=== PATIENT | male | born 1970 | race Caucasian/White ===

== ENCOUNTER → 2016-05-28 | Outpatient (CLI) | payer MEDICARE, OTHER | END | disposition home or self-care (01) | LOC: LABPRL 10:00 | PROVIDERS: ATTEND Nurse Practitioner Family | DX: R19.7 Diarrhea, unspecified (principal) | CPT/HCPCS: 80299; 87324; 87328; 87329 ==

== ENCOUNTER 2016-12-18 13:32 | Inpatient (IN) | payer MEDICARE, OTHER ==
[2016-12-18] MEDS ORDERED: MORPHINE SULFATE 4 MG/ML SYRINGE IVP STA (14:18)
[2016-12-18] MEDS ORDERED: ASPIRIN 325 MG TAB PO STA (14:18)
[2016-12-18] MEDS ORDERED: ONDANSETRON 4 MG/2 ML VIAL IVP STA (14:19)
--- NOTE | 2016-12-18 15:08 | XR ---
EXAMINATION TYPE: XR chest 2V DATE OF EXAM: 12/18/2016 COMPARISON: Prior chest x-ray 09/27/2015 HISTORY: Epigastric abdominal pain TECHNIQUE: Frontal and lateral views of the chest are obtained. FINDINGS: There is no focal air space opacity, pleural effusion, or pneumothorax seen. The cardiac silhouette size is within normal limits. There is is thoracic cord stimulator in place. The osseous structures are intact. IMPRESSION: No acute cardiopulmonary process.
--- NOTE | 2016-12-18 15:10 | ED ---
Abdominal Pain HPI - General Chief Complaint: Abdominal Pain Stated Complaint: Weakness Source: EMS Mode of arrival: EMS Limitations: no limitations - History of Present Illness Initial Comments: 46-year-old male with past medical history of alcohol abuse and alcohol-induced pancreatitis presenting for evaluation of epigastric abdominal pain present over the last 2 days. He denies any radiation describes it as sharp and states his pain is 8 out of 10 he states he takes multiple medications for his baseline pain control however they have not been helpful. He states his last drink was 2 days ago and he usually has about 18 beers a day. When asked about why he stopped drinking he stated he just didn't feel like it. His withdrawal symptoms are usually just nausea, vomiting, and fatigue and denies any withdrawal induced seizures. - Related Data Home Medications Medication Instructions Recorded Confirmed Omeprazole [PriLOSEC] 20 mg PO DAILY 07/12/15 12/18/16 Aspirin EC [Ecotrin] 325 mg PO DAILY 09/27/15 12/18/16 Atorvastatin [Lipitor] 10 mg PO HS 09/27/15 12/18/16 Gabapentin [Neurontin] 300 mg PO TID 12/18/16 12/18/16 HYDROcodone/APAP 5-325MG [Flint 1 tab PO BID PRN 12/18/16 12/18/16 5-325] Tamsulosin HCl [Flomax] 0.4 mg PO DAILY 12/18/16 12/18/16 Previous Rx's Medication Instructions Recorded Folic Acid 1 mg PO DAILY #30 tablet 07/15/15 LORazepam [Ativan] 0.5 mg PO TID PRN #20 tab 07/15/15 Multivitamins, Thera [Multivitamin 1 tab PO DAILY #30 tablet 07/15/15 (formulary)] Allergies Allergy/AdvReac Type Severity Reaction Status Date / Time No Known Allergies Allergy Verified 12/18/16 13:39 Review of Systems ROS Statement: Those systems with pertinent positive or pertinent negative responses have been documented in the HPI. ROS Other: All systems not noted in ROS Statement are negative. Constitutional: Denies: fever, chills Eyes: Denies: eye pain, eye discharge ENT: Denies: ear pain, throat pain Respiratory: Denies: cough, dyspnea Cardiovascular: Denies: chest pain, palpitations Endocrine: Reports: fatigue. Denies: polydipsia, polyuria Gastrointestinal: Reports: abdominal pain, nausea. Denies: vomiting, diarrhea, constipation, hematemesis, melena, hematochezia Genitourinary: Denies: urgency, dysuria, frequency Musculoskeletal: Denies: back pain, arthralgia, myalgia Skin: Denies: rash, lesions Neurological: Denies: headache, weakness Psychiatric: Denies: anxiety, depression Hematological/Lymphatic: Denies: easy bleeding, easy bruising Past Medical History Past Medical History: GERD/Reflux, Pneumonia Additional Past Medical History / Comment(s): 07/12/15 PT presented to [facility] ER with past 3-4 days very lethargic and slow to speak and occasional slurred speech. Pt has also been confused. Family states he is an alcoholic and drinks daily. Pt states he is also having chest pain once in awhile but none on presentation. He also had N/V/D 2 weeks ago that lasted 5 days. He is admitted with clinical impression of AMS, hx ETOH abuse, hyponatremia. Other HX: KIDNEY STONES, back pain History of Any Multi-Drug Resistant Organisms: None Reported Past Surgical History: Back Surgery Additional Past Surgical History / Comment(s): bronchoscopy, BACK surgery with TITANIUM PLATES MILTON and CAGES, KIDNEY STONES removed per pt, SPINAL CORD STIMULATOR, ISMAEL KNEE ARTHROSCOPIES, PINKY FINGER RT HAND REATTATCHED Past Anesthesia/Blood Transfusion Reactions: No Reported Reaction Past Psychological History: Anxiety, Depression Smoking Status: Current every day smoker Past Alcohol Use History: Daily, Heavy Past Drug Use History: None Reported - Past Family History Father Family Medical History: Diabetes Mellitus Additional Family Medical History / Comment(s): Father is alive and in custodial. Mother Family Medical History: Dementia, Hyperlipidemia, Hypertension Additional Family Medical History / Comment(s): Mother is living. General Exam Limitations: no limitations General appearance: alert, in no apparent distress Head exam: Present: atraumatic, normocephalic, normal inspection Eye exam: Present: normal appearance, PERRL, EOMI. Absent: scleral icterus, conjunctival injection, periorbital swelling ENT exam: Present: normal exam, mucous membranes moist Neck exam: Present: normal inspection. Absent: tenderness, meningismus, lymphadenopathy Respiratory exam: Present: normal lung sounds bilaterally. Absent: respiratory distress, wheezes, rales, rhonchi, stridor Cardiovascular Exam: Present: regular rate, normal rhythm, normal heart sounds. Absent: systolic murmur, diastolic murmur, rubs, gallop, clicks GI/Abdominal exam: Present: soft, tenderness, normal bowel sounds. Absent: distended, guarding, rebound, rigid Rectal exam: Present: deferred Extremities exam: Present: normal inspection, full ROM, normal capillary refill. Absent: tenderness, pedal edema, joint swelling, calf tenderness Back exam: Present: normal inspection Neurological exam: Present: alert, oriented X3, CN II-XII intact Psychiatric exam: Present: normal affect, normal mood Skin exam: Present: warm, dry, intact, normal color. Absent: rash Course Vital Signs 12/18/16 12/18/16 12/18/16 13:34 16:36 17:30 Temperature 98.0 F 97.9 F 98.0 F Pulse Rate 71 72 75 Respiratory 16 18 16 Rate Blood Pressure 144/95 149/88 147/99 O2 Sat by Pulse 100 100 100 Oximetry Medical Decision Making - Medical Decision Making 46 yo male with pmh of alcohol abuse (18 beers/day) and alcohol induced pancreatitis presenting for evaluation of epigastric abdominal pain for the last two days that is consistent with previous pancreatitis. Last EtOH drink was 2 days ago and he believes he is going into withdrawals. Abdomen is soft and non-peritoneal without guarding, rebound, or rigidity. Tenderness to epigastric area. Remained of exam benign. Will obtain labs, ekg, cxr, and provide IVF, ASA, and pain control. Labs significant for chronic pancreatitis exacerbation, UTI, and transaminitis. Pt was reevaluated and continued to feel the same. He was informed of results and agreed with plan to admit. Discussed pt with Dr. Barragan who accepted the admission and agreed with plan of care. Admission order placed and bed request submitted. - Lab Data Result diagrams: 12/18/16 15:11 12/18/16 15:11 Lab Results 12/18/16 12/18/16 12/18/16 Range/Units 15:11 15:11 15:11 WBC 7.0 (3.8-10.6) k/uL RBC 4.27 L (4.30-5.90) m/uL Hgb 14.4 (13.0-17.5) gm/dL Hct 43.9 (39.0-53.0) % MCV 102.8 H (80.0-100.0) fL MCH 33.8 (25.0-35.0) pg MCHC 32.9 (31.0-37.0) g/dL RDW 14.1 (11.5-15.5) % Plt Count 312 (150-450) k/uL Neutrophils % 82 % Lymphocytes % 11 % Monocytes % 5 % Eosinophils % 1 % Basophils % 1 % Neutrophils # 5.7 (1.3-7.7) k/uL Lymphocytes # 0.8 L (1.0-4.8) k/uL Monocytes # 0.3 (0-1.0) k/uL Eosinophils # 0.1 (0-0.7) k/uL Basophils # 0.1 (0-0.2) k/uL Macrocytosis Slight Sodium 135 L (137-145) mmol/L Potassium 3.9 (3.5-5.1) mmol/L Chloride 102 (98-107) mmol/L Carbon Dioxide 26 (22-30) mmol/L Anion Gap 7 mmol/L BUN 5 L (9-20) mg/dL Creatinine 0.77 (0.66-1.25) mg/dL Est GFR (MDRD) Af Amer >60 (>60 ml/min/1.73 sqM) Est GFR (MDRD) Non-Af >60 (>60 ml/min/1.73 sqM) Glucose 83 (74-99) mg/dL Plasma Lactic Acid Bandar 1.2 (0.7-2.0) mmol/L Calcium 9.0 (8.4-10.2) mg/dL Total Bilirubin 1.1 (0.2-1.3) mg/dL AST 174 H (17-59) U/L ALT 108 H (21-72) U/L Alkaline Phosphatase 139 H (38-126) U/L Troponin I (0.000-0.034) ng/mL NT-Pro-B Natriuret Pep pg/mL Total Protein 6.3 (6.3-8.2) g/dL Albumin 3.1 L (3.5-5.0) g/dL Lipase 662 H (23-300) U/L Urine Color Urine Appearance (Clear) Urine pH (5.0-8.0) Ur Specific [place] (1.001-1.035) Urine Protein (Negative) Urine Glucose (UA) (Negative) Urine Ketones (Negative) Urine Blood (Negative) Urine Nitrite (Negative) Urine Bilirubin (Negative) Urine Urobilinogen (<2.0) mg/dL Ur Leukocyte Esterase (Negative) Urine RBC (0-5) /hpf Urine WBC (0-5) /hpf Urine Yeast (Budding) (None) /hpf 12/18/16 12/18/16 12/18/16 Range/Units 15:11 15:11 15:17 WBC (3.8-10.6) k/uL RBC (4.30-5.90) m/uL Hgb (13.0-17.5) gm/dL Hct (39.0-53.0) % MCV (80.0-100.0) fL MCH (25.0-35.0) pg MCHC (31.0-37.0) g/dL RDW (11.5-15.5) % Plt Count (150-450) k/uL Neutrophils % % Lymphocytes % % Monocytes % % Eosinophils % % Basophils % % Neutrophils # (1.3-7.7) k/uL Lymphocytes # (1.0-4.8) k/uL Monocytes # (0-1.0) k/uL Eosinophils # (0-0.7) k/uL Basophils # (0-0.2) k/uL Macrocytosis Sodium (137-145) mmol/L Potassium (3.5-5.1) mmol/L Chloride (98-107) mmol/L Carbon Dioxide (22-30) mmol/L Anion Gap mmol/L BUN (9-20) mg/dL Creatinine (0.66-1.25) mg/dL Est GFR (MDRD) Af Amer (>60 ml/min/1.73 sqM) Est GFR (MDRD) Non-Af (>60 ml/min/1.73 sqM) Glucose (74-99) mg/dL Plasma Lactic Acid Bandar (0.7-2.0) mmol/L Calcium (8.4-10.2) mg/dL Total Bilirubin (0.2-1.3) mg/dL AST (17-59) U/L ALT (21-72) U/L Alkaline Phosphatase (38-126) U/L Troponin I <0.012 (0.000-0.034) ng/mL NT-Pro-B Natriuret Pep 205 pg/mL Total Protein (6.3-8.2) g/dL Albumin (3.5-5.0) g/dL Lipase (23-300) U/L Urine Color Yellow Urine Appearance Cloudy (Clear) Urine pH 6.5 (5.0-8.0) Ur Specific [place] 1.007 (1.001-1.035) Urine Protein Trace H (Negative) Urine Glucose (UA) Negative (Negative) Urine Ketones Negative (Negative) Urine Blood Trace H (Negative) Urine Nitrite Negative (Negative) Urine Bilirubin Negative (Negative) Urine Urobilinogen 2.0 (<2.0) mg/dL Ur Leukocyte Esterase Large H (Negative) Urine RBC 8 H (0-5) /hpf Urine WBC 21 H (0-5) /hpf Urine Yeast (Budding) Many H (None) /hpf 12/18/16 15:08 EKG shows normal sinus rhythm with a ventricular rate of 79, JAC 148, QRS 76, QT /QTC 418/479. Disposition Clinical Impression: Chronic pancreatitis, Abdominal pain, UTI (urinary tract infection), Transaminitis Disposition: ADMITTED IP TO THIS [facility] Decision to Admit Reason: Admit from EC Decision Date: 12/18/16 Decision Time: 16:06
[2016-12-18 15:26] LABS: Basophils # (A) 0.1 k/uL (0-0.2); Basophils % (A) 1 %; CH 33.7; CHCM 32.9; Eosinophils # (A) 0.1 k/uL (0-0.7); Eosinophils % (A) 1 %; HCT 43.9 % (39.0-53.0); HDW 1.98; HGB 14.4 gm/dL (13.0-17.5); Luc # (Auto) 0.08; Luc % (Auto) 1; Lymphocytes # (A) 0.8 k/uL (1.0-4.8); Lymphocytes % (A) 11 %; MCH 33.8 pg (25.0-35.0); MCHC 32.9 g/dL (31.0-37.0); MCV 102.8 fL (80.0-100.0); Macrocytosis Slight; Mean Platelet Volume 7.4; Monocytes # (A) 0.3 k/uL (0-1.0); Monocytes % (A) 5 %; Neutrophils # (A) 5.7 k/uL (1.3-7.7); Neutrophils % (A) 82 %; RBC 4.27 m/uL (4.30-5.90); RDW 14.1 % (11.5-15.5); WBC (Perox) 7.35
[2016-12-18 15:33] LABS: ALT 108 U/L (21-72); AST 174 U/L (17-59); Alkaline Phosphatase 139 U/L (38-126); Anion Gap 7 mmol/L; Blood Urea Nitrogen 5 mg/dL (9-20); Carbon Dioxide 26 mmol/L (22-30); Chloride 102 mmol/L (98-107); Glucose 83 mg/dL (74-99); Non-African American GFR(MDRD) >60 (>60 ml/min/1.73 sqM); Potassium 3.9 mmol/L (3.5-5.1); Sodium 135 mmol/L (137-145); Total Bilirubin 1.1 mg/dL (0.2-1.3); Total Protein 6.3 g/dL (6.3-8.2)
[2016-12-18 15:40] LABS: Appearance,Urine Cloudy (Clear); Bilirubin,Urine Negative (Negative); Glucose,Urine (UA) Negative (Negative); Ketones,Urine Negative (Negative); Leukocyte Esterase,Urine Large (Negative); Nitrite,Urine Negative (Negative); PH, Urine 6.5 (5.0-8.0); Particle Count 4901; Protein,Urine Trace (Negative); RBC,Urine 8 /hpf (0-5); Specific Gravity,Urine 1.007 (1.001-1.035); UA Billing (MACRO vs. MICRO) MICRO; WBC,Urine 21 /hpf (0-5)
[2016-12-18] MEDS ORDERED: NALOXONE 0.4 MG/ML 1 ML VIAL IV PRN (16:01)
[2016-12-18] MEDS ORDERED: MORPHINE SULFATE 4 MG/ML SYRINGE IV PRN (16:01)
--- NOTE | 2016-12-18 16:55 | US ---
EXAMINATION TYPE: US gallbladder DATE OF EXAM: 12/18/2016 COMPARISON: NONE CLINICAL HISTORY: Pain. Nausea and vomitting EXAM MEASUREMENTS: Liver Length: 16.1 cm Gallbladder Wall: 0.28 cm CBD: 0.60 cm Right Kidney: 10.6 x 5.6 x 4.2 cm Exam limitations due to patient barrel chested IMPRESSION: No sonographic evidence of acute cholecystitis.
[2016-12-18] MEDS: SODIUM CHLORIDE 0.9% 1,000 ML IV SCH ×2 (17:26→23:15)
[2016-12-18] MEDS ORDERED: ALPRAZolam 0.25 MG TAB PO PRN (18:23)
[2016-12-18] MEDS ORDERED: PNEUMONIA PROTOCOL UTILIZED 1 EACH MISC PO ONE (18:23)
[2016-12-18] MEDS ORDERED: LORazepam 2 MG/ML SYRINGE IV PRN ×2 (18:37)
[2016-12-18] MEDS: THIAMINE 100 MG TAB PO SCH (18:58)
[2016-12-18] MEDS: traZODone HCL 50 MG TAB PO SCH (19:58)
[2016-12-18] MEDS: HYDROmorphone 1 MG/ML 1 ML SYRINGE IVP PRN (19:58)
[2016-12-18] MEDS: HEPARIN SODIUM,PORCINE 5,000 UNIT/ML 1 ML VIAL SQ SCH (19:58)
[2016-12-18] MEDS: GABAPENTIN 300 MG CAP PO SCH (20:45)
[2016-12-18] MEDS: ATORVASTATIN 10 MG TAB PO SCH (20:45)
[2016-12-18] MEDS ORDERED: TEMAZEPAM 15 MG CAP PO PRN (21:00)
[2016-12-18 21:23] LABS: Amylase 45 U/L (30-110)
[2016-12-19] MEDS: HYDROmorphone 1 MG/ML 1 ML SYRINGE IVP PRN ×4 (03:09→21:52)
[2016-12-19 03:22] LABS: ALT 117 U/L (21-72); AST 156 U/L (17-59); Alkaline Phosphatase 114 U/L (38-126); Anion Gap 6 mmol/L; Blood Urea Nitrogen 5 mg/dL (9-20); Calcium 8.5 mg/dL (8.4-10.2); Carbon Dioxide 23 mmol/L (22-30); Chloride 107 mmol/L (98-107); Glucose 76 mg/dL (74-99); Magnesium 1.6 mg/dL (1.6-2.3); Non-African American GFR(MDRD) >60 (>60 ml/min/1.73 sqM); Potassium 3.7 mmol/L (3.5-5.1); Sodium 136 mmol/L (137-145); Total Protein 5.4 g/dL (6.3-8.2)
[2016-12-19 03:29] LABS: Basophils # (A) 0.1 k/uL (0-0.2); Basophils % (A) 1 %; CH 33.7; CHCM 33.2; Eosinophils # (A) 0.2 k/uL (0-0.7); Eosinophils % (A) 2 %; HCT 41.3 % (39.0-53.0); HDW 2.03; HGB 13.5 gm/dL (13.0-17.5); Luc # (Auto) 0.06; Luc % (Auto) 1; Lymphocytes # (A) 1.2 k/uL (1.0-4.8); Lymphocytes % (A) 18 %; MCH 33.3 pg (25.0-35.0); MCHC 32.7 g/dL (31.0-37.0); MCV 101.7 fL (80.0-100.0); Macrocytosis Slight; Mean Platelet Volume 6.7; Monocytes # (A) 0.4 k/uL (0-1.0); Monocytes % (A) 6 %; Neutrophils # (A) 4.7 k/uL (1.3-7.7); Neutrophils % (A) 73 %; RBC 4.06 m/uL (4.30-5.90); RDW 13.3 % (11.5-15.5); WBC 6.5 k/uL (3.8-10.6); WBC (Perox) 6.45
[2016-12-19] MEDS: HEPARIN SODIUM,PORCINE 5,000 UNIT/ML 1 ML VIAL SQ SCH ×2 (08:14→21:57)
[2016-12-19] MEDS: TAMSULOSIN 0.4 MG CAP.ER.24H PO SCH (08:14)
[2016-12-19] MEDS: NICOTINE 14MG/24HR PATCH TRANSDERM SCH (08:14)
[2016-12-19] MEDS: GABAPENTIN 300 MG CAP PO SCH ×3 (08:14→21:52)
[2016-12-19] MEDS: PANTOPRAZOLE 40 MG TABLET PO SCH (08:14)
[2016-12-19] MEDS: HYDROcodone/APAP 5-325MG 1 EACH TAB PO PRN ×2 (08:19→22:42)
[2016-12-19] MEDS: LORazepam 2 MG/ML SYRINGE IV PRN ×3 (10:53→23:28)
--- NOTE | 2016-12-19 10:56 | HP ---
DATE OF ADMISSION: 12/18/16 CHIEF COMPLAINT: Abdominal pain and weakness. HISTORY OF PRESENT ILLNESS: This 46-year-old gentleman with past medical history of multiple medical problems including GERD, history of pneumonia, history of anxiety, depression, being followed by Dr. Jones in the outpatient setting also had significant history of ETOH also. The patient apparently taking two drinks according to him and less than a pack of cigarettes per day. The patient is under [facility]. The patient is complaining of epigastric abdominal pain for the last two days. The pain is sharp and lasts about 8 to 10 and increasing respiration. The patient came to [facility] ER and admitted to the hospital for further evaluation and treatment. The patient had features of acute pancreatitis. There is no history of fever, rigors or chills. No history of headache, loss of consciousness or seizure. Gallbladder ultrasound was done which showed no sonographic evidence of acute cholecystitis. Past medical history of ETOH, GERD, pneumonia, history of pancreatitis. History DJD, history of anxiety, depression. Medications prior to admission are: Home medications are: 1. [place] 5 mg b.i.d. prn 2. Lipitor 10 mg q.h.s. 3. Flomax 0.4 mg daily. 4. Prilosec 20 mg daily. 5. Multivitamins one po daily. 6. Ativan 0.5 mg t.i.d. 7. Neurontin 300 mg t.i.d. 8. Folic acid 1 mg daily. 9. Ecotrin 320 mg po daily. ALLERGIES: None. FAMILY HISTORY: History of diabetes mellitus in the family. SOCIAL HISTORY: History of alcohol. History of smoking. REVIEW OF SYSTEMS: HEENT: No diminished vision. No diminished hearing. Cardiovascular system: No angina or palpitations. Respiratory: No cough, hemoptysis. GI: As mentioned earlier. : No dysuria. Nervous system: No numbness or weakness. Allergy/Immunology: No asthma or hayfever. Musculoskeletal: As mentioned earlier. Hematology/oncology: No history of anemia. Endocrine: No history of diabetes or hypothyroidism. Constitutional: As mentioned earlier. Dermatology: Negative. Rheumatology: Negative. Psychiatry: As mentioned earlier. PHYSICAL EXAMINATION: Alert and oriented times three. Pulse 72. Blood pressure 130/80. Respiratory rate 16, temperature 97.4 degrees. Pulse ox 100 % on room air. HEENT: Conjunctivae normal. NECK: No JVD. Cardiovascular: S1 , S2 muffled. Respiratory: Breath sounds diminished at the bases. No rhonchi and no crackles. Abdomen is soft. Mild diffuse tenderness. No mass. Legs: No edema. No swelling. Nervous system: Higher functions as mentioned earlier. Moves all four limbs. No focal deficits. Lymphatics: No lymph nodes palpable in the neck, axillae and groin. Skin: No ulcer, rash or bleeding. LABS: At this time shows WBC 7, hemoglobin 14.4, sodium 135. AST 175, ALT 108. Lipase 662. UA noted. ASSESSMENT: 1. Acute abdominal pain with acute pancreatitis. 2. History of ETOH. 3. Urinary tract infection. 4. Increased AST/ALT, alcohol hepatitis. 5. History of nicotine dependence. 6. History of gastroesophageal reflux disease. 7. History of pneumonia. 8. Back pain. 9. History of anxiety/depression. 10. 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 11. History of degenerative joint disease. RECOMMENDATIONS AND DISCUSSION: Continue the current medications. Continue symptomatic treatment. Otherwise, continue with pain medications. Repeat labs. I would also recommend empiric antibiotics. Prognosis guarded because of multiple complex medical issues. Discussed at length with the patient. I would also recommend social work consultation and porter sample case team also to continue to monitor as well. I would also recommend symptomatic treatment. ETOH and smoking cessation also has been recommended. Prognosis guarded. See orders for further details. MTDD
[2016-12-19] MEDS: SODIUM CHLORIDE 0.9% 1,000 ML IV SCH ×2 (11:30→17:30)
[2016-12-19] MEDS: MULTIVITAMINS, THERA 1 EACH TAB PO SCH (12:55)
[2016-12-19] MEDS: FOLIC ACID 1 MG TAB PO SCH (12:55)
[2016-12-19] MEDS: THIAMINE 100 MG TAB PO SCH ×2 (12:55→17:30)
[2016-12-19 13:29] VITALS: BMI 24.1
--- NOTE | 2016-12-19 16:59 | P.PN ---
Subjective Date of service 12/19/2016. Personal being dictated for Dr. Barragan. Interval history: This is a 46-year-old gentleman recently released from [facility], admitted with acute pancreatitis, and multiple other medical issues. Maintained on gentle IV fluid hydration,CIWA protocol. Pancreatic enzymes improving. LFTs slowly improving. Feels better today with no nausea, vomiting or diarrhea. Asking for diet advancement. Denies chest pain, palpitations or increasing shortness of breath. Objective - Vital Signs Vital signs: Vital Signs Temp 98.9 F 12/19/16 14:41 Pulse 101 H 12/19/16 14:41 Resp 16 12/19/16 14:41 BP 99/69 12/19/16 14:41 Pulse Ox 97 12/19/16 14:41 Intake & Output 12/18/16 12/19/16 12/19/16 18:59 06:59 18:59 Intake Total 0 598 Output Total 200 1400 300 Balance -200 -1400 298 Weight 65.771 kg 65.771 kg Intake: Oral 0 598 Output: Urine 200 1400 300 Straight 200 900 Other: Voiding Method Self-Catheterization Self-Catheterization Self-Catheterization # Voids 0 # Bowel Movements 0 - Exam PHYSICAL EXAM: VITAL SIGNS: As above GENERAL: [Sitting up in bed, no acute distress] HEENT: [Pupils equal conjunctiva normal.] NECK: [Supple, no JVD] RESPIRATORY EFFORT:[ Normal] LUNGS: [Bilateral bases diminished, no wheezes rhonchi or crackles] CARDIOVASCULAR[ regular S1 and S2, no murmurs rubs or gallops, no edema] GI: [Abdomen soft, nontender, positive bowel sounds.] PSYCH: [Alert and oriented -3, mood and affect normal.] NEURO: No focal deficits - Labs CBC & Chem 7: 12/19/16 02:54 12/19/16 02:54 Labs: Abnormal Lab Results - Last 24 Hours (Table) 12/18/16 12/19/16 12/19/16 Range/Units 21:01 02:54 02:54 RBC 4.06 L (4.30-5.90) m/uL MCV 101.7 H (80.0-100.0) fL Sodium 136 L (137-145) mmol/L BUN 5 L (9-20) mg/dL AST 156 H (17-59) U/L ALT 117 H (21-72) U/L Total Protein 5.4 L (6.3-8.2) g/dL Albumin 2.6 L (3.5-5.0) g/dL Lipase 439 H 458 H (23-300) U/L Assessment and Plan Plan: 1. Acute abdominal pain with acute pancreatitis. 2. [ History of EtOH abuse]. 3. [ UTI]. 4. [ Alcoholic hepatitis]. 5. [ Gastroesophageal reflux disease]. 6. [ Ongoing nicotine dependence]. Plan: Continue on current medication regime ,monitoring and symptomatic treatment. Maintain gentle IV fluid hydration, PPI. Diet advancement as ordered. Close monitoring of LFTs, lipase with repeat labs ordered for tomorrow. Family at bedside and discussed patient's need to return to [facility] once medically cleared for discharge. Smoking and alcohol cessation readdressed. Discharge planning in progress for the next 24-48 hrs. Further recommendations to follow. The impression and plan of care has been dictated as directed. : I performed a H&P examination of this patient and discussed the same with the dictator. I agree with the dictator's note. Any additional findings/opinions/ etc. will be noted.
[2016-12-19] MEDS: ATORVASTATIN 10 MG TAB PO SCH (21:52)
[2016-12-19] MEDS: traZODone HCL 50 MG TAB PO SCH (21:52)
[2016-12-20] MEDS: LORazepam 2 MG/ML SYRINGE IV PRN (01:41)
[2016-12-20] MEDS: HYDROmorphone 1 MG/ML 1 ML SYRINGE IVP PRN ×3 (05:58→19:44)
[2016-12-20] MEDS: SODIUM CHLORIDE 0.9% 1,000 ML IV SCH ×3 (06:07→16:33)
[2016-12-20 06:29] LABS: Glucose,Whole Blood 98 mg/dL (75-99)
[2016-12-20] MEDS: HYDROcodone/APAP 5-325MG 1 EACH TAB PO PRN ×2 (08:58→21:23)
[2016-12-20] MEDS: TAMSULOSIN 0.4 MG CAP.ER.24H PO SCH (08:59)
[2016-12-20] MEDS: PANTOPRAZOLE 40 MG TABLET PO SCH (08:59)
[2016-12-20] MEDS: NICOTINE 14MG/24HR PATCH TRANSDERM SCH (08:59)
[2016-12-20] MEDS: GABAPENTIN 300 MG CAP PO SCH ×3 (08:59→21:24)
[2016-12-20] MEDS: HEPARIN SODIUM,PORCINE 5,000 UNIT/ML 1 ML VIAL SQ SCH ×2 (09:00→21:24)
[2016-12-20 10:28] LABS: ALT 96 U/L (21-72); AST 72 U/L (17-59); Alkaline Phosphatase 96 U/L (38-126); Anion Gap 7 mmol/L; Blood Urea Nitrogen <2 mg/dL (9-20); Calcium 8.2 mg/dL (8.4-10.2); Carbon Dioxide 21 mmol/L (22-30); Chloride 108 mmol/L (98-107); Glucose 106 mg/dL (74-99); Potassium 3.7 mmol/L (3.5-5.1); Sodium 136 mmol/L (137-145); Total Bilirubin 0.6 mg/dL (0.2-1.3); Total Protein 5.5 g/dL (6.3-8.2)
[2016-12-20 10:29] LABS: Non-African American GFR(MDRD) >60 (>60 ml/min/1.73 sqM)
[2016-12-20 10:43] LABS: Basophils # (A) 0.1 k/uL (0-0.2); Basophils % (A) 1 %; CH 33.1; CHCM 32.5; Eosinophils # (A) 0.2 k/uL (0-0.7); Eosinophils % (A) 3 %; HCT 41.3 % (39.0-53.0); HDW 2.06; HGB 13.7 gm/dL (13.0-17.5); Luc # (Auto) 0.08; Luc % (Auto) 1; Lymphocytes % (A) 13 %; MCH 33.8 pg (25.0-35.0); MCHC 33.1 g/dL (31.0-37.0); MCV 102.3 fL (80.0-100.0); Macrocytosis Slight; Mean Platelet Volume 6.7; Monocytes # (A) 0.4 k/uL (0-1.0); Monocytes % (A) 5 %; Neutrophils # (A) 5.8 k/uL (1.3-7.7); Neutrophils % (A) 78 %; RBC 4.04 m/uL (4.30-5.90); RDW 13.3 % (11.5-15.5); WBC 7.5 k/uL (3.8-10.6); WBC (Perox) 7.36
[2016-12-20] MEDS: FOLIC ACID 1 MG TAB PO SCH (12:10)
[2016-12-20] MEDS: MULTIVITAMINS, THERA 1 EACH TAB PO SCH (12:10)
[2016-12-20] MEDS: THIAMINE 100 MG TAB PO SCH ×2 (12:10→16:33)
[2016-12-20] MEDS: ONDANSETRON 4 MG/2 ML VIAL IVP PRN (13:11)
[2016-12-20] MEDS: traZODone HCL 50 MG TAB PO SCH (21:24)
[2016-12-20] MEDS: ATORVASTATIN 10 MG TAB PO SCH (21:24)
[2016-12-21] MEDS: HYDROmorphone 1 MG/ML 1 ML SYRINGE IVP PRN ×2 (01:38→07:55)
[2016-12-21] MEDS: HYDROcodone/APAP 5-325MG 1 EACH TAB PO PRN ×4 (03:29→21:12)
[2016-12-21] MEDS: SODIUM CHLORIDE 0.9% 1,000 ML IV SCH ×3 (06:09→18:12)
--- NOTE | 2016-12-21 07:42 | PN ---
DATE OF SERVICE: 12/20/2016 This is a 46-year-old gentleman who was admitted with acute abdominal pain, acute pancreatitis, is being closely monitored. No chest pain, no palpitation, no fever. On exam, alert and oriented x3. Pulse 89, blood pressure 130/91, respirations 20, temperature is 97.2, pulse ox 100% on room air. HEENT: Conjunctivae normal. NECK: No jugular venous distension. CARDIOVASCULAR: S1, S2, muffled. RESPIRATORY: Breath sounds diminished at the bases, no rhonchi, no crackles. ABDOMEN: Soft, mild diffuse tenderness. LEGS: No swelling, no edema. NERVOUS SYSTEM: No focal deficits. LABS: AST is 72, ALT is 96. ASSESSMENT: 1. Acute abdominal pain with acute pancreatitis. 2. History of Ethyl alcohol abuse. 3. Urinary tract infection. 4. Alcoholic hepatitis. 5. Gastroesophageal reflux disease. 6. Ongoing nicotine dependence. RECOMMENDATION: Recommend to continue with the current medication, continue with the symptomatic treatment. Otherwise, closely monitor. Guarded prognosis. Further recommendations to follow. Eventually will advance the diet and return to rehab. TITID
[2016-12-21] MEDS: TAMSULOSIN 0.4 MG CAP.ER.24H PO SCH (07:52)
[2016-12-21] MEDS: PANTOPRAZOLE 40 MG TABLET PO SCH (07:52)
[2016-12-21] MEDS: NICOTINE 14MG/24HR PATCH TRANSDERM SCH (07:53)
[2016-12-21] MEDS: GABAPENTIN 300 MG CAP PO SCH ×3 (07:53→21:12)
[2016-12-21] MEDS: HEPARIN SODIUM,PORCINE 5,000 UNIT/ML 1 ML VIAL SQ SCH ×2 (07:55→20:10)
[2016-12-21] MEDS: ONDANSETRON 4 MG/2 ML VIAL IVP PRN ×2 (08:06→18:08)
[2016-12-21 09:07] LABS: Basophils # (A) 0.1 k/uL (0-0.2); Basophils % (A) 1 %; CH 33.2; CHCM 32.8; Eosinophils # (A) 0.2 k/uL (0-0.7); Eosinophils % (A) 3 %; HCT 40.9 % (39.0-53.0); HDW 2.07; HGB 13.9 gm/dL (13.0-17.5); Luc # (Auto) 0.07; Luc % (Auto) 1; Lymphocytes # (A) 1.2 k/uL (1.0-4.8); Lymphocytes % (A) 20 %; MCH 34.5 pg (25.0-35.0); MCHC 33.9 g/dL (31.0-37.0); MCV 101.5 fL (80.0-100.0); Macrocytosis Slight; Mean Platelet Volume 7.8; Monocytes # (A) 0.5 k/uL (0-1.0); Monocytes % (A) 7 %; Neutrophils # (A) 4.2 k/uL (1.3-7.7); Neutrophils % (A) 68 %; RBC 4.03 m/uL (4.30-5.90); RDW 13.4 % (11.5-15.5); WBC 6.3 k/uL (3.8-10.6); WBC (Perox) 6.35
[2016-12-21 09:23] LABS: ALT 84 U/L (21-72); AST 48 U/L (17-59); Alkaline Phosphatase 112 U/L (38-126); Anion Gap 7 mmol/L; Blood Urea Nitrogen <2 mg/dL (9-20); Calcium 8.7 mg/dL (8.4-10.2); Carbon Dioxide 21 mmol/L (22-30); Chloride 109 mmol/L (98-107); Glucose 83 mg/dL (74-99); Non-African American GFR(MDRD) >60 (>60 ml/min/1.73 sqM); Potassium 4.1 mmol/L (3.5-5.1); Sodium 137 mmol/L (137-145); Total Bilirubin 0.6 mg/dL (0.2-1.3); Total Protein 5.6 g/dL (6.3-8.2)
[2016-12-21 10:12] LABS: Amylase 39 U/L (30-110)
[2016-12-21] MEDS ORDERED: MAGNESIUM CITRATE 296 ML BOTTLE PO PRN (10:37)
[2016-12-21] MEDS ORDERED: POLYETHYLENE GLYCOL 3350 17 GM POWD.PACK PO PRN (10:38)
[2016-12-21] MEDS: DOCUSATE 100 MG CAP PO SCH ×2 (11:44→20:11)
[2016-12-21] MEDS: THIAMINE 100 MG TAB PO SCH ×2 (12:25→18:12)
[2016-12-21] MEDS: MULTIVITAMINS, THERA 1 EACH TAB PO SCH (12:25)
[2016-12-21] MEDS: FOLIC ACID 1 MG TAB PO SCH (12:25)
[2016-12-21 16:30] VITALS: RESP 16
[2016-12-21] MEDS: traZODone HCL 50 MG TAB PO SCH (20:11)
[2016-12-21] MEDS: ATORVASTATIN 10 MG TAB PO SCH (20:11)
[2016-12-22] MEDS: HYDROcodone/APAP 5-325MG 1 EACH TAB PO PRN ×2 (02:51→09:14)
[2016-12-22] MEDS: SODIUM CHLORIDE 0.9% 1,000 ML IV SCH ×2 (05:23→07:56)
[2016-12-22] MEDS: GABAPENTIN 300 MG CAP PO SCH (07:54)
[2016-12-22] MEDS: DOCUSATE 100 MG CAP PO SCH (07:55)
[2016-12-22] MEDS: TAMSULOSIN 0.4 MG CAP.ER.24H PO SCH (07:55)
[2016-12-22] MEDS: PANTOPRAZOLE 40 MG TABLET PO SCH (07:55)
[2016-12-22] MEDS: ONDANSETRON 4 MG/2 ML VIAL IVP PRN (07:56)
[2016-12-22] MEDS: HEPARIN SODIUM,PORCINE 5,000 UNIT/ML 1 ML VIAL SQ SCH (07:56)
[2016-12-22] MEDS: NICOTINE 14MG/24HR PATCH TRANSDERM SCH (07:56)
--- NOTE | 2016-12-22 09:17 | PN ---
DATE OF SERVICE: 12/21/2016 This 46-year-old gentleman was admitted with acute abdominal pain, acute pancreatitis, is being closely monitored. Patient unable to keep anything down. The patient also necessitates pain medications as well. PAST MEDICAL HISTORY: Reviewed. PHYSICAL EXAM: Alert and oriented x3. Pulse 77, blood pressure 125/89, respirations 12, temperature 98.2, pulse ox 90% on room air. HEENT: Conjunctivae normal. NECK: No jugular venous distention. No carotid bruits. No lymph node enlargement. CARDIOVASCULAR: S1, S2. RESPIRATORY: Breath sounds diminished at the bases. No rhonchi, no crackles. ABDOMEN: Soft, nontender. LEGS: No edema, no swelling. NERVOUS SYSTEM: No focal deficits. LABS: WBC 6.3, hemoglobin 13.9. Amylase and lipase noticed. ASSESSMENT: 1. Acute abdominal pain, acute pancreatitis. 2. History of ETOH abuse. 3. Urinary tract infection. 4. Alcoholic hepatitis. 5. History of gastroesophageal reflux disease. 6. History of ongoing nicotine dependence. RECOMMENDATIONS AND DISCUSSION: I recommend to continue the current medications, continue symptomatic treatment. Will try to advance diet slowly and if the patient is able to tolerate the diet the patient could be discharged back to the rehab. Prognosis guarded. There could be chronic component of the pancreatitis also. Further recommendations to follow. MTDD
[2016-12-22 10:08] LABS: Basophils % (A) 1 %; CH 33.8; CHCM 32.8; Eosinophils # (A) 0.1 k/uL (0-0.7); Eosinophils % (A) 2 %; HCT 40.1 % (39.0-53.0); HDW 1.99; HGB 13.3 gm/dL (13.0-17.5); Luc # (Auto) 0.05; Luc % (Auto) 1; Lymphocytes # (A) 0.7 k/uL (1.0-4.8); Lymphocytes % (A) 14 %; MCH 34.3 pg (25.0-35.0); MCHC 33.1 g/dL (31.0-37.0); MCV 103.6 fL (80.0-100.0); Macrocytosis Slight; Mean Platelet Volume 8.5; Monocytes # (A) 0.3 k/uL (0-1.0); Monocytes % (A) 6 %; Neutrophils # (A) 3.8 k/uL (1.3-7.7); Neutrophils % (A) 78 %; RBC 3.87 m/uL (4.30-5.90); WBC 4.9 k/uL (3.8-10.6); WBC (Perox) 5.15
[2016-12-22 10:26] LABS: ALT 59 U/L (21-72); AST 31 U/L (17-59); Alkaline Phosphatase 89 U/L (38-126); Anion Gap 7 mmol/L; Blood Urea Nitrogen <2 mg/dL (9-20); Calcium 8.7 mg/dL (8.4-10.2); Carbon Dioxide 21 mmol/L (22-30); Chloride 106 mmol/L (98-107); Glucose 113 mg/dL (74-99); Non-African American GFR(MDRD) >60 (>60 ml/min/1.73 sqM); Potassium 4.5 mmol/L (3.5-5.1); Sodium 134 mmol/L (137-145); Total Bilirubin 0.6 mg/dL (0.2-1.3); Total Protein 5.6 g/dL (6.3-8.2)
[2016-12-22] MEDS: MULTIVITAMINS, THERA 1 EACH TAB PO SCH (12:36)
[2016-12-22] MEDS: THIAMINE 100 MG TAB PO SCH (12:36)
[2016-12-22] MEDS: FOLIC ACID 1 MG TAB PO SCH (12:37)
--- NOTE | 2016-12-22 14:23 | CDI ---
In responding to this query, please exercise your independent professional judgment. The [facility] Coding Staff and Clinical Documentation Specialists appreciate your assistance in clarifying documentation, maintaining compliance with coding guidelines, accurately documenting patients condition and capturing severity of illness. The fact that a question is asked does not imply that any particular answer is desired or expected. Communication forms are a method of clarifying documentation and are not made part of the Legal Health Record. Thank you in advance for your clarification. Last Revision, March 2015 Ulises Burns [address] [facility] [facility] [place] [address] Documentation Clarification Form Date: 12/22/2016 1:40:00 PM From: Margoth Martinez Admit Date: 12/18/2016 4:01:00 PM Patient Name: Nestor Pro Visit Number: [id number] Discharge Date: Dr. Socorro Barragan Acute pancreatitis Is in your H&P and progress notes Patient history/risk factors: Alcohol abused and alcohol-induced pancreatitis, GERD, Pancreatitis, Depression, Current every day smoker Clinical Indicators: Complains of epigastric abdominal pain for 2 days. He states his last drink was 2 days ago. He was also having chest pain. Lab findings: Amylase 45, Lipase 662, AST Radiology findings: Vital Signs: 144/95 71 16 98.0 Treatment: IV Fluids Zofran IV PRN Ativan IV PRN Monitor Labs In your professional opinion, can you please clarify Acute Pancreatitis due to? Alcohol induced Chronic (infectious) Drug induced (with or without necrosis) Recurrent (chronic) Other Unable to determine Please document in your progress notes and discharge summary in order to capture severity of illness and risk of mortality. Include clinical findings that support your diagnosis. FYI: Press F11 to launch patient chart. SAMARA
[2016-12-22 15:53] VITALS: BP 124/87; PULSE 98; TEMP 98.4
--- NOTE | 2016-12-23 12:50 | PN ---
ADDENDUM: Please add: Acute pancreatitis, possible alcohol induced. MTDD
--- NOTE | 2017-01-02 13:02 | DS ---
FINAL DIAGNOSES: 1. Acute abdominal pain. 2. Acute pancreatitis secondary to EtOH. 3. History of EtOH abuse. 4. Urinary tract infection. HISTORY OF PRESENT ILLNESS: This 46-year-old gentleman admitted with EtOH and multiple medical problems. The patient treated symptomatically and improved significantly. On exam, vitals are stable. CARDIOVASCULAR: S1 and S2 muffled. ABDOMEN: Soft. NERVOUS SYSTEM: No focal deficits. DISCHARGE ADVICE: 1. Diet is cardiac. 2. Activity limited until followup. 3. No EtOH. Medications will be: 1. Lipitor 10 mg q.h.s. 2. Ceftin 500 mg p.o. b.i.d. for 5 days. 3. Colace 100 b.i.d. 4. Folic acid 1 mg daily. 5. Neurontin 300 mg p.o. 6. [place] 5 mg b.i.d. p.r.n. 7. Ativan 0.5 mg t.i.d. 8. Multivitamin 1 p.o. daily. 9. Habitrol 14 daily. 10. Prilosec 20 mg daily. 11. Flomax 0.4 daily. 12. Thiamine 100 mg daily. 13. Desyrel 50 mg q.h.s. MTDD
== END 2016-12-22 16:13 | disposition home or self-care (01) | DRG 439 ==
LOC: EC 13:32 → INTOOBSV 16:01 → 4MS4W 16:01 → OBSVTOIN 16:01 → 4MS4W 17:22
PROVIDERS: ADMIT Hospitalist; ATTEND Hospitalist
DX: K85.20 Alcohol induced acute pancreatitis without necrosis or infection (principal); N39.0 Urinary tract infection, site not specified; G62.1 Alcoholic polyneuropathy; K70.10 Alcoholic hepatitis without ascites; F17.200 Nicotine dependence, unspecified, uncomplicated; K21.9 Gastro-esophageal reflux disease without esophagitis; K86.1 Other chronic pancreatitis; Z79.899 Other long term (current) drug therapy; Z87.01 Personal history of pneumonia (recurrent); Z87.442 Personal history of urinary calculi; Z82.49 Family history of ischemic heart disease and other diseases of the circulatory system; Z83.3 Family history of diabetes mellitus; M54.9 Dorsalgia, unspecified; Z71.41 Alcohol abuse counseling and surveillance of alcoholic; Z71.6 Tobacco abuse counseling; M19.90 Unspecified osteoarthritis, unspecified site
CPT/HCPCS: 36415; 71020; 76705; 80053; 81001; 82150; 83605; 83690; 83735; 83880; 84100; 84484; 85025; 93005; 96365; 96375; 99285

== ENCOUNTER 2017-01-19 14:04 | Emergency (ER) | payer MEDICARE, OTHER ==
[2017-01-19 14:23] VITALS: RESP 18
[2017-01-19] MEDS ORDERED: MORPHINE SULFATE 4 MG/ML SYRINGE IV STA (15:14)
[2017-01-19] MEDS ORDERED: ONDANSETRON 4 MG/2 ML VIAL IVP STA (15:14)
[2017-01-19] MEDS ORDERED: SODIUM CHLORIDE 0.9% 1,000 ML IV STA ×2 (15:14)
[2017-01-19] MEDS ORDERED: RX INFO: IV CONTRAST WAS GIVEN 1 EACH MISC MISCELLANE PRN (15:14)
--- NOTE | 2017-01-19 15:30 | ED ---
General Adult HPI - General Chief complaint: Abdominal Pain Stated complaint: ABDOMINAL PAIN Time Seen by Provider: 01/19/17 14:39 Source: patient, EMS, RN notes reviewed, old records reviewed Mode of arrival: EMS Limitations: no limitations - History of Present Illness Initial comments: This is a 38-year-old male out of the ER as appendicitis definitely has history of pancreatitis history of drug and alcohol abuse. Her yesterday progressively worse no medication for pain denies fever mild nausea no vomiting or diarrhea. No blood in his vomit, no blood in his stool. He states he has multiple hospital admissions before no prior surgery - Related Data Home Medications Medication Instructions Recorded Confirmed Omeprazole [PriLOSEC] 40 mg PO DAILY 07/12/15 01/19/17 Atorvastatin [Lipitor] 10 mg PO HS 09/27/15 01/19/17 Gabapentin [Neurontin] 300 mg PO TID 12/18/16 01/19/17 HYDROcodone/APAP 5-325MG [[place] 1 tab PO BID PRN 12/18/16 01/19/17 5-325] Tamsulosin HCl [Flomax] 0.4 mg PO DAILY 12/18/16 01/19/17 Previous Rx's Medication Instructions Recorded Folic Acid 1 mg PO DAILY #30 tablet 07/15/15 Multivitamins, Thera [Multivitamin 1 tab PO DAILY #30 tablet 07/15/15 (formulary)] Nicotine 14Mg/24Hr Patch [Habitrol] 1 patch TRANSDERM DAILY #30 patch 12/19/16 Thiamine [Vitamin B-1] 100 mg PO DAILY@1200 #30 tab 12/19/16 Docusate [Colace] 100 mg PO BID PRN #30 cap 12/22/16 LORazepam [Ativan] 0.5 mg PO TID PRN #30 tab 12/22/16 traZODone HCL [Desyrel] 50 mg PO HS #30 tab 12/22/16 Allergies Allergy/AdvReac Type Severity Reaction Status Date / Time No Known Allergies Allergy Verified 01/19/17 15:01 Review of Systems ROS Statement: Those systems with pertinent positive or pertinent negative responses have been documented in the HPI. ROS Other: All systems not noted in ROS Statement are negative. Past Medical History Past Medical History: GERD/Reflux, Pneumonia Additional Past Medical History / Comment(s): 07/12/15 PT presented to [facility] ER with past 3-4 days very lethargic and slow to speak and occasional slurred speech. Pt has also been confused. Family states he is an alcoholic and drinks daily. Pt states he is also having chest pain once in awhile but none on presentation. He also had N/V/D 2 weeks ago that lasted 5 days. He is admitted with clinical impression of AMS, hx ETOH abuse, hyponatremia. Other HX: KIDNEY STONES, back pain History of Any Multi-Drug Resistant Organisms: None Reported Past Surgical History: Back Surgery Additional Past Surgical History / Comment(s): bronchoscopy, BACK surgery with TITANIUM PLATES MILTON and CAGES, KIDNEY STONES removed per pt, SPINAL CORD STIMULATOR, ISMAEL KNEE ARTHROSCOPIES, PINKY FINGER RT HAND REATTATCHED Past Anesthesia/Blood Transfusion Reactions: No Reported Reaction Past Psychological History: Anxiety, Depression Smoking Status: Current every day smoker Past Alcohol Use History: Daily, Heavy Past Drug Use History: None Reported - Past Family History Father Family Medical History: Diabetes Mellitus Additional Family Medical History / Comment(s): Father is alive and in snf. Mother Family Medical History: Dementia, Hyperlipidemia, Hypertension Additional Family Medical History / Comment(s): Mother is living. General Exam Limitations: no limitations General appearance: alert, in no apparent distress Head exam: Present: atraumatic, normocephalic, normal inspection Eye exam: Present: normal appearance, PERRL, EOMI. Absent: scleral icterus, conjunctival injection, periorbital swelling ENT exam: Present: normal exam, mucous membranes moist Neck exam: Present: normal inspection. Absent: tenderness, meningismus, lymphadenopathy Respiratory exam: Present: normal lung sounds bilaterally. Absent: respiratory distress, wheezes, rales, rhonchi, stridor Cardiovascular Exam: Present: regular rate, normal rhythm, normal heart sounds. Absent: systolic murmur, diastolic murmur, rubs, gallop, clicks GI/Abdominal exam: Present: soft, normal bowel sounds. Absent: distended, tenderness, guarding, rebound, rigid Extremities exam: Present: normal inspection, full ROM, normal capillary refill. Absent: tenderness, pedal edema, joint swelling, calf tenderness Back exam: Present: normal inspection Neurological exam: Present: alert, oriented X3, CN II-XII intact Psychiatric exam: Present: normal affect, normal mood Skin exam: Present: warm, dry, intact, normal color. Absent: rash Course Vital Signs 01/19/17 01/19/17 14:15 17:14 Temperature 97.7 F Pulse Rate 114 H 116 H Respiratory 18 18 Rate Blood Pressure 142/80 97/54 O2 Sat by Pulse 100 100 Oximetry - Reevaluation(s) Reevaluation #1: 01/19/17 17:31 Patient's continued asked for pain medication, showing drug-seeking behavior Medical Decision Making - Medical Decision Making 46 male TFA pain which he states is related to appendicitis that has history appendicitis, patient does have history of pancreatitis but lipase is normal, CT pelvis is negative for acute disease and patient will be discharged home - Lab Data Result diagrams: 01/19/17 15:35 01/19/17 15:35 Lab Results 01/19/17 01/19/17 01/19/17 Range/Units 15:35 15:35 15:35 WBC 9.1 (3.8-10.6) k/uL RBC 3.81 L (4.30-5.90) m/uL Hgb 13.0 (13.0-17.5) gm/dL Hct 37.8 L (39.0-53.0) % MCV 99.2 (80.0-100.0) fL MCH 34.1 (25.0-35.0) pg MCHC 34.4 (31.0-37.0) g/dL RDW 14.2 (11.5-15.5) % Plt Count 292 (150-450) k/uL Neutrophils % 72 % Lymphocytes % 16 % Monocytes % 8 % Eosinophils % 1 % Basophils % 1 % Neutrophils # 6.6 (1.3-7.7) k/uL Lymphocytes # 1.5 (1.0-4.8) k/uL Monocytes # 0.8 (0-1.0) k/uL Eosinophils # 0.1 (0-0.7) k/uL Basophils # 0.1 (0-0.2) k/uL Sodium 136 L (137-145) mmol/L Potassium 3.9 (3.5-5.1) mmol/L Chloride 105 (98-107) mmol/L Carbon Dioxide 23 (22-30) mmol/L Anion Gap 8 mmol/L BUN <2 L (9-20) mg/dL Creatinine 0.62 L (0.66-1.25) mg/dL Est GFR (MDRD) Af Amer >60 (>60 ml/min/1.73 sqM) Est GFR (MDRD) Non-Af >60 (>60 ml/min/1.73 sqM) Glucose 90 (74-99) mg/dL Plasma Lactic Acid Bandar (0.7-2.0) mmol/L Calcium 8.7 (8.4-10.2) mg/dL Total Bilirubin 0.7 (0.2-1.3) mg/dL AST 32 (17-59) U/L ALT 29 (21-72) U/L Alkaline Phosphatase 100 (38-126) U/L Total Creatine Kinase 65 (55-170) U/L CK-MB (CK-2) 0.5 (0.0-2.4) ng/mL CK-MB (CK-2) Rel Index 0.8 Troponin I <0.012 (0.000-0.034) ng/mL Total Protein 6.3 (6.3-8.2) g/dL Albumin 3.1 L (3.5-5.0) g/dL Amylase 35 (30-110) U/L Lipase 88 (23-300) U/L 01/19/17 Range/Units 15:35 WBC (3.8-10.6) k/uL RBC (4.30-5.90) m/uL Hgb (13.0-17.5) gm/dL Hct (39.0-53.0) % MCV (80.0-100.0) fL MCH (25.0-35.0) pg MCHC (31.0-37.0) g/dL RDW (11.5-15.5) % Plt Count (150-450) k/uL Neutrophils % % Lymphocytes % % Monocytes % % Eosinophils % % Basophils % % Neutrophils # (1.3-7.7) k/uL Lymphocytes # (1.0-4.8) k/uL Monocytes # (0-1.0) k/uL Eosinophils # (0-0.7) k/uL Basophils # (0-0.2) k/uL Sodium (137-145) mmol/L Potassium (3.5-5.1) mmol/L Chloride (98-107) mmol/L Carbon Dioxide (22-30) mmol/L Anion Gap mmol/L BUN (9-20) mg/dL Creatinine (0.66-1.25) mg/dL Est GFR (MDRD) Af Amer (>60 ml/min/1.73 sqM) Est GFR (MDRD) Non-Af (>60 ml/min/1.73 sqM) Glucose (74-99) mg/dL Plasma Lactic Acid Bandar 1.5 (0.7-2.0) mmol/L Calcium (8.4-10.2) mg/dL Total Bilirubin (0.2-1.3) mg/dL AST (17-59) U/L ALT (21-72) U/L Alkaline Phosphatase (38-126) U/L Total Creatine Kinase (55-170) U/L CK-MB (CK-2) (0.0-2.4) ng/mL CK-MB (CK-2) Rel Index Troponin I (0.000-0.034) ng/mL Total Protein (6.3-8.2) g/dL Albumin (3.5-5.0) g/dL Amylase (30-110) U/L Lipase (23-300) U/L - Radiology Data Radiology results: report reviewed (CT head and pelvis is negative for acute disease), image reviewed Disposition Clinical Impression: Abdominal pain Disposition: HOME SELF-CARE Condition: Good Instructions: Abdominal Pain (ED) Referrals: Jessa Jones III, MD [Primary Care Provider] - 1-2 days
[2017-01-19 15:53] LABS: Basophils # (A) 0.1 k/uL (0-0.2); Basophils % (A) 1 %; CH 34.2; CHCM 34.7; Eosinophils # (A) 0.1 k/uL (0-0.7); Eosinophils % (A) 1 %; HCT 37.8 % (39.0-53.0); HDW 1.96; Luc # (Auto) 0.16; Luc % (Auto) 2; Lymphocytes # (A) 1.5 k/uL (1.0-4.8); Lymphocytes % (A) 16 %; MCH 34.1 pg (25.0-35.0); MCHC 34.4 g/dL (31.0-37.0); MCV 99.2 fL (80.0-100.0); Mean Platelet Volume 7.9; Monocytes # (A) 0.8 k/uL (0-1.0); Monocytes % (A) 8 %; Neutrophils # (A) 6.6 k/uL (1.3-7.7); Neutrophils % (A) 72 %; RBC 3.81 m/uL (4.30-5.90); RDW 14.2 % (11.5-15.5); WBC 9.1 k/uL (3.8-10.6); WBC (Perox) 9.22
[2017-01-19 16:00] LABS: ALT 29 U/L (21-72); AST 32 U/L (17-59); Alkaline Phosphatase 100 U/L (38-126); Amylase 35 U/L (30-110); Anion Gap 8 mmol/L; Blood Urea Nitrogen <2 mg/dL (9-20); Calcium 8.7 mg/dL (8.4-10.2); Carbon Dioxide 23 mmol/L (22-30); Chloride 105 mmol/L (98-107); Glucose 90 mg/dL (74-99); Non-African American GFR(MDRD) >60 (>60 ml/min/1.73 sqM); Potassium 3.9 mmol/L (3.5-5.1); Sodium 136 mmol/L (137-145); Total Bilirubin 0.7 mg/dL (0.2-1.3); Total Protein 6.3 g/dL (6.3-8.2)
[2017-01-19 16:21] LABS: Creatine Kinase 65 U/L (55-170)
[2017-01-19 16:34] LABS: Creatine Kinase MB 0.5 ng/mL (0.0-2.4); Troponin I <0.012 ng/mL (0.000-0.034)
--- NOTE | 2017-01-19 17:05 | CT ---
EXAMINATION TYPE: CT abdomen pelvis w con DATE OF EXAM: 01/19/2017 COMPARISON: NONE HISTORY: Generalized abdominal pain with nausea, vomiting and diarrhea. CT DLP: 471.00 mGycm Automated exposure control for dose reduction was used. TECHNIQUE: Helical acquisition of images was performed from the lung bases through the pelvis. CONTRAST: Performed without Oral Contrast and with IV Contrast, patient injected with 100 mL of Omnipaque 300. FINDINGS: Lung bases are clear of consolidation. There is no pleural effusion. Liver spleen pancreas appear normal. Bile ducts are not dilated. Gallbladder has normal size. There is small area of increased density in the dependent gallbladder that could be small calcified gallsto inga. There is no adrenal mass. The left kidney shows cortical thinning. There are some calcifications in t he lower pole left kidney. There is mild left-sided hydronephrosis. There is left-sided hydroureter. I see no definite ureteral calculus. The right kidney shows normal size and contour with no hydroneph rosis. There is no retroperitoneal adenopathy. There is no ascites. Bladder distends smoothly. There is no s ign of a pelvic mass. There is some atherosclerotic vascular calcification. There is multilevel poste rior lower lumbar spine surgery. There is metal artifact. There is no ascites. There is no evidence of a bowel obstruction. I see no bony destructive process. There is a few millimeter anterior subluxation of L5 in relation S1. IMPRESSION: MULTILEVEL POSTERIOR LUMBAR SPINE FUSION SURGERY AT L4 L5 S1. FIRST-DEGREE L5-S1 SPONDYLOLISTHESIS. ATHEROSCLEROTIC VASCULAR DISEASE. LEFT HYDRONEPHROSIS AND HYDROURETER WITH LEFT RENAL CORTICAL THINNING THAT COULD RELATE TO REFLUX DIS EASE OR CHRONIC OBSTRUCTION. SMALL LEFT RENAL CALCULI. POSSIBLE SMALL GALLSTONES. NORMAL APPENDIX.
[2017-01-19 17:59] VITALS: BP 110/67; PULSE 106; TEMP 98.6
== END 2017-01-19 18:00 | disposition home or self-care (01) ==
LOC: EC 14:04
DX: R10.9 Unspecified abdominal pain (principal); R11.0 Nausea; K21.9 Gastro-esophageal reflux disease without esophagitis; F17.200 Nicotine dependence, unspecified, uncomplicated; Z86.19 Personal history of other infectious and parasitic diseases; Z79.899 Other long term (current) drug therapy
CPT/HCPCS: 96361 ×3; 96374 ×2; 96375 ×2; 99285 ×2; 36415; 80053; 82150; 82550; 82553; 83605; 83690; 84484; 85025; 74177; J2270; J2405; Q9967

== ENCOUNTER 2017-01-25 07:00 | Emergency (ER) | payer MEDICARE, OTHER ==
[2017-01-25 07:13] VITALS: RESP 18
[2017-01-25] MEDS ORDERED: SODIUM CHLORIDE 0.9% 1,000 ML IV STA ×2 (07:19)
[2017-01-25] MEDS ORDERED: ONDANSETRON 4 MG/2 ML VIAL IVP STA (07:19)
[2017-01-25] MEDS ORDERED: MORPHINE SULFATE 4 MG/ML SYRINGE IV STA (07:19)
--- NOTE | 2017-01-25 07:53 | ED ---
General Adult HPI - General Chief complaint: Chest Pain Stated complaint: CHEST PAIN Time Seen by Provider: 01/25/17 07:17 Source: patient, family, RN notes reviewed, old records reviewed Mode of arrival: wheelchair Limitations: no limitations - History of Present Illness Initial comments: This is a 38-year-old male to the ER for evaluation. Patient isn't today for evaluation of chest pain, abdominal pain. History of chronic pancreatitis. No history of heart disease. Patient does smoke but has no history of high blood pressure 9 cholesterol no diabetes. Patient coming in via chest and abdominal pain. Similar ER visit earlier last week. No fevers. No travel history no sick contacts. No significant shortness of breath - Related Data Home Medications Medication Instructions Recorded Confirmed Omeprazole [PriLOSEC] 40 mg PO DAILY 07/12/15 01/25/17 Atorvastatin [Lipitor] 10 mg PO HS 09/27/15 01/25/17 Gabapentin [Neurontin] 300 mg PO TID 12/18/16 01/25/17 HYDROcodone/APAP 5-325MG [[place] 1 tab PO BID PRN 12/18/16 01/25/17 5-325] Tamsulosin HCl [Flomax] 0.4 mg PO DAILY 12/18/16 01/25/17 Previous Rx's Medication Instructions Recorded Folic Acid 1 mg PO DAILY #30 tablet 07/15/15 Nicotine 14Mg/24Hr Patch [Habitrol] 1 patch TRANSDERM DAILY #30 patch 12/19/16 Thiamine [Vitamin B-1] 100 mg PO DAILY@1200 #30 tab 12/19/16 Docusate [Colace] 100 mg PO BID PRN #30 cap 12/22/16 LORazepam [Ativan] 0.5 mg PO TID PRN #30 tab 12/22/16 traZODone HCL [Desyrel] 50 mg PO HS #30 tab 12/22/16 Allergies Allergy/AdvReac Type Severity Reaction Status Date / Time No Known Allergies Allergy Verified 01/25/17 07:51 Review of Systems ROS Statement: Those systems with pertinent positive or pertinent negative responses have been documented in the HPI. ROS Other: All systems not noted in ROS Statement are negative. Past Medical History Past Medical History: GERD/Reflux, Pneumonia Additional Past Medical History / Comment(s): 07/12/15 PT presented to [facility] ER with past 3-4 days very lethargic and slow to speak and occasional slurred speech. Pt has also been confused. Family states he is an alcoholic and drinks daily. Pt states he is also having chest pain once in awhile but none on presentation. He also had N/V/D 2 weeks ago that lasted 5 days. He is admitted with clinical impression of AMS, hx ETOH abuse, hyponatremia. Other HX: KIDNEY STONES, back pain History of Any Multi-Drug Resistant Organisms: None Reported Past Surgical History: Back Surgery Additional Past Surgical History / Comment(s): bronchoscopy, BACK surgery with TITANIUM PLATES MILTON and CAGES, KIDNEY STONES removed per pt, SPINAL CORD STIMULATOR, ISMAEL KNEE ARTHROSCOPIES, PINKY FINGER RT HAND REATTATCHED Past Anesthesia/Blood Transfusion Reactions: No Reported Reaction Past Psychological History: Anxiety, Depression Smoking Status: Current every day smoker Past Alcohol Use History: Daily, Heavy Past Drug Use History: Marijuana - Past Family History Father Family Medical History: Diabetes Mellitus Additional Family Medical History / Comment(s): Father is alive and in [facility]. Mother Family Medical History: Dementia, Hyperlipidemia, Hypertension Additional Family Medical History / Comment(s): Mother is living. General Exam Limitations: no limitations General appearance: alert, in no apparent distress Head exam: Present: atraumatic, normocephalic, normal inspection Eye exam: Present: normal appearance, PERRL, EOMI. Absent: scleral icterus, conjunctival injection, periorbital swelling ENT exam: Present: normal exam, mucous membranes moist Neck exam: Present: normal inspection. Absent: tenderness, meningismus, lymphadenopathy Respiratory exam: Present: normal lung sounds bilaterally. Absent: respiratory distress, wheezes, rales, rhonchi, stridor Cardiovascular Exam: Present: regular rate, normal rhythm, normal heart sounds. Absent: systolic murmur, diastolic murmur, rubs, gallop, clicks GI/Abdominal exam: Present: soft, normal bowel sounds. Absent: distended, tenderness, guarding, rebound, rigid Extremities exam: Present: normal inspection, full ROM, normal capillary refill. Absent: tenderness, pedal edema, joint swelling, calf tenderness Back exam: Present: normal inspection Neurological exam: Present: alert, oriented X3, CN II-XII intact Psychiatric exam: Present: normal affect, normal mood Skin exam: Present: warm, dry, intact, normal color. Absent: rash Course Vital Signs 01/25/17 01/25/17 01/25/17 07:10 07:48 08:23 Temperature 98.1 F Pulse Rate 84 75 92 Respiratory 18 18 18 Rate Blood Pressure 163/97 163/93 155/91 O2 Sat by Pulse 100 100 100 Oximetry - Reevaluation(s) Reevaluation #1: 01/25/17 08:38 Medical records thoroughly reviewed including prior ER visit, recent hospital admissions which included cardiac evaluation EKG Findings - EKG Comments: EKG Findings:: EKG shows NSR rate of 75 WA 134 QRS 74 QTc 453 Medical Decision Making - Medical Decision Making 46 male to the ER for evaluation of chest pain pancreatitis. Patient's EKG hardens and a normal lipase is normal. Patient has had prior hospital admissions for chest pain or is achieved CTA which was negative, stress test negative, patient does have history of recent ER visit for similar symptoms, no change in testing since. Patient will be discharged home to follow-up with cardiology - Lab Data Result diagrams: 01/25/17 07:40 01/25/17 07:40 Lab Results 01/25/17 01/25/17 01/25/17 Range/Units 07:40 07:40 07:40 WBC 8.6 (3.8-10.6) k/uL RBC 4.08 L (4.30-5.90) m/uL Hgb 13.7 (13.0-17.5) gm/dL Hct 40.6 (39.0-53.0) % MCV 99.5 (80.0-100.0) fL MCH 33.7 (25.0-35.0) pg MCHC 33.8 (31.0-37.0) g/dL RDW 14.4 (11.5-15.5) % Plt Count 411 (150-450) k/uL Neutrophils % 79 % Lymphocytes % 14 % Monocytes % 4 % Eosinophils % 1 % Basophils % 0 % Neutrophils # 6.8 (1.3-7.7) k/uL Lymphocytes # 1.2 (1.0-4.8) k/uL Monocytes # 0.4 (0-1.0) k/uL Eosinophils # 0.1 (0-0.7) k/uL Basophils # 0.0 (0-0.2) k/uL Macrocytosis Slight PT 10.2 (9.0-12.0) sec INR 1.0 (<1.2) APTT 23.7 (22.0-30.0) sec Sodium 132 L (137-145) mmol/L Potassium 4.6 (3.5-5.1) mmol/L Chloride 102 (98-107) mmol/L Carbon Dioxide 21 L (22-30) mmol/L Anion Gap 9 mmol/L BUN <2 L (9-20) mg/dL Creatinine 0.58 L (0.66-1.25) mg/dL Est GFR (MDRD) Af Amer >60 (>60 ml/min/1.73 sqM) Est GFR (MDRD) Non-Af >60 (>60 ml/min/1.73 sqM) Glucose 95 (74-99) mg/dL Calcium 9.2 (8.4-10.2) mg/dL Total Bilirubin 0.7 (0.2-1.3) mg/dL AST 27 (17-59) U/L ALT 27 (21-72) U/L Alkaline Phosphatase 113 (38-126) U/L Total Protein 6.8 (6.3-8.2) g/dL Albumin 3.5 (3.5-5.0) g/dL Amylase 40 (30-110) U/L Lipase 131 (23-300) U/L Disposition Clinical Impression: Chronic pancreatitis, History of alcohol use, Atypical chest pain Disposition: HOME SELF-CARE Condition: Good Instructions: Chest Pain (ED) Referrals: Jessa Jones III, MD [Primary Care Provider] - 1-2 days
[2017-01-25 08:00] LABS: Basophils % (A) 0 %; CH 35.1; CHCM 35.4; Eosinophils # (A) 0.1 k/uL (0-0.7); Eosinophils % (A) 1 %; HCT 40.6 % (39.0-53.0); HDW 2.02; HGB 13.7 gm/dL (13.0-17.5); Luc # (Auto) 0.09; Luc % (Auto) 1; Lymphocytes # (A) 1.2 k/uL (1.0-4.8); Lymphocytes % (A) 14 %; MCH 33.7 pg (25.0-35.0); MCHC 33.8 g/dL (31.0-37.0); MCV 99.5 fL (80.0-100.0); Macrocytosis Slight; Mean Platelet Volume 7.9; Monocytes # (A) 0.4 k/uL (0-1.0); Monocytes % (A) 4 %; Neutrophils # (A) 6.8 k/uL (1.3-7.7); Neutrophils % (A) 79 %; RBC 4.08 m/uL (4.30-5.90); RDW 14.4 % (11.5-15.5); WBC 8.6 k/uL (3.8-10.6); WBC (Perox) 8.73
[2017-01-25 08:15] LABS: Partial Thromboplastin Time 23.7 sec (22.0-30.0); Prothrombin Time 10.2 sec (9.0-12.0)
[2017-01-25 08:17] LABS: ALT 27 U/L (21-72); AST 27 U/L (17-59); Alkaline Phosphatase 113 U/L (38-126); Amylase 40 U/L (30-110); Anion Gap 9 mmol/L; Blood Urea Nitrogen <2 mg/dL (9-20); Calcium 9.2 mg/dL (8.4-10.2); Carbon Dioxide 21 mmol/L (22-30); Chloride 102 mmol/L (98-107); Glucose 95 mg/dL (74-99); Non-African American GFR(MDRD) >60 (>60 ml/min/1.73 sqM); Potassium 4.6 mmol/L (3.5-5.1); Sodium 132 mmol/L (137-145); Total Bilirubin 0.7 mg/dL (0.2-1.3); Total Protein 6.8 g/dL (6.3-8.2)
[2017-01-25 08:23] LABS: Creatine Kinase 51 U/L (55-170)
[2017-01-25 08:36] LABS: Creatine Kinase MB 0.9 ng/mL (0.0-2.4); Troponin I <0.012 ng/mL (0.000-0.034)
[2017-01-25 08:38] VITALS: BP 150/90; PULSE 95; TEMP 98.7
== END 2017-01-25 08:50 | disposition home or self-care (01) ==
LOC: EC 07:00
DX: K86.1 Other chronic pancreatitis (principal); R07.89 Other chest pain; F10.21 Alcohol dependence, in remission; K21.9 Gastro-esophageal reflux disease without esophagitis; F17.200 Nicotine dependence, unspecified, uncomplicated; Z79.899 Other long term (current) drug therapy
CPT/HCPCS: 36415; 93005; 80053; 82150; 82550; 82553; 83690; 84484; 85025; 85610; 85730; 99285; 96374; 96375; 96361; J2270; J2405

== ENCOUNTER → 2017-03-28 | Outpatient (CLI) | payer MEDICARE, OTHER ==
--- NOTE | 2017-03-28 18:00 | CT ---
EXAMINATION TYPE: CT angio chest DATE OF EXAM: 03/28/2017 5:40 PM COMPARISON: 09/07/2014 HISTORY: Chest pain and difficulty breathing. CT DLP: 501.00 mGycm Automated exposure control for dose reduction was used. CONTRAST: CTA scan of the thorax is performed with IV Contrast, patient injected with 85 mL of Omnipaque 350, p ulmonary embolism protocol. There are 3-D post processed images.. FINDINGS: Mediastinum is normal. Heart size is normal. There is no pericardial effusion. There are no hilar mas ses. I see no filling defects in the pulmonary arteries. There is no sign of aortic aneurysm or dissection . There is no pleural effusion. There is neurostimulator metal artifact in the thoracic spine. There is cortical thinning in the left kidney compared to the right. There is partial visualization of the left kidney with left-sided hydronephrosis. IMPRESSION: NO EVIDENCE OF PULMONARY EMBOLISM. THERE IS CHRONIC LEFT-SIDED HYDRONEPHROSIS AND LEFT RENAL CORTICAL ATROPHY THAT IS UNCHANGED COMPARED TO 01/19/2017 CT SCAN.
== END | disposition home or self-care (01) ==
LOC: RADCTMAIN 16:36
PROVIDERS: ATTEND Family Medicine
DX: R07.1 Chest pain on breathing (principal); R06.02 Shortness of breath; R06.2 Wheezing
CPT/HCPCS: 71275; Q9967

== ENCOUNTER 2017-04-04 05:23 | Emergency (ER) | payer MEDICARE, OTHER ==
[2017-04-04] MEDS ORDERED: SODIUM CHLORIDE 0.9% 1,000 ML IV STA ×3 (05:29→06:31)
[2017-04-04] MEDS ORDERED: ONDANSETRON 4 MG/2 ML VIAL IVP STA (05:29)
[2017-04-04] MEDS ORDERED: MORPHINE SULFATE 10 MG/ML SYRINGE IV STA (05:29)
--- NOTE | 2017-04-04 05:59 | XR ---
EXAM: XR Chest, 2 Views CLINICAL HISTORY: Reason: Chest Pain TECHNIQUE: Frontal and lateral views of the chest. COMPARISON: 02/22/17 FINDINGS: Lungs: Unremarkable. No consolidation. Pleural space: Unremarkable. No pneumothorax. Heart: Unremarkable. No cardiomegaly. Mediastinum: Unremarkable. Bones/joints: Intraspinal stimulator is again noted. IMPRESSION: No acute findings or change
[2017-04-04 06:00] LABS: ALT 89 U/L (21-72); AST 116 U/L (17-59); Alkaline Phosphatase 220 U/L (38-126); Anion Gap 7 mmol/L; Blood Urea Nitrogen 3 mg/dL (9-20); Calcium 9.2 mg/dL (8.4-10.2); Carbon Dioxide 24 mmol/L (22-30); Chloride 106 mmol/L (98-107); Glucose 89 mg/dL (74-99); Magnesium 1.7 mg/dL (1.6-2.3); Non-African American GFR(MDRD) >60 (>60 ml/min/1.73 sqM); Potassium 4.3 mmol/L (3.5-5.1); Sodium 137 mmol/L (137-145); Total Bilirubin 0.5 mg/dL (0.2-1.3); Total Protein 6.4 g/dL (6.3-8.2)
[2017-04-04 06:02] LABS: Basophils % (A) 0 %; CH 33.5; CHCM 32.8; Eosinophils # (A) 0.1 k/uL (0-0.7); Eosinophils % (A) 1 %; HCT 44.2 % (39.0-53.0); HGB 14.2 gm/dL (13.0-17.5); Luc # (Auto) 0.12; Luc % (Auto) 1; Lymphocytes # (A) 1.6 k/uL (1.0-4.8); Lymphocytes % (A) 18 %; MCH 32.9 pg (25.0-35.0); MCHC 32.1 g/dL (31.0-37.0); MCV 102.4 fL (80.0-100.0); Macrocytosis Slight; Mean Platelet Volume 6.6; Monocytes # (A) 0.6 k/uL (0-1.0); Monocytes % (A) 6 %; Neutrophils # (A) 6.7 k/uL (1.3-7.7); Neutrophils % (A) 74 %; RBC 4.32 m/uL (4.30-5.90); RDW 13.3 % (11.5-15.5)
[2017-04-04 06:09] LABS: Creatine Kinase 92 U/L (55-170)
[2017-04-04 06:22] LABS: Creatine Kinase MB 1.4 ng/mL (0.0-2.4); Troponin I <0.012 ng/mL (0.000-0.034)
[2017-04-04] MEDS ORDERED: RX INFO: IV CONTRAST WAS GIVEN 1 EACH MISC MISCELLANE PRN (06:29)
[2017-04-04] MEDS ORDERED: MORPHINE SULFATE 10 MG/ML SYRINGE IVP STA (06:31)
[2017-04-04] MEDS ORDERED: MORPHINE SULFATE 10 MG/ML SYRINGE IVP PRN (06:31)
[2017-04-04] MEDS ORDERED: HYDROmorphone 2 MG/ML 1 ML SYRINGE IVP STA (06:36)
--- NOTE | 2017-04-04 06:37 | ED ---
General Adult HPI <Wisam Zarate - Last Filed: 04/04/17 08:42> - General Source: patient, family, RN notes reviewed, old records reviewed Mode of arrival: wheelchair Limitations: no limitations <Grayson Cervantes - Last Filed: 04/04/17 23:44> - General Chief complaint: Chest Pain Stated complaint: Chest Pain Time Seen by Provider: 04/04/17 05:28 - History of Present Illness Initial comments: This is a 38-year-old male to the ER for evaluation. This patient was a further regarding chest pain, chest. Abdominal pain. Patient has history of panotitis severe, history of alcoholism. Patient does have a history of chronic pain. Patient states this is different than his normal chronic pain normal is pancreatitis pain is severe in his chest. Patient also complains of shortness of breath. Denies fever. Recently patient has gallbladder removed about 2 weeks ago. No recent travel history or sick contacts otherwise. ( Grayson Cervantes) - Related Data Home Medications Medication Instructions Recorded Confirmed Atorvastatin [Lipitor] 10 mg PO HS 09/27/15 04/04/17 Gabapentin [Neurontin] 300 mg PO TID 12/18/16 04/04/17 Tamsulosin HCl [Flomax] 0.4 mg PO DAILY 12/18/16 04/04/17 traMADol HCL [Ultram] 50 mg PO Q6H PRN 02/22/17 04/04/17 Albuterol Inhaler [Ventolin Hfa 2 puff INHALATION RT-Q4H PRN 03/01/17 04/04/17 Inhaler] Multivitamins, Thera [Multivitamin 1 tab PO DAILY 03/01/17 04/04/17 (formulary)] Budesonide/Formoterol Fumarate 1 puff INHALATION RT-BID 04/04/17 04/04/17 [Symbicort 80-4.5 Mcg Inhaler] Cholecalciferol (Vitamin D3) 2,000 unit PO DAILY 04/04/17 04/04/17 [Vitamin D3] Omeprazole [PriLOSEC] 20 mg PO AC-BID PRN 04/04/17 04/04/17 Ondansetron Odt [Zofran Odt] 4 mg PO Q8HR PRN 04/04/17 04/04/17 traZODone HCL 50 mg PO HS 04/04/17 04/04/17 Previous Rx's Medication Instructions Recorded Folic Acid 1 mg PO DAILY #30 tablet 07/15/15 LORazepam [Ativan] 0.5 mg PO TID PRN #30 tab 12/22/16 Allergies Allergy/AdvReac Type Severity Reaction Status Date / Time No Known Allergies Allergy Verified 04/04/17 16:32 Review of Systems ROS Other: All systems not noted in ROS Statement are negative. <Wisam Zarate - Last Filed: 04/04/17 08:42> ROS Other: All systems not noted in ROS Statement are negative. <Grayson Cervantes - Last Filed: 04/04/17 23:44> ROS Statement: Those systems with pertinent positive or pertinent negative responses have been documented in the HPI. Past Medical History Past Medical History: GERD/Reflux, Pneumonia Additional Past Medical History / Comment(s): KIDNEY STONES, back pain, gallstones History of Any Multi-Drug Resistant Organisms: None Reported Past Surgical History: Back Surgery, Cholecystectomy Additional Past Surgical History / Comment(s): Bronchoscopy, BACK surgery with TITANIUM PLATES MILTON and CAGES, KIDNEY STONES removed per pt, SPINAL CORD STIMULATOR, ISMAEL KNEE ARTHROSCOPIES, PINKY FINGER RT HAND REATTATCHED Past Anesthesia/Blood Transfusion Reactions: No Reported Reaction Past Psychological History: Anxiety, Depression Smoking Status: Current every day smoker Past Alcohol Use History: Daily Past Drug Use History: Marijuana - Past Family History Father Family Medical History: Diabetes Mellitus Additional Family Medical History / Comment(s): Mother Family Medical History: Dementia, Hyperlipidemia, Hypertension Additional Family Medical History / Comment(s): Mother is living. <Grayson Cervantes - Last Filed: 04/04/17 23:44> General Exam Limitations: no limitations General appearance: alert, in no apparent distress, anxious Head exam: Present: atraumatic, normocephalic, normal inspection Eye exam: Present: normal appearance, PERRL, EOMI. Absent: scleral icterus, conjunctival injection, periorbital swelling ENT exam: Present: normal exam, mucous membranes moist Neck exam: Present: normal inspection. Absent: tenderness, meningismus, lymphadenopathy Respiratory exam: Present: normal lung sounds bilaterally. Absent: respiratory distress, wheezes, rales, rhonchi, stridor Cardiovascular Exam: Present: regular rate, normal rhythm, normal heart sounds. Absent: systolic murmur, diastolic murmur, rubs, gallop, clicks GI/Abdominal exam: Present: distended, tenderness, normal bowel sounds. Absent : guarding, rebound, rigid Extremities exam: Present: normal inspection, full ROM, normal capillary refill. Absent: tenderness, pedal edema, joint swelling, calf tenderness Back exam: Present: normal inspection Neurological exam: Present: alert, oriented X3, CN II-XII intact Psychiatric exam: Present: normal affect, normal mood Skin exam: Present: warm, dry, intact, normal color. Absent: rash <Grayson Cervantes - Last Filed: 04/04/17 23:44> Course <Wisam Zarate - Last Filed: 04/04/17 08:42> <Grayson Cervantes - Last Filed: 04/04/17 23:44> Vital Signs 04/04/17 04/04/17 04/04/17 05:27 06:37 07:20 Temperature 98 F Pulse Rate 71 98 109 H Respiratory 18 18 20 Rate Blood Pressure 161/91 168/97 126/84 O2 Sat by Pulse 97 97 98 Oximetry 04/04/17 09:20 Temperature 98.1 F Pulse Rate 102 H Respiratory 18 Rate Blood Pressure 143/89 O2 Sat by Pulse 98 Oximetry - Reevaluation(s) Reevaluation #1: 04/04/17 06:37 medical records reviewed including prior surgical history Patient is requesting more pain medication after 2 doses of pain medication patient does feel improved (Grayson Cervantes) EKG Findings - EKG Comments: EKG Findings:: EKG shows normal sinus rhythm rate 95, WA 140, QRS 76, QTc 477 <Grayson Cervantes - Last Filed: 04/04/17 23:44> Medical Decision Making - Lab Data Result diagrams: 04/04/17 05:37 04/04/17 05:37 <Wisam Zarate - Last Filed: 04/04/17 08:42> - Lab Data Result diagrams: 04/04/17 05:37 04/04/17 05:37 - Radiology Data Radiology results: report reviewed (CT aNGO chest, CT abdomen and pelvis is negative for postop complication, negative for PE), image reviewed <Grayson Cervantes - Last Filed: 04/04/17 23:44> - Medical Decision Making 46 male the ER for evaluation of chest pain abdominal pain. Significant for significant for chest pain any. Patient's lab work and CT scans are normal. Patient's pain is wanted and for this point. Patient can be discharged home ( Grayson Cervantes) - Lab Data Lab Results 04/04/17 04/04/17 04/04/17 Range/Units 05:37 05:37 05:37 WBC 9.0 (3.8-10.6) k/uL RBC 4.32 (4.30-5.90) m/uL Hgb 14.2 (13.0-17.5) gm/dL Hct 44.2 (39.0-53.0) % MCV 102.4 H (80.0-100.0) fL MCH 32.9 (25.0-35.0) pg MCHC 32.1 (31.0-37.0) g/dL RDW 13.3 (11.5-15.5) % Plt Count 470 H (150-450) k/uL Neutrophils % 74 % Lymphocytes % 18 % Monocytes % 6 % Eosinophils % 1 % Basophils % 0 % Neutrophils # 6.7 (1.3-7.7) k/uL Lymphocytes # 1.6 (1.0-4.8) k/uL Monocytes # 0.6 (0-1.0) k/uL Eosinophils # 0.1 (0-0.7) k/uL Basophils # 0.0 (0-0.2) k/uL Macrocytosis Slight PT (9.0-12.0) sec INR (<1.2) APTT (22.0-30.0) sec Sodium 137 (137-145) mmol/L Potassium 4.3 (3.5-5.1) mmol/L Chloride 106 (98-107) mmol/L Carbon Dioxide 24 (22-30) mmol/L Anion Gap 7 mmol/L BUN 3 L (9-20) mg/dL Creatinine 0.58 L (0.66-1.25) mg/dL Est GFR (MDRD) Af Amer >60 (>60 ml/min/1.73 sqM) Est GFR (MDRD) Non-Af >60 (>60 ml/min/1.73 sqM) Glucose 89 (74-99) mg/dL Calcium 9.2 (8.4-10.2) mg/dL Magnesium 1.7 (1.6-2.3) mg/dL Total Bilirubin 0.5 (0.2-1.3) mg/dL AST 116 H (17-59) U/L ALT 89 H (21-72) U/L Alkaline Phosphatase 220 H (38-126) U/L Total Creatine Kinase 92 (55-170) U/L CK-MB (CK-2) 1.4 (0.0-2.4) ng/mL CK-MB (CK-2) Rel Index 1.5 Troponin I <0.012 (0.000-0.034) ng/mL Total Protein 6.4 (6.3-8.2) g/dL Albumin 3.1 L (3.5-5.0) g/dL Lipase 96 (23-300) U/L 04/04/17 Range/Units 05:37 WBC (3.8-10.6) k/uL RBC (4.30-5.90) m/uL Hgb (13.0-17.5) gm/dL Hct (39.0-53.0) % MCV (80.0-100.0) fL MCH (25.0-35.0) pg MCHC (31.0-37.0) g/dL RDW (11.5-15.5) % Plt Count (150-450) k/uL Neutrophils % % Lymphocytes % % Monocytes % % Eosinophils % % Basophils % % Neutrophils # (1.3-7.7) k/uL Lymphocytes # (1.0-4.8) k/uL Monocytes # (0-1.0) k/uL Eosinophils # (0-0.7) k/uL Basophils # (0-0.2) k/uL Macrocytosis PT 10.4 (9.0-12.0) sec INR 1.0 (<1.2) APTT 23.4 (22.0-30.0) sec Sodium (137-145) mmol/L Potassium (3.5-5.1) mmol/L Chloride (98-107) mmol/L Carbon Dioxide (22-30) mmol/L Anion Gap mmol/L BUN (9-20) mg/dL Creatinine (0.66-1.25) mg/dL Est GFR (MDRD) Af Amer (>60 ml/min/1.73 sqM) Est GFR (MDRD) Non-Af (>60 ml/min/1.73 sqM) Glucose (74-99) mg/dL Calcium (8.4-10.2) mg/dL Magnesium (1.6-2.3) mg/dL Total Bilirubin (0.2-1.3) mg/dL AST (17-59) U/L ALT (21-72) U/L Alkaline Phosphatase (38-126) U/L Total Creatine Kinase (55-170) U/L CK-MB (CK-2) (0.0-2.4) ng/mL CK-MB (CK-2) Rel Index Troponin I (0.000-0.034) ng/mL Total Protein (6.3-8.2) g/dL Albumin (3.5-5.0) g/dL Lipase (23-300) U/L Disposition <Wisam Zarate - Last Filed: 04/04/17 08:42> <Grayson Cervantes - Last Filed: 04/04/17 23:44> Clinical Impression: Atypical chest pain Disposition: HOME SELF-CARE Condition: Good Instructions: Chest Pain (ED) Referrals: Jessa Jones III, MD [Primary Care Provider] - 1-2 days
[2017-04-04 06:47] LABS: Partial Thromboplastin Time 23.4 sec (22.0-30.0); Prothrombin Time 10.4 sec (9.0-12.0)
--- NOTE | 2017-04-04 07:53 | CT ---
EXAM: CT Angiography Chest With Intravenous Contrast CLINICAL HISTORY: Reason: Pain TECHNIQUE: Axial computed tomographic angiography images of the chest with intravenous contrast using pulmonary embolism protocol. CTDI is 37 mGy and DLP is 1485.6 mGy-cm. This CT exam was performed using one or more of the following dose reduction techniques: automated exposure control, adjustment of the mA and/or kV according to patient size, and/or use of iterative reconstruction technique. MIP reconstructed images were created and reviewed. COMPARISON: 03/28/17 FINDINGS: Pulmonary arteries: No filling defect in the pulmonary arteries to suggest thrombus. Aorta: Mildly tortuous calcified thoracic aorta. No thoracic aortic aneurysm. Lungs: Faint nodular opacity in the posterior medial right lower lobe (image 82 series 3), likely inflammatory/infectious process. Mild dependent atelectasis. Pleural space: No pleural effusion. Small hiatal hernia. No pneumothorax. Heart: No pericardial effusion. No evidence of RV dysfunction. Bones/joints: No acute fracture. No dislocation. Soft tissues: Unremarkable. Lymph nodes: Unremarkable. No enlarged lymph nodes. IMPRESSION: Negative for pulmonary embolism. Faint nodular opacity in the right lower lobe, probable focal inflammatory/infectious process. Follow-up as indicated.
--- NOTE | 2017-04-04 08:04 | CT ---
EXAM: CT Abdomen and Pelvis With Intravenous Contrast CLINICAL HISTORY: Reason: Pain TECHNIQUE: Axial computed tomography images of the abdomen and pelvis with intravenous contrast. CTDI is 23.4 mGy and DLP is 1485.6 mGy-cm. This CT exam was performed using one or more of the following dose reduction techniques: automated exposure control, adjustment of the mA and/or kV according to patient size, and/or use of iterative reconstruction technique. COMPARISON: 01/19/17 FINDINGS: Lower thorax: Small hiatal hernia. ABDOMEN: Liver: Unremarkable. No mass. Gallbladder and bile ducts: Mild intrahepatic ductal dilatation which may reflect prior cholecystectomy. Status post cholecystectomy. Pancreas: Well-circumscribed low density lesion in the head/body of the pancreas measuring 1.7 x 1.5 cm. This appear increased in size. Previous measurement was 1.0 x 0.9 cm. Spleen: Unremarkable. No splenomegaly. Adrenals: Unremarkable. No mass. Kidneys and ureters: Redemonstration of thinning of the renal cortex over the upper to mid left kidney. Severe hydronephrosis. This appears worse compared to the prior study. There is ureteral dilatation with thickening of the urothelium which is seen to the UVJ. Recommend clinical correlation for underlying structure or mass/abnormality. Stomach and bowel: Redundant sigmoid colon. Thickening of the transverse colon and hepatic flexure which may reflect developing inflammatory/infectious colitis. No obstruction. Appendix: No findings to suggest acute appendicitis. PELVIS: Bladder: Moderately distended bladder. Reproductive: Unremarkable as visualized. ABDOMEN and PELVIS: Intraperitoneal space: Unremarkable. No free air. No significant fluid collection. Bones/joints: Postsurgical changes status post fusion from L4-S1. Again noted is spondylolisthesis at L5-S1, unchanged. No acute fracture. No dislocation. Soft tissues: Unremarkable. Vasculature: Unremarkable. No abdominal aortic aneurysm. Lymph nodes: Small retroperitoneal lymph nodes, nonspecific and likely reactive. IMPRESSION: Nonspecific bowel gas pattern with findings as described which may represent focal inflammatory/infectious colitis. Recommend clinical correlation and follow-up as indicated No free fluid or free air. Severe hydronephrosis and ureteral dilatation with thickening of the urothelium. Recommend follow-up to exclude underlying mass/abnormality versus stricture. Interval increase in cystic lesion in the head/body of the pancreas. Additional findings as noted above.
[2017-04-04 09:29] VITALS: BP 143/89; PULSE 102; RESP 18; TEMP 98.1
== END 2017-04-04 09:29 | disposition home or self-care (01) ==
LOC: EC 05:23
DX: R07.89 Other chest pain (principal); R06.02 Shortness of breath; R10.9 Unspecified abdominal pain; K21.9 Gastro-esophageal reflux disease without esophagitis; F41.9 Anxiety disorder, unspecified; F32.9 Major depressive disorder, single episode, unspecified; F17.200 Nicotine dependence, unspecified, uncomplicated; Z87.442 Personal history of urinary calculi; Z90.49 Acquired absence of other specified parts of digestive tract; Z79.51 Long term (current) use of inhaled steroids; Z79.899 Other long term (current) drug therapy
CPT/HCPCS: 99285; 96374; 96375 ×2; 96361 ×2; 36415; 93005; 80053; 82550; 82553; 83690; 83735; 84484; 85025; 85610; 85730; 71020; 71275; 74177; J1170; Q9967; J2270; J2405

== ENCOUNTER 2017-04-04 16:09 | Inpatient (IN) | payer MEDICARE, OTHER ==
--- NOTE | 2017-04-04 17:18 | ED ---
General Adult HPI - General Chief complaint: Chest Pain Stated complaint: Chest Pain, Vomiting, Dizzy Time Seen by Provider: 04/04/17 16:29 Source: patient, RN notes reviewed, old records reviewed (Including computed tomography scan done earlier today.) Mode of arrival: wheelchair Limitations: no limitations - History of Present Illness Initial comments: Patient is a pleasant 46-year-old male presenting to the emergency department complaining of chest discomfort. Patient states onset of symptoms was a day or so ago. Patient was in the hospital earlier and returned because symptoms continue. Patient states discomfort is more in his chest. Patient does have a history of pancreatitis and does have a history of alcohol intake. Patient states discomfort feels somewhat similar to pancreatitis however is more in his chest. Discomfort feels like an ache. Patient states discomfort does radiate towards the back. - Related Data Home Medications Medication Instructions Recorded Confirmed Atorvastatin [Lipitor] 10 mg PO HS 09/27/15 04/04/17 Gabapentin [Neurontin] 300 mg PO TID 12/18/16 04/04/17 Tamsulosin HCl [Flomax] 0.4 mg PO DAILY 12/18/16 04/04/17 traMADol HCL [Ultram] 50 mg PO Q6H PRN 02/22/17 04/04/17 Albuterol Inhaler [Ventolin Hfa 2 puff INHALATION RT-Q4H PRN 03/01/17 04/04/17 Inhaler] Multivitamins, Thera [Multivitamin 1 tab PO DAILY 03/01/17 04/04/17 (formulary)] Budesonide/Formoterol Fumarate 1 puff INHALATION RT-BID 04/04/17 04/04/17 [Symbicort 80-4.5 Mcg Inhaler] Cholecalciferol (Vitamin D3) 2,000 unit PO DAILY 04/04/17 04/04/17 [Vitamin D3] Omeprazole [PriLOSEC] 20 mg PO AC-BID PRN 04/04/17 04/04/17 Ondansetron Odt [Zofran Odt] 4 mg PO Q8HR PRN 04/04/17 04/04/17 traZODone HCL 50 mg PO HS 04/04/17 04/04/17 Previous Rx's Medication Instructions Recorded Folic Acid 1 mg PO DAILY #30 tablet 07/15/15 LORazepam [Ativan] 0.5 mg PO TID PRN #30 tab 12/22/16 Allergies Allergy/AdvReac Type Severity Reaction Status Date / Time No Known Allergies Allergy Verified 04/04/17 16:32 Review of Systems ROS Statement: Those systems with pertinent positive or pertinent negative responses have been documented in the HPI. ROS Other: All systems not noted in ROS Statement are negative. Constitutional: Denies: fever Eyes: Denies: eye pain ENT: Denies: ear pain Respiratory: Denies: cough Cardiovascular: Reports: chest pain Endocrine: Denies: fatigue Gastrointestinal: Denies: abdominal pain Genitourinary: Denies: dysuria Musculoskeletal: Denies: arthralgia Skin: Denies: rash Neurological: Denies: weakness Past Medical History Past Medical History: GERD/Reflux, Pneumonia Additional Past Medical History / Comment(s): KIDNEY STONES, back pain, gallstones History of Any Multi-Drug Resistant Organisms: None Reported Past Surgical History: Back Surgery, Cholecystectomy Additional Past Surgical History / Comment(s): Bronchoscopy, BACK surgery with TITANIUM PLATES MILTON and CAGES, KIDNEY STONES removed per pt, SPINAL CORD STIMULATOR, ISMAEL KNEE ARTHROSCOPIES, PINKY FINGER RT HAND REATTATCHED Past Anesthesia/Blood Transfusion Reactions: No Reported Reaction Past Psychological History: Anxiety, Depression Smoking Status: Current every day smoker Past Alcohol Use History: Occasional Past Drug Use History: Marijuana - Past Family History Father Family Medical History: Diabetes Mellitus Additional Family Medical History / Comment(s): Mother Family Medical History: Dementia, Hyperlipidemia, Hypertension Additional Family Medical History / Comment(s): Mother is living. General Exam Limitations: no limitations General appearance: alert, in no apparent distress Head exam: Present: atraumatic Eye exam: Present: normal appearance, PERRL ENT exam: Present: normal oropharynx Neck exam: Present: normal inspection Respiratory exam: Present: normal lung sounds bilaterally, chest wall tenderness (Mild) Cardiovascular Exam: Present: regular rate, normal rhythm Expanded Peripheral pulses: 2+: Radial (R), Radial (L), Dorsalis Pedis (R), Dorsalis Pedis (L) GI/Abdominal exam: Present: soft. Absent: tenderness Extremities exam: Present: normal inspection. Absent: pedal edema, calf tenderness Back exam: Present: normal inspection Neurological exam: Present: alert Psychiatric exam: Present: normal affect, normal mood Skin exam: Present: normal color Course Vital Signs 11/15/17 11/15/17 11/15/17 16:16 18:09 18:14 Temperature 98.5 F Pulse Rate 100 108 H 112 H Respiratory 20 20 20 Rate Blood Pressure 181/98 158/91 135/91 O2 Sat by Pulse 97 99 99 Oximetry 04/04/17 04/04/17 18:19 18:48 Temperature Pulse Rate 113 H 110 H Respiratory 20 19 Rate Blood Pressure 123/80 144/87 O2 Sat by Pulse 97 99 Oximetry EKG Findings - EKG Comments: EKG Findings:: Sinus rhythm at 80. NV 134. QRS 80. QT 406. QTc 460. Normal axis. Normal QRS. No acute ST change. Medical Decision Making - Medical Decision Making Patient reexamined. No improvement with nitroglycerin. Patient does feel somewhat better following Dilaudid. Patient and family were updated on results and plan. Case was discussed with practitioner Jethro, who will admit for Dr. Barragan, covering for Dr. Jones. - Lab Data Result diagrams: 04/04/17 17:24 04/04/17 17:24 Lab Results 04/04/17 04/04/17 04/04/17 Range/Units 17:24 17:24 17:24 WBC 8.8 (3.8-10.6) k/uL RBC 4.14 L (4.30-5.90) m/uL Hgb 13.9 (13.0-17.5) gm/dL Hct 42.6 (39.0-53.0) % MCV 103.0 H (80.0-100.0) fL MCH 33.6 (25.0-35.0) pg MCHC 32.6 (31.0-37.0) g/dL RDW 14.2 (11.5-15.5) % Plt Count 425 (150-450) k/uL Neutrophils % 88 % Lymphocytes % 5 % Monocytes % 5 % Eosinophils % 1 % Basophils % 0 % Neutrophils # 7.8 H (1.3-7.7) k/uL Lymphocytes # 0.5 L (1.0-4.8) k/uL Monocytes # 0.5 (0-1.0) k/uL Eosinophils # 0.1 (0-0.7) k/uL Basophils # 0.0 (0-0.2) k/uL Macrocytosis Slight PT (9.0-12.0) sec INR (<1.2) APTT (22.0-30.0) sec Sodium 136 L (137-145) mmol/L Potassium 5.3 H (3.5-5.1) mmol/L Chloride 106 (98-107) mmol/L Carbon Dioxide 25 (22-30) mmol/L Anion Gap 5 mmol/L BUN 6 L (9-20) mg/dL Creatinine 0.55 L (0.66-1.25) mg/dL Est GFR (MDRD) Af Amer >60 (>60 ml/min/1.73 sqM) Est GFR (MDRD) Non-Af >60 (>60 ml/min/1.73 sqM) Glucose 111 H (74-99) mg/dL Calcium 9.3 (8.4-10.2) mg/dL Magnesium 1.8 (1.6-2.3) mg/dL Total Bilirubin 1.0 (0.2-1.3) mg/dL AST 199 H (17-59) U/L ALT 119 H (21-72) U/L Alkaline Phosphatase 266 H (38-126) U/L Total Creatine Kinase 127 (55-170) U/L CK-MB (CK-2) 2.1 (0.0-2.4) ng/mL CK-MB (CK-2) Rel Index 1.7 Troponin I <0.012 (0.000-0.034) ng/mL Total Protein 6.7 (6.3-8.2) g/dL Albumin 3.3 L (3.5-5.0) g/dL Amylase 52 (30-110) U/L Lipase 690 H (23-300) U/L Urine Color Urine Appearance (Clear) Urine pH (5.0-8.0) Ur Specific [place] (1.001-1.035) Urine Protein (Negative) Urine Glucose (UA) (Negative) Urine Ketones (Negative) Urine Blood (Negative) Urine Nitrite (Negative) Urine Bilirubin (Negative) Urine Urobilinogen (<2.0) mg/dL Ur Leukocyte Esterase (Negative) Urine RBC (0-5) /hpf Urine WBC (0-5) /hpf Urine Bacteria (None) /hpf Urine Yeast (Budding) (None) /hpf 04/04/17 04/04/17 Range/Units 17:24 18:40 WBC (3.8-10.6) k/uL RBC (4.30-5.90) m/uL Hgb (13.0-17.5) gm/dL Hct (39.0-53.0) % MCV (80.0-100.0) fL MCH (25.0-35.0) pg MCHC (31.0-37.0) g/dL RDW (11.5-15.5) % Plt Count (150-450) k/uL Neutrophils % % Lymphocytes % % Monocytes % % Eosinophils % % Basophils % % Neutrophils # (1.3-7.7) k/uL Lymphocytes # (1.0-4.8) k/uL Monocytes # (0-1.0) k/uL Eosinophils # (0-0.7) k/uL Basophils # (0-0.2) k/uL Macrocytosis PT 10.3 (9.0-12.0) sec INR 1.0 (<1.2) APTT 22.9 (22.0-30.0) sec Sodium (137-145) mmol/L Potassium (3.5-5.1) mmol/L Chloride (98-107) mmol/L Carbon Dioxide (22-30) mmol/L Anion Gap mmol/L BUN (9-20) mg/dL Creatinine (0.66-1.25) mg/dL Est GFR (MDRD) Af Amer (>60 ml/min/1.73 sqM) Est GFR (MDRD) Non-Af (>60 ml/min/1.73 sqM) Glucose (74-99) mg/dL Calcium (8.4-10.2) mg/dL Magnesium (1.6-2.3) mg/dL Total Bilirubin (0.2-1.3) mg/dL AST (17-59) U/L ALT (21-72) U/L Alkaline Phosphatase (38-126) U/L Total Creatine Kinase (55-170) U/L CK-MB (CK-2) (0.0-2.4) ng/mL CK-MB (CK-2) Rel Index Troponin I (0.000-0.034) ng/mL Total Protein (6.3-8.2) g/dL Albumin (3.5-5.0) g/dL Amylase (30-110) U/L Lipase (23-300) U/L Urine Color Yellow Urine Appearance Clear (Clear) Urine pH 7.0 (5.0-8.0) Ur Specific [place] 1.027 (1.001-1.035) Urine Protein Negative (Negative) Urine Glucose (UA) Negative (Negative) Urine Ketones Trace H (Negative) Urine Blood Negative (Negative) Urine Nitrite Negative (Negative) Urine Bilirubin Negative (Negative) Urine Urobilinogen 3.0 (<2.0) mg/dL Ur Leukocyte Esterase Large H (Negative) Urine RBC 5 (0-5) /hpf Urine WBC 13 H (0-5) /hpf Urine Bacteria Many H (None) /hpf Urine Yeast (Budding) Many H (None) /hpf - Radiology Data Radiology results: image reviewed (Chest x-ray shows no suspicious acute pulmonary process.) Disposition Clinical Impression: Chest pain, Pancreatitis Disposition: ADMITTED IP TO THIS [facility] Referrals: Jessa Jones III, MD [Primary Care Provider] - 1-2 days
[2017-04-04 17:35] LABS: Basophils % (A) 0 %; CH 32.7; CHCM 31.9; Eosinophils # (A) 0.1 k/uL (0-0.7); Eosinophils % (A) 1 %; HCT 42.6 % (39.0-53.0); HDW 1.79; HGB 13.9 gm/dL (13.0-17.5); Luc # (Auto) 0.03; Luc % (Auto) 0; Lymphocytes # (A) 0.5 k/uL (1.0-4.8); Lymphocytes % (A) 5 %; MCH 33.6 pg (25.0-35.0); MCHC 32.6 g/dL (31.0-37.0); Macrocytosis Slight; Mean Platelet Volume 7.5; Monocytes # (A) 0.5 k/uL (0-1.0); Monocytes % (A) 5 %; Neutrophils # (A) 7.8 k/uL (1.3-7.7); Neutrophils % (A) 88 %; RBC 4.14 m/uL (4.30-5.90); RDW 14.2 % (11.5-15.5); WBC 8.8 k/uL (3.8-10.6); WBC (Perox) 9.24
[2017-04-04 17:46] LABS: Amylase 52 U/L (30-110); Anion Gap 5 mmol/L; Blood Urea Nitrogen 6 mg/dL (9-20); Calcium 9.3 mg/dL (8.4-10.2); Carbon Dioxide 25 mmol/L (22-30); Chloride 106 mmol/L (98-107); Glucose 111 mg/dL (74-99); Magnesium 1.8 mg/dL (1.6-2.3); Non-African American GFR(MDRD) >60 (>60 ml/min/1.73 sqM); Sodium 136 mmol/L (137-145); Total Protein 6.7 g/dL (6.3-8.2)
[2017-04-04 17:48] LABS: ALT 119 U/L (21-72); AST 199 U/L (17-59); Alkaline Phosphatase 266 U/L (38-126); Potassium 5.3 mmol/L (3.5-5.1)
[2017-04-04] MEDS ORDERED: ASPIRIN 81 MG PO STA (17:49)
[2017-04-04 17:53] LABS: Partial Thromboplastin Time 22.9 sec (22.0-30.0); Prothrombin Time 10.3 sec (9.0-12.0)
[2017-04-04 17:59] LABS: Creatine Kinase 127 U/L (55-170)
[2017-04-04] MEDS: NITROGLYCERIN SL TABS 0.4 MG TAB SUBLINGUAL STA ×3 (18:10→18:20)
[2017-04-04 18:12] LABS: Creatine Kinase MB 2.1 ng/mL (0.0-2.4); Troponin I <0.012 ng/mL (0.000-0.034)
[2017-04-04 19:01] LABS: Appearance,Urine Clear (Clear); Bacteria,Urine Many /hpf; Bilirubin,Urine Negative (Negative); Glucose,Urine (UA) Negative (Negative); Ketones,Urine Trace (Negative); Leukocyte Esterase,Urine Large (Negative); Nitrite,Urine Negative (Negative); Particle Count 878; Protein,Urine Negative (Negative); RBC,Urine 5 /hpf (0-5); Specific Gravity,Urine 1.027 (1.001-1.035); UA Billing (MACRO vs. MICRO) MICRO; WBC,Urine 13 /hpf (0-5)
--- NOTE | 2017-04-04 19:04 | XR ---
EXAMINATION TYPE: XR chest 2V DATE OF EXAM: 04/04/2017 COMPARISON: Chest x-ray and CTA chest from earlier today. HISTORY: Chest pain TECHNIQUE: Frontal and lateral views of the chest are obtained. FINDINGS: There is no focal air space opacity, pleural effusion, or pneumothorax seen. Mild underly ing emphysematous change is present. The cardiac silhouette size is within normal limits. Spinal stim ulator device lower thoracic spine is redemonstrated.. IMPRESSION: Mild underlying emphysematous change without suspicious acute pulmonary process.
[2017-04-04] MEDS ORDERED: HYDROmorphone 1 MG/ML 1 ML SYRINGE IVP STA (20:19)
[2017-04-04] MEDS: HYDROmorphone 1 MG/ML 1 ML SYRINGE IVP PRN (23:05)
[2017-04-04] MEDS: ONDANSETRON 4 MG/2 ML VIAL IVP PRN (23:36)
[2017-04-04] MEDS: LORazepam 1 MG TAB PO PRN (23:50)
[2017-04-04] MEDS: NICOTINE 21MG/24HR PATCH TRANSDERM SCH (23:50)
[2017-04-04] MEDS: MELATONIN 3 MG TABLET PO PRN (23:53)
[2017-04-05 00:27] LABS: Creatine Kinase 102 U/L (55-170)
[2017-04-05 00:40] LABS: Creatine Kinase MB 1.6 ng/mL (0.0-2.4); Troponin I <0.012 ng/mL (0.000-0.034)
[2017-04-05] MEDS: HYDROmorphone 1 MG/ML 1 ML SYRINGE IVP PRN ×3 (03:35→13:11)
[2017-04-05 05:55] LABS: Creatine Kinase 84 U/L (55-170)
[2017-04-05 06:09] LABS: Creatine Kinase MB 1.2 ng/mL (0.0-2.4); Troponin I <0.012 ng/mL (0.000-0.034)
[2017-04-05 06:10] LABS: Cholesterol 148 mg/dL (<200); HDL Cholesterol 109 mg/dL (40-60)
[2017-04-05] MEDS: LORazepam 1 MG TAB PO PRN ×2 (09:14→21:25)
[2017-04-05] MEDS: ONDANSETRON 4 MG/2 ML VIAL IVP PRN (09:15)
[2017-04-05] MEDS: PANTOPRAZOLE 40 MG/10 ML VIAL IVP SCH ×2 (09:17→21:25)
[2017-04-05] MEDS: NICOTINE 21MG/24HR PATCH TRANSDERM SCH (09:17)
--- NOTE | 2017-04-05 10:27 | P.GSCN ---
History of Present Illness Consult date: 04/05/17 Reason for Consult: abdominal pain History of present illness: the patient is a 46-year-old man known to me. He had a laparoscopic cholecystectomy on March 21 for gallstones. He's had continued generalized complaints of pain, shortness of breath. he has a history of several admissions to both hospitals with pancreatitis felt to be due to alcohol. He does admit to drinking recently but doesn't think it was that much. Denies jaundice or brown urine.I had seen him for a postop visit on March 27. He was complaining of cough and some right-sided abdominal pain at that time. He was sent for lab which showed a normal white count, hemoglobin. At that time his alkaline phosphatase was modestly elevated. Review of Systems All systems: negative Past Medical History Past Medical History: GERD/Reflux, Pneumonia Additional Past Medical History / Comment(s): KIDNEY STONES, back pain, gallstones, alcoholic pancreatitis History of Any Multi-Drug Resistant Organisms: None Reported Past Surgical History: Back Surgery, Cholecystectomy (03/21/2017) Additional Past Surgical History / Comment(s): Bronchoscopy, BACK surgery with TITANIUM PLATES MILTON and CAGES, KIDNEY STONES removed per pt, SPINAL CORD STIMULATOR, ISMAEL KNEE ARTHROSCOPIES, PINKY FINGER RT HAND REATTATCHED Past Anesthesia/Blood Transfusion Reactions: No Reported Reaction Past Psychological History: Anxiety, Depression Additional Psychological History / Comment(s): PT LIVES AT HOME WITH in a 2 story home that has 3 porch steps/7 steps to 2nd floor.. 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 NO SERVICE.. uses either walker or w/c also has shower chair and raised toilet seat. He does not drive, his can drive. Smoking Status: Current every day smoker Past Alcohol Use History: Occasional Additional Past Alcohol Use History / Comment(s): Smokes 2 packs per day; Patient reports drinking 2 or more beers daily Past Drug Use History: Marijuana Additional Drug Use History / Comment(s): Patient reports that he has not used Marijuana in 12 months - Past Family History Father Family Medical History: Diabetes Mellitus Additional Family Medical History / Comment(s): Mother Family Medical History: Dementia, Hyperlipidemia, Hypertension Additional Family Medical History / Comment(s): Mother is living. Medications and Allergies Home Medications Medication Instructions Recorded Confirmed Type Folic Acid 1 mg PO DAILY #30 tablet 07/15/15 04/04/17 Rx Atorvastatin [Lipitor] 10 mg PO HS 09/27/15 04/04/17 History Gabapentin [Neurontin] 300 mg PO TID 12/18/16 04/04/17 History Tamsulosin HCl [Flomax] 0.4 mg PO DAILY 12/18/16 04/04/17 History LORazepam [Ativan] 0.5 mg PO TID PRN #30 tab 12/22/16 04/04/17 Rx traMADol HCL [Ultram] 50 mg PO Q6H PRN 02/22/17 04/04/17 History Albuterol Inhaler [Ventolin Hfa 2 puff INHALATION RT-Q4H PRN 03/01/17 04/04/17 History Inhaler] Multivitamins, Thera [Multivitamin 1 tab PO DAILY 03/01/17 04/04/17 History (formulary)] Budesonide/Formoterol Fumarate 1 puff INHALATION RT-BID 04/04/17 04/04/17 History [Symbicort 80-4.5 Mcg Inhaler] Cholecalciferol (Vitamin D3) 2,000 unit PO DAILY 04/04/17 04/04/17 History [Vitamin D3] Omeprazole [PriLOSEC] 20 mg PO AC-BID PRN 04/04/17 04/04/17 History Ondansetron Odt [Zofran Odt] 4 mg PO Q8HR PRN 04/04/17 04/04/17 History traZODone HCL 50 mg PO HS 04/04/17 04/04/17 History Allergies Allergy/AdvReac Type Severity Reaction Status Date / Time No Known Allergies Allergy Verified 04/04/17 16:32 Surgical - Exam Osteopathic Statement: *. No significant issues noted on an osteopathic structural exam other than those noted in the History and Physical/Consult. Vital Signs Temp Pulse Resp BP Pulse Ox 98.5 F 100 20 181/98 97 04/04/17 16:16 04/04/17 16:16 04/04/17 16:16 04/04/17 16:16 04/04/17 16:16 - General well developed, no distress, chronically ill (appears older than stated age) - Eyes normal ocular movement, no icteric - ENT normal mucosa - Neck trachea midline - Respiratory normal expansion, normal respiratory effort, clear to auscultation absent: wheezing - Cardiovascular Rhythm: regular - Abdomen Abdomen: soft, tender (mild nonspecific tenderness), surgical scars (incisions are healed without cellulitis or seroma) Results - Labs 04/04/17 17:24 04/04/17 17:24 Abnormal Lab Results - Last 24 Hours (Table) 04/04/17 04/04/17 04/04/17 Range/Units 17:24 17:24 18:40 RBC 4.14 L (4.30-5.90) m/uL MCV 103.0 H (80.0-100.0) fL Neutrophils # 7.8 H (1.3-7.7) k/uL Lymphocytes # 0.5 L (1.0-4.8) k/uL Sodium 136 L (137-145) mmol/L Potassium 5.3 H (3.5-5.1) mmol/L BUN 6 L (9-20) mg/dL Creatinine 0.55 L (0.66-1.25) mg/dL Glucose 111 H (74-99) mg/dL AST 199 H (17-59) U/L ALT 119 H (21-72) U/L Alkaline Phosphatase 266 H (38-126) U/L Albumin 3.3 L (3.5-5.0) g/dL HDL Cholesterol (40-60) mg/dL Lipase 690 H (23-300) U/L Urine Ketones Trace H (Negative) Ur Leukocyte Esterase Large H (Negative) Urine WBC 13 H (0-5) /hpf Urine Bacteria Many H (None) /hpf Urine Yeast (Budding) Many H (None) /hpf 04/05/17 04/05/17 Range/Units 05:17 05:17 RBC (4.30-5.90) m/uL MCV (80.0-100.0) fL Neutrophils # (1.3-7.7) k/uL Lymphocytes # (1.0-4.8) k/uL Sodium (137-145) mmol/L Potassium (3.5-5.1) mmol/L BUN (9-20) mg/dL Creatinine (0.66-1.25) mg/dL Glucose (74-99) mg/dL AST (17-59) U/L ALT (21-72) U/L Alkaline Phosphatase (38-126) U/L Albumin (3.5-5.0) g/dL HDL Cholesterol 109 H (40-60) mg/dL Lipase 1029 H (23-300) U/L Urine Ketones (Negative) Ur Leukocyte Esterase (Negative) Urine WBC (0-5) /hpf Urine Bacteria (None) /hpf Urine Yeast (Budding) (None) /hpf Microbiology - Last 24 Hours (Table) 04/04/17 18:40 Urine Culture - Preliminary Urine,Catheterized Diabetes panel 04/04/17 04/05/17 Range/Units 17:24 05:17 Sodium 136 L (137-145) mmol/L Potassium 5.3 H (3.5-5.1) mmol/L Chloride 106 (98-107) mmol/L Carbon Dioxide 25 (22-30) mmol/L BUN 6 L (9-20) mg/dL Creatinine 0.55 L (0.66-1.25) mg/dL Glucose 111 H (74-99) mg/dL Calcium 9.3 (8.4-10.2) mg/dL AST 199 H (17-59) U/L ALT 119 H (21-72) U/L Alkaline Phosphatase 266 H (38-126) U/L Total Protein 6.7 (6.3-8.2) g/dL Albumin 3.3 L (3.5-5.0) g/dL Triglycerides 57 (<150) mg/dL HDL Cholesterol 109 H (40-60) mg/dL Calcium panel 04/04/17 Range/Units 17:24 Calcium 9.3 (8.4-10.2) mg/dL Albumin 3.3 L (3.5-5.0) g/dL Pituitary panel 04/04/17 Range/Units 17:24 Sodium 136 L (137-145) mmol/L Potassium 5.3 H (3.5-5.1) mmol/L Chloride 106 (98-107) mmol/L Carbon Dioxide 25 (22-30) mmol/L BUN 6 L (9-20) mg/dL Creatinine 0.55 L (0.66-1.25) mg/dL Glucose 111 H (74-99) mg/dL Calcium 9.3 (8.4-10.2) mg/dL Adrenal panel 04/04/17 Range/Units 17:24 Sodium 136 L (137-145) mmol/L Potassium 5.3 H (3.5-5.1) mmol/L Chloride 106 (98-107) mmol/L Carbon Dioxide 25 (22-30) mmol/L BUN 6 L (9-20) mg/dL Creatinine 0.55 L (0.66-1.25) mg/dL Glucose 111 H (74-99) mg/dL Calcium 9.3 (8.4-10.2) mg/dL Total Bilirubin 1.0 (0.2-1.3) mg/dL AST 199 H (17-59) U/L ALT 119 H (21-72) U/L Alkaline Phosphatase 266 H (38-126) U/L Total Protein 6.7 (6.3-8.2) g/dL Albumin 3.3 L (3.5-5.0) g/dL Assessment and Plan (1) Elevated liver function tests Current Visit: Yes Status: Acute Code(s): R79.89 - OTHER SPECIFIED ABNORMAL FINDINGS OF BLOOD CHEMISTRY SNOMED Code(s): 856171549 (2) History of laparoscopic cholecystectomy Current Visit: Yes Status: Acute Code(s): Z90.49 - ACQUIRED ABSENCE OF OTHER SPECIFIED PARTS OF DIGESTIVE TRACT SNOMED Code(s): 562721016 (3) Pancreatitis Current Visit: Yes Status: Acute Code(s): K85.90 - ACUTE PANCREATITIS WITHOUT NECROSIS OR INFECTION, UNSP SNOMED Code(s): 74299186 (4) Abdominal pain Current Visit: No Status: Acute Code(s): R10.9 - UNSPECIFIED ABDOMINAL PAIN SNOMED Code(s): 12000081 (5) History of alcohol use Current Visit: No Status: Acute Code(s): Z87.898 - PERSONAL HISTORY OF OTHER SPECIFIED CONDITIONS SNOMED Code(s): 824313701 (6) Possible urinary tract infection Current Visit: Yes Status: Acute Code(s): N39.0 - URINARY TRACT INFECTION, SITE NOT SPECIFIED SNOMED Code(s): 342354341 Plan: My suspicion for retained common bile duct stone is fairly low. Recommend GI evaluation.Urine culture and appropriate treatment.medical therapy. He nonsurgical.
[2017-04-05 11:41] VITALS: BMI 23.3
[2017-04-05] MEDS ORDERED: IPRATROPIUM-ALBUTEROL 3 ML NEB INHALATION PRN (12:11)
--- NOTE | 2017-04-05 12:58 | CONS ---
CONSULTATION DATE OF SERVICE: 04/05/2017 REASON FOR CONSULTATION: Acute pancreatitis. HISTORY OF PRESENT ILLNESS: The patient is a 46-year-old white male with history of alcoholism and prior history of pancreatitis for which he was hospitalized about 6 months ago. Admits to the hospital with acute onset of severe epigastric pain associated with nausea, vomiting, and some shortness of breath. He has been drinking heavily lately and the last alcohol use was about 3 days ago. The pain is mostly in the epigastric area which has been progressively getting worse. He underwent gallbladder surgery for asymptomatic gallstones by Dr. Genao about 3 weeks ago. This morning he is feeling a little bit better. He denies any fever, chills, night sweats. PAST MEDICAL HISTORY: Significant for GERD, heavy alcohol abuse, history of chronic relapsing pancreatitis, history of kidney stones. PAST SURGICAL HISTORY: Bronchoscopy, back surgery, kidney stones removal, spinal cord stimulator, arthroscopy of the knee. SOCIAL HISTORY: Chronic smoker and heavy alcohol use for 30 years as mentioned above. FAMILY HISTORY: Father had diabetes mellitus. Mother has hypertension and hyperlipidemia. MEDICATIONS: At home include Lipitor, Neurontin, Flomax, Ativan, Ultram, multivitamin, Symbicort, Prilosec, Zofran, vitamin D3. ALLERGIES: None. REVIEW OF SYSTEMS: CARDIOPULMONARY: No chest pain, shortness of breath. GENITOURINARY: No hematuria or dysuria. MUSCULOSKELETAL: Unremarkable. SKIN: Unremarkable. ENDOCRINE: Unremarkable. PSYCHIATRY: Unremarkable. NEUROLOGY: Unremarkable. ENT: Vision unremarkable. CONSTITUTIONAL: No recent weight loss. No fever, chills, night sweats. PHYSICAL EXAMINATION: Appears comfortable, in no apparent distress. Vital signs are stable. Blood pressure is 132/86, pulse 84 per minute and afebrile. HEENT examination unremarkable. Conjunctivae are pink, sclerae nonicteric. Oral cavity no lesions. NECK: No JVD or lymph node enlargement. Chest was clear to auscultation. HEART: S1, S2. ABDOMEN: Soft. Bowel sounds are positive. No organomegaly. EXTREMITIES: No pedal edema. SKIN: No rashes. NEURO: Alert and oriented x3. No focal deficits. LABS: At the time of admission to hospital WBC 8.8, hemoglobin 13.9, platelets are normal. Basic metabolic panel showed an AST of 199, ALT of 119, alk phos of 266, T bili is normal. Amylase 52, lipase 690. This morning lipase went up to 1029. IMPRESSION: This is a patient with chronic relapsing pancreatitis related to alcohol use with previous hospitalizations, now presents with abdominal pain, nausea, vomiting. He is status post laparoscopic cholecystectomy for gallstones about 3 weeks ago. During this hospitalization, he was noted to have elevated serum transaminases with ALT and AST in the range of 200s. Amylase and lipase are elevated consistent with acute pancreatitis. At this time, most likely we are dealing with alcohol-related chronic relapsing pancreatitis but possibly of CBD stone causing pancreatitis cannot be entirely excluded at this time. RECOMMENDATIONS: 1. Continue with a clear liquid diet. 2. Supportive and symptomatic care. 3. Will repeat labs in the morning and if he continues to have a pattern with the LFTs that are gradually increasing, then I will consider proceeding with an MRCP to see for any CBD stone and based on the results, will consider further endoscopic intervention. At this time, I will order for labs tomorrow and will follow him closely during his hospital stay. Thank you for this consultation. MMMOL / JALENN: [id number] /
--- NOTE | 2017-04-05 14:14 | P.HPIM ---
History of Present Illness 78-year-old male came in with complains of abdominal pain found to have elevated lipase patient has severe 10 x 10 epigastric abdominal pain patient had a history of gallstones in the past which was removed and patient does have alcohol abuse history can use to drink alcohol 4-5 drinks patient last drink was about 3 days ago because of which my suspicion is low that patient will have all call withdraws patient will be nothing by mouth and will be on IV fluids patient does have elevated liver enzymes secondary to acute alcoholic hepatitis. Patient's abdominal pain sharp in nature and associated with nausea patient on clear liquid diet which will risk and urine patient will be nothing by mouth for today Review of Systems REVIEW OF SYSTEMS: CONSTITUTIONAL: No fever, no malaise, no fatigue. HEENT: No recent visual problems or hearing problems. Denied any sore throat. CARDIOVASCULAR: No chest pain, orthopnea, PND, no palpitations, no syncope. PULMONARY: No shortness of breath, no cough, no hemoptysis. GASTROINTESTINAL: As mentioned in HPI NEUROLOGICAL: No headaches, no weakness, no numbness. HEMATOLOGICAL: Denies any bleeding or petechiae. GENITOURINARY: Denies any burning micturition, frequency, or urgency. MUSCULOSKELETAL/RHEUMATOLOGICAL: Denies any joint pain, swelling, or any muscle pain. ENDOCRINE: Denies any polyuria or polydipsia. The rest of the 14-point review of systems is negative. Past Medical History Past Medical History: GERD/Reflux, Pneumonia Additional Past Medical History / Comment(s): KIDNEY STONES, back pain, gallstones, alcoholic pancreatitis History of Any Multi-Drug Resistant Organisms: None Reported Past Surgical History: Back Surgery, Cholecystectomy (03/21/2017) Additional Past Surgical History / Comment(s): Bronchoscopy, BACK surgery with TITANIUM PLATES MILTON and CAGES, KIDNEY STONES removed per pt, SPINAL CORD STIMULATOR, ISMAEL KNEE ARTHROSCOPIES, PINKY FINGER RT HAND REATTATCHED Past Anesthesia/Blood Transfusion Reactions: No Reported Reaction Past Psychological History: Anxiety, Depression Additional Psychological History / Comment(s): PT LIVES AT HOME WITH in a 2 story home that has 3 porch steps/7 steps to 2nd floor.. 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 uses either walker or w/c also has shower chair and raised toilet seat. He does not drive, his can drive. Smoking Status: Current every day smoker Past Alcohol Use History: Occasional Additional Past Alcohol Use History / Comment(s): Smokes 2 packs per day; Patient reports drinking 2 or more beers daily Past Drug Use History: Marijuana Additional Drug Use History / Comment(s): Patient reports that he has not used Marijuana in 12 months - Past Family History Father Family Medical History: Diabetes Mellitus Additional Family Medical History / Comment(s): Mother Family Medical History: Dementia, Hyperlipidemia, Hypertension Additional Family Medical History / Comment(s): Mother is living. Medications and Allergies Home Medications Medication Instructions Recorded Confirmed Type Folic Acid 1 mg PO DAILY #30 tablet 07/15/15 04/04/17 Rx Atorvastatin [Lipitor] 10 mg PO HS 09/27/15 04/04/17 History Gabapentin [Neurontin] 300 mg PO TID 12/18/16 04/04/17 History Tamsulosin HCl [Flomax] 0.4 mg PO DAILY 12/18/16 04/04/17 History LORazepam [Ativan] 0.5 mg PO TID PRN #30 tab 12/22/16 04/04/17 Rx traMADol HCL [Ultram] 50 mg PO Q6H PRN 02/22/17 04/04/17 History Albuterol Inhaler [Ventolin Hfa 2 puff INHALATION RT-Q4H PRN 03/01/17 04/04/17 History Inhaler] Multivitamins, Thera [Multivitamin 1 tab PO DAILY 03/01/17 04/04/17 History (formulary)] Budesonide/Formoterol Fumarate 1 puff INHALATION RT-BID 04/04/17 04/04/17 History [Symbicort 80-4.5 Mcg Inhaler] Cholecalciferol (Vitamin D3) 2,000 unit PO DAILY 04/04/17 04/04/17 History [Vitamin D3] Omeprazole [PriLOSEC] 20 mg PO AC-BID PRN 04/04/17 04/04/17 History Ondansetron Odt [Zofran Odt] 4 mg PO Q8HR PRN 04/04/17 04/04/17 History traZODone HCL 50 mg PO HS 04/04/17 04/04/17 History Allergies Allergy/AdvReac Type Severity Reaction Status Date / Time No Known Allergies Allergy Verified 04/04/17 16:32 Physical Exam Vitals: Vital Signs Temp Pulse Pulse Resp BP BP Pulse Ox 04/05/17 07:00 98.3 F 89 16 144/91 99 04/04/17 23:00 96.7 F L 115 H 16 144/91 98 04/04/17 20:57 99 04/04/17 18:48 110 H 19 144/87 99 04/04/17 18:19 113 H 20 123/80 97 04/04/17 18:14 112 H 20 135/91 99 04/04/17 18:09 108 H 20 158/91 99 04/04/17 16:16 98.5 F 100 20 181/98 97 Intake and Output 04/04/17 04/05/17 04/05/17 22:59 06:59 14:59 Intake Total 350 960 Balance 350 960 Intake: Amount of Fluid Infused ( 30 ml) Oral 320 960 Other: Voiding Method Toilet Urinal # Emeses 2 Weight 65.771 kg 65.771 kg Patient Weight 04/06/17 06:59 Weight 65.771 kg PHYSICAL EXAMINATION: GENERAL: The patient is alert and oriented x3, not in any acute distress. Well developed, well nourished. HEENT: Pupils are round and equally reacting to light. EOMI. No scleral icterus. No conjunctival pallor. Normocephalic, atraumatic. No pharyngeal erythema. No thyromegaly. CARDIOVASCULAR: S1 and S2 present. No murmurs, rubs, or gallops. PULMONARY: Chest is clear to auscultation, no wheezing or crackles. ABDOMEN: Soft, minimal epigastric abdominal tenderness, nondistended, normoactive bowel sounds. No palpable organomegaly. MUSCULOSKELETAL: No joint swelling or deformity. EXTREMITIES: No cyanosis, clubbing, or pedal edema. NEUROLOGICAL: Gross neurological examination did not reveal any focal deficits. SKIN: No rashes. Results CBC & Chem 7: 04/04/17 17:24 04/04/17 17:24 Labs: Abnormal Lab Results - Last 24 Hours (Table) 04/04/17 04/04/17 04/04/17 Range/Units 17:24 17:24 18:40 RBC 4.14 L (4.30-5.90) m/uL MCV 103.0 H (80.0-100.0) fL Neutrophils # 7.8 H (1.3-7.7) k/uL Lymphocytes # 0.5 L (1.0-4.8) k/uL Sodium 136 L (137-145) mmol/L Potassium 5.3 H (3.5-5.1) mmol/L BUN 6 L (9-20) mg/dL Creatinine 0.55 L (0.66-1.25) mg/dL Glucose 111 H (74-99) mg/dL AST 199 H (17-59) U/L ALT 119 H (21-72) U/L Alkaline Phosphatase 266 H (38-126) U/L Albumin 3.3 L (3.5-5.0) g/dL HDL Cholesterol (40-60) mg/dL Lipase 690 H (23-300) U/L Urine Ketones Trace H (Negative) Ur Leukocyte Esterase Large H (Negative) Urine WBC 13 H (0-5) /hpf Urine Bacteria Many H (None) /hpf Urine Yeast (Budding) Many H (None) /hpf 04/05/17 04/05/17 Range/Units 05:17 05:17 RBC (4.30-5.90) m/uL MCV (80.0-100.0) fL Neutrophils # (1.3-7.7) k/uL Lymphocytes # (1.0-4.8) k/uL Sodium (137-145) mmol/L Potassium (3.5-5.1) mmol/L BUN (9-20) mg/dL Creatinine (0.66-1.25) mg/dL Glucose (74-99) mg/dL AST (17-59) U/L ALT (21-72) U/L Alkaline Phosphatase (38-126) U/L Albumin (3.5-5.0) g/dL HDL Cholesterol 109 H (40-60) mg/dL Lipase 1029 H (23-300) U/L Urine Ketones (Negative) Ur Leukocyte Esterase (Negative) Urine WBC (0-5) /hpf Urine Bacteria (None) /hpf Urine Yeast (Budding) (None) /hpf Microbiology - Last 24 Hours (Table) 04/04/17 18:40 Urine Culture - Preliminary Urine,Catheterized Assessment and Plan Plan: #1 abdominal pain: Seconded to either gastritis or pancreatitis both of which are alcohol-related patient will remain nothing by mouth IV fluids at 1 25 mL/h #2 acute alcoholic hepatitis: Counseling was provided #3 monitored for alcohol withdrawal may concern for alcohol withdrawal is low as patient last drink was more than 3 days ago 4 hyperkalemia: Secondary to hemolysis #5 history of back surgeries in the past patient does straight catheterizations at home
--- NOTE | 2017-04-05 16:47 | P.GSCN ---
History of Present Illness Consult date: 04/05/17 Reason for Consult: Ureteral stricture History of present illness: The patient is a 46-year-old male with a history of alcoholism who was admitted through the emergency room due to acute pancreatitis. He is had previous admissions due to pancreatitis related to alcohol abuse. 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 He has a history of left hydronephrosis secondary to vesicoureteral reflux and was last seen by me in November when he was at [facility]. He says he usually catheterizes himself 3 times daily and has had no difficulty passing the catheter. I have previously instructed him that due to his large volume of urine produced that he should be catheterizing at least 4 times a day , and ideally often enough that he does not have more than 500 mL in his bladder. His renal function has been preserved with a BUN/creatinine of 6/0.55. Review of Systems - Constitutional Denies chills, Denies fever - Cardiovascular Denies leg edema - Respiratory Denies wheezing - Gastrointestinal Reports abdominal pain - Genitourinary Reports as per HPI Past Medical History Past Medical History: GERD/Reflux, Pneumonia Additional Past Medical History / Comment(s): KIDNEY STONES, back pain, gallstones, alcoholic pancreatitis History of Any Multi-Drug Resistant Organisms: None Reported Past Surgical History: Back Surgery, Cholecystectomy (03/21/2017) Additional Past Surgical History / Comment(s): Bronchoscopy, BACK surgery with TITANIUM PLATES MILTON and CAGES, KIDNEY STONES removed per pt, SPINAL CORD STIMULATOR, ISMAEL KNEE ARTHROSCOPIES, PINKY FINGER RT HAND REATTATCHED Past Anesthesia/Blood Transfusion Reactions: No Reported Reaction Past Psychological History: Anxiety, Depression Additional Psychological History / Comment(s): PT LIVES AT HOME WITH in a 2 story home that has 3 porch steps/7 steps to 2nd floor.. 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 NO SERVICE.. uses either walker or w/c also has shower chair and raised toilet seat. He does not drive, his can drive. Smoking Status: Current every day smoker Past Alcohol Use History: Occasional Additional Past Alcohol Use History / Comment(s): Smokes 2 packs per day; Patient reports drinking 2 or more beers daily Past Drug Use History: Marijuana Additional Drug Use History / Comment(s): Patient reports that he has not used Marijuana in 12 months - Past Family History Father Family Medical History: Diabetes Mellitus Additional Family Medical History / Comment(s): Mother Family Medical History: Dementia, Hyperlipidemia, Hypertension Additional Family Medical History / Comment(s): Mother is living. Medications and Allergies Home Medications Medication Instructions Recorded Confirmed Type Folic Acid 1 mg PO DAILY #30 tablet 07/15/15 04/04/17 Rx Atorvastatin [Lipitor] 10 mg PO HS 09/27/15 04/04/17 History Gabapentin [Neurontin] 300 mg PO TID 12/18/16 04/04/17 History Tamsulosin HCl [Flomax] 0.4 mg PO DAILY 12/18/16 04/04/17 History LORazepam [Ativan] 0.5 mg PO TID PRN #30 tab 12/22/16 04/04/17 Rx traMADol HCL [Ultram] 50 mg PO Q6H PRN 02/22/17 04/04/17 History Albuterol Inhaler [Ventolin Hfa 2 puff INHALATION RT-Q4H PRN 03/01/17 04/04/17 History Inhaler] Multivitamins, Thera [Multivitamin 1 tab PO DAILY 03/01/17 04/04/17 History (formulary)] Budesonide/Formoterol Fumarate 1 puff INHALATION RT-BID 04/04/17 04/04/17 History [Symbicort 80-4.5 Mcg Inhaler] Cholecalciferol (Vitamin D3) 2,000 unit PO DAILY 04/04/17 04/04/17 History [Vitamin D3] Omeprazole [PriLOSEC] 20 mg PO AC-BID PRN 04/04/17 04/04/17 History Ondansetron Odt [Zofran Odt] 4 mg PO Q8HR PRN 04/04/17 04/04/17 History traZODone HCL 50 mg PO HS 04/04/17 04/04/17 History Allergies Allergy/AdvReac Type Severity Reaction Status Date / Time No Known Allergies Allergy Verified 04/04/17 16:32 Surgical - Exam Vital Signs Temp Pulse Resp BP Pulse Ox 98.5 F 100 20 181/98 97 04/04/17 16:16 04/04/17 16:16 04/04/17 16:16 04/04/17 16:16 04/04/17 16:16 - General well developed, no distress - Respiratory normal respiratory effort - Abdomen Abdomen: soft, tender, no guarding - Genitourinary normal penis with no external lesions Results - Labs 04/04/17 17:24 04/04/17 17:24 Abnormal Lab Results - Last 24 Hours (Table) 04/04/17 04/04/17 04/04/17 Range/Units 17:24 17:24 18:40 RBC 4.14 L (4.30-5.90) m/uL MCV 103.0 H (80.0-100.0) fL Neutrophils # 7.8 H (1.3-7.7) k/uL Lymphocytes # 0.5 L (1.0-4.8) k/uL Sodium 136 L (137-145) mmol/L Potassium 5.3 H (3.5-5.1) mmol/L BUN 6 L (9-20) mg/dL Creatinine 0.55 L (0.66-1.25) mg/dL Glucose 111 H (74-99) mg/dL AST 199 H (17-59) U/L ALT 119 H (21-72) U/L Alkaline Phosphatase 266 H (38-126) U/L Albumin 3.3 L (3.5-5.0) g/dL HDL Cholesterol (40-60) mg/dL Lipase 690 H (23-300) U/L Urine Ketones Trace H (Negative) Ur Leukocyte Esterase Large H (Negative) Urine WBC 13 H (0-5) /hpf Urine Bacteria Many H (None) /hpf Urine Yeast (Budding) Many H (None) /hpf 04/05/17 04/05/17 Range/Units 05:17 05:17 RBC (4.30-5.90) m/uL MCV (80.0-100.0) fL Neutrophils # (1.3-7.7) k/uL Lymphocytes # (1.0-4.8) k/uL Sodium (137-145) mmol/L Potassium (3.5-5.1) mmol/L BUN (9-20) mg/dL Creatinine (0.66-1.25) mg/dL Glucose (74-99) mg/dL AST (17-59) U/L ALT (21-72) U/L Alkaline Phosphatase (38-126) U/L Albumin (3.5-5.0) g/dL HDL Cholesterol 109 H (40-60) mg/dL Lipase 1029 H (23-300) U/L Urine Ketones (Negative) Ur Leukocyte Esterase (Negative) Urine WBC (0-5) /hpf Urine Bacteria (None) /hpf Urine Yeast (Budding) (None) /hpf Microbiology - Last 24 Hours (Table) 04/05/17 09:47 Urine Culture - Preliminary Urine,Catheterized 04/04/17 18:40 Urine Culture - Preliminary Urine,Catheterized Diabetes panel 04/04/17 04/05/17 Range/Units 17:24 05:17 Sodium 136 L (137-145) mmol/L Potassium 5.3 H (3.5-5.1) mmol/L Chloride 106 (98-107) mmol/L Carbon Dioxide 25 (22-30) mmol/L BUN 6 L (9-20) mg/dL Creatinine 0.55 L (0.66-1.25) mg/dL Glucose 111 H (74-99) mg/dL Calcium 9.3 (8.4-10.2) mg/dL AST 199 H (17-59) U/L ALT 119 H (21-72) U/L Alkaline Phosphatase 266 H (38-126) U/L Total Protein 6.7 (6.3-8.2) g/dL Albumin 3.3 L (3.5-5.0) g/dL Triglycerides 57 (<150) mg/dL HDL Cholesterol 109 H (40-60) mg/dL Calcium panel 04/04/17 Range/Units 17:24 Calcium 9.3 (8.4-10.2) mg/dL Albumin 3.3 L (3.5-5.0) g/dL Pituitary panel 04/04/17 Range/Units 17:24 Sodium 136 L (137-145) mmol/L Potassium 5.3 H (3.5-5.1) mmol/L Chloride 106 (98-107) mmol/L Carbon Dioxide 25 (22-30) mmol/L BUN 6 L (9-20) mg/dL Creatinine 0.55 L (0.66-1.25) mg/dL Glucose 111 H (74-99) mg/dL Calcium 9.3 (8.4-10.2) mg/dL Adrenal panel 11/15/17 Range/Units 17:24 Sodium 136 L (137-145) mmol/L Potassium 5.3 H (3.5-5.1) mmol/L Chloride 106 (98-107) mmol/L Carbon Dioxide 25 (22-30) mmol/L BUN 6 L (9-20) mg/dL Creatinine 0.55 L (0.66-1.25) mg/dL Glucose 111 H (74-99) mg/dL Calcium 9.3 (8.4-10.2) mg/dL Total Bilirubin 1.0 (0.2-1.3) mg/dL AST 199 H (17-59) U/L ALT 119 H (21-72) U/L Alkaline Phosphatase 266 H (38-126) U/L Total Protein 6.7 (6.3-8.2) g/dL Albumin 3.3 L (3.5-5.0) g/dL Assessment and Plan Assessment: The patient has 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 He has left vesicoureteral reflux which may have been related to this as well. He should continue intermittent catheterization frequently enough that he does not have more than 500 mL in his bladder at a time. He should not be treated for urinary tract infections unless he is symptomatic as bacteriuria and pyuria is common with self-catheterization. I plan no further evaluation. (1) History of urinary retention Current Visit: Yes Status: Acute Code(s): Z87.898 - PERSONAL HISTORY OF OTHER SPECIFIED CONDITIONS SNOMED Code(s): 572734927
[2017-04-05] MEDS: GABAPENTIN 300 MG CAP PO SCH ×2 (17:15→21:25)
[2017-04-05] MEDS: HYDROmorphone 2 MG/ML 1 ML SYRINGE IVP PRN ×2 (18:42→23:07)
[2017-04-05] MEDS: SYMBICORT 160-4.5 MCG INHALER INHALATION SCH (19:09)
[2017-04-05] MEDS: ATORVASTATIN 10 MG TAB PO SCH (21:25)
[2017-04-06] MEDS: MELATONIN 3 MG TABLET PO PRN (00:23)
[2017-04-06] MEDS: HYDROmorphone 2 MG/ML 1 ML SYRINGE IVP PRN ×5 (03:09→21:59)
[2017-04-06] MEDS: PANTOPRAZOLE 40 MG/10 ML VIAL IVP SCH (07:36)
[2017-04-06] MEDS: GABAPENTIN 300 MG CAP PO SCH ×3 (07:36→20:48)
[2017-04-06] MEDS: TAMSULOSIN 0.4 MG CAP.ER.24H PO SCH (07:36)
[2017-04-06] MEDS: FOLIC ACID 1 MG TAB PO SCH (07:36)
[2017-04-06] MEDS: NICOTINE 21MG/24HR PATCH TRANSDERM SCH (07:37)
[2017-04-06] MEDS: SYMBICORT 160-4.5 MCG INHALER INHALATION SCH ×2 (07:55→20:17)
[2017-04-06 08:38] LABS: Basophils % (A) 0 %; CHCM 31.2; Eosinophils # (A) 0.1 k/uL (0-0.7); Eosinophils % (A) 1 %; HCT 38.8 % (39.0-53.0); HDW 1.75; HGB 12.3 gm/dL (13.0-17.5); Luc # (Auto) 0.08; Luc % (Auto) 1; Lymphocytes % (A) 10 %; MCH 32.9 pg (25.0-35.0); MCHC 31.9 g/dL (31.0-37.0); MCV 103.2 fL (80.0-100.0); Macrocytosis Slight; Mean Platelet Volume 7.9; Monocytes # (A) 0.4 k/uL (0-1.0); Monocytes % (A) 4 %; Neutrophils # (A) 8.2 k/uL (1.3-7.7); Neutrophils % (A) 85 %; RBC 3.76 m/uL (4.30-5.90); RDW 13.8 % (11.5-15.5); WBC 9.6 k/uL (3.8-10.6); WBC (Perox) 9.64
[2017-04-06 08:48] LABS: ALT 73 U/L (21-72); AST 62 U/L (17-59); Alkaline Phosphatase 206 U/L (38-126); Anion Gap 9 mmol/L; Blood Urea Nitrogen 7 mg/dL (9-20); Calcium 8.3 mg/dL (8.4-10.2); Carbon Dioxide 20 mmol/L (22-30); Chloride 102 mmol/L (98-107); Glucose 61 mg/dL (74-99); Non-African American GFR(MDRD) >60 (>60 ml/min/1.73 sqM); Potassium 3.7 mmol/L (3.5-5.1); Sodium 131 mmol/L (137-145); Total Bilirubin 0.8 mg/dL (0.2-1.3); Total Protein 5.3 g/dL (6.3-8.2)
--- NOTE | 2017-04-06 09:50 | P.PN ---
Subjective Progress Note Date: 04/06/17 Principal diagnosis: Pancreatitis 46-year-old gentleman admitted with acute pancreatitis with history of alcohol abuse. Cholecystectomy March 21 for gallstones. Transaminases improving. Lipase pending. Requesting diet. Feels better. Objective - Vital Signs Vital signs: Vital Signs Temp 97.8 F 04/06/17 07:00 Pulse 70 04/06/17 07:00 Resp 16 04/06/17 07:00 BP 146/87 04/06/17 07:00 Pulse Ox 97 04/06/17 07:00 Intake & Output 04/05/17 04/06/17 04/06/17 18:59 06:59 18:59 Output Total 500 Balance -500 Weight 65.771 kg Output: Urine 500 Straight 500 Other: Voiding Method Indwelling Catheter Indwelling Catheter # Bowel Movements 0 - Exam General appearance: The patient is alert, oriented, in no acute distress. HET: Head is normocephalic and atraumatic. Pupils are equal and reactive. Oropharynx is clear without lesions. Neck: Supple without lymphadenopathy. Trachea midline. Heart: S1 S2. Regular rate and rhythm. Lungs: No crackles or wheezes are heard. Abdomen: Soft, mild tenderness to the mid abdomen, nondistended with bowel sounds. No peritoneal signs. No palpable organomegaly or masses. Extremities: Normal skin color and turgor. No cyanosis, rash, ulceration, clubbing, or edema. Radial and pedal pulses are 2/4 bilaterally. Neurological: No focal deficits. Strength and sensation are grossly intact. - Labs CBC & Chem 7: 04/06/17 07:48 04/06/17 07:48 Labs: Abnormal Lab Results - Last 24 Hours (Table) 04/05/17 Range/Units 05:17 Lipase 1029 H (23-300) U/L Microbiology - Last 24 Hours (Table) 04/04/17 18:40 Urine Culture - Final Urine,Catheterized Jolie glabrata 04/05/17 09:47 Urine Culture - Preliminary Urine,Catheterized Assessment and Plan (1) Acute on chronic pancreatitis Current Visit: No Status: Acute Code(s): K85.90 - ACUTE PANCREATITIS WITHOUT NECROSIS OR INFECTION, UNSP; K86.1 - OTHER CHRONIC PANCREATITIS SNOMED Code(s): 846882836 (2) History of cholelithiasis Current Visit: Yes Status: Acute Code(s): Z87.19 - PERSONAL HISTORY OF OTHER DISEASES OF THE DIGESTIVE SYSTEM SNOMED Code(s): 805543433 (3) History of laparoscopic cholecystectomy Current Visit: Yes Status: Acute Code(s): Z90.49 - ACQUIRED ABSENCE OF OTHER SPECIFIED PARTS OF DIGESTIVE TRACT SNOMED Code(s): 932251113 (4) History of alcohol abuse Current Visit: No Status: Acute Code(s): Z87.898 - PERSONAL HISTORY OF OTHER SPECIFIED CONDITIONS SNOMED Code(s): 137220312 Plan: 1. Clear liquids patient's abdominal pain is minimal. Not candidate for MRI secondary to recent lap sanford 2 weeks ago. 2. Supportive measures. Assessment and plan a care discussed with Dr. Martinez
[2017-04-06] MEDS: LORazepam 1 MG TAB PO PRN ×2 (10:48→17:45)
--- NOTE | 2017-04-06 16:42 | P.PN ---
Subjective Progress Note Date: 04/06/17 progress note being dictated for Dr. Pizano interval history:this is a 78-year-old male came in with complains of abdominal pain found to have elevated lipase patient has severe 10 x 10 epigastric abdominal pain patient had a history of gallstones in the past which was removed and patient does have alcohol abuse history can use to drink alcohol 4- 5 drinks patient last drink was about 3 days ago because of which my suspicion is low that patient will have all call withdraws patient will be nothing by mouth and will be on IV fluids patient does have elevated liver enzymes secondary to acute alcoholic hepatitis. Patient's abdominal pain sharp in nature and associated with nausea patient on clear liquid diet which will risk and urine patient will be nothing by mouth for today Review of Systems REVIEW OF SYSTEMS: CONSTITUTIONAL: No fever, no malaise, no fatigue. HEENT: No recent visual problems or hearing problems. Denied any sore throat. CARDIOVASCULAR: No chest pain, orthopnea, PND, no palpitations, no syncope. PULMONARY: No shortness of breath, no cough, no hemoptysis. GASTROINTESTINAL: As mentioned in HPI NEUROLOGICAL: No headaches, no weakness, no numbness. HEMATOLOGICAL: Denies any bleeding or petechiae. GENITOURINARY: Denies any burning micturition, frequency, or urgency. MUSCULOSKELETAL/RHEUMATOLOGICAL: Denies any joint pain, swelling, or any muscle pain. ENDOCRINE: Denies any polyuria or polydipsia. The rest of the 14-point review of systems is negative. 04/06/2017 Transaminases improving.Lipase doubled, up to 2200.Diet backed down to NPO status. states abdomen tender. denies chest pain, palpitations or increased shortness of breath. Objective - Vital Signs Vital signs: Vital Signs Temp 99.5 F 04/06/17 15:00 Pulse 88 04/06/17 15:00 Resp 16 04/06/17 15:00 BP 162/94 04/06/17 15:00 Pulse Ox 97 04/06/17 15:00 Intake & Output 04/05/17 04/06/17 04/06/17 18:59 06:59 18:59 Intake Total 250 Output Total 500 Balance -500 250 Weight 65.771 kg Intake: Oral 250 Output: Urine 500 Straight 500 Other: Voiding Method Indwelling Catheter Indwelling Catheter Indwelling Catheter # Bowel Movements 0 - Exam GENERAL: The patient is alert and oriented x3, not in any acute distress. Well developed, well nourished. HEENT: Pupils are round and equally reacting to light. EOMI. No scleral icterus. No conjunctival pallor. Normocephalic, atraumatic. No pharyngeal erythema. No thyromegaly. CARDIOVASCULAR: S1 and S2 present. No murmurs, rubs, or gallops. PULMONARY: Chest is clear to auscultation, no wheezing or crackles. ABDOMEN: Soft, mild epigastric abdominal tenderness, nondistended, normoactive bowel sounds. No palpable organomegaly. MUSCULOSKELETAL: No joint swelling or deformity. EXTREMITIES: No cyanosis, clubbing, or pedal edema. NEUROLOGICAL: Gross neurological examination did not reveal any focal deficits. SKIN: No rashes. - Labs CBC & Chem 7: 04/06/17 07:48 04/06/17 07:48 Labs: Abnormal Lab Results - Last 24 Hours (Table) 04/06/17 04/06/17 04/06/17 Range/Units 07:48 07:48 07:48 RBC 3.76 L (4.30-5.90) m/uL Hgb 12.3 L (13.0-17.5) gm/dL Hct 38.8 L (39.0-53.0) % MCV 103.2 H (80.0-100.0) fL Neutrophils # 8.2 H (1.3-7.7) k/uL Sodium 131 L (137-145) mmol/L Carbon Dioxide 20 L (22-30) mmol/L BUN 7 L (9-20) mg/dL Creatinine 0.50 L (0.66-1.25) mg/dL Glucose 61 L (74-99) mg/dL Calcium 8.3 L (8.4-10.2) mg/dL AST 62 H (17-59) U/L ALT 73 H (21-72) U/L Alkaline Phosphatase 206 H (38-126) U/L Total Protein 5.3 L (6.3-8.2) g/dL Albumin 2.6 L (3.5-5.0) g/dL Lipase 2208 H (23-300) U/L Microbiology - Last 24 Hours (Table) 04/05/17 09:47 Urine Culture - Preliminary Urine,Catheterized Coagulase Negative Staph 04/04/17 18:40 Urine Culture - Final Urine,Catheterized Jolie glabrata Assessment and Plan Assessment: #1 abdominal pain: Seconded to either gastritis or pancreatitis, both alcohol based #2 acute alcoholic hepatitis: Counseling was provided #3 monitored for alcohol withdrawal may concern for alcohol withdrawal is low as patient last drink was more than 3 days ago 4 hyperkalemia: Secondary to hemolysis #5 history of back surgeries in the past patient does straight catheterizations at home plan: Continue on current medication regime ,monitoring. Lipase doubled. Diet backed down to NPO. IV fluids initiated. Follow closely with GI. Close monitoring of lipase. The impression and plan of care has been dictated as directed. : I performed a history and examination of this patient, discussed the same with the dictator. I agree with the dictator's note ,documented as a scribe. Any additional findings or plans will be noted.
[2017-04-06] MEDS: PANTOPRAZOLE 40 MG TABLET PO SCH (17:46)
[2017-04-06] MEDS: SODIUM CHLORIDE 0.9% 1,000 ML IV SCH (18:21)
[2017-04-06] MEDS: ATORVASTATIN 10 MG TAB PO SCH (20:48)
[2017-04-06] MEDS: ONDANSETRON 4 MG/2 ML VIAL IVP PRN (21:06)
[2017-04-07] MEDS: SODIUM CHLORIDE 0.9% 1,000 ML IV SCH ×5 (00:37→20:12)
[2017-04-07] MEDS: HYDROmorphone 2 MG/ML 1 ML SYRINGE IVP PRN ×5 (02:52→22:26)
[2017-04-07] MEDS: MELATONIN 3 MG TABLET PO PRN (03:16)
[2017-04-07] MEDS: LORazepam 1 MG TAB PO PRN ×3 (03:24→22:59)
[2017-04-07] MEDS: ONDANSETRON 4 MG/2 ML VIAL IVP PRN ×3 (08:40→20:13)
[2017-04-07] MEDS: PANTOPRAZOLE 40 MG TABLET PO SCH ×2 (08:41→17:02)
[2017-04-07] MEDS: GABAPENTIN 300 MG CAP PO SCH ×3 (08:41→20:12)
[2017-04-07] MEDS: NICOTINE 21MG/24HR PATCH TRANSDERM SCH (08:41)
[2017-04-07] MEDS: SYMBICORT 160-4.5 MCG INHALER INHALATION SCH ×2 (08:43→19:58)
[2017-04-07] MEDS: TAMSULOSIN 0.4 MG CAP.ER.24H PO SCH (11:20)
[2017-04-07] MEDS: FOLIC ACID 1 MG TAB PO SCH (11:20)
--- NOTE | 2017-04-07 12:20 | P.PN ---
Subjective Patient was admitted for pancreatitis patient has significant improvement in his symptoms today patient's will be started back on diet and advance her diet repeat lipase tomorrow again. Constitutional: Denied any fatigue denied any fever. Cardio vascular: denied any chest pain, palpitations Gastrointestinal denied any nausea vomiting Pulmonary: Denied any shortness of breath cough Neurologic denied any new focal deficits Objective - Vital Signs Vital signs: Vital Signs Temp 98.1 F 04/07/17 07:00 Pulse 80 04/07/17 07:00 Resp 16 04/07/17 07:00 BP 148/87 04/07/17 07:00 Pulse Ox 93 L 04/07/17 07:00 Intake & Output 04/06/17 04/07/17 04/07/17 18:59 06:59 18:59 Intake Total 250 0 Output Total 425 700 Balance -175 -700 Intake: Oral 250 0 Output: Urine 425 700 Straight 425 700 Other: Voiding Method Indwelling Catheter Toilet Urinal Self-Catheterization # Voids 1 # Bowel Movements 0 - Exam GENERAL: The patient is alert and oriented x3, not in any acute distress. Well developed, well nourished. HEENT: Pupils are round and equally reacting to light. EOMI. No scleral icterus. No conjunctival pallor. Normocephalic, atraumatic. No pharyngeal erythema. No thyromegaly. CARDIOVASCULAR: S1 and S2 present. No murmurs, rubs, or gallops. PULMONARY: Chest is clear to auscultation, no wheezing or crackles. ABDOMEN: Soft, mild epigastric abdominal tenderness, nondistended, normoactive bowel sounds. No palpable organomegaly. MUSCULOSKELETAL: No joint swelling or deformity. EXTREMITIES: No cyanosis, clubbing, or pedal edema. NEUROLOGICAL: Gross neurological examination did not reveal any focal deficits. SKIN: No rashes. - Labs CBC & Chem 7: 04/06/17 07:48 04/06/17 07:48 Labs: Abnormal Lab Results - Last 24 Hours (Table) 04/07/17 Range/Units 10:29 Lipase 803 H (23-300) U/L Microbiology - Last 24 Hours (Table) 04/05/17 09:47 Urine Culture - Preliminary Urine,Catheterized Coagulase Negative Staph Assessment and Plan Plan: #1 abdominal pain: Possibly a fever alcohol he gastritis or pancreatitis advance her diet as tolerated continue IV fluids will cut down the IV fluids to 75 mL per hour #2 acute alcoholic hepatitis: Counseling was provided #3 monitored for alcohol withdrawal may concern for alcohol withdrawal is low as patient last drink was more than 3 days ago #5 history of back surgeries in the past patient does straight catheterizations at home
[2017-04-07] MEDS: ATORVASTATIN 10 MG TAB PO SCH (20:12)
[2017-04-08 00:32] VITALS: RESP 20
[2017-04-08] MEDS: HYDROmorphone 2 MG/ML 1 ML SYRINGE IVP PRN ×2 (03:39→09:15)
[2017-04-08] MEDS: LORazepam 1 MG TAB PO PRN (04:23)
[2017-04-08] MEDS: GABAPENTIN 300 MG CAP PO SCH (05:01)
[2017-04-08 08:00] LABS: ALT 51 U/L (21-72); AST 20 U/L (17-59); Alkaline Phosphatase 158 U/L (38-126); Anion Gap 7 mmol/L; Blood Urea Nitrogen <2 mg/dL (9-20); Calcium 8.7 mg/dL (8.4-10.2); Carbon Dioxide 22 mmol/L (22-30); Chloride 107 mmol/L (98-107); Glucose 131 mg/dL (74-99); Non-African American GFR(MDRD) >60 (>60 ml/min/1.73 sqM); Potassium 3.6 mmol/L (3.5-5.1); Sodium 136 mmol/L (137-145); Total Bilirubin 0.4 mg/dL (0.2-1.3); Total Protein 5.5 g/dL (6.3-8.2)
[2017-04-08 08:05] VITALS: BP 143/85; PULSE 89; TEMP 98.7
[2017-04-08] MEDS: SYMBICORT 160-4.5 MCG INHALER INHALATION SCH (08:08)
[2017-04-08] MEDS: ONDANSETRON 4 MG/2 ML VIAL IVP PRN (08:50)
[2017-04-08] MEDS: NICOTINE 21MG/24HR PATCH TRANSDERM SCH (09:07)
[2017-04-08] MEDS: PANTOPRAZOLE 40 MG TABLET PO SCH (09:07)
--- NOTE | 2017-04-08 14:46 | P.DS ---
Providers Date of admission: 04/04/17 20:57 Attending physician: Socorro Barragan Consults: 04/04/17 20:57 Consult Physician Routine Consulting Provider: Cory Montalvo Consult Reason/Comments: ureter stricture Do you want consulting provider notified?: Yes Consult Physician Routine Consulting Provider: Aileen Genao Consult Reason/Comments: Pancreatitis, postoperative care Do you want consulting provider notified?: Yes Consult Physician Urgent Consulting Provider: Consuelo Kellogg Consult Reason/Comments: Pancreatitis Do you want consulting provider notified?: Yes [facility]: Patient was admitted for pancreatitis patient has significant improvement in his symptoms today , able to tolerate diet very well patient wanted to be discharged patient was discharged today in stable medical condition to home PHYSICAL EXAMINATION: GENERAL: The patient is alert and oriented x3, not in any acute distress. Well developed, well nourished. HEENT: Pupils are round and equally reacting to light. EOMI. No scleral icterus. No conjunctival pallor. Normocephalic, atraumatic. No pharyngeal erythema. No thyromegaly. CARDIOVASCULAR: S1 and S2 present. No murmurs, rubs, or gallops. PULMONARY: Chest is clear to auscultation, no wheezing or crackles. ABDOMEN: Soft, nontender, nondistended, normoactive bowel sounds. No palpable organomegaly. MUSCULOSKELETAL: No joint swelling or deformity. EXTREMITIES: No cyanosis, clubbing, or pedal edema. NEUROLOGICAL: Gross neurological examination did not reveal any focal deficits. SKIN: No rashes. #1 abdominal pain: Possibly a fever alcohol he gastritis or pancreatitis #2 acute alcoholic hepatitis: Counseling was provided #3 monitored for alcohol withdrawal may concern for alcohol withdrawal is low as patient last drink was more than 3 days ago #5 history of back surgeries in the past patient does straight catheterizations at home for chronic urinary retention Plan - Discharge Summary New Discharge Prescriptions: No Action Folic Acid 1 mg PO DAILY #30 tablet Atorvastatin [Lipitor] 10 mg PO HS Tamsulosin HCl [Flomax] 0.4 mg PO DAILY Gabapentin [Neurontin] 300 mg PO TID LORazepam [Ativan] 0.5 mg PO TID PRN #30 tab PRN Reason: Anxiety traMADol HCL [Ultram] 50 mg PO Q6H PRN PRN Reason: Pain Multivitamins, Thera [Multivitamin (formulary)] 1 tab PO DAILY Albuterol Inhaler [Ventolin Hfa Inhaler] 2 puff INHALATION RT-Q4H PRN PRN Reason: Shortness Of Breath Ondansetron Odt [Zofran Odt] 4 mg PO Q8HR PRN PRN Reason: Nausea traZODone HCL 50 mg PO HS Omeprazole [PriLOSEC] 20 mg PO AC-BID PRN PRN Reason: Acid Reflux/Heartburn Budesonide/Formoterol Fumarate [Symbicort 80-4.5 Mcg Inhaler] 1 puff INHALATION RT-BID Cholecalciferol (Vitamin D3) [Vitamin D3] 2,000 unit PO DAILY Discharge Medication List Folic Acid 1 mg PO DAILY #30 tablet 07/15/15 [Rx] Atorvastatin [Lipitor] 10 mg PO HS 09/27/15 [History] Gabapentin [Neurontin] 300 mg PO TID 12/18/16 [History] Tamsulosin HCl [Flomax] 0.4 mg PO DAILY 12/18/16 [History] LORazepam [Ativan] 0.5 mg PO TID PRN #30 tab 12/22/16 [Rx] traMADol HCL [Ultram] 50 mg PO Q6H PRN 02/22/17 [History] Albuterol Inhaler [Ventolin Hfa Inhaler] 2 puff INHALATION RT-Q4H PRN 03/01/17 [ History] Multivitamins, Thera [Multivitamin (formulary)] 1 tab PO DAILY 03/01/17 [History ] Budesonide/Formoterol Fumarate [Symbicort 80-4.5 Mcg Inhaler] 1 puff INHALATION RT-BID 04/04/17 [History] Cholecalciferol (Vitamin D3) [Vitamin D3] 2,000 unit PO DAILY 04/04/17 [History] Omeprazole [PriLOSEC] 20 mg PO AC-BID PRN 04/04/17 [History] Ondansetron Odt [Zofran Odt] 4 mg PO Q8HR PRN 04/04/17 [History] traZODone HCL 50 mg PO HS 04/04/17 [History] Follow up Appointment(s)/Referral(s): Jessa Jones III, MD [Primary Care Provider] - 3 Days Patient Instructions/Handouts: How to Stop Smoking (GEN), Pancreatitis (GEN) Activity/Diet/Wound Care/Special Instructions: Regular diet as tolerated. Activity as tolerated. Refrain from alcohol use. Discharge Disposition: HOME SELF-CARE
== END 2017-04-08 12:27 | disposition home or self-care (01) | DRG 439 ==
LOC: EC 16:09 → 4MS4W 20:57
PROVIDERS: ADMIT Hospitalist; ATTEND Hospitalist
DX: K85.20 Alcohol induced acute pancreatitis without necrosis or infection (principal); N39.0 Urinary tract infection, site not specified; E87.5 Hyperkalemia; K70.10 Alcoholic hepatitis without ascites; K86.0 Alcohol-induced chronic pancreatitis; N31.2 Flaccid neuropathic bladder, not elsewhere classified; N13.70 Vesicoureteral-reflux, unspecified; N13.5 Crossing vessel and stricture of ureter without hydronephrosis; K29.20 Alcoholic gastritis without bleeding; F32.9 Major depressive disorder, single episode, unspecified; F17.200 Nicotine dependence, unspecified, uncomplicated; F41.9 Anxiety disorder, unspecified; K21.9 Gastro-esophageal reflux disease without esophagitis; F10.10 Alcohol abuse, uncomplicated; R33.9 Retention of urine, unspecified; Z79.899 Other long term (current) drug therapy; Z87.442 Personal history of urinary calculi; Z90.49 Acquired absence of other specified parts of digestive tract; Z82.49 Family history of ischemic heart disease and other diseases of the circulatory system
CPT/HCPCS: 36415; 71020; 80053; 80061; 81001; 82150; 82550; 82553; 83690; 83735; 84484; 85025; 85610; 85730; 87086; 93005; 94640; 96374; 99285

== ENCOUNTER 2017-05-22 12:37 | Inpatient (IN) | payer MEDICARE, OTHER ==
[2017-05-22] MEDS ORDERED: ASPIRIN 81 MG PO STA (13:11)
[2017-05-22] MEDS ORDERED: NITROGLYCERIN OINT 1 INCH/GM PACKET TOPICAL STA (13:11)
--- NOTE | 2017-05-22 13:17 | ED ---
General Adult HPI - General Chief complaint: Chest Pain Stated complaint: Chest Pain Time Seen by Provider: 05/22/17 13:15 Source: patient, RN notes reviewed Mode of arrival: wheelchair Limitations: no limitations - History of Present Illness Initial comments: This is a 46-year-old male who presents to the emergency department stating that he has had a history of pancreatitis comes in today because he got epigastric abdominal pain. Patient states since 4:30 this morning his been vomiting and he continues to have epigastric abdominal pain. Patient states occasionally has some chest pain as well. Patient denies any diarrhea. Patient denies any fever chills per patient denies any shortness of breath. Patient denies any palpitations. Patient denies any patient denies numbness or weakness patient denies any headache patient denies any lightheadedness dizziness or near syncopal episode - Related Data Home Medications Medication Instructions Recorded Confirmed Atorvastatin [Lipitor] 10 mg PO HS 09/27/15 05/22/17 Gabapentin [Neurontin] 300 mg PO TID 12/18/16 05/22/17 Tamsulosin HCl [Flomax] 0.4 mg PO DAILY 12/18/16 05/22/17 traMADol HCL [Ultram] 50 mg PO Q6H PRN 02/22/17 05/22/17 Albuterol Inhaler [Ventolin Hfa 2 puff INHALATION RT-Q4H PRN 03/01/17 05/22/17 Inhaler] Multivitamins, Thera [Multivitamin 1 tab PO DAILY 03/01/17 05/22/17 (formulary)] Budesonide/Formoterol Fumarate 1 puff INHALATION RT-BID 04/04/17 05/22/17 [Symbicort 80-4.5 Mcg Inhaler] Cholecalciferol (Vitamin D3) 2,000 unit PO DAILY 04/04/17 05/22/17 [Vitamin D3] Ondansetron Odt [Zofran Odt] 4 mg PO Q8HR PRN 04/04/17 05/22/17 traZODone HCL 50 mg PO HS 04/04/17 05/22/17 Previous Rx's Medication Instructions Recorded Folic Acid 1 mg PO DAILY #30 tablet 07/15/15 LORazepam [Ativan] 0.5 mg PO TID PRN #30 tab 08/04/17 Omeprazole [PriLOSEC] 40 mg PO BID #60 capsule. 05/16/17 Thiamine [Vitamin B-1] 100 mg PO DAILY #30 tablet 05/16/17 Allergies Allergy/AdvReac Type Severity Reaction Status Date / Time No Known Allergies Allergy Verified 05/22/17 12:50 Review of Systems ROS Statement: Those systems with pertinent positive or pertinent negative responses have been documented in the HPI. ROS Other: All systems not noted in ROS Statement are negative. Past Medical History Past Medical History: GERD/Reflux, Pneumonia Additional Past Medical History / Comment(s): ETOH ABUSE, CHRONIC PANCREATITIS, ALCOHOLIC HEPATITIS, NEPHROLITHIASIS, CHRONIC URINARY RETENTION DUE TO BACK PROBLEMS-SELF CATHS, LUNG ISSUES-TO BE WORKDED UP BY DR. PARMINDER CONNER. History of Any Multi-Drug Resistant Organisms: None Reported Past Surgical History: Back Surgery, Cholecystectomy, Orthopedic Surgery Additional Past Surgical History / Comment(s): Bronchoscopy, BACK surgery with TITANIUM PLATES MILTON and CAGES, KIDNEY STONES removed per pt, SPINAL CORD STIMULATOR, ISMAEL KNEE ARTHROSCOPIES, PINKY FINGER RT HAND REATTATCHED Past Anesthesia/Blood Transfusion Reactions: No Reported Reaction Past Psychological History: Anxiety, Depression Smoking Status: Current every day smoker Past Alcohol Use History: Abuse, Daily Past Drug Use History: None Reported - Past Family History Father Family Medical History: Diabetes Mellitus Additional Family Medical History / Comment(s): Mother Family Medical History: Dementia, Hyperlipidemia, Hypertension Additional Family Medical History / Comment(s): Mother is living. General Exam - General Exam Comments Initial Comments: GENERAL: Patient is well-developed and well-nourished. Patient is nontoxic and well- hydrated and is in mild distress. ENT: Neck is soft and supple. No significant lymphadenopathy is noted. Oropharynx is clear. Moist mucous membranes. Neck has full range of motion without eliciting any pain. EYES: The sclera were anicteric and conjunctiva were pink and moist. Extraocular movements were intact and pupils were equal round and reactive to light. Eyelids were unremarkable. PULMONARY: Unlabored respirations. Good breath sounds bilaterally. No audible rales rhonchi or wheezing was noted. CARDIOVASCULAR: There is a regular rate and rhythm without any murmurs gallops or rubs. ABDOMEN: Epigastric abdominal pain. No palpable organomegaly was noted. There is no palpable pulsatile mass. SKIN: Skin is clear with no lesions or rashes and otherwise unremarkable. NEUROLOGIC: Patient is alert and oriented x3. Cranial nerves II through XII are grossly intact. Motor and sensory are also intact. Normal speech, volume and content. Symmetrical smile. MUSCULOSKELETAL: Normal extremities with adequate strength and full range of motion. LYMPHATICS: No significant lymphadenopathy is noted PSYCHIATRIC: Normal psychiatric evaluation. Limitations: no limitations Course Vital Signs 05/22/17 05/22/17 05/22/17 12:44 13:26 13:55 Temperature 98.3 F Pulse Rate 114 H 112 H 110 H Respiratory 18 18 18 Rate Blood Pressure 136/80 124/96 136/89 O2 Sat by Pulse 100 100 100 Oximetry 05/22/17 15:11 Temperature 98.0 F Pulse Rate 111 H Respiratory 18 Rate Blood Pressure 126/90 O2 Sat by Pulse 98 Oximetry Medical Decision Making - Medical Decision Making EKG shows sinus tachycardia at 70 bpm NM interval is 154 QRS is 78 QT interval 3 :30 QTC is 460. Patient's EKG shows no ST segment elevation or depression or T wave abnormalities are noted. I spoke with Dr. Diallo he agreed to admit the patient I admitted the patient I wrote admitting orders - Lab Data Result diagrams: 05/22/17 13:15 05/22/17 13:46 Lab Results 05/22/17 05/22/17 05/22/17 Range/Units 13:15 13:15 13:46 WBC 14.4 H (3.8-10.6) k/uL RBC 3.98 L (4.30-5.90) m/uL Hgb 12.8 L (13.0-17.5) gm/dL Hct 39.5 (39.0-53.0) % MCV 99.1 (80.0-100.0) fL MCH 32.3 (25.0-35.0) pg MCHC 32.5 (31.0-37.0) g/dL RDW 14.4 (11.5-15.5) % Plt Count 585 H (150-450) k/uL Neutrophils % 91 % Lymphocytes % 4 % Monocytes % 3 % Eosinophils % 1 % Basophils % 0 % Neutrophils # 13.1 H (1.3-7.7) k/uL Lymphocytes # 0.6 L (1.0-4.8) k/uL Monocytes # 0.5 (0-1.0) k/uL Eosinophils # 0.1 (0-0.7) k/uL Basophils # 0.0 (0-0.2) k/uL PT 9.5 (9.0-12.0) sec INR 1.0 (<1.2) APTT 22.4 (22.0-30.0) sec Sodium 137 (137-145) mmol/L Potassium 4.4 (3.5-5.1) mmol/L Chloride 100 (98-107) mmol/L Carbon Dioxide 28 (22-30) mmol/L Anion Gap 9 mmol/L BUN 3 L (9-20) mg/dL Creatinine 0.56 L (0.66-1.25) mg/dL Est GFR (MDRD) Af Amer >60 (>60 ml/min/1.73 sqM) Est GFR (MDRD) Non-Af >60 (>60 ml/min/1.73 sqM) Glucose 137 H (74-99) mg/dL Calcium 9.5 (8.4-10.2) mg/dL Magnesium 1.8 (1.6-2.3) mg/dL Total Bilirubin 0.4 (0.2-1.3) mg/dL AST 15 L (17-59) U/L ALT 30 (21-72) U/L Alkaline Phosphatase 198 H (38-126) U/L Total Creatine Kinase (55-170) U/L CK-MB (CK-2) (0.0-2.4) ng/mL CK-MB (CK-2) Rel Index Troponin I (0.000-0.034) ng/mL Total Protein 6.3 (6.3-8.2) g/dL Albumin 3.2 L (3.5-5.0) g/dL Amylase (30-110) U/L Lipase (23-300) U/L 05/22/17 05/22/17 Range/Units 13:46 13:46 WBC (3.8-10.6) k/uL RBC (4.30-5.90) m/uL Hgb (13.0-17.5) gm/dL Hct (39.0-53.0) % MCV (80.0-100.0) fL MCH (25.0-35.0) pg MCHC (31.0-37.0) g/dL RDW (11.5-15.5) % Plt Count (150-450) k/uL Neutrophils % % Lymphocytes % % Monocytes % % Eosinophils % % Basophils % % Neutrophils # (1.3-7.7) k/uL Lymphocytes # (1.0-4.8) k/uL Monocytes # (0-1.0) k/uL Eosinophils # (0-0.7) k/uL Basophils # (0-0.2) k/uL PT (9.0-12.0) sec INR (<1.2) APTT (22.0-30.0) sec Sodium (137-145) mmol/L Potassium (3.5-5.1) mmol/L Chloride (98-107) mmol/L Carbon Dioxide (22-30) mmol/L Anion Gap mmol/L BUN (9-20) mg/dL Creatinine (0.66-1.25) mg/dL Est GFR (MDRD) Af Amer (>60 ml/min/1.73 sqM) Est GFR (MDRD) Non-Af (>60 ml/min/1.73 sqM) Glucose (74-99) mg/dL Calcium (8.4-10.2) mg/dL Magnesium (1.6-2.3) mg/dL Total Bilirubin (0.2-1.3) mg/dL AST (17-59) U/L ALT (21-72) U/L Alkaline Phosphatase (38-126) U/L Total Creatine Kinase 29 L (55-170) U/L CK-MB (CK-2) 0.3 (0.0-2.4) ng/mL CK-MB (CK-2) Rel Index 1.0 Troponin I <0.012 (0.000-0.034) ng/mL Total Protein (6.3-8.2) g/dL Albumin (3.5-5.0) g/dL Amylase 173 H (30-110) U/L Lipase 2072 H (23-300) U/L Disposition Clinical Impression: Acute pancreatitis Disposition: ADMITTED IP TO THIS HOSP Referrals: Jessa Jones III, MD [Primary Care Provider] - 1-2 days Time of Disposition: 15:20
[2017-05-22 13:29] LABS: Basophils % (A) 0 %; Eosinophils # (A) 0.1 k/uL (0-0.7); Eosinophils % (A) 1 %; HCT 39.5 % (39.0-53.0); HGB 12.8 gm/dL (13.0-17.5); Lymphocytes # (A) 0.6 k/uL (1.0-4.8); Lymphocytes % (A) 4 %; MCH 32.3 pg (25.0-35.0); MCHC 32.5 g/dL (31.0-37.0); MCV 99.1 fL (80.0-100.0); Mean Platelet Volume 7.4; Monocytes # (A) 0.5 k/uL (0-1.0); Monocytes % (A) 3 %; Neutrophils # (A) 13.1 k/uL (1.3-7.7); Neutrophils % (A) 91 %; Platelet Count 585 k/uL (150-450); RBC 3.98 m/uL (4.30-5.90); RDW 14.4 % (11.5-15.5); WBC 14.4 k/uL (3.8-10.6)
--- NOTE | 2017-05-22 13:38 | XR ---
EXAMINATION TYPE: XR chest 2V DATE OF EXAM: 05/22/2017 COMPARISON: 05/14/2017 TECHNIQUE: PA and lateral views submitted. HISTORY: Chest pain FINDINGS: The lungs are clear and there is no pneumothorax, pleural effusion, or focal pneumonia. Stimulator device overlying the spinal canal. Degenerative change of the spine noted. Heart size stable. Atheros clerotic change aorta. No overt failure. Arthropathy of the shoulders and diffuse osteopenia. IMPRESSION: 1. No acute process.
[2017-05-22 13:39] LABS: Partial Thromboplastin Time 22.4 sec (22.0-30.0)
[2017-05-22 13:41] LABS: Prothrombin Time 9.5 sec (9.0-12.0)
[2017-05-22] MEDS ORDERED: KETOROLAC 30 MG/ML 1 ML VIAL IVP STA (13:52)
[2017-05-22 14:01] LABS: ALT 30 U/L (21-72); AST 15 U/L (17-59); Albumin 3.2 g/dL (3.5-5.0); Alkaline Phosphatase 198 U/L (38-126); Anion Gap 9 mmol/L; Blood Urea Nitrogen 3 mg/dL (9-20); Calcium 9.5 mg/dL (8.4-10.2); Carbon Dioxide 28 mmol/L (22-30); Chloride 100 mmol/L (98-107); Glucose 137 mg/dL (74-99); Magnesium 1.8 mg/dL (1.6-2.3); Potassium 4.4 mmol/L (3.5-5.1); Sodium 137 mmol/L (137-145); Total Bilirubin 0.4 mg/dL (0.2-1.3); Total Protein 6.3 g/dL (6.3-8.2)
[2017-05-22] MEDS ORDERED: ONDANSETRON 4 MG/2 ML VIAL IVP STA ×2 (14:12→15:37)
[2017-05-22 14:14] LABS: Creatine Kinase 29 U/L (55-170)
[2017-05-22 14:25] LABS: Creatine Kinase MB 0.3 ng/mL (0.0-2.4); Troponin I <0.012 ng/mL (0.000-0.034)
[2017-05-22 14:54] LABS: Amylase 173 U/L (30-110)
[2017-05-22 15:01] LABS: Lipase 2072 U/L (23-300)
[2017-05-22] MEDS ORDERED: HYDROmorphone 1 MG/ML 1 ML SYRINGE IVP STA (15:11)
[2017-05-22] MEDS: SODIUM CHLORIDE 0.9% 1,000 ML IV SCH (15:42)
[2017-05-22] MEDS ORDERED: LORazepam 2 MG/ML INJ IV PRN ×3 (16:18)
[2017-05-22] MEDS ORDERED: traMADol 50 MG TAB PO PRN (16:19)
[2017-05-22] MEDS ORDERED: LORazepam 0.5 MG TAB PO PRN (16:19)
[2017-05-22] MEDS ORDERED: THIAMINE 100 MG/ML 2 ML VIAL IM STA (16:20)
[2017-05-22] MEDS ORDERED: IPRATROPIUM-ALBUTEROL 3 ML NEB INHALATION PRN (16:20)
[2017-05-22] MEDS: PANTOPRAZOLE 40 MG TABLET PO SCH (17:17)
[2017-05-22] MEDS ORDERED: ONDANSETRON ODT 4 MG TAB PO PRN (18:14)
[2017-05-22] MEDS ORDERED: ALBUTEROL NEBULIZED 2.5 MG/3 ML INHALATION PRN (18:14)
[2017-05-22] MEDS ORDERED: TEMAZEPAM 15 MG CAP PO PRN (18:15)
[2017-05-22] MEDS: SYMBICORT 80-4.5 MCG INHALER INHALATION SCH (19:11)
[2017-05-22] MEDS: IPRATROPIUM-ALBUTEROL 3 ML NEB INHALATION SCH (19:11)
[2017-05-22 20:39] LABS: Appearance,Urine Cloudy (Clear); Bilirubin,Urine Negative (Negative); Blood,Urine Trace (Negative); Budding Yeast,Urine Rare /hpf; Color,Urine Yellow; Glucose,Urine (UA) Negative (Negative); Hyaline Casts,Urine 14 /lpf (0-2); Ketones,Urine Negative (Negative); Leukocyte Esterase,Urine Large (Negative); Mucus,Urine Moderate /hpf; Nitrite,Urine Negative (Negative); PH, Urine 6.5 (5.0-8.0); Protein,Urine Trace (Negative); RBC,Urine 12 /hpf (0-5); Specific Gravity,Urine 1.009 (1.001-1.035); Urobilinogen,Urine <2.0 mg/dL (<2.0); WBC,Urine 119 /hpf (0-5)
[2017-05-22 20:44] LABS: Cocaine Screen,Urine Not Detected (NotDetected); Opiate Screen,Urine Detected (NotDetected); Phencyclidine Screen,Urine Not Detected (NotDetected); Urn Cannabinoid Scrn Not Detected (NotDetected)
[2017-05-22 20:45] LABS: Amphetamine Screen,Urine Not Detected (NotDetected); Barbiturate Screen,Urine Not Detected (NotDetected); Benzodiazepines Screen,Urine Detected (NotDetected); Methadone Screen, Urine Not Detected (NotDetected); Oxycodone Screen, Urine Not Detected (NotDetected); Tricyclic Antidepressant,Urine Not Detected (NotDetected)
[2017-05-22] MEDS: HYDROmorphone 1 MG/ML 1 ML SYRINGE IVP PRN (20:53)
[2017-05-22] MEDS: ONDANSETRON 4 MG/2 ML VIAL IVP PRN (20:54)
[2017-05-22] MEDS: traZODone HCL 50 MG TAB PO SCH (20:56)
[2017-05-22] MEDS: GABAPENTIN 300 MG CAP PO SCH (20:56)
[2017-05-22] MEDS: ATORVASTATIN 10 MG TAB PO SCH (20:56)
[2017-05-22] MEDS: HEPARIN SODIUM,PORCINE 5,000 UNIT/ML 1 ML VIAL SQ SCH (20:57)
--- NOTE | 2017-05-22 23:01 | HP ---
HISTORY AND PHYSICAL DATE OF ADMISSION: 05/22/2017 CHIEF COMPLAINT: Chest pain. HISTORY OF PRESENT ILLNESS: This 40-year-old gentleman with a past medical history of multiple medical illnesses and GERD, hyperlipidemia, history of pneumonia, history of history EtOH use, chronic pancreatitis being followed by Dr. Jones in the outpatient setting with multiple admissions for abdominal pain with pancreatitis. Currently the patient is complaining of epigastric discomfort and pain since 4:30 in the morning, presented with vomiting and because of continuous symptomatology, patient came to [facility] and admitted for further evaluation and treatment. There is no history of any fever, rigors, chills. The patient has seen Gastroenterology previously. The amylase is 2173 and lipase is 2072. The patient drank alcohol a few days according to him. The patient drinking up to 6 alcohols per week according to him. PAST MEDICAL HISTORY: History of GERD, hypertension, hyperlipidemia, history of prostate disorder, chronic congestive heart failure with chronic lapses in pancreatitis secondary to alcohol. HOME MEDICATIONS ARE: 1. Trazodone 50 mg at bedtime. 2. Ultram 50 mg q.6h p.r.n. 3. Vitamin B1 100 mg p.o. daily. 4. Flomax 0.4 daily. 5. Zofran 4 mg q.8h p.r.n. 6. Prilosec 40 mg p.o. b.i.d. 7. Multivitamins 1 p.o. daily. 8. Ativan 0.5 t.i.d. 9. Neurontin 300 mg t.i.d. 10.Folic acid 1 mg p.o. daily. 11.Vitamin D3 2000 daily. 12.Symbicort 80/4.5 1 puff b.i.d. 13.Lipitor 10 mg. 14.Ventolin 2 puffs q.4h p.r.n. ALLERGIES: None. FAMILY HISTORY: History of diabetes mellitus in the family. SOCIAL HISTORY: History of alcohol and history of smoking. REVIEW OF SYSTEMS: ENT: No diminished hearing or vision. CARDIOVASCULAR: No angina or palpitations. RESPIRATORY: As mentioned earlier. GI: As mentioned earlier. : No dysuria. Nervous System: No numbness or weakness. ALLERGY/IMMUNOLOGY: No asthma or hayfever. ENDOCRINE: As mentioned earlier. HEMATOLOGY/ONCOLOGY: No history of anemia. CONSTITUTIONAL: As mentioned earlier. DERMATOLOGY: Negative. RHEUMATOLOGY: Negative. PSYCHIATRIC: As mentioned earlier. PHYSICAL EXAMINATION: Alert oriented x3. Pulse 102, blood pressure 119/81, respiration 18, temperature 98.7, pulse ox 98% on room air. HEENT is conjunctivae normal. Neck is no jugular venous distention. Cardiovascular systems: S1, S2 muffled. Respirations: Breath sounds diminished in the bases. No rhonchi and no crackles. ABDOMEN: Soft. Mild diffuse tenderness in the epigastrium. No guarding. No rigidity. No mass palpable. Legs no edema. No swelling. Nervous system: Higher functions as mentioned earlier. Moves all four extremities. No focal motor or sensory deficits. Lymphatics: No lymph nodes palpable in the neck, axillae or groin. Skin: No ulcer, rashes or bleeding. LABS: WBC 14.4, hemoglobin 12.8. Amylase and lipase noted. ASSESSMENT: 1. Acute abdominal epigastric pain, possible acute pancreatitis. 2. History of recurrent relapsing chronic pancreatitis secondary to alcohol. 3. Increased WBC. 4. Anemia. 5. Gastroesophageal reflux disease. 6. Hyperlipidemia. 7. History of pneumonia. 8. History of ETOH abuse. 9. Alcoholic hepatitis. 10.History of back pain/degenerative joint disease. 11.Anxiety, depression. RECOMMENDATIONS AND DISCUSSION: In this 46-year-old gentleman who presented with multiple complex medical issues , we will monitor the patient closely. Continue the current medications, management and symptomatic treatment. Repeat labs. Gastroenterology evaluation. N.p.o. diet for now. We will follow. DVT prophylaxis. Resume the home medications. Follow the patient closely and alcohol cessation has been recommended and smoke cessation also been recommended. The patient understands and agrees. Copy of dictation being forwarded to Dr. Jones who is the primary physician. MMODL / IJN: [id number] / SAMARA
[2017-05-23] MEDS: HYDROcodone/APAP 5-325MG 1 EACH TAB PO PRN ×4 (00:08→17:42)
[2017-05-23] MEDS: SODIUM CHLORIDE 0.9% 1,000 ML IV SCH ×3 (02:16→21:58)
[2017-05-23] MEDS: HYDROmorphone 1 MG/ML 1 ML SYRINGE IVP PRN ×4 (03:44→21:58)
[2017-05-23] MEDS: ONDANSETRON 4 MG/2 ML VIAL IVP PRN ×4 (03:45→21:58)
[2017-05-23] MEDS: NICOTINE 21MG/24HR PATCH TRANSDERM SCH (08:01)
[2017-05-23] MEDS: PANTOPRAZOLE 40 MG TABLET PO SCH ×2 (08:02→16:11)
[2017-05-23] MEDS: CHOLECALCIFEROL 1,000 UNIT TAB PO SCH (08:02)
[2017-05-23] MEDS: THIAMINE 100 MG TAB PO SCH ×2 (08:02→16:11)
[2017-05-23] MEDS: MULTIVITAMINS, THERA 1 EACH TAB PO SCH (08:02)
[2017-05-23] MEDS: HEPARIN SODIUM,PORCINE 5,000 UNIT/ML 1 ML VIAL SQ SCH ×2 (08:02→21:57)
[2017-05-23] MEDS: GABAPENTIN 300 MG CAP PO SCH ×3 (08:02→21:58)
[2017-05-23] MEDS: TAMSULOSIN 0.4 MG CAP.ER.24H PO SCH (08:02)
[2017-05-23] MEDS: FOLIC ACID 1 MG TAB PO SCH (08:02)
[2017-05-23 08:06] LABS: Basophils % (A) 0 %; Eosinophils # (A) 0.1 k/uL (0-0.7); Eosinophils % (A) 1 %; HCT 33.9 % (39.0-53.0); HGB 10.7 gm/dL (13.0-17.5); Lymphocytes # (A) 0.8 k/uL (1.0-4.8); Lymphocytes % (A) 8 %; MCH 32.1 pg (25.0-35.0); MCHC 31.5 g/dL (31.0-37.0); MCV 101.8 fL (80.0-100.0); Macrocytosis Slight; Mean Platelet Volume 6.8; Monocytes # (A) 0.5 k/uL (0-1.0); Monocytes % (A) 6 %; Neutrophils # (A) 7.9 k/uL (1.3-7.7); Neutrophils % (A) 85 %; Platelet Count 472 k/uL (150-450); RBC 3.33 m/uL (4.30-5.90); RDW 13.3 % (11.5-15.5); WBC 9.4 k/uL (3.8-10.6)
[2017-05-23] MEDS: IPRATROPIUM-ALBUTEROL 3 ML NEB INHALATION SCH ×4 (08:17→19:43)
[2017-05-23] MEDS: SYMBICORT 80-4.5 MCG INHALER INHALATION SCH ×2 (08:17→19:43)
[2017-05-23 08:24] LABS: ALT 31 U/L (21-72); AST 38 U/L (17-59); Albumin 2.6 g/dL (3.5-5.0); Alkaline Phosphatase 175 U/L (38-126); Amylase 131 U/L (30-110); Anion Gap 5 mmol/L; Blood Urea Nitrogen 8 mg/dL (9-20); Calcium 8.7 mg/dL (8.4-10.2); Carbon Dioxide 24 mmol/L (22-30); Chloride 105 mmol/L (98-107); Cholesterol 103 mg/dL (<200); Glucose 99 mg/dL (74-99); HDL Cholesterol 69 mg/dL (40-60); LDL Cholesterol,Calculated 23 mg/dL (0-99); Lipase 1220 U/L (23-300); Potassium 4.1 mmol/L (3.5-5.1); Sodium 134 mmol/L (137-145); Total Bilirubin 0.6 mg/dL (0.2-1.3); Total Protein 5.4 g/dL (6.3-8.2); Triglycerides 57 mg/dL (<150)
[2017-05-23] MEDS ORDERED: THIAMINE 100 MG TAB PO SCH (09:00)
[2017-05-23] MEDS: MEROPENEM 1 GM in SODIUM CHLORIDE 0.9% 100 ML IVPB SCH ×2 (12:40→20:36)
[2017-05-23] MEDS: traZODone HCL 50 MG TAB PO SCH (21:58)
[2017-05-23] MEDS: ATORVASTATIN 10 MG TAB PO SCH (21:58)
[2017-05-23] MEDS ORDERED: ACETAMINOPHEN TAB 325 MG TAB PO PRN (22:06)
[2017-05-24] MEDS: MEROPENEM 1 GM in SODIUM CHLORIDE 0.9% 100 ML IVPB SCH ×3 (03:27→20:10)
[2017-05-24] MEDS: HYDROmorphone 1 MG/ML 1 ML SYRINGE IVP PRN ×4 (03:33→20:59)
[2017-05-24] MEDS: ONDANSETRON 4 MG/2 ML VIAL IVP PRN ×4 (03:33→20:59)
[2017-05-24] MEDS: HYDROcodone/APAP 5-325MG 1 EACH TAB PO PRN ×4 (05:55→22:56)
[2017-05-24] MEDS: IPRATROPIUM-ALBUTEROL 3 ML NEB INHALATION SCH ×4 (08:21→20:09)
[2017-05-24] MEDS: SYMBICORT 80-4.5 MCG INHALER INHALATION SCH ×2 (08:21→20:09)
[2017-05-24 09:02] LABS: Basophils % (A) 0 %; Eosinophils # (A) 0.1 k/uL (0-0.7); Eosinophils % (A) 0 %; HCT 35.4 % (39.0-53.0); HGB 11.3 gm/dL (13.0-17.5); Lymphocytes # (A) 0.6 k/uL (1.0-4.8); Lymphocytes % (A) 5 %; MCH 32.1 pg (25.0-35.0); MCHC 31.9 g/dL (31.0-37.0); MCV 100.6 fL (80.0-100.0); Mean Platelet Volume 6.9; Monocytes # (A) 0.6 k/uL (0-1.0); Monocytes % (A) 5 %; Neutrophils % (A) 89 %; Platelet Count 442 k/uL (150-450); RBC 3.52 m/uL (4.30-5.90); RDW 13.3 % (11.5-15.5); WBC 12.3 k/uL (3.8-10.6)
[2017-05-24] MEDS: SODIUM CHLORIDE 0.9% 1,000 ML IV SCH ×2 (09:15→17:07)
[2017-05-24] MEDS: NICOTINE 21MG/24HR PATCH TRANSDERM SCH (09:15)
[2017-05-24] MEDS: PANTOPRAZOLE 40 MG TABLET PO SCH ×2 (09:15→17:07)
[2017-05-24] MEDS: HEPARIN SODIUM,PORCINE 5,000 UNIT/ML 1 ML VIAL SQ SCH ×2 (09:15→21:06)
[2017-05-24] MEDS: GABAPENTIN 300 MG CAP PO SCH ×3 (09:15→21:07)
[2017-05-24] MEDS: TAMSULOSIN 0.4 MG CAP.ER.24H PO SCH (09:16)
[2017-05-24 09:30] LABS: ALT 29 U/L (21-72); AST 15 U/L (17-59); Albumin 2.7 g/dL (3.5-5.0); Alkaline Phosphatase 171 U/L (38-126); Amylase 115 U/L (30-110); Anion Gap 5 mmol/L; Blood Urea Nitrogen 5 mg/dL (9-20); Carbon Dioxide 27 mmol/L (22-30); Chloride 101 mmol/L (98-107); Glucose 119 mg/dL (74-99); Lipase 1092 U/L (23-300); Potassium 4.7 mmol/L (3.5-5.1); Sodium 133 mmol/L (137-145); Total Bilirubin 0.4 mg/dL (0.2-1.3); Total Protein 5.5 g/dL (6.3-8.2)
--- NOTE | 2017-05-24 10:50 | P.PN ---
Subjective Progress Note Date: 05/23/17 Progress note being dictated for Dr. Barragan. Interval history: This a 40-year-old gentleman admitted with acute pancreatitis , history of EtOH abuse, and multiple other medical issues. GI consulted with recommendations pending. Maintained on IV fluid hydration, lipase, alk phos improving. Declined lunch and dinner tray. Receiving Dilaudid and [place] for pain. Abdominal pain improving. T-max 101.3. Denies chest pain, palpitations or increasing shortness of breath. Objective - Vital Signs Vital signs: Vital Signs Temp 99.3 F 05/24/17 07:00 Pulse 85 05/24/17 07:00 Resp 18 05/24/17 07:00 BP 134/89 05/24/17 07:00 Pulse Ox 99 05/24/17 07:00 Intake & Output 05/23/17 05/24/17 05/24/17 18:59 06:59 18:59 Intake Total 300 Balance 300 Intake: Oral 300 Other: Voiding Method Toilet # Voids 1 1 - Exam PHYSICAL EXAM: VITAL SIGNS: [Temperature 11.3 oral, pulse 96,, blood pressure 135/89, O2 sat 100% on room air] GENERAL: Sitting up in bed, no acute distress HEENT: Conjunctivae normal. eyes normal. Oral mucosa moist NECK: No JVD. No thyroid enlargement. No LNs CARDIOVASCULAR: S1, S2 muffled. No murmur RESPIRATION: Breath sounds diminished in the bases. No rhonchi or crackles. No bronchial breathing. ABDOMEN: Soft, mild diffuse tenderness . No guarding. no masses palpable.Bowel sounds heard. LEGS: No edema. no swelling PSYCHIATRY: Alert and oriented -3, mood and affect normal. NERVOUS SYSTEM: Cranial N 2-12 grossly normal. Moves all 4 limbs. Diffuse weakness No focal deficits. No sensory deficit. Skin: no ulcer no rash Joints: No active swelling. No inflammation. Lymphatic system. No LN neck axilla or groin. - Labs CBC & Chem 7: 05/24/17 08:39 05/24/17 08:39 Labs: Abnormal Lab Results - Last 24 Hours (Table) 05/24/17 05/24/17 Range/Units 08:39 08:39 WBC 12.3 H (3.8-10.6) k/uL RBC 3.52 L (4.30-5.90) m/uL Hgb 11.3 L (13.0-17.5) gm/dL Hct 35.4 L (39.0-53.0) % MCV 100.6 H (80.0-100.0) fL Neutrophils # 11.0 H (1.3-7.7) k/uL Lymphocytes # 0.6 L (1.0-4.8) k/uL Sodium 133 L (137-145) mmol/L BUN 5 L (9-20) mg/dL Creatinine 0.62 L (0.66-1.25) mg/dL Glucose 119 H (74-99) mg/dL AST 15 L (17-59) U/L Alkaline Phosphatase 171 H (38-126) U/L Total Protein 5.5 L (6.3-8.2) g/dL Albumin 2.7 L (3.5-5.0) g/dL Amylase 115 H (30-110) U/L Lipase 1092 H (23-300) U/L Microbiology - Last 24 Hours (Table) 05/22/17 20:20 Urine Culture - Preliminary Urine,Voided Group D Enterococcus 05/22/17 19:28 Blood Culture - Preliminary Blood No Growth after 24 hours Assessment and Plan Assessment: 1. Acute abdominal epigastric pain, possible acute Pancreatitis, improving 2. Recurrent relapsing chronic pancreatitis secondary to alcohol abuse 3. Leukocytosis 4. Anemia 5. Gastroesophageal reflux disease 6. Alcoholic hepatitis Plan: Continue on current medication regime ,monitoring and symptomatic treatment. Increase ambulation as tolerated. GI consult in place with recommendations pending. Maintained CIWA protocol, IV fluid hydration. Close monitoring of lipase and LFTs with repeat labs ordered for a.m. Further recommendations to follow. The impression and plan of care has been dictated as directed. : I performed a history and examination of this patient, discussed the same with the dictator. I agree with the dictator's note ,documented as a scribe. Any additional findings or plans will be noted.
[2017-05-24] MEDS: CHOLECALCIFEROL 1,000 UNIT TAB PO SCH (11:19)
[2017-05-24] MEDS: FOLIC ACID 1 MG TAB PO SCH (11:19)
[2017-05-24] MEDS: THIAMINE 100 MG TAB PO SCH ×2 (11:19→17:07)
[2017-05-24] MEDS: MULTIVITAMINS, THERA 1 EACH TAB PO SCH (11:19)
--- NOTE | 2017-05-24 11:39 | P.CONS ---
History of Present Illness - Reason for Consult Consult date: 05/24/17 Pancreatitis Requesting physician: Jamel Diallo - History of Present Illness 46-year-old male patient of Dr. Jones with a history of alcoholism and prior alcohol related pancreatitis episodes (April 2017 ) admitted with acute pancreatitis upper abdominal pain 3 days. Patient denies recent alcohol consumption. White count 14.4 presently 12.3. Hemoglobin 11.3. MCV 100.6 platelet 442. Lipase 2072 presently 1092. Amylase 173 presently 115. LFTs unremarkable. T-max 101.3. Urine culture group D enterococcus. Preliminary blood cultures no growth. Review of Systems Constitutional: Denies fever, chills, sweats, weight gain, or loss. HEENT: Negative for migraines, blurred vision or loss, earaches, drainage, tinnitus, oral mucosal lesions, dysphagia, or odynophagia. Cardiac: Hypertension. Hyperlipidemia. CHF. Negative for chest pain, arrhythmias, or palpitation. Respiratory: Negative for shortness of breath, hemoptysis, cough, or sputum production. Gastrointestinal: See HPI for pertinent findings. Genitourinary: Negative for hematuria, urgency, frequency, polyuria, dysuria, or penile discharge. Musculoskeletal: Negative for muscle aches, swelling, arthritis, and arthralgias. Neurologic: Negative for stroke or TIA. Endocrine: Negative for thyroid problems. Skin: Negative for rash or itching. Psychiatric: Negative history for depression and anxiety Past Medical History Past Medical History: GERD/Reflux, Hyperlipidemia, Pneumonia, Prostate Disorder Additional Past Medical History / Comment(s): ETOH ABUSE, CHRONIC PANCREATITIS, ALCOHOLIC HEPATITIS, NEPHROLITHIASIS, hx ofCHRONIC URINARY RETENTION DUE TO BACK PROBLEMS-SELF CATHS, LUNG ISSUES-TO BE WORKDED UP BY DR. PARMINDER CONNER. History of Any Multi-Drug Resistant Organisms: None Reported Past Surgical History: Back Surgery, Cholecystectomy, Orthopedic Surgery Additional Past Surgical History / Comment(s): Bronchoscopy, BACK surgery with TITANIUM PLATES MILTON and CAGES, KIDNEY STONES removed per pt, SPINAL CORD STIMULATOR, ISMAEL KNEE ARTHROSCOPIES, PINKY FINGER RT HAND REATTATCHED Past Anesthesia/Blood Transfusion Reactions: No Reported Reaction Smoking Status: Current every day smoker - Past Family History Father Family Medical History: Diabetes Mellitus Additional Family Medical History / Comment(s): Mother Family Medical History: Dementia, Hyperlipidemia, Hypertension Additional Family Medical History / Comment(s): Mother is living. Medications and Allergies Home Medications Medication Instructions Recorded Confirmed Type Folic Acid 1 mg PO DAILY #30 tablet 07/15/15 05/22/17 Rx Atorvastatin [Lipitor] 10 mg PO HS 09/27/15 05/22/17 History Gabapentin [Neurontin] 300 mg PO TID 12/18/16 05/22/17 History Tamsulosin HCl [Flomax] 0.4 mg PO DAILY 12/18/16 05/22/17 History LORazepam [Ativan] 0.5 mg PO TID PRN #30 tab 12/22/16 05/22/17 Rx traMADol HCL [Ultram] 50 mg PO Q6H PRN 02/22/17 05/22/17 History Albuterol Inhaler [Ventolin Hfa 2 puff INHALATION RT-Q4H PRN 03/01/17 05/22/17 History Inhaler] Multivitamins, Thera [Multivitamin 1 tab PO DAILY 03/01/17 05/22/17 History (formulary)] Budesonide/Formoterol Fumarate 1 puff INHALATION RT-BID 04/04/17 05/22/17 History [Symbicort 80-4.5 Mcg Inhaler] Cholecalciferol (Vitamin D3) 2,000 unit PO DAILY 04/04/17 05/22/17 History [Vitamin D3] Ondansetron Odt [Zofran Odt] 4 mg PO Q8HR PRN 04/04/17 05/22/17 History traZODone HCL 50 mg PO HS 04/04/17 05/22/17 History Omeprazole [PriLOSEC] 40 mg PO BID #60 capsule. 05/16/17 05/22/17 Rx Thiamine [Vitamin B-1] 100 mg PO DAILY #30 tablet 05/16/17 05/22/17 Rx Allergies Allergy/AdvReac Type Severity Reaction Status Date / Time No Known Allergies Allergy Verified 05/22/17 12:50 Physical Exam Vitals: Vital Signs Temp Pulse Pulse Resp BP Pulse Ox 05/24/17 07:00 99.3 F 85 18 134/89 99 05/23/17 23:00 100.8 F H 102 H 20 122/80 98 05/23/17 17:45 101.0 F H 05/23/17 16:18 101.3 F H 05/23/17 15:57 100 05/23/17 15:48 104 H 05/23/17 15:00 100.2 F H 103 H 18 135/89 100 05/23/17 12:23 96 05/23/17 12:14 92 Intake and Output 05/23/17 05/24/17 05/24/17 22:59 06:59 14:59 Intake Total 200 100 Balance 200 100 Intake: Oral 200 100 Other: Voiding Method Toilet # Voids 1 1 General appearance: The patient is alert, oriented, in no acute distress. Multiple tattoos on all extremities HET: Head is normocephalic and atraumatic. Pupils are equal and reactive. Oropharynx is clear without lesions. Neck: Supple without lymphadenopathy. Trachea midline. Heart: S1 S2. Regular rate and rhythm. Lungs: No crackles or wheezes are heard. Abdomen: Soft, tenderness midepigastrium left upper quadrant, nondistended with bowel sounds. No peritoneal signs. No palpable organomegaly or masses. Extremities: Normal skin color and turgor. No cyanosis, rash, ulceration, clubbing, or edema. Radial and pedal pulses are 2/4 bilaterally. Neurological: No focal deficits. Strength and sensation are grossly intact. Results CBC & Chem 7: 05/24/17 08:39 05/24/17 08:39 Labs: Abnormal Lab Results - Last 24 Hours (Table) 05/24/17 05/24/17 Range/Units 08:39 08:39 WBC 12.3 H (3.8-10.6) k/uL RBC 3.52 L (4.30-5.90) m/uL Hgb 11.3 L (13.0-17.5) gm/dL Hct 35.4 L (39.0-53.0) % MCV 100.6 H (80.0-100.0) fL Neutrophils # 11.0 H (1.3-7.7) k/uL Lymphocytes # 0.6 L (1.0-4.8) k/uL Sodium 133 L (137-145) mmol/L BUN 5 L (9-20) mg/dL Creatinine 0.62 L (0.66-1.25) mg/dL Glucose 119 H (74-99) mg/dL AST 15 L (17-59) U/L Alkaline Phosphatase 171 H (38-126) U/L Total Protein 5.5 L (6.3-8.2) g/dL Albumin 2.7 L (3.5-5.0) g/dL Amylase 115 H (30-110) U/L Lipase 1092 H (23-300) U/L Microbiology - Last 24 Hours (Table) 05/22/17 20:20 Urine Culture - Preliminary Urine,Voided Group D Enterococcus 05/22/17 19:28 Blood Culture - Preliminary Blood No Growth after 24 hours Assessment and Plan (1) Acute pancreatitis Narrative/Plan: Chronic relapsing alcohol pancreatitis with fever Current Visit: Yes Status: Acute Code(s): K85.90 - ACUTE PANCREATITIS WITHOUT NECROSIS OR INFECTION, UNSP SNOMED Code(s): 403506691 (2) UTI (urinary tract infection) due to Enterococcus Current Visit: Yes Status: Acute Code(s): N39.0 - URINARY TRACT INFECTION, SITE NOT SPECIFIED; B95.2 - ENTEROCOCCUS THE CAUSE OF DISEASES CLASSIFIED ELSEWHERE SNOMED Code(s): 953033042582604 Plan: 1. Liquid diet. IV hydration. Daily monitoring of pancreatic enzymes. GI prophylaxis Protonix 40 mg twice daily. Continue with IV Merrem. If patient's fevers do not subside or clinical condition worsens recommend CT of the abdomen and pelvis with IV contrast. 2. Alcohol abstinence advised. Thank you for this kind referral and the opportunity to participate in the care of your patient. This consultation was discussed with Dr. Martinez. The impression and plan of care have been directed as dictated.
--- NOTE | 2017-05-24 15:57 | XR ---
EXAMINATION TYPE: XR chest 2V DATE OF EXAM: 05/24/2017 COMPARISON: 06-07 TECHNIQUE: PA and lateral views submitted. HISTORY: Chest pain FINDINGS: The lungs are clear and there is no pneumothorax, pleural effusion, or focal pneumonia. Stimulator device overlying the spinal canal. Degenerative change of the spine. No overt failure. Atheroscleroti c change of the aorta. There is slight interstitial perihilar changes. IMPRESSION: 1. Relative to the previous exam there is slight perihilar interstitial prominence which may be relat ed to reduced inspiration although bronchitis or early interstitial pneumonitis in the differential d iagnosis. Correlate clinically. No pleural effusion or focal pneumonia..
[2017-05-24] MEDS: ATORVASTATIN 10 MG TAB PO SCH (21:06)
[2017-05-24] MEDS: traZODone HCL 50 MG TAB PO SCH (21:06)
[2017-05-25] MEDS: HYDROmorphone 1 MG/ML 1 ML SYRINGE IVP PRN (04:16)
[2017-05-25] MEDS: MEROPENEM 1 GM in SODIUM CHLORIDE 0.9% 100 ML IVPB SCH ×2 (04:16→11:14)
[2017-05-25] MEDS: ONDANSETRON 4 MG/2 ML VIAL IVP PRN (04:16)
[2017-05-25] MEDS: SODIUM CHLORIDE 0.9% 1,000 ML IV SCH ×2 (04:17→11:12)
[2017-05-25] MEDS: HYDROcodone/APAP 5-325MG 1 EACH TAB PO PRN ×2 (06:06→11:54)
[2017-05-25] MEDS: IPRATROPIUM-ALBUTEROL 3 ML NEB INHALATION SCH ×2 (07:04→11:10)
[2017-05-25] MEDS: SYMBICORT 80-4.5 MCG INHALER INHALATION SCH (07:04)
[2017-05-25 08:16] LABS: ALT 29 U/L (21-72); AST 11 U/L (17-59); Albumin 2.4 g/dL (3.5-5.0); Alkaline Phosphatase 145 U/L (38-126); Amylase 35 U/L (30-110); Anion Gap 5 mmol/L; Basophils % (A) 0 %; Blood Urea Nitrogen 3 mg/dL (9-20); Calcium 8.8 mg/dL (8.4-10.2); Carbon Dioxide 26 mmol/L (22-30); Chloride 103 mmol/L (98-107); Eosinophils % (A) 1 %; Glucose 98 mg/dL (74-99); HCT 33.3 % (39.0-53.0); HGB 10.5 gm/dL (13.0-17.5); Lipase 135 U/L (23-300); Lymphocytes # (A) 1.4 k/uL (1.0-4.8); Lymphocytes % (A) 17 %; MCH 32.3 pg (25.0-35.0); MCHC 31.5 g/dL (31.0-37.0); MCV 102.7 fL (80.0-100.0); Macrocytosis Slight; Mean Platelet Volume 7.9; Monocytes # (A) 0.4 k/uL (0-1.0); Monocytes % (A) 6 %; Neutrophils # (A) 5.9 k/uL (1.3-7.7); Neutrophils % (A) 75 %; Platelet Count 393 k/uL (150-450); Potassium 3.7 mmol/L (3.5-5.1); RBC 3.24 m/uL (4.30-5.90); RDW 14.3 % (11.5-15.5); Sodium 134 mmol/L (137-145); Total Bilirubin 0.3 mg/dL (0.2-1.3); Total Protein 5.1 g/dL (6.3-8.2); WBC 7.8 k/uL (3.8-10.6)
[2017-05-25] MEDS: PANTOPRAZOLE 40 MG TABLET PO SCH (08:22)
[2017-05-25] MEDS: GABAPENTIN 300 MG CAP PO SCH (08:22)
[2017-05-25] MEDS: NICOTINE 21MG/24HR PATCH TRANSDERM SCH (08:22)
[2017-05-25] MEDS: HEPARIN SODIUM,PORCINE 5,000 UNIT/ML 1 ML VIAL SQ SCH (08:22)
[2017-05-25] MEDS: TAMSULOSIN 0.4 MG CAP.ER.24H PO SCH (08:23)
[2017-05-25] MEDS ORDERED: HYDROmorphone 2 MG/ML 1 ML SYRINGE IVP PRN (08:50)
[2017-05-25 09:31] VITALS: BP 107/67; RESP 16; TEMP 98.1
[2017-05-25 11:13] VITALS: PULSE 90
[2017-05-25] MEDS: CHOLECALCIFEROL 1,000 UNIT TAB PO SCH (11:14)
[2017-05-25] MEDS: THIAMINE 100 MG TAB PO SCH (11:14)
[2017-05-25] MEDS: FOLIC ACID 1 MG TAB PO SCH (11:14)
[2017-05-25] MEDS: MULTIVITAMINS, THERA 1 EACH TAB PO SCH (11:14)
--- NOTE | 2017-05-25 19:38 | P.PN ---
Subjective Progress Note Date: 05/24/17 Progress note being dictated for Dr. Barragan. Interval history: This a 40-year-old gentleman admitted with acute pancreatitis , history of EtOH abuse, and multiple other medical issues. GI consulted with recommendations pending. Maintained on IV fluid hydration, lipase, alk phos improving. Declined lunch and dinner tray. Receiving Dilaudid and [place] for pain. Abdominal pain improving. T-max 101.3. Denies chest pain, palpitations or increasing shortness of breath. 05/24/17 no overnight events. Maintained on IV fluid hydration, PPI LFT's and lipase continue to improve. Currently afebrile, T-max 101.3, urine culture reporting group D enterococcus, preliminary bloodcultures pending. Tolerating liquid diet with no nausea or vomiting. Objective - Vital Signs Vital signs: Vital Signs Temp 98.9 F 05/24/17 15:00 Pulse 100 05/24/17 16:07 Resp 16 05/24/17 15:00 BP 142/85 05/24/17 15:00 Pulse Ox 99 05/24/17 15:00 Intake & Output 05/23/17 05/24/17 05/24/17 18:59 06:59 18:59 Intake Total 300 120 Balance 300 120 Intake: Oral 300 120 Other: Voiding Method Toilet # Voids 1 1 1 # Emeses 3 - Exam PHYSICAL EXAM: VITAL SIGNS: as above GENERAL: Sitting up in bed, no acute distress HEENT: Conjunctivae normal. eyes normal. Oral mucosa moist NECK: No JVD. No thyroid enlargement. No LNs CARDIOVASCULAR: S1, S2 muffled. No murmur RESPIRATION: Breath sounds diminished in the bases. No rhonchi or crackles. No bronchial breathing. ABDOMEN: Soft, mild diffuse tenderness . No guarding. no masses palpable.Bowel sounds heard. LEGS: No edema. no swelling PSYCHIATRY: Alert and oriented -3, mood and affect normal. NERVOUS SYSTEM: Cranial N 2-12 grossly normal. Moves all 4 limbs. Diffuse weakness No focal deficits. No sensory deficit. Skin: no ulcer no rash Joints: No active swelling. No inflammation. Lymphatic system. No LN neck axilla or groin. - Labs CBC & Chem 7: 05/25/17 07:36 05/25/17 07:36 Labs: Abnormal Lab Results - Last 24 Hours (Table) 05/24/17 05/24/17 Range/Units 08:39 08:39 WBC 12.3 H (3.8-10.6) k/uL RBC 3.52 L (4.30-5.90) m/uL Hgb 11.3 L (13.0-17.5) gm/dL Hct 35.4 L (39.0-53.0) % MCV 100.6 H (80.0-100.0) fL Neutrophils # 11.0 H (1.3-7.7) k/uL Lymphocytes # 0.6 L (1.0-4.8) k/uL Sodium 133 L (137-145) mmol/L BUN 5 L (9-20) mg/dL Creatinine 0.62 L (0.66-1.25) mg/dL Glucose 119 H (74-99) mg/dL AST 15 L (17-59) U/L Alkaline Phosphatase 171 H (38-126) U/L Total Protein 5.5 L (6.3-8.2) g/dL Albumin 2.7 L (3.5-5.0) g/dL Amylase 115 H (30-110) U/L Lipase 1092 H (23-300) U/L Microbiology - Last 24 Hours (Table) 05/22/17 20:20 Urine Culture - Preliminary Urine,Voided Group D Enterococcus 05/22/17 19:28 Blood Culture - Preliminary Blood No Growth after 24 hours Assessment and Plan Assessment: 1. Acute abdominal epigastric pain, possible acute Pancreatitis, improving 2. Recurrent relapsing chronic pancreatitis secondary to alcohol abuse 3. Leukocytosis 4. Anemia 5. Gastroesophageal reflux disease 6. Alcoholic hepatitis 7.Acute UTI with Enteroccus Plan: Continue on current medication regime ,monitoring and symptomatic treatment. Maintain IV fluid hydration, antibiotics,CIWA protocol. Increase ambulation as tolerated. Close monitoring of cultures. Close monitoring of lipase and LFTs with repeat labs ordered for a.m. discharge planning in progress for tomorrow. The impression and plan of care has been dictated as directed. : I performed a history and examination of this patient, discussed the same with the dictator. I agree with the dictator's note ,documented as a scribe. Any additional findings or plans will be noted.
--- NOTE | 2017-05-28 09:04 | DS ---
DISCHARGE SUMMARY DATE OF SERVICE: 05/25/2017 FINAL DIAGNOSES: 1. Acute abdominal and epigastric pain possible acute pancreatitis, improved. 2. History of recurrent pancreatitis secondary to alcohol abuse. 4. Anemia. 5. Gastroesophageal reflux disease. 6. Alcoholic hepatitis. 7. Acute urinary tract infection with Enterococcus. DISCHARGE DISPOSITION: The patient is being discharged in stable condition with guarded prognosis. HISTORY OF PRESENT ILLNESS: This 46-year-old gentleman with a past medical history of multiple medical problems admitted with features of pancreatitis as well as UTI. Patient treated with antibiotics and symptomatic treatment and alcohol cessation advised. Patient improved significantly. On exam, vitals are stable. Cardiovascular systems: S1, S2 muffled. No S3, no S4. Respiratory: Breath sounds diminished in the bases. Abdomen soft and nontender. Central nervous system: No focal deficits. DISCHARGE ADVICE AND MEDICATIONS: 1. Diet is cardiac. 2. Activity limited until followup. 3. No alcohol. 4. Follow up with Dr. Jones in 2-3 days. MEDICATIONS ARE: 1. Ventolin HFA p.r.n. 2. Augmentin 875 mg 1 p.o. b.i.d. for 5 days. 3. Lipitor 10 mg q.h.s. 4. Symbicort 1 puff b.i.d. 5. Vitamin D3 2000 daily. 6. Folic acid 1 mg daily. 7. Neurontin 300 mg t.i.d. 8. Ativan 0.5 mg t.i.d. p.r.n. 9. Multivitamins one p.o. daily. 10.Habitrol 21 daily. 11.Prilosec 40 mg p.o. b.i.d. 12.Zofran 4 mg p.o. q8h p.r.n. 13.Flomax 0.4 daily. 14.Thiamine 100 mg p.o. daily. 15.Ultram 50 mg q.6h p.r.n. 16.Trazodone 50 mg q.h.s. Once again, the patient is being discharged in stable condition with guarded prognosis. I would also recommend the patient attend AA meetings also. MMODL / IJN: [id number] / MTDD
== END 2017-05-25 14:00 | disposition home or self-care (01) | DRG 439 ==
LOC: EC 12:37 → 4MS4W 15:21
PROVIDERS: ADMIT Internal Medicine; ATTEND Internal Medicine
DX: K85.90 Acute pancreatitis without necrosis or infection, unspecified (principal); N39.0 Urinary tract infection, site not specified; I11.0 Hypertensive heart disease with heart failure; K70.10 Alcoholic hepatitis without ascites; I50.9 Heart failure, unspecified; D64.9 Anemia, unspecified; K86.0 Alcohol-induced chronic pancreatitis; K21.9 Gastro-esophageal reflux disease without esophagitis; K42.9 Umbilical hernia without obstruction or gangrene; F10.10 Alcohol abuse, uncomplicated; E78.5 Hyperlipidemia, unspecified; F32.9 Major depressive disorder, single episode, unspecified; B95.2 Enterococcus as the cause of diseases classified elsewhere; F17.200 Nicotine dependence, unspecified, uncomplicated; R00.0 Tachycardia, unspecified; F41.9 Anxiety disorder, unspecified; Z71.6 Tobacco abuse counseling; Z71.41 Alcohol abuse counseling and surveillance of alcoholic; Z83.3 Family history of diabetes mellitus; Z87.01 Personal history of pneumonia (recurrent); Z79.899 Other long term (current) drug therapy; Z79.51 Long term (current) use of inhaled steroids; Z90.49 Acquired absence of other specified parts of digestive tract; Z82.49 Family history of ischemic heart disease and other diseases of the circulatory system; Z81.8 Family history of other mental and behavioral disorders
CPT/HCPCS: 36415; 71046; 80053; 80061; 80306; 81001; 82150; 82550; 82553; 83690; 83735; 84484; 85025; 85610; 85730; 87040; 87077; 87086; 87186; 93005; 94640; 96374; 96375; 96376; 99285

== ENCOUNTER 2017-05-28 16:40 | Inpatient (IN) | payer MEDICARE, OTHER ==
[2017-05-28] MEDS ORDERED: SODIUM CHLORIDE 0.9% 500 ML IV STA (17:59)
[2017-05-28] MEDS ORDERED: ONDANSETRON 4 MG/2 ML VIAL IVP STA (17:59)
[2017-05-28] MEDS ORDERED: HYDROmorphone 1 MG/ML 1 ML SYRINGE IVP STA ×2 (17:59→19:50)
[2017-05-28] MEDS ORDERED: SODIUM CHLORIDE 0.9% 1,000 ML IV STA (17:59)
[2017-05-28 18:09] LABS: Basophils # (A) 0.1 k/uL (0-0.2); Basophils % (A) 0 %; Eosinophils # (A) 0.1 k/uL (0-0.7); Eosinophils % (A) 0 %; HCT 40.9 % (39.0-53.0); Lymphocytes # (A) 1.4 k/uL (1.0-4.8); Lymphocytes % (A) 9 %; MCH 32.5 pg (25.0-35.0); MCHC 33.1 g/dL (31.0-37.0); Mean Platelet Volume 6.5; Monocytes # (A) 0.7 k/uL (0-1.0); Monocytes % (A) 4 %; Neutrophils # (A) 14.5 k/uL (1.3-7.7); Neutrophils % (A) 86 %; Platelet Count 661 k/uL (150-450); RBC 4.18 m/uL (4.30-5.90); RDW 13.2 % (11.5-15.5); WBC 16.9 k/uL (3.8-10.6)
[2017-05-28 18:11] LABS: HGB 13.6 gm/dL (13.0-17.5)
[2017-05-28 18:18] LABS: ALT 27 U/L (21-72); AST 15 U/L (17-59); Albumin 3.6 g/dL (3.5-5.0); Alkaline Phosphatase 172 U/L (38-126); Amylase 195 U/L (30-110); Anion Gap 10 mmol/L; Blood Urea Nitrogen 3 mg/dL (9-20); Carbon Dioxide 28 mmol/L (22-30); Chloride 101 mmol/L (98-107); Glucose 120 mg/dL (74-99); Potassium 4.1 mmol/L (3.5-5.1); Sodium 139 mmol/L (137-145); Total Bilirubin 0.4 mg/dL (0.2-1.3); Total Protein 6.9 g/dL (6.3-8.2)
[2017-05-28 18:28] LABS: Lipase 2050 U/L (23-300)
--- NOTE | 2017-05-28 18:33 | ED ---
Abdominal Pain HPI - General Chief Complaint: Abdominal Pain Stated Complaint: Abd Pain/Vomiting Time Seen by Provider: 05/28/17 17:48 Source: patient Mode of arrival: ambulatory Limitations: no limitations - History of Present Illness Initial Comments: 46-year-old male patient with a past medical history significant for alcoholic pancreatitis presents to the emergency department today for complaints of upper abdominal pain and vomiting. Patient states that he has been admitted several times over the past month and a half for pancreatitis. States his last discharge was 05/25/2017. States that his pain has never resolved since his discharge. He states that the pain in his abdomen is severe and radiates into his back. States that he started vomiting around 0400 this morning. He states he has been unable to keep anything down including his medications. He denies any hematemesis. Denies any diarrhea. States his bowel movements have been normal. Patient denies any recent rash, fever, chills, shortness breath, chest pain, back pain, numbness, tingling, dizziness, weakness, hematuria, dysuria, urinary urgency, urinary frequency, headache, visual changes, or any other complaints. - Related Data Home Medications Medication Instructions Recorded Confirmed Atorvastatin [Lipitor] 10 mg PO HS 09/27/15 05/28/17 Gabapentin [Neurontin] 300 mg PO TID 12/18/16 05/28/17 Tamsulosin HCl [Flomax] 0.4 mg PO DAILY 12/18/16 05/28/17 traMADol HCL [Ultram] 50 mg PO Q6H PRN 02/22/17 05/28/17 Albuterol Inhaler [Ventolin Hfa 2 puff INHALATION RT-Q4H PRN 03/01/17 05/28/17 Inhaler] Multivitamins, Thera [Multivitamin 1 tab PO DAILY 03/01/17 05/28/17 (formulary)] Budesonide/Formoterol Fumarate 1 puff INHALATION RT-BID 04/04/17 05/28/17 [Symbicort 80-4.5 Mcg Inhaler] Cholecalciferol (Vitamin D3) 2,000 unit PO DAILY 04/04/17 05/28/17 [Vitamin D3] Ondansetron Odt [Zofran ODT] 4 mg PO Q8HR PRN 04/04/17 05/28/17 traZODone HCL 50 mg PO HS 04/04/17 05/28/17 Previous Rx's Medication Instructions Recorded Folic Acid 1 mg PO DAILY #30 tablet 07/15/15 LORazepam [Ativan] 0.5 mg PO TID PRN #30 tab 12/22/16 Omeprazole [PriLOSEC] 40 mg PO BID #60 capsule. 05/16/17 Thiamine [Vitamin B-1] 100 mg PO DAILY #30 tablet 05/16/17 Amoxic-Pot Clav 875-125Mg 1 tab PO Q12HR #10 tablet 05/25/17 [Augmentin 875-125] Nicotine 21Mg/24Hr Patch [Habitrol] 1 patch TRANSDERM DAILY #30 patch 05/25/17 Allergies Allergy/AdvReac Type Severity Reaction Status Date / Time No Known Allergies Allergy Verified 05/28/17 18:49 Review of Systems ROS Statement: Those systems with pertinent positive or pertinent negative responses have been documented in the HPI. ROS Other: All systems not noted in ROS Statement are negative. Past Medical History Past Medical History: GERD/Reflux, Hyperlipidemia, Pneumonia, Prostate Disorder Additional Past Medical History / Comment(s): ETOH ABUSE, CHRONIC PANCREATITIS, ALCOHOLIC HEPATITIS, NEPHROLITHIASIS, hx ofCHRONIC URINARY RETENTION DUE TO BACK PROBLEMS-SELF CATHS, LUNG ISSUES-TO BE WORKDED UP BY DR. PARMINDER CONNER. History of Any Multi-Drug Resistant Organisms: None Reported Past Surgical History: Back Surgery, Cholecystectomy, Orthopedic Surgery Additional Past Surgical History / Comment(s): Bronchoscopy, BACK surgery with TITANIUM PLATES MILTON and CAGES, KIDNEY STONES removed per pt, SPINAL CORD STIMULATOR, ISMAEL KNEE ARTHROSCOPIES, PINKY FINGER RT HAND REATTATCHED Past Anesthesia/Blood Transfusion Reactions: No Reported Reaction Past Psychological History: Anxiety, Depression Smoking Status: Current every day smoker Past Alcohol Use History: None Reported Past Drug Use History: None Reported - Past Family History Father Family Medical History: Diabetes Mellitus Additional Family Medical History / Comment(s): Mother Family Medical History: Dementia, Hyperlipidemia, Hypertension Additional Family Medical History / Comment(s): Mother is living. General Exam Limitations: no limitations General appearance: alert, in no apparent distress, other (Social well-developed , well-nourished adult male patient in no acute distress. Vital signs upon presentation are temperature 98.7F, pulse 102, respirations 20, blood pressure 133/82, pulse ox 100% on room air.) Eye exam: Present: normal appearance, PERRL, EOMI. Absent: scleral icterus, conjunctival injection, periorbital swelling ENT exam: Present: normal exam, normal oropharynx, mucous membranes moist Neck exam: Present: normal inspection. Absent: tenderness, meningismus, lymphadenopathy Respiratory exam: Present: normal lung sounds bilaterally. Absent: respiratory distress, wheezes, rales, rhonchi, stridor Cardiovascular Exam: Present: regular rate, normal rhythm, normal heart sounds. Absent: systolic murmur, diastolic murmur, rubs, gallop, clicks GI/Abdominal exam: Present: soft, tenderness (Midepigastric tenderness), normal bowel sounds. Absent: distended, guarding, rebound, rigid Neurological exam: Present: alert, oriented X3, CN II-XII intact Psychiatric exam: Present: normal affect, normal mood Skin exam: Present: warm, dry, intact, normal color. Absent: rash Course Vital Signs 05/28/17 05/28/17 05/28/17 16:58 18:01 19:19 Temperature 98.7 F 99.5 F Pulse Rate 102 H 104 H 97 Respiratory 20 18 18 Rate Blood Pressure 133/82 136/86 140/86 O2 Sat by Pulse 100 98 100 Oximetry Medical Decision Making - Medical Decision Making 46-year-old male patient presented to the emergency department today with complaints of upper abdominal pain and vomiting since 0. Physical examination did reveal some midepigastric tenderness. Labs reviewed and did reveal an elevated white blood cell count at 16.9, platelet count of 661, BUN of 3, creatinine of 0.59. Alk phos of 172, amylase 195, lipase 2050. Patient will be admitted to Dr. Diallo for acute pancreatitis. Pain management and IV rehydration have been provided. - Lab Data Result diagrams: 05/28/17 17:55 05/28/17 17:55 Lab Results 05/28/17 05/28/17 Range/Units 17:55 17:55 WBC 16.9 H (3.8-10.6) k/uL RBC 4.18 L (4.30-5.90) m/uL Hgb 13.6 D (13.0-17.5) gm/dL Hct 40.9 (39.0-53.0) % MCV 98.0 (80.0-100.0) fL MCH 32.5 (25.0-35.0) pg MCHC 33.1 (31.0-37.0) g/dL RDW 13.2 (11.5-15.5) % Plt Count 661 H (150-450) k/uL Neutrophils % 86 % Lymphocytes % 9 % Monocytes % 4 % Eosinophils % 0 % Basophils % 0 % Neutrophils # 14.5 H (1.3-7.7) k/uL Lymphocytes # 1.4 (1.0-4.8) k/uL Monocytes # 0.7 (0-1.0) k/uL Eosinophils # 0.1 (0-0.7) k/uL Basophils # 0.1 (0-0.2) k/uL Sodium 139 (137-145) mmol/L Potassium 4.1 (3.5-5.1) mmol/L Chloride 101 (98-107) mmol/L Carbon Dioxide 28 (22-30) mmol/L Anion Gap 10 mmol/L BUN 3 L (9-20) mg/dL Creatinine 0.59 L (0.66-1.25) mg/dL Est GFR (MDRD) Af Amer >60 (>60 ml/min/1.73 sqM) Est GFR (MDRD) Non-Af >60 (>60 ml/min/1.73 sqM) Glucose 120 H (74-99) mg/dL Calcium 10.0 (8.4-10.2) mg/dL Total Bilirubin 0.4 (0.2-1.3) mg/dL AST 15 L (17-59) U/L ALT 27 (21-72) U/L Alkaline Phosphatase 172 H (38-126) U/L Total Protein 6.9 (6.3-8.2) g/dL Albumin 3.6 (3.5-5.0) g/dL Amylase 195 H (30-110) U/L Lipase 2050 H (23-300) U/L - Radiology Data Radiology results: report reviewed, image reviewed KUB x-ray of the abdomen shows scattered gas in nondistended small bowel loops. Gas and fecal material seen in nondistended colon. There is no visceromegaly or abnormal calcification appreciated. Lung bases are clear. Osseous structures are intact. Postsurgical changes of the lumbar spine and Ostermann later as well as cholecystectomy clips are noted. Impression by Dr. Lewis shows nonobstructive bowel gas pattern. Disposition Clinical Impression: Acute pancreatitis Disposition: ADMITTED IP TO THIS [facility] Condition: Serious Decision to Admit Reason: Admit from EC Decision Date: 05/28/17 Decision Time: 19:49
--- NOTE | 2017-05-28 18:46 | XR ---
EXAMINATION TYPE: XR KUB DATE OF EXAM: 05/28/2017 6:37 PM CLINICAL HISTORY: Pancreatitis TECHNIQUE: Single supine KUB image of the abdomen is obtained. COMPARISON: 02/22/2017. FINDINGS: Scattered gas is seen in non-distended small bowel loops. Gas and fecal material is seen in non-distended colon. There is no visceromegaly or abnormal calcification appreciated. The lung bases are clear and the osseous structures are intact. Postsurgical changes of the lumbar spine and nerve stimulator as well as cholecystectomy clips are noted. IMPRESSION: Nonobstructive bowel gas pattern.
[2017-05-28] MEDS ORDERED: NALOXONE 0.4 MG/ML 1 ML VIAL IV PRN (19:46)
[2017-05-28] MEDS ORDERED: diphenhydrAMINE 50 MG/ML 1 ML VIAL IVP STA (19:51)
[2017-05-28] MEDS ORDERED: METOCLOPRAMIDE 5 MG/ML 2 ML VIAL IVP STA (19:51)
[2017-05-28] MEDS: SODIUM CHLORIDE 0.9% 1,000 ML IV SCH (20:43)
[2017-05-29] MEDS: HYDROmorphone 2 MG/ML 1 ML SYRINGE IVP PRN ×7 (00:07→20:54)
[2017-05-29] MEDS: ONDANSETRON 4 MG/2 ML VIAL IVP PRN ×4 (00:40→20:54)
[2017-05-29] MEDS ORDERED: LORazepam 0.5 MG TAB PO PRN (00:52)
[2017-05-29] MEDS: SODIUM CHLORIDE 0.9% 1,000 ML IV SCH ×4 (06:14→20:58)
[2017-05-29 07:08] LABS: Appearance,Urine Clear (Clear); Bilirubin,Urine Negative (Negative); Blood,Urine Negative (Negative); Budding Yeast,Urine Few /hpf; Color,Urine Yellow; Glucose,Urine (UA) Negative (Negative); Hyphae Yeast, Urine Rare /hpf; Ketones,Urine Negative (Negative); Leukocyte Esterase,Urine Small (Negative); Mucus,Urine Few /hpf; Nitrite,Urine Negative (Negative); PH, Urine 6.5 (5.0-8.0); Protein,Urine Trace (Negative); RBC,Urine 9 /hpf (0-5); Urobilinogen,Urine <2.0 mg/dL (<2.0); WBC,Urine 31 /hpf (0-5)
[2017-05-29 07:14] LABS: Amphetamine Screen,Urine Not Detected (NotDetected); Barbiturate Screen,Urine Not Detected (NotDetected); Benzodiazepines Screen,Urine Detected (NotDetected); Cocaine Screen,Urine Not Detected (NotDetected); Methadone Screen, Urine Not Detected (NotDetected); Opiate Screen,Urine Detected (NotDetected); Oxycodone Screen, Urine Not Detected (NotDetected); Phencyclidine Screen,Urine Not Detected (NotDetected); Tricyclic Antidepressant,Urine Not Detected (NotDetected); Urn Cannabinoid Scrn Not Detected (NotDetected)
[2017-05-29] MEDS: ALBUTEROL NEBULIZED 2.5 MG/3 ML INHALATION SCH ×4 (07:43→18:56)
[2017-05-29] MEDS: SYMBICORT 80-4.5 MCG INHALER INHALATION SCH ×2 (07:43→18:56)
[2017-05-29] MEDS: GABAPENTIN 300 MG CAP PO SCH ×3 (08:18→20:55)
[2017-05-29] MEDS: AMOXIC-POT CLAV 875-125MG 1 EACH TAB PO SCH ×2 (08:18→20:54)
[2017-05-29] MEDS: MULTIVITAMINS, THERA 1 EACH TAB PO SCH (08:19)
[2017-05-29] MEDS: TAMSULOSIN 0.4 MG CAP.ER.24H PO SCH (08:19)
[2017-05-29] MEDS: CHOLECALCIFEROL 1,000 UNIT TAB PO SCH (08:19)
[2017-05-29] MEDS: NICOTINE 21MG/24HR PATCH TRANSDERM SCH (08:19)
[2017-05-29] MEDS: THIAMINE 100 MG TAB PO SCH (08:19)
[2017-05-29] MEDS: FOLIC ACID 1 MG TAB PO SCH (08:19)
[2017-05-29] MEDS: PANTOPRAZOLE 40 MG/10 ML VIAL IVP SCH ×2 (08:19→20:55)
[2017-05-29 08:48] LABS: Basophils % (A) 1 %; Eosinophils # (A) 0.1 k/uL (0-0.7); Eosinophils % (A) 1 %; HCT 36.4 % (39.0-53.0); HGB 11.3 gm/dL (13.0-17.5); Lymphocytes # (A) 1.6 k/uL (1.0-4.8); Lymphocytes % (A) 16 %; MCH 31.3 pg (25.0-35.0); MCV 100.9 fL (80.0-100.0); Macrocytosis Slight; Mean Platelet Volume 7.5; Monocytes # (A) 0.5 k/uL (0-1.0); Monocytes % (A) 5 %; Neutrophils # (A) 7.6 k/uL (1.3-7.7); Neutrophils % (A) 77 %; Platelet Count 519 k/uL (150-450); RBC 3.61 m/uL (4.30-5.90); RDW 14.3 % (11.5-15.5); WBC 9.8 k/uL (3.8-10.6)
[2017-05-29 09:09] LABS: ALT 40 U/L (21-72); AST 42 U/L (17-59); Albumin 2.7 g/dL (3.5-5.0); Alkaline Phosphatase 192 U/L (38-126); Amylase 123 U/L (30-110); Anion Gap 8 mmol/L; Blood Urea Nitrogen 4 mg/dL (9-20); Calcium 8.8 mg/dL (8.4-10.2); Carbon Dioxide 27 mmol/L (22-30); Chloride 107 mmol/L (98-107); Glucose 101 mg/dL (74-99); Lipase 918 U/L (23-300); Potassium 3.9 mmol/L (3.5-5.1); Sodium 142 mmol/L (137-145); Total Bilirubin 0.4 mg/dL (0.2-1.3); Total Protein 5.5 g/dL (6.3-8.2)
--- NOTE | 2017-05-29 09:29 | HP ---
HISTORY AND PHYSICAL DATE OF SERVICE: 05/28/2017 CHIEF COMPLAINT: Abdominal pain. HISTORY OF PRESENT ILLNESS: This 46-year-old gentleman with a past medical history of multiple medical problems including recurrent pancreatitis, history alcohol intake abuse, history of alcoholic hepatitis, GERD and anxiety depression being by Dr. Jones in the outpatient setting was recently admitted to [facility] with complaints of abdominal pain and with possible acute pancreatitis. The patient improved and patient went home. Patient was feeling okay according to him, but apparently patient ate some greasy chicken according to him and the patient complaining of exacerbation of the pain and the patient admitted for further evaluation and treatment. Amylase was found to be 195, which was fluctuating previously and lipase is 2050, which was also 135 at the time of discharge. There is no history of fever, rigors. No history of headache, loss of consciousness, seizures. PAST MEDICAL HISTORY: History of recurrent chronic pancreatitis, hyperlipidemia, history prostate disorder, history of GERD, history EtOH. MEDICATIONS: Medications prior to admission include: 1. Ultram 50 mg q.6 p.r.n. 2. Augmentin 875 mg p.o. b.i.d. 3. Trazodone 50 mg q.h.s. 4. Vitamin B1, 100 mg p.o. daily. 5. Flomax 0.4. 6. Zofran 4 mg q.8 p.r.n. 7. Prilosec 40 mg p.o. b.i.d. 8. Habitrol daily. 9. Multivitamins 1 p.o. daily. 10.Ativan 0.5 mg t.i.d. p.r.n. 11.Neurontin 300 mg p.o. t.i.d. 12.Folic acid 1 mg daily. 13.Vitamin D3, 2000 daily. 14.Symbicort 80/4.5 one puff b.i.d. 15.Lipitor 10 mg q.h.s. 16.Ventolin HFA 2 puffs q.4 p.r.n. ALLERGIES: None. FAMILY HISTORY: History of diabetes mellitus. SOCIAL HISTORY: History of smoking. No history alcohol intake. REVIEW OF SYSTEMS: ENT: No diminished hearing or diminished vision. CARDIOVASCULAR SYSTEM: No angina or palpitation. RESPIRATORY SYSTEM: No cough or hemoptysis. GI: As mentioned earlier. : No dysuria. NERVOUS SYSTEM: No numbness or weakness. ALLERGY/IMMUNOLOGY: No asthma or hayfever. MUSCULOSKELETAL: As mentioned earlier. HEMATOLOGY/ONCOLOGY: No history of anemia. ENDOCRINE: No history of diabetes or hypothyroidism. CONSTITUTIONAL: As mentioned earlier. DERMATOLOGY: Negative. RHEUMATOLOGY: Negative. PSYCHIATRY; As mentioned earlier. PHYSICAL EXAMINATION: The patient is alert and oriented x3. Pulse 83, blood pressure 145/90, respiration 18, temperature 98.4, pulse ox 100% on room air. HEENT: Conjunctivae normal. Oral mucosa moist. Neck is no jugular venous distention, no carotid bruit. No lymph node enlargement. CARDIOVASCULAR: S1 and S2 muffled. No S3, no S4. RESPIRATORY: Breath sounds diminished at the bases. A few rhonchi, no crackles. ABDOMEN: Soft. Mild diffuse tenderness. Minimal distention present. No guarding. No mass palpable. LEGS: No edema, no swelling. NERVOUS SYSTEM: Higher functions as mentioned earlier. Moves all 4 limbs. No focal deficits. LYMPHATICS: No lymphadenopathy of the neck, axillae or groin. SKIN: No ulcer, rash or bleeding. LABS STUDIES: WBC 16.9, hemoglobin 13.6, platelets 661. Amylase 195, lipase 2050. ASSESSMENT: 1. Acute abdominal pain with severe acute pancreatitis, recurrent pancreatitis. 2. History of relapsing recurrent pancreatitis secondary to alcohol. 3. Increased WBC. 4. Gastroesophageal reflux disease. 5. Hyperlipidemia. 6. History of pneumonia. 7. History of EtOH abuse. 8. History of anxiety, depression. 9. History nicotine dependence. RECOMMENDATIONS AND DISCUSSION: This 46-year-old gentleman who presented with multiple complex medical issues, will monitor the patient closely. Continue the current medications, continue symptomatic treatment. Patient has recurrence of pancreatitis, which could be related to either noncompliance or food. We will continue to monitor. Recommend resume the home medications. Prognosis guarded because of multiple complex medical issues. Further recommendations to follow. Continue the rest of the medications. Discussed with the patient, understands and agrees. A copy of the dictation forwarded to Dr. Jones who is the primary physician. MMODL / IJN: [id number] / MTDD
[2017-05-29 11:36] VITALS: BMI 24.2
--- NOTE | 2017-05-29 15:56 | PN ---
PROGRESS NOTE DATE OF SERVICE: 05/29/2017 This 46-year-old gentleman who was admitted with acute abdominal pain with acute severe pancreatitis, also had a Enterococcus faecalis and Jolie grown from the cultures recently. No chest pain. No palpitations. No fever. Abdominal pain is slightly better. EXAM: Alert and oriented times three. Pulse 81, blood pressure 143/80, respiration 18, temperature 97.8, pulse ox 97% on room air. HEENT: Conjunctivae normal. Neck: No jugular venous distention. Cardiovascular: S1, S2 muffled. Respiratory: Breath sounds diminished in the bases. A few scattered rhonchi and crackles. Abdomen is soft. Mild diffuse discomfort in the epigastrium. No mass palpable. Legs: No edema. No swelling. Central nervous system: No focal deficits. LABS: WBC 9.8, hemoglobin 11.3, albumin is 2.7. Amylase is 123 and lipase is 918. ASSESSMENT: 1. Acute abdominal pain with severe acute pancreatitis with history of recurrent pancreatitis. 2. History of relapse in recurrent pancreatitis secondary to alcohol. 3. History of increased WBC. 4. History of recent Enterococcus in the urine. 5. History of Jolie from the urine multiple times. 6. Gastroesophageal reflux disease. 7. Hyperlipidemia. 8. History of pneumonia. 9. History EtOH abuse. 10.Anxiety, depression. 11.History of nicotine dependence. DISCUSSION AND RECOMMENDATIONS: I recommend to continue current medications, management and symptomatic treatment. Otherwise, at this time, I would monitor the patient closely. Broad-spectrum IV antibiotics. Infectious disease evaluation. Guarded prognosis. Further recommendations to follow. Otherwise advanced diet if the patient is able to tolerate. MMODL / IJN: [id number] /
[2017-05-29] MEDS ORDERED: traZODone HCL 50 MG TAB PO SCH (21:00)
[2017-05-29] MEDS ORDERED: ATORVASTATIN 10 MG TAB PO SCH (21:00)
[2017-05-30] MEDS: HYDROmorphone 2 MG/ML 1 ML SYRINGE IVP PRN ×4 (00:17→09:54)
[2017-05-30 00:33] VITALS: RESP 18
[2017-05-30] MEDS: SODIUM CHLORIDE 0.9% 1,000 ML IV SCH ×3 (05:11→15:39)
[2017-05-30] MEDS: FOLIC ACID 1 MG TAB PO SCH (07:59)
[2017-05-30] MEDS: MULTIVITAMINS, THERA 1 EACH TAB PO SCH (07:59)
[2017-05-30] MEDS: THIAMINE 100 MG TAB PO SCH (07:59)
[2017-05-30] MEDS: TAMSULOSIN 0.4 MG CAP.ER.24H PO SCH (07:59)
[2017-05-30] MEDS: GABAPENTIN 300 MG CAP PO SCH ×2 (08:00→15:40)
[2017-05-30] MEDS: CHOLECALCIFEROL 1,000 UNIT TAB PO SCH (08:00)
[2017-05-30] MEDS: PANTOPRAZOLE 40 MG/10 ML VIAL IVP SCH (08:00)
[2017-05-30] MEDS: NICOTINE 21MG/24HR PATCH TRANSDERM SCH (08:00)
[2017-05-30] MEDS: AMOXIC-POT CLAV 875-125MG 1 EACH TAB PO SCH (08:00)
[2017-05-30] MEDS: ALBUTEROL NEBULIZED 2.5 MG/3 ML INHALATION SCH ×3 (08:21→15:33)
[2017-05-30] MEDS: SYMBICORT 80-4.5 MCG INHALER INHALATION SCH (08:22)
[2017-05-30 08:27] LABS: Basophils % (A) 0 %; Eosinophils # (A) 0.1 k/uL (0-0.7); Eosinophils % (A) 2 %; HCT 34.8 % (39.0-53.0); Lymphocytes # (A) 1.3 k/uL (1.0-4.8); Lymphocytes % (A) 15 %; MCHC 31.6 g/dL (31.0-37.0); MCV 101.4 fL (80.0-100.0); Macrocytosis Slight; Mean Platelet Volume 7.2; Monocytes # (A) 0.4 k/uL (0-1.0); Monocytes % (A) 5 %; Neutrophils % (A) 78 %; Platelet Count 533 k/uL (150-450); RBC 3.43 m/uL (4.30-5.90); RDW 13.3 % (11.5-15.5)
[2017-05-30] MEDS: ONDANSETRON 4 MG/2 ML VIAL IVP PRN (10:00)
--- NOTE | 2017-05-30 10:21 | CONS ---
CONSULTATION DATE OF SERVICE: 05/29/2017 REASON FOR CONSULTATION: Leukocytosis, recent Enterococcus and Jolie in his urine. HISTORY OF PRESENT ILLNESS: The patient is a 46-year-old male with a past medical history significant for recurrent alcohol-related pancreatitis. Patient was recently at this facility and was treated for underlying pancreatitis and subsequent discharged home after overall improvement in his abdominal pain. Patient now coming back to the [facility] ER on the 05/28 with the chief complaints of abdominal pain 2 days. The pain has been in the epigastric area with some radiation down to the lower part, more of a dull aching pain, 6 to 7/10, and no radiation. He did have some nausea but no vomiting and denies having any diarrhea. Denies having any chest pain or shortness of breath or cough. No high- grade fever. Patient has been evaluated by the ER physician on arrival to the ER. The patient remains to be afebrile: Highest temperature has been 99.5; however, the patient did have elevated white count of 16.9. UA did show small leukocyte esterases with 31 WBC. He did have a recent urine culture that was positive for the Enterococcus faecalis that was ampicillin sensitive. The patient was started on Augmentin. ID was consulted for further recommendation of antibiotic therapy. Patient also noticed to have an elevated lipase of 2050, which is down to 918. Patient did mention that abdominal pain has slightly improved. The patient denies having any chest pain or shortness of breath or cough. REVIEW OF SYMPTOMS: CONSTITUTIONAL: Positive for weakness but no fever has been recorded. EYES: No complaint. ENT: No complaint. RESPIRATORY: No complaint. CARDIOVASCULAR: No complaint. GENITOURINARY: As per HPI. GASTROINTESTINAL: As per HPI. MUSCULOSKELETAL: No complaint. INTEGUMENTARY: No complaint. PSYCHOLOGICAL: No complaint. ENDOCRINE: No complaint. NEUROLOGICAL: No complaint. PAST MEDICAL HISTORY: Significant for gastroesophageal reflux disease, hyperlipidemia, pneumonia. Patient did have a urinary retention and self-catheterized himself, history of nephrolithiasis, alcohol hepatitis. PAST SURGICAL HISTORY: Back surgery, cholecystectomy, bronchoscopy. SOCIAL HISTORY: Current everyday smoker. Denies any drinking or drug use. FAMILY HISTORY: Father history of diabetes. Mother history of dementia, hypertension, hyperlipidemia. ALLERGIES: No known drug allergies. MEDICATIONS: The patient is on albuterol sulfate, Augmentin. He is on Lipitor, Symbicort, vitamin D3, folic acid, Neurontin, Dilaudid, Ativan, Theragran, Narcan, nicotine patch, Zofran, Protonix, Flomax, vitamin B1, and Desyrel. PHYSICAL EXAMINATION: Blood pressure is 130/75 with a pulse of 80, temperature of 98.3, T-max 99.5. General description is a middle-aged male lying in bed in no distress. No tachypnea or accessory muscle for respiration use. HEENT examination is slight pallor. No scleral icterus. Oral mucosa is dry. No pharyngeal erythema or thrush NECK: Trachea central. No thyromegaly. LUNGS: Unlabored breathing, clear to auscultation anteriorly. HEART: S1, S2. Regular rate and rhythm. No murmur ABDOMEN: Soft, minimally tender epigastric area with no guarding or rigidity. No organomegaly EXTREMITIES: No edema of the feet. SKIN EXAMINATION: No rash or mass palpable. NEUROLOGICAL: Awake, alert, oriented x3. Mood and affect normal. LABS: Hemoglobin 11.3, white count 9.8, admission white count was 16.9 with a BUN of 4 , creatinine 0.63. Amylase and lipase are elevated, it is down to 123 and 918. Urine has been positive. Last urine culture with Enterococcus faecalis that was sensitive to ampicillin. DIAGNOSTIC IMPRESSION AND PLAN: 1. Patient with mild leukocytosis with a white count of 16,000. Patient has a mildly positive UA in a patient who did have a urinary retention requiring self catheterization, could be likely a component for urinary tract infection and could be the same Enterococcus faecalis that was found on May 22 and was ampicillin sensitive as the patient's white count responded to the same. With risk factor for complicated urinary tract infection including underlying urinary obstruction and need for self-catheterization 2. Patient admitted to the hospital with abdominal pain and acute on chronic pancreatitis being managed by the admitting team. Currently not running any fever, does not look toxic. No significant redness noticed on abdominal examination with concern for underlying complication secondary to acute pancreatitis, being responsible for elevated white count. PLAN: 1. Will keep the patient on Augmentin 875 b.i.d. 2. We will follow up on his repeat urine culture as well as his clinical condition and further adjust the medication if needed. Thank you for this consultation. Will follow this patient along with you. MMODL / IJN: [id number] / MTDD
[2017-05-30] MEDS ORDERED: HYDROcodone/APAP 5-325MG 1 EACH TAB PO PRN (13:32)
--- NOTE | 2017-05-30 16:33 | PN ---
PROGRESS NOTE DATE OF SERVICE: 05/30/2017. REASON FOR FOLLOWUP: Enterococcus urinary tract infection. INTERVAL HISTORY: The patient is afebrile. He has been feeling better. Breathing comfortably. His abdominal pain has improved. He has still self-catheterize himself but denies significant burning of urine or hematuria. EXAMINATION: Blood pressure 137/82 with a pulse of 83, temperature of 97.6. He is 97% on room air. General description is a middle-aged male lying in bed in no distress. RESPIRATORY SYSTEM: Unlabored breathing. Clear to auscultation anteriorly. HEART: S1, S2. Regular rate and rhythm. ABDOMEN: Soft, no tenderness. LABS: White count normal at 9.0, BUN of 4, creatinine 0.63. DIAGNOSTIC IMPRESSION AND PLAN: Patient with mild urinary tract infection. Last culture has been Enterococcus faecalis. The patient risk factor is doing self catheterizations. The patient has been instructed on using a clean antiseptic technique to self-catheterize himself. As well as the Enterococcus urinary tract infection, I will give him a 10 day course of oral Augmentin 875 b.i.d. Continue supportive care. MMODL / IJN: [id number] /
[2017-05-30 16:50] VITALS: BP 127/79; PULSE 100; TEMP 98.2
--- NOTE | 2017-05-30 18:56 | P.DS ---
Providers Date of admission: 05/28/17 19:49 Expected date of discharge: 05/30/17 Attending physician: Jamel Pizano Final diagnoses: !.Acute abdominal pain with acute pancreatitis, history of recurrent pancreatitis 2. Acute UTI withenterococcus faecalis, repeat urine culture in progress. 3. Alcohol abuse, counseled on alcohol cessation. Hospital course: This a 46-year-old gentleman admitted with acute abdominal pain , recurrent pancreatitis, mild urinary tract infection, last culture enterococcus faecalis, in a patient who does self catheterizations. Retained on IV antibiotics as per infectious disease. Significant clinical improvement. Patient has been cleared by ID for discharge. Patient is being discharged home in a stable condition with guarded prognosis. Physical exam: Cardiovascular S1 and S2, muffled, no edema. Respiratory; breath sounds diminished bilateral bases with occasional scattered rhonchi and crackles. Abdomen: Soft, nontender, positive bowel sounds. Psychiatry: Alert and oriented 3 mood and affect normal, no focal deficits. The impression and plan of care has been dictated as directed. Dr.: I performed a history and examination of this patient, discussed the same with the dictator. I agree with the dictator's note ,documented as a scribe. Any additional findings or plans will be noted. Time taken: 35 minutes Consults: 05/29/17 14:33 Consult Physician Routine Consulting Provider: Prabhakar Larios Consult Reason/Comments: recent enterococcus and murray Do you want consulting provider notified?: Yes Primary care physician: Jessa Jones Patient Condition at Discharge: Serious Plan - Discharge Summary Discharge Rx Participant: Yes New Discharge Prescriptions: Continue Folic Acid 1 mg PO DAILY #30 tablet Atorvastatin [Lipitor] 10 mg PO HS Tamsulosin HCl [Flomax] 0.4 mg PO DAILY Gabapentin [Neurontin] 300 mg PO TID LORazepam [Ativan] 0.5 mg PO TID PRN #30 tab PRN Reason: Anxiety traMADol HCL [Ultram] 50 mg PO Q6H PRN PRN Reason: Pain Multivitamins, Thera [Multivitamin (formulary)] 1 tab PO DAILY Albuterol Inhaler [Ventolin Hfa Inhaler] 2 puff INHALATION RT-Q4H PRN PRN Reason: Shortness Of Breath Ondansetron Odt [Zofran ODT] 4 mg PO Q8HR PRN PRN Reason: Nausea traZODone HCL 50 mg PO HS Budesonide/Formoterol Fumarate [Symbicort 80-4.5 Mcg Inhaler] 1 puff INHALATION RT-BID Cholecalciferol (Vitamin D3) [Vitamin D3] 2,000 unit PO DAILY Omeprazole [PriLOSEC] 40 mg PO BID #60 capsule. Thiamine [Vitamin B-1] 100 mg PO DAILY #30 tablet Nicotine 21Mg/24Hr Patch [Habitrol] 1 patch TRANSDERM DAILY #30 patch Amoxic-Pot Clav 875-125Mg [Augmentin 875-125] 1 tab PO Q12HR #20 tablet Discharge Medication List Folic Acid 1 mg PO DAILY #30 tablet 07/15/15 [Rx] Atorvastatin [Lipitor] 10 mg PO HS 09/27/15 [History] Gabapentin [Neurontin] 300 mg PO TID 12/18/16 [History] Tamsulosin HCl [Flomax] 0.4 mg PO DAILY 12/18/16 [History] LORazepam [Ativan] 0.5 mg PO TID PRN #30 tab 12/22/16 [Rx] traMADol HCL [Ultram] 50 mg PO Q6H PRN 02/22/17 [History] Albuterol Inhaler [Ventolin Hfa Inhaler] 2 puff INHALATION RT-Q4H PRN 03/01/17 [ History] Multivitamins, Thera [Multivitamin (formulary)] 1 tab PO DAILY 03/01/17 [History ] Budesonide/Formoterol Fumarate [Symbicort 80-4.5 Mcg Inhaler] 1 puff INHALATION RT-BID 04/04/17 [History] Cholecalciferol (Vitamin D3) [Vitamin D3] 2,000 unit PO DAILY 04/04/17 [History] Ondansetron Odt [Zofran ODT] 4 mg PO Q8HR PRN 04/04/17 [History] traZODone HCL 50 mg PO HS 04/04/17 [History] Omeprazole [PriLOSEC] 40 mg PO BID #60 capsule. 05/16/17 [Rx] Thiamine [Vitamin B-1] 100 mg PO DAILY #30 tablet 05/16/17 [Rx] Nicotine 21Mg/24Hr Patch [Habitrol] 1 patch TRANSDERM DAILY #30 patch 05/25/17 [ Rx] Amoxic-Pot Clav 875-125Mg [Augmentin 875-125] 1 tab PO Q12HR #20 tablet [Rx] Follow up Appointment(s)/Referral(s): Jessa Jones III, MD [Primary Care Provider] - 3 Days (pt will make own appointments ) Prabhakar Larios MD [STAFF PHYSICIAN] - 10 Days (Pt will make own appointments. ) Ambulatory/Diagnostic Orders: Complete Blood Count w/diff [LAB.AMB] Time Frame: 3 Days, Location: Determined By Patient Patient Instructions/Handouts: Pancreatitis (DC) Activity/Diet/Wound Care/Special Instructions: Urinalysis results to PCP & Dr. Larios NO alcohol. Low fiber diet. Activity as tolerated. Discharge Disposition: HOME SELF-CARE
== END 2017-05-30 17:07 | disposition home or self-care (01) | DRG 439 ==
LOC: EC 16:40 → 4MS4W 19:49
PROVIDERS: ADMIT Internal Medicine; ATTEND Internal Medicine
DX: K86.0 Alcohol-induced chronic pancreatitis (principal); N39.0 Urinary tract infection, site not specified; B95.2 Enterococcus as the cause of diseases classified elsewhere; E78.5 Hyperlipidemia, unspecified; F10.10 Alcohol abuse, uncomplicated; K21.9 Gastro-esophageal reflux disease without esophagitis; N42.9 Disorder of prostate, unspecified; F17.200 Nicotine dependence, unspecified, uncomplicated; Z87.01 Personal history of pneumonia (recurrent); Z83.3 Family history of diabetes mellitus; Z79.899 Other long term (current) drug therapy; Z86.59 Personal history of other mental and behavioral disorders; Z71.41 Alcohol abuse counseling and surveillance of alcoholic; Z90.49 Acquired absence of other specified parts of digestive tract; Z82.49 Family history of ischemic heart disease and other diseases of the circulatory system; Z81.8 Family history of other mental and behavioral disorders; Z87.442 Personal history of urinary calculi
CPT/HCPCS: 36415; 74018; 80053; 80306; 80320; 81001; 82150; 83690; 85025; 87086; 94640; 96361; 96374; 96375; 96376; 99285

== ENCOUNTER 2017-06-22 14:53 | Inpatient (IN) | payer MEDICARE, OTHER ==
[2017-06-22] MEDS ORDERED: MORPHINE SULFATE 2 MG/ML SYRINGE IV STA (15:09)
[2017-06-22] MEDS ORDERED: SODIUM CHLORIDE 0.9% 1,000 ML IV STA ×2 (15:09)
[2017-06-22] MEDS ORDERED: PANTOPRAZOLE 40 MG/10 ML VIAL IVP STA (15:09)
[2017-06-22] MEDS ORDERED: SODIUM CHLORIDE 0.9% 500 ML IV STA (15:09)
[2017-06-22] MEDS ORDERED: ONDANSETRON 4 MG/2 ML VIAL IVP STA (15:09)
--- NOTE | 2017-06-22 15:38 | ED ---
General Adult HPI - General Chief complaint: Chest Pain Stated complaint: Chest pain Time Seen by Provider: 06/22/17 15:01 Source: patient, RN notes reviewed, old records reviewed Mode of arrival: ambulatory Limitations: no limitations - History of Present Illness Initial comments: This is a 38-year-old male to the ER for evasive chest pain. Patient states he has chest pain but is more abdominal pain and epigastric abdominal pain. Patient has history of alcohol disease, history of pancreatitis. Positive nausea no vomiting no fevers. No diarrhea. Patient stated when he was discharged in the hospital for pancreatitis he was feeling better, denies recurrent drinking. Patient states his gallbladder and evaluated with no disease. Patient is severe dehydration and pain - Related Data Home Medications Medication Instructions Recorded Confirmed Atorvastatin [Lipitor] 10 mg PO HS 09/27/15 06/22/17 Gabapentin [Neurontin] 300 mg PO TID 12/18/16 06/22/17 Tamsulosin HCl [Flomax] 0.4 mg PO DAILY 12/18/16 06/22/17 traMADol HCL [Ultram] 50 mg PO Q6H PRN 02/22/17 06/22/17 Albuterol Inhaler [Ventolin Hfa 2 puff INHALATION RT-Q4H PRN 03/01/17 06/22/17 Inhaler] Multivitamins, Thera [Multivitamin 1 tab PO DAILY 03/01/17 06/22/17 (formulary)] Budesonide/Formoterol Fumarate 1 puff INHALATION RT-BID 04/04/17 06/22/17 [Symbicort 80-4.5 Mcg Inhaler] Cholecalciferol (Vitamin D3) 2,000 unit PO DAILY 04/04/17 06/22/17 [Vitamin D3] Ondansetron Odt [Zofran ODT] 4 mg PO Q8HR PRN 04/04/17 06/22/17 traZODone HCL 50 mg PO HS 04/04/17 06/22/17 Previous Rx's Medication Instructions Recorded Folic Acid 1 mg PO DAILY #30 tablet 07/15/15 LORazepam [Ativan] 0.5 mg PO TID PRN #30 tab 12/22/16 Omeprazole [PriLOSEC] 40 mg PO BID #60 capsule. 05/16/17 Thiamine [Vitamin B-1] 100 mg PO DAILY #30 tablet 05/16/17 Nicotine 21Mg/24Hr Patch [Habitrol] 1 patch TRANSDERM DAILY #30 patch 05/25/17 Allergies Allergy/AdvReac Type Severity Reaction Status Date / Time No Known Allergies Allergy Verified 06/22/17 16:00 Review of Systems ROS Statement: Those systems with pertinent positive or pertinent negative responses have been documented in the HPI. ROS Other: All systems not noted in ROS Statement are negative. Past Medical History Past Medical History: GERD/Reflux, Hyperlipidemia, Pneumonia, Prostate Disorder Additional Past Medical History / Comment(s): ETOH ABUSE, CHRONIC PANCREATITIS, ALCOHOLIC HEPATITIS, NEPHROLITHIASIS, hx ofCHRONIC URINARY RETENTION DUE TO BACK PROBLEMS-SELF CATHS, LUNG ISSUES-TO BE WORKDED UP BY DR. PARMINDER CONNER. History of Any Multi-Drug Resistant Organisms: None Reported Past Surgical History: Back Surgery, Cholecystectomy, Orthopedic Surgery Additional Past Surgical History / Comment(s): Bronchoscopy, BACK surgery with TITANIUM PLATES MILTON and CAGES, KIDNEY STONES removed per pt, SPINAL CORD STIMULATOR, ISMAEL KNEE ARTHROSCOPIES, PINKY FINGER RT HAND REATTATCHED Past Anesthesia/Blood Transfusion Reactions: No Reported Reaction Past Psychological History: Anxiety, Depression Smoking Status: Current every day smoker Past Alcohol Use History: Daily Past Drug Use History: None Reported - Past Family History Father Family Medical History: Diabetes Mellitus Additional Family Medical History / Comment(s): Mother Family Medical History: Dementia, Hyperlipidemia, Hypertension Additional Family Medical History / Comment(s): Mother is living. General Exam Limitations: no limitations General appearance: alert, in no apparent distress, anxious Head exam: Present: atraumatic, normocephalic, normal inspection Eye exam: Present: normal appearance, PERRL, EOMI. Absent: scleral icterus, conjunctival injection, periorbital swelling ENT exam: Present: normal exam, mucous membranes moist Neck exam: Present: normal inspection. Absent: tenderness, meningismus, lymphadenopathy Respiratory exam: Present: normal lung sounds bilaterally. Absent: respiratory distress, wheezes, rales, rhonchi, stridor Cardiovascular Exam: Present: regular rate, normal rhythm, normal heart sounds. Absent: systolic murmur, diastolic murmur, rubs, gallop, clicks GI/Abdominal exam: Present: soft, distended, tenderness, normal bowel sounds. Absent: guarding, rebound, rigid Extremities exam: Present: normal inspection, full ROM, normal capillary refill. Absent: tenderness, pedal edema, joint swelling, calf tenderness Back exam: Present: normal inspection Neurological exam: Present: alert, oriented X3, CN II-XII intact Psychiatric exam: Present: normal affect, normal mood Skin exam: Present: warm, dry, intact, normal color. Absent: rash Course Vital Signs 06/22/17 14:57 Temperature 97.8 F Pulse Rate 87 Respiratory 20 Rate Blood Pressure 133/87 O2 Sat by Pulse 98 Oximetry - Reevaluation(s) Reevaluation #1: 06/22/17 16:16 Medical records reviewed including prior lipase levels Reevaluation #2: 06/22/17 16:16 Patient does have improvement in pain at this time EKG Findings - EKG Comments: EKG Findings:: EKG shows normal sinus rhythm rate of 80, UT 148, QRS 76, QTc 465 Medical Decision Making - Medical Decision Making 46 male the ER for evaluation. Patient with acute on chronic pancreatitis. Alcohol related pancreatitis. Patient be admitted for IV hydration and by mouth and symptomatically therapy - Lab Data Result diagrams: 06/22/17 15:32 06/22/17 15:32 Lab Results 06/22/17 06/22/17 06/22/17 Range/Units 15:32 15:32 15:32 WBC 11.8 H (3.8-10.6) k/uL RBC 4.24 L (4.30-5.90) m/uL Hgb 13.7 (13.0-17.5) gm/dL Hct 41.9 (39.0-53.0) % MCV 98.7 (80.0-100.0) fL MCH 32.2 (25.0-35.0) pg MCHC 32.6 (31.0-37.0) g/dL RDW 15.0 (11.5-15.5) % Plt Count 305 (150-450) k/uL Neutrophils % 81 % Lymphocytes % 11 % Monocytes % 5 % Eosinophils % 1 % Basophils % 0 % Neutrophils # 9.6 H (1.3-7.7) k/uL Lymphocytes # 1.3 (1.0-4.8) k/uL Monocytes # 0.6 (0-1.0) k/uL Eosinophils # 0.2 (0-0.7) k/uL Basophils # 0.0 (0-0.2) k/uL Sodium 140 (137-145) mmol/L Potassium 4.1 (3.5-5.1) mmol/L Chloride 107 (98-107) mmol/L Carbon Dioxide 24 (22-30) mmol/L Anion Gap 9 mmol/L BUN 3 L (9-20) mg/dL Creatinine 0.60 L (0.66-1.25) mg/dL Est GFR (MDRD) Af Amer >60 (>60 ml/min/1.73 sqM) Est GFR (MDRD) Non-Af >60 (>60 ml/min/1.73 sqM) Glucose 97 (74-99) mg/dL Plasma Lactic Acid Bandar 1.5 (0.7-2.0) mmol/L Calcium 9.0 (8.4-10.2) mg/dL Total Bilirubin 0.3 (0.2-1.3) mg/dL AST 59 (17-59) U/L ALT 39 (21-72) U/L Alkaline Phosphatase 185 H (38-126) U/L Total Protein 7.2 (6.3-8.2) g/dL Albumin 3.7 (3.5-5.0) g/dL Amylase 113 H (30-110) U/L Lipase 1191 H (23-300) U/L Disposition Clinical Impression: Chronic pancreatitis, Acute pancreatitis Disposition: ADMITTED IP TO THIS HOSP Condition: Fair Referrals: Jessa Jones III, MD [Primary Care Provider] - 1-2 days
[2017-06-22] MEDS ORDERED: MORPHINE SULFATE 2 MG/ML SYRINGE IVP ONE (15:45)
[2017-06-22 15:50] LABS: Basophils % (A) 0 %; Eosinophils # (A) 0.2 k/uL (0-0.7); Eosinophils % (A) 1 %; HCT 41.9 % (39.0-53.0); HGB 13.7 gm/dL (13.0-17.5); Lymphocytes # (A) 1.3 k/uL (1.0-4.8); Lymphocytes % (A) 11 %; MCH 32.2 pg (25.0-35.0); MCHC 32.6 g/dL (31.0-37.0); MCV 98.7 fL (80.0-100.0); Mean Platelet Volume 7.8; Monocytes # (A) 0.6 k/uL (0-1.0); Monocytes % (A) 5 %; Neutrophils # (A) 9.6 k/uL (1.3-7.7); Neutrophils % (A) 81 %; Platelet Count 305 k/uL (150-450); RBC 4.24 m/uL (4.30-5.90); WBC 11.8 k/uL (3.8-10.6)
[2017-06-22 15:57] LABS: ALT 39 U/L (21-72); AST 59 U/L (17-59); Albumin 3.7 g/dL (3.5-5.0); Alkaline Phosphatase 185 U/L (38-126); Amylase 113 U/L (30-110); Anion Gap 9 mmol/L; Blood Urea Nitrogen 3 mg/dL (9-20); Carbon Dioxide 24 mmol/L (22-30); Chloride 107 mmol/L (98-107); Glucose 97 mg/dL (74-99); Lipase 1191 U/L (23-300); Sodium 140 mmol/L (137-145); Total Bilirubin 0.3 mg/dL (0.2-1.3); Total Protein 7.2 g/dL (6.3-8.2)
[2017-06-22 15:59] LABS: Potassium 4.1 mmol/L (3.5-5.1)
[2017-06-22] MEDS ORDERED: SODIUM CHLORIDE 0.9% 1,000 ML IV ONE (16:03)
[2017-06-22] MEDS ORDERED: ONDANSETRON 4 MG/2 ML VIAL IVP PRN (16:03)
[2017-06-22] MEDS ORDERED: HYDROmorphone 2 MG/ML 1 ML SYRINGE IVP STA (18:52)
[2017-06-22 21:03] LABS: Appearance,Urine Clear (Clear); Bilirubin,Urine Negative (Negative); Blood,Urine Negative (Negative); Budding Yeast,Urine Many /hpf; Color,Urine Yellow; Glucose,Urine (UA) Negative (Negative); Ketones,Urine Negative (Negative); Leukocyte Esterase,Urine Moderate (Negative); Mucus,Urine Rare /hpf; Nitrite,Urine Negative (Negative); Protein,Urine Negative (Negative); RBC,Urine 3 /hpf (0-5); Specific Gravity,Urine 1.005 (1.001-1.035); Urobilinogen,Urine <2.0 mg/dL (<2.0); WBC,Urine 6 /hpf (0-5)
[2017-06-22] MEDS: MORPHINE SULFATE 2 MG/ML SYRINGE IVP PRN (21:29)
[2017-06-22] MEDS: GABAPENTIN 300 MG CAP PO SCH (21:32)
[2017-06-22] MEDS: NICOTINE 21MG/24HR PATCH TRANSDERM SCH (21:32)
[2017-06-22] MEDS: traZODone HCL 50 MG TAB PO SCH (21:32)
[2017-06-22] MEDS: ATORVASTATIN 10 MG TAB PO SCH (21:32)
[2017-06-22] MEDS: ALBUTEROL NEBULIZED 2.5 MG/3 ML INHALATION PRN (21:40)
[2017-06-22] MEDS: ONDANSETRON 4 MG/2 ML VIAL IVP PRN (23:53)
[2017-06-22] MEDS: LORazepam 0.5 MG TAB PO PRN (23:57)
[2017-06-23] MEDS: MORPHINE SULFATE 2 MG/ML SYRINGE IVP PRN ×6 (01:32→21:55)
[2017-06-23] MEDS: SODIUM CHLORIDE 0.9% 1,000 ML IV SCH ×3 (04:32→21:57)
[2017-06-23] MEDS: SYMBICORT 80-4.5 MCG INHALER INHALATION SCH ×2 (07:46→20:06)
[2017-06-23] MEDS: ALBUTEROL NEBULIZED 2.5 MG/3 ML INHALATION PRN ×4 (07:46→20:06)
[2017-06-23] MEDS: PANTOPRAZOLE 40 MG TABLET PO SCH (08:09)
[2017-06-23] MEDS: TAMSULOSIN 0.4 MG CAP.ER.24H PO SCH (08:09)
[2017-06-23] MEDS: NICOTINE 21MG/24HR PATCH TRANSDERM SCH (08:09)
[2017-06-23] MEDS: GABAPENTIN 300 MG CAP PO SCH ×3 (08:09→21:03)
[2017-06-23] MEDS ORDERED: PANTOPRAZOLE 40 MG/10 ML VIAL IVP SCH (09:00)
[2017-06-23] MEDS: ONDANSETRON 4 MG/2 ML VIAL IVP PRN ×2 (09:55→21:03)
[2017-06-23] MEDS: LORazepam 0.5 MG TAB PO PRN ×2 (11:05→19:17)
[2017-06-23] MEDS: CHOLECALCIFEROL 1,000 UNIT TAB PO SCH (11:19)
[2017-06-23] MEDS: MULTIVITAMINS, THERA 1 EACH TAB PO SCH (11:19)
[2017-06-23] MEDS: THIAMINE 100 MG TAB PO SCH (11:19)
--- NOTE | 2017-06-23 12:07 | P.HPIM ---
History of Present Illness 46-year-old known patient to me history of alcoholism and pancreatitis multiple times in the past came in with epigastric abdominal pain found to have elevated lipase patient has 9 x 10 sharp pain patient was nothing by mouth patient pain significant improved he says because of which patient the will be started on diet repeat lipase and, as of metabolic profile will be obtained patient says he is alert and he did drink beer about couple days ago he says half a beer but I believe his been drinking more than what he is informing is. Patient denied any fever chills, patient did have nausea and vomiting yesterday. Patient is feeling much better than yesterday. Review of Systems REVIEW OF SYSTEMS: CONSTITUTIONAL: No fever, no malaise, no fatigue. HEENT: No recent visual problems or hearing problems. Denied any sore throat. CARDIOVASCULAR: No chest pain, orthopnea, PND, no palpitations, no syncope. PULMONARY: No shortness of breath, no cough, no hemoptysis. GASTROINTESTINAL: As mentioned above NEUROLOGICAL: No headaches, no weakness, no numbness. HEMATOLOGICAL: Denies any bleeding or petechiae. GENITOURINARY: Denies any burning micturition, frequency, or urgency. MUSCULOSKELETAL/RHEUMATOLOGICAL: Denies any joint pain, swelling, or any muscle pain. ENDOCRINE: Denies any polyuria or polydipsia. The rest of the 14-point review of systems is negative. Past Medical History Past Medical History: GERD/Reflux, Hyperlipidemia, Pneumonia, Prostate Disorder Additional Past Medical History / Comment(s): ETOH ABUSE, RECURRANT PANCREATITIS , ALCOHOLIC HEPATITIS, NEPHROLITHIASIS, hx of CHRONIC URINARY RETENTION DUE TO BACK PROBLEMS-SELF CATHS.UTI. History of Any Multi-Drug Resistant Organisms: None Reported Past Surgical History: Back Surgery, Cholecystectomy, Orthopedic Surgery Additional Past Surgical History / Comment(s): Bronchoscopy, BACK surgery with TITANIUM PLATES MILTON and CAGES, KIDNEY STONES removed per pt, SPINAL CORD STIMULATOR, ISMAEL KNEE ARTHROSCOPIES, PINKY FINGER RT HAND REATTATCHED Past Anesthesia/Blood Transfusion Reactions: No Reported Reaction Smoking Status: Current every day smoker - Past Family History Father Family Medical History: Diabetes Mellitus Additional Family Medical History / Comment(s): Mother Family Medical History: Dementia, Hyperlipidemia, Hypertension Additional Family Medical History / Comment(s): Mother is living. Medications and Allergies Home Medications Medication Instructions Recorded Confirmed Type Folic Acid 1 mg PO DAILY #30 tablet 07/15/15 06/22/17 Rx Atorvastatin [Lipitor] 10 mg PO HS 09/27/15 06/22/17 History Gabapentin [Neurontin] 300 mg PO TID 12/18/16 06/22/17 History Tamsulosin HCl [Flomax] 0.4 mg PO DAILY 12/18/16 06/22/17 History LORazepam [Ativan] 0.5 mg PO TID PRN #30 tab 12/22/16 06/22/17 Rx traMADol HCL [Ultram] 50 mg PO Q6H PRN 02/22/17 06/22/17 History Albuterol Inhaler [Ventolin Hfa 2 puff INHALATION RT-Q4H PRN 03/01/17 06/22/17 History Inhaler] Multivitamins, Thera [Multivitamin 1 tab PO DAILY 03/01/17 06/22/17 History (formulary)] Budesonide/Formoterol Fumarate 1 puff INHALATION RT-BID 04/04/17 06/22/17 History [Symbicort 80-4.5 Mcg Inhaler] Cholecalciferol (Vitamin D3) 2,000 unit PO DAILY 04/04/17 06/22/17 History [Vitamin D3] Ondansetron Odt [Zofran ODT] 4 mg PO Q8HR PRN 04/04/17 06/22/17 History traZODone HCL 50 mg PO HS 04/04/17 06/22/17 History Omeprazole [PriLOSEC] 40 mg PO BID #60 capsule. 05/16/17 06/22/17 Rx Thiamine [Vitamin B-1] 100 mg PO DAILY #30 tablet 05/16/17 06/22/17 Rx Nicotine 21Mg/24Hr Patch [Habitrol] 1 patch TRANSDERM DAILY #30 patch 05/25/17 06/22/17 Rx Allergies Allergy/AdvReac Type Severity Reaction Status Date / Time No Known Allergies Allergy Verified 06/22/17 16:00 Physical Exam Vitals: Vital Signs Temp Pulse Pulse Resp BP BP Pulse Ox 06/23/17 11:17 96 06/23/17 11:06 92 06/23/17 08:04 100 06/23/17 07:49 100 98 06/23/17 07:00 99.9 F H 104 H 16 116/72 99 02/02/18 22:10 98.0 F 103 H 16 128/85 95 06/22/17 21:48 84 06/22/17 21:40 84 06/22/17 18:52 97.5 F L 93 18 130/92 98 06/22/17 17:30 97.6 F 88 22 131/56 99 06/22/17 14:57 97.8 F 87 20 133/87 98 Intake and Output 06/22/17 06/23/17 06/23/17 22:59 06:59 14:59 Output Total 250 Balance -250 Output: Urine 250 Other: Voiding Method Toilet Toilet Urinal Urinal # Voids 0 0 PHYSICAL EXAMINATION: GENERAL: The patient is alert and oriented x3, not in any acute distress. Well developed, well nourished. HEENT: Pupils are round and equally reacting to light. EOMI. No scleral icterus. No conjunctival pallor. Normocephalic, atraumatic. No pharyngeal erythema. No thyromegaly. CARDIOVASCULAR: S1 and S2 present. No murmurs, rubs, or gallops. PULMONARY: Chest is clear to auscultation, no wheezing or crackles. ABDOMEN: Soft, nontender, nondistended, normoactive bowel sounds. No palpable organomegaly. MUSCULOSKELETAL: No joint swelling or deformity. EXTREMITIES: No cyanosis, clubbing, or pedal edema. NEUROLOGICAL: Gross neurological examination did not reveal any focal deficits. SKIN: No rashes. Results CBC & Chem 7: 06/22/17 15:32 06/22/17 15:32 Labs: Abnormal Lab Results - Last 24 Hours (Table) 06/22/17 06/22/17 06/22/17 Range/Units 15:32 15:32 20:39 WBC 11.8 H (3.8-10.6) k/uL RBC 4.24 L (4.30-5.90) m/uL Neutrophils # 9.6 H (1.3-7.7) k/uL BUN 3 L (9-20) mg/dL Creatinine 0.60 L (0.66-1.25) mg/dL Alkaline Phosphatase 185 H (38-126) U/L Amylase 113 H (30-110) U/L Lipase 1191 H (23-300) U/L Ur Leukocyte Esterase Moderate H (Negative) Urine WBC 6 H (0-5) /hpf Urine Mucus Rare H (None) /hpf Urine Yeast (Budding) Many H (None) /hpf Microbiology - Last 24 Hours (Table) 06/22/17 20:39 Urine Culture - Preliminary Urine,Voided Assessment and Plan Plan: -Acute alcohol he Nura: Improved symptoms patient will be resumed on clear liquid diet if he is doing okay will be discharged later today or tomorrow -Continued alcoholism extensive counseling was provided -Alcohol he gastritis -COPD without any acute exacerbation continue with IV fluids can you with Protonix
[2017-06-23] MEDS: FOLIC ACID 1 MG TAB PO SCH (12:14)
[2017-06-23 12:57] LABS: ALT 114 U/L (21-72); AST 210 U/L (17-59); Albumin 2.7 g/dL (3.5-5.0); Alkaline Phosphatase 321 U/L (38-126); Anion Gap 8 mmol/L; Blood Urea Nitrogen 5 mg/dL (9-20); Calcium 8.5 mg/dL (8.4-10.2); Carbon Dioxide 24 mmol/L (22-30); Chloride 106 mmol/L (98-107); Glucose 116 mg/dL (74-99); Lipase 770 U/L (23-300); Potassium 4.7 mmol/L (3.5-5.1); Sodium 138 mmol/L (137-145); Total Bilirubin 1.2 mg/dL (0.2-1.3); Total Protein 5.5 g/dL (6.3-8.2)
[2017-06-23] MEDS ORDERED: DOCUSATE 100 MG CAP PO PRN (13:01)
[2017-06-23] MEDS: ATORVASTATIN 10 MG TAB PO SCH (19:17)
[2017-06-23] MEDS: traZODone HCL 50 MG TAB PO SCH (19:17)
[2017-06-24] MEDS: LORazepam 0.5 MG TAB PO PRN ×2 (01:20→09:33)
[2017-06-24] MEDS: MORPHINE SULFATE 2 MG/ML SYRINGE IVP PRN ×3 (02:14→10:57)
[2017-06-24 06:15] VITALS: BP 113/63; RESP 20; TEMP 98.8
[2017-06-24 06:56] LABS: HCT 35.5 % (39.0-53.0); HGB 11.7 gm/dL (13.0-17.5); MCH 33.5 pg (25.0-35.0); MCHC 32.8 g/dL (31.0-37.0); MCV 102.2 fL (80.0-100.0); Macrocytosis Slight; Mean Platelet Volume 7.9; Platelet Count 203 k/uL (150-450); RBC 3.48 m/uL (4.30-5.90); RDW 14.7 % (11.5-15.5); WBC 7.8 k/uL (3.8-10.6)
[2017-06-24 07:02] LABS: ALT 85 U/L (21-72); AST 63 U/L (17-59); Albumin 2.5 g/dL (3.5-5.0); Alkaline Phosphatase 262 U/L (38-126); Anion Gap 5 mmol/L; Blood Urea Nitrogen 4 mg/dL (9-20); Calcium 8.5 mg/dL (8.4-10.2); Carbon Dioxide 25 mmol/L (22-30); Chloride 109 mmol/L (98-107); Glucose 107 mg/dL (74-99); Lipase 248 U/L (23-300); Potassium 4.4 mmol/L (3.5-5.1); Sodium 139 mmol/L (137-145); Total Protein 5.2 g/dL (6.3-8.2)
[2017-06-24] MEDS: ALBUTEROL NEBULIZED 2.5 MG/3 ML INHALATION PRN ×2 (07:17→11:11)
[2017-06-24] MEDS: SYMBICORT 80-4.5 MCG INHALER INHALATION SCH (07:18)
[2017-06-24] MEDS: PANTOPRAZOLE 40 MG TABLET PO SCH (07:24)
[2017-06-24] MEDS: GABAPENTIN 300 MG CAP PO SCH (07:24)
[2017-06-24] MEDS: NICOTINE 21MG/24HR PATCH TRANSDERM SCH (07:24)
[2017-06-24] MEDS: TAMSULOSIN 0.4 MG CAP.ER.24H PO SCH (07:24)
[2017-06-24] MEDS: SODIUM CHLORIDE 0.9% 1,000 ML IV SCH (07:24)
[2017-06-24] MEDS: CHOLECALCIFEROL 1,000 UNIT TAB PO SCH (10:58)
[2017-06-24] MEDS: FOLIC ACID 1 MG TAB PO SCH (10:58)
[2017-06-24] MEDS: THIAMINE 100 MG TAB PO SCH (10:58)
[2017-06-24] MEDS: MULTIVITAMINS, THERA 1 EACH TAB PO SCH (10:58)
[2017-06-24 11:23] VITALS: PULSE 92
--- NOTE | 2017-06-24 12:52 | P.DS ---
Providers Date of admission: 06/22/17 16:03 Attending physician: Socorro Barragan Primary care physician: Jessa Delaney [facility] Course: Patient was admitted for alcoholic pancreatitis improved symptoms and patient is being discharged today patient is able to tolerate soft diet very well and the lipase have has come down. PHYSICAL EXAMINATION: GENERAL: The patient is alert and oriented x3, not in any acute distress. Well developed, well nourished. HEENT: Pupils are round and equally reacting to light. EOMI. No scleral icterus. No conjunctival pallor. Normocephalic, atraumatic. No pharyngeal erythema. No thyromegaly. CARDIOVASCULAR: S1 and S2 present. No murmurs, rubs, or gallops. PULMONARY: Chest is clear to auscultation, no wheezing or crackles. ABDOMEN: Soft, nontender, nondistended, normoactive bowel sounds. No palpable organomegaly. MUSCULOSKELETAL: No joint swelling or deformity. EXTREMITIES: No cyanosis, clubbing, or pedal edema. NEUROLOGICAL: Gross neurological examination did not reveal any focal deficits. SKIN: No rashes. For rest of the other chronic medical problems and hospital course please refer to my dictation of H&P from yesterday Patient Condition at Discharge: Fair Plan - Discharge Summary Discharge Rx Participant: No New Discharge Prescriptions: No Action Folic Acid 1 mg PO DAILY #30 tablet Atorvastatin [Lipitor] 10 mg PO HS Tamsulosin HCl [Flomax] 0.4 mg PO DAILY Gabapentin [Neurontin] 300 mg PO TID LORazepam [Ativan] 0.5 mg PO TID PRN #30 tab PRN Reason: Anxiety traMADol HCL [Ultram] 50 mg PO Q6H PRN PRN Reason: Pain Multivitamins, Thera [Multivitamin (formulary)] 1 tab PO DAILY Albuterol Inhaler [Ventolin Hfa Inhaler] 2 puff INHALATION RT-Q4H PRN PRN Reason: Shortness Of Breath Ondansetron Odt [Zofran ODT] 4 mg PO Q8HR PRN PRN Reason: Nausea traZODone HCL 50 mg PO HS Budesonide/Formoterol Fumarate [Symbicort 80-4.5 Mcg Inhaler] 1 puff INHALATION RT-BID Cholecalciferol (Vitamin D3) [Vitamin D3] 2,000 unit PO DAILY Omeprazole [PriLOSEC] 40 mg PO BID #60 capsule. Thiamine [Vitamin B-1] 100 mg PO DAILY #30 tablet Nicotine 21Mg/24Hr Patch [Habitrol] 1 patch TRANSDERM DAILY #30 patch Discharge Medication List Folic Acid 1 mg PO DAILY #30 tablet 07/15/15 [Rx] Atorvastatin [Lipitor] 10 mg PO HS 09/27/15 [History] Gabapentin [Neurontin] 300 mg PO TID 12/18/16 [History] Tamsulosin HCl [Flomax] 0.4 mg PO DAILY 12/18/16 [History] LORazepam [Ativan] 0.5 mg PO TID PRN #30 tab 12/22/16 [Rx] traMADol HCL [Ultram] 50 mg PO Q6H PRN 02/22/17 [History] Albuterol Inhaler [Ventolin Hfa Inhaler] 2 puff INHALATION RT-Q4H PRN 03/01/17 [ History] Multivitamins, Thera [Multivitamin (formulary)] 1 tab PO DAILY 03/01/17 [History ] Budesonide/Formoterol Fumarate [Symbicort 80-4.5 Mcg Inhaler] 1 puff INHALATION RT-BID 04/04/17 [History] Cholecalciferol (Vitamin D3) [Vitamin D3] 2,000 unit PO DAILY 04/04/17 [History] Ondansetron Odt [Zofran ODT] 4 mg PO Q8HR PRN 04/04/17 [History] traZODone HCL 50 mg PO HS 04/04/17 [History] Omeprazole [PriLOSEC] 40 mg PO BID #60 capsule. 05/16/17 [Rx] Thiamine [Vitamin B-1] 100 mg PO DAILY #30 tablet 05/16/17 [Rx] Nicotine 21Mg/24Hr Patch [Habitrol] 1 patch TRANSDERM DAILY #30 patch 05/25/17 [ Rx] Follow up Appointment(s)/Referral(s): Jessa Jones III, MD [Primary Care Provider] - 3 Days Discharge Disposition: HOME SELF-CARE
== END 2017-06-24 14:20 | disposition home or self-care (01) | DRG 440 ==
LOC: EC 14:53 → 5MS5E 16:03
PROVIDERS: ADMIT Hospitalist; ATTEND Hospitalist
DX: K85.20 Alcohol induced acute pancreatitis without necrosis or infection (principal); E78.5 Hyperlipidemia, unspecified; K86.0 Alcohol-induced chronic pancreatitis; E86.0 Dehydration; F10.20 Alcohol dependence, uncomplicated; F17.200 Nicotine dependence, unspecified, uncomplicated; J44.9 Chronic obstructive pulmonary disease, unspecified; K21.9 Gastro-esophageal reflux disease without esophagitis; F32.9 Major depressive disorder, single episode, unspecified; F41.9 Anxiety disorder, unspecified; N42.9 Disorder of prostate, unspecified; K29.20 Alcoholic gastritis without bleeding; R33.9 Retention of urine, unspecified; Z79.899 Other long term (current) drug therapy; Z87.442 Personal history of urinary calculi; Z71.41 Alcohol abuse counseling and surveillance of alcoholic; Z82.49 Family history of ischemic heart disease and other diseases of the circulatory system
CPT/HCPCS: 36415; 80053; 81001; 82150; 83605; 83690; 85025; 85027; 87086; 93005; 94640; 94760; 96361; 96374; 96375; 99285

== ENCOUNTER 2017-07-06 03:36 | Observation (INO) | payer MEDICARE, OTHER ==
[2017-07-06] MEDS ORDERED: MORPHINE SULFATE 4 MG/ML SYRINGE IV STA (04:22)
[2017-07-06] MEDS ORDERED: SODIUM CHLORIDE 0.9% 500 ML IV STA (04:22)
[2017-07-06] MEDS ORDERED: PANTOPRAZOLE 40 MG/10 ML VIAL IVP STA (04:22)
[2017-07-06] MEDS ORDERED: METOCLOPRAMIDE 5 MG/ML 2 ML VIAL IVP STA (04:22)
--- NOTE | 2017-07-06 04:25 | ED ---
General Adult HPI - General Chief complaint: Abdominal Pain Stated complaint: Abdominal pain Time Seen by Provider: 07/06/17 04:18 Source: patient, RN notes reviewed Mode of arrival: ambulatory Limitations: no limitations - History of Present Illness Initial comments: Patient is a pleasant 46-year-old male presenting to the emergency Department with abdominal discomfort. Onset of symptoms was a couple hours ago. Patient has had similar symptoms approximately 6 or 7 times previously associated with pancreatitis. Patient does have a history of alcohol use and did drink some yesterday. Patient states discomfort does travel towards the back and chest which is normal with his pancreatitis. Patient does have some nausea. No fevers. Discomfort is mostly in the epigastric region. - Related Data Home Medications Medication Instructions Recorded Confirmed Atorvastatin [Lipitor] 10 mg PO HS 09/27/15 06/22/17 Gabapentin [Neurontin] 300 mg PO TID 12/18/16 06/22/17 Tamsulosin HCl [Flomax] 0.4 mg PO DAILY 12/18/16 06/22/17 traMADol HCL [Ultram] 50 mg PO Q6H PRN 02/22/17 06/22/17 Albuterol Inhaler [Ventolin Hfa 2 puff INHALATION RT-Q4H PRN 03/01/17 06/22/17 Inhaler] Multivitamins, Thera [Multivitamin 1 tab PO DAILY 03/01/17 06/22/17 (formulary)] Budesonide/Formoterol Fumarate 1 puff INHALATION RT-BID 04/04/17 06/22/17 [Symbicort 80-4.5 Mcg Inhaler] Cholecalciferol (Vitamin D3) 2,000 unit PO DAILY 04/04/17 06/22/17 [Vitamin D3] Ondansetron Odt [Zofran ODT] 4 mg PO Q8HR PRN 04/04/17 06/22/17 traZODone HCL 50 mg PO HS 04/04/17 06/22/17 Previous Rx's Medication Instructions Recorded Folic Acid 1 mg PO DAILY #30 tablet 07/15/15 LORazepam [Ativan] 0.5 mg PO TID PRN #30 tab 12/22/16 Omeprazole [PriLOSEC] 40 mg PO BID #60 capsule. 05/16/17 Thiamine [Vitamin B-1] 100 mg PO DAILY #30 tablet 05/16/17 Nicotine 21Mg/24Hr Patch [Habitrol] 1 patch TRANSDERM DAILY #30 patch 05/25/17 Allergies Allergy/AdvReac Type Severity Reaction Status Date / Time No Known Allergies Allergy Verified 06/22/17 16:00 Review of Systems ROS Statement: Those systems with pertinent positive or pertinent negative responses have been documented in the HPI. ROS Other: All systems not noted in ROS Statement are negative. Constitutional: Denies: fever Eyes: Denies: eye pain ENT: Denies: ear pain Respiratory: Denies: cough Cardiovascular: Reports: chest pain Endocrine: Denies: fatigue Gastrointestinal: Reports: abdominal pain Genitourinary: Denies: dysuria Musculoskeletal: Denies: back pain Skin: Denies: rash Neurological: Denies: weakness Past Medical History Past Medical History: GERD/Reflux, Hyperlipidemia, Pneumonia, Prostate Disorder Additional Past Medical History / Comment(s): ETOH ABUSE, RECURRANT PANCREATITIS , ALCOHOLIC HEPATITIS, NEPHROLITHIASIS, hx of CHRONIC URINARY RETENTION DUE TO BACK PROBLEMS-SELF CATHS.UTI. History of Any Multi-Drug Resistant Organisms: None Reported Past Surgical History: Back Surgery, Cholecystectomy, Orthopedic Surgery Additional Past Surgical History / Comment(s): Bronchoscopy, BACK surgery with TITANIUM PLATES MILTON and CAGES, KIDNEY STONES removed per pt, SPINAL CORD STIMULATOR, ISMAEL KNEE ARTHROSCOPIES, PINKY FINGER RT HAND REATTATCHED Past Anesthesia/Blood Transfusion Reactions: No Reported Reaction Past Psychological History: Anxiety, Depression Smoking Status: Current every day smoker Past Alcohol Use History: Daily Past Drug Use History: None Reported - Past Family History Father Family Medical History: Diabetes Mellitus Additional Family Medical History / Comment(s): Mother Family Medical History: Dementia, Hyperlipidemia, Hypertension Additional Family Medical History / Comment(s): Mother is living. General Exam Limitations: no limitations General appearance: alert, in no apparent distress Head exam: Present: atraumatic Eye exam: Present: normal appearance, PERRL ENT exam: Present: normal oropharynx Neck exam: Present: normal inspection Respiratory exam: Present: normal lung sounds bilaterally. Absent: chest wall tenderness Cardiovascular Exam: Present: regular rate, normal rhythm Expanded Peripheral pulses: 2+: Radial (R), Radial (L), Posterior Tibialis (R), Posterior Tibialis (L) GI/Abdominal exam: Present: soft. Absent: distended, tenderness Extremities exam: Present: normal inspection Neurological exam: Present: alert Psychiatric exam: Present: normal affect, normal mood Skin exam: Present: normal color Course Vital Signs 07/06/17 07/06/17 03:37 06:00 Temperature 97.5 F L Pulse Rate 91 77 Respiratory 16 18 Rate Blood Pressure 115/75 121/75 O2 Sat by Pulse 100 97 Oximetry EKG Findings - EKG Comments: EKG Findings:: Normal sinus rhythm 88. DE 150. QRS 80. QT 394. QTC 476. Normal axis. Normal QRS. No acute ST change. Medical Decision Making - Medical Decision Making Patient has requested pain medication multiple times. Patient reevaluated and resting comfortably in bed. Patient is updated on results. Patient states discomfort still is mostly in the epigastric region. Patient is not comfortable with discharge at this time and is agreeable to stay for observation for repeat testing. Case was discussed with practitioner Concepcion mcmahan, who will admit for Dr. Diallo, covering for Dr. Jones. - Lab Data Result diagrams: 07/06/17 04:00 07/06/17 04:00 Lab Results 07/06/17 07/06/17 07/06/17 Range/Units 04:00 04:00 04:00 WBC 10.2 (3.8-10.6) k/uL RBC 4.35 (4.30-5.90) m/uL Hgb 14.0 (13.0-17.5) gm/dL Hct 43.4 (39.0-53.0) % MCV 99.7 (80.0-100.0) fL MCH 32.3 (25.0-35.0) pg MCHC 32.4 (31.0-37.0) g/dL RDW 13.6 (11.5-15.5) % Plt Count 524 H D (150-450) k/uL Neutrophils % 73 % Lymphocytes % 20 % Monocytes % 5 % Eosinophils % 1 % Basophils % 0 % Neutrophils # 7.5 (1.3-7.7) k/uL Lymphocytes # 2.0 (1.0-4.8) k/uL Monocytes # 0.5 (0-1.0) k/uL Eosinophils # 0.1 (0-0.7) k/uL Basophils # 0.0 (0-0.2) k/uL PT (9.0-12.0) sec INR (<1.2) APTT (22.0-30.0) sec Sodium 138 (137-145) mmol/L Potassium 4.1 (3.5-5.1) mmol/L Chloride 102 (98-107) mmol/L Carbon Dioxide 25 (22-30) mmol/L Anion Gap 11 mmol/L BUN 3 L (9-20) mg/dL Creatinine 0.60 L (0.66-1.25) mg/dL Est GFR (MDRD) Af Amer >60 (>60 ml/min/1.73 sqM) Est GFR (MDRD) Non-Af >60 (>60 ml/min/1.73 sqM) Glucose 89 (74-99) mg/dL Calcium 9.3 (8.4-10.2) mg/dL Total Bilirubin 0.2 (0.2-1.3) mg/dL AST 16 L (17-59) U/L ALT 18 L (21-72) U/L Alkaline Phosphatase 145 H (38-126) U/L Total Creatine Kinase 46 L (55-170) U/L CK-MB (CK-2) 0.5 (0.0-2.4) ng/mL CK-MB (CK-2) Rel Index 1.1 Troponin I <0.012 (0.000-0.034) ng/mL Total Protein 6.6 (6.3-8.2) g/dL Albumin 3.4 L (3.5-5.0) g/dL Amylase 54 (30-110) U/L Lipase 203 (23-300) U/L Urine Color Urine Appearance (Clear) Urine pH (5.0-8.0) Ur Specific Amorita (1.001-1.035) Urine Protein (Negative) Urine Glucose (UA) (Negative) Urine Ketones (Negative) Urine Blood (Negative) Urine Nitrite (Negative) Urine Bilirubin (Negative) Urine Urobilinogen (<2.0) mg/dL Ur Leukocyte Esterase (Negative) 07/06/17 07/06/17 Range/Units 04:00 06:08 WBC (3.8-10.6) k/uL RBC (4.30-5.90) m/uL Hgb (13.0-17.5) gm/dL Hct (39.0-53.0) % MCV (80.0-100.0) fL MCH (25.0-35.0) pg MCHC (31.0-37.0) g/dL RDW (11.5-15.5) % Plt Count (150-450) k/uL Neutrophils % % Lymphocytes % % Monocytes % % Eosinophils % % Basophils % % Neutrophils # (1.3-7.7) k/uL Lymphocytes # (1.0-4.8) k/uL Monocytes # (0-1.0) k/uL Eosinophils # (0-0.7) k/uL Basophils # (0-0.2) k/uL PT 9.8 (9.0-12.0) sec INR 1.0 (<1.2) APTT 23.6 (22.0-30.0) sec Sodium (137-145) mmol/L Potassium (3.5-5.1) mmol/L Chloride (98-107) mmol/L Carbon Dioxide (22-30) mmol/L Anion Gap mmol/L BUN (9-20) mg/dL Creatinine (0.66-1.25) mg/dL Est GFR (MDRD) Af Amer (>60 ml/min/1.73 sqM) Est GFR (MDRD) Non-Af (>60 ml/min/1.73 sqM) Glucose (74-99) mg/dL Calcium (8.4-10.2) mg/dL Total Bilirubin (0.2-1.3) mg/dL AST (17-59) U/L ALT (21-72) U/L Alkaline Phosphatase (38-126) U/L Total Creatine Kinase (55-170) U/L CK-MB (CK-2) (0.0-2.4) ng/mL CK-MB (CK-2) Rel Index Troponin I (0.000-0.034) ng/mL Total Protein (6.3-8.2) g/dL Albumin (3.5-5.0) g/dL Amylase (30-110) U/L Lipase (23-300) U/L Urine Color Light Yellow Urine Appearance Clear (Clear) Urine pH 6.0 (5.0-8.0) Ur Specific Amorita 1.001 (1.001-1.035) Urine Protein Negative (Negative) Urine Glucose (UA) Negative (Negative) Urine Ketones Negative (Negative) Urine Blood Negative (Negative) Urine Nitrite Negative (Negative) Urine Bilirubin Negative (Negative) Urine Urobilinogen <2.0 (<2.0) mg/dL Ur Leukocyte Esterase Negative (Negative) - Radiology Data Radiology results: image reviewed (Chest x-ray shows no acute abnormality. KUB shows no acute abnormality.) Disposition Clinical Impression: Abdominal pain, Chest pain Disposition: ADMITTED IP TO THIS [facility] Referrals: Jessa Jones III, MD [Primary Care Provider] - 1-2 days Decision Time: 06:18
[2017-07-06 04:35] LABS: Basophils % (A) 0 %; Eosinophils # (A) 0.1 k/uL (0-0.7); Eosinophils % (A) 1 %; HCT 43.4 % (39.0-53.0); Lymphocytes % (A) 20 %; MCH 32.3 pg (25.0-35.0); MCHC 32.4 g/dL (31.0-37.0); MCV 99.7 fL (80.0-100.0); Mean Platelet Volume 7.3; Monocytes # (A) 0.5 k/uL (0-1.0); Monocytes % (A) 5 %; Neutrophils # (A) 7.5 k/uL (1.3-7.7); Neutrophils % (A) 73 %; RBC 4.35 m/uL (4.30-5.90); RDW 13.6 % (11.5-15.5); WBC 10.2 k/uL (3.8-10.6)
[2017-07-06 04:39] LABS: Platelet Count 524 k/uL (150-450)
[2017-07-06 04:42] LABS: Partial Thromboplastin Time 23.6 sec (22.0-30.0); Prothrombin Time 9.8 sec (9.0-12.0)
[2017-07-06 04:49] LABS: ALT 18 U/L (21-72); AST 16 U/L (17-59); Albumin 3.4 g/dL (3.5-5.0); Alkaline Phosphatase 145 U/L (38-126); Amylase 54 U/L (30-110); Anion Gap 11 mmol/L; Blood Urea Nitrogen 3 mg/dL (9-20); Calcium 9.3 mg/dL (8.4-10.2); Carbon Dioxide 25 mmol/L (22-30); Chloride 102 mmol/L (98-107); Glucose 89 mg/dL (74-99); Lipase 203 U/L (23-300); Potassium 4.1 mmol/L (3.5-5.1); Sodium 138 mmol/L (137-145); Total Bilirubin 0.2 mg/dL (0.2-1.3); Total Protein 6.6 g/dL (6.3-8.2)
[2017-07-06 04:54] LABS: Creatine Kinase 46 U/L (55-170)
[2017-07-06 05:07] LABS: Creatine Kinase MB 0.5 ng/mL (0.0-2.4); Troponin I <0.012 ng/mL (0.000-0.034)
--- NOTE | 2017-07-06 05:22 | XR ---
EXAM: XR Abdomen, 2 Views CLINICAL HISTORY: ITS.REASON XR Reason: abdominal pain TECHNIQUE: Frontal view of the abdomen/pelvis with upright view of the abdomen. COMPARISON: 05/28/2017 FINDINGS: Intraperitoneal space: No definitive free air. Gastrointestinal tract: Nonspecific, non-occlusive bowel gas pattern. No dilation. Organs: Cholecystectomy clips. Bones/joints: Stable post fusion changes to the lumbar spine. Stable degenerative changes along the spine. Tubes, lines and devices: Nerve stimulator again noted. IMPRESSION: No acute radiographic findings.
--- NOTE | 2017-07-06 05:24 | XR ---
EXAM: XR Chest, 1 View CLINICAL HISTORY: ITS.REASON XR Reason: abdominal pain TECHNIQUE: Frontal view of the chest. COMPARISON: No relevant prior studies available. FINDINGS: Lungs: Unremarkable. No consolidation. Pleural space: Unremarkable. No pneumothorax. Heart: Unremarkable. No cardiomegaly. Mediastinum: Unremarkable. Bones/joints: Unremarkable. Tubes, lines and devices: Neurostimulator leads again noted. IMPRESSION: No acute radiographic findings.
[2017-07-06 06:15] LABS: Appearance,Urine Clear (Clear); Bilirubin,Urine Negative (Negative); Blood,Urine Negative (Negative); Color,Urine Light Yellow; Glucose,Urine (UA) Negative (Negative); Ketones,Urine Negative (Negative); Leukocyte Esterase,Urine Negative (Negative); Protein,Urine Negative (Negative); Specific Gravity,Urine 1.001 (1.001-1.035); Urobilinogen,Urine <2.0 mg/dL (<2.0)
[2017-07-06] MEDS ORDERED: NITROGLYCERIN SL TABS 0.4 MG TAB SUBLINGUAL PRN (06:19)
[2017-07-06] MEDS ORDERED: ASPIRIN 81 MG PO STA (06:19)
[2017-07-06] MEDS ORDERED: DICYCLOMINE 10 MG/ML 2 ML AMP IM STA (06:19)
--- NOTE | 2017-07-06 09:10 | US ---
EXAMINATION TYPE: US abdomen limited DATE OF EXAM: 07/06/2017 COMPARISON: CT abdomen pelvis 04/24/2017 CLINICAL HISTORY: Pain. known pancreatic cysts, cholecystectomy EXAM MEASUREMENTS: Liver Length: 14.3 cm Gallbladder Wall: Surgically absent CBD: 0.5 cm Right Kidney: 10.5 x 5.3 x 5.8 cm Pancreas: limited views due to bowel gas, but 3.6cm portion of pancreatic head/neck appears bulky an d hypoechoic, low-level internal echoes are noted Liver: Shows a somewhat coarse echotexture, there is no definite dilation of the biliary system Gallbladder: Surgically absent Evidence for sonographic Deluca's sign: no CBD: wnl Right Kidney: No hydronephrosis, cortical medullary differentiation is maintained There is no ascites. IMPRESSION: Abnormality in the pancreatic head could be related to pancreatic pseudocyst possibly cameron nopathy, malignancy felt to be less likely, consider CT scan or MRI of the pancreas with dedicated pr otocol for better evaluation.
[2017-07-06] MEDS: MORPHINE SULFATE 4 MG/ML SYRINGE IVP PRN ×4 (09:27→22:17)
[2017-07-06] MEDS: NITROGLYCERIN OINT 1 INCH/GM PACKET TOPICAL SCH ×3 (09:34→19:01)
[2017-07-06] MEDS: SODIUM CHLORIDE 0.9% 1,000 ML IV SCH ×2 (09:34→22:05)
[2017-07-06 11:34] LABS: Creatine Kinase 194 U/L (55-170)
[2017-07-06 11:46] LABS: Troponin I <0.012 ng/mL (0.000-0.034)
[2017-07-06] MEDS: MULTIVITAMINS, THERA 1 EACH TAB PO SCH (13:33)
[2017-07-06] MEDS: THIAMINE 100 MG TAB PO SCH (13:33)
--- NOTE | 2017-07-06 14:03 | P.HPIM ---
History of Present Illness H&P Date: 07/06/17 Chief Complaint: Abdominal pain Patient is a 46-year-old male with a known history of GERD, EtOH abuse and recent pancreatitis came to ER with complaints of abdominal discomfort. Onset of symptoms was a couple hours ago. Patient has had similar symptoms approximately 6 or 7 times previously associated with pancreatitis. Patient does have a history of alcohol use and did drink 1 glass of wine yesterday. Patient states discomfort does travel towards the back and chest which is normal with his pancreatitis. Patient does have some nausea. No fevers. Discomfort is mostly in the epigastric region. No fever no chills. Ultrasound of the abdomen showed possible pancreatic head pseudocyst. Unlikely emergency. Lipase 203 Review of Systems Constitutional: Patient denies any fever or chills . No generalized weakness or weight loss. Abdomen: Patient does have epigastric abdominal pain and nausea. No vomiting. No diarrhea. Cardiovascular: Patient denies any chest pain or short of breath no palpitations. Respiratory: patient denied any cough is from production. No shortness of breath Neurologic: Patient denied any numbness or tingling headache. Musculoskeletal: Patient denies any complaints of joint swelling or deformity. Skin: Negative Psychiatric: Negative Endocrine: No heat or cold intolerance. No recent weight gain. Genitourinary: No dysuria or hematuria. All other 14 point ROS negative except the above Past Medical History Past Medical History: GERD/Reflux, Hyperlipidemia, Pneumonia, Prostate Disorder Additional Past Medical History / Comment(s): ETOH ABUSE, RECURRANT PANCREATITIS , ALCOHOLIC HEPATITIS, NEPHROLITHIASIS, hx of CHRONIC URINARY RETENTION DUE TO BACK PROBLEMS-SELF CATHS.UTI. CHRONIC LOW BACK PAIN. History of Any Multi-Drug Resistant Organisms: None Reported Past Surgical History: Back Surgery, Cholecystectomy, Orthopedic Surgery Additional Past Surgical History / Comment(s): Bronchoscopy, BACK surgeries with TITANIUM PLATES MILTON and CAGES, KIDNEY STONES removed per pt, SPINAL CORD STIMULATOR, ISMAEL KNEE ARTHROSCOPIES, PINKY FINGER RT HAND REATTATCHED Past Anesthesia/Blood Transfusion Reactions: No Reported Reaction Smoking Status: Current every day smoker - Past Family History Father Family Medical History: Diabetes Mellitus Additional Family Medical History / Comment(s): Mother Family Medical History: Dementia, Hyperlipidemia, Hypertension Additional Family Medical History / Comment(s): Mother is living. Medications and Allergies Home Medications Medication Instructions Recorded Confirmed Type Folic Acid 1 mg PO DAILY #30 tablet 07/15/15 07/06/17 Rx Atorvastatin [Lipitor] 10 mg PO HS 09/27/15 07/06/17 History Gabapentin [Neurontin] 300 mg PO TID 12/18/16 07/06/17 History Tamsulosin HCl [Flomax] 0.4 mg PO DAILY 12/18/16 07/06/17 History LORazepam [Ativan] 0.5 mg PO TID PRN #30 tab 12/22/16 07/06/17 Rx traMADol HCL [Ultram] 50 mg PO Q6H PRN 02/22/17 07/06/17 History Albuterol Inhaler [Ventolin Hfa 2 puff INHALATION RT-Q4H PRN 03/01/17 07/06/17 History Inhaler] Multivitamins, Thera [Multivitamin 1 tab PO DAILY 03/01/17 07/06/17 History (formulary)] Budesonide/Formoterol Fumarate 1 puff INHALATION RT-BID 04/04/17 07/06/17 History [Symbicort 80-4.5 Mcg Inhaler] Cholecalciferol (Vitamin D3) 2,000 unit PO DAILY 04/04/17 07/06/17 History [Vitamin D3] Ondansetron Odt [Zofran ODT] 4 mg PO Q8HR PRN 04/04/17 07/06/17 History traZODone HCL 50 mg PO HS 04/04/17 07/06/17 History Omeprazole [PriLOSEC] 40 mg PO BID #60 capsule. 05/16/17 07/06/17 Rx Thiamine [Vitamin B-1] 100 mg PO DAILY #30 tablet 05/16/17 07/06/17 Rx Nicotine 21Mg/24Hr Patch [Habitrol] 1 patch TRANSDERM DAILY #30 patch 05/25/17 07/06/17 Rx Allergies Allergy/AdvReac Type Severity Reaction Status Date / Time No Known Allergies Allergy Verified 07/06/17 06:44 Physical Exam Vitals: Vital Signs Temp Pulse Pulse Resp BP BP Pulse Ox 07/06/17 12:00 98.5 F 85 16 124/81 98 07/06/17 08:00 92 18 07/06/17 07:11 98.3 F 92 18 125/78 98 07/06/17 06:00 77 18 121/75 97 07/06/17 03:37 97.5 F L 91 16 115/75 100 Intake and Output 07/05/17 07/06/17 07/06/17 22:59 06:59 14:59 Other: Voiding Method Toilet # Voids 2 Weight 71.668 kg 66.5 kg Patient Weight 07/07/17 06:59 Weight 66.5 kg PHYSICAL EXAMINATION: Patient is lying in the bed comfortably, no acute distress, awake alert and oriented.. HEENT: Normocephalic. Neck is supple. Pupils reactive. Nostrils clear. Oral cavity is moist. Ears reveal no drainage. Neck reveals no JVD, carotid bruits, or thyromegaly. CHEST EXAMINATION: Trachea is central. Symmetrical expansion. Lung cowan clear to auscultation and percussion. CARDIAC: Normal S1, S2 with no gallops. No murmurs ABDOMEN: Soft. Mild epigastric tenderness. Bowel sounds normal. No organomegaly. No abdominal bruits. Extremities: reveal no edema. No clubbing or cyanosis Neurologically awake, alert, oriented x3 with well-coordinated movements. No focal deficits noted Skin: No rash or skin lesions. Psychiatric: Coperative. Nonsuicidal Musculoskeletal: No joint swelling or deformity. Normal range of motion. Results CBC & Chem 7: 07/06/17 04:00 07/06/17 04:00 Labs: Abnormal Lab Results - Last 24 Hours (Table) 07/06/17 07/06/17 07/06/17 Range/Units 04:00 04:00 04:00 Plt Count 524 H D (150-450) k/uL BUN 3 L (9-20) mg/dL Creatinine 0.60 L (0.66-1.25) mg/dL AST 16 L (17-59) U/L ALT 18 L (21-72) U/L Alkaline Phosphatase 145 H (38-126) U/L Total Creatine Kinase 46 L (55-170) U/L Albumin 3.4 L (3.5-5.0) g/dL 07/06/17 Range/Units 10:24 Plt Count (150-450) k/uL BUN (9-20) mg/dL Creatinine (0.66-1.25) mg/dL AST (17-59) U/L ALT (21-72) U/L Alkaline Phosphatase (38-126) U/L Total Creatine Kinase 194 H (55-170) U/L Albumin (3.5-5.0) g/dL Thrombosis Risk Factor Assmnt - DVT/VTE Prophylaxis DVT/VTE Prophylaxis: Pharmacologic Prophylaxis ordered - Choose All That Apply Any of the Below Risk Factors Present?: Yes Each Factor Represents 1 point: Age 41-60 years Other Risk Factors: No Other congenital or acquired thrombophilia - If yes, enter type in comment: No Thrombosis Risk Factor Assessment Total Risk Factor Score: 1 Thrombosis Risk Factor Assessment Level: Low Risk Assessment and Plan Assessment: Epigastric abdominal pain likely due to mild pancreatitis with pseudocyst in the pancreatic head. Lipase 203 Recent history of peritonitis Alcohol ABUSE. Last drink aday before admission GERD History of alcoholic HEPATITIS DVT prophylaxis Plan: Patient be continued on IV hydration and pain management with morphine. Patient be started on clear liquid diet and advance as tolerated. 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 No fever no chills. No elevated WBC. Liver enzymes are not elevated. We'll continue to monitor closely. Further recommendations based on the clinical course. Symptomatic management. Monitor for alcohol withdrawal symptoms Time with Patient: Greater than 30
[2017-07-06] MEDS ORDERED: LORazepam 0.5 MG TAB PO PRN (14:09)
[2017-07-06] MEDS: ACETAMINOPHEN TAB 325 MG TAB PO PRN (16:00)
[2017-07-06] MEDS: NICOTINE 21MG/24HR PATCH TRANSDERM SCH (16:09)
[2017-07-06 16:35] LABS: Creatine Kinase 214 U/L (55-170)
[2017-07-06 16:44] LABS: Troponin I <0.012 ng/mL (0.000-0.034)
[2017-07-06 19:39] VITALS: RESP 16
[2017-07-06] MEDS: SYMBICORT 80-4.5 MCG INHALER INHALATION SCH (20:16)
[2017-07-06] MEDS: ALBUTEROL NEBULIZED 2.5 MG/3 ML INHALATION PRN (20:16)
[2017-07-06] MEDS ORDERED: traZODone HCL 50 MG TAB PO SCH (21:00)
[2017-07-06] MEDS ORDERED: ATORVASTATIN 10 MG TAB PO SCH (21:00)
[2017-07-06] MEDS: METOCLOPRAMIDE 5 MG/ML 2 ML VIAL IVP PRN (22:42)
[2017-07-07] MEDS ORDERED: METOCLOPRAMIDE 5 MG/ML 2 ML VIAL IVP SCH
[2017-07-07 00:25] LABS: Cholesterol 123 mg/dL (<200); HDL Cholesterol 75 mg/dL (40-60); LDL Cholesterol,Calculated 32 mg/dL (0-99); Triglycerides 82 mg/dL (<150)
[2017-07-07] MEDS: MORPHINE SULFATE 4 MG/ML SYRINGE IVP PRN ×3 (02:00→10:14)
[2017-07-07] MEDS: NITROGLYCERIN OINT 1 INCH/GM PACKET TOPICAL SCH ×3 (03:04→14:08)
[2017-07-07] MEDS: SODIUM CHLORIDE 0.9% 1,000 ML IV SCH ×2 (06:36→14:05)
[2017-07-07] MEDS: SYMBICORT 80-4.5 MCG INHALER INHALATION SCH (07:16)
[2017-07-07] MEDS: ALBUTEROL NEBULIZED 2.5 MG/3 ML INHALATION PRN ×2 (07:16→11:05)
[2017-07-07 08:56] VITALS: TEMP 98.5
[2017-07-07] MEDS ORDERED: ASPIRIN 325 MG TAB PO SCH (09:00)
[2017-07-07] MEDS ORDERED: PANTOPRAZOLE 40 MG/10 ML VIAL IVP SCH (09:00)
[2017-07-07] MEDS ORDERED: TAMSULOSIN 0.4 MG CAP.ER.24H PO SCH (09:00)
[2017-07-07] MEDS: NICOTINE 21MG/24HR PATCH TRANSDERM SCH (09:14)
[2017-07-07] MEDS: ACETAMINOPHEN TAB 325 MG TAB PO PRN (09:14)
--- NOTE | 2017-07-07 09:59 | CONS ---
CONSULTATION REASON FOR CONSULTATION: Chest pain. Mr. Nestor Pro is a 46-year-old gentleman, a patient of Dr. Jones, who came into the hospital with complaints of abdominal discomfort. He had no chest discomfort when he arrived at the hospital. He has no chest discomfort at this time. He has had diagnosis of pancreatitis in the past. His pain is mostly in the epigastric area radiating to the back, and the pain has resolved. He wants to go home. He is asymptomatic. He does drink alcohol on a generous basis but has cut down. He smokes 1- 1/2 to 2 packs a day. He has no symptoms at the time of my evaluation. This patient had in 2015 a dobutamine echo and an echocardiogram, both of which were normal. PAST MEDICAL HISTORY: 1. Alcoholism. 2. Smoking and COPD. 3. Gastroesophageal reflux disease. 4. History of recurrent pancreatitis and alcoholic hepatitis. 5. Status post cholecystectomy, back surgery and orthopedic surgery. HOME MEDICATIONS: 1. Lipitor 10 mg daily. 2. Neurontin. 3. Flomax. 4. Some inhalers. 5. He takes multivitamins, including thiamine and folic acid. ALLERGIES: NONE. REVIEW OF SYSTEMS: Remarkable for exertional shortness of breath, wheezing. He has no hematemesis, melena, genitourinary symptoms, fever with chills or cough with expectoration. PHYSICAL EXAMINATION: Blood pressure is 128/70, pulse rate 70 per minute, regular. HEENT: Unremarkable. Fundus was not examined by me. NECK: Supple. There is no JVD. I do not hear a carotid bruit. Heart exam reveals S1, S2 heard normally. No significant murmur, rub or gallop is detected. Lungs reveal bilateral diminished air entry. ABDOMEN: Soft. There is mild epigastric tenderness. Bowel sounds are normal. Lower extremities reveal palpable pulses. No edema. Central nervous system is normal. EKG revealed a sinus mechanism within normal limits. Ultrasound of the abdomen raises the possibility of a pancreatic pseudocyst. LABORATORY DATA: Laboratory data suggest that the troponins are normal. IMPRESSION: 1. Abdominal discomfort, probably related to gastritis and/or underlying pancreatic cyst. 2. Patient does not have chest pain. His troponins and EKG are unremarkable. 3. Smoking and chronic obstructive pulmonary disease. 4. History of recurrent pancreatitis and alcoholic hepatitis in the past. RECOMMENDATIONS: Cardiac-don I am not recommending any intervention at this time. I will see the patient as needed. I advised the patient to see me after he is discharged from the hospital when he is more stable. He has been counseled regarding the need to quit smoking and alcohol. A repeat stress test can be performed as an outpatient, but at this time no intervention is necessary, and I will see the patient as needed. Thank you very much for the consult. PENNY / DIO: [id number] /
[2017-07-07] MEDS ORDERED: RX INFO: IV CONTRAST WAS GIVEN 1 EACH MISC MISCELLANE PRN (11:18)
[2017-07-07] MEDS ORDERED: FOLIC ACID 1 MG TAB PO SCH (12:00)
[2017-07-07] MEDS: METOCLOPRAMIDE 5 MG/ML 2 ML VIAL IVP PRN (12:01)
[2017-07-07 12:31] VITALS: BP 133/78; PULSE 94
--- NOTE | 2017-07-07 12:58 | CT ---
EXAMINATION TYPE: CT pancreas biphase DATE OF EXAM: 07/07/2017 REFERENCE: Previous CT scan of the abdomen dated 04/24/2017. HISTORY: eval for pseudocyst HISTORY: Upper Abdominal pain. Abnormal US per patient REFERENCE: NONE CT DLP: 413.2 mGy Automated exposure control for dose reduction was used. TECHNIQUE: Helical acquisition through the abdomen and pelvis was obtained following the oral ingesti on of and following intravenous administration of 100 mL of Omnipaque 300. The data was reformatted i n axial, coronal and sagittal projections. FINDINGS: There is a small amount of atelectasis at the right lung base with some associated pleural thickening or fluid. There is no pericardial fluid. The heart is not enlarged. There is a very small hiatal hernia. Within the abdomen, the gallbladder is been removed. Liver and spleen appear normal. Both adrenal glands appear normal. There is chronic left-sided hydronephrosis and hydroureter, unchanged from previous. The right kidney appears normal. Cystic changes in the head of the pancreas seen previously is not identified on today's examination. The pancreatic duct is mildly prominent measuring 5 mm. No pancreatic pseudocysts is identified. There is atheromatous calcification of the aorta. Large and small bowel loops appear normal. There has been a previous interpedicular fusion at L4, L5 and S1. No bony destructive lesion is seen. IMPRESSION: 1. NO PANCREATIC PSEUDOCYST IS SEEN AT THIS TIME. THE PANCREATIC DUCT IS MILDLY PROMINENT. 2. SMALL HIATAL HERNIA. 3. CHRONIC LEFT-SIDED HYDRONEPHROSIS AND HYDROURETER. 4. POSTSURGICAL CHANGE.
--- NOTE | 2017-07-07 13:33 | P.GSCN ---
History of Present Illness Consult date: 07/07/17 History of present illness: 46-year-old male presented to the emergency department complaining of epigastric pain. He is known to have a history of alcohol pancreatitis and has had this approximately 6 or 7 times in the past. He states that currently he feels discomfort in his epigastrium and no discomfort in his back. He complains of some nausea and no episodes of emesis. He denies any change in his bowel function. The patient was evaluated with a ultrasound of his abdomen with a suspected pseudocyst formation in the head of the pancreas. Secondary to this, surgical consult was placed. The patient does state that he has a history of a cholecystectomy. The patient has no additional complaints at this time. Review of Systems All systems: negative Past Medical History Past Medical History: GERD/Reflux, Hyperlipidemia, Pneumonia, Prostate Disorder Additional Past Medical History / Comment(s): ETOH ABUSE, RECURRANT PANCREATITIS , ALCOHOLIC HEPATITIS, NEPHROLITHIASIS, hx of CHRONIC URINARY RETENTION DUE TO BACK PROBLEMS-SELF CATHS.UTI. CHRONIC LOW BACK PAIN. History of Any Multi-Drug Resistant Organisms: None Reported Past Surgical History: Back Surgery, Cholecystectomy, Orthopedic Surgery Additional Past Surgical History / Comment(s): Bronchoscopy, BACK surgeries with TITANIUM PLATES MILTON and CAGES, KIDNEY STONES removed per pt, SPINAL CORD STIMULATOR, ISMAEL KNEE ARTHROSCOPIES, PINKY FINGER RT HAND REATTATCHED Past Anesthesia/Blood Transfusion Reactions: No Reported Reaction Smoking Status: Current every day smoker - Past Family History Father Family Medical History: Diabetes Mellitus Additional Family Medical History / Comment(s): Mother Family Medical History: Dementia, Hyperlipidemia, Hypertension Additional Family Medical History / Comment(s): Mother is living. Medications and Allergies Home Medications Medication Instructions Recorded Confirmed Type Folic Acid 1 mg PO DAILY #30 tablet 07/15/15 07/06/17 Rx Atorvastatin [Lipitor] 10 mg PO HS 09/27/15 07/06/17 History Gabapentin [Neurontin] 300 mg PO TID 12/18/16 07/06/17 History Tamsulosin HCl [Flomax] 0.4 mg PO DAILY 12/18/16 07/06/17 History LORazepam [Ativan] 0.5 mg PO TID PRN #30 tab 12/22/16 07/06/17 Rx traMADol HCL [Ultram] 50 mg PO Q6H PRN 02/22/17 07/06/17 History Albuterol Inhaler [Ventolin Hfa 2 puff INHALATION RT-Q4H PRN 03/01/17 07/06/17 History Inhaler] Multivitamins, Thera [Multivitamin 1 tab PO DAILY 03/01/17 07/06/17 History (formulary)] Budesonide/Formoterol Fumarate 1 puff INHALATION RT-BID 04/04/17 07/06/17 History [Symbicort 80-4.5 Mcg Inhaler] Cholecalciferol (Vitamin D3) 2,000 unit PO DAILY 04/04/17 07/06/17 History [Vitamin D3] Ondansetron Odt [Zofran ODT] 4 mg PO Q8HR PRN 04/04/17 07/06/17 History traZODone HCL 50 mg PO HS 04/04/17 07/06/17 History Omeprazole [PriLOSEC] 40 mg PO BID #60 capsule. 05/16/17 07/06/17 Rx Thiamine [Vitamin B-1] 100 mg PO DAILY #30 tablet 05/16/17 07/06/17 Rx Nicotine 21Mg/24Hr Patch [Habitrol] 1 patch TRANSDERM DAILY #30 patch 05/25/17 07/06/17 Rx Allergies Allergy/AdvReac Type Severity Reaction Status Date / Time No Known Allergies Allergy Verified 07/06/17 06:44 Surgical - Exam Osteopathic Statement: *. No significant issues noted on an osteopathic structural exam other than those noted in the History and Physical/Consult. Vital Signs Temp Pulse Resp BP Pulse Ox 97.5 F L 91 16 115/75 100 07/06/17 03:37 07/06/17 03:37 07/06/17 03:37 07/06/17 03:37 07/06/17 03:37 - General well nourished, no distress - Eyes PERRL, normal ocular movement - ENT normal mucosa, no hearing loss - Neck no masses, no bruits, trachea midline - Respiratory No difficulty with respiration - Abdomen Soft, mild tenderness in the epigastrium, nondistended, no rebound, no guarding - Neurologic normal sensation - Psychiatric oriented to time, oriented to person, oriented to place, speech is normal, memory intact Results - Labs 07/06/17 04:00 07/06/17 04:00 Abnormal Lab Results - Last 24 Hours (Table) 07/06/17 07/06/17 Range/Units 06:33 15:50 Total Creatine Kinase 214 H (55-170) U/L HDL Cholesterol 75 H (40-60) mg/dL Diabetes panel 07/06/17 Range/Units 06:33 Triglycerides 82 (<150) mg/dL HDL Cholesterol 75 H (40-60) mg/dL - Imaging US - abdomen: report reviewed, image reviewed Assessment and Plan (1) Acute on chronic pancreatitis Current Visit: No Status: Acute Code(s): K85.90 - ACUTE PANCREATITIS WITHOUT NECROSIS OR INFECTION, UNSP; K86.1 - OTHER CHRONIC PANCREATITIS SNOMED Code(s): 552740845 Plan: 46-year-old male with history of alcoholic pancreatitis, possible pseudocyst #1 we'll plan for further evaluation of pseudocyst by obtaining a pancreatic protocol CT #2 okay to begin a diet #3 I did discuss alcohol cessation with the patient #[address] is obtained
[2017-07-07] MEDS: MULTIVITAMINS, THERA 1 EACH TAB PO SCH (14:00)
[2017-07-07] MEDS: THIAMINE 100 MG TAB PO SCH (14:00)
--- NOTE | 2017-07-20 22:56 | P.DS ---
Providers Date of admission: 07/06/17 06:18 Expected date of discharge: 07/07/17 Attending physician: Jamel Diallo Consults: 07/07/17 06:20 Consult Physician Routine Consulting Provider: [facility] Consult Reason/Comments: chest pain Do you want consulting provider notified?: Yes, Notify in am 07/07/17 09:25 Consult Physician Routine Consulting Provider: Sophy Hendricks Consult Reason/Comments: abdominal pain Do you want consulting provider notified?: Already Contacted Primary care physician: Jessa Delaney [facility] Hospital Course: Discharge diagnosis Epigastric abdominal pain likely due to mild pancreatitis with pseudocyst in the pancreatic head. But CT abdomen showed no pseudocyst. Lipase was 203 Recent history of pancreatitis Alcohol ABUSE. Last drink aday before admission GERD History of alcoholic HEPATITIS DVT prophylaxis Hospital course Patient is a 46-year-old male with a known history of GERD, EtOH abuse and recent pancreatitis came to ER with complaints of abdominal discomfort. Onset of symptoms was a couple hours ago. Patient has had similar symptoms approximately 6 or 7 times previously associated with pancreatitis. Patient does have a history of alcohol use and did drink 1 glass of wine yesterday. Patient states discomfort does travel towards the back and chest which is normal with his pancreatitis. Patient does have some nausea. No fevers. Discomfort is mostly in the epigastric region. No fever no chills. Ultrasound of the abdomen showed possible pancreatic head pseudocyst. Unlikely emergency. Lipase 203 CT of the abdomen showed no evidence of pseudocyst appreciated general surgery recommendations. Patient was continued on IV hydration and pain management with morphine. Patient be started on clear liquid diet and advance as tolerated. No fever no chills. No elevated WBC. Liver enzymes are not elevated. Symptomatic management. Monitored for alcohol withdrawal symptoms. Currently patient is tolerating oral diet and abdominal pain resolved. Patient was counseled extensively for alcohol abuse. Otherwise patient is stable to be discharged home. Discharge physical examination PHYSICAL EXAMINATION: Patient is lying in the bed comfortably, no acute distress, awake alert and oriented.. HEENT: Normocephalic. Neck is supple. Pupils reactive. Nostrils clear. Oral cavity is moist. Ears reveal no drainage. Neck reveals no JVD, carotid bruits, or thyromegaly. CHEST EXAMINATION: Trachea is central. Symmetrical expansion. Lung cowan clear to auscultation and percussion. CARDIAC: Normal S1, S2 with no gallops. No murmurs ABDOMEN: Soft. Bowel sounds normal. No organomegaly. No abdominal bruits. Extremities: reveal no edema. No clubbing or cyanosis Neurologically awake, alert, oriented x3 with well-coordinated movements. No focal deficits noted Skin: No rash or skin lesions. Psychiatric: Coperative. Nonsuicidal Musculoskeletal: No joint swelling or deformity. Normal range of motion. Patient Condition at Discharge: Fair Plan - Discharge Summary Discharge Rx Participant: No New Discharge Prescriptions: Continue Folic Acid 1 mg PO DAILY #30 tablet Atorvastatin [Lipitor] 10 mg PO HS Tamsulosin HCl [Flomax] 0.4 mg PO DAILY LORazepam [Ativan] 0.5 mg PO TID PRN #30 tab PRN Reason: Anxiety traMADol HCL [Ultram] 50 mg PO Q6H PRN PRN Reason: Pain Multivitamins, Thera [Multivitamin (formulary)] 1 tab PO DAILY Albuterol Inhaler [Ventolin Hfa Inhaler] 2 puff INHALATION RT-Q4H PRN PRN Reason: Shortness Of Breath traZODone HCL 50 mg PO HS Budesonide/Formoterol Fumarate [Symbicort 80-4.5 Mcg Inhaler] 1 puff INHALATION RT-BID Cholecalciferol (Vitamin D3) [Vitamin D3] 2,000 unit PO DAILY Omeprazole [PriLOSEC] 40 mg PO BID #60 capsule. Thiamine [Vitamin B-1] 100 mg PO DAILY #30 tablet No Action Gabapentin [Neurontin] 400 mg PO TID chlordiazePOXIDE HCl [Librium] 25 - 50 mg PO DIRECTED DULoxetine HCL [Cymbalta] 60 mg PO DAILY Acetaminophen-Codeine 300-30mg [Tylenol #3] 1 tab PO Q4H PRN #14 tablet PRN Reason: pain Ondansetron Odt [Zofran Odt] 4 mg PO Q8HR PRN #10 tab PRN Reason: Nausea Ondansetron Odt [Zofran ODT] 4 mg PO Q8HR PRN #20 tab PRN Reason: Nausea Discharge Medication List Folic Acid 1 mg PO DAILY #30 tablet 07/15/15 [Rx] Atorvastatin [Lipitor] 10 mg PO HS 09/27/15 [History] Tamsulosin HCl [Flomax] 0.4 mg PO DAILY 07/31/17 [History] LORazepam [Ativan] 0.5 mg PO TID PRN #30 tab 12/22/16 [Rx] traMADol HCL [Ultram] 50 mg PO Q6H PRN 02/22/17 [History] Albuterol Inhaler [Ventolin Hfa Inhaler] 2 puff INHALATION RT-Q4H PRN 03/01/17 [ History] Multivitamins, Thera [Multivitamin (formulary)] 1 tab PO DAILY 03/01/17 [History ] Budesonide/Formoterol Fumarate [Symbicort 80-4.5 Mcg Inhaler] 1 puff INHALATION RT-BID 04/04/17 [History] Cholecalciferol (Vitamin D3) [Vitamin D3] 2,000 unit PO DAILY 04/04/17 [History] traZODone HCL 50 mg PO HS 04/04/17 [History] Omeprazole [PriLOSEC] 40 mg PO BID #60 capsule.dr 05/16/17 [Rx] Thiamine [Vitamin B-1] 100 mg PO DAILY #30 tablet 05/16/17 [Rx] Acetaminophen-Codeine 300-30mg [Tylenol #3] 1 tab PO Q4H PRN #14 tablet [Rx] DULoxetine HCL [Cymbalta] 60 mg PO DAILY 07/18/17 [History] Gabapentin [Neurontin] 400 mg PO TID 07/18/17 [History] Ondansetron Odt [Zofran Odt] 4 mg PO Q8HR PRN #10 tab 07/18/17 [Rx] chlordiazePOXIDE HCl [Librium] 25 - 50 mg PO DIRECTED 07/18/17 [History] Ondansetron Odt [Zofran ODT] 4 mg PO Q8HR PRN #20 tab 07/20/17 [Rx] Follow up Appointment(s)/Referral(s): Little Almodovar MD [STAFF PHYSICIAN] - 2 Weeks Jessa Jones III, MD [Primary Care Provider] - 1-2 days Patient Instructions/Handouts: Chest Pain (DC) Discharge Disposition: HOME SELF-CARE
== END 2017-07-07 15:51 | disposition home or self-care (01) ==
LOC: EC 03:36 → 3OBS 06:18
PROVIDERS: ADMIT Internal Medicine; ATTEND Internal Medicine
DX: R10.13 Epigastric pain (principal); K70.10 Alcoholic hepatitis without ascites; K21.9 Gastro-esophageal reflux disease without esophagitis; F10.20 Alcohol dependence, uncomplicated; R07.9 Chest pain, unspecified; J44.9 Chronic obstructive pulmonary disease, unspecified; F17.210 Nicotine dependence, cigarettes, uncomplicated; E78.5 Hyperlipidemia, unspecified; N42.9 Disorder of prostate, unspecified; M54.5 Low back pain; F41.9 Anxiety disorder, unspecified; F32.9 Major depressive disorder, single episode, unspecified; G89.29 Other chronic pain; Z79.51 Long term (current) use of inhaled steroids; Z79.899 Other long term (current) drug therapy; Z87.442 Personal history of urinary calculi; Z96.9 Presence of functional implant, unspecified; Z90.49 Acquired absence of other specified parts of digestive tract; Z87.440 Personal history of urinary (tract) infections; Z83.3 Family history of diabetes mellitus; Z82.49 Family history of ischemic heart disease and other diseases of the circulatory system; Z81.8 Family history of other mental and behavioral disorders
CPT/HCPCS: 99285 ×2; 96374 ×2; 96375 ×3; 96372 ×2; 96361 ×4; 96376 ×2; 36415; 94640 ×4; 93005; 80061; 80053; 82150; 82550; 82553; 83690; 84484; 85025; 85610; 85730; 81003; 80320; 71045; 74018; 76705; 74160; G0378 ×2; S4990 ×2; J2270 ×2; J0500; J2765 ×2; Q9967; C9113 ×2

== ENCOUNTER 2017-07-09 12:14 | Emergency (ER) | payer MEDICARE, OTHER ==
[2017-07-09 12:32] VITALS: TEMP 99.1
[2017-07-09 12:55] LABS: Basophils % (A) 0 %; Eosinophils # (A) 0.1 k/uL (0-0.7); Eosinophils % (A) 1 %; HCT 45.7 % (39.0-53.0); HGB 14.6 gm/dL (13.0-17.5); Lymphocytes # (A) 1.4 k/uL (1.0-4.8); Lymphocytes % (A) 10 %; MCH 32.2 pg (25.0-35.0); MCV 100.6 fL (80.0-100.0); Mean Platelet Volume 6.9; Monocytes # (A) 0.8 k/uL (0-1.0); Monocytes % (A) 6 %; Neutrophils # (A) 12.6 k/uL (1.3-7.7); Neutrophils % (A) 83 %; Platelet Count 529 k/uL (150-450); RBC 4.54 m/uL (4.30-5.90); RDW 13.6 % (11.5-15.5); WBC 15.1 k/uL (3.8-10.6)
[2017-07-09 13:05] LABS: ALT 29 U/L (21-72); AST 29 U/L (17-59); Albumin 3.6 g/dL (3.5-5.0); Alkaline Phosphatase 237 U/L (38-126); Amylase 40 U/L (30-110); Anion Gap 8 mmol/L; Blood Urea Nitrogen 5 mg/dL (9-20); Calcium 9.2 mg/dL (8.4-10.2); Carbon Dioxide 26 mmol/L (22-30); Chloride 100 mmol/L (98-107); Glucose 103 mg/dL (74-99); Lipase 77 U/L (23-300); Potassium 4.3 mmol/L (3.5-5.1); Sodium 134 mmol/L (137-145); Total Bilirubin 0.4 mg/dL (0.2-1.3); Total Protein 6.9 g/dL (6.3-8.2)
[2017-07-09] MEDS ORDERED: ONDANSETRON 4 MG/2 ML VIAL IVP STA ×2 (13:20→14:23)
[2017-07-09] MEDS ORDERED: HYDROmorphone 0.5 MG/0.5 ML SYRINGE IVP STA (13:20)
[2017-07-09] MEDS ORDERED: SODIUM CHLORIDE 0.9% 1,000 ML IV STA ×2 (13:20)
--- NOTE | 2017-07-09 13:45 | ED ---
General Adult HPI - General Chief complaint: Abdominal Pain Stated complaint: Abd Pain, Chest Pain Time Seen by Provider: 07/09/17 13:11 Source: patient, RN notes reviewed Mode of arrival: ambulatory Limitations: no limitations - History of Present Illness Initial comments: Patient is a 46-year-old male with a significant past medical history for pancreatitis, who presents emergency room today with a chief complaint of increased pain in the left upper quadrant. He admits that he did have a drink last night it was his daughter's 21[age] first birthday. He knowns that he should not have done this. He does admit that he had some increased nausea vomiting that started at 2 AM. He states he did some blood at the time and the emesis. He does admit that he feels some pain radiate up into the chest area which again he states that he has had in the past with pancreatitis. He denies any other points associated symptoms. Patient denies any recent fever, chills, shortness of breath, numbness or tingling, dysuria or hematuria, constipation or diarrhea, headaches or visual changes, or any other complaints. - Related Data Home Medications Medication Instructions Recorded Confirmed Atorvastatin [Lipitor] 10 mg PO HS 09/27/15 07/09/17 Gabapentin [Neurontin] 300 mg PO TID 12/18/16 07/09/17 Tamsulosin HCl [Flomax] 0.4 mg PO DAILY 12/18/16 07/09/17 traMADol HCL [Ultram] 50 mg PO Q6H PRN 02/22/17 07/09/17 Albuterol Inhaler [Ventolin Hfa 2 puff INHALATION RT-Q4H PRN 03/01/17 07/09/17 Inhaler] Multivitamins, Thera [Multivitamin 1 tab PO DAILY 03/01/17 07/09/17 (formulary)] Budesonide/Formoterol Fumarate 1 puff INHALATION RT-BID 04/04/17 07/09/17 [Symbicort 80-4.5 Mcg Inhaler] Cholecalciferol (Vitamin D3) 2,000 unit PO DAILY 04/04/17 07/09/17 [Vitamin D3] Ondansetron Odt [Zofran ODT] 4 mg PO Q8HR PRN 04/04/17 07/09/17 traZODone HCL 50 mg PO HS 04/04/17 07/09/17 Previous Rx's Medication Instructions Recorded Folic Acid 1 mg PO DAILY #30 tablet 07/15/15 LORazepam [Ativan] 0.5 mg PO TID PRN #30 tab 12/22/16 Omeprazole [PriLOSEC] 40 mg PO BID #60 capsule. 05/16/17 Thiamine [Vitamin B-1] 100 mg PO DAILY #30 tablet 05/16/17 Nicotine 21Mg/24Hr Patch [Habitrol] 1 patch TRANSDERM DAILY #30 patch 05/25/17 chlordiazePOXIDE HCl [Librium] 25 mg PO DIRECTED #22 capsule 07/09/17 traMADol HCl [Ultram] 50 mg PO Q6H PRN #15 tab 07/09/17 Allergies Allergy/AdvReac Type Severity Reaction Status Date / Time No Known Allergies Allergy Verified 07/09/17 13:30 Review of Systems ROS Statement: Those systems with pertinent positive or pertinent negative responses have been documented in the HPI. ROS Other: All systems not noted in ROS Statement are negative. Past Medical History Past Medical History: GERD/Reflux, Hyperlipidemia, Pneumonia, Prostate Disorder Additional Past Medical History / Comment(s): ETOH ABUSE, RECURRANT PANCREATITIS , ALCOHOLIC HEPATITIS, NEPHROLITHIASIS, hx of CHRONIC URINARY RETENTION DUE TO BACK PROBLEMS-SELF CATHS.UTI. CHRONIC LOW BACK PAIN. History of Any Multi-Drug Resistant Organisms: None Reported Past Surgical History: Back Surgery, Cholecystectomy, Orthopedic Surgery Additional Past Surgical History / Comment(s): Bronchoscopy, BACK surgeries with TITANIUM PLATES MILTON and CAGES, KIDNEY STONES removed per pt, SPINAL CORD STIMULATOR, ISMAEL KNEE ARTHROSCOPIES, PINKY FINGER RT HAND REATTATCHED Past Anesthesia/Blood Transfusion Reactions: No Reported Reaction Past Psychological History: Anxiety, Depression Smoking Status: Current every day smoker Past Alcohol Use History: Occasional Past Drug Use History: None Reported - Past Family History Father Family Medical History: Diabetes Mellitus Additional Family Medical History / Comment(s): Mother Family Medical History: Dementia, Hyperlipidemia, Hypertension Additional Family Medical History / Comment(s): Mother is living. General Exam - General Exam Comments Initial Comments: General: The patient is awake and alert, in no distress, and does not appear acutely ill. Eye: Pupils are equal, round and reactive to light, extra-ocular movements are intact. No nystagmus. There is normal conjunctiva bilaterally. No signs of icterus. Ears, nose, mouth and throat: There are moist mucous membranes and no oral lesions. Neck: The neck is supple, there is no tenderness or JVD. Cardiovascular: There is a regular rate and rhythm. No murmur, rub or gallop is appreciated. Respiratory: Lungs are clear to auscultation, respirations are non-labored, breath sounds are equal. No wheezes, stridor, rales, or rhonchi. Musculoskeletal: Normal ROM, no tenderness. Strength 5/5. Sensation intact. Pulses equal bilaterally 2+. Neurological: A&O x 3. CN II-XII intact, There are no obvious motor or sensory deficits. Coordination appears grossly intact. Speech is normal. Skin: Skin is warm and dry and no rashes or lesions are noted. Psychiatric: Cooperative, appropriate mood & affect, normal judgment. Limitations: no limitations Course Vital Signs 07/09/17 07/09/17 12:29 14:32 Temperature 99.1 F Pulse Rate 110 H 97 Respiratory 18 18 Rate Blood Pressure 107/72 125/78 O2 Sat by Pulse 99 98 Oximetry Medical Decision Making - Medical Decision Making Patient's labs been reviewed. Patient was recently discharged from the hospital had a recent CT of the abdomen showing a pseudocyst in the pancreas. No other abnormality. Results were discussed with the patient. Patient doing well at this time. He is worried about withdrawal type symptoms from alcohol. Given Ativan here the emergency room. Feeling better will be discharged home with tramadol for pain as he states he is running out along with Librium for any withdrawals. - Lab Data Result diagrams: 07/09/17 12:39 07/09/17 12:39 Lab Results 07/09/17 07/09/17 07/09/17 Range/Units 12:39 12:39 12:39 WBC 15.1 H (3.8-10.6) k/uL RBC 4.54 (4.30-5.90) m/uL Hgb 14.6 (13.0-17.5) gm/dL Hct 45.7 (39.0-53.0) % MCV 100.6 H (80.0-100.0) fL MCH 32.2 (25.0-35.0) pg MCHC 32.0 (31.0-37.0) g/dL RDW 13.6 (11.5-15.5) % Plt Count 529 H (150-450) k/uL Neutrophils % 83 % Lymphocytes % 10 % Monocytes % 6 % Eosinophils % 1 % Basophils % 0 % Neutrophils # 12.6 H (1.3-7.7) k/uL Lymphocytes # 1.4 (1.0-4.8) k/uL Monocytes # 0.8 (0-1.0) k/uL Eosinophils # 0.1 (0-0.7) k/uL Basophils # 0.0 (0-0.2) k/uL PT (9.0-12.0) sec INR (<1.2) APTT (22.0-30.0) sec Sodium 134 L (137-145) mmol/L Potassium 4.3 (3.5-5.1) mmol/L Chloride 100 (98-107) mmol/L Carbon Dioxide 26 (22-30) mmol/L Anion Gap 8 mmol/L BUN 5 L (9-20) mg/dL Creatinine 0.80 (0.66-1.25) mg/dL Est GFR (MDRD) Af Amer >60 (>60 ml/min/1.73 sqM) Est GFR (MDRD) Non-Af >60 (>60 ml/min/1.73 sqM) Glucose 103 H (74-99) mg/dL Calcium 9.2 (8.4-10.2) mg/dL Total Bilirubin 0.4 (0.2-1.3) mg/dL AST 29 (17-59) U/L ALT 29 (21-72) U/L Alkaline Phosphatase 237 H (38-126) U/L Total Creatine Kinase 189 H (55-170) U/L CK-MB (CK-2) 0.7 (0.0-2.4) ng/mL CK-MB (CK-2) Rel Index 0.4 Troponin I <0.012 (0.000-0.034) ng/mL Total Protein 6.9 (6.3-8.2) g/dL Albumin 3.6 (3.5-5.0) g/dL Amylase 40 (30-110) U/L Lipase 77 (23-300) U/L 07/09/17 Range/Units 12:39 WBC (3.8-10.6) k/uL RBC (4.30-5.90) m/uL Hgb (13.0-17.5) gm/dL Hct (39.0-53.0) % MCV (80.0-100.0) fL MCH (25.0-35.0) pg MCHC (31.0-37.0) g/dL RDW (11.5-15.5) % Plt Count (150-450) k/uL Neutrophils % % Lymphocytes % % Monocytes % % Eosinophils % % Basophils % % Neutrophils # (1.3-7.7) k/uL Lymphocytes # (1.0-4.8) k/uL Monocytes # (0-1.0) k/uL Eosinophils # (0-0.7) k/uL Basophils # (0-0.2) k/uL PT 9.8 (9.0-12.0) sec INR 1.0 (<1.2) APTT 25.3 (22.0-30.0) sec Sodium (137-145) mmol/L Potassium (3.5-5.1) mmol/L Chloride (98-107) mmol/L Carbon Dioxide (22-30) mmol/L Anion Gap mmol/L BUN (9-20) mg/dL Creatinine (0.66-1.25) mg/dL Est GFR (MDRD) Af Amer (>60 ml/min/1.73 sqM) Est GFR (MDRD) Non-Af (>60 ml/min/1.73 sqM) Glucose (74-99) mg/dL Calcium (8.4-10.2) mg/dL Total Bilirubin (0.2-1.3) mg/dL AST (17-59) U/L ALT (21-72) U/L Alkaline Phosphatase (38-126) U/L Total Creatine Kinase (55-170) U/L CK-MB (CK-2) (0.0-2.4) ng/mL CK-MB (CK-2) Rel Index Troponin I (0.000-0.034) ng/mL Total Protein (6.3-8.2) g/dL Albumin (3.5-5.0) g/dL Amylase (30-110) U/L Lipase (23-300) U/L Disposition Clinical Impression: Alcohol abuse, History of pancreatitis Disposition: HOME SELF-CARE Condition: Stable Instructions: Abuse of Alcohol (ED) Additional Instructions: Please use medication as discussed. Please follow-up with family doctor in the next 2 days of symptoms have not improved. Please return to emergency room if the symptoms increase or worsen or for any other concerns. Prescriptions: chlordiazePOXIDE HCl [Librium] 25 mg PO DIRECTED #22 capsule traMADol HCl [Ultram] 50 mg PO Q6H PRN #15 tab PRN Reason: Pain Referrals: Jessa Jones III, MD [Primary Care Provider] - 1-2 days Time of Disposition: 15:12
[2017-07-09 13:47] LABS: Partial Thromboplastin Time 25.3 sec (22.0-30.0); Prothrombin Time 9.8 sec (9.0-12.0)
[2017-07-09 13:48] LABS: Creatine Kinase 189 U/L (55-170)
[2017-07-09 14:01] LABS: Creatine Kinase MB 0.7 ng/mL (0.0-2.4); Troponin I <0.012 ng/mL (0.000-0.034)
--- NOTE | 2017-07-09 14:02 | XR ---
EXAMINATION TYPE: XR chest 2V DATE OF EXAM: 07/09/2017 COMPARISON: 07/06/2017 TECHNIQUE: PA and lateral views submitted. HISTORY: Pain FINDINGS: The lungs are clear and there is no pneumothorax, pleural effusion, or focal pneumonia. Stimulator device overlying breast. IMPRESSION: 1. No acute process.
--- NOTE | 2017-07-09 14:04 | XR ---
EXAMINATION TYPE: XR KUB DATE OF EXAM: 07/09/2017 COMPARISON: NONE HISTORY: Dilip TECHNIQUE: One view abdominal series FINDINGS: The osseous structures are intact. The bowel gas pattern is nonspecific. Postsurgical changes are no tulio. Stimulator device overlying the vertebral column. Scattered air-fluid levels are seen. Diffuse o steopenia noted. Arthropathy of the hips.. IMPRESSION: 1. Nonspecific abdomen. Scattered air-fluid levels and prominent small bowel loops are seen with ent eritis or ileus. Partial obstruction not excluded.
[2017-07-09] MEDS ORDERED: MORPHINE SULFATE 4 MG/ML SYRINGE IV STA (14:23)
[2017-07-09] MEDS ORDERED: LORazepam 2 MG/ML INJ IV STA (15:06)
[2017-07-09 15:46] VITALS: BP 128/85; PULSE 92; RESP 16
== END 2017-07-09 15:46 | disposition home or self-care (01) ==
LOC: EC 12:14
DX: F10.10 Alcohol abuse, uncomplicated (principal); E78.5 Hyperlipidemia, unspecified; F32.9 Major depressive disorder, single episode, unspecified; F41.9 Anxiety disorder, unspecified; F17.200 Nicotine dependence, unspecified, uncomplicated; Z90.49 Acquired absence of other specified parts of digestive tract; Z87.19 Personal history of other diseases of the digestive system; Z79.51 Long term (current) use of inhaled steroids; Z79.899 Other long term (current) drug therapy
CPT/HCPCS: 36415; 93005; 80053; 82150; 82550; 82553; 83690; 84484; 85025; 85610; 85730; 71046; 74018; 99284; 96374; 96375 ×3; 96376; 96361 ×2; J2060; J2270; J2405; J1170

== ENCOUNTER 2017-07-18 12:20 | Emergency (ER) | payer MEDICARE, OTHER ==
[2017-07-18 12:25] VITALS: TEMP 97.9
[2017-07-18] MEDS ORDERED: SODIUM CHLORIDE 0.9% 1,000 ML IV STA (12:26)
[2017-07-18] MEDS ORDERED: KETOROLAC 30 MG/ML 1 ML VIAL IVP STA (12:58)
[2017-07-18] MEDS ORDERED: SODIUM CHLORIDE 0.9% 1,000 ML IV ONE (12:58)
[2017-07-18] MEDS ORDERED: ONDANSETRON 4 MG/2 ML VIAL IVP STA ×2 (12:58→15:00)
[2017-07-18 13:02] LABS: Basophils % (A) 0 %; Eosinophils % (A) 0 %; HCT 42.2 % (39.0-53.0); HGB 13.8 gm/dL (13.0-17.5); Lymphocytes % (A) 7 %; MCH 32.2 pg (25.0-35.0); MCHC 32.7 g/dL (31.0-37.0); MCV 98.3 fL (80.0-100.0); Mean Platelet Volume 7.7; Monocytes # (A) 0.7 k/uL (0-1.0); Monocytes % (A) 4 %; Neutrophils % (A) 88 %; Platelet Count 373 k/uL (150-450); RDW 13.5 % (11.5-15.5); WBC 15.8 k/uL (3.8-10.6)
[2017-07-18 13:10] LABS: ALT 18 U/L (21-72); AST 16 U/L (17-59); Albumin 3.1 g/dL (3.5-5.0); Alkaline Phosphatase 177 U/L (38-126); Amylase 50 U/L (30-110); Anion Gap 8 mmol/L; Blood Urea Nitrogen 9 mg/dL (9-20); Calcium 9.4 mg/dL (8.4-10.2); Carbon Dioxide 27 mmol/L (22-30); Chloride 106 mmol/L (98-107); Glucose 111 mg/dL (74-99); Lipase 505 U/L (23-300); Potassium 4.5 mmol/L (3.5-5.1); Sodium 141 mmol/L (137-145); Total Bilirubin 0.3 mg/dL (0.2-1.3); Total Protein 6.3 g/dL (6.3-8.2)
[2017-07-18 13:22] VITALS: PULSE 78
[2017-07-18] MEDS ORDERED: MORPHINE SULFATE 4 MG/ML SYRINGE IVP STA (14:14)
--- NOTE | 2017-07-18 14:17 | ED ---
Abdominal Pain HPI - General Chief Complaint: Abdominal Pain Stated Complaint: Abd Pain Time Seen by Provider: 07/18/17 12:26 Source: patient, RN notes reviewed Mode of arrival: wheelchair Limitations: no limitations - History of Present Illness Initial Comments: 46-year-old male presents emergency Department chief complaint of midabdominal discomfort. Patient has a history of pancreatitis and pain seems very similar nature. Patient does admit to drinking a glass of wine last night. Patient states that he is not drinking as much as he used to. Denies any vomiting states that he nauseated. Denies any diarrhea, Nona patient, dysuria, hematuria. He has no current chest pain or shortness of breath. Patient had multiple recent visits for similar complaints. Patient states he did have a recent admission. Patient states that he not take anything for the pain prior arrival. He has normal drug ALLERGIES. - Related Data Home Medications Medication Instructions Recorded Confirmed Atorvastatin [Lipitor] 10 mg PO HS 09/27/15 07/18/17 Tamsulosin HCl [Flomax] 0.4 mg PO DAILY 12/18/16 07/18/17 traMADol HCL [Ultram] 50 mg PO Q6H PRN 02/22/17 07/18/17 Albuterol Inhaler [Ventolin Hfa 2 puff INHALATION RT-Q4H PRN 03/01/17 07/18/17 Inhaler] Multivitamins, Thera [Multivitamin 1 tab PO DAILY 03/01/17 07/18/17 (formulary)] Budesonide/Formoterol Fumarate 1 puff INHALATION RT-BID 04/04/17 07/18/17 [Symbicort 80-4.5 Mcg Inhaler] Cholecalciferol (Vitamin D3) 2,000 unit PO DAILY 04/04/17 07/18/17 [Vitamin D3] Ondansetron Odt [Zofran ODT] 4 mg PO Q8HR PRN 04/04/17 07/18/17 traZODone HCL 50 mg PO HS 04/04/17 07/18/17 DULoxetine HCL [Cymbalta] 60 mg PO DAILY 07/18/17 07/18/17 Gabapentin [Neurontin] 400 mg PO TID 07/18/17 07/18/17 chlordiazePOXIDE HCl [Librium] 25 - 50 mg PO DIRECTED 07/18/17 07/18/17 Previous Rx's Medication Instructions Recorded Folic Acid 1 mg PO DAILY #30 tablet 07/15/15 LORazepam [Ativan] 0.5 mg PO TID PRN #30 tab 12/22/16 Omeprazole [PriLOSEC] 40 mg PO BID #60 capsule. 05/16/17 Thiamine [Vitamin B-1] 100 mg PO DAILY #30 tablet 05/16/17 Nicotine 21Mg/24Hr Patch [Habitrol] 1 patch TRANSDERM DAILY #30 patch 05/25/17 Acetaminophen-Codeine 300-30mg 1 tab PO Q4H PRN #14 tablet 07/18/17 [Tylenol #3] Ondansetron Odt [Zofran Odt] 4 mg PO Q8HR PRN #10 tab 07/18/17 Allergies Allergy/AdvReac Type Severity Reaction Status Date / Time No Known Allergies Allergy Verified 07/18/17 12:49 Review of Systems ROS Statement: Those systems with pertinent positive or pertinent negative responses have been documented in the HPI. ROS Other: All systems not noted in ROS Statement are negative. Past Medical History Past Medical History: GERD/Reflux, Hyperlipidemia, Pneumonia, Prostate Disorder Additional Past Medical History / Comment(s): ETOH ABUSE, RECURRANT PANCREATITIS , ALCOHOLIC HEPATITIS, NEPHROLITHIASIS, hx of CHRONIC URINARY RETENTION DUE TO BACK PROBLEMS-SELF CATHS.UTI. CHRONIC LOW BACK PAIN. History of Any Multi-Drug Resistant Organisms: None Reported Past Surgical History: Back Surgery, Cholecystectomy, Orthopedic Surgery Additional Past Surgical History / Comment(s): Bronchoscopy, BACK surgeries with TITANIUM PLATES MILTON and CAGES, KIDNEY STONES removed per pt, SPINAL CORD STIMULATOR, ISMAEL KNEE ARTHROSCOPIES, PINKY FINGER RT HAND REATTATCHED Past Anesthesia/Blood Transfusion Reactions: No Reported Reaction Past Psychological History: Anxiety, Depression Smoking Status: Current every day smoker Past Alcohol Use History: Occasional Past Drug Use History: None Reported - Past Family History Father Family Medical History: Diabetes Mellitus Additional Family Medical History / Comment(s): Mother Family Medical History: Dementia, Hyperlipidemia, Hypertension Additional Family Medical History / Comment(s): Mother is living. General Exam Limitations: no limitations General appearance: alert, in no apparent distress Head exam: Present: atraumatic, normocephalic, normal inspection Respiratory exam: Present: normal lung sounds bilaterally. Absent: respiratory distress, wheezes, rales, rhonchi, stridor Cardiovascular Exam: Present: regular rate, normal rhythm, normal heart sounds. Absent: systolic murmur, diastolic murmur, rubs, gallop, clicks GI/Abdominal exam: Present: soft, tenderness (Tenderness in mid abdomen), normal bowel sounds. Absent: distended, guarding, rebound, rigid Back exam: Absent: CVA tenderness (R), CVA tenderness (L) Course Vital Signs 07/18/17 07/18/17 12:22 13:21 Temperature 97.9 F Pulse Rate 106 H 78 Respiratory 18 19 Rate Blood Pressure 121/85 165/99 O2 Sat by Pulse 100 96 Oximetry Medical Decision Making - Medical Decision Making 46-year-old male presented for abdominal discomfort. Patient lab work reviewed does have mild leukocytosis of this is evident on prior. The patient's vitals are stable. Patient's lipase is 5-5 which is not significantly elevated for the patient. Patient will be discharged at this time with follow-up with PCP who be discharged with Suhaan. Patient also advised to start clear liquid diet and progress as tolerated. - Lab Data Result diagrams: 07/18/17 12:50 07/18/17 12:50 Lab Results 07/18/17 07/18/17 07/18/17 Range/Units 12:50 12:50 12:50 WBC 15.8 H (3.8-10.6) k/uL RBC 4.30 (4.30-5.90) m/uL Hgb 13.8 (13.0-17.5) gm/dL Hct 42.2 (39.0-53.0) % MCV 98.3 (80.0-100.0) fL MCH 32.2 (25.0-35.0) pg MCHC 32.7 (31.0-37.0) g/dL RDW 13.5 (11.5-15.5) % Plt Count 373 (150-450) k/uL Neutrophils % 88 % Lymphocytes % 7 % Monocytes % 4 % Eosinophils % 0 % Basophils % 0 % Neutrophils # 14.0 H (1.3-7.7) k/uL Lymphocytes # 1.0 (1.0-4.8) k/uL Monocytes # 0.7 (0-1.0) k/uL Eosinophils # 0.0 (0-0.7) k/uL Basophils # 0.0 (0-0.2) k/uL Sodium 141 (137-145) mmol/L Potassium 4.5 (3.5-5.1) mmol/L Chloride 106 (98-107) mmol/L Carbon Dioxide 27 (22-30) mmol/L Anion Gap 8 mmol/L BUN 9 (9-20) mg/dL Creatinine 0.58 L (0.66-1.25) mg/dL Est GFR (MDRD) Af Amer >60 (>60 ml/min/1.73 sqM) Est GFR (MDRD) Non-Af >60 (>60 ml/min/1.73 sqM) Glucose 111 H (74-99) mg/dL Calcium 9.4 (8.4-10.2) mg/dL Total Bilirubin 0.3 (0.2-1.3) mg/dL AST 16 L (17-59) U/L ALT 18 L (21-72) U/L Alkaline Phosphatase 177 H (38-126) U/L Total Protein 6.3 (6.3-8.2) g/dL Albumin 3.1 L (3.5-5.0) g/dL Amylase 50 (30-110) U/L Lipase 505 H (23-300) U/L Serum Alcohol <10 mg/dL Disposition Clinical Impression: Chronic pancreatitis Disposition: HOME SELF-CARE Condition: Stable Instructions: Pancreatitis (ED) Additional Instructions: Please return to the Emergency Department if symptoms worsen or any other concerns. Prescriptions: Acetaminophen-Codeine 300-30mg [Tylenol #3] 1 tab PO Q4H PRN #14 tablet PRN Reason: pain Ondansetron Odt [Zofran Odt] 4 mg PO Q8HR PRN #10 tab PRN Reason: Nausea Referrals: Jessa Jones III, MD [Primary Care Provider] - 1-2 days Time of Disposition: 14:17
[2017-07-18 14:45] VITALS: BP 163/92; RESP 99
== END 2017-07-18 15:42 | disposition home or self-care (01) ==
LOC: EC 12:20
DX: K86.1 Other chronic pancreatitis (principal); D72.829 Elevated white blood cell count, unspecified; E78.5 Hyperlipidemia, unspecified; N42.9 Disorder of prostate, unspecified; F41.9 Anxiety disorder, unspecified; F32.9 Major depressive disorder, single episode, unspecified; F17.200 Nicotine dependence, unspecified, uncomplicated; Z79.51 Long term (current) use of inhaled steroids; Z79.899 Other long term (current) drug therapy; Z90.49 Acquired absence of other specified parts of digestive tract
CPT/HCPCS: 36415; 80053; 82150; 83690; 85025; 80320; 99284; 96374; 96375 ×2; 96376; J2270; J2405; J1885

== ENCOUNTER 2017-07-20 11:59 | Emergency (ER) | payer MEDICARE, OTHER ==
[2017-07-20] MEDS ORDERED: SODIUM CHLORIDE 0.9% 1,000 ML IV STA (12:42)
[2017-07-20] MEDS ORDERED: KETOROLAC 30 MG/ML 1 ML VIAL IVP STA (12:42)
[2017-07-20] MEDS ORDERED: PANTOPRAZOLE 40 MG/10 ML VIAL IVP STA (12:43)
[2017-07-20] MEDS ORDERED: ONDANSETRON 4 MG/2 ML VIAL IVP STA ×2 (12:43→15:07)
--- NOTE | 2017-07-20 12:49 | ED ---
General Adult HPI - General Chief complaint: Abdominal Pain Stated complaint: Abd Pain Time Seen by Provider: 07/20/17 12:37 Source: patient, RN notes reviewed Mode of arrival: wheelchair Limitations: no limitations - History of Present Illness Initial comments: Patient 46-year-old male significant past medical history pericarditis, presented today with a chief complaint of left upper quadrant pain that radiates into his chest. He admits to feeling nauseated. States symptoms increase last night. He states his symptoms are consistent with pancreatitis that is had in the past. He states this feels worse that it's been. He does not that he was drinking yesterday. He states he had a glass at 5 PM. Patient denies any other complaints or symptoms. Patient denies any recent fever, chills , shortness of breath, chest pain, numbness or tingling, dysuria or hematuria, constipation or diarrhea, headaches or visual changes, or any other complaints. - Related Data Home Medications Medication Instructions Recorded Confirmed Atorvastatin [Lipitor] 10 mg PO HS 09/27/15 07/20/17 Tamsulosin HCl [Flomax] 0.4 mg PO DAILY 12/18/16 07/20/17 traMADol HCL [Ultram] 50 mg PO Q6H PRN 02/22/17 07/20/17 Albuterol Inhaler [Ventolin Hfa 2 puff INHALATION RT-Q4H PRN 03/01/17 07/20/17 Inhaler] Multivitamins, Thera [Multivitamin 1 tab PO DAILY 03/01/17 07/20/17 (formulary)] Budesonide/Formoterol Fumarate 1 puff INHALATION RT-BID 04/04/17 07/20/17 [Symbicort 80-4.5 Mcg Inhaler] Cholecalciferol (Vitamin D3) 2,000 unit PO DAILY 04/04/17 07/20/17 [Vitamin D3] traZODone HCL 50 mg PO HS 04/04/17 07/20/17 DULoxetine HCL [Cymbalta] 60 mg PO DAILY 07/18/17 07/20/17 Gabapentin [Neurontin] 400 mg PO TID 07/18/17 07/20/17 chlordiazePOXIDE HCl [Librium] 25 - 50 mg PO DIRECTED 07/18/17 07/20/17 Previous Rx's Medication Instructions Recorded Folic Acid 1 mg PO DAILY #30 tablet 07/15/15 LORazepam [Ativan] 0.5 mg PO TID PRN #30 tab 12/22/16 Omeprazole [PriLOSEC] 40 mg PO BID #60 capsule. 05/16/17 Thiamine [Vitamin B-1] 100 mg PO DAILY #30 tablet 05/16/17 Acetaminophen-Codeine 300-30mg 1 tab PO Q4H PRN #14 tablet 07/18/17 [Tylenol #3] Ondansetron Odt [Zofran Odt] 4 mg PO Q8HR PRN #10 tab 07/18/17 Ondansetron Odt [Zofran ODT] 4 mg PO Q8HR PRN #20 tab 07/20/17 Allergies Allergy/AdvReac Type Severity Reaction Status Date / Time No Known Allergies Allergy Verified 07/20/17 12:47 Review of Systems ROS Statement: Those systems with pertinent positive or pertinent negative responses have been documented in the HPI. ROS Other: All systems not noted in ROS Statement are negative. Past Medical History Past Medical History: GERD/Reflux, Hyperlipidemia, Pneumonia, Prostate Disorder Additional Past Medical History / Comment(s): ETOH ABUSE, RECURRANT PANCREATITIS , ALCOHOLIC HEPATITIS, NEPHROLITHIASIS, hx of CHRONIC URINARY RETENTION DUE TO BACK PROBLEMS-SELF CATHS.UTI. CHRONIC LOW BACK PAIN. History of Any Multi-Drug Resistant Organisms: None Reported Past Surgical History: Back Surgery, Cholecystectomy, Orthopedic Surgery Additional Past Surgical History / Comment(s): Bronchoscopy, BACK surgeries with TITANIUM PLATES MILTON and CAGES, KIDNEY STONES removed per pt, SPINAL CORD STIMULATOR, ISMAEL KNEE ARTHROSCOPIES, PINKY FINGER RT HAND REATTATCHED Past Anesthesia/Blood Transfusion Reactions: No Reported Reaction Past Psychological History: Anxiety, Depression Smoking Status: Current every day smoker Past Alcohol Use History: Occasional Past Drug Use History: None Reported - Past Family History Father Family Medical History: Diabetes Mellitus Additional Family Medical History / Comment(s): Mother Family Medical History: Dementia, Hyperlipidemia, Hypertension Additional Family Medical History / Comment(s): Mother is living. General Exam - General Exam Comments Initial Comments: General: The patient is awake and alert, in no distress, and does not appear acutely ill. Eye: Pupils are equal, round and reactive to light, extra-ocular movements are intact. No nystagmus. There is normal conjunctiva bilaterally. No signs of icterus. Ears, nose, mouth and throat: There are moist mucous membranes and no oral lesions. Neck: The neck is supple. Cardiovascular: There is a regular rate and rhythm. No murmur, rub or gallop is appreciated. Respiratory: Lungs are clear to auscultation, respirations are non-labored, breath sounds are equal. No wheezes, stridor, rales, or rhonchi. Gastrointestinal: Normal appearance of the abdomen. Abdomen soft on palpation. Increased tenderness to both epigastric and left upper quadrant. No rebound tenderness, guarding, CVA tenderness. Musculoskeletal: Normal ROM, no tenderness. Strength 5/5. Sensation intact. Pulses equal bilaterally 2+. Neurological: A&O x 3. CN II-XII intact, There are no obvious motor or sensory deficits. Coordination appears grossly intact. Speech is normal. Skin: Skin is warm and dry and no rashes or lesions are noted. Psychiatric: Cooperative, appropriate mood & affect, normal judgment. Limitations: no limitations Course Vital Signs 07/20/17 07/20/17 07/20/17 12:00 13:43 14:27 Temperature 98.3 F Pulse Rate 76 69 68 Respiratory 16 18 18 Rate Blood Pressure 137/82 171/94 158/95 O2 Sat by Pulse 99 98 98 Oximetry EKG Findings - EKG Comments: EKG Findings:: EKG performed at 1209: Shows normal sinus rhythm at 69 bpm. FL interval 140. QRS 78. QT/QTc 408/437. No acute ST changes. Medical Decision Making - Medical Decision Making Case discussed in detail with attending physician Dr. Quispe. Patient reexamined at this time shows no signs of distress. Resting comfortably. His labs been reviewed does show mildly elevated lipase. Patient may labs been reviewed and shows similar findings on previous labs and visits. On conversation and with patient about drinking. Advised patient to look into programs to help with his addiction. At this time patient is feeling better after medications given here in the ER and is advised to follow-up the family doctor return if any symptoms increase or worsen. - Lab Data Result diagrams: 07/20/17 13:30 07/20/17 13:30 Lab Results 07/20/17 07/20/17 07/20/17 Range/Units 13:30 13:30 13:30 WBC 11.7 H (3.8-10.6) k/uL RBC 4.17 L (4.30-5.90) m/uL Hgb 13.2 (13.0-17.5) gm/dL Hct 40.9 (39.0-53.0) % MCV 98.0 (80.0-100.0) fL MCH 31.6 (25.0-35.0) pg MCHC 32.3 (31.0-37.0) g/dL RDW 13.6 (11.5-15.5) % Plt Count 284 (150-450) k/uL Neutrophils % 79 % Lymphocytes % 12 % Monocytes % 8 % Eosinophils % 1 % Basophils % 0 % Neutrophils # 9.2 H (1.3-7.7) k/uL Lymphocytes # 1.4 (1.0-4.8) k/uL Monocytes # 0.9 (0-1.0) k/uL Eosinophils # 0.1 (0-0.7) k/uL Basophils # 0.0 (0-0.2) k/uL PT 9.9 (9.0-12.0) sec INR 1.0 (<1.2) APTT 23.7 (22.0-30.0) sec Sodium 141 (137-145) mmol/L Potassium 3.5 (3.5-5.1) mmol/L Chloride 108 H (98-107) mmol/L Carbon Dioxide 26 (22-30) mmol/L Anion Gap 7 mmol/L BUN 6 L (9-20) mg/dL Creatinine 0.56 L (0.66-1.25) mg/dL Est GFR (MDRD) Af Amer >60 (>60 ml/min/1.73 sqM) Est GFR (MDRD) Non-Af >60 (>60 ml/min/1.73 sqM) Glucose 82 (74-99) mg/dL Calcium 9.0 (8.4-10.2) mg/dL Total Bilirubin 0.3 (0.2-1.3) mg/dL AST 15 L (17-59) U/L ALT 24 (21-72) U/L Alkaline Phosphatase 173 H (38-126) U/L Troponin I (0.000-0.034) ng/mL Total Protein 5.8 L (6.3-8.2) g/dL Albumin 2.9 L (3.5-5.0) g/dL Amylase 75 (30-110) U/L Lipase 815 H (23-300) U/L 07/20/17 Range/Units 13:30 WBC (3.8-10.6) k/uL RBC (4.30-5.90) m/uL Hgb (13.0-17.5) gm/dL Hct (39.0-53.0) % MCV (80.0-100.0) fL MCH (25.0-35.0) pg MCHC (31.0-37.0) g/dL RDW (11.5-15.5) % Plt Count (150-450) k/uL Neutrophils % % Lymphocytes % % Monocytes % % Eosinophils % % Basophils % % Neutrophils # (1.3-7.7) k/uL Lymphocytes # (1.0-4.8) k/uL Monocytes # (0-1.0) k/uL Eosinophils # (0-0.7) k/uL Basophils # (0-0.2) k/uL PT (9.0-12.0) sec INR (<1.2) APTT (22.0-30.0) sec Sodium (137-145) mmol/L Potassium (3.5-5.1) mmol/L Chloride (98-107) mmol/L Carbon Dioxide (22-30) mmol/L Anion Gap mmol/L BUN (9-20) mg/dL Creatinine (0.66-1.25) mg/dL Est GFR (MDRD) Af Amer (>60 ml/min/1.73 sqM) Est GFR (MDRD) Non-Af (>60 ml/min/1.73 sqM) Glucose (74-99) mg/dL Calcium (8.4-10.2) mg/dL Total Bilirubin (0.2-1.3) mg/dL AST (17-59) U/L ALT (21-72) U/L Alkaline Phosphatase (38-126) U/L Troponin I <0.012 (0.000-0.034) ng/mL Total Protein (6.3-8.2) g/dL Albumin (3.5-5.0) g/dL Amylase (30-110) U/L Lipase (23-300) U/L Disposition Clinical Impression: Chronic pancreatitis, History of alcohol abuse Disposition: HOME SELF-CARE Condition: Stable Instructions: Pancreatitis (ED) Additional Instructions: Please use medication as discussed. Please follow-up with family doctor in the next 2 days of symptoms have not improved. Please return to emergency room if the symptoms increase or worsen or for any other concerns. Prescriptions: Ondansetron Odt [Zofran ODT] 4 mg PO Q8HR PRN #20 tab PRN Reason: Nausea Referrals: Carrillo Leo Jr, DO [Primary Care Provider] - 1-2 days Time of Disposition: 15:10
[2017-07-20 13:46] LABS: Basophils % (A) 0 %; Eosinophils # (A) 0.1 k/uL (0-0.7); Eosinophils % (A) 1 %; HCT 40.9 % (39.0-53.0); HGB 13.2 gm/dL (13.0-17.5); Lymphocytes # (A) 1.4 k/uL (1.0-4.8); Lymphocytes % (A) 12 %; MCH 31.6 pg (25.0-35.0); MCHC 32.3 g/dL (31.0-37.0); Mean Platelet Volume 7.9; Monocytes # (A) 0.9 k/uL (0-1.0); Monocytes % (A) 8 %; Neutrophils # (A) 9.2 k/uL (1.3-7.7); Neutrophils % (A) 79 %; Platelet Count 284 k/uL (150-450); RBC 4.17 m/uL (4.30-5.90); RDW 13.6 % (11.5-15.5); WBC 11.7 k/uL (3.8-10.6)
[2017-07-20 13:53] LABS: Partial Thromboplastin Time 23.7 sec (22.0-30.0); Prothrombin Time 9.9 sec (9.0-12.0)
[2017-07-20 14:02] LABS: ALT 24 U/L (21-72); AST 15 U/L (17-59); Albumin 2.9 g/dL (3.5-5.0); Alkaline Phosphatase 173 U/L (38-126); Amylase 75 U/L (30-110); Anion Gap 7 mmol/L; Blood Urea Nitrogen 6 mg/dL (9-20); Carbon Dioxide 26 mmol/L (22-30); Chloride 108 mmol/L (98-107); Glucose 82 mg/dL (74-99); Lipase 815 U/L (23-300); Potassium 3.5 mmol/L (3.5-5.1); Sodium 141 mmol/L (137-145); Total Bilirubin 0.3 mg/dL (0.2-1.3); Total Protein 5.8 g/dL (6.3-8.2)
[2017-07-20] MEDS ORDERED: MORPHINE SULFATE 4 MG/ML SYRINGE IV STA (15:07)
[2017-07-20] MEDS ORDERED: SODIUM CHLORIDE 0.9% 500 ML IV STA (15:07)
[2017-07-20 15:31] VITALS: BP 154/92; PULSE 75; RESP 17; TEMP 97.8
== END 2017-07-20 15:45 | disposition home or self-care (01) ==
LOC: EC 11:59
DX: K86.1 Other chronic pancreatitis (principal); F10.11 Alcohol abuse, in remission; R74.8 Abnormal levels of other serum enzymes; E78.5 Hyperlipidemia, unspecified; N42.9 Disorder of prostate, unspecified; F32.9 Major depressive disorder, single episode, unspecified; F41.9 Anxiety disorder, unspecified; F17.200 Nicotine dependence, unspecified, uncomplicated; Z79.51 Long term (current) use of inhaled steroids; Z79.899 Other long term (current) drug therapy; Z90.49 Acquired absence of other specified parts of digestive tract
CPT/HCPCS: 36415; 93005; 80053; 82150; 83690; 84484; 85025; 85610; 85730; 99284; 96374; 96375 ×3; 96376; 96361 ×2; J2270; J2405; J1885; C9113

== ENCOUNTER 2017-08-11 21:16 | Emergency (ER) | payer MEDICARE, OTHER ==
[2017-08-11 21:23] VITALS: BP 157/93; PULSE 102; RESP 20; TEMP 98
[2017-08-11] MEDS ORDERED: SODIUM CHLORIDE 0.9% 500 ML IV STA (21:25)
--- NOTE | 2017-08-11 21:39 | ED ---
General Adult HPI - General Chief complaint: Nausea/Vomiting/Diarrhea Stated complaint: Possible Drug Overdose Time Seen by Provider: 08/11/17 21:18 Source: patient Mode of arrival: EMS Limitations: no limitations - History of Present Illness Initial comments: This patient is a 46-year-old man who presents to be evaluated for concerns about Tylenol overdose. He states that he was having some upper abdominal pain so he took a number of Tylenol No. 3 tablets. He states that from the time about 11:30 until proximally 4:30 in the afternoon, he took a total of 4 tablets. The patient then had told a friend and they were concerned that he had possibly overdosed on Tylenol he states that the Tylenol did help with his abdominal pain and a bit. He is not currently having nausea or vomiting. No other or new symptoms. In addition, patient is a daily drinker and did have a couple drinks earlier today. -: hour(s) Location: abdomen Radiation: non-radiation Quality: aching Consistency: constant Improves with: none Worsens with: none Treatments Prior to Arrival: none - Related Data Home Medications Medication Instructions Recorded Confirmed Atorvastatin [Lipitor] 10 mg PO HS 09/27/15 08/11/17 Tamsulosin HCl [Flomax] 0.4 mg PO DAILY 12/18/16 08/11/17 traMADol HCL [Ultram] 50 mg PO Q6H PRN 02/22/17 08/11/17 Albuterol Inhaler [Ventolin Hfa 2 puff INHALATION RT-Q4H PRN 03/01/17 08/11/17 Inhaler] Multivitamins, Thera [Multivitamin 1 tab PO DAILY 03/01/17 08/11/17 (formulary)] Budesonide/Formoterol Fumarate 1 puff INHALATION RT-BID 04/04/17 08/11/17 [Symbicort 80-4.5 Mcg Inhaler] Cholecalciferol (Vitamin D3) 2,000 unit PO DAILY 04/04/17 08/11/17 [Vitamin D3] traZODone HCL 50 mg PO HS 04/04/17 08/11/17 DULoxetine HCL [Cymbalta] 60 mg PO DAILY 07/18/17 08/11/17 Gabapentin [Neurontin] 400 mg PO TID 07/18/17 08/11/17 chlordiazePOXIDE HCl [Librium] 25 - 50 mg PO DIRECTED 07/18/17 08/11/17 Previous Rx's Medication Instructions Recorded Folic Acid 1 mg PO DAILY #30 tablet 07/15/15 LORazepam [Ativan] 0.5 mg PO TID PRN #30 tab 12/22/16 Omeprazole [PriLOSEC] 40 mg PO BID #60 capsule. 05/16/17 Thiamine [Vitamin B-1] 100 mg PO DAILY #30 tablet 05/16/17 Acetaminophen-Codeine 300-30mg 1 tab PO Q4H PRN #14 tablet 07/18/17 [Tylenol #3] Ondansetron Odt [Zofran Odt] 4 mg PO Q8HR PRN #10 tab 07/18/17 Ondansetron Odt [Zofran ODT] 4 mg PO Q8HR PRN #20 tab 07/20/17 Allergies Allergy/AdvReac Type Severity Reaction Status Date / Time No Known Allergies Allergy Verified 07/20/17 12:47 Review of Systems ROS Statement: Those systems with pertinent positive or pertinent negative responses have been documented in the HPI. ROS Other: All systems not noted in ROS Statement are negative. Constitutional: Denies: fever, chills Respiratory: Denies: cough, dyspnea Cardiovascular: Denies: chest pain, palpitations, edema, syncope Gastrointestinal: Reports: as per HPI, abdominal pain. Denies: nausea, vomiting , diarrhea, constipation Genitourinary: Denies: dysuria, hematuria Musculoskeletal: Denies: back pain Skin: Denies: rash Neurological: Denies: headache, weakness, numbness Past Medical History Past Medical History: GERD/Reflux, Hyperlipidemia, Pneumonia, Prostate Disorder Additional Past Medical History / Comment(s): ETOH ABUSE, RECURRANT PANCREATITIS , ALCOHOLIC HEPATITIS, NEPHROLITHIASIS, hx of CHRONIC URINARY RETENTION DUE TO BACK PROBLEMS-SELF CATHS.UTI. CHRONIC LOW BACK PAIN. History of Any Multi-Drug Resistant Organisms: None Reported Past Surgical History: Back Surgery, Cholecystectomy, Orthopedic Surgery Additional Past Surgical History / Comment(s): Bronchoscopy, BACK surgeries with TITANIUM PLATES MILTON and CAGES, KIDNEY STONES removed per pt, SPINAL CORD STIMULATOR, ISMAEL KNEE ARTHROSCOPIES, PINKY FINGER RT HAND REATTATCHED Past Anesthesia/Blood Transfusion Reactions: No Reported Reaction Past Psychological History: Anxiety, Depression Smoking Status: Current every day smoker Past Alcohol Use History: Occasional Past Drug Use History: None Reported - Past Family History Father Family Medical History: Diabetes Mellitus Additional Family Medical History / Comment(s): Mother Family Medical History: Dementia, Hyperlipidemia, Hypertension Additional Family Medical History / Comment(s): Mother is living. General Exam Limitations: no limitations General appearance: alert, in no apparent distress Head exam: Present: atraumatic, normocephalic Eye exam: Present: normal appearance. Absent: scleral icterus, conjunctival injection Respiratory exam: Present: normal lung sounds bilaterally. Absent: respiratory distress, wheezes, rales, rhonchi, stridor Cardiovascular Exam: Present: regular rate, normal rhythm, normal heart sounds. Absent: systolic murmur, diastolic murmur, rubs, gallop GI/Abdominal exam: Present: soft. Absent: distended, tenderness, guarding, rebound, rigid, mass, pulsatile mass, hernia Extremities exam: Present: normal inspection, normal capillary refill. Absent: pedal edema, calf tenderness Neurological exam: Present: alert Skin exam: Present: warm, dry, intact, normal color. Absent: rash Course Vital Signs 08/11/17 21:19 Temperature 98.0 F Pulse Rate 102 H Respiratory 20 Rate Blood Pressure 157/93 O2 Sat by Pulse 100 Oximetry Medical Decision Making - Lab Data Result diagrams: 08/11/17 21:47 08/11/17 21:47 Lab Results 08/11/17 08/11/17 Range/Units 21:47 21:47 WBC 10.4 (3.8-10.6) k/uL RBC 4.28 L (4.30-5.90) m/uL Hgb 13.1 (13.0-17.5) gm/dL Hct 40.5 (39.0-53.0) % MCV 94.7 (80.0-100.0) fL MCH 30.5 (25.0-35.0) pg MCHC 32.2 (31.0-37.0) g/dL RDW 13.6 (11.5-15.5) % Plt Count 295 (150-450) k/uL Neutrophils % 89 % Lymphocytes % 6 % Monocytes % 5 % Eosinophils % 0 % Basophils % 0 % Neutrophils # 9.2 H (1.3-7.7) k/uL Lymphocytes # 0.6 L (1.0-4.8) k/uL Monocytes # 0.5 (0-1.0) k/uL Eosinophils # 0.0 (0-0.7) k/uL Basophils # 0.0 (0-0.2) k/uL Sodium 133 L (137-145) mmol/L Potassium 4.1 (3.5-5.1) mmol/L Chloride 99 (98-107) mmol/L Carbon Dioxide 25 (22-30) mmol/L Anion Gap 9 mmol/L BUN 7 L (9-20) mg/dL Creatinine 0.60 L (0.66-1.25) mg/dL Est GFR (CKD-EPI)AfAm >90 (>60 ml/min/1.73 sqM) Est GFR (CKD-EPI)NonAf >90 (>60 ml/min/1.73 sqM) Glucose 113 H (74-99) mg/dL Calcium 8.8 (8.4-10.2) mg/dL Total Bilirubin 0.6 (0.2-1.3) mg/dL AST 20 (17-59) U/L ALT 36 (21-72) U/L Alkaline Phosphatase 215 H (38-126) U/L Total Protein 6.4 (6.3-8.2) g/dL Albumin 3.2 L (3.5-5.0) g/dL Amylase 76 (30-110) U/L Lipase 809 H (23-300) U/L Acetaminophen <10.0 ug/mL Serum Alcohol <10 mg/dL Disposition Clinical Impression: Pancreatitis Disposition: HOME SELF-CARE Condition: Good Instructions: Pancreatitis (ED) Referrals: Carrillo Leo Jr, DO [Primary Care Provider] - 1-2 days
[2017-08-11] MEDS ORDERED: ONDANSETRON 4 MG/2 ML VIAL IVP STA (21:42)
[2017-08-11 21:58] LABS: Basophils % (A) 0 %; Eosinophils % (A) 0 %; HCT 40.5 % (39.0-53.0); HGB 13.1 gm/dL (13.0-17.5); Lymphocytes # (A) 0.6 k/uL (1.0-4.8); Lymphocytes % (A) 6 %; MCH 30.5 pg (25.0-35.0); MCHC 32.2 g/dL (31.0-37.0); MCV 94.7 fL (80.0-100.0); Mean Platelet Volume 7.9; Monocytes # (A) 0.5 k/uL (0-1.0); Monocytes % (A) 5 %; Neutrophils # (A) 9.2 k/uL (1.3-7.7); Neutrophils % (A) 89 %; Platelet Count 295 k/uL (150-450); RBC 4.28 m/uL (4.30-5.90); RDW 13.6 % (11.5-15.5); WBC 10.4 k/uL (3.8-10.6)
[2017-08-11 22:08] LABS: ALT 36 U/L (21-72); AST 20 U/L (17-59); Acetaminophen <10.0 ug/mL; Albumin 3.2 g/dL (3.5-5.0); Alcohol <10 mg/dL; Alkaline Phosphatase 215 U/L (38-126); Amylase 76 U/L (30-110); Anion Gap 9 mmol/L; Blood Urea Nitrogen 7 mg/dL (9-20); Calcium 8.8 mg/dL (8.4-10.2); Carbon Dioxide 25 mmol/L (22-30); Chloride 99 mmol/L (98-107); Glucose 113 mg/dL (74-99); Lipase 809 U/L (23-300); Potassium 4.1 mmol/L (3.5-5.1); Sodium 133 mmol/L (137-145); Total Bilirubin 0.6 mg/dL (0.2-1.3); Total Protein 6.4 g/dL (6.3-8.2)
[2017-08-11] MEDS ORDERED: METOCLOPRAMIDE 5 MG/ML 2 ML VIAL IVP STA (22:44)
== END 2017-08-11 23:12 | disposition home or self-care (01) ==
LOC: EC 21:16
DX: K85.90 Acute pancreatitis without necrosis or infection, unspecified (principal); K21.9 Gastro-esophageal reflux disease without esophagitis; E78.5 Hyperlipidemia, unspecified; F32.9 Major depressive disorder, single episode, unspecified; F41.9 Anxiety disorder, unspecified; F17.200 Nicotine dependence, unspecified, uncomplicated; Z79.51 Long term (current) use of inhaled steroids; Z79.899 Other long term (current) drug therapy
CPT/HCPCS: 36415; 80053; 82150; 83690; 85025; 83520; 80320; 99284; 96374; 96375; 96361; J2765; J2405

== ENCOUNTER 2017-08-12 11:44 | Inpatient (IN) | payer MEDICARE, OTHER ==
[2017-08-12] MEDS ORDERED: SODIUM CHLORIDE 0.9% 1,000 ML IV STA ×2 (12:15)
[2017-08-12] MEDS ORDERED: KETOROLAC 30 MG/ML 1 ML VIAL IVP STA (12:16)
[2017-08-12] MEDS ORDERED: PANTOPRAZOLE 40 MG/10 ML VIAL IVP STA (12:16)
--- NOTE | 2017-08-12 12:20 | ED ---
Chest Pain HPI - General Chief Complaint: Chest Pain Stated Complaint: Chest pain Time Seen by Provider: 08/12/17 11:59 Source: patient, RN notes reviewed Mode of arrival: ambulatory Limitations: no limitations - History of Present Illness Initial Comments: This a 46-year-old male with history of alcoholism and pancreatitis who states she's been vomiting all night long multiple episodes and has now developed sharp midsternal chest pain gets worse with certain movements and deep breathing and radiates to his back is 10/10. He feels dehydrated he thinks his pancreatitis is back again. He does admit to drinking some beer yesterday he states only 1-1/2 beers. He denies any diarrhea. MD Complaint: chest pain, other - Related Data Home Medications Medication Instructions Recorded Confirmed Atorvastatin [Lipitor] 10 mg PO HS 09/27/15 08/12/17 Tamsulosin HCl [Flomax] 0.4 mg PO DAILY 12/18/16 08/12/17 traMADol HCL [Ultram] 50 mg PO Q6H PRN 02/22/17 08/12/17 Albuterol Inhaler [Ventolin Hfa 2 puff INHALATION RT-Q4H PRN 03/01/17 08/12/17 Inhaler] Multivitamins, Thera [Multivitamin 1 tab PO DAILY 03/01/17 08/12/17 (formulary)] Budesonide/Formoterol Fumarate 1 puff INHALATION RT-BID 04/04/17 08/12/17 [Symbicort 80-4.5 Mcg Inhaler] Cholecalciferol (Vitamin D3) 2,000 unit PO DAILY 04/04/17 08/12/17 [Vitamin D3] traZODone HCL 50 mg PO HS 04/04/17 08/12/17 DULoxetine HCL [Cymbalta] 60 mg PO DAILY 07/18/17 08/12/17 Gabapentin [Neurontin] 400 mg PO TID 07/18/17 08/12/17 chlordiazePOXIDE HCl [Librium] See Taper PO DIRECTED 07/18/17 08/12/17 Previous Rx's Medication Instructions Recorded Folic Acid 1 mg PO DAILY #30 tablet 07/15/15 LORazepam [Ativan] 0.5 mg PO TID PRN #30 tab 12/22/16 Omeprazole [PriLOSEC] 40 mg PO BID #60 capsule. 05/16/17 Thiamine [Vitamin B-1] 100 mg PO DAILY #30 tablet 05/16/17 Acetaminophen-Codeine 300-30mg 1 tab PO Q4H PRN #14 tablet 07/18/17 [Tylenol #3] Ondansetron Odt [Zofran ODT] 4 mg PO Q8HR PRN #20 tab 07/20/17 Allergies Allergy/AdvReac Type Severity Reaction Status Date / Time No Known Allergies Allergy Verified 08/12/17 12:33 Review of Systems ROS Statement: Those systems with pertinent positive or pertinent negative responses have been documented in the HPI. ROS Other: All systems not noted in ROS Statement are negative. EKG Findings - EKG Results: EKG: interpreted by PAULO, sinus rhythm (Sinus rhythm with sinus arrhythmia the rate was 90. Interval 154 QRS duration 80 QT since QTC of 420/523 prolonged QT and no acute ST-T wave changes.) Past Medical History Past Medical History: GERD/Reflux, Hyperlipidemia, Pneumonia, Prostate Disorder Additional Past Medical History / Comment(s): ETOH ABUSE, RECURRANT PANCREATITIS , ALCOHOLIC HEPATITIS, NEPHROLITHIASIS, hx of CHRONIC URINARY RETENTION DUE TO BACK PROBLEMS-SELF CATHS.UTI. CHRONIC LOW BACK PAIN. History of Any Multi-Drug Resistant Organisms: None Reported Past Surgical History: Back Surgery, Cholecystectomy, Orthopedic Surgery Additional Past Surgical History / Comment(s): Bronchoscopy, BACK surgeries with TITANIUM PLATES MILTON and CAGES, KIDNEY STONES removed per pt, SPINAL CORD STIMULATOR, ISMAEL KNEE ARTHROSCOPIES, PINKY FINGER RT HAND REATTATCHED Past Anesthesia/Blood Transfusion Reactions: No Reported Reaction Past Psychological History: Anxiety, Depression Smoking Status: Current every day smoker Past Alcohol Use History: Occasional Past Drug Use History: None Reported - Past Family History Father Family Medical History: Diabetes Mellitus Additional Family Medical History / Comment(s): Mother Family Medical History: Dementia, Hyperlipidemia, Hypertension Additional Family Medical History / Comment(s): Mother is living. General Exam - General Exam Comments Initial Comments: This is a well-developed well-nourished awake alert oriented 3 male Limitations: no limitations General appearance: alert, in no apparent distress Head exam: Present: atraumatic, normocephalic, normal inspection Eye exam: Present: normal appearance, PERRL, EOMI. Absent: scleral icterus, conjunctival injection, periorbital swelling ENT exam: Present: mucous membranes dry Neck exam: Present: normal inspection. Absent: tenderness, meningismus, lymphadenopathy Respiratory exam: Present: normal lung sounds bilaterally, chest wall tenderness (Reproducible tenderness palpation of the anterior chest wall at the costal sternal margins bilaterally). Absent: respiratory distress, wheezes, rales, rhonchi, stridor Cardiovascular Exam: Present: normal rhythm, tachycardia, normal heart sounds. Absent: systolic murmur, diastolic murmur, rubs, gallop, clicks GI/Abdominal exam: Present: soft, normal bowel sounds. Absent: distended, tenderness, guarding, rebound, rigid Rectal exam: Present: deferred Extremities exam: Present: normal inspection, full ROM, normal capillary refill. Absent: tenderness, pedal edema, joint swelling, calf tenderness Back exam: Present: normal inspection, tenderness, paraspinal tenderness. Absent: CVA tenderness (R), CVA tenderness (L), vertebral tenderness, rash noted Neurological exam: Present: alert, oriented X3, CN II-XII intact Psychiatric exam: Present: normal affect, normal mood Skin exam: Present: warm, dry, intact, normal color. Absent: rash Course Vital Signs 08/12/17 08/12/17 11:48 13:21 Temperature 97.6 F 99.5 F Pulse Rate 116 H 80 Respiratory 20 16 Rate Blood Pressure 117/69 144/75 O2 Sat by Pulse 100 100 Oximetry - Reevaluation(s) Reevaluation #1: 08/12/17 14:43 The patient was noted have an episode of emesis black colored with a hint of burgundy color noted. It was heme positive Chest Pain MDM - MDM The presentation is consistent with acute pancreatitis upper GI bleed. Chest pain was reproducible and not consistent with heart disease. Patient be admitted I did discuss the case with Dr. Trejo before the emesis started. Patient will be admitted nothing by mouth nasogastric tube GI consultation serial H&H is. Disposition Clinical Impression: Acute pancreatitis, Upper GI bleed, Alcohol abuse, Dehydration, Chest wall syndrome, Costalchondritis, Intractable vomiting with nausea, Tobacco abuse, Abdominal pain Disposition: ADMITTED IP TO THIS [facility] Condition: Stable Referrals: Carrillo Leo Jr, [Primary Care Provider] - 1-2 days
[2017-08-12 13:36] LABS: Basophils % (A) 0 %; Eosinophils # (A) 0.1 k/uL (0-0.7); Eosinophils % (A) 0 %; HCT 41.8 % (39.0-53.0); HGB 13.6 gm/dL (13.0-17.5); Lymphocytes # (A) 0.5 k/uL (1.0-4.8); Lymphocytes % (A) 4 %; MCH 30.9 pg (25.0-35.0); MCHC 32.6 g/dL (31.0-37.0); MCV 94.6 fL (80.0-100.0); Mean Platelet Volume 8.2; Monocytes # (A) 1.1 k/uL (0-1.0); Monocytes % (A) 7 %; Neutrophils # (A) 13.1 k/uL (1.3-7.7); Neutrophils % (A) 88 %; Platelet Count 339 k/uL (150-450); RBC 4.42 m/uL (4.30-5.90); RDW 13.7 % (11.5-15.5); WBC 14.8 k/uL (3.8-10.6)
[2017-08-12 13:44] LABS: Creatine Kinase 51 U/L (55-170); Partial Thromboplastin Time 22.1 sec (22.0-30.0); Prothrombin Time 9.8 sec (9.0-12.0)
[2017-08-12 13:45] LABS: ALT 26 U/L (21-72); AST 32 U/L (17-59); Albumin 3.5 g/dL (3.5-5.0); Alkaline Phosphatase 202 U/L (38-126); Amylase 145 U/L (30-110); Anion Gap 14 mmol/L; Blood Urea Nitrogen 9 mg/dL (9-20); Calcium 9.2 mg/dL (8.4-10.2); Carbon Dioxide 21 mmol/L (22-30); Chloride 100 mmol/L (98-107); Glucose 143 mg/dL (74-99); Magnesium 1.9 mg/dL (1.6-2.3); Potassium 4.9 mmol/L (3.5-5.1); Sodium 135 mmol/L (137-145); Total Bilirubin 0.9 mg/dL (0.2-1.3); Total Protein 6.9 g/dL (6.3-8.2)
[2017-08-12] MEDS ORDERED: ONDANSETRON 4 MG/2 ML VIAL IVP STA (13:49)
[2017-08-12 13:57] LABS: Creatine Kinase MB 0.3 ng/mL (0.0-2.4); Troponin I <0.012 ng/mL (0.000-0.034)
[2017-08-12 13:59] LABS: Lipase 2108 U/L (23-300)
[2017-08-12] MEDS ORDERED: NALOXONE 0.4 MG/ML 1 ML VIAL IV PRN (14:33)
[2017-08-12] MEDS ORDERED: THIAMINE 100 MG/ML 2 ML VIAL IM STA (14:38)
[2017-08-12] MEDS ORDERED: LORazepam 2 MG/ML INJ IV PRN ×2 (14:38)
[2017-08-12] MEDS ORDERED: NICOTINE 21MG/24HR PATCH TRANSDERM STA (14:41)
[2017-08-12] MEDS: MORPHINE SULFATE/PF 10MG/10ML VL IVP PRN ×3 (15:17→23:24)
--- NOTE | 2017-08-12 15:52 | XR ---
EXAMINATION TYPE: XR abdomen 1V , 2 VIEWS DATE OF EXAM ORDERED: 08/12/2017 HISTORY: Chest and abdominal pain. COMPARISON: Previous study dated 07/09/2017. FINDINGS: There is a pain stimulator projecting over the lower dorsal spine. There has been an inter pedicular fusion with spacer placement at L4, L5 and S1. There has been a cholecystectomy. The lung bases are clear. Within the abdomen the abdominal gas pattern is normal. There is no evidence of obstruction or free a ir. No unusual calcifications are seen. IMPRESSION: 1. NO ACUTE ABNORMALITY. 2. POSTSURGICAL CHANGE.
--- NOTE | 2017-08-12 15:53 | XR ---
EXAMINATION TYPE: XR chest 2V DATE OF EXAM: 08/12/2017 HISTORY: Chest Pain. REFERENCE: Previous study dated 07/09/2017. FINDINGS: Lung volumes are mildly prominent. The lungs are clear. Pleural space are clear. The heart is not enlarged. Note is made of a pain stimulator projecting over the lower dorsal spine. IMPRESSION: NO ACUTE INTRATHORACIC ABNORMALITY.
--- NOTE | 2017-08-12 16:55 | P.HPIM ---
History of Present Illness H&P Date: 08/12/17 Chief Complaint: Abdominal pain This is a 46-year-old white male new to our practice. He see my partner, Dr. Leo, one time. He was a previous patient Dr. Jones for this. These usually with Dr Pizano for previous hospital stays. He reports increased mid epigastric abdominal pain. He reports having a couple of beers the other day, that might have contributed to this.. He has a history of recurrent pancreatitis. Review of Systems All systems: negative Past Medical History Past Medical History: GERD/Reflux, Hyperlipidemia, Pneumonia, Prostate Disorder Additional Past Medical History / Comment(s): ETOH ABUSE, RECURRANT PANCREATITIS , ALCOHOLIC HEPATITIS, NEPHROLITHIASIS, hx of CHRONIC URINARY RETENTION DUE TO BACK PROBLEMS-SELF CATHS.UTI. CHRONIC LOW BACK PAIN. History of Any Multi-Drug Resistant Organisms: None Reported Past Surgical History: Back Surgery, Cholecystectomy, Orthopedic Surgery Additional Past Surgical History / Comment(s): Bronchoscopy, BACK surgeries with TITANIUM PLATES MILTON and CAGES, KIDNEY STONES removed per pt, SPINAL CORD STIMULATOR, ISMAEL KNEE ARTHROSCOPIES, PINKY FINGER RT HAND REATTATCHED Past Anesthesia/Blood Transfusion Reactions: No Reported Reaction Past Psychological History: Anxiety, Depression Smoking Status: Current every day smoker Past Alcohol Use History: Occasional Past Drug Use History: None Reported - Past Family History Father Family Medical History: Diabetes Mellitus Additional Family Medical History / Comment(s): Mother Family Medical History: Dementia, Hyperlipidemia, Hypertension Additional Family Medical History / Comment(s): Mother is living. Medications and Allergies Home Medications Medication Instructions Recorded Confirmed Type Folic Acid 1 mg PO DAILY #30 tablet 07/15/15 08/12/17 Rx Atorvastatin [Lipitor] 10 mg PO HS 09/27/15 08/12/17 History Tamsulosin HCl [Flomax] 0.4 mg PO DAILY 12/18/16 08/12/17 History LORazepam [Ativan] 0.5 mg PO TID PRN #30 tab 12/22/16 08/12/17 Rx traMADol HCL [Ultram] 50 mg PO Q6H PRN 02/22/17 08/12/17 History Albuterol Inhaler [Ventolin Hfa 2 puff INHALATION RT-Q4H PRN 03/01/17 08/12/17 History Inhaler] Multivitamins, Thera [Multivitamin 1 tab PO DAILY 03/01/17 08/12/17 History (formulary)] Budesonide/Formoterol Fumarate 1 puff INHALATION RT-BID 04/04/17 08/12/17 History [Symbicort 80-4.5 Mcg Inhaler] Cholecalciferol (Vitamin D3) 2,000 unit PO DAILY 04/04/17 08/12/17 History [Vitamin D3] traZODone HCL 50 mg PO HS 04/04/17 08/12/17 History Omeprazole [PriLOSEC] 40 mg PO BID #60 capsule. 05/16/17 08/12/17 Rx Thiamine [Vitamin B-1] 100 mg PO DAILY #30 tablet 05/16/17 08/12/17 Rx Acetaminophen-Codeine 300-30mg 1 tab PO Q4H PRN #14 tablet 07/18/17 08/12/17 Rx [Tylenol #3] DULoxetine HCL [Cymbalta] 60 mg PO DAILY 07/18/17 08/12/17 History Gabapentin [Neurontin] 400 mg PO TID 07/18/17 08/12/17 History chlordiazePOXIDE HCl [Librium] See Taper PO DIRECTED 07/18/17 08/12/17 History Ondansetron Odt [Zofran ODT] 4 mg PO Q8HR PRN #20 tab 07/20/17 08/12/17 Rx Allergies Allergy/AdvReac Type Severity Reaction Status Date / Time No Known Allergies Allergy Verified 08/12/17 12:33 Physical Exam Vitals: Vital Signs Temp Pulse Resp BP Pulse Ox 08/12/17 16:10 98.5 F 16 119/70 08/12/17 15:20 98.5 F 110 H 20 154/87 100 08/12/17 13:21 99.5 F 80 16 144/75 100 08/12/17 11:48 97.6 F 116 H 20 117/69 100 Intake and Output 08/12/17 08/12/17 08/12/17 06:59 14:59 22:59 Output Total 750 Balance -750 Output: Gastric Drainage 750 Other: Weight 67.132 kg GENERAL: Fatigue and uncomfortable patient. HEAD: Atraumatic, normocephalic. EYES: Pupils equal round and reactive to light, extraocular movements intact, sclera anicteric, conjunctiva are normal. ENT:nares patent, oropharynx clear without exudates. Moist mucous membranes. NECK: Normal range of motion, supple without lymphadenopathy or JVD, no thyromegaly LUNGS: Breath sounds clear to auscultation bilaterally and equal. No wheezes rales or rhonchi. HEART: Regular rate and rhythm without murmurs, rubs or gallops.S1S2 Normal ABDOMEN: Slightly decreased bowel sounds in all quadrants. There is significant midepigastric abdominal pain to palpation. There is less pain in the other quadrants of the abdomen. There is no rebound or guarding at this time. EXTREMITIES: Normal range of motion, no pitting or edema. No clubbing or cyanosis. NEUROLOGICAL: Cranial nerves II through XII grossly intact. Normal speech, normal gait. PSYCH: Normal mood, normal affect. SKIN: Warm, Dry, normal turgor, no rashes or lesions noted. Results CBC & Chem 7: 08/12/17 13:13 08/12/17 13:13 Labs: Abnormal Lab Results - Last 24 Hours (Table) 08/12/17 08/12/17 08/12/17 Range/Units 13:13 13:13 13:13 WBC 14.8 H (3.8-10.6) k/uL Neutrophils # 13.1 H (1.3-7.7) k/uL Lymphocytes # 0.5 L (1.0-4.8) k/uL Monocytes # 1.1 H (0-1.0) k/uL Sodium 135 L (137-145) mmol/L Carbon Dioxide 21 L (22-30) mmol/L Creatinine 0.50 L (0.66-1.25) mg/dL Glucose 143 H (74-99) mg/dL Alkaline Phosphatase 202 H (38-126) U/L Total Creatine Kinase 51 L (55-170) U/L Amylase 145 H (30-110) U/L Lipase 2108 H (23-300) U/L Chest x-ray: report reviewed Abdominal x-ray: report reviewed Thrombosis Risk Factor Assmnt - DVT/VTE Prophylaxis DVT/VTE Prophylaxis: Mechanical Prophylaxis ordered Assessment and Plan Plan: Acute on chronic recurrent pancreatitis: He frequently sees Dr. Love, we will put in a consult for him. He should to be nothing by mouth. ER is ordered morphine in Ativan for him. He remains on pantoprazole. He is on IV fluids for hydration. Chronic low back pain and a history of multiple repairs and significant gait dysfunction. Alcoholism GERD Hyperlipidemia Chronic urinary retention Plan Friedman catheter if needed, he'll continue his pain medications, remain nothing by mouth, continue IV fluids, with a GI consult, he may need an NG tube. Be reevaluated in the next 24 hours.
[2017-08-12] MEDS: SODIUM CHLORIDE 0.9% 1,000 ML IV SCH (17:02)
[2017-08-12 17:42] LABS: Appearance,Urine Cloudy (Clear); Bacteria,Urine Occasional /hpf; Bilirubin,Urine Negative (Negative); Blood,Urine Small (Negative); Budding Yeast,Urine Many /hpf; Color,Urine Yellow; Glucose,Urine (UA) Negative (Negative); Ketones,Urine 1+ (Negative); Leukocyte Esterase,Urine Large (Negative); Mucus,Urine Occasional /hpf; Nitrite,Urine Positive (Negative); PH, Urine 6.5 (5.0-8.0); Protein,Urine Trace (Negative); RBC,Urine 32 /hpf (0-5); Specific Gravity,Urine 1.015 (1.001-1.035); Squamous Epithelial Cell,Urine <1 /hpf (0-4); Urobilinogen,Urine <2.0 mg/dL (<2.0); WBC,Urine 21 /hpf (0-5)
[2017-08-12] MEDS: LORazepam 2 MG/ML INJ IV PRN (17:53)
[2017-08-12] MEDS ORDERED: IPRATROPIUM-ALBUTEROL 3 ML NEB INHALATION PRN (19:21)
[2017-08-12 19:49] LABS: HCT 37.3 % (39.0-53.0); HGB 12.2 gm/dL (13.0-17.5); MCH 30.8 pg (25.0-35.0); MCHC 32.6 g/dL (31.0-37.0); MCV 94.3 fL (80.0-100.0); Mean Platelet Volume 7.8; Platelet Count 280 k/uL (150-450); RBC 3.96 m/uL (4.30-5.90); RDW 13.8 % (11.5-15.5); WBC 13.5 k/uL (3.8-10.6)
[2017-08-12] MEDS ORDERED: IPRATROPIUM-ALBUTEROL 3 ML NEB INHALATION SCH (20:00)
[2017-08-12] MEDS: PANTOPRAZOLE 40 MG/10 ML VIAL IV SCH (20:06)
[2017-08-12] MEDS: IPRATROPIUM-ALBUTEROL 3 ML NEB INHALATION SCH (20:56)
[2017-08-12] MEDS: ONDANSETRON 4 MG/2 ML VIAL IVP PRN (23:32)
[2017-08-13] MEDS: LORazepam 2 MG/ML INJ IV PRN (01:19)
[2017-08-13] MEDS: MORPHINE SULFATE/PF 10MG/10ML VL IVP PRN ×7 (02:45→23:32)
[2017-08-13] MEDS: SODIUM CHLORIDE 0.9% 1,000 ML IV SCH ×2 (05:31→08:03)
[2017-08-13 06:27] VITALS: RESP 16
[2017-08-13] MEDS: IPRATROPIUM-ALBUTEROL 3 ML NEB INHALATION SCH ×3 (07:15→19:15)
[2017-08-13] MEDS: NICOTINE 21MG/24HR PATCH TRANSDERM SCH (08:39)
[2017-08-13 08:40] LABS: Basophils % (A) 0 %; Eosinophils % (A) 0 %; HCT 38.1 % (39.0-53.0); HGB 12.1 gm/dL (13.0-17.5); Lymphocytes # (A) 1.2 k/uL (1.0-4.8); Lymphocytes % (A) 14 %; MCH 30.8 pg (25.0-35.0); MCHC 31.9 g/dL (31.0-37.0); MCV 96.3 fL (80.0-100.0); Mean Platelet Volume 7.6; Monocytes # (A) 0.9 k/uL (0-1.0); Monocytes % (A) 11 %; Neutrophils # (A) 6.5 k/uL (1.3-7.7); Neutrophils % (A) 74 %; Platelet Count 256 k/uL (150-450); RBC 3.95 m/uL (4.30-5.90); RDW 13.6 % (11.5-15.5); WBC 8.7 k/uL (3.8-10.6)
[2017-08-13] MEDS: PANTOPRAZOLE 40 MG/10 ML VIAL IV SCH ×3 (08:40→21:14)
[2017-08-13] MEDS: BENZOCAINE SPRAY 1 CAN MUCOUS MEM PRN ×2 (08:40→16:43)
[2017-08-13 08:57] LABS: Amylase 51 U/L (30-110); Anion Gap 10 mmol/L; Blood Urea Nitrogen 10 mg/dL (9-20); Calcium 8.3 mg/dL (8.4-10.2); Carbon Dioxide 26 mmol/L (22-30); Chloride 106 mmol/L (98-107); Glucose 97 mg/dL (74-99); Lipase 424 U/L (23-300); Magnesium 1.7 mg/dL (1.6-2.3); Potassium 3.1 mmol/L (3.5-5.1); Sodium 142 mmol/L (137-145)
[2017-08-13] MEDS: ONDANSETRON 4 MG/2 ML VIAL IVP PRN (09:04)
--- NOTE | 2017-08-13 10:13 | P.PN ---
Subjective Progress Note Date: 08/13/17 46-year-old male who presented to the emergency room on 08/12/2017 with a chief complaint of abdominal pain and vomiting. The patient has a history of alcoholism and reports drinking beer the previous day. Reports drinking 2 beers. The patient was also complaining of midsternal chest pain that intensifies with certain movements and deep breaths. The patient had an episode of black colored emesis in the emergency room with a tentative burgundy color. Emesis was positive for occult blood. Serum alcohol less than 10. 08/13/2017 The patient was seen and evaluated at the bedside. NG tube remains intact with bilious output. No further bleeding episodes per patient. Patient continues to complain of generalized abdominal pain. Denies nausea. Amylase 51. Lipase 424. Denies shortness of breath or coughing. Denies chest pain. Patient reports the NG tube is irritating his throat. WBC this morning is 8.7, down from 13.5. Hemoglobin is 12.1. Urinalysis is positive for trace proteinuria, small blood, and large leukocyte esterase. Patient denies any urinary symptoms. Objective - Vital Signs Vital signs: Vital Signs Temp 98.3 F 08/13/17 06:26 Pulse 93 08/13/17 07:25 Resp 16 08/13/17 06:26 BP 153/95 08/13/17 06:26 Pulse Ox 97 08/13/17 06:26 Intake & Output 08/12/17 08/13/17 08/13/17 18:59 06:59 18:59 Output Total 1350 Balance -1350 Weight 67.132 kg Output: Gastric Drainage 750 Urine 600 Straight 600 Other: Voiding Method Self-Catheterization Self-Catheterization # Voids 0 - Exam GENERAL: This is a -year-old in no apparent distress at the time of examination. HEENT: Head is atraumatic, normocephalic. Pupils are equal, round, and reactive to light. Sclerae anicteric. Conjunctivae are clear. Mucus membranes of the mouth are moist. Neck is supple. RESPIRATORY: Clear to ausculation. No wheezes, rales, or rhonchi. No use of accessory muscles. Patient maintaining oxygen saturation greater than 92%. No chest wall tenderness is noted on palpation or with deep breathing. CARDIOVASCULAR: Regular rate and rhythm. S1 and S2 noted. No systolic or diastolic murmur auscultated. No JVD noted. No S3 or S4 noted. GASTROINTESTINAL: NG tube present to LIS with bilious drainage noted. No distention noted. Abdomen soft and round. Bowel sounds auscultated x 4 quadrants. Pain and tenderness noted upon palpation. INTEGUMENTARY: No cyanosis. No jaundice. No rashes noted. No cellulitis noted. EXTREMITIES: 2+ peripheral pulses. No evidence of peripheral edema. No calf tenderness noted. NEUROLOGIC: Cranial nerves II-XII intact. PSYCHIATRIC: Awake, alert, and oriented X 3. Appropriate affect. Intact judgement and insight. - Labs CBC & Chem 7: 08/13/17 08:01 08/13/17 08:01 Labs: Abnormal Lab Results - Last 24 Hours (Table) 08/12/17 08/12/17 08/12/17 Range/Units 13:13 13:13 13:13 WBC 14.8 H (3.8-10.6) k/uL RBC (4.30-5.90) m/uL Hgb (13.0-17.5) gm/dL Hct (39.0-53.0) % Neutrophils # 13.1 H (1.3-7.7) k/uL Lymphocytes # 0.5 L (1.0-4.8) k/uL Monocytes # 1.1 H (0-1.0) k/uL Sodium 135 L (137-145) mmol/L Potassium (3.5-5.1) mmol/L Carbon Dioxide 21 L (22-30) mmol/L Creatinine 0.50 L (0.66-1.25) mg/dL Glucose 143 H (74-99) mg/dL Calcium (8.4-10.2) mg/dL Alkaline Phosphatase 202 H (38-126) U/L Total Creatine Kinase 51 L (55-170) U/L Amylase 145 H (30-110) U/L Lipase 2108 H (23-300) U/L Urine Protein (Negative) Urine Ketones (Negative) Urine Blood (Negative) Ur Leukocyte Esterase (Negative) Urine RBC (0-5) /hpf Urine WBC (0-5) /hpf Urine Bacteria (None) /hpf Urine Mucus (None) /hpf Urine Yeast (Budding) (None) /hpf 08/12/17 08/12/17 08/13/17 Range/Units 17:20 19:35 08:01 WBC 13.5 H (3.8-10.6) k/uL RBC 3.96 L 3.95 L (4.30-5.90) m/uL Hgb 12.2 L 12.1 L (13.0-17.5) gm/dL Hct 37.3 L 38.1 L (39.0-53.0) % Neutrophils # (1.3-7.7) k/uL Lymphocytes # (1.0-4.8) k/uL Monocytes # (0-1.0) k/uL Sodium (137-145) mmol/L Potassium (3.5-5.1) mmol/L Carbon Dioxide (22-30) mmol/L Creatinine (0.66-1.25) mg/dL Glucose (74-99) mg/dL Calcium (8.4-10.2) mg/dL Alkaline Phosphatase (38-126) U/L Total Creatine Kinase (55-170) U/L Amylase (30-110) U/L Lipase (23-300) U/L Urine Protein Trace H (Negative) Urine Ketones 1+ H (Negative) Urine Blood Small H (Negative) Ur Leukocyte Esterase Large H (Negative) Urine RBC 32 H (0-5) /hpf Urine WBC 21 H (0-5) /hpf Urine Bacteria Occasional H (None) /hpf Urine Mucus Occasional H (None) /hpf Urine Yeast (Budding) Many H (None) /hpf 08/13/17 Range/Units 08:01 WBC (3.8-10.6) k/uL RBC (4.30-5.90) m/uL Hgb (13.0-17.5) gm/dL Hct (39.0-53.0) % Neutrophils # (1.3-7.7) k/uL Lymphocytes # (1.0-4.8) k/uL Monocytes # (0-1.0) k/uL Sodium (137-145) mmol/L Potassium 3.1 L (3.5-5.1) mmol/L Carbon Dioxide (22-30) mmol/L Creatinine (0.66-1.25) mg/dL Glucose (74-99) mg/dL Calcium 8.3 L (8.4-10.2) mg/dL Alkaline Phosphatase (38-126) U/L Total Creatine Kinase (55-170) U/L Amylase (30-110) U/L Lipase 424 H (23-300) U/L Urine Protein (Negative) Urine Ketones (Negative) Urine Blood (Negative) Ur Leukocyte Esterase (Negative) Urine RBC (0-5) /hpf Urine WBC (0-5) /hpf Urine Bacteria (None) /hpf Urine Mucus (None) /hpf Urine Yeast (Budding) (None) /hpf Microbiology - Last 24 Hours (Table) 08/12/17 17:20 Urine Culture - Preliminary Urine,Catheterized Assessment and Plan Plan: ASSESSMENT: Acute on chronic pancreatitis secondary to ETOH History of alcohol abuse Hematemesis, gastric fluid positive for occult blood, r/o upper GI bleed Chest pain, present on admission, acute coronary syndrome ruled out, likely costochondritis Chronic urinary retention requiring self cath Asymptomatic bacteriuria, await urine culture results Gastroesophageal reflux disease Chronic low back pain Anxiety, unspecified Depression, unspecified Nicotine dependence, patient is a current cigarette smoker Hypokalemia PLAN: GI on consult. Appreciate recommendations and input IV fluids at 125 mL an hour NPO. Continue to hold home medications CIWA protocol Replace potassium per protocol Give potassium via NG. Clamp for 1 hour after administration Add 20 mEq potassium to IV fluids 2 g magnesium IV 1 Await results of urine culture Monitor labs GI prophylaxis: Protonix 40 mg IVP BID DVT prophylaxis: Venodyne's to bilateral lower extremities Monitor vital signs and address as appropriate Discharge planning: Patient to return home when stable Further recommendations pending patient's course Nurse practitioner note has been reviewed by physician. Signing provider agrees with the documented findings, assessment, and plan of care.
[2017-08-13] MEDS ORDERED: Potassium Replacement Protocol 1 EACH MISC MISCELLANE PRN (10:23)
[2017-08-13] MEDS: MAGNESIUM SULFATE-D5W PMX 1 GM in DEXTROSE/WATER 1 100ML.BAG IVPB SCH ×2 (11:07→12:57)
[2017-08-13] MEDS: POTASSIUM BICARBONATE/CIT AC 20 MEQ TABLET.EFF NG-TUBE SCH ×2 (11:08→11:49)
[2017-08-13] MEDS: 0.9% NACL WITH KCL 20 MEQ/L 1,000 ML IV SCH ×2 (11:10→18:39)
[2017-08-13] MEDS: THIAMINE 100 MG TAB PO SCH ×2 (11:20→16:38)
--- NOTE | 2017-08-13 18:20 | CONS ---
CONSULTATION DATE OF SERVICE: August 13, 2017. REASON FOR CONSULTATION: Acute pancreatitis. HISTORY OF PRESENT ILLNESS: The patient is a 46-year-old white male who was admitted to the hospital with abdominal pain, nausea, vomiting, and was subsequently noted to have elevated LFTs, amylase and lipase consistent with acute pancreatitis. He has history of heavy alcohol abuse in the past and had 2 episodes of acute pancreatitis, this being his 3rd episode. The patient used to drink at least a case of beer a day for almost 20 years. He quit drinking about 2 years ago. Lately he has been drinking on and off, but not as intense. This morning he is feeling much better. Epigastric pain is improving. He is on a clear liquid diet, tolerating well. He had an NG tube that was removed this afternoon. PAST MEDICAL HISTORY: Significant for GERD, hyperlipidemia, heavy alcohol abuse with chronic relapsing pancreatitis. PAST SURGICAL HISTORY: Cholecystectomy, back surgery, kidney stones, spinal cord stimulator, bilateral knee arthroscopy. MEDICATIONS: At home, Lipitor, Flomax, Ativan, Ultram, Theragran, Symbicort, vitamin D3, Prilosec, vitamin B1, Cymbalta, Librium, Neurontin, Zofran, Prilosec, folic acid. ALLERGIES: None. SOCIAL HISTORY: History of smoking, heavy alcohol abuse in the past, which he quit drinking about 2 years ago. REVIEW OF SYSTEMS: Cardiopulmonary: No chest pain or shortness of breath. Genitourinary: No dysuria hematuria. Musculoskeletal unremarkable. Skin unremarkable. Endocrine unremarkable. EXAMINATION: HEENT: Unremarkable. Conjunctivae pink. Sclerae anicteric. Oral cavity no lesions. Neck: No jugular venous distention or lymph node enlargement. Chest was clear to auscultation. HEART: Regular rate and rhythm. ABDOMEN: Soft. There was mild tenderness in the epigastric area. Bowel sounds are positive. No organomegaly. Extremities: No pedal edema. Skin no rashes. NEUROLOGIC: Alert and oriented x3. No focal deficits. Her vital signs are temperature was 99, pulse rate 115, blood pressure 127/77. LAB: Done at the time of admission to the hospital, WBC 14.8, hemoglobin 13.6, platelets are normal. PT/INR normal. ALT, AST, T-bilirubin and alkaline phosphatase are normal. Amylase was 145, lipase is 2108. Today, WBC 8.7, hemoglobin 12.1, platelets are normal. Amylase 51, lipase is 424. IMPRESSION: 1. This is a patient with history of heavy alcohol abuse in the past with acute recurrent pancreatitis (chronic relapsing pancreatitis) admitted to the hospital with abdominal pain, nausea, vomiting of 2 days duration noted to have elevated amylase and lipase, which have significantly improved on a clear liquid diet, tolerating well. 2. History of alcohol abuse in the past. RECOMMENDATIONS: 1. Advance to low-fat diet. 2. Pain medications as needed. 3. The patient can be discharged home tomorrow with outpatient follow up in 2-3 weeks. Thank you for this consultation. MMODL / IJN: [id number] /
[2017-08-14] MEDS: MORPHINE SULFATE/PF 10MG/10ML VL IVP PRN ×3 (03:08→11:19)
[2017-08-14] MEDS: 0.9% NACL WITH KCL 20 MEQ/L 1,000 ML IV SCH (05:55)
[2017-08-14 07:02] VITALS: BP 140/86; TEMP 98.8
[2017-08-14] MEDS: IPRATROPIUM-ALBUTEROL 3 ML NEB INHALATION SCH (07:15)
[2017-08-14 07:26] VITALS: PULSE 80
[2017-08-14] MEDS: NICOTINE 21MG/24HR PATCH TRANSDERM SCH (07:48)
[2017-08-14] MEDS: PANTOPRAZOLE 40 MG/10 ML VIAL IV SCH (07:48)
[2017-08-14 09:17] LABS: Basophils % (A) 0 %; Eosinophils # (A) 0.1 k/uL (0-0.7); Eosinophils % (A) 1 %; HCT 37.5 % (39.0-53.0); HGB 12.7 gm/dL (13.0-17.5); Lymphocytes % (A) 11 %; MCH 32.4 pg (25.0-35.0); MCHC 33.8 g/dL (31.0-37.0); MCV 95.8 fL (80.0-100.0); Mean Platelet Volume 7.2; Monocytes # (A) 0.6 k/uL (0-1.0); Monocytes % (A) 7 %; Neutrophils % (A) 79 %; Platelet Count 314 k/uL (150-450); RBC 3.92 m/uL (4.30-5.90); RDW 13.5 % (11.5-15.5); WBC 8.9 k/uL (3.8-10.6)
[2017-08-14 09:37] LABS: ALT 20 U/L (21-72); AST 17 U/L (17-59); Albumin 2.9 g/dL (3.5-5.0); Alkaline Phosphatase 159 U/L (38-126); Amylase 43 U/L (30-110); Anion Gap 14 mmol/L; Blood Urea Nitrogen 5 mg/dL (9-20); Calcium 8.6 mg/dL (8.4-10.2); Carbon Dioxide 22 mmol/L (22-30); Chloride 101 mmol/L (98-107); Glucose 83 mg/dL (74-99); Lipase 193 U/L (23-300); Potassium 3.4 mmol/L (3.5-5.1); Sodium 137 mmol/L (137-145); Total Bilirubin 0.6 mg/dL (0.2-1.3); Total Protein 5.8 g/dL (6.3-8.2)
[2017-08-14] MEDS ORDERED: POTASSIUM CHLORIDE ER 20 MEQ TAB.ER PO STA (09:45)
[2017-08-14] MEDS: THIAMINE 100 MG TAB PO SCH (11:19)
--- NOTE | 2017-08-14 11:34 | P.DS ---
Providers Date of admission: 08/12/17 14:40 Expected date of discharge: 08/14/17 Attending physician: Carrillo Leo Consults: 08/12/17 14:35 Consult Physician Urgent Consulting Provider: Phillip Martinez Consult Reason/Comments: Pancreatitis and upper GI bleed Do you want consulting provider notified?: Yes Primary care physician: [facility] Course: 46-year-old male who presented to the emergency room on 08/12/2017 with a chief complaint of abdominal pain and vomiting. The patient has a history of alcoholism and reports drinking beer the previous day. Reports drinking 2 beers. The patient was also complaining of midsternal chest pain that intensifies with certain movements and deep breaths. The patient had an episode of black colored emesis in the emergency room with a tentative burgundy color. Emesis was positive for occult blood. Serum alcohol less than 10. The patient was admitted to the hospital under the care of Dr. Trejo/Felipa. Consultations were placed to GI. The patient has a history of chronic urinary retention and self caths. The patient denied any urinary symptoms or complaints. The patient's urinalysis was positive for leukocyte esterase. Urine culture was ordered and was positive for coagulase-negative staph, likely colonization per Dr. Leo. No antibiotic treatment necessary per Dr. Leo. The patient received IV hydration during hospitalization. His abdominal pain has resolved. His amylase and lipase are within normal limits. The patient was started on a clear liquid diet and advanced as tolerated. He is currently tolerating a low-fat diet. Patient has had no episodes of nausea or vomiting. No further episodes of hematemesis. The patient had an NG tube to low intermittent suction which was placed in the emergency room. This has since been discontinued. The patient was evaluated by Dr. Kellogg who has cleared the patient for discharge and has not recommended any further interventions during hospitalization. The patient is to follow up with GI in 2 weeks. The patient was deemed stable for discharge per Dr. Leo. He is to follow up on an outpatient basis. The patient was encouraged to abstain from alcohol. DISCHARGE DIAGNOSIS: Acute on chronic pancreatitis secondary to ETOH, improved at time of discharge History of alcohol abuse Hematemesis, gastric fluid positive for occult blood, suspect esophageal varices secondary to history of alcohol abuse, GI recommends follow-up on an outpatient basis Chest pain, present on admission, acute coronary syndrome ruled out, likely costochondritis Chronic urinary retention requiring self cath Asymptomatic bacteriuria, urine culture positive for coagulase-negative staph, likely colonization Gastroesophageal reflux disease Chronic low back pain Anxiety, unspecified Depression, unspecified Nicotine dependence, patient is a current cigarette smoker Hypokalemia, improved with supplementation Nurse practitioner note has been reviewed by physician. Signing provider agrees with the documented findings, assessment, and plan of care. Patient Condition at Discharge: Stable Plan - Discharge Summary Discharge Rx Participant: No New Discharge Prescriptions: Continue RX: Folic Acid 1 mg PO DAILY #30 tablet RX: Atorvastatin [Lipitor] 10 mg PO HS RX: Tamsulosin HCl [Flomax] 0.4 mg PO DAILY RX: LORazepam [Ativan] 0.5 mg PO TID PRN #30 tab PRN Reason: Anxiety RX: traMADol HCL [Ultram] 50 mg PO Q6H PRN PRN Reason: Pain RX: Multivitamins, Thera [Multivitamin (formulary)] 1 tab PO DAILY RX: Albuterol Inhaler [Ventolin Hfa Inhaler] 2 puff INHALATION RT-Q4H PRN PRN Reason: Shortness Of Breath RX: traZODone HCL 50 mg PO HS RX: Budesonide/Formoterol Fumarate [Symbicort 80-4.5 Mcg Inhaler] 1 puff INHALATION RT-BID RX: Cholecalciferol (Vitamin D3) [Vitamin D3] 2,000 unit PO DAILY RX: Omeprazole [PriLOSEC] 40 mg PO BID #60 capsule.dr RX: Thiamine [Vitamin B-1] 100 mg PO DAILY #30 tablet RX: Gabapentin [Neurontin] 400 mg PO TID RX: chlordiazePOXIDE HCl [Librium] See Taper PO DIRECTED RX: DULoxetine HCL [Cymbalta] 60 mg PO DAILY RX: Acetaminophen-Codeine 300-30mg [Tylenol w/codeine #3] 1 tab PO Q4H PRN # 14 tablet PRN Reason: pain RX: Ondansetron Odt [Zofran ODT] 4 mg PO Q8HR PRN #20 tab PRN Reason: Nausea Discharge Medication List RX: Folic Acid 1 mg PO DAILY #30 tablet 07/15/15 [Rx] RX: Atorvastatin [Lipitor] 10 mg PO HS 09/27/15 [History] RX: Tamsulosin HCl [Flomax] 0.4 mg PO DAILY 12/18/16 [History] RX: LORazepam [Ativan] 0.5 mg PO TID PRN #30 tab 12/22/16 [Rx] RX: traMADol HCL [Ultram] 50 mg PO Q6H PRN 02/22/17 [History] RX: Albuterol Inhaler [Ventolin Hfa Inhaler] 2 puff INHALATION RT-Q4H PRN [History] RX: Multivitamins, Thera [Multivitamin (formulary)] 1 tab PO DAILY 03/01/17 [ History] RX: Budesonide/Formoterol Fumarate [Symbicort 80-4.5 Mcg Inhaler] 1 puff INHALATION RT-BID 04/04/17 [History] RX: Cholecalciferol (Vitamin D3) [Vitamin D3] 2,000 unit PO DAILY 04/04/17 [ History] RX: traZODone HCL 50 mg PO HS 04/04/17 [History] RX: Omeprazole [PriLOSEC] 40 mg PO BID #60 capsule.dr 05/16/17 [Rx] RX: Thiamine [Vitamin B-1] 100 mg PO DAILY #30 tablet 05/16/17 [Rx] RX: Acetaminophen-Codeine 300-30mg [Tylenol w/codeine #3] 1 tab PO Q4H PRN #14 tablet 07/18/17 [Rx] RX: DULoxetine HCL [Cymbalta] 60 mg PO DAILY 07/18/17 [History] RX: Gabapentin [Neurontin] 400 mg PO TID 07/18/17 [History] RX: chlordiazePOXIDE HCl [Librium] See Taper PO DIRECTED 07/18/17 [History] RX: Ondansetron Odt [Zofran ODT] 4 mg PO Q8HR PRN #20 tab 07/20/17 [Rx] Follow up Appointment(s)/Referral(s): Carrillo Leo Jr, DO [Primary Care Provider] - 1 Week Consuelo Kellogg MD [STAFF PHYSICIAN] - 2 Weeks Patient Instructions/Handouts: How to Stop Smoking (DC), Pancreatitis (DC) Discharge Disposition: HOME SELF-CARE
== END 2017-08-14 12:19 | disposition home or self-care (01) | DRG 438 ==
LOC: EC 11:44 → 4MS4W 14:40
PROVIDERS: ADMIT Family Medicine; ATTEND Family Medicine
DX: K85.20 Alcohol induced acute pancreatitis without necrosis or infection (principal); I85.11 Secondary esophageal varices with bleeding; E78.5 Hyperlipidemia, unspecified; K86.0 Alcohol-induced chronic pancreatitis; E86.0 Dehydration; E87.6 Hypokalemia; F10.20 Alcohol dependence, uncomplicated; F17.210 Nicotine dependence, cigarettes, uncomplicated; F32.9 Major depressive disorder, single episode, unspecified; F41.9 Anxiety disorder, unspecified; G89.29 Other chronic pain; K21.9 Gastro-esophageal reflux disease without esophagitis; M94.0 Chondrocostal junction syndrome [Tietze]; Z79.899 Other long term (current) drug therapy; Z82.49 Family history of ischemic heart disease and other diseases of the circulatory system; Z83.3 Family history of diabetes mellitus; Z87.442 Personal history of urinary calculi; N42.9 Disorder of prostate, unspecified; Z79.891 Long term (current) use of opiate analgesic; R33.9 Retention of urine, unspecified
CPT/HCPCS: 36415; 43753; 71046; 74018; 80048; 80053; 80320; 81001; 82150; 82271; 82550; 82553; 83690; 83735; 84484; 85025; 85027; 85610; 85730; 86850; 86900; 86901; 87077; 87086; 87186; 93005; 94640; 94760; 96361; 96374; 96375; 99285

== ENCOUNTER 2017-08-19 06:35 | Inpatient (IN) | payer MEDICARE, OTHER ==
[2017-08-19] MEDS ORDERED: ONDANSETRON 4 MG/2 ML VIAL IVP STA (07:18)
[2017-08-19] MEDS ORDERED: SODIUM CHLORIDE 0.9% 1,000 ML IV STA (07:18)
[2017-08-19] MEDS ORDERED: MORPHINE SULF 5MG/10ML VL IV STA (07:18)
[2017-08-19] MEDS ORDERED: PANTOPRAZOLE 40 MG/10 ML VIAL IVP STA (07:21)
--- NOTE | 2017-08-19 07:24 | ED ---
Chest Pain HPI - General Chief Complaint: Chest Pain Stated Complaint: Chest Pain/Abdominal Pain Time Seen by Provider: 08/19/17 07:07 Source: patient Mode of arrival: wheelchair Limitations: no limitations - History of Present Illness Initial Comments: 47 years old male planing about chest pain, chest pain started at 4:30 AM today he has no history of heart disease he said he does have a history of pancreatitis and he was admitted in the hospital when he was thrown up blood he said he has a history of liver disease, has a history of for a GI bleed Mr. hawkins pancreatitis. Also complaining about epigastric pain today been nauseous throughout twice cold sweats. No headaches no neck stiffness no fever no chills no cough no sputum no diarrhea no constipation no frequency urgency dysuria, no symptoms of TIA or CVA - Related Data Home Medications Medication Instructions Recorded Confirmed Atorvastatin [Lipitor] 10 mg PO HS 09/27/15 08/19/17 Tamsulosin HCl [Flomax] 0.4 mg PO DAILY 12/18/16 08/19/17 traMADol HCL [Ultram] 50 mg PO Q6H PRN 02/22/17 08/19/17 Albuterol Inhaler [Ventolin Hfa 2 puff INHALATION RT-Q4H PRN 03/01/17 08/19/17 Inhaler] Multivitamins, Thera [Multivitamin 1 tab PO DAILY 03/01/17 08/19/17 (formulary)] Budesonide/Formoterol Fumarate 1 puff INHALATION RT-BID 04/04/17 08/19/17 [Symbicort 80-4.5 Mcg Inhaler] Cholecalciferol (Vitamin D3) 2,000 unit PO DAILY 04/04/17 08/19/17 [Vitamin D3] traZODone HCL 50 mg PO HS 04/04/17 08/19/17 DULoxetine HCL [Cymbalta] 60 mg PO DAILY 07/18/17 08/19/17 Gabapentin [Neurontin] 400 mg PO TID 07/18/17 08/19/17 chlordiazePOXIDE HCl [Librium] 25 mg PO BID PRN 07/18/17 08/19/17 Previous Rx's Medication Instructions Recorded Folic Acid 1 mg PO DAILY #30 tablet 07/15/15 LORazepam [Ativan] 0.5 mg PO TID PRN #30 tab 12/22/16 Omeprazole [PriLOSEC] 40 mg PO BID #60 capsule. 05/16/17 Thiamine [Vitamin B-1] 100 mg PO DAILY #30 tablet 05/16/17 Acetaminophen-Codeine 300-30mg 1 tab PO Q4H PRN #14 tablet 07/18/17 [Tylenol w/codeine #3] Ondansetron Odt [Zofran ODT] 4 mg PO Q8HR PRN #20 tab 07/20/17 Allergies Allergy/AdvReac Type Severity Reaction Status Date / Time No Known Allergies Allergy Verified 08/19/17 07:36 Review of Systems ROS Statement: Those systems with pertinent positive or pertinent negative responses have been documented in the HPI. ROS Other: All systems not noted in ROS Statement are negative. Past Medical History Past Medical History: GERD/Reflux, Hyperlipidemia, Pneumonia, Prostate Disorder Additional Past Medical History / Comment(s): ETOH ABUSE, RECURRANT PANCREATITIS , ALCOHOLIC HEPATITIS, NEPHROLITHIASIS, hx of CHRONIC URINARY RETENTION DUE TO BACK PROBLEMS-SELF CATHS.UTI. CHRONIC LOW BACK PAIN. History of Any Multi-Drug Resistant Organisms: None Reported Past Surgical History: Back Surgery, Cholecystectomy, Orthopedic Surgery Additional Past Surgical History / Comment(s): Bronchoscopy, BACK surgeries with TITANIUM PLATES MILTON and CAGES, KIDNEY STONES removed per pt, SPINAL CORD STIMULATOR, ISMAEL KNEE ARTHROSCOPIES, PINKY FINGER RT HAND REATTATCHED Past Anesthesia/Blood Transfusion Reactions: No Reported Reaction Past Psychological History: Anxiety, Depression Smoking Status: Current every day smoker Past Alcohol Use History: Occasional Past Drug Use History: None Reported - Past Family History Father Family Medical History: Diabetes Mellitus Additional Family Medical History / Comment(s): Mother Family Medical History: Dementia, Hyperlipidemia, Hypertension Additional Family Medical History / Comment(s): Mother is living. General Exam - General Exam Comments Initial Comments: General: The patient is awake and alert, in no distress, and does not appear acutely ill. Skin: Skin is warm and dry and no rashes or lesions are noted. Eye: Pupils are equal, round and reactive to light, extra-ocular movements are intact; there is normal conjunctiva bilaterally. Ears, nose, mouth and throat: There are moist mucous membranes and no oral lesions. Neck: The neck is supple, there is no tenderness Cardiovascular: There is a regular rate and rhythm. No murmur, rub or gallop is appreciated. Respiratory: To auscultation bilateral, no wheezing no rhonchi no distress respiratory don noticed Gastrointestinal: Tender in epigastric area positive bowel sounds no guarding no rebounds Back: There is no tenderness to palpation in the midline. There is no obvious deformity. Musculoskeletal: Normal ROM, no tenderness, There is no pedal edema. There is no calf tenderness or swelling. No cords were appreciated. Neurological: CN II-XII intact, Cranial nerves III through XII are intact. There are no obvious motor or sensory deficits. Coordination appears grossly intact. Speech is normal. Psychiatric: Cooperative, appropriate mood & affect, normal judgment. Limitations: no limitations Course Vital Signs 08/19/17 08/19/17 08/19/17 06:36 07:40 08:36 Temperature 97.5 F L Pulse Rate 94 94 96 Respiratory 16 18 18 Rate Blood Pressure 133/80 131/85 134/86 O2 Sat by Pulse 100 100 100 Oximetry 08/19/17 08/19/17 09:10 10:29 Temperature 98.4 F 98.0 F Pulse Rate 104 H 95 Respiratory 18 18 Rate Blood Pressure 148/80 126/86 O2 Sat by Pulse 100 98 Oximetry Him EKG is normal sinus rhythm ventricular rate is 92 AK interval is 154 QRS duration is 82 QT/QTc is 370/457 review of this EKG does not reveal any ST elevation or ST depression , CT abdomen and pelvis report was reviewed, noticed the findings consistent with acute pancreatitis and chronic findings on the kidney as well as Disposition Clinical Impression: Pancreatitis Disposition: ADMITTED IP TO THIS HOSP
[2017-08-19] MEDS ORDERED: METOCLOPRAMIDE 5 MG/ML 2 ML VIAL IVP STA (08:01)
[2017-08-19 08:24] LABS: Basophils % (A) 0 %; Eosinophils # (A) 0.1 k/uL (0-0.7); Eosinophils % (A) 1 %; HCT 44.4 % (39.0-53.0); Lymphocytes # (A) 1.4 k/uL (1.0-4.8); Lymphocytes % (A) 10 %; MCH 31.7 pg (25.0-35.0); MCHC 33.8 g/dL (31.0-37.0); MCV 93.8 fL (80.0-100.0); Mean Platelet Volume 6.5; Monocytes # (A) 0.5 k/uL (0-1.0); Monocytes % (A) 4 %; Neutrophils # (A) 12.4 k/uL (1.3-7.7); Neutrophils % (A) 85 %; Platelet Count 502 k/uL (150-450); RBC 4.73 m/uL (4.30-5.90); RDW 13.4 % (11.5-15.5); WBC 14.7 k/uL (3.8-10.6)
[2017-08-19 08:34] LABS: ALT 44 U/L (21-72); AST 37 U/L (17-59); Albumin 3.4 g/dL (3.5-5.0); Alkaline Phosphatase 164 U/L (38-126); Amylase 97 U/L (30-110); Anion Gap 14 mmol/L; Blood Urea Nitrogen 3 mg/dL (9-20); Calcium 9.2 mg/dL (8.4-10.2); Carbon Dioxide 21 mmol/L (22-30); Chloride 99 mmol/L (98-107); Glucose 105 mg/dL (74-99); Lipase 812 U/L (23-300); Magnesium 1.6 mg/dL (1.6-2.3); Potassium 4.4 mmol/L (3.5-5.1); Sodium 134 mmol/L (137-145); Total Bilirubin 0.3 mg/dL (0.2-1.3); Total Protein 6.6 g/dL (6.3-8.2)
[2017-08-19 08:36] LABS: Alcohol 114 mg/dL
[2017-08-19 08:44] LABS: Creatine Kinase 72 U/L (55-170)
[2017-08-19 08:57] LABS: Creatine Kinase MB 0.8 ng/mL (0.0-2.4); Troponin I <0.012 ng/mL (0.000-0.034)
[2017-08-19] MEDS ORDERED: NALOXONE 0.4 MG/ML 1 ML VIAL IV PRN (09:00)
[2017-08-19] MEDS ORDERED: chlordiazePOXIDE 25 MG CAP PO PRN (09:08)
[2017-08-19] MEDS ORDERED: LORazepam 2 MG/ML INJ IV PRN (09:10)
[2017-08-19] MEDS ORDERED: THIAMINE 100 MG/ML 2 ML VIAL IM STA (09:10)
[2017-08-19] MEDS ORDERED: RX INFO: IV CONTRAST WAS GIVEN 1 EACH MISC MISCELLANE PRN (09:17)
--- NOTE | 2017-08-19 09:17 | XR ---
EXAMINATION TYPE: XR chest 2V DATE OF EXAM: 08/19/2017 HISTORY: Chest Pain. REFERENCE: Previous study dated 08/12/2017. FINDINGS: The lungs remain clear. Pleural space are clear. The heart is not enlarged. IMPRESSION: NO ACUTE INTRATHORACIC ABNORMALITY.
[2017-08-19 09:37] LABS: Partial Thromboplastin Time 23.4 sec (22.0-30.0)
[2017-08-19] MEDS ORDERED: ONDANSETRON ODT 4 MG TAB PO PRN (10:37)
--- NOTE | 2017-08-19 10:37 | CT ---
EXAMINATION TYPE: CT abdomen pelvis w con DATE OF EXAM: 08/19/2017 REFERENCE: Previous study dated 07/07/2017. HISTORY: Pain HISTORY: Abdominal pain CT DLP: 507.5 mGy Automated exposure control for dose reduction was used. TECHNIQUE: Helical acquisition through the abdomen and pelvis was obtained following the oral ingesti on of without Oral Contrast and following intravenous administration of 100 mL of Isovue 300. The xiao a was reformatted in axial, coronal and sagittal projections. FINDINGS: Visualized portions of the lungs are clear. There is no pleural or pericardial fluid. The heart is not enlarged. There is a small hiatal hernia. Within the abdomen, the gallbladder is been removed. Liver is normal in size. The spleen is normal. Both adrenal glands are normal. There is chronic hydronephrosis and hydroureter on the left to the level of the bladder. There is del ay in excretion of contrast on the left. The right kidney appears normal. There is phlegmon surrounding the pancreas. The pancreatic duct measures approximately 4 mm. There is no drainable pseudocyst at this time. There is no significant retroperitoneal, iliac or inguinal adenopathy. The bladder is distended. There is no significant diverticular change and there is no radiographic evidence of diverticulitis. The appendix is normal. Small bowel loops are unremarkable No free fluid and no free air is seen. There is been an interpedicular fusion at L4-5 and L5-S1. No bony destructive lesion is seen. IMPRESSION: 1. FINDINGS MOST CONSISTENT WITH ACUTE PANCREATITIS. 2. SMALL HIATAL HERNIA. 3. CHRONIC LEFT-SIDED HYDRONEPHROSIS AND HYDROURETER. 4. POSTSURGICAL CHANGE.
[2017-08-19] MEDS ORDERED: SODIUM CHLORIDE 0.9% 500 ML IV ONE (10:46)
[2017-08-19] MEDS: MORPHINE SULF 5MG/10ML VL IV PRN ×3 (11:50→20:36)
[2017-08-19] MEDS: ONDANSETRON 4 MG/2 ML VIAL IVP PRN ×2 (12:21→22:40)
[2017-08-19 13:03] VITALS: BMI 23.8
[2017-08-19] MEDS: LORazepam 0.5 MG TAB PO PRN (13:07)
[2017-08-19] MEDS: SODIUM CHLORIDE 0.9% 1,000 ML IV SCH ×2 (14:14→20:30)
[2017-08-19] MEDS: Acetaminophen-Codeine 300-30mg TAB PO PRN ×2 (14:22→19:40)
[2017-08-19] MEDS: GABAPENTIN 400 MG CAP PO SCH ×2 (18:04→20:29)
[2017-08-19] MEDS: traMADol 50 MG TAB PO PRN (18:04)
[2017-08-19] MEDS: THIAMINE 100 MG TAB PO SCH (18:04)
[2017-08-19] MEDS: ATORVASTATIN 10 MG TAB PO SCH (20:29)
[2017-08-19] MEDS: traZODone HCL 50 MG TAB PO SCH (20:29)
[2017-08-19] MEDS: ALBUTEROL NEBULIZED 2.5 MG/3 ML INHALATION PRN (20:30)
[2017-08-19] MEDS: SYMBICORT 80-4.5 MCG INHALER INHALATION SCH (20:30)
[2017-08-19] MEDS ORDERED: NON-FORMULARY DRUG (Omeprazole 40 MG) PO SCH (21:00)
[2017-08-20] MEDS: MORPHINE SULF 5MG/10ML VL IV PRN ×3 (00:36→08:46)
[2017-08-20] MEDS: traMADol 50 MG TAB PO PRN ×3 (02:01→16:44)
[2017-08-20] MEDS: Acetaminophen-Codeine 300-30mg TAB PO PRN ×5 (07:32→23:33)
[2017-08-20] MEDS: TAMSULOSIN 0.4 MG CAP.ER.24H PO SCH (07:33)
[2017-08-20] MEDS: GABAPENTIN 400 MG CAP PO SCH ×3 (07:33→21:03)
[2017-08-20] MEDS: SODIUM CHLORIDE 0.9% 1,000 ML IV SCH ×2 (07:34→15:31)
[2017-08-20] MEDS: DULoxetine HCL 60 MG CAPSULE.DR PO SCH (07:34)
[2017-08-20] MEDS: SYMBICORT 80-4.5 MCG INHALER INHALATION SCH ×2 (08:48→21:27)
[2017-08-20] MEDS ORDERED: PANTOPRAZOLE 40 MG/10 ML VIAL IV SCH (09:00)
[2017-08-20] MEDS ORDERED: THIAMINE 100 MG TAB PO SCH (09:00)
--- NOTE | 2017-08-20 09:58 | P.HPIM ---
History of Present Illness H&P Date: 08/20/17 Chief Complaint: Chest pain and ongoing pancreatitis This is a 47-year-old white male who I met once previously. He is a new patient to our practice. Seen Dr. Leo twice. He is a history of acute on chronic pancreatitis. He is an alcoholic and continues to drink. His last visit he had GI bleeding with hematemesis. He denies any hematemesis at this visit, just ongoing abdominal pain. Patient states is drinking all started after his lower back surgery. He has not been in rehabilitation for the past year and a half. He was last at [facility]. Review of Systems All systems: negative Past Medical History Past Medical History: GERD/Reflux, Hyperlipidemia, Pneumonia, Prostate Disorder Additional Past Medical History / Comment(s): ETOH ABUSE, RECURRANT PANCREATITIS , ALCOHOLIC HEPATITIS, NEPHROLITHIASIS, hx of CHRONIC URINARY RETENTION DUE TO BACK PROBLEMS-SELF CATHS.UTI. CHRONIC LOW BACK PAIN. History of Any Multi-Drug Resistant Organisms: None Reported Past Surgical History: Back Surgery, Cholecystectomy, Orthopedic Surgery Additional Past Surgical History / Comment(s): Bronchoscopy, BACK surgeries with TITANIUM PLATES MILTON and CAGES, KIDNEY STONES removed per pt, SPINAL CORD STIMULATOR, ISMAEL KNEE ARTHROSCOPIES, PINKY FINGER RT HAND REATTATCHED Past Anesthesia/Blood Transfusion Reactions: No Reported Reaction Past Psychological History: Anxiety, Depression Additional Psychological History / Comment(s): PT LIVES AT HOME WITH in a 2 story home that has 3 porch steps/7 steps to 2nd floor.. 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 NO SERVICE.. uses either walker or w/c also has shower chair and raised toilet seat. He does not drive, his can drive. Smoking Status: Heavy tobacco smoker Past Alcohol Use History: Occasional Additional Past Alcohol Use History / Comment(s): Smokes 1-2 packs per day; Patient reports drinking 1-2 beers daily in the evening. Past Drug Use History: None Reported Additional Drug Use History / Comment(s): Patient reports that he has not used Marijuana in 12 months - Past Family History Father Family Medical History: Diabetes Mellitus Additional Family Medical History / Comment(s): Mother Family Medical History: Dementia, Hyperlipidemia, Hypertension Additional Family Medical History / Comment(s): Mother is living. Medications and Allergies Home Medications Medication Instructions Recorded Confirmed Type Folic Acid 1 mg PO DAILY #30 tablet 02/25/16 04/01/18 Rx Atorvastatin [Lipitor] 10 mg PO HS 09/27/15 08/19/17 History Tamsulosin HCl [Flomax] 0.4 mg PO DAILY 12/18/16 08/19/17 History LORazepam [Ativan] 0.5 mg PO TID PRN #30 tab 12/22/16 08/19/17 Rx traMADol HCL [Ultram] 50 mg PO Q6H PRN 02/22/17 08/19/17 History Albuterol Inhaler [Ventolin Hfa 2 puff INHALATION RT-Q4H PRN 03/01/17 08/19/17 History Inhaler] Multivitamins, Thera [Multivitamin 1 tab PO DAILY 03/01/17 08/19/17 History (formulary)] Budesonide/Formoterol Fumarate 1 puff INHALATION RT-BID 04/04/17 08/19/17 History [Symbicort 80-4.5 Mcg Inhaler] Cholecalciferol (Vitamin D3) 2,000 unit PO DAILY 04/04/17 08/19/17 History [Vitamin D3] traZODone HCL 50 mg PO HS 04/04/17 08/19/17 History Omeprazole [PriLOSEC] 40 mg PO BID #60 capsule. 05/16/17 08/19/17 Rx Thiamine [Vitamin B-1] 100 mg PO DAILY #30 tablet 05/16/17 08/19/17 Rx Acetaminophen-Codeine 300-30mg 1 tab PO Q4H PRN #14 tablet 07/18/17 08/19/17 Rx [Tylenol w/codeine #3] DULoxetine HCL [Cymbalta] 60 mg PO DAILY 07/18/17 08/19/17 History Gabapentin [Neurontin] 400 mg PO TID 07/18/17 08/19/17 History chlordiazePOXIDE HCl [Librium] 25 mg PO BID PRN 07/18/17 08/19/17 History Ondansetron Odt [Zofran ODT] 4 mg PO Q8HR PRN #20 tab 07/20/17 08/19/17 Rx Allergies Allergy/AdvReac Type Severity Reaction Status Date / Time No Known Allergies Allergy Verified 08/19/17 07:36 Physical Exam Vitals: Vital Signs Temp Pulse Pulse Resp BP BP Pulse Ox 08/20/17 07:00 98.3 F 89 18 151/90 98 08/19/17 22:48 97.9 F 106 H 20 131/79 96 08/19/17 20:41 78 08/19/17 20:30 84 08/19/17 14:31 98.6 F 92 16 161/82 97 08/19/17 11:10 98.1 F 102 H 18 152/93 100 08/19/17 10:29 98.0 F 95 18 126/86 98 Intake and Output 08/19/17 08/20/17 08/20/17 22:59 06:59 14:59 Intake Total 325 800 240 Balance 325 800 240 Intake: Oral 325 800 240 Other: # Voids 1 0 Weight 67.132 kg GENERAL: Fatigued, thin and in minimal distress. HEAD: Atraumatic, normocephalic. EYES: Pupils equal round and reactive to light, extraocular movements intact, sclera anicteric, conjunctiva are normal. ENT:nares patent, oropharynx clear without exudates. Moist mucous membranes. NECK: Normal range of motion, supple without lymphadenopathy or JVD, no thyromegaly LUNGS: Breath sounds clear to auscultation bilaterally and equal. No wheezes rales or rhonchi. HEART: Regular rate and rhythm without murmurs, rubs or gallops.S1S2 Normal ABDOMEN: Soft, midepigastric pain to palpation normoactive bowel sounds. No guarding, no rebound. No masses appreciated. EXTREMITIES: Normal range of motion, no pitting or edema. No clubbing or cyanosis. NEUROLOGICAL: Cranial nerves II through XII grossly intact. Normal speech, normal gait. PSYCH: Suspected depressed mood, normal affect. SKIN: Warm, Dry, normal turgor, no rashes or lesions noted. Results CBC & Chem 7: 08/19/17 08:06 08/19/17 08:06 CT scan - abdomen: report reviewed Thrombosis Risk Factor Assmnt - DVT/VTE Prophylaxis DVT/VTE Prophylaxis: Mechanical Prophylaxis ordered - Choose All That Apply Any of the Below Risk Factors Present?: Yes Each Factor Represents 1 point: Age 41-60 years Other Risk Factors: No Other congenital or acquired thrombophilia - If yes, enter type in comment: No Thrombosis Risk Factor Assessment Total Risk Factor Score: 1 Thrombosis Risk Factor Assessment Level: Low Risk Assessment and Plan Plan: Acute on chronic pancreatitis secondary to ETOH,: We will plan I discharged patient for rehabilitation once he is stable. We'll consult GI., Lipase 812, amylase 97 alcohol abuse: As above Recent Hematemesis: consult GI Chronic urinary retention requiring self cath Chronic low back pain is for surgical repair: We'll monitor Anxiety/ Depression : Consult psych for evaluation recommendations to help break the chain. Recurrent hospital admissions Nicotine dependence, patient is a current cigarette smoker: Offered nicotine patches GI prophylaxis/GERD: Continue pantoprazole DVT prophylaxis: SCDs We'll plan on him going to some, rehabilitation facility for his alcoholism. I will wait on consult recommendations. He will be reevaluated in the next 24 hours.
[2017-08-20] MEDS: NICOTINE 14MG/24HR PATCH TRANSDERM SCH (10:07)
[2017-08-20] MEDS: MULTIVITAMINS, THERA 1 EACH TAB PO SCH (11:38)
[2017-08-20] MEDS: FOLIC ACID 1 MG TAB PO SCH (11:38)
[2017-08-20] MEDS: CHOLECALCIFEROL 1,000 UNIT TAB PO SCH (11:38)
[2017-08-20] MEDS: THIAMINE 100 MG TAB PO SCH ×2 (13:31→15:31)
--- NOTE | 2017-08-20 16:25 | P.CN ---
Psychiatric Consult - . Consult date: 08/20/17 Consult:: 08/20/17 16:11 Identification: Patient is a 47-year-old male presented to the hospital complaining of abdominal pain. Reason for Consult: Consult was requested for alcoholism History of Present Illness: Patient's chart was reviewed, the patient was seen and interviewed in his room no family members were present. Patient states he presented to the emergency room with abdominal pain. Patient states he's been drinking 2 cans of beer a day for some time. Patient states that year ago he was drinking 18 cans of beer a day and a half of the fifth of liquor. Patient states that he was at [facility] about a year ago and was sober for 2 months after he was discharged. Patient is unable to tell me why he restarted using alcohol and states that he had no outpatient follow-up after discharge and did not attend AA meetings after discharge from [facility]. Patient is also taking Cymbalta 60 mg he states for both depression and pain as well as trazodone 50 mg at bedtime for sleep. Patient also has Ativan 0.5 mg to use as needed at home patient states he uses this daily at night for sleep. Patient reports to me that he has never had any suicidal thoughts and has no history of suicide attempts. He also reports that his sleep has been problematic secondary to his back pain. Patient states that he drank heavily after his back surgery in 2010 as he also lost his job at that time. Patient reports no seizures when he is been withdrawing from alcohol, he does not endorse any auditory or visual hallucinations and states that he is not feeling paranoid nor has he been in the past. Patient states that he is never had suicidal thoughts and has no history of suicide attempts. Patient is unable to tell me why he has started drinking again after his discharge from [facility]. Patient reports that he has been hospitalized for pancreatitis on at least 3 occasions and recently had an upper GI bleed where he was also hospitalized. Patient states that he was started on the Cymbalta and trazodone by his primary care physician for depression as he wasn't happy as wasn't sleeping, but this was all in conjunction with his use of alcohol. Past Psychiatric History: Patient denies any prior psychiatric inpatient treatment and states he is been at [facility] once in the past about a year ago and was sober for 2 months afterwards. Patient is currently taking trazodone 50 mg at bedtime, Cymbalta 60 mg in the day and was using Ativan 0.5 mg on a nightly basis. 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 Patient also has a history of renal calculi and a recent upper GI bleed. Family History: patient denies any history of psychiatric or alcohol and drug use in the family. He states a maternal cousin did complete suicide Social History: patient was born and raised in [place]. He states that his parents were never and he was raised by his stepfather and his mother when he was quite young. He states that his father is . He states that he has not had any contact with his stepfather since his release from shelter. Patient has 3 brothers and 1 sister all of whom are older. Patient has no contact with them. Patient quit high school after the 11th grade and began working. 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 Patient has been twice. He and his first had 2 children, is been to his second for 21 years and they've a 21-year-old daughter. Currently he is living with his . He denies any abuse history. 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 Substance Use History: patient states he began using alcohol the age of 19 and began drinking on a regular basis at that time. He states he began using alcohol more heavily after his back surgery which she described as at least 18 cans of beer a day and a fifth of liquor. Patient denies any IV drug use and any other drug use history. Legal History: patient denies any legal history Mental status: Appearance/Attitude: Patient is lying in a hospital bed in no acute distress, he makes good eye contact and is cooperative. Behavior: Patient does not display any psychomotor agitation or retardation. Speech/Language: Patient's speech is spontaneous and of normal volume and rhythm and he is coherent. Thought Process: Patient is goal-directed there is no evidence of loose association or flight of ideas Thought Content: Patient denies auditory or visual hallucinations and no delusions or paranoid ideation were elicited. Patient states that he hasn't been sleeping well at night using both trazodone and Ativan, states that he has a lot of pain and is not driving due to loss of sensation in his legs and so has limited way to get around and this is the reason he gave me for not attending AA meetings. Suicidal/Homicidal Ideation: Patient denies any current suicidal or homicidal ideation Sensorium/Cognition: Patient is alert and oriented to person, place, and time and his recent and remote memory are grossly intact. Mood/Affect: Patient's mood is pleasant and his affect is appropriate. Insight/Judgment: Patient's insight and judgment are fair Assessment: consultation was requested secondary to the patient's continued use of alcohol, complications of pancreatitis and an upper GI bleed. Patient was recently at [facility] a year ago and was sober for 2 months after discharge and has been drinking since that time. Patient presents this time with abdominal pain and states he's been using 2 cans of beer a day with no liquor. Patient is also been treated with Cymbalta for depression and trazodone for difficulty sleeping. Patient states that his sleep is not good and he also uses Ativan 0.5 mg to assist with his sleep. Patient did not attend AA meetings after his discharge from [facility]. 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 I had a long discussion with the patient regarding the fact that his Cymbalta and trazodone will be ineffective as long as he continues to use alcohol with them. I also reviewed with the patient the long-term complications from continued alcohol use. I would recommend that the patient not be given any Ativan on discharge secondary to his taking opiate pain medication as well as having an alcohol use disorder. I encouraged the patient to consider outpatient or inpatient rehab programs as well as encourage the patient to attend AA meetings. Patient does not meet criteria for an inpatient psychiatric hospitalization at this time. Patient can continue on cymbalta 60mg qam and trazodone 50mg qhs, and i reviewed with the patient that his sleep will be disrupted as long as he continues to use alcohol. I will sign off the case
[2017-08-20] MEDS: traZODone HCL 50 MG TAB PO SCH (20:04)
[2017-08-20] MEDS: ATORVASTATIN 10 MG TAB PO SCH (20:04)
[2017-08-20] MEDS: ONDANSETRON 4 MG/2 ML VIAL IVP PRN (20:06)
[2017-08-20] MEDS: LORazepam 0.5 MG TAB PO PRN (21:07)
[2017-08-21] MEDS: SODIUM CHLORIDE 0.9% 1,000 ML IV SCH ×2 (02:47→11:55)
[2017-08-21] MEDS: traMADol 50 MG TAB PO PRN (02:47)
[2017-08-21] MEDS: ONDANSETRON 4 MG/2 ML VIAL IVP PRN ×3 (04:42→21:07)
[2017-08-21] MEDS: Acetaminophen-Codeine 300-30mg TAB PO PRN ×2 (04:42→09:22)
[2017-08-21 08:03] LABS: Basophils % (A) 0 %; Eosinophils # (A) 0.1 k/uL (0-0.7); Eosinophils % (A) 1 %; HCT 36.8 % (39.0-53.0); HGB 12.1 gm/dL (13.0-17.5); Lymphocytes # (A) 1.2 k/uL (1.0-4.8); Lymphocytes % (A) 12 %; MCH 31.3 pg (25.0-35.0); MCHC 32.8 g/dL (31.0-37.0); MCV 95.4 fL (80.0-100.0); Monocytes # (A) 0.5 k/uL (0-1.0); Monocytes % (A) 5 %; Neutrophils # (A) 8.6 k/uL (1.3-7.7); Neutrophils % (A) 82 %; Platelet Count 371 k/uL (150-450); RBC 3.86 m/uL (4.30-5.90); RDW 13.6 % (11.5-15.5); WBC 10.5 k/uL (3.8-10.6)
[2017-08-21 08:16] LABS: Amylase 52 U/L (30-110); Anion Gap 5 mmol/L; Blood Urea Nitrogen 3 mg/dL (9-20); Calcium 8.5 mg/dL (8.4-10.2); Carbon Dioxide 25 mmol/L (22-30); Chloride 106 mmol/L (98-107); Glucose 93 mg/dL (74-99); Lipase 227 U/L (23-300); Magnesium 1.4 mg/dL (1.6-2.3); Sodium 136 mmol/L (137-145)
[2017-08-21] MEDS: NICOTINE 14MG/24HR PATCH TRANSDERM SCH (08:16)
[2017-08-21] MEDS: GABAPENTIN 400 MG CAP PO SCH ×3 (08:17→21:07)
[2017-08-21] MEDS: PANTOPRAZOLE 40 MG TABLET PO SCH (08:17)
[2017-08-21] MEDS: TAMSULOSIN 0.4 MG CAP.ER.24H PO SCH (08:17)
[2017-08-21] MEDS: DULoxetine HCL 60 MG CAPSULE.DR PO SCH (08:17)
[2017-08-21] MEDS ORDERED: Magnesium Replacement Protocol 1 EACH MISC MISCELLANE PRN (09:34)
--- NOTE | 2017-08-21 09:41 | P.PN ---
Subjective Progress Note Date: 08/21/17 08/20/2017-Note per Dr. Trejo This is a 47-year-old white male who I met once previously. He is a new patient to our practice. Seen Dr. Leo twice. He is a history of acute on chronic pancreatitis. He is an alcoholic and continues to drink. His last visit he had GI bleeding with hematemesis. He denies any hematemesis at this visit, just ongoing abdominal pain. Patient states is drinking all started after his lower back surgery. He has not been in rehabilitation for the past year and a half. He was last at [facility]. 08/21/2017 Patient seen and evaluated on rounds with Dr. Trejo. Patient states he does have some abdominal pain this morning but it has improved since admission. Tolerating PO intake without nausea or vomiting. Amylase 52. Lipase 227. Magnesium 1.4. Vital signs remain stable. Dr. Trejo discussed possibility of beginning ReVia with patient and patient agreeable. However, patient currently takes Tylenol #3 and Tramadol for chronic back pain. Patient informed he must be off opioids for 7 days before he can begin ReVia. Objective - Vital Signs Vital signs: Vital Signs Temp 98.9 F 08/21/17 06:35 Pulse 84 08/21/17 06:35 Resp 18 08/21/17 06:35 BP 153/95 08/21/17 06:35 Pulse Ox 96 08/21/17 06:35 Intake & Output 08/20/17 08/21/17 08/21/17 18:59 06:59 18:59 Intake Total 720 1200 Balance 720 1200 Intake: Oral 720 1200 Other: Voiding Method Toilet # Voids 2 2 # Bowel Movements 0 - Exam GENERAL: This is a 47-year-old male in no apparent distress at the time of examination. Pleasant and cooperative. HEENT: Head is atraumatic, normocephalic. Pupils are equal, round, and reactive to light. Sclerae anicteric. Conjunctivae are clear. Mucus membranes of the mouth are moist. Neck is supple. RESPIRATORY: Clear to ausculation. No wheezes, rales, or rhonchi. No use of accessory muscles. Patient maintaining oxygen saturation greater than 92%. No chest wall tenderness is noted on palpation or with deep breathing. CARDIOVASCULAR: Regular rate and rhythm. S1 and S2 noted. No systolic or diastolic murmur auscultated. No JVD noted. No S3 or S4 noted. GASTROINTESTINAL: No distention noted. Abdomen soft and round. Normal active bowel sounds auscultated x 4 quadrants. Mild pain and tenderness noted upon palpation. INTEGUMENTARY: No cyanosis. No jaundice. No rashes noted. No cellulitis noted. EXTREMITIES: 2+ peripheral pulses. No evidence of peripheral edema. No calf tenderness noted. NEUROLOGIC: Cranial nerves II-XII intact. PSYCHIATRIC: Awake, alert, and oriented X 3. Appropriate affect. Intact judgement and insight. - Labs CBC & Chem 7: 08/21/17 07:30 08/21/17 07:30 Labs: Abnormal Lab Results - Last 24 Hours (Table) 08/21/17 Range/Units 07:30 RBC 3.86 L (4.30-5.90) m/uL Hgb 12.1 L (13.0-17.5) gm/dL Hct 36.8 L (39.0-53.0) % Neutrophils # 8.6 H (1.3-7.7) k/uL Assessment and Plan Plan: ASSESSMENT: Acute on chronic pancreatitis secondary to ETOH abuse Alcohol abuse Recent hospitalization for pancreatitis and hematemesis Chronic urinary retention requiring self cath Chronic low back back Anxiety, unspecified Depression, unspecified Nicotine dependence, patient is a current cigarette smoker Hypomagnesemia, secondary to ETOH abuse PLAN: Psychiatry on consult. Appreciate recommendations and input Patient does not meet inpatient psych criteria and patient refusing outpatient treatment at this time GI on consult. Await recommendations and input Monitor amylase and lipase Continue CIWA protocol Nicotine patch daily Replace magnesium per protocol Home meds as appropriate Monitor labs GI prophylaxis: Protonix 40 mg PO Daily DVT prophylaxis: SCDs to bilateral lower extremities Monitor vital signs and address as appropriate Further recommendations pending patient's course Dr. Trejo discussed possibility of beginning ReVia with patient and patient agreeable. However, patient currently takes Tylenol #3 and Tramadol for chronic back pain. Patient informed he must be off opioids for 7 days before he can begin ReVia. Tylenol #3 and Tramadol discontinued per Dr. Trejo. Patient to begin on Tylenol PRN for back pain per Dr. Trejo Possible discharge home tomorrow Nurse practitioner note has been reviewed by physician. Signing provider agrees with the documented findings, assessment, and plan of care.
[2017-08-21] MEDS: SYMBICORT 80-4.5 MCG INHALER INHALATION SCH ×2 (10:00→21:13)
[2017-08-21] MEDS: MAGNESIUM SULFATE-D5W PMX 1 GM in DEXTROSE/WATER 1 100ML.BAG IVPB SCH ×3 (11:05→13:00)
[2017-08-21] MEDS: ACETAMINOPHEN TAB 325 MG TAB PO PRN ×3 (11:05→20:03)
[2017-08-21] MEDS: THIAMINE 100 MG TAB PO SCH ×2 (11:54→15:52)
[2017-08-21] MEDS: CHOLECALCIFEROL 1,000 UNIT TAB PO SCH (11:55)
[2017-08-21] MEDS: FOLIC ACID 1 MG TAB PO SCH (11:55)
[2017-08-21] MEDS: MULTIVITAMINS, THERA 1 EACH TAB PO SCH (11:55)
[2017-08-21] MEDS: ALBUTEROL NEBULIZED 2.5 MG/3 ML INHALATION PRN (12:08)
[2017-08-21] MEDS: LORazepam 0.5 MG TAB PO PRN ×2 (12:41→21:06)
[2017-08-21] MEDS: traZODone HCL 50 MG TAB PO SCH (20:02)
[2017-08-21] MEDS: ATORVASTATIN 10 MG TAB PO SCH (20:02)
[2017-08-22] MEDS: SODIUM CHLORIDE 0.9% 1,000 ML IV SCH ×3 (00:34→19:28)
[2017-08-22] MEDS: ACETAMINOPHEN TAB 325 MG TAB PO PRN ×6 (01:23→21:37)
[2017-08-22] MEDS: LORazepam 0.5 MG TAB PO PRN ×3 (05:08→20:01)
[2017-08-22] MEDS: ALBUTEROL NEBULIZED 2.5 MG/3 ML INHALATION PRN (07:51)
[2017-08-22] MEDS: SYMBICORT 80-4.5 MCG INHALER INHALATION SCH ×2 (07:52→19:48)
[2017-08-22] MEDS: DULoxetine HCL 60 MG CAPSULE.DR PO SCH (08:15)
[2017-08-22] MEDS: GABAPENTIN 400 MG CAP PO SCH ×3 (08:15→21:35)
[2017-08-22] MEDS: NICOTINE 14MG/24HR PATCH TRANSDERM SCH (08:16)
[2017-08-22] MEDS: ONDANSETRON 4 MG/2 ML VIAL IVP PRN ×2 (08:16→17:20)
[2017-08-22] MEDS: TAMSULOSIN 0.4 MG CAP.ER.24H PO SCH (08:16)
[2017-08-22] MEDS: PANTOPRAZOLE 40 MG TABLET PO SCH (08:16)
[2017-08-22 08:33] LABS: ALT 28 U/L (21-72); AST 13 U/L (17-59); Albumin 2.4 g/dL (3.5-5.0); Alkaline Phosphatase 117 U/L (38-126); Amylase 35 U/L (30-110); Anion Gap 7 mmol/L; Blood Urea Nitrogen 4 mg/dL (9-20); Calcium 8.5 mg/dL (8.4-10.2); Carbon Dioxide 23 mmol/L (22-30); Chloride 107 mmol/L (98-107); Glucose 102 mg/dL (74-99); Lipase 162 U/L (23-300); Magnesium 1.7 mg/dL (1.6-2.3); Potassium 4.2 mmol/L (3.5-5.1); Sodium 137 mmol/L (137-145); Total Bilirubin 0.2 mg/dL (0.2-1.3)
[2017-08-22] MEDS: CHOLECALCIFEROL 1,000 UNIT TAB PO SCH (11:56)
[2017-08-22] MEDS: FOLIC ACID 1 MG TAB PO SCH (11:56)
[2017-08-22] MEDS: MULTIVITAMINS, THERA 1 EACH TAB PO SCH (11:56)
[2017-08-22] MEDS: THIAMINE 100 MG TAB PO SCH ×2 (11:56→16:32)
--- NOTE | 2017-08-22 14:12 | P.PN ---
Subjective Progress Note Date: 08/22/17 08/20/2017-Note per Dr. Trejo This is a 47-year-old white male who I met once previously. He is a new patient to our practice. Seen Dr. Leo twice. He is a history of acute on chronic pancreatitis. He is an alcoholic and continues to drink. His last visit he had GI bleeding with hematemesis. He denies any hematemesis at this visit, just ongoing abdominal pain. Patient states is drinking all started after his lower back surgery. He has not been in rehabilitation for the past year and a half. He was last at [facility]. 08/21/2017 Patient seen and evaluated on rounds with Dr. Trejo. Patient states he does have some abdominal pain this morning but it has improved since admission. Tolerating PO intake without nausea or vomiting. Amylase 52. Lipase 227. Magnesium 1.4. Vital signs remain stable. Dr. Trejo discussed possibility of beginning ReVia with patient and patient agreeable. However, patient currently takes Tylenol #3 and Tramadol for chronic back pain. Patient informed he must be off opioids for 7 days before he can begin ReVia. 08/22/2017 Patient seen and evaluated on rounds with Dr. Trejo. Patient does continue to complain of mild abdominal pain. Denies nausea or vomiting. Tolerating PO intake without difficulty. Patients narcotics were discontinued yesterday with the plan to start ReVia in the near future. Patient was placed on Tylenol for pain. Patient reports pain of 8/10 but states it is tolerable at this time. Patient reports tremors, restlessness, and shivering today. Denies shortness of breath or coughing. Denies chest pain or pressure. Blood pressure slightly elevated this morning at 159/95. Previous BP was 136/85. Amylase 35. Lipase 162. Objective - Vital Signs Vital signs: Vital Signs Temp 98.2 F 08/22/17 06:03 Pulse 84 08/22/17 08:03 Resp 18 08/22/17 06:03 BP 159/95 08/22/17 06:03 Pulse Ox 97 08/22/17 07:54 Intake & Output 08/21/17 08/22/17 08/22/17 18:59 06:59 18:59 Intake Total 600 Balance 600 Intake: Oral 600 Other: # Voids 2 1 - Exam GENERAL: This is a 47-year-old male in no apparent distress at the time of examination. Patient reports tremors, although no tremors visible during examination. Patient is under multiple blankets and complains of being "cold". HEENT: Head is atraumatic, normocephalic. Pupils are equal, round, and reactive to light. Sclerae anicteric. Conjunctivae are clear. Mucus membranes of the mouth are moist. Neck is supple. RESPIRATORY: Clear to ausculation. No wheezes, rales, or rhonchi. No use of accessory muscles. Patient maintaining oxygen saturation greater than 92%. No chest wall tenderness is noted on palpation or with deep breathing. CARDIOVASCULAR: Regular rate and rhythm. S1 and S2 noted. No systolic or diastolic murmur auscultated. No JVD noted. No S3 or S4 noted. GASTROINTESTINAL: No distention noted. Abdomen soft and round. Normal active bowel sounds auscultated x 4 quadrants. Mild pain and tenderness noted upon palpation. INTEGUMENTARY: No cyanosis. No jaundice. No rashes noted. No cellulitis noted. EXTREMITIES: 2+ peripheral pulses. No evidence of peripheral edema. No calf tenderness noted. NEUROLOGIC: Cranial nerves II-XII intact. PSYCHIATRIC: Awake, alert, and oriented X 3. Appropriate affect. Slightly anxious. - Labs CBC & Chem 7: 08/21/17 07:30 08/22/17 07:35 Labs: Abnormal Lab Results - Last 24 Hours (Table) 08/22/17 Range/Units 07:35 BUN 4 L (9-20) mg/dL Creatinine 0.52 L (0.66-1.25) mg/dL Glucose 102 H (74-99) mg/dL AST 13 L (17-59) U/L Total Protein 5.0 L (6.3-8.2) g/dL Albumin 2.4 L (3.5-5.0) g/dL Assessment and Plan Plan: ASSESSMENT: Acute on chronic pancreatitis secondary to ETOH abuse Alcohol abuse Recent hospitalization for pancreatitis and hematemesis Chronic urinary retention requiring self cath Chronic low back back Anxiety, unspecified Depression, unspecified Nicotine dependence, patient is a current cigarette smoker Hypomagnesemia, secondary to ETOH abuse PLAN: Psychiatry on consult. Appreciate recommendations and input Patient does not meet inpatient psych criteria and patient refusing outpatient treatment at this time GI on consult. Await recommendations and input Continue [facility] protocol Begin clonidine 0.1mg TID for withdrawal symptoms Nicotine patch daily Home meds as appropriate Monitor labs GI prophylaxis: Protonix 40 mg PO Daily DVT prophylaxis: SCDs to bilateral lower extremities Monitor vital signs and address as appropriate Further recommendations pending patient's course Dr. Trejo discussed possibility of beginning ReVia with patient and patient agreeable. Patient was taking Tylenol #3 and Tramadol for chronic back pain. Patient informed he must be off opioids for 7 days before he can begin ReVia. Tylenol #3 and Tramadol discontinued per Dr. Trejo yesterday. Continue Tylenol PRN for back pain per Dr. Trejo Possible discharge home this afternoon or tomorrow pending GI consult Nurse practitioner note has been reviewed by physician. Signing provider agrees with the documented findings, assessment, and plan of care.
[2017-08-22] MEDS: LORazepam 2 MG/ML INJ IV PRN ×3 (14:59→22:24)
[2017-08-22] MEDS: cloNIDine HCL 0.1 MG TAB PO SCH ×2 (16:32→21:35)
[2017-08-22] MEDS: traZODone HCL 50 MG TAB PO SCH (21:35)
[2017-08-22] MEDS: ATORVASTATIN 10 MG TAB PO SCH (21:35)
[2017-08-22 22:35] VITALS: RESP 18
[2017-08-23] MEDS: LORazepam 2 MG/ML INJ IV PRN ×3 (01:53→10:17)
[2017-08-23] MEDS: ACETAMINOPHEN TAB 325 MG TAB PO PRN ×2 (01:56→07:44)
[2017-08-23] MEDS: SODIUM CHLORIDE 0.9% 1,000 ML IV SCH (05:18)
[2017-08-23 06:05] VITALS: BP 165/91; PULSE 75; TEMP 97.5
[2017-08-23] MEDS: NICOTINE 14MG/24HR PATCH TRANSDERM SCH (08:23)
[2017-08-23] MEDS: THIAMINE 100 MG TAB PO SCH (08:24)
[2017-08-23] MEDS: FOLIC ACID 1 MG TAB PO SCH (08:24)
[2017-08-23] MEDS: CHOLECALCIFEROL 1,000 UNIT TAB PO SCH (08:24)
[2017-08-23] MEDS: TAMSULOSIN 0.4 MG CAP.ER.24H PO SCH (08:24)
[2017-08-23] MEDS: DULoxetine HCL 60 MG CAPSULE.DR PO SCH (08:24)
[2017-08-23] MEDS: cloNIDine HCL 0.1 MG TAB PO SCH (08:24)
[2017-08-23] MEDS: MULTIVITAMINS, THERA 1 EACH TAB PO SCH (08:24)
[2017-08-23] MEDS: GABAPENTIN 400 MG CAP PO SCH (08:24)
[2017-08-23] MEDS: PANTOPRAZOLE 40 MG TABLET PO SCH (08:24)
[2017-08-23] MEDS: LORazepam 0.5 MG TAB PO PRN (08:28)
[2017-08-23] MEDS: SYMBICORT 80-4.5 MCG INHALER INHALATION SCH (08:33)
--- NOTE | 2017-08-23 12:10 | P.DS ---
Providers Date of admission: 08/20/17 20:17 Expected date of discharge: 08/23/17 Attending physician: Carrillo Leo Consults: 08/20/17 09:59 Consult Physician Routine Consulting Provider: Consuelo Kellogg Consult Reason/Comments: Pancreatitis Do you want consulting provider notified?: Yes 08/20/17 10:00 Consult Physician Routine Consulting Provider: Caty Castaneda Consult Reason/Comments: alcholissm Do you want consulting provider notified?: Yes Primary care physician: [facility] Course: 47-year-old male who presented to emergency room with a chief complaint of abdominal pain. Patient was recently hospitalized for acute pancreatitis and hematemesis. Patient continues to drink alcohol. amylase 97 and lipase 812 on admission. Serum alcohol 114. GI was consulted during hospitalization. Patient received IV hydration during hospitalization. Amylase and lipase have returned to within normal limits. Amylase 35. Lipase 162. The patient was placed on CIWA protocol during hospitalization for alcohol withdrawal. The patient was started on Clonidine 0.1mg PO TID per Dr. Trejo with withdrawal symptoms. Psychiatry was consulted to evaluate the patient. The patient is refusing treatment at a facility such as [facility]. Dr. Trejo discussed options for abstinence from alcohol with patient. Patient agreeable to begin ReVia. Patient takes Tylenol #3 and tramadol for chronic back pain, which were discontinued on 08/21/2017. The patient was started on Tylenol for pain. The patient states his back pain has increased but has been tolerable. Patient continued to complain of epigastic pain on 2017. Case was discussed with Dr. Kellogg who states that an EGD would not be very beneficial to the patient at this time. She states the patient may be discharged home from her standpoint and can follow up in 2-3 weeks in the office. The patient was deemed stable for discharge per Dr. Trejo. The patient was educated on the importance of abstaining from alcohol use. Patient verbalized understanding. The patient was also educated on the importance of not taking Tylenol #3 and tramadol while taking ReVia. Patient verbalized understanding. A prescription for ReVia was sent to the patients preferred pharmacy. Per Dr. Trejo, the patient may begin taking ReVia tomorrow 2017. Rx for nicotine patch and Clonidine were also sent to the patients preferred pharmacy. DISCHARGE DIAGNOSIS: Acute on chronic pancreatitis secondary to ETOH abuse Alcohol abuse Recent hospitalization for pancreatitis and hematemesis Chronic urinary retention requiring self cath Chronic low back back Anxiety, unspecified Depression, unspecified Nicotine dependence, patient is a current cigarette smoker Hypomagnesemia, secondary to ETOH abuse, improved with supplementation Nurse practitioner note has been reviewed by physician. Signing provider agrees with the documented findings, assessment, and plan of care. Plan - Discharge Summary Discharge Rx Participant: No New Discharge Prescriptions: New Acetaminophen Tab [Tylenol] 650 mg PO Q4HR PRN tab PRN Reason: Fever And/ Or Pain cloNIDine HCL [Catapres] 0.1 mg PO TID #30 tab Nicotine 14Mg/24Hr Patch [Habitrol] 1 patch TRANSDERM DAILY #10 patch Naltrexone HCl [Revia] 50 mg PO DAILY #30 tablet Continue Folic Acid 1 mg PO DAILY #30 tablet Atorvastatin [Lipitor] 10 mg PO HS Tamsulosin HCl [Flomax] 0.4 mg PO DAILY LORazepam [Ativan] 0.5 mg PO TID PRN #30 tab PRN Reason: Anxiety Multivitamins, Thera [Multivitamin (formulary)] 1 tab PO DAILY Albuterol Inhaler [Ventolin Hfa Inhaler] 2 puff INHALATION RT-Q4H PRN PRN Reason: Shortness Of Breath traZODone HCL 50 mg PO HS Budesonide/Formoterol Fumarate [Symbicort 80-4.5 Mcg Inhaler] 1 puff INHALATION RT-BID Cholecalciferol (Vitamin D3) [Vitamin D3] 2,000 unit PO DAILY Omeprazole [PriLOSEC] 40 mg PO BID #60 capsule. Thiamine [Vitamin B-1] 100 mg PO DAILY #30 tablet Gabapentin [Neurontin] 400 mg PO TID DULoxetine HCL [Cymbalta] 60 mg PO DAILY Ondansetron Odt [Zofran ODT] 4 mg PO Q8HR PRN #20 tab PRN Reason: Nausea Discontinued traMADol HCL [Ultram] 50 mg PO Q6H PRN PRN Reason: Pain chlordiazePOXIDE HCl [Librium] 25 mg PO BID PRN PRN Reason: Anxiety Acetaminophen-Codeine 300-30mg [Tylenol w/codeine #3] 1 tab PO Q4H PRN #14 tablet PRN Reason: pain Discharge Medication List Folic Acid 1 mg PO DAILY #30 tablet 07/15/15 [Rx] Atorvastatin [Lipitor] 10 mg PO HS 09/27/15 [History] Tamsulosin HCl [Flomax] 0.4 mg PO DAILY 12/18/16 [History] LORazepam [Ativan] 0.5 mg PO TID PRN #30 tab 12/22/16 [Rx] Albuterol Inhaler [Ventolin Hfa Inhaler] 2 puff INHALATION RT-Q4H PRN 03/01/17 [ History] Multivitamins, Thera [Multivitamin (formulary)] 1 tab PO DAILY 03/01/17 [History ] Budesonide/Formoterol Fumarate [Symbicort 80-4.5 Mcg Inhaler] 1 puff INHALATION RT-BID 04/04/17 [History] Cholecalciferol (Vitamin D3) [Vitamin D3] 2,000 unit PO DAILY 04/04/17 [History] traZODone HCL 50 mg PO HS 04/04/17 [History] Omeprazole [PriLOSEC] 40 mg PO BID #60 capsule. 05/16/17 [Rx] Thiamine [Vitamin B-1] 100 mg PO DAILY #30 tablet 05/16/17 [Rx] DULoxetine HCL [Cymbalta] 60 mg PO DAILY 07/18/17 [History] Gabapentin [Neurontin] 400 mg PO TID 07/18/17 [History] Ondansetron Odt [Zofran ODT] 4 mg PO Q8HR PRN #20 tab 07/20/17 [Rx] Acetaminophen Tab [Tylenol] 650 mg PO Q4HR PRN tab 08/23/17 [Rx] Naltrexone HCl [Revia] 50 mg PO DAILY #30 tablet 08/23/17 [Rx] Nicotine 14Mg/24Hr Patch [Habitrol] 1 patch TRANSDERM DAILY #10 patch 08/23/17 [ Rx] cloNIDine HCL [Catapres] 0.1 mg PO TID #30 tab 08/23/17 [Rx] Follow up Appointment(s)/Referral(s): Carrillo Leo Jr, DO [Primary Care Provider] - 08/27/17 1:15 pm Consuelo Kellogg MD [STAFF PHYSICIAN] - 08/29/17 4:15 pm Patient Instructions/Handouts: Pancreatitis (GEN) Activity/Diet/Wound Care/Special Instructions: Do NOT take your percocet or tramadol for pain. You may use Tylenol for pain as needed You may begin ReVia tomorrow 08/24/[address] Trejo. Do not drink alcohol or take percocet or tramadol while taking this medication. Low fat, bland diet, advance as tolerated. Activity as tolerated. Discharge Disposition: HOME SELF-CARE
--- NOTE | 2017-08-23 14:01 | CONS ---
CONSULTATION DATE OF DICTATION: 08/23/2017 REASON FOR CONSULTATION: Acute pancreatitis. HISTORY OF PRESENT ILLNESS: The patient is a 47-year-old white male with history of alcohol abuse and chronic relapsing pancreatitis with multiple hospitalizations in the last 2 years. He was admitted to the hospital with ongoing epigastric discomfort associated with nausea, vomiting, and was noted to have mild elevation of amylase and lipase consistent with pancreatitis. This morning he has epigastric discomfort. No nausea, vomiting. On a clear liquid diet, tolerating well. He is requesting for pain medications. Patient has history of heavy alcohol abuse and was in rehab for alcohol rehabilitation but was not successful. PAST MEDICAL HISTORY: Significant for GERD, hypertension, hyperlipidemia, alcohol abuse, chronic back pain. PAST SURGICAL HISTORY: Cholecystectomy, back surgery, spinal cord stimulator, bilateral knee arthroscopies, finger surgery. SOCIAL HISTORY: Heavy alcohol abuse as mentioned above. Chronic smoker. FAMILY HISTORY: Father has diabetes mellitus. Mother has hypertension, dementia, and hyperlipidemia. MEDICATIONS: At home include Lipitor, Flomax, Ativan, Ultram, Ventolin, multivitamin, Symbicort, Prilosec, trazodone, thiamine, Cymbalta, Neurontin, Zofran, Librium. No known drug allergies. REVIEW OF SYSTEMS: CARDIOPULMONARY: No chest pain, shortness of breath. GENITOURINARY: No dysuria or hematuria. MUSCULOSKELETAL: Unremarkable. SKIN: Unremarkable. ENDOCRINE: Unremarkable. PSYCHIATRIC: Unremarkable. NEUROLOGY: Unremarkable. ENT: Vision unremarkable. CONSTITUTIONAL: No recent weight loss. No fever, chills, night sweats. PHYSICAL EXAMINATION: Patient appears comfortable, in no apparent distress. Vital signs are stable. Blood pressure 112/86, pulse rate 82 per minute and afebrile. HEENT EXAMINATION: Unremarkable, conjunctivae are pink, sclerae nonicteric, oral cavity no lesions. NECK: No JVD or lymph node enlargement. Chest was clear to auscultation. HEART: Regular rate and rhythm. ABDOMEN: Soft. Mild tenderness in the epigastric area. Bowel sounds are positive. No organomegaly. EXTREMITIES: No pedal edema. SKIN: No rashes. NEURO: Alert and oriented x3. No focal deficits. LABS: Serum alcohol was 114. Amylase was 97, lipase is 812. Today, amylase and lipase are 35 and 162 respectively. Serum ALT, AST, T-bili, alk phos are normal. WBC 10.5, hemoglobin 12.1, platelets are normal. IMPRESSION: Chronic relapsing pancreatitis secondary to heavy alcohol abuse of several years duration. Abdominal pain is gradually improving. On a clear liquid diet, tolerating well. RECOMMENDATIONS: 1. Continue with symptomatic and supportive care. 2. He can be discharged home today. 3. No indication for an upper endoscopy at the present time. 4. Had a lengthy discussion with the patient regarding abstinence from alcohol and the patient was advised to follow up in the office in a week following discharge. Thank you for this consultation. MMODL / IJN: [id number] /
== END 2017-08-23 12:50 | disposition home or self-care (01) | DRG 439 ==
LOC: EC 06:35 → 4MS4W 09:00 → OBSVTOIN 08-20 20:17
PROVIDERS: ADMIT Family Medicine; ATTEND Family Medicine
DX: K85.20 Alcohol induced acute pancreatitis without necrosis or infection (principal); F10.239 Alcohol dependence with withdrawal, unspecified; E83.42 Hypomagnesemia; K70.10 Alcoholic hepatitis without ascites; F10.24 Alcohol dependence with alcohol-induced mood disorder; K86.0 Alcohol-induced chronic pancreatitis; F41.9 Anxiety disorder, unspecified; K21.9 Gastro-esophageal reflux disease without esophagitis; E78.5 Hyperlipidemia, unspecified; I10 Essential (primary) hypertension; R33.9 Retention of urine, unspecified; G89.29 Other chronic pain; M54.5 Low back pain; N42.9 Disorder of prostate, unspecified; F17.210 Nicotine dependence, cigarettes, uncomplicated; Z79.891 Long term (current) use of opiate analgesic; Z79.51 Long term (current) use of inhaled steroids; Z79.899 Other long term (current) drug therapy; Z90.49 Acquired absence of other specified parts of digestive tract; Z87.442 Personal history of urinary calculi; Z83.3 Family history of diabetes mellitus; Z82.49 Family history of ischemic heart disease and other diseases of the circulatory system; Z81.8 Family history of other mental and behavioral disorders; Z98.1 Arthrodesis status; Z87.01 Personal history of pneumonia (recurrent); Y90.5 Blood alcohol level of 100-119 mg/100 ml
CPT/HCPCS: 36415; 71046; 74177; 80048; 80053; 80320; 82150; 82550; 82553; 83690; 83735; 84484; 85025; 85610; 85730; 93005; 94640; 94760; 96361; 96372; 96374; 96375; 99285

== ENCOUNTER 2017-08-24 16:37 | Emergency (ER) | payer MEDICARE, OTHER ==
[2017-08-24 16:42] VITALS: TEMP 98.7
[2017-08-24] MEDS ORDERED: SODIUM CHLORIDE 0.9% 1,000 ML IV STA (16:51)
[2017-08-24] MEDS ORDERED: KETOROLAC 30 MG/ML 1 ML VIAL IVP STA (16:51)
--- NOTE | 2017-08-24 16:54 | ED ---
Chest Pain HPI - General Chief Complaint: Chest Pain Stated Complaint: Chest Pain/Poss Allergic Reaction Time Seen by Provider: 08/24/17 16:43 Source: patient, RN notes reviewed Mode of arrival: ambulatory Limitations: no limitations - History of Present Illness Initial Comments: This is a 47-year-old male with a history of alcoholic pancreatitis cholecystectomy who presents with complaints of the onset of chest pain about an hour after taking new medications he was prescribed clonidine and naltrexone. He states the pain was sharp in some dizziness associated with it. No nausea vomiting he described the pain as tightness. He points to his mid chest was nonradiating. No cough or phlegm production. Patient was just discharged from the hospital within the last several days. MD Complaint: chest pain - Related Data Home Medications Medication Instructions Recorded Confirmed Atorvastatin [Lipitor] 10 mg PO HS 09/27/15 08/24/17 Albuterol Inhaler [Ventolin Hfa 2 puff INHALATION RT-Q4H PRN 03/01/17 08/24/17 Inhaler] Budesonide/Formoterol Fumarate 1 puff INHALATION RT-BID 04/04/17 08/24/17 [Symbicort 80-4.5 Mcg Inhaler] traZODone HCL 50 mg PO HS 04/04/17 08/24/17 DULoxetine HCL [Cymbalta] 60 mg PO DAILY 07/18/17 08/24/17 Gabapentin [Neurontin] 400 mg PO TID 07/18/17 08/24/17 Previous Rx's Medication Instructions Recorded Folic Acid 1 mg PO DAILY #30 tablet 07/15/15 LORazepam [Ativan] 0.5 mg PO TID PRN #30 tab 12/22/16 Omeprazole [PriLOSEC] 40 mg PO BID #60 capsule. 05/16/17 Ondansetron Odt [Zofran ODT] 4 mg PO Q8HR PRN #20 tab 07/20/17 Acetaminophen Tab [Tylenol] 650 mg PO Q4HR PRN tab 08/23/17 Naltrexone HCl [Revia] 50 mg PO DAILY #30 tablet 08/23/17 Nicotine 14Mg/24Hr Patch [Habitrol] 1 patch TRANSDERM DAILY #10 patch 08/23/17 cloNIDine HCL [Catapres] 0.1 mg PO TID #30 tab 08/23/17 Hydrocodone/Acetaminophen [[place] 1 each PO Q6HR PRN #12 tab 08/24/17 5-325] Ibuprofen 800 mg PO Q6HR PRN #20 tablet 08/24/17 Magnesium 200 mg PO DAILY #14 tablet 08/24/17 Allergies Allergy/AdvReac Type Severity Reaction Status Date / Time No Known Allergies Allergy Verified 08/24/17 17:26 Review of Systems ROS Statement: Those systems with pertinent positive or pertinent negative responses have been documented in the HPI. ROS Other: All systems not noted in ROS Statement are negative. EKG Findings - EKG Results: EKG: interpreted by RUTHANN BATES, sinus rhythm, normal axis, normal QRS, normal ST/ T, no acute changes (EKG shows normal sinus rhythm with 95 appear interval 150 to QRS duration 76 daily since QTC of 376/472 this is compared with EKG dated 08/19/17 and showing no changes.) Past Medical History Past Medical History: GERD/Reflux, Hyperlipidemia, Pneumonia, Prostate Disorder Additional Past Medical History / Comment(s): ETOH ABUSE, RECURRANT PANCREATITIS , ALCOHOLIC HEPATITIS, NEPHROLITHIASIS, hx of CHRONIC URINARY RETENTION DUE TO BACK PROBLEMS-SELF CATHS.UTI. CHRONIC LOW BACK PAIN. History of Any Multi-Drug Resistant Organisms: None Reported Past Surgical History: Back Surgery, Cholecystectomy, Orthopedic Surgery Additional Past Surgical History / Comment(s): Bronchoscopy, BACK surgeries with TITANIUM PLATES MILTON and CAGES, KIDNEY STONES removed per pt, SPINAL CORD STIMULATOR, ISMAEL KNEE ARTHROSCOPIES, PINKY FINGER RT HAND REATTATCHED Past Anesthesia/Blood Transfusion Reactions: No Reported Reaction Past Psychological History: Anxiety, Depression Smoking Status: Heavy tobacco smoker Past Alcohol Use History: Occasional Past Drug Use History: None Reported - Past Family History Father Family Medical History: Diabetes Mellitus Additional Family Medical History / Comment(s): Mother Family Medical History: Dementia, Hyperlipidemia, Hypertension Additional Family Medical History / Comment(s): Mother is living. General Exam - General Exam Comments Initial Comments: This is a well-developed well-nourished awake alert oriented 3 male Limitations: no limitations General appearance: alert, anxious Head exam: Present: atraumatic, normocephalic, normal inspection Eye exam: Present: normal appearance, PERRL, EOMI. Absent: scleral icterus, conjunctival injection, periorbital swelling ENT exam: Present: normal exam, mucous membranes moist Neck exam: Present: normal inspection. Absent: tenderness, meningismus, lymphadenopathy Respiratory exam: Present: normal lung sounds bilaterally, chest wall tenderness (Reproducible tenderness palpation over the costal sternal margins bilaterally.). Absent: respiratory distress, wheezes, rales, rhonchi, stridor Cardiovascular Exam: Present: regular rate, normal rhythm, normal heart sounds. Absent: systolic murmur, diastolic murmur, rubs, gallop, clicks GI/Abdominal exam: Present: soft, normal bowel sounds. Absent: distended, tenderness, guarding, rebound, rigid Extremities exam: Present: normal inspection, full ROM, normal capillary refill. Absent: tenderness, pedal edema, joint swelling, calf tenderness Back exam: Present: normal inspection Neurological exam: Present: alert, oriented X3, CN II-XII intact Psychiatric exam: Present: normal affect, normal mood Skin exam: Present: warm, dry, intact, normal color. Absent: rash Course Vital Signs 08/24/17 08/24/17 08/24/17 16:41 17:49 18:56 Temperature 98.7 F Pulse Rate 109 H 92 83 Respiratory 20 16 16 Rate Blood Pressure 119/71 132/86 139/91 O2 Sat by Pulse 99 100 100 Oximetry 08/24/17 19:34 Temperature Pulse Rate 82 Respiratory 18 Rate Blood Pressure 140/83 O2 Sat by Pulse 98 Oximetry Chest Pain MDM - MDM Imaging shows no acute findings I did review the imaging and reports the presentation is consistent with chest wall pain patient will be discharged is follow-up with his doctor return when necessary this time I do not believe the new medication had anything to do with this presentation. He also has hypomagnesemia he'll be placed on supplements. Disposition Clinical Impression: Chest wall pain, Costochondritis, Hypomagnesemia Disposition: HOME SELF-CARE Condition: Good Instructions: Costochondritis (ED), Chest Pain (ED), Hypomagnesemia (ED) Prescriptions: Hydrocodone/Acetaminophen [Sterling 5-325] 1 each PO Q6HR PRN #12 tab PRN Reason: Pain Ibuprofen 800 mg PO Q6HR PRN #20 tablet PRN Reason: Pain Magnesium 200 mg PO DAILY #14 tablet Referrals: Carrillo Leo Jr, [Primary Care Provider] - 1-2 days
[2017-08-24 17:25] LABS: Basophils % (A) 0 %; Eosinophils # (A) 0.1 k/uL (0-0.7); Eosinophils % (A) 1 %; HCT 40.9 % (39.0-53.0); HGB 13.5 gm/dL (13.0-17.5); Lymphocytes # (A) 1.5 k/uL (1.0-4.8); Lymphocytes % (A) 15 %; MCH 30.8 pg (25.0-35.0); MCV 93.4 fL (80.0-100.0); Mean Platelet Volume 7.1; Monocytes # (A) 0.5 k/uL (0-1.0); Monocytes % (A) 5 %; Neutrophils # (A) 8.3 k/uL (1.3-7.7); Neutrophils % (A) 79 %; Platelet Count 438 k/uL (150-450); RBC 4.38 m/uL (4.30-5.90); RDW 13.5 % (11.5-15.5); WBC 10.4 k/uL (3.8-10.6)
[2017-08-24 17:34] LABS: ALT 24 U/L (21-72); AST 13 U/L (17-59); Albumin 3.3 g/dL (3.5-5.0); Alkaline Phosphatase 128 U/L (38-126); Amylase 53 U/L (30-110); Anion Gap 12 mmol/L; Blood Urea Nitrogen 9 mg/dL (9-20); Calcium 9.4 mg/dL (8.4-10.2); Carbon Dioxide 20 mmol/L (22-30); Chloride 101 mmol/L (98-107); Glucose 97 mg/dL (74-99); Lipase 146 U/L (23-300); Magnesium 1.4 mg/dL (1.6-2.3); Potassium 4.4 mmol/L (3.5-5.1); Sodium 133 mmol/L (137-145); Total Bilirubin 0.3 mg/dL (0.2-1.3); Total Protein 6.4 g/dL (6.3-8.2)
--- NOTE | 2017-08-24 17:38 | XR ---
EXAMINATION: XR chest 2V DATE AND TIME: 08/24/2017 5:30 PM ORDERING PROVIDER: Herman Neal MD CLINICAL INDICATION: Chest Pain TECHNIQUE: PA and lateral COMPARISON: 08/19/2017 DESCRIPTION: The lungs are clear. The pleural spaces are negative. The cardiac silhouette is not enlarged. The mediastinal and pleural silhouettes are unremarkable. The skeletal structures are intact without focal findings. The soft tissues are unremarkable. IMPRESSION: NO ACUTE PROCESS.
[2017-08-24 17:43] LABS: Creatine Kinase 39 U/L (55-170)
[2017-08-24] MEDS ORDERED: ONDANSETRON 4 MG/2 ML VIAL IVP STA (17:44)
[2017-08-24 17:47] LABS: D-Dimer 1.77 mg/L FEU (<0.60); Partial Thromboplastin Time 24.2 sec (22.0-30.0)
[2017-08-24 17:56] LABS: Creatine Kinase MB 0.5 ng/mL (0.0-2.4); Troponin I <0.012 ng/mL (0.000-0.034)
[2017-08-24] MEDS ORDERED: MAGNESIUM SULFATE-D5W PMX 1 GM in DEXTROSE/WATER 1 100ML.BAG IVPB ONE (18:01)
[2017-08-24] MEDS ORDERED: RX INFO: IV CONTRAST WAS GIVEN 1 EACH MISC MISCELLANE PRN (18:01)
--- NOTE | 2017-08-24 19:16 | CT ---
EXAMINATION TYPE: CT angio chest with contrast and 3-D Reconstruction rendering DATE OF EXAM: 08/24/2017 6:50 PM COMPARISON: NONE HISTORY: Chest pains CT DLP: 240.2 mGycm. Automated exposure control for dose reduction was used. CONTRAST: CTA scan of the thorax is performed with IV Contrast, patient injected with 100 mL of Isovu e 370, pulmonary embolism protocol. 3-D reconstructions.. FINDINGS: LUNGS: The lungs are grossly clear, there is no concerning parenchymal mass or nodule identified. Th ere is no pleural effusion or pneumothorax seen. The tracheobronchial tree is patent. MEDIASTINUM: There is satisfactory enhancement of the pulmonary artery and its branches, there is no CT evidence for pulmonary embolism. There are no greater than 1 cm hilar or mediastinal lymph nodes. No cardiomegaly, but LAD coronary calcification noted. No pericardial effusion is seen. SKELETAL STRUCTURES: Unremarkable. OTHER: No additional significant abnormality is seen. IMPRESSION: 1. NO ACUTE PROCESS. 2. LEFT ANTERIOR DESCENDING CORONARY ARTERY CALCIFICATION .NOTED.
[2017-08-24] MEDS ORDERED: MORPHINE SULFATE 4MG/4ML SYRG IVP STA (19:24)
[2017-08-24 19:35] VITALS: BP 140/83; PULSE 82; RESP 18
== END 2017-08-24 20:21 | disposition home or self-care (01) ==
LOC: EC 16:37
DX: M94.0 Chondrocostal junction syndrome [Tietze] (principal); E83.42 Hypomagnesemia; E78.5 Hyperlipidemia, unspecified; F41.9 Anxiety disorder, unspecified; F32.9 Major depressive disorder, single episode, unspecified; F17.200 Nicotine dependence, unspecified, uncomplicated; Z79.51 Long term (current) use of inhaled steroids; Z79.899 Other long term (current) drug therapy
CPT/HCPCS: 36415; 93005; 85379; 80053; 82150; 82550; 82553; 83690; 83735; 84484; 85025; 85610; 85730; 71046; 71275; 99285; 96365; 96375 ×3; 96361; J2405; J1885; J3475; Q9967; J2270

== ENCOUNTER 2017-08-25 03:25 | Emergency (ER) | payer MEDICARE, OTHER ==
[2017-08-25 03:35] VITALS: TEMP 98
--- NOTE | 2017-08-25 03:42 | ED ---
Chest Pain HPI - General Chief Complaint: Chest Pain Stated Complaint: Chest Pain Time Seen by Provider: 08/25/17 03:39 Source: patient Mode of arrival: wheelchair Limitations: no limitations - History of Present Illness MD Complaint: chest pain -: days(s) Onset: during rest Pain Location: epigastric Pain Radiation: none Severity: moderate Quality: aching Consistency: constant Improves With: nothing Worsens With: nothing Anginal Symptoms: nausea Treatments Prior to Arrival: none - Related Data Home Medications Medication Instructions Recorded Confirmed Atorvastatin [Lipitor] 10 mg PO HS 09/27/15 08/24/17 Albuterol Inhaler [Ventolin Hfa 2 puff INHALATION RT-Q4H PRN 03/01/17 08/24/17 Inhaler] Budesonide/Formoterol Fumarate 1 puff INHALATION RT-BID 04/04/17 08/24/17 [Symbicort 80-4.5 Mcg Inhaler] traZODone HCL 50 mg PO HS 04/04/17 08/24/17 DULoxetine HCL [Cymbalta] 60 mg PO DAILY 07/18/17 08/24/17 Gabapentin [Neurontin] 400 mg PO TID 07/18/17 08/24/17 Previous Rx's Medication Instructions Recorded Folic Acid 1 mg PO DAILY #30 tablet 07/15/15 LORazepam [Ativan] 0.5 mg PO TID PRN #30 tab 12/22/16 Omeprazole [PriLOSEC] 40 mg PO BID #60 capsule. 05/16/17 Ondansetron Odt [Zofran ODT] 4 mg PO Q8HR PRN #20 tab 07/20/17 Acetaminophen Tab [Tylenol] 650 mg PO Q4HR PRN tab 08/23/17 Naltrexone HCl [Revia] 50 mg PO DAILY #30 tablet 08/23/17 Nicotine 14Mg/24Hr Patch [Habitrol] 1 patch TRANSDERM DAILY #10 patch 08/23/17 cloNIDine HCL [Catapres] 0.1 mg PO TID #30 tab 08/23/17 Hydrocodone/Acetaminophen [[place] 1 each PO Q6HR PRN #12 tab 08/24/17 5-325] Ibuprofen 800 mg PO Q6HR PRN #20 tablet 08/24/17 Magnesium 200 mg PO DAILY #14 tablet 08/24/17 chlordiazePOXIDE HCl [Librium] 25 mg PO TID #12 capsule 08/25/17 Allergies Allergy/AdvReac Type Severity Reaction Status Date / Time No Known Allergies Allergy Verified 08/25/17 03:35 Review of Systems ROS Statement: Those systems with pertinent positive or pertinent negative responses have been documented in the HPI. ROS Other: All systems not noted in ROS Statement are negative. Constitutional: Denies: fever, chills Respiratory: Denies: cough, dyspnea Cardiovascular: Reports: chest pain. Denies: palpitations, edema, syncope Gastrointestinal: Reports: as per HPI, abdominal pain. Denies: vomiting, diarrhea Genitourinary: Denies: dysuria, hematuria Musculoskeletal: Denies: back pain Skin: Denies: rash Neurological: Denies: headache, weakness, numbness Psychiatric: Reports: anxiety EKG Findings - EKG Results: EKG: interpreted by PAULO, sinus rhythm, normal axis, normal QRS, normal ST/T Past Medical History Past Medical History: GERD/Reflux, Hyperlipidemia, Pneumonia, Prostate Disorder Additional Past Medical History / Comment(s): ETOH ABUSE, RECURRANT PANCREATITIS , ALCOHOLIC HEPATITIS, NEPHROLITHIASIS, hx of CHRONIC URINARY RETENTION DUE TO BACK PROBLEMS-SELF CATHS.UTI. CHRONIC LOW BACK PAIN. History of Any Multi-Drug Resistant Organisms: None Reported Past Surgical History: Back Surgery, Cholecystectomy, Orthopedic Surgery Additional Past Surgical History / Comment(s): Bronchoscopy, BACK surgeries with TITANIUM PLATES MILTON and CAGES, KIDNEY STONES removed per pt, SPINAL CORD STIMULATOR, ISMAEL KNEE ARTHROSCOPIES, PINKY FINGER RT HAND REATTATCHED Past Anesthesia/Blood Transfusion Reactions: No Reported Reaction Past Psychological History: Anxiety, Depression Smoking Status: Heavy tobacco smoker Past Alcohol Use History: Occasional Past Drug Use History: None Reported - Past Family History Father Family Medical History: Diabetes Mellitus Additional Family Medical History / Comment(s): Mother Family Medical History: Dementia, Hyperlipidemia, Hypertension Additional Family Medical History / Comment(s): Mother is living. General Exam Limitations: no limitations General appearance: alert, in no apparent distress Head exam: Present: atraumatic, normocephalic Eye exam: Present: normal appearance. Absent: scleral icterus, conjunctival injection ENT exam: Present: mucous membranes dry Neck exam: Present: normal inspection Respiratory exam: Present: normal lung sounds bilaterally. Absent: respiratory distress, wheezes, rales, rhonchi, stridor Cardiovascular Exam: Present: regular rate, normal rhythm, normal heart sounds. Absent: systolic murmur, diastolic murmur, rubs, gallop GI/Abdominal exam: Present: soft, tenderness (Mild epigastric tenderness without rebound or guarding), normal bowel sounds. Absent: distended, guarding , rebound, rigid, pulsatile mass, hernia Extremities exam: Present: normal inspection, normal capillary refill. Absent: pedal edema, calf tenderness Back exam: Present: normal inspection. Absent: CVA tenderness (R), CVA tenderness (L) Neurological exam: Present: alert Skin exam: Present: warm, dry, intact, normal color. Absent: rash Course Vital Signs 08/25/17 08/25/17 08/25/17 03:33 03:52 05:13 Temperature 98.0 F Pulse Rate 88 83 83 Respiratory 18 18 16 Rate Blood Pressure 171/96 169/82 144/94 O2 Sat by Pulse 100 100 99 Oximetry 08/25/17 06:31 Temperature Pulse Rate 74 Respiratory 18 Rate Blood Pressure 149/98 O2 Sat by Pulse 99 Oximetry Disposition Clinical Impression: Gastritis Disposition: HOME SELF-CARE Condition: Fair Instructions: Gastritis (ED) Prescriptions: chlordiazePOXIDE HCl [Librium] 25 mg PO TID #12 capsule Referrals: Carrillo Leo Jr, DO [Primary Care Provider] - 1-2 days
[2017-08-25] MEDS ORDERED: ONDANSETRON 4 MG/2 ML VIAL IVP STA (03:46)
[2017-08-25] MEDS ORDERED: LORazepam 2 MG/ML INJ IV STA (03:46)
[2017-08-25] MEDS ORDERED: SODIUM CHLORIDE 0.9% 500 ML IV STA (03:46)
[2017-08-25 03:50] LABS: Basophils % (A) 0 %; Eosinophils # (A) 0.3 k/uL (0-0.7); Eosinophils % (A) 2 %; HCT 42.6 % (39.0-53.0); HGB 14.1 gm/dL (13.0-17.5); Lymphocytes # (A) 1.6 k/uL (1.0-4.8); Lymphocytes % (A) 13 %; MCH 30.8 pg (25.0-35.0); MCV 93.2 fL (80.0-100.0); Mean Platelet Volume 7.7; Monocytes # (A) 0.6 k/uL (0-1.0); Monocytes % (A) 5 %; Neutrophils # (A) 10.1 k/uL (1.3-7.7); Neutrophils % (A) 80 %; Platelet Count 501 k/uL (150-450); RBC 4.57 m/uL (4.30-5.90); RDW 13.4 % (11.5-15.5); WBC 12.7 k/uL (3.8-10.6)
[2017-08-25 03:56] LABS: Albumin 3.4 g/dL (3.5-5.0); Anion Gap 11 mmol/L; Calcium 9.2 mg/dL (8.4-10.2); Carbon Dioxide 21 mmol/L (22-30); Chloride 100 mmol/L (98-107); Glucose 99 mg/dL (74-99); Sodium 132 mmol/L (137-145); Total Bilirubin 0.5 mg/dL (0.2-1.3); Total Protein 6.7 g/dL (6.3-8.2)
[2017-08-25 03:58] LABS: ALT 22 U/L (21-72); AST 18 U/L (17-59); Alkaline Phosphatase 127 U/L (38-126); Blood Urea Nitrogen 9 mg/dL (9-20); Magnesium 1.8 mg/dL (1.6-2.3); Potassium 4.5 mmol/L (3.5-5.1)
[2017-08-25 04:04] LABS: Creatine Kinase 48 U/L (55-170)
[2017-08-25 04:05] LABS: Amylase 63 U/L (30-110); Lipase 143 U/L (23-300)
[2017-08-25 04:06] LABS: D-Dimer 2.02 mg/L FEU (<0.60); Prothrombin Time 9.7 sec (9.0-12.0)
[2017-08-25 04:10] LABS: Partial Thromboplastin Time 20.4 sec (22.0-30.0)
[2017-08-25 04:17] LABS: Creatine Kinase MB 0.6 ng/mL (0.0-2.4); Troponin I <0.012 ng/mL (0.000-0.034)
[2017-08-25] MEDS ORDERED: RX INFO: IV CONTRAST WAS GIVEN 1 EACH MISC MISCELLANE PRN (04:54)
[2017-08-25] MEDS ORDERED: chlordiazePOXIDE 25 MG CAP PO STA (05:16)
[2017-08-25] MEDS ORDERED: MAG HYDROX/AL HYDROX/SIMETH 30 ML, HYOSCYAMINE ELIXIR 10 ML, CIMETIDINE HCL 300 MG, LID... PO STA ×4 (05:29)
[2017-08-25 06:33] VITALS: BP 149/98; PULSE 74; RESP 18
== END 2017-08-25 07:03 | disposition home or self-care (01) ==
LOC: EC 03:25
DX: K29.70 Gastritis, unspecified, without bleeding (principal); K21.9 Gastro-esophageal reflux disease without esophagitis; E78.5 Hyperlipidemia, unspecified; F41.9 Anxiety disorder, unspecified; F32.9 Major depressive disorder, single episode, unspecified; F17.200 Nicotine dependence, unspecified, uncomplicated; Z90.49 Acquired absence of other specified parts of digestive tract; Z79.51 Long term (current) use of inhaled steroids; Z79.899 Other long term (current) drug therapy
CPT/HCPCS: 36415; 93005; 85379; 80053; 82150; 82550; 82553; 83690; 83735; 84484; 85025; 85610; 85730; 99285; 96374; 96375; J2060; J2405; 99284

== ENCOUNTER 2017-08-27 23:26 | Inpatient (IN) | payer MEDICARE, OTHER ==
[2017-08-27] MEDS ORDERED: SODIUM CHLORIDE 0.9% 2,000 ML IV STA (23:56)
[2017-08-28 00:12] LABS: Basophils % (A) 0 %; Eosinophils # (A) 0.1 k/uL (0-0.7); Eosinophils % (A) 1 %; HCT 39.7 % (39.0-53.0); Lymphocytes # (A) 1.3 k/uL (1.0-4.8); Lymphocytes % (A) 8 %; MCH 31.1 pg (25.0-35.0); MCHC 32.8 g/dL (31.0-37.0); MCV 94.7 fL (80.0-100.0); Mean Platelet Volume 7.4; Monocytes # (A) 0.9 k/uL (0-1.0); Monocytes % (A) 6 %; Neutrophils # (A) 13.4 k/uL (1.3-7.7); Neutrophils % (A) 85 %; Platelet Count 486 k/uL (150-450); RBC 4.19 m/uL (4.30-5.90); RDW 13.6 % (11.5-15.5); WBC 15.7 k/uL (3.8-10.6)
[2017-08-28 00:23] LABS: Albumin 3.2 g/dL (3.5-5.0); Calcium 9.6 mg/dL (8.4-10.2); Potassium 4.2 mmol/L (3.5-5.1); Total Bilirubin 0.3 mg/dL (0.2-1.3); Total Protein 6.2 g/dL (6.3-8.2)
--- NOTE | 2017-08-28 00:32 | XR ---
EXAMINATION TYPE: XR chest 2V DATE OF EXAM: 08/28/2017 COMPARISON: 08/24/2017 HISTORY: Fever TECHNIQUE: Frontal and lateral views of the chest are obtained. FINDINGS: Heart and mediastinum are normal. Lungs are clear. Diaphragm is normal. There is neurostim ulator in the thoracic spine. Bony thorax is intact. IMPRESSION: Normal chest. No change.
[2017-08-28] MEDS ORDERED: KETOROLAC 30 MG/ML 1 ML VIAL IVP STA (00:40)
[2017-08-28] MEDS ORDERED: NALOXONE 0.4 MG/ML 1 ML VIAL IV PRN (00:43)
--- NOTE | 2017-08-28 00:43 | ED ---
Abdominal Pain HPI - General Source: patient, RN notes reviewed Mode of arrival: wheelchair Limitations: no limitations <Ten Quigley - Last Filed: 08/28/17 00:43> <Booker Quispe - Last Filed: 08/28/17 01:16> - General Chief Complaint: Abdominal Pain Stated Complaint: Chest Pain, Abdominal Pain Time Seen by Provider: 08/27/17 23:56 - History of Present Illness Initial Comments: 47-year-old male presents emergency Department chief complaint abdominal discomfort. Patient states been present for last few days. Patient did see primary care physician today who felt that was not much at the time. Patient states that he was discontinued off of his and abuse. Patient does have a history of alcohol drinking states his been sober. Patient had several ER visits for similar complaints. Patient denies any fevers chills. He states pain is rated to stress denies any shortness of breath, headache or dizziness. He doesn't to some nausea vomiting no diarrhea no constipation (Ten Quigley) - Related Data Home Medications Medication Instructions Recorded Confirmed Atorvastatin [Lipitor] 10 mg PO HS 09/27/15 08/24/17 Albuterol Inhaler [Ventolin Hfa 2 puff INHALATION RT-Q4H PRN 03/01/17 08/24/17 Inhaler] Budesonide/Formoterol Fumarate 1 puff INHALATION RT-BID 04/04/17 08/24/17 [Symbicort 80-4.5 Mcg Inhaler] traZODone HCL 50 mg PO HS 04/04/17 08/24/17 DULoxetine HCL [Cymbalta] 60 mg PO DAILY 07/18/17 08/24/17 Gabapentin [Neurontin] 400 mg PO TID 07/18/17 08/24/17 Previous Rx's Medication Instructions Recorded Folic Acid 1 mg PO DAILY #30 tablet 07/15/15 LORazepam [Ativan] 0.5 mg PO TID PRN #30 tab 12/22/16 Omeprazole [PriLOSEC] 40 mg PO BID #60 capsule. 05/16/17 Ondansetron Odt [Zofran ODT] 4 mg PO Q8HR PRN #20 tab 07/20/17 Acetaminophen Tab [Tylenol] 650 mg PO Q4HR PRN tab 08/23/17 Naltrexone HCl [Revia] 50 mg PO DAILY #30 tablet 08/23/17 Nicotine 14Mg/24Hr Patch [Habitrol] 1 patch TRANSDERM DAILY #10 patch 08/23/17 cloNIDine HCL [Catapres] 0.1 mg PO TID #30 tab 08/23/17 Hydrocodone/Acetaminophen [[place] 1 each PO Q6HR PRN #12 tab 08/24/17 5-325] Ibuprofen 800 mg PO Q6HR PRN #20 tablet 08/24/17 Magnesium 200 mg PO DAILY #14 tablet 08/24/17 chlordiazePOXIDE HCl [Librium] 25 mg PO TID #12 capsule 08/25/17 Allergies Allergy/AdvReac Type Severity Reaction Status Date / Time No Known Allergies Allergy Verified 08/27/17 23:32 Review of Systems ROS Other: All systems not noted in ROS Statement are negative. <Ten Quigley - Last Filed: 08/28/17 00:43> ROS Other: All systems not noted in ROS Statement are negative. <Booker Quispe - Last Filed: 08/28/17 01:16> ROS Statement: Those systems with pertinent positive or pertinent negative responses have been documented in the HPI. Past Medical History Past Medical History: GERD/Reflux, Hyperlipidemia, Pneumonia, Prostate Disorder Additional Past Medical History / Comment(s): ETOH ABUSE, RECURRANT PANCREATITIS , ALCOHOLIC HEPATITIS, NEPHROLITHIASIS, hx of CHRONIC URINARY RETENTION DUE TO BACK PROBLEMS-SELF CATHS.UTI. CHRONIC LOW BACK PAIN. History of Any Multi-Drug Resistant Organisms: None Reported Past Surgical History: Back Surgery, Cholecystectomy, Orthopedic Surgery Additional Past Surgical History / Comment(s): Bronchoscopy, BACK surgeries with TITANIUM PLATES MILTON and CAGES, KIDNEY STONES removed per pt, SPINAL CORD STIMULATOR, ISMAEL KNEE ARTHROSCOPIES, PINKY FINGER RT HAND REATTATCHED Past Anesthesia/Blood Transfusion Reactions: No Reported Reaction Past Psychological History: Anxiety, Depression Smoking Status: Heavy tobacco smoker Past Alcohol Use History: Occasional Past Drug Use History: None Reported - Past Family History Father Family Medical History: Diabetes Mellitus Additional Family Medical History / Comment(s): Mother Family Medical History: Dementia, Hyperlipidemia, Hypertension Additional Family Medical History / Comment(s): Mother is living. <Ten Quigley - Last Filed: 08/28/17 00:43> General Exam Limitations: no limitations General appearance: alert, in no apparent distress Head exam: Present: atraumatic, normocephalic, normal inspection Respiratory exam: Present: normal lung sounds bilaterally. Absent: respiratory distress, wheezes, rales, rhonchi, stridor Cardiovascular Exam: Present: normal rhythm, tachycardia, normal heart sounds. Absent: systolic murmur, diastolic murmur, rubs, gallop, clicks GI/Abdominal exam: Present: soft, tenderness (Moderate midabdominal tenderness) , normal bowel sounds. Absent: distended, guarding, rebound, rigid Back exam: Absent: CVA tenderness (R), CVA tenderness (L) Skin exam: Present: warm, dry, intact, normal color. Absent: rash <Ten Quigley - Last Filed: 08/28/17 00:43> Vital Signs 08/27/17 23:27 Temperature 100.2 F H Pulse Rate 114 H Respiratory 16 Rate Blood Pressure 128/71 O2 Sat by Pulse 100 Oximetry Medical Decision Making - Lab Data Result diagrams: 08/27/17 23:57 08/27/17 23:57 <Ten Quigley - Last Filed: 08/28/17 00:43> - Lab Data Result diagrams: 08/27/17 23:57 08/27/17 23:57 <Booker Quispe - Last Filed: 08/28/17 01:16> - Medical Decision Making Patient reevaluated by myself, Dr. Quispe. Patient resting comfortably in bed. Abdomen soft with mild to moderate epigastric tenderness to palpation. Case discussed in detail with Dr. Woodson who is familiar with this patient and did see him earlier yesterday. No computed tomography scan at this time however he will admit. No consults at this time. Patient has had multiple previous CTs, last the beginning of this month. Patient states his symptoms are similar to his chronic pancreatitis. (Booker Quispe) - Lab Data Lab Results 08/27/17 08/27/17 08/27/17 Range/Units 23:57 23:57 23:57 WBC 15.7 H (3.8-10.6) k/uL RBC 4.19 L (4.30-5.90) m/uL Hgb 13.0 (13.0-17.5) gm/dL Hct 39.7 (39.0-53.0) % MCV 94.7 (80.0-100.0) fL MCH 31.1 (25.0-35.0) pg MCHC 32.8 (31.0-37.0) g/dL RDW 13.6 (11.5-15.5) % Plt Count 486 H (150-450) k/uL Neutrophils % 85 % Lymphocytes % 8 % Monocytes % 6 % Eosinophils % 1 % Basophils % 0 % Neutrophils # 13.4 H (1.3-7.7) k/uL Lymphocytes # 1.3 (1.0-4.8) k/uL Monocytes # 0.9 (0-1.0) k/uL Eosinophils # 0.1 (0-0.7) k/uL Basophils # 0.0 (0-0.2) k/uL Sodium 140 (137-145) mmol/L Potassium 4.2 (3.5-5.1) mmol/L Chloride 106 (98-107) mmol/L Carbon Dioxide 23 (22-30) mmol/L Anion Gap 11 mmol/L BUN 12 (9-20) mg/dL Creatinine 1.20 (0.66-1.25) mg/dL Est GFR (CKD-EPI)AfAm 82 (>60 ml/min/1.73 sqM) Est GFR (CKD-EPI)NonAf 71 (>60 ml/min/1.73 sqM) Glucose 127 H (74-99) mg/dL Plasma Lactic Acid Bandar 0.9 (0.7-2.0) mmol/L Calcium 9.6 (8.4-10.2) mg/dL Total Bilirubin 0.3 (0.2-1.3) mg/dL AST 12 L (17-59) U/L ALT 20 L (21-72) U/L Alkaline Phosphatase 108 (38-126) U/L Troponin I (0.000-0.034) ng/mL Total Protein 6.2 L (6.3-8.2) g/dL Albumin 3.2 L (3.5-5.0) g/dL Amylase 245 H (30-110) U/L Lipase 2979 H (23-300) U/L 08/27/17 Range/Units 23:57 WBC (3.8-10.6) k/uL RBC (4.30-5.90) m/uL Hgb (13.0-17.5) gm/dL Hct (39.0-53.0) % MCV (80.0-100.0) fL MCH (25.0-35.0) pg MCHC (31.0-37.0) g/dL RDW (11.5-15.5) % Plt Count (150-450) k/uL Neutrophils % % Lymphocytes % % Monocytes % % Eosinophils % % Basophils % % Neutrophils # (1.3-7.7) k/uL Lymphocytes # (1.0-4.8) k/uL Monocytes # (0-1.0) k/uL Eosinophils # (0-0.7) k/uL Basophils # (0-0.2) k/uL Sodium (137-145) mmol/L Potassium (3.5-5.1) mmol/L Chloride (98-107) mmol/L Carbon Dioxide (22-30) mmol/L Anion Gap mmol/L BUN (9-20) mg/dL Creatinine (0.66-1.25) mg/dL Est GFR (CKD-EPI)AfAm (>60 ml/min/1.73 sqM) Est GFR (CKD-EPI)NonAf (>60 ml/min/1.73 sqM) Glucose (74-99) mg/dL Plasma Lactic Acid Bandar (0.7-2.0) mmol/L Calcium (8.4-10.2) mg/dL Total Bilirubin (0.2-1.3) mg/dL AST (17-59) U/L ALT (21-72) U/L Alkaline Phosphatase (38-126) U/L Troponin I <0.012 (0.000-0.034) ng/mL Total Protein (6.3-8.2) g/dL Albumin (3.5-5.0) g/dL Amylase (30-110) U/L Lipase (23-300) U/L Disposition <Ten Quigley - Last Filed: 08/28/17 00:43> <Booker Quispe - Last Filed: 08/28/17 01:16> Clinical Impression: Acute on chronic pancreatitis, Nausea & vomiting Disposition: ADMITTED IP TO THIS [facility] Condition: Stable Referrals: Carrillo Leo Jr, [Primary Care Provider] - 1-2 days
[2017-08-28] MEDS: ONDANSETRON 4 MG/2 ML VIAL IVP PRN ×4 (01:14→19:51)
[2017-08-28 03:01] VITALS: BMI 24.0
[2017-08-28] MEDS: SODIUM CHLORIDE 0.9% 1,000 ML IV SCH ×3 (03:21→18:31)
[2017-08-28] MEDS: HYDROmorphone 2 MG TAB PO PRN ×3 (03:37→10:52)
[2017-08-28] MEDS: HYDROcodone/APAP 5-325MG 1 EACH TAB PO PRN ×2 (05:43→09:34)
[2017-08-28] MEDS ORDERED: ONDANSETRON 4 MG/2 ML VIAL IVP PRN (06:46)
[2017-08-28] MEDS: KETOROLAC 30 MG/ML 1 ML VIAL IVP PRN ×3 (08:10→19:55)
[2017-08-28] MEDS: NICOTINE 14MG/24HR PATCH TRANSDERM SCH (08:10)
[2017-08-28 09:27] LABS: Appearance,Urine Cloudy (Clear); Bacteria,Urine Occasional /hpf; Bilirubin,Urine Negative (Negative); Blood,Urine Negative (Negative); Budding Yeast,Urine Many /hpf; Color,Urine Yellow; Glucose,Urine (UA) Negative (Negative); Ketones,Urine Negative (Negative); Leukocyte Esterase,Urine Moderate (Negative); Mucus,Urine Rare /hpf; Nitrite,Urine Negative (Negative); PH, Urine 5.5 (5.0-8.0); Protein,Urine Negative (Negative); RBC,Urine 15 /hpf (0-5); Specific Gravity,Urine 1.011 (1.001-1.035); Urobilinogen,Urine <2.0 mg/dL (<2.0); WBC,Urine 31 /hpf (0-5)
[2017-08-28] MEDS ORDERED: IBUPROFEN 800 MG TAB PO PRN (11:31)
--- NOTE | 2017-08-28 11:41 | P.HPIM ---
History of Present Illness H&P Date: 08/28/17 Chief Complaint: Abdominal pain 47-year-old male who presented to the emergency room with a chief complaint of abdominal pain. The patient states he was having severe abdominal pain and epigastic pain. He states the pain goes through his whole abdomen into his back. Reports nausea and vomiting. Denies shortness of breath or chest pain. Patient denies any alcohol use since his last hospital admission. His case was discussed with Dr. Kellogg during his previous admission who stated that an EGD would not be beneficial and the patient was to follow up with Dr. Kellogg in 2-3 weeks. The patient was prescribed Clonidine 0.1mg TID and ReVia at the time of discharge of his last admission. Apparently, the patient could not afford ReVia and he was switched to Antabuse. The patient states he took 1 dose of antabuse and became very nauseous and was vomiting. He denies alcohol use. The patient was recently admitted from 08/12/2017 until 08/14/2017 and also 2017 until 08/24/2017 for pancreatitis. The patient also presented to the ER on 08/24/2017 and 08/25/2017 but was not admitted. This is the patients 13th time to [facility] in 2018 (ER visits and inpatient admissions). The patient has a history of chronic pancreatitis, alcohol abuse, chronic back pain, urinary retention, anxiety, and depression. Chest x-ray: unremarkable Laboratory data: WBC 15.7. Hemoglobin 13.0. Platelet count 286. Sodium 140. Potassium 4.2. BUN 12. Creatinine 1.20. Glucose 127. AST 12. ALT 20. Amylase 245. Lipase 2979. Urinalysis reveals: Moderate leukocyte esterase, RBC 15, WBC 31, occasional bacteria The patient was admitted to the hospital under the care of Dr. Leo. Review of Systems Those systems with pertinent positive or pertinent negative responses have been documented in the HPI Past Medical History Past Medical History: GERD/Reflux, Hyperlipidemia, Pneumonia, Prostate Disorder Additional Past Medical History / Comment(s): ETOH ABUSE, RECURRANT PANCREATITIS , ALCOHOLIC HEPATITIS, NEPHROLITHIASIS, hx of CHRONIC URINARY RETENTION DUE TO BACK PROBLEMS-SELF CATHS.UTI. CHRONIC LOW BACK PAIN. History of Any Multi-Drug Resistant Organisms: None Reported Past Surgical History: Back Surgery, Cholecystectomy, Orthopedic Surgery Additional Past Surgical History / Comment(s): Bronchoscopy, BACK surgeries with TITANIUM PLATES MILTON and CAGES, KIDNEY STONES removed per pt, SPINAL CORD STIMULATOR, ISMAEL KNEE ARTHROSCOPIES, PINKY FINGER RT HAND REATTATCHED Past Anesthesia/Blood Transfusion Reactions: No Reported Reaction Past Psychological History: Anxiety, Depression Additional Psychological History / Comment(s): PT LIVES AT HOME WITH in a 2 story home that has 3 porch steps/7 steps to 2nd floor.. IS DISABLED WORKED [employer] IN PAST. NO SERVICE.. uses either walker or w/c also has shower chair and raised toilet seat. He does not drive, his can drive. Smoking Status: Heavy tobacco smoker Past Alcohol Use History: Occasional Additional Past Alcohol Use History / Comment(s): Smokes 1-2 packs per day; Patient reports drinking 1-2 beers daily in the evening. Past Drug Use History: None Reported Additional Drug Use History / Comment(s): Patient reports that he has not used Marijuana in 12 months. Pt. states he has not had any alcohol in 9 days. - Past Family History Father Family Medical History: Diabetes Mellitus Additional Family Medical History / Comment(s): Mother Family Medical History: Dementia, Hyperlipidemia, Hypertension Additional Family Medical History / Comment(s): Mother is living. Medications and Allergies Home Medications Medication Instructions Recorded Confirmed Type Folic Acid 1 mg PO DAILY #30 tablet 07/15/15 08/28/17 Rx Atorvastatin [Lipitor] 10 mg PO HS 09/27/15 08/28/17 History LORazepam [Ativan] 0.5 mg PO TID PRN #30 tab 12/22/16 08/28/17 Rx Albuterol Inhaler [Ventolin Hfa 2 puff INHALATION RT-Q4H PRN 03/01/17 08/28/17 History Inhaler] Budesonide/Formoterol Fumarate 1 puff INHALATION RT-BID 04/04/17 08/28/17 History [Symbicort 80-4.5 Mcg Inhaler] traZODone HCL 50 mg PO HS 04/04/17 08/28/17 History Omeprazole [PriLOSEC] 40 mg PO BID #60 capsule. 05/16/17 08/28/17 Rx DULoxetine HCL [Cymbalta] 60 mg PO DAILY 07/18/17 08/28/17 History Gabapentin [Neurontin] 400 mg PO TID 07/18/17 08/28/17 History Ondansetron Odt [Zofran ODT] 4 mg PO Q8HR PRN #20 tab 07/20/17 08/28/17 Rx Acetaminophen Tab [Tylenol] 650 mg PO Q4HR PRN tab 08/23/17 08/28/17 Rx Naltrexone HCl [Revia] 50 mg PO DAILY #30 tablet 08/23/17 08/28/17 Rx cloNIDine HCL [Catapres] 0.1 mg PO TID #30 tab 08/23/17 08/28/17 Rx Ibuprofen 800 mg PO Q6HR PRN #20 tablet 08/24/17 08/28/17 Rx Magnesium 200 mg PO DAILY #14 tablet 08/24/17 08/28/17 Rx chlordiazePOXIDE HCl [Librium] 25 mg PO TID #12 capsule 08/25/17 08/28/17 Rx Hydrocodone/Acetaminophen [[place] 1 tab PO Q6HR PRN 08/28/17 08/28/17 History 5-325] Allergies Allergy/AdvReac Type Severity Reaction Status Date / Time No Known Allergies Allergy Verified 08/28/17 07:34 Physical Exam Vitals: Vital Signs Temp Pulse Pulse Resp BP BP Pulse Ox 08/28/17 07:00 97.5 F L 100 16 146/98 100 08/28/17 03:07 99 F 93 133/77 100 08/28/17 02:03 99 F 93 134/77 100 08/27/17 23:27 100.2 F H 114 H 16 128/71 100 Intake and Output 08/27/17 08/28/17 08/28/17 22:59 06:59 14:59 Other: Voiding Method Toilet # Voids 0 0 Weight 67.5 kg 67.5 kg GENERAL: This is a 47-year-old male in no apparent distress at the time of examination. Pleasant and cooperative. HEENT: Head is atraumatic, normocephalic. Pupils are equal, round, and reactive to light. Sclerae anicteric. Conjunctivae are clear. Mucus membranes of the mouth are moist. Neck is supple. RESPIRATORY: Clear to ausculation. No wheezes, rales, or rhonchi. No use of accessory muscles. Patient maintaining oxygen saturation greater than 92%. No chest wall tenderness is noted on palpation or with deep breathing. CARDIOVASCULAR: Regular rate and rhythm. S1 and S2 noted. No systolic or diastolic murmur auscultated. No JVD noted. No S3 or S4 noted. GASTROINTESTINAL: Abdomen soft and round. Bowel sounds auscultated x 4 quadrants. Pain and tenderness noted upon palpation of all 4 quadrants. INTEGUMENTARY: No cyanosis. No jaundice. No rashes noted. No cellulitis noted. EXTREMITIES: 2+ peripheral pulses. No evidence of peripheral edema. No calf tenderness noted. NEUROLOGIC: Cranial nerves II-XII intact. PSYCHIATRIC: Awake, alert, and oriented X 3. Appropriate affect. Intact judgement and insight. Results CBC & Chem 7: 08/27/17 23:57 08/27/17 23:57 Labs: Abnormal Lab Results - Last 24 Hours (Table) 08/27/17 08/27/17 08/28/17 Range/Units 23:57 23:57 08:30 WBC 15.7 H (3.8-10.6) k/uL RBC 4.19 L (4.30-5.90) m/uL Plt Count 486 H (150-450) k/uL Neutrophils # 13.4 H (1.3-7.7) k/uL Glucose 127 H (74-99) mg/dL AST 12 L (17-59) U/L ALT 20 L (21-72) U/L Total Protein 6.2 L (6.3-8.2) g/dL Albumin 3.2 L (3.5-5.0) g/dL Amylase 245 H (30-110) U/L Lipase 2979 H (23-300) U/L Ur Leukocyte Esterase Moderate H (Negative) Urine RBC 15 H (0-5) /hpf Urine WBC 31 H (0-5) /hpf Urine Bacteria Occasional H (None) /hpf Urine Mucus Rare H (None) /hpf Urine Yeast (Budding) Many H (None) /hpf Thrombosis Risk Factor Assmnt - Choose All That Apply Any of the Below Risk Factors Present?: Yes Each Factor Represents 1 point: Age 41-60 years Other Risk Factors: No Thrombosis Risk Factor Assessment Total Risk Factor Score: 1 Thrombosis Risk Factor Assessment Level: Low Risk Assessment and Plan Plan: ASSESSMENT: Acute on chronic pancreatitis, secondary to ETOH abuse, patient denies current alcohol use History of alcohol abuse Recent hospitalization for pancreatitis, August 2017 Recent hospitalization for pancreatitis and hematemesis, July 2017 Bacteriuria, likely colonization secondary to chronic urinary retention, patient asymptomatic Chronic urinary retention requiring self cath Chronic low back back Anxiety, unspecified Depression, unspecified Nicotine dependence, patient is a current cigarette smoker PLAN: Continue IV fluids Continue clear liquid diet Obtain urine alcohol level Discontinue [place] and dilaudid. Continue Toradol PRN Resume Tylenol #3 (Patient was taking for chronic back pain during last admission) Continue Zofran Home meds as appropriate Monitor labs GI prophylaxis: Protonix 40 mg IV Daily DVT prophylaxis: MARGA hose to bilateral lower extremities Monitor vital signs and address as appropriate Further recommendations pending patient's course Nurse practitioner note has been reviewed by physician. Signing provider agrees with the documented findings, assessment, and plan of care.
[2017-08-28] MEDS: ACETAMINOPHEN TAB 325 MG TAB PO PRN (13:02)
[2017-08-28] MEDS: GABAPENTIN 400 MG CAP PO SCH ×2 (16:17→21:31)
[2017-08-28] MEDS: DIAZEPAM 5 MG TAB PO SCH ×2 (16:17→21:31)
[2017-08-28] MEDS: cloNIDine HCL 0.1 MG TAB PO SCH ×3 (16:17→22:29)
[2017-08-28 16:25] LABS: Urine Alcohol Negative (Negative); Urine Barbiturate Negative (Negative); Urine Cocaine Negative (Negative); Urine Methadone Negative (Negative); Urine Opiates Negative (Negative); Urine Phencyclidine Negative (Negative)
[2017-08-28] MEDS: ALBUTEROL NEBULIZED 2.5 MG/3 ML INHALATION PRN (16:34)
[2017-08-28] MEDS: Acetaminophen-Codeine 300-30mg TAB PO PRN (17:49)
[2017-08-28] MEDS: traZODone HCL 50 MG TAB PO SCH (21:04)
[2017-08-28] MEDS: ATORVASTATIN 10 MG TAB PO SCH (21:04)
[2017-08-28] MEDS: SYMBICORT 80-4.5 MCG INHALER INHALATION SCH (21:29)
[2017-08-29] MEDS: Acetaminophen-Codeine 300-30mg TAB PO PRN ×4 (00:52→19:40)
[2017-08-29] MEDS: SODIUM CHLORIDE 0.9% 1,000 ML IV SCH ×3 (02:21→17:23)
[2017-08-29] MEDS: ONDANSETRON 4 MG/2 ML VIAL IVP PRN ×3 (03:19→17:40)
[2017-08-29] MEDS: KETOROLAC 30 MG/ML 1 ML VIAL IVP PRN ×3 (03:19→17:40)
[2017-08-29] MEDS: SYMBICORT 80-4.5 MCG INHALER INHALATION SCH ×2 (08:21→20:30)
[2017-08-29] MEDS: GABAPENTIN 400 MG CAP PO SCH ×3 (08:31→21:09)
[2017-08-29] MEDS: cloNIDine HCL 0.1 MG TAB PO SCH ×3 (08:31→21:09)
[2017-08-29] MEDS: DIAZEPAM 5 MG TAB PO SCH ×3 (08:31→21:09)
[2017-08-29] MEDS: NICOTINE 14MG/24HR PATCH TRANSDERM SCH (08:31)
[2017-08-29] MEDS: DULoxetine HCL 60 MG CAPSULE.DR PO SCH (08:32)
[2017-08-29] MEDS: MAGNESIUM OXIDE 400 MG TAB PO SCH (08:32)
[2017-08-29] MEDS: PANTOPRAZOLE 40 MG/10 ML VIAL IVP SCH (08:33)
[2017-08-29 09:07] LABS: Basophils % (A) 0 %; Eosinophils # (A) 0.1 k/uL (0-0.7); Eosinophils % (A) 1 %; HGB 11.7 gm/dL (13.0-17.5); Lymphocytes # (A) 0.9 k/uL (1.0-4.8); Lymphocytes % (A) 8 %; MCH 30.9 pg (25.0-35.0); MCHC 32.5 g/dL (31.0-37.0); MCV 95.2 fL (80.0-100.0); Mean Platelet Volume 7.2; Monocytes # (A) 0.6 k/uL (0-1.0); Monocytes % (A) 6 %; Neutrophils # (A) 9.8 k/uL (1.3-7.7); Neutrophils % (A) 86 %; Platelet Count 348 k/uL (150-450); RBC 3.79 m/uL (4.30-5.90); RDW 13.1 % (11.5-15.5); WBC 11.4 k/uL (3.8-10.6)
[2017-08-29 09:30] LABS: ALT 17 U/L (21-72); AST 11 U/L (17-59); Albumin 2.4 g/dL (3.5-5.0); Alkaline Phosphatase 86 U/L (38-126); Amylase 127 U/L (30-110); Anion Gap 8 mmol/L; Blood Urea Nitrogen 6 mg/dL (9-20); Calcium 8.2 mg/dL (8.4-10.2); Carbon Dioxide 23 mmol/L (22-30); Chloride 108 mmol/L (98-107); Glucose 84 mg/dL (74-99); Lipase 708 U/L (23-300); Potassium 3.9 mmol/L (3.5-5.1); Sodium 139 mmol/L (137-145); Total Bilirubin 0.5 mg/dL (0.2-1.3); Total Protein 5.1 g/dL (6.3-8.2)
--- NOTE | 2017-08-29 12:36 | P.PN ---
Subjective Progress Note Date: 08/29/17 47-year-old male who presented to the emergency room with a chief complaint of abdominal pain. The patient states he was having severe abdominal pain and epigastic pain. He states the pain goes through his whole abdomen into his back. Reports nausea and vomiting. Denies shortness of breath or chest pain. Patient denies any alcohol use since his last hospital admission. His case was discussed with Dr. Kellogg during his previous admission who stated that an EGD would not be beneficial and the patient was to follow up with Dr. Kellogg in 2-3 weeks. The patient was prescribed Clonidine 0.1mg TID and ReVia at the time of discharge of his last admission. Apparently, the patient could not afford ReVia and he was switched to Antabuse. The patient states he took 1 dose of antabuse and became very nauseous and was vomiting. He denies alcohol use. The patient was recently admitted from 08/12/2017 until 08/14/2017 and also 2017 until 08/24/2017 for pancreatitis. The patient also presented to the ER on 08/24/2017 and 08/25/2017 but was not admitted. This is the patients 13th time to [facility] in 2018 (ER visits and inpatient admissions). The patient has a history of chronic pancreatitis, alcohol abuse, chronic back pain, urinary retention, anxiety, and depression. Chest x-ray: unremarkable Laboratory data: WBC 15.7. Hemoglobin 13.0. Platelet count 286. Sodium 140. Potassium 4.2. BUN 12. Creatinine 1.20. Glucose 127. AST 12. ALT 20. Amylase 245. Lipase 2979. Urinalysis reveals: Moderate leukocyte esterase, RBC 15, WBC 31, occasional bacteria The patient was admitted to the hospital under the care of Dr. Leo. 08/29/2017 Patient seen and examined at the bedside. Amylase today is 127, down from 245. Lipase is 708, down from 2979. Patient was lethargic upon examination and took provider multiple attempts to wake patient up. Patient states he is having a lot of pain and is having a hard time getting comfortable. Patient states he did not consume his clear liquid breakfast due to nausea. Denies vomiting. Objective - Vital Signs Vital signs: Vital Signs Temp 99.1 F 08/29/17 06:38 Pulse 97 08/29/17 06:38 Resp 16 08/29/17 06:38 BP 153/98 08/29/17 06:38 Pulse Ox 98 08/29/17 06:38 Intake & Output 08/28/17 08/29/17 08/29/17 18:59 06:59 18:59 Weight 67.5 kg Other: Voiding Method Toilet # Voids 3 2 - Exam GENERAL: This is a 47-year-old male in no apparent distress at the time of examination. Pleasant and cooperative. HEENT: Head is atraumatic, normocephalic. Pupils are equal, round, and reactive to light. Sclerae anicteric. Conjunctivae are clear. Mucus membranes of the mouth are moist. Neck is supple. RESPIRATORY: Clear to ausculation. No wheezes, rales, or rhonchi. No use of accessory muscles. Patient maintaining oxygen saturation greater than 92%. No chest wall tenderness is noted on palpation or with deep breathing. CARDIOVASCULAR: Regular rate and rhythm. S1 and S2 noted. No systolic or diastolic murmur auscultated. No JVD noted. No S3 or S4 noted. GASTROINTESTINAL: Abdomen soft and round. Bowel sounds auscultated x 4 quadrants. Pain and tenderness noted upon palpation of all 4 quadrants. INTEGUMENTARY: No cyanosis. No jaundice. No rashes noted. No cellulitis noted. EXTREMITIES: 2+ peripheral pulses. No evidence of peripheral edema. No calf tenderness noted. NEUROLOGIC: Cranial nerves II-XII intact. PSYCHIATRIC: Awake, alert, and oriented X 3. Appropriate affect. Intact judgement and insight. - Labs CBC & Chem 7: 08/29/17 08:44 08/29/17 08:44 Labs: Abnormal Lab Results - Last 24 Hours (Table) 08/28/17 08/29/17 08/29/17 Range/Units 08:30 08:44 08:44 WBC 11.4 H (3.8-10.6) k/uL RBC 3.79 L (4.30-5.90) m/uL Hgb 11.7 L (13.0-17.5) gm/dL Hct 36.0 L (39.0-53.0) % Neutrophils # 9.8 H (1.3-7.7) k/uL Lymphocytes # 0.9 L (1.0-4.8) k/uL Chloride 108 H (98-107) mmol/L BUN 6 L (9-20) mg/dL Creatinine 0.56 L (0.66-1.25) mg/dL Calcium 8.2 L (8.4-10.2) mg/dL AST 11 L (17-59) U/L ALT 17 L (21-72) U/L Total Protein 5.1 L (6.3-8.2) g/dL Albumin 2.4 L (3.5-5.0) g/dL Amylase 127 H (30-110) U/L Lipase 708 H (23-300) U/L U Benzodiazepines Scrn Positive H (Negative) ng/mL Microbiology - Last 24 Hours (Table) 08/27/17 23:57 Blood Culture - Preliminary Blood No Growth after 24 hours Assessment and Plan Plan: ASSESSMENT: Acute on chronic pancreatitis, secondary to ETOH abuse, patient denies current alcohol use History of alcohol abuse Recent hospitalization for pancreatitis, August 2017 Recent hospitalization for pancreatitis and hematemesis, July 2017 Bacteriuria, likely colonization secondary to chronic urinary retention, patient asymptomatic Chronic urinary retention requiring self cath Chronic low back back Anxiety, unspecified Depression, unspecified Nicotine dependence, patient is a current cigarette smoker PLAN: Continue IV fluids Continue clear liquid diet. If patients nausea improves, may advance to full liquid Resume Tylenol #3 (Patient was taking for chronic back pain during last admission) Continue Toradol PRN Continue Zofran Repeat labs in the AM Home meds as appropriate GI prophylaxis: Protonix 40 mg IV Daily DVT prophylaxis: MARGA hose to bilateral lower extremities Monitor vital signs and address as appropriate Further recommendations pending patient's course Nurse practitioner note has been reviewed by physician. Signing provider agrees with the documented findings, assessment, and plan of care.
[2017-08-29] MEDS: FOLIC ACID 1 MG TAB PO SCH (13:06)
[2017-08-29] MEDS: ACETAMINOPHEN TAB 325 MG TAB PO PRN ×2 (16:10→20:12)
[2017-08-29] MEDS: traZODone HCL 50 MG TAB PO SCH (20:12)
[2017-08-29] MEDS: ATORVASTATIN 10 MG TAB PO SCH (20:47)
[2017-08-30] MEDS: KETOROLAC 30 MG/ML 1 ML VIAL IVP PRN ×4 (00:01→17:48)
[2017-08-30] MEDS: ONDANSETRON 4 MG/2 ML VIAL IVP PRN ×2 (00:02→05:45)
[2017-08-30] MEDS: SODIUM CHLORIDE 0.9% 1,000 ML IV SCH ×6 (00:27→22:09)
[2017-08-30] MEDS: Acetaminophen-Codeine 300-30mg TAB PO PRN ×3 (03:54→19:06)
[2017-08-30 08:08] LABS: Basophils % (A) 0 %; Eosinophils # (A) 0.1 k/uL (0-0.7); Eosinophils % (A) 1 %; HCT 34.6 % (39.0-53.0); HGB 11.1 gm/dL (13.0-17.5); Lymphocytes # (A) 0.8 k/uL (1.0-4.8); Lymphocytes % (A) 10 %; MCH 30.9 pg (25.0-35.0); MCV 96.4 fL (80.0-100.0); Mean Platelet Volume 7.6; Monocytes # (A) 0.5 k/uL (0-1.0); Monocytes % (A) 6 %; Neutrophils # (A) 6.9 k/uL (1.3-7.7); Neutrophils % (A) 82 %; Platelet Count 301 k/uL (150-450); RBC 3.59 m/uL (4.30-5.90); RDW 13.1 % (11.5-15.5); WBC 8.4 k/uL (3.8-10.6)
[2017-08-30] MEDS: GABAPENTIN 400 MG CAP PO SCH ×3 (08:13→22:08)
[2017-08-30] MEDS: DULoxetine HCL 60 MG CAPSULE.DR PO SCH (08:13)
[2017-08-30] MEDS: NICOTINE 14MG/24HR PATCH TRANSDERM SCH (08:13)
[2017-08-30] MEDS: PANTOPRAZOLE 40 MG/10 ML VIAL IVP SCH (08:13)
[2017-08-30] MEDS: cloNIDine HCL 0.1 MG TAB PO SCH ×3 (08:13→22:04)
[2017-08-30] MEDS: MAGNESIUM OXIDE 400 MG TAB PO SCH (08:13)
[2017-08-30] MEDS: DIAZEPAM 5 MG TAB PO SCH ×3 (08:13→22:03)
[2017-08-30] MEDS: FOLIC ACID 1 MG TAB PO SCH (08:13)
[2017-08-30] MEDS: ACETAMINOPHEN TAB 325 MG TAB PO PRN (08:13)
[2017-08-30 08:20] LABS: ALT 17 U/L (21-72); AST 13 U/L (17-59); Albumin 2.1 g/dL (3.5-5.0); Alkaline Phosphatase 90 U/L (38-126); Amylase 49 U/L (30-110); Anion Gap 7 mmol/L; Blood Urea Nitrogen 5 mg/dL (9-20); Calcium 7.7 mg/dL (8.4-10.2); Carbon Dioxide 20 mmol/L (22-30); Chloride 110 mmol/L (98-107); Glucose 80 mg/dL (74-99); Lipase 206 U/L (23-300); Potassium 3.7 mmol/L (3.5-5.1); Sodium 137 mmol/L (137-145); Total Bilirubin 0.5 mg/dL (0.2-1.3); Total Protein 4.5 g/dL (6.3-8.2)
[2017-08-30] MEDS: SYMBICORT 80-4.5 MCG INHALER INHALATION SCH ×2 (08:37→20:08)
[2017-08-30] MEDS: ALBUTEROL NEBULIZED 2.5 MG/3 ML INHALATION PRN ×2 (08:37→20:08)
--- NOTE | 2017-08-30 10:47 | P.PN ---
Subjective Progress Note Date: 08/30/17 47-year-old male who presented to the emergency room with a chief complaint of abdominal pain. The patient states he was having severe abdominal pain and epigastic pain. He states the pain goes through his whole abdomen into his back. Reports nausea and vomiting. Denies shortness of breath or chest pain. Patient denies any alcohol use since his last hospital admission. His case was discussed with Dr. Kellogg during his previous admission who stated that an EGD would not be beneficial and the patient was to follow up with Dr. Kellogg in 2-3 weeks. The patient was prescribed Clonidine 0.1mg TID and ReVia at the time of discharge of his last admission. Apparently, the patient could not afford ReVia and he was switched to Antabuse. The patient states he took 1 dose of antabuse and became very nauseous and was vomiting. He denies alcohol use. The patient was recently admitted from 08/12/2017 until 08/14/2017 and also 2017 until 08/24/2017 for pancreatitis. The patient also presented to the ER on 08/24/2017 and 08/25/2017 but was not admitted. This is the patients 13th time to [facility] in 2018 (ER visits and inpatient admissions). The patient has a history of chronic pancreatitis, alcohol abuse, chronic back pain, urinary retention, anxiety, and depression. Chest x-ray: unremarkable Laboratory data: WBC 15.7. Hemoglobin 13.0. Platelet count 286. Sodium 140. Potassium 4.2. BUN 12. Creatinine 1.20. Glucose 127. AST 12. ALT 20. Amylase 245. Lipase 2979. Urinalysis reveals: Moderate leukocyte esterase, RBC 15, WBC 31, occasional bacteria The patient was admitted to the hospital under the care of Dr. Leo. 08/29/2017 Patient seen and examined at the bedside. Amylase today is 127, down from 245. Lipase is 708, down from 2979. Patient was lethargic upon examination and took provider multiple attempts to wake patient up. Patient states he is having a lot of pain and is having a hard time getting comfortable. Patient states he did not consume his clear liquid breakfast due to nausea. Denies vomiting. 08/30/2017 Patient seen and examined at the bedside. Patient states he continues to have generalized abdominal pain. Amylase 49. Lipase 206. IV fluids are infusing at 125cc/hr. Patient states he ate a popsicle and some chicken broth this morning. Patient states he is having intermittent nausea but it is improving. Denies vomiting. Vital signs remain stable. Patient is afebrile. Patient states he had a bowel movement today that was black in color. Hemoglobin is 11.1. Objective - Vital Signs Vital signs: Vital Signs Temp 98.5 F 08/30/17 06:22 Pulse 80 08/30/17 08:49 Resp 20 08/30/17 06:22 BP 124/78 08/30/17 06:22 Pulse Ox 95 08/30/17 06:22 Intake & Output 08/29/17 08/30/17 08/30/17 18:59 06:59 18:59 Intake Total 1064 300 Balance 1064 300 Weight 70 kg Intake: Oral 1064 300 Other: Voiding Method Toilet # Voids 1 1 - Exam GENERAL: This is a 47-year-old male in no apparent distress at the time of examination. Pleasant and cooperative. HEENT: Head is atraumatic, normocephalic. Pupils are equal, round, and reactive to light. Sclerae anicteric. Conjunctivae are clear. Mucus membranes of the mouth are moist. Neck is supple. RESPIRATORY: Clear to ausculation. No wheezes, rales, or rhonchi. No use of accessory muscles. Patient maintaining oxygen saturation greater than 92%. No chest wall tenderness is noted on palpation or with deep breathing. CARDIOVASCULAR: Regular rate and rhythm. S1 and S2 noted. No systolic or diastolic murmur auscultated. No JVD noted. No S3 or S4 noted. GASTROINTESTINAL: Abdomen soft and round. Bowel sounds auscultated x 4 quadrants. Mild pain and tenderness noted upon palpation of all 4 quadrants. INTEGUMENTARY: No cyanosis. No jaundice. No rashes noted. No cellulitis noted. EXTREMITIES: 2+ peripheral pulses. No evidence of peripheral edema. No calf tenderness noted. NEUROLOGIC: Cranial nerves II-XII intact. PSYCHIATRIC: Awake, alert, and oriented X 3. Appropriate affect. Intact judgement and insight. - Labs CBC & Chem 7: 08/30/17 07:28 08/30/17 07:28 Labs: Abnormal Lab Results - Last 24 Hours (Table) 08/30/17 08/30/17 Range/Units 07:28 07:28 RBC 3.59 L (4.30-5.90) m/uL Hgb 11.1 L (13.0-17.5) gm/dL Hct 34.6 L (39.0-53.0) % Lymphocytes # 0.8 L (1.0-4.8) k/uL Chloride 110 H (98-107) mmol/L Carbon Dioxide 20 L (22-30) mmol/L BUN 5 L (9-20) mg/dL Creatinine 0.51 L (0.66-1.25) mg/dL Calcium 7.7 L (8.4-10.2) mg/dL AST 13 L (17-59) U/L ALT 17 L (21-72) U/L Total Protein 4.5 L (6.3-8.2) g/dL Albumin 2.1 L (3.5-5.0) g/dL Microbiology - Last 24 Hours (Table) 08/27/17 23:57 Blood Culture - Preliminary Blood No Growth after 48 hours Assessment and Plan Plan: ASSESSMENT: Acute on chronic pancreatitis, secondary to ETOH abuse, patient denies current alcohol use History of alcohol abuse Recent hospitalization for pancreatitis, August 2017 Recent hospitalization for pancreatitis and hematemesis, July 2017 Bacteriuria, likely colonization secondary to chronic urinary retention, patient asymptomatic Chronic urinary retention requiring self cath Chronic low back back Anxiety, unspecified Depression, unspecified Nicotine dependence, patient is a current cigarette smoker PLAN: Continue IV fluids. Decrease to 75cc/hr Advance diet to full liquid for lunch Continue Tylenol #3 and Toradol Continue Zofran Obtain stool for occult blood Home meds as appropriate GI prophylaxis: Protonix 40 mg IV Daily DVT prophylaxis: MARGA hose to bilateral lower extremities Monitor vital signs and address as appropriate Further recommendations pending patient's course Nurse practitioner note has been reviewed by physician. Signing provider agrees with the documented findings, assessment, and plan of care.
[2017-08-30] MEDS: ONDANSETRON ODT 8 MG TAB.RAPDIS PO PRN (11:10)
[2017-08-30] MEDS: traZODone HCL 50 MG TAB PO SCH (20:57)
[2017-08-30] MEDS: ATORVASTATIN 10 MG TAB PO SCH (20:57)
[2017-08-31] MEDS: ONDANSETRON ODT 8 MG TAB.RAPDIS PO PRN ×2 (00:53→07:44)
[2017-08-31] MEDS: Acetaminophen-Codeine 300-30mg TAB PO PRN ×3 (02:36→14:41)
[2017-08-31] MEDS: KETOROLAC 30 MG/ML 1 ML VIAL IVP PRN ×2 (06:09→11:53)
[2017-08-31] MEDS: DIAZEPAM 5 MG TAB PO SCH ×2 (07:44→15:02)
[2017-08-31] MEDS: PANTOPRAZOLE 40 MG/10 ML VIAL IVP SCH (07:46)
[2017-08-31] MEDS: FOLIC ACID 1 MG TAB PO SCH (07:46)
[2017-08-31] MEDS: cloNIDine HCL 0.1 MG TAB PO SCH (07:46)
[2017-08-31] MEDS: MAGNESIUM OXIDE 400 MG TAB PO SCH (07:46)
[2017-08-31] MEDS: NICOTINE 14MG/24HR PATCH TRANSDERM SCH (07:46)
[2017-08-31] MEDS: GABAPENTIN 400 MG CAP PO SCH (07:46)
[2017-08-31] MEDS: DULoxetine HCL 60 MG CAPSULE.DR PO SCH (07:47)
[2017-08-31] MEDS: SODIUM CHLORIDE 0.9% 1,000 ML IV SCH (07:55)
[2017-08-31] MEDS: SYMBICORT 80-4.5 MCG INHALER INHALATION SCH (08:06)
[2017-08-31] MEDS: ALBUTEROL NEBULIZED 2.5 MG/3 ML INHALATION PRN ×2 (08:06→11:33)
[2017-08-31 08:38] LABS: Basophils % (A) 0 %; Eosinophils # (A) 0.1 k/uL (0-0.7); Eosinophils % (A) 1 %; HCT 34.6 % (39.0-53.0); HGB 11.2 gm/dL (13.0-17.5); Lymphocytes # (A) 0.9 k/uL (1.0-4.8); Lymphocytes % (A) 11 %; MCH 30.8 pg (25.0-35.0); MCHC 32.3 g/dL (31.0-37.0); MCV 95.4 fL (80.0-100.0); Mean Platelet Volume 7.6; Monocytes # (A) 0.3 k/uL (0-1.0); Monocytes % (A) 4 %; Neutrophils # (A) 6.5 k/uL (1.3-7.7); Neutrophils % (A) 83 %; Platelet Count 292 k/uL (150-450); RBC 3.63 m/uL (4.30-5.90); RDW 13.2 % (11.5-15.5); WBC 7.8 k/uL (3.8-10.6)
[2017-08-31 10:24] LABS: ALT 16 U/L (21-72); AST 11 U/L (17-59); Albumin 2.2 g/dL (3.5-5.0); Alkaline Phosphatase 90 U/L (38-126); Amylase 34 U/L (30-110); Anion Gap 10 mmol/L; Blood Urea Nitrogen 3 mg/dL (9-20); Calcium 8.2 mg/dL (8.4-10.2); Carbon Dioxide 20 mmol/L (22-30); Chloride 108 mmol/L (98-107); Glucose 111 mg/dL (74-99); Lipase 152 U/L (23-300); Sodium 138 mmol/L (137-145); Total Bilirubin 0.3 mg/dL (0.2-1.3); Total Protein 4.8 g/dL (6.3-8.2)
--- NOTE | 2017-08-31 11:15 | P.PN ---
Subjective Progress Note Date: 08/31/17 47-year-old male who presented to the emergency room with a chief complaint of abdominal pain. The patient states he was having severe abdominal pain and epigastic pain. He states the pain goes through his whole abdomen into his back. Reports nausea and vomiting. Denies shortness of breath or chest pain. Patient denies any alcohol use since his last hospital admission. His case was discussed with Dr. Kellogg during his previous admission who stated that an EGD would not be beneficial and the patient was to follow up with Dr. Kellogg in 2-3 weeks. The patient was prescribed Clonidine 0.1mg TID and ReVia at the time of discharge of his last admission. Apparently, the patient could not afford ReVia and he was switched to Antabuse. The patient states he took 1 dose of antabuse and became very nauseous and was vomiting. He denies alcohol use. The patient was recently admitted from 08/12/2017 until 08/14/2017 and also 2017 until 08/24/2017 for pancreatitis. The patient also presented to the ER on 08/24/2017 and 08/25/2017 but was not admitted. This is the patients 13th time to [facility] in 2018 (ER visits and inpatient admissions). The patient has a history of chronic pancreatitis, alcohol abuse, chronic back pain, urinary retention, anxiety, and depression. Chest x-ray: unremarkable Laboratory data: WBC 15.7. Hemoglobin 13.0. Platelet count 286. Sodium 140. Potassium 4.2. BUN 12. Creatinine 1.20. Glucose 127. AST 12. ALT 20. Amylase 245. Lipase 2979. Urinalysis reveals: Moderate leukocyte esterase, RBC 15, WBC 31, occasional bacteria The patient was admitted to the hospital under the care of Dr. Leo. 08/29/2017 Patient seen and examined at the bedside. Amylase today is 127, down from 245. Lipase is 708, down from 2979. Patient was lethargic upon examination and took provider multiple attempts to wake patient up. Patient states he is having a lot of pain and is having a hard time getting comfortable. Patient states he did not consume his clear liquid breakfast due to nausea. Denies vomiting. 08/30/2017 Patient seen and examined at the bedside. Patient states he continues to have generalized abdominal pain. Amylase 49. Lipase 206. IV fluids are infusing at 125cc/hr. Patient states he ate a popsicle and some chicken broth this morning. Patient states he is having intermittent nausea but it is improving. Denies vomiting. Vital signs remain stable. Patient is afebrile. Patient states he had a bowel movement today that was black in color. Hemoglobin is 11.1. 08/31/2017 Patient seen and examined at the bedside. Patient continues to complain of abdominal pain but states the pain is severe in the bilateral flank region. Patient states he had two episodes of urinary incontinence this morning. He states he has never experienced urinary incontinence before. He states his urine is malodorous. Patient does have a history of urinary retention and occasionally requires straight cath. Patient states he has not had to perform straight cath yet while in the hospital. Spoke with nursing who states she was told patient had incontinence of stool, not urine. Interviewed the patient again , who states he did have incontinence of stool x 2 that was very watery, but he states he also had to change his underwent twice due to urinary incontinence. Urinalysis on admission did show positive leukocyte esterase, however patient was asymptomatic and thought to be secondary to colonization from chronic urinary retention. Patient states he had a full liquid breakfast and tolerated it well. No nausea or vomiting. Objective - Vital Signs Vital signs: Vital Signs Temp 97.9 F 08/31/17 06:05 Pulse 88 08/31/17 08:18 Resp 20 08/31/17 08:41 BP 150/93 08/31/17 06:05 Pulse Ox 98 08/31/17 06:05 Intake & Output 08/30/17 08/31/17 08/31/17 18:59 06:59 18:59 Intake Total 890 300 Balance 890 300 Weight 70 kg Intake: Intake, IV Titration 600 Amount Sodium Chloride 0.9% 1, 600 000 ml @ 75 mls/hr IV . [id number] [facility] Rx#:[id number] Oral 290 300 Other: Voiding Method Toilet # Voids 2 3 # Bowel Movements 0 0 - Exam GENERAL: This is a 47-year-old male in no apparent distress at the time of examination. Pleasant and cooperative. HEENT: Head is atraumatic, normocephalic. Pupils are equal, round, and reactive to light. Sclerae anicteric. Conjunctivae are clear. Mucus membranes of the mouth are moist. Neck is supple. RESPIRATORY: Clear to ausculation. No wheezes, rales, or rhonchi. No use of accessory muscles. Patient maintaining oxygen saturation greater than 92%. No chest wall tenderness is noted on palpation or with deep breathing. CARDIOVASCULAR: Regular rate and rhythm. S1 and S2 noted. No systolic or diastolic murmur auscultated. No JVD noted. No S3 or S4 noted. GASTROINTESTINAL: Abdomen soft and round. Bowel sounds auscultated x 4 quadrants. Mild pain and tenderness noted upon palpation of all 4 quadrants. Positive CVA tenderness bilaterally. INTEGUMENTARY: No cyanosis. No jaundice. No rashes noted. No cellulitis noted. EXTREMITIES: 2+ peripheral pulses. No evidence of peripheral edema. No calf tenderness noted. NEUROLOGIC: Cranial nerves II-XII intact. PSYCHIATRIC: Awake, alert, and oriented X 3. Appropriate affect. Intact judgement and insight. - Labs CBC & Chem 7: 08/31/17 08:18 08/31/17 08:18 Labs: Abnormal Lab Results - Last 24 Hours (Table) 08/31/17 08/31/17 Range/Units 08:18 08:18 RBC 3.63 L (4.30-5.90) m/uL Hgb 11.2 L (13.0-17.5) gm/dL Hct 34.6 L (39.0-53.0) % Lymphocytes # 0.9 L (1.0-4.8) k/uL Chloride 108 H (98-107) mmol/L Carbon Dioxide 20 L (22-30) mmol/L BUN 3 L (9-20) mg/dL Creatinine 0.50 L (0.66-1.25) mg/dL Glucose 111 H (74-99) mg/dL Calcium 8.2 L (8.4-10.2) mg/dL AST 11 L (17-59) U/L ALT 16 L (21-72) U/L Total Protein 4.8 L (6.3-8.2) g/dL Albumin 2.2 L (3.5-5.0) g/dL Microbiology - Last 24 Hours (Table) 08/27/17 23:57 Blood Culture - Preliminary Blood No Growth after 72 hours Assessment and Plan Plan: ASSESSMENT: Acute on chronic pancreatitis, secondary to ETOH abuse, patient denies current alcohol use History of alcohol abuse Recent hospitalization for pancreatitis, August 2017 Recent hospitalization for pancreatitis and hematemesis, July 2017 Bacteriuria, likely colonization secondary to chronic urinary retention, patient asymptomatic upon admission, patient now complains of urinary incontinence, frequency, and malodorous urine Chronic urinary retention requiring occasional self cath, patient has not had to self cath thus far Complaints of black stool, stool for occult blood ordered and currently pending Chronic low back back Anxiety, unspecified Depression, unspecified Nicotine dependence, patient is a current cigarette smoker PLAN: Advance diet Continue Tylenol #3 and Toradol Continue Zofran Obtain stool for occult blood UA and culture US of kidneys and bladder Home meds as appropriate GI prophylaxis: Protonix 40 mg IV Daily DVT prophylaxis: MARGA hose to bilateral lower extremities Monitor vital signs and address as appropriate Further recommendations pending patient's course Nurse practitioner note has been reviewed by physician. Signing provider agrees with the documented findings, assessment, and plan of care.
--- NOTE | 2017-08-31 13:30 | US ---
EXAMINATION TYPE: US kidneys/renal and bladder DATE OF EXAM: 08/31/2017 COMPARISON: CT 08/19/2017, 04/24/2017 CLINICAL HISTORY: flank pain, CVA tenderness, urinary incontinence. EXAM MEASUREMENTS: Right Kidney: 12.0 x 5.3 x 5.6 cm Left Kidney: 10.5 x 4.5 x 4.9 cm Spleen: 13.4cm Small amount of ff noted on right in Morrisons pouch, small amount of ff adjacent to spleen. Right Kidney: No hydronephrosis or masses seen Left Kidney: Moderate left-sided hydronephrosis Spleen: Splenomegaly Bladder: wnl, prominent vein inferior There is no evidence for hydronephrosis on the right. No nephrolithiasis is seen. No masses are papo ntified. Cortical medullary differentiation maintained bilaterally. The urinary bladder is anechoic. Bilateral ureteral jets are seen. Minimal ascites present adjacent to the liver IMPRESSION: Moderate left-sided hydronephrosis is chronic. Mild splenomegaly. Minimal ascites
[2017-08-31 14:28] LABS: Appearance,Urine Clear (Clear); Bacteria,Urine Occasional /hpf; Bilirubin,Urine Negative (Negative); Blood,Urine Negative (Negative); Budding Yeast,Urine Many /hpf; Color,Urine Light Yellow; Glucose,Urine (UA) Negative (Negative); Ketones,Urine Negative (Negative); Leukocyte Esterase,Urine Large (Negative); Mucus,Urine Rare /hpf; Nitrite,Urine Negative (Negative); PH, Urine 6.5 (5.0-8.0); Protein,Urine Negative (Negative); RBC,Urine 4 /hpf (0-5); Specific Gravity,Urine 1.006 (1.001-1.035); Urobilinogen,Urine <2.0 mg/dL (<2.0); WBC,Urine 7 /hpf (0-5)
--- NOTE | 2017-08-31 14:48 | P.DS ---
Providers Date of admission: 08/28/17 01:16 Expected date of discharge: 08/31/17 Attending physician: Carrillo Leo Primary care physician: [facility] Course: 47-year-old male who presented to the emergency room with a chief complaint of abdominal pain. The patient states he was having severe abdominal pain and epigastic pain. He states the pain goes through his whole abdomen into his back. Reports nausea and vomiting. Denies shortness of breath or chest pain. Patient denies any alcohol use since his last hospital admission. His case was discussed with Dr. Kellogg during his previous admission who stated that an EGD would not be beneficial and the patient was to follow up with Dr. Kellogg in 2-3 weeks. The patient was prescribed Clonidine 0.1mg TID and ReVia at the time of discharge of his last admission. Apparently, the patient could not afford ReVia and he was switched to Antabuse. The patient states he took 1 dose of antabuse and became very nauseous and was vomiting. He denies alcohol use. The patient was recently admitted from 08/12/2017 until 08/14/2017 and also 2017 until 08/24/2017 for pancreatitis. The patient also presented to the ER on 08/24/2017 and 08/25/2017 but was not admitted. This is the patients 13th time to [facility] in 2018 (ER visits and inpatient admissions). The patient has a history of chronic pancreatitis, alcohol abuse, chronic back pain, urinary retention, anxiety, and depression. Chest x-ray: unremarkable Laboratory data: WBC 15.7. Hemoglobin 13.0. Platelet count 286. Sodium 140. Potassium 4.2. BUN 12. Creatinine 1.20. Glucose 127. AST 12. ALT 20. Amylase 245. Lipase 2979. Urinalysis reveals: Moderate leukocyte esterase, RBC 15, WBC 31, occasional bacteria. Negative for alcohol. The patient was initially placed on dilaudid, norco, and toradol. The patient was extremely drowsy and his pain was under control. His dilaudid and norco were discontinued. He was placed on Tylenol #3 which the patient was taking at home for chronic back pain. He was also given Toradol PRN. The patient was placed on IV fluids during hospitalization. He was started on a clear liquid diet, then advanced to full liquid, and then advanced to regular as the patient tolerated. His amylase and lipase normalized after a few days. The patient complained of a dark stool during hospitalization but flushed it before provider could see it. Stool for occult blood was obtained and was negative. His hemoglobin remained stable during hospitalization. No obvious signs of bleeding were noted. Patient also complained of bilateral flank pain. Patient states he had two episodes of urinary incontinence. He states he has never experienced urinary incontinence before. He states his urine is malodorous. Patient does have a history of urinary retention and occasionally requires straight cath. Patient states he has not had to perform straight cath yet while in the hospital. Spoke with nursing who states she was told patient had incontinence of stool, not urine. Interviewed the patient again, who states he did have incontinence of stool x 2 that was very watery. Explained to the patient that if he had diarrhea , that is not urinary incontinence. Patient then stated he was non incontinent of urine. The patient was asked again to clarify the events, "So you only had an accident of stool, not urine". Initially the patient answered that it was just stool. Then he changed his answer and said it was urine too and he had to change his underwear this morning. Urinalysis on admission did show positive leukocyte esterase, however patient was asymptomatic and thought to be secondary to colonization from chronic urinary retention. He has no white count and has been afebrile. US of the kidneys and bladder was completed that revealed chronic left sided hydronephrosis, mild splenomegaly, and minimal ascites. Repeat urinalysis is positive for large leukocyte esterase. Patient states he has not had any further episodes of urinary incontinence. He does continue to report frequency and malodorous urine. He denies dysuria or painful urination. He was deemed stable for discharge per Dr. Leo. He is to follow up on an outpatient basis with Dr. Leo. Prescriptions were sent to the patients preferred pharmacy for Levaquin 500mg PO daily x 7 days. His Ativan, Revia, and Librium were discontinued. The patient can resume his Tylenol #3 at home. No prescription was given to the patient for this medication as he was previously prescribed it by his PCP. Additionally, no prescription for valium was given at the time of discharge as the patient was given a presciption for Valium at his last appointment with Dr. Leo DISCHARGE DIAGNOSIS: Acute on chronic pancreatitis, secondary to ETOH abuse, patient denies current alcohol use History of alcohol abuse Recent hospitalization for pancreatitis, August 2017 Recent hospitalization for pancreatitis and hematemesis, July 2017 Bacteriuria, likely colonization secondary to chronic urinary retention, patient asymptomatic upon admission, patient now complains of urinary incontinence, frequency, and malodorous urine, repeat urine positive for large leukocyte esterase, urine culture pending, possible urinary tract infection Chronic urinary retention requiring occasional self cath, patient has not had to self cath thus far Complaints of black stool per patient, hemoglobin remained stable, stool for occult blood negative Chronic low back back Anxiety, unspecified Depression, unspecified Nicotine dependence, patient is a current cigarette smoker Nurse practitioner note has been reviewed by physician. Signing provider agrees with the documented findings, assessment, and plan of care. Patient Condition at Discharge: Stable Plan - Discharge Summary New Discharge Prescriptions: New Acetaminophen-Codeine 300-30mg [Tylenol w/codeine #3] 1 each PO Q6HR PRN tab PRN Reason: Pain Diazepam [Valium] 10 mg PO TID tab Nicotine 14Mg/24Hr Patch [Habitrol] 1 patch TRANSDERM DAILY #7 patch Levofloxacin [Levaquin] 500 mg PO DAILY #7 tab Discontinued LORazepam [Ativan] 0.5 mg PO TID PRN #30 tab PRN Reason: Anxiety Naltrexone HCl [Revia] 50 mg PO DAILY #30 tablet Ibuprofen 800 mg PO Q6HR PRN #20 tablet PRN Reason: Pain chlordiazePOXIDE HCl [Librium] 25 mg PO TID #12 capsule Hydrocodone/Acetaminophen [[place] 5-325] 1 tab PO Q6HR PRN PRN Reason: Pain No Action Folic Acid 1 mg PO DAILY #30 tablet Atorvastatin [Lipitor] 10 mg PO HS Albuterol Inhaler [Ventolin Hfa Inhaler] 2 puff INHALATION RT-Q4H PRN PRN Reason: Shortness Of Breath traZODone HCL 50 mg PO HS Budesonide/Formoterol Fumarate [Symbicort 80-4.5 Mcg Inhaler] 1 puff INHALATION RT-BID Omeprazole [PriLOSEC] 40 mg PO BID #60 capsule. Gabapentin [Neurontin] 400 mg PO TID DULoxetine HCL [Cymbalta] 60 mg PO DAILY Ondansetron Odt [Zofran ODT] 4 mg PO Q8HR PRN #20 tab PRN Reason: Nausea Acetaminophen Tab [Tylenol] 650 mg PO Q4HR PRN tab PRN Reason: Fever And/ Or Pain cloNIDine HCL [Catapres] 0.1 mg PO TID #30 tab Magnesium 200 mg PO DAILY #14 tablet Discharge Medication List Folic Acid 1 mg PO DAILY #30 tablet 07/15/15 [Rx] Atorvastatin [Lipitor] 10 mg PO HS 09/27/15 [History] Albuterol Inhaler [Ventolin Hfa Inhaler] 2 puff INHALATION RT-Q4H PRN 03/01/17 [ History] Budesonide/Formoterol Fumarate [Symbicort 80-4.5 Mcg Inhaler] 1 puff INHALATION RT-BID 04/04/17 [History] traZODone HCL 50 mg PO HS 04/04/17 [History] Omeprazole [PriLOSEC] 40 mg PO BID #60 capsule. 05/16/17 [Rx] DULoxetine HCL [Cymbalta] 60 mg PO DAILY 07/18/17 [History] Gabapentin [Neurontin] 400 mg PO TID 07/18/17 [History] Ondansetron Odt [Zofran ODT] 4 mg PO Q8HR PRN #20 tab 07/20/17 [Rx] Acetaminophen Tab [Tylenol] 650 mg PO Q4HR PRN tab 08/23/17 [Rx] cloNIDine HCL [Catapres] 0.1 mg PO TID #30 tab 08/23/17 [Rx] Magnesium 200 mg PO DAILY #14 tablet 08/24/17 [Rx] Acetaminophen-Codeine 300-30mg [Tylenol w/codeine #3] 1 each PO Q6HR PRN tab [Rx] Diazepam [Valium] 10 mg PO TID tab 08/31/17 [Rx] Levofloxacin [Levaquin] 500 mg PO DAILY #7 tab 08/31/17 [Rx] Nicotine 14Mg/24Hr Patch [Habitrol] 1 patch TRANSDERM DAILY #7 patch 08/31/17 [ Rx] Follow up Appointment(s)/Referral(s): Carrillo Leo Jr, [Primary Care Provider] - 1 Week Patient Instructions/Handouts: Pancreatitis (DC)
[2017-08-31 15:17] VITALS: BP 121/74; PULSE 94; RESP 16; TEMP 98.9
[2017-09-01] MEDS ORDERED: PANTOPRAZOLE 40 MG TABLET PO SCH (07:30)
== END 2017-08-31 15:28 | disposition home or self-care (01) | DRG 440 ==
LOC: EC 23:26 → 4MS4W 08-28 01:16
PROVIDERS: ADMIT Family Medicine; ATTEND Family Medicine
DX: K85.20 Alcohol induced acute pancreatitis without necrosis or infection (principal); R15.9 Full incontinence of feces; E78.5 Hyperlipidemia, unspecified; K86.0 Alcohol-induced chronic pancreatitis; F17.210 Nicotine dependence, cigarettes, uncomplicated; F32.9 Major depressive disorder, single episode, unspecified; F41.9 Anxiety disorder, unspecified; G89.29 Other chronic pain; K21.9 Gastro-esophageal reflux disease without esophagitis; R32 Unspecified urinary incontinence; N42.9 Disorder of prostate, unspecified; M54.5 Low back pain; R33.9 Retention of urine, unspecified; R82.99 Other abnormal findings in urine; Z79.899 Other long term (current) drug therapy; Z87.442 Personal history of urinary calculi; Z87.01 Personal history of pneumonia (recurrent); Z87.440 Personal history of urinary (tract) infections; Z90.49 Acquired absence of other specified parts of digestive tract; Z83.3 Family history of diabetes mellitus; Z82.49 Family history of ischemic heart disease and other diseases of the circulatory system; Z82.0 Family history of epilepsy and other diseases of the nervous system; Z84.89 Family history of other specified conditions
CPT/HCPCS: 36415; 71046; 76770; 80053; 80306; 81001; 82075; 82150; 82272; 82550; 82553; 83605; 83690; 83735; 84484; 85025; 85379; 85610; 85730; 87040; 87086; 93005; 94640; 96361; 96374; 96375; 99284; 99285

== ENCOUNTER 2017-09-01 13:11 | Emergency (ER) | payer MEDICARE, OTHER ==
[2017-09-01 13:27] VITALS: RESP 16
[2017-09-01] MEDS ORDERED: MORPHINE SULFATE 4MG/4ML SYRG IVP STA (13:43)
[2017-09-01] MEDS ORDERED: ONDANSETRON 4 MG/2 ML VIAL IVP STA (13:43)
[2017-09-01] MEDS ORDERED: SODIUM CHLORIDE 0.9% 1,000 ML IV STA ×2 (13:43)
[2017-09-01] MEDS ORDERED: PANTOPRAZOLE 40 MG/10 ML VIAL IVP STA (13:43)
[2017-09-01 14:49] LABS: Basophils % (A) 0 %; Eosinophils # (A) 0.1 k/uL (0-0.7); Eosinophils % (A) 1 %; HCT 38.7 % (39.0-53.0); HGB 13.1 gm/dL (13.0-17.5); Lymphocytes # (A) 0.9 k/uL (1.0-4.8); Lymphocytes % (A) 7 %; MCH 31.5 pg (25.0-35.0); MCHC 33.8 g/dL (31.0-37.0); MCV 93.3 fL (80.0-100.0); Mean Platelet Volume 8.5; Monocytes # (A) 0.6 k/uL (0-1.0); Monocytes % (A) 4 %; Neutrophils # (A) 11.1 k/uL (1.3-7.7); Neutrophils % (A) 87 %; Platelet Count 443 k/uL (150-450); RBC 4.15 m/uL (4.30-5.90); WBC 12.7 k/uL (3.8-10.6)
[2017-09-01 14:55] LABS: ALT 18 U/L (21-72); AST 14 U/L (17-59); Alkaline Phosphatase 136 U/L (38-126); Anion Gap 10 mmol/L; Blood Urea Nitrogen 4 mg/dL (9-20); Calcium 9.2 mg/dL (8.4-10.2); Carbon Dioxide 26 mmol/L (22-30); Chloride 102 mmol/L (98-107); Glucose 86 mg/dL (74-99); Lipase 355 U/L (23-300); Magnesium 1.6 mg/dL (1.6-2.3); Potassium 4.1 mmol/L (3.5-5.1); Sodium 138 mmol/L (137-145); Total Bilirubin 0.4 mg/dL (0.2-1.3)
[2017-09-01 15:03] LABS: Creatine Kinase 34 U/L (55-170)
[2017-09-01 15:16] LABS: Creatine Kinase MB 0.4 ng/mL (0.0-2.4); Troponin I <0.012 ng/mL (0.000-0.034)
--- NOTE | 2017-09-01 15:16 | XR ---
EXAMINATION TYPE: XR chest 2V DATE OF EXAM: 09/01/2017 COMPARISON: Prior chest x-ray 08/28/2017 HISTORY: Chest pain, abdominal pain and dizziness TECHNIQUE: Frontal and lateral views of the chest are obtained. FINDINGS: There is some blunting of the posterior costophrenic angle not seen on previous exam. Ther e are overlying cardiac leads. Thoracic cord stimulator is again seen. No evident pneumothorax. Cardi ac mediastinal silhouette, pulmonary vascularity and graham are stable. IMPRESSION: Interval small left pleural effusion and associated atelectasis, correlate to exclude pn eumonia, follow-up is recommended.
[2017-09-01 15:18] LABS: Partial Thromboplastin Time 26.1 sec (22.0-30.0)
--- NOTE | 2017-09-01 15:21 | ED ---
General Adult HPI - General Chief complaint: Chest Pain Stated complaint: Chest pain Time Seen by Provider: 09/01/17 13:43 Source: patient, RN notes reviewed, old records reviewed Mode of arrival: wheelchair Limitations: no limitations - History of Present Illness Initial comments: This is a 47-year-old male well-known to this facility for evaluation of bowel pain. History of pancreatitis. Patient states his pain feels similar, just discharged from hospital yesterday or this morning. Patient denies a significant current nausea vomiting. States he does not feel well prior to discharge. No fevers no shortness of breath no other complaints - Related Data Home Medications Medication Instructions Recorded Confirmed Atorvastatin [Lipitor] 10 mg PO HS 09/27/15 09/10/17 Albuterol Inhaler [Ventolin Hfa 2 puff INHALATION RT-Q4H PRN 03/01/17 09/10/17 Inhaler] Budesonide/Formoterol Fumarate 1 puff INHALATION RT-BID 04/04/17 09/10/17 [Symbicort 80-4.5 Mcg Inhaler] traZODone HCL 50 mg PO HS 04/04/17 09/10/17 DULoxetine HCL [Cymbalta] 60 mg PO DAILY 07/18/17 09/10/17 Gabapentin [Neurontin] 400 mg PO TID 07/18/17 09/10/17 Acetaminophen-Codeine 300-30mg 1 tab PO Q6HR PRN 09/10/17 09/10/17 [Tylenol w/codeine #3] Previous Rx's Medication Instructions Recorded Folic Acid 1 mg PO DAILY #30 tablet 07/15/15 Omeprazole [PriLOSEC] 40 mg PO BID #60 capsule. 05/16/17 Ondansetron Odt [Zofran ODT] 4 mg PO Q8HR PRN #20 tab 07/20/17 Acetaminophen Tab [Tylenol] 650 mg PO Q4HR PRN tab 08/23/17 cloNIDine HCL [Catapres] 0.1 mg PO TID #30 tab 08/23/17 Magnesium 200 mg PO DAILY #14 tablet 08/24/17 Diazepam [Valium] 10 mg PO TID tab 08/31/17 Nicotine 14Mg/24Hr Patch [Habitrol] 1 patch TRANSDERM DAILY #7 patch 08/31/17 Levofloxacin [Levaquin] 500 mg PO DAILY #7 tab 09/08/17 Allergies Allergy/AdvReac Type Severity Reaction Status Date / Time No Known Allergies Allergy Verified 09/10/17 17:56 Review of Systems ROS Statement: Those systems with pertinent positive or pertinent negative responses have been documented in the HPI. ROS Other: All systems not noted in ROS Statement are negative. Past Medical History Past Medical History: GERD/Reflux, Hyperlipidemia, Pneumonia, Prostate Disorder Additional Past Medical History / Comment(s): ETOH ABUSE, RECURRANT PANCREATITIS , ALCOHOLIC HEPATITIS, NEPHROLITHIASIS, hx of CHRONIC URINARY RETENTION DUE TO BACK PROBLEMS-SELF CATHS.UTI. CHRONIC LOW BACK PAIN. History of Any Multi-Drug Resistant Organisms: None Reported Past Surgical History: Back Surgery, Cholecystectomy, Orthopedic Surgery Additional Past Surgical History / Comment(s): Bronchoscopy, BACK surgeries with TITANIUM PLATES MILTON and CAGES, KIDNEY STONES removed per pt, SPINAL CORD STIMULATOR, ISMAEL KNEE ARTHROSCOPIES, PINKY FINGER RT HAND REATTATCHED Past Anesthesia/Blood Transfusion Reactions: No Reported Reaction Past Psychological History: Anxiety, Depression Smoking Status: Heavy tobacco smoker Past Alcohol Use History: Occasional Past Drug Use History: None Reported - Past Family History Father Family Medical History: Diabetes Mellitus Additional Family Medical History / Comment(s): Mother Family Medical History: Dementia, Hyperlipidemia, Hypertension Additional Family Medical History / Comment(s): Mother is living. General Exam Limitations: no limitations General appearance: alert, in no apparent distress, anxious Head exam: Present: atraumatic, normocephalic, normal inspection Eye exam: Present: normal appearance, PERRL, EOMI. Absent: scleral icterus, conjunctival injection, periorbital swelling ENT exam: Present: normal exam, mucous membranes moist Neck exam: Present: normal inspection. Absent: tenderness, meningismus, lymphadenopathy Respiratory exam: Present: normal lung sounds bilaterally. Absent: respiratory distress, wheezes, rales, rhonchi, stridor Cardiovascular Exam: Present: regular rate, normal rhythm, normal heart sounds. Absent: systolic murmur, diastolic murmur, rubs, gallop, clicks GI/Abdominal exam: Present: soft, normal bowel sounds. Absent: distended, tenderness, guarding, rebound, rigid Extremities exam: Present: normal inspection, full ROM, normal capillary refill. Absent: tenderness, pedal edema, joint swelling, calf tenderness Back exam: Present: normal inspection Neurological exam: Present: alert, oriented X3, CN II-XII intact Psychiatric exam: Present: normal affect, normal mood Skin exam: Present: warm, dry, intact, normal color. Absent: rash Course Vital Signs 09/01/17 09/01/17 09/01/17 13:23 15:06 16:45 Temperature 99.4 F 98 F Pulse Rate 96 83 86 Respiratory 16 16 16 Rate Blood Pressure 111/61 134/90 126/82 O2 Sat by Pulse 99 98 97 Oximetry EKG Findings - EKG Comments: EKG Findings:: EKG shows normal sinus rhythm rate of 88, ND 154, QRS 78, QTc 467 Medical Decision Making - Medical Decision Making 47 male the ER for evaluation of bowel pain, history of pancreatitis, acute on chronic pancreatitis. Patient is tolerating oral at this time. Patient will be discharged home - Lab Data Result diagrams: 09/01/17 13:50 09/01/17 13:50 Lab Results 09/01/17 09/01/17 09/01/17 Range/Units 13:50 13:50 13:50 WBC 12.7 H (3.8-10.6) k/uL RBC 4.15 L (4.30-5.90) m/uL Hgb 13.1 (13.0-17.5) gm/dL Hct 38.7 L (39.0-53.0) % MCV 93.3 (80.0-100.0) fL MCH 31.5 (25.0-35.0) pg MCHC 33.8 (31.0-37.0) g/dL RDW 13.0 (11.5-15.5) % Plt Count 443 (150-450) k/uL Neutrophils % 87 % Lymphocytes % 7 % Monocytes % 4 % Eosinophils % 1 % Basophils % 0 % Neutrophils # 11.1 H (1.3-7.7) k/uL Lymphocytes # 0.9 L (1.0-4.8) k/uL Monocytes # 0.6 (0-1.0) k/uL Eosinophils # 0.1 (0-0.7) k/uL Basophils # 0.0 (0-0.2) k/uL PT (9.0-12.0) sec INR (<1.2) APTT (22.0-30.0) sec Sodium 138 (137-145) mmol/L Potassium 4.1 (3.5-5.1) mmol/L Chloride 102 (98-107) mmol/L Carbon Dioxide 26 (22-30) mmol/L Anion Gap 10 mmol/L BUN 4 L (9-20) mg/dL Creatinine 0.55 L (0.66-1.25) mg/dL Est GFR (CKD-EPI)AfAm >90 (>60 ml/min/1.73 sqM) Est GFR (CKD-EPI)NonAf >90 (>60 ml/min/1.73 sqM) Glucose 86 (74-99) mg/dL Calcium 9.2 (8.4-10.2) mg/dL Magnesium 1.6 (1.6-2.3) mg/dL Total Bilirubin 0.4 (0.2-1.3) mg/dL AST 14 L (17-59) U/L ALT 18 L (21-72) U/L Alkaline Phosphatase 136 H (38-126) U/L Total Creatine Kinase 34 L (55-170) U/L CK-MB (CK-2) 0.4 (0.0-2.4) ng/mL CK-MB (CK-2) Rel Index 1.2 Troponin I <0.012 (0.000-0.034) ng/mL Total Protein 6.0 L (6.3-8.2) g/dL Albumin 3.0 L (3.5-5.0) g/dL Lipase 355 H (23-300) U/L 09/01/17 Range/Units 13:50 WBC (3.8-10.6) k/uL RBC (4.30-5.90) m/uL Hgb (13.0-17.5) gm/dL Hct (39.0-53.0) % MCV (80.0-100.0) fL MCH (25.0-35.0) pg MCHC (31.0-37.0) g/dL RDW (11.5-15.5) % Plt Count (150-450) k/uL Neutrophils % % Lymphocytes % % Monocytes % % Eosinophils % % Basophils % % Neutrophils # (1.3-7.7) k/uL Lymphocytes # (1.0-4.8) k/uL Monocytes # (0-1.0) k/uL Eosinophils # (0-0.7) k/uL Basophils # (0-0.2) k/uL PT 10.0 (9.0-12.0) sec INR 1.0 (<1.2) APTT 26.1 (22.0-30.0) sec Sodium (137-145) mmol/L Potassium (3.5-5.1) mmol/L Chloride (98-107) mmol/L Carbon Dioxide (22-30) mmol/L Anion Gap mmol/L BUN (9-20) mg/dL Creatinine (0.66-1.25) mg/dL Est GFR (CKD-EPI)AfAm (>60 ml/min/1.73 sqM) Est GFR (CKD-EPI)NonAf (>60 ml/min/1.73 sqM) Glucose (74-99) mg/dL Calcium (8.4-10.2) mg/dL Magnesium (1.6-2.3) mg/dL Total Bilirubin (0.2-1.3) mg/dL AST (17-59) U/L ALT (21-72) U/L Alkaline Phosphatase (38-126) U/L Total Creatine Kinase (55-170) U/L CK-MB (CK-2) (0.0-2.4) ng/mL CK-MB (CK-2) Rel Index Troponin I (0.000-0.034) ng/mL Total Protein (6.3-8.2) g/dL Albumin (3.5-5.0) g/dL Lipase (23-300) U/L - Radiology Data Radiology results: report reviewed (Chest x-rays negative for acute disease), image reviewed Disposition Clinical Impression: Acute on chronic pancreatitis Disposition: HOME SELF-CARE Condition: Good Instructions: Pancreatitis (ED) Is patient prescribed a controlled substance at d/c from ED?: No Referrals: Carrillo Leo Jr, DO [Primary Care Provider] - 1-2 days
[2017-09-01 16:46] VITALS: BP 126/82; PULSE 86; TEMP 98
--- NOTE | 2017-09-04 05:58 | CDI ---
Documentation Clarification OP Dear Grayson EASTON, DO Please do addendum to ED report for HPI , Physical exam and MDM. Thank you, Spring Prado [employer]il Repair Technician If you have any question, Please contact labor training manager at [phone] [facility]
== END 2017-09-01 16:45 | disposition home or self-care (01) ==
LOC: EC 13:11
DX: K85.90 Acute pancreatitis without necrosis or infection, unspecified (principal); K86.1 Other chronic pancreatitis; E78.5 Hyperlipidemia, unspecified; K21.9 Gastro-esophageal reflux disease without esophagitis; F32.9 Major depressive disorder, single episode, unspecified; F41.9 Anxiety disorder, unspecified; F17.200 Nicotine dependence, unspecified, uncomplicated; Z79.899 Other long term (current) drug therapy; Z79.51 Long term (current) use of inhaled steroids; Z90.49 Acquired absence of other specified parts of digestive tract
CPT/HCPCS: 99285; 96374; 96375 ×2; 96361; 36415; 93005; 80053; 82550; 82553; 83690; 83735; 84484; 85025; 85610; 85730; 71046; J2405; C9113; J2270

== ENCOUNTER 2017-09-10 16:57 | Emergency (ER) | payer MEDICARE, OTHER ==
[2017-09-10 17:04] VITALS: RESP 18
[2017-09-10] MEDS ORDERED: SODIUM CHLORIDE 0.9% 1,000 ML IV STA (17:16)
--- NOTE | 2017-09-10 17:21 | ED ---
General Adult HPI - General Chief complaint: Chest Pain Stated complaint: Chest Pains Time Seen by Provider: 09/10/17 17:09 Source: patient, RN notes reviewed Mode of arrival: ambulatory Limitations: no limitations - History of Present Illness Initial comments: Patient 47-year-old male significant past medical history for pancreatitis, presenting to the emergency room today with a chief complaint of upper abdominal pain that radiates up into the chest. States feels similar pancreatitis that is had in the past. He admits that this started 3 days ago has been seen here in the emergency room was discharged home. States he saw his family doctor today. States that he did not say much to him. Patient states he did have an episode of nausea vomiting prior to coming in the emergency room still experiencing pain in the upper abdomen. Patient denies any other complaints or associated symptoms. Patient denies any recent fever, chills, shortness of breath, chest pain, back pain, abdominal pain, nausea or vomiting, numbness or tingling, dysuria or hematuria, constipation or diarrhea, headaches or visual changes, or any other complaints. Patient denies any recent fever, chills, shortness of breath, numbness or tingling, dysuria or hematuria, constipation or diarrhea, headaches or visual changes, or any other complaints. - Related Data Home Medications Medication Instructions Recorded Confirmed Atorvastatin [Lipitor] 10 mg PO HS 09/27/15 09/10/17 Albuterol Inhaler [Ventolin Hfa 2 puff INHALATION RT-Q4H PRN 03/01/17 09/10/17 Inhaler] Budesonide/Formoterol Fumarate 1 puff INHALATION RT-BID 04/04/17 09/10/17 [Symbicort 80-4.5 Mcg Inhaler] traZODone HCL 50 mg PO HS 04/04/17 09/10/17 DULoxetine HCL [Cymbalta] 60 mg PO DAILY 07/18/17 09/10/17 Gabapentin [Neurontin] 400 mg PO TID 07/18/17 09/10/17 Acetaminophen-Codeine 300-30mg 1 tab PO Q6HR PRN 09/10/17 09/10/17 [Tylenol w/codeine #3] Previous Rx's Medication Instructions Recorded Folic Acid 1 mg PO DAILY #30 tablet 07/15/15 Omeprazole [PriLOSEC] 40 mg PO BID #60 capsule. 05/16/17 Ondansetron Odt [Zofran ODT] 4 mg PO Q8HR PRN #20 tab 07/20/17 Acetaminophen Tab [Tylenol] 650 mg PO Q4HR PRN tab 08/23/17 cloNIDine HCL [Catapres] 0.1 mg PO TID #30 tab 08/23/17 Magnesium 200 mg PO DAILY #14 tablet 08/24/17 Diazepam [Valium] 10 mg PO TID tab 08/31/17 Nicotine 14Mg/24Hr Patch [Habitrol] 1 patch TRANSDERM DAILY #7 patch 08/31/17 Levofloxacin [Levaquin] 500 mg PO DAILY #7 tab 09/08/17 Allergies Allergy/AdvReac Type Severity Reaction Status Date / Time No Known Allergies Allergy Verified 09/10/17 17:56 Review of Systems ROS Statement: Those systems with pertinent positive or pertinent negative responses have been documented in the HPI. ROS Other: All systems not noted in ROS Statement are negative. Past Medical History Past Medical History: GERD/Reflux, Hyperlipidemia, Pneumonia, Prostate Disorder Additional Past Medical History / Comment(s): ETOH ABUSE, RECURRANT PANCREATITIS , ALCOHOLIC HEPATITIS, NEPHROLITHIASIS, hx of CHRONIC URINARY RETENTION DUE TO BACK PROBLEMS-SELF CATHS.UTI. CHRONIC LOW BACK PAIN. History of Any Multi-Drug Resistant Organisms: None Reported Past Surgical History: Back Surgery, Cholecystectomy, Orthopedic Surgery Additional Past Surgical History / Comment(s): Bronchoscopy, BACK surgeries with TITANIUM PLATES MILTON and CAGES, KIDNEY STONES removed per pt, SPINAL CORD STIMULATOR, ISMAEL KNEE ARTHROSCOPIES, PINKY FINGER RT HAND REATTATCHED Past Anesthesia/Blood Transfusion Reactions: No Reported Reaction Past Psychological History: Anxiety, Depression Smoking Status: Heavy tobacco smoker Past Alcohol Use History: Occasional Past Drug Use History: None Reported - Past Family History Father Family Medical History: Diabetes Mellitus Additional Family Medical History / Comment(s): Mother Family Medical History: Dementia, Hyperlipidemia, Hypertension Additional Family Medical History / Comment(s): Mother is living. General Exam - General Exam Comments Initial Comments: General: The patient is awake and alert, in no distress, and does not appear acutely ill. Eye: Pupils are equal, round and reactive to light, extra-ocular movements are intact. No nystagmus. There is normal conjunctiva bilaterally. Ears, nose, mouth and throat: There are moist mucous membranes and no oral lesions. Neck: The neck is supple, there is no tenderness or JVD. Cardiovascular: There is a regular rate and rhythm. No murmur, rub or gallop is appreciated. Chest pain is reproducible on exam. Respiratory: Lungs are clear to auscultation, respirations are non-labored, breath sounds are equal. No wheezes, stridor, rales, or rhonchi. Gastrointestinal: Patient has diffuse tenderness throughout the abdomen greater than upper quadrants. Patient's has no rebound tenderness, guarding or CVA tenderness. Musculoskeletal: Normal ROM, no tenderness. Strength 5/5. Sensation intact. Pulses equal bilaterally 2+. Neurological: A&O x 3. CN II-XII intact, There are no obvious motor or sensory deficits. Coordination appears grossly intact. Speech is normal. Skin: Skin is warm and dry and no rashes or lesions are noted. Psychiatric: Cooperative, appropriate mood & affect, normal judgment. Limitations: no limitations Course Vital Signs 09/10/17 17:03 Temperature 99.0 F Pulse Rate 97 Respiratory 18 Rate Blood Pressure 95/54 O2 Sat by Pulse 99 Oximetry EKG Findings - EKG Comments: EKG Findings:: EKG performed at 1710: Shows normal sinus rhythm at 92 bpm NV interval 142. QRS 78. QT/QTC 376/464. No acute ST changes. Medical Decision Making - Medical Decision Making Patient reexamined at this time. Patient is resting: The stretcher. Patient's blood pressure and vitals are stable. Patient labs been reviewed to show an 18, 000 white count. He does have a urinary tract infection. Initial improvement from 2 days ago. Was given Rocephin here in the emergency room again today. Patient lipase mildly elevated at 500. Has a history of chronic pancreatitis. Patient denies any new symptoms today since is the same symptoms of expressive for the past 3 days. EKG showed no changes. Case was discussed with attending physician Dr. Cervantes who did discuss the case with Dr. Woodson who states that patient may be discharged to follow-up in the office tomorrow. Urine culture is pending. - Lab Data Result diagrams: 09/10/17 17:37 09/10/17 17:37 Lab Results 09/10/17 09/10/17 09/10/17 Range/Units 17:37 17:37 17:37 WBC 18.4 H (3.8-10.6) k/uL RBC 4.25 L (4.30-5.90) m/uL Hgb 12.9 L (13.0-17.5) gm/dL Hct 39.6 (39.0-53.0) % MCV 93.3 (80.0-100.0) fL MCH 30.4 (25.0-35.0) pg MCHC 32.6 (31.0-37.0) g/dL RDW 13.3 (11.5-15.5) % Plt Count 485 H (150-450) k/uL Neutrophils % 91 % Lymphocytes % 6 % Monocytes % 3 % Eosinophils % 1 % Basophils % 0 % Neutrophils # 16.7 H (1.3-7.7) k/uL Lymphocytes # 1.0 (1.0-4.8) k/uL Monocytes # 0.5 (0-1.0) k/uL Eosinophils # 0.1 (0-0.7) k/uL Basophils # 0.0 (0-0.2) k/uL PT (9.0-12.0) sec INR (<1.2) APTT (22.0-30.0) sec Sodium 139 (137-145) mmol/L Potassium 5.1 (3.5-5.1) mmol/L Chloride 101 (98-107) mmol/L Carbon Dioxide 27 (22-30) mmol/L Anion Gap 11 mmol/L BUN 16 (9-20) mg/dL Creatinine 0.77 (0.66-1.25) mg/dL Est GFR (CKD-EPI)AfAm >90 (>60 ml/min/1.73 sqM) Est GFR (CKD-EPI)NonAf >90 (>60 ml/min/1.73 sqM) Glucose 120 H (74-99) mg/dL Calcium 9.3 (8.4-10.2) mg/dL Magnesium 2.0 (1.6-2.3) mg/dL Total Bilirubin 0.2 (0.2-1.3) mg/dL AST 16 L (17-59) U/L ALT 28 (21-72) U/L Alkaline Phosphatase 196 H (38-126) U/L Total Creatine Kinase 30 L (55-170) U/L CK-MB (CK-2) 0.3 (0.0-2.4) ng/mL CK-MB (CK-2) Rel Index 1.0 Troponin I <0.012 (0.000-0.034) ng/mL Total Protein 6.3 (6.3-8.2) g/dL Albumin 3.3 L (3.5-5.0) g/dL Amylase 63 (30-110) U/L Lipase 584 H (23-300) U/L Urine Color Urine Appearance (Clear) Urine pH (5.0-8.0) Ur Specific [place] [address] (1.001-1.035) Urine Protein (Negative) Urine Glucose (UA) (Negative) Urine Ketones (Negative) Urine Blood (Negative) Urine Nitrite (Negative) Urine Bilirubin (Negative) Urine Urobilinogen (<2.0) mg/dL Ur Leukocyte Esterase (Negative) Urine RBC (0-5) /hpf Urine WBC (0-5) /hpf Hyaline Casts (0-2) /lpf 09/10/17 09/10/17 Range/Units 17:37 18:40 WBC (3.8-10.6) k/uL RBC (4.30-5.90) m/uL Hgb (13.0-17.5) gm/dL Hct (39.0-53.0) % MCV (80.0-100.0) fL MCH (25.0-35.0) pg MCHC (31.0-37.0) g/dL RDW (11.5-15.5) % Plt Count (150-450) k/uL Neutrophils % % Lymphocytes % % Monocytes % % Eosinophils % % Basophils % % Neutrophils # (1.3-7.7) k/uL Lymphocytes # (1.0-4.8) k/uL Monocytes # (0-1.0) k/uL Eosinophils # (0-0.7) k/uL Basophils # (0-0.2) k/uL PT 10.1 (9.0-12.0) sec INR 1.0 (<1.2) APTT 25.1 (22.0-30.0) sec Sodium (137-145) mmol/L Potassium (3.5-5.1) mmol/L Chloride (98-107) mmol/L Carbon Dioxide (22-30) mmol/L Anion Gap mmol/L BUN (9-20) mg/dL Creatinine (0.66-1.25) mg/dL Est GFR (CKD-EPI)AfAm (>60 ml/min/1.73 sqM) Est GFR (CKD-EPI)NonAf (>60 ml/min/1.73 sqM) Glucose (74-99) mg/dL Calcium (8.4-10.2) mg/dL Magnesium (1.6-2.3) mg/dL Total Bilirubin (0.2-1.3) mg/dL AST (17-59) U/L ALT (21-72) U/L Alkaline Phosphatase (38-126) U/L Total Creatine Kinase (55-170) U/L CK-MB (CK-2) (0.0-2.4) ng/mL CK-MB (CK-2) Rel Index Troponin I (0.000-0.034) ng/mL Total Protein (6.3-8.2) g/dL Albumin (3.5-5.0) g/dL Amylase (30-110) U/L Lipase (23-300) U/L Urine Color Yellow Urine Appearance Clear (Clear) Urine pH 8.0 (5.0-8.0) Ur Specific [address] 1.010 (1.001-1.035) Urine Protein Negative (Negative) Urine Glucose (UA) Negative (Negative) Urine Ketones Negative (Negative) Urine Blood Negative (Negative) Urine Nitrite Negative (Negative) Urine Bilirubin Negative (Negative) Urine Urobilinogen <2.0 (<2.0) mg/dL Ur Leukocyte Esterase Large H (Negative) Urine RBC 3 (0-5) /hpf Urine WBC 39 H (0-5) /hpf Hyaline Casts 1 (0-2) /lpf Disposition Clinical Impression: UTI (urinary tract infection), Chronic pancreatitis, Abdominal pain Disposition: HOME SELF-CARE Condition: Stable Instructions: Abdominal Pain (ED) Additional Instructions: Please follow-up the family doctor tomorrow as discussed. Please continue previous to prescribe antibiotics. Please return to emergency room for new concerns. Is patient prescribed a controlled substance at d/c from ED?: No Referrals: Carrillo Leo Jr, [Primary Care Provider] - 1-2 days Time of Disposition: 19:16
[2017-09-10 17:51] LABS: Basophils % (A) 0 %; Eosinophils # (A) 0.1 k/uL (0-0.7); Eosinophils % (A) 1 %; HCT 39.6 % (39.0-53.0); HGB 12.9 gm/dL (13.0-17.5); Lymphocytes % (A) 6 %; MCH 30.4 pg (25.0-35.0); MCHC 32.6 g/dL (31.0-37.0); MCV 93.3 fL (80.0-100.0); Mean Platelet Volume 7.5; Monocytes # (A) 0.5 k/uL (0-1.0); Monocytes % (A) 3 %; Neutrophils # (A) 16.7 k/uL (1.3-7.7); Neutrophils % (A) 91 %; Platelet Count 485 k/uL (150-450); RBC 4.25 m/uL (4.30-5.90); RDW 13.3 % (11.5-15.5); WBC 18.4 k/uL (3.8-10.6)
[2017-09-10 18:02] LABS: ALT 28 U/L (21-72); AST 16 U/L (17-59); Albumin 3.3 g/dL (3.5-5.0); Alkaline Phosphatase 196 U/L (38-126); Amylase 63 U/L (30-110); Anion Gap 11 mmol/L; Blood Urea Nitrogen 16 mg/dL (9-20); Calcium 9.3 mg/dL (8.4-10.2); Carbon Dioxide 27 mmol/L (22-30); Chloride 101 mmol/L (98-107); Glucose 120 mg/dL (74-99); Lipase 584 U/L (23-300); Partial Thromboplastin Time 25.1 sec (22.0-30.0); Potassium 5.1 mmol/L (3.5-5.1); Prothrombin Time 10.1 sec (9.0-12.0); Sodium 139 mmol/L (137-145); Total Bilirubin 0.2 mg/dL (0.2-1.3); Total Protein 6.3 g/dL (6.3-8.2)
[2017-09-10 18:13] LABS: Creatine Kinase 30 U/L (55-170)
[2017-09-10 18:26] LABS: Creatine Kinase MB 0.3 ng/mL (0.0-2.4); Troponin I <0.012 ng/mL (0.000-0.034)
--- NOTE | 2017-09-10 18:29 | XR ---
EXAMINATION TYPE: XR chest 2V DATE OF EXAM: 09/10/2017 COMPARISON: 09/08/2017 HISTORY: Chest pain TECHNIQUE: Frontal and lateral views of the chest are obtained. FINDINGS: Heart and mediastinum are normal. Lungs are clear. Diaphragm is normal. There is neurostim ulator in the lower thoracic spine. There are chest leads. IMPRESSION: No active cardiopulmonary disease. Normal heart. No change.
[2017-09-10 18:52] LABS: Appearance,Urine Clear (Clear); Bilirubin,Urine Negative (Negative); Blood,Urine Negative (Negative); Color,Urine Yellow; Glucose,Urine (UA) Negative (Negative); Hyaline Casts,Urine 1 /lpf (0-2); Ketones,Urine Negative (Negative); Leukocyte Esterase,Urine Large (Negative); Nitrite,Urine Negative (Negative); Protein,Urine Negative (Negative); RBC,Urine 3 /hpf (0-5); Urobilinogen,Urine <2.0 mg/dL (<2.0); WBC,Urine 39 /hpf (0-5)
[2017-09-10] MEDS ORDERED: cefTRIAXone 2,000 MG in SODIUM CHLORIDE 0.9% 100 ML IVPB STA (19:04)
[2017-09-10] MEDS ORDERED: cefTRIAXone IN SWFI 2,000 MG/20 ML SYRINGE IVP ONE (19:15)
[2017-09-10] MEDS ORDERED: MORPHINE SULFATE 4 MG/0.8 ML SYRINGE (INJ) IVP STA (19:16)
[2017-09-10] MEDS ORDERED: ONDANSETRON 4 MG/2 ML VIAL IVP STA (19:16)
[2017-09-10 19:54] VITALS: BP 135/81; PULSE 89; TEMP 98.1
== END 2017-09-10 20:18 | disposition home or self-care (01) ==
LOC: EC 16:57
DX: K86.1 Other chronic pancreatitis (principal); N39.0 Urinary tract infection, site not specified; R74.8 Abnormal levels of other serum enzymes; R07.9 Chest pain, unspecified; E78.5 Hyperlipidemia, unspecified; F32.9 Major depressive disorder, single episode, unspecified; F41.9 Anxiety disorder, unspecified; F17.200 Nicotine dependence, unspecified, uncomplicated; Z79.51 Long term (current) use of inhaled steroids; Z79.899 Other long term (current) drug therapy; Z90.49 Acquired absence of other specified parts of digestive tract; Z53.8 Procedure and treatment not carried out for other reasons
CPT/HCPCS: 36415; 93005; 80053; 82150; 82550; 82553; 83690; 83735; 84484; 85025; 85610; 85730; 81001; 87086; 71046; 99285; 96374; 96375 ×2; 96361; J2405; J0696; J2270

== ENCOUNTER 2017-09-13 14:40 | Emergency (ER) | payer MEDICARE, OTHER ==
[2017-09-13 14:44] VITALS: TEMP 98.1
[2017-09-13] MEDS ORDERED: ONDANSETRON 4 MG/2 ML VIAL IVP STA (15:11)
[2017-09-13] MEDS ORDERED: MORPHINE SULFATE 4 MG/0.8 ML SYRINGE (INJ) IVP STA ×2 (15:11→17:36)
[2017-09-13] MEDS ORDERED: SODIUM CHLORIDE 0.9% 500 ML IV STA (15:11)
[2017-09-13] MEDS ORDERED: PANTOPRAZOLE 40 MG/10 ML VIAL IVP STA (15:11)
[2017-09-13] MEDS ORDERED: SODIUM CHLORIDE 0.9% 1,000 ML IV STA ×2 (15:11)
[2017-09-13 15:54] LABS: Basophils % (A) 0 %; Eosinophils # (A) 0.2 k/uL (0-0.7); Eosinophils % (A) 2 %; HCT 36.9 % (39.0-53.0); Lymphocytes # (A) 1.2 k/uL (1.0-4.8); Lymphocytes % (A) 10 %; MCH 30.3 pg (25.0-35.0); MCHC 32.6 g/dL (31.0-37.0); MCV 92.9 fL (80.0-100.0); Monocytes # (A) 0.7 k/uL (0-1.0); Monocytes % (A) 6 %; Neutrophils % (A) 81 %; Platelet Count 382 k/uL (150-450); RBC 3.97 m/uL (4.30-5.90); RDW 13.1 % (11.5-15.5); WBC 11.2 k/uL (3.8-10.6)
[2017-09-13 16:07] LABS: ALT 22 U/L (21-72); AST 15 U/L (17-59); Alcohol <10 mg/dL; Alkaline Phosphatase 171 U/L (38-126); Amylase 53 U/L (30-110); Anion Gap 10 mmol/L; Blood Urea Nitrogen 11 mg/dL (9-20); Calcium 8.8 mg/dL (8.4-10.2); Carbon Dioxide 26 mmol/L (22-30); Chloride 101 mmol/L (98-107); Glucose 127 mg/dL (74-99); Lipase 850 U/L (23-300); Sodium 137 mmol/L (137-145); Total Bilirubin 0.2 mg/dL (0.2-1.3); Total Protein 5.9 g/dL (6.3-8.2)
[2017-09-13 16:15] LABS: Creatine Kinase 27 U/L (55-170)
[2017-09-13 16:28] VITALS: RESP 18
[2017-09-13 16:28] LABS: Creatine Kinase MB <0.2 ng/mL (0.0-2.4); Troponin I <0.012 ng/mL (0.000-0.034)
--- NOTE | 2017-09-13 17:36 | ED ---
General Adult HPI - General Chief complaint: Abdominal Pain Stated complaint: abd pain Time Seen by Provider: 09/13/17 14:45 Source: patient, RN notes reviewed, old records reviewed Mode of arrival: wheelchair Limitations: no limitations - History of Present Illness Initial comments: This is a 47-year-old male to the ER for evaluation. Patient resents reversible abdominal pain, severe epigastric abdominal pain radiating to his back with nausea vomiting. Patient has history of pancreatitis, multiple recent ER visits and hospitalizations. Patient states he has not eaten in the last 4 days. Patient is taking Tylenol threes at home states is not working for his pain. Has Zofran was also no help. No fevers no shortness of breath no chest pain. - Related Data Home Medications Medication Instructions Recorded Confirmed Atorvastatin [Lipitor] 10 mg PO HS 09/27/15 09/13/17 Albuterol Inhaler [Ventolin Hfa 2 puff INHALATION RT-Q4H PRN 03/01/17 09/13/17 Inhaler] Budesonide/Formoterol Fumarate 1 puff INHALATION RT-BID 04/04/17 09/13/17 [Symbicort 80-4.5 Mcg Inhaler] traZODone HCL 50 mg PO HS 04/04/17 09/13/17 DULoxetine HCL [Cymbalta] 60 mg PO DAILY 07/18/17 09/13/17 Gabapentin [Neurontin] 400 mg PO TID 07/18/17 09/13/17 Acetaminophen-Codeine 300-30mg 1 tab PO Q6HR PRN 09/10/17 09/13/17 [Tylenol w/codeine #3] Previous Rx's Medication Instructions Recorded Folic Acid 1 mg PO DAILY #30 tablet 07/15/15 Omeprazole [PriLOSEC] 40 mg PO BID #60 capsule. 05/16/17 Ondansetron Odt [Zofran ODT] 4 mg PO Q8HR PRN #20 tab 07/20/17 Acetaminophen Tab [Tylenol] 650 mg PO Q4HR PRN tab 08/23/17 cloNIDine HCL [Catapres] 0.1 mg PO TID #30 tab 08/23/17 Magnesium 200 mg PO DAILY #14 tablet 08/24/17 Diazepam [Valium] 10 mg PO TID tab 08/31/17 Nicotine 14Mg/24Hr Patch [Habitrol] 1 patch TRANSDERM DAILY #7 patch 08/31/17 Levofloxacin [Levaquin] 500 mg PO DAILY #7 tab 09/08/17 Allergies Allergy/AdvReac Type Severity Reaction Status Date / Time No Known Allergies Allergy Verified 09/13/17 15:10 Review of Systems ROS Statement: Those systems with pertinent positive or pertinent negative responses have been documented in the HPI. ROS Other: All systems not noted in ROS Statement are negative. Past Medical History Past Medical History: GERD/Reflux, Hyperlipidemia, Pneumonia, Prostate Disorder Additional Past Medical History / Comment(s): ETOH ABUSE, RECURRANT PANCREATITIS , ALCOHOLIC HEPATITIS, NEPHROLITHIASIS, hx of CHRONIC URINARY RETENTION DUE TO BACK PROBLEMS-SELF CATHS.UTI. CHRONIC LOW BACK PAIN. History of Any Multi-Drug Resistant Organisms: None Reported Past Surgical History: Back Surgery, Cholecystectomy, Orthopedic Surgery Additional Past Surgical History / Comment(s): Bronchoscopy, BACK surgeries with TITANIUM PLATES MILTON and CAGES, KIDNEY STONES removed per pt, SPINAL CORD STIMULATOR, ISMAEL KNEE ARTHROSCOPIES, PINKY FINGER RT HAND REATTATCHED Past Anesthesia/Blood Transfusion Reactions: No Reported Reaction Past Psychological History: Anxiety, Depression Smoking Status: Heavy tobacco smoker Past Alcohol Use History: Occasional Past Drug Use History: None Reported - Past Family History Father Family Medical History: Diabetes Mellitus Additional Family Medical History / Comment(s): Mother Family Medical History: Dementia, Hyperlipidemia, Hypertension Additional Family Medical History / Comment(s): Mother is living. General Exam Limitations: no limitations General appearance: alert, in no apparent distress Head exam: Present: atraumatic, normocephalic, normal inspection Eye exam: Present: normal appearance, PERRL, EOMI. Absent: scleral icterus, conjunctival injection, periorbital swelling ENT exam: Present: normal exam, mucous membranes moist Neck exam: Present: normal inspection. Absent: tenderness, meningismus, lymphadenopathy Respiratory exam: Present: normal lung sounds bilaterally. Absent: respiratory distress, wheezes, rales, rhonchi, stridor Cardiovascular Exam: Present: regular rate, normal rhythm, normal heart sounds. Absent: systolic murmur, diastolic murmur, rubs, gallop, clicks GI/Abdominal exam: Present: soft, tenderness (Epigastric), normal bowel sounds. Absent: distended, guarding, rebound, rigid Extremities exam: Present: normal inspection, full ROM, normal capillary refill. Absent: tenderness, pedal edema, joint swelling, calf tenderness Back exam: Present: normal inspection Neurological exam: Present: alert, oriented X3, CN II-XII intact Psychiatric exam: Present: normal affect, normal mood Skin exam: Present: warm, dry, intact, normal color. Absent: rash Course Vital Signs 09/13/17 09/13/17 09/13/17 14:43 16:27 17:56 Temperature 98.1 F Pulse Rate 98 91 89 Respiratory 20 18 18 Rate Blood Pressure 104/63 107/62 120/82 O2 Sat by Pulse 98 100 100 Oximetry - Reevaluation(s) Reevaluation #1: Pain is improved with pain control 2, patient informed me cannot prescribe him pain medication for home. Medical Decision Making - Medical Decision Making 47 male the ER for evaluation of bowel pain acute on chronic pancreatitis. Lipase 800, patient given successive fluid boluses here in the ER and he achieved adequate pain control at this time, encouraged follow-up with primary care - Lab Data Result diagrams: 09/13/17 15:40 09/13/17 15:40 Lab Results 09/13/17 09/13/17 09/13/17 Range/Units 15:40 15:40 15:40 WBC 11.2 H (3.8-10.6) k/uL RBC 3.97 L (4.30-5.90) m/uL Hgb 12.0 L (13.0-17.5) gm/dL Hct 36.9 L (39.0-53.0) % MCV 92.9 (80.0-100.0) fL MCH 30.3 (25.0-35.0) pg MCHC 32.6 (31.0-37.0) g/dL RDW 13.1 (11.5-15.5) % Plt Count 382 (150-450) k/uL Neutrophils % 81 % Lymphocytes % 10 % Monocytes % 6 % Eosinophils % 2 % Basophils % 0 % Neutrophils # 9.0 H (1.3-7.7) k/uL Lymphocytes # 1.2 (1.0-4.8) k/uL Monocytes # 0.7 (0-1.0) k/uL Eosinophils # 0.2 (0-0.7) k/uL Basophils # 0.0 (0-0.2) k/uL Sodium 137 (137-145) mmol/L Potassium 4.0 (3.5-5.1) mmol/L Chloride 101 (98-107) mmol/L Carbon Dioxide 26 (22-30) mmol/L Anion Gap 10 mmol/L BUN 11 (9-20) mg/dL Creatinine 0.62 L (0.66-1.25) mg/dL Est GFR (CKD-EPI)AfAm >90 (>60 ml/min/1.73 sqM) Est GFR (CKD-EPI)NonAf >90 (>60 ml/min/1.73 sqM) Glucose 127 H (74-99) mg/dL Calcium 8.8 (8.4-10.2) mg/dL Total Bilirubin 0.2 (0.2-1.3) mg/dL AST 15 L (17-59) U/L ALT 22 (21-72) U/L Alkaline Phosphatase 171 H (38-126) U/L Total Creatine Kinase 27 L (55-170) U/L CK-MB (CK-2) <0.2 (0.0-2.4) ng/mL CK-MB (CK-2) Rel Index Troponin I <0.012 (0.000-0.034) ng/mL Total Protein 5.9 L (6.3-8.2) g/dL Albumin 3.0 L (3.5-5.0) g/dL Amylase 53 (30-110) U/L Lipase 850 H (23-300) U/L Serum Alcohol <10 mg/dL Disposition Clinical Impression: Acute pancreatitis, Acute on chronic pancreatitis Disposition: HOME SELF-CARE Condition: Good Instructions: Abdominal Pain (ED) Is patient prescribed a controlled substance at d/c from ED?: No Referrals: Carrillo Leo Jr, DO [Primary Care Provider] - 1-2 days
[2017-09-13 17:56] VITALS: BP 120/82; PULSE 89
== END 2017-09-13 18:08 | disposition home or self-care (01) ==
LOC: EC 14:40
DX: K85.90 Acute pancreatitis without necrosis or infection, unspecified (principal); K86.1 Other chronic pancreatitis; F17.200 Nicotine dependence, unspecified, uncomplicated; Z90.49 Acquired absence of other specified parts of digestive tract; E78.5 Hyperlipidemia, unspecified; F32.9 Major depressive disorder, single episode, unspecified; F41.9 Anxiety disorder, unspecified; Z79.51 Long term (current) use of inhaled steroids; Z79.899 Other long term (current) drug therapy; Z98.890 Other specified postprocedural states
CPT/HCPCS: 99284; 96374; 96375 ×2; 96376; 96361 ×2; 36415; 80053; 82150; 82550; 82553; 83690; 84484; 85025; 80320; J2405; C9113; J2270

== ENCOUNTER 2017-09-16 10:39 | Emergency (ER) | payer MEDICARE, OTHER ==
[2017-09-16] MEDS ORDERED: SODIUM CHLORIDE 0.9% 500 ML IV STA (11:02)
[2017-09-16] MEDS ORDERED: SODIUM CHLORIDE 0.9% 1,000 ML IV STA (11:02)
[2017-09-16 11:31] LABS: Basophils % (A) 0 %; Eosinophils # (A) 0.1 k/uL (0-0.7); Eosinophils % (A) 1 %; HCT 40.8 % (39.0-53.0); HGB 13.3 gm/dL (13.0-17.5); Lymphocytes # (A) 1.2 k/uL (1.0-4.8); Lymphocytes % (A) 11 %; MCH 30.1 pg (25.0-35.0); MCHC 32.7 g/dL (31.0-37.0); MCV 92.1 fL (80.0-100.0); Mean Platelet Volume 7.7; Monocytes # (A) 0.5 k/uL (0-1.0); Monocytes % (A) 4 %; Neutrophils % (A) 83 %; Platelet Count 436 k/uL (150-450); RBC 4.43 m/uL (4.30-5.90); RDW 13.3 % (11.5-15.5); WBC 10.9 k/uL (3.8-10.6)
[2017-09-16 11:37] LABS: Albumin 3.2 g/dL (3.5-5.0); Amylase 48 U/L (30-110); Anion Gap 8 mmol/L; Carbon Dioxide 27 mmol/L (22-30); Chloride 104 mmol/L (98-107); Glucose 105 mg/dL (74-99); Lipase 229 U/L (23-300); Sodium 139 mmol/L (137-145); Total Bilirubin 0.5 mg/dL (0.2-1.3); Total Protein 6.3 g/dL (6.3-8.2)
[2017-09-16 11:41] LABS: ALT 27 U/L (21-72); AST 27 U/L (17-59); Alkaline Phosphatase 175 U/L (38-126); Blood Urea Nitrogen 9 mg/dL (9-20); Potassium 5.3 mmol/L (3.5-5.1)
--- NOTE | 2017-09-16 11:57 | XR ---
EXAMINATION TYPE: XR KUB , 2 VIEWS DATE OF EXAM ORDERED: 09/16/2017 HISTORY: abdominal pain. COMPARISON: Previous study dated 09/08/2017. FINDINGS: There is a pain stimulator projecting over the lower dorsal spine. There has been a previo us interpedicular fusion with spacing placement at L4, L5 and S1. The gallbladder is been removed. The lung bases are clear. Within the abdomen, the abdominal gas pattern is normal. There is no evidence of obstruction or free air. No unusual calcifications are seen. IMPRESSION: 1. NO ACUTE INTRA-ABDOMINAL ABNORMALITY. 2. POSTSURGICAL CHANGE.
[2017-09-16 11:58] VITALS: RESP 20
[2017-09-16 12:09] LABS: Appearance,Urine Clear (Clear); Bilirubin,Urine Negative (Negative); Blood,Urine Negative (Negative); Budding Yeast,Urine Many /hpf; Color,Urine Yellow; Glucose,Urine (UA) Negative (Negative); Ketones,Urine Negative (Negative); Leukocyte Esterase,Urine Moderate (Negative); Nitrite,Urine Negative (Negative); Protein,Urine Negative (Negative); RBC,Urine 3 /hpf (0-5); Specific Gravity,Urine 1.009 (1.001-1.035); Urobilinogen,Urine <2.0 mg/dL (<2.0); WBC,Urine 12 /hpf (0-5)
[2017-09-16] MEDS ORDERED: KETOROLAC 30 MG/ML 1 ML VIAL IVP STA (12:41)
[2017-09-16] MEDS ORDERED: ONDANSETRON 4 MG/2 ML VIAL IVP STA (12:42)
--- NOTE | 2017-09-16 12:43 | ED ---
Abdominal Pain HPI - General Chief Complaint: Abdominal Pain Stated Complaint: chest pain Time Seen by Provider: 09/16/17 10:49 Source: patient Mode of arrival: ambulatory Limitations: no limitations - History of Present Illness Initial Comments: 47-year-old male patient with a past medical history significant for chronic abdominal pain and pancreatitis presents to the emergency department today for evaluation of upper abdominal pain that radiates into his back. Patient states that he has been having issues with this all week however the pain worsens today. He states he has been very nauseated but has not vomited. States he has no appetite. He denies any fevers or chills with this. Denies any constipation or diarrhea. Patient states that his pain feels similar to his previous pancreatitis episodes. Patient states his last alcoholic beverage was one month ago. He denies any illicit drug use. Patient denies any recent rash, shortness breath, chest pain, numbness, tingling, dizziness, weakness, hematuria , dysuria, urinary urgency, urinary frequency, headache, visual changes, or any other complaints. - Related Data Home Medications Medication Instructions Recorded Confirmed Atorvastatin [Lipitor] 10 mg PO HS 09/27/15 09/16/17 Albuterol Inhaler [Ventolin Hfa 2 puff INHALATION RT-Q4H PRN 03/01/17 09/16/17 Inhaler] Budesonide/Formoterol Fumarate 1 puff INHALATION RT-BID 04/04/17 09/16/17 [Symbicort 80-4.5 Mcg Inhaler] traZODone HCL 50 mg PO HS 04/04/17 09/16/17 DULoxetine HCL [Cymbalta] 60 mg PO DAILY 07/18/17 09/16/17 Gabapentin [Neurontin] 400 mg PO TID 07/18/17 09/16/17 Acetaminophen-Codeine 300-30mg 1 tab PO Q6HR PRN 09/10/17 09/16/17 [Tylenol w/codeine #3] Previous Rx's Medication Instructions Recorded Folic Acid 1 mg PO DAILY #30 tablet 07/15/15 Omeprazole [PriLOSEC] 40 mg PO BID #60 capsule. 05/16/17 Ondansetron Odt [Zofran ODT] 4 mg PO Q8HR PRN #20 tab 07/20/17 Acetaminophen Tab [Tylenol] 650 mg PO Q4HR PRN tab 08/23/17 cloNIDine HCL [Catapres] 0.1 mg PO TID #30 tab 08/23/17 Magnesium 200 mg PO DAILY #14 tablet 08/24/17 Diazepam [Valium] 10 mg PO TID tab 08/31/17 Nicotine 14Mg/24Hr Patch [Habitrol] 1 patch TRANSDERM DAILY #7 patch 08/31/17 Levofloxacin [Levaquin] 500 mg PO DAILY #7 tab 09/08/17 Ondansetron [Zofran ODT] 4 mg PO Q8HR PRN #10 tab 09/16/17 Allergies Allergy/AdvReac Type Severity Reaction Status Date / Time No Known Allergies Allergy Verified 09/13/17 15:10 Review of Systems ROS Statement: Those systems with pertinent positive or pertinent negative responses have been documented in the HPI. ROS Other: All systems not noted in ROS Statement are negative. Past Medical History Past Medical History: GERD/Reflux, Hyperlipidemia, Pneumonia, Prostate Disorder Additional Past Medical History / Comment(s): ETOH ABUSE, RECURRANT PANCREATITIS , ALCOHOLIC HEPATITIS, NEPHROLITHIASIS, hx of CHRONIC URINARY RETENTION DUE TO BACK PROBLEMS-SELF CATHS.UTI. CHRONIC LOW BACK PAIN. History of Any Multi-Drug Resistant Organisms: None Reported Past Surgical History: Back Surgery, Cholecystectomy, Orthopedic Surgery Additional Past Surgical History / Comment(s): Bronchoscopy, BACK surgeries with TITANIUM PLATES MILTON and CAGES, KIDNEY STONES removed per pt, SPINAL CORD STIMULATOR, ISMAEL KNEE ARTHROSCOPIES, PINKY FINGER RT HAND REATTATCHED Past Anesthesia/Blood Transfusion Reactions: No Reported Reaction Past Psychological History: Anxiety, Depression Smoking Status: Heavy tobacco smoker Past Alcohol Use History: Occasional Past Drug Use History: None Reported - Past Family History Father Family Medical History: Diabetes Mellitus Additional Family Medical History / Comment(s): Mother Family Medical History: Dementia, Hyperlipidemia, Hypertension Additional Family Medical History / Comment(s): Mother is living. General Exam Limitations: no limitations General appearance: alert, in no apparent distress, other (This is a well- developed, well-nourished adult male patient in no acute distress. Vital signs upon presentation are temperature 97.6F, pulse 61, respirations 17, blood pressure 100/66, pulse ox 99% on room air.) Eye exam: Present: normal appearance, PERRL, EOMI. Absent: scleral icterus, conjunctival injection, periorbital swelling ENT exam: Present: normal exam, normal oropharynx, mucous membranes moist Neck exam: Present: normal inspection. Absent: tenderness, meningismus, lymphadenopathy Respiratory exam: Present: normal lung sounds bilaterally. Absent: respiratory distress, wheezes, rales, rhonchi, stridor Cardiovascular Exam: Present: regular rate, normal rhythm, normal heart sounds. Absent: systolic murmur, diastolic murmur, rubs, gallop, clicks GI/Abdominal exam: Present: soft, tenderness (Midepigastric tenderness), normal bowel sounds. Absent: distended, guarding, rebound, rigid Back exam: Present: normal inspection Neurological exam: Present: alert, oriented X3, CN II-XII intact Psychiatric exam: Present: normal affect, normal mood Skin exam: Present: warm, dry, intact, normal color. Absent: rash Course Vital Signs 09/16/17 09/16/17 09/16/17 10:42 11:57 13:03 Temperature 97.6 F 99 F Pulse Rate 61 91 88 Respiratory 17 20 20 Rate Blood Pressure 100/66 131/89 133/85 O2 Sat by Pulse 99 99 99 Oximetry Medical Decision Making - Medical Decision Making 47-year-old male patient percents to the emergency department today for evaluation of upper abdominal pain with radiation to his back. Physical examination did reveal some upper abdominal tenderness. Labs reviewed and showed a white blood cell count of 10.9, potassium 5.3, glucose 105, and an alk phos of 175. Amylase and lipase were normal. X-ray of the abdomen showed no acute abnormalities. Patient was given IV fluids and Toradol here in the department. States he is feeling mildly improved. He requests more pain medication. I informed him any further pain medications at the come from his primary care physician. He'll be discharged at this time to follow-up with his doctor as well as GI specialist. He is instructed to return here immediately for any new, worsening, or concerning symptoms. He verbalizes understanding and agrees with this plan. - Lab Data Result diagrams: 09/16/17 11:15 09/16/17 11:15 Lab Results 09/16/17 09/16/17 09/16/17 Range/Units 11:15 11:15 11:50 WBC 10.9 H (3.8-10.6) k/uL RBC 4.43 (4.30-5.90) m/uL Hgb 13.3 (13.0-17.5) gm/dL Hct 40.8 (39.0-53.0) % MCV 92.1 (80.0-100.0) fL MCH 30.1 (25.0-35.0) pg MCHC 32.7 (31.0-37.0) g/dL RDW 13.3 (11.5-15.5) % Plt Count 436 (150-450) k/uL Neutrophils % 83 % Lymphocytes % 11 % Monocytes % 4 % Eosinophils % 1 % Basophils % 0 % Neutrophils # 9.0 H (1.3-7.7) k/uL Lymphocytes # 1.2 (1.0-4.8) k/uL Monocytes # 0.5 (0-1.0) k/uL Eosinophils # 0.1 (0-0.7) k/uL Basophils # 0.0 (0-0.2) k/uL Sodium 139 (137-145) mmol/L Potassium 5.3 H (3.5-5.1) mmol/L Chloride 104 (98-107) mmol/L Carbon Dioxide 27 (22-30) mmol/L Anion Gap 8 mmol/L BUN 9 (9-20) mg/dL Creatinine 0.58 L (0.66-1.25) mg/dL Est GFR (CKD-EPI)AfAm >90 (>60 ml/min/1.73 sqM) Est GFR (CKD-EPI)NonAf >90 (>60 ml/min/1.73 sqM) Glucose 105 H (74-99) mg/dL Calcium 9.0 (8.4-10.2) mg/dL Total Bilirubin 0.5 (0.2-1.3) mg/dL AST 27 (17-59) U/L ALT 27 (21-72) U/L Alkaline Phosphatase 175 H (38-126) U/L Total Protein 6.3 (6.3-8.2) g/dL Albumin 3.2 L (3.5-5.0) g/dL Amylase 48 (30-110) U/L Lipase 229 (23-300) U/L Urine Color Yellow Urine Appearance Clear (Clear) Urine pH 7.0 (5.0-8.0) Ur Specific [place] 1.009 (1.001-1.035) Urine Protein Negative (Negative) Urine Glucose (UA) Negative (Negative) Urine Ketones Negative (Negative) Urine Blood Negative (Negative) Urine Nitrite Negative (Negative) Urine Bilirubin Negative (Negative) Urine Urobilinogen <2.0 (<2.0) mg/dL Ur Leukocyte Esterase Moderate H (Negative) Urine RBC 3 (0-5) /hpf Urine WBC 12 H (0-5) /hpf Urine Yeast (Budding) Many H (None) /hpf - Radiology Data Radiology results: report reviewed, image reviewed Two-view x-ray of the abdomen shows the pain stimuli to projecting over the lower dorsal spine. There has been a previous interpedicular fusion was spacing placement L4, L5, and S1. The gallbladder has been removed. Lung bases are clear. Within the abdomen, the abdominal gas pattern is normal. There is no evidence of obstruction or free air. No unusual calcifications. Impression by Dr. Hunter shows no acute intra-abdominal abnormality. Post surgical change. Disposition Clinical Impression: Abdominal pain Disposition: ADMITTED IP TO THIS HOSP Condition: Good Instructions: Abdominal Pain (ED) Additional Instructions: Start with clear liquid diet and advance as tolerated. Follow-up through primary care physician for recheck in 1-2 days. Return here immediately for any new, worsening, or concerning symptoms. Prescriptions: Ondansetron [Zofran ODT] 4 mg PO Q8HR PRN #10 tab PRN Reason: Nausea Is patient prescribed a controlled substance at d/c from ED?: No Referrals: Carrillo Leo Jr, DO [Primary Care Provider] - 1-2 days Time of Disposition: 12:42
[2017-09-16 13:04] VITALS: BP 133/85; PULSE 88; TEMP 99
== END 2017-09-16 13:15 | disposition other institution (70) ==
LOC: EC 10:39
DX: R10.11 Right upper quadrant pain (principal); R11.0 Nausea; R07.9 Chest pain, unspecified; E78.5 Hyperlipidemia, unspecified; F41.9 Anxiety disorder, unspecified; F32.9 Major depressive disorder, single episode, unspecified; F17.200 Nicotine dependence, unspecified, uncomplicated; Z87.19 Personal history of other diseases of the digestive system; Z82.49 Family history of ischemic heart disease and other diseases of the circulatory system; Z90.49 Acquired absence of other specified parts of digestive tract; Z79.899 Other long term (current) drug therapy; Z79.51 Long term (current) use of inhaled steroids
CPT/HCPCS: 36415; 93005; 80053; 82150; 83690; 85025; 81001; 87086; 74018; 99285; 96374; 96375; 96361 ×2; J2405; J1885

== ENCOUNTER 2017-09-18 16:29 | Emergency (ER) | payer MEDICARE, OTHER ==
[2017-09-18] MEDS ORDERED: KETOROLAC 30 MG/ML 1 ML VIAL IVP STA (17:06)
[2017-09-18] MEDS ORDERED: ONDANSETRON 4 MG/2 ML VIAL IVP STA (17:06)
[2017-09-18] MEDS ORDERED: SODIUM CHLORIDE 0.9% 1,000 ML IV ONE (17:07)
--- NOTE | 2017-09-18 17:08 | ED ---
General Adult HPI - General Chief complaint: Chest Pain Stated complaint: Chest pain Time Seen by Provider: 09/18/17 16:38 Source: patient, family, EMS, RN notes reviewed, old records reviewed Mode of arrival: EMS Limitations: no limitations - History of Present Illness Initial comments: 47-year-old male presents for evaluation of epigastric pain and chest pain. Patient has history of chronic pancreatitis. States his last drink was approximately one month ago. He has had nausea and epigastric abdominal pain as well as chest pain. No lower abdominal pain. No fever or chills. No significant vomiting. No diarrhea. Pain is constant in nature. Patient states he has not had much to eat or drink secondary to the pain. - Related Data Home Medications Medication Instructions Recorded Confirmed Atorvastatin [Lipitor] 10 mg PO HS 09/27/15 09/18/17 Albuterol Inhaler [Ventolin Hfa 2 puff INHALATION RT-Q4H PRN 03/01/17 09/18/17 Inhaler] Budesonide/Formoterol Fumarate 1 puff INHALATION RT-BID 04/04/17 09/18/17 [Symbicort 80-4.5 Mcg Inhaler] traZODone HCL 50 mg PO HS 04/04/17 09/18/17 Gabapentin [Neurontin] 400 mg PO TID 07/18/17 09/18/17 Acetaminophen-Codeine 300-30mg 1 tab PO Q6HR PRN 09/10/17 09/18/17 [Tylenol w/codeine #3] DULoxetine HCL [Cymbalta] 30 mg PO DAILY 09/18/17 09/18/17 Magnesium Oxide [Mag-Ox] 200 mg PO DAILY 09/18/17 09/18/17 Tamsulosin HCl [Flomax] 0.4 mg PO DAILY 09/18/17 09/18/17 Previous Rx's Medication Instructions Recorded Folic Acid 1 mg PO DAILY #30 tablet 07/15/15 Omeprazole [PriLOSEC] 40 mg PO BID #60 capsule. 05/16/17 cloNIDine HCL [Catapres] 0.1 mg PO TID #30 tab 08/23/17 Diazepam [Valium] 10 mg PO TID tab 08/31/17 Nicotine 14Mg/24Hr Patch [Habitrol] 1 patch TRANSDERM DAILY #7 patch 08/31/17 Levofloxacin [Levaquin] 500 mg PO DAILY #7 tab 09/08/17 Ondansetron [Zofran ODT] 4 mg PO Q8HR PRN #10 tab 09/16/17 Allergies Allergy/AdvReac Type Severity Reaction Status Date / Time No Known Allergies Allergy Verified 09/18/17 16:47 Review of Systems ROS Statement: Those systems with pertinent positive or pertinent negative responses have been documented in the HPI. ROS Other: All systems not noted in ROS Statement are negative. Past Medical History Past Medical History: GERD/Reflux, Hyperlipidemia, Pneumonia, Prostate Disorder Additional Past Medical History / Comment(s): ETOH ABUSE, RECURRANT PANCREATITIS , ALCOHOLIC HEPATITIS, NEPHROLITHIASIS, hx of CHRONIC URINARY RETENTION DUE TO BACK PROBLEMS-SELF CATHS.UTI. CHRONIC LOW BACK PAIN. History of Any Multi-Drug Resistant Organisms: None Reported Past Surgical History: Back Surgery, Cholecystectomy, Orthopedic Surgery Additional Past Surgical History / Comment(s): Bronchoscopy, BACK surgeries with TITANIUM PLATES MILTON and CAGES, KIDNEY STONES removed per pt, SPINAL CORD STIMULATOR, ISMAEL KNEE ARTHROSCOPIES, PINKY FINGER RT HAND REATTATCHED Past Anesthesia/Blood Transfusion Reactions: No Reported Reaction Past Psychological History: Anxiety, Depression Smoking Status: Heavy tobacco smoker Past Alcohol Use History: Occasional Past Drug Use History: None Reported - Past Family History Father Family Medical History: Diabetes Mellitus Additional Family Medical History / Comment(s): Mother Family Medical History: Dementia, Hyperlipidemia, Hypertension Additional Family Medical History / Comment(s): Mother is living. General Exam Limitations: no limitations General appearance: alert, in no apparent distress Head exam: Present: atraumatic, normocephalic Eye exam: Present: normal appearance, PERRL, EOMI ENT exam: Present: mucous membranes dry Neck exam: Present: normal inspection Respiratory exam: Present: normal lung sounds bilaterally. Absent: respiratory distress, wheezes Cardiovascular Exam: Present: regular rate, normal rhythm GI/Abdominal exam: Present: soft, tenderness (Epigastric tenderness to palpation ). Absent: distended Extremities exam: Present: normal inspection, normal capillary refill. Absent: pedal edema Neurological exam: Present: alert, oriented X3, CN II-XII intact. Absent: motor sensory deficit Psychiatric exam: Present: normal affect, normal mood Skin exam: Present: warm, dry, intact, normal color. Absent: cyanosis, diaphoretic Course Vital Signs 09/18/17 09/18/17 16:35 18:39 Temperature 98.5 F Pulse Rate 88 82 Respiratory 18 20 Rate Blood Pressure 128/75 133/86 O2 Sat by Pulse 97 98 Oximetry - Reevaluation(s) Reevaluation #1: 09/18/17 17:09 Patient received an outpatient computed tomography scan today. These records will be reviewed. EKG Findings - EKG Comments: EKG Findings:: EKG: Normal sinus rhythm, ventricular rate 84, IA interval 150, QRS duration 80, QTC 453, no ST segment elevation, no T-wave abnormality Medical Decision Making - Medical Decision Making 47-year-old male presenting with epigastric and chest pain. Patient does have history of chronic pancreatitis. He had an outpatient CT earlier today ordered by his primary care physician. This showed residual inflammation which was significantly improved compared to August 19. There was some fat stranding and a 9 mm cyst. This imaging is improved. Patient has not had a drink and 33 days. Alcohol negative. Lipase is normal at 65. Troponin negative. Electrolytes within normal limits, there is some mild hyponatremia 133. Hemoglobin stable blood cell count. EKG is nonischemic. On reevaluation, patient is feeling somewhat better. He still has some pain however he is tolerating liquids. He will continue symptomatic treatment at home. He will follow-up with his primary care physician and return with worsening or changing symptoms. - Lab Data Result diagrams: 09/18/17 17:07 09/18/17 17:07 Lab Results 09/18/17 09/18/17 09/18/17 Range/Units 17:07 17:07 17:07 WBC 10.0 (3.8-10.6) k/uL RBC 3.82 L (4.30-5.90) m/uL Hgb 11.5 L (13.0-17.5) gm/dL Hct 34.4 L (39.0-53.0) % MCV 90.1 (80.0-100.0) fL MCH 30.2 (25.0-35.0) pg MCHC 33.5 (31.0-37.0) g/dL RDW 13.4 (11.5-15.5) % Plt Count 416 (150-450) k/uL Neutrophils % 73 % Lymphocytes % 19 % Monocytes % 6 % Eosinophils % 2 % Basophils % 0 % Neutrophils # 7.3 (1.3-7.7) k/uL Lymphocytes # 1.9 (1.0-4.8) k/uL Monocytes # 0.6 (0-1.0) k/uL Eosinophils # 0.2 (0-0.7) k/uL Basophils # 0.0 (0-0.2) k/uL PT (9.0-12.0) sec INR (<1.2) APTT (22.0-30.0) sec Sodium 133 L (137-145) mmol/L Potassium 4.2 (3.5-5.1) mmol/L Chloride 100 (98-107) mmol/L Carbon Dioxide 25 (22-30) mmol/L Anion Gap 8 mmol/L BUN 11 (9-20) mg/dL Creatinine 0.50 L (0.66-1.25) mg/dL Est GFR (CKD-EPI)AfAm >90 (>60 ml/min/1.73 sqM) Est GFR (CKD-EPI)NonAf >90 (>60 ml/min/1.73 sqM) Glucose 87 (74-99) mg/dL Calcium 8.7 (8.4-10.2) mg/dL Magnesium 1.8 (1.6-2.3) mg/dL Total Bilirubin 0.3 (0.2-1.3) mg/dL AST 32 (17-59) U/L ALT 26 (21-72) U/L Alkaline Phosphatase 132 H (38-126) U/L Total Creatine Kinase 41 L (55-170) U/L CK-MB (CK-2) 0.5 (0.0-2.4) ng/mL CK-MB (CK-2) Rel Index 1.2 Troponin I <0.012 (0.000-0.034) ng/mL NT-Pro-B Natriuret Pep pg/mL Total Protein 5.5 L (6.3-8.2) g/dL Albumin 2.8 L (3.5-5.0) g/dL Amylase 36 (30-110) U/L Lipase 65 (23-300) U/L Serum Alcohol <10 mg/dL 09/18/17 09/18/17 Range/Units 17:07 17:07 WBC (3.8-10.6) k/uL RBC (4.30-5.90) m/uL Hgb (13.0-17.5) gm/dL Hct (39.0-53.0) % MCV (80.0-100.0) fL MCH (25.0-35.0) pg MCHC (31.0-37.0) g/dL RDW (11.5-15.5) % Plt Count (150-450) k/uL Neutrophils % % Lymphocytes % % Monocytes % % Eosinophils % % Basophils % % Neutrophils # (1.3-7.7) k/uL Lymphocytes # (1.0-4.8) k/uL Monocytes # (0-1.0) k/uL Eosinophils # (0-0.7) k/uL Basophils # (0-0.2) k/uL PT 10.2 (9.0-12.0) sec INR 1.0 (<1.2) APTT 25.3 (22.0-30.0) sec Sodium (137-145) mmol/L Potassium (3.5-5.1) mmol/L Chloride (98-107) mmol/L Carbon Dioxide (22-30) mmol/L Anion Gap mmol/L BUN (9-20) mg/dL Creatinine (0.66-1.25) mg/dL Est GFR (CKD-EPI)AfAm (>60 ml/min/1.73 sqM) Est GFR (CKD-EPI)NonAf (>60 ml/min/1.73 sqM) Glucose (74-99) mg/dL Calcium (8.4-10.2) mg/dL Magnesium (1.6-2.3) mg/dL Total Bilirubin (0.2-1.3) mg/dL AST (17-59) U/L ALT (21-72) U/L Alkaline Phosphatase (38-126) U/L Total Creatine Kinase (55-170) U/L CK-MB (CK-2) (0.0-2.4) ng/mL CK-MB (CK-2) Rel Index Troponin I (0.000-0.034) ng/mL NT-Pro-B Natriuret Pep 198 pg/mL Total Protein (6.3-8.2) g/dL Albumin (3.5-5.0) g/dL Amylase (30-110) U/L Lipase (23-300) U/L Serum Alcohol mg/dL Disposition Clinical Impression: Chronic pancreatitis Disposition: HOME SELF-CARE Condition: Fair Instructions: Pancreatitis (ED) Is patient prescribed a controlled substance at d/c from ED?: No Referrals: Carrillo Leo Jr, DO [Primary Care Provider] - 1-2 days Time of Disposition: 20:29
[2017-09-18 17:16] LABS: Basophils % (A) 0 %; Eosinophils # (A) 0.2 k/uL (0-0.7); Eosinophils % (A) 2 %; HCT 34.4 % (39.0-53.0); HGB 11.5 gm/dL (13.0-17.5); Lymphocytes # (A) 1.9 k/uL (1.0-4.8); Lymphocytes % (A) 19 %; MCH 30.2 pg (25.0-35.0); MCHC 33.5 g/dL (31.0-37.0); MCV 90.1 fL (80.0-100.0); Mean Platelet Volume 7.9; Monocytes # (A) 0.6 k/uL (0-1.0); Monocytes % (A) 6 %; Neutrophils # (A) 7.3 k/uL (1.3-7.7); Neutrophils % (A) 73 %; Platelet Count 416 k/uL (150-450); RBC 3.82 m/uL (4.30-5.90); RDW 13.4 % (11.5-15.5)
[2017-09-18 17:25] LABS: ALT 26 U/L (21-72); AST 32 U/L (17-59); Albumin 2.8 g/dL (3.5-5.0); Alcohol <10 mg/dL; Alkaline Phosphatase 132 U/L (38-126); Amylase 36 U/L (30-110); Anion Gap 8 mmol/L; Blood Urea Nitrogen 11 mg/dL (9-20); Calcium 8.7 mg/dL (8.4-10.2); Carbon Dioxide 25 mmol/L (22-30); Chloride 100 mmol/L (98-107); Glucose 87 mg/dL (74-99); Lipase 65 U/L (23-300); Magnesium 1.8 mg/dL (1.6-2.3); Partial Thromboplastin Time 25.3 sec (22.0-30.0); Potassium 4.2 mmol/L (3.5-5.1); Prothrombin Time 10.2 sec (9.0-12.0); Sodium 133 mmol/L (137-145); Total Bilirubin 0.3 mg/dL (0.2-1.3); Total Protein 5.5 g/dL (6.3-8.2)
[2017-09-18 17:27] LABS: Creatine Kinase 41 U/L (55-170)
[2017-09-18 17:40] LABS: Creatine Kinase MB 0.5 ng/mL (0.0-2.4); Troponin I <0.012 ng/mL (0.000-0.034)
--- NOTE | 2017-09-18 17:50 | XR ---
EXAMINATION TYPE: XR chest 2V DATE OF EXAM: 09/18/2017 COMPARISON: 09/10/2017 HISTORY: Pain TECHNIQUE: Frontal and lateral views of the chest are obtained. FINDINGS: There is no focal air space opacity, pleural effusion, or pneumothorax seen. The cardiac silhouette size is within normal limits. The osseous structures are intact. IMPRESSION: No acute cardiopulmonary process.
[2017-09-18] MEDS ORDERED: HYDROcodone/APAP 5-325MG 1 EACH TAB PO STA (19:05)
[2017-09-18 21:06] VITALS: BP 135/80; PULSE 80; RESP 18; TEMP 98.4
== END 2017-09-18 20:50 | disposition home or self-care (01) ==
LOC: EC 16:29
DX: K86.1 Other chronic pancreatitis (principal); E87.1 Hypo-osmolality and hyponatremia; E78.5 Hyperlipidemia, unspecified; N42.9 Disorder of prostate, unspecified; F32.9 Major depressive disorder, single episode, unspecified; F41.9 Anxiety disorder, unspecified; F17.200 Nicotine dependence, unspecified, uncomplicated; Z79.51 Long term (current) use of inhaled steroids; Z79.899 Other long term (current) drug therapy; Z90.49 Acquired absence of other specified parts of digestive tract
CPT/HCPCS: 99285 ×2; 96374 ×2; 96375 ×2; 96361 ×2; 36415; 93005; 83880; 80053; 82150; 82550; 82553; 83690; 83735; 84484; 85025; 85610; 85730; 80320; 71046; 74177; J2405; J1885; Q9967

== ENCOUNTER → 2017-09-18 | Outpatient (CLI) | payer MEDICARE, OTHER ==
--- NOTE | 2017-09-18 12:29 | CT ---
EXAMINATION TYPE: CT abdomen pelvis w con DATE OF EXAM: 09/18/2017 COMPARISON: 08/19/2017 HISTORY: 47-year-old male RLQ abdominal pain TECHNIQUE: Contiguous axial scanning of the abdomen and pelvis following administration of 100 ml Omn ipaque 300 IV contrast. Delayed images through the kidneys and coronal/sagittal reconstructions perf ormed. CT DLP: 554.10 mGycm Automated exposure control for dose reduction was used. FINDINGS: Heart normal size without pericardial effusion. Some minimal strandy atelectasis inferior lingula. No pleural effusion. Small amount of hypodensity along the anterior falciform ligament probably representing focal fat. There is some caliber narrowing of the distal splenic vein though improved from 08/19/2017 and addition al mild narrowing at the portal vein confluence also showing interval improvement. Cholecystectomy clips. Adrenal glands, right kidney, and spleen appear within normal limits. Slightly atrophic left kidney with continued mild to moderate left-sided hydronephrosis. Heterogeneity of the distal pancreatic body, neck, and head are present but with improved swelling an d decreasing surrounding inflammation. Some residual surrounding inflammation is present including so ft tissue infiltration extending toward the sharon hepatis region. No definite focal mass is identified in the pancreas. Small 9 mm cyst in the pancreatic body is redem onstrated but noted to be new from 01/19/2017. Prominent 8 mm sharon hepatic lymph node. Left periaortic lymph nodes in the retroperitoneum are bord arabella enlarged measuring 1 cm. Findings are likely reactive and were present back on 01/19/2017. No intrahepatic biliary ductal dilatation. No dilated small bowel, free fluid, or free air. Normal appendix. No significant stool burden. Circumferential bladder wall thickening. Prostate gland mildly enlarged at 4.9 cm wide with pelvic ph leboliths. No abnormal fluid collection in the pelvis or pelvic lymphadenopathy seen. Bones: L4-S1 posterior spinal fusion. Generator device is present posteriorly on the left. Spinal sti mulator array extends up into the thoracic spinal canal beyond the [id number]. IMPRESSION: 1. Residual inflammatory changes of the pancreatic body, neck, and head though significantly improved from 08/19/2017. There is less mass effect on to the splenic vein and portal venous confluence. Residu al peripancreatic inflammatory fat stranding and some inflammatory infiltrative soft tissue in the po rta hepatis remain. 2. Residual small 9 mm pseudocyst in the pancreatic body. 3. Recommend follow-up to ensure resolution of all of the inflammatory changes. No discrete underlyin g pancreatic mass is seen. Correlation can be made with CA-19-9 levels in the meantime. 4. Some borderline-sized left paraaortic and portahepatis lymph nodes are likely reactive. The retrop eritoneal nodes were present back on 01/19/2017.
== END ==
LOC: RADCTMAIN 09:50
PROVIDERS: ATTEND Family Medicine
DX: K86.3 Pseudocyst of pancreas (principal); K85.90 Acute pancreatitis without necrosis or infection, unspecified; R10.31 Right lower quadrant pain
CPT/HCPCS: 74177; Q9967

== ENCOUNTER 2017-10-02 19:53 | Emergency (ER) | payer MEDICARE, OTHER ==
[2017-10-02] MEDS ORDERED: MORPHINE SULFATE 4 MG/ML SYRINGE IV STA (20:43)
[2017-10-02] MEDS ORDERED: PANTOPRAZOLE 40 MG/10 ML VIAL IVP STA (20:43)
[2017-10-02] MEDS ORDERED: ONDANSETRON 4 MG/2 ML VIAL IVP STA (20:44)
--- NOTE | 2017-10-02 20:47 | ED ---
General Adult HPI - General Chief complaint: Abdominal Pain Stated complaint: Abdominal pain Time Seen by Provider: 10/02/17 20:35 Source: patient, RN notes reviewed Mode of arrival: wheelchair Limitations: no limitations - History of Present Illness Initial comments: Patient is a pleasant 47-year-old male presenting to the emergency Department with abdominal discomfort. Onset of symptoms was several hours ago. Discomfort has been persistent. Discomfort is in the epigastric region. Patient states there is also some mild discomfort near the left nipple. Patient states abdominal discomfort is chronic for him. Patient has known pancreatitis secondary to history of alcohol use. Last alcohol was 2 months ago. Patient states he has had similar symptoms at least dozens of times including the chest discomfort. - Related Data Home Medications Medication Instructions Recorded Confirmed Atorvastatin [Lipitor] 10 mg PO HS 09/27/15 10/02/17 Albuterol Inhaler [Ventolin Hfa 2 puff INHALATION RT-Q4H PRN 03/01/17 10/02/17 Inhaler] Budesonide/Formoterol Fumarate 1 puff INHALATION RT-BID 04/04/17 10/02/17 [Symbicort 80-4.5 Mcg Inhaler] traZODone HCL 50 mg PO HS 04/04/17 10/02/17 Gabapentin [Neurontin] 400 mg PO TID 07/18/17 10/02/17 Acetaminophen-Codeine 300-30mg 1 tab PO Q6HR PRN 09/10/17 10/02/17 [Tylenol w/codeine #3] DULoxetine HCL [Cymbalta] 30 mg PO DAILY 09/18/17 10/02/17 Magnesium Oxide [Mag-Ox] 200 mg PO DAILY 09/18/17 10/02/17 Tamsulosin HCl [Flomax] 0.4 mg PO DAILY 09/18/17 10/02/17 Previous Rx's Medication Instructions Recorded Folic Acid 1 mg PO DAILY #30 tablet 07/15/15 Omeprazole [PriLOSEC] 40 mg PO BID #60 capsule. 05/16/17 cloNIDine HCL [Catapres] 0.1 mg PO TID #30 tab 08/23/17 Diazepam [Valium] 10 mg PO TID tab 08/31/17 Nicotine 14Mg/24Hr Patch [Habitrol] 1 patch TRANSDERM DAILY #7 patch 08/31/17 Levofloxacin [Levaquin] 500 mg PO DAILY #7 tab 09/08/17 Ondansetron [Zofran ODT] 4 mg PO Q8HR PRN #10 tab 09/16/17 Allergies Allergy/AdvReac Type Severity Reaction Status Date / Time No Known Allergies Allergy Verified 10/02/17 20:56 Review of Systems ROS Statement: Those systems with pertinent positive or pertinent negative responses have been documented in the HPI. ROS Other: All systems not noted in ROS Statement are negative. Constitutional: Denies: fever Eyes: Denies: eye pain ENT: Denies: ear pain Respiratory: Denies: cough Cardiovascular: Reports: chest pain Endocrine: Denies: fatigue Gastrointestinal: Reports: abdominal pain, nausea. Denies: vomiting Genitourinary: Denies: dysuria Musculoskeletal: Denies: back pain Skin: Denies: rash Neurological: Denies: weakness Past Medical History Past Medical History: GERD/Reflux, Hyperlipidemia, Pneumonia, Prostate Disorder Additional Past Medical History / Comment(s): ETOH ABUSE, RECURRANT PANCREATITIS , ALCOHOLIC HEPATITIS, NEPHROLITHIASIS, hx of CHRONIC URINARY RETENTION DUE TO BACK PROBLEMS-SELF CATHS.UTI. CHRONIC LOW BACK PAIN. History of Any Multi-Drug Resistant Organisms: None Reported Past Surgical History: Back Surgery, Cholecystectomy, Orthopedic Surgery Additional Past Surgical History / Comment(s): Bronchoscopy, BACK surgeries with TITANIUM PLATES MILTON and CAGES, KIDNEY STONES removed per pt, SPINAL CORD STIMULATOR, ISMAEL KNEE ARTHROSCOPIES, PINKY FINGER RT HAND REATTATCHED Past Anesthesia/Blood Transfusion Reactions: No Reported Reaction Past Psychological History: Anxiety, Depression Smoking Status: Heavy tobacco smoker Past Alcohol Use History: None Reported Past Drug Use History: None Reported - Past Family History Father Family Medical History: Diabetes Mellitus Additional Family Medical History / Comment(s): Mother Family Medical History: Dementia, Hyperlipidemia, Hypertension Additional Family Medical History / Comment(s): Mother is living. General Exam Limitations: no limitations General appearance: alert, in no apparent distress Head exam: Present: atraumatic Eye exam: Present: normal appearance, PERRL ENT exam: Present: normal oropharynx Neck exam: Present: normal inspection Respiratory exam: Present: normal lung sounds bilaterally. Absent: chest wall tenderness Cardiovascular Exam: Present: regular rate, normal rhythm Expanded Peripheral pulses: 2+: Radial (R), Radial (L), Posterior Tibialis (R), Posterior Tibialis (L) GI/Abdominal exam: Present: soft, tenderness (Mild to moderate tenderness in the epigastric region), normal bowel sounds. Absent: distended, guarding, rebound, rigid, pulsatile mass Extremities exam: Present: normal inspection. Absent: pedal edema, calf tenderness Neurological exam: Present: alert Psychiatric exam: Present: normal affect, normal mood Skin exam: Present: normal color Course Vital Signs 10/02/17 10/02/17 10/02/17 20:05 22:14 23:28 Temperature 98 F Pulse Rate 90 87 88 Respiratory 15 16 20 Rate Blood Pressure 106/69 117/74 100/65 O2 Sat by Pulse 100 98 98 Oximetry EKG Findings - EKG Comments: EKG Findings:: Normal sinus rhythm 92. [place] 150. QRS 80. QT 370. QTc 457. Normal axis. Normal QRS. No acute ST change. Medical Decision Making - Medical Decision Making Patient reevaluated and feels unchanged. Case was discussed with Dr. Trejo who is familiar with this patient and is comfortable with discharge. He states patient could receive 1 additional dose of pain medication prior to discharge and they will follow up with patient tomorrow. Patient is updated. - Lab Data Result diagrams: 10/02/17 21:07 10/02/17 21:07 Lab Results 10/02/17 10/02/17 10/02/17 Range/Units 21:07 21:07 21:07 WBC 12.5 H (3.8-10.6) k/uL RBC 4.20 L (4.30-5.90) m/uL Hgb 12.5 L (13.0-17.5) gm/dL Hct 38.5 L (39.0-53.0) % MCV 91.6 (80.0-100.0) fL MCH 29.8 (25.0-35.0) pg MCHC 32.6 (31.0-37.0) g/dL RDW 13.9 (11.5-15.5) % Plt Count 321 (150-450) k/uL Neutrophils % 80 % Lymphocytes % 11 % Monocytes % 6 % Eosinophils % 2 % Basophils % 0 % Neutrophils # 10.0 H (1.3-7.7) k/uL Lymphocytes # 1.4 (1.0-4.8) k/uL Monocytes # 0.8 (0-1.0) k/uL Eosinophils # 0.3 (0-0.7) k/uL Basophils # 0.0 (0-0.2) k/uL PT (9.0-12.0) sec INR (<1.2) APTT (22.0-30.0) sec Sodium 139 (137-145) mmol/L Potassium 4.4 (3.5-5.1) mmol/L Chloride 103 (98-107) mmol/L Carbon Dioxide 24 (22-30) mmol/L Anion Gap 12 mmol/L BUN 12 (9-20) mg/dL Creatinine 0.60 L (0.66-1.25) mg/dL Est GFR (CKD-EPI)AfAm >90 (>60 ml/min/1.73 sqM) Est GFR (CKD-EPI)NonAf >90 (>60 ml/min/1.73 sqM) Glucose 102 H (74-99) mg/dL Calcium 9.1 (8.4-10.2) mg/dL Total Bilirubin 0.6 (0.2-1.3) mg/dL AST 23 (17-59) U/L ALT 25 (21-72) U/L Alkaline Phosphatase 133 H (38-126) U/L Total Creatine Kinase 50 L (55-170) U/L CK-MB (CK-2) 0.6 (0.0-2.4) ng/mL CK-MB (CK-2) Rel Index 1.2 Troponin I <0.012 (0.000-0.034) ng/mL Total Protein 6.5 (6.3-8.2) g/dL Albumin 3.4 L (3.5-5.0) g/dL Amylase 94 (30-110) U/L Lipase 852 H (23-300) U/L Serum Alcohol <10 mg/dL 10/02/17 Range/Units 21:07 WBC (3.8-10.6) k/uL RBC (4.30-5.90) m/uL Hgb (13.0-17.5) gm/dL Hct (39.0-53.0) % MCV (80.0-100.0) fL MCH (25.0-35.0) pg MCHC (31.0-37.0) g/dL RDW (11.5-15.5) % Plt Count (150-450) k/uL Neutrophils % % Lymphocytes % % Monocytes % % Eosinophils % % Basophils % % Neutrophils # (1.3-7.7) k/uL Lymphocytes # (1.0-4.8) k/uL Monocytes # (0-1.0) k/uL Eosinophils # (0-0.7) k/uL Basophils # (0-0.2) k/uL PT 10.3 (9.0-12.0) sec INR 1.1 (<1.2) APTT 25.9 (22.0-30.0) sec Sodium (137-145) mmol/L Potassium (3.5-5.1) mmol/L Chloride (98-107) mmol/L Carbon Dioxide (22-30) mmol/L Anion Gap mmol/L BUN (9-20) mg/dL Creatinine (0.66-1.25) mg/dL Est GFR (CKD-EPI)AfAm (>60 ml/min/1.73 sqM) Est GFR (CKD-EPI)NonAf (>60 ml/min/1.73 sqM) Glucose (74-99) mg/dL Calcium (8.4-10.2) mg/dL Total Bilirubin (0.2-1.3) mg/dL AST (17-59) U/L ALT (21-72) U/L Alkaline Phosphatase (38-126) U/L Total Creatine Kinase (55-170) U/L CK-MB (CK-2) (0.0-2.4) ng/mL CK-MB (CK-2) Rel Index Troponin I (0.000-0.034) ng/mL Total Protein (6.3-8.2) g/dL Albumin (3.5-5.0) g/dL Amylase (30-110) U/L Lipase (23-300) U/L Serum Alcohol mg/dL - Radiology Data Radiology results: image reviewed (Chest and abdominal x-ray shows no acute process) Disposition Clinical Impression: Abdominal pain, Chronic pancreatitis Disposition: HOME SELF-CARE Condition: Stable Instructions: Abdominal Pain (ED), Pancreatitis (ED) Additional Instructions: Please follow-up tomorrow with Dr. Trejo or Dr. Woodson. Return for increased pain, fever, worsening or change in symptoms or other concerns. Is patient prescribed a controlled substance at d/c from ED?: No Referrals: Carrillo Leo Jr, [Primary Care Provider] - 1-2 days Time of Disposition: 00:37
[2017-10-02 21:23] LABS: Basophils % (A) 0 %; Eosinophils # (A) 0.3 k/uL (0-0.7); Eosinophils % (A) 2 %; HCT 38.5 % (39.0-53.0); HGB 12.5 gm/dL (13.0-17.5); Lymphocytes # (A) 1.4 k/uL (1.0-4.8); Lymphocytes % (A) 11 %; MCH 29.8 pg (25.0-35.0); MCHC 32.6 g/dL (31.0-37.0); MCV 91.6 fL (80.0-100.0); Mean Platelet Volume 8.4; Monocytes # (A) 0.8 k/uL (0-1.0); Monocytes % (A) 6 %; Neutrophils % (A) 80 %; Platelet Count 321 k/uL (150-450); RDW 13.9 % (11.5-15.5); WBC 12.5 k/uL (3.8-10.6)
[2017-10-02 21:31] LABS: INR 1.1 (<1.2); Partial Thromboplastin Time 25.9 sec (22.0-30.0); Prothrombin Time 10.3 sec (9.0-12.0)
--- NOTE | 2017-10-02 21:32 | XR ---
EXAMINATION TYPE: XR chest 2V DATE OF EXAM: 10/02/2017 COMPARISON: Chest x-ray from 2 weeks ago. HISTORY: Substernal chest and epigastric pain TECHNIQUE: Frontal and lateral views of the chest are obtained. FINDINGS: There is no focal air space opacity, pleural effusion, or pneumothorax seen. The cardiac silhouette size is within normal limits. Spinal stimulator is redemonstrated. IMPRESSION: No acute cardiopulmonary process. No significant change from prior.
--- NOTE | 2017-10-02 21:33 | XR ---
EXAMINATION TYPE: XR KUB DATE OF EXAM: 10/02/2017 9:23 PM CLINICAL HISTORY: Epigastric pain with nausea. TECHNIQUE: Two Upright KUB images of the abdomen are obtained. COMPARISON: CT abdomen and pelvis from 2 weeks ago. FINDINGS: Scattered gas is seen in non-distended stomach and small bowel loops. Gas is seen in non-di stended colon. Postsurgical change lower lumbar spine is redemonstrated. Cholecystectomy clips are re demonstrated. Spinal stimulator is redemonstrated. Lung bases are clear. No pneumoperitoneum is prese nt. IMPRESSION: Overall nonobstructive bowel gas pattern. No significant change from prior CT.
[2017-10-02 21:41] LABS: ALT 25 U/L (21-72); AST 23 U/L (17-59); Albumin 3.4 g/dL (3.5-5.0); Alcohol <10 mg/dL; Alkaline Phosphatase 133 U/L (38-126); Amylase 94 U/L (30-110); Anion Gap 12 mmol/L; Blood Urea Nitrogen 12 mg/dL (9-20); Calcium 9.1 mg/dL (8.4-10.2); Carbon Dioxide 24 mmol/L (22-30); Chloride 103 mmol/L (98-107); Glucose 102 mg/dL (74-99); Lipase 852 U/L (23-300); Potassium 4.4 mmol/L (3.5-5.1); Sodium 139 mmol/L (137-145); Total Bilirubin 0.6 mg/dL (0.2-1.3); Total Protein 6.5 g/dL (6.3-8.2)
[2017-10-02 21:55] LABS: Creatine Kinase 50 U/L (55-170)
[2017-10-02 22:08] LABS: Creatine Kinase MB 0.6 ng/mL (0.0-2.4); Troponin I <0.012 ng/mL (0.000-0.034)
[2017-10-03] MEDS ORDERED: MORPHINE SULFATE 4 MG/ML SYRINGE IVP STA (00:36)
[2017-10-03 00:58] VITALS: BP 111/74; PULSE 86; RESP 15; TEMP 97.2
== END 2017-10-03 01:35 | disposition home or self-care (01) ==
LOC: EC 19:53
DX: K86.1 Other chronic pancreatitis (principal); E78.5 Hyperlipidemia, unspecified; N42.9 Disorder of prostate, unspecified; F32.9 Major depressive disorder, single episode, unspecified; F41.9 Anxiety disorder, unspecified; F17.200 Nicotine dependence, unspecified, uncomplicated; Z79.51 Long term (current) use of inhaled steroids; Z79.899 Other long term (current) drug therapy; Z90.49 Acquired absence of other specified parts of digestive tract
CPT/HCPCS: 36415; 93005; 80053; 82150; 82550; 82553; 83690; 84484; 85025; 85610; 85730; 80320; 71046; 74018; 99284; 96374; 96375 ×2; 96376; J2270 ×2; J2405; C9113

== ENCOUNTER 2017-10-03 10:05 | Inpatient (IN) | payer MEDICARE, OTHER ==
[2017-10-03] MEDS ORDERED: PANTOPRAZOLE 40 MG/10 ML VIAL IVP STA (10:23)
[2017-10-03] MEDS ORDERED: KETOROLAC 30 MG/ML 1 ML VIAL IVP STA (10:23)
[2017-10-03] MEDS ORDERED: ONDANSETRON 4 MG/2 ML VIAL IVP STA (10:23)
[2017-10-03] MEDS ORDERED: SODIUM CHLORIDE 0.9% 1,000 ML IV STA (10:23)
[2017-10-03] MEDS ORDERED: ACETAMINOPHEN IV (For NPO) 1,000 MG in EMPTY BAG 1 BAG IVPB STA (10:24)
--- NOTE | 2017-10-03 10:25 | ED ---
General Adult HPI - General Chief complaint: Abdominal Pain Stated complaint: Chest pain Time Seen by Provider: 10/03/17 10:13 Source: patient, RN notes reviewed, old records reviewed Mode of arrival: ambulatory Limitations: no limitations - History of Present Illness Initial comments: This is a 47-year-old male to the ER for evaluation today. Significant presenting for evaluation regarding epigastric abdominal pain severe abdominal pain. Chest pain. Patient has history of back otitis we'll this facility for similar. Patient does admit to being here last night for similar paindischarged home. States his penis and back is been worse. Denies drinking in the meantime - Related Data Home Medications Medication Instructions Recorded Confirmed Atorvastatin [Lipitor] 10 mg PO HS 09/27/15 10/03/17 Albuterol Inhaler [Ventolin Hfa 2 puff INHALATION RT-Q4H PRN 03/01/17 10/03/17 Inhaler] Budesonide/Formoterol Fumarate 1 puff INHALATION RT-BID 04/04/17 10/03/17 [Symbicort 80-4.5 Mcg Inhaler] traZODone HCL 50 mg PO HS 04/04/17 10/03/17 Gabapentin [Neurontin] 400 mg PO TID 07/18/17 10/03/17 Acetaminophen-Codeine 300-30mg 1 tab PO Q6HR PRN 09/10/17 10/03/17 [Tylenol w/codeine #3] DULoxetine HCL [Cymbalta] 30 mg PO DAILY 09/18/17 10/03/17 Magnesium Oxide [Mag-Ox] 200 mg PO DAILY 09/18/17 10/03/17 Tamsulosin HCl [Flomax] 0.4 mg PO DAILY 09/18/17 10/03/17 Previous Rx's Medication Instructions Recorded Folic Acid 1 mg PO DAILY #30 tablet 07/15/15 Omeprazole [PriLOSEC] 40 mg PO BID #60 capsule. 05/16/17 cloNIDine HCL [Catapres] 0.1 mg PO TID #30 tab 08/23/17 Diazepam [Valium] 10 mg PO TID tab 08/31/17 Nicotine 14Mg/24Hr Patch [Habitrol] 1 patch TRANSDERM DAILY #7 patch 08/31/17 Levofloxacin [Levaquin] 500 mg PO DAILY #7 tab 09/08/17 Ondansetron [Zofran ODT] 4 mg PO Q8HR PRN #10 tab 09/16/17 Allergies Allergy/AdvReac Type Severity Reaction Status Date / Time No Known Allergies Allergy Verified 10/03/17 10:18 Review of Systems ROS Statement: Those systems with pertinent positive or pertinent negative responses have been documented in the HPI. ROS Other: All systems not noted in ROS Statement are negative. Past Medical History Past Medical History: GERD/Reflux, Hyperlipidemia, Pneumonia, Prostate Disorder Additional Past Medical History / Comment(s): ETOH ABUSE, RECURRANT PANCREATITIS , ALCOHOLIC HEPATITIS, NEPHROLITHIASIS, hx of CHRONIC URINARY RETENTION DUE TO BACK PROBLEMS-SELF CATHS.UTI. CHRONIC LOW BACK PAIN. History of Any Multi-Drug Resistant Organisms: None Reported Past Surgical History: Back Surgery, Cholecystectomy, Orthopedic Surgery Additional Past Surgical History / Comment(s): Bronchoscopy, BACK surgeries with TITANIUM PLATES MILTON and CAGES, KIDNEY STONES removed per pt, SPINAL CORD STIMULATOR, ISMAEL KNEE ARTHROSCOPIES, PINKY FINGER RT HAND REATTATCHED Past Anesthesia/Blood Transfusion Reactions: No Reported Reaction Past Psychological History: Anxiety, Depression Smoking Status: Heavy tobacco smoker Past Alcohol Use History: None Reported Past Drug Use History: None Reported - Past Family History Father Family Medical History: Diabetes Mellitus Additional Family Medical History / Comment(s): Mother Family Medical History: Dementia, Hyperlipidemia, Hypertension Additional Family Medical History / Comment(s): Mother is living. General Exam Limitations: no limitations General appearance: alert, in no apparent distress Head exam: Present: atraumatic, normocephalic, normal inspection Eye exam: Present: normal appearance, PERRL, EOMI. Absent: scleral icterus, conjunctival injection, periorbital swelling ENT exam: Present: normal exam, mucous membranes moist Neck exam: Present: normal inspection. Absent: tenderness, meningismus, lymphadenopathy Respiratory exam: Present: normal lung sounds bilaterally. Absent: respiratory distress, wheezes, rales, rhonchi, stridor Cardiovascular Exam: Present: regular rate, normal rhythm, normal heart sounds. Absent: systolic murmur, diastolic murmur, rubs, gallop, clicks GI/Abdominal exam: Present: soft, tenderness (epigastric), normal bowel sounds. Absent: distended, guarding, rebound, rigid Extremities exam: Present: normal inspection, full ROM, normal capillary refill. Absent: tenderness, pedal edema, joint swelling, calf tenderness Back exam: Present: normal inspection Neurological exam: Present: alert, oriented X3, CN II-XII intact Psychiatric exam: Present: normal affect, normal mood Skin exam: Present: warm, dry, intact, normal color. Absent: rash Course Vital Signs 10/03/17 10/03/17 10:12 10:58 Temperature 97.9 F Pulse Rate 98 92 Respiratory 18 18 Rate Blood Pressure 108/69 113/73 O2 Sat by Pulse 98 96 Oximetry - Reevaluation(s) Reevaluation #1: 10/03/17 11:39 Medical records from ER visit last night and earlier discharged today is reviewed Reevaluation #2: 10/03/17 11:39 Patient has improvement in symptoms, change EKG Findings - EKG Comments: EKG Findings:: EKG shows normal sinus rhythm rate of 95, NE 152, QRS 82, QTc 457 Medical Decision Making - Medical Decision Making 43 male the ER today with intractable nausea vomiting positive pancreatitis, patient has up trending lipase, patient will be admitted for IV hydration and symptom control - Lab Data Result diagrams: 10/03/17 10:46 10/03/17 10:46 Lab Results 10/03/17 10/03/17 Range/Units 10:46 10:46 WBC 10.8 H (3.8-10.6) k/uL RBC 4.37 (4.30-5.90) m/uL Hgb 13.4 (13.0-17.5) gm/dL Hct 40.1 (39.0-53.0) % MCV 91.9 (80.0-100.0) fL MCH 30.6 (25.0-35.0) pg MCHC 33.3 (31.0-37.0) g/dL RDW 14.1 (11.5-15.5) % Plt Count 308 (150-450) k/uL Neutrophils % 86 % Lymphocytes % 7 % Monocytes % 5 % Eosinophils % 1 % Basophils % 0 % Neutrophils # 9.3 H (1.3-7.7) k/uL Lymphocytes # 0.8 L (1.0-4.8) k/uL Monocytes # 0.6 (0-1.0) k/uL Eosinophils # 0.1 (0-0.7) k/uL Basophils # 0.0 (0-0.2) k/uL Sodium 140 (137-145) mmol/L Potassium 4.3 (3.5-5.1) mmol/L Chloride 102 (98-107) mmol/L Carbon Dioxide 27 (22-30) mmol/L Anion Gap 11 mmol/L BUN 13 (9-20) mg/dL Creatinine 0.64 L (0.66-1.25) mg/dL Est GFR (CKD-EPI)AfAm >90 (>60 ml/min/1.73 sqM) Est GFR (CKD-EPI)NonAf >90 (>60 ml/min/1.73 sqM) Glucose 116 H (74-99) mg/dL Calcium 9.1 (8.4-10.2) mg/dL Total Bilirubin 0.6 (0.2-1.3) mg/dL AST 129 H (17-59) U/L ALT 77 H (21-72) U/L Alkaline Phosphatase 269 H (38-126) U/L Total Protein 6.2 L (6.3-8.2) g/dL Albumin 3.3 L (3.5-5.0) g/dL Amylase 126 H (30-110) U/L Lipase 1467 H (23-300) U/L Disposition Clinical Impression: Pancreatitis, Acute on chronic pancreatitis, Acute pancreatitis Disposition: ADMITTED IP TO THIS [facility] Condition: Good Referrals: Carrillo Leo Jr, DO [Primary Care Provider] - 1-2 days
[2017-10-03 11:10] LABS: Basophils % (A) 0 %; Eosinophils # (A) 0.1 k/uL (0-0.7); Eosinophils % (A) 1 %; HCT 40.1 % (39.0-53.0); HGB 13.4 gm/dL (13.0-17.5); Lymphocytes # (A) 0.8 k/uL (1.0-4.8); Lymphocytes % (A) 7 %; MCH 30.6 pg (25.0-35.0); MCHC 33.3 g/dL (31.0-37.0); MCV 91.9 fL (80.0-100.0); Mean Platelet Volume 7.8; Monocytes # (A) 0.6 k/uL (0-1.0); Monocytes % (A) 5 %; Neutrophils # (A) 9.3 k/uL (1.3-7.7); Neutrophils % (A) 86 %; Platelet Count 308 k/uL (150-450); RBC 4.37 m/uL (4.30-5.90); RDW 14.1 % (11.5-15.5); WBC 10.8 k/uL (3.8-10.6)
[2017-10-03 11:17] LABS: ALT 77 U/L (21-72); AST 129 U/L (17-59); Albumin 3.3 g/dL (3.5-5.0); Alkaline Phosphatase 269 U/L (38-126); Amylase 126 U/L (30-110); Anion Gap 11 mmol/L; Blood Urea Nitrogen 13 mg/dL (9-20); Calcium 9.1 mg/dL (8.4-10.2); Carbon Dioxide 27 mmol/L (22-30); Chloride 102 mmol/L (98-107); Glucose 116 mg/dL (74-99); Lipase 1467 U/L (23-300); Potassium 4.3 mmol/L (3.5-5.1); Sodium 140 mmol/L (137-145); Total Bilirubin 0.6 mg/dL (0.2-1.3); Total Protein 6.2 g/dL (6.3-8.2)
[2017-10-03] MEDS ORDERED: SODIUM CHLORIDE 0.9% 1,000 ML IV ONE (11:37)
[2017-10-03] MEDS ORDERED: MORPHINE SULFATE 4 MG/ML SYRINGE IVP STA (11:37)
[2017-10-03 11:53] VITALS: RESP 16
[2017-10-03 14:35] VITALS: BMI 23.8
[2017-10-03] MEDS: MORPHINE SULFATE 4 MG/ML SYRINGE IVP PRN ×2 (17:41→23:38)
[2017-10-03] MEDS: PANTOPRAZOLE 40 MG/10 ML VIAL IVP SCH (20:48)
[2017-10-04] MEDS: ONDANSETRON 4 MG/2 ML VIAL IVP PRN (00:34)
[2017-10-04] MEDS: MORPHINE SULFATE 4 MG/ML SYRINGE IVP PRN ×3 (05:58→17:54)
[2017-10-04] MEDS: PANTOPRAZOLE 40 MG/10 ML VIAL IVP SCH ×2 (07:39→20:16)
--- NOTE | 2017-10-04 10:36 | P.HPIM ---
History of Present Illness H&P Date: 10/04/17 Chief Complaint: Pancreatitis This is another readmission for Nestor for acute on chronic pancreatitis. He reports 2 day history of increasing midepigastric abdominal pain and nausea. While he denies drinking in the past 2 months, this is doubtful, based on my last conversation with him and significant urging for rehabilitation on multiple days during his last admission. He ultimately refused. Currently today is complaining of ongoing pain. Some nausea, but no vomiting. He informs me he was supposed to undergo a procedure with gastroenterology in the next 1-2 days. Also, they were unable to do an MRI, due to the hardware in his back. Review of Systems All systems: negative Past Medical History Past Medical History: GERD/Reflux, GI Bleed, Hyperlipidemia, Liver Disease, Pneumonia, Prostate Disorder Additional Past Medical History / Comment(s): ETOH ABUSE-PT STATES HE HAS HAD NO ALCOHOL PAST 2 MONTHS, RECURRANT PANCREATITIS, ALCOHOLIC HEPATITIS, NEUROPATHY BILATERAL FEET SINCE BACK SURGERY, NEPHROLITHIASIS, hx of CHRONIC URINARY RETENTION DUE TO BACK PROBLEMS-SELF CATHS.UTI. CHRONIC LOW BACK PAIN ( HAS STIMULATOR THAT PT STATES DOES NOT WORK. HEMATEMESIS, CHRONIC LOOSE STOOLS. History of Any Multi-Drug Resistant Organisms: None Reported Past Surgical History: Back Surgery, Cholecystectomy, Orthopedic Surgery Additional Past Surgical History / Comment(s): Bronchoscopy, BACK surgeries with TITANIUM PLATES MILTON and CAGES, KIDNEY STONES removed per pt, SPINAL CORD STIMULATOR, ISMAEL KNEE ARTHROSCOPIES, PINKY FINGER RT HAND REATTATCHED Past Anesthesia/Blood Transfusion Reactions: No Reported Reaction Smoking Status: Current every day smoker - Past Family History Father Family Medical History: Diabetes Mellitus Additional Family Medical History / Comment(s): Mother Family Medical History: Dementia, Hyperlipidemia, Hypertension Additional Family Medical History / Comment(s): Mother is living. Medications and Allergies Home Medications Medication Instructions Recorded Confirmed Type Folic Acid 1 mg PO DAILY #30 tablet 07/15/15 10/03/17 Rx Atorvastatin [Lipitor] 10 mg PO HS 09/27/15 10/03/17 History Albuterol Inhaler [Ventolin Hfa 2 puff INHALATION RT-Q4H PRN 03/01/17 10/03/17 History Inhaler] Budesonide/Formoterol Fumarate 1 puff INHALATION RT-BID 04/04/17 10/03/17 History [Symbicort 80-4.5 Mcg Inhaler] traZODone HCL 50 mg PO HS 04/04/17 10/03/17 History Omeprazole [PriLOSEC] 40 mg PO BID #60 capsule. 05/16/17 10/03/17 Rx Gabapentin [Neurontin] 400 mg PO TID 07/18/17 10/03/17 History cloNIDine HCL [Catapres] 0.1 mg PO TID #30 tab 08/23/17 10/03/17 Rx Diazepam [Valium] 10 mg PO TID tab 08/31/17 10/03/17 Rx Nicotine 14Mg/24Hr Patch [Habitrol] 1 patch TRANSDERM DAILY #7 patch 08/31/17 Rx Levofloxacin [Levaquin] 500 mg PO DAILY #7 tab 09/08/17 10/03/17 Rx Acetaminophen-Codeine 300-30mg 1 tab PO Q6HR PRN 09/10/17 10/03/17 History [Tylenol w/codeine #3] Ondansetron [Zofran ODT] 4 mg PO Q8HR PRN #10 tab 09/16/17 10/03/17 Rx DULoxetine HCL [Cymbalta] 30 mg PO DAILY 09/18/17 10/03/17 History Magnesium Oxide [Mag-Ox] 200 mg PO DAILY 09/18/17 10/03/17 History Tamsulosin HCl [Flomax] 0.4 mg PO DAILY 09/18/17 10/03/17 History Allergies Allergy/AdvReac Type Severity Reaction Status Date / Time No Known Allergies Allergy Verified 10/03/17 10:18 Physical Exam Vitals: Vital Signs Temp Pulse Pulse Resp BP BP Pulse Ox 10/04/17 08:00 89 16 10/04/17 07:42 98.2 F 89 16 109/65 96 10/03/17 21:32 97.6 F 94 16 133/80 97 10/03/17 12:38 97.9 F 83 16 101/64 98 10/03/17 11:53 97.6 F 85 16 105/74 97 10/03/17 10:58 92 18 113/73 96 Intake and Output 10/03/17 10/04/17 10/04/17 22:59 06:59 14:59 Other: Voiding Method Toilet Toilet # Voids 2 1 GENERAL: Fatigued and in minimal if any acute distress. HEAD: Atraumatic, normocephalic. EYES: Pupils equal round and reactive to light, extraocular movements intact, sclera anicteric, conjunctiva are normal. ENT:nares patent, oropharynx clear without exudates. Moist mucous membranes. NECK: Normal range of motion, supple without lymphadenopathy or JVD, no thyromegaly LUNGS: Breath sounds clear to auscultation bilaterally and equal. No wheezes rales or rhonchi. HEART: Regular rate and rhythm without murmurs, rubs or gallops.S1S2 Normal ABDOMEN: Soft, normoactive bowel sounds. No guarding, no rebound. No masses appreciated. Midepigastric pain to palpation. EXTREMITIES: Normal range of motion, no pitting or edema. No clubbing or cyanosis. NEUROLOGICAL: Cranial nerves II through XII grossly intact. Normal speech, normal gait. PSYCH: Normal mood, normal affect. SKIN: Warm, Dry, normal turgor, no rashes or lesions noted. Her multiple tattoos noted throughout his body. Results CBC & Chem 7: 10/03/17 10:46 10/03/17 10:46 Labs: Abnormal Lab Results - Last 24 Hours (Table) 10/03/17 10/03/17 Range/Units 10:46 10:46 WBC 10.8 H (3.8-10.6) k/uL Neutrophils # 9.3 H (1.3-7.7) k/uL Lymphocytes # 0.8 L (1.0-4.8) k/uL Creatinine 0.64 L (0.66-1.25) mg/dL Glucose 116 H (74-99) mg/dL AST 129 H (17-59) U/L ALT 77 H (21-72) U/L Alkaline Phosphatase 269 H (38-126) U/L Total Protein 6.2 L (6.3-8.2) g/dL Albumin 3.3 L (3.5-5.0) g/dL Amylase 126 H (30-110) U/L Lipase 1467 H (23-300) U/L Thrombosis Risk Factor Assmnt - DVT/VTE Prophylaxis DVT/VTE Prophylaxis: Mechanical Prophylaxis ordered - Choose All That Apply Any of the Below Risk Factors Present?: Yes Each Factor Represents 1 point: Age 41-60 years Other Risk Factors: No Other congenital or acquired thrombophilia - If yes, enter type in comment: No Thrombosis Risk Factor Assessment Total Risk Factor Score: 1 Thrombosis Risk Factor Assessment Level: Low Risk Assessment and Plan (1) Acute on chronic pancreatitis Current Visit: Yes Status: Acute Code(s): K85.90 - ACUTE PANCREATITIS WITHOUT NECROSIS OR INFECTION, UNSP; K86.1 - OTHER CHRONIC PANCREATITIS SNOMED Code(s): 298815714 (2) Abdominal pain Current Visit: No Status: Acute Code(s): R10.9 - UNSPECIFIED ABDOMINAL PAIN SNOMED Code(s): 58757981 (3) Alcohol abuse Current Visit: No Status: Acute Code(s): F10.10 - ALCOHOL ABUSE, UNCOMPLICATED SNOMED Code(s): 41553068 (4) At risk for readmission to hospital Current Visit: No Status: Acute Code(s): Z91.89 - OTH PERSONAL RISK FACTORS , NOT ELSEWHERE CLASSIFIED SNOMED Code(s): 8037957684980 Plan: I will keep him nothing by mouth. Continue the morphine pain medications. CEWA protocol for him. UDS for evaluation. Consult GI. Repeat labs in a.m. Reevaluate him in the next 24 hours.
[2017-10-04 10:52] LABS: Amylase 111 U/L (30-110); Anion Gap 8 mmol/L; Blood Urea Nitrogen 10 mg/dL (9-20); Calcium 7.8 mg/dL (8.4-10.2); Carbon Dioxide 23 mmol/L (22-30); Chloride 106 mmol/L (98-107); Glucose 100 mg/dL (74-99); Lipase 822 U/L (23-300); Potassium 4.1 mmol/L (3.5-5.1); Sodium 137 mmol/L (137-145)
[2017-10-05] MEDS: MORPHINE SULFATE 4 MG/ML SYRINGE IVP PRN ×2 (01:11→07:39)
[2017-10-05 01:20] LABS: Urine Alcohol Negative (Negative); Urine Barbiturate Negative (Negative); Urine Cocaine Negative (Negative); Urine Methadone Negative (Negative); Urine Opiates Positive (Negative); Urine Phencyclidine Negative (Negative)
[2017-10-05] MEDS: ONDANSETRON 4 MG/2 ML VIAL IVP PRN (08:17)
[2017-10-05] MEDS: PANTOPRAZOLE 40 MG/10 ML VIAL IVP SCH (08:18)
[2017-10-05 08:28] VITALS: BP 140/85; PULSE 80; TEMP 98.1
--- NOTE | 2017-10-05 08:30 | US ---
EXAMINATION TYPE: US abdomen limited DATE OF EXAM: 10/05/2017 COMPARISON: NONE CLINICAL HISTORY: Pancreatitis, r/o pseudocysts. Epigastric pain, nausea and vomiting for 2 days. Cho lecystectomy. History of pancreatitis and pancreatic cyst EXAM MEASUREMENTS: Liver Length: 14.4 cm Gallbladder Wall: Surgically absent CBD: 0.5 cm Right Kidney: 11.4 x 5.4 x 5.1 cm Technical limitations due to overlying bowel content Pancreas: Obscured by bowel gas Liver: only visualized intercostally Gallbladder: Surgically absent Evidence for sonographic Deluca's sign: no CBD: appears wnl as visualized Right Kidney: visualized portions show no evidence of hydronephrosis Small amount of free fluid adjacent to liver IMPRESSION: 1. There is a tiny amount of free fluid adjacent to the liver. 2. Postcholecystectomy changes.
[2017-10-05 08:50] LABS: ALT 44 U/L (21-72); AST 23 U/L (17-59); Albumin 2.3 g/dL (3.5-5.0); Alkaline Phosphatase 166 U/L (38-126); Amylase 51 U/L (30-110); Anion Gap 9 mmol/L; Blood Urea Nitrogen 7 mg/dL (9-20); Calcium 8.1 mg/dL (8.4-10.2); Carbon Dioxide 20 mmol/L (22-30); Chloride 107 mmol/L (98-107); Glucose 81 mg/dL (74-99); Lipase 409 U/L (23-300); Sodium 136 mmol/L (137-145); Total Bilirubin 0.5 mg/dL (0.2-1.3); Total Protein 4.7 g/dL (6.3-8.2)
--- NOTE | 2017-10-05 09:06 | P.CONS ---
History of Present Illness - Reason for Consult Consult date: 10/05/17 Pancreatitis Requesting physician: Kelvin Trejo - History of Present Illness 47-year-old male with a history of alcohol abuse chronic relapsing alcohol pancreatitis admitted with abdominal pain pancreatitis. Last alcoholic drink 2 months ago. Total bilirubin 0.5-0.6. AST 129 improved to 23. ALT 77 improved 44. Alk phos is 269 improved 166. Lipase 1467 presently 409. Amylase 126 presently 51. Urine alcohol negative. Ultrasound abdomen tiny amount of free fluid adjacent to the liver with post cholecystectomy changes. Pancreas obscured by bowel gas. Review of Systems Constitutional: Denies fever, chills, sweats, weight gain, or loss. HEENT: Negative for migraines, blurred vision or loss, earaches, drainage, tinnitus, oral mucosal lesions, dysphagia, or odynophagia. Cardiac: Admitted with chest pain, denies arrhythmias, or palpitation. Respiratory: Negative for shortness of breath, hemoptysis, cough, or sputum production. Gastrointestinal: See HPI for pertinent findings. Genitourinary: Negative for hematuria, urgency, frequency, polyuria, dysuria, or penile discharge. Musculoskeletal: Negative for muscle aches, swelling, arthritis, and arthralgias. Neurologic: Negative for stroke or TIA. Endocrine: Negative for thyroid problems. Skin: Negative for rash or itching. Psychiatric: Negative history for depression and anxietyale Past Medical History Past Medical History: GERD/Reflux, GI Bleed, Hyperlipidemia, Liver Disease, Pneumonia, Prostate Disorder Additional Past Medical History / Comment(s): ETOH ABUSE-PT STATES HE HAS HAD NO ALCOHOL PAST 2 MONTHS, RECURRANT PANCREATITIS, ALCOHOLIC HEPATITIS, NEUROPATHY BILATERAL FEET SINCE BACK SURGERY, NEPHROLITHIASIS, hx of CHRONIC URINARY RETENTION DUE TO BACK PROBLEMS-SELF CATHS.UTI. CHRONIC LOW BACK PAIN ( HAS STIMULATOR THAT PT STATES DOES NOT WORK. HEMATEMESIS, CHRONIC LOOSE STOOLS. History of Any Multi-Drug Resistant Organisms: None Reported Past Surgical History: Back Surgery, Cholecystectomy, Orthopedic Surgery Additional Past Surgical History / Comment(s): Bronchoscopy, BACK surgeries with TITANIUM PLATES MILTON and CAGES, KIDNEY STONES removed per pt, SPINAL CORD STIMULATOR, ISMAEL KNEE ARTHROSCOPIES, PINKY FINGER RT HAND REATTATCHED Past Anesthesia/Blood Transfusion Reactions: No Reported Reaction Smoking Status: Current every day smoker - Past Family History Father Family Medical History: Diabetes Mellitus Additional Family Medical History / Comment(s): Mother Family Medical History: Dementia, Hyperlipidemia, Hypertension Additional Family Medical History / Comment(s): Mother is living. Medications and Allergies Home Medications Medication Instructions Recorded Confirmed Type Folic Acid 1 mg PO DAILY #30 tablet 07/15/15 10/03/17 Rx Atorvastatin [Lipitor] 10 mg PO HS 09/27/15 10/03/17 History Albuterol Inhaler [Ventolin Hfa 2 puff INHALATION RT-Q4H PRN 03/01/17 10/03/17 History Inhaler] Budesonide/Formoterol Fumarate 1 puff INHALATION RT-BID 04/04/17 10/03/17 History [Symbicort 80-4.5 Mcg Inhaler] traZODone HCL 50 mg PO HS 04/04/17 10/03/17 History Omeprazole [PriLOSEC] 40 mg PO BID #60 capsule. 05/16/17 10/03/17 Rx Gabapentin [Neurontin] 400 mg PO TID 07/18/17 10/03/17 History cloNIDine HCL [Catapres] 0.1 mg PO TID #30 tab 08/23/17 10/03/17 Rx Diazepam [Valium] 10 mg PO TID tab 08/31/17 10/03/17 Rx Nicotine 14Mg/24Hr Patch [Habitrol] 1 patch TRANSDERM DAILY #7 patch 08/31/17 Rx Levofloxacin [Levaquin] 500 mg PO DAILY #7 tab 09/08/17 10/03/17 Rx Acetaminophen-Codeine 300-30mg 1 tab PO Q6HR PRN 09/10/17 10/03/17 History [Tylenol w/codeine #3] Ondansetron [Zofran ODT] 4 mg PO Q8HR PRN #10 tab 09/16/17 10/03/17 Rx DULoxetine HCL [Cymbalta] 30 mg PO DAILY 09/18/17 10/03/17 History Magnesium Oxide [Mag-Ox] 200 mg PO DAILY 09/18/17 10/03/17 History Tamsulosin HCl [Flomax] 0.4 mg PO DAILY 09/18/17 10/03/17 History Allergies Allergy/AdvReac Type Severity Reaction Status Date / Time No Known Allergies Allergy Verified 10/03/17 10:18 Physical Exam Vitals: Vital Signs Temp Pulse Resp BP Pulse Ox 10/04/17 21:27 97.6 F 82 16 108/66 97 10/04/17 16:00 83 16 10/04/17 14:51 98.0 F 83 16 104/63 98 10/04/17 08:00 89 16 10/04/17 07:42 98.2 F 89 16 109/65 96 Intake and Output 10/04/17 10/05/17 10/05/17 22:59 06:59 14:59 Other: Voiding Method Toilet Toilet # Voids 1 1 Weight 67.132 kg General appearance: The patient is alert, oriented, in no acute distress. HET: Head is normocephalic and atraumatic. Pupils are equal and reactive. Oropharynx is clear without lesions. Neck: Supple without lymphadenopathy. Trachea midline. Heart: S1 S2. Regular rate and rhythm. Lungs: No crackles or wheezes are heard. Abdomen: Soft, some mild midepigastric upper abdominal tenderness, nondistended with bowel sounds. No peritoneal signs. No palpable organomegaly or masses. Extremities: Normal skin color and turgor. No cyanosis, rash, ulceration, clubbing, or edema. Radial and pedal pulses are 2/4 bilaterally. Neurological: No focal deficits. Strength and sensation are grossly intact. Results CBC & Chem 7: 10/03/17 10:46 10/04/17 10:21 Labs: Abnormal Lab Results - Last 24 Hours (Table) 10/04/17 Range/Units 10:21 Creatinine 0.57 L (0.66-1.25) mg/dL Glucose 100 H (74-99) mg/dL Calcium 7.8 L (8.4-10.2) mg/dL Amylase 111 H (30-110) U/L Lipase 822 H (23-300) U/L US - abdomen: report reviewed (Dr. Martinez) Assessment and Plan (1) Pancreatitis Narrative/Plan: Acute on chronic relapsing pancreatitis Current Visit: Yes Status: Acute Code(s): K85.90 - ACUTE PANCREATITIS WITHOUT NECROSIS OR INFECTION, UNSP SNOMED Code(s): 09967062 (2) Alcohol abuse Current Visit: No Status: Acute Code(s): F10.10 - ALCOHOL ABUSE, UNCOMPLICATED SNOMED Code(s): 10778713 Plan: 1. Pancreatic enzymes are improving. Will check CA-19-9. Continue supportive measures. CIWA protocol. Will advance to full liquid diet. Discharge per medicine. Return to office after discharge for reevaluation. Thank you for this kind referral and the opportunity to participate in the care of your patient. This consultation was discussed with Dr. Martinez. The impression and plan of care have been directed as dictated.
--- NOTE | 2017-10-05 12:10 | P.DS ---
Providers Date of admission: 10/03/17 11:38 Expected date of discharge: 10/05/17 Attending physician: Carrillo Leo Consults: 10/04/17 10:37 Consult Physician Routine Consulting Provider: Consuelo Kellogg Consult Reason/Comments: pain Do you want consulting provider notified?: Yes Primary care physician: Carrillo Leo - Discharge Diagnosis(es) (1) Acute on chronic pancreatitis Current Visit: Yes Status: Acute (2) Abdominal pain Current Visit: No Status: Acute (3) Alcohol abuse Current Visit: No Status: Acute (4) At risk for readmission to hospital Current Visit: No Status: Acute Hospital Course: This is another readmission for Nestor for acute on chronic pancreatitis. He reports 2 day history of increasing midepigastric abdominal pain and nausea. While he denies drinking in the past 2 months, this is doubtful, based on my last conversation with him and significant urging for rehabilitation on multiple days during his last admission. He ultimately refused. Currently today is complaining of ongoing pain. Some nausea, but no vomiting. He informs me he was supposed to undergo a procedure with gastroenterology in the next 1-2 days. Also, they were unable to do an MRI, due to the hardware in his back. He was seen by GI. They had no significant recommendations. He was nothing by mouth, then advance to clear liquids, then finally tolerating regular diet. His pain was controlled by the last day. He was requesting discharge. He is a great risk for increased admission in the hospital in less than 30 days. He is been counseled length regarding pancreatitis and alcoholism. His last admission, he refused any assistance or help. Discharge diagnosis Acute on chronic pancreatitis, present on admission, improved Uncontrolled abdominal pain, generalized, present on admission. Alcohol abuse, questionable recent sobriety? Noncompliance Patient Condition at Discharge: Good Plan - Discharge Summary Discharge Rx Participant: No New Discharge Prescriptions: Continue Folic Acid 1 mg PO DAILY #30 tablet Atorvastatin [Lipitor] 10 mg PO HS Albuterol Inhaler [Ventolin Hfa Inhaler] 2 puff INHALATION RT-Q4H PRN PRN Reason: Shortness Of Breath traZODone HCL 50 mg PO HS Budesonide/Formoterol Fumarate [Symbicort 80-4.5 Mcg Inhaler] 1 puff INHALATION RT-BID Omeprazole [PriLOSEC] 40 mg PO BID #60 capsule. Gabapentin [Neurontin] 400 mg PO TID cloNIDine HCL [Catapres] 0.1 mg PO TID #30 tab Diazepam [Valium] 10 mg PO TID tab Nicotine 14Mg/24Hr Patch [Habitrol] 1 patch TRANSDERM DAILY #7 patch Levofloxacin [Levaquin] 500 mg PO DAILY #7 tab Acetaminophen-Codeine 300-30mg [Tylenol w/codeine #3] 1 tab PO Q6HR PRN PRN Reason: Pain Ondansetron [Zofran ODT] 4 mg PO Q8HR PRN #10 tab PRN Reason: Nausea DULoxetine HCL [Cymbalta] 30 mg PO DAILY Magnesium Oxide [Mag-Ox] 200 mg PO DAILY Tamsulosin HCl [Flomax] 0.4 mg PO DAILY Discharge Medication List Folic Acid 1 mg PO DAILY #30 tablet 07/15/15 [Rx] Atorvastatin [Lipitor] 10 mg PO HS 09/27/15 [History] Albuterol Inhaler [Ventolin Hfa Inhaler] 2 puff INHALATION RT-Q4H PRN 03/01/17 [ History] Budesonide/Formoterol Fumarate [Symbicort 80-4.5 Mcg Inhaler] 1 puff INHALATION RT-BID 04/04/17 [History] traZODone HCL 50 mg PO HS 04/04/17 [History] Omeprazole [PriLOSEC] 40 mg PO BID #60 capsule. 05/16/17 [Rx] Gabapentin [Neurontin] 400 mg PO TID 07/18/17 [History] cloNIDine HCL [Catapres] 0.1 mg PO TID #30 tab 08/23/17 [Rx] Diazepam [Valium] 10 mg PO TID tab 08/31/17 [Rx] Nicotine 14Mg/24Hr Patch [Habitrol] 1 patch TRANSDERM DAILY #7 patch 08/31/17 [ Rx] Levofloxacin [Levaquin] 500 mg PO DAILY #7 tab 09/08/17 [Rx] Acetaminophen-Codeine 300-30mg [Tylenol w/codeine #3] 1 tab PO Q6HR PRN [History] Ondansetron [Zofran ODT] 4 mg PO Q8HR PRN #10 tab 09/16/17 [Rx] DULoxetine HCL [Cymbalta] 30 mg PO DAILY 05/01/18 [History] Magnesium Oxide [Mag-Ox] 200 mg PO DAILY 09/18/17 [History] Tamsulosin HCl [Flomax] 0.4 mg PO DAILY 09/18/17 [History] Follow up Appointment(s)/Referral(s): Phillip Martinez MD [STAFF PHYSICIAN] - 11/05/17 2:15 pm Carrillo Leo Jr, DO [Primary Care Provider] - 1-2 days Patient Instructions/Handouts: Pancreatitis (DC) Discharge Disposition: HOME SELF-CARE
== END 2017-10-05 13:10 | disposition home or self-care (01) | DRG 440 ==
LOC: EC 10:05 → 5MS5E 11:38
PROVIDERS: ADMIT Family Medicine; ATTEND Family Medicine
DX: K85.90 Acute pancreatitis without necrosis or infection, unspecified (principal); E78.5 Hyperlipidemia, unspecified; F10.20 Alcohol dependence, uncomplicated; Z71.41 Alcohol abuse counseling and surveillance of alcoholic; F17.200 Nicotine dependence, unspecified, uncomplicated; K21.9 Gastro-esophageal reflux disease without esophagitis; K86.1 Other chronic pancreatitis; Z79.899 Other long term (current) drug therapy; Z82.49 Family history of ischemic heart disease and other diseases of the circulatory system; Z83.3 Family history of diabetes mellitus; Z87.442 Personal history of urinary calculi; Z91.19 Patient's noncompliance with other medical treatment and regimen; Z79.52 Long term (current) use of systemic steroids; Z79.891 Long term (current) use of opiate analgesic; R33.9 Retention of urine, unspecified; M54.5 Low back pain; G89.29 Other chronic pain; Z90.49 Acquired absence of other specified parts of digestive tract; Z98.1 Arthrodesis status; G62.9 Polyneuropathy, unspecified
CPT/HCPCS: 36415; 71046; 74018; 76705; 80048; 80053; 80306; 80320; 82150; 82550; 82553; 83690; 84484; 85025; 85610; 85730; 86301; 93005; 96361; 96374; 96375; 96376; 99284; 99285

== ENCOUNTER 2017-10-05 21:19 | Emergency (ER) | payer MEDICARE, OTHER ==
[2017-10-05 21:33] VITALS: RESP 18; TEMP 97.7
[2017-10-05] MEDS ORDERED: SODIUM CHLORIDE 0.9% 1,000 ML IV STA (21:58)
[2017-10-05] MEDS ORDERED: ONDANSETRON 4 MG/2 ML VIAL IVP STA (21:58)
--- NOTE | 2017-10-05 22:00 | ED ---
General Adult HPI - General Chief complaint: Abdominal Pain Stated complaint: Abd pain Time Seen by Provider: 10/05/17 21:30 Source: patient, RN notes reviewed Mode of arrival: ambulatory Limitations: no limitations - History of Present Illness Initial comments: This is a 47-year-old male who presents emergency Department with a past medical history for drinking and pancreatitis. Patient was admitted 2 days ago for pancreatitis and he was discharged today at 1:00. Patient states when he got home the pain was coming back and he was nauseated and vomited so decided come back to the emergency department. Patient denies any fever chills. Patient denies chest pain difficult breathing shortness of breath. Patient denies any diarrhea. Patient denies headache patient denies numbness weakness. Patient is asking for pain medications multiple times throughout the interview. - Related Data Home Medications Medication Instructions Recorded Confirmed Atorvastatin [Lipitor] 10 mg PO HS 09/27/15 10/05/17 Albuterol Inhaler [Ventolin Hfa 2 puff INHALATION RT-Q4H PRN 03/01/17 10/05/17 Inhaler] Budesonide/Formoterol Fumarate 1 puff INHALATION RT-BID 04/04/17 10/05/17 [Symbicort 80-4.5 Mcg Inhaler] traZODone HCL 50 mg PO HS 04/04/17 10/05/17 Gabapentin [Neurontin] 400 mg PO TID 07/18/17 10/05/17 Acetaminophen-Codeine 300-30mg 1 tab PO Q6HR PRN 09/10/17 10/05/17 [Tylenol w/codeine #3] DULoxetine HCL [Cymbalta] 30 mg PO DAILY 09/18/17 10/05/17 Magnesium Oxide [Mag-Ox] 200 mg PO DAILY 09/18/17 10/05/17 Tamsulosin HCl [Flomax] 0.4 mg PO DAILY 09/18/17 10/05/17 Previous Rx's Medication Instructions Recorded Folic Acid 1 mg PO DAILY #30 tablet 07/15/15 Omeprazole [PriLOSEC] 40 mg PO BID #60 capsule. 05/16/17 cloNIDine HCL [Catapres] 0.1 mg PO TID #30 tab 08/23/17 Diazepam [Valium] 10 mg PO TID tab 08/31/17 Nicotine 14Mg/24Hr Patch [Habitrol] 1 patch TRANSDERM DAILY #7 patch 08/31/17 Ondansetron [Zofran ODT] 4 mg PO Q8HR PRN #10 tab 09/16/17 Allergies Allergy/AdvReac Type Severity Reaction Status Date / Time No Known Allergies Allergy Verified 10/05/17 21:42 Review of Systems ROS Statement: Those systems with pertinent positive or pertinent negative responses have been documented in the HPI. ROS Other: All systems not noted in ROS Statement are negative. Past Medical History Past Medical History: GERD/Reflux, GI Bleed, Hyperlipidemia, Liver Disease, Pneumonia, Prostate Disorder Additional Past Medical History / Comment(s): ETOH ABUSE-PT STATES HE HAS HAD NO ALCOHOL PAST 2 MONTHS, RECURRANT PANCREATITIS, ALCOHOLIC HEPATITIS, NEUROPATHY BILATERAL FEET SINCE BACK SURGERY, NEPHROLITHIASIS, hx of CHRONIC URINARY RETENTION DUE TO BACK PROBLEMS-SELF CATHS.UTI. CHRONIC LOW BACK PAIN ( HAS STIMULATOR THAT PT STATES DOES NOT WORK. HEMATEMESIS, CHRONIC LOOSE STOOLS. History of Any Multi-Drug Resistant Organisms: None Reported Past Surgical History: Back Surgery, Cholecystectomy, Orthopedic Surgery Additional Past Surgical History / Comment(s): Bronchoscopy, BACK surgeries with TITANIUM PLATES MILTON and CAGES, KIDNEY STONES removed per pt, SPINAL CORD STIMULATOR, ISMAEL KNEE ARTHROSCOPIES, PINKY FINGER RT HAND REATTATCHED Past Anesthesia/Blood Transfusion Reactions: No Reported Reaction Past Psychological History: Anxiety, Depression Smoking Status: Current every day smoker - Past Family History Father Family Medical History: Diabetes Mellitus Additional Family Medical History / Comment(s): Mother Family Medical History: Dementia, Hyperlipidemia, Hypertension Additional Family Medical History / Comment(s): Mother is living. General Exam - General Exam Comments Initial Comments: GENERAL: Patient is well-developed and well-nourished. Patient is nontoxic and well- hydrated and is in no acute distress. ENT: Neck is soft and supple. No significant lymphadenopathy is noted. Oropharynx is clear. Moist mucous membranes. Neck has full range of motion without eliciting any pain. EYES: The sclera were anicteric and conjunctiva were pink and moist. Extraocular movements were intact and pupils were equal round and reactive to light. Eyelids were unremarkable. PULMONARY: Unlabored respirations. Good breath sounds bilaterally. No audible rales rhonchi or wheezing was noted. CARDIOVASCULAR: There is a regular rate and rhythm without any murmurs gallops or rubs. ABDOMEN: Mild epigastric pain No palpable organomegaly was noted. There is no palpable pulsatile mass. SKIN: Skin is clear with no lesions or rashes and otherwise unremarkable. NEUROLOGIC: Patient is alert and oriented x3. Cranial nerves II through XII are grossly intact. Motor and sensory are also intact. Normal speech, volume and content. Symmetrical smile. MUSCULOSKELETAL: Normal extremities with adequate strength and full range of motion. No lower extremity swelling or edema. No calf tenderness. LYMPHATICS: No significant lymphadenopathy is noted PSYCHIATRIC: Normal psychiatric evaluation. Normal interpersonal interactions appears functionally intact in deals appropriately with others. No signs of depression. No signs of anxiety. Limitations: no limitations Course Vital Signs 10/05/17 10/05/17 21:30 22:19 Temperature 97.7 F Pulse Rate 84 75 Respiratory 18 18 Rate Blood Pressure 122/69 134/80 O2 Sat by Pulse 99 99 Oximetry Medical Decision Making - Medical Decision Making Patient was resting comfortably until I walked into the room and then he started asking for pain medication. Patient's amylase and lipase equal considerably improved since he was admitted 2 days ago. Patient has had no vomiting the emergency department. - Lab Data Result diagrams: 10/05/17 21:54 10/05/17 21:54 Lab Results 10/05/17 10/05/17 10/05/17 Range/Units 21:54 21:54 21:54 WBC 13.1 H (3.8-10.6) k/uL RBC 3.61 L (4.30-5.90) m/uL Hgb 11.0 L (13.0-17.5) gm/dL Hct 33.2 L (39.0-53.0) % MCV 92.2 (80.0-100.0) fL MCH 30.5 (25.0-35.0) pg MCHC 33.1 (31.0-37.0) g/dL RDW 14.2 (11.5-15.5) % Plt Count 246 (150-450) k/uL Neutrophils % 86 % Lymphocytes % 8 % Monocytes % 5 % Eosinophils % 1 % Basophils % 0 % Neutrophils # 11.2 H (1.3-7.7) k/uL Lymphocytes # 1.0 (1.0-4.8) k/uL Monocytes # 0.7 (0-1.0) k/uL Eosinophils # 0.1 (0-0.7) k/uL Basophils # 0.0 (0-0.2) k/uL Sodium 136 L (137-145) mmol/L Potassium 3.7 (3.5-5.1) mmol/L Chloride 104 (98-107) mmol/L Carbon Dioxide 21 L (22-30) mmol/L Anion Gap 11 mmol/L BUN 8 L (9-20) mg/dL Creatinine 0.50 L (0.66-1.25) mg/dL Est GFR (CKD-EPI)AfAm >90 (>60 ml/min/1.73 sqM) Est GFR (CKD-EPI)NonAf >90 (>60 ml/min/1.73 sqM) Glucose 111 H (74-99) mg/dL Plasma Lactic Acid Bnadar 1.0 (0.7-2.0) mmol/L Calcium 8.7 (8.4-10.2) mg/dL Total Bilirubin 0.4 (0.2-1.3) mg/dL AST 24 (17-59) U/L ALT 43 (21-72) U/L Alkaline Phosphatase 183 H (38-126) U/L Total Protein 5.6 L (6.3-8.2) g/dL Albumin 2.8 L (3.5-5.0) g/dL Amylase 200 H (30-110) U/L Lipase 162 (23-300) U/L Serum Alcohol <10 mg/dL Disposition Clinical Impression: Abdominal pain Disposition: HOME SELF-CARE Instructions: Abdominal Pain (ED) Is patient prescribed a controlled substance at d/c from ED?: No Referrals: Carrillo Leo Jr, [Primary Care Provider] - 1-2 days Time of Disposition: 22:39
[2017-10-05 22:09] LABS: Basophils % (A) 0 %; Eosinophils # (A) 0.1 k/uL (0-0.7); Eosinophils % (A) 1 %; HCT 33.2 % (39.0-53.0); Lymphocytes % (A) 8 %; MCH 30.5 pg (25.0-35.0); MCHC 33.1 g/dL (31.0-37.0); MCV 92.2 fL (80.0-100.0); Mean Platelet Volume 8.5; Monocytes # (A) 0.7 k/uL (0-1.0); Monocytes % (A) 5 %; Neutrophils # (A) 11.2 k/uL (1.3-7.7); Neutrophils % (A) 86 %; Platelet Count 246 k/uL (150-450); RBC 3.61 m/uL (4.30-5.90); RDW 14.2 % (11.5-15.5); WBC 13.1 k/uL (3.8-10.6)
[2017-10-05 22:19] VITALS: BP 134/80; PULSE 75
[2017-10-05 22:21] LABS: ALT 43 U/L (21-72); AST 24 U/L (17-59); Albumin 2.8 g/dL (3.5-5.0); Alcohol <10 mg/dL; Alkaline Phosphatase 183 U/L (38-126); Amylase 200 U/L (30-110); Blood Urea Nitrogen 8 mg/dL (9-20); Calcium 8.7 mg/dL (8.4-10.2); Carbon Dioxide 21 mmol/L (22-30); Glucose 111 mg/dL (74-99); Lipase 162 U/L (23-300); Potassium 3.7 mmol/L (3.5-5.1); Sodium 136 mmol/L (137-145); Total Bilirubin 0.4 mg/dL (0.2-1.3); Total Protein 5.6 g/dL (6.3-8.2)
--- NOTE | 2017-10-05 22:33 | XR ---
EXAMINATION TYPE: XR KUB DATE OF EXAM: 10/05/2017 COMPARISON: 10/02/2017 HISTORY: Abdominal pain TECHNIQUE: 2 views FINDINGS: There is no sign of intestinal obstruction or pneumoperitoneum. Fecal pattern is normal. Jo ng bases are clear. There are clips from cholecystectomy. There is lumbar spine posterior fusion surg hermila. There is a neurostimulator over the abdomen. There are no pathologic calcifications over the kid neys. IMPRESSION: Nonacute abdomen. No change compared to old exam.
[2017-10-05 22:34] LABS: Anion Gap 11 mmol/L; Chloride 104 mmol/L (98-107)
[2017-10-05] MEDS ORDERED: ONDANSETRON 4 MG ODT STARTER PACK 2 TAB BTL PO STA (22:40)
== END 2017-10-05 22:56 | disposition home or self-care (01) ==
LOC: EC 21:19
DX: R10.13 Epigastric pain (principal); R11.2 Nausea with vomiting, unspecified; K21.9 Gastro-esophageal reflux disease without esophagitis; E78.5 Hyperlipidemia, unspecified; N42.9 Disorder of prostate, unspecified; F32.9 Major depressive disorder, single episode, unspecified; F41.9 Anxiety disorder, unspecified; F17.200 Nicotine dependence, unspecified, uncomplicated; Z79.51 Long term (current) use of inhaled steroids; Z79.899 Other long term (current) drug therapy; Z90.49 Acquired absence of other specified parts of digestive tract
CPT/HCPCS: 36415; 80053; 82150; 83605; 83690; 85025; 80320; 74018; 99284; 96374; J2405; S0119

== ENCOUNTER 2017-10-10 01:40 | Emergency (ER) | payer MEDICARE, OTHER ==
[2017-10-10 01:46] VITALS: RESP 16; TEMP 98.2
[2017-10-10] MEDS ORDERED: ACETAMINOPHEN IV (For NPO) 1,000 MG in EMPTY BAG 1 BAG IVPB STA (01:51)
[2017-10-10] MEDS ORDERED: SODIUM CHLORIDE 0.9% 1,000 ML IV STA (01:51)
[2017-10-10] MEDS ORDERED: PANTOPRAZOLE 40 MG/10 ML VIAL IVP STA (01:51)
[2017-10-10] MEDS ORDERED: SODIUM CHLORIDE 0.9% 500 ML IV STA (01:51)
[2017-10-10] MEDS ORDERED: ONDANSETRON 4 MG/2 ML VIAL IVP STA (01:51)
[2017-10-10] MEDS ORDERED: KETOROLAC 30 MG/ML 1 ML VIAL IVP STA (01:52)
[2017-10-10 02:23] LABS: Basophils % (A) 0 %; Eosinophils # (A) 0.2 k/uL (0-0.7); Eosinophils % (A) 2 %; HCT 34.5 % (39.0-53.0); HGB 11.3 gm/dL (13.0-17.5); Lymphocytes % (A) 19 %; MCH 30.3 pg (25.0-35.0); MCHC 32.8 g/dL (31.0-37.0); MCV 92.5 fL (80.0-100.0); Mean Platelet Volume 7.5; Monocytes # (A) 0.6 k/uL (0-1.0); Monocytes % (A) 5 %; Neutrophils # (A) 7.9 k/uL (1.3-7.7); Neutrophils % (A) 73 %; Platelet Count 394 k/uL (150-450); RBC 3.73 m/uL (4.30-5.90); RDW 14.5 % (11.5-15.5); WBC 10.8 k/uL (3.8-10.6)
[2017-10-10 02:33] LABS: ALT 45 U/L (21-72); AST 110 U/L (17-59); Alkaline Phosphatase 192 U/L (38-126); Amylase 55 U/L (30-110); Anion Gap 10 mmol/L; Blood Urea Nitrogen 8 mg/dL (9-20); Calcium 8.9 mg/dL (8.4-10.2); Carbon Dioxide 25 mmol/L (22-30); Chloride 105 mmol/L (98-107); Glucose 101 mg/dL (74-99); Lipase 198 U/L (23-300); Potassium 4.3 mmol/L (3.5-5.1); Sodium 140 mmol/L (137-145); Total Bilirubin 0.2 mg/dL (0.2-1.3); Total Protein 5.8 g/dL (6.3-8.2)
--- NOTE | 2017-10-10 03:02 | ED ---
General Adult HPI - General Chief complaint: Abdominal Pain Stated complaint: abd and chest pain Time Seen by Provider: 10/10/17 02:02 Source: patient, RN notes reviewed, old records reviewed Mode of arrival: wheelchair Limitations: no limitations - History of Present Illness Initial comments: This is a 47-year-old male the ER for evaluation acute on chronic abdominal pain. History of panic otitis chronic pancreatitis multiple ER visits both normal last week and the last month in the last year. Patient states and denies any drinking. But states that he has severe bowel pain feels like his pinky terraces back no fevers no cough or congestion or shortness of breath - Related Data Home Medications Medication Instructions Recorded Confirmed Atorvastatin [Lipitor] 10 mg PO HS 09/27/15 10/05/17 Albuterol Inhaler [Ventolin Hfa 2 puff INHALATION RT-Q4H PRN 03/01/17 10/05/17 Inhaler] Budesonide/Formoterol Fumarate 1 puff INHALATION RT-BID 04/04/17 10/05/17 [Symbicort 80-4.5 Mcg Inhaler] traZODone HCL 50 mg PO HS 04/04/17 10/05/17 Gabapentin [Neurontin] 400 mg PO TID 07/18/17 10/05/17 Acetaminophen-Codeine 300-30mg 1 tab PO Q6HR PRN 09/10/17 10/05/17 [Tylenol w/codeine #3] DULoxetine HCL [Cymbalta] 30 mg PO DAILY 09/18/17 10/05/17 Magnesium Oxide [Mag-Ox] 200 mg PO DAILY 09/18/17 10/05/17 Tamsulosin HCl [Flomax] 0.4 mg PO DAILY 09/18/17 10/05/17 Previous Rx's Medication Instructions Recorded Folic Acid 1 mg PO DAILY #30 tablet 07/15/15 Omeprazole [PriLOSEC] 40 mg PO BID #60 capsule. 05/16/17 cloNIDine HCL [Catapres] 0.1 mg PO TID #30 tab 08/23/17 Diazepam [Valium] 10 mg PO TID tab 08/31/17 Nicotine 14Mg/24Hr Patch [Habitrol] 1 patch TRANSDERM DAILY #7 patch 08/31/17 Ondansetron [Zofran ODT] 4 mg PO Q8HR PRN #10 tab 09/16/17 Allergies Allergy/AdvReac Type Severity Reaction Status Date / Time No Known Allergies Allergy Verified 10/10/17 01:46 Review of Systems ROS Statement: Those systems with pertinent positive or pertinent negative responses have been documented in the HPI. ROS Other: All systems not noted in ROS Statement are negative. Past Medical History Past Medical History: GERD/Reflux, GI Bleed, Hyperlipidemia, Liver Disease, Pneumonia, Prostate Disorder Additional Past Medical History / Comment(s): ETOH ABUSE-PT STATES HE HAS HAD NO ALCOHOL PAST 2 MONTHS, RECURRANT PANCREATITIS, ALCOHOLIC HEPATITIS, NEUROPATHY BILATERAL FEET SINCE BACK SURGERY, NEPHROLITHIASIS, hx of CHRONIC URINARY RETENTION DUE TO BACK PROBLEMS-SELF CATHS.UTI. CHRONIC LOW BACK PAIN ( HAS STIMULATOR THAT PT STATES DOES NOT WORK. HEMATEMESIS, CHRONIC LOOSE STOOLS. History of Any Multi-Drug Resistant Organisms: None Reported Past Surgical History: Back Surgery, Cholecystectomy, Orthopedic Surgery Additional Past Surgical History / Comment(s): Bronchoscopy, BACK surgeries with TITANIUM PLATES MILTON and CAGES, KIDNEY STONES removed per pt, SPINAL CORD STIMULATOR, ISMAEL KNEE ARTHROSCOPIES, PINKY FINGER RT HAND REATTATCHED Past Anesthesia/Blood Transfusion Reactions: No Reported Reaction Past Psychological History: Anxiety, Depression Smoking Status: Current every day smoker Past Alcohol Use History: Abuse Past Drug Use History: None Reported - Past Family History Father Family Medical History: Diabetes Mellitus Additional Family Medical History / Comment(s): Mother Family Medical History: Dementia, Hyperlipidemia, Hypertension Additional Family Medical History / Comment(s): Mother is living. General Exam Limitations: no limitations General appearance: alert, in no apparent distress Head exam: Present: atraumatic, normocephalic, normal inspection Eye exam: Present: normal appearance, PERRL, EOMI. Absent: scleral icterus, conjunctival injection, periorbital swelling ENT exam: Present: normal exam, mucous membranes moist Neck exam: Present: normal inspection. Absent: tenderness, meningismus, lymphadenopathy Respiratory exam: Present: normal lung sounds bilaterally. Absent: respiratory distress, wheezes, rales, rhonchi, stridor Cardiovascular Exam: Present: regular rate, normal rhythm, normal heart sounds. Absent: systolic murmur, diastolic murmur, rubs, gallop, clicks GI/Abdominal exam: Present: soft, normal bowel sounds. Absent: distended, tenderness, guarding, rebound, rigid Extremities exam: Present: normal inspection, full ROM, normal capillary refill. Absent: tenderness, pedal edema, joint swelling, calf tenderness Back exam: Present: normal inspection Neurological exam: Present: alert, oriented X3, CN II-XII intact Psychiatric exam: Present: normal affect, normal mood Skin exam: Present: warm, dry, intact, normal color. Absent: rash Course Vital Signs 10/10/17 01:43 Temperature 98.2 F Pulse Rate 101 H Respiratory 16 Rate Blood Pressure 132/71 O2 Sat by Pulse 100 Oximetry - Reevaluation(s) Reevaluation #1: Medical record is reviewed Medical Decision Making - Medical Decision Making 27 male the ER for evaluation of abdominal pain concern for pancreatitis. Labwork is normal patient's pain is controlled and can be discharged home - Lab Data Result diagrams: 10/10/17 02:13 10/10/17 02:13 Lab Results 10/10/17 10/10/17 10/10/17 Range/Units 02:13 02:13 02:13 WBC 10.8 H (3.8-10.6) k/uL RBC 3.73 L (4.30-5.90) m/uL Hgb 11.3 L (13.0-17.5) gm/dL Hct 34.5 L (39.0-53.0) % MCV 92.5 (80.0-100.0) fL MCH 30.3 (25.0-35.0) pg MCHC 32.8 (31.0-37.0) g/dL RDW 14.5 (11.5-15.5) % Plt Count 394 (150-450) k/uL Neutrophils % 73 % Lymphocytes % 19 % Monocytes % 5 % Eosinophils % 2 % Basophils % 0 % Neutrophils # 7.9 H (1.3-7.7) k/uL Lymphocytes # 2.0 (1.0-4.8) k/uL Monocytes # 0.6 (0-1.0) k/uL Eosinophils # 0.2 (0-0.7) k/uL Basophils # 0.0 (0-0.2) k/uL Sodium 140 (137-145) mmol/L Potassium 4.3 (3.5-5.1) mmol/L Chloride 105 (98-107) mmol/L Carbon Dioxide 25 (22-30) mmol/L Anion Gap 10 mmol/L BUN 8 L (9-20) mg/dL Creatinine 0.60 L (0.66-1.25) mg/dL Est GFR (CKD-EPI)AfAm >90 (>60 ml/min/1.73 sqM) Est GFR (CKD-EPI)NonAf >90 (>60 ml/min/1.73 sqM) Glucose 101 H (74-99) mg/dL Calcium 8.9 (8.4-10.2) mg/dL Total Bilirubin 0.2 (0.2-1.3) mg/dL AST 110 H (17-59) U/L ALT 45 (21-72) U/L Alkaline Phosphatase 192 H (38-126) U/L Troponin I <0.012 (0.000-0.034) ng/mL Total Protein 5.8 L (6.3-8.2) g/dL Albumin 3.0 L (3.5-5.0) g/dL Amylase 55 (30-110) U/L Lipase 198 (23-300) U/L Disposition Clinical Impression: Abdominal pain Disposition: HOME SELF-CARE Condition: Good Instructions: Abdominal Pain (ED) Is patient prescribed a controlled substance at d/c from ED?: No Referrals: Carrillo Leo Jr, [Primary Care Provider] - 1-2 days
[2017-10-10 04:15] VITALS: BP 123/78; PULSE 82
== END 2017-10-10 04:05 | disposition home or self-care (01) ==
LOC: EC 01:40
DX: R10.9 Unspecified abdominal pain (principal); R07.9 Chest pain, unspecified; G89.29 Other chronic pain; E78.5 Hyperlipidemia, unspecified; G62.9 Polyneuropathy, unspecified; F41.9 Anxiety disorder, unspecified; F32.9 Major depressive disorder, single episode, unspecified; F17.200 Nicotine dependence, unspecified, uncomplicated; Z90.49 Acquired absence of other specified parts of digestive tract; Z87.19 Personal history of other diseases of the digestive system; Z79.51 Long term (current) use of inhaled steroids; Z79.899 Other long term (current) drug therapy
CPT/HCPCS: 99284; 96374; 96375 ×2; 36415; 80053; 82150; 83690; 84484; 85025; J2405; J1885; J0131; C9113

== ENCOUNTER 2017-10-10 23:14 | Emergency (ER) | payer MEDICARE, OTHER ==
[2017-10-10 23:20] VITALS: TEMP 97.6
[2017-10-10] MEDS ORDERED: PANTOPRAZOLE 40 MG/10 ML VIAL IVP STA (23:42)
[2017-10-10] MEDS ORDERED: SODIUM CHLORIDE 0.9% 1,000 ML IV STA ×2 (23:42)
[2017-10-10] MEDS ORDERED: ONDANSETRON 4 MG/2 ML VIAL IVP STA (23:42)
--- NOTE | 2017-10-10 23:57 | ED ---
General Adult HPI - General Chief complaint: Abdominal Pain Stated complaint: chest and abd pain Time Seen by Provider: 10/10/17 23:19 Source: patient, RN notes reviewed, old records reviewed Mode of arrival: ambulatory Limitations: no limitations - History of Present Illness Initial comments: This is a 47-year-old male the ER for evaluation. Again patient well-known to our ER for evaluation of chronic pancreatitis. Patient denies drinking over the last 24 hours. Patient was here last night for similar complaint. Patient states the pain is increased when he awoke from sleep today. Again denies any alcohol, no modifying factors for symptoms at home - Related Data Home Medications Medication Instructions Recorded Confirmed Atorvastatin [Lipitor] 10 mg PO HS 09/27/15 10/10/17 Albuterol Inhaler [Ventolin Hfa 2 puff INHALATION RT-Q4H PRN 03/01/17 10/10/17 Inhaler] Budesonide/Formoterol Fumarate 1 puff INHALATION RT-BID 04/04/17 10/10/17 [Symbicort 80-4.5 Mcg Inhaler] traZODone HCL 50 mg PO HS 04/04/17 10/10/17 Gabapentin [Neurontin] 400 mg PO TID 07/18/17 10/10/17 Acetaminophen-Codeine 300-30mg 1 tab PO Q6HR PRN 09/10/17 10/10/17 [Tylenol w/codeine #3] DULoxetine HCL [Cymbalta] 30 mg PO DAILY 09/18/17 10/10/17 Magnesium Oxide [Mag-Ox] 200 mg PO DAILY 09/18/17 10/10/17 Tamsulosin HCl [Flomax] 0.4 mg PO DAILY 09/18/17 10/10/17 Previous Rx's Medication Instructions Recorded Folic Acid 1 mg PO DAILY #30 tablet 07/15/15 Omeprazole [PriLOSEC] 40 mg PO BID #60 capsule. 05/16/17 cloNIDine HCL [Catapres] 0.1 mg PO TID #30 tab 08/23/17 Diazepam [Valium] 10 mg PO TID tab 08/31/17 Nicotine 14Mg/24Hr Patch [Habitrol] 1 patch TRANSDERM DAILY #7 patch 08/31/17 Ondansetron [Zofran ODT] 4 mg PO Q8HR PRN #10 tab 09/16/17 Allergies Allergy/AdvReac Type Severity Reaction Status Date / Time No Known Allergies Allergy Verified 10/10/17 23:32 Review of Systems ROS Statement: Those systems with pertinent positive or pertinent negative responses have been documented in the HPI. ROS Other: All systems not noted in ROS Statement are negative. Past Medical History Past Medical History: GERD/Reflux, GI Bleed, Hyperlipidemia, Liver Disease, Pneumonia, Prostate Disorder Additional Past Medical History / Comment(s): ETOH ABUSE-PT STATES HE HAS HAD NO ALCOHOL PAST 2 MONTHS, RECURRANT PANCREATITIS, ALCOHOLIC HEPATITIS, NEUROPATHY BILATERAL FEET SINCE BACK SURGERY, NEPHROLITHIASIS, hx of CHRONIC URINARY RETENTION DUE TO BACK PROBLEMS-SELF CATHS.UTI. CHRONIC LOW BACK PAIN ( HAS STIMULATOR THAT PT STATES DOES NOT WORK. HEMATEMESIS, CHRONIC LOOSE STOOLS. History of Any Multi-Drug Resistant Organisms: None Reported Past Surgical History: Back Surgery, Cholecystectomy, Orthopedic Surgery Additional Past Surgical History / Comment(s): Bronchoscopy, BACK surgeries with TITANIUM PLATES MILTON and CAGES, KIDNEY STONES removed per pt, SPINAL CORD STIMULATOR, ISMAEL KNEE ARTHROSCOPIES, PINKY FINGER RT HAND REATTATCHED Past Anesthesia/Blood Transfusion Reactions: No Reported Reaction Past Psychological History: Anxiety, Depression Smoking Status: Current every day smoker Past Alcohol Use History: Abuse Past Drug Use History: None Reported - Past Family History Father Family Medical History: Diabetes Mellitus Additional Family Medical History / Comment(s): Mother Family Medical History: Dementia, Hyperlipidemia, Hypertension Additional Family Medical History / Comment(s): Mother is living. General Exam Limitations: no limitations General appearance: alert, in no apparent distress Head exam: Present: atraumatic, normocephalic, normal inspection Eye exam: Present: normal appearance, PERRL, EOMI. Absent: scleral icterus, conjunctival injection, periorbital swelling ENT exam: Present: normal exam, mucous membranes moist Neck exam: Present: normal inspection. Absent: tenderness, meningismus, lymphadenopathy Respiratory exam: Present: normal lung sounds bilaterally. Absent: respiratory distress, wheezes, rales, rhonchi, stridor Cardiovascular Exam: Present: regular rate, normal rhythm, normal heart sounds. Absent: systolic murmur, diastolic murmur, rubs, gallop, clicks GI/Abdominal exam: Present: soft, normal bowel sounds. Absent: distended, tenderness, guarding, rebound, rigid Extremities exam: Present: normal inspection, full ROM, normal capillary refill. Absent: tenderness, pedal edema, joint swelling, calf tenderness Back exam: Present: normal inspection Neurological exam: Present: alert, oriented X3, CN II-XII intact Psychiatric exam: Present: normal affect, normal mood Skin exam: Present: warm, dry, intact, normal color. Absent: rash Course Vital Signs 10/10/17 23:17 Temperature 97.6 F Pulse Rate 74 Respiratory 20 Rate Blood Pressure 132/74 O2 Sat by Pulse 100 Oximetry - Reevaluation(s) Reevaluation #1: 10/10/17 23:56 Prior ER visit is reviewed, I also saw patient last night Reevaluation #2: 10/10/17 23:56 Patient informed to not receiving narcotic medication here in the ER Medical Decision Making - Medical Decision Making Plan I male the ER with acute on chronic pancreatitis, no elevation of lipase, no significant medical finding here today. Patient can be discharged home Disposition Clinical Impression: Chronic pancreatitis Disposition: HOME SELF-CARE Condition: Good Instructions: Pancreatitis (ED) Is patient prescribed a controlled substance at d/c from ED?: No Referrals: Carrillo Leo Jr, [Primary Care Provider] - 1-2 days
[2017-10-11 00:25] LABS: Basophils % (A) 0 %; Eosinophils # (A) 0.3 k/uL (0-0.7); Eosinophils % (A) 3 %; HCT 37.4 % (39.0-53.0); HGB 12.2 gm/dL (13.0-17.5); Lymphocytes # (A) 2.1 k/uL (1.0-4.8); Lymphocytes % (A) 23 %; MCHC 32.7 g/dL (31.0-37.0); MCV 91.8 fL (80.0-100.0); Mean Platelet Volume 7.8; Monocytes # (A) 0.5 k/uL (0-1.0); Monocytes % (A) 5 %; Neutrophils # (A) 6.3 k/uL (1.3-7.7); Neutrophils % (A) 68 %; Platelet Count 411 k/uL (150-450); RBC 4.07 m/uL (4.30-5.90); RDW 14.4 % (11.5-15.5); WBC 9.3 k/uL (3.8-10.6)
[2017-10-11 00:33] LABS: ALT 41 U/L (21-72); AST 46 U/L (17-59); Albumin 3.4 g/dL (3.5-5.0); Alkaline Phosphatase 220 U/L (38-126); Amylase 62 U/L (30-110); Anion Gap 10 mmol/L; Blood Urea Nitrogen 8 mg/dL (9-20); Calcium 9.2 mg/dL (8.4-10.2); Carbon Dioxide 25 mmol/L (22-30); Chloride 103 mmol/L (98-107); Glucose 93 mg/dL (74-99); Lipase 490 U/L (23-300); Sodium 138 mmol/L (137-145); Total Bilirubin 0.4 mg/dL (0.2-1.3); Total Protein 6.4 g/dL (6.3-8.2)
[2017-10-11 01:33] VITALS: BP 147/87; PULSE 80; RESP 16
== END 2017-10-11 01:34 | disposition home or self-care (01) ==
LOC: EC 23:14
DX: K86.1 Other chronic pancreatitis (principal); R07.9 Chest pain, unspecified; E78.5 Hyperlipidemia, unspecified; N42.9 Disorder of prostate, unspecified; F32.9 Major depressive disorder, single episode, unspecified; F41.9 Anxiety disorder, unspecified; F17.200 Nicotine dependence, unspecified, uncomplicated; Z79.51 Long term (current) use of inhaled steroids; Z79.899 Other long term (current) drug therapy; Z90.49 Acquired absence of other specified parts of digestive tract
CPT/HCPCS: 99284 ×2; 96374 ×2; 96375 ×2; 96361 ×2; 36415 ×2; 93005; 80053 ×2; 82150 ×2; 83690 ×2; 84484; 85025 ×2; J2405 ×2; J1885; J0131; C9113 ×2

== ENCOUNTER 2017-10-14 04:06 | Emergency (ER) | payer MEDICARE, OTHER ==
[2017-10-14 05:26] LABS: Basophils % (A) 0 %; Eosinophils # (A) 0.1 k/uL (0-0.7); Eosinophils % (A) 1 %; HCT 35.9 % (39.0-53.0); HGB 11.8 gm/dL (13.0-17.5); Lymphocytes # (A) 0.8 k/uL (1.0-4.8); Lymphocytes % (A) 7 %; MCH 30.5 pg (25.0-35.0); MCHC 32.8 g/dL (31.0-37.0); Mean Platelet Volume 6.9; Monocytes # (A) 0.4 k/uL (0-1.0); Monocytes % (A) 3 %; Neutrophils # (A) 11.4 k/uL (1.3-7.7); Neutrophils % (A) 90 %; Platelet Count 382 k/uL (150-450); RBC 3.86 m/uL (4.30-5.90); RDW 15.1 % (11.5-15.5); WBC 12.8 k/uL (3.8-10.6)
[2017-10-14 05:34] LABS: ALT 47 U/L (21-72); AST 21 U/L (17-59); Albumin 3.2 g/dL (3.5-5.0); Alcohol <10 mg/dL; Alkaline Phosphatase 250 U/L (38-126); Amylase 111 U/L (30-110); Anion Gap 13 mmol/L; Blood Urea Nitrogen 8 mg/dL (9-20); Calcium 8.9 mg/dL (8.4-10.2); Carbon Dioxide 24 mmol/L (22-30); Chloride 100 mmol/L (98-107); Glucose 98 mg/dL (74-99); Lipase 1328 U/L (23-300); Potassium 3.9 mmol/L (3.5-5.1); Sodium 137 mmol/L (137-145); Total Bilirubin 0.4 mg/dL (0.2-1.3); Total Protein 5.9 g/dL (6.3-8.2)
[2017-10-14 05:43] LABS: Appearance,Urine Cloudy (Clear); Bacteria,Urine Rare /hpf; Bilirubin,Urine Negative (Negative); Blood,Urine Negative (Negative); Budding Yeast,Urine Many /hpf; Color,Urine Yellow; Glucose,Urine (UA) Negative (Negative); Ketones,Urine 4+ (Negative); Leukocyte Esterase,Urine Large (Negative); Mucus,Urine Few /hpf; Nitrite,Urine Positive (Negative); PH, Urine 5.5 (5.0-8.0); Protein,Urine Trace (Negative); RBC,Urine 4 /hpf (0-5); Specific Gravity,Urine 1.018 (1.001-1.035); Squamous Epithelial Cell,Urine <1 /hpf (0-4); WBC,Urine 51 /hpf (0-5)
[2017-10-14] MEDS ORDERED: ONDANSETRON 4 MG/2 ML VIAL IVP STA (05:47)
[2017-10-14] MEDS ORDERED: LEVOFLOXACIN 750 MG TAB PO STA (05:49)
[2017-10-14] MEDS ORDERED: MORPHINE SULFATE 4 MG/ML SYRINGE IV STA (05:49)
--- NOTE | 2017-10-14 06:40 | ED ---
Abdominal Pain HPI - General Chief Complaint: Abdominal Pain Stated Complaint: chest pain Time Seen by Provider: 10/14/17 04:52 Source: patient, family Mode of arrival: ambulatory Limitations: no limitations - History of Present Illness MD Complaint: abdominal pain -: hour(s) Location: epigastric Radiation: back Migration to: no migration Severity: moderate Quality: aching Consistency: constant Improves With: nothing Worsens With: nothing Associated Symptoms: nausea - Related Data Home Medications Medication Instructions Recorded Confirmed Atorvastatin [Lipitor] 10 mg PO HS 09/27/15 10/14/17 Albuterol Inhaler [Ventolin Hfa 2 puff INHALATION RT-Q4H PRN 03/01/17 10/14/17 Inhaler] Budesonide/Formoterol Fumarate 1 puff INHALATION RT-BID 04/04/17 10/14/17 [Symbicort 80-4.5 Mcg Inhaler] traZODone HCL 50 mg PO HS 04/04/17 10/14/17 Gabapentin [Neurontin] 400 mg PO TID 07/18/17 10/14/17 Acetaminophen-Codeine 300-30mg 1 tab PO Q6HR PRN 09/10/17 10/14/17 [Tylenol w/codeine #3] DULoxetine HCL [Cymbalta] 30 mg PO DAILY 09/18/17 10/14/17 Magnesium Oxide [Mag-Ox] 200 mg PO DAILY 09/18/17 10/14/17 Tamsulosin HCl [Flomax] 0.4 mg PO DAILY 09/18/17 10/14/17 Previous Rx's Medication Instructions Recorded Folic Acid 1 mg PO DAILY #30 tablet 07/15/15 Omeprazole [PriLOSEC] 40 mg PO BID #60 capsule. 05/16/17 cloNIDine HCL [Catapres] 0.1 mg PO TID #30 tab 08/23/17 Diazepam [Valium] 10 mg PO TID tab 08/31/17 Nicotine 14Mg/24Hr Patch [Habitrol] 1 patch TRANSDERM DAILY #7 patch 08/31/17 Ondansetron [Zofran ODT] 4 mg PO Q8HR PRN #10 tab 09/16/17 Ciprofloxacin HCl [Cipro] 500 mg PO Q12HR #14 tablet 10/14/17 Allergies Allergy/AdvReac Type Severity Reaction Status Date / Time No Known Allergies Allergy Verified 10/14/17 04:13 Review of Systems ROS Statement: Those systems with pertinent positive or pertinent negative responses have been documented in the HPI. ROS Other: All systems not noted in ROS Statement are negative. Constitutional: Denies: fever, chills Respiratory: Denies: cough, dyspnea Cardiovascular: Denies: chest pain, edema Gastrointestinal: Reports: abdominal pain, nausea. Denies: vomiting, diarrhea, constipation Genitourinary: Denies: dysuria, hematuria Musculoskeletal: Denies: back pain Skin: Denies: rash Neurological: Denies: headache, weakness, numbness Past Medical History Past Medical History: GERD/Reflux, GI Bleed, Hyperlipidemia, Liver Disease, Pneumonia, Prostate Disorder Additional Past Medical History / Comment(s): ETOH ABUSE-PT STATES HE HAS HAD NO ALCOHOL PAST 2 MONTHS, RECURRANT PANCREATITIS, ALCOHOLIC HEPATITIS, NEUROPATHY BILATERAL FEET SINCE BACK SURGERY, NEPHROLITHIASIS, hx of CHRONIC URINARY RETENTION DUE TO BACK PROBLEMS-SELF CATHS.UTI. CHRONIC LOW BACK PAIN ( HAS STIMULATOR THAT PT STATES DOES NOT WORK. HEMATEMESIS, CHRONIC LOOSE STOOLS. History of Any Multi-Drug Resistant Organisms: None Reported Past Surgical History: Back Surgery, Cholecystectomy, Orthopedic Surgery Additional Past Surgical History / Comment(s): Bronchoscopy, BACK surgeries with TITANIUM PLATES MILTON and CAGES, KIDNEY STONES removed per pt, SPINAL CORD STIMULATOR, ISMAEL KNEE ARTHROSCOPIES, PINKY FINGER RT HAND REATTATCHED Past Anesthesia/Blood Transfusion Reactions: No Reported Reaction Past Psychological History: Anxiety, Depression Smoking Status: Current every day smoker Past Alcohol Use History: Abuse Past Drug Use History: None Reported - Past Family History Father Family Medical History: Diabetes Mellitus Additional Family Medical History / Comment(s): Mother Family Medical History: Dementia, Hyperlipidemia, Hypertension Additional Family Medical History / Comment(s): Mother is living. General Exam Limitations: no limitations General appearance: alert, in no apparent distress Head exam: Present: atraumatic, normocephalic Eye exam: Present: normal appearance. Absent: scleral icterus, conjunctival injection ENT exam: Present: normal oropharynx Neck exam: Present: normal inspection Respiratory exam: Present: normal lung sounds bilaterally. Absent: respiratory distress, wheezes, rales, rhonchi, stridor Cardiovascular Exam: Present: regular rate, normal rhythm, normal heart sounds. Absent: systolic murmur, diastolic murmur, rubs, gallop GI/Abdominal exam: Present: soft, normal bowel sounds. Absent: distended, tenderness, guarding, rebound, mass Extremities exam: Present: normal inspection, normal capillary refill. Absent: pedal edema, calf tenderness Back exam: Present: normal inspection. Absent: CVA tenderness (R), CVA tenderness (L) Neurological exam: Present: alert Skin exam: Present: warm, dry, intact, normal color. Absent: rash Course Vital Signs 10/14/17 10/14/17 10/14/17 04:10 05:07 06:02 Temperature 98 F 98.4 F Pulse Rate 100 92 93 Respiratory 18 18 18 Rate Blood Pressure 121/68 144/81 144/88 O2 Sat by Pulse 100 99 100 Oximetry 10/14/17 10/14/17 07:12 07:13 Temperature 98.1 F Pulse Rate 87 Respiratory 16 Rate Blood Pressure 126/85 O2 Sat by Pulse 99 Oximetry Medical Decision Making - Lab Data Result diagrams: 10/14/17 05:16 10/14/17 05:16 Lab Results 10/14/17 10/14/17 10/14/17 Range/Units 05:16 05:16 05:29 WBC 12.8 H (3.8-10.6) k/uL RBC 3.86 L (4.30-5.90) m/uL Hgb 11.8 L (13.0-17.5) gm/dL Hct 35.9 L (39.0-53.0) % MCV 93.0 (80.0-100.0) fL MCH 30.5 (25.0-35.0) pg MCHC 32.8 (31.0-37.0) g/dL RDW 15.1 (11.5-15.5) % Plt Count 382 (150-450) k/uL Neutrophils % 90 % Lymphocytes % 7 % Monocytes % 3 % Eosinophils % 1 % Basophils % 0 % Neutrophils # 11.4 H (1.3-7.7) k/uL Lymphocytes # 0.8 L (1.0-4.8) k/uL Monocytes # 0.4 (0-1.0) k/uL Eosinophils # 0.1 (0-0.7) k/uL Basophils # 0.0 (0-0.2) k/uL Sodium 137 (137-145) mmol/L Potassium 3.9 (3.5-5.1) mmol/L Chloride 100 (98-107) mmol/L Carbon Dioxide 24 (22-30) mmol/L Anion Gap 13 mmol/L BUN 8 L (9-20) mg/dL Creatinine 0.52 L (0.66-1.25) mg/dL Est GFR (CKD-EPI)AfAm >90 (>60 ml/min/1.73 sqM) Est GFR (CKD-EPI)NonAf >90 (>60 ml/min/1.73 sqM) Glucose 98 (74-99) mg/dL Calcium 8.9 (8.4-10.2) mg/dL Total Bilirubin 0.4 (0.2-1.3) mg/dL AST 21 (17-59) U/L ALT 47 (21-72) U/L Alkaline Phosphatase 250 H (38-126) U/L Total Protein 5.9 L (6.3-8.2) g/dL Albumin 3.2 L (3.5-5.0) g/dL Amylase 111 H (30-110) U/L Lipase 1328 H (23-300) U/L Urine Color Yellow Urine Appearance Cloudy (Clear) Urine pH 5.5 (5.0-8.0) Ur Specific Herreid 1.018 (1.001-1.035) Urine Protein Trace H (Negative) Urine Glucose (UA) Negative (Negative) Urine Ketones 4+ H (Negative) Urine Blood Negative (Negative) Urine Nitrite Positive (Negative) Urine Bilirubin Negative (Negative) Urine Urobilinogen 2.0 (<2.0) mg/dL Ur Leukocyte Esterase Large H (Negative) Urine RBC 4 (0-5) /hpf Urine WBC 51 H (0-5) /hpf Ur Squamous Epith Cells <1 (0-4) /hpf Urine Bacteria Rare H (None) /hpf Urine Mucus Few H (None) /hpf Urine Yeast (Budding) Many H (None) /hpf Serum Alcohol <10 mg/dL - EKG Data -: EKG Interpreted by [facility] EKG shows normal: sinus rhythm (Rate 97 bpm), axis (Normal), intervals (QT interval is prolonged at 505 ms. Other intervals normal), QRS complexes (Normal ), ST-T waves (Normal) Rate: normal Disposition Clinical Impression: Acute on chronic pancreatitis, UTI (urinary tract infection) Disposition: HOME SELF-CARE Condition: Fair Instructions: Pancreatitis (ED), Urinary Tract Infection in Men (ED) Prescriptions: Ciprofloxacin HCl [Cipro] 500 mg PO Q12HR #14 tablet Is patient prescribed a controlled substance at d/c from ED?: No Referrals: Carrillo Leo Jr, DO [Primary Care Provider] - 1-2 days
[2017-10-14 07:13] VITALS: BP 126/85; PULSE 87; RESP 16
[2017-10-14 07:14] VITALS: TEMP 98.1
== END 2017-10-14 07:28 | disposition home or self-care (01) ==
LOC: EC 04:06
DX: K86.1 Other chronic pancreatitis (principal); K85.90 Acute pancreatitis without necrosis or infection, unspecified; N39.0 Urinary tract infection, site not specified; E78.5 Hyperlipidemia, unspecified; K21.9 Gastro-esophageal reflux disease without esophagitis; N42.9 Disorder of prostate, unspecified; F32.9 Major depressive disorder, single episode, unspecified; F41.9 Anxiety disorder, unspecified; F17.200 Nicotine dependence, unspecified, uncomplicated; Z79.51 Long term (current) use of inhaled steroids; Z79.899 Other long term (current) drug therapy; Z90.49 Acquired absence of other specified parts of digestive tract
CPT/HCPCS: 36415; 93005; 80053; 82150; 83690; 85025; 81001; 80320; 99284; 96374; 96375; J2270; J2405

== ENCOUNTER 2017-10-17 14:03 | Emergency (ER) | payer MEDICARE, OTHER ==
[2017-10-17] MEDS ORDERED: ONDANSETRON 4 MG/2 ML VIAL IVP STA (15:29)
[2017-10-17] MEDS ORDERED: SODIUM CHLORIDE 0.9% 1,000 ML IV STA (15:29)
--- NOTE | 2017-10-17 15:33 | ED ---
General Adult HPI - General Chief complaint: Abdominal Pain Stated complaint: chest & abdominal pain Time Seen by Provider: 10/17/17 14:25 Source: patient, RN notes reviewed Mode of arrival: wheelchair Limitations: no limitations - History of Present Illness Initial comments: This a 47-year-old male with a past medical history significant for alcoholism and pancreatitis. Patient comes in today stating he continues to drink. Patient states she's had epigastric abdominal pain and is very nauseated. Patient states he did vomit this morning. Patient denies any chest pain palpitations difficulty breathing or shortness of breath. Patient denies any recent fever chills or cough. Patient denies any diarrhea. Patient denies any radiation of the abdominal pain. Patient mentioned to nursing that he has chest pain however he denied that to me. - Related Data Home Medications Medication Instructions Recorded Confirmed Atorvastatin [Lipitor] 10 mg PO HS 09/27/15 10/14/17 Albuterol Inhaler [Ventolin Hfa 2 puff INHALATION RT-Q4H PRN 03/01/17 10/14/17 Inhaler] Budesonide/Formoterol Fumarate 1 puff INHALATION RT-BID 04/04/17 10/14/17 [Symbicort 80-4.5 Mcg Inhaler] traZODone HCL 50 mg PO HS 04/04/17 10/14/17 Gabapentin [Neurontin] 400 mg PO TID 07/18/17 10/14/17 Acetaminophen-Codeine 300-30mg 1 tab PO Q6HR PRN 09/10/17 10/14/17 [Tylenol w/codeine #3] DULoxetine HCL [Cymbalta] 30 mg PO DAILY 09/18/17 10/14/17 Magnesium Oxide [Mag-Ox] 200 mg PO DAILY 09/18/17 10/14/17 Tamsulosin HCl [Flomax] 0.4 mg PO DAILY 09/18/17 10/14/17 Previous Rx's Medication Instructions Recorded Folic Acid 1 mg PO DAILY #30 tablet 07/15/15 Omeprazole [PriLOSEC] 40 mg PO BID #60 capsule. 05/16/17 cloNIDine HCL [Catapres] 0.1 mg PO TID #30 tab 08/23/17 Diazepam [Valium] 10 mg PO TID tab 08/31/17 Nicotine 14Mg/24Hr Patch [Habitrol] 1 patch TRANSDERM DAILY #7 patch 08/31/17 Ondansetron [Zofran ODT] 4 mg PO Q8HR PRN #10 tab 09/16/17 Ciprofloxacin HCl [Cipro] 500 mg PO Q12HR #14 tablet 10/14/17 Allergies Allergy/AdvReac Type Severity Reaction Status Date / Time No Known Allergies Allergy Verified 10/17/17 15:39 Review of Systems ROS Statement: Those systems with pertinent positive or pertinent negative responses have been documented in the HPI. ROS Other: All systems not noted in ROS Statement are negative. Past Medical History Past Medical History: GERD/Reflux, GI Bleed, Hyperlipidemia, Liver Disease, Pneumonia, Prostate Disorder Additional Past Medical History / Comment(s): ETOH ABUSE-PT STATES HE HAS HAD NO ALCOHOL PAST 2 MONTHS, RECURRANT PANCREATITIS, ALCOHOLIC HEPATITIS, NEUROPATHY BILATERAL FEET SINCE BACK SURGERY, NEPHROLITHIASIS, hx of CHRONIC URINARY RETENTION DUE TO BACK PROBLEMS-SELF CATHS.UTI. CHRONIC LOW BACK PAIN ( HAS STIMULATOR THAT PT STATES DOES NOT WORK. HEMATEMESIS, CHRONIC LOOSE STOOLS. History of Any Multi-Drug Resistant Organisms: None Reported Past Surgical History: Back Surgery, Cholecystectomy, Orthopedic Surgery Additional Past Surgical History / Comment(s): Bronchoscopy, BACK surgeries with TITANIUM PLATES MILTON and CAGES, KIDNEY STONES removed per pt, SPINAL CORD STIMULATOR, ISMAEL KNEE ARTHROSCOPIES, PINKY FINGER RT HAND REATTATCHED Past Anesthesia/Blood Transfusion Reactions: No Reported Reaction Past Psychological History: Anxiety, Depression Smoking Status: Current every day smoker Past Alcohol Use History: Abuse Past Drug Use History: None Reported - Past Family History Father Family Medical History: Diabetes Mellitus Additional Family Medical History / Comment(s): Mother Family Medical History: Dementia, Hyperlipidemia, Hypertension Additional Family Medical History / Comment(s): Mother is living. General Exam - General Exam Comments Initial Comments: GENERAL: Patient is well-developed and well-nourished. Patient is nontoxic and well- hydrated and is in mild distress. ENT: Neck is soft and supple. No significant lymphadenopathy is noted. Oropharynx is clear. Moist mucous membranes. Neck has full range of motion without eliciting any pain. EYES: The sclera were anicteric and conjunctiva were pink and moist. Extraocular movements were intact and pupils were equal round and reactive to light. Eyelids were unremarkable. PULMONARY: Unlabored respirations. Good breath sounds bilaterally. No audible rales rhonchi or wheezing was noted. CARDIOVASCULAR: There is a regular rate and rhythm without any murmurs gallops or rubs. ABDOMEN: Epigastric is mildly tender SKIN: Skin is clear with no lesions or rashes and otherwise unremarkable. NEUROLOGIC: Patient is alert and oriented x3. Cranial nerves II through XII are grossly intact. Motor and sensory are also intact. Normal speech, volume and content. Symmetrical smile. MUSCULOSKELETAL: Normal extremities with adequate strength and full range of motion. No lower extremity swelling or edema. No calf tenderness. LYMPHATICS: No significant lymphadenopathy is noted PSYCHIATRIC: Normal psychiatric evaluation. Limitations: no limitations Course Vital Signs 10/17/17 10/17/17 10/17/17 14:23 16:19 16:22 Temperature 98.3 F 98.8 F Pulse Rate 101 H 86 Respiratory 18 16 Rate Blood Pressure 102/67 122/79 O2 Sat by Pulse 100 100 Oximetry Medical Decision Making - Medical Decision Making EKG shows normal sinus rhythm at 80 bpm CA interval is 146 dresses 78 QT interval 384 QTC is 464. Patient's EKG shows no ST segment elevation or depression or T wave abnormalities are noted. I will back into reevaluate the patient and with distraction the patient had no abdominal pain whatsoever. - Lab Data Result diagrams: 10/17/17 16:08 10/17/17 16:08 Lab Results 10/17/17 10/17/17 10/17/17 Range/Units 16:08 16:08 16:08 WBC 7.8 (3.8-10.6) k/uL RBC 3.85 L (4.30-5.90) m/uL Hgb 11.9 L (13.0-17.5) gm/dL Hct 35.6 L (39.0-53.0) % MCV 92.3 (80.0-100.0) fL MCH 30.8 (25.0-35.0) pg MCHC 33.3 (31.0-37.0) g/dL RDW 15.2 (11.5-15.5) % Plt Count 304 (150-450) k/uL Neutrophils % 79 % Lymphocytes % 14 % Monocytes % 5 % Eosinophils % 1 % Basophils % 0 % Neutrophils # 6.1 (1.3-7.7) k/uL Lymphocytes # 1.1 (1.0-4.8) k/uL Monocytes # 0.4 (0-1.0) k/uL Eosinophils # 0.1 (0-0.7) k/uL Basophils # 0.0 (0-0.2) k/uL Sodium 135 L (137-145) mmol/L Potassium 4.2 (3.5-5.1) mmol/L Chloride 101 (98-107) mmol/L Carbon Dioxide 20 L (22-30) mmol/L Anion Gap 14 mmol/L BUN 9 (9-20) mg/dL Creatinine 0.50 L (0.66-1.25) mg/dL Est GFR (CKD-EPI)AfAm >90 (>60 ml/min/1.73 sqM) Est GFR (CKD-EPI)NonAf >90 (>60 ml/min/1.73 sqM) Glucose 74 (74-99) mg/dL Calcium 8.7 (8.4-10.2) mg/dL Total Bilirubin 0.6 (0.2-1.3) mg/dL AST 28 (17-59) U/L ALT 34 (21-72) U/L Alkaline Phosphatase 209 H (38-126) U/L Troponin I <0.012 (0.000-0.034) ng/mL Total Protein 5.9 L (6.3-8.2) g/dL Albumin 3.1 L (3.5-5.0) g/dL Amylase 59 (30-110) U/L Lipase 402 H (23-300) U/L Disposition Clinical Impression: Alcohol abuse, Gastritis Disposition: HOME SELF-CARE Instructions: Abuse of Alcohol (ED), Gastritis (ED) Additional Instructions: Patient is to stop drinking alcohol go to a rehabilitation center. Is patient prescribed a controlled substance at d/c from ED?: No Referrals: Carrillo Leo Jr, [Primary Care Provider] - 1-2 days Time of Disposition: 17:14
[2017-10-17 16:22] VITALS: BP 122/79; PULSE 86; RESP 16
[2017-10-17 16:23] VITALS: TEMP 98.8
[2017-10-17 16:36] LABS: Basophils % (A) 0 %; Eosinophils # (A) 0.1 k/uL (0-0.7); Eosinophils % (A) 1 %; HCT 35.6 % (39.0-53.0); HGB 11.9 gm/dL (13.0-17.5); Lymphocytes # (A) 1.1 k/uL (1.0-4.8); Lymphocytes % (A) 14 %; MCH 30.8 pg (25.0-35.0); MCHC 33.3 g/dL (31.0-37.0); MCV 92.3 fL (80.0-100.0); Mean Platelet Volume 7.5; Monocytes # (A) 0.4 k/uL (0-1.0); Monocytes % (A) 5 %; Neutrophils # (A) 6.1 k/uL (1.3-7.7); Neutrophils % (A) 79 %; Platelet Count 304 k/uL (150-450); RBC 3.85 m/uL (4.30-5.90); RDW 15.2 % (11.5-15.5); WBC 7.8 k/uL (3.8-10.6)
[2017-10-17 16:43] LABS: ALT 34 U/L (21-72); AST 28 U/L (17-59); Albumin 3.1 g/dL (3.5-5.0); Alkaline Phosphatase 209 U/L (38-126); Amylase 59 U/L (30-110); Anion Gap 14 mmol/L; Blood Urea Nitrogen 9 mg/dL (9-20); Calcium 8.7 mg/dL (8.4-10.2); Carbon Dioxide 20 mmol/L (22-30); Chloride 101 mmol/L (98-107); Glucose 74 mg/dL (74-99); Lipase 402 U/L (23-300); Potassium 4.2 mmol/L (3.5-5.1); Sodium 135 mmol/L (137-145); Total Bilirubin 0.6 mg/dL (0.2-1.3); Total Protein 5.9 g/dL (6.3-8.2)
== END 2017-10-17 17:33 | disposition home or self-care (01) ==
LOC: EC 14:03
DX: K29.70 Gastritis, unspecified, without bleeding (principal); F10.10 Alcohol abuse, uncomplicated; E78.5 Hyperlipidemia, unspecified; K21.9 Gastro-esophageal reflux disease without esophagitis; F41.9 Anxiety disorder, unspecified; N42.9 Disorder of prostate, unspecified; F32.9 Major depressive disorder, single episode, unspecified; F17.200 Nicotine dependence, unspecified, uncomplicated; Z87.442 Personal history of urinary calculi; Z90.49 Acquired absence of other specified parts of digestive tract; Z98.890 Other specified postprocedural states; Z87.19 Personal history of other diseases of the digestive system; Z79.51 Long term (current) use of inhaled steroids; Z79.899 Other long term (current) drug therapy
CPT/HCPCS: 99284; 96374; 96361; 36415; 93005; 80053; 82150; 83690; 84484; 85025; J2405

== ENCOUNTER 2017-10-20 07:45 | Inpatient (IN) | payer MEDICARE, OTHER ==
[2017-10-20] MEDS ORDERED: SODIUM CHLORIDE 0.9% 1,000 ML IV STA (08:08)
[2017-10-20 08:31] LABS: Basophils % (A) 0 %; Eosinophils # (A) 0.2 k/uL (0-0.7); Eosinophils % (A) 2 %; HCT 38.3 % (39.0-53.0); HGB 12.5 gm/dL (13.0-17.5); Lymphocytes # (A) 1.3 k/uL (1.0-4.8); Lymphocytes % (A) 13 %; MCH 30.1 pg (25.0-35.0); MCHC 32.7 g/dL (31.0-37.0); MCV 92.1 fL (80.0-100.0); Mean Platelet Volume 7.3; Monocytes # (A) 0.5 k/uL (0-1.0); Monocytes % (A) 4 %; Neutrophils # (A) 8.5 k/uL (1.3-7.7); Neutrophils % (A) 80 %; Platelet Count 452 k/uL (150-450); RBC 4.16 m/uL (4.30-5.90); RDW 15.4 % (11.5-15.5); WBC 10.7 k/uL (3.8-10.6)
[2017-10-20 08:48] LABS: ALT 28 U/L (21-72); AST 16 U/L (17-59); Albumin 3.5 g/dL (3.5-5.0); Alcohol 32 mg/dL; Alkaline Phosphatase 201 U/L (38-126); Amylase 112 U/L (30-110); Anion Gap 12 mmol/L; Blood Urea Nitrogen 4 mg/dL (9-20); Calcium 9.2 mg/dL (8.4-10.2); Carbon Dioxide 25 mmol/L (22-30); Chloride 97 mmol/L (98-107); Glucose 92 mg/dL (74-99); Lipase 1671 U/L (23-300); Potassium 3.2 mmol/L (3.5-5.1); Sodium 134 mmol/L (137-145); Total Bilirubin 0.4 mg/dL (0.2-1.3); Total Protein 6.5 g/dL (6.3-8.2)
[2017-10-20] MEDS ORDERED: KETOROLAC 30 MG/ML 1 ML VIAL IVP STA (08:51)
--- NOTE | 2017-10-20 08:54 | ED ---
Abdominal Pain HPI - General Chief Complaint: Abdominal Pain Stated Complaint: Chest/abd.pain Time Seen by Provider: 10/20/17 08:08 Source: patient, RN notes reviewed Mode of arrival: wheelchair Limitations: no limitations - History of Present Illness Initial Comments: Is a 47-year-old male presents emergency Department chief complaint abdominal pain. Patient is chronic pancreatitis. Patient states he drank alcohol last night. Patient went to pain this morning and 2 episodes of vomiting. Patient denies any hematemesis or coffee-ground emesis. Patient denies any fever, chills, chest pain, shortness breath, headache or dizziness. Patient has no dysuria no hematuria. - Related Data Home Medications Medication Instructions Recorded Confirmed Atorvastatin [Lipitor] 10 mg PO HS 09/27/15 10/14/17 Albuterol Inhaler [Ventolin Hfa 2 puff INHALATION RT-Q4H PRN 03/01/17 10/14/17 Inhaler] Budesonide/Formoterol Fumarate 1 puff INHALATION RT-BID 04/04/17 10/14/17 [Symbicort 80-4.5 Mcg Inhaler] traZODone HCL 50 mg PO HS 04/04/17 10/14/17 Gabapentin [Neurontin] 400 mg PO TID 07/18/17 10/14/17 Acetaminophen-Codeine 300-30mg 1 tab PO Q6HR PRN 09/10/17 10/14/17 [Tylenol w/codeine #3] DULoxetine HCL [Cymbalta] 30 mg PO DAILY 09/18/17 10/14/17 Magnesium Oxide [Mag-Ox] 200 mg PO DAILY 09/18/17 10/14/17 Tamsulosin HCl [Flomax] 0.4 mg PO DAILY 09/18/17 10/14/17 Previous Rx's Medication Instructions Recorded Folic Acid 1 mg PO DAILY #30 tablet 07/15/15 Omeprazole [PriLOSEC] 40 mg PO BID #60 capsule. 05/16/17 cloNIDine HCL [Catapres] 0.1 mg PO TID #30 tab 08/23/17 Diazepam [Valium] 10 mg PO TID tab 08/31/17 Nicotine 14Mg/24Hr Patch [Habitrol] 1 patch TRANSDERM DAILY #7 patch 08/31/17 Ondansetron [Zofran ODT] 4 mg PO Q8HR PRN #10 tab 09/16/17 Ciprofloxacin HCl [Cipro] 500 mg PO Q12HR #14 tablet 10/14/17 Allergies Allergy/AdvReac Type Severity Reaction Status Date / Time No Known Allergies Allergy Verified 10/20/17 07:50 Review of Systems ROS Statement: Those systems with pertinent positive or pertinent negative responses have been documented in the HPI. ROS Other: All systems not noted in ROS Statement are negative. Past Medical History Past Medical History: GERD/Reflux, GI Bleed, Hyperlipidemia, Liver Disease, Pneumonia, Prostate Disorder Additional Past Medical History / Comment(s): ETOH ABUSE-PT STATES HE HAS HAD NO ALCOHOL PAST 2 MONTHS, RECURRANT PANCREATITIS, ALCOHOLIC HEPATITIS, NEUROPATHY BILATERAL FEET SINCE BACK SURGERY, NEPHROLITHIASIS, hx of CHRONIC URINARY RETENTION DUE TO BACK PROBLEMS-SELF CATHS.UTI. CHRONIC LOW BACK PAIN ( HAS STIMULATOR THAT PT STATES DOES NOT WORK. HEMATEMESIS, CHRONIC LOOSE STOOLS. History of Any Multi-Drug Resistant Organisms: None Reported Past Surgical History: Back Surgery, Cholecystectomy, Orthopedic Surgery Additional Past Surgical History / Comment(s): Bronchoscopy, BACK surgeries with TITANIUM PLATES MILTON and CAGES, KIDNEY STONES removed per pt, SPINAL CORD STIMULATOR, ISMAEL KNEE ARTHROSCOPIES, PINKY FINGER RT HAND REATTATCHED Past Anesthesia/Blood Transfusion Reactions: No Reported Reaction Past Psychological History: Anxiety, Depression Smoking Status: Current every day smoker Past Alcohol Use History: Abuse Past Drug Use History: None Reported - Past Family History Father Family Medical History: Diabetes Mellitus Additional Family Medical History / Comment(s): Mother Family Medical History: Dementia, Hyperlipidemia, Hypertension Additional Family Medical History / Comment(s): Mother is living. General Exam Limitations: no limitations General appearance: alert, in no apparent distress Head exam: Present: atraumatic, normocephalic, normal inspection Respiratory exam: Present: normal lung sounds bilaterally. Absent: respiratory distress, wheezes, rales, rhonchi, stridor Cardiovascular Exam: Present: regular rate, normal rhythm, normal heart sounds. Absent: systolic murmur, diastolic murmur, rubs, gallop, clicks GI/Abdominal exam: Present: soft, tenderness (Moderate epigastric and midabdominal tenderness), normal bowel sounds. Absent: distended, guarding, rebound, rigid Back exam: Absent: CVA tenderness (R), CVA tenderness (L) Psychiatric exam: Present: normal affect, normal mood Skin exam: Present: warm, dry, intact, normal color. Absent: rash Course Vital Signs 10/20/17 10/20/17 07:49 09:15 Temperature 98.0 F 97.8 F Pulse Rate 82 87 Respiratory 16 16 Rate Blood Pressure 122/75 148/93 O2 Sat by Pulse 98 100 Oximetry Medical Decision Making - Medical Decision Making 47-year-old male presented for abdominal pain. Patient has acute on chronic pancreatitis. Patient be admitted for IV hydration pain control. - Lab Data Result diagrams: 10/20/17 08:17 10/20/17 08:17 Lab Results 10/20/17 10/20/17 Range/Units 08:17 08:17 WBC 10.7 H (3.8-10.6) k/uL RBC 4.16 L (4.30-5.90) m/uL Hgb 12.5 L (13.0-17.5) gm/dL Hct 38.3 L (39.0-53.0) % MCV 92.1 (80.0-100.0) fL MCH 30.1 (25.0-35.0) pg MCHC 32.7 (31.0-37.0) g/dL RDW 15.4 (11.5-15.5) % Plt Count 452 H (150-450) k/uL Neutrophils % 80 % Lymphocytes % 13 % Monocytes % 4 % Eosinophils % 2 % Basophils % 0 % Neutrophils # 8.5 H (1.3-7.7) k/uL Lymphocytes # 1.3 (1.0-4.8) k/uL Monocytes # 0.5 (0-1.0) k/uL Eosinophils # 0.2 (0-0.7) k/uL Basophils # 0.0 (0-0.2) k/uL Sodium 134 L (137-145) mmol/L Potassium 3.2 L (3.5-5.1) mmol/L Chloride 97 L (98-107) mmol/L Carbon Dioxide 25 (22-30) mmol/L Anion Gap 12 mmol/L BUN 4 L (9-20) mg/dL Creatinine 0.52 L (0.66-1.25) mg/dL Est GFR (CKD-EPI)AfAm >90 (>60 ml/min/1.73 sqM) Est GFR (CKD-EPI)NonAf >90 (>60 ml/min/1.73 sqM) Glucose 92 (74-99) mg/dL Calcium 9.2 (8.4-10.2) mg/dL Total Bilirubin 0.4 (0.2-1.3) mg/dL AST 16 L (17-59) U/L ALT 28 (21-72) U/L Alkaline Phosphatase 201 H (38-126) U/L Total Protein 6.5 (6.3-8.2) g/dL Albumin 3.5 (3.5-5.0) g/dL Amylase 112 H (30-110) U/L Lipase 1671 H (23-300) U/L Serum Alcohol 32 mg/dL Disposition Clinical Impression: Acute on chronic pancreatitis, Nausea & vomiting Disposition: ADMITTED IP TO THIS [facility] Condition: Stable Referrals: Carrillo Leo Jr, [Primary Care Provider] - 1-2 days
[2017-10-20] MEDS ORDERED: ONDANSETRON 4 MG/2 ML VIAL IVP STA (09:20)
[2017-10-20] MEDS ORDERED: NALOXONE 0.4 MG/ML 1 ML VIAL IV PRN (09:21)
[2017-10-20] MEDS ORDERED: LORazepam 2 MG/ML INJ IV PRN ×3 (09:22)
[2017-10-20] MEDS: SODIUM CHLORIDE 0.9% 1,000 ML IV SCH ×2 (13:09→17:52)
[2017-10-20 13:24] LABS: Appearance,Urine Clear (Clear); Bilirubin,Urine Negative (Negative); Blood,Urine Negative (Negative); Budding Yeast,Urine Occasional /hpf; Color,Urine Yellow; Glucose,Urine (UA) Negative (Negative); Ketones,Urine Negative (Negative); Leukocyte Esterase,Urine Moderate (Negative); Mucus,Urine Rare /hpf; Nitrite,Urine Positive (Negative); Protein,Urine Negative (Negative); RBC,Urine 3 /hpf (0-5); Specific Gravity,Urine 1.005 (1.001-1.035); Urobilinogen,Urine <2.0 mg/dL (<2.0); WBC,Urine 6 /hpf (0-5)
[2017-10-20] MEDS ORDERED: Potassium Replacement Protocol 1 EACH MISC MISCELLANE PRN (13:27)
[2017-10-20] MEDS ORDERED: ALBUTEROL NEBULIZED 2.5 MG/3 ML INHALATION PRN (13:50)
[2017-10-20] MEDS: NICOTINE 14MG/24HR PATCH TRANSDERM SCH (14:13)
[2017-10-20] MEDS: buPROPion XL 150 MG TAB.ER.24H PO SCH (14:13)
[2017-10-20] MEDS: DULoxetine HCL 60 MG CAPSULE.DR PO SCH (14:13)
[2017-10-20] MEDS: POTASSIUM CHLORIDE ER 20 MEQ TAB.ER PO SCH ×2 (14:14→16:06)
[2017-10-20] MEDS: TAMSULOSIN 0.4 MG CAP.ER.24H PO SCH (14:14)
[2017-10-20] MEDS: MAGNESIUM OXIDE 400 MG TAB PO SCH (14:14)
[2017-10-20] MEDS: ONDANSETRON 4 MG/2 ML VIAL IVP PRN ×2 (14:34→21:34)
[2017-10-20] MEDS: DIAZEPAM 5 MG TAB PO SCH ×2 (15:00→22:03)
[2017-10-20] MEDS: KETOROLAC 30 MG/ML 1 ML VIAL IVP PRN ×2 (15:01→20:10)
[2017-10-20] MEDS ORDERED: DIAZEPAM 5 MG TAB PO SCH (16:00)
[2017-10-20] MEDS: GABAPENTIN 400 MG CAP PO SCH ×2 (16:06→22:03)
[2017-10-20] MEDS: cloNIDine HCL 0.1 MG TAB PO SCH ×2 (16:06→22:03)
[2017-10-20] MEDS: LIPASE 5,000/PROTEASE 17,000/AMYLASE 27,0000 PO SCH (17:50)
[2017-10-20] MEDS: THIAMINE 100 MG TAB PO SCH (17:50)
[2017-10-20] MEDS: PANTOPRAZOLE 40 MG TABLET PO SCH (17:50)
[2017-10-20] MEDS: ATORVASTATIN 10 MG TAB PO SCH (22:03)
[2017-10-20] MEDS: traZODone HCL 50 MG TAB PO SCH (22:03)
[2017-10-21] MEDS: SODIUM CHLORIDE 0.9% 1,000 ML IV SCH ×2 (04:48→16:56)
[2017-10-21] MEDS: KETOROLAC 30 MG/ML 1 ML VIAL IVP PRN (05:42)
[2017-10-21] MEDS: ONDANSETRON 4 MG/2 ML VIAL IVP PRN ×3 (05:43→21:18)
[2017-10-21 06:11] LABS: Amylase 134 U/L (30-110); Anion Gap 8 mmol/L; Blood Urea Nitrogen 9 mg/dL (9-20); Calcium 8.6 mg/dL (8.4-10.2); Carbon Dioxide 22 mmol/L (22-30); Chloride 107 mmol/L (98-107); Glucose 87 mg/dL (74-99); Lipase 1990 U/L (23-300); Sodium 137 mmol/L (137-145)
[2017-10-21 06:15] LABS: Potassium 5.4 mmol/L (3.5-5.1)
[2017-10-21] MEDS: DIAZEPAM 5 MG TAB PO SCH ×3 (06:15→21:17)
[2017-10-21] MEDS: TAMSULOSIN 0.4 MG CAP.ER.24H PO SCH (08:18)
[2017-10-21] MEDS: PANTOPRAZOLE 40 MG TABLET PO SCH ×2 (08:18→16:58)
[2017-10-21] MEDS: buPROPion XL 150 MG TAB.ER.24H PO SCH (08:18)
[2017-10-21] MEDS: cloNIDine HCL 0.1 MG TAB PO SCH ×3 (08:18→21:16)
[2017-10-21] MEDS: LIPASE 5,000/PROTEASE 17,000/AMYLASE 27,0000 PO SCH ×3 (08:18→16:56)
[2017-10-21] MEDS: NICOTINE 14MG/24HR PATCH TRANSDERM SCH (08:18)
[2017-10-21] MEDS: GABAPENTIN 400 MG CAP PO SCH ×3 (08:19→21:17)
[2017-10-21] MEDS: DULoxetine HCL 60 MG CAPSULE.DR PO SCH (08:19)
[2017-10-21] MEDS: MAGNESIUM OXIDE 400 MG TAB PO SCH (08:23)
[2017-10-21] MEDS ORDERED: PANTOPRAZOLE 40 MG/10 ML VIAL IV SCH (09:00)
[2017-10-21] MEDS: LEVOFLOXACIN 500MG-D5W PMX 500 MG in DEXTROSE/WATER 1 100ML.BAG IVPB SCH (11:25)
[2017-10-21] MEDS: ACETAMINOPHEN IV (For NPO) 1,000 MG in EMPTY BAG 1 BAG IVPB PRN ×2 (12:47→18:05)
[2017-10-21] MEDS: FOLIC ACID 1 MG TAB PO SCH (12:48)
[2017-10-21] MEDS: THIAMINE 100 MG TAB PO SCH ×2 (12:48→16:56)
[2017-10-21] MEDS ORDERED: FAMOTIDINE 20 MG/2 ML VIAL IV SCH (15:00)
[2017-10-21] MEDS: traZODone HCL 50 MG TAB PO SCH (21:17)
[2017-10-21] MEDS: SULFAMETHOX-TMP 800-160MG 1 EACH TAB PO SCH (21:17)
[2017-10-21] MEDS: ATORVASTATIN 10 MG TAB PO SCH (21:23)
[2017-10-22] MEDS: ACETAMINOPHEN IV (For NPO) 1,000 MG in EMPTY BAG 1 BAG IVPB PRN ×2 (00:09→05:59)
[2017-10-22] MEDS: SODIUM CHLORIDE 0.9% 1,000 ML IV SCH ×3 (03:12→21:52)
[2017-10-22] MEDS: ONDANSETRON 4 MG/2 ML VIAL IVP PRN ×3 (05:35→21:54)
[2017-10-22] MEDS: DIAZEPAM 5 MG TAB PO SCH ×3 (05:35→21:50)
[2017-10-22] MEDS: LIPASE 5,000/PROTEASE 17,000/AMYLASE 27,0000 PO SCH ×3 (08:12→16:18)
[2017-10-22] MEDS: PANTOPRAZOLE 40 MG TABLET PO SCH ×2 (08:13→16:19)
[2017-10-22] MEDS: buPROPion XL 150 MG TAB.ER.24H PO SCH (08:13)
[2017-10-22] MEDS: GABAPENTIN 400 MG CAP PO SCH ×3 (08:14→21:50)
[2017-10-22] MEDS: DULoxetine HCL 60 MG CAPSULE.DR PO SCH (08:14)
[2017-10-22] MEDS: cloNIDine HCL 0.1 MG TAB PO SCH ×3 (08:14→21:50)
[2017-10-22] MEDS: SULFAMETHOX-TMP 800-160MG 1 EACH TAB PO SCH ×2 (08:15→21:50)
[2017-10-22] MEDS: TAMSULOSIN 0.4 MG CAP.ER.24H PO SCH (08:15)
[2017-10-22] MEDS: NICOTINE 14MG/24HR PATCH TRANSDERM SCH (08:15)
[2017-10-22] MEDS: MAGNESIUM OXIDE 400 MG TAB PO SCH (08:15)
[2017-10-22 11:35] LABS: Basophils % (A) 0 %; Eosinophils # (A) 0.1 k/uL (0-0.7); Eosinophils % (A) 1 %; Lymphocytes % (A) 11 %; MCH 30.5 pg (25.0-35.0); MCHC 32.4 g/dL (31.0-37.0); MCV 94.1 fL (80.0-100.0); Mean Platelet Volume 7.5; Monocytes # (A) 0.4 k/uL (0-1.0); Monocytes % (A) 5 %; Neutrophils # (A) 7.6 k/uL (1.3-7.7); Neutrophils % (A) 83 %; Platelet Count 279 k/uL (150-450); RBC 3.62 m/uL (4.30-5.90); RDW 15.6 % (11.5-15.5); WBC 9.2 k/uL (3.8-10.6)
[2017-10-22 11:47] LABS: ALT 25 U/L (21-72); AST 13 U/L (17-59); Albumin 2.4 g/dL (3.5-5.0); Alkaline Phosphatase 134 U/L (38-126); Amylase 167 U/L (30-110); Anion Gap 11 mmol/L; Blood Urea Nitrogen 6 mg/dL (9-20); Calcium 8.2 mg/dL (8.4-10.2); Carbon Dioxide 21 mmol/L (22-30); Chloride 104 mmol/L (98-107); Glucose 92 mg/dL (74-99); Lipase 1923 U/L (23-300); Potassium 3.9 mmol/L (3.5-5.1); Sodium 136 mmol/L (137-145); Total Bilirubin 0.5 mg/dL (0.2-1.3); Total Protein 4.9 g/dL (6.3-8.2)
[2017-10-22] MEDS: FOLIC ACID 1 MG TAB PO SCH (12:00)
[2017-10-22] MEDS: THIAMINE 100 MG TAB PO SCH ×2 (12:00→16:18)
[2017-10-22] MEDS: LEVOFLOXACIN 500MG-D5W PMX 500 MG in DEXTROSE/WATER 1 100ML.BAG IVPB SCH (12:00)
[2017-10-22] MEDS: Acetaminophen-Codeine 300-30mg TAB PO SCH ×3 (12:02→21:51)
[2017-10-22] MEDS: KETOROLAC 30 MG/ML 1 ML VIAL IVP SCH ×2 (12:04→18:36)
--- NOTE | 2017-10-22 13:15 | P.PN ---
Subjective Progress Note Date: 10/22/17 47-year-old male who presented to the emergency room on 10/20/2017 with a chief complaint of abdominal pain. The patient has a history of chronic pancreatitis. The patient does report drinking alcohol prior to admission. Serum alcohol was 32. Patient remains nothing by mouth. He continues to complain of significant abdominal pain that is generalized in all 4 quadrants. He complains of nausea, but denies episodes of emesis. Lab work from this morning is currently pending. Vital signs remain stable. Objective - Vital Signs Vital signs: Vital Signs Temp 97.8 F 10/22/17 05:34 Pulse 71 10/22/17 05:34 Resp 18 10/22/17 05:34 BP 155/95 10/22/17 05:34 Pulse Ox 98 10/22/17 05:34 Intake & Output 10/21/17 10/22/17 10/22/17 18:59 06:59 18:59 Intake Total 900 1700 Output Total 675 3800 Balance 225 -2100 Intake: Intake, IV Titration 900 1700 Amount ACETAMINOPHEN IV (For NPO 100 100 ) 1,000 mg In Empty Bag 1 bag @ 400 mls/hr IVPB Q6HR PRN Rx#:[id number] Levofloxacin 500Mg-D5w 100 Pmx 500 mg In Dextrose/ Water 1 100ml.bag @ 100 mls/hr IVPB Q24H JANE Rx#: [id number] Sodium Chloride 0.9% 1, 700 1600 000 ml @ 100 mls/hr IV . Q10H JANE Rx#:[id number] Output: Urine 675 3800 Straight 675 1900 Other: Voiding Method Urinal Urinal Urinal Self-Catheterization Self-Catheterization Self-Catheterization - Constitutional Constitutional Comment(s): 47-year-old male General appearance: Present: average body habitus - EENT Eyes: Present: EOMI, PERRLA ENT: Present: hearing grossly normal - Neck Neck: Present: normal ROM - Respiratory Respiratory: bilateral: CTA - Cardiovascular Rhythm: regular Heart sounds: normal: S1, S2 - Gastrointestinal Gastrointestinal Comment(s): Generalized pain and tenderness of all 4 quadrants upon palpation General gastrointestinal: Present: normal bowel sounds, soft, tenderness. Absent: distended - Integumentary Integumentary: Present: normal. Absent: cellulitis, cyanotic, jaundiced, rash - Neurologic Neurologic: Present: CNII-XII intact - Musculoskeletal Musculoskeletal: Present: strength equal bilaterally - Psychiatric Psychiatric: Present: A&O x's 3 - Labs CBC & Chem 7: 10/22/17 11:07 10/21/17 05:46 Labs: Abnormal Lab Results - Last 24 Hours (Table) 10/22/17 Range/Units 11:07 RBC 3.62 L (4.30-5.90) m/uL Hgb 11.0 L (13.0-17.5) gm/dL Hct 34.0 L (39.0-53.0) % RDW 15.6 H (11.5-15.5) % Assessment and Plan Plan: ASSESSMENT: Acute on chronic alcoholic pancreatitis Abdominal pain and nausea, secondary to above History of alcohol abuse Multiple recent hospitalization secondary to pancreatitis Chronic low back pain Anxiety, unspecified Depression, unspecified Nicotine dependence PLAN: Continue IV fluids Monitor pancreatic enzymes. Repeat daily Pain control. Will resume home medication of Tylenol with codeine. Toradol when necessary for breakthrough pain Continue NPO. When abdominal pain improves, will begin clear liquid diet Home meds as appropriate GI prophylaxis: Protonix 40 mg PO BID DVT prophylaxis: SCDs to bilateral lower extremities Monitor vital signs and address as appropriate Discharge planning: Patient to return home when stable Further recommendations pending patient's course Nurse practitioner note has been reviewed by physician. Signing provider agrees with the documented findings, assessment, and plan of care.
[2017-10-22] MEDS: FAMOTIDINE 20 MG/2 ML VIAL IV PRN (15:38)
[2017-10-22] MEDS: ATORVASTATIN 10 MG TAB PO SCH (21:50)
[2017-10-22] MEDS: traZODone HCL 50 MG TAB PO SCH (21:50)
[2017-10-23] MEDS: KETOROLAC 30 MG/ML 1 ML VIAL IVP SCH ×4 (00:32→18:38)
[2017-10-23] MEDS: DIAZEPAM 5 MG TAB PO SCH ×3 (06:09→21:45)
[2017-10-23] MEDS: ONDANSETRON 4 MG/2 ML VIAL IVP PRN ×2 (06:15→15:26)
[2017-10-23] MEDS: LIPASE 5,000/PROTEASE 17,000/AMYLASE 27,0000 PO SCH ×3 (09:28→18:37)
[2017-10-23] MEDS: SODIUM CHLORIDE 0.9% 1,000 ML IV SCH ×2 (09:29→11:26)
[2017-10-23] MEDS: PANTOPRAZOLE 40 MG TABLET PO SCH ×2 (09:29→18:38)
[2017-10-23] MEDS: Acetaminophen-Codeine 300-30mg TAB PO SCH ×3 (09:31→21:44)
[2017-10-23] MEDS: buPROPion XL 150 MG TAB.ER.24H PO SCH (09:31)
[2017-10-23] MEDS: cloNIDine HCL 0.1 MG TAB PO SCH ×3 (09:32→21:45)
[2017-10-23] MEDS: DULoxetine HCL 60 MG CAPSULE.DR PO SCH (09:32)
[2017-10-23] MEDS: GABAPENTIN 400 MG CAP PO SCH ×3 (09:32→21:45)
[2017-10-23] MEDS: NICOTINE 14MG/24HR PATCH TRANSDERM SCH (09:33)
[2017-10-23] MEDS: MAGNESIUM OXIDE 400 MG TAB PO SCH (09:33)
[2017-10-23] MEDS: SULFAMETHOX-TMP 800-160MG 1 EACH TAB PO SCH ×2 (09:33→21:45)
[2017-10-23] MEDS: TAMSULOSIN 0.4 MG CAP.ER.24H PO SCH (09:33)
[2017-10-23 10:06] LABS: Basophils % (A) 0 %; Eosinophils # (A) 0.1 k/uL (0-0.7); Eosinophils % (A) 1 %; HCT 33.4 % (39.0-53.0); HGB 10.8 gm/dL (13.0-17.5); Lymphocytes # (A) 0.6 k/uL (1.0-4.8); Lymphocytes % (A) 7 %; MCH 30.3 pg (25.0-35.0); MCHC 32.3 g/dL (31.0-37.0); MCV 93.8 fL (80.0-100.0); Mean Platelet Volume 7.4; Monocytes # (A) 0.4 k/uL (0-1.0); Monocytes % (A) 5 %; Neutrophils # (A) 7.7 k/uL (1.3-7.7); Neutrophils % (A) 87 %; Platelet Count 250 k/uL (150-450); RBC 3.55 m/uL (4.30-5.90); RDW 15.4 % (11.5-15.5); WBC 8.9 k/uL (3.8-10.6)
[2017-10-23 10:12] LABS: ALT 59 U/L (21-72); AST 109 U/L (17-59); Albumin 2.6 g/dL (3.5-5.0); Alkaline Phosphatase 278 U/L (38-126); Amylase 83 U/L (30-110); Anion Gap 10 mmol/L; Blood Urea Nitrogen 4 mg/dL (9-20); Calcium 8.4 mg/dL (8.4-10.2); Carbon Dioxide 22 mmol/L (22-30); Chloride 106 mmol/L (98-107); Glucose 94 mg/dL (74-99); Lipase 463 U/L (23-300); Potassium 3.8 mmol/L (3.5-5.1); Sodium 138 mmol/L (137-145); Total Bilirubin 0.5 mg/dL (0.2-1.3); Total Protein 5.1 g/dL (6.3-8.2)
--- NOTE | 2017-10-23 10:30 | P.PN ---
Subjective Progress Note Date: 10/23/17 10/22/2017 47-year-old male who presented to the emergency room on 10/20/2017 with a chief complaint of abdominal pain. The patient has a history of chronic pancreatitis. The patient does report drinking alcohol prior to admission. Serum alcohol was 32. Patient remains nothing by mouth. He continues to complain of significant abdominal pain that is generalized in all 4 quadrants. He complains of nausea, but denies episodes of emesis. Lab work from this morning is currently pending. Vital signs remain stable. 10/23/2017 Patient seen and examined at the bedside on rounds with Dr. Trejo. Patient continues to complain of significant abdominal pain. He is currently rating it a 9 out of 10, which he states has improved since yesterday. He currently denies nausea or vomiting. He states he is hungry and requesting to be started on a diet. IV fluids continue to infuse at 100 mL an hour. Repeat lab work from this morning is currently pending. Objective - Vital Signs Vital signs: Vital Signs Temp 97.0 F L 10/23/17 06:13 Pulse 78 10/23/17 06:13 Resp 18 10/23/17 06:13 BP 100/69 10/23/17 06:13 Pulse Ox 94 L 10/23/17 06:13 Intake & Output 10/22/17 10/23/17 10/23/17 18:59 06:59 18:59 Other: Voiding Method Urinal Urinal Self-Catheterization Self-Catheterization # Voids 1 1 - Constitutional Constitutional Comment(s): 47 year old male General appearance: Present: average body habitus, cooperative. Absent: no acute distress - EENT Eyes: Present: EOMI, PERRLA ENT: Present: hearing grossly normal - Neck Neck: Present: normal ROM. Absent: rigidity, stridor - Respiratory Respiratory: bilateral: CTA - Cardiovascular Rhythm: regular Heart sounds: normal: S1, S2 - Gastrointestinal General gastrointestinal: Present: normal bowel sounds, soft. Absent: distended - Integumentary Integumentary: Present: normal. Absent: cellulitis, cyanotic, jaundiced - Neurologic Neurologic: Present: CNII-XII intact - Musculoskeletal Musculoskeletal: Present: strength equal bilaterally - Psychiatric Psychiatric: Present: A&O x's 3 - Labs CBC & Chem 7: 10/23/17 09:32 10/23/17 09:32 Labs: Abnormal Lab Results - Last 24 Hours (Table) 10/22/17 10/22/17 10/23/17 Range/Units 11:07 11:07 09:32 RBC 3.62 L 3.55 L (4.30-5.90) m/uL Hgb 11.0 L 10.8 L (13.0-17.5) gm/dL Hct 34.0 L 33.4 L (39.0-53.0) % RDW 15.6 H (11.5-15.5) % Lymphocytes # 0.6 L (1.0-4.8) k/uL Sodium 136 L (137-145) mmol/L Carbon Dioxide 21 L (22-30) mmol/L BUN 6 L (9-20) mg/dL Creatinine 0.60 L (0.66-1.25) mg/dL Calcium 8.2 L (8.4-10.2) mg/dL AST 13 L (17-59) U/L Alkaline Phosphatase 134 H (38-126) U/L Total Protein 4.9 L (6.3-8.2) g/dL Albumin 2.4 L (3.5-5.0) g/dL Amylase 167 H (30-110) U/L Lipase 1923 H (23-300) U/L 10/23/17 Range/Units 09:32 RBC (4.30-5.90) m/uL Hgb (13.0-17.5) gm/dL Hct (39.0-53.0) % RDW (11.5-15.5) % Lymphocytes # (1.0-4.8) k/uL Sodium (137-145) mmol/L Carbon Dioxide (22-30) mmol/L BUN 4 L (9-20) mg/dL Creatinine 0.61 L (0.66-1.25) mg/dL Calcium (8.4-10.2) mg/dL AST 109 H (17-59) U/L Alkaline Phosphatase 278 H (38-126) U/L Total Protein 5.1 L (6.3-8.2) g/dL Albumin 2.6 L (3.5-5.0) g/dL Amylase (30-110) U/L Lipase 463 H (23-300) U/L Assessment and Plan Plan: ASSESSMENT: Acute on chronic alcoholic pancreatitis Abdominal pain and nausea, secondary to above History of alcohol abuse Multiple recent hospitalization secondary to pancreatitis Chronic low back pain Anxiety, unspecified Depression, unspecified Nicotine dependence PLAN: Continue IV fluids Monitor pancreatic enzymes. Repeat daily Pain control. Will resume home medication of Tylenol with codeine. Toradol when necessary for breakthrough pain Will begin clear liquid. Advance as tolerated Consult GI for evaluation Patient encouraged to abstain from alcohol Home meds as appropriate GI prophylaxis: Protonix 40 mg PO BID DVT prophylaxis: SCDs to bilateral lower extremities Monitor vital signs and address as appropriate Discharge planning: Patient to return home when stable Further recommendations pending patient's course Nurse practitioner note has been reviewed by physician. Signing provider agrees with the documented findings, assessment, and plan of care.
[2017-10-23] MEDS: FOLIC ACID 1 MG TAB PO SCH (11:31)
[2017-10-23] MEDS: THIAMINE 100 MG TAB PO SCH ×2 (11:38→18:37)
[2017-10-23] MEDS: FAMOTIDINE 20 MG/2 ML VIAL IV PRN (11:41)
[2017-10-23] MEDS: LEVOFLOXACIN 500MG-D5W PMX 500 MG in DEXTROSE/WATER 1 100ML.BAG IVPB SCH (12:52)
--- NOTE | 2017-10-23 14:12 | P.CONS ---
History of Present Illness - Reason for Consult Consult date: 10/23/17 Pancreatitis Requesting physician: Kelvin Trejo - History of Present Illness 47-year-old male with a history chronic relapsing alcohol pancreatitis admitted with acute upper midepigastric abdominal pain elevated pancreatic enzymes actively drinking alcohol consistent with acute on chronic relapsing alcohol pancreatitis. Serum alcohol level 32. Denies fever chills hematemesis hematochezia melena. Hemoglobin 10.8. White count 8.9. Platelet 250. Admission lipase 1671 presently 463. Amylase 112 presently 83. Total bilirubin 0.4-0.5. AST 16- 109. ALT 25-59. AP 134-278. BUN 4. Creatinine 0.6. Review of Systems RConstitutional: Denies fever, chills, sweats, weight gain, or loss. HEENT: Negative for migraines, blurred vision or loss, earaches, drainage, tinnitus, oral mucosal lesions, dysphagia, or odynophagia. Cardiac: Negative for chest pain, arrhythmias, or palpitation. Respiratory: Negative for shortness of breath, hemoptysis, cough, or sputum production. Gastrointestinal: See HPI for pertinent findings. Genitourinary: Negative for hematuria, urgency, frequency, polyuria, dysuria, or penile discharge. Musculoskeletal: Negative for muscle aches, swelling, arthritis, and arthralgias. Neurologic: Negative for stroke or TIA. Endocrine: Negative for thyroid problems. Skin: Negative for rash or itching. Psychiatric: Negative history for depression and anxietyale Past Medical History Past Medical History: GERD/Reflux, GI Bleed, Hyperlipidemia, Liver Disease, Pneumonia, Prostate Disorder Additional Past Medical History / Comment(s): ETOH ABUSE-PT STATES HE HAS HAD NO ALCOHOL PAST 2 MONTHS, RECURRANT PANCREATITIS, ALCOHOLIC HEPATITIS, NEUROPATHY BILATERAL FEET SINCE BACK SURGERY, NEPHROLITHIASIS, hx of CHRONIC URINARY RETENTION DUE TO BACK PROBLEMS-SELF CATHS.UTI. CHRONIC LOW BACK PAIN ( HAS STIMULATOR THAT PT STATES DOES NOT WORK. HEMATEMESIS, CHRONIC LOOSE STOOLS. History of Any Multi-Drug Resistant Organisms: None Reported Past Surgical History: Back Surgery, Cholecystectomy, Orthopedic Surgery Additional Past Surgical History / Comment(s): Bronchoscopy, BACK surgeries with TITANIUM PLATES MILTON and CAGES, KIDNEY STONES removed per pt, SPINAL CORD STIMULATOR, ISMAEL KNEE ARTHROSCOPIES, PINKY FINGER RT HAND REATTATCHED Past Anesthesia/Blood Transfusion Reactions: No Reported Reaction Past Psychological History: Anxiety, Depression Additional Psychological History / Comment(s): PT LIVES AT HOME WITH in a 2 story home that has 3 porch steps/7 steps to 2nd floor.. 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 NO SERVICE.. uses either walker or w/c also has shower chair and raised toilet seat. He does not drive, his can drive. Smoking Status: Current every day smoker Past Alcohol Use History: Abuse Additional Past Alcohol Use History / Comment(s): Smokes 1-2 packs per day; Patient reports hx of alcoholism and quit drinking 2 months ago. Past Drug Use History: None Reported Additional Drug Use History / Comment(s): Patient reports that he has not used Marijuana in over 12 months. - Past Family History Father Family Medical History: Diabetes Mellitus Additional Family Medical History / Comment(s): Mother Family Medical History: Dementia, Hyperlipidemia, Hypertension Additional Family Medical History / Comment(s): Mother is living. Medications and Allergies Home Medications Medication Instructions Recorded Confirmed Type Folic Acid 1 mg PO DAILY #30 tablet 07/15/15 10/20/17 Rx Atorvastatin [Lipitor] 10 mg PO HS 09/27/15 10/20/17 History Albuterol Inhaler [Ventolin Hfa 2 puff INHALATION RT-Q4H PRN 03/01/17 10/20/17 History Inhaler] traZODone HCL 50 mg PO HS 04/04/17 10/20/17 History Omeprazole [PriLOSEC] 40 mg PO BID #60 capsule. 05/16/17 10/20/17 Rx Gabapentin [Neurontin] 400 mg PO TID 07/18/17 10/20/17 History cloNIDine HCL [Catapres] 0.1 mg PO TID #30 tab 08/23/17 10/20/17 Rx Acetaminophen-Codeine 300-30mg 1 tab PO TID 09/10/17 10/20/17 History [Tylenol w/codeine #3] DULoxetine HCL [Cymbalta] 60 mg PO DAILY 09/18/17 10/20/17 History Magnesium Oxide [Mag-Ox] 200 mg PO DAILY 09/18/17 10/20/17 History Tamsulosin HCl [Flomax] 0.4 mg PO DAILY 09/18/17 10/20/17 History Diazepam [Valium] 5 mg PO TID 10/20/17 10/20/17 History Lipase/Protease/Amylase [Creon Dr 2 cap PO TID-W/MEALS 10/20/17 10/20/17 History 24,000 Units Capsule] Nicotine 21Mg/24Hr Patch [Habitrol 1 patch TRANSDERM DAILY 10/20/17 10/20/17 History 21Mg/24Hr Patch] buPROPion XL [Wellbutrin Xl] 150 mg PO DAILY 10/20/17 10/20/17 History Allergies Allergy/AdvReac Type Severity Reaction Status Date / Time No Known Allergies Allergy Verified 10/20/17 11:59 Physical Exam Vitals: Vital Signs Temp Pulse Resp BP Pulse Ox 10/23/17 06:13 97.0 F L 78 18 100/69 94 L 10/22/17 23:00 98.3 F 74 16 151/86 96 10/22/17 14:22 98.5 F 63 20 145/89 99 Intake and Output 10/22/17 10/23/17 10/23/17 22:59 06:59 14:59 Other: Voiding Method Urinal Toilet Self-Catheterization Incontinent # Voids 1 1 General appearance: The patient is alert, oriented, in no acute distress. HET: Head is normocephalic and atraumatic. Pupils are equal and reactive. Oropharynx is clear without lesions. Neck: Supple without lymphadenopathy. Trachea midline. Heart: S1 S2. Regular rate and rhythm. Lungs: No crackles or wheezes are heard. Abdomen: Soft, mild midepigastric tenderness, nondistended with bowel sounds. No peritoneal signs. No palpable organomegaly or masses. Extremities: Normal skin color and turgor. No cyanosis, rash, ulceration, clubbing, or edema. Radial and pedal pulses are 2/4 bilaterally. Neurological: No focal deficits. Strength and sensation are grossly intact. Results CBC & Chem 7: 10/23/17 09:32 10/23/17 09:32 Labs: Abnormal Lab Results - Last 24 Hours (Table) 10/23/17 10/23/17 Range/Units 09:32 09:32 RBC 3.55 L (4.30-5.90) m/uL Hgb 10.8 L (13.0-17.5) gm/dL Hct 33.4 L (39.0-53.0) % Lymphocytes # 0.6 L (1.0-4.8) k/uL BUN 4 L (9-20) mg/dL Creatinine 0.61 L (0.66-1.25) mg/dL AST 109 H (17-59) U/L Alkaline Phosphatase 278 H (38-126) U/L Total Protein 5.1 L (6.3-8.2) g/dL Albumin 2.6 L (3.5-5.0) g/dL Lipase 463 H (23-300) U/L Assessment and Plan (1) Acute on chronic pancreatitis Narrative/Plan: Secondary to alcohol abuse Current Visit: Yes Status: Acute Code(s): K85.90 - ACUTE PANCREATITIS WITHOUT NECROSIS OR INFECTION, UNSP; K86.1 - OTHER CHRONIC PANCREATITIS SNOMED Code(s): 306889703 (2) ETOH abuse Current Visit: Yes Status: Acute Code(s): F10.10 - ALCOHOL ABUSE, UNCOMPLICATED SNOMED Code(s): 13339527 Plan: 1. Pancreatic enzymes are improving abdominal pain as well patient is requesting diet advanced therefore will allow low-fat diet for dinner. Alcohol abstinence was strongly advised. Tertiary center evaluation not recommended at this time patient needs to focus on alcohol abstinence. 2. Continue supportive measures. Discharge per medicine. Follow up in GI office in 3-4 weeks for reevaluation. Thank you for this kind referral and the opportunity to participate in the care of your patient. This consultation was discussed with Dr. Kellogg. The impression and plan of care have been directed as dictated.
[2017-10-23] MEDS: traZODone HCL 50 MG TAB PO SCH (21:44)
[2017-10-23] MEDS: ATORVASTATIN 10 MG TAB PO SCH (21:45)
[2017-10-23 23:29] VITALS: RESP 18
[2017-10-24] MEDS: KETOROLAC 30 MG/ML 1 ML VIAL IVP SCH ×3 (00:12→12:27)
[2017-10-24] MEDS: ONDANSETRON 4 MG/2 ML VIAL IVP PRN (00:12)
[2017-10-24] MEDS: DIAZEPAM 5 MG TAB PO SCH ×2 (06:12→13:29)
[2017-10-24] MEDS: SODIUM CHLORIDE 0.9% 1,000 ML IV SCH ×2 (06:14→10:29)
[2017-10-24 07:00] VITALS: BP 154/97; PULSE 76; TEMP 98.3
[2017-10-24] MEDS: LIPASE 5,000/PROTEASE 17,000/AMYLASE 27,0000 PO SCH ×2 (07:52→12:26)
[2017-10-24] MEDS: SULFAMETHOX-TMP 800-160MG 1 EACH TAB PO SCH (07:52)
[2017-10-24] MEDS: TAMSULOSIN 0.4 MG CAP.ER.24H PO SCH (07:53)
[2017-10-24] MEDS: GABAPENTIN 400 MG CAP PO SCH (07:53)
[2017-10-24] MEDS: MAGNESIUM OXIDE 400 MG TAB PO SCH (07:53)
[2017-10-24] MEDS: DULoxetine HCL 60 MG CAPSULE.DR PO SCH (07:53)
[2017-10-24] MEDS: Acetaminophen-Codeine 300-30mg TAB PO SCH (07:54)
[2017-10-24] MEDS: cloNIDine HCL 0.1 MG TAB PO SCH (07:55)
[2017-10-24] MEDS: PANTOPRAZOLE 40 MG TABLET PO SCH (07:55)
[2017-10-24 10:06] LABS: Basophils % (A) 0 %; Eosinophils # (A) 0.1 k/uL (0-0.7); Eosinophils % (A) 2 %; HCT 32.4 % (39.0-53.0); HGB 10.2 gm/dL (13.0-17.5); Lymphocytes # (A) 0.7 k/uL (1.0-4.8); Lymphocytes % (A) 10 %; MCH 29.9 pg (25.0-35.0); MCHC 31.5 g/dL (31.0-37.0); MCV 94.8 fL (80.0-100.0); Mean Platelet Volume 7.8; Monocytes # (A) 0.3 k/uL (0-1.0); Monocytes % (A) 5 %; Neutrophils # (A) 5.5 k/uL (1.3-7.7); Neutrophils % (A) 82 %; Platelet Count 217 k/uL (150-450); RBC 3.42 m/uL (4.30-5.90); RDW 15.4 % (11.5-15.5); WBC 6.7 k/uL (3.8-10.6)
[2017-10-24] MEDS: NICOTINE 14MG/24HR PATCH TRANSDERM SCH (10:31)
[2017-10-24 10:32] LABS: ALT 47 U/L (21-72); AST 42 U/L (17-59); Albumin 2.5 g/dL (3.5-5.0); Alkaline Phosphatase 258 U/L (38-126); Amylase 45 U/L (30-110); Anion Gap 10 mmol/L; Blood Urea Nitrogen 4 mg/dL (9-20); Calcium 8.3 mg/dL (8.4-10.2); Carbon Dioxide 20 mmol/L (22-30); Chloride 106 mmol/L (98-107); Glucose 127 mg/dL (74-99); Lipase 272 U/L (23-300); Potassium 3.9 mmol/L (3.5-5.1); Sodium 136 mmol/L (137-145); Total Bilirubin 0.3 mg/dL (0.2-1.3); Total Protein 5.1 g/dL (6.3-8.2)
[2017-10-24] MEDS: buPROPion XL 150 MG TAB.ER.24H PO SCH (10:32)
--- NOTE | 2017-10-24 10:52 | P.PN ---
Subjective Progress Note Date: 10/24/17 10/22/2017 47-year-old male who presented to the emergency room on 10/20/2017 with a chief complaint of abdominal pain. The patient has a history of chronic pancreatitis. The patient does report drinking alcohol prior to admission. Serum alcohol was 32. Patient remains nothing by mouth. He continues to complain of significant abdominal pain that is generalized in all 4 quadrants. He complains of nausea, but denies episodes of emesis. Lab work from this morning is currently pending. Vital signs remain stable. 10/23/2017 Patient seen and examined at the bedside on rounds with Dr. Trejo. Patient continues to complain of significant abdominal pain. He is currently rating it a 9 out of 10, which he states has improved since yesterday. He currently denies nausea or vomiting. He states he is hungry and requesting to be started on a diet. IV fluids continue to infuse at 100 mL an hour. Repeat lab work from this morning is currently pending. 10/24/2017 Patient seen and examined at the bedside. Patient states his abdominal pain has improved. He states he is tolerating PO intake. He reports eating ice cream yesterday that made him nauseous and he states he required Zofran. Amylase 45. Lipase 272. Denies chest pain or pressure. Denies shortness of breath. IV infusing at 100cc/hr. Vital signs remain stable. Objective - Vital Signs Vital signs: Vital Signs Temp 98.3 F 10/24/17 06:30 Pulse 76 10/24/17 06:30 Resp 18 10/24/17 06:30 BP 154/97 10/24/17 06:30 Pulse Ox 96 10/24/17 06:30 Intake & Output 10/23/17 10/24/17 10/24/17 18:59 06:59 18:59 Intake Total 900 1300 Output Total 178 Balance 900 1300 -178 Intake: Intake, IV Titration 900 Amount Sodium Chloride 0.9% 1, 900 000 ml @ 100 mls/hr IV . Q10H JANE Rx#:[id number] Oral 1300 Output: Post Void Residual 178 Other: Voiding Method Toilet Toilet Incontinent Urinal # Voids 2 4 1 - Constitutional Constitutional Comment(s): 47-year-old male General appearance: Present: cooperative, no acute distress - EENT Eyes: Present: EOMI, PERRLA ENT: Present: hearing grossly normal - Neck Neck: Present: normal ROM - Respiratory Respiratory: bilateral: CTA, negative: rales, rhonchi, wheezing - Cardiovascular Rhythm: regular Heart sounds: normal: S1, S2 - Gastrointestinal General gastrointestinal: Present: normal bowel sounds, soft - Integumentary Integumentary: Present: normal. Absent: cellulitis, cyanotic, jaundiced - Neurologic Neurologic: Present: CNII-XII intact - Musculoskeletal Musculoskeletal: Present: generalized weakness, strength equal bilaterally - Psychiatric Psychiatric: Present: A&O x's 3, appropriate affect - Labs CBC & Chem 7: 10/24/17 09:08 10/24/17 09:08 Labs: Abnormal Lab Results - Last 24 Hours (Table) 10/24/17 10/24/17 Range/Units 09:08 09:08 RBC 3.42 L (4.30-5.90) m/uL Hgb 10.2 L (13.0-17.5) gm/dL Hct 32.4 L (39.0-53.0) % Lymphocytes # 0.7 L (1.0-4.8) k/uL Sodium 136 L (137-145) mmol/L Carbon Dioxide 20 L (22-30) mmol/L BUN 4 L (9-20) mg/dL Creatinine 0.58 L (0.66-1.25) mg/dL Glucose 127 H (74-99) mg/dL Calcium 8.3 L (8.4-10.2) mg/dL Alkaline Phosphatase 258 H (38-126) U/L Total Protein 5.1 L (6.3-8.2) g/dL Albumin 2.5 L (3.5-5.0) g/dL Assessment and Plan Plan: ASSESSMENT: Acute on chronic alcoholic pancreatitis Abdominal pain and nausea, secondary to above Urinary tract infection, present on admission History of alcohol abuse Multiple recent hospitalization secondary to pancreatitis Chronic low back pain Anxiety, unspecified Depression, unspecified Nicotine dependence PLAN: GI on consult. Appreciate recommendations and input Continue IV fluids Pain control. Will resume home medication of Tylenol with codeine. Toradol when necessary for breakthrough pain Will begin clear liquid. Advance as tolerated Patient encouraged to abstain from alcohol Home meds as appropriate GI prophylaxis: Protonix 40 mg PO BID DVT prophylaxis: SCDs to bilateral lower extremities Monitor vital signs and address as appropriate Discharge planning: Patient to return home when stable Further recommendations pending patient's course Nurse practitioner note has been reviewed by physician. Signing provider agrees with the documented findings, assessment, and plan of care.
--- NOTE | 2017-10-24 12:18 | P.PN ---
Subjective Progress Note Date: 10/24/17 Principal diagnosis: acute on chronic pancreatitis Afebrile. Mild abdominal pain but improving. Tolerating advanced diet. Pancreatic enzymes improved. Objective - Vital Signs Vital signs: Vital Signs Temp 98.3 F 10/24/17 06:30 Pulse 76 10/24/17 06:30 Resp 18 10/24/17 06:30 BP 154/97 10/24/17 06:30 Pulse Ox 96 10/24/17 06:30 Intake & Output 10/23/17 10/24/17 10/24/17 18:59 06:59 18:59 Intake Total 900 1300 Output Total 178 Balance 900 1300 -178 Intake: Intake, IV Titration 900 Amount Sodium Chloride 0.9% 1, 900 000 ml @ 100 mls/hr IV . Q10H JANE Rx#:[id number] Oral 1300 Output: Post Void Residual 178 Other: Voiding Method Toilet Toilet Toilet Incontinent Urinal Urinal # Voids 2 4 1 - Labs CBC & Chem 7: 10/24/17 09:08 10/24/17 09:08 Labs: Abnormal Lab Results - Last 24 Hours (Table) 10/24/17 10/24/17 Range/Units 09:08 09:08 RBC 3.42 L (4.30-5.90) m/uL Hgb 10.2 L (13.0-17.5) gm/dL Hct 32.4 L (39.0-53.0) % Lymphocytes # 0.7 L (1.0-4.8) k/uL Sodium 136 L (137-145) mmol/L Carbon Dioxide 20 L (22-30) mmol/L BUN 4 L (9-20) mg/dL Creatinine 0.58 L (0.66-1.25) mg/dL Glucose 127 H (74-99) mg/dL Calcium 8.3 L (8.4-10.2) mg/dL Alkaline Phosphatase 258 H (38-126) U/L Total Protein 5.1 L (6.3-8.2) g/dL Albumin 2.5 L (3.5-5.0) g/dL Assessment and Plan (1) Acute on chronic pancreatitis Narrative/Plan: Secondary to alcohol abuse Current Visit: Yes Status: Acute Code(s): K85.90 - ACUTE PANCREATITIS WITHOUT NECROSIS OR INFECTION, UNSP; K86.1 - OTHER CHRONIC PANCREATITIS SNOMED Code(s): 403693667 (2) ETOH abuse Current Visit: Yes Status: Acute Code(s): F10.10 - ALCOHOL ABUSE, UNCOMPLICATED SNOMED Code(s): 45969903 Plan: 1. Pancreatic enzymes are improving abdominal pain as well. Alcohol abstinence was strongly advised. 2. Continue supportive measures. Discharge per medicine. Follow up in GI office in 3-4 weeks for reevaluation. Assessment and plan of care discussed with Dr. Kellogg.
[2017-10-24] MEDS: LEVOFLOXACIN 500MG-D5W PMX 500 MG in DEXTROSE/WATER 1 100ML.BAG IVPB SCH (12:26)
[2017-10-24] MEDS: THIAMINE 100 MG TAB PO SCH (12:28)
[2017-10-24] MEDS: FOLIC ACID 1 MG TAB PO SCH (12:28)
--- NOTE | 2017-10-24 12:50 | P.DS ---
Providers Date of admission: 10/20/17 10:05 Expected date of discharge: 10/24/17 Attending physician: Carrillo Leo Consults: 10/23/17 09:57 Consult Physician Routine Consulting Provider: Consuelo Kellogg Consult Reason/Comments: pancreatitis Do you want consulting provider notified?: Yes Primary care physician: [facility] Course: 10/22/2017 47-year-old male who presented to the emergency room on 10/20/2017 with a chief complaint of abdominal pain. The patient has a history of chronic pancreatitis. The patient does report drinking alcohol prior to admission. Serum alcohol was 32. Patient remains nothing by mouth. He continues to complain of significant abdominal pain that is generalized in all 4 quadrants. He complains of nausea, but denies episodes of emesis. Lab work from this morning is currently pending. Vital signs remain stable. 10/23/2017 Patient seen and examined at the bedside on rounds with Dr. Trejo. Patient continues to complain of significant abdominal pain. He is currently rating it a 9 out of 10, which he states has improved since yesterday. He currently denies nausea or vomiting. He states he is hungry and requesting to be started on a diet. IV fluids continue to infuse at 100 mL an hour. Repeat lab work from this morning is currently pending. 10/24/2017 Patient seen and examined at the bedside. Patient states his abdominal pain has improved. He states he is tolerating PO intake. He reports eating ice cream yesterday that made him nauseous and he states he required Zofran. Amylase 45. Lipase 272. Denies chest pain or pressure. Denies shortness of breath. IV infusing at 100cc/hr. Vital signs remain stable. The patient was deemed stable for discharge per Dr. Trejo. He is to follow up on an outpatient basis with his primary care physician and Dr. Kellogg. He was advised to abstain from alcohol. A prescription for Levaquin 3 days was sent patient preferred pharmacy at the time of discharge. DISCHARGE DIAGNOSIS: Acute on chronic alcoholic pancreatitis Abdominal pain and nausea, secondary to above Urinary tract infection, present on admission History of alcohol abuse Multiple recent hospitalization secondary to pancreatitis Chronic low back pain Anxiety, unspecified Depression, unspecified Nicotine dependence Nurse practitioner note has been reviewed by physician. Signing provider agrees with the documented findings, assessment, and plan of care. Patient Condition at Discharge: Stable Plan - Discharge Summary Discharge Rx Participant: No New Discharge Prescriptions: New Levofloxacin [Levaquin] 500 mg PO DAILY 3 Days #3 tab Continue Folic Acid 1 mg PO DAILY #30 tablet Atorvastatin [Lipitor] 10 mg PO HS Albuterol Inhaler [Ventolin Hfa Inhaler] 2 puff INHALATION RT-Q4H PRN PRN Reason: Shortness Of Breath traZODone HCL 50 mg PO HS Omeprazole [PriLOSEC] 40 mg PO BID #60 capsule. Gabapentin [Neurontin] 400 mg PO TID cloNIDine HCL [Catapres] 0.1 mg PO TID #30 tab Acetaminophen-Codeine 300-30mg [Tylenol w/codeine #3] 1 tab PO TID DULoxetine HCL [Cymbalta] 60 mg PO DAILY Magnesium Oxide [Mag-Ox] 200 mg PO DAILY Tamsulosin HCl [Flomax] 0.4 mg PO DAILY buPROPion XL [Wellbutrin XL] 150 mg PO DAILY Nicotine 21Mg/24Hr Patch [Habitrol] 1 patch TRANSDERM DAILY Diazepam [Valium] 5 mg PO TID Lipase/Protease/Amylase [[place]cher 24,000 Units Capsule] 2 cap PO TID-W/MEALS Discharge Medication List Folic Acid 1 mg PO DAILY #30 tablet 07/15/15 [Rx] Atorvastatin [Lipitor] 10 mg PO HS 09/27/15 [History] Albuterol Inhaler [Ventolin Hfa Inhaler] 2 puff INHALATION RT-Q4H PRN 03/01/17 [ History] traZODone HCL 50 mg PO HS 04/04/17 [History] Omeprazole [PriLOSEC] 40 mg PO BID #60 capsule. 05/16/17 [Rx] Gabapentin [Neurontin] 400 mg PO TID 07/18/17 [History] cloNIDine HCL [Catapres] 0.1 mg PO TID #30 tab 08/23/17 [Rx] Acetaminophen-Codeine 300-30mg [Tylenol w/codeine #3] 1 tab PO TID 09/10/17 [ History] DULoxetine HCL [Cymbalta] 60 mg PO DAILY 09/18/17 [History] Magnesium Oxide [Mag-Ox] 200 mg PO DAILY 09/18/17 [History] Tamsulosin HCl [Flomax] 0.4 mg PO DAILY 09/18/17 [History] Diazepam [Valium] 5 mg PO TID 10/20/17 [History] Lipase/Protease/Amylase [Creon Dr 24,000 Units Capsule] 2 cap PO TID-W/MEALS 07/08 [History] Nicotine 21Mg/24Hr Patch [Habitrol] 1 patch TRANSDERM DAILY 10/20/17 [History] buPROPion XL [Wellbutrin XL] 150 mg PO DAILY 10/20/17 [History] Levofloxacin [Levaquin] 500 mg PO DAILY 3 Days #3 tab 10/24/17 [Rx] Follow up Appointment(s)/Referral(s): Carrillo Leo Jr, DO [Primary Care Provider] - 3 Days Consuelo Kellogg MD [STAFF PHYSICIAN] - 4 Weeks Patient Instructions/Handouts: Pancreatitis (DC) Activity/Diet/Wound Care/Special Instructions: Soft bland diet NO alcohol use. References again given. No smoking. Literature provided. Discharge Disposition: HOME SELF-CARE
[2017-10-24] MEDS: FAMOTIDINE 20 MG/2 ML VIAL IV PRN (13:51)
== END 2017-10-24 14:32 | disposition home or self-care (01) | DRG 439 ==
LOC: EC 07:45 → 4MS4W 10:05
PROVIDERS: ADMIT Family Medicine; ATTEND Family Medicine
DX: K85.90 Acute pancreatitis without necrosis or infection, unspecified (principal); N39.0 Urinary tract infection, site not specified; E78.5 Hyperlipidemia, unspecified; F10.10 Alcohol abuse, uncomplicated; F17.200 Nicotine dependence, unspecified, uncomplicated; F32.9 Major depressive disorder, single episode, unspecified; F41.9 Anxiety disorder, unspecified; K21.9 Gastro-esophageal reflux disease without esophagitis; K86.0 Alcohol-induced chronic pancreatitis; Y90.1 Blood alcohol level of 20-39 mg/100 ml; Z79.899 Other long term (current) drug therapy; Z82.49 Family history of ischemic heart disease and other diseases of the circulatory system; Z83.3 Family history of diabetes mellitus; Z87.442 Personal history of urinary calculi; M54.5 Low back pain; G89.29 Other chronic pain; Z71.41 Alcohol abuse counseling and surveillance of alcoholic; Z87.01 Personal history of pneumonia (recurrent); Z87.440 Personal history of urinary (tract) infections; G62.9 Polyneuropathy, unspecified; N42.9 Disorder of prostate, unspecified
CPT/HCPCS: 36415; 80048; 80053; 80320; 81001; 82150; 83690; 83735; 84484; 85025; 93005; 96361; 96374; 96375; 99284

== ENCOUNTER 2017-10-25 02:48 | Observation (INO) | payer MEDICARE, OTHER ==
[2017-10-25] MEDS ORDERED: PANTOPRAZOLE 40 MG/10 ML VIAL IVP STA (03:10)
[2017-10-25] MEDS ORDERED: SODIUM CHLORIDE 0.9% 1,000 ML IV STA (03:10)
[2017-10-25] MEDS ORDERED: KETOROLAC 30 MG/ML 1 ML VIAL IVP STA (03:13)
[2017-10-25 03:36] LABS: Basophils % (A) 0 %; Eosinophils # (A) 0.2 k/uL (0-0.7); Eosinophils % (A) 2 %; HCT 32.9 % (39.0-53.0); HGB 10.7 gm/dL (13.0-17.5); Lymphocytes # (A) 1.3 k/uL (1.0-4.8); Lymphocytes % (A) 15 %; MCH 29.8 pg (25.0-35.0); MCHC 32.5 g/dL (31.0-37.0); MCV 91.6 fL (80.0-100.0); Mean Platelet Volume 7.6; Monocytes # (A) 0.5 k/uL (0-1.0); Monocytes % (A) 6 %; Neutrophils # (A) 6.5 k/uL (1.3-7.7); Neutrophils % (A) 76 %; Platelet Count 302 k/uL (150-450); RBC 3.59 m/uL (4.30-5.90); RDW 15.5 % (11.5-15.5); WBC 8.6 k/uL (3.8-10.6)
[2017-10-25 03:52] LABS: ALT 41 U/L (21-72); AST 28 U/L (17-59); Albumin 2.9 g/dL (3.5-5.0); Alkaline Phosphatase 252 U/L (38-126); Amylase 48 U/L (30-110); Anion Gap 11 mmol/L; Blood Urea Nitrogen 4 mg/dL (9-20); C Reactive Protein 45.5 mg/L (<10.0); Calcium 8.7 mg/dL (8.4-10.2); Carbon Dioxide 24 mmol/L (22-30); Chloride 100 mmol/L (98-107); Glucose 95 mg/dL (74-99); Lipase 315 U/L (23-300); Potassium 4.2 mmol/L (3.5-5.1); Sodium 135 mmol/L (137-145); Total Bilirubin 0.4 mg/dL (0.2-1.3); Total Protein 5.5 g/dL (6.3-8.2)
--- NOTE | 2017-10-25 04:04 | ED ---
Abdominal Pain HPI - General Chief Complaint: Abdominal Pain Stated Complaint: abd pain Time Seen by Provider: 10/25/17 03:03 Source: patient Mode of arrival: ambulatory Limitations: no limitations - History of Present Illness Initial Comments: 37 years old male comes in with epigastric pain in the left lower quadrant pain he said this pain is different than his previous pains started the day ago got worse a few hours ago no fever no chills no nausea no vomiting no diarrhea no constipation - Related Data Home Medications Medication Instructions Recorded Confirmed Atorvastatin [Lipitor] 10 mg PO HS 09/27/15 10/25/17 Albuterol Inhaler [Ventolin Hfa 2 puff INHALATION RT-Q4H PRN 03/01/17 10/25/17 Inhaler] traZODone HCL 50 mg PO HS 04/04/17 10/25/17 Gabapentin [Neurontin] 400 mg PO TID 07/18/17 10/25/17 Acetaminophen-Codeine 300-30mg 1 tab PO TID 09/10/17 10/25/17 [Tylenol w/codeine #3] DULoxetine HCL [Cymbalta] 60 mg PO DAILY 09/18/17 10/25/17 Magnesium Oxide [Mag-Ox] 200 mg PO DAILY 09/18/17 10/25/17 Tamsulosin HCl [Flomax] 0.4 mg PO DAILY 09/18/17 10/25/17 Diazepam [Valium] 5 mg PO TID 10/20/17 10/25/17 Lipase/Protease/Amylase [Creon 2 cap PO TID-W/MEALS 10/20/17 10/25/17 24,000 Units Capsule] Nicotine 21Mg/24Hr Patch [Habitrol] 1 patch TRANSDERM DAILY 10/20/17 10/25/17 buPROPion XL [Wellbutrin XL] 150 mg PO DAILY 10/20/17 10/25/17 Previous Rx's Medication Instructions Recorded Folic Acid 1 mg PO DAILY #30 tablet 07/15/15 Omeprazole [PriLOSEC] 40 mg PO BID #60 capsule. 05/16/17 cloNIDine HCL [Catapres] 0.1 mg PO TID #30 tab 08/23/17 Levofloxacin [Levaquin] 500 mg PO DAILY 3 Days #3 tab 10/24/17 Allergies Allergy/AdvReac Type Severity Reaction Status Date / Time No Known Allergies Allergy Verified 10/20/17 11:59 Review of Systems ROS Statement: Those systems with pertinent positive or pertinent negative responses have been documented in the HPI. ROS Other: All systems not noted in ROS Statement are negative. Past Medical History Past Medical History: GERD/Reflux, GI Bleed, Hyperlipidemia, Liver Disease, Pneumonia, Prostate Disorder Additional Past Medical History / Comment(s): ETOH ABUSE-PT STATES HE HAS HAD NO ALCOHOL PAST 2 MONTHS, RECURRANT PANCREATITIS, ALCOHOLIC HEPATITIS, NEUROPATHY BILATERAL FEET SINCE BACK SURGERY, NEPHROLITHIASIS, hx of CHRONIC URINARY RETENTION DUE TO BACK PROBLEMS-SELF CATHS.UTI. CHRONIC LOW BACK PAIN ( HAS STIMULATOR THAT PT STATES DOES NOT WORK. HEMATEMESIS, CHRONIC LOOSE STOOLS. History of Any Multi-Drug Resistant Organisms: None Reported Past Surgical History: Back Surgery, Cholecystectomy, Orthopedic Surgery Additional Past Surgical History / Comment(s): Bronchoscopy, BACK surgeries with TITANIUM PLATES MILTON and CAGES, KIDNEY STONES removed per pt, SPINAL CORD STIMULATOR, ISMAEL KNEE ARTHROSCOPIES, PINKY FINGER RT HAND REATTATCHED Past Anesthesia/Blood Transfusion Reactions: No Reported Reaction Past Psychological History: Anxiety, Depression Smoking Status: Current every day smoker Past Alcohol Use History: Abuse Past Drug Use History: None Reported - Past Family History Father Family Medical History: Diabetes Mellitus Additional Family Medical History / Comment(s): Mother Family Medical History: Dementia, Hyperlipidemia, Hypertension Additional Family Medical History / Comment(s): Mother is living. General Exam - General Exam Comments Initial Comments: General: The patient is awake and alert, in no distress, and does not appear acutely ill. Skin: Skin is warm and dry and no rashes or lesions are noted. Eye: Pupils are equal, round and reactive to light, extra-ocular movements are intact; there is normal conjunctiva bilaterally. Ears, nose, mouth and throat: There are moist mucous membranes and no oral lesions. Neck: The neck is supple, there is no tenderness or JVD. Cardiovascular: There is a regular rate and rhythm. No murmur, rub or gallop is appreciated. Respiratory: To auscultation bilateral, no wheezing no rhonchi no distress respiratory don noticed Gastrointestinal: Tender in epigastric area, positive bowel sounds no guarding no rebounds or tender in left lower quadrant area no guarding no rebounds. Back: There is no tenderness to palpation in the midline. There is no obvious deformity. Musculoskeletal: Normal ROM, no tenderness, There is no pedal edema. There is no calf tenderness or swelling. No cords were appreciated. Neurological: CN II-XII intact, Cranial nerves III through XII are intact. There are no obvious motor or sensory deficits. Coordination appears grossly intact. Speech is normal. Psychiatric: Cooperative, appropriate mood & affect, normal judgment. Limitations: no limitations Course Vital Signs 10/25/17 10/25/17 02:50 03:58 Temperature 98.8 F Pulse Rate 54 L 91 Respiratory 18 17 Rate Blood Pressure 110/69 126/77 O2 Sat by Pulse 100 98 Oximetry Plan now reassessment noticed white count is normal lipase is 3:15 which is almost normal C-reactive protein is elevated is 45 considering elevated C- reactive protein and her left lower quadrant pain and concerned about diverticulitis or localized abscess of microperforation and will require and proceed with the CT abdomen and pelvis with IV contrast Medical Decision Making - Lab Data Result diagrams: 10/25/17 03:20 10/25/17 03:20 Lab Results 10/25/17 10/25/17 Range/Units 03:20 03:20 WBC 8.6 (3.8-10.6) k/uL RBC 3.59 L (4.30-5.90) m/uL Hgb 10.7 L (13.0-17.5) gm/dL Hct 32.9 L (39.0-53.0) % MCV 91.6 (80.0-100.0) fL MCH 29.8 (25.0-35.0) pg MCHC 32.5 (31.0-37.0) g/dL RDW 15.5 (11.5-15.5) % Plt Count 302 (150-450) k/uL Neutrophils % 76 % Lymphocytes % 15 % Monocytes % 6 % Eosinophils % 2 % Basophils % 0 % Neutrophils # 6.5 (1.3-7.7) k/uL Lymphocytes # 1.3 (1.0-4.8) k/uL Monocytes # 0.5 (0-1.0) k/uL Eosinophils # 0.2 (0-0.7) k/uL Basophils # 0.0 (0-0.2) k/uL Sodium 135 L (137-145) mmol/L Potassium 4.2 (3.5-5.1) mmol/L Chloride 100 (98-107) mmol/L Carbon Dioxide 24 (22-30) mmol/L Anion Gap 11 mmol/L BUN 4 L (9-20) mg/dL Creatinine 0.70 (0.66-1.25) mg/dL Est GFR (CKD-EPI)AfAm >90 (>60 ml/min/1.73 sqM) Est GFR (CKD-EPI)NonAf >90 (>60 ml/min/1.73 sqM) Glucose 95 (74-99) mg/dL Calcium 8.7 (8.4-10.2) mg/dL Total Bilirubin 0.4 (0.2-1.3) mg/dL AST 28 (17-59) U/L ALT 41 (21-72) U/L Alkaline Phosphatase 252 H (38-126) U/L C-Reactive Protein 45.5 H (<10.0) mg/L Total Protein 5.5 L (6.3-8.2) g/dL Albumin 2.9 L (3.5-5.0) g/dL Amylase 48 (30-110) U/L Lipase 315 H (23-300) U/L Disposition Clinical Impression: Left lower quadrant pain, Epigastric pain Referrals: Carrillo Leo Jr, [Primary Care Provider] - 1-2 days
--- NOTE | 2017-10-25 04:09 | XR ---
EXAM: XR Abdomen, 2 Views CLINICAL HISTORY: Abdominal pain TECHNIQUE: Frontal view of the abdomen/pelvis with upright view of the abdomen. COMPARISON: No relevant prior studies available. FINDINGS: Intraperitoneal space: No free air. Gastrointestinal tract: Air-fluid levels are seen throughout the abdomen which are nonspecific. No dilated loops of bowel seen. Organs: Evidence of prior cholecystectomy. Bones/joints: Posterior changes within the lumbar spine. Tubes, lines and devices: Spinal nerve stimulator device noted. IMPRESSION: Air-fluid levels are seen throughout the abdomen which are nonspecific. No dilated loops of bowel seen.
[2017-10-25] MEDS ORDERED: MORPHINE SULFATE 2 MG/ML SYRINGE IVP STA (04:40)
--- NOTE | 2017-10-25 04:50 | CT ---
EXAM: CT Abdomen and Pelvis With Intravenous Contrast CLINICAL HISTORY: Pain TECHNIQUE: Axial computed tomography images of the abdomen and pelvis with intravenous contrast. CTDI is 12.1 mGy and DLP is 424.3 mGy-cm. This CT exam was performed using one or more of the following dose reduction techniques: automated exposure control, adjustment of the mA and/or kV according to patient size, and/or use of iterative reconstruction technique. COMPARISON: No relevant prior studies available. FINDINGS: Lung bases: Unremarkable. No mass. No consolidation. ABDOMEN: Liver: Probable liver cirrhosis. Gallbladder and bile ducts: Gallbladder is surgically absent. Gallbladder surgically absent. Pancreas: Moderate stranding and edema noted about the body and head of the pancreas with moderate wall thickening of the duodenum bulb and duodenum. Placement was focal pancreatitis versus duodenitis. Spleen: Unremarkable. Adrenals: Unremarkable. Kidneys and ureters: Mild to moderate left hydroureteronephrosis to the level of the UVJ. No obstructive lesion identified. Cortical scarring with the left kidney. Stomach and bowel: Fluid noted throughout the small bowel, which may represent nonspecific enterocolitis. PELVIS: Appendix: No findings to suggest acute appendicitis. Bladder: Unremarkable. Reproductive: Unremarkable as visualized. ABDOMEN and PELVIS: Intraperitoneal space: Unremarkable. Bones/joints: Post surgical changes within the lumbosacral spine. No acute fracture. No dislocation. Soft tissues: Unremarkable. Vasculature: Unremarkable. No abdominal aortic aneurysm. Lymph nodes: Unremarkable. IMPRESSION: 1. Moderate stranding and edema noted about the body and head of the pancreas with moderate wall thickening of the duodenum bulb and duodenum. Placement was focal pancreatitis versus duodenitis. Correlate with serum amylase and lipase. 2. Mild to moderate left hydroureteronephrosis to the level of the UVJ. No obstructive lesion identified. Findings may represent recently passed ureteral calculus, infectious process, stricture, or mass. 3. Fluid noted throughout the small bowel, which may represent nonspecific enterocolitis.
[2017-10-25] MEDS ORDERED: metroNIDAZOLE-NS PMX 500 MG in SALINE 1 100ML.BAG IVPB STA (04:59)
[2017-10-25] MEDS ORDERED: cefTRIAXone 2,000 MG in SODIUM CHLORIDE 0.9% 100 ML IVPB STA (04:59)
[2017-10-25 05:01] LABS: Appearance,Urine Clear (Clear); Bilirubin,Urine Negative (Negative); Blood,Urine Negative (Negative); Budding Yeast,Urine Moderate /hpf; Color,Urine Light Yellow; Glucose,Urine (UA) Negative (Negative); Ketones,Urine Negative (Negative); Leukocyte Esterase,Urine Moderate (Negative); Nitrite,Urine Negative (Negative); Protein,Urine Negative (Negative); RBC,Urine 3 /hpf (0-5); Specific Gravity,Urine 1.007 (1.001-1.035); Squamous Epithelial Cell,Urine <1 /hpf (0-4); Urobilinogen,Urine <2.0 mg/dL (<2.0); WBC,Urine 8 /hpf (0-5)
[2017-10-25] MEDS ORDERED: cefTRIAXone IN SWFI 2,000 MG/20 ML SYRINGE IVP STA (05:09)
[2017-10-25] MEDS ORDERED: ONDANSETRON 4 MG/2 ML VIAL IVP PRN (05:17)
[2017-10-25] MEDS ORDERED: NALOXONE 0.4 MG/ML 1 ML VIAL IV PRN (05:17)
[2017-10-25] MEDS ORDERED: MORPHINE SULFATE 2 MG/ML SYRINGE IV PRN (05:17)
[2017-10-25] MEDS ORDERED: ACETAMINOPHEN TAB 325 MG TAB PO PRN (05:17)
[2017-10-25] MEDS ORDERED: ALBUTEROL NEBULIZED 2.5 MG/3 ML INHALATION PRN (05:21)
[2017-10-25] MEDS ORDERED: LEVOFLOXACIN 250MG-D5W PMX 500 MG in DEXTROSE/WATER 1 50ML.BAG IVPB SCH (05:30)
[2017-10-25] MEDS ORDERED: metroNIDAZOLE-NS PMX 500 MG in SALINE 1 100ML.BAG IVPB SCH (08:00)
[2017-10-25] MEDS: PANTOPRAZOLE 40 MG/10 ML VIAL IV SCH (08:28)
[2017-10-25] MEDS: NICOTINE 21MG/24HR PATCH TRANSDERM SCH (08:29)
[2017-10-25] MEDS: GABAPENTIN 400 MG CAP PO SCH ×3 (08:31→22:21)
[2017-10-25] MEDS: buPROPion XL 150 MG TAB.ER.24H PO SCH (08:31)
[2017-10-25] MEDS: DULoxetine HCL 60 MG CAPSULE.DR PO SCH (08:31)
[2017-10-25] MEDS: cloNIDine HCL 0.1 MG TAB PO SCH ×3 (08:32→23:46)
[2017-10-25] MEDS: FOLIC ACID 1 MG TAB PO SCH (08:32)
[2017-10-25] MEDS: LEVOFLOXACIN 500 MG TAB PO SCH (08:32)
[2017-10-25] MEDS: MAGNESIUM OXIDE 400 MG TAB PO SCH (08:32)
[2017-10-25] MEDS: TAMSULOSIN 0.4 MG CAP.ER.24H PO SCH (08:33)
[2017-10-25] MEDS: Acetaminophen-Codeine 300-30mg TAB PO SCH ×3 (08:34→22:20)
[2017-10-25] MEDS: LIPASE 5,000/PROTEASE 17,000/AMYLASE 27,0000 PO SCH ×3 (08:39→18:05)
[2017-10-25] MEDS: DIAZEPAM 5 MG TAB PO SCH ×3 (08:39→22:20)
[2017-10-25] MEDS ORDERED: NON-FORMULARY DRUG (Omeprazole 40 MG) PO SCH (09:00)
--- NOTE | 2017-10-25 10:08 | P.GSCN ---
History of Present Illness Consult date: 10/25/17 Reason for Consult: Abdominal pain, abnormal computed tomography scan History of present illness: The patient is a 47-year-old man with a history of frequent hospitalizations for pancreatitis. He came into the emergency room yesterday because he had worsened pain. He denied nausea or vomiting. Denied fevers or chills. Denied diarrhea. Admitted to some occasional constipation. No blood in the stools or dark tarry stools. Denies any recent alcohol use. When we began to discuss the computed tomography scan findings, and I said the small bowel changes were likely due to the pancreatitis, we discussed the usual symptoms of small bowel enteritis. He then began to say he had diarrhea which was like water and he would have urgency. When asked about the previous, and about constipation, he said he takes milk of magnesia almost on a daily basis to the constipation. Review of Systems - Constitutional Reports as per HPI, Reports chronic pain, Reports fatigue, Reports lethargy, Reports weakness Past Medical History Past Medical History: GERD/Reflux, GI Bleed, Hyperlipidemia, Liver Disease, Pneumonia, Prostate Disorder Additional Past Medical History / Comment(s): ETOH ABUSE-PT STATES HE HAD A FEW SIPS OF ALCOHOL LAST NITE, RECURRANT PANCREATITIS, ALCOHOLIC HEPATITIS, NEUROPATHY BILATERAL FEET SINCE BACK SURGERY, NEPHROLITHIASIS, hx of CHRONIC URINARY RETENTION DUE TO BACK PROBLEMS-SELF CATHS, CURRENT UTI, UTIs IN THE PAST , CHRONIC LOW BACK PAIN (HAS STIMULATOR THAT PT STATES DOES NOT WORK), HEMATEMESIS, CHRONIC LOOSE STOOLS. History of Any Multi-Drug Resistant Organisms: None Reported Past Surgical History: Back Surgery, Cholecystectomy, Orthopedic Surgery Additional Past Surgical History / Comment(s): EGDS, colonoscopy, bronchoscopy, BACK surgeries with TITANIUM PLATES MILTON and CAGES, KIDNEY STONES removed per pt, SPINAL CORD STIMULATOR, ISMAEL KNEE ARTHROSCOPIES, PINKY FINGER RT HAND REATTATCHED Past Anesthesia/Blood Transfusion Reactions: No Reported Reaction Smoking Status: Current every day smoker - Past Family History Father Family Medical History: Diabetes Mellitus Additional Family Medical History / Comment(s): Mother Family Medical History: Dementia, Hyperlipidemia, Hypertension Additional Family Medical History / Comment(s): Mother is living. Medications and Allergies Home Medications Medication Instructions Recorded Confirmed Type Folic Acid 1 mg PO DAILY #30 tablet 07/15/10/25/17 Rx Atorvastatin [Lipitor] 10 mg PO HS 09/27/15 10/25/17 History Albuterol Inhaler [Ventolin Hfa 2 puff INHALATION RT-Q4H PRN 03/01/17 10/25/17 History Inhaler] traZODone HCL 50 mg PO HS 04/04/17 10/25/17 History Omeprazole [PriLOSEC] 40 mg PO BID #60 capsule. 05/16/17 10/25/17 Rx Gabapentin [Neurontin] 400 mg PO TID 07/18/17 10/25/17 History cloNIDine HCL [Catapres] 0.1 mg PO TID #30 tab 08/23/17 10/25/17 Rx Acetaminophen-Codeine 300-30mg 1 tab PO TID 09/10/17 10/25/17 History [Tylenol w/codeine #3] DULoxetine HCL [Cymbalta] 60 mg PO DAILY 09/18/17 10/25/17 History Magnesium Oxide [Mag-Ox] 200 mg PO DAILY 09/18/17 10/25/17 History Tamsulosin HCl [Flomax] 0.4 mg PO DAILY 09/18/17 10/25/17 History Diazepam [Valium] 5 mg PO TID 10/20/17 10/25/17 History Lipase/Protease/Amylase [Creon 2 cap PO TID-W/MEALS 10/20/17 10/25/17 History 24,000 Units Capsule] Nicotine 21Mg/24Hr Patch [Habitrol] 1 patch TRANSDERM DAILY 10/20/17 10/25/17 History buPROPion XL [Wellbutrin XL] 150 mg PO DAILY 10/20/17 10/25/17 History Levofloxacin [Levaquin] 500 mg PO DAILY 3 Days #3 tab 10/24/17 10/25/17 Rx Allergies Allergy/AdvReac Type Severity Reaction Status Date / Time No Known Allergies Allergy Verified 10/25/17 08:19 Surgical - Exam Osteopathic Statement: *. No significant issues noted on an osteopathic structural exam other than those noted in the History and Physical/Consult. Vital Signs Temp Pulse Resp BP Pulse Ox 98.8 F 54 L 18 110/69 100 10/25/17 02:50 10/25/17 02:50 10/25/17 02:50 10/25/17 02:50 10/25/17 02:50 - General no distress, chronically ill - Eyes normal ocular movement - Neck trachea midline, no lymphadectomy - Respiratory Slight decreased breath sounds bilaterally with some rhonchi normal respiratory effort - Cardiovascular Rhythm: regular - Abdomen Abdomen: soft, tender (Mild diffuse), bowel sounds, no guarding, no rigid, no rebound, no distended Results - Labs 10/25/17 03:20 10/25/17 03:20 Abnormal Lab Results - Last 24 Hours (Table) 10/25/17 10/25/17 10/25/17 Range/Units 03:20 03:20 04:43 RBC 3.59 L (4.30-5.90) m/uL Hgb 10.7 L (13.0-17.5) gm/dL Hct 32.9 L (39.0-53.0) % Sodium 135 L (137-145) mmol/L BUN 4 L (9-20) mg/dL Alkaline Phosphatase 252 H (38-126) U/L C-Reactive Protein 45.5 H (<10.0) mg/L Total Protein 5.5 L (6.3-8.2) g/dL Albumin 2.9 L (3.5-5.0) g/dL Lipase 315 H (23-300) U/L Ur Leukocyte Esterase Moderate H (Negative) Urine WBC 8 H (0-5) /hpf Urine Yeast (Budding) Moderate H (None) /hpf Diabetes panel 10/25/17 Range/Units 03:20 Sodium 135 L (137-145) mmol/L Potassium 4.2 (3.5-5.1) mmol/L Chloride 100 (98-107) mmol/L Carbon Dioxide 24 (22-30) mmol/L BUN 4 L (9-20) mg/dL Creatinine 0.70 (0.66-1.25) mg/dL Glucose 95 (74-99) mg/dL Calcium 8.7 (8.4-10.2) mg/dL AST 28 (17-59) U/L ALT 41 (21-72) U/L Alkaline Phosphatase 252 H (38-126) U/L Total Protein 5.5 L (6.3-8.2) g/dL Albumin 2.9 L (3.5-5.0) g/dL Calcium panel 10/25/17 Range/Units 03:20 Calcium 8.7 (8.4-10.2) mg/dL Albumin 2.9 L (3.5-5.0) g/dL Pituitary panel 10/25/17 Range/Units 03:20 Sodium 135 L (137-145) mmol/L Potassium 4.2 (3.5-5.1) mmol/L Chloride 100 (98-107) mmol/L Carbon Dioxide 24 (22-30) mmol/L BUN 4 L (9-20) mg/dL Creatinine 0.70 (0.66-1.25) mg/dL Glucose 95 (74-99) mg/dL Calcium 8.7 (8.4-10.2) mg/dL Adrenal panel 10/25/17 Range/Units 03:20 Sodium 135 L (137-145) mmol/L Potassium 4.2 (3.5-5.1) mmol/L Chloride 100 (98-107) mmol/L Carbon Dioxide 24 (22-30) mmol/L BUN 4 L (9-20) mg/dL Creatinine 0.70 (0.66-1.25) mg/dL Glucose 95 (74-99) mg/dL Calcium 8.7 (8.4-10.2) mg/dL Total Bilirubin 0.4 (0.2-1.3) mg/dL AST 28 (17-59) U/L ALT 41 (21-72) U/L Alkaline Phosphatase 252 H (38-126) U/L Total Protein 5.5 L (6.3-8.2) g/dL Albumin 2.9 L (3.5-5.0) g/dL - Imaging CT scan - abdomen: report reviewed, image reviewed Assessment and Plan (1) Abnormal computed tomography scan Current Visit: Yes Status: Acute Code(s): R93.8 - ABNORMAL FINDINGS ON DIAGNOSTIC IMAGING OF BODY STRUCTURES SNOMED Code(s): 282850706 (2) Abdominal pain Current Visit: No Status: Acute Code(s): R10.9 - UNSPECIFIED ABDOMINAL PAIN SNOMED Code(s): 62153191 (3) Acute on chronic pancreatitis Current Visit: No Status: Acute Code(s): K85.90 - ACUTE PANCREATITIS WITHOUT NECROSIS OR INFECTION, UNSP; K86.1 - OTHER CHRONIC PANCREATITIS SNOMED Code(s): 380140526 (4) Alcohol abuse Current Visit: No Status: Acute Code(s): F10.10 - ALCOHOL ABUSE, UNCOMPLICATED SNOMED Code(s): 59523200 Plan: Clinically he does not have symptoms related to an enteritis. After discussing the usual symptoms of enteritis however, his complaints seem to change and then he complained of diarrhea but also was taking milk of magnesia daily. I recommend Hemoccult of stools. And GI consult
--- NOTE | 2017-10-25 11:49 | P.CONS ---
History of Present Illness - Reason for Consult Consult date: 10/25/17 epigastric pain Requesting physician: Carrillo Leo Jr - History of Present Illness 47-year-old male history of chronic relapsing alcohol pancreatitis active EtOH abuse admitted earlier this week and discharged yesterday for acute on chronic pancreatitis. Patient returned earlier this morning after being discharged yesterday with worsening epigastric pain. No fever chills hematemesis hematochezia melena. CT abdomen and pelvis reported moderate stranding edema noted around the body and head of the pancreas with moderate wall thickening of the duodenum bulb. Mild to moderate left hydroureteronephrosis no obstruction identified. Fluid throughout the small bowel may represent nonspecific enterocolitis. Patient has been seen by general surgery no surgical intervention planned at this time. White count 8.6 hemoglobin 10.7. Platelets 302. BUN 4. Creatinine 0.7. Total bilirubin 0.4. AST 20. ALT 41. AP 252. CRP 45. Amylase 48. Lipase 315. Discharge lipase yesterday 272. Amylase 45. Total bili 0.3. AST 42. ALT 47. AP 258. Review of Systems Constitutional: Denies fever, chills, sweats, weight gain, or loss. HEENT: Negative for migraines, blurred vision or loss, earaches, drainage, tinnitus, oral mucosal lesions, dysphagia, or odynophagia. Cardiac: Negative for chest pain, arrhythmias, or palpitation. Respiratory: Negative for shortness of breath, hemoptysis, cough, or sputum production. Gastrointestinal: See HPI for pertinent findings. Genitourinary: Negative for hematuria, urgency, frequency, polyuria, dysuria, or penile discharge. Musculoskeletal: Negative for muscle aches, swelling, arthritis, and arthralgias. Neurologic: Negative for stroke or TIA. Endocrine: Negative for thyroid problems. Skin: Negative for rash or itching. Psychiatric: Negative history for depression and anxiety Past Medical History Past Medical History: GERD/Reflux, GI Bleed, Hyperlipidemia, Liver Disease, Pneumonia, Prostate Disorder Additional Past Medical History / Comment(s): ETOH ABUSE-PT STATES HE HAD A FEW SIPS OF ALCOHOL LAST NITE, RECURRANT PANCREATITIS, ALCOHOLIC HEPATITIS, NEUROPATHY BILATERAL FEET SINCE BACK SURGERY, NEPHROLITHIASIS, hx of CHRONIC URINARY RETENTION DUE TO BACK PROBLEMS-SELF CATHS, CURRENT UTI, UTIs IN THE PAST , CHRONIC LOW BACK PAIN (HAS STIMULATOR THAT PT STATES DOES NOT WORK), HEMATEMESIS, CHRONIC LOOSE STOOLS. History of Any Multi-Drug Resistant Organisms: None Reported Past Surgical History: Back Surgery, Cholecystectomy, Orthopedic Surgery Additional Past Surgical History / Comment(s): EGDS, colonoscopy, bronchoscopy, BACK surgeries with TITANIUM PLATES MILTON and CAGES, KIDNEY STONES removed per pt, SPINAL CORD STIMULATOR, ISMAEL KNEE ARTHROSCOPIES, PINKY FINGER RT HAND REATTATCHED Past Anesthesia/Blood Transfusion Reactions: No Reported Reaction Smoking Status: Current every day smoker - Past Family History Father Family Medical History: Diabetes Mellitus Additional Family Medical History / Comment(s): Mother Family Medical History: Dementia, Hyperlipidemia, Hypertension Additional Family Medical History / Comment(s): Mother is living. Medications and Allergies Home Medications Medication Instructions Recorded Confirmed Type Folic Acid 1 mg PO DAILY #30 tablet 07/15/15 10/25/17 Rx Atorvastatin [Lipitor] 10 mg PO HS 09/27/15 10/25/17 History Albuterol Inhaler [Ventolin Hfa 2 puff INHALATION RT-Q4H PRN 03/01/17 10/25/17 History Inhaler] traZODone HCL 50 mg PO HS 04/04/17 10/25/17 History Omeprazole [PriLOSEC] 40 mg PO BID #60 capsule. 05/16/17 10/25/17 Rx Gabapentin [Neurontin] 400 mg PO TID 07/18/17 10/25/17 History cloNIDine HCL [Catapres] 0.1 mg PO TID #30 tab 08/23/17 10/25/17 Rx Acetaminophen-Codeine 300-30mg 1 tab PO TID 09/10/17 10/25/17 History [Tylenol w/codeine #3] DULoxetine HCL [Cymbalta] 60 mg PO DAILY 09/18/17 10/25/17 History Magnesium Oxide [Mag-Ox] 200 mg PO DAILY 09/18/17 10/25/17 History Tamsulosin HCl [Flomax] 0.4 mg PO DAILY 09/18/17 10/25/17 History Diazepam [Valium] 5 mg PO TID 10/20/17 10/25/17 History Lipase/Protease/Amylase [Rebel Dr 2 cap PO TID-W/MEALS 10/20/17 10/25/17 History 24,000 Units Capsule] Nicotine 21Mg/24Hr Patch [Habitrol] 1 patch TRANSDERM DAILY 10/20/17 10/25/17 History buPROPion XL [Wellbutrin XL] 150 mg PO DAILY 10/20/17 10/25/17 History Levofloxacin [Levaquin] 500 mg PO DAILY 3 Days #3 tab 10/24/17 10/25/17 Rx Allergies Allergy/AdvReac Type Severity Reaction Status Date / Time No Known Allergies Allergy Verified 10/25/17 08:19 Physical Exam Vitals: Vital Signs Temp Pulse Pulse Resp BP BP Pulse Ox 10/25/17 07:07 98.4 F 83 16 126/81 97 10/25/17 06:00 98.7 F 98 17 122/80 96 10/25/17 04:52 89 18 128/86 97 10/25/17 03:58 91 17 126/77 98 10/25/17 02:50 98.8 F 54 L 18 110/69 100 Intake and Output 10/24/17 10/25/17 10/25/17 22:59 06:59 14:59 Other: Voiding Method Self-Catheterization Weight 67.132 kg General appearance: The patient is alert, oriented, in no acute distress. HET: Head is normocephalic and atraumatic. Pupils are equal and reactive. Oropharynx is clear without lesions. Neck: Supple without lymphadenopathy. Trachea midline. Heart: S1 S2. Regular rate and rhythm. Lungs: No crackles or wheezes are heard. Abdomen: Soft, epigastric tenderness, nondistended with bowel sounds. No peritoneal signs. No palpable organomegaly or masses. Extremities: Normal skin color and turgor. No cyanosis, rash, ulceration, clubbing, or edema. Radial and pedal pulses are 2/4 bilaterally. Neurological: No focal deficits. Strength and sensation are grossly intact. Results CBC & Chem 7: 10/25/17 03:20 10/25/17 03:20 Labs: Abnormal Lab Results - Last 24 Hours (Table) 10/25/17 10/25/17 10/25/17 Range/Units 03:20 03:20 04:43 RBC 3.59 L (4.30-5.90) m/uL Hgb 10.7 L (13.0-17.5) gm/dL Hct 32.9 L (39.0-53.0) % Sodium 135 L (137-145) mmol/L BUN 4 L (9-20) mg/dL Alkaline Phosphatase 252 H (38-126) U/L C-Reactive Protein 45.5 H (<10.0) mg/L Total Protein 5.5 L (6.3-8.2) g/dL Albumin 2.9 L (3.5-5.0) g/dL Lipase 315 H (23-300) U/L Ur Leukocyte Esterase Moderate H (Negative) Urine WBC 8 H (0-5) /hpf Urine Yeast (Budding) Moderate H (None) /hpf CT scan - abdomen: report reviewed (Dr. Kellogg) Assessment and Plan (1) Acute on chronic pancreatitis Narrative/Plan: Epigastric pain duodenitis most likely from alcohol pancreatitis however underlying peptic ulcer disease cannot be excluded. Current Visit: No Status: Acute Code(s): K85.90 - ACUTE PANCREATITIS WITHOUT NECROSIS OR INFECTION, UNSP; K86.1 - OTHER CHRONIC PANCREATITIS SNOMED Code(s): 520516918 (2) Alcohol abuse Current Visit: No Status: Acute Code(s): F10.10 - ALCOHOL ABUSE, UNCOMPLICATED SNOMED Code(s): 82837233 Plan: 1. EGD tomorrow. 2. Supportive measures, hydration, GI prophylaxis Protonix 40 mg IV daily. Continue Zenpep. 3. Light diet as tolerated today NPO after midnight. 4. Alcohol abstinence reinforced. Thank you for this kind referral and the opportunity to participate in the care of your patient. This consultation was discussed with Dr. Kellogg. The impression and plan of care have been directed as dictated.
--- NOTE | 2017-10-25 13:49 | P.HPIM ---
History of Present Illness H&P Date: 10/25/17 Chief Complaint: abdominal pain 47-year-old male who presented to the emergency room with a chief complaint of abdominal pain. The patient was just discharged home the day before. He was admitted at that time for acute on chronic alcoholic pancreatitis. The patient states his abdominal pain is different than his pain has been previously. He reports left lower quadrant abdominal pain. He denies nausea or vomiting. Change in bowel habits. Denies fever or chills. Denies chest pain or pressure. Denies difficulty urinating. Denies urinary frequency , urgency, or dysuria. Denies hematuria. The patient has a history of pancreatitis secondary to alcohol abuse, gastroesophageal reflux disease, hyperlipidemia, and occasional urinary retention. He has was a history of anxiety and depression. He is a current cigarette smoker and smokes 2 packs per day. He continues to drink alcohol and reports his last drink was last night prior to coming back to the hospital. KUB x-ray: Air fluid levels are seen throughout the abdomen which are nonspecific. No dilated loops of bowel are seen. CT abdomen and pelvis: Moderate stranding and edema noted about the body and head of the pancreas with moderate wall thickening of the duodenum bulb and duodenum. Placement was focal pancreatitis versus duodenitis. Mild to moderate left hydroureteronephrosis to the level of the UVJ. No objective lesion was identified. Findings may represent recently passed calculus, infectious process, or stricture. Fluid noted throughout the small bowel which may represent nonspecific enterocolitis. Laboratory data: WBC 8.6. Hemoglobin 10.7. Platelet count 302. Sodium 135. Potassium 4.2. BUN 4. Creatinine 0.70. AST 28. ALT 41. Alkaline phosphatase 252. Amylase 48. Lipase 310. C-reactive protein: 45.5 Urinalysis reveals: Clear yellow urine, moderate leukocyte esterase, WBC 8, moderate yeast The patient was admitted to the hospital under the care of Dr. Trejo. Consultations were placed to general surgery. Review of Systems Constitutional: Denies chills, Denies fever, Denies weight gain, Denies weight loss Cardiovascular: Denies chest pain, Denies claudication, Denies lightheadedness, Denies palpitations, Denies shortness of breath, Denies syncope Respiratory: Denies congestion, Denies cough, Denies dyspnea, Denies hemoptysis Gastrointestinal: Reports abdominal pain (Left lower quadrant), Denies change in bowel habits, Denies constipation, Denies diarrhea, Denies hematemesis, Denies hematochezia, Denies loss of appetite, Denies melena Genitourinary: Denies dysuria, Denies hematuria, Denies incontinence, Denies nocturia, Denies polyuria Musculoskeletal: Denies arm numbness/tingling, Denies frequent falls, Denies limitation of motion Integumentary: Denies pruritus, Denies rash, Denies sores Neurological: Denies numbness, Denies paralysis, Denies paresthesias, Denies seizures, Denies tremors, Denies vertigo Psychiatric: Denies confusion, Denies hallucinations, Denies memory loss Endocrine: Denies excessive sweating, Denies excessive thirst, Denies nocturia, Denies polydipsia, Denies polyuria Hematologic/Lymphatic: Denies easy bleeding, Denies easy bruising Past Medical History Past Medical History: GERD/Reflux, GI Bleed, Hyperlipidemia, Liver Disease, Pneumonia, Prostate Disorder Additional Past Medical History / Comment(s): ETOH ABUSE-PT STATES HE HAD A FEW SIPS OF ALCOHOL LAST NITE, RECURRANT PANCREATITIS, ALCOHOLIC HEPATITIS, NEUROPATHY BILATERAL FEET SINCE BACK SURGERY, NEPHROLITHIASIS, hx of CHRONIC URINARY RETENTION DUE TO BACK PROBLEMS-SELF CATHS, CURRENT UTI, UTIs IN THE PAST , CHRONIC LOW BACK PAIN (HAS STIMULATOR THAT PT STATES DOES NOT WORK), HEMATEMESIS, CHRONIC LOOSE STOOLS. History of Any Multi-Drug Resistant Organisms: None Reported Past Surgical History: Back Surgery, Cholecystectomy, Orthopedic Surgery Additional Past Surgical History / Comment(s): EGDS, colonoscopy, bronchoscopy, BACK surgeries with TITANIUM PLATES MILTON and CAGES, KIDNEY STONES removed per pt, SPINAL CORD STIMULATOR, ISMAEL KNEE ARTHROSCOPIES, PINKY FINGER RT HAND REATTATCHED Past Anesthesia/Blood Transfusion Reactions: No Reported Reaction Smoking Status: Current every day smoker - Past Family History Father Family Medical History: Diabetes Mellitus Additional Family Medical History / Comment(s): Mother Family Medical History: Dementia, Hyperlipidemia, Hypertension Additional Family Medical History / Comment(s): Mother is living. Medications and Allergies Home Medications Medication Instructions Recorded Confirmed Type Folic Acid 1 mg PO DAILY #30 tablet 07/15/15 10/25/17 Rx Atorvastatin [Lipitor] 10 mg PO HS 09/27/15 10/25/17 History Albuterol Inhaler [Ventolin Hfa 2 puff INHALATION RT-Q4H PRN 03/01/17 10/25/17 History Inhaler] traZODone HCL 50 mg PO HS 04/04/17 10/25/17 History Omeprazole [PriLOSEC] 40 mg PO BID #60 capsule. 05/16/17 10/25/17 Rx Gabapentin [Neurontin] 400 mg PO TID 07/18/17 10/25/17 History cloNIDine HCL [Catapres] 0.1 mg PO TID #30 tab 08/23/17 10/25/17 Rx Acetaminophen-Codeine 300-30mg 1 tab PO TID 09/10/17 10/25/17 History [Tylenol w/codeine #3] DULoxetine HCL [Cymbalta] 60 mg PO DAILY 09/18/17 10/25/17 History Magnesium Oxide [Mag-Ox] 200 mg PO DAILY 09/18/17 10/25/17 History Tamsulosin HCl [Flomax] 0.4 mg PO DAILY 09/18/17 10/25/17 History Diazepam [Valium] 5 mg PO TID 10/20/17 10/25/17 History Lipase/Protease/Amylase [Creon Dr 2 cap PO TID-W/MEALS 10/20/17 10/25/17 History 24,000 Units Capsule] Nicotine 21Mg/24Hr Patch [Habitrol] 1 patch TRANSDERM DAILY 10/20/17 10/25/17 History buPROPion XL [Wellbutrin XL] 150 mg PO DAILY 10/20/17 10/25/17 History Levofloxacin [Levaquin] 500 mg PO DAILY 3 Days #3 tab 10/24/17 10/25/17 Rx Allergies Allergy/AdvReac Type Severity Reaction Status Date / Time No Known Allergies Allergy Verified 10/25/17 08:19 Physical Exam Vitals: Vital Signs Temp Pulse Pulse Resp BP BP Pulse Ox 10/25/17 07:07 98.4 F 83 16 126/81 97 10/25/17 06:00 98.7 F 98 17 122/80 96 10/25/17 04:52 89 18 128/86 97 10/25/17 03:58 91 17 126/77 98 10/25/17 02:50 98.8 F 54 L 18 110/69 100 Intake and Output 10/24/17 10/25/17 10/25/17 22:59 06:59 14:59 Other: Voiding Method Self-Catheterization Weight 67.132 kg - Constitutional 47-year-old male General appearance: cooperative, no acute distress - EENT Eyes: EOMI, PERRLA ENT: hearing grossly normal - Neck Neck: normal ROM - Respiratory Respiratory: bilateral: CTA, negative: dullness, rales, rhonchi - Cardiovascular Rhythm: regular Heart sounds: normal: S1, S2 Abnormal Heart Sounds: no systolic murmur, no diastolic murmur - Gastrointestinal General gastrointestinal: no distended, normal bowel sounds, no rigid, soft, tenderness (Left lower quadrant and epigastric region) - Integumentary Integumentary: no cellulitis, no cyanotic, no flushed, no jaundiced, normal - Neurologic Neurologic: CNII-XII intact - Musculoskeletal Musculoskeletal: strength equal bilaterally - Psychiatric Psychiatric: A&O x's 3 Results CBC & Chem 7: 10/25/17 03:20 10/25/17 03:20 Labs: Abnormal Lab Results - Last 24 Hours (Table) 10/25/17 10/25/17 10/25/17 Range/Units 03:20 03:20 04:43 RBC 3.59 L (4.30-5.90) m/uL Hgb 10.7 L (13.0-17.5) gm/dL Hct 32.9 L (39.0-53.0) % Sodium 135 L (137-145) mmol/L BUN 4 L (9-20) mg/dL Alkaline Phosphatase 252 H (38-126) U/L C-Reactive Protein 45.5 H (<10.0) mg/L Total Protein 5.5 L (6.3-8.2) g/dL Albumin 2.9 L (3.5-5.0) g/dL Lipase 315 H (23-300) U/L Ur Leukocyte Esterase Moderate H (Negative) Urine WBC 8 H (0-5) /hpf Urine Yeast (Budding) Moderate H (None) /hpf Thrombosis Risk Factor Assmnt - Choose All That Apply Any of the Below Risk Factors Present?: Yes Each Factor Represents 1 point: Age 41-60 years Other Risk Factors: No Other congenital or acquired thrombophilia - If yes, enter type in comment: No Thrombosis Risk Factor Assessment Total Risk Factor Score: 1 Thrombosis Risk Factor Assessment Level: Low Risk Assessment and Plan Plan: ASSESSMENT: Left lower quadrant pain, colitis ruled out per general surgery Left hydroureteronephrosis, patient recently treated for urinary tract infection and remains on Levaquin, may be secondary to passed calculus Acute on chronic alcoholic pancreatitis History of alcohol abuse, currently still drinking Multiple hospitalizations secondary to abdominal pain and pancreatitis, patient has over 30 visits to the hospital in 2018 Chronic low back pain Generalized anxiety disorder Depression Nicotine dependence, patient is a current cigarette smoker, patient reports to packs per day PLAN: General surgery on consult. Appreciate recommendations and input Consult GI to evaluate patient Consult urology to evaluate patient Discontinue morphine. Patient may receive his home pain medications of Tylenol # 3 while hospitalized Encourage alcohol abstinence Home meds as appropriate Monitor labs GI prophylaxis: Protonix 40 mg IV Daily DVT prophylaxis: SCDs to bilateral lower extremities Monitor vital signs and address as appropriate Further recommendations pending patient's course Nurse practitioner note has been reviewed by physician. Signing provider agrees with the documented findings, assessment, and plan of care.
[2017-10-25] MEDS: metroNIDAZOLE-NS PMX 500 MG in SALINE 1 100ML.BAG IVPB SCH ×2 (15:01→22:22)
[2017-10-25] MEDS: KETOROLAC 30 MG/ML 1 ML VIAL IVP SCH ×2 (16:04→23:46)
--- NOTE | 2017-10-25 19:30 | P.GSCN ---
History of Present Illness Consult date: 10/25/17 Reason for Consult: Left hydronephrosis History of present illness: The patient is a 47-year-old male admitted through the emergency room earlier today for evaluation of abdominal pain. He has a history of acute and chronic pancreatitis related to alcoholism and had been discharged from this hospital on 10/24. His lipase on 10/22 had been 1923. When seen in the emergency room earlier today his lipase had fallen to 315. BUN/creatinine were 4/0.7. CT scan of the abdomen and pelvis showed evidence of kasi-pancreatic edema consistent with acute on chronic pancreatitis. There was also evidence of mild- to-moderate left hydroureteronephrosis suggestive of recent passage of a calculus. I was asked to see the patient for further evaluation. This patient is well-known to me and was last seen by me in this hospital in 2016. He has a history of urinary retention secondary to an atonic bladder treated with intermittent catheterization. He has chronic left hydroureteronephrosis secondary to reflux of urine from his bladder into his left ureter. The patient is able to void on his own only if he has over 700 cc in his bladder. I had previously encouraged him to catheterize frequently enough so that he did not have over 500 cc in his bladder to minimize any potential damage to the left kidney but unfortunately the patient says that he only does this 3 times a day. He's had no recent problems with hematuria and no recent fever. He has no evidence of urolithiasis and a CT scan done at [facility] on 09/18/2017 showed no evidence of left renal calculus. A distended bladder with left hydroureteronephrosis was present at that time as well. Review of Systems All systems: negative (as noted in history of present illness.) Past Medical History Past Medical History: GERD/Reflux, GI Bleed, Hyperlipidemia, Liver Disease, Pneumonia, Prostate Disorder Additional Past Medical History / Comment(s): ETOH ABUSE-PT STATES HE HAD A FEW SIPS OF ALCOHOL LAST NITE, RECURRANT PANCREATITIS, ALCOHOLIC HEPATITIS, NEUROPATHY BILATERAL FEET SINCE BACK SURGERY, hx of CHRONIC URINARY RETENTION DUE TO BACK PROBLEMS-SELF CATHS, CHRONIC LOW BACK PAIN (HAS STIMULATOR THAT PT STATES DOES NOT WORK), HEMATEMESIS, CHRONIC LOOSE STOOLS. History of Any Multi-Drug Resistant Organisms: None Reported Past Surgical History: Back Surgery, Cholecystectomy, Orthopedic Surgery Additional Past Surgical History / Comment(s): EGDS, colonoscopy, bronchoscopy, BACK surgeries with TITANIUM PLATES MILTON and CAGES, KIDNEY STONES removed per pt, SPINAL CORD STIMULATOR, ISMAEL KNEE ARTHROSCOPIES, PINKY FINGER RT HAND REATTATCHED Past Anesthesia/Blood Transfusion Reactions: No Reported Reaction Smoking Status: Current every day smoker - Past Family History Father Family Medical History: Diabetes Mellitus Additional Family Medical History / Comment(s): Mother Family Medical History: Dementia, Hyperlipidemia, Hypertension Additional Family Medical History / Comment(s): Mother is living. Medications and Allergies Home Medications Medication Instructions Recorded Confirmed Type Folic Acid 1 mg PO DAILY #30 tablet 07/15/15 10/25/17 Rx Atorvastatin [Lipitor] 10 mg PO HS 09/27/15 10/25/17 History Albuterol Inhaler [Ventolin Hfa 2 puff INHALATION RT-Q4H PRN 03/01/17 10/25/17 History Inhaler] traZODone HCL 50 mg PO HS 04/04/17 10/25/17 History Omeprazole [PriLOSEC] 40 mg PO BID #60 capsule. 05/16/17 10/25/17 Rx Gabapentin [Neurontin] 400 mg PO TID 07/18/17 10/25/17 History cloNIDine HCL [Catapres] 0.1 mg PO TID #30 tab 08/23/17 10/25/17 Rx Acetaminophen-Codeine 300-30mg 1 tab PO TID 09/10/17 10/25/17 History [Tylenol w/codeine #3] DULoxetine HCL [Cymbalta] 60 mg PO DAILY 09/18/17 10/25/17 History Magnesium Oxide [Mag-Ox] 200 mg PO DAILY 09/18/17 10/25/17 History Tamsulosin HCl [Flomax] 0.4 mg PO DAILY 09/18/17 10/25/17 History Diazepam [Valium] 5 mg PO TID 10/20/17 10/25/17 History Lipase/Protease/Amylase [Rebel [place]cher 2 cap PO TID-W/MEALS 10/20/17 10/25/17 History 24,000 Units Capsule] Nicotine 21Mg/24Hr Patch [Habitrol] 1 patch TRANSDERM DAILY 10/20/17 10/25/17 History buPROPion XL [Wellbutrin XL] 150 mg PO DAILY 10/20/17 10/25/17 History Levofloxacin [Levaquin] 500 mg PO DAILY 3 Days #3 tab 10/24/17 10/25/17 Rx Allergies Allergy/AdvReac Type Severity Reaction Status Date / Time No Known Allergies Allergy Verified 10/25/17 08:19 Surgical - Exam Vital Signs Temp Pulse Resp BP Pulse Ox 98.8 F 54 L 18 110/69 100 10/25/17 02:50 10/25/17 02:50 10/25/17 02:50 10/25/17 02:50 10/25/17 02:50 - General chronically ill - Neck no masses, no lymphadectomy - Respiratory normal respiratory effort - Abdomen Abdomen: tender (mid abdomen), no organomegaly - Genitourinary normal penis with no external lesions, testicles present, testicles non-tender Results - Labs 10/25/17 03:20 10/25/17 03:20 Abnormal Lab Results - Last 24 Hours (Table) 10/25/17 10/25/17 10/25/17 Range/Units 03:20 03:20 04:43 RBC 3.59 L (4.30-5.90) m/uL Hgb 10.7 L (13.0-17.5) gm/dL Hct 32.9 L (39.0-53.0) % Sodium 135 L (137-145) mmol/L BUN 4 L (9-20) mg/dL Alkaline Phosphatase 252 H (38-126) U/L C-Reactive Protein 45.5 H (<10.0) mg/L Total Protein 5.5 L (6.3-8.2) g/dL Albumin 2.9 L (3.5-5.0) g/dL Lipase 315 H (23-300) U/L Ur Leukocyte Esterase Moderate H (Negative) Urine WBC 8 H (0-5) /hpf Urine Yeast (Budding) Moderate H (None) /hpf Diabetes panel 10/25/17 Range/Units 03:20 Sodium 135 L (137-145) mmol/L Potassium 4.2 (3.5-5.1) mmol/L Chloride 100 (98-107) mmol/L Carbon Dioxide 24 (22-30) mmol/L BUN 4 L (9-20) mg/dL Creatinine 0.70 (0.66-1.25) mg/dL Glucose 95 (74-99) mg/dL Calcium 8.7 (8.4-10.2) mg/dL AST 28 (17-59) U/L ALT 41 (21-72) U/L Alkaline Phosphatase 252 H (38-126) U/L Total Protein 5.5 L (6.3-8.2) g/dL Albumin 2.9 L (3.5-5.0) g/dL Calcium panel 10/25/17 Range/Units 03:20 Calcium 8.7 (8.4-10.2) mg/dL Albumin 2.9 L (3.5-5.0) g/dL Pituitary panel 10/25/17 Range/Units 03:20 Sodium 135 L (137-145) mmol/L Potassium 4.2 (3.5-5.1) mmol/L Chloride 100 (98-107) mmol/L Carbon Dioxide 24 (22-30) mmol/L BUN 4 L (9-20) mg/dL Creatinine 0.70 (0.66-1.25) mg/dL Glucose 95 (74-99) mg/dL Calcium 8.7 (8.4-10.2) mg/dL Adrenal panel 10/25/17 Range/Units 03:20 Sodium 135 L (137-145) mmol/L Potassium 4.2 (3.5-5.1) mmol/L Chloride 100 (98-107) mmol/L Carbon Dioxide 24 (22-30) mmol/L BUN 4 L (9-20) mg/dL Creatinine 0.70 (0.66-1.25) mg/dL Glucose 95 (74-99) mg/dL Calcium 8.7 (8.4-10.2) mg/dL Total Bilirubin 0.4 (0.2-1.3) mg/dL AST 28 (17-59) U/L ALT 41 (21-72) U/L Alkaline Phosphatase 252 H (38-126) U/L Total Protein 5.5 L (6.3-8.2) g/dL Albumin 2.9 L (3.5-5.0) g/dL Assessment and Plan (1) Hydroureteronephrosis Narrative/Plan: The patient's left hydroureteronephrosis is secondary to reflux and not obstruction. The reflux is worsened when the patient allows his bladder to over distend. No specific treatment is necessary other than increasing the frequency of intermittent catheterization so that the bladder does not distend beyond 500 cc. Unfortunately I have discussed this with the patient on numerous occasions in the past but he refuses to do this. Fortunately his overall renal function has been fairly well maintained. The patient most likely has pyuria and bacteriuria intermittently due to self-catheterization and he should not be treated with antibiotics unless he is symptomatic. Current Visit: Yes Status: Acute Code(s): N13.30 - UNSPECIFIED HYDRONEPHROSIS SNOMED Code(s): 53729017
[2017-10-25] MEDS ORDERED: traZODone HCL 50 MG TAB PO SCH (21:00)
[2017-10-25] MEDS ORDERED: ATORVASTATIN 10 MG TAB PO SCH (21:00)
[2017-10-25] MEDS ORDERED: LACTATED RINGERS 1,000 ML IV SCH (22:00)
[2017-10-26 00:14] LABS: Glucose,Whole Blood 120 mg/dL (75-99)
[2017-10-26] MEDS: metroNIDAZOLE-NS PMX 500 MG in SALINE 1 100ML.BAG IVPB SCH ×2 (06:05→14:26)
[2017-10-26] MEDS: KETOROLAC 30 MG/ML 1 ML VIAL IVP SCH ×2 (06:06→12:41)
[2017-10-26 06:41] VITALS: BP 137/87; PULSE 73; RESP 16; TEMP 97.3
[2017-10-26] MEDS: LIPASE 5,000/PROTEASE 17,000/AMYLASE 27,0000 PO SCH ×2 (09:02→12:20)
[2017-10-26] MEDS: Acetaminophen-Codeine 300-30mg TAB PO SCH ×2 (09:05→16:03)
[2017-10-26] MEDS: DIAZEPAM 5 MG TAB PO SCH ×2 (09:06→16:03)
[2017-10-26] MEDS: MAGNESIUM OXIDE 400 MG TAB PO SCH (09:07)
[2017-10-26] MEDS: buPROPion XL 150 MG TAB.ER.24H PO SCH (09:07)
[2017-10-26] MEDS: FOLIC ACID 1 MG TAB PO SCH (09:07)
[2017-10-26] MEDS: cloNIDine HCL 0.1 MG TAB PO SCH ×2 (09:07→16:03)
[2017-10-26] MEDS: LEVOFLOXACIN 500 MG TAB PO SCH (09:07)
[2017-10-26] MEDS: GABAPENTIN 400 MG CAP PO SCH ×2 (09:08→16:03)
[2017-10-26] MEDS: PANTOPRAZOLE 40 MG/10 ML VIAL IV SCH (09:08)
[2017-10-26] MEDS: DULoxetine HCL 60 MG CAPSULE.DR PO SCH (09:08)
[2017-10-26] MEDS: NICOTINE 21MG/24HR PATCH TRANSDERM SCH (09:08)
[2017-10-26] MEDS: TAMSULOSIN 0.4 MG CAP.ER.24H PO SCH (09:09)
--- NOTE | 2017-10-26 10:59 | P.PN ---
Subjective Progress Note Date: 10/26/17 47-year-old male who presented to the emergency room with a chief complaint of abdominal pain. The patient was just discharged home the day before. He was admitted at that time for acute on chronic alcoholic pancreatitis. The patient states his abdominal pain is different than his pain has been previously. He reports left lower quadrant abdominal pain. He denies nausea or vomiting. Change in bowel habits. Denies fever or chills. Denies chest pain or pressure. Denies difficulty urinating. Denies urinary frequency , urgency, or dysuria. Denies hematuria. The patient has a history of pancreatitis secondary to alcohol abuse, gastroesophageal reflux disease, hyperlipidemia, and occasional urinary retention. He has was a history of anxiety and depression. He is a current cigarette smoker and smokes 2 packs per day. He continues to drink alcohol and reports his last drink was last night prior to coming back to the hospital. KUB x-ray: Air fluid levels are seen throughout the abdomen which are nonspecific. No dilated loops of bowel are seen. CT abdomen and pelvis: Moderate stranding and edema noted about the body and head of the pancreas with moderate wall thickening of the duodenum bulb and duodenum. Placement was focal pancreatitis versus duodenitis. Mild to moderate left hydroureteronephrosis to the level of the UVJ. No objective lesion was identified. Findings may represent recently passed calculus, infectious process, or stricture. Fluid noted throughout the small bowel which may represent nonspecific enterocolitis. Laboratory data: WBC 8.6. Hemoglobin 10.7. Platelet count 302. Sodium 135. Potassium 4.2. BUN 4. Creatinine 0.70. AST 28. ALT 41. Alkaline phosphatase 252. Amylase 48. Lipase 310. C-reactive protein: 45.5 Urinalysis reveals: Clear yellow urine, moderate leukocyte esterase, WBC 8, moderate yeast The patient was admitted to the hospital under the care of Dr. Trejo. Consultations were placed to general surgery. 10/26/2017 Patient seen and examined at the bedside. Patient continues to report left lower quadrant pain and epigastric pain but states it is improved since yesterday. General surgery evaluated the patient yesterday. No intervention was recommended. GI also evaluated the patient yesterday and patient is scheduled for EGD today. He is currently nothing by mouth. Urology was consulted and evaluated patient yesterday. 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 Left hydroureteronephrosis is chronic for the patient secondary to reflux of the urine per urology. Urology also recommends only treating with antibiotics if patient is symptomatic as patient will likely have pyuria and bacteriuria intermittently due to self-catheterization. During last admission, the patient was symptomatic and he was placed on Levaquin. He is currently finishing his course of Levaquin during this hospitalization. He will not require antibiotics at the time of discharge. Patient reports he self caths at home but states he only does it once or twice a day. He states he is supposed to do it 4 times a day. He reports that his catheters are shipped to his house. Patient's vital signs remain stable. He is afebrile. Blood pressure 137/87. Objective - Vital Signs Vital signs: Vital Signs Temp 97.3 F L 10/26/17 05:30 Pulse 73 10/26/17 05:30 Resp 16 10/26/17 05:30 BP 137/87 10/26/17 05:30 Pulse Ox 98 10/26/17 05:30 Intake & Output 10/25/17 10/26/17 10/26/17 18:59 06:59 18:59 Intake Total 1150 Output Total 600 850 550 Balance -600 300 -550 Intake: Intake, IV Titration 1150 Amount Sodium Chloride 0.9% 1, 1050 000 ml @ 100 mls/hr IV . Q10H STA Rx#:[id number] metroNIDAZOLE-NS PMX 500 100 mg In Saline 1 100ml.bag @ 100 mls/hr IVPB Q8HR JANE Rx#:[id number] Output: Urine 600 850 550 Straight 600 850 550 Other: Voiding Method Self-Catheterization Self-Catheterization Self-Catheterization # Voids 1 - Constitutional Constitutional Comment(s): 47-year-old male General appearance: Present: cooperative, no acute distress - EENT Eyes: Present: EOMI, PERRLA ENT: Present: hearing grossly normal - Respiratory Respiratory: bilateral: CTA, negative: rales, rhonchi, wheezing - Cardiovascular Rhythm: regular Heart sounds: normal: S1, S2 Abnormal Heart Sounds: Absent: systolic murmur, diastolic murmur - Gastrointestinal General gastrointestinal: Present: normal bowel sounds, soft, tenderness. Absent: rigid - Genitourinary Genitourinary Comment(s): Chronic urinary retention requiring self-catheterization - Integumentary Integumentary: Present: normal. Absent: cellulitis, cyanotic, flushed, jaundiced - Neurologic Neurologic: Present: CNII-XII intact - Musculoskeletal Musculoskeletal: Present: strength equal bilaterally - Psychiatric Psychiatric: Present: A&O x's 3 - Labs CBC & Chem 7: 10/25/17 03:20 10/25/17 03:20 Labs: Abnormal Lab Results - Last 24 Hours (Table) 10/25/17 Range/Units 23:53 POC Glucose (mg/dL) 120 H (75-99) mg/dL Microbiology - Last 24 Hours (Table) 10/25/17 05:40 Blood Culture - Preliminary Blood No Growth after 24 hours Assessment and Plan Plan: ASSESSMENT: Left lower quadrant abdominal pain, colitis ruled out per general surgery Acute on chronic alcoholic pancreatitis History of alcohol abuse, currently still drinking Chronic left hydroureteronephrosis secondary to urinary reflux from bladder into left ureter Urinary retention secondary to atonic bladder, patient instructed to self cath frequently Recent diagnosis of symptomatic urinary tract infection, currently finishing course of Levaquin Multiple hospitalizations secondary to abdominal pain and pancreatitis, patient has over 30 visits to the hospital in 2018 Chronic low back pain Generalized anxiety disorder Depression Nicotine dependence, patient is a current cigarette smoker, patient reports to packs per day PLAN: General surgery on consult. Appreciate recommendations and input GI on consult. Appreciate recommendations and input NPO. Patient scheduled for EGD today Urology on consult. Appreciate recommendations and input Patient encouraged to straight cath more frequently at home. Patient states he only does it 1-2 times a day. States catheters are shipped directly to his house and he has no barriers to obtaining catheters. Patient to continue Levaquin during hospitalization, as he was being treated for symptomatic UTI. Patient does not need rx for Levaquin at the time of discharge. Patient may receive his home pain medications of Tylenol #3 while hospitalized. No additional narcotics to be ordered. Encourage alcohol abstinence Home meds as appropriate Monitor labs GI prophylaxis: Protonix 40 mg IV Daily DVT prophylaxis: SCDs to bilateral lower extremities Monitor vital signs and address as appropriate Further recommendations pending patient's course Nurse practitioner note has been reviewed by physician. Signing provider agrees with the documented findings, assessment, and plan of care.
[2017-10-26] MEDS ORDERED: PROPOFOL 10 MG/ML 20 ML VIAL IV ONE (13:46)
[2017-10-26] MEDS ORDERED: IV FLUID CONTINUATION 1,000 ML IV ONE (13:47)
--- NOTE | 2017-10-26 14:02 | P.PCN ---
Date of Procedure: 10/26/17 Procedure(s) Performed: BRIEF HISTORY: Patient is a 47-year-old, pleasant, white male, scheduled for an upper endoscopy as a part of evaluation of chronic epigastric pain. 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 During this hospitalization he did have a CT of the abdomen and pelvis that showed thickening of the duodenum as well as pancreas. PROCEDURE PERFORMED: Esophagogastroduodenoscopy with biopsy . PREOPERATIVE DIAGNOSIS: chronic epigastric pain IV sedation per anesthesia. PROCEDURE: After informed consent was obtained, the patient was brought into the endoscopy unit. IV sedation was administered by Anesthesia under continuous monitoring. Initially the Olympus GIF-140 video endoscope was inserted into the mouth. Esophagus intubated without any difficulty. It was gradually advanced into the stomach and duodenum and carefully examined. The bulb and the second part of the duodenum appeared normal. The scope at this time was withdrawn to the stomach, adequately insufflated with air, and upon careful examination, mucosa of the antrum, and mild gastritis and biopsies were done from this area. The body, cardia and the fundus appeared normal. The scope was then withdrawn into the esophagus. The GE junction was located at 36 cm from the incisors. There were 2 superficial erosions at the GE junction consistent with LA grade B reflux esophagitis. Rest of the esophagus appeared normal and the patient tolerated the procedure well. IMPRESSION: 1. Mild duodenitis involving the duodenal bulb and second part of the duodenum most likely related to pancreatitis. 2 Two superficial erosions at the GE junction consistent with LA grade B reflux esophagitis RECOMMENDATIONS: The findings of this examination were discussed with the patient. Diet will be advanced as tolerated. Await biopsy results.
--- NOTE | 2017-10-26 14:23 | P.DS ---
Providers Date of admission: 10/25/17 05:17 Expected date of discharge: 10/26/17 Attending physician: Carrillo Leo Consults: 10/25/17 05:27 Consult Physician Stat Consulting Provider: Aileen Genao Consult Reason/Comments: enterocolitis Do you want consulting provider notified?: Yes 10/25/17 10:45 Consult Physician Routine Consulting Provider: Consuelo Kellogg Consult Reason/Comments: epigastric pain Do you want consulting provider notified?: Yes 10/25/17 11:20 Consult Physician Routine Consulting Provider: Sivakumar Velazquez Consult Reason/Comments: left hydroureteronephrosis Do you want consulting provider notified?: Yes Primary care physician: [facility] Course: 47-year-old male who presented to the emergency room with a chief complaint of abdominal pain. The patient was just discharged home the day before. He was admitted at that time for acute on chronic alcoholic pancreatitis. The patient states his abdominal pain is different than his pain has been previously. He reports left lower quadrant abdominal pain. He denies nausea or vomiting. Change in bowel habits. Denies fever or chills. Denies chest pain or pressure. Denies difficulty urinating. Denies urinary frequency , urgency, or dysuria. Denies hematuria. The patient has a history of pancreatitis secondary to alcohol abuse, gastroesophageal reflux disease, hyperlipidemia, and occasional urinary retention. He has was a history of anxiety and depression. He is a current cigarette smoker and smokes 2 packs per day. He continues to drink alcohol and reports his last drink was last night prior to coming back to the hospital. KUB x-ray: Air fluid levels are seen throughout the abdomen which are nonspecific. No dilated loops of bowel are seen. CT abdomen and pelvis: Moderate stranding and edema noted about the body and head of the pancreas with moderate wall thickening of the duodenum bulb and duodenum. Placement was focal pancreatitis versus duodenitis. Mild to moderate left hydroureteronephrosis to the level of the UVJ. No objective lesion was identified. Findings may represent recently passed calculus, infectious process, or stricture. Fluid noted throughout the small bowel which may represent nonspecific enterocolitis. Laboratory data: WBC 8.6. Hemoglobin 10.7. Platelet count 302. Sodium 135. Potassium 4.2. BUN 4. Creatinine 0.70. AST 28. ALT 41. Alkaline phosphatase 252. Amylase 48. Lipase 310. C-reactive protein: 45.5 Urinalysis reveals: Clear yellow urine, moderate leukocyte esterase, WBC 8, moderate yeast The patient was admitted to the hospital under the care of Dr. Trejo. Consultations were placed to general surgery. 10/26/2017 1000-Patient seen and examined at the bedside. Patient continues to report left lower quadrant pain and epigastric pain but states it is improved since yesterday. General surgery evaluated the patient yesterday. No intervention was recommended. GI also evaluated the patient yesterday and patient is scheduled for EGD today. He is currently nothing by mouth. Urology was consulted and evaluated patient yesterday. 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 Left hydroureteronephrosis is chronic for the patient secondary to reflux of the urine per urology. Urology also recommends only treating with antibiotics if patient is symptomatic as patient will likely have pyuria and bacteriuria intermittently due to self-catheterization. During last admission, the patient was symptomatic and he was placed on Levaquin. He is currently finishing his course of Levaquin during this hospitalization. He will not require antibiotics at the time of discharge. Patient reports he self caths at home but states he only does it once or twice a day. He states he is supposed to do it 4 times a day. He reports that his catheters are shipped to his house. Patient's vital signs remain stable. He is afebrile. Blood pressure 137/87. 1430-Patient underwent EGD with Dr. Kellogg revealing mild duodenitis involving the duodenal bulb and second part of the duodenum most likely related to pancreatitis. 2 superficial erosions at the GE junction consistent with LA grade B reflux esophagitis. No active bleeding was visualized. The patient was deemed stable for discharge. He is to follow up on an outpatient basis with Dr. Trejo, Dr. Kellogg, and Dr. Montalvo. The patient was advised to abstain from alcohol use. He was also encouraged to straight cath frequently, at least 3-4 times daily. DISCHARGE DIAGNOSIS: Left lower quadrant abdominal pain, colitis ruled out per general surgery S/P EGD revealing mild duodenitis involving the duodenal bulb and second part of the duodenum most likely related to pancreatitis. 2 superficial erosions at the GE junction consistent with LA grade B reflux esophagitis. 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 Signing provider agrees with the documented findings, assessment, and plan of care. Plan - Discharge Summary Discharge Rx Participant: No New Discharge Prescriptions: Continue Folic Acid 1 mg PO DAILY #30 tablet Atorvastatin [Lipitor] 10 mg PO HS Albuterol Inhaler [Ventolin Hfa Inhaler] 2 puff INHALATION RT-Q4H PRN PRN Reason: Shortness Of Breath traZODone HCL 50 mg PO HS Omeprazole [PriLOSEC] 40 mg PO BID #60 capsule. Gabapentin [Neurontin] 400 mg PO TID cloNIDine HCL [Catapres] 0.1 mg PO TID #30 tab Acetaminophen-Codeine 300-30mg [Tylenol w/codeine #3] 1 tab PO TID DULoxetine HCL [Cymbalta] 60 mg PO DAILY Magnesium Oxide [Mag-Ox] 200 mg PO DAILY Tamsulosin HCl [Flomax] 0.4 mg PO DAILY buPROPion XL [Wellbutrin XL] 150 mg PO DAILY Nicotine 21Mg/24Hr Patch [Habitrol] 1 patch TRANSDERM DAILY Diazepam [Valium] 5 mg PO TID Lipase/Protease/Amylase [Rbeel Belcher 24,000 Units Capsule] 2 cap PO TID-W/MEALS Levofloxacin [Levaquin] 500 mg PO DAILY 3 Days #3 tab Discharge Medication List Folic Acid 1 mg PO DAILY #30 tablet 07/15/15 [Rx] Atorvastatin [Lipitor] 10 mg PO HS 09/27/15 [History] Albuterol Inhaler [Ventolin Hfa Inhaler] 2 puff INHALATION RT-Q4H PRN 03/01/17 [ History] traZODone HCL 50 mg PO HS 04/04/17 [History] Omeprazole [PriLOSEC] 40 mg PO BID #60 capsule. 05/16/17 [Rx] Gabapentin [Neurontin] 400 mg PO TID 07/18/17 [History] cloNIDine HCL [Catapres] 0.1 mg PO TID #30 tab 08/23/17 [Rx] Acetaminophen-Codeine 300-30mg [Tylenol w/codeine #3] 1 tab PO TID 09/10/17 [ History] DULoxetine HCL [Cymbalta] 60 mg PO DAILY 09/18/17 [History] Magnesium Oxide [Mag-Ox] 200 mg PO DAILY 09/18/17 [History] Tamsulosin HCl [Flomax] 0.4 mg PO DAILY 09/18/17 [History] Diazepam [Valium] 5 mg PO TID 10/20/17 [History] Lipase/Protease/Amylase [Creon Dr 24,000 Units Capsule] 2 cap PO TID-W/MEALS 07/08 [History] Nicotine 21Mg/24Hr Patch [Habitrol] 1 patch TRANSDERM DAILY 10/20/17 [History] buPROPion XL [Wellbutrin XL] 150 mg PO DAILY 10/20/17 [History] Levofloxacin [Levaquin] 500 mg PO DAILY 3 Days #3 tab 10/24/17 [Rx] Follow up Appointment(s)/Referral(s): Carrillo Leo Jr, DO [Primary Care Provider] - 1 Week Consuelo Kellogg MD [STAFF PHYSICIAN] - 2 Weeks Cory Montalvo MD [STAFF PHYSICIAN] - 2 Weeks Activity/Diet/Wound Care/Special Instructions: Straight cath to be performed 3-4 times a day No alcohol use Discharge Disposition: HOME SELF-CARE
== END 2017-10-26 16:25 | disposition home or self-care (01) ==
LOC: EC 02:48 → 5MS5E 05:17
PROVIDERS: ADMIT Family Medicine; ATTEND Family Medicine
DX: K29.80 Duodenitis without bleeding (principal); K29.50 Unspecified chronic gastritis without bleeding; K28.9 Gastrojejunal ulcer, unspecified as acute or chronic, without hemorrhage or perforation; E78.5 Hyperlipidemia, unspecified; F10.10 Alcohol abuse, uncomplicated; F17.210 Nicotine dependence, cigarettes, uncomplicated; F32.9 Major depressive disorder, single episode, unspecified; F41.1 Generalized anxiety disorder; K85.20 Alcohol induced acute pancreatitis without necrosis or infection; K86.0 Alcohol-induced chronic pancreatitis; G89.29 Other chronic pain; K21.0 Gastro-esophageal reflux disease with esophagitis; K52.9 Noninfective gastroenteritis and colitis, unspecified; K59.00 Constipation, unspecified; N39.0 Urinary tract infection, site not specified; N31.2 Flaccid neuropathic bladder, not elsewhere classified; R33.8 Other retention of urine; N13.30 Unspecified hydronephrosis; Z79.899 Other long term (current) drug therapy; Z87.440 Personal history of urinary (tract) infections; Z82.49 Family history of ischemic heart disease and other diseases of the circulatory system; Z83.3 Family history of diabetes mellitus
CPT/HCPCS: 96376 ×2; 96366 ×2; 96361; 96365; 96375; 99285; 36415; 88305; 80053; 82150; 83690; 85025; 86140; 81001; 87040; 74018; 74177; 43239; G0378 ×2; S4990 ×2; J2405; J0696; J1885 ×2; J2270; J2704; C9113 ×2; Q9967

== ENCOUNTER 2017-10-27 12:54 | Inpatient (IN) | payer MEDICARE, OTHER ==
[2017-10-27] MEDS ORDERED: ONDANSETRON 4 MG/2 ML VIAL IVP STA (13:30)
[2017-10-27] MEDS ORDERED: FAMOTIDINE 20 MG/2 ML VIAL IV STA (13:30)
[2017-10-27] MEDS ORDERED: SODIUM CHLORIDE 0.9% 1,000 ML IV STA (13:30)
--- NOTE | 2017-10-27 13:33 | ED ---
General Adult HPI - General Source: patient, RN notes reviewed Mode of arrival: wheelchair Limitations: no limitations <Grayson Lopes - Last Filed: 10/27/17 16:30> <Herman Neal - Last Filed: 10/27/17 16:42> - General Chief complaint: Abdominal Pain Stated complaint: Abd Pain Time Seen by Provider: 10/27/17 13:11 - History of Present Illness Initial comments: Patient 47-year-old male presented to the emergency room today with chief complaint of pain in the epigastric and left upper quadrant. Patient does admit that it feels different than his typical pancreatitis and was seen here in the emergency room for this pain admitted and discharged 2 days ago. Patient does admit that this is the same pain that he was having at that time. Patient states that he does not have anything at home for pain. He does admit that he had a few sips of beer 3 days ago but the important arrest. Patient admits to history of alcoholism. Patient denies any other complaints. Patient denies any recent fever, chills, shortness of breath, chest pain, vomiting, numbness or tingling, dysuria or hematuria, constipation or diarrhea, headaches or visual changes, or any other complaints. (Grayson Lopes) - Related Data Home Medications Medication Instructions Recorded Confirmed Atorvastatin [Lipitor] 10 mg PO HS 09/27/15 10/27/17 Albuterol Inhaler [Ventolin Hfa 2 puff INHALATION RT-Q4H PRN 03/01/17 10/27/17 Inhaler] traZODone HCL 50 mg PO HS 04/04/17 10/27/17 Gabapentin [Neurontin] 400 mg PO TID 07/18/17 10/27/17 Acetaminophen-Codeine 300-30mg 1 tab PO TID 09/10/17 10/27/17 [Tylenol w/codeine #3] DULoxetine HCL [Cymbalta] 60 mg PO DAILY 09/18/17 10/27/17 Magnesium Oxide [Mag-Ox] 200 mg PO DAILY 09/18/17 10/27/17 Tamsulosin HCl [Flomax] 0.4 mg PO DAILY 09/18/17 10/27/17 Diazepam [Valium] 5 mg PO TID 10/20/17 10/27/17 Lipase/Protease/Amylase [Creon Dr 2 cap PO TID-W/MEALS 10/20/17 10/27/17 24,000 Units Capsule] Nicotine 21Mg/24Hr Patch [Habitrol] 1 patch TRANSDERM DAILY 10/20/17 10/27/17 buPROPion XL [Wellbutrin XL] 150 mg PO DAILY 10/20/17 10/27/17 Previous Rx's Medication Instructions Recorded Folic Acid 1 mg PO DAILY #30 tablet 07/15/15 Omeprazole [PriLOSEC] 40 mg PO BID #60 capsule. 05/16/17 cloNIDine HCL [Catapres] 0.1 mg PO TID #30 tab 08/23/17 Levofloxacin [Levaquin] 500 mg PO DAILY 3 Days #3 tab 10/24/17 Allergies Allergy/AdvReac Type Severity Reaction Status Date / Time No Known Allergies Allergy Verified 10/27/17 12:57 Review of Systems ROS Other: All systems not noted in ROS Statement are negative. <Grayson Lopes - Last Filed: 10/27/17 16:30> ROS Other: All systems not noted in ROS Statement are negative. <Herman Neal - Last Filed: 10/27/17 16:42> ROS Statement: Those systems with pertinent positive or pertinent negative responses have been documented in the HPI. Past Medical History Past Medical History: GERD/Reflux, GI Bleed, Hyperlipidemia, Liver Disease, Pneumonia, Prostate Disorder Additional Past Medical History / Comment(s): ETOH ABUSE-PT STATES HE HAD A FEW SIPS OF ALCOHOL LAST NITE, RECURRANT PANCREATITIS, ALCOHOLIC HEPATITIS, NEUROPATHY BILATERAL FEET SINCE BACK SURGERY, hx of CHRONIC URINARY RETENTION DUE TO BACK PROBLEMS-SELF CATHS, CHRONIC LOW BACK PAIN (HAS STIMULATOR THAT PT STATES DOES NOT WORK), HEMATEMESIS, CHRONIC LOOSE STOOLS. History of Any Multi-Drug Resistant Organisms: None Reported Past Surgical History: Back Surgery, Cholecystectomy, Orthopedic Surgery Additional Past Surgical History / Comment(s): EGDS, colonoscopy, bronchoscopy, BACK surgeries with TITANIUM PLATES MILTON and CAGES, KIDNEY STONES removed per pt, SPINAL CORD STIMULATOR, ISMAEL KNEE ARTHROSCOPIES, PINKY FINGER RT HAND REATTATCHED Past Anesthesia/Blood Transfusion Reactions: No Reported Reaction Past Psychological History: Anxiety, Depression Smoking Status: Current every day smoker Past Alcohol Use History: None Reported Past Drug Use History: None Reported - Past Family History Father Family Medical History: Diabetes Mellitus Additional Family Medical History / Comment(s): Mother Family Medical History: Dementia, Hyperlipidemia, Hypertension Additional Family Medical History / Comment(s): Mother is living. <Grayson Lopes - Last Filed: 10/27/17 16:30> General Exam Limitations: no limitations <Grayson Lopes - Last Filed: 10/27/17 16:30> <Herman Neal - Last Filed: 10/27/17 16:42> - General Exam Comments Initial Comments: General: The patient is awake and alert, in no distress, and does not appear acutely ill. Eye: Pupils are equal, round and reactive to light, extra-ocular movements are intact. No nystagmus. There is normal conjunctiva bilaterally. No signs of icterus. Ears, nose, mouth and throat: There are moist mucous membranes and no oral lesions. Neck: The neck is supple, there is no tenderness or JVD. Cardiovascular: There is a regular rate and rhythm. No murmur, rub or gallop is appreciated. Respiratory: Lungs are clear to auscultation, respirations are non-labored, breath sounds are equal. No wheezes, stridor, rales, or rhonchi. Gastrointestinal: Abdomen soft on palpation. Patient does have tenderness epigastrically left upper quadrant. No rebound, guarding, CVA tenderness. Musculoskeletal: Normal ROM, no tenderness. Strength 5/5. Sensation intact. Pulses equal bilaterally 2+. Neurological: A&O x 3. CN II-XII intact, There are no obvious motor or sensory deficits. Coordination appears grossly intact. Speech is normal. Skin: Skin is warm and dry and no rashes or lesions are noted. Psychiatric: Cooperative, appropriate mood & affect, normal judgment. (Grayson Lopes) Course <Grayson Lopes - Last Filed: 10/27/17 16:30> <Herman Neal - Last Filed: 10/27/17 16:42> Vital Signs 10/27/17 10/27/17 12:57 15:03 Temperature 98.7 F Pulse Rate 103 H 84 Respiratory 20 16 Rate Blood Pressure 118/79 150/99 O2 Sat by Pulse 99 99 Oximetry - Reevaluation(s) Reevaluation #1: 10/27/17 16:41 PA supervision: I did personally do a [id number] evaluation the patient did discuss the findings with him. His lipase today is 1976 patient will be admitted. I do agree with the assessment and plan (Herman Neal) Medical Decision Making - Lab Data Result diagrams: 10/27/17 14:23 10/27/17 14:23 <Grayson Lopes - Last Filed: 10/27/17 16:30> - Lab Data Result diagrams: 10/27/17 14:23 10/27/17 14:23 <Herman Neal - Last Filed: 10/27/17 16:42> - Medical Decision Making Patient's labs are been reviewed does show a lipase elevated crit of 1900. Patient does admit that he has not drank in leads 3 days. Patient has had 2 previous admissions for similar symptoms of this abdominal pain. Case was discussed with [facility] physician Dr. Neil paris but the patient states pain medication of Tylenol 3 with consult to GI. (Grayson Lopes) - Lab Data Lab Results 10/27/17 10/27/17 10/27/17 Range/Units 14:23 14:23 14:23 WBC 7.6 (3.8-10.6) k/uL RBC 3.76 L (4.30-5.90) m/uL Hgb 11.2 L (13.0-17.5) gm/dL Hct 34.8 L (39.0-53.0) % MCV 92.5 (80.0-100.0) fL MCH 29.7 (25.0-35.0) pg MCHC 32.1 (31.0-37.0) g/dL RDW 15.5 (11.5-15.5) % Plt Count 289 (150-450) k/uL Neutrophils % 78 % Lymphocytes % 14 % Monocytes % 5 % Eosinophils % 2 % Basophils % 0 % Neutrophils # 5.9 (1.3-7.7) k/uL Lymphocytes # 1.1 (1.0-4.8) k/uL Monocytes # 0.4 (0-1.0) k/uL Eosinophils # 0.1 (0-0.7) k/uL Basophils # 0.0 (0-0.2) k/uL PT 10.6 (9.0-12.0) sec INR 1.1 (<1.2) APTT 25.4 (22.0-30.0) sec Sodium 137 (137-145) mmol/L Potassium 4.3 (3.5-5.1) mmol/L Chloride 103 (98-107) mmol/L Carbon Dioxide 22 (22-30) mmol/L Anion Gap 12 mmol/L BUN 4 L (9-20) mg/dL Creatinine 0.60 L (0.66-1.25) mg/dL Est GFR (CKD-EPI)AfAm >90 (>60 ml/min/1.73 sqM) Est GFR (CKD-EPI)NonAf >90 (>60 ml/min/1.73 sqM) Glucose 92 (74-99) mg/dL Calcium 8.9 (8.4-10.2) mg/dL Total Bilirubin 0.4 (0.2-1.3) mg/dL AST 22 (17-59) U/L ALT 39 (21-72) U/L Alkaline Phosphatase 232 H (38-126) U/L Total Protein 5.7 L (6.3-8.2) g/dL Albumin 3.0 L (3.5-5.0) g/dL Amylase 168 H (30-110) U/L Lipase 1976 H (23-300) U/L Disposition Is patient prescribed a controlled substance at d/c from ED?: No Time of Disposition: 16:31 <Grayson Lopes - Last Filed: 10/27/17 16:30> <Herman Neal - Last Filed: 10/27/17 16:42> Clinical Impression: Acute pancreatitis Disposition: ADMITTED IP TO THIS HOSP Condition: Good Referrals: Carrillo eLo Jr, [Primary Care Provider] - 1-2 days
[2017-10-27 14:49] LABS: Basophils % (A) 0 %; Eosinophils # (A) 0.1 k/uL (0-0.7); Eosinophils % (A) 2 %; HCT 34.8 % (39.0-53.0); HGB 11.2 gm/dL (13.0-17.5); Lymphocytes # (A) 1.1 k/uL (1.0-4.8); Lymphocytes % (A) 14 %; MCH 29.7 pg (25.0-35.0); MCHC 32.1 g/dL (31.0-37.0); MCV 92.5 fL (80.0-100.0); Mean Platelet Volume 7.5; Monocytes # (A) 0.4 k/uL (0-1.0); Monocytes % (A) 5 %; Neutrophils # (A) 5.9 k/uL (1.3-7.7); Neutrophils % (A) 78 %; Platelet Count 289 k/uL (150-450); RBC 3.76 m/uL (4.30-5.90); RDW 15.5 % (11.5-15.5); WBC 7.6 k/uL (3.8-10.6)
--- NOTE | 2017-10-27 14:56 | XR ---
EXAMINATION TYPE: XR KUB DATE OF EXAM: 10/27/2017 COMPARISON: 10/25/2017 HISTORY: Abdominal pain TECHNIQUE: One view abdominal series FINDINGS: The osseous structures are intact. The bowel gas pattern is nonspecific. Postsurgical changes noted. Stimulator device seen. Scattered air-fluid levels are seen. Arthropathy of the hips with diffuse os teopenia. IMPRESSION: 1. Findings there is similar to the prior exam of 10/25/2017 2 days prior. Pattern of the bowel is nons pecific. Ileus or enteritis in the differential diagnosis. Findings also appears similar to the CT sc an performed on 10/25/2017.
[2017-10-27 15:00] LABS: ALT 39 U/L (21-72); AST 22 U/L (17-59); Alkaline Phosphatase 232 U/L (38-126); Amylase 168 U/L (30-110); Anion Gap 12 mmol/L; Blood Urea Nitrogen 4 mg/dL (9-20); Calcium 8.9 mg/dL (8.4-10.2); Carbon Dioxide 22 mmol/L (22-30); Chloride 103 mmol/L (98-107); Glucose 92 mg/dL (74-99); Potassium 4.3 mmol/L (3.5-5.1); Sodium 137 mmol/L (137-145); Total Bilirubin 0.4 mg/dL (0.2-1.3); Total Protein 5.7 g/dL (6.3-8.2)
[2017-10-27 15:02] LABS: INR 1.1 (<1.2); Partial Thromboplastin Time 25.4 sec (22.0-30.0); Prothrombin Time 10.6 sec (9.0-12.0)
[2017-10-27 15:08] LABS: Lipase 1976 U/L (23-300)
[2017-10-27] MEDS ORDERED: MORPHINE SULFATE 2 MG/ML SYRINGE IVP STA (16:17)
[2017-10-27] MEDS ORDERED: NALOXONE 0.4 MG/ML 1 ML VIAL IV PRN (16:32)
[2017-10-27] MEDS ORDERED: ONDANSETRON 4 MG/2 ML VIAL IVP PRN (16:32)
[2017-10-27] MEDS ORDERED: SODIUM CHLORIDE 0.9% 1,000 ML IV ONE (16:32)
[2017-10-27 17:21] VITALS: BMI 23.8
[2017-10-27] MEDS: Acetaminophen-Codeine 300-30mg TAB PO PRN ×2 (18:07→22:03)
[2017-10-27 18:08] LABS: Appearance,Urine Clear (Clear); Bacteria,Urine Rare /hpf; Bilirubin,Urine Negative (Negative); Blood,Urine Negative (Negative); Budding Yeast,Urine Many /hpf; Color,Urine Yellow; Glucose,Urine (UA) Negative (Negative); Hyaline Casts,Urine 3 /lpf (0-2); Ketones,Urine 1+ (Negative); Leukocyte Esterase,Urine Moderate (Negative); Mucus,Urine Rare /hpf; Nitrite,Urine Negative (Negative); PH, Urine 5.5 (5.0-8.0); Protein,Urine Negative (Negative); RBC,Urine 10 /hpf (0-5); Specific Gravity,Urine 1.009 (1.001-1.035); Urobilinogen,Urine <2.0 mg/dL (<2.0); WBC,Urine 8 /hpf (0-5)
--- NOTE | 2017-10-27 18:37 | P.PN ---
Progress Note - Text patient seen and examined, detailed note pending
[2017-10-27] MEDS: NICOTINE 21MG/24HR PATCH TRANSDERM SCH (20:53)
[2017-10-28] MEDS: Acetaminophen-Codeine 300-30mg TAB PO PRN ×2 (02:11→07:30)
[2017-10-28 05:36] VITALS: BP 150/91; PULSE 76; RESP 17; TEMP 97.6
[2017-10-28] MEDS: NICOTINE 21MG/24HR PATCH TRANSDERM SCH (07:29)
[2017-10-28 09:06] LABS: Basophils % (A) 0 %; Eosinophils # (A) 0.2 k/uL (0-0.7); Eosinophils % (A) 3 %; HCT 33.3 % (39.0-53.0); HGB 10.7 gm/dL (13.0-17.5); Lymphocytes # (A) 0.8 k/uL (1.0-4.8); Lymphocytes % (A) 14 %; MCH 29.9 pg (25.0-35.0); MCHC 32.1 g/dL (31.0-37.0); MCV 93.1 fL (80.0-100.0); Mean Platelet Volume 7.5; Monocytes # (A) 0.4 k/uL (0-1.0); Monocytes % (A) 7 %; Neutrophils # (A) 4.3 k/uL (1.3-7.7); Neutrophils % (A) 75 %; Platelet Count 275 k/uL (150-450); RBC 3.58 m/uL (4.30-5.90); RDW 15.5 % (11.5-15.5); WBC 5.7 k/uL (3.8-10.6)
[2017-10-28 09:13] LABS: ALT 32 U/L (21-72); AST 19 U/L (17-59); Albumin 2.6 g/dL (3.5-5.0); Alkaline Phosphatase 201 U/L (38-126); Anion Gap 10 mmol/L; Blood Urea Nitrogen 3 mg/dL (9-20); Calcium 8.4 mg/dL (8.4-10.2); Carbon Dioxide 21 mmol/L (22-30); Chloride 104 mmol/L (98-107); Glucose 113 mg/dL (74-99); Lipase 1330 U/L (23-300); Magnesium 1.4 mg/dL (1.6-2.3); Potassium 3.7 mmol/L (3.5-5.1); Sodium 135 mmol/L (137-145); Total Bilirubin 0.4 mg/dL (0.2-1.3); Total Protein 5.1 g/dL (6.3-8.2)
--- NOTE | 2017-10-28 11:11 | P.HPIM ---
History of Present Illness H&P Date: 10/27/17 Chief Complaint: Chronic relapsing pancreatitis This is the 33rd admission for Nestor for his chronic relapsing pancreatitis this year. He presented to the emergency room today with a lipase in the 1900s and increased midepigastric abdominal pain. The patient was just discharged home the day before. He was admitted at that time for acute on chronic alcoholic pancreatitis. The patient states his abdominal pain is different than his pain has been previously. He reports left lower quadrant abdominal pain. He denies nausea or vomiting. Change in bowel habits. Denies fever or chills. Denies chest pain or pressure. Denies difficulty urinating. Denies urinary frequency, urgency, or dysuria. Denies hematuria. He does self cath himself once a day, but is supposed to 4 times daily. The patient has a history of pancreatitis secondary to alcohol abuse, gastroesophageal reflux disease, hyperlipidemia, and occasional urinary retention. He has was a history of anxiety and depression. He is a current cigarette smoker and smokes 2 packs per day. He continues to drink alcohol and reports his last drink was last night prior to coming back to the hospital. Last admission, Patient underwent EGD with Dr. Kellogg revealing mild duodenitis involving the duodenal bulb and second part of the duodenum most likely related to pancreatitis. 2 superficial erosions at the GE junction consistent with LA grade B reflux esophagitis. No active bleeding was visualized. The patient was deemed stable for discharge. Review of Systems All systems: negative Past Medical History Past Medical History: GERD/Reflux, GI Bleed, Hyperlipidemia, Liver Disease, Pneumonia, Prostate Disorder Additional Past Medical History / Comment(s): ETOH ABUSE-RECURRANT PANCREATITIS , ALCOHOLIC HEPATITIS, NEUROPATHY BILATERAL FEET SINCE BACK SURGERY, hx of CHRONIC URINARY RETENTION DUE TO BACK PROBLEMS-SELF CATHS, CHRONIC LOW BACK PAIN (HAS STIMULATOR THAT PT STATES DOES NOT WORK), HEMATEMESIS, CHRONIC LOOSE STOOLS. History of Any Multi-Drug Resistant Organisms: None Reported Past Surgical History: Back Surgery, Cholecystectomy, Orthopedic Surgery Additional Past Surgical History / Comment(s): EGDS, colonoscopy, bronchoscopy, BACK surgeries with TITANIUM PLATES MILTON and CAGES, KIDNEY STONES removed per pt, SPINAL CORD STIMULATOR, ISMAEL KNEE ARTHROSCOPIES, PINKY FINGER RT HAND REATTATCHED Past Anesthesia/Blood Transfusion Reactions: No Reported Reaction Past Psychological History: Anxiety, Depression Additional Psychological History / Comment(s): PT LIVES AT HOME WITH in a 2 story home that has 3 porch steps/7 steps to 2nd floor.. 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 NO SERVICE.. occasionally uses either cane, walker or w/c also has shower chair and raised toilet seat. He does not drive, his can drive. Smoking Status: Current every day smoker Past Alcohol Use History: None Reported Additional Past Alcohol Use History / Comment(s): Smokes 2 packs per day; alcoholic and last drank a "few sips" of beer last night. Past Drug Use History: None Reported Additional Drug Use History / Comment(s): Patient reports that he has not used Marijuana in over 12 months. - Past Family History Father Family Medical History: Diabetes Mellitus Additional Family Medical History / Comment(s): Mother Family Medical History: Dementia, Hyperlipidemia, Hypertension Additional Family Medical History / Comment(s): Mother is living. Medications and Allergies Home Medications Medication Instructions Recorded Confirmed Type Folic Acid 1 mg PO DAILY #30 tablet 07/15/15 10/27/17 Rx Atorvastatin [Lipitor] 10 mg PO HS 09/27/15 10/27/17 History Albuterol Inhaler [Ventolin Hfa 2 puff INHALATION RT-Q4H PRN 03/01/17 10/27/17 History Inhaler] traZODone HCL 50 mg PO HS 04/04/17 10/27/17 History Omeprazole [PriLOSEC] 40 mg PO BID #60 capsule. 05/16/17 10/27/17 Rx Gabapentin [Neurontin] 400 mg PO TID 07/18/17 10/27/17 History cloNIDine HCL [Catapres] 0.1 mg PO TID #30 tab 08/23/17 10/27/17 Rx Acetaminophen-Codeine 300-30mg 1 tab PO TID 09/10/17 10/27/17 History [Tylenol w/codeine #3] DULoxetine HCL [Cymbalta] 60 mg PO DAILY 09/18/17 10/27/17 History Magnesium Oxide [Mag-Ox] 200 mg PO DAILY 09/18/17 10/27/17 History Tamsulosin HCl [Flomax] 0.4 mg PO DAILY 09/18/17 10/27/17 History Diazepam [Valium] 5 mg PO TID 10/20/17 10/27/17 History Lipase/Protease/Amylase [Creon Dr 2 cap PO TID-W/MEALS 10/20/17 10/27/17 History 24,000 Units Capsule] Nicotine 21Mg/24Hr Patch [Habitrol] 1 patch TRANSDERM DAILY 10/20/17 10/27/17 History buPROPion XL [Wellbutrin XL] 150 mg PO DAILY 10/20/17 10/27/17 History Levofloxacin [Levaquin] 500 mg PO DAILY 3 Days #3 tab 10/24/17 10/27/17 Rx Allergies Allergy/AdvReac Type Severity Reaction Status Date / Time No Known Allergies Allergy Verified 10/27/17 17:25 Physical Exam Vitals: Vital Signs Temp Pulse Pulse Resp BP BP Pulse Ox 10/28/17 05:35 97.6 F 76 17 150/91 99 10/27/17 23:00 99.0 F 74 16 142/84 99 10/27/17 16:54 98.1 F 82 16 155/100 97 10/27/17 15:03 84 16 150/99 99 10/27/17 12:57 98.7 F 103 H 20 118/79 99 Intake and Output 10/27/17 10/28/17 10/28/17 22:59 06:59 14:59 Other: # Voids 0 Weight 67.132 kg GENERAL: Thin and in no acute distress. He has multiple tattoos. HEAD: Atraumatic, normocephalic. EYES: Pupils equal round and reactive to light, extraocular movements intact, sclera anicteric, conjunctiva are normal. ENT:nares patent, oropharynx clear without exudates. Moist mucous membranes. NECK: Normal range of motion, supple without lymphadenopathy or JVD, no thyromegaly LUNGS: Breath sounds clear to auscultation bilaterally and equal. No wheezes rales or rhonchi. HEART: Regular rate and rhythm without murmurs, rubs or gallops.S1S2 Normal ABDOMEN: Soft, normoactive bowel sounds. No guarding, no rebound. No masses appreciated. There is midepigastric abdominal pain to palpation today. EXTREMITIES: Normal range of motion, no pitting or edema. No clubbing or cyanosis. NEUROLOGICAL: Cranial nerves II through XII grossly intact. Normal speech, normal gait. PSYCH: Normal mood,flat affect. SKIN: Warm, Dry, normal turgor, no rashes or lesions noted. Results CBC & Chem 7: 10/28/17 08:27 10/28/17 08:27 Labs: Abnormal Lab Results - Last 24 Hours (Table) 10/27/17 10/27/17 10/27/17 Range/Units 14:23 14:23 Unknown RBC 3.76 L (4.30-5.90) m/uL Hgb 11.2 L (13.0-17.5) gm/dL Hct 34.8 L (39.0-53.0) % Lymphocytes # (1.0-4.8) k/uL Sodium (137-145) mmol/L Carbon Dioxide (22-30) mmol/L BUN 4 L (9-20) mg/dL Creatinine 0.60 L (0.66-1.25) mg/dL Glucose (74-99) mg/dL Magnesium (1.6-2.3) mg/dL Alkaline Phosphatase 232 H (38-126) U/L Total Protein 5.7 L (6.3-8.2) g/dL Albumin 3.0 L (3.5-5.0) g/dL Amylase 168 H (30-110) U/L Lipase 1976 H (23-300) U/L Urine Ketones 1+ H (Negative) Ur Leukocyte Esterase Moderate H (Negative) Urine RBC 10 H (0-5) /hpf Urine WBC 8 H (0-5) /hpf Urine Bacteria Rare H (None) /hpf Hyaline Casts 3 H (0-2) /lpf Urine Mucus Rare H (None) /hpf Urine Yeast (Budding) Many H (None) /hpf 10/28/17 10/28/17 Range/Units 08:27 08:27 RBC 3.58 L (4.30-5.90) m/uL Hgb 10.7 L (13.0-17.5) gm/dL Hct 33.3 L (39.0-53.0) % Lymphocytes # 0.8 L (1.0-4.8) k/uL Sodium 135 L (137-145) mmol/L Carbon Dioxide 21 L (22-30) mmol/L BUN 3 L (9-20) mg/dL Creatinine 0.56 L (0.66-1.25) mg/dL Glucose 113 H (74-99) mg/dL Magnesium 1.4 L (1.6-2.3) mg/dL Alkaline Phosphatase 201 H (38-126) U/L Total Protein 5.1 L (6.3-8.2) g/dL Albumin 2.6 L (3.5-5.0) g/dL Amylase (30-110) U/L Lipase 1330 H (23-300) U/L Urine Ketones (Negative) Ur Leukocyte Esterase (Negative) Urine RBC (0-5) /hpf Urine WBC (0-5) /hpf Urine Bacteria (None) /hpf Hyaline Casts (0-2) /lpf Urine Mucus (None) /hpf Urine Yeast (Budding) (None) /hpf Microbiology - Last 24 Hours (Table) 10/27/17 Unknown Urine Culture - Preliminary Urine,Catheterized Abdominal x-ray: report reviewed Thrombosis Risk Factor Assmnt - Choose All That Apply Any of the Below Risk Factors Present?: Yes Each Factor Represents 1 point: Age 41-60 years Other Risk Factors: No Other congenital or acquired thrombophilia - If yes, enter type in comment: No Thrombosis Risk Factor Assessment Total Risk Factor Score: 1 Thrombosis Risk Factor Assessment Level: Low Risk Assessment and Plan (1) Abdominal pain Status: Acute Code(s): R10.9 - UNSPECIFIED ABDOMINAL PAIN SNOMED Code(s): 06091795 (2) Acute on chronic pancreatitis Status: Acute Code(s): K85.90 - ACUTE PANCREATITIS WITHOUT NECROSIS OR INFECTION, UNSP; K86.1 - OTHER CHRONIC PANCREATITIS SNOMED Code(s): 392859113 (3) At risk for readmission to hospital Status: Acute Code(s): Z91.89 - OTH PERSONAL RISK FACTORS, NOT ELSEWHERE CLASSIFIED SNOMED Code(s): 3740138130711 (4) Chronic pancreatitis Status: Acute Code(s): K86.1 - OTHER CHRONIC PANCREATITIS SNOMED Code(s): 089840280 (5) ETOH abuse Status: Acute Code(s): F10.10 - ALCOHOL ABUSE, UNCOMPLICATED SNOMED Code(s) : 36744877 (6) Readmission after hospitalization within last 30 days Status: Acute Code(s): OLP8689 - SNOMED Code(s): 236894580 Plan: We'll make him nothing by mouth, continue him on IV fluids, advance diet as tolerated, consult GI.
--- NOTE | 2017-10-28 11:15 | P.DS ---
Providers Date of admission: 10/27/17 16:42 Expected date of discharge: 10/28/17 Attending physician: Kelvin Trejo Consults: 10/27/17 16:32 Consult Physician Stat Consulting Provider: Consuelo Kellogg Consult Reason/Comments: Pancreatitis Do you want consulting provider notified?: Yes Primary care physician: Carrillo Leo - Discharge Diagnosis(es) (1) Abdominal pain Status: Acute (2) Acute on chronic pancreatitis Status: Acute (3) At risk for readmission to hospital Status: Acute (4) Chronic pancreatitis Status: Acute (5) ETOH abuse Status: Acute (6) Readmission after hospitalization within last 30 days Status: Acute Hospital Course: 47-year-old male who presented to the emergency room with a chief complaint of abdominal pain. The patient was just discharged home the day before. This is his 33rd admission this year. He was admitted at that time for acute on chronic alcoholic pancreatitis. He reports midepigastric abdominal pain. He denies nausea or vomiting. Change in bowel habits. Denies fever or chills. Denies chest pain or pressure. Denies difficulty urinating. Denies urinary frequency, urgency, or dysuria. Denies hematuria. The patient has a history of pancreatitis secondary to alcohol abuse, gastroesophageal reflux disease, hyperlipidemia, and occasional urinary retention. He has was a history of anxiety and depression. He is a current cigarette smoker and smokes 2 packs per day. He continues to drink alcohol and reports his last drink was last night prior to coming back to the hospital. He was admitted, placed on IV fluids, GI was consult, his diet was slowly advanced. His lipase improved from [id number]. GI recommended pain management for his chronic pancreatitis. At this point he requested discharge. Discussed with him tertiary care treatment center, depending on also gastroenterology. They felt pain management was the best option for him and that nothing further could be truly done especially in light of him continuing to drink. Patient Condition at Discharge: Good Plan - Discharge Summary Discharge Rx Participant: No New Discharge Prescriptions: Continue Folic Acid 1 mg PO DAILY #30 tablet Atorvastatin [Lipitor] 10 mg PO HS Albuterol Inhaler [Ventolin Hfa Inhaler] 2 puff INHALATION RT-Q4H PRN PRN Reason: Shortness Of Breath traZODone HCL 50 mg PO HS Omeprazole [PriLOSEC] 40 mg PO BID #60 capsule. Gabapentin [Neurontin] 400 mg PO TID cloNIDine HCL [Catapres] 0.1 mg PO TID #30 tab Acetaminophen-Codeine 300-30mg [Tylenol w/codeine #3] 1 tab PO TID DULoxetine HCL [Cymbalta] 60 mg PO DAILY Magnesium Oxide [Mag-Ox] 200 mg PO DAILY Tamsulosin HCl [Flomax] 0.4 mg PO DAILY buPROPion XL [Wellbutrin XL] 150 mg PO DAILY Nicotine 21Mg/24Hr Patch [Habitrol] 1 patch TRANSDERM DAILY Diazepam [Valium] 5 mg PO TID Lipase/Protease/Amylase [Rebel Belcher 24,000 Units Capsule] 2 cap PO TID-W/MEALS Levofloxacin [Levaquin] 500 mg PO DAILY 3 Days #3 tab Discharge Medication List Folic Acid 1 mg PO DAILY #30 tablet 07/15/15 [Rx] Atorvastatin [Lipitor] 10 mg PO HS 09/27/15 [History] Albuterol Inhaler [Ventolin Hfa Inhaler] 2 puff INHALATION RT-Q4H PRN 03/01/17 [ History] traZODone HCL 50 mg PO HS 04/04/17 [History] Omeprazole [PriLOSEC] 40 mg PO BID #60 capsule. 05/16/17 [Rx] Gabapentin [Neurontin] 400 mg PO TID 07/18/17 [History] cloNIDine HCL [Catapres] 0.1 mg PO TID #30 tab 08/23/17 [Rx] Acetaminophen-Codeine 300-30mg [Tylenol w/codeine #3] 1 tab PO TID 09/10/17 [ History] DULoxetine HCL [Cymbalta] 60 mg PO DAILY 09/18/17 [History] Magnesium Oxide [Mag-Ox] 200 mg PO DAILY 09/18/17 [History] Tamsulosin HCl [Flomax] 0.4 mg PO DAILY 09/18/17 [History] Diazepam [Valium] 5 mg PO TID 10/20/17 [History] Lipase/Protease/Amylase [Rebel Belcher 24,000 Units Capsule] 2 cap PO TID-W/MEALS 07/08 [History] Nicotine 21Mg/24Hr Patch [Habitrol] 1 patch TRANSDERM DAILY 10/20/17 [History] buPROPion XL [Wellbutrin XL] 150 mg PO DAILY 10/20/17 [History] Levofloxacin [Levaquin] 500 mg PO DAILY 3 Days #3 tab 10/24/17 [Rx] Follow up Appointment(s)/Referral(s): Carrillo Leo Jr, DO [Primary Care Provider] - 1-2 Days Consuelo Kellogg MD [STAFF PHYSICIAN] - 3 Days Patient Instructions/Handouts: Pancreatitis (DC) Discharge Disposition: HOME SELF-CARE
--- NOTE | 2017-10-29 12:45 | CONS ---
CONSULTATION DATE OF SERVICE: 10/28/2017 REASON FOR CONSULTATION: Chronic relapsing pancreatitis. HISTORY OF PRESENT ILLNESS: The patient is a 47-year-old white male with history of heavy alcohol abuse in the past and chronic relapsing pancreatitis was just discharged from the hospital 2 days ago when he presented back to the emergency room yesterday night complaining of epigastric pain and noted to have elevated amylase and lipase in the range of 1900. He was admitted to hospital for further evaluation. He is requesting pain medications. He says that he was taking Tylenol #3 at home, but he ran out of it 2 days ago. He denies any nausea, vomiting. Pain is mostly in the epigastric area. No fever, chills, or night sweats. He has multiple hospitalizations in the last 1 year and at least 5 of them in the last month. During his last admission 2 days ago, he had an upper endoscopy done that showed mild duodenitis involving the duodenal bulb and gastritis and some reflux esophagitis. PAST MEDICAL HISTORY: Chronic relapsing pancreatitis, hyperlipidemia, alcohol use, gastroesophageal reflux disease. PAST SURGICAL HISTORY: Multiple EGD, colonoscopy, bronchoscopy, back surgery. MEDICATIONS AT HOME: Folic acid, Lipitor, Ventolin, trazodone, Prilosec, Neurontin, Catapres, Cymbalta, magnesium oxide, Flomax, Valium, Wellbutrin, and Levaquin. ALLERGIES: None. SOCIAL HISTORY: No smoking. Heavy alcohol use, which he quit drinking a month ago. REVIEW OF SYSTEMS: CARDIOPULMONARY: No chest pain, shortness of breath. GENITOURINARY: No dysuria or hematuria. MUSCULOSKELETAL: Unremarkable. SKIN: Unremarkable. ENDOCRINE: Unremarkable. PSYCHIATRIC: Unremarkable. NEUROLOGY: Unremarkable. ENT/VISION: Unremarkable. CONSTITUTIONAL: No recent weight loss. No fevers, chills or night sweats. PHYSICAL EXAMINATION: On physical examination, blood pressure 112/82, pulse rate 103, temperature 98.7. HEENT examination unremarkable. Conjunctivae pink. Sclerae anicteric. Oral cavity, no lesions. NECK: No jugular venous distention or lymph node enlargement. Chest was clear to auscultation. HEART: Regular rate and rhythm. ABDOMEN: Soft. Mild tenderness in the epigastric area. Bowel sounds are positive. No organomegaly. EXTREMITIES: No pedal edema. SKIN: No rashes. NEURO: Alert and oriented x3. No focal deficits. LABS: WBC 5.7, hemoglobin 10.1, platelets are normal. Lipase yesterday was 1976. Today it is down to 1330. Amylase yesterday was 168. AST, ALT are normal. Alkaline phosphatase 201. IMPRESSION: This is a patient who presents to the hospital with recurrent epigastric pain related to chronic relapsing pancreatitis from previous alcohol use. He had multiple hospitalizations over the last 1 year because of ongoing epigastric pain. His lipase is gradually improving. He quit drinking alcohol a few weeks ago. RECOMMENDATION: 1. Because of multiple hospitalizations, I did recommend consultation with Pain Management on outpatient basis. 2. Continue with Prilosec 20 mg daily. 3. Patient wants to be discharged home and I agree with this with an outpatient close follow up. Thank you for this consultation. PENNY / DIO: [id number] /
== END 2017-10-28 10:06 | disposition home or self-care (01) | DRG 440 ==
LOC: EC 12:54 → 4MS4W 16:42
PROVIDERS: ADMIT Family Medicine; ATTEND Family Medicine
DX: K85.20 Alcohol induced acute pancreatitis without necrosis or infection (principal); K86.0 Alcohol-induced chronic pancreatitis; E78.5 Hyperlipidemia, unspecified; F10.10 Alcohol abuse, uncomplicated; F17.210 Nicotine dependence, cigarettes, uncomplicated; K21.0 Gastro-esophageal reflux disease with esophagitis; K29.80 Duodenitis without bleeding; Z79.899 Other long term (current) drug therapy; Z82.49 Family history of ischemic heart disease and other diseases of the circulatory system; Z83.3 Family history of diabetes mellitus; Z87.442 Personal history of urinary calculi; F32.9 Major depressive disorder, single episode, unspecified; F41.9 Anxiety disorder, unspecified
CPT/HCPCS: 36415; 74018; 80053; 81001; 82150; 83690; 83735; 85025; 85610; 85730; 87086; 96361; 96374; 96375; 99285

== ENCOUNTER 2017-10-29 19:15 | Inpatient (IN) | payer MEDICARE, OTHER ==
[2017-10-29] MEDS ORDERED: ONDANSETRON 4 MG/2 ML VIAL IVP STA (19:34)
[2017-10-29] MEDS ORDERED: KETOROLAC 30 MG/ML 1 ML VIAL IVP STA (19:34)
[2017-10-29] MEDS ORDERED: SODIUM CHLORIDE 0.9% 1,000 ML IV STA (19:34)
[2017-10-29] MEDS ORDERED: FAMOTIDINE 20 MG/2 ML VIAL IV STA (19:35)
--- NOTE | 2017-10-29 19:37 | ED ---
General Adult HPI - General Source: patient, RN notes reviewed Mode of arrival: wheelchair Limitations: no limitations <Grayson Lopes - Last Filed: 10/29/17 19:35> <Grayson Marcelo - Last Filed: 10/29/17 20:43> - General Chief complaint: Abdominal Pain Stated complaint: abdominal pain Time Seen by Provider: 10/29/17 19:31 - History of Present Illness Initial comments: Patient 47-year-old male significant past medical history for pancreatic tenderness, presenting to the emergency room today with a chief complaint of abdominal pain with nausea vomiting. Patient does admit that he was recently admitted and discharged home yesterday for the same complaint. Patient states that he does not drink any alcohol over the last 2 months. Patient does admit to nausea vomiting and abdominal time keeping down any of his medications today. Patient states pains located in the same spot is consistent with pain that is had in the past. He denies anything that is new today. Denies any other complaints. Patient denies any recent fever, chills, shortness of breath, chest pain, back pain, numbness or tingling, dysuria or hematuria, constipation or diarrhea, headaches or visual changes, or any other complaints. (Grayson Lopes) - Related Data Home Medications Medication Instructions Recorded Confirmed Atorvastatin [Lipitor] 10 mg PO HS 09/27/15 10/29/17 Albuterol Inhaler [Ventolin Hfa 2 puff INHALATION RT-Q4H PRN 03/01/17 10/29/17 Inhaler] traZODone HCL 50 mg PO HS 04/04/17 10/29/17 Gabapentin [Neurontin] 400 mg PO TID 07/18/17 10/29/17 Acetaminophen-Codeine 300-30mg 1 tab PO TID 09/10/17 10/29/17 [Tylenol w/codeine #3] DULoxetine HCL [Cymbalta] 60 mg PO DAILY 09/18/17 10/29/17 Magnesium Oxide [Mag-Ox] 200 mg PO DAILY 09/18/17 10/29/17 Tamsulosin HCl [Flomax] 0.4 mg PO DAILY 09/18/17 10/29/17 Diazepam [Valium] 5 mg PO TID 10/20/17 10/29/17 Lipase/Protease/Amylase [Creon Dr 2 cap PO TID-W/MEALS 10/20/17 10/29/17 24,000 Units Capsule] Nicotine 21Mg/24Hr Patch [Habitrol] 1 patch TRANSDERM DAILY 10/20/17 10/29/17 buPROPion XL [Wellbutrin XL] 150 mg PO DAILY 10/20/17 10/29/17 Previous Rx's Medication Instructions Recorded Folic Acid 1 mg PO DAILY #30 tablet 07/15/15 Omeprazole [PriLOSEC] 40 mg PO BID #60 capsule. 05/16/17 cloNIDine HCL [Catapres] 0.1 mg PO TID #30 tab 08/23/17 Allergies Allergy/AdvReac Type Severity Reaction Status Date / Time No Known Allergies Allergy Verified 10/29/17 19:34 Review of Systems ROS Other: All systems not noted in ROS Statement are negative. <Grayson Lopes - Last Filed: 10/29/17 19:35> ROS Other: All systems not noted in ROS Statement are negative. <Grayson Marcelo - Last Filed: 10/29/17 20:43> ROS Statement: Those systems with pertinent positive or pertinent negative responses have been documented in the HPI. Past Medical History Past Medical History: GERD/Reflux, GI Bleed, Hyperlipidemia, Liver Disease, Pneumonia, Prostate Disorder Additional Past Medical History / Comment(s): ETOH ABUSE-RECURRANT PANCREATITIS , ALCOHOLIC HEPATITIS, NEUROPATHY BILATERAL FEET SINCE BACK SURGERY, hx of CHRONIC URINARY RETENTION DUE TO BACK PROBLEMS-SELF CATHS, CHRONIC LOW BACK PAIN (HAS STIMULATOR THAT PT STATES DOES NOT WORK), HEMATEMESIS, CHRONIC LOOSE STOOLS. History of Any Multi-Drug Resistant Organisms: None Reported Past Surgical History: Back Surgery, Cholecystectomy, Orthopedic Surgery Additional Past Surgical History / Comment(s): EGDS, colonoscopy, bronchoscopy, BACK surgeries with TITANIUM PLATES MILTON and CAGES, KIDNEY STONES removed per pt, SPINAL CORD STIMULATOR, ISMAEL KNEE ARTHROSCOPIES, PINKY FINGER RT HAND REATTATCHED Past Anesthesia/Blood Transfusion Reactions: No Reported Reaction Past Psychological History: Anxiety, Depression Smoking Status: Current every day smoker Past Alcohol Use History: None Reported Past Drug Use History: None Reported - Past Family History Father Family Medical History: Diabetes Mellitus Additional Family Medical History / Comment(s): Mother Family Medical History: Dementia, Hyperlipidemia, Hypertension Additional Family Medical History / Comment(s): Mother is living. <Grayson Lopes Last Filed: 10/29/17 19:35> General Exam Limitations: no limitations <Grayson Lopes - Last Filed: 10/29/17 19:35> <Grayson Marcelo - Last Filed: 10/29/17 20:43> - General Exam Comments Initial Comments: General: The patient is awake and alert, in no distress, and does not appear acutely ill. Eye: Pupils are equal, round and reactive to light, extra-ocular movements are intact. No nystagmus. There is normal conjunctiva bilaterally. No signs of icterus. Ears, nose, mouth and throat: There are moist mucous membranes and no oral lesions. Neck: The neck is supple, there is no tenderness or JVD. Cardiovascular: There is a regular rate and rhythm. No murmur, rub or gallop is appreciated. Respiratory: Lungs are clear to auscultation, respirations are non-labored, breath sounds are equal. No wheezes, stridor, rales, or rhonchi. Gastrointestinal: Abdomen soft on palpation. Tender palpation left upper quadrant and epigastric. No rebound, guarding, CVA tenderness Musculoskeletal: Normal ROM, no tenderness. Strength 5/5. Sensation intact. Pulses equal bilaterally 2+. Neurological: A&O x 3. CN II-XII intact, There are no obvious motor or sensory deficits. Coordination appears grossly intact. Speech is normal. Skin: Skin is warm and dry and no rashes or lesions are noted. Psychiatric: Cooperative, appropriate mood & affect, normal judgment. (Grayson Lopes) Vital Signs 10/29/17 19:23 Temperature 98.0 F Pulse Rate 102 H Respiratory 18 Rate Blood Pressure 131/86 O2 Sat by Pulse 100 Oximetry Medical Decision Making <Grayson Lopes - Last Filed: 10/29/17 19:35> - Lab Data Result diagrams: 10/29/17 19:54 10/29/17 19:54 <Grayson Marcelo - Last Filed: 10/29/17 20:43> - Medical Decision Making Patient has a lipase of 3400 and a white count of 14.7. Patient's lipase is never been this high in the past so I'm calling his primary medical care doctor and admitting the patient and writing admitting orders. (Grayson Marcelo) - Lab Data Lab Results 10/29/17 10/29/17 10/29/17 Range/Units 19:54 19:54 19:54 WBC 14.7 H (3.8-10.6) k/uL RBC 3.98 L (4.30-5.90) m/uL Hgb 12.2 L (13.0-17.5) gm/dL Hct 36.5 L (39.0-53.0) % MCV 91.6 (80.0-100.0) fL MCH 30.7 (25.0-35.0) pg MCHC 33.5 (31.0-37.0) g/dL RDW 15.6 H (11.5-15.5) % Plt Count 395 (150-450) k/uL Neutrophils % 89 % Lymphocytes % 7 % Monocytes % 4 % Eosinophils % 0 % Basophils % 0 % Neutrophils # 13.0 H (1.3-7.7) k/uL Lymphocytes # 1.0 (1.0-4.8) k/uL Monocytes # 0.6 (0-1.0) k/uL Eosinophils # 0.0 (0-0.7) k/uL Basophils # 0.0 (0-0.2) k/uL PT 10.6 (9.0-12.0) sec INR 1.1 (<1.2) APTT 23.6 (22.0-30.0) sec Sodium 137 (137-145) mmol/L Potassium 3.9 (3.5-5.1) mmol/L Chloride 100 (98-107) mmol/L Carbon Dioxide 22 (22-30) mmol/L Anion Gap 15 mmol/L BUN 7 L (9-20) mg/dL Creatinine 0.60 L (0.66-1.25) mg/dL Est GFR (CKD-EPI)AfAm >90 (>60 ml/min/1.73 sqM) Est GFR (CKD-EPI)NonAf >90 (>60 ml/min/1.73 sqM) Glucose 100 H (74-99) mg/dL Calcium 8.9 (8.4-10.2) mg/dL Total Bilirubin 0.5 (0.2-1.3) mg/dL AST 17 (17-59) U/L ALT 31 (21-72) U/L Alkaline Phosphatase 219 H (38-126) U/L Total Protein 6.0 L (6.3-8.2) g/dL Albumin 3.3 L (3.5-5.0) g/dL Amylase 279 H (30-110) U/L Lipase 3491 H (23-300) U/L Disposition <Grayson Lopes - Last Filed: 10/29/17 19:35> Time of Disposition: 20:43 <Grayson Marcelo - Last Filed: 10/29/17 20:43> Clinical Impression: Acute on chronic pancreatitis Disposition: ADMITTED IP TO THIS HOSP Referrals: Carrillo Leo Jr, DO [Primary Care Provider] - 1-2 days
[2017-10-29 20:18] LABS: ALT 31 U/L (21-72); AST 17 U/L (17-59); Albumin 3.3 g/dL (3.5-5.0); Alkaline Phosphatase 219 U/L (38-126); Amylase 279 U/L (30-110); Anion Gap 15 mmol/L; Blood Urea Nitrogen 7 mg/dL (9-20); Calcium 8.9 mg/dL (8.4-10.2); Carbon Dioxide 22 mmol/L (22-30); Chloride 100 mmol/L (98-107); Glucose 100 mg/dL (74-99); Potassium 3.9 mmol/L (3.5-5.1); Sodium 137 mmol/L (137-145); Total Bilirubin 0.5 mg/dL (0.2-1.3)
[2017-10-29 20:20] LABS: Basophils % (A) 0 %; Eosinophils % (A) 0 %; HCT 36.5 % (39.0-53.0); HGB 12.2 gm/dL (13.0-17.5); INR 1.1 (<1.2); Lymphocytes % (A) 7 %; MCH 30.7 pg (25.0-35.0); MCHC 33.5 g/dL (31.0-37.0); MCV 91.6 fL (80.0-100.0); Mean Platelet Volume 7.3; Monocytes # (A) 0.6 k/uL (0-1.0); Monocytes % (A) 4 %; Neutrophils % (A) 89 %; Partial Thromboplastin Time 23.6 sec (22.0-30.0); Platelet Count 395 k/uL (150-450); Prothrombin Time 10.6 sec (9.0-12.0); RBC 3.98 m/uL (4.30-5.90); RDW 15.6 % (11.5-15.5); WBC 14.7 k/uL (3.8-10.6)
[2017-10-29 20:26] LABS: Lipase 3491 U/L (23-300)
[2017-10-29] MEDS ORDERED: SODIUM CHLORIDE 0.9% 1,000 ML IV ONE (20:44)
[2017-10-29] MEDS ORDERED: ALBUTEROL NEBULIZED 2.5 MG/3 ML INHALATION PRN (22:45)
[2017-10-29] MEDS ORDERED: ONDANSETRON 4 MG/2 ML VIAL IVP PRN (23:57)
[2017-10-30] MEDS: LACTATED RINGERS 1,000 ML IV SCH ×6 (00:09→23:42)
[2017-10-30] MEDS: NICOTINE 21MG/24HR PATCH TRANSDERM SCH ×2 (00:13→08:30)
[2017-10-30] MEDS: cloNIDine HCL 0.1 MG TAB PO SCH ×4 (00:58→21:17)
[2017-10-30] MEDS: traZODone HCL 50 MG TAB PO SCH ×2 (00:58→21:17)
[2017-10-30] MEDS: GABAPENTIN 400 MG CAP PO SCH ×4 (00:58→21:18)
[2017-10-30] MEDS: DIAZEPAM 5 MG TAB PO SCH ×4 (00:59→21:20)
[2017-10-30] MEDS: Acetaminophen-Codeine 300-30mg TAB PO PRN ×3 (00:59→21:20)
[2017-10-30] MEDS ORDERED: SODIUM CHLORIDE 0.9% 1,000 ML IV ONE (08:16)
[2017-10-30] MEDS: PANTOPRAZOLE 40 MG TABLET PO SCH ×2 (08:22→16:39)
[2017-10-30] MEDS: PROTEASE PO SCH ×3 (08:27→17:26)
[2017-10-30] MEDS: AMYLASE PO SCH ×3 (08:27→17:26)
[2017-10-30] MEDS: LIPASE PO SCH ×3 (08:27→17:26)
[2017-10-30] MEDS: buPROPion XL 150 MG TAB.ER.24H PO SCH (08:28)
[2017-10-30] MEDS: MAGNESIUM OXIDE 400 MG TAB PO SCH (08:29)
[2017-10-30] MEDS: DULoxetine HCL 60 MG CAPSULE.DR PO SCH (08:29)
[2017-10-30] MEDS: FOLIC ACID 1 MG TAB PO SCH (08:29)
[2017-10-30] MEDS: TAMSULOSIN 0.4 MG CAP.ER.24H PO SCH (08:30)
--- NOTE | 2017-10-30 10:38 | P.CONS ---
History of Present Illness - Reason for Consult Consult date: 10/30/17 Chronic relapsing pancreatitis Requesting physician: Carrillo Leo Jr - History of Present Illness 47-year-old male multiple readmissions over the last week and year secondary to chronic relapsing alcohol pancreatitis. Status post EGD evaluation this past Sunday with findings of duodenitis no evidence of peptic ulcer disease. CT abdomen 10/25 no evidence of pancreatic pseudocyst. Admission white count 14.7. Hemoglobin 12.2. BUN 7. Creatinine 0.6. Total bilirubin 0.5. AST 17. ALT 31. AP 219. Amylase 279. Lipase 3491. Patient was given 1 L bolus of normal saline last night in the emergency room as of early this morning he still has not voided. Afebrile. Pain mostly in the midepigastrium upper abdomen. Review of Systems Constitutional: Denies fever, chills, sweats, weight gain, or loss. HEENT: Negative for migraines, blurred vision or loss, earaches, drainage, tinnitus, oral mucosal lesions, dysphagia, or odynophagia. Cardiac: Negative for chest pain, arrhythmias, or palpitation. Respiratory: Negative for shortness of breath, hemoptysis, cough, or sputum production. Gastrointestinal: See HPI for pertinent findings. Genitourinary: Negative for hematuria, urgency, frequency, polyuria, dysuria, or penile discharge. Musculoskeletal: Negative for muscle aches, swelling, arthritis, and arthralgias. Neurologic: Negative for stroke or TIA. Endocrine: Negative for thyroid problems. Skin: Negative for rash or itching. Psychiatric: Negative history for depression and anxietyale Past Medical History Past Medical History: GERD/Reflux, GI Bleed, Hyperlipidemia, Liver Disease, Pneumonia, Prostate Disorder Additional Past Medical History / Comment(s): ETOH ABUSE-RECURRANT PANCREATITIS , ALCOHOLIC HEPATITIS, NEUROPATHY BILATERAL FEET SINCE BACK SURGERY, hx of CHRONIC URINARY RETENTION DUE TO BACK PROBLEMS-SELF CATHS, CHRONIC LOW BACK PAIN (HAS STIMULATOR THAT PT STATES DOES NOT WORK), HEMATEMESIS, CHRONIC LOOSE STOOLS. History of Any Multi-Drug Resistant Organisms: None Reported Past Surgical History: Back Surgery, Cholecystectomy, Orthopedic Surgery Additional Past Surgical History / Comment(s): EGDS, colonoscopy, bronchoscopy, BACK surgeries with TITANIUM PLATES MILTON and CAGES, KIDNEY STONES removed per pt, SPINAL CORD STIMULATOR, ISMAEL KNEE ARTHROSCOPIES, PINKY FINGER RT HAND REATTATCHED Past Anesthesia/Blood Transfusion Reactions: No Reported Reaction Past Psychological History: Anxiety, Depression Additional Psychological History / Comment(s): PT LIVES AT HOME WITH in a 2 story home that has 3 porch steps/7 steps to 2nd floor.. 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 NO SERVICE.. occasionally uses either cane, walker or w/c also has shower chair and raised toilet seat. He does not drive, his can drive. Smoking Status: Current every day smoker Past Alcohol Use History: None Reported Additional Past Alcohol Use History / Comment(s): Smokes 2 packs per day; alcoholic and last drank a "few sips" of beer last night. Past Drug Use History: None Reported Additional Drug Use History / Comment(s): Patient reports that he has not used Marijuana in over 12 months. - Past Family History Father Family Medical History: Diabetes Mellitus Additional Family Medical History / Comment(s): Mother Family Medical History: Dementia, Hyperlipidemia, Hypertension Additional Family Medical History / Comment(s): Mother is living. Medications and Allergies Home Medications Medication Instructions Recorded Confirmed Type Folic Acid 1 mg PO DAILY #30 tablet 07/15/15 10/29/17 Rx Atorvastatin [Lipitor] 10 mg PO HS 09/27/15 10/29/17 History Albuterol Inhaler [Ventolin Hfa 2 puff INHALATION RT-Q4H PRN 03/01/17 10/29/17 History Inhaler] traZODone HCL 50 mg PO HS 04/04/17 10/29/17 History Omeprazole [PriLOSEC] 40 mg PO BID #60 capsule. 05/16/17 10/29/17 Rx Gabapentin [Neurontin] 400 mg PO TID 07/18/17 10/29/17 History cloNIDine HCL [Catapres] 0.1 mg PO TID #30 tab 08/23/17 10/29/17 Rx Acetaminophen-Codeine 300-30mg 1 tab PO TID PRN 09/10/17 10/29/17 History [Tylenol w/codeine #3] DULoxetine HCL [Cymbalta] 60 mg PO DAILY 09/18/17 10/29/17 History Magnesium Oxide [Mag-Ox] 200 mg PO DAILY 09/18/17 10/29/17 History Tamsulosin HCl [Flomax] 0.4 mg PO DAILY 09/18/17 10/29/17 History Diazepam [Valium] 5 mg PO TID 10/20/17 10/29/17 History Lipase/Protease/Amylase [Creon Dr 2 cap PO TID-W/MEALS 10/20/17 10/29/17 History 24,000 Units Capsule] Nicotine 21Mg/24Hr Patch [Habitrol] 1 patch TRANSDERM DAILY 10/20/17 10/29/17 History buPROPion XL [Wellbutrin XL] 150 mg PO DAILY 10/20/17 10/29/17 History Allergies Allergy/AdvReac Type Severity Reaction Status Date / Time No Known Allergies Allergy Verified 10/29/17 19:34 Physical Exam Vitals: Vital Signs Temp Pulse Pulse Resp BP BP Pulse Ox 10/30/17 05:59 97.9 F 76 18 168/84 98 10/29/17 22:46 98.7 F 84 18 148/84 100 10/29/17 21:25 98.9 F 84 18 159/75 100 10/29/17 21:04 97.1 F L 95 18 145/85 96 10/29/17 19:23 98.0 F 102 H 18 131/86 100 Intake and Output 10/29/17 10/30/17 10/30/17 22:59 06:59 14:59 Other: # Voids 0 1 Weight 67.132 kg General appearance: The patient is alert, oriented, in no acute distress. HET: Head is normocephalic and atraumatic. Pupils are equal and reactive. Oropharynx is clear without lesions. Neck: Supple without lymphadenopathy. Trachea midline. Heart: S1 S2. Regular rate and rhythm. Lungs: No crackles or wheezes are heard. Abdomen: Soft, midepigastric tenderness, nondistended with bowel sounds. No peritoneal signs. No palpable organomegaly or masses. Extremities: Normal skin color and turgor. No cyanosis, rash, ulceration, clubbing, or edema. Radial and pedal pulses are 2/4 bilaterally. Neurological: No focal deficits. Strength and sensation are grossly intact. Results CBC & Chem 7: 10/29/17 19:54 10/29/17 19:54 Labs: Abnormal Lab Results - Last 24 Hours (Table) 10/29/17 10/29/17 Range/Units 19:54 19:54 WBC 14.7 H (3.8-10.6) k/uL RBC 3.98 L (4.30-5.90) m/uL Hgb 12.2 L (13.0-17.5) gm/dL Hct 36.5 L (39.0-53.0) % RDW 15.6 H (11.5-15.5) % Neutrophils # 13.0 H (1.3-7.7) k/uL BUN 7 L (9-20) mg/dL Creatinine 0.60 L (0.66-1.25) mg/dL Glucose 100 H (74-99) mg/dL Alkaline Phosphatase 219 H (38-126) U/L Total Protein 6.0 L (6.3-8.2) g/dL Albumin 3.3 L (3.5-5.0) g/dL Amylase 279 H (30-110) U/L Lipase 3491 H (23-300) U/L Assessment and Plan (1) Acute on chronic pancreatitis Current Visit: Yes Status: Acute Code(s): K85.90 - ACUTE PANCREATITIS WITHOUT NECROSIS OR INFECTION, UNSP; K86.1 - OTHER CHRONIC PANCREATITIS SNOMED Code(s): 402373281 (2) Alcohol abuse Current Visit: No Status: Acute Code(s): F10.10 - ALCOHOL ABUSE, UNCOMPLICATED SNOMED Code(s): 66261962 Plan: 1. Additional 1 L normal saline bolus. Monitor urine output. Nothing by mouth except medications. Daily pancreatic enzymes CBC and electrolytes. Increase IV fluids to 150 mL an hour. GI prophylaxis IV Protonix 40 mg daily. Alcohol abstinence discussed. Outpatient pain management consultation recommended Dr. Kellogg has discussed this with Dr. Leo. Thank you for this kind referral and the opportunity to participate in the care of your patient. This consultation was discussed with Dr. Kellogg. The impression and plan of care have been directed as dictated.
[2017-10-30 11:07] LABS: Amylase 64 U/L (30-110); Lipase 357 U/L (23-300)
--- NOTE | 2017-10-30 11:09 | P.HPIM ---
History of Present Illness H&P Date: 10/30/17 Chief Complaint: Abdominal pain 47-year-old male who presented to the emergency room with a chief complaint of abdominal pain, nausea, and vomiting. The patient was just discharged home on 10/28/2017. The patient has had numerous hospitalizations this year secondary to pancreatitis. This is the patients 30th visit to the hospital this year. The patient has a history of pancreatitis secondary to alcohol abuse, gastroesophageal reflux disease, hyperlipidemia, and urinary retention. He has been instructed to straight cath 3-4 times a day at home, but patient states he has only been doing this 1 or 2 times. He has was a history of anxiety and depression. He is a current cigarette smoker and smokes 2 packs per day. The patient states he has not consumed alcohol in 2 months. Patient's is at the bedside and insists that patient has not had any alcohol since and states he only had 2 beers on . Serum alcohol level was not completed on this admission, but serum alcohol level was drawn on a recent admission on 10/20/2017 which was positive for alcohol. Serum alcohol at that time was 32. Patient underwent recent EGD revealing mild duodenitis involving the duodenal bulb and second part of the duodenum most likely related to pancreatitis. 2 superficial erosions at the GE junction consistent with LA grade B reflux esophagitis. Laboratory data: WBC 14.6. Hemoglobin 0.2. Platelet count 395. Sodium 137. Potassium 3.9. BUN 7. Creatinine 0.60. Glucose 100. AST 17. ALT 31. Alkaline phosphatase 219. Amylase 279. Lipase 3491. The patient was admitted to the hospital under the care of Dr. Trejo. Consultations were placed to GI. The patient was seen and examined at the bedside on rounds Dr. Trejo. The patient states he has had no further episodes of nausea and vomiting. He states he is hungry and would like to eat. He states he "feels fine". He is wanting to be discharged home. Review of Systems GENERAL: Patient denies fever. Denies chills. EYES: Denies blurred vision. Denies vision changes. Denies eye pain. EARS, NOSE, MOUTH, & THROAT: Denies headache. Denies sore throat. Denies ear pain. RESPIRATORY: Denies cough. Denies shortness of breath. Denies sputum production. Denies hemoptysis. CARDIOVASCULAR: Denies chest pain or pressure. Denies palpitations. Denies arrhythmias. GASTROINTESTINAL: Positive for nausea, vomiting, and abdominal pain prior to coming to the hospital. Currently denies nausea or vomiting. Positive for epigastric abdominal pain. Denies heartburn. Denies blood in the stool. GENITOURINARY: Denies urinary frequency. Denies burning. Denies dysuria. Denies cloudy urine. Denies blood in the urine. MUSCULOSKELETAL: Denies myalgias. Denies joint swelling. Denies decreased range of motion beyond patients baseline. INTEGUMENTARY: Denies pruitis. Denies rash. PSYCHIATRIC: Denies suicidal or homicial ideations. ENDOCRINE: Denies weight change. Denies polydipsia. Denies polyuria. HEMATOLOGIC: Denies bleeding disorders. Past Medical History Past Medical History: GERD/Reflux, GI Bleed, Hyperlipidemia, Liver Disease, Pneumonia, Prostate Disorder Additional Past Medical History / Comment(s): ETOH ABUSE-RECURRANT PANCREATITIS , ALCOHOLIC HEPATITIS, NEUROPATHY BILATERAL FEET SINCE BACK SURGERY, hx of CHRONIC URINARY RETENTION DUE TO BACK PROBLEMS-SELF CATHS, CHRONIC LOW BACK PAIN (HAS STIMULATOR THAT PT STATES DOES NOT WORK), HEMATEMESIS, CHRONIC LOOSE STOOLS. History of Any Multi-Drug Resistant Organisms: None Reported Past Surgical History: Back Surgery, Cholecystectomy, Orthopedic Surgery Additional Past Surgical History / Comment(s): EGDS, colonoscopy, bronchoscopy, BACK surgeries with TITANIUM PLATES MILTON and CAGES, KIDNEY STONES removed per pt, SPINAL CORD STIMULATOR, ISMAEL KNEE ARTHROSCOPIES, PINKY FINGER RT HAND REATTATCHED Past Anesthesia/Blood Transfusion Reactions: No Reported Reaction Past Psychological History: Anxiety, Depression Additional Psychological History / Comment(s): PT LIVES AT HOME WITH in a 2 story home that has 3 porch steps/7 steps to 2nd floor.. 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 NO SERVICE.. occasionally uses either cane, walker or w/c also has shower chair and raised toilet seat. He does not drive, his can drive. Smoking Status: Current every day smoker Past Alcohol Use History: None Reported Additional Past Alcohol Use History / Comment(s): Smokes 2 packs per day; alcoholic and last drank a "few sips" of beer last night. Past Drug Use History: None Reported Additional Drug Use History / Comment(s): Patient reports that he has not used Marijuana in over 12 months. - Past Family History Father Family Medical History: Diabetes Mellitus Additional Family Medical History / Comment(s): Mother Family Medical History: Dementia, Hyperlipidemia, Hypertension Additional Family Medical History / Comment(s): Mother is living. Medications and Allergies Home Medications Medication Instructions Recorded Confirmed Type Folic Acid 1 mg PO DAILY #30 tablet 07/15/15 10/29/17 Rx Atorvastatin [Lipitor] 10 mg PO HS 09/27/15 10/29/17 History Albuterol Inhaler [Ventolin Hfa 2 puff INHALATION RT-Q4H PRN 03/01/17 10/29/17 History Inhaler] traZODone HCL 50 mg PO HS 04/04/17 10/29/17 History Omeprazole [PriLOSEC] 40 mg PO BID #60 capsule. 05/16/17 10/29/17 Rx Gabapentin [Neurontin] 400 mg PO TID 07/18/17 10/29/17 History cloNIDine HCL [Catapres] 0.1 mg PO TID #30 tab 08/23/17 10/29/17 Rx Acetaminophen-Codeine 300-30mg 1 tab PO TID PRN 09/10/17 10/29/17 History [Tylenol w/codeine #3] DULoxetine HCL [Cymbalta] 60 mg PO DAILY 09/18/17 10/29/17 History Magnesium Oxide [Mag-Ox] 200 mg PO DAILY 09/18/17 10/29/17 History Tamsulosin HCl [Flomax] 0.4 mg PO DAILY 09/18/17 10/29/17 History Diazepam [Valium] 5 mg PO TID 10/20/17 10/29/17 History Lipase/Protease/Amylase [Creon Dr 2 cap PO TID-W/MEALS 10/20/17 10/29/17 History 24,000 Units Capsule] Nicotine 21Mg/24Hr Patch [Habitrol] 1 patch TRANSDERM DAILY 10/20/17 10/29/17 History buPROPion XL [Wellbutrin XL] 150 mg PO DAILY 10/20/17 10/29/17 History Allergies Allergy/AdvReac Type Severity Reaction Status Date / Time No Known Allergies Allergy Verified 10/29/17 19:34 Physical Exam Vitals: Vital Signs Temp Pulse Pulse Resp BP BP Pulse Ox 10/30/17 05:59 97.9 F 76 18 168/84 98 10/29/17 22:46 98.7 F 84 18 148/84 100 10/29/17 21:25 98.9 F 84 18 159/75 100 10/29/17 21:04 97.1 F L 95 18 145/85 96 10/29/17 19:23 98.0 F 102 H 18 131/86 100 Intake and Output 10/29/17 10/30/17 10/30/17 22:59 06:59 14:59 Other: Voiding Method Toilet # Voids 0 1 Weight 67.132 kg GENERAL: This is a 47-year-old male in no apparent distress at the time of examination. Pleasant and cooperative. HEENT: Head is atraumatic, normocephalic. Pupils are equal, round, and reactive to light. Sclerae anicteric. Conjunctivae are clear. Mucus membranes of the mouth are moist. Neck is supple. RESPIRATORY: Clear to ausculation. No wheezes, rales, or rhonchi. No use of accessory muscles. Patient maintaining oxygen saturation greater than 92%. No chest wall tenderness is noted on palpation or with deep breathing. CARDIOVASCULAR: Regular rate and rhythm. S1 and S2 noted. No systolic or diastolic murmur auscultated. No JVD noted. No S3 or S4 noted. GASTROINTESTINAL: Pain and tenderness noted upon palpation of epigastric region. No distention noted. Abdomen soft and round. Normal active bowel sounds auscultated x 4 quadrants. INTEGUMENTARY: No cyanosis. No jaundice. No rashes noted. No cellulitis noted. EXTREMITIES: 2+ peripheral pulses. No evidence of peripheral edema. No calf tenderness noted. NEUROLOGIC: Cranial nerves II-XII intact. PSYCHIATRIC: Awake, alert, and oriented X 3. Flat affect. Results CBC & Chem 7: 10/29/17 19:54 10/29/17 19:54 Labs: Abnormal Lab Results - Last 24 Hours (Table) 10/29/17 10/29/17 Range/Units 19:54 19:54 WBC 14.7 H (3.8-10.6) k/uL RBC 3.98 L (4.30-5.90) m/uL Hgb 12.2 L (13.0-17.5) gm/dL Hct 36.5 L (39.0-53.0) % RDW 15.6 H (11.5-15.5) % Neutrophils # 13.0 H (1.3-7.7) k/uL BUN 7 L (9-20) mg/dL Creatinine 0.60 L (0.66-1.25) mg/dL Glucose 100 H (74-99) mg/dL Alkaline Phosphatase 219 H (38-126) U/L Total Protein 6.0 L (6.3-8.2) g/dL Albumin 3.3 L (3.5-5.0) g/dL Amylase 279 H (30-110) U/L Lipase 3491 H (23-300) U/L Thrombosis Risk Factor Assmnt - Choose All That Apply Any of the Below Risk Factors Present?: Yes Each Factor Represents 1 point: Age 41-60 years Other Risk Factors: No Other congenital or acquired thrombophilia - If yes, enter type in comment: No Thrombosis Risk Factor Assessment Total Risk Factor Score: 1 Thrombosis Risk Factor Assessment Level: Low Risk Assessment and Plan Plan: ASSESSMENT: Acute on chronic alcoholic pancreatitis History of alcohol abuse, patient continues to drink, patient states he has not drank alcohol in 2 months, however serum alcohol was 0.32 on 10/20/2017 Recent EGD revealing mild duodenitis involving the duodenal bulb and second part of the duodenum most likely related to pancreatitis. 2 superficial erosions at the GE junction consistent with LA grade B reflux esophagitis. Chronic left hydroureteronephrosis secondary to urinary reflux from bladder into left ureter Urinary retention secondary to atonic bladder, patient instructed to self cath frequently Recent diagnosis of symptomatic urinary tract infection Multiple hospitalizations secondary to abdominal pain and pancreatitis, patient has 30 visits to the hospital in 2018 Chronic low back pain Generalized anxiety disorder Depression Nicotine dependence, patient is a current cigarette smoker, patient reports to packs per day PLAN: GI on consult. Appreciate recommendations and input Continue IV fluids Begin clear liquid diet Alcohol cessation was advised but patient continues to report he is not drinking Consult Dr. Curry to evaluate patients chronic pain. Await recommendations Patient will only void when his bladder has over 700cc per urology during previous admission. Patient is voiding occasionally on his own. Bladder scan after each void. If over 500cc, straight cath. Patient to be bladder scanned Q6 hours. If greater than 500cc, straight cath Home meds as appropriate Monitor labs. Repeat daily. GI prophylaxis: Protonix 40 mg PO Daily DVT prophylaxis: SCDs to bilateral lower extremities Monitor vital signs and address as appropriate Discharge planning: Patient to return home when stable Further recommendations pending patient's course Nurse practitioner note has been reviewed by physician. Signing provider agrees with the documented findings, assessment, and plan of care.
--- NOTE | 2017-10-30 16:21 | P.CONS ---
History of Present Illness - Chief Complaint Medical debility - History of Present Illness I had the opportunity to see patient for inpatient rehab consultation with regard to medical debility. He was admitted to [facility] today with nausea, emesis, abdominal pain. Seen by GI diagnosed pancreatitis and alcohol abuse. I have added PT and OT at this time. Previous functional history as elicited from patient: 39-year-old right-handed white male who is lives and 2 floor home with and occasionally with a stepson. On disability. They share the cooking and laundry. does the driving. Patient independent with sitdown shower and gait without device. Admits to smoking 2-1/2 packs per day and denies alcohol at this time although history of alcohol abuse. Family history of diabetes in father. Review of Systems Review of systems: ENT: Denies sneezes or discharge. Eyes: Denies discharge or photophobia. Cardiac: Denies chest pain or palpitation. Pulmonary: Denies cough or shortness of breath. Gastrointestinal: Abdominal discomfort. Genitourinary: Denies discharge or frequency. Musculoskeletal: Denies muscle or bone aches. Neurologic: Denies motor or sensory change or weakness. Endocrine: Denies shakes or sweats. Oncology: Denies cancers. Dermatologic: Denies rash, itching, pruritus. ALLERGY/immunology: Denies sneezes, rashes. Past Medical History Past Medical History: GERD/Reflux, GI Bleed, Hyperlipidemia, Liver Disease, Pneumonia, Prostate Disorder Additional Past Medical History / Comment(s): ETOH ABUSE-RECURRANT PANCREATITIS , ALCOHOLIC HEPATITIS, NEUROPATHY BILATERAL FEET SINCE BACK SURGERY, hx of CHRONIC URINARY RETENTION DUE TO BACK PROBLEMS-SELF CATHS, CHRONIC LOW BACK PAIN (HAS STIMULATOR THAT PT STATES DOES NOT WORK), HEMATEMESIS, CHRONIC LOOSE STOOLS. History of Any Multi-Drug Resistant Organisms: None Reported Past Surgical History: Back Surgery, Cholecystectomy, Orthopedic Surgery Additional Past Surgical History / Comment(s): EGDS, colonoscopy, bronchoscopy, BACK surgeries with TITANIUM PLATES MILTON and CAGES, KIDNEY STONES removed per pt, SPINAL CORD STIMULATOR, ISMAEL KNEE ARTHROSCOPIES, PINKY FINGER RT HAND REATTATCHED Past Anesthesia/Blood Transfusion Reactions: No Reported Reaction Past Psychological History: Anxiety, Depression Additional Psychological History / Comment(s): PT LIVES AT HOME WITH in a 2 story home that has 3 porch steps/7 steps to 2nd floor.. 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 occasionally uses either cane, walker or w/c also has shower chair and raised toilet seat. He does not drive, his can drive. Smoking Status: Current every day smoker Past Alcohol Use History: None Reported Additional Past Alcohol Use History / Comment(s): Smokes 2 packs per day; alcoholic and last drank a "few sips" of beer last night. Past Drug Use History: None Reported Additional Drug Use History / Comment(s): Patient reports that he has not used Marijuana in over 12 months. - Past Family History Father Family Medical History: Diabetes Mellitus Additional Family Medical History / Comment(s): Mother Family Medical History: Dementia, Hyperlipidemia, Hypertension Additional Family Medical History / Comment(s): Mother is living. Medications and Allergies Home Medications Medication Instructions Recorded Confirmed Type Folic Acid 1 mg PO DAILY #30 tablet 07/15/15 10/29/17 Rx Atorvastatin [Lipitor] 10 mg PO HS 09/27/15 10/29/17 History Albuterol Inhaler [Ventolin Hfa 2 puff INHALATION RT-Q4H PRN 03/01/17 10/29/17 History Inhaler] traZODone HCL 50 mg PO HS 04/04/17 10/29/17 History Omeprazole [PriLOSEC] 40 mg PO BID #60 capsule. 05/16/17 10/29/17 Rx Gabapentin [Neurontin] 400 mg PO TID 07/18/17 10/29/17 History cloNIDine HCL [Catapres] 0.1 mg PO TID #30 tab 08/23/17 10/29/17 Rx Acetaminophen-Codeine 300-30mg 1 tab PO TID PRN 09/10/17 10/29/17 History [Tylenol w/codeine #3] DULoxetine HCL [Cymbalta] 60 mg PO DAILY 09/18/17 10/29/17 History Magnesium Oxide [Mag-Ox] 200 mg PO DAILY 09/18/17 10/29/17 History Tamsulosin HCl [Flomax] 0.4 mg PO DAILY 09/18/17 10/29/17 History Diazepam [Valium] 5 mg PO TID 10/20/17 10/29/17 History Lipase/Protease/Amylase [Rebel Dr 2 cap PO TID-W/MEALS 10/20/17 10/29/17 History 24,000 Units Capsule] Nicotine 21Mg/24Hr Patch [Habitrol] 1 patch TRANSDERM DAILY 10/20/17 10/29/17 History buPROPion XL [Wellbutrin XL] 150 mg PO DAILY 10/20/17 10/29/17 History Allergies Allergy/AdvReac Type Severity Reaction Status Date / Time No Known Allergies Allergy Verified 10/29/17 19:34 Physical Exam Vitals: Vital Signs Temp Pulse Pulse Resp BP BP Pulse Ox 10/30/17 15:00 98.1 F 81 16 106/70 100 10/30/17 05:59 97.9 F 76 18 168/84 98 10/29/17 22:46 98.7 F 84 18 148/84 100 10/29/17 21:25 98.9 F 84 18 159/75 100 10/29/17 21:04 97.1 F L 95 18 145/85 96 10/29/17 19:23 98.0 F 102 H 18 131/86 100 Intake and Output 10/30/17 10/30/17 10/30/17 06:59 14:59 22:59 Intake Total 2500 Output Total 67 Balance 2433 Intake: Intake, IV Titration 2200 Amount Lactated Ringers 1,000 ml 1200 @ 150 mls/hr IV .Q6H40M [facility] Rx#:[id number] Sodium Chloride 0.9% 1, 1000 000 ml @ 999 mls/hr IV . Q1H1M [facility] Rx#:[id number] Oral 300 Output: Post Void Residual 67 Other: Voiding Method Toilet Toilet # Voids 0 3 # Bowel Movements 1 Skin: Good color, texture, turgor. General: Thin to Medium build and comfortable appearance. Head: Normocephalic, atraumatic. Eyes: Symmetric. Pupils equal round. Ears: Symmetric. Hearing within normal limits. Mouth: Clear. Neck: Supple. Carotid without bruit. Cardiac: Regular rate and rhythm. Lungs: Clear anteriorly and posteriorly. Abdomen: Soft active nontender. Extremities: Normal tone. Neurological: Mental status: Alert, cooperative, pleasant. Cranial nerves: Symmetric facial tone and trapezius. Motor: Able to elevate all limbs off of bed with active movement distally. Sensation: Intact throughout. DTRs: Symmetric and equal throughout. Mobility: Sits with standby to minimal assistance. Results CBC & Chem 7: 10/29/17 19:54 10/29/17 19:54 Labs: Abnormal Lab Results - Last 24 Hours (Table) 10/29/17 10/29/17 10/30/17 Range/Units 19:54 19:54 10:39 WBC 14.7 H (3.8-10.6) k/uL RBC 3.98 L (4.30-5.90) m/uL Hgb 12.2 L (13.0-17.5) gm/dL Hct 36.5 L (39.0-53.0) % RDW 15.6 H (11.5-15.5) % Neutrophils # 13.0 H (1.3-7.7) k/uL BUN 7 L (9-20) mg/dL Creatinine 0.60 L (0.66-1.25) mg/dL Glucose 100 H (74-99) mg/dL Alkaline Phosphatase 219 H (38-126) U/L Total Protein 6.0 L (6.3-8.2) g/dL Albumin 3.3 L (3.5-5.0) g/dL Amylase 279 H (30-110) U/L Lipase 3491 H 357 H (23-300) U/L Assessment and Plan (1) Acute on chronic pancreatitis Current Visit: Yes Status: Acute Code(s): K85.90 - ACUTE PANCREATITIS WITHOUT NECROSIS OR INFECTION, UNSP; K86.1 - OTHER CHRONIC PANCREATITIS SNOMED Code(s): 764972488 (2) Alcohol abuse Current Visit: No Status: Acute Code(s): F10.10 - ALCOHOL ABUSE, UNCOMPLICATED SNOMED Code(s): 24546841 (3) Altered mental status Current Visit: No Status: Acute Code(s): R41.82 - ALTERED MENTAL STATUS, UNSPECIFIED SNOMED Code(s): 491854375 Plan: Impression: 1. Medical debility. 2. History of alcohol abuse. 3. Acute on chronic pancreatitis. 4. Liver disease. 5. Dyslipidemia. 6. GERD. 7. History GI bleed. Comments and plan: At this time I have added physical and occupational therapies. Follow therapies with yourself. Hopefully patient hasn't become too debilitated or unsafe.
[2017-10-30] MEDS ORDERED: ATORVASTATIN 10 MG TAB PO SCH (21:00)
[2017-10-30 23:06] VITALS: RESP 18
[2017-10-31 01:16] LABS: Appearance,Urine Clear (Clear); Bilirubin,Urine Negative (Negative); Blood,Urine Negative (Negative); Color,Urine Colorless; Glucose,Urine (UA) Negative (Negative); Ketones,Urine Negative (Negative); Leukocyte Esterase,Urine Negative (Negative); Nitrite,Urine Negative (Negative); PH, Urine 6.5 (5.0-8.0); Protein,Urine Negative (Negative); Specific Gravity,Urine 1.002 (1.001-1.035); Urobilinogen,Urine <2.0 mg/dL (<2.0)
[2017-10-31] MEDS: LACTATED RINGERS 1,000 ML IV SCH ×3 (05:16→07:33)
[2017-10-31] MEDS: Acetaminophen-Codeine 300-30mg TAB PO PRN ×2 (05:37→11:34)
[2017-10-31 06:03] VITALS: BP 120/70; TEMP 98
[2017-10-31] MEDS: LIPASE PO SCH ×2 (07:33→11:35)
[2017-10-31] MEDS: AMYLASE PO SCH ×2 (07:33→11:35)
[2017-10-31] MEDS: PROTEASE PO SCH ×2 (07:33→11:35)
[2017-10-31] MEDS: buPROPion XL 150 MG TAB.ER.24H PO SCH (07:36)
[2017-10-31] MEDS: MAGNESIUM OXIDE 400 MG TAB PO SCH (07:36)
[2017-10-31] MEDS: PANTOPRAZOLE 40 MG TABLET PO SCH (07:36)
[2017-10-31] MEDS: NICOTINE 21MG/24HR PATCH TRANSDERM SCH (07:36)
[2017-10-31] MEDS: GABAPENTIN 400 MG CAP PO SCH (07:37)
[2017-10-31] MEDS: cloNIDine HCL 0.1 MG TAB PO SCH (07:37)
[2017-10-31] MEDS: DULoxetine HCL 60 MG CAPSULE.DR PO SCH (07:37)
[2017-10-31] MEDS: FOLIC ACID 1 MG TAB PO SCH (07:37)
[2017-10-31] MEDS: TAMSULOSIN 0.4 MG CAP.ER.24H PO SCH (07:37)
[2017-10-31] MEDS: DIAZEPAM 5 MG TAB PO SCH (07:41)
[2017-10-31 09:21] LABS: ALT 26 U/L (21-72); AST 15 U/L (17-59); Albumin 2.5 g/dL (3.5-5.0); Alkaline Phosphatase 145 U/L (38-126); Anion Gap 11 mmol/L; Blood Urea Nitrogen 4 mg/dL (9-20); Calcium 8.1 mg/dL (8.4-10.2); Carbon Dioxide 25 mmol/L (22-30); Chloride 102 mmol/L (98-107); Glucose 128 mg/dL (74-99); Lipase 372 U/L (23-300); Potassium 3.4 mmol/L (3.5-5.1); Sodium 138 mmol/L (137-145); Total Bilirubin 0.3 mg/dL (0.2-1.3); Total Protein 4.8 g/dL (6.3-8.2)
--- NOTE | 2017-10-31 09:27 | P.PN ---
Subjective Progress Note Date: 10/31/17 Principal diagnosis: Chronic relapsing alcohol pancreatitis Pancreatic enzymes improved. Abdominal pain improved. Tolerating clear liquids. Afebrile. Objective - Vital Signs Vital signs: Vital Signs Temp 98.0 F 10/31/17 06:02 Pulse 74 10/31/17 06:02 Resp 18 10/31/17 06:02 BP 120/70 10/31/17 06:02 Pulse Ox 96 10/31/17 06:02 Intake & Output 10/30/17 10/31/17 10/31/17 18:59 06:59 18:59 Intake Total 2500 240 Output Total 67 1281 600 Balance 2433 -1041 -600 Intake: Intake, IV Titration 2200 Amount Lactated Ringers 1,000 ml 1200 @ 150 mls/hr IV .Q6H40M [facility] Rx#:[id number] Sodium Chloride 0.9% 1, 1000 000 ml @ 999 mls/hr IV . Q1H1M [facility] Rx#:[id number] Oral 300 240 Output: Urine 700 600 Post Void Residual 67 581 Other: Voiding Method Toilet Urinal # Voids 3 1 1 # Bowel Movements 1 - Exam General appearance: The patient is alert, oriented, in no acute distress. HET: Head is normocephalic and atraumatic. Pupils are equal and reactive. Oropharynx is clear without lesions. Neck: Supple without lymphadenopathy. Trachea midline. Heart: S1 S2. Regular rate and rhythm. Lungs: No crackles or wheezes are heard. Abdomen: Soft, mild midepigastric tenderness, nondistended with bowel sounds. No peritoneal signs. No palpable organomegaly or masses. Extremities: Normal skin color and turgor. No cyanosis, rash, ulceration, clubbing, or edema. Radial and pedal pulses are 2/4 bilaterally. Neurological: No focal deficits. Strength and sensation are grossly intact. - Labs CBC & Chem 7: 10/29/17 19:54 10/29/17 19:54 Labs: Abnormal Lab Results - Last 24 Hours (Table) 10/30/17 Range/Units 10:39 Lipase 357 H (23-300) U/L Assessment and Plan (1) Acute on chronic pancreatitis Current Visit: Yes Status: Acute Code(s): K85.90 - ACUTE PANCREATITIS WITHOUT NECROSIS OR INFECTION, UNSP; K86.1 - OTHER CHRONIC PANCREATITIS SNOMED Code(s): 731763737 (2) Alcohol abuse Current Visit: No Status: Acute Code(s): F10.10 - ALCOHOL ABUSE, UNCOMPLICATED SNOMED Code(s): 25609096 Plan: 1. IV fluids 125 an hour. Full liquid diet and advance as tolerated. Supportive measures. GI prophylaxis. Outpatient pain management referral. Patient scheduled to follow-up in GI office Sunday at with Dr. Martinez. Assessment and plan of care discussed with Dr. Kellogg
[2017-10-31] MEDS ORDERED: SODIUM CHLORIDE 0.9% 1,000 ML IV SCH (09:30)
[2017-10-31] MEDS: POTASSIUM CHLORIDE ER 20 MEQ TAB.ER PO SCH ×2 (10:32→11:34)
[2017-10-31 11:10] VITALS: PULSE 76
--- NOTE | 2017-10-31 11:42 | P.DS ---
Providers Date of admission: 10/29/17 20:44 Expected date of discharge: 10/31/17 Attending physician: Carrillo Leo Consults: 10/29/17 21:12 Consult Physician Stat Consulting Provider: Consuelo Kellogg Consult Reason/Comments: Pancreatitis Do you want consulting provider notified?: Yes 10/30/17 09:44 Consult Physician Routine Consulting Provider: James Curry Consult Reason/Comments: pain management/acute on chronic pancreatitis Do you want consulting provider notified?: Yes Primary care physician: [facility] Course: 47-year-old male who presented to the emergency room with a chief complaint of abdominal pain, nausea, and vomiting. The patient was just discharged home on 10/28/2017. The patient has had numerous hospitalizations this year secondary to pancreatitis. This is the patients 30th visit to the hospital this year. The patient has a history of pancreatitis secondary to alcohol abuse, gastroesophageal reflux disease, hyperlipidemia, and urinary retention. He has been instructed to straight cath 3-4 times a day at home, but patient states he has only been doing this 1 or 2 times. He has was a history of anxiety and depression. He is a current cigarette smoker and smokes 2 packs per day. The patient states he has not consumed alcohol in 2 months. Patient's is at the bedside and insists that patient has not had any alcohol since and states he only had 2 beers on . Serum alcohol level was not completed on this admission, but serum alcohol level was drawn on a recent admission on 10/20/2017 which was positive for alcohol. Serum alcohol at that time was 32. Patient underwent recent EGD revealing mild duodenitis involving the duodenal bulb and second part of the duodenum most likely related to pancreatitis. 2 superficial erosions at the GE junction consistent with LA grade B reflux esophagitis. Laboratory data: WBC 14.6. Hemoglobin 0.2. Platelet count 395. Sodium 137. Potassium 3.9. BUN 7. Creatinine 0.60. Glucose 100. AST 17. ALT 31. Alkaline phosphatase 219. Amylase 279. Lipase 3491. The patient received IV hydration and clear liquid diet. His amylase and lipase are trending down. He reports relief of abdominal pain, nausea, and vomiting. He was evaluated by GI service. No further recommendations from their standpoint. His diet was advanced as tolerated. Dr. Curry was consulted for pain management for patients chronic pain. No changes were made to the patients regimen. Will have the patient follow up outpatient with pain management. The patient was deemed stable for discharge. He is to follow up on an outpatient basis with his primary care physician in all consult and providers. The patient was strongly encouraged to abstain from alcohol. DISCHARGE DIAGNOSIS: Acute on chronic alcoholic pancreatitis, improved at time of discharge History of alcohol abuse, patient continues to drink, patient states he has not drank alcohol in 2 months, however serum alcohol was 0.32 on 10/20/2017 Recent EGD revealing mild duodenitis involving the duodenal bulb and second part of the duodenum most likely related to pancreatitis. 2 superficial erosions at the GE junction consistent with LA grade B reflux esophagitis. Chronic left hydroureteronephrosis secondary to urinary reflux from bladder into left ureter Urinary retention secondary to atonic bladder, patient instructed to self cath frequently Recent diagnosis of symptomatic urinary tract infection Multiple hospitalizations secondary to abdominal pain and pancreatitis, patient has 30 visits to the hospital in 2018 Chronic low back pain Generalized anxiety disorder Depression Nicotine dependence, patient is a current cigarette smoker, patient reports to packs per day Nurse practitioner note has been reviewed by physician. Signing provider agrees with the documented findings, assessment, and plan of care. Plan - Discharge Summary Discharge Rx Participant: No New Discharge Prescriptions: Continue Folic Acid 1 mg PO DAILY #30 tablet Atorvastatin [Lipitor] 10 mg PO HS Albuterol Inhaler [Ventolin Hfa Inhaler] 2 puff INHALATION RT-Q4H PRN PRN Reason: Shortness Of Breath traZODone HCL 50 mg PO HS Omeprazole [PriLOSEC] 40 mg PO BID #60 capsule. Gabapentin [Neurontin] 400 mg PO TID cloNIDine HCL [Catapres] 0.1 mg PO TID #30 tab Acetaminophen-Codeine 300-30mg [Tylenol w/codeine #3] 1 tab PO TID PRN PRN Reason: pain DULoxetine HCL [Cymbalta] 60 mg PO DAILY Magnesium Oxide [Mag-Ox] 200 mg PO DAILY Tamsulosin HCl [Flomax] 0.4 mg PO DAILY buPROPion XL [Wellbutrin XL] 150 mg PO DAILY Nicotine 21Mg/24Hr Patch [Habitrol] 1 patch TRANSDERM DAILY Diazepam [Valium] 5 mg PO TID Lipase/Protease/Amylase [Rebel Belcher 24,000 Units Capsule] 2 cap PO TID-W/MEALS Discharge Medication List Folic Acid 1 mg PO DAILY #30 tablet 07/15/15 [Rx] Atorvastatin [Lipitor] 10 mg PO HS 09/27/15 [History] Albuterol Inhaler [Ventolin Hfa Inhaler] 2 puff INHALATION RT-Q4H PRN 03/01/17 [ History] traZODone HCL 50 mg PO HS 04/04/17 [History] Omeprazole [PriLOSEC] 40 mg PO BID #60 capsule. 05/16/17 [Rx] Gabapentin [Neurontin] 400 mg PO TID 07/18/17 [History] cloNIDine HCL [Catapres] 0.1 mg PO TID #30 tab 08/23/17 [Rx] Acetaminophen-Codeine 300-30mg [Tylenol w/codeine #3] 1 tab PO TID PRN 09/10/17 [History] DULoxetine HCL [Cymbalta] 60 mg PO DAILY 09/18/17 [History] Magnesium Oxide [Mag-Ox] 200 mg PO DAILY 09/18/17 [History] Tamsulosin HCl [Flomax] 0.4 mg PO DAILY 09/18/17 [History] Diazepam [Valium] 5 mg PO TID 10/20/17 [History] Lipase/Protease/Amylase [Rebel Belcher 24,000 Units Capsule] 2 cap PO TID-W/MEALS 07/08 [History] Nicotine 21Mg/24Hr Patch [Habitrol] 1 patch TRANSDERM DAILY 10/20/17 [History] buPROPion XL [Wellbutrin XL] 150 mg PO DAILY 10/20/17 [History] Follow up Appointment(s)/Referral(s): Phillip Martinez MD [STAFF PHYSICIAN] - 11/05/17 2:15 pm Carrillo Leo Jr, DO [Primary Care Provider] - 1-2 days James Curry MD [STAFF PHYSICIAN] - 1-2 Days Discharge Disposition: HOME SELF-CARE
== END 2017-10-31 14:32 | disposition home or self-care (01) | DRG 439 ==
LOC: EC 19:15 → 4MS4W 20:44
PROVIDERS: ADMIT Family Medicine; ATTEND Family Medicine
DX: K85.20 Alcohol induced acute pancreatitis without necrosis or infection (principal); N13.30 Unspecified hydronephrosis; E78.5 Hyperlipidemia, unspecified; F10.10 Alcohol abuse, uncomplicated; F17.210 Nicotine dependence, cigarettes, uncomplicated; F32.9 Major depressive disorder, single episode, unspecified; F41.1 Generalized anxiety disorder; G89.29 Other chronic pain; K21.0 Gastro-esophageal reflux disease with esophagitis; K76.9 Liver disease, unspecified; K86.0 Alcohol-induced chronic pancreatitis; N31.2 Flaccid neuropathic bladder, not elsewhere classified; Z79.899 Other long term (current) drug therapy; Z82.49 Family history of ischemic heart disease and other diseases of the circulatory system; Z83.3 Family history of diabetes mellitus; Z87.442 Personal history of urinary calculi; Z90.49 Acquired absence of other specified parts of digestive tract; M54.5 Low back pain
CPT/HCPCS: 36415; 80053; 81003; 82150; 83690; 85025; 85610; 85730; 94640; 96361; 96374; 96375; 99284

== ENCOUNTER 2017-11-02 10:51 | Emergency (ER) | payer MEDICARE, OTHER ==
[2017-11-02 11:15] VITALS: TEMP 98.3
[2017-11-02] MEDS ORDERED: SODIUM CHLORIDE 0.9% 1,000 ML IV STA (11:30)
[2017-11-02] MEDS ORDERED: ONDANSETRON 4 MG/2 ML VIAL IVP STA (11:30)
[2017-11-02] MEDS ORDERED: PANTOPRAZOLE 40 MG/10 ML VIAL IVP STA (11:30)
--- NOTE | 2017-11-02 11:34 | ED ---
General Adult HPI - General Chief complaint: Abdominal Pain Stated complaint: abdominl pain Time Seen by Provider: 11/02/17 11:18 Source: patient, RN notes reviewed, old records reviewed Mode of arrival: wheelchair Limitations: no limitations - History of Present Illness Initial comments: Patient is a pleasant 47-year-old male presenting to the emergency Department with abdominal discomfort. Patient has a history of chronic pancreatitis with similar symptoms. Discomfort is in the epigastric region without radiation. Patient has been vomiting since last night and still feels nauseated. No constipation or diarrhea. Patient states he last drank alcohol on . Chart review shows patient did have some alcohol in his system on the second of this month. Patient does state that his pancreatitis is secondary to his alcohol abuse. - Related Data Home Medications Medication Instructions Recorded Confirmed Atorvastatin [Lipitor] 10 mg PO HS 09/27/15 11/02/17 Albuterol Inhaler [Ventolin Hfa 2 puff INHALATION RT-Q4H PRN 03/01/17 11/02/17 Inhaler] traZODone HCL 50 mg PO HS 04/04/17 11/02/17 Gabapentin [Neurontin] 400 mg PO TID 07/18/17 11/02/17 Acetaminophen-Codeine 300-30mg 1 tab PO TID PRN 09/10/17 11/02/17 [Tylenol w/codeine #3] DULoxetine HCL [Cymbalta] 60 mg PO DAILY 09/18/17 11/02/17 Magnesium Oxide [Mag-Ox] 200 mg PO DAILY 09/18/17 11/02/17 Tamsulosin HCl [Flomax] 0.4 mg PO DAILY 09/18/17 11/02/17 Diazepam [Valium] 5 mg PO TID 10/20/17 11/02/17 Lipase/Protease/Amylase [Rebel Belcher 2 cap PO TID-W/MEALS 10/20/17 11/02/17 24,000 Units Capsule] buPROPion XL [Wellbutrin XL] 150 mg PO DAILY 10/20/17 11/02/17 Previous Rx's Medication Instructions Recorded Folic Acid 1 mg PO DAILY #30 tablet 07/15/15 Omeprazole [PriLOSEC] 40 mg PO BID #60 capsule. 05/16/17 cloNIDine HCL [Catapres] 0.1 mg PO TID #30 tab 08/23/17 Allergies Allergy/AdvReac Type Severity Reaction Status Date / Time No Known Allergies Allergy Verified 11/02/17 11:23 Review of Systems ROS Statement: Those systems with pertinent positive or pertinent negative responses have been documented in the HPI. ROS Other: All systems not noted in ROS Statement are negative. Constitutional: Denies: fever Eyes: Denies: eye pain ENT: Denies: ear pain Respiratory: Denies: cough Cardiovascular: Denies: chest pain Endocrine: Denies: fatigue Gastrointestinal: Reports: abdominal pain, nausea, vomiting. Denies: diarrhea, constipation Genitourinary: Denies: dysuria Musculoskeletal: Denies: back pain Skin: Denies: rash Neurological: Denies: weakness Past Medical History Past Medical History: GERD/Reflux, GI Bleed, Hyperlipidemia, Liver Disease, Pneumonia, Prostate Disorder Additional Past Medical History / Comment(s): ETOH ABUSE-RECURRANT PANCREATITIS , ALCOHOLIC HEPATITIS, NEUROPATHY BILATERAL FEET SINCE BACK SURGERY, hx of CHRONIC URINARY RETENTION DUE TO BACK PROBLEMS-SELF CATHS, CHRONIC LOW BACK PAIN (HAS STIMULATOR THAT PT STATES DOES NOT WORK), HEMATEMESIS, CHRONIC LOOSE STOOLS. History of Any Multi-Drug Resistant Organisms: None Reported Past Surgical History: Back Surgery, Cholecystectomy, Orthopedic Surgery Additional Past Surgical History / Comment(s): EGDS, colonoscopy, bronchoscopy, BACK surgeries with TITANIUM PLATES MILTON and CAGES, KIDNEY STONES removed per pt, SPINAL CORD STIMULATOR, ISMAEL KNEE ARTHROSCOPIES, PINKY FINGER RT HAND REATTATCHED Past Anesthesia/Blood Transfusion Reactions: No Reported Reaction Past Psychological History: Anxiety, Depression Smoking Status: Current every day smoker Past Alcohol Use History: None Reported Past Drug Use History: None Reported - Past Family History Father Family Medical History: Diabetes Mellitus Additional Family Medical History / Comment(s): Mother Family Medical History: Dementia, Hyperlipidemia, Hypertension Additional Family Medical History / Comment(s): Mother is living. General Exam Limitations: no limitations General appearance: alert, in no apparent distress Head exam: Present: atraumatic Eye exam: Present: normal appearance, PERRL ENT exam: Present: normal oropharynx Neck exam: Present: normal inspection Respiratory exam: Present: normal lung sounds bilaterally Cardiovascular Exam: Present: regular rate, normal rhythm Expanded Peripheral pulses: 2+: Posterior Tibialis (R), Posterior Tibialis (L) GI/Abdominal exam: Present: soft, tenderness (Mild tenderness in the epigastric region), normal bowel sounds. Absent: distended, guarding, rebound, rigid, pulsatile mass Extremities exam: Present: normal inspection Neurological exam: Present: alert Psychiatric exam: Present: normal affect, normal mood Skin exam: Present: normal color Course Vital Signs 11/02/17 11/02/17 11:13 14:00 Temperature 98.3 F Pulse Rate 83 86 Respiratory 18 16 Rate Blood Pressure 146/91 156/79 O2 Sat by Pulse 100 100 Oximetry Medical Decision Making - Medical Decision Making Patient reevaluated and resting comfortably in bed. Patient was updated on results and plan. Case was discussed in detail with Dr. Trejo who is very familiar with this patient. He states it is okay to give the patient a dose of pain medicine and discharged. They will follow-up on Sunday. - Lab Data Result diagrams: 11/02/17 12:31 11/02/17 12:31 Lab Results 11/02/17 11/02/17 11/02/17 Range/Units 12:31 12:31 12:31 WBC 13.0 H (3.8-10.6) k/uL RBC 4.18 L (4.30-5.90) m/uL Hgb 12.8 L (13.0-17.5) gm/dL Hct 38.8 L (39.0-53.0) % MCV 92.9 (80.0-100.0) fL MCH 30.5 (25.0-35.0) pg MCHC 32.8 (31.0-37.0) g/dL RDW 16.2 H (11.5-15.5) % Plt Count 374 (150-450) k/uL Neutrophils % 88 % Lymphocytes % 8 % Monocytes % 4 % Eosinophils % 1 % Basophils % 0 % Neutrophils # 11.4 H (1.3-7.7) k/uL Lymphocytes # 1.0 (1.0-4.8) k/uL Monocytes # 0.5 (0-1.0) k/uL Eosinophils # 0.1 (0-0.7) k/uL Basophils # 0.0 (0-0.2) k/uL Anisocytosis Slight PT 10.5 (9.0-12.0) sec INR 1.1 (<1.2) APTT 25.1 (22.0-30.0) sec Sodium 136 L (137-145) mmol/L Potassium 4.7 (3.5-5.1) mmol/L Chloride 97 L (98-107) mmol/L Carbon Dioxide 28 (22-30) mmol/L Anion Gap 11 mmol/L BUN 8 L (9-20) mg/dL Creatinine 0.54 L (0.66-1.25) mg/dL Est GFR (CKD-EPI)AfAm >90 (>60 ml/min/1.73 sqM) Est GFR (CKD-EPI)NonAf >90 (>60 ml/min/1.73 sqM) Glucose 105 H (74-99) mg/dL Calcium 8.9 (8.4-10.2) mg/dL Total Bilirubin 0.7 (0.2-1.3) mg/dL AST 27 (17-59) U/L ALT 28 (21-72) U/L Alkaline Phosphatase 190 H (38-126) U/L Total Protein 6.4 (6.3-8.2) g/dL Albumin 3.5 (3.5-5.0) g/dL Amylase 220 H (30-110) U/L Lipase 3288 H (23-300) U/L Serum Alcohol <10 mg/dL - Radiology Data Radiology results: image reviewed (Abdominal x-ray shows no acute abnormality.) Disposition Clinical Impression: Chronic pancreatitis Disposition: HOME SELF-CARE Condition: Stable Instructions: Pancreatitis (ED) Additional Instructions: Discontinue alcohol use. Please follow-up with Dr. Trejo on Sunday. Return for fevers, change or worsening symptoms, uncontrolled vomiting, or other concerns. Is patient prescribed a controlled substance at d/c from ED?: No Referrals: Carrillo Leo Jr, [Primary Care Provider] - 1-2 days Time of Disposition: 14:14
[2017-11-02 12:52] LABS: Anisocytosis Slight; Basophils % (A) 0 %; Eosinophils # (A) 0.1 k/uL (0-0.7); Eosinophils % (A) 1 %; HCT 38.8 % (39.0-53.0); HGB 12.8 gm/dL (13.0-17.5); Lymphocytes % (A) 8 %; MCH 30.5 pg (25.0-35.0); MCHC 32.8 g/dL (31.0-37.0); MCV 92.9 fL (80.0-100.0); Mean Platelet Volume 7.5; Monocytes # (A) 0.5 k/uL (0-1.0); Monocytes % (A) 4 %; Neutrophils # (A) 11.4 k/uL (1.3-7.7); Neutrophils % (A) 88 %; Platelet Count 374 k/uL (150-450); RBC 4.18 m/uL (4.30-5.90); RDW 16.2 % (11.5-15.5)
--- NOTE | 2017-11-02 12:52 | XR ---
Abdomen HISTORY: Pain Frontal view of the abdomen on 2 images correlated to prior abdomen 10/27/2017, CT abdomen pelvis 018 Postop changes are again noted. There are overlying leads. No evident pneumoperitoneum or bowel obstr uction. Bone mineralization is stable. IMPRESSION: No acute abnormality.
[2017-11-02 13:01] LABS: INR 1.1 (<1.2); Partial Thromboplastin Time 25.1 sec (22.0-30.0); Prothrombin Time 10.5 sec (9.0-12.0)
[2017-11-02 13:04] LABS: Alcohol <10 mg/dL; Amylase 220 U/L (30-110); Anion Gap 11 mmol/L; Calcium 8.9 mg/dL (8.4-10.2); Carbon Dioxide 28 mmol/L (22-30); Chloride 97 mmol/L (98-107); Glucose 105 mg/dL (74-99); Sodium 136 mmol/L (137-145); Total Bilirubin 0.7 mg/dL (0.2-1.3)
[2017-11-02 13:07] LABS: Blood Urea Nitrogen 8 mg/dL (9-20); Potassium 4.7 mmol/L (3.5-5.1); Total Protein 6.4 g/dL (6.3-8.2)
[2017-11-02 13:08] LABS: ALT 28 U/L (21-72); AST 27 U/L (17-59); Albumin 3.5 g/dL (3.5-5.0); Alkaline Phosphatase 190 U/L (38-126)
[2017-11-02 13:11] LABS: Lipase 3288 U/L (23-300)
[2017-11-02] MEDS ORDERED: METOCLOPRAMIDE 5 MG/ML 2 ML VIAL IVP STA (14:11)
[2017-11-02] MEDS ORDERED: MORPHINE SULFATE 2 MG/ML SYRINGE IVP STA (14:11)
[2017-11-02 15:17] VITALS: BP 147/90; PULSE 71; RESP 18
== END 2017-11-02 15:30 | disposition home or self-care (01) ==
LOC: EC 10:51
DX: K86.1 Other chronic pancreatitis (principal); E78.5 Hyperlipidemia, unspecified; G62.9 Polyneuropathy, unspecified; N42.9 Disorder of prostate, unspecified; F32.9 Major depressive disorder, single episode, unspecified; F41.9 Anxiety disorder, unspecified; F17.200 Nicotine dependence, unspecified, uncomplicated; Z79.899 Other long term (current) drug therapy; Z87.448 Personal history of other diseases of urinary system; Z90.49 Acquired absence of other specified parts of digestive tract
CPT/HCPCS: 36415; 80053; 82150; 83690; 85025; 85610; 85730; 80320; 74018; 99284; 96374; 96375 ×3; 96361; J2765; J2405; J2270; C9113

== ENCOUNTER 2017-11-06 19:19 | Emergency (ER) | payer MEDICARE, OTHER ==
[2017-11-06] MEDS ORDERED: ONDANSETRON 4 MG/2 ML VIAL IVP STA (19:47)
[2017-11-06] MEDS ORDERED: MORPHINE SULFATE 2 MG/ML SYRINGE IV STA (19:47)
[2017-11-06] MEDS ORDERED: SODIUM CHLORIDE 0.9% 1,000 ML IV STA (19:47)
--- NOTE | 2017-11-06 19:49 | ED ---
Abdominal Pain HPI - General Chief Complaint: Abdominal Pain Stated Complaint: Abd Pain Time Seen by Provider: 11/06/17 19:41 Source: patient Mode of arrival: wheelchair Limitations: no limitations - History of Present Illness Initial Comments: 47-year-old male patient with past medical history significant for chronic alcoholic pancreatitis presents to the emergency department today for evaluation of increased midepigastric abdominal pain and nausea. Patient states he did have one episode of vomiting last evening but hasn't vomited since. States he is very nauseated and has been eating or drinking today. States these last drink of alcohol was 2-1/2 months ago. States that the pain in his abdomen is sharp and does radiate through to his back. He denies any fevers or chills. Denies any diarrhea or constipation. Denies any difficulty with urination. Patient states that his pain feels like his previous exacerbations of pancreatitis. Patient denies any recent rash, shortness breath , chest pain, numbness, tingling, dizziness, weakness, hematuria, dysuria, urinary urgency, urinary frequency, headache, visual changes, or any other complaints. - Related Data Home Medications Medication Instructions Recorded Confirmed Atorvastatin [Lipitor] 10 mg PO HS 09/27/15 11/06/17 Albuterol Inhaler [Ventolin Hfa 2 puff INHALATION RT-Q4H PRN 03/01/17 11/06/17 Inhaler] traZODone HCL 50 mg PO HS 04/04/17 11/06/17 Gabapentin [Neurontin] 400 mg PO TID 07/18/17 11/06/17 Acetaminophen-Codeine 300-30mg 1 tab PO TID PRN 09/10/17 11/06/17 [Tylenol w/codeine #3] DULoxetine HCL [Cymbalta] 60 mg PO DAILY 09/18/17 11/06/17 Magnesium Oxide [Mag-Ox] 200 mg PO DAILY 09/18/17 11/06/17 Tamsulosin HCl [Flomax] 0.4 mg PO DAILY 09/18/17 11/06/17 Diazepam [Valium] 5 mg PO TID 10/20/17 11/06/17 Lipase/Protease/Amylase [Creon Dr 2 cap PO TID-W/MEALS 10/20/17 11/06/17 24,000 Units Capsule] buPROPion XL [Wellbutrin XL] 150 mg PO DAILY 10/20/17 11/06/17 Previous Rx's Medication Instructions Recorded Folic Acid 1 mg PO DAILY #30 tablet 07/15/15 Omeprazole [PriLOSEC] 40 mg PO BID #60 capsule. 05/16/17 cloNIDine HCL [Catapres] 0.1 mg PO TID #30 tab 08/23/17 Allergies Allergy/AdvReac Type Severity Reaction Status Date / Time No Known Allergies Allergy Verified 11/06/17 19:43 Review of Systems ROS Statement: Those systems with pertinent positive or pertinent negative responses have been documented in the HPI. ROS Other: All systems not noted in ROS Statement are negative. Past Medical History Past Medical History: GERD/Reflux, GI Bleed, Hyperlipidemia, Liver Disease, Pneumonia, Prostate Disorder Additional Past Medical History / Comment(s): ETOH ABUSE-RECURRANT PANCREATITIS , ALCOHOLIC HEPATITIS, NEUROPATHY BILATERAL FEET SINCE BACK SURGERY, hx of CHRONIC URINARY RETENTION DUE TO BACK PROBLEMS-SELF CATHS, CHRONIC LOW BACK PAIN (HAS STIMULATOR THAT PT STATES DOES NOT WORK), HEMATEMESIS, CHRONIC LOOSE STOOLS. History of Any Multi-Drug Resistant Organisms: None Reported Past Surgical History: Back Surgery, Cholecystectomy, Orthopedic Surgery Additional Past Surgical History / Comment(s): EGDS, colonoscopy, bronchoscopy, BACK surgeries with TITANIUM PLATES MILTON and CAGES, KIDNEY STONES removed per pt, SPINAL CORD STIMULATOR, ISMAEL KNEE ARTHROSCOPIES, PINKY FINGER RT HAND REATTATCHED Past Anesthesia/Blood Transfusion Reactions: No Reported Reaction Past Psychological History: Anxiety, Depression Smoking Status: Current every day smoker Past Alcohol Use History: None Reported Past Drug Use History: None Reported - Past Family History Father Family Medical History: Diabetes Mellitus Additional Family Medical History / Comment(s): Mother Family Medical History: Dementia, Hyperlipidemia, Hypertension Additional Family Medical History / Comment(s): Mother is living. General Exam Limitations: no limitations General appearance: alert, in no apparent distress, other (This is a well- developed, well-nourished adult male patient in no acute distress. Vital signs upon presentation are temperature 98.6F, pulse 89, respirations 16, blood pressure 126/78, pulse ox 99% on room air.) Eye exam: Present: normal appearance, PERRL, EOMI. Absent: scleral icterus, conjunctival injection, periorbital swelling ENT exam: Present: normal exam, normal oropharynx, mucous membranes moist Respiratory exam: Present: normal lung sounds bilaterally. Absent: respiratory distress, wheezes, rales, rhonchi, stridor Cardiovascular Exam: Present: regular rate, normal rhythm, normal heart sounds. Absent: systolic murmur, diastolic murmur, rubs, gallop, clicks GI/Abdominal exam: Present: soft, tenderness (Midepigastric tenderness), normal bowel sounds. Absent: distended, guarding, rebound, rigid Rectal exam: Present: decreased rectal tone Neurological exam: Present: alert, oriented X3, CN II-XII intact Psychiatric exam: Present: normal affect, normal mood Skin exam: Present: warm, dry, intact, normal color. Absent: rash Course Vital Signs 11/06/17 11/06/17 19:33 21:44 Temperature 98.6 F 97.8 F Pulse Rate 89 82 Respiratory 16 18 Rate Blood Pressure 126/78 124/79 O2 Sat by Pulse 99 97 Oximetry Medical Decision Making - Medical Decision Making 47-year-old male patient presents the emergency department today for evaluation of midepigastric abdominal pain. Physical examination does reveal some midepigastric tenderness. Patient does have a history of chronic abdominal pain of chronic pancreatitis. Labs reviewed lipase is normal at this time. White blood cell count is normal. Vital signs are stable. Patient be discharged home at this time to follow-up with his primary care physician. Return parameters discussed in detail. He verbalizes understanding and agrees with this plan. - Lab Data Result diagrams: 11/06/17 20:10 11/06/17 20:10 Lab Results 11/06/17 11/06/17 Range/Units 20:10 20:10 WBC 8.0 (3.8-10.6) k/uL RBC 3.59 L (4.30-5.90) m/uL Hgb 10.9 L (13.0-17.5) gm/dL Hct 33.1 L (39.0-53.0) % MCV 92.2 (80.0-100.0) fL MCH 30.4 (25.0-35.0) pg MCHC 33.0 (31.0-37.0) g/dL RDW 16.6 H (11.5-15.5) % Plt Count 272 (150-450) k/uL Neutrophils % 69 % Lymphocytes % 22 % Monocytes % 6 % Eosinophils % 2 % Basophils % 0 % Neutrophils # 5.5 (1.3-7.7) k/uL Lymphocytes # 1.7 (1.0-4.8) k/uL Monocytes # 0.5 (0-1.0) k/uL Eosinophils # 0.2 (0-0.7) k/uL Basophils # 0.0 (0-0.2) k/uL Anisocytosis Slight Sodium 135 L (137-145) mmol/L Potassium 3.7 (3.5-5.1) mmol/L Chloride 99 (98-107) mmol/L Carbon Dioxide 25 (22-30) mmol/L Anion Gap 11 mmol/L BUN 11 (9-20) mg/dL Creatinine 0.50 L (0.66-1.25) mg/dL Est GFR (CKD-EPI)AfAm >90 (>60 ml/min/1.73 sqM) Est GFR (CKD-EPI)NonAf >90 (>60 ml/min/1.73 sqM) Glucose 95 (74-99) mg/dL Calcium 8.4 (8.4-10.2) mg/dL Total Bilirubin 0.3 (0.2-1.3) mg/dL AST 16 L (17-59) U/L ALT 29 (21-72) U/L Alkaline Phosphatase 148 H (38-126) U/L Total Protein 5.6 L (6.3-8.2) g/dL Albumin 3.0 L (3.5-5.0) g/dL Amylase 71 (30-110) U/L Lipase 267 (23-300) U/L Disposition Clinical Impression: Abdominal pain Disposition: HOME SELF-CARE Condition: Good Instructions: Abdominal Pain (ED) Additional Instructions: Increase fluids. Follow-up with your primary care physician for recheck. Return here immediately for any new, worsening, or concerning symptoms. Is patient prescribed a controlled substance at d/c from ED?: No Referrals: Carrillo Leo Jr, DO [Primary Care Provider] - 1-2 days Time of Disposition: 21:36
[2017-11-06 20:27] LABS: Anisocytosis Slight; Basophils % (A) 0 %; Eosinophils # (A) 0.2 k/uL (0-0.7); Eosinophils % (A) 2 %; HCT 33.1 % (39.0-53.0); HGB 10.9 gm/dL (13.0-17.5); Lymphocytes # (A) 1.7 k/uL (1.0-4.8); Lymphocytes % (A) 22 %; MCH 30.4 pg (25.0-35.0); MCV 92.2 fL (80.0-100.0); Monocytes # (A) 0.5 k/uL (0-1.0); Monocytes % (A) 6 %; Neutrophils # (A) 5.5 k/uL (1.3-7.7); Neutrophils % (A) 69 %; Platelet Count 272 k/uL (150-450); RBC 3.59 m/uL (4.30-5.90); RDW 16.6 % (11.5-15.5)
[2017-11-06 20:34] LABS: ALT 29 U/L (21-72); AST 16 U/L (17-59); Alkaline Phosphatase 148 U/L (38-126); Amylase 71 U/L (30-110); Anion Gap 11 mmol/L; Blood Urea Nitrogen 11 mg/dL (9-20); Calcium 8.4 mg/dL (8.4-10.2); Carbon Dioxide 25 mmol/L (22-30); Chloride 99 mmol/L (98-107); Glucose 95 mg/dL (74-99); Lipase 267 U/L (23-300); Potassium 3.7 mmol/L (3.5-5.1); Sodium 135 mmol/L (137-145); Total Bilirubin 0.3 mg/dL (0.2-1.3); Total Protein 5.6 g/dL (6.3-8.2)
[2017-11-06 21:45] VITALS: BP 124/79; PULSE 82; RESP 18; TEMP 97.8
== END 2017-11-06 21:45 | disposition home or self-care (01) ==
LOC: EC 19:19
DX: R10.13 Epigastric pain (principal); R11.2 Nausea with vomiting, unspecified; K21.9 Gastro-esophageal reflux disease without esophagitis; E78.5 Hyperlipidemia, unspecified; F32.9 Major depressive disorder, single episode, unspecified; F41.9 Anxiety disorder, unspecified; F17.200 Nicotine dependence, unspecified, uncomplicated; Z87.19 Personal history of other diseases of the digestive system; Z87.442 Personal history of urinary calculi; Z90.49 Acquired absence of other specified parts of digestive tract; Z98.890 Other specified postprocedural states; Z79.899 Other long term (current) drug therapy
CPT/HCPCS: 99284; 96374; 96375; 96361; 36415; 80053; 82150; 83690; 85025; J2405; J2270

== ENCOUNTER 2017-11-07 12:34 | Inpatient (IN) | payer MEDICARE, OTHER ==
[2017-11-07] MEDS ORDERED: ONDANSETRON 4 MG/2 ML VIAL IVP STA (14:29)
[2017-11-07] MEDS ORDERED: SODIUM CHLORIDE 0.9% 1,000 ML IV STA ×2 (14:29)
[2017-11-07] MEDS ORDERED: MORPHINE SULFATE 2 MG/ML SYRINGE IV STA ×2 (14:29→16:31)
--- NOTE | 2017-11-07 14:33 | ED ---
General Adult HPI - General Chief complaint: Nausea/Vomiting/Diarrhea Stated complaint: vomiting/weakness/dizziness Time Seen by Provider: 11/07/17 14:14 Source: patient Mode of arrival: wheelchair Limitations: no limitations - History of Present Illness Initial comments: This 47-year-old white male presents with the complaint of some nausea vomiting and abdominal pain. He vomited twice since this past evening. He states that it was a milky type of texture. His abdominal pain is primarily into the midepigastric region. He does have a long-standing history of chronic pancreatitis. He has been to the hospital over 30 times this year thus far. He 's had multiple admissions. He had a recent EGD which showed some duodenitis and esophagitis. He was just seen in the ER yesterday for similar and discharge. He denies any fevers or chills. He denies any diarrhea. He has had an 8 pound weight loss in the last week or so. He apparently has been unable to keep any food or fluids down for the last 2 days. No other complaints or modifying factors. Family members requesting a feeding tube. He states that he has tried multiple medications at home including Zofran without any relief. - Related Data Home Medications Medication Instructions Recorded Confirmed Atorvastatin [Lipitor] 10 mg PO HS 09/27/15 11/07/17 Albuterol Inhaler [Ventolin Hfa 2 puff INHALATION RT-Q4H PRN 03/01/17 11/07/17 Inhaler] traZODone HCL 50 mg PO HS 04/04/17 11/07/17 Gabapentin [Neurontin] 400 mg PO TID 07/18/17 11/07/17 Acetaminophen-Codeine 300-30mg 1 tab PO TID PRN 09/10/17 11/07/17 [Tylenol w/codeine #3] DULoxetine HCL [Cymbalta] 60 mg PO DAILY 09/18/17 11/07/17 Magnesium Oxide [Mag-Ox] 200 mg PO DAILY 09/18/17 11/07/17 Tamsulosin HCl [Flomax] 0.4 mg PO DAILY 09/18/17 11/07/17 Diazepam [Valium] 5 mg PO TID 10/20/17 11/07/17 Lipase/Protease/Amylase [Creon Dr 2 cap PO TID-W/MEALS 10/20/17 11/07/17 24,000 Units Capsule] buPROPion XL [Wellbutrin XL] 150 mg PO DAILY 10/20/17 11/07/17 Previous Rx's Medication Instructions Recorded Folic Acid 1 mg PO DAILY #30 tablet 07/15/15 Omeprazole [PriLOSEC] 40 mg PO BID #60 capsule. 05/16/17 cloNIDine HCL [Catapres] 0.1 mg PO TID #30 tab 08/23/17 Allergies Allergy/AdvReac Type Severity Reaction Status Date / Time No Known Allergies Allergy Verified 11/07/17 14:31 Review of Systems ROS Statement: Those systems with pertinent positive or pertinent negative responses have been documented in the HPI. ROS Other: All systems not noted in ROS Statement are negative. Past Medical History Past Medical History: GERD/Reflux, GI Bleed, Hyperlipidemia, Liver Disease, Pneumonia, Prostate Disorder Additional Past Medical History / Comment(s): ETOH ABUSE-RECURRANT PANCREATITIS , ALCOHOLIC HEPATITIS, NEUROPATHY BILATERAL FEET SINCE BACK SURGERY, hx of CHRONIC URINARY RETENTION DUE TO BACK PROBLEMS-SELF CATHS, CHRONIC LOW BACK PAIN (HAS STIMULATOR THAT PT STATES DOES NOT WORK), HEMATEMESIS, CHRONIC LOOSE STOOLS. History of Any Multi-Drug Resistant Organisms: None Reported Past Surgical History: Back Surgery, Cholecystectomy, Orthopedic Surgery Additional Past Surgical History / Comment(s): EGDS, colonoscopy, bronchoscopy, BACK surgeries with TITANIUM PLATES MILTON and CAGES, KIDNEY STONES removed per pt, SPINAL CORD STIMULATOR, ISMAEL KNEE ARTHROSCOPIES, PINKY FINGER RT HAND REATTATCHED Past Anesthesia/Blood Transfusion Reactions: No Reported Reaction Past Psychological History: Anxiety, Depression Smoking Status: Current every day smoker Past Alcohol Use History: None Reported Past Drug Use History: None Reported - Past Family History Father Family Medical History: Diabetes Mellitus Additional Family Medical History / Comment(s): Mother Family Medical History: Dementia, Hyperlipidemia, Hypertension Additional Family Medical History / Comment(s): Mother is living. General Exam - General Exam Comments Initial Comments: GENERAL: The patient is well nourished and well hydrated. VITAL SIGNS: Heart rate, blood pressure, respiratory rate reviewed as recorded in nurse's notes. EYES: Pupils are round and reactive. Extraocular movements are intact. No conjunctival / lid redness or swelling. ENT: No external evidence of injury, swelling, or ecchymosis. Airway is patent. Throat is clear. NECK: Nontender. No swelling or evidence of injury. No subcutaneous emphysema. Trachea is midline. No thyroid mass. HEART: Regular rate and rhythm. Good peripheral pulses. LUNGS/CHEST: Breath sounds clear and equal bilaterally. No rales, rhonchi, or wheezes. No ecchymosis, subcutaneous emphysema, or tenderness. ABDOMEN: There is mild tenderness in the midepigastric region. No palpable masses or organomegaly. No peritoneal signs. No abdominal wall swelling or ecchymosis. EXTREMITIES: No extremity tenderness. Normal muscle tone and function. No thoracolumbar tenderness. NEUROLOGIC: Sensation is grossly intact. Cranial nerve exam reveals face is symmetrical, tongue is midline, speech is clear. SKIN: No abrasions or ecchymosis is noted. No induration or masses noted. PSYCHIATRIC: Alert and oriented. Appropriate behavior and judgment. Limitations: no limitations Course Vital Signs 11/07/17 13:24 Temperature 98.4 F Pulse Rate 100 Respiratory 16 Rate Blood Pressure 109/77 O2 Sat by Pulse 100 Oximetry Medical Decision Making - Medical Decision Making The patient was seen and examined. All diagnostics are reviewed. An IV is started and he does receive some Zofran as well as some morphine intravenously. The laboratory came back showing elevation of the lipase at 1400 consistent with acute pancreatitis. The patient also had some mild hypochloremia and hyponatremia. There is also some mild anemia. The acute abdominal series x- ray does not show any acute processes. It is felt as though the patient would require admission to the hospital for further treatment. It appears that he has failed outpatient treatment. The case is discussed with Dr. Trejo and he would like us to discuss with GI. The case is discussed with Dr. Martinez and he recommends admission. Dr. Trejo did recommend admission of this is consistent with Dr. Martinez's recommendations. Dr. Trejo and like to hold any additional pain medications other than his Tylenol No. 3. He would also like to add a alcohol level and this is ordered. The patient is admitted to general medical floor for further treatment. - Lab Data Result diagrams: 11/07/17 15:12 11/07/17 15:12 Lab Results 11/07/17 11/07/17 Range/Units 15:12 15:12 WBC 10.7 H (3.8-10.6) k/uL RBC 4.09 L (4.30-5.90) m/uL Hgb 12.3 L (13.0-17.5) gm/dL Hct 37.1 L (39.0-53.0) % MCV 90.8 (80.0-100.0) fL MCH 30.1 (25.0-35.0) pg MCHC 33.1 (31.0-37.0) g/dL RDW 16.2 H (11.5-15.5) % Plt Count 338 (150-450) k/uL Neutrophils % 82 % Lymphocytes % 10 % Monocytes % 6 % Eosinophils % 1 % Basophils % 0 % Neutrophils # 8.8 H (1.3-7.7) k/uL Lymphocytes # 1.1 (1.0-4.8) k/uL Monocytes # 0.6 (0-1.0) k/uL Eosinophils # 0.1 (0-0.7) k/uL Basophils # 0.0 (0-0.2) k/uL Anisocytosis Slight Sodium 135 L (137-145) mmol/L Potassium 3.9 (3.5-5.1) mmol/L Chloride 96 L (98-107) mmol/L Carbon Dioxide 27 (22-30) mmol/L Anion Gap 12 mmol/L BUN 9 (9-20) mg/dL Creatinine 0.50 L (0.66-1.25) mg/dL Est GFR (CKD-EPI)AfAm >90 (>60 ml/min/1.73 sqM) Est GFR (CKD-EPI)NonAf >90 (>60 ml/min/1.73 sqM) Glucose 94 (74-99) mg/dL Calcium 8.8 (8.4-10.2) mg/dL Total Bilirubin 0.4 (0.2-1.3) mg/dL AST 15 L (17-59) U/L ALT 27 (21-72) U/L Alkaline Phosphatase 165 H (38-126) U/L Total Protein 5.9 L (6.3-8.2) g/dL Albumin 3.2 L (3.5-5.0) g/dL Amylase 137 H (30-110) U/L Lipase 1416 H (23-300) U/L Disposition Clinical Impression: Nausea and vomiting, Abdominal pain, Acute on chronic pancreatitis, Hyponatremia, Hypochloremia, Anemia Disposition: ADMITTED IP TO THIS HOSP Condition: Fair Is patient prescribed a controlled substance at d/c from ED?: No Time of Disposition: 16:05 Decision Date: 11/07/17 Decision Time: 16:06
[2017-11-07 15:25] LABS: Anisocytosis Slight; Basophils % (A) 0 %; Eosinophils # (A) 0.1 k/uL (0-0.7); Eosinophils % (A) 1 %; HCT 37.1 % (39.0-53.0); HGB 12.3 gm/dL (13.0-17.5); Lymphocytes # (A) 1.1 k/uL (1.0-4.8); Lymphocytes % (A) 10 %; MCH 30.1 pg (25.0-35.0); MCHC 33.1 g/dL (31.0-37.0); MCV 90.8 fL (80.0-100.0); Mean Platelet Volume 7.6; Monocytes # (A) 0.6 k/uL (0-1.0); Monocytes % (A) 6 %; Neutrophils # (A) 8.8 k/uL (1.3-7.7); Neutrophils % (A) 82 %; Platelet Count 338 k/uL (150-450); RBC 4.09 m/uL (4.30-5.90); RDW 16.2 % (11.5-15.5); WBC 10.7 k/uL (3.8-10.6)
[2017-11-07 15:41] LABS: ALT 27 U/L (21-72); AST 15 U/L (17-59); Albumin 3.2 g/dL (3.5-5.0); Alkaline Phosphatase 165 U/L (38-126); Amylase 137 U/L (30-110); Anion Gap 12 mmol/L; Blood Urea Nitrogen 9 mg/dL (9-20); Calcium 8.8 mg/dL (8.4-10.2); Carbon Dioxide 27 mmol/L (22-30); Chloride 96 mmol/L (98-107); Glucose 94 mg/dL (74-99); Lipase 1416 U/L (23-300); Potassium 3.9 mmol/L (3.5-5.1); Sodium 135 mmol/L (137-145); Total Bilirubin 0.4 mg/dL (0.2-1.3); Total Protein 5.9 g/dL (6.3-8.2)
--- NOTE | 2017-11-07 15:43 | XR ---
EXAMINATION TYPE: XR abdomen acute w cxr DATE OF EXAM: 11/07/2017 COMPARISON: 11/02/2017 HISTORY: 47-year-old male with abdominal pain TECHNIQUE: 3 views FINDINGS: Frontal view of the chest shows normal heart size, aorta, and pulmonary vasculature. Lungs and pleura l spaces are clear. Spinal stimulator array centered along the mid thoracic spinal canal. Generator d evice projects over the left SI joint. Posterior fusion hardware lower lumbar spine. No evidence for free intraperitoneal air. No dilated small bowel or air-fluid levels. Scattered air a nd stool within the colon with air extending distally to the rectum. Mild stool burden. Cystectomy clips. No suspicious calcification seen. Left-sided pelvic phleboliths. IMPRESSION: 1. No acute cardiopulmonary process. 2. No evidence for free air or bowel obstruction. Mild stool burden.
[2017-11-07] MEDS ORDERED: METOCLOPRAMIDE 5 MG/ML 2 ML VIAL IVP STA (16:31)
[2017-11-07] MEDS ORDERED: HYDROcodone/APAP 5-325MG 1 EACH TAB PO PRN (16:32)
[2017-11-07] MEDS ORDERED: ONDANSETRON 4 MG/2 ML VIAL IVP PRN (16:32)
[2017-11-07] MEDS ORDERED: NALOXONE 0.4 MG/ML 1 ML VIAL IV PRN (16:32)
[2017-11-07] MEDS ORDERED: MORPHINE SULFATE 4 MG/ML SYRINGE IV PRN (16:32)
[2017-11-07] MEDS ORDERED: ACETAMINOPHEN TAB 325 MG TAB PO PRN (16:32)
[2017-11-07] MEDS ORDERED: ALBUTEROL NEBULIZED 2.5 MG/3 ML INHALATION PRN (16:35)
[2017-11-07] MEDS ORDERED: LIPASE 5,000/PROTEASE 17,000/AMYLASE 27,0000 PO SCH (17:30)
[2017-11-07 19:26] VITALS: RESP 16
[2017-11-07] MEDS ORDERED: MAG HYDROX/AL HYDROX/SIMETH 30 ML CUP PO ONE (20:15)
[2017-11-07] MEDS: GABAPENTIN 400 MG CAP PO SCH (20:25)
[2017-11-07] MEDS: cloNIDine HCL 0.1 MG TAB PO SCH (20:25)
[2017-11-07] MEDS: DIAZEPAM 5 MG TAB PO SCH (20:25)
[2017-11-07] MEDS ORDERED: traZODone HCL 50 MG TAB PO SCH (21:00)
[2017-11-07] MEDS ORDERED: ATORVASTATIN 10 MG TAB PO SCH (21:00)
[2017-11-07] MEDS: Acetaminophen-Codeine 300-30mg TAB PO PRN (21:52)
[2017-11-07] MEDS: ONDANSETRON 4 MG/2 ML VIAL IVP PRN (21:52)
[2017-11-07 22:10] LABS: Appearance,Urine Cloudy (Clear); Bacteria,Urine Occasional /hpf; Bilirubin,Urine Negative (Negative); Blood,Urine Trace (Negative); Budding Yeast,Urine Few /hpf; Color,Urine Yellow; Glucose,Urine (UA) Negative (Negative); Ketones,Urine 2+ (Negative); Leukocyte Esterase,Urine Large (Negative); Mucus,Urine Occasional /hpf; Nitrite,Urine Negative (Negative); Protein,Urine Trace (Negative); RBC,Urine 3 /hpf (0-5); Specific Gravity,Urine 1.013 (1.001-1.035); WBC,Urine 82 /hpf (0-5)
[2017-11-08] MEDS: Acetaminophen-Codeine 300-30mg TAB PO PRN ×2 (03:08→08:24)
[2017-11-08 06:24] VITALS: BP 127/67; PULSE 73; TEMP 97.9
[2017-11-08] MEDS: GABAPENTIN 400 MG CAP PO SCH (08:14)
[2017-11-08] MEDS: cloNIDine HCL 0.1 MG TAB PO SCH (08:14)
[2017-11-08 08:16] LABS: Amylase 47 U/L (30-110); Anion Gap 9 mmol/L; Blood Urea Nitrogen 8 mg/dL (9-20); Carbon Dioxide 25 mmol/L (22-30); Chloride 102 mmol/L (98-107); Glucose 82 mg/dL (74-99); Lipase 143 U/L (23-300); Potassium 3.2 mmol/L (3.5-5.1); Sodium 136 mmol/L (137-145)
[2017-11-08] MEDS: CREON 24000 UNIT PO SCH ×2 (08:21→11:59)
[2017-11-08] MEDS: DIAZEPAM 5 MG TAB PO SCH (08:24)
[2017-11-08] MEDS: ONDANSETRON 4 MG/2 ML VIAL IVP PRN (08:25)
[2017-11-08] MEDS ORDERED: TAMSULOSIN 0.4 MG CAP.ER.24H PO SCH (09:00)
[2017-11-08] MEDS ORDERED: DULoxetine HCL 30 MG CAPSULE.DR PO SCH (09:00)
[2017-11-08] MEDS ORDERED: PANTOPRAZOLE 40 MG/10 ML VIAL IV SCH (09:00)
[2017-11-08] MEDS ORDERED: buPROPion XL 150 MG TAB.ER.24H PO SCH (09:00)
[2017-11-08] MEDS ORDERED: MAGNESIUM OXIDE 400 MG TAB PO SCH (09:00)
[2017-11-08] MEDS ORDERED: ENOXAPARIN 40 MG/0.4 ML SYRINGE SQ SCH (09:00)
--- NOTE | 2017-11-08 11:20 | P.CONS ---
History of Present Illness - Reason for Consult Consult date: 11/08/17 Chronic relapsing alcohol pancreatitis Requesting physician: Kelvin Trejo - History of Present Illness 47-year-old male multiple readmissions over the last month and year secondary to chronic relapsing alcohol pancreatitis. Seen in GI office this past Sunday at that time was feeling well. Admitted last night with recurrent upper abdominal pain. Status post EGD October 27 with findings of duodenitis no evidence of peptic ulcer disease. CT abdomen 10/25 no evidence of pancreatic pseudocyst. Pain management outpatient referral was advised previous admissions. Last consumption of alcohol Memorial weekend. Admission white count 10.7 Hemoglobin 12.3. BUN 9. Creatinine 0.5. Total bilirubin 0.4. AST 15. ALT 27. AP 165. Amylase 137. Lipase 1416. Lipase normalized this morning 143. Amylase 47. Abdominal pain improved requesting diet. Afebrile. Review of Systems Constitutional: Denies fever, chills, sweats, weight gain, or loss. HEENT: Negative for migraines, blurred vision or loss, earaches, drainage, tinnitus, oral mucosal lesions, dysphagia, or odynophagia. Cardiac: Negative for chest pain, arrhythmias, or palpitation. Respiratory: Negative for shortness of breath, hemoptysis, cough, or sputum production. Gastrointestinal: See HPI for pertinent findings. Genitourinary: Negative for hematuria, urgency, frequency, polyuria, dysuria, or penile discharge. Musculoskeletal: Negative for muscle aches, swelling, arthritis, and arthralgias. Neurologic: Negative for stroke or TIA. Endocrine: Negative for thyroid problems. Skin: Negative for rash or itching. Psychiatric: Negative history for depression and anxiety Past Medical History Past Medical History: GERD/Reflux, GI Bleed, Hyperlipidemia, Liver Disease, Pneumonia, Prostate Disorder Additional Past Medical History / Comment(s): ETOH ABUSE(quit 2018)-RECURRANT PANCREATITIS, ALCOHOLIC HEPATITIS, NEUROPATHY BILATERAL FEET SINCE BACK SURGERY , hx of CHRONIC URINARY RETENTION DUE TO BACK PROBLEMS-SELF CATHS, CHRONIC LOW BACK PAIN (HAS STIMULATOR THAT PT STATES DOES NOT WORK), HEMATEMESIS, CHRONIC LOOSE STOOLS. History of Any Multi-Drug Resistant Organisms: None Reported Past Surgical History: Back Surgery, Cholecystectomy, Orthopedic Surgery Additional Past Surgical History / Comment(s): EGDS, colonoscopy, bronchoscopy, BACK surgeries with TITANIUM PLATES MILTON and CAGES, KIDNEY STONES removed per pt, SPINAL CORD STIMULATOR, ISMAEL KNEE ARTHROSCOPIES, PINKY FINGER RT HAND REATTATCHED Past Anesthesia/Blood Transfusion Reactions: No Reported Reaction Past Psychological History: Anxiety, Depression Additional Psychological History / Comment(s): PT LIVES AT HOME WITH in a 2 story home that has 3 porch steps/7 steps to 2nd floor.. 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 NO SERVICE.. occasionally uses either cane, walker or w/c also has shower chair and raised toilet seat. He does not drive, his can drive. Smoking Status: Current every day smoker Past Alcohol Use History: Abuse, Heavy Additional Past Alcohol Use History / Comment(s): Smokes 2 packs per day; hx alcoholic stated quit this year(2018) Past Drug Use History: Marijuana Additional Drug Use History / Comment(s): Patient reports that he has not used Marijuana in over 12 months. - Past Family History Father Family Medical History: Diabetes Mellitus Additional Family Medical History / Comment(s): Mother Family Medical History: Dementia, Hyperlipidemia, Hypertension Additional Family Medical History / Comment(s): Mother is living. Medications and Allergies Home Medications Medication Instructions Recorded Confirmed Type Folic Acid 1 mg PO DAILY #30 tablet 07/15/15 11/07/17 Rx Atorvastatin [Lipitor] 10 mg PO HS 09/27/15 11/07/17 History Albuterol Inhaler [Ventolin Hfa 2 puff INHALATION RT-Q4H PRN 03/01/17 11/07/17 History Inhaler] traZODone HCL 50 mg PO HS 04/04/17 11/07/17 History Omeprazole [PriLOSEC] 40 mg PO BID #60 capsule. 05/16/17 11/07/17 Rx Gabapentin [Neurontin] 400 mg PO TID 07/18/17 11/07/17 History cloNIDine HCL [Catapres] 0.1 mg PO TID #30 tab 08/23/17 11/07/17 Rx Acetaminophen-Codeine 300-30mg 1 tab PO TID PRN 09/10/17 11/07/17 History [Tylenol w/codeine #3] DULoxetine HCL [Cymbalta] 60 mg PO DAILY 09/18/17 11/07/17 History Magnesium Oxide [Mag-Ox] 200 mg PO DAILY 09/18/17 11/07/17 History Tamsulosin HCl [Flomax] 0.4 mg PO DAILY 09/18/17 11/07/17 History Diazepam [Valium] 5 mg PO TID 10/20/17 11/07/17 History Lipase/Protease/Amylase [Creon Dr 2 cap PO TID-W/MEALS 10/20/17 11/07/17 History 24,000 Units Capsule] buPROPion XL [Wellbutrin XL] 150 mg PO DAILY 10/20/17 11/07/17 History Allergies Allergy/AdvReac Type Severity Reaction Status Date / Time No Known Allergies Allergy Verified 11/07/17 14:31 Physical Exam Vitals: Vital Signs Temp Pulse Pulse Resp BP BP Pulse Ox 11/08/17 05:55 97.9 F 73 16 127/67 99 11/07/17 22:20 98.1 F 98 16 136/78 99 11/07/17 19:00 98.9 F 96 16 136/83 100 11/07/17 18:42 98.7 F 77 18 141/88 100 11/07/17 17:01 99.2 F 87 18 172/80 99 11/07/17 13:24 98.4 F 100 16 109/77 100 Intake and Output 11/07/17 11/08/17 11/08/17 22:59 06:59 14:59 Output Total 525 Balance -525 Output: Urine 525 Other: Voiding Method Toilet # Voids 1 2 # Emeses 1 Weight 55.338 kg 56.5 kg 56.5 kg General appearance: The patient is alert, oriented, in no acute distress. HET: Head is normocephalic and atraumatic. Pupils are equal and reactive. Oropharynx is clear without lesions. Neck: Supple without lymphadenopathy. Trachea midline. Heart: S1 S2. Regular rate and rhythm. Lungs: No crackles or wheezes are heard. Abdomen: Soft, mild midepigastric upper abdominal tenderness, nondistended with bowel sounds. No peritoneal signs. No palpable organomegaly or masses. Extremities: Normal skin color and turgor. No cyanosis, rash, ulceration, clubbing, or edema. Radial and pedal pulses are 2/4 bilaterally. Neurological: No focal deficits. Strength and sensation are grossly intact. Results CBC & Chem 7: 11/07/17 15:12 11/08/17 07:35 Labs: Abnormal Lab Results - Last 24 Hours (Table) 11/07/17 11/07/17 11/07/17 Range/Units 15:12 15:12 21:40 WBC 10.7 H (3.8-10.6) k/uL RBC 4.09 L (4.30-5.90) m/uL Hgb 12.3 L (13.0-17.5) gm/dL Hct 37.1 L (39.0-53.0) % RDW 16.2 H (11.5-15.5) % Neutrophils # 8.8 H (1.3-7.7) k/uL Sodium 135 L (137-145) mmol/L Potassium (3.5-5.1) mmol/L Chloride 96 L (98-107) mmol/L BUN (9-20) mg/dL Creatinine 0.50 L (0.66-1.25) mg/dL Calcium (8.4-10.2) mg/dL AST 15 L (17-59) U/L Alkaline Phosphatase 165 H (38-126) U/L Total Protein 5.9 L (6.3-8.2) g/dL Albumin 3.2 L (3.5-5.0) g/dL Amylase 137 H (30-110) U/L Lipase 1416 H (23-300) U/L Urine Protein Trace H (Negative) Urine Ketones 2+ H (Negative) Urine Blood Trace H (Negative) Ur Leukocyte Esterase Large H (Negative) Urine WBC 82 H (0-5) /hpf Urine Bacteria Occasional H (None) /hpf Urine Mucus Occasional H (None) /hpf Urine Yeast (Budding) Few H (None) /hpf 11/08/17 Range/Units 07:35 WBC (3.8-10.6) k/uL RBC (4.30-5.90) m/uL Hgb (13.0-17.5) gm/dL Hct (39.0-53.0) % RDW (11.5-15.5) % Neutrophils # (1.3-7.7) k/uL Sodium 136 L (137-145) mmol/L Potassium 3.2 L (3.5-5.1) mmol/L Chloride (98-107) mmol/L BUN 8 L (9-20) mg/dL Creatinine 0.56 L (0.66-1.25) mg/dL Calcium 8.0 L (8.4-10.2) mg/dL AST (17-59) U/L Alkaline Phosphatase (38-126) U/L Total Protein (6.3-8.2) g/dL Albumin (3.5-5.0) g/dL Amylase (30-110) U/L Lipase (23-300) U/L Urine Protein (Negative) Urine Ketones (Negative) Urine Blood (Negative) Ur Leukocyte Esterase (Negative) Urine WBC (0-5) /hpf Urine Bacteria (None) /hpf Urine Mucus (None) /hpf Urine Yeast (Budding) (None) /hpf Assessment and Plan (1) Acute on chronic pancreatitis Current Visit: Yes Status: Acute Code(s): K85.90 - ACUTE PANCREATITIS WITHOUT NECROSIS OR INFECTION, UNSP; K86.1 - OTHER CHRONIC PANCREATITIS SNOMED Code(s): 399777051 (2) Alcohol abuse Current Visit: No Status: Acute Code(s): F10.10 - ALCOHOL ABUSE, UNCOMPLICATED SNOMED Code(s): 63477150 Plan: 1. Low-fat diet. IV fluids. Continue home dose of Creon with meals. Supportive measures. Thank you for this kind referral and the opportunity to participate in the care of your patient. This consultation was discussed with Dr. Martinez. The impression and plan of care have been directed as dictated.
--- NOTE | 2017-11-08 11:51 | P.HPIM ---
History of Present Illness H&P Date: 11/08/17 Chief Complaint: Exacerbation of chronic pancreatitis This is a 47-year-old male who presented to the emergency room with a chief complaint of abdominal pain, nausea, and vomiting. The patient was just discharged home on 10/28/2017. The patient has had numerous hospitalizations this year secondary to pancreatitis. This is the patients 32nd visit to the hospital this year. The patient has a history of pancreatitis secondary to alcohol abuse, gastroesophageal reflux disease, hyperlipidemia, and urinary retention. He has been instructed to straight cath 3-4 times a day at home, but patient states he has only been doing this 1 or 2 times. He has was a history of anxiety and depression. He is a current cigarette smoker and smokes 2 packs per day. The patient states he has not consumed alcohol in 2 months. Patient's is at the bedside and insists that patient has not had any alcohol since and states he only had 2 beers on . Serum alcohol level was negative on this admission, but serum alcohol level was drawn on a recent admission on 10/20/2017 which was positive for alcohol. Serum alcohol at that time was 32. Patient underwent recent EGD revealing mild duodenitis involving the duodenal bulb and second part of the duodenum most likely related to pancreatitis. 2 superficial erosions at the GE junction consistent with LA grade B reflux esophagitis. Laboratory data: WBC 10.7. Hemoglobin 12.3. Platelet count 338. Sodium 135. Potassium 3.9. BUN 9 Creatinine 0560. Glucose 94. AST 17. ALT 31. Alkaline phosphatase 219. Amylase 137. Lipase 1416 which is better than his last admission. A she had been concerned about approximately 8 pound weight loss. I reviewed his weights from the past 2 years and is actually down 09/07/2014 at 68.5 kg to today's weight of 56.5 kg. Of note his weight is increased slightly from yesterday. The patient was admitted to my service. Consultations were placed to GI. Day, the patient is without complaint, his pain is resolved. He relates at all to broccoli cheese soup and a sandwich from a local chain restaurant. Urinalysis was reviewed today and is slightly abnormal. He does not have any active symptoms at this point. This can be reevaluated outpatient. We'll await GI consultation recommendations. Review of Systems All systems: negative Past Medical History Past Medical History: GERD/Reflux, GI Bleed, Hyperlipidemia, Liver Disease, Pneumonia, Prostate Disorder Additional Past Medical History / Comment(s): ETOH ABUSE(quit 2018)-RECURRANT PANCREATITIS, ALCOHOLIC HEPATITIS, NEUROPATHY BILATERAL FEET SINCE BACK SURGERY , hx of CHRONIC URINARY RETENTION DUE TO BACK PROBLEMS-SELF CATHS, CHRONIC LOW BACK PAIN (HAS STIMULATOR THAT PT STATES DOES NOT WORK), HEMATEMESIS, CHRONIC LOOSE STOOLS. History of Any Multi-Drug Resistant Organisms: None Reported Past Surgical History: Back Surgery, Cholecystectomy, Orthopedic Surgery Additional Past Surgical History / Comment(s): EGDS, colonoscopy, bronchoscopy, BACK surgeries with TITANIUM PLATES MILTON and CAGES, KIDNEY STONES removed per pt, SPINAL CORD STIMULATOR, ISMAEL KNEE ARTHROSCOPIES, PINKY FINGER RT HAND REATTATCHED Past Anesthesia/Blood Transfusion Reactions: No Reported Reaction Past Psychological History: Anxiety, Depression Additional Psychological History / Comment(s): PT LIVES AT HOME WITH in a 2 story home that has 3 porch steps/7 steps to 2nd floor.. 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 NO SERVICE.. occasionally uses either cane, walker or w/c also has shower chair and raised toilet seat. He does not drive, his can drive. Smoking Status: Current every day smoker Past Alcohol Use History: Abuse, Heavy Additional Past Alcohol Use History / Comment(s): Smokes 2 packs per day; hx alcoholic stated quit this year(2018) Past Drug Use History: Marijuana Additional Drug Use History / Comment(s): Patient reports that he has not used Marijuana in over 12 months. - Past Family History Father Family Medical History: Diabetes Mellitus Additional Family Medical History / Comment(s): Mother Family Medical History: Dementia, Hyperlipidemia, Hypertension Additional Family Medical History / Comment(s): Mother is living. Medications and Allergies Home Medications Medication Instructions Recorded Confirmed Type Folic Acid 1 mg PO DAILY #30 tablet 07/15/15 11/07/17 Rx Atorvastatin [Lipitor] 10 mg PO HS 09/27/15 11/07/17 History Albuterol Inhaler [Ventolin Hfa 2 puff INHALATION RT-Q4H PRN 03/01/17 11/07/17 History Inhaler] traZODone HCL 50 mg PO HS 04/04/17 11/07/17 History Omeprazole [PriLOSEC] 40 mg PO BID #60 capsule. 05/16/17 11/07/17 Rx Gabapentin [Neurontin] 400 mg PO TID 07/18/17 11/07/17 History cloNIDine HCL [Catapres] 0.1 mg PO TID #30 tab 08/23/17 11/07/17 Rx Acetaminophen-Codeine 300-30mg 1 tab PO TID PRN 09/10/17 11/07/17 History [Tylenol w/codeine #3] DULoxetine HCL [Cymbalta] 60 mg PO DAILY 09/18/17 11/07/17 History Magnesium Oxide [Mag-Ox] 200 mg PO DAILY 09/18/17 11/07/17 History Tamsulosin HCl [Flomax] 0.4 mg PO DAILY 09/18/17 11/07/17 History Diazepam [Valium] 5 mg PO TID 10/20/17 11/07/17 History Lipase/Protease/Amylase [Creon Dr 2 cap PO TID-W/MEALS 10/20/17 11/07/17 History 24,000 Units Capsule] buPROPion XL [Wellbutrin XL] 150 mg PO DAILY 10/20/17 11/07/17 History Allergies Allergy/AdvReac Type Severity Reaction Status Date / Time No Known Allergies Allergy Verified 11/07/17 14:31 Physical Exam Vitals: Vital Signs Temp Pulse Pulse Resp BP BP Pulse Ox 11/08/17 05:55 97.9 F 73 16 127/67 99 11/07/17 22:20 98.1 F 98 16 136/78 99 11/07/17 19:00 98.9 F 96 16 136/83 100 11/07/17 18:42 98.7 F 77 18 141/88 100 11/07/17 17:01 99.2 F 87 18 172/80 99 11/07/17 13:24 98.4 F 100 16 109/77 100 Intake and Output 11/07/17 11/08/17 11/08/17 22:59 06:59 14:59 Output Total 525 Balance -525 Output: Urine 525 Other: Voiding Method Toilet # Voids 1 2 # Emeses 1 Weight 55.338 kg 56.5 kg 56.5 kg GENERAL: Well-appearing, thin and in no acute distress. HEAD: Atraumatic, normocephalic. EYES: Pupils equal round and reactive to light, extraocular movements intact, sclera anicteric, conjunctiva are normal. ENT:nares patent, oropharynx clear without exudates. Moist mucous membranes. NECK: Normal range of motion, supple without lymphadenopathy or JVD, no thyromegaly LUNGS: Breath sounds clear to auscultation bilaterally and equal. No wheezes rales or rhonchi. HEART: Regular rate and rhythm without murmurs, rubs or gallops.S1S2 Normal ABDOMEN: Soft, nontender, normoactive bowel sounds. No guarding, no rebound. No masses appreciated. EXTREMITIES: Normal range of motion, no pitting or edema. No clubbing or cyanosis. NEUROLOGICAL: Cranial nerves II through XII grossly intact. Normal speech, normal gait. PSYCH: Normal mood, normal affect. SKIN: Warm, Dry, normal turgor, no rashes or lesions noted. Results CBC & Chem 7: 11/07/17 15:12 11/08/17 07:35 Labs: Abnormal Lab Results - Last 24 Hours (Table) 11/07/17 11/07/17 11/07/17 Range/Units 15:12 15:12 21:40 WBC 10.7 H (3.8-10.6) k/uL RBC 4.09 L (4.30-5.90) m/uL Hgb 12.3 L (13.0-17.5) gm/dL Hct 37.1 L (39.0-53.0) % RDW 16.2 H (11.5-15.5) % Neutrophils # 8.8 H (1.3-7.7) k/uL Sodium 135 L (137-145) mmol/L Potassium (3.5-5.1) mmol/L Chloride 96 L (98-107) mmol/L BUN (9-20) mg/dL Creatinine 0.50 L (0.66-1.25) mg/dL Calcium (8.4-10.2) mg/dL AST 15 L (17-59) U/L Alkaline Phosphatase 165 H (38-126) U/L Total Protein 5.9 L (6.3-8.2) g/dL Albumin 3.2 L (3.5-5.0) g/dL Amylase 137 H (30-110) U/L Lipase 1416 H (23-300) U/L Urine Protein Trace H (Negative) Urine Ketones 2+ H (Negative) Urine Blood Trace H (Negative) Ur Leukocyte Esterase Large H (Negative) Urine WBC 82 H (0-5) /hpf Urine Bacteria Occasional H (None) /hpf Urine Mucus Occasional H (None) /hpf Urine Yeast (Budding) Few H (None) /hpf 11/08/17 Range/Units 07:35 WBC (3.8-10.6) k/uL RBC (4.30-5.90) m/uL Hgb (13.0-17.5) gm/dL Hct (39.0-53.0) % RDW (11.5-15.5) % Neutrophils # (1.3-7.7) k/uL Sodium 136 L (137-145) mmol/L Potassium 3.2 L (3.5-5.1) mmol/L Chloride (98-107) mmol/L BUN 8 L (9-20) mg/dL Creatinine 0.56 L (0.66-1.25) mg/dL Calcium 8.0 L (8.4-10.2) mg/dL AST (17-59) U/L Alkaline Phosphatase (38-126) U/L Total Protein (6.3-8.2) g/dL Albumin (3.5-5.0) g/dL Amylase (30-110) U/L Lipase (23-300) U/L Urine Protein (Negative) Urine Ketones (Negative) Urine Blood (Negative) Ur Leukocyte Esterase (Negative) Urine WBC (0-5) /hpf Urine Bacteria (None) /hpf Urine Mucus (None) /hpf Urine Yeast (Budding) (None) /hpf Thrombosis Risk Factor Assmnt - DVT/VTE Prophylaxis DVT/VTE Prophylaxis: Low risk, early ambulation encouraged - Choose All That Apply Any of the Below Risk Factors Present?: Yes Each Factor Represents 1 point: Age 41-60 years Thrombosis Risk Factor Assessment Total Risk Factor Score: 1 Thrombosis Risk Factor Assessment Level: Low Risk Assessment and Plan Plan: ASSESSMENT: Acute on chronic alcoholic pancreatitis History of alcohol abuse, patient continues to drink, patient states he has not drank alcohol in 2 months, however serum alcohol was 0.32 on 10/20/2017, negative on 11/07/2017 Recent EGD revealing mild duodenitis involving the duodenal bulb and second part of the duodenum most likely related to pancreatitis. 2 superficial erosions at the GE junction consistent with LA grade B reflux esophagitis. Chronic left hydroureteronephrosis secondary to urinary reflux from bladder into left ureter Urinary retention secondary to atonic bladder, patient instructed to self cath frequently Multiple hospitalizations secondary to abdominal pain and pancreatitis, patient has 32 visits to the hospital in 2018 Chronic low back pain Generalized anxiety disorder Depression Nicotine dependence, patient is a current cigarette smoker, patient reports to packs per day PLAN: GI on consult. Appreciate recommendations and input Continue IV fluids Advance diet as tolerated Alcohol cessation was advised but patient continues to report he is not drinking straight cath times daily Home meds as appropriate Monitor labs. Repeat daily. GI prophylaxis: Protonix 40 mg PO Daily DVT prophylaxis: SCDs to bilateral lower extremities Monitor vital signs and address as appropriate Discharge planning: Patient to return home when stable Further recommendations pending patient's course
--- NOTE | 2017-11-08 11:55 | P.DS ---
Providers Date of admission: 11/07/17 16:32 Expected date of discharge: 11/08/17 Attending physician: Carrillo Leo Consults: 11/07/17 16:33 Consult Physician Routine Consulting Provider: Consuelo Kellogg Consult Reason/Comments: abd pain, nausea, vomiting, pancreatitis Do you want consulting provider notified?: Yes Primary care physician: [facility] Course: This is a 47-year-old male who presented to the emergency room with a chief complaint of abdominal pain, nausea, and vomiting. The patient was just discharged home on 10/28/2017. The patient has had numerous hospitalizations this year secondary to pancreatitis. This is the patients 32nd visit to the hospital this year. The patient has a history of pancreatitis secondary to alcohol abuse, gastroesophageal reflux disease, hyperlipidemia, and urinary retention. He has been instructed to straight cath 3-4 times a day at home, but patient states he has only been doing this 1 or 2 times. He has was a history of anxiety and depression. He is a current cigarette smoker and smokes 2 packs per day. The patient states he has not consumed alcohol in 2 months. Patient's is at the bedside and insists that patient has not had any alcohol since and states he only had 2 beers on . Serum alcohol level was negative on this admission, but serum alcohol level was drawn on a recent admission on 10/20/2017 which was positive for alcohol. Serum alcohol at that time was 32. Patient underwent recent EGD revealing mild duodenitis involving the duodenal bulb and second part of the duodenum most likely related to pancreatitis. 2 superficial erosions at the GE junction consistent with LA grade B reflux esophagitis. Laboratory data: WBC 10.7. Hemoglobin 12.3. Platelet count 338. Sodium 135. Potassium 3.9. BUN 9 Creatinine 0560. Glucose 94. AST 17. ALT 31. Alkaline phosphatase 219. Amylase 137. Lipase 1416 which is better than his last admission. A she had been concerned about approximately 8 pound weight loss. I reviewed his weights from the past 2 years and is actually down 09/07/2014 at 68.5 kg to today's weight of 56.5 kg. Of note his weight is increased slightly from yesterday. The patient was admitted to my service. Consultations were placed to GI. Day, the patient is without complaint, his pain is resolved. He relates at all to broccoli cheese soup and a sandwich from a local chain restaurant. Urinalysis was reviewed today and is slightly abnormal. He does not have any active symptoms at this point. This can be reevaluated outpatient. We'll await GI consultation recommendations. He was currently pain-free when I saw him in the morning. His diet was advanced tolerated. He was cleared by GI. He was then sent home. We'll plan on him my rechecking his urine and notifying us should it develop any symptoms. He'll continue his straight caths 4 times a day. I'll ask him to monitor his weight daily. Final diagnosis Acute on chronic alcoholic pancreatitis History of alcohol abuse, patient continues to drink, patient states he has not drank alcohol in 2 months, however serum alcohol was 0.32 on 10/20/2017, negative on 11/07/2017 Recent EGD revealing mild duodenitis involving the duodenal bulb and second part of the duodenum most likely related to pancreatitis. 2 superficial erosions at the GE junction consistent with LA grade B reflux esophagitis. Chronic left hydroureteronephrosis secondary to urinary reflux from bladder into left ureter Urinary retention secondary to atonic bladder, patient instructed to self cath frequently Multiple hospitalizations secondary to abdominal pain and pancreatitis, patient has 32 visits to the hospital in 2018 Chronic low back pain Generalized anxiety disorder Depression Nicotine dependence, patient is a current cigarette smoker, patient reports to packs per day Patient Condition at Discharge: Fair Plan - Discharge Summary Discharge Rx Participant: No New Discharge Prescriptions: Continue Folic Acid 1 mg PO DAILY #30 tablet Atorvastatin [Lipitor] 10 mg PO HS Albuterol Inhaler [Ventolin Hfa Inhaler] 2 puff INHALATION RT-Q4H PRN PRN Reason: Shortness Of Breath traZODone HCL 50 mg PO HS Omeprazole [PriLOSEC] 40 mg PO BID #60 capsule. Gabapentin [Neurontin] 400 mg PO TID cloNIDine HCL [Catapres] 0.1 mg PO TID #30 tab Acetaminophen-Codeine 300-30mg [Tylenol w/codeine #3] 1 tab PO TID PRN PRN Reason: pain DULoxetine HCL [Cymbalta] 60 mg PO DAILY Magnesium Oxide [Mag-Ox] 200 mg PO DAILY Tamsulosin HCl [Flomax] 0.4 mg PO DAILY buPROPion XL [Wellbutrin XL] 150 mg PO DAILY Diazepam [Valium] 5 mg PO TID Lipase/Protease/Amylase [Rebel Belcher 24,000 Units Capsule] 2 cap PO TID-W/MEALS Discharge Medication List Folic Acid 1 mg PO DAILY #30 tablet 07/15/15 [Rx] Atorvastatin [Lipitor] 10 mg PO HS 09/27/15 [History] Albuterol Inhaler [Ventolin Hfa Inhaler] 2 puff INHALATION RT-Q4H PRN 03/01/17 [ History] traZODone HCL 50 mg PO HS 04/04/17 [History] Omeprazole [PriLOSEC] 40 mg PO BID #60 capsule. 05/16/17 [Rx] Gabapentin [Neurontin] 400 mg PO TID 07/18/17 [History] cloNIDine HCL [Catapres] 0.1 mg PO TID #30 tab 08/23/17 [Rx] Acetaminophen-Codeine 300-30mg [Tylenol w/codeine #3] 1 tab PO TID PRN 09/10/17 [History] DULoxetine HCL [Cymbalta] 60 mg PO DAILY 09/18/17 [History] Magnesium Oxide [Mag-Ox] 200 mg PO DAILY 09/18/17 [History] Tamsulosin HCl [Flomax] 0.4 mg PO DAILY 09/18/17 [History] Diazepam [Valium] 5 mg PO TID 10/20/17 [History] Lipase/Protease/Amylase [Rebel Belcher 24,000 Units Capsule] 2 cap PO TID-W/MEALS 07/08 [History] buPROPion XL [Wellbutrin XL] 150 mg PO DAILY 10/20/17 [History] Follow up Appointment(s)/Referral(s): Carrillo Leo Jr, DO [Primary Care Provider] - 1-2 days Discharge Disposition: HOME SELF-CARE
[2017-11-08] MEDS ORDERED: FOLIC ACID 1 MG TAB PO SCH (12:00)
== END 2017-11-08 13:49 | disposition home or self-care (01) | DRG 439 ==
LOC: EC 12:34 → 4MS4W 16:32
PROVIDERS: ADMIT Family Medicine; ATTEND Family Medicine
DX: K85.90 Acute pancreatitis without necrosis or infection, unspecified (principal); E87.1 Hypo-osmolality and hyponatremia; N13.30 Unspecified hydronephrosis; K86.0 Alcohol-induced chronic pancreatitis; D64.9 Anemia, unspecified; E78.5 Hyperlipidemia, unspecified; E87.8 Other disorders of electrolyte and fluid balance, not elsewhere classified; F10.10 Alcohol abuse, uncomplicated; F17.210 Nicotine dependence, cigarettes, uncomplicated; F32.9 Major depressive disorder, single episode, unspecified; F41.1 Generalized anxiety disorder; G89.29 Other chronic pain; K21.0 Gastro-esophageal reflux disease with esophagitis; N31.2 Flaccid neuropathic bladder, not elsewhere classified; Z79.899 Other long term (current) drug therapy; Z82.49 Family history of ischemic heart disease and other diseases of the circulatory system; Z83.3 Family history of diabetes mellitus; Z87.442 Personal history of urinary calculi; K29.80 Duodenitis without bleeding; Z71.41 Alcohol abuse counseling and surveillance of alcoholic; F12.11 Cannabis abuse, in remission; Z87.01 Personal history of pneumonia (recurrent); G62.9 Polyneuropathy, unspecified
CPT/HCPCS: 36415; 74022; 80048; 80053; 80320; 81001; 82150; 83690; 85025; 96361; 96374; 96375; 96376; 99285

== ENCOUNTER 2017-11-12 18:23 | Inpatient (IN) | payer MEDICARE, OTHER ==
[2017-11-12 19:41] LABS: Anisocytosis Slight; Basophils % (A) 0 %; Eosinophils # (A) 0.1 k/uL (0-0.7); Eosinophils % (A) 1 %; HCT 38.8 % (39.0-53.0); HGB 12.4 gm/dL (13.0-17.5); Lymphocytes # (A) 1.4 k/uL (1.0-4.8); Lymphocytes % (A) 12 %; MCH 29.5 pg (25.0-35.0); MCV 92.1 fL (80.0-100.0); Mean Platelet Volume 7.1; Monocytes # (A) 0.6 k/uL (0-1.0); Monocytes % (A) 5 %; Neutrophils # (A) 9.1 k/uL (1.3-7.7); Neutrophils % (A) 81 %; Platelet Count 416 k/uL (150-450); RBC 4.21 m/uL (4.30-5.90); RDW 16.4 % (11.5-15.5); WBC 11.2 k/uL (3.8-10.6)
[2017-11-12 19:50] LABS: ALT 26 U/L (21-72); AST 17 U/L (17-59); Albumin 3.3 g/dL (3.5-5.0); Alkaline Phosphatase 133 U/L (38-126); Amylase 157 U/L (30-110); Anion Gap 9 mmol/L; Blood Urea Nitrogen 9 mg/dL (9-20); Calcium 9.2 mg/dL (8.4-10.2); Carbon Dioxide 27 mmol/L (22-30); Chloride 103 mmol/L (98-107); Glucose 109 mg/dL (74-99); Lipase 1943 U/L (23-300); Sodium 139 mmol/L (137-145); Total Bilirubin 0.4 mg/dL (0.2-1.3); Total Protein 5.9 g/dL (6.3-8.2)
[2017-11-12] MEDS ORDERED: LORazepam 2 MG/ML INJ IV PRN ×3 (22:42)
[2017-11-12] MEDS ORDERED: THIAMINE 100 MG/ML 2 ML VIAL IM STA (22:42)
[2017-11-12] MEDS ORDERED: PANTOPRAZOLE 40 MG/10 ML VIAL IVP STA (22:44)
[2017-11-12] MEDS ORDERED: diphenhydrAMINE 50 MG/ML 1 ML VIAL IVP STA (22:44)
[2017-11-12] MEDS ORDERED: MORPHINE SULFATE 2 MG/ML SYRINGE IVP STA (22:44)
[2017-11-12] MEDS ORDERED: ONDANSETRON 4 MG/2 ML VIAL IVP STA (22:44)
--- NOTE | 2017-11-12 22:46 | ED ---
General Adult HPI - General Chief complaint: Abdominal Pain Stated complaint: ABDOMINAL PAIN, PANCREATITIS Time Seen by Provider: 11/12/17 21:33 Source: patient, RN notes reviewed, old records reviewed Mode of arrival: wheelchair Limitations: no limitations - History of Present Illness Initial comments: This is a 47-year-old male the ER for evaluation. This patient's today for evaluation of abdominal pain severe abdominal pain severe epigastric bowel pain. Patient states he feels just like his prior pancreatitis. He does admit to drinking beers yesterday states he's been trying not to drink. But he does admit to drinking beer yesterday no fevers no cough or congestion. Positive nausea positive vomiting patient feels very dehydrated and weak - Related Data Home Medications Medication Instructions Recorded Confirmed Atorvastatin [Lipitor] 10 mg PO HS 09/27/15 11/12/17 Albuterol Inhaler [Ventolin Hfa 2 puff INHALATION RT-Q4H PRN 03/01/17 11/12/17 Inhaler] traZODone HCL 50 mg PO HS 04/04/17 11/12/17 Gabapentin [Neurontin] 400 mg PO TID 07/18/17 11/12/17 Acetaminophen-Codeine 300-30mg 1 tab PO TID PRN 09/10/17 11/12/17 [Tylenol w/codeine #3] DULoxetine HCL [Cymbalta] 60 mg PO DAILY 09/18/17 11/12/17 Magnesium Oxide [Mag-Ox] 200 mg PO DAILY 09/18/17 11/12/17 Tamsulosin HCl [Flomax] 0.4 mg PO DAILY 09/18/17 11/12/17 Diazepam [Valium] 5 mg PO TID 10/20/17 11/12/17 Lipase/Protease/Amylase [Rebel Belcher 2 cap PO TID-W/MEALS 10/20/17 11/12/17 24,000 Units Capsule] buPROPion XL [Wellbutrin XL] 150 mg PO DAILY 10/20/17 11/12/17 Previous Rx's Medication Instructions Recorded Folic Acid 1 mg PO DAILY #30 tablet 07/15/15 Omeprazole [PriLOSEC] 40 mg PO BID #60 capsule. 05/16/17 cloNIDine HCL [Catapres] 0.1 mg PO TID #30 tab 04/05/18 Allergies Allergy/AdvReac Type Severity Reaction Status Date / Time No Known Allergies Allergy Verified 11/12/17 22:19 Review of Systems ROS Statement: Those systems with pertinent positive or pertinent negative responses have been documented in the HPI. ROS Other: All systems not noted in ROS Statement are negative. Past Medical History Past Medical History: GERD/Reflux, GI Bleed, Hyperlipidemia, Liver Disease, Pneumonia, Prostate Disorder Additional Past Medical History / Comment(s): ETOH ABUSE(quit 2018)-RECURRANT PANCREATITIS, ALCOHOLIC HEPATITIS, NEUROPATHY BILATERAL FEET SINCE BACK SURGERY , hx of CHRONIC URINARY RETENTION DUE TO BACK PROBLEMS-SELF CATHS, CHRONIC LOW BACK PAIN (HAS STIMULATOR THAT PT STATES DOES NOT WORK), HEMATEMESIS, CHRONIC LOOSE STOOLS. History of Any Multi-Drug Resistant Organisms: None Reported Past Surgical History: Back Surgery, Cholecystectomy, Orthopedic Surgery Additional Past Surgical History / Comment(s): EGDS, colonoscopy, bronchoscopy, BACK surgeries with TITANIUM PLATES MILTON and CAGES, KIDNEY STONES removed per pt, SPINAL CORD STIMULATOR, ISMAEL KNEE ARTHROSCOPIES, PINKY FINGER RT HAND REATTATCHED Past Anesthesia/Blood Transfusion Reactions: No Reported Reaction Past Psychological History: Anxiety, Depression Smoking Status: Current some day smoker Past Alcohol Use History: Abuse, Heavy Past Drug Use History: Marijuana - Past Family History Father Family Medical History: Diabetes Mellitus Additional Family Medical History / Comment(s): Mother Family Medical History: Dementia, Hyperlipidemia, Hypertension Additional Family Medical History / Comment(s): Mother is living. General Exam Limitations: no limitations General appearance: alert, in no apparent distress Head exam: Present: atraumatic, normocephalic, normal inspection Eye exam: Present: normal appearance, PERRL, EOMI. Absent: scleral icterus, conjunctival injection, periorbital swelling ENT exam: Present: normal exam, mucous membranes moist Neck exam: Present: normal inspection. Absent: tenderness, meningismus, lymphadenopathy Respiratory exam: Present: normal lung sounds bilaterally. Absent: respiratory distress, wheezes, rales, rhonchi, stridor Cardiovascular Exam: Present: regular rate, normal rhythm, normal heart sounds. Absent: systolic murmur, diastolic murmur, rubs, gallop, clicks GI/Abdominal exam: Present: soft, tenderness (Epigastric), normal bowel sounds. Absent: guarding, rebound, rigid Extremities exam: Present: normal inspection, full ROM, normal capillary refill. Absent: tenderness, pedal edema, joint swelling, calf tenderness Back exam: Present: normal inspection Neurological exam: Present: alert, oriented X3, CN II-XII intact Psychiatric exam: Present: normal affect, normal mood Skin exam: Present: warm, dry, intact, normal color. Absent: rash Course Vital Signs 11/12/17 18:44 Temperature 99 F Pulse Rate 85 Respiratory 18 Rate Blood Pressure 117/80 O2 Sat by Pulse 98 Oximetry - Reevaluation(s) Reevaluation #1: 11/12/17 22:45 Medical records thoroughly reviewed Medical Decision Making - Medical Decision Making Plan I male the ER for evaluation positive bowel pain positive pancreatitis. Patient be admitted for nothing by mouth IV hydration - Lab Data Result diagrams: 11/12/17 19:30 11/12/17 19:30 Lab Results 11/12/17 11/12/17 Range/Units 19:30 19:30 WBC 11.2 H (3.8-10.6) k/uL RBC 4.21 L (4.30-5.90) m/uL Hgb 12.4 L (13.0-17.5) gm/dL Hct 38.8 L (39.0-53.0) % MCV 92.1 (80.0-100.0) fL MCH 29.5 (25.0-35.0) pg MCHC 32.0 (31.0-37.0) g/dL RDW 16.4 H (11.5-15.5) % Plt Count 416 (150-450) k/uL Neutrophils % 81 % Lymphocytes % 12 % Monocytes % 5 % Eosinophils % 1 % Basophils % 0 % Neutrophils # 9.1 H (1.3-7.7) k/uL Lymphocytes # 1.4 (1.0-4.8) k/uL Monocytes # 0.6 (0-1.0) k/uL Eosinophils # 0.1 (0-0.7) k/uL Basophils # 0.0 (0-0.2) k/uL Anisocytosis Slight Sodium 139 (137-145) mmol/L Potassium 4.0 (3.5-5.1) mmol/L Chloride 103 (98-107) mmol/L Carbon Dioxide 27 (22-30) mmol/L Anion Gap 9 mmol/L BUN 9 (9-20) mg/dL Creatinine 0.60 L (0.66-1.25) mg/dL Est GFR (CKD-EPI)AfAm >90 (>60 ml/min/1.73 sqM) Est GFR (CKD-EPI)NonAf >90 (>60 ml/min/1.73 sqM) Glucose 109 H (74-99) mg/dL Calcium 9.2 (8.4-10.2) mg/dL Total Bilirubin 0.4 (0.2-1.3) mg/dL AST 17 (17-59) U/L ALT 26 (21-72) U/L Alkaline Phosphatase 133 H (38-126) U/L Total Protein 5.9 L (6.3-8.2) g/dL Albumin 3.3 L (3.5-5.0) g/dL Amylase 157 H (30-110) U/L Lipase 1943 H (23-300) U/L Disposition Clinical Impression: Chronic pancreatitis, Transaminitis, Abdominal pain, Nausea & vomiting, Acute on chronic pancreatitis, Alcohol abuse Disposition: ADMITTED IP TO THIS [facility] Condition: Good Is patient prescribed a controlled substance at d/c from ED?: No Referrals: Carrillo eLo Jr, DO [Primary Care Provider] - 1-2 days
[2017-11-13] MEDS ORDERED: SODIUM CHLORIDE 0.9% 1,000 ML IV ONE (00:18)
[2017-11-13] MEDS: SODIUM CHLORIDE 0.9% 1,000 ML IV SCH ×4 (01:57→20:49)
[2017-11-13] MEDS: MORPHINE SULFATE 2 MG/ML SYRINGE IVP PRN ×2 (02:49→07:23)
[2017-11-13] MEDS: ONDANSETRON 4 MG/2 ML VIAL IVP PRN ×2 (05:14→16:59)
[2017-11-13] MEDS ORDERED: ALBUTEROL NEBULIZED 2.5 MG/3 ML INHALATION PRN (07:30)
[2017-11-13] MEDS: LIPASE 5,000/PROTEASE 17,000/AMYLASE 27,0000 PO SCH ×3 (07:42→16:08)
[2017-11-13 08:55] VITALS: RESP 16
[2017-11-13] MEDS ORDERED: PANTOPRAZOLE 40 MG/10 ML VIAL IVP SCH (09:00)
[2017-11-13] MEDS: GABAPENTIN 400 MG CAP PO SCH ×3 (09:05→20:50)
[2017-11-13] MEDS: cloNIDine HCL 0.1 MG TAB PO SCH ×3 (09:06→20:50)
[2017-11-13] MEDS: buPROPion XL 150 MG TAB.ER.24H PO SCH (09:06)
[2017-11-13] MEDS: NICOTINE 21MG/24HR PATCH TRANSDERM SCH (09:06)
[2017-11-13] MEDS: DULoxetine HCL 60 MG CAPSULE.DR PO SCH (09:06)
[2017-11-13] MEDS: TAMSULOSIN 0.4 MG CAP.ER.24H PO SCH (09:06)
[2017-11-13] MEDS: DIAZEPAM 5 MG TAB PO SCH ×3 (09:07→20:50)
[2017-11-13 09:39] LABS: ALT 143 U/L (21-72); AST 423 U/L (17-59); Albumin 2.6 g/dL (3.5-5.0); Alkaline Phosphatase 256 U/L (38-126); Amylase 160 U/L (30-110); Anion Gap 7 mmol/L; Blood Urea Nitrogen 10 mg/dL (9-20); Calcium 8.1 mg/dL (8.4-10.2); Carbon Dioxide 24 mmol/L (22-30); Chloride 108 mmol/L (98-107); Glucose 96 mg/dL (74-99); Lipase 1781 U/L (23-300); Potassium 3.7 mmol/L (3.5-5.1); Sodium 139 mmol/L (137-145); Total Bilirubin 1.4 mg/dL (0.2-1.3)
[2017-11-13 09:48] LABS: Anisocytosis Slight; Basophils % (A) 0 %; Eosinophils # (A) 0.1 k/uL (0-0.7); Eosinophils % (A) 1 %; HCT 35.7 % (39.0-53.0); HGB 10.9 gm/dL (13.0-17.5); Hypochromasia Slight; Lymphocytes # (A) 0.7 k/uL (1.0-4.8); Lymphocytes % (A) 9 %; MCH 29.4 pg (25.0-35.0); MCHC 30.6 g/dL (31.0-37.0); Mean Platelet Volume 7.3; Monocytes # (A) 0.6 k/uL (0-1.0); Monocytes % (A) 8 %; Neutrophils # (A) 6.2 k/uL (1.3-7.7); Neutrophils % (A) 82 %; Platelet Count 277 k/uL (150-450); RBC 3.71 m/uL (4.30-5.90); RDW 16.4 % (11.5-15.5); WBC 7.6 k/uL (3.8-10.6)
[2017-11-13] MEDS ORDERED: SODIUM CHLORIDE 0.9% 500 ML IV ONE (10:58)
--- NOTE | 2017-11-13 11:02 | P.HPIM ---
History of Present Illness H&P Date: 11/13/17 Chief Complaint: abdominal pain 47-year-old male who presented to the emergency room with a chief complaint of abdominal pain, nausea, and vomiting. The patient has had numerous hospitalizations this year secondary to pancreatitis. The patient was just discharged from the hospital on 11/08/2017. This is the patients 33rd visit to the hospital this year. The patient has a history of alcohol abuse but over the past few hospitalizations he has denied alcohol use and stated he had not consumed alcohol since memorial day, even though he was positive for ETOH during his admission on 10/20/2017. The patient does admit to alcohol use at this admission. He states he was drinking rum and coke on Sunday and began having abdominal pain and nausea on Sunday. He decided to come to the emergency room yesterday for further evaluation. The patient has a history of pancreatitis secondary to alcohol abuse, gastroesophageal reflux disease, hyperlipidemia, and urinary retention. He has been instructed to straight cath 3-4 times a day at home, but patient states he has only been doing this 1 or 2 times. He has was a history of anxiety and depression. He is a current cigarette smoker and smokes 2 packs per day. In October 2017, patient EGD revealing mild duodenitis involving the duodenal bulb and second part of the duodenum most likely related to pancreatitis. 2 superficial erosions at the GE junction consistent with LA grade B reflux esophagitis. Laboratory results on day of admission: WBC 11.2. Hemoglobin 12.4. Platelet count 416. Sodium 139. Potassium 4.0. BUN 9. Creatinine 0.60. Glucose 109. AST 17. ALT 26. Alkaline phosphatase 133. Amylase 157. Lipase 1943. Repeat laboratory results from this morning: AST 423. ALT 143. Alkaline phosphatase 256. Amylase 160. Lipase 1781. The patient was examined at the bedside. He denies abdominal pain. Denies nausea or vomiting. He states he feels fine now and is wanting to be discharged home soon because he states his anniversary is tomorrow and is supposed to go to [place] with his . Explained to patient that he would not be discharged from the hospital today. Review of Systems Those systems with pertinent positive or pertinent negative responses have been documented in the HPI Past Medical History Past Medical History: GERD/Reflux, GI Bleed, Hyperlipidemia, Liver Disease, Pneumonia, Prostate Disorder Additional Past Medical History / Comment(s): ETOH ABUSE(quit 2018)-RECURRANT PANCREATITIS, ALCOHOLIC HEPATITIS, NEUROPATHY BILATERAL FEET SINCE BACK SURGERY , hx of CHRONIC URINARY RETENTION DUE TO BACK PROBLEMS-SELF CATHS, CHRONIC LOW BACK PAIN (HAS STIMULATOR THAT PT STATES DOES NOT WORK), HEMATEMESIS, CHRONIC LOOSE STOOLS. History of Any Multi-Drug Resistant Organisms: None Reported Past Surgical History: Back Surgery, Cholecystectomy, Orthopedic Surgery Additional Past Surgical History / Comment(s): EGDS, colonoscopy, bronchoscopy, BACK surgeries with TITANIUM PLATES MILTON and CAGES, KIDNEY STONES removed per pt, SPINAL CORD STIMULATOR, ISMAEL KNEE ARTHROSCOPIES, PINKY FINGER RT HAND REATTATCHED Past Anesthesia/Blood Transfusion Reactions: No Reported Reaction Past Psychological History: Anxiety, Depression Additional Psychological History / Comment(s): PT LIVES AT HOME WITH in a 2 story home that has 3 porch steps/7 steps to 2nd floor.. 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 NO SERVICE.. occasionally uses either cane, walker or w/c also has shower chair and raised toilet seat. He does not drive, his can drive. Smoking Status: Current some day smoker Past Alcohol Use History: Abuse, Heavy Additional Past Alcohol Use History / Comment(s): Smokes 2 packs per day; hx alcoholic stated quit this year- states has not had a drink for 2.5 months until yesterday 11/11 Past Drug Use History: Marijuana Additional Drug Use History / Comment(s): Patient reports that he has not used Marijuana in over 12 months. - Past Family History Father Family Medical History: Diabetes Mellitus Additional Family Medical History / Comment(s): Mother Family Medical History: Dementia, Hyperlipidemia, Hypertension Additional Family Medical History / Comment(s): Mother is living. Medications and Allergies Home Medications Medication Instructions Recorded Confirmed Type Folic Acid 1 mg PO DAILY #30 tablet 07/15/15 11/12/17 Rx Atorvastatin [Lipitor] 10 mg PO HS 09/27/15 11/12/17 History Albuterol Inhaler [Ventolin Hfa 2 puff INHALATION RT-Q4H PRN 03/01/17 11/12/17 History Inhaler] traZODone HCL 50 mg PO HS 04/04/17 11/12/17 History Omeprazole [PriLOSEC] 40 mg PO BID #60 capsule. 05/16/17 11/12/17 Rx Gabapentin [Neurontin] 400 mg PO TID 07/18/17 11/12/17 History cloNIDine HCL [Catapres] 0.1 mg PO TID #30 tab 08/23/17 11/12/17 Rx Acetaminophen-Codeine 300-30mg 1 tab PO TID PRN 09/10/17 11/12/17 History [Tylenol w/codeine #3] DULoxetine HCL [Cymbalta] 60 mg PO DAILY 09/18/17 11/12/17 History Magnesium Oxide [Mag-Ox] 200 mg PO DAILY 09/18/17 11/12/17 History Tamsulosin HCl [Flomax] 0.4 mg PO DAILY 09/18/17 11/12/17 History Diazepam [Valium] 5 mg PO TID 10/20/17 11/12/17 History Lipase/Protease/Amylase [[place] 2 cap PO TID-W/MEALS 10/20/17 11/12/17 History 24,000 Units Capsule] buPROPion XL [Wellbutrin XL] 150 mg PO DAILY 10/20/17 11/12/17 History Allergies Allergy/AdvReac Type Severity Reaction Status Date / Time No Known Allergies Allergy Verified 11/12/17 22:19 Physical Exam Vitals: Vital Signs Temp Pulse Pulse Resp BP BP Pulse Ox 11/13/17 07:05 98.4 F 87 16 144/83 99 11/13/17 00:30 98.9 F 101 H 17 122/84 100 11/13/17 00:00 99 F 83 18 144/90 98 11/12/17 18:44 99 F 85 18 117/80 98 Intake and Output 11/12/17 11/13/17 11/13/17 22:59 06:59 14:59 Intake Total 1645 Balance 1645 Intake: Intake, IV Titration 1645 Amount Sodium Chloride 0.9% 1, 675 000 ml @ 150 mls/hr IV . Q6H40M [facility] Rx#:[id number] Sodium Chloride 0.9% 1, 970 000 ml @ 999 mls/hr IV . Q1H1M [facility] Rx#:[id number] Other: Voiding Method Toilet Self-Catheterization Weight 67.132 kg GENERAL: This is a 47-year-old male in no apparent distress at the time of examination. Pleasant and cooperative. HEENT: Head is atraumatic, normocephalic. Pupils are equal, round, and reactive to light. Sclerae anicteric. Conjunctivae are clear. Mucus membranes of the mouth are moist. Neck is supple. RESPIRATORY: Clear to ausculation. No wheezes, rales, or rhonchi. No use of accessory muscles. Patient maintaining oxygen saturation greater than 92%. No chest wall tenderness is noted on palpation or with deep breathing. CARDIOVASCULAR: Regular rate and rhythm. S1 and S2 noted. No systolic or diastolic murmur auscultated. No JVD noted. No S3 or S4 noted. GASTROINTESTINAL: No distention noted. Abdomen soft and round. Normal active bowel sounds auscultated x 4 quadrants. No pain or tenderness noted upon palpation. INTEGUMENTARY: No cyanosis. No jaundice. No rashes noted. No cellulitis noted. EXTREMITIES: 2+ peripheral pulses. No evidence of peripheral edema. No calf tenderness noted. NEUROLOGIC: Cranial nerves II-XII intact. PSYCHIATRIC: Awake, alert, and oriented X 3. Appropriate affect. Results CBC & Chem 7: 11/13/17 09:00 11/13/17 09:00 Labs: Abnormal Lab Results - Last 24 Hours (Table) 11/12/17 11/12/17 11/13/17 Range/Units 19:30 19:30 09:00 WBC 11.2 H (3.8-10.6) k/uL RBC 4.21 L 3.71 L (4.30-5.90) m/uL Hgb 12.4 L 10.9 L (13.0-17.5) gm/dL Hct 38.8 L 35.7 L (39.0-53.0) % MCHC 30.6 L (31.0-37.0) g/dL RDW 16.4 H 16.4 H (11.5-15.5) % Neutrophils # 9.1 H (1.3-7.7) k/uL Lymphocytes # 0.7 L (1.0-4.8) k/uL Chloride (98-107) mmol/L Creatinine 0.60 L (0.66-1.25) mg/dL Glucose 109 H (74-99) mg/dL Calcium (8.4-10.2) mg/dL Total Bilirubin (0.2-1.3) mg/dL AST (17-59) U/L ALT (21-72) U/L Alkaline Phosphatase 133 H (38-126) U/L Total Protein 5.9 L (6.3-8.2) g/dL Albumin 3.3 L (3.5-5.0) g/dL Amylase 157 H (30-110) U/L Lipase 1943 H (23-300) U/L 11/13/17 Range/Units 09:00 WBC (3.8-10.6) k/uL RBC (4.30-5.90) m/uL Hgb (13.0-17.5) gm/dL Hct (39.0-53.0) % MCHC (31.0-37.0) g/dL RDW (11.5-15.5) % Neutrophils # (1.3-7.7) k/uL Lymphocytes # (1.0-4.8) k/uL Chloride 108 H (98-107) mmol/L Creatinine 0.53 L (0.66-1.25) mg/dL Glucose (74-99) mg/dL Calcium 8.1 L (8.4-10.2) mg/dL Total Bilirubin 1.4 H (0.2-1.3) mg/dL AST 423 H (17-59) U/L ALT 143 H (21-72) U/L Alkaline Phosphatase 256 H (38-126) U/L Total Protein 5.0 L (6.3-8.2) g/dL Albumin 2.6 L (3.5-5.0) g/dL Amylase 160 H (30-110) U/L Lipase 1781 H (23-300) U/L Thrombosis Risk Factor Assmnt - Choose All That Apply Any of the Below Risk Factors Present?: Yes Each Factor Represents 1 point: Age 41-60 years Other Risk Factors: No Thrombosis Risk Factor Assessment Total Risk Factor Score: 1 Thrombosis Risk Factor Assessment Level: Low Risk Assessment and Plan Plan: ASSESSMENT: Acute on chronic alcoholic pancreatitis, patient admits to drinking ETOH 2017 Alcohol abuse, patient continues to drink with last drink 11/11/2017 Transaminitis Recent EGD, October 2017, revealing mild duodenitis involving the duodenal bulb and second part of the duodenum most likely related to pancreatitis. 2 superficial erosions at the GE junction consistent with LA grade B reflux esophagitis. Chronic left hydroureteronephrosis secondary to urinary reflux from bladder into left ureter Urinary retention secondary to atonic bladder, patient instructed to self cath frequently Recent diagnosis of symptomatic urinary tract infection, resolved Multiple hospitalizations secondary to abdominal pain and pancreatitis, this is patients 33rd visit to the hospital in 2018 Chronic low back pain Generalized anxiety disorder Depression Nicotine dependence, patient is a current cigarette smoker, patient reports two packs per day PLAN: Consult GI for further evaluation. Await recommendations and input Maintain NPO until evaluated by GI service Continue IV fluids at 150cc/hr. Give 500cc bolus now. Discontinue IV morphine. Patient may resume his home medications of Tylenol #3 if needed for pain. Daily LFTs and pancreatic enzymes Home meds as appropriate Monitor labs GI prophylaxis: Protonix 40 mg PO BID DVT prophylaxis: MARGA hose to bilateral lower extremities Monitor vital signs and address as appropriate Discharge planning: Patient to return home when stable Further recommendations pending patient's course Nurse practitioner note has been reviewed by physician. Signing provider agrees with the documented findings, assessment, and plan of care.
[2017-11-13] MEDS: THIAMINE 100 MG TAB PO SCH ×2 (11:41→16:08)
[2017-11-13] MEDS: Acetaminophen-Codeine 300-30mg TAB PO PRN ×2 (11:42→19:39)
[2017-11-13] MEDS ORDERED: MAGNESIUM OXIDE 400 MG TAB PO SCH (12:00)
[2017-11-13] MEDS ORDERED: FOLIC ACID 1 MG TAB PO SCH (12:00)
--- NOTE | 2017-11-13 12:50 | P.CONS ---
History of Present Illness - Reason for Consult Consult date: 11/13/17 pancreatitis Requesting physician: Carrillo Leo Jr - History of Present Illness 47-year-old gentleman with a history of cholecystectomy, alcohol abuse chronic relapsing alcohol pancreatitis with multiple admissions over last month admitted yesterday with increased abdominal pain. Patient had abstained from alcohol since Memorial weekend however he started drinking alcohol a few days ago. White count 7.6-11.2. Hemoglobin 10.9. Total bilirubin 0.4-1.4. AST 17-423. ALT 26-143. AP 133-256. Lipase 1943 presently 1781. Amylase 157-160. BUN 10. Creatinine 0.5. Presently patient reports improvement in his epigastric pain requesting a diet. Afebrile. Review of Systems Constitutional: Denies fever, chills, sweats, weight gain, or loss. HEENT: Negative for migraines, blurred vision or loss, earaches, drainage, tinnitus, oral mucosal lesions, dysphagia, or odynophagia. Cardiac: Negative for chest pain, arrhythmias, or palpitation. Respiratory: Negative for shortness of breath, hemoptysis, cough, or sputum production. Gastrointestinal: See HPI for pertinent findings. Genitourinary: Negative for hematuria, urgency, frequency, polyuria, dysuria, or penile discharge. Musculoskeletal: Negative for muscle aches, swelling, arthritis, and arthralgias. Neurologic: Negative for stroke or TIA. Endocrine: Negative for thyroid problems. Skin: Negative for rash or itching. Psychiatric: Negative history for depression and anxiety Past Medical History Past Medical History: GERD/Reflux, GI Bleed, Hyperlipidemia, Liver Disease, Pneumonia, Prostate Disorder Additional Past Medical History / Comment(s): ETOH ABUSE(quit 2017)-RECURRANT PANCREATITIS, ALCOHOLIC HEPATITIS, NEUROPATHY BILATERAL FEET SINCE BACK SURGERY , hx of CHRONIC URINARY RETENTION DUE TO BACK PROBLEMS-SELF CATHS, CHRONIC LOW BACK PAIN (HAS STIMULATOR THAT PT STATES DOES NOT WORK), HEMATEMESIS, CHRONIC LOOSE STOOLS. History of Any Multi-Drug Resistant Organisms: None Reported Past Surgical History: Back Surgery, Cholecystectomy, Orthopedic Surgery Additional Past Surgical History / Comment(s): EGDS, colonoscopy, bronchoscopy, BACK surgeries with TITANIUM PLATES MILTON and CAGES, KIDNEY STONES removed per pt, SPINAL CORD STIMULATOR, ISMAEL KNEE ARTHROSCOPIES, PINKY FINGER RT HAND REATTATCHED Past Anesthesia/Blood Transfusion Reactions: No Reported Reaction Past Psychological History: Anxiety, Depression Additional Psychological History / Comment(s): PT LIVES AT HOME WITH in a 2 story home that has 3 porch steps/7 steps to 2nd floor.. 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 NO SERVICE.. occasionally uses either cane, walker or w/c also has shower chair and raised toilet seat. He does not drive, his can drive. Smoking Status: Current some day smoker Past Alcohol Use History: Abuse, Heavy Additional Past Alcohol Use History / Comment(s): Smokes 2 packs per day; hx alcoholic stated quit this year- states has not had a drink for 2.5 months until yesterday 11/11 Past Drug Use History: Marijuana Additional Drug Use History / Comment(s): Patient reports that he has not used Marijuana in over 12 months. - Past Family History Father Family Medical History: Diabetes Mellitus Additional Family Medical History / Comment(s): Mother Family Medical History: Dementia, Hyperlipidemia, Hypertension Additional Family Medical History / Comment(s): Mother is living. Medications and Allergies Home Medications Medication Instructions Recorded Confirmed Type Folic Acid 1 mg PO DAILY #30 tablet 07/15/15 11/12/17 Rx Atorvastatin [Lipitor] 10 mg PO HS 09/27/15 11/12/17 History Albuterol Inhaler [Ventolin Hfa 2 puff INHALATION RT-Q4H PRN 03/01/17 11/12/17 History Inhaler] traZODone HCL 50 mg PO HS 04/04/17 11/12/17 History Omeprazole [PriLOSEC] 40 mg PO BID #60 capsule. 05/16/17 11/12/17 Rx Gabapentin [Neurontin] 400 mg PO TID 07/18/17 11/12/17 History cloNIDine HCL [Catapres] 0.1 mg PO TID #30 tab 08/23/17 11/12/17 Rx Acetaminophen-Codeine 300-30mg 1 tab PO TID PRN 09/10/17 11/12/17 History [Tylenol w/codeine #3] DULoxetine HCL [Cymbalta] 60 mg PO DAILY 09/18/17 11/12/17 History Magnesium Oxide [Mag-Ox] 200 mg PO DAILY 09/18/17 11/12/17 History Tamsulosin HCl [Flomax] 0.4 mg PO DAILY 09/18/17 11/12/17 History Diazepam [Valium] 5 mg PO TID 10/20/17 11/12/17 History Lipase/Protease/Amylase [Creon Dr 2 cap PO TID-W/MEALS 10/20/17 11/12/17 History 24,000 Units Capsule] buPROPion XL [Wellbutrin XL] 150 mg PO DAILY 10/20/17 11/12/17 History Allergies Allergy/AdvReac Type Severity Reaction Status Date / Time No Known Allergies Allergy Verified 11/12/17 22:19 Physical Exam Vitals: Vital Signs Temp Pulse Pulse Resp BP BP Pulse Ox 11/13/17 07:05 98.4 F 87 16 144/83 99 11/13/17 00:30 98.9 F 101 H 17 122/84 100 11/13/17 00:00 99 F 83 18 144/90 98 11/12/17 18:44 99 F 85 18 117/80 98 Intake and Output 11/12/17 11/13/17 11/13/17 22:59 06:59 14:59 Intake Total 1645 Balance 1645 Intake: Intake, IV Titration 1645 Amount Sodium Chloride 0.9% 1, 675 000 ml @ 150 mls/hr IV . Q6H40M [facility] Rx#:[id number] Sodium Chloride 0.9% 1, 970 000 ml @ 999 mls/hr IV . Q1H1M [facility] Rx#:[id number] Other: Voiding Method Toilet Self-Catheterization Weight 67.132 kg General appearance: The patient is alert, oriented, in no acute distress. HET: Head is normocephalic and atraumatic. Pupils are equal and reactive. Oropharynx is clear without lesions. Neck: Supple without lymphadenopathy. Trachea midline. Heart: S1 S2. Regular rate and rhythm. Lungs: No crackles or wheezes are heard. Abdomen: Soft, epigastric tenderness, nondistended with bowel sounds. No peritoneal signs. No palpable organomegaly or masses. Extremities: Normal skin color and turgor. No cyanosis, rash, ulceration, clubbing, or edema. Radial and pedal pulses are 2/4 bilaterally. Neurological: No focal deficits. Strength and sensation are grossly intact. Results CBC & Chem 7: 11/13/17 09:00 11/13/17 09:00 Labs: Abnormal Lab Results - Last 24 Hours (Table) 11/12/17 11/12/17 11/13/17 Range/Units 19:30 19:30 09:00 WBC 11.2 H (3.8-10.6) k/uL RBC 4.21 L 3.71 L (4.30-5.90) m/uL Hgb 12.4 L 10.9 L (13.0-17.5) gm/dL Hct 38.8 L 35.7 L (39.0-53.0) % MCHC 30.6 L (31.0-37.0) g/dL RDW 16.4 H 16.4 H (11.5-15.5) % Neutrophils # 9.1 H (1.3-7.7) k/uL Lymphocytes # 0.7 L (1.0-4.8) k/uL Chloride (98-107) mmol/L Creatinine 0.60 L (0.66-1.25) mg/dL Glucose 109 H (74-99) mg/dL Calcium (8.4-10.2) mg/dL Total Bilirubin (0.2-1.3) mg/dL AST (17-59) U/L ALT (21-72) U/L Alkaline Phosphatase 133 H (38-126) U/L Total Protein 5.9 L (6.3-8.2) g/dL Albumin 3.3 L (3.5-5.0) g/dL Amylase 157 H (30-110) U/L Lipase 1943 H (23-300) U/L 11/13/17 Range/Units 09:00 WBC (3.8-10.6) k/uL RBC (4.30-5.90) m/uL Hgb (13.0-17.5) gm/dL Hct (39.0-53.0) % MCHC (31.0-37.0) g/dL RDW (11.5-15.5) % Neutrophils # (1.3-7.7) k/uL Lymphocytes # (1.0-4.8) k/uL Chloride 108 H (98-107) mmol/L Creatinine 0.53 L (0.66-1.25) mg/dL Glucose (74-99) mg/dL Calcium 8.1 L (8.4-10.2) mg/dL Total Bilirubin 1.4 H (0.2-1.3) mg/dL AST 423 H (17-59) U/L ALT 143 H (21-72) U/L Alkaline Phosphatase 256 H (38-126) U/L Total Protein 5.0 L (6.3-8.2) g/dL Albumin 2.6 L (3.5-5.0) g/dL Amylase 160 H (30-110) U/L Lipase 1781 H (23-300) U/L Assessment and Plan (1) Acute on chronic pancreatitis Current Visit: Yes Status: Acute Code(s): K85.90 - ACUTE PANCREATITIS WITHOUT NECROSIS OR INFECTION, UNSP; K86.1 - OTHER CHRONIC PANCREATITIS SNOMED Code(s): 797940055 (2) ETOH abuse Current Visit: Yes Status: Acute Code(s): F10.10 - ALCOHOL ABUSE, UNCOMPLICATED SNOMED Code(s): 93025466 (3) Transaminitis Narrative/Plan: Suspect component of alcohol hepatitis Current Visit: Yes Status: Acute Code(s): R74.0 - NONSPEC ELEV OF LEVELS OF TRANSAMNS & LACTIC ACID DEHYDRGNSE SNOMED Code(s): 682290741 Plan: 1. Will allow clear liquids considering he has minimal abdominal discomfort. Alcohol abstinence was advised. Continue supportive measures IV hydration. Daily pancreatic/liver enzymes. GI prophylaxis. Thank you for this kind referral and the opportunity to participate in the care of your patient. This consultation was discussed with Dr. Kellogg. The impression and plan of care have been directed as dictated.
[2017-11-13] MEDS: PANTOPRAZOLE 40 MG TABLET PO SCH (16:08)
[2017-11-13] MEDS ORDERED: ATORVASTATIN 10 MG TAB PO SCH (21:00)
[2017-11-13] MEDS ORDERED: traZODone HCL 50 MG TAB PO SCH (21:00)
[2017-11-14 01:55] VITALS: BP 104/71; PULSE 81; TEMP 97.9
[2017-11-14] MEDS: SODIUM CHLORIDE 0.9% 1,000 ML IV SCH ×2 (02:48→11:03)
[2017-11-14 09:18] LABS: ALT 89 U/L (21-72); AST 83 U/L (17-59); Albumin 2.1 g/dL (3.5-5.0); Alkaline Phosphatase 205 U/L (38-126); Amylase 71 U/L (30-110); Anion Gap 9 mmol/L; Blood Urea Nitrogen 8 mg/dL (9-20); Calcium 7.5 mg/dL (8.4-10.2); Carbon Dioxide 20 mmol/L (22-30); Chloride 108 mmol/L (98-107); Glucose 90 mg/dL (74-99); Lipase 351 U/L (23-300); Potassium 3.8 mmol/L (3.5-5.1); Sodium 137 mmol/L (137-145); Total Bilirubin 0.5 mg/dL (0.2-1.3); Total Protein 4.5 g/dL (6.3-8.2)
[2017-11-14] MEDS: GABAPENTIN 400 MG CAP PO SCH (11:02)
[2017-11-14] MEDS: TAMSULOSIN 0.4 MG CAP.ER.24H PO SCH (11:02)
[2017-11-14] MEDS: PANTOPRAZOLE 40 MG TABLET PO SCH (11:02)
[2017-11-14] MEDS: DIAZEPAM 5 MG TAB PO SCH (11:02)
[2017-11-14] MEDS: cloNIDine HCL 0.1 MG TAB PO SCH (11:02)
[2017-11-14] MEDS: DULoxetine HCL 60 MG CAPSULE.DR PO SCH (11:02)
[2017-11-14] MEDS: buPROPion XL 150 MG TAB.ER.24H PO SCH (11:02)
[2017-11-14] MEDS: LIPASE 5,000/PROTEASE 17,000/AMYLASE 27,0000 PO SCH (11:02)
[2017-11-14] MEDS: NICOTINE 21MG/24HR PATCH TRANSDERM SCH (11:02)
[2017-11-14 11:14] LABS: Anisocytosis Slight; HCT 32.1 % (39.0-53.0); HGB 10.1 gm/dL (13.0-17.5); Hypochromasia Slight; MCH 30.3 pg (25.0-35.0); MCHC 31.3 g/dL (31.0-37.0); MCV 96.8 fL (80.0-100.0); Mean Platelet Volume 7.9; Platelet Count 261 k/uL (150-450); RBC 3.32 m/uL (4.30-5.90); RDW 16.5 % (11.5-15.5); WBC 9.2 k/uL (3.8-10.6)
--- NOTE | 2017-11-14 11:20 | P.DS ---
Providers Date of admission: 11/12/17 22:46 Expected date of discharge: 11/14/17 Attending physician: Carrillo Leo Consults: 11/13/17 07:31 Consult Physician Routine Consulting Provider: Phillip Martinez Consult Reason/Comments: pancreatitis Do you want consulting provider notified?: Yes Primary care physician: [facility] Course: 47-year-old male who presented to the emergency room with a chief complaint of abdominal pain, nausea, and vomiting. The patient has had numerous hospitalizations this year secondary to pancreatitis. The patient was just discharged from the hospital on 11/08/2017. This is the patients 33rd visit to the hospital this year. The patient has a history of alcohol abuse but over the past few hospitalizations he has denied alcohol use and stated he had not consumed alcohol since , even though he was positive for ETOH during his admission on 10/20/2017. The patient does admit to alcohol use at this admission. He states he was drinking rum and coke on Sunday and began having abdominal pain and nausea on Sunday. He decided to come to the emergency room yesterday for further evaluation. The patient has a history of pancreatitis secondary to alcohol abuse, gastroesophageal reflux disease, hyperlipidemia, and urinary retention. He has been instructed to straight cath 3-4 times a day at home, but patient states he has only been doing this 1 or 2 times. He has was a history of anxiety and depression. He is a current cigarette smoker and smokes 2 packs per day. In October 2017, patient EGD revealing mild duodenitis involving the duodenal bulb and second part of the duodenum most likely related to pancreatitis. 2 superficial erosions at the GE junction consistent with LA grade B reflux esophagitis. Laboratory results on day of admission: WBC 11.2. Hemoglobin 12.4. Platelet count 416. Sodium 139. Potassium 4.0. BUN 9. Creatinine 0.60. Glucose 109. AST 17. ALT 26. Alkaline phosphatase 133. Amylase 157. Lipase 1943. Repeat laboratory results from this morning: AST 423. ALT 143. Alkaline phosphatase 256. Amylase 160. Lipase 1781. Patient received IV hydration during hospitalization. His abdominal pain has resolved. Amylase and lipase are improving. He is tolerating clear liquid diet. Patient instructed to advance diet very slowly. Patient verbalized understanding. He was deemed stable for discharge. He is to follow up on an outpatient basis. Patient was encouraged to avoid alcohol. Discharge Diagnosis: Acute on chronic alcoholic pancreatitis, patient admits to drinking ETOH 2017, improved at discharge Alcohol abuse, patient continues to drink with last drink 11/11/2017 Transaminitis, resolved at discharge Recent EGD, October 2017, revealing mild duodenitis involving the duodenal bulb and second part of the duodenum most likely related to pancreatitis. 2 superficial erosions at the GE junction consistent with LA grade B reflux esophagitis. Chronic left hydroureteronephrosis secondary to urinary reflux from bladder into left ureter Urinary retention secondary to atonic bladder, patient instructed to self cath frequently Recent diagnosis of symptomatic urinary tract infection, resolved Multiple hospitalizations secondary to abdominal pain and pancreatitis, this is patients 33rd visit to the hospital in 2018 Chronic low back pain Generalized anxiety disorder Depression Nicotine dependence, patient is a current cigarette smoker, patient reports two packs per day Nurse practitioner note has been reviewed by physician. Signing provider agrees with the documented findings, assessment, and plan of care. Patient Condition at Discharge: Stable Plan - Discharge Summary Discharge Rx Participant: Yes New Discharge Prescriptions: Continue Folic Acid 1 mg PO DAILY #30 tablet Atorvastatin [Lipitor] 10 mg PO HS Albuterol Inhaler [Ventolin Hfa Inhaler] 2 puff INHALATION RT-Q4H PRN PRN Reason: Shortness Of Breath traZODone HCL 50 mg PO HS Omeprazole [PriLOSEC] 40 mg PO BID #60 capsule. Gabapentin [Neurontin] 400 mg PO TID cloNIDine HCL [Catapres] 0.1 mg PO TID #30 tab Acetaminophen-Codeine 300-30mg [Tylenol w/codeine #3] 1 tab PO TID PRN PRN Reason: pain DULoxetine HCL [Cymbalta] 60 mg PO DAILY Magnesium Oxide [Mag-Ox] 200 mg PO DAILY Tamsulosin HCl [Flomax] 0.4 mg PO DAILY buPROPion XL [Wellbutrin XL] 150 mg PO DAILY Diazepam [Valium] 5 mg PO TID Lipase/Protease/Amylase [Rebel Belcher 24,000 Units Capsule] 2 cap PO TID-W/MEALS Discharge Medication List Folic Acid 1 mg PO DAILY #30 tablet 07/15/15 [Rx] Atorvastatin [Lipitor] 10 mg PO HS 09/27/15 [History] Albuterol Inhaler [Ventolin Hfa Inhaler] 2 puff INHALATION RT-Q4H PRN 03/01/17 [ History] traZODone HCL 50 mg PO HS 04/04/17 [History] Omeprazole [PriLOSEC] 40 mg PO BID #60 capsule. 05/16/17 [Rx] Gabapentin [Neurontin] 400 mg PO TID 07/18/17 [History] cloNIDine HCL [Catapres] 0.1 mg PO TID #30 tab 08/23/17 [Rx] Acetaminophen-Codeine 300-30mg [Tylenol w/codeine #3] 1 tab PO TID PRN 09/10/17 [History] DULoxetine HCL [Cymbalta] 60 mg PO DAILY 09/18/17 [History] Magnesium Oxide [Mag-Ox] 200 mg PO DAILY 09/18/17 [History] Tamsulosin HCl [Flomax] 0.4 mg PO DAILY 09/18/17 [History] Diazepam [Valium] 5 mg PO TID 10/20/17 [History] Lipase/Protease/Amylase [Rebel Belcher 24,000 Units Capsule] 2 cap PO TID-W/MEALS 07/08 [History] buPROPion XL [Wellbutrin XL] 150 mg PO DAILY 10/20/17 [History] Follow up Appointment(s)/Referral(s): Phillip Martinez MD [STAFF PHYSICIAN] - 1 Week Carrillo Leo Jr, DO [Primary Care Provider] - 1 Week Activity/Diet/Wound Care/Special Instructions: Avoid alcohol Discharge Disposition: HOME SELF-CARE
[2017-11-14 12:04] LABS: Lymphocytes # (M) 0.46 k/uL (1.0-4.8); Monocytes # (M) 0.28 k/uL (0-1.0); Neutrophils # (M) 8.46 k/uL (1.3-7.7); Neutrophils % (M) 92 %; Nucleated Red Blood Cells 0 /100 WBC (0-0); Total Cells Counted 100
[2017-11-14 12:06] LABS: Poikilocytosis (M) Present
== END 2017-11-14 12:35 | disposition home or self-care (01) | DRG 439 ==
LOC: EC 18:23 → 3SUR 22:46
PROVIDERS: ADMIT Family Medicine; ATTEND Family Medicine
DX: K85.20 Alcohol induced acute pancreatitis without necrosis or infection (principal); N13.30 Unspecified hydronephrosis; R74.0 Nonspecific elevation of levels of transaminase and lactic acid dehydrogenase [LDH]; N31.2 Flaccid neuropathic bladder, not elsewhere classified; M54.5 Low back pain; G89.29 Other chronic pain; F41.1 Generalized anxiety disorder; F32.9 Major depressive disorder, single episode, unspecified; R33.8 Other retention of urine; F17.210 Nicotine dependence, cigarettes, uncomplicated; E78.5 Hyperlipidemia, unspecified; F10.10 Alcohol abuse, uncomplicated; K21.0 Gastro-esophageal reflux disease with esophagitis; K86.0 Alcohol-induced chronic pancreatitis; Z79.899 Other long term (current) drug therapy; Z82.49 Family history of ischemic heart disease and other diseases of the circulatory system; Z83.3 Family history of diabetes mellitus; Z90.49 Acquired absence of other specified parts of digestive tract
CPT/HCPCS: 36415; 80053; 82150; 83690; 85025; 94640; 96372; 96374; 96375; 99285

== ENCOUNTER 2017-11-22 01:20 | Emergency (ER) | payer MEDICARE, OTHER ==
[2017-11-22 01:52] LABS: Anisocytosis Slight; Basophils % (A) 0 %; Eosinophils # (A) 0.1 k/uL (0-0.7); Eosinophils % (A) 1 %; HCT 33.9 % (39.0-53.0); HGB 11.1 gm/dL (13.0-17.5); Lymphocytes % (A) 20 %; MCH 29.9 pg (25.0-35.0); MCHC 32.7 g/dL (31.0-37.0); Mean Platelet Volume 7.3; Monocytes # (A) 0.5 k/uL (0-1.0); Monocytes % (A) 5 %; Neutrophils # (A) 7.3 k/uL (1.3-7.7); Neutrophils % (A) 72 %; Platelet Count 464 k/uL (150-450); RDW 16.2 % (11.5-15.5); WBC 10.1 k/uL (3.8-10.6)
[2017-11-22 01:58] LABS: MCV 91.7 fL (80.0-100.0)
[2017-11-22 02:05] LABS: ALT 25 U/L (21-72); AST 19 U/L (17-59); Albumin 3.2 g/dL (3.5-5.0); Alcohol 141 mg/dL; Alkaline Phosphatase 154 U/L (38-126); Amylase 53 U/L (30-110); Anion Gap 11 mmol/L; Blood Urea Nitrogen 4 mg/dL (9-20); Calcium 8.8 mg/dL (8.4-10.2); Carbon Dioxide 21 mmol/L (22-30); Chloride 105 mmol/L (98-107); Glucose 92 mg/dL (74-99); Lipase 408 U/L (23-300); Potassium 4.2 mmol/L (3.5-5.1); Sodium 137 mmol/L (137-145); Total Bilirubin 0.2 mg/dL (0.2-1.3); Total Protein 5.9 g/dL (6.3-8.2)
--- NOTE | 2017-11-22 02:07 | XR ---
EXAMINATION TYPE: XR KUB DATE OF EXAM: 11/22/2017 COMPARISON: 11/07/2017 HISTORY: Abdominal pain TECHNIQUE: Single view FINDINGS: There are rods and screws fusing the lumbar spine at L4 L5 S1. There is neurostimulator. Th ere are clips from cholecystectomy. There is no sign of intestinal obstruction or pneumoperitoneum. F ecal pattern is normal. There are no pathologic calcifications over the kidneys. IMPRESSION: Nonacute abdomen. No change compared to old exam.
[2017-11-22] MEDS ORDERED: MORPHINE SULFATE 2 MG/ML SYRINGE IV STA (03:21)
[2017-11-22] MEDS ORDERED: ONDANSETRON 4 MG/2 ML VIAL IVP STA (03:21)
--- NOTE | 2017-11-22 03:26 | ED ---
Abdominal Pain HPI - General Chief Complaint: Abdominal Pain Stated Complaint: Abdominal Pain Time Seen by Provider: 11/22/17 01:31 Source: patient Mode of arrival: wheelchair Limitations: no limitations - History of Present Illness Initial Comments: This patient is a 47-year-old man with history of pancreatitis who presents to be evaluated for abdominal pain that he states is similar to previous pancreatitis. Patient states he did have some alcohol drink today. MD Complaint: abdominal pain -: hour(s) Location: diffuse Radiation: none Migration to: no migration Severity: moderate Quality: aching Consistency: constant Improves With: nothing Worsens With: nothing Associated Symptoms: nausea - Related Data Home Medications Medication Instructions Recorded Confirmed Atorvastatin [Lipitor] 10 mg PO HS 09/27/15 11/22/17 Albuterol Inhaler [Ventolin Hfa 2 puff INHALATION RT-Q4H PRN 03/01/17 11/22/17 Inhaler] traZODone HCL 50 mg PO HS 04/04/17 11/22/17 Gabapentin [Neurontin] 400 mg PO TID 07/18/17 11/22/17 Acetaminophen-Codeine 300-30mg 1 tab PO TID PRN 09/10/17 11/22/17 [Tylenol w/codeine #3] DULoxetine HCL [Cymbalta] 60 mg PO DAILY 09/18/17 11/22/17 Magnesium Oxide [Mag-Ox] 200 mg PO DAILY 09/18/17 11/22/17 Tamsulosin HCl [Flomax] 0.4 mg PO DAILY 09/18/17 11/22/17 Diazepam [Valium] 5 mg PO TID 10/20/17 11/22/17 Lipase/Protease/Amylase [Rebel Belcher 2 cap PO TID-W/MEALS 10/20/17 11/22/17 24,000 Units Capsule] buPROPion XL [Wellbutrin XL] 150 mg PO DAILY 10/20/17 11/22/17 Previous Rx's Medication Instructions Recorded Folic Acid 1 mg PO DAILY #30 tablet 07/15/15 Omeprazole [PriLOSEC] 40 mg PO BID #60 capsule. 05/16/17 cloNIDine HCL [Catapres] 0.1 mg PO TID #30 tab 08/23/17 Allergies Allergy/AdvReac Type Severity Reaction Status Date / Time No Known Allergies Allergy Verified 11/22/17 11:22 Review of Systems ROS Statement: Those systems with pertinent positive or pertinent negative responses have been documented in the HPI. ROS Other: All systems not noted in ROS Statement are negative. Constitutional: Denies: fever, chills Respiratory: Denies: cough, dyspnea Cardiovascular: Denies: chest pain, palpitations, edema, syncope Gastrointestinal: Reports: abdominal pain, nausea. Denies: vomiting, diarrhea, melena, hematochezia Genitourinary: Denies: dysuria, hematuria, testicular pain Musculoskeletal: Denies: back pain Skin: Denies: rash Neurological: Denies: headache, weakness Past Medical History Past Medical History: GERD/Reflux, GI Bleed, Hyperlipidemia, Liver Disease, Pneumonia, Prostate Disorder Additional Past Medical History / Comment(s): ETOH ABUSE(quit 2017)-RECURRANT PANCREATITIS, ALCOHOLIC HEPATITIS, NEUROPATHY BILATERAL FEET SINCE BACK SURGERY , hx of CHRONIC URINARY RETENTION DUE TO BACK PROBLEMS-SELF CATHS, CHRONIC LOW BACK PAIN (HAS STIMULATOR THAT PT STATES DOES NOT WORK), HEMATEMESIS, CHRONIC LOOSE STOOLS. History of Any Multi-Drug Resistant Organisms: None Reported Past Surgical History: Back Surgery, Cholecystectomy, Orthopedic Surgery Additional Past Surgical History / Comment(s): EGDS, colonoscopy, bronchoscopy, BACK surgeries with TITANIUM PLATES MILTON and CAGES, KIDNEY STONES removed per pt, SPINAL CORD STIMULATOR, ISMAEL KNEE ARTHROSCOPIES, PINKY FINGER RT HAND REATTATCHED Past Anesthesia/Blood Transfusion Reactions: No Reported Reaction Past Psychological History: Anxiety, Depression Smoking Status: Current some day smoker Past Alcohol Use History: Abuse, Heavy Past Drug Use History: Marijuana - Past Family History Father Family Medical History: Diabetes Mellitus Additional Family Medical History / Comment(s): Mother Family Medical History: Dementia, Hyperlipidemia, Hypertension Additional Family Medical History / Comment(s): Mother is living. General Exam Limitations: no limitations General appearance: alert, in no apparent distress Head exam: Present: atraumatic, normocephalic Eye exam: Present: normal appearance. Absent: scleral icterus, conjunctival injection ENT exam: Present: normal oropharynx Neck exam: Present: normal inspection Respiratory exam: Present: normal lung sounds bilaterally. Absent: respiratory distress, wheezes, rales, rhonchi, stridor, chest wall tenderness Cardiovascular Exam: Present: regular rate, normal rhythm, normal heart sounds. Absent: systolic murmur, diastolic murmur, rubs, gallop GI/Abdominal exam: Present: soft, tenderness (There is mild diffuse tenderness without rebound or guarding). Absent: distended, guarding, rebound, rigid, mass , pulsatile mass, hernia Extremities exam: Present: normal inspection, normal capillary refill. Absent: pedal edema, calf tenderness Back exam: Present: normal inspection. Absent: CVA tenderness (R), CVA tenderness (L) Neurological exam: Present: alert Skin exam: Present: warm, dry, intact, normal color. Absent: rash Course Vital Signs 11/22/17 11/22/17 01:22 04:34 Temperature 97.9 F 97 F L Pulse Rate 94 95 Respiratory 16 18 Rate Blood Pressure 113/71 127/76 O2 Sat by Pulse 99 99 Oximetry Medical Decision Making - Lab Data Result diagrams: 11/22/17 01:40 11/22/17 01:40 Lab Results 11/22/17 11/22/17 11/22/17 Range/Units 01:40 01:40 03:23 WBC 10.1 (3.8-10.6) k/uL RBC 3.70 L (4.30-5.90) m/uL Hgb 11.1 L (13.0-17.5) gm/dL Hct 33.9 L (39.0-53.0) % MCV 91.7 D (80.0-100.0) fL MCH 29.9 (25.0-35.0) pg MCHC 32.7 (31.0-37.0) g/dL RDW 16.2 H (11.5-15.5) % Plt Count 464 H (150-450) k/uL Neutrophils % 72 % Lymphocytes % 20 % Monocytes % 5 % Eosinophils % 1 % Basophils % 0 % Neutrophils # 7.3 (1.3-7.7) k/uL Lymphocytes # 2.0 (1.0-4.8) k/uL Monocytes # 0.5 (0-1.0) k/uL Eosinophils # 0.1 (0-0.7) k/uL Basophils # 0.0 (0-0.2) k/uL Anisocytosis Slight Sodium 137 (137-145) mmol/L Potassium 4.2 (3.5-5.1) mmol/L Chloride 105 (98-107) mmol/L Carbon Dioxide 21 L (22-30) mmol/L Anion Gap 11 mmol/L BUN 4 L (9-20) mg/dL Creatinine 0.60 L (0.66-1.25) mg/dL Est GFR (CKD-EPI)AfAm >90 (>60 ml/min/1.73 sqM) Est GFR (CKD-EPI)NonAf >90 (>60 ml/min/1.73 sqM) Glucose 92 (74-99) mg/dL Calcium 8.8 (8.4-10.2) mg/dL Total Bilirubin 0.2 (0.2-1.3) mg/dL AST 19 (17-59) U/L ALT 25 (21-72) U/L Alkaline Phosphatase 154 H (38-126) U/L Total Protein 5.9 L (6.3-8.2) g/dL Albumin 3.2 L (3.5-5.0) g/dL Amylase 53 (30-110) U/L Lipase 408 H (23-300) U/L Urine Color Light Yellow Urine Appearance Clear (Clear) Urine pH 5.5 (5.0-8.0) Ur Specific [place] 1.002 (1.001-1.035) Urine Protein Negative (Negative) Urine Glucose (UA) Negative (Negative) Urine Ketones Negative (Negative) Urine Blood Negative (Negative) Urine Nitrite Negative (Negative) Urine Bilirubin Negative (Negative) Urine Urobilinogen <2.0 (<2.0) mg/dL Ur Leukocyte Esterase Small H (Negative) Urine RBC 2 (0-5) /hpf Urine WBC 2 (0-5) /hpf Urine Yeast (Budding) Many H (None) /hpf Serum Alcohol 141 mg/dL Disposition Clinical Impression: Chronic pancreatitis, Abdominal pain, History of alcohol abuse Disposition: HOME SELF-CARE Condition: Fair Instructions: Abdominal Pain (ED) Is patient prescribed a controlled substance at d/c from ED?: No Referrals: Carrillo Leo Jr, [Primary Care Provider] - 1-2 days
[2017-11-22 03:32] LABS: Appearance,Urine Clear (Clear); Bilirubin,Urine Negative (Negative); Blood,Urine Negative (Negative); Budding Yeast,Urine Many /hpf; Color,Urine Light Yellow; Glucose,Urine (UA) Negative (Negative); Ketones,Urine Negative (Negative); Leukocyte Esterase,Urine Small (Negative); Nitrite,Urine Negative (Negative); PH, Urine 5.5 (5.0-8.0); Protein,Urine Negative (Negative); RBC,Urine 2 /hpf (0-5); Specific Gravity,Urine 1.002 (1.001-1.035); Urobilinogen,Urine <2.0 mg/dL (<2.0); WBC,Urine 2 /hpf (0-5)
[2017-11-22 04:35] VITALS: BP 127/76; PULSE 95; RESP 18; TEMP 97
== END 2017-11-22 04:35 | disposition home or self-care (01) ==
LOC: EC 01:20
DX: K86.1 Other chronic pancreatitis (principal); F10.10 Alcohol abuse, uncomplicated; E78.5 Hyperlipidemia, unspecified; G62.9 Polyneuropathy, unspecified; N42.9 Disorder of prostate, unspecified; F32.9 Major depressive disorder, single episode, unspecified; F41.9 Anxiety disorder, unspecified; F17.200 Nicotine dependence, unspecified, uncomplicated; Z79.899 Other long term (current) drug therapy; Z87.448 Personal history of other diseases of urinary system; Z90.49 Acquired absence of other specified parts of digestive tract
CPT/HCPCS: 36415; 80053; 82150; 83690; 85025; 81001; 80320; 74018; 99284; 96374; 96375; J2405; J2270

== ENCOUNTER 2017-11-22 10:37 | Inpatient (IN) | payer MEDICARE, OTHER ==
[2017-11-22] MEDS ORDERED: SODIUM CHLORIDE 0.9% 1,000 ML IV ONE (10:56)
[2017-11-22] MEDS ORDERED: KETOROLAC 30 MG/ML 1 ML VIAL IVP STA (12:19)
--- NOTE | 2017-11-22 12:19 | ED ---
Abdominal Pain HPI - General Source: patient, RN notes reviewed Mode of arrival: wheelchair Limitations: no limitations <Ten Quigley - Last Filed: 11/22/17 12:30> <Herman Neal - Last Filed: 11/22/17 12:48> - General Chief Complaint: Abdominal Pain Stated Complaint: abd pain Time Seen by Provider: 11/22/17 10:55 - History of Present Illness Initial Comments: This a 47-year-old male presents emergency Department for increasing abdominal pain. Patient was seen earlier this morning for concerns of pancreatitis. Patient has chronic pancreatitis secondary to alcohol abuse. Patient did have alcohol on board this morning and he states he stopped drinking last night. Patient denies any nausea vomiting. Patient states his has increased pain. Denies any diarrhea no constipation no back pain no chest pain or shortness of breath. (Ten Quigley) - Related Data Home Medications Medication Instructions Recorded Confirmed Atorvastatin [Lipitor] 10 mg PO HS 09/27/15 11/22/17 Albuterol Inhaler [Ventolin Hfa 2 puff INHALATION RT-Q4H PRN 03/01/17 11/22/17 Inhaler] traZODone HCL 50 mg PO HS 04/04/17 11/22/17 Gabapentin [Neurontin] 400 mg PO TID 07/18/17 11/22/17 Acetaminophen-Codeine 300-30mg 1 tab PO TID PRN 09/10/17 11/22/17 [Tylenol w/codeine #3] DULoxetine HCL [Cymbalta] 60 mg PO DAILY 09/18/17 11/22/17 Magnesium Oxide [Mag-Ox] 200 mg PO DAILY 09/18/17 11/22/17 Tamsulosin HCl [Flomax] 0.4 mg PO DAILY 09/18/17 11/22/17 Diazepam [Valium] 5 mg PO TID 10/20/17 11/22/17 Lipase/Protease/Amylase [Rebel Belcher 2 cap PO TID-W/MEALS 10/20/17 11/22/17 24,000 Units Capsule] buPROPion XL [Wellbutrin XL] 150 mg PO DAILY 10/20/17 11/22/17 Previous Rx's Medication Instructions Recorded Folic Acid 1 mg PO DAILY #30 tablet 07/15/15 Omeprazole [PriLOSEC] 40 mg PO BID #60 capsule. 05/16/17 cloNIDine HCL [Catapres] 0.1 mg PO TID #30 tab 08/23/17 Allergies Allergy/AdvReac Type Severity Reaction Status Date / Time No Known Allergies Allergy Verified 11/22/17 11:22 Review of Systems ROS Other: All systems not noted in ROS Statement are negative. <Ten Quigley - Last Filed: 11/22/17 12:30> ROS Other: All systems not noted in ROS Statement are negative. <Herman Neal - Last Filed: 11/22/17 12:48> ROS Statement: Those systems with pertinent positive or pertinent negative responses have been documented in the HPI. Past Medical History Past Medical History: GERD/Reflux, GI Bleed, Hyperlipidemia, Liver Disease, Pneumonia, Prostate Disorder Additional Past Medical History / Comment(s): ETOH ABUSE RECURRANT PANCREATITIS , ALCOHOLIC HEPATITIS, NEUROPATHY BILATERAL FEET SINCE BACK SURGERY, hx of CHRONIC URINARY RETENTION DUE TO BACK PROBLEMS-SELF CATHS, CHRONIC LOW BACK PAIN (HAS STIMULATOR THAT PT STATES DOES NOT WORK), HEMATEMESIS, CHRONIC LOOSE STOOLS. History of Any Multi-Drug Resistant Organisms: None Reported Past Surgical History: Back Surgery, Cholecystectomy, Orthopedic Surgery Additional Past Surgical History / Comment(s): EGDS, colonoscopy, bronchoscopy, BACK surgeries with TITANIUM PLATES MILTON and CAGES, KIDNEY STONES removed per pt, SPINAL CORD STIMULATOR, ISMAEL KNEE ARTHROSCOPIES, PINKY FINGER RT HAND REATTATCHED Past Anesthesia/Blood Transfusion Reactions: No Reported Reaction Past Psychological History: Anxiety, Depression Smoking Status: Current every day smoker Past Alcohol Use History: Abuse, Heavy Past Drug Use History: None Reported, Marijuana - Past Family History Father Family Medical History: Diabetes Mellitus Additional Family Medical History / Comment(s): Mother Family Medical History: Dementia, Hyperlipidemia, Hypertension Additional Family Medical History / Comment(s): Mother is living. <Ten Quigley - Last Filed: 11/22/17 12:30> General Exam Limitations: no limitations General appearance: alert, in no apparent distress Neck exam: Present: normal inspection. Absent: tenderness, meningismus, lymphadenopathy Respiratory exam: Present: normal lung sounds bilaterally. Absent: respiratory distress, wheezes, rales, rhonchi, stridor Cardiovascular Exam: Present: regular rate, normal rhythm, normal heart sounds. Absent: systolic murmur, diastolic murmur, rubs, gallop, clicks GI/Abdominal exam: Present: soft, tenderness, normal bowel sounds. Absent: distended, guarding, rebound, rigid <Ten Quigley - Last Filed: 11/22/17 12:30> Course <Ten Quigley - Last Filed: 11/22/17 12:30> <Herman Neal - Last Filed: 11/22/17 12:48> Vital Signs 11/22/17 11/22/17 10:51 12:33 Temperature 98.4 F 98.4 F Pulse Rate 86 71 Respiratory 18 16 Rate Blood Pressure 136/85 149/88 O2 Sat by Pulse 99 100 Oximetry - Reevaluation(s) Reevaluation #1: 11/22/17 12:47 PA supervision: I did personally see and examine the patient I reviewed and agree with the PA findings including diagnostic interpretations and treatment plans. The case was discussed with Dr. Trejo. Patient states he only had 2 rum and cokes last evening he was seen approximately 10 hours earlier in the emergency department he had a marked elevation of his lipase and a time interval. He continues to have abdominal pain. (Herman Neal) Medical Decision Making - Lab Data Result diagrams: 11/22/17 11:45 11/22/17 11:45 <Ten Quigley - Last Filed: 11/22/17 12:30> - Lab Data Result diagrams: 11/22/17 11:45 11/22/17 11:45 <Herman Neal - Last Filed: 11/22/17 12:48> - Lab Data Lab Results 11/22/17 11/22/17 Range/Units 11:45 11:45 WBC 10.0 (3.8-10.6) k/uL RBC 3.77 L (4.30-5.90) m/uL Hgb 11.4 L (13.0-17.5) gm/dL Hct 35.3 L (39.0-53.0) % MCV 93.6 (80.0-100.0) fL MCH 30.1 (25.0-35.0) pg MCHC 32.2 (31.0-37.0) g/dL RDW 16.2 H (11.5-15.5) % Plt Count 476 H (150-450) k/uL Neutrophils % 83 % Lymphocytes % 9 % Monocytes % 6 % Eosinophils % 1 % Basophils % 0 % Neutrophils # 8.3 H (1.3-7.7) k/uL Lymphocytes # 0.9 L (1.0-4.8) k/uL Monocytes # 0.6 (0-1.0) k/uL Eosinophils # 0.1 (0-0.7) k/uL Basophils # 0.0 (0-0.2) k/uL Anisocytosis Slight Sodium 141 (137-145) mmol/L Potassium 4.9 (3.5-5.1) mmol/L Chloride 106 (98-107) mmol/L Carbon Dioxide 27 (22-30) mmol/L Anion Gap 8 mmol/L BUN 5 L (9-20) mg/dL Creatinine 0.58 L (0.66-1.25) mg/dL Est GFR (CKD-EPI)AfAm >90 (>60 ml/min/1.73 sqM) Est GFR (CKD-EPI)NonAf >90 (>60 ml/min/1.73 sqM) Glucose 106 H (74-99) mg/dL Calcium 8.9 (8.4-10.2) mg/dL Total Bilirubin 0.3 (0.2-1.3) mg/dL AST 72 H (17-59) U/L ALT 46 (21-72) U/L Alkaline Phosphatase 259 H (38-126) U/L Total Protein 5.6 L (6.3-8.2) g/dL Albumin 2.9 L (3.5-5.0) g/dL Amylase 108 (30-110) U/L Lipase 1446 H (23-300) U/L Serum Alcohol <10 mg/dL Disposition <Ten Quigley - Last Filed: 11/22/17 12:30> <Herman Neal - Last Filed: 11/22/17 12:48> Clinical Impression: Acute on chronic pancreatitis Disposition: ADMITTED IP TO THIS [facility] Condition: Stable Referrals: Carrillo Leo Jr, DO [Primary Care Provider] - 1-2 days
[2017-11-22 12:20] LABS: ALT 46 U/L (21-72); AST 72 U/L (17-59); Albumin 2.9 g/dL (3.5-5.0); Alcohol <10 mg/dL; Alkaline Phosphatase 259 U/L (38-126); Amylase 108 U/L (30-110); Anion Gap 8 mmol/L; Anisocytosis Slight; Basophils % (A) 0 %; Blood Urea Nitrogen 5 mg/dL (9-20); Calcium 8.9 mg/dL (8.4-10.2); Carbon Dioxide 27 mmol/L (22-30); Chloride 106 mmol/L (98-107); Eosinophils # (A) 0.1 k/uL (0-0.7); Eosinophils % (A) 1 %; Glucose 106 mg/dL (74-99); HCT 35.3 % (39.0-53.0); HGB 11.4 gm/dL (13.0-17.5); Lipase 1446 U/L (23-300); Lymphocytes # (A) 0.9 k/uL (1.0-4.8); Lymphocytes % (A) 9 %; MCH 30.1 pg (25.0-35.0); MCHC 32.2 g/dL (31.0-37.0); MCV 93.6 fL (80.0-100.0); Mean Platelet Volume 6.9; Monocytes # (A) 0.6 k/uL (0-1.0); Monocytes % (A) 6 %; Neutrophils # (A) 8.3 k/uL (1.3-7.7); Neutrophils % (A) 83 %; Platelet Count 476 k/uL (150-450); Potassium 4.9 mmol/L (3.5-5.1); RBC 3.77 m/uL (4.30-5.90); RDW 16.2 % (11.5-15.5); Sodium 141 mmol/L (137-145); Total Bilirubin 0.3 mg/dL (0.2-1.3); Total Protein 5.6 g/dL (6.3-8.2)
[2017-11-22] MEDS ORDERED: ONDANSETRON 4 MG/2 ML VIAL IVP STA (12:23)
[2017-11-22] MEDS ORDERED: ONDANSETRON 4 MG/2 ML VIAL IVP PRN (12:29)
[2017-11-22] MEDS ORDERED: ACETAMINOPHEN TAB 325 MG TAB PO PRN (12:29)
[2017-11-22] MEDS ORDERED: LORazepam 2 MG/ML INJ IV PRN ×4 (12:29→13:24)
[2017-11-22] MEDS ORDERED: Acetaminophen-Codeine 300-30mg TAB PO PRN (12:56)
[2017-11-22] MEDS ORDERED: SODIUM CHLORIDE 0.9% 500 ML IV ONE (13:44)
--- NOTE | 2017-11-22 13:46 | P.HPIM ---
History of Present Illness H&P Date: 11/22/17 Chief Complaint: abdominal pain 47-year-old male who presented to the emergency room with a chief complaint of abdominal pain. He reports nausea yesterday but denies vomiting. The patient presented to the emergency room this morning but was discharged home and returned this afternoon with increased pain. The patient has had numerous hospitalizations this year secondary to pancreatitis. The patient was just discharged from the hospital on 11/14/2017. This is the patients 35th visit to the hospital this year. The patient has a history of alcohol abuse but over the past few hospitalizations he has denied alcohol use and stated he had not consumed alcohol since , even though he was positive for ETOH during his admission on 10/20/2017. The patient does admit to alcohol use at this admission. He states he was drinking rum and coke yesterday. Alcohol level this morning was 141 during previous ER visit. Repeat level is <10. The patient has a history of pancreatitis secondary to alcohol abuse, gastroesophageal reflux disease, hyperlipidemia, and urinary retention. He has been instructed to straight cath 3-4 times a day at home, but patient states he has only been doing this 1 or 2 times. He has was a history of anxiety and depression. He is a current cigarette smoker and smokes 2 packs per day. In October 2017, patient EGD revealing mild duodenitis involving the duodenal bulb and second part of the duodenum most likely related to pancreatitis. 2 superficial erosions at the GE junction consistent with LA grade B reflux esophagitis. Laboratory results reveal white count of 10.0. Hemoglobin 11.4. Platelet count 476. Sodium 141. Potassium 4.9. BUN 5. Creatinine 0.58. Glucose 106. AST 72. ALT 46. Alkaline phosphatase 259. Amylase 108. Lipase 1446. Patient seen and examined in the ER. He is currently awaiting bed on medical floor. He continues to complain of generalized abdominal pain. Denies nausea or vomiting currently. Discussed patients drinking with patient and asked if he is willing to undergo treatment or rehab for his alcoholism. Patient adamantly refusing and states "I am going to quit this time. I will do it on my own. I dont need help". Review of Systems GENERAL: Patient denies fever. Denies chills. EYES: Denies blurred vision. Denies vision changes. Denies eye pain. EARS, NOSE, MOUTH, & THROAT: Denies headache. Denies sore throat. Denies ear pain. RESPIRATORY: Denies cough. Denies shortness of breath. Denies sputum production. Denies hemoptysis. CARDIOVASCULAR: Denies chest pain or pressure. Denies palpitations. Denies arrhythmias. GASTROINTESTINAL: Positive for abdominal pain. Positive for nausea. Denies diarrhea. Denies constipation. Denies heartburn. Denies blood in the stool. GENITOURINARY: Denies urinary frequency. Denies burning. Denies dysuria. Denies cloudy urine. Denies blood in the urine. MUSCULOSKELETAL: Denies myalgias. Denies joint swelling. Denies decreased range of motion beyond patients baseline. INTEGUMENTARY: Denies pruitis. Denies rash. PSYCHIATRIC: Denies suicidal or homicial ideations. ENDOCRINE: Denies weight change. Denies polydipsia. Denies polyuria. HEMATOLOGIC: Denies bleeding disorders. Past Medical History Past Medical History: GERD/Reflux, GI Bleed, Hyperlipidemia, Liver Disease, Pneumonia, Prostate Disorder Additional Past Medical History / Comment(s): ETOH ABUSE RECURRANT PANCREATITIS , ALCOHOLIC HEPATITIS, NEUROPATHY BILATERAL FEET SINCE BACK SURGERY, hx of CHRONIC URINARY RETENTION DUE TO BACK PROBLEMS-SELF CATHS, CHRONIC L HYDROURETERONEPHROSIS D/T REFLUX, CHRONIC LOW BACK PAIN (HAS STIMULATOR THAT PT STATES DOES NOT WORK), HEMATEMESIS, CHRONIC LOOSE STOOLS. History of Any Multi-Drug Resistant Organisms: None Reported Past Surgical History: Back Surgery, Cholecystectomy, Orthopedic Surgery Additional Past Surgical History / Comment(s): EGDS, colonoscopy, bronchoscopy, BACK surgeries with TITANIUM PLATES MILTON and CAGES, KIDNEY STONES removed per pt, SPINAL CORD STIMULATOR, ISMAEL KNEE ARTHROSCOPIES, PINKY FINGER RT HAND REATTATCHED Past Anesthesia/Blood Transfusion Reactions: No Reported Reaction Past Psychological History: Anxiety, Depression Additional Psychological History / Comment(s): PT LIVES AT HOME WITH in a 2 story home that has 3 porch steps/7 steps to 2nd floor.. IS DISABLED WORKED [employer] IN PAST. NO SERVICE.. occasionally uses either cane, walker or w/c also has shower chair and raised toilet seat. He does not drive, his can drive. Smoking Status: Current every day smoker Past Alcohol Use History: Abuse, Heavy Additional Past Alcohol Use History / Comment(s): Smokes 2 packs per day; ETOH ABUSE Past Drug Use History: None Reported, Marijuana Additional Drug Use History / Comment(s): Patient reports that he has not used Marijuana in over 13 months. - Past Family History Father Family Medical History: Diabetes Mellitus Additional Family Medical History / Comment(s): Mother Family Medical History: Dementia, Hyperlipidemia, Hypertension Additional Family Medical History / Comment(s): Mother is living. Medications and Allergies Home Medications Medication Instructions Recorded Confirmed Type Folic Acid 1 mg PO DAILY #30 tablet 07/15/15 11/22/17 Rx Atorvastatin [Lipitor] 10 mg PO HS 09/27/15 11/22/17 History Albuterol Inhaler [Ventolin Hfa 2 puff INHALATION RT-Q4H PRN 03/01/17 11/22/17 History Inhaler] traZODone HCL 50 mg PO HS 04/04/17 11/22/17 History Omeprazole [PriLOSEC] 40 mg PO BID #60 capsule. 05/16/17 11/22/17 Rx Gabapentin [Neurontin] 400 mg PO TID 07/18/17 11/22/17 History cloNIDine HCL [Catapres] 0.1 mg PO TID #30 tab 08/23/17 11/22/17 Rx Acetaminophen-Codeine 300-30mg 1 tab PO TID PRN 09/10/17 11/22/17 History [Tylenol w/codeine #3] DULoxetine HCL [Cymbalta] 60 mg PO DAILY 09/18/17 11/22/17 History Magnesium Oxide [Mag-Ox] 200 mg PO DAILY 09/18/17 11/22/17 History Tamsulosin HCl [Flomax] 0.4 mg PO DAILY 09/18/17 11/22/17 History Diazepam [Valium] 5 mg PO TID 10/20/17 11/22/17 History Lipase/Protease/Amylase [Rebel Belcher 2 cap PO TID-W/MEALS 10/20/17 11/22/17 History 24,000 Units Capsule] buPROPion XL [Wellbutrin XL] 150 mg PO DAILY 10/20/17 11/22/17 History Allergies Allergy/AdvReac Type Severity Reaction Status Date / Time No Known Allergies Allergy Verified 11/22/17 11:22 Physical Exam Vitals: Vital Signs Temp Pulse Resp BP Pulse Ox 11/22/17 12:33 98.4 F 71 16 149/88 100 11/22/17 10:51 98.4 F 86 18 136/85 99 Intake and Output 11/21/17 11/22/17 11/22/17 22:59 06:59 14:59 Other: Weight 63.957 kg GENERAL: This is a 47-year-old male in no apparent distress at the time of examination. Pleasant and cooperative. HEENT: Head is atraumatic, normocephalic. Pupils are equal, round, and reactive to light. Sclerae anicteric. Conjunctivae are clear. Mucus membranes of the mouth are moist. Neck is supple. RESPIRATORY: Clear to ausculation. No wheezes, rales, or rhonchi. No use of accessory muscles. Patient maintaining oxygen saturation greater than 92%. No chest wall tenderness is noted on palpation or with deep breathing. CARDIOVASCULAR: Regular rate and rhythm. S1 and S2 noted. No systolic or diastolic murmur auscultated. No JVD noted. No S3 or S4 noted. GASTROINTESTINAL: Pain and tenderness noted upon palpation. No distention noted. Abdomen soft and round. Normal active bowel sounds auscultated x 4 quadrants. INTEGUMENTARY: No cyanosis. No jaundice. No rashes noted. No cellulitis noted. EXTREMITIES: 2+ peripheral pulses. No evidence of peripheral edema. No calf tenderness noted. NEUROLOGIC: Cranial nerves II-XII intact. PSYCHIATRIC: Awake, alert, and oriented X 3. Flat affect. Results CBC & Chem 7: 11/22/17 11:45 11/22/17 11:45 Labs: Abnormal Lab Results - Last 24 Hours (Table) 11/22/17 11/22/17 Range/Units 11:45 11:45 RBC 3.77 L (4.30-5.90) m/uL Hgb 11.4 L (13.0-17.5) gm/dL Hct 35.3 L (39.0-53.0) % RDW 16.2 H (11.5-15.5) % Plt Count 476 H (150-450) k/uL Neutrophils # 8.3 H (1.3-7.7) k/uL Lymphocytes # 0.9 L (1.0-4.8) k/uL BUN 5 L (9-20) mg/dL Creatinine 0.58 L (0.66-1.25) mg/dL Glucose 106 H (74-99) mg/dL AST 72 H (17-59) U/L Alkaline Phosphatase 259 H (38-126) U/L Total Protein 5.6 L (6.3-8.2) g/dL Albumin 2.9 L (3.5-5.0) g/dL Lipase 1446 H (23-300) U/L Assessment and Plan Plan: ASSESSMENT: Acute on chronic alcoholic pancreatitis, patient admits to drinking ETOH 2017 Alcohol abuse, patient continues to drink with last drink 11/21/2017 Recent EGD, October 2017, revealing mild duodenitis involving the duodenal bulb and second part of the duodenum most likely related to pancreatitis. 2 superficial erosions at the GE junction consistent with LA grade B reflux esophagitis. Chronic left hydroureteronephrosis secondary to urinary reflux from bladder into left ureter Urinary retention secondary to atonic bladder, patient instructed to self cath frequently Multiple hospitalizations secondary to abdominal pain and pancreatitis, this is patients 35th visit to the hospital in 2018 Chronic low back pain Generalized anxiety disorder Depression Nicotine dependence, patient is a current cigarette smoker, patient reports two packs per day PLAN: Consult GI. Await recommendations and input Continue IV fluids at 150cc/hr. 500cc bolus Clear liquid diet CIWA protocol Patient may resume his home medications of Tylenol #3 for pain. Also Toradol PRN. Daily pancreatic enzymes Home meds as appropriate Monitor labs GI prophylaxis: Protonix 40 mg IV daily DVT prophylaxis: MARGA hose to bilateral lower extremities Monitor vital signs and address as appropriate Discharge planning: Patient to return home when stable Further recommendations pending patient's course Nurse practitioner note has been reviewed by physician. Signing provider agrees with the documented findings, assessment, and plan of care.
[2017-11-22] MEDS: SODIUM CHLORIDE 0.9% 1,000 ML IV SCH ×2 (14:52→21:23)
[2017-11-22] MEDS: NICOTINE 21MG/24HR PATCH TRANSDERM SCH (14:55)
[2017-11-22] MEDS: cloNIDine HCL 0.1 MG TAB PO SCH ×2 (16:14→21:24)
[2017-11-22] MEDS: GABAPENTIN 400 MG CAP PO SCH ×2 (16:14→21:24)
[2017-11-22] MEDS: DIAZEPAM 5 MG TAB PO SCH ×2 (16:14→21:25)
[2017-11-22] MEDS: ALBUTEROL NEBULIZED 2.5 MG/3 ML INHALATION PRN ×2 (16:53→20:23)
[2017-11-22] MEDS: LIPASE 5,000/PROTEASE 17,000/AMYLASE 27,0000 PO SCH (18:21)
[2017-11-22] MEDS: KETOROLAC 30 MG/ML 1 ML VIAL IVP PRN (18:22)
[2017-11-22] MEDS ORDERED: NON-FORMULARY DRUG (Omeprazole 40 MG) PO SCH (21:00)
[2017-11-22] MEDS ORDERED: traZODone HCL 50 MG TAB PO SCH (21:00)
[2017-11-22] MEDS ORDERED: ATORVASTATIN 10 MG TAB PO SCH (21:00)
[2017-11-23] MEDS: KETOROLAC 30 MG/ML 1 ML VIAL IVP PRN ×2 (02:13→08:11)
[2017-11-23] MEDS: SODIUM CHLORIDE 0.9% 1,000 ML IV SCH ×2 (03:44→08:09)
[2017-11-23 04:47] LABS: Appearance,Urine Clear (Clear); Bilirubin,Urine Negative (Negative); Blood,Urine Negative (Negative); Budding Yeast,Urine Many /hpf; Color,Urine Light Yellow; Glucose,Urine (UA) Negative (Negative); Hyphae Yeast, Urine Occasional /hpf; Ketones,Urine Negative (Negative); Leukocyte Esterase,Urine Small (Negative); Nitrite,Urine Negative (Negative); PH, Urine 5.5 (5.0-8.0); Protein,Urine Negative (Negative); Specific Gravity,Urine 1.005 (1.001-1.035); Urobilinogen,Urine <2.0 mg/dL (<2.0); WBC,Urine 2 /hpf (0-5)
[2017-11-23 06:00] VITALS: RESP 18
[2017-11-23] MEDS: ALBUTEROL NEBULIZED 2.5 MG/3 ML INHALATION PRN (07:38)
[2017-11-23 08:00] LABS: ALT 35 U/L (21-72); AST 24 U/L (17-59); Albumin 2.3 g/dL (3.5-5.0); Alkaline Phosphatase 200 U/L (38-126); Amylase 159 U/L (30-110); Anion Gap 8 mmol/L; Blood Urea Nitrogen 4 mg/dL (9-20); Calcium 8.2 mg/dL (8.4-10.2); Carbon Dioxide 22 mmol/L (22-30); Chloride 110 mmol/L (98-107); Glucose 97 mg/dL (74-99); Lipase 1794 U/L (23-300); Potassium 3.8 mmol/L (3.5-5.1); Sodium 140 mmol/L (137-145); Total Bilirubin 0.3 mg/dL (0.2-1.3); Total Protein 4.8 g/dL (6.3-8.2)
[2017-11-23] MEDS: NICOTINE 21MG/24HR PATCH TRANSDERM SCH (08:08)
[2017-11-23] MEDS: GABAPENTIN 400 MG CAP PO SCH (08:08)
[2017-11-23] MEDS: LIPASE 5,000/PROTEASE 17,000/AMYLASE 27,0000 PO SCH ×2 (08:08→12:46)
[2017-11-23] MEDS: DIAZEPAM 5 MG TAB PO SCH (08:08)
[2017-11-23] MEDS: cloNIDine HCL 0.1 MG TAB PO SCH (08:09)
--- NOTE | 2017-11-23 08:48 | P.PN ---
Subjective Progress Note Date: 11/23/17 47-year-old male who presented to the emergency room with a chief complaint of abdominal pain. He reports nausea yesterday but denies vomiting. The patient presented to the emergency room this morning but was discharged home and returned this afternoon with increased pain. The patient has had numerous hospitalizations this year secondary to pancreatitis. The patient was just discharged from the hospital on 11/14/2017. This is the patients 35th visit to the hospital this year. The patient has a history of alcohol abuse but over the past few hospitalizations he has denied alcohol use and stated he had not consumed alcohol since memorial day, even though he was positive for ETOH during his admission on 10/20/2017. The patient does admit to alcohol use at this admission. He states he was drinking rum and coke yesterday. Alcohol level this morning was 141 during previous ER visit. Repeat level is <10. The patient has a history of pancreatitis secondary to alcohol abuse, gastroesophageal reflux disease, hyperlipidemia, and urinary retention. He has been instructed to straight cath 3-4 times a day at home, but patient states he has only been doing this 1 or 2 times. He has was a history of anxiety and depression. He is a current cigarette smoker and smokes 2 packs per day. In October 2017, patient EGD revealing mild duodenitis involving the duodenal bulb and second part of the duodenum most likely related to pancreatitis. 2 superficial erosions at the GE junction consistent with LA grade B reflux esophagitis. Laboratory results reveal white count of 10.0. Hemoglobin 11.4. Platelet count 476. Sodium 141. Potassium 4.9. BUN 5. Creatinine 0.58. Glucose 106. AST 72. ALT 46. Alkaline phosphatase 259. Amylase 108. Lipase 1446. Patient seen and examined in the ER. He is currently awaiting bed on medical floor. He continues to complain of generalized abdominal pain. Denies nausea or vomiting currently. Discussed patients drinking with patient and asked if he is willing to undergo treatment or rehab for his alcoholism. Patient adamantly refusing and states "I am going to quit this time. I will do it on my own. I dont need help". 11/23/2017 Patient seen and examined at the bedside. Patient states his abdominal pain has improved. He is tolerating PO intake. Denies nausea or vomiting. He states he took his nebulizer treatment this morning and it made him sick to his stomach, but it has since resolved. Amylase 159. Lipase 1794. IV fluids continue to infuse at 150cc/hr. Patient states he does not want to be discharged today and prefers to stay until tomorrow. Objective - Vital Signs Vital signs: Vital Signs Temp 98.2 F 11/23/17 05:59 Pulse 76 11/23/17 07:54 Resp 18 11/23/17 05:59 BP 124/84 11/23/17 05:59 Pulse Ox 97 11/23/17 05:59 Intake & Output 11/22/17 11/23/17 11/23/17 18:59 06:59 18:59 Intake Total 1000 2199 Output Total 600 Balance 1000 1599 Weight 63.957 kg Intake: Amount of Fluid Infused ( 1000 ml) Intake, IV Titration 2199 Amount Sodium Chloride 0.9% 1, 1200 000 ml @ 150 mls/hr IV . Q6H40M [facility] Rx#:[id number] Sodium Chloride 0.9% 500 999 ml @ 999 mls/hr IV .Q31M [facility] Rx#:[id number] Output: Urine 600 Other: Voiding Method Toilet Toilet Self-Catheterization Self-Catheterization - Exam GENERAL: This is a 47-year-old male in no apparent distress at the time of examination. Pleasant and cooperative. HEENT: Head is atraumatic, normocephalic. Pupils are equal, round, and reactive to light. Sclerae anicteric. Conjunctivae are clear. Mucus membranes of the mouth are moist. Neck is supple. RESPIRATORY: Clear to ausculation. No wheezes, rales, or rhonchi. No use of accessory muscles. Patient maintaining oxygen saturation greater than 92%. No chest wall tenderness is noted on palpation or with deep breathing. CARDIOVASCULAR: Regular rate and rhythm. S1 and S2 noted. No systolic or diastolic murmur auscultated. No JVD noted. No S3 or S4 noted. GASTROINTESTINAL: No distention noted. Abdomen soft and round. Normal active bowel sounds auscultated x 4 quadrants. INTEGUMENTARY: No cyanosis. No jaundice. No rashes noted. No cellulitis noted. EXTREMITIES: 2+ peripheral pulses. No evidence of peripheral edema. No calf tenderness noted. NEUROLOGIC: Cranial nerves II-XII intact. PSYCHIATRIC: Awake, alert, and oriented X 3. Flat affect. - Labs CBC & Chem 7: 18 11:45 11/23/17 07:25 Labs: Abnormal Lab Results - Last 24 Hours (Table) 11/22/17 11/22/17 11/23/17 Range/Units 11:45 11:45 02:30 RBC 3.77 L (4.30-5.90) m/uL Hgb 11.4 L (13.0-17.5) gm/dL Hct 35.3 L (39.0-53.0) % RDW 16.2 H (11.5-15.5) % Plt Count 476 H (150-450) k/uL Neutrophils # 8.3 H (1.3-7.7) k/uL Lymphocytes # 0.9 L (1.0-4.8) k/uL Chloride (98-107) mmol/L BUN 5 L (9-20) mg/dL Creatinine 0.58 L (0.66-1.25) mg/dL Glucose 106 H (74-99) mg/dL Calcium (8.4-10.2) mg/dL AST 72 H (17-59) U/L Alkaline Phosphatase 259 H (38-126) U/L Total Protein 5.6 L (6.3-8.2) g/dL Albumin 2.9 L (3.5-5.0) g/dL Amylase (30-110) U/L Lipase 1446 H (23-300) U/L Ur Leukocyte Esterase Small H (Negative) Urine Yeast (Budding) Many H (None) /hpf 11/23/17 Range/Units 07:25 RBC (4.30-5.90) m/uL Hgb (13.0-17.5) gm/dL Hct (39.0-53.0) % RDW (11.5-15.5) % Plt Count (150-450) k/uL Neutrophils # (1.3-7.7) k/uL Lymphocytes # (1.0-4.8) k/uL Chloride 110 H (98-107) mmol/L BUN 4 L (9-20) mg/dL Creatinine 0.48 L (0.66-1.25) mg/dL Glucose (74-99) mg/dL Calcium 8.2 L (8.4-10.2) mg/dL AST (17-59) U/L Alkaline Phosphatase 200 H (38-126) U/L Total Protein 4.8 L (6.3-8.2) g/dL Albumin 2.3 L (3.5-5.0) g/dL Amylase 159 H (30-110) U/L Lipase 1794 H (23-300) U/L Ur Leukocyte Esterase (Negative) Urine Yeast (Budding) (None) /hpf Assessment and Plan Plan: ASSESSMENT: Acute on chronic alcoholic pancreatitis, patient admits to drinking ETOH 2017 Alcohol abuse, patient continues to drink with last drink 11/21/2017 Recent EGD, October 2017, revealing mild duodenitis involving the duodenal bulb and second part of the duodenum most likely related to pancreatitis. 2 superficial erosions at the GE junction consistent with LA grade B reflux esophagitis. Chronic left hydroureteronephrosis secondary to urinary reflux from bladder into left ureter Urinary retention secondary to atonic bladder, patient instructed to self cath frequently Multiple hospitalizations secondary to abdominal pain and pancreatitis, this is patients 35th visit to the hospital in 2018 Chronic low back pain Generalized anxiety disorder Depression Nicotine dependence, patient is a current cigarette smoker, patient reports two packs per day PLAN: GI on consult. Await recommendations and input Continue IV fluids at 150cc/hr CIWA protocol Patient may resume his home medications of Tylenol #3 for pain. Also Toradol PRN. Daily pancreatic enzymes Home meds as appropriate Monitor labs GI prophylaxis: Protonix 40 mg IV daily DVT prophylaxis: MARGA hose to bilateral lower extremities Monitor vital signs and address as appropriate Discharge planning: Patient to return home when stable Further recommendations pending patient's course Nurse practitioner note has been reviewed by physician. Signing provider agrees with the documented findings, assessment, and plan of care.
[2017-11-23] MEDS ORDERED: PANTOPRAZOLE 40 MG/10 ML VIAL IV SCH (09:00)
[2017-11-23] MEDS ORDERED: DULoxetine HCL 30 MG CAPSULE.DR PO SCH (09:00)
[2017-11-23] MEDS ORDERED: buPROPion XL 150 MG TAB.ER.24H PO SCH (09:00)
[2017-11-23] MEDS ORDERED: MAGNESIUM OXIDE 400 MG TAB PO SCH (09:00)
[2017-11-23] MEDS ORDERED: TAMSULOSIN 0.4 MG CAP.ER.24H PO SCH (09:00)
[2017-11-23] MEDS ORDERED: FOLIC ACID 1 MG TAB PO SCH (12:00)
--- NOTE | 2017-11-23 13:05 | P.DS ---
Providers Date of admission: 11/22/17 12:47 Expected date of discharge: 11/23/17 Attending physician: Kelvin Trejo Consults: 11/22/17 13:13 Consult Physician Routine Consulting Provider: Phillip Martinez Consult Reason/Comments: pancreatitis Do you want consulting provider notified?: Yes Primary care physician: [facility] Course: 47-year-old male who presented to the emergency room with a chief complaint of abdominal pain. He reports nausea yesterday but denies vomiting. The patient presented to the emergency room this morning but was discharged home and returned this afternoon with increased pain. The patient has had numerous hospitalizations this year secondary to pancreatitis. The patient was just discharged from the hospital on 11/14/2017. This is the patients 35th visit to the hospital this year. The patient has a history of alcohol abuse but over the past few hospitalizations he has denied alcohol use and stated he had not consumed alcohol since , even though he was positive for ETOH during his admission on 10/20/2017. The patient does admit to alcohol use at this admission. He states he was drinking rum and coke yesterday. Alcohol level this morning was 141 during previous ER visit. Repeat level is <10. The patient has a history of pancreatitis secondary to alcohol abuse, gastroesophageal reflux disease, hyperlipidemia, and urinary retention. He has been instructed to straight cath 3-4 times a day at home, but patient states he has only been doing this 1 or 2 times. He has was a history of anxiety and depression. He is a current cigarette smoker and smokes 2 packs per day. In October 2017, patient EGD revealing mild duodenitis involving the duodenal bulb and second part of the duodenum most likely related to pancreatitis. 2 superficial erosions at the GE junction consistent with LA grade B reflux esophagitis. Laboratory results reveal white count of 10.0. Hemoglobin 11.4. Platelet count 476. Sodium 141. Potassium 4.9. BUN 5. Creatinine 0.58. Glucose 106. AST 72. ALT 46. Alkaline phosphatase 259. Amylase 108. Lipase 1446. Patient seen and examined in the ER. He is currently awaiting bed on medical floor. He continues to complain of generalized abdominal pain. Denies nausea or vomiting currently. Discussed patients drinking with patient and asked if he is willing to undergo treatment or rehab for his alcoholism. Patient adamantly refusing and states "I am going to quit this time. I will do it on my own. I dont need help". The patient was placed on IV fluids and also received IV boluses. His pain has improved. He was started on a clear liquid diet and advanced as tolerated. Amylase and lipase are slightly elevated from day of admission at 159 and 1794 but patient is clinically improved. He was deemed stable for discharge after dinner per Dr. Trejo. He is to follow up with Dr. Leo on Sunday and repeat amylase and lipase at that time. Strongly encouraged the patient to avoid alcohol use. Discharge Diagnosis: Acute on chronic alcoholic pancreatitis, patient admits to drinking ETOH 2017 Alcohol abuse, patient continues to drink with last drink 11/21/2017 Recent EGD, October 2017, revealing mild duodenitis involving the duodenal bulb and second part of the duodenum most likely related to pancreatitis. 2 superficial erosions at the GE junction consistent with LA grade B reflux esophagitis. Chronic left hydroureteronephrosis secondary to urinary reflux from bladder into left ureter Urinary retention secondary to atonic bladder, patient instructed to self cath frequently Multiple hospitalizations secondary to abdominal pain and pancreatitis, this is patients 35th visit to the hospital in 2018 Chronic low back pain Generalized anxiety disorder Depression Nicotine dependence, patient is a current cigarette smoker, patient reports two packs per day Nurse practitioner note has been reviewed by physician. Signing provider agrees with the documented findings, assessment, and plan of care. Patient Condition at Discharge: Stable Plan - Discharge Summary Discharge Rx Participant: No New Discharge Prescriptions: Continue Folic Acid 1 mg PO DAILY #30 tablet Atorvastatin [Lipitor] 10 mg PO HS Albuterol Inhaler [Ventolin Hfa Inhaler] 2 puff INHALATION RT-Q4H PRN PRN Reason: Shortness Of Breath traZODone HCL 50 mg PO HS Omeprazole [PriLOSEC] 40 mg PO BID #60 capsule. Gabapentin [Neurontin] 400 mg PO TID cloNIDine HCL [Catapres] 0.1 mg PO TID #30 tab Acetaminophen-Codeine 300-30mg [Tylenol w/codeine #3] 1 tab PO TID PRN PRN Reason: pain DULoxetine HCL [Cymbalta] 60 mg PO DAILY Magnesium Oxide [Mag-Ox] 200 mg PO DAILY Tamsulosin HCl [Flomax] 0.4 mg PO DAILY buPROPion XL [Wellbutrin XL] 150 mg PO DAILY Diazepam [Valium] 5 mg PO TID Lipase/Protease/Amylase [Rebel Belcher 24,000 Units Capsule] 2 cap PO TID-W/MEALS Discharge Medication List Folic Acid 1 mg PO DAILY #30 tablet 07/15/15 [Rx] Atorvastatin [Lipitor] 10 mg PO HS 09/27/15 [History] Albuterol Inhaler [Ventolin Hfa Inhaler] 2 puff INHALATION RT-Q4H PRN 03/01/17 [ History] traZODone HCL 50 mg PO HS 04/04/17 [History] Omeprazole [PriLOSEC] 40 mg PO BID #60 capsule. 05/16/17 [Rx] Gabapentin [Neurontin] 400 mg PO TID 07/18/17 [History] cloNIDine HCL [Catapres] 0.1 mg PO TID #30 tab 08/23/17 [Rx] Acetaminophen-Codeine 300-30mg [Tylenol w/codeine #3] 1 tab PO TID PRN 09/10/17 [History] DULoxetine HCL [Cymbalta] 60 mg PO DAILY 09/18/17 [History] Magnesium Oxide [Mag-Ox] 200 mg PO DAILY 09/18/17 [History] Tamsulosin HCl [Flomax] 0.4 mg PO DAILY 09/18/17 [History] Diazepam [Valium] 5 mg PO TID 10/20/17 [History] Lipase/Protease/Amylase [Rebel Belcher 24,000 Units Capsule] 2 cap PO TID-W/MEALS 07/08 [History] buPROPion XL [Wellbutrin XL] 150 mg PO DAILY 10/20/17 [History] Follow up Appointment(s)/Referral(s): Phillip Martinez MD [STAFF PHYSICIAN] - 1 Week Carrillo Leo Jr, DO [Primary Care Provider] - 11/26/17 (please schedule appt for patient on Sunday) Activity/Diet/Wound Care/Special Instructions: Repeat Amylase and Lipase at follow up visit Sunday with Dr. Leo Discharge Disposition: HOME SELF-CARE
[2017-11-23 14:42] VITALS: BP 129/87; PULSE 89; TEMP 98.7
== END 2017-11-23 14:53 | disposition home or self-care (01) | DRG 439 ==
LOC: EC 10:37 → 4MS4W 12:47
PROVIDERS: ADMIT Family Medicine; ATTEND Family Medicine
DX: K85.20 Alcohol induced acute pancreatitis without necrosis or infection (principal); N13.30 Unspecified hydronephrosis; K86.0 Alcohol-induced chronic pancreatitis; E78.5 Hyperlipidemia, unspecified; F10.20 Alcohol dependence, uncomplicated; F17.210 Nicotine dependence, cigarettes, uncomplicated; F32.9 Major depressive disorder, single episode, unspecified; F41.1 Generalized anxiety disorder; G89.29 Other chronic pain; K21.0 Gastro-esophageal reflux disease with esophagitis; K29.80 Duodenitis without bleeding; N31.2 Flaccid neuropathic bladder, not elsewhere classified; Z79.899 Other long term (current) drug therapy; Z82.49 Family history of ischemic heart disease and other diseases of the circulatory system; Z83.3 Family history of diabetes mellitus; Z87.442 Personal history of urinary calculi; Y90.6 Blood alcohol level of 120-199 mg/100 ml; Z90.49 Acquired absence of other specified parts of digestive tract; Z79.891 Long term (current) use of opiate analgesic; M54.5 Low back pain
CPT/HCPCS: 36415; 74018; 80053; 80320; 81001; 82150; 83690; 85025; 94640; 96361; 96374; 96375; 99284

== ENCOUNTER 2017-11-23 23:21 | Emergency (ER) | payer MEDICARE, OTHER ==
[2017-11-23 23:25] VITALS: RESP 18; TEMP 98.6
[2017-11-23] MEDS ORDERED: ONDANSETRON 4 MG/2 ML VIAL IVP STA (23:47)
[2017-11-23] MEDS ORDERED: SODIUM CHLORIDE 0.9% 1,000 ML IV STA (23:47)
[2017-11-23] MEDS ORDERED: KETOROLAC 30 MG/ML 1 ML VIAL IVP STA (23:49)
--- NOTE | 2017-11-23 23:52 | ED ---
Abdominal Pain HPI - General Source: patient, RN notes reviewed Mode of arrival: ambulatory Limitations: no limitations <Mercedes Lopez - Last Filed: 11/24/17 03:30> <Grayson Cervantes - Last Filed: 11/24/17 05:08> - General Chief Complaint: Abdominal Pain Stated Complaint: abd pain Time Seen by Provider: 11/23/17 23:40 - History of Present Illness Initial Comments: This is a 47-year-old male with history of chronic pancreatitis who presents to the emergency department with chief complaint of abdominal pain. Patient states that he was discharged from the hospital this afternoon. He states that he was admitted for acute on chronic pancreatitis. Patient states that he did not feel well prior to discharge but was discharged home anyway. He states that since being discharged home, his pain has increased. He states that he continues to have nausea and vomiting. He states that he took the Zofran at 5 PM. Denies any fevers or chills, chest pain or shortness of breath, diarrhea or constipation. (Mercedes Lopez) - Related Data Home Medications Medication Instructions Recorded Confirmed Atorvastatin [Lipitor] 10 mg PO HS 09/27/15 11/23/17 Albuterol Inhaler [Ventolin Hfa 2 puff INHALATION RT-Q4H PRN 03/01/17 11/23/17 Inhaler] traZODone HCL 50 mg PO HS 04/04/17 11/23/17 Gabapentin [Neurontin] 400 mg PO TID 07/18/17 11/23/17 Acetaminophen-Codeine 300-30mg 1 tab PO TID PRN 09/10/17 11/23/17 [Tylenol w/codeine #3] DULoxetine HCL [Cymbalta] 60 mg PO DAILY 09/18/17 11/23/17 Magnesium Oxide [Mag-Ox] 200 mg PO DAILY 09/18/17 11/23/17 Tamsulosin HCl [Flomax] 0.4 mg PO DAILY 09/18/17 11/23/17 Diazepam [Valium] 5 mg PO TID 10/20/17 11/23/17 Lipase/Protease/Amylase [Creon Dr 2 cap PO TID-W/MEALS 10/20/17 11/23/17 24,000 Units Capsule] buPROPion XL [Wellbutrin XL] 150 mg PO DAILY 10/20/17 11/23/17 Previous Rx's Medication Instructions Recorded Folic Acid 1 mg PO DAILY #30 tablet 07/15/15 Omeprazole [PriLOSEC] 40 mg PO BID #60 capsule. 05/16/17 cloNIDine HCL [Catapres] 0.1 mg PO TID #30 tab 08/23/17 Allergies Allergy/AdvReac Type Severity Reaction Status Date / Time No Known Allergies Allergy Verified 11/23/17 23:30 Review of Systems ROS Other: All systems not noted in ROS Statement are negative. <Mercedes Lopez - Last Filed: 11/24/17 03:30> ROS Other: All systems not noted in ROS Statement are negative. <Grayson Cervantes - Last Filed: 11/24/17 05:08> ROS Statement: Those systems with pertinent positive or pertinent negative responses have been documented in the HPI. Past Medical History Past Medical History: GERD/Reflux, GI Bleed, Hyperlipidemia, Liver Disease, Pneumonia, Prostate Disorder Additional Past Medical History / Comment(s): ETOH ABUSE RECURRANT PANCREATITIS , ALCOHOLIC HEPATITIS, NEUROPATHY BILATERAL FEET SINCE BACK SURGERY, hx of CHRONIC URINARY RETENTION DUE TO BACK PROBLEMS-SELF CATHS, CHRONIC L HYDROURETERONEPHROSIS D/T REFLUX, CHRONIC LOW BACK PAIN (HAS STIMULATOR THAT PT STATES DOES NOT WORK), HEMATEMESIS, CHRONIC LOOSE STOOLS. History of Any Multi-Drug Resistant Organisms: None Reported Past Surgical History: Back Surgery, Cholecystectomy, Orthopedic Surgery Additional Past Surgical History / Comment(s): EGDS, colonoscopy, bronchoscopy, BACK surgeries with TITANIUM PLATES MILTON and CAGES, KIDNEY STONES removed per pt, SPINAL CORD STIMULATOR, ISMAEL KNEE ARTHROSCOPIES, PINKY FINGER RT HAND REATTATCHED Past Anesthesia/Blood Transfusion Reactions: No Reported Reaction Past Psychological History: Anxiety, Depression Smoking Status: Current every day smoker Past Alcohol Use History: None Reported Past Drug Use History: Marijuana - Past Family History Father Family Medical History: Diabetes Mellitus Additional Family Medical History / Comment(s): Mother Family Medical History: Dementia, Hyperlipidemia, Hypertension Additional Family Medical History / Comment(s): Mother is living. <Mercedes Lopez - Last Filed: 11/24/17 03:30> General Exam Limitations: no limitations <Mercedes Lopez - Last Filed: 11/24/17 03:30> <Grayson Cervantes - Last Filed: 11/24/17 05:08> - General Exam Comments Initial Comments: General: Awake and alert, well-developed; in no apparent distress. HEENT: Head atraumatic, normocephalic. Pupils are equal, round and reactive to light. Extraocular movements intact. Oropharynx moist without erythema or exudate. Neck: Supple. Normal ROM. Cardiovascular: Regular rate and rhythm. No murmurs, rubs or gallops. Chest symmetrical. Respiratory: Lungs clear to auscultation bilaterally. No wheezes, rales or rhonchi. Normal respiratory effort with no use of accessory muscles. Abdomen: Soft, non-distended. Tenderness on palpation of the epigastric region with guarding. No rigidity or rebound. Normal bowel sounds in all 4 quadrants. Musculoskeletal: Normal ROM, no tenderness bilateral upper and lower extremities. Ambulating normally. Skin: [place], warm and dry without rashes or lesions. Neurological: Alert and oriented x3. CN II-XII grossly intact. Speech is fluent and answers are appropriate. No focal neuro deficits. Psychiatric: Normal mood and affect. No overt signs of depression or anxiety noted. (Merecdes Lopez) Course <Mercedes Lopez - Last Filed: 11/24/17 03:30> <Grayson Cervantes - Last Filed: 11/24/17 05:08> Vital Signs 11/23/17 11/24/17 11/24/17 23:23 02:31 04:26 Temperature 98.6 F Pulse Rate 81 81 78 Respiratory 18 18 18 Rate Blood Pressure 153/76 141/87 132/93 O2 Sat by Pulse 100 100 98 Oximetry - Reevaluation(s) Reevaluation #1: At this time, patient is resting comfortably in bed. He is receiving his second liter bolus of normal saline. This case was discussed with attending physician, Dr. Cervantes. He will take over this case at this time. 11/24/17 03:30 (Mercedes Lopez) Medical Decision Making - Lab Data Result diagrams: 11/24/17 00:15 11/23/17 00:15 <Mercedes Lopez - Last Filed: 11/24/17 03:30> - Lab Data Result diagrams: 11/24/17 00:15 11/23/17 00:15 <Grayson Cervantes Heriberto - Last Filed: 11/24/17 05:08> - Lab Data Lab Results 11/23/17 11/24/17 Range/Units 00:15 00:15 WBC 13.0 H (3.8-10.6) k/uL RBC 3.90 L (4.30-5.90) m/uL Hgb 11.7 L (13.0-17.5) gm/dL Hct 36.4 L (39.0-53.0) % MCV 93.2 (80.0-100.0) fL MCH 30.0 (25.0-35.0) pg MCHC 32.2 (31.0-37.0) g/dL RDW 16.0 H (11.5-15.5) % Plt Count 345 (150-450) k/uL Neutrophils % 89 % Lymphocytes % 6 % Monocytes % 4 % Eosinophils % 0 % Basophils % 0 % Neutrophils # 11.6 H (1.3-7.7) k/uL Lymphocytes # 0.7 L (1.0-4.8) k/uL Monocytes # 0.6 (0-1.0) k/uL Eosinophils # 0.1 (0-0.7) k/uL Basophils # 0.0 (0-0.2) k/uL Anisocytosis Slight Sodium 137 (137-145) mmol/L Potassium 3.9 (3.5-5.1) mmol/L Chloride 105 (98-107) mmol/L Carbon Dioxide 23 (22-30) mmol/L Anion Gap 9 mmol/L BUN 6 L (9-20) mg/dL Creatinine 0.40 L (0.66-1.25) mg/dL Est GFR (CKD-EPI)AfAm >90 (>60 ml/min/1.73 sqM) Est GFR (CKD-EPI)NonAf >90 (>60 ml/min/1.73 sqM) Glucose 106 H (74-99) mg/dL Calcium 8.7 (8.4-10.2) mg/dL Total Bilirubin 0.4 (0.2-1.3) mg/dL AST 24 (17-59) U/L ALT 34 (21-72) U/L Alkaline Phosphatase 241 H (38-126) U/L Total Protein 5.7 L (6.3-8.2) g/dL Albumin 2.9 L (3.5-5.0) g/dL Amylase 209 H (30-110) U/L Lipase 2150 H (23-300) U/L Serum Alcohol <10 mg/dL Disposition <Mercedes Lopez - Last Filed: 11/24/17 03:30> Is patient prescribed a controlled substance at d/c from ED?: No <Grayson Cervantes - Last Filed: 11/24/17 05:08> Clinical Impression: Acute pancreatitis, History of alcohol use, Intractable vomiting, Atypical chest pain, Nausea & vomiting Disposition: HOME SELF-CARE Condition: Good Instructions: Acute Nausea and Vomiting (ED) Referrals: Carrillo Leo Jr, DO [Primary Care Provider] - 1-2 days
[2017-11-24 00:28] LABS: Anisocytosis Slight; Basophils % (A) 0 %; Eosinophils # (A) 0.1 k/uL (0-0.7); Eosinophils % (A) 0 %; HCT 36.4 % (39.0-53.0); HGB 11.7 gm/dL (13.0-17.5); Lymphocytes # (A) 0.7 k/uL (1.0-4.8); Lymphocytes % (A) 6 %; MCHC 32.2 g/dL (31.0-37.0); MCV 93.2 fL (80.0-100.0); Mean Platelet Volume 7.1; Monocytes # (A) 0.6 k/uL (0-1.0); Monocytes % (A) 4 %; Neutrophils # (A) 11.6 k/uL (1.3-7.7); Neutrophils % (A) 89 %; Platelet Count 345 k/uL (150-450)
[2017-11-24 00:38] LABS: ALT 34 U/L (21-72); AST 24 U/L (17-59); Albumin 2.9 g/dL (3.5-5.0); Alcohol <10 mg/dL; Alkaline Phosphatase 241 U/L (38-126); Amylase 209 U/L (30-110); Anion Gap 9 mmol/L; Blood Urea Nitrogen 6 mg/dL (9-20); Calcium 8.7 mg/dL (8.4-10.2); Carbon Dioxide 23 mmol/L (22-30); Chloride 105 mmol/L (98-107); Glucose 106 mg/dL (74-99); Potassium 3.9 mmol/L (3.5-5.1); Sodium 137 mmol/L (137-145); Total Bilirubin 0.4 mg/dL (0.2-1.3); Total Protein 5.7 g/dL (6.3-8.2)
[2017-11-24 00:49] LABS: Lipase 2150 U/L (23-300)
[2017-11-24] MEDS ORDERED: SODIUM CHLORIDE 0.9% 1,000 ML IV STA ×2 (02:06→04:01)
[2017-11-24] MEDS ORDERED: MORPHINE SULFATE 2 MG/ML SYRINGE IVP STA (02:08)
[2017-11-24] MEDS ORDERED: ONDANSETRON 4 MG/2 ML VIAL IVP STA (02:34)
[2017-11-24] MEDS ORDERED: DIAZEPAM 5 MG/ML 2 ML INJ IVP STA (04:01)
[2017-11-24] MEDS ORDERED: PANTOPRAZOLE 40 MG/10 ML VIAL IVP STA (04:01)
[2017-11-24 05:18] VITALS: BP 159/87; PULSE 82
== END 2017-11-24 05:18 | disposition home or self-care (01) ==
LOC: EC 23:21
DX: K85.90 Acute pancreatitis without necrosis or infection, unspecified (principal); R07.89 Other chest pain; Z72.89 Other problems related to lifestyle; E78.5 Hyperlipidemia, unspecified; G62.9 Polyneuropathy, unspecified; N32.9 Bladder disorder, unspecified; F32.9 Major depressive disorder, single episode, unspecified; F41.9 Anxiety disorder, unspecified; F17.200 Nicotine dependence, unspecified, uncomplicated; Z79.899 Other long term (current) drug therapy; Z87.448 Personal history of other diseases of urinary system; Z90.49 Acquired absence of other specified parts of digestive tract
CPT/HCPCS: 36415 ×2; 80053; 82150; 83690; 85025; 80320; 99284; 96374; 96375 ×4; 96376; 96361 ×3; J3360; J2405; J1885; J2270; C9113

== ENCOUNTER 2017-11-24 09:44 | Emergency (ER) | payer MEDICARE, OTHER ==
[2017-11-24] MEDS ORDERED: ONDANSETRON 4 MG/2 ML VIAL IVP STA (09:51)
[2017-11-24] MEDS ORDERED: SODIUM CHLORIDE 0.9% 2,000 ML IV STA (09:51)
--- NOTE | 2017-11-24 10:06 | ED ---
Abdominal Pain HPI - General Chief Complaint: Abdominal Pain Stated Complaint: Abd Pain Time Seen by Provider: 11/24/17 09:50 Source: patient, RN notes reviewed Mode of arrival: wheelchair Limitations: no limitations - History of Present Illness Initial Comments: This a 47-year-old male present emergency department for chronic abdominal pain , chronic pancreatitis. Patient was just recently discharged from the hospital has had an ER visit since his discharge and returns again this morning for worsening abdominal pain, nausea and vomiting. Patient claims that he has been alcohol free last few days. He has been in rehab several times states that he does not need to go back to rehab. Patient reports no diarrhea no constipation denies any melena or hematochezia. Denies any hematemesis or coffee-ground emesis. - Related Data Home Medications Medication Instructions Recorded Confirmed Atorvastatin [Lipitor] 10 mg PO HS 09/27/15 11/23/17 Albuterol Inhaler [Ventolin Hfa 2 puff INHALATION RT-Q4H PRN 03/01/17 11/23/17 Inhaler] traZODone HCL 50 mg PO HS 04/04/17 11/23/17 Gabapentin [Neurontin] 400 mg PO TID 07/18/17 11/23/17 Acetaminophen-Codeine 300-30mg 1 tab PO TID PRN 09/10/17 11/23/17 [Tylenol w/codeine #3] DULoxetine HCL [Cymbalta] 60 mg PO DAILY 09/18/17 11/23/17 Magnesium Oxide [Mag-Ox] 200 mg PO DAILY 09/18/17 11/23/17 Tamsulosin HCl [Flomax] 0.4 mg PO DAILY 09/18/17 11/23/17 Diazepam [Valium] 5 mg PO TID 10/20/17 11/23/17 Lipase/Protease/Amylase [Rebel [place]cher 2 cap PO TID-W/MEALS 10/20/17 11/23/17 24,000 Units Capsule] buPROPion XL [Wellbutrin XL] 150 mg PO DAILY 10/20/17 11/23/17 Previous Rx's Medication Instructions Recorded Folic Acid 1 mg PO DAILY #30 tablet 07/15/15 Omeprazole [PriLOSEC] 40 mg PO BID #60 capsule. 05/16/17 cloNIDine HCL [Catapres] 0.1 mg PO TID #30 tab 08/23/17 Allergies Allergy/AdvReac Type Severity Reaction Status Date / Time No Known Allergies Allergy Verified 11/24/17 09:49 Review of Systems ROS Statement: Those systems with pertinent positive or pertinent negative responses have been documented in the HPI. ROS Other: All systems not noted in ROS Statement are negative. Past Medical History Past Medical History: GERD/Reflux, GI Bleed, Hyperlipidemia, Liver Disease, Pneumonia, Prostate Disorder Additional Past Medical History / Comment(s): ETOH ABUSE RECURRANT PANCREATITIS , ALCOHOLIC HEPATITIS, NEUROPATHY BILATERAL FEET SINCE BACK SURGERY, hx of CHRONIC URINARY RETENTION DUE TO BACK PROBLEMS-SELF CATHS, CHRONIC L HYDROURETERONEPHROSIS D/T REFLUX, CHRONIC LOW BACK PAIN (HAS STIMULATOR THAT PT STATES DOES NOT WORK), HEMATEMESIS, CHRONIC LOOSE STOOLS. History of Any Multi-Drug Resistant Organisms: None Reported Past Surgical History: Back Surgery, Cholecystectomy, Orthopedic Surgery Additional Past Surgical History / Comment(s): EGDS, colonoscopy, bronchoscopy, BACK surgeries with TITANIUM PLATES MILTON and CAGES, KIDNEY STONES removed per pt, SPINAL CORD STIMULATOR, ISMAEL KNEE ARTHROSCOPIES, PINKY FINGER RT HAND REATTATCHED Past Anesthesia/Blood Transfusion Reactions: No Reported Reaction Past Psychological History: Anxiety, Depression Smoking Status: Current every day smoker Past Alcohol Use History: Abuse Past Drug Use History: Marijuana - Past Family History Father Family Medical History: Diabetes Mellitus Additional Family Medical History / Comment(s): Mother Family Medical History: Dementia, Hyperlipidemia, Hypertension Additional Family Medical History / Comment(s): Mother is living. General Exam Limitations: no limitations General appearance: alert, in no apparent distress Head exam: Present: atraumatic, normocephalic, normal inspection Respiratory exam: Present: normal lung sounds bilaterally. Absent: respiratory distress, wheezes, rales, rhonchi, stridor Cardiovascular Exam: Present: regular rate, normal rhythm, normal heart sounds. Absent: systolic murmur, diastolic murmur, rubs, gallop, clicks GI/Abdominal exam: Present: soft, tenderness (Moderate epigastric and midabdominal tenderness), normal bowel sounds. Absent: distended, guarding, rebound, rigid Back exam: Absent: CVA tenderness (R), CVA tenderness (L) Skin exam: Present: warm, dry, intact, normal color. Absent: rash Course Vital Signs 11/24/17 09:46 Temperature 98.5 F Pulse Rate 78 Respiratory 16 Rate Blood Pressure 168/101 O2 Sat by Pulse 100 Oximetry Medical Decision Making - Medical Decision Making 47-year-old male present emergency from for abdominal pain. Patient had several ER visits for same complaints. Patient's lipase has dramatically improved. Patient was hydrated given antiemetics and will be discharged at this time. - Lab Data Result diagrams: 11/24/17 10:10 11/24/17 10:10 Lab Results 11/24/17 11/24/17 Range/Units 10:10 10:10 WBC 11.3 H (3.8-10.6) k/uL RBC 3.67 L (4.30-5.90) m/uL Hgb 11.1 L (13.0-17.5) gm/dL Hct 34.7 L (39.0-53.0) % MCV 94.5 (80.0-100.0) fL MCH 30.2 (25.0-35.0) pg MCHC 31.9 (31.0-37.0) g/dL RDW 16.0 H (11.5-15.5) % Plt Count 348 (150-450) k/uL Neutrophils % 85 % Lymphocytes % 9 % Monocytes % 5 % Eosinophils % 0 % Basophils % 0 % Neutrophils # 9.6 H (1.3-7.7) k/uL Lymphocytes # 1.0 (1.0-4.8) k/uL Monocytes # 0.6 (0-1.0) k/uL Eosinophils # 0.1 (0-0.7) k/uL Basophils # 0.0 (0-0.2) k/uL Sodium 138 (137-145) mmol/L Potassium 3.8 (3.5-5.1) mmol/L Chloride 105 (98-107) mmol/L Carbon Dioxide 25 (22-30) mmol/L Anion Gap 8 mmol/L BUN 3 L (9-20) mg/dL Creatinine 0.50 L (0.66-1.25) mg/dL Est GFR (CKD-EPI)AfAm >90 (>60 ml/min/1.73 sqM) Est GFR (CKD-EPI)NonAf >90 (>60 ml/min/1.73 sqM) Glucose 95 (74-99) mg/dL Calcium 8.2 L (8.4-10.2) mg/dL Total Bilirubin 0.3 (0.2-1.3) mg/dL AST 23 (17-59) U/L ALT 35 (21-72) U/L Alkaline Phosphatase 231 H (38-126) U/L Total Protein 5.0 L (6.3-8.2) g/dL Albumin 2.5 L (3.5-5.0) g/dL Amylase 119 H (30-110) U/L Lipase 1085 H (23-300) U/L Disposition Clinical Impression: Chronic pancreatitis Disposition: HOME SELF-CARE Condition: Stable Instructions: Pancreatitis (ED) Additional Instructions: Please return to the Emergency Department if symptoms worsen or any other concerns. Is patient prescribed a controlled substance at d/c from ED?: No Referrals: Carrillo Leo Jr, [Primary Care Provider] - 1-2 days Time of Disposition: 11:06
[2017-11-24 10:26] LABS: Basophils % (A) 0 %; Eosinophils # (A) 0.1 k/uL (0-0.7); Eosinophils % (A) 0 %; HCT 34.7 % (39.0-53.0); HGB 11.1 gm/dL (13.0-17.5); Lymphocytes % (A) 9 %; MCH 30.2 pg (25.0-35.0); MCHC 31.9 g/dL (31.0-37.0); MCV 94.5 fL (80.0-100.0); Monocytes # (A) 0.6 k/uL (0-1.0); Monocytes % (A) 5 %; Neutrophils # (A) 9.6 k/uL (1.3-7.7); Neutrophils % (A) 85 %; Platelet Count 348 k/uL (150-450); RBC 3.67 m/uL (4.30-5.90); WBC 11.3 k/uL (3.8-10.6)
[2017-11-24 10:50] LABS: ALT 35 U/L (21-72); AST 23 U/L (17-59); Albumin 2.5 g/dL (3.5-5.0); Alkaline Phosphatase 231 U/L (38-126); Amylase 119 U/L (30-110); Anion Gap 8 mmol/L; Blood Urea Nitrogen 3 mg/dL (9-20); Calcium 8.2 mg/dL (8.4-10.2); Carbon Dioxide 25 mmol/L (22-30); Chloride 105 mmol/L (98-107); Glucose 95 mg/dL (74-99); Lipase 1085 U/L (23-300); Potassium 3.8 mmol/L (3.5-5.1); Sodium 138 mmol/L (137-145); Total Bilirubin 0.3 mg/dL (0.2-1.3)
[2017-11-24] MEDS ORDERED: PANTOPRAZOLE 40 MG/10 ML VIAL IVP STA (11:03)
[2017-11-24] MEDS ORDERED: KETOROLAC 30 MG/ML 1 ML VIAL IVP STA (11:03)
[2017-11-24 11:51] VITALS: BP 168/86; PULSE 72; RESP 18; TEMP 97.8
[2017-11-24 12:19] LABS: Appearance,Urine Clear (Clear); Bilirubin,Urine Negative (Negative); Blood,Urine Negative (Negative); Color,Urine Light Yellow; Glucose,Urine (UA) Negative (Negative); Ketones,Urine Negative (Negative); Leukocyte Esterase,Urine Moderate (Negative); Mucus,Urine Rare /hpf; Nitrite,Urine Negative (Negative); Protein,Urine Negative (Negative); RBC,Urine 1 /hpf (0-5); Specific Gravity,Urine 1.006 (1.001-1.035); Urobilinogen,Urine <2.0 mg/dL (<2.0); WBC,Urine 10 /hpf (0-5)
== END 2017-11-24 12:25 | disposition home or self-care (01) ==
LOC: EC 09:44
DX: K86.1 Other chronic pancreatitis (principal); E78.5 Hyperlipidemia, unspecified; N42.9 Disorder of prostate, unspecified; G62.9 Polyneuropathy, unspecified; F32.9 Major depressive disorder, single episode, unspecified; F41.9 Anxiety disorder, unspecified; F17.200 Nicotine dependence, unspecified, uncomplicated; Z79.899 Other long term (current) drug therapy; Z90.49 Acquired absence of other specified parts of digestive tract
CPT/HCPCS: 36415; 80053; 82150; 83690; 85025; 81001; 99284; 96374; 96375 ×2; 96361 ×2; J2405; J1885; C9113

== ENCOUNTER 2017-11-25 01:18 | Emergency (ER) | payer MEDICARE, OTHER ==
[2017-11-25] MEDS ORDERED: SODIUM CHLORIDE 0.9% 1,000 ML IV STA (01:57)
[2017-11-25] MEDS ORDERED: PANTOPRAZOLE 40 MG/10 ML VIAL IVP STA (01:57)
[2017-11-25] MEDS ORDERED: ONDANSETRON 4 MG/2 ML VIAL IVP STA (01:57)
[2017-11-25] MEDS ORDERED: SODIUM CHLORIDE 0.9% 500 ML IV STA (01:57)
[2017-11-25] MEDS ORDERED: MORPHINE SULFATE 2 MG/ML SYRINGE IV STA (01:57)
--- NOTE | 2017-11-25 01:57 | ED ---
General Adult HPI - General Chief complaint: Abdominal Pain Stated complaint: Abd pain Time Seen by Provider: 11/25/17 01:29 Source: patient, RN notes reviewed, old records reviewed Mode of arrival: ambulatory Limitations: no limitations - History of Present Illness Initial comments: This is a 47-year-old male to the ER for evaluation this male presents ER for evaluation of bowel pain. Patient will is ER with multiple ER visits for last few days. Patient's presented today for evaluation of bowel pain just like prior. Patient denies drinking alcohol today. - Related Data Home Medications Medication Instructions Recorded Confirmed Atorvastatin [Lipitor] 10 mg PO HS 09/27/15 11/23/17 Albuterol Inhaler [Ventolin Hfa 2 puff INHALATION RT-Q4H PRN 03/01/17 11/23/17 Inhaler] traZODone HCL 50 mg PO HS 04/04/17 11/23/17 Gabapentin [Neurontin] 400 mg PO TID 07/18/17 11/23/17 Acetaminophen-Codeine 300-30mg 1 tab PO TID PRN 09/10/17 11/23/17 [Tylenol w/codeine #3] DULoxetine HCL [Cymbalta] 60 mg PO DAILY 09/18/17 11/23/17 Magnesium Oxide [Mag-Ox] 200 mg PO DAILY 09/18/17 11/23/17 Tamsulosin HCl [Flomax] 0.4 mg PO DAILY 09/18/17 11/23/17 Diazepam [Valium] 5 mg PO TID 10/20/17 11/23/17 Lipase/Protease/Amylase [Rebel Belcher 2 cap PO TID-W/MEALS 10/20/17 11/23/17 24,000 Units Capsule] buPROPion XL [Wellbutrin XL] 150 mg PO DAILY 10/20/17 11/23/17 Previous Rx's Medication Instructions Recorded Folic Acid 1 mg PO DAILY #30 tablet 07/15/15 Omeprazole [PriLOSEC] 40 mg PO BID #60 capsule. 05/16/17 cloNIDine HCL [Catapres] 0.1 mg PO TID #30 tab 08/23/17 Allergies Allergy/AdvReac Type Severity Reaction Status Date / Time No Known Allergies Allergy Verified 11/25/17 01:52 Review of Systems ROS Statement: Those systems with pertinent positive or pertinent negative responses have been documented in the HPI. ROS Other: All systems not noted in ROS Statement are negative. Past Medical History Past Medical History: GERD/Reflux, GI Bleed, Hyperlipidemia, Liver Disease, Pneumonia, Prostate Disorder Additional Past Medical History / Comment(s): ETOH ABUSE RECURRANT PANCREATITIS , ALCOHOLIC HEPATITIS, NEUROPATHY BILATERAL FEET SINCE BACK SURGERY, hx of CHRONIC URINARY RETENTION DUE TO BACK PROBLEMS-SELF CATHS, CHRONIC L HYDROURETERONEPHROSIS D/T REFLUX, CHRONIC LOW BACK PAIN (HAS STIMULATOR THAT PT STATES DOES NOT WORK), HEMATEMESIS, CHRONIC LOOSE STOOLS. History of Any Multi-Drug Resistant Organisms: None Reported Past Surgical History: Back Surgery, Cholecystectomy, Orthopedic Surgery Additional Past Surgical History / Comment(s): EGDS, colonoscopy, bronchoscopy, BACK surgeries with TITANIUM PLATES MILTON and CAGES, KIDNEY STONES removed per pt, SPINAL CORD STIMULATOR, ISMAEL KNEE ARTHROSCOPIES, PINKY FINGER RT HAND REATTATCHED Past Anesthesia/Blood Transfusion Reactions: No Reported Reaction Past Psychological History: Anxiety, Depression Smoking Status: Current every day smoker Past Alcohol Use History: Abuse Past Drug Use History: Marijuana - Past Family History Father Family Medical History: Diabetes Mellitus Additional Family Medical History / Comment(s): Mother Family Medical History: Dementia, Hyperlipidemia, Hypertension Additional Family Medical History / Comment(s): Mother is living. General Exam Limitations: no limitations General appearance: alert, in no apparent distress Head exam: Present: atraumatic, normocephalic, normal inspection Eye exam: Present: normal appearance, PERRL, EOMI. Absent: scleral icterus, conjunctival injection, periorbital swelling ENT exam: Present: normal exam, mucous membranes moist Neck exam: Present: normal inspection. Absent: tenderness, meningismus, lymphadenopathy Respiratory exam: Present: normal lung sounds bilaterally. Absent: respiratory distress, wheezes, rales, rhonchi, stridor Cardiovascular Exam: Present: regular rate, normal rhythm, normal heart sounds. Absent: systolic murmur, diastolic murmur, rubs, gallop, clicks GI/Abdominal exam: Present: soft, normal bowel sounds. Absent: distended, tenderness, guarding, rebound, rigid Extremities exam: Present: normal inspection, full ROM, normal capillary refill. Absent: tenderness, pedal edema, joint swelling, calf tenderness Back exam: Present: normal inspection Neurological exam: Present: alert, oriented X3, CN II-XII intact Psychiatric exam: Present: normal affect, normal mood Skin exam: Present: warm, dry, intact, normal color. Absent: rash Course Vital Signs 11/25/17 01:50 Temperature 98.7 F Pulse Rate 68 Respiratory 16 Rate Blood Pressure 155/87 O2 Sat by Pulse 100 Oximetry - Reevaluation(s) Reevaluation #1: 11/25/17 01:57 Medical record is reviewed Medical Decision Making - Medical Decision Making Plan I male the ER for evaluation of bowel pain. Lipase continues to trend positive direction. Patient will be discharged home to continue to urgent and drinking, no alcohol, increase hydration, follow-up with family care - Lab Data Result diagrams: 11/25/17 02:57 11/25/17 02:57 Lab Results 11/25/17 11/25/17 Range/Units 02:57 02:57 WBC 11.9 H (3.8-10.6) k/uL RBC 3.63 L (4.30-5.90) m/uL Hgb 11.1 L (13.0-17.5) gm/dL Hct 34.3 L (39.0-53.0) % MCV 94.5 (80.0-100.0) fL MCH 30.5 (25.0-35.0) pg MCHC 32.3 (31.0-37.0) g/dL RDW 16.3 H (11.5-15.5) % Plt Count 315 (150-450) k/uL Neutrophils % 87 % Lymphocytes % 8 % Monocytes % 4 % Eosinophils % 1 % Basophils % 0 % Neutrophils # 10.3 H (1.3-7.7) k/uL Lymphocytes # 1.0 (1.0-4.8) k/uL Monocytes # 0.5 (0-1.0) k/uL Eosinophils # 0.1 (0-0.7) k/uL Basophils # 0.0 (0-0.2) k/uL Anisocytosis Slight Sodium 133 L (137-145) mmol/L Potassium 3.9 (3.5-5.1) mmol/L Chloride 102 (98-107) mmol/L Carbon Dioxide 22 (22-30) mmol/L Anion Gap 9 mmol/L BUN 2 L (9-20) mg/dL Creatinine 0.40 L (0.66-1.25) mg/dL Est GFR (CKD-EPI)AfAm >90 (>60 ml/min/1.73 sqM) Est GFR (CKD-EPI)NonAf >90 (>60 ml/min/1.73 sqM) Glucose 97 (74-99) mg/dL Calcium 8.3 L (8.4-10.2) mg/dL Total Bilirubin 0.3 (0.2-1.3) mg/dL AST 17 (17-59) U/L ALT 32 (21-72) U/L Alkaline Phosphatase 211 H (38-126) U/L Total Protein 5.2 L (6.3-8.2) g/dL Albumin 2.6 L (3.5-5.0) g/dL Amylase 133 H (30-110) U/L Lipase 1291 H (23-300) U/L Serum Alcohol <10 mg/dL Disposition Clinical Impression: Abdominal pain, Chronic pancreatitis Disposition: HOME SELF-CARE Condition: Good Instructions: Abdominal Pain (ED) Is patient prescribed a controlled substance at d/c from ED?: No Referrals: Carrillo Leo Jr, [Primary Care Provider] - 1-2 days
[2017-11-25 03:06] LABS: Anisocytosis Slight; Basophils % (A) 0 %; Eosinophils # (A) 0.1 k/uL (0-0.7); Eosinophils % (A) 1 %; HCT 34.3 % (39.0-53.0); HGB 11.1 gm/dL (13.0-17.5); Lymphocytes % (A) 8 %; MCH 30.5 pg (25.0-35.0); MCHC 32.3 g/dL (31.0-37.0); MCV 94.5 fL (80.0-100.0); Monocytes # (A) 0.5 k/uL (0-1.0); Monocytes % (A) 4 %; Neutrophils # (A) 10.3 k/uL (1.3-7.7); Neutrophils % (A) 87 %; Platelet Count 315 k/uL (150-450); RBC 3.63 m/uL (4.30-5.90); RDW 16.3 % (11.5-15.5); WBC 11.9 k/uL (3.8-10.6)
[2017-11-25 03:30] LABS: ALT 32 U/L (21-72); AST 17 U/L (17-59); Albumin 2.6 g/dL (3.5-5.0); Alcohol <10 mg/dL; Alkaline Phosphatase 211 U/L (38-126); Amylase 133 U/L (30-110); Anion Gap 9 mmol/L; Blood Urea Nitrogen 2 mg/dL (9-20); Calcium 8.3 mg/dL (8.4-10.2); Carbon Dioxide 22 mmol/L (22-30); Chloride 102 mmol/L (98-107); Glucose 97 mg/dL (74-99); Lipase 1291 U/L (23-300); Potassium 3.9 mmol/L (3.5-5.1); Sodium 133 mmol/L (137-145); Total Bilirubin 0.3 mg/dL (0.2-1.3); Total Protein 5.2 g/dL (6.3-8.2)
[2017-11-25 04:09] VITALS: BP 149/75; PULSE 75; RESP 14; TEMP 97.8
== END 2017-11-25 04:12 | disposition home or self-care (01) ==
LOC: EC 01:18
DX: K86.1 Other chronic pancreatitis (principal); E78.5 Hyperlipidemia, unspecified; G62.9 Polyneuropathy, unspecified; N42.9 Disorder of prostate, unspecified; F32.9 Major depressive disorder, single episode, unspecified; F41.9 Anxiety disorder, unspecified; F17.200 Nicotine dependence, unspecified, uncomplicated; Z79.899 Other long term (current) drug therapy; Z87.448 Personal history of other diseases of urinary system; Z90.49 Acquired absence of other specified parts of digestive tract
CPT/HCPCS: 99284; 96374; 96375 ×2; 96361; 36415; 80053; 82150; 83690; 85025; 80320; J2405; J2270; C9113

== ENCOUNTER 2017-11-28 11:29 | Emergency (ER) | payer MEDICARE, OTHER ==
[2017-11-28 11:40] VITALS: RESP 18
[2017-11-28] MEDS ORDERED: KETOROLAC 30 MG/ML 1 ML VIAL IVP STA (11:42)
[2017-11-28] MEDS ORDERED: ONDANSETRON 4 MG/2 ML VIAL IVP STA (11:42)
[2017-11-28] MEDS ORDERED: SODIUM CHLORIDE 0.9% 1,000 ML IV STA (11:42)
--- NOTE | 2017-11-28 12:20 | ED ---
Abdominal Pain HPI - General Chief Complaint: Abdominal Pain Stated Complaint: ABd Pain Time Seen by Provider: 11/28/17 11:41 Source: patient, RN notes reviewed Mode of arrival: ambulatory Limitations: no limitations - History of Present Illness Initial Comments: 47-year-old male presents emergency from for chronic pancreatitis. Patient states her last 2 days is a nausea vomiting abdominal pain. Patient states that the pain is in his epigastric midabdominal region which is normal for him. He states he has not had a alcohol in 8 days. Patient states that has remained sober. Patient's had multiple ER visits and hospitalizations for chronic pancreatitis. He denies any melena or hematochezia, diarrhea, constipation. He's had several episodes of vomiting and continues to be nauseated. - Related Data Home Medications Medication Instructions Recorded Confirmed Atorvastatin [Lipitor] 10 mg PO HS 09/27/15 11/28/17 Albuterol Inhaler [Ventolin Hfa 2 puff INHALATION RT-Q4H PRN 03/01/17 11/28/17 Inhaler] traZODone HCL 50 mg PO HS 04/04/17 11/28/17 Gabapentin [Neurontin] 400 mg PO TID 07/18/17 11/28/17 Acetaminophen-Codeine 300-30mg 1 tab PO TID PRN 09/10/17 11/28/17 [Tylenol w/codeine #3] DULoxetine HCL [Cymbalta] 60 mg PO DAILY 09/18/17 11/28/17 Magnesium Oxide [Mag-Ox] 200 mg PO DAILY 09/18/17 11/28/17 Tamsulosin HCl [Flomax] 0.4 mg PO DAILY 09/18/17 11/28/17 Diazepam [Valium] 5 mg PO TID 10/20/17 11/28/17 Lipase/Protease/Amylase [Rebel Belcher 2 cap PO TID-W/MEALS 10/20/17 11/28/17 24,000 Units Capsule] buPROPion XL [Wellbutrin XL] 150 mg PO DAILY 10/20/17 11/28/17 Previous Rx's Medication Instructions Recorded Folic Acid 1 mg PO DAILY #30 tablet 07/15/15 Omeprazole [PriLOSEC] 40 mg PO BID #60 capsule. 05/16/17 cloNIDine HCL [Catapres] 0.1 mg PO TID #30 tab 08/23/17 Allergies Allergy/AdvReac Type Severity Reaction Status Date / Time No Known Allergies Allergy Verified 11/28/17 11:57 Review of Systems ROS Statement: Those systems with pertinent positive or pertinent negative responses have been documented in the HPI. ROS Other: All systems not noted in ROS Statement are negative. Past Medical History Past Medical History: GERD/Reflux, GI Bleed, Hyperlipidemia, Liver Disease, Pneumonia, Prostate Disorder Additional Past Medical History / Comment(s): ETOH ABUSE RECURRANT PANCREATITIS , ALCOHOLIC HEPATITIS, NEUROPATHY BILATERAL FEET SINCE BACK SURGERY, hx of CHRONIC URINARY RETENTION DUE TO BACK PROBLEMS-SELF CATHS, CHRONIC L HYDROURETERONEPHROSIS D/T REFLUX, CHRONIC LOW BACK PAIN (HAS STIMULATOR THAT PT STATES DOES NOT WORK), HEMATEMESIS, CHRONIC LOOSE STOOLS. History of Any Multi-Drug Resistant Organisms: None Reported Past Surgical History: Back Surgery, Cholecystectomy, Orthopedic Surgery Additional Past Surgical History / Comment(s): EGDS, colonoscopy, bronchoscopy, BACK surgeries with TITANIUM PLATES MILTON and CAGES, KIDNEY STONES removed per pt, SPINAL CORD STIMULATOR, ISMAEL KNEE ARTHROSCOPIES, PINKY FINGER RT HAND REATTATCHED Past Anesthesia/Blood Transfusion Reactions: No Reported Reaction Past Psychological History: Anxiety, Depression Smoking Status: Current every day smoker Past Alcohol Use History: None Reported, Abuse, Daily Past Drug Use History: None Reported - Past Family History Father Family Medical History: Diabetes Mellitus Additional Family Medical History / Comment(s): Mother Family Medical History: Dementia, Hyperlipidemia, Hypertension Additional Family Medical History / Comment(s): Mother is living. General Exam Limitations: no limitations General appearance: alert, in no apparent distress Head exam: Present: atraumatic, normocephalic, normal inspection Neck exam: Present: normal inspection, full ROM. Absent: tenderness, meningismus, lymphadenopathy Respiratory exam: Present: normal lung sounds bilaterally. Absent: respiratory distress, wheezes, rales, rhonchi, stridor Cardiovascular Exam: Present: regular rate, normal rhythm, normal heart sounds. Absent: systolic murmur, diastolic murmur, rubs, gallop, clicks GI/Abdominal exam: Present: soft, tenderness, normal bowel sounds. Absent: distended, guarding, rebound, rigid Back exam: Absent: CVA tenderness (R), CVA tenderness (L) Skin exam: Present: warm, dry, intact, normal color. Absent: rash Course Vital Signs 11/28/17 11:35 Temperature 98.3 F Pulse Rate 92 Respiratory 18 Rate Blood Pressure 133/85 O2 Sat by Pulse 100 Oximetry - Reevaluation(s) Reevaluation #1: 11/28/17 14:36 Patient updated on lab results and reevaluated. Patient states he feels improved nausea has resolved. Patient was hydrated. Medical Decision Making - Medical Decision Making 47-year-old male presented for abdominal pain. Patient has history of chronic pancreatitis. Patient lipase is 1378. Patient states he feels improved. Patient will be discharged at this time. - Lab Data Result diagrams: 11/28/17 13:15 11/28/17 13:15 Lab Results 11/28/17 11/28/17 Range/Units 13:15 13:15 WBC 13.5 H (3.8-10.6) k/uL RBC 4.01 L (4.30-5.90) m/uL Hgb 12.4 L (13.0-17.5) gm/dL Hct 37.0 L (39.0-53.0) % MCV 92.1 (80.0-100.0) fL MCH 31.0 (25.0-35.0) pg MCHC 33.6 (31.0-37.0) g/dL RDW 16.0 H (11.5-15.5) % Plt Count 439 (150-450) k/uL Neutrophils % 86 % Lymphocytes % 8 % Monocytes % 5 % Eosinophils % 0 % Basophils % 0 % Neutrophils # 11.5 H (1.3-7.7) k/uL Lymphocytes # 1.0 (1.0-4.8) k/uL Monocytes # 0.7 (0-1.0) k/uL Eosinophils # 0.1 (0-0.7) k/uL Basophils # 0.0 (0-0.2) k/uL Sodium 133 L (137-145) mmol/L Potassium 3.9 (3.5-5.1) mmol/L Chloride 95 L (98-107) mmol/L Carbon Dioxide 24 (22-30) mmol/L Anion Gap 14 mmol/L BUN 8 L (9-20) mg/dL Creatinine 0.50 L (0.66-1.25) mg/dL Est GFR (CKD-EPI)AfAm >90 (>60 ml/min/1.73 sqM) Est GFR (CKD-EPI)NonAf >90 (>60 ml/min/1.73 sqM) Glucose 85 (74-99) mg/dL Calcium 8.7 (8.4-10.2) mg/dL Total Bilirubin 0.4 (0.2-1.3) mg/dL AST 10 L (17-59) U/L ALT 28 (21-72) U/L Alkaline Phosphatase 201 H (38-126) U/L Total Protein 5.7 L (6.3-8.2) g/dL Albumin 3.0 L (3.5-5.0) g/dL Amylase 152 H (30-110) U/L Lipase 1378 H (23-300) U/L Serum Alcohol <10 mg/dL Disposition Clinical Impression: Chronic pancreatitis Disposition: HOME SELF-CARE Condition: Stable Instructions: Pancreatitis (ED) Additional Instructions: Please return to the Emergency Department if symptoms worsen or any other concerns. Is patient prescribed a controlled substance at d/c from ED?: No Referrals: Carrillo Leo Jr, [Primary Care Provider] - 1-2 days Time of Disposition: 14:37
[2017-11-28 13:31] LABS: Basophils % (A) 0 %; Eosinophils # (A) 0.1 k/uL (0-0.7); Eosinophils % (A) 0 %; HGB 12.4 gm/dL (13.0-17.5); Lymphocytes % (A) 8 %; MCHC 33.6 g/dL (31.0-37.0); MCV 92.1 fL (80.0-100.0); Mean Platelet Volume 6.5; Monocytes # (A) 0.7 k/uL (0-1.0); Monocytes % (A) 5 %; Neutrophils # (A) 11.5 k/uL (1.3-7.7); Neutrophils % (A) 86 %; Platelet Count 439 k/uL (150-450); RBC 4.01 m/uL (4.30-5.90); WBC 13.5 k/uL (3.8-10.6)
[2017-11-28 13:44] LABS: ALT 28 U/L (21-72); AST 10 U/L (17-59); Alcohol <10 mg/dL; Alkaline Phosphatase 201 U/L (38-126); Amylase 152 U/L (30-110); Anion Gap 14 mmol/L; Blood Urea Nitrogen 8 mg/dL (9-20); Calcium 8.7 mg/dL (8.4-10.2); Carbon Dioxide 24 mmol/L (22-30); Chloride 95 mmol/L (98-107); Glucose 85 mg/dL (74-99); Lipase 1378 U/L (23-300); Potassium 3.9 mmol/L (3.5-5.1); Sodium 133 mmol/L (137-145); Total Bilirubin 0.4 mg/dL (0.2-1.3); Total Protein 5.7 g/dL (6.3-8.2)
[2017-11-28 15:17] VITALS: BP 150/83; PULSE 78; TEMP 97.9
== END 2017-11-28 15:17 | disposition home or self-care (01) ==
LOC: EC 11:29
DX: K86.1 Other chronic pancreatitis (principal); E78.5 Hyperlipidemia, unspecified; G62.9 Polyneuropathy, unspecified; N42.9 Disorder of prostate, unspecified; F32.9 Major depressive disorder, single episode, unspecified; F41.9 Anxiety disorder, unspecified; F17.200 Nicotine dependence, unspecified, uncomplicated; Z79.899 Other long term (current) drug therapy; Z90.49 Acquired absence of other specified parts of digestive tract
CPT/HCPCS: 99284; 96374; 96375; 96361 ×2; 36415; 80053; 82150; 83690; 85025; 80320; J2405; J1885

== ENCOUNTER 2017-12-06 11:10 | Inpatient (IN) | payer MEDICARE, OTHER ==
[2017-12-06] MEDS ORDERED: MORPHINE SULFATE 4 MG/ML SYRINGE IV STA (11:51)
[2017-12-06] MEDS ORDERED: PANTOPRAZOLE 40 MG/10 ML VIAL IVP STA (11:51)
[2017-12-06] MEDS ORDERED: SODIUM CHLORIDE 0.9% 1,000 ML IV STA (11:51)
[2017-12-06] MEDS ORDERED: ONDANSETRON 4 MG/2 ML VIAL IVP STA (11:51)
[2017-12-06] MEDS ORDERED: SODIUM CHLORIDE 0.9% 2,000 ML IV STA (11:51)
--- NOTE | 2017-12-06 11:58 | ED ---
General Adult HPI - General Chief complaint: Abdominal Pain Stated complaint: pancreatitis Time Seen by Provider: 12/06/17 11:44 Source: patient Mode of arrival: wheelchair Limitations: no limitations - History of Present Illness Initial comments: Nestor is a 47-year-old alcoholic male with a history of recurrent pancreatitis who presents to the emergency department today for evaluation of epigastric abdominal pain nausea and vomiting. Patient reports that he has chronic pancreatitis and chronically experiences pain in his epigastrium, he does report that 2 days ago he was drinking liquor. He reports that since that time he's been experiencing nausea. He states that this morning he woke at 3 AM and has had persistent episodes of nonbloody nonbilious vomiting since that time. He tried taking his home medications including Zofran and his pancreatic enzymes , however he was unable to keep any of those down. Symptoms persisted for 8 hours which prompted him to come to the ER for further evaluation. Patient denies any associated symptoms including fevers, chills, chest pain, shortness of breath, change in bowel habits, dysuria, he denies any paresthesias rashes or injuries to the extremities. Patient reports that he had been sober for a short period of time and 2 days ago decided to drink some liquor. He reports that he drank approximately half a bottle of liquor and then decided that he didn't want drink anymore, he then pointed the bottle out but reports that it worsened his abdominal pain is been progressively worsening since that time. - Related Data Home Medications Medication Instructions Recorded Confirmed Atorvastatin [Lipitor] 10 mg PO HS 09/27/15 12/06/17 Albuterol Inhaler [Ventolin Hfa 2 puff INHALATION RT-Q4H PRN 03/01/17 12/06/17 Inhaler] traZODone HCL 50 mg PO HS 04/04/17 12/06/17 Gabapentin [Neurontin] 400 mg PO TID 07/18/17 12/06/17 Acetaminophen-Codeine 300-30mg 1 tab PO TID PRN 09/10/17 12/06/17 [Tylenol w/codeine #3] DULoxetine HCL [Cymbalta] 60 mg PO DAILY 09/18/17 12/06/17 Magnesium Oxide [Mag-Ox] 200 mg PO DAILY 09/18/17 12/06/17 Tamsulosin HCl [Flomax] 0.4 mg PO DAILY 09/18/17 12/06/17 Diazepam [Valium] 5 mg PO TID 10/20/17 12/06/17 Lipase/Protease/Amylase [Rebel Belcher 2 cap PO TID-W/MEALS 10/20/17 12/06/17 24,000 Units Capsule] buPROPion XL [Wellbutrin XL] 150 mg PO DAILY 10/20/17 12/06/17 Previous Rx's Medication Instructions Recorded Folic Acid 1 mg PO DAILY #30 tablet 07/15/15 Omeprazole [PriLOSEC] 40 mg PO BID #60 capsule. 05/16/17 cloNIDine HCL [Catapres] 0.1 mg PO TID #30 tab 08/23/17 Allergies Allergy/AdvReac Type Severity Reaction Status Date / Time No Known Allergies Allergy Verified 12/06/17 11:38 Review of Systems ROS Statement: Those systems with pertinent positive or pertinent negative responses have been documented in the HPI. ROS Other: All systems not noted in ROS Statement are negative. Constitutional: Denies: fever ENT: Denies: throat pain Respiratory: Denies: cough Cardiovascular: Denies: chest pain Endocrine: Reports: fatigue Gastrointestinal: Reports: abdominal pain, nausea, vomiting Genitourinary: Denies: dysuria Musculoskeletal: Denies: back pain Skin: Denies: rash, lesions Neurological: Denies: headache, weakness Hematological/Lymphatic: Denies: easy bleeding, easy bruising Past Medical History Past Medical History: GERD/Reflux, GI Bleed, Hyperlipidemia, Liver Disease, Pneumonia, Prostate Disorder Additional Past Medical History / Comment(s): ETOH ABUSE RECURRANT PANCREATITIS , ALCOHOLIC HEPATITIS, NEUROPATHY BILATERAL FEET SINCE BACK SURGERY, hx of CHRONIC URINARY RETENTION DUE TO BACK PROBLEMS-SELF CATHS, CHRONIC L HYDROURETERONEPHROSIS D/T REFLUX, CHRONIC LOW BACK PAIN (HAS STIMULATOR THAT PT STATES DOES NOT WORK), HEMATEMESIS, CHRONIC LOOSE STOOLS. History of Any Multi-Drug Resistant Organisms: None Reported Past Surgical History: Back Surgery, Cholecystectomy, Orthopedic Surgery Additional Past Surgical History / Comment(s): EGDS, colonoscopy, bronchoscopy, BACK surgeries with TITANIUM PLATES MILTON and CAGES, KIDNEY STONES removed per pt, SPINAL CORD STIMULATOR, ISMAEL KNEE ARTHROSCOPIES, PINKY FINGER RT HAND REATTATCHED Past Anesthesia/Blood Transfusion Reactions: No Reported Reaction Past Psychological History: Anxiety, Depression Smoking Status: Current every day smoker Past Alcohol Use History: None Reported, Abuse, Daily Past Drug Use History: None Reported - Past Family History Father Family Medical History: Diabetes Mellitus Additional Family Medical History / Comment(s): Mother Family Medical History: Dementia, Hyperlipidemia, Hypertension Additional Family Medical History / Comment(s): Mother is living. General Exam Limitations: no limitations General appearance: alert, other (Appears uncomfortable) Head exam: Present: atraumatic, normocephalic Eye exam: Present: normal appearance, PERRL ENT exam: Present: normal exam Neck exam: Present: normal inspection Respiratory exam: Present: normal lung sounds bilaterally. Absent: respiratory distress Cardiovascular Exam: Present: regular rate, normal rhythm GI/Abdominal exam: Present: soft, tenderness, guarding (Voluntary guarding in the epigastrium). Absent: rebound, rigid Rectal exam: Present: deferred Extremities exam: Present: normal inspection, full ROM Neurological exam: Present: alert, oriented X3 Psychiatric exam: Present: depressed Skin exam: Present: warm, dry Course Vital Signs 12/06/17 12/06/17 11:24 13:36 Temperature 98.5 F Pulse Rate 88 83 Respiratory 18 16 Rate Blood Pressure 123/84 148/96 O2 Sat by Pulse 99 100 Oximetry Medical Decision Making - Medical Decision Making The patient was seen and evaluated, history was obtained from the patient and review of medical record With chronic pancreatitis now dispensing worsening pain, nausea and vomiting. Labs, IV fluids and medications were ordered Labs are consistent with recurrent pancreatitis Labs were discussed with patient, advised of plan for observation for acute on chronic pancreatitis Patient care discussed with Dr. Pizano who is very familiar with patient and will evaluate - Lab Data Result diagrams: 12/06/17 12:21 12/06/17 12:21 Lab Results 12/06/17 12/06/17 12/06/17 Range/Units 12:21 12:21 12:21 WBC 11.3 H (3.8-10.6) k/uL RBC 4.13 L (4.30-5.90) m/uL Hgb 12.4 L (13.0-17.5) gm/dL Hct 37.5 L (39.0-53.0) % MCV 90.9 (80.0-100.0) fL MCH 30.1 (25.0-35.0) pg MCHC 33.1 (31.0-37.0) g/dL RDW 16.0 H (11.5-15.5) % Plt Count 476 H (150-450) k/uL Neutrophils % 86 % Lymphocytes % 9 % Monocytes % 4 % Eosinophils % 1 % Basophils % 0 % Neutrophils # 9.6 H (1.3-7.7) k/uL Lymphocytes # 1.0 (1.0-4.8) k/uL Monocytes # 0.5 (0-1.0) k/uL Eosinophils # 0.1 (0-0.7) k/uL Basophils # 0.0 (0-0.2) k/uL PT (9.0-12.0) sec INR (<1.2) APTT (22.0-30.0) sec Sodium 136 L (137-145) mmol/L Potassium 4.1 (3.5-5.1) mmol/L Chloride 102 (98-107) mmol/L Carbon Dioxide 26 (22-30) mmol/L Anion Gap 8 mmol/L BUN 14 (9-20) mg/dL Creatinine 0.53 L (0.66-1.25) mg/dL Est GFR (CKD-EPI)AfAm >90 (>60 ml/min/1.73 sqM) Est GFR (CKD-EPI)NonAf >90 (>60 ml/min/1.73 sqM) Glucose 97 (74-99) mg/dL Plasma Lactic Acid Bandar (0.7-2.0) mmol/L Calcium 8.7 (8.4-10.2) mg/dL Total Bilirubin 0.6 (0.2-1.3) mg/dL AST 61 H (17-59) U/L ALT 45 (21-72) U/L Alkaline Phosphatase 223 H (38-126) U/L Troponin I <0.012 (0.000-0.034) ng/mL Total Protein 6.0 L (6.3-8.2) g/dL Albumin 3.3 L (3.5-5.0) g/dL Amylase 178 H (30-110) U/L Lipase 1486 H (23-300) U/L 12/06/17 12/06/17 Range/Units 12:21 12:46 WBC (3.8-10.6) k/uL RBC (4.30-5.90) m/uL Hgb (13.0-17.5) gm/dL Hct (39.0-53.0) % MCV (80.0-100.0) fL MCH (25.0-35.0) pg MCHC (31.0-37.0) g/dL RDW (11.5-15.5) % Plt Count (150-450) k/uL Neutrophils % % Lymphocytes % % Monocytes % % Eosinophils % % Basophils % % Neutrophils # (1.3-7.7) k/uL Lymphocytes # (1.0-4.8) k/uL Monocytes # (0-1.0) k/uL Eosinophils # (0-0.7) k/uL Basophils # (0-0.2) k/uL PT 10.7 (9.0-12.0) sec INR 1.1 (<1.2) APTT 24.8 (22.0-30.0) sec Sodium (137-145) mmol/L Potassium (3.5-5.1) mmol/L Chloride (98-107) mmol/L Carbon Dioxide (22-30) mmol/L Anion Gap mmol/L BUN (9-20) mg/dL Creatinine (0.66-1.25) mg/dL Est GFR (CKD-EPI)AfAm (>60 ml/min/1.73 sqM) Est GFR (CKD-EPI)NonAf (>60 ml/min/1.73 sqM) Glucose (74-99) mg/dL Plasma Lactic Acid Bandar 0.5 L (0.7-2.0) mmol/L Calcium (8.4-10.2) mg/dL Total Bilirubin (0.2-1.3) mg/dL AST (17-59) U/L ALT (21-72) U/L Alkaline Phosphatase (38-126) U/L Troponin I (0.000-0.034) ng/mL Total Protein (6.3-8.2) g/dL Albumin (3.5-5.0) g/dL Amylase (30-110) U/L Lipase (23-300) U/L Disposition Clinical Impression: Chronic pancreatitis Disposition: ADMITTED IP TO THIS HOSP Referrals: None,Stated [Primary Care Provider] - 1-2 days Time of Disposition: 13:43
[2017-12-06 12:35] LABS: Basophils % (A) 0 %; Eosinophils # (A) 0.1 k/uL (0-0.7); Eosinophils % (A) 1 %; HCT 37.5 % (39.0-53.0); HGB 12.4 gm/dL (13.0-17.5); Lymphocytes % (A) 9 %; MCH 30.1 pg (25.0-35.0); MCHC 33.1 g/dL (31.0-37.0); MCV 90.9 fL (80.0-100.0); Monocytes # (A) 0.5 k/uL (0-1.0); Monocytes % (A) 4 %; Neutrophils # (A) 9.6 k/uL (1.3-7.7); Neutrophils % (A) 86 %; Platelet Count 476 k/uL (150-450); RBC 4.13 m/uL (4.30-5.90); WBC 11.3 k/uL (3.8-10.6)
[2017-12-06 12:45] LABS: ALT 45 U/L (21-72); AST 61 U/L (17-59); Albumin 3.3 g/dL (3.5-5.0); Alkaline Phosphatase 223 U/L (38-126); Amylase 178 U/L (30-110); Anion Gap 8 mmol/L; Blood Urea Nitrogen 14 mg/dL (9-20); Calcium 8.7 mg/dL (8.4-10.2); Carbon Dioxide 26 mmol/L (22-30); Chloride 102 mmol/L (98-107); Glucose 97 mg/dL (74-99); Lipase 1486 U/L (23-300); Sodium 136 mmol/L (137-145); Total Bilirubin 0.6 mg/dL (0.2-1.3)
[2017-12-06 13:03] LABS: Potassium 4.1 mmol/L (3.5-5.1)
[2017-12-06 13:15] LABS: INR 1.1 (<1.2); Partial Thromboplastin Time 24.8 sec (22.0-30.0); Prothrombin Time 10.7 sec (9.0-12.0)
[2017-12-06] MEDS ORDERED: NALOXONE 0.4 MG/ML 1 ML VIAL IV PRN (13:38)
[2017-12-06] MEDS ORDERED: MORPHINE SULFATE 4 MG/ML SYRINGE IVP STA (14:01)
[2017-12-06] MEDS ORDERED: ALBUTEROL NEBULIZED 2.5 MG/3 ML INHALATION PRN (14:45)
--- NOTE | 2017-12-06 14:55 | P.HPIM ---
History of Present Illness 47-year-old male came in with the comments of epigastric abdominal pain. Patient has history of Cardizem quit drinking patient has history of enteritis and the past no pseudocyst during his last hospital physician had a recent upper GI endoscopy showed duodenitis-patient the started drinking 34 days ago beer and couple days ago had a hard liquor half a bottle. Patient denied any fever chills patient was nauseous. Patient has minimal epigastric abdominal tenderness, patient is also comparing of retrosternal burning sensation consistent with mostly alcoholic gastritis. Patient was started on Protonix nothing by mouth Will use Tylenol for pain. Patient's pain is about 7/10 in severity. Nonradiating burning sensation. Review of Systems REVIEW OF SYSTEMS: CONSTITUTIONAL: No fever, no malaise, no fatigue. HEENT: No recent visual problems or hearing problems. Denied any sore throat. CARDIOVASCULAR: No chest pain, orthopnea, PND, no palpitations, no syncope. PULMONARY: No shortness of breath, no cough, no hemoptysis. GASTROINTESTINAL: As mentioned above he denied any diarrhea NEUROLOGICAL: No headaches, no weakness, no numbness. HEMATOLOGICAL: Denies any bleeding or petechiae. GENITOURINARY: Denies any burning micturition, frequency, or urgency. MUSCULOSKELETAL/RHEUMATOLOGICAL: Denies any joint pain, swelling, or any muscle pain. ENDOCRINE: Denies any polyuria or polydipsia. The rest of the 14-point review of systems is negative. Past Medical History Past Medical History: GERD/Reflux, GI Bleed, Hyperlipidemia, Liver Disease, Pneumonia, Prostate Disorder Additional Past Medical History / Comment(s): ETOH ABUSE RECURRANT PANCREATITIS , ALCOHOLIC HEPATITIS, NEUROPATHY BILATERAL FEET SINCE BACK SURGERY, hx of CHRONIC URINARY RETENTION DUE TO BACK PROBLEMS-SELF CATHS, CHRONIC L HYDROURETERONEPHROSIS D/T REFLUX, CHRONIC LOW BACK PAIN (HAS STIMULATOR THAT PT STATES DOES NOT WORK), HEMATEMESIS, CHRONIC LOOSE STOOLS. History of Any Multi-Drug Resistant Organisms: None Reported Past Surgical History: Back Surgery, Cholecystectomy, Orthopedic Surgery Additional Past Surgical History / Comment(s): EGDS, colonoscopy, bronchoscopy, BACK surgeries with TITANIUM PLATES MILTON and CAGES, KIDNEY STONES removed per pt, SPINAL CORD STIMULATOR, ISMAEL KNEE ARTHROSCOPIES, PINKY FINGER RT HAND REATTATCHED Past Anesthesia/Blood Transfusion Reactions: No Reported Reaction Past Psychological History: Anxiety, Depression Additional Psychological History / Comment(s): PT LIVES AT HOME WITH in a 2 story home that has 3 porch steps/7 steps to 2nd floor.. 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 NO SERVICE.. occasionally uses either cane, walker or w/c also has shower chair and raised toilet seat. He does not drive, his can drive. Smoking Status: Current every day smoker Past Alcohol Use History: None Reported, Abuse, Daily Additional Past Alcohol Use History / Comment(s): Smokes 2 packs per day; ETOH ABUSE-last drank 2 days ago Past Drug Use History: None Reported Additional Drug Use History / Comment(s): Patient reports that he has not used Marijuana in over 13 months. - Past Family History Father Family Medical History: Diabetes Mellitus Additional Family Medical History / Comment(s): Mother Family Medical History: Dementia, Hyperlipidemia, Hypertension Additional Family Medical History / Comment(s): Mother is living. Medications and Allergies Home Medications Medication Instructions Recorded Confirmed Type Folic Acid 1 mg PO DAILY #30 tablet 07/15/15 12/06/17 Rx Atorvastatin [Lipitor] 10 mg PO HS 09/27/15 12/06/17 History Albuterol Inhaler [Ventolin Hfa 2 puff INHALATION RT-Q4H PRN 03/01/17 12/06/17 History Inhaler] traZODone HCL 50 mg PO HS 04/04/17 12/06/17 History Omeprazole [PriLOSEC] 40 mg PO BID #60 capsule. 05/16/17 12/06/17 Rx Gabapentin [Neurontin] 400 mg PO TID 07/18/17 12/06/17 History cloNIDine HCL [Catapres] 0.1 mg PO TID #30 tab 08/23/17 12/06/17 Rx Acetaminophen-Codeine 300-30mg 1 tab PO TID PRN 09/10/17 12/06/17 History [Tylenol w/codeine #3] DULoxetine HCL [Cymbalta] 60 mg PO DAILY 09/18/17 12/06/17 History Magnesium Oxide [Mag-Ox] 200 mg PO DAILY 09/18/17 12/06/17 History Tamsulosin HCl [Flomax] 0.4 mg PO DAILY 05/01/18 07/19/18 History Diazepam [Valium] 5 mg PO TID 10/20/17 12/06/17 History Lipase/Protease/Amylase [Creon Dr 2 cap PO TID-W/MEALS 10/20/17 12/06/17 History 24,000 Units Capsule] buPROPion XL [Wellbutrin XL] 150 mg PO DAILY 10/20/17 12/06/17 History Allergies Allergy/AdvReac Type Severity Reaction Status Date / Time No Known Allergies Allergy Verified 12/06/17 11:38 Physical Exam Vitals: Vital Signs Temp Pulse Resp BP Pulse Ox 12/06/17 13:36 83 16 148/96 100 12/06/17 11:24 98.5 F 88 18 123/84 99 Intake and Output 12/05/17 12/06/17 12/06/17 22:59 06:59 14:59 Other: Weight 51.9 kg PHYSICAL EXAMINATION: GENERAL: The patient is alert and oriented x3, not in any acute distress. Well developed, well nourished. HEENT: Pupils are round and equally reacting to light. EOMI. No scleral icterus. No conjunctival pallor. Normocephalic, atraumatic. No pharyngeal erythema. No thyromegaly. CARDIOVASCULAR: S1 and S2 present. No murmurs, rubs, or gallops. PULMONARY: Chest is clear to auscultation, no wheezing or crackles. ABDOMEN: Soft minimal epigastric abdominal tenderness no rebound or rigidity. MUSCULOSKELETAL: No joint swelling or deformity. EXTREMITIES: No cyanosis, clubbing, or pedal edema. NEUROLOGICAL: Gross neurological examination did not reveal any focal deficits. SKIN: No rashes. Results CBC & Chem 7: 12/06/17 12:21 12/06/17 12:21 Labs: Abnormal Lab Results - Last 24 Hours (Table) 12/06/17 12/06/17 12/06/17 Range/Units 12:21 12:21 12:46 WBC 11.3 H (3.8-10.6) k/uL RBC 4.13 L (4.30-5.90) m/uL Hgb 12.4 L (13.0-17.5) gm/dL Hct 37.5 L (39.0-53.0) % RDW 16.0 H (11.5-15.5) % Plt Count 476 H (150-450) k/uL Neutrophils # 9.6 H (1.3-7.7) k/uL Sodium 136 L (137-145) mmol/L Creatinine 0.53 L (0.66-1.25) mg/dL Plasma Lactic Acid Bandar 0.5 L (0.7-2.0) mmol/L AST 61 H (17-59) U/L Alkaline Phosphatase 223 H (38-126) U/L Total Protein 6.0 L (6.3-8.2) g/dL Albumin 3.3 L (3.5-5.0) g/dL Amylase 178 H (30-110) U/L Lipase 1486 H (23-300) U/L Assessment and Plan Plan: -Possibility of alcoholic gastritis low possibility of alcoholic pancreatitis in spite of elevated amylase and lipase. Patient was started on Protonix IV Tylenol for pain avoid opiates. -Alcohol abuse history: Counseling was provided Hyperlipidemia -Benign prostatic hypertrophy -Depression -Nicotine abuse: Counseling was provided Above-mentioned chronic medical problems patient will be resumed and continued on home medications
[2017-12-06] MEDS: SODIUM CHLORIDE 0.9% 1,000 ML IV SCH ×2 (14:56→18:03)
[2017-12-06 15:40] VITALS: RESP 16
[2017-12-06] MEDS: GABAPENTIN 400 MG CAP PO SCH ×2 (18:02→21:48)
[2017-12-06] MEDS: ACETAMINOPHEN IV (For NPO) 1,000 MG in EMPTY BAG 1 BAG IVPB SCH (18:04)
[2017-12-06] MEDS ORDERED: ATORVASTATIN 10 MG TAB PO SCH (21:00)
[2017-12-06 21:38] VITALS: TEMP 98
[2017-12-06] MEDS: PANTOPRAZOLE 40 MG/10 ML VIAL IVP SCH (21:48)
[2017-12-07] MEDS: ACETAMINOPHEN IV (For NPO) 1,000 MG in EMPTY BAG 1 BAG IVPB SCH ×3 (05:26→12:03)
[2017-12-07] MEDS: SODIUM CHLORIDE 0.9% 1,000 ML IV SCH ×2 (05:26→16:35)
[2017-12-07 05:27] VITALS: BP 154/89; PULSE 73
[2017-12-07] MEDS: GABAPENTIN 400 MG CAP PO SCH ×2 (08:41→16:35)
[2017-12-07] MEDS: PANTOPRAZOLE 40 MG/10 ML VIAL IVP SCH (08:41)
[2017-12-07] MEDS ORDERED: TAMSULOSIN 0.4 MG CAP.ER.24H PO SCH (09:00)
--- NOTE | 2017-12-07 10:09 | P.DS ---
Providers Date of admission: 12/06/17 13:38 Attending physician: Daniele Pizano Primary care physician: Stated None Hospital Course: 47-year-old admitted for alcoholic gastritis and possibility of alcoholic pancreatitis counseling was provided regarding this and the patient still complains of pain but the patient's abdomen is soft and repeat the lipase and start him on diet if he is able to tolerate patient will be discharged. PHYSICAL EXAMINATION: GENERAL: The patient is alert and oriented x3, not in any acute distress. Well developed, well nourished. HEENT: Pupils are round and equally reacting to light. EOMI. No scleral icterus. No conjunctival pallor. Normocephalic, atraumatic. No pharyngeal erythema. No thyromegaly. CARDIOVASCULAR: S1 and S2 present. No murmurs, rubs, or gallops. PULMONARY: Chest is clear to auscultation, no wheezing or crackles. ABDOMEN: Soft, nontender, nondistended, normoactive bowel sounds. No palpable organomegaly. MUSCULOSKELETAL: No joint swelling or deformity. EXTREMITIES: No cyanosis, clubbing, or pedal edema. NEUROLOGICAL: Gross neurological examination did not reveal any focal deficits. SKIN: No rashes. Assessment and Plan Plan: -Possibility of alcoholic gastritis low possibility of alcoholic pancreatitis in spite of elevated amylase and lipase. -Alcohol abuse history: Counseling was provided Hyperlipidemia -Benign prostatic hypertrophy -Depression -Nicotine abuse: Counseling was provided Plan - Discharge Summary Discharge Rx Participant: No New Discharge Prescriptions: Continue Folic Acid 1 mg PO DAILY #30 tablet Atorvastatin [Lipitor] 10 mg PO HS Albuterol Inhaler [Ventolin Hfa Inhaler] 2 puff INHALATION RT-Q4H PRN PRN Reason: Shortness Of Breath traZODone HCL 50 mg PO HS Omeprazole [PriLOSEC] 40 mg PO BID #60 capsule. Gabapentin [Neurontin] 400 mg PO TID cloNIDine HCL [Catapres] 0.1 mg PO TID #30 tab Acetaminophen-Codeine 300-30mg [Tylenol w/codeine #3] 1 tab PO TID PRN PRN Reason: pain DULoxetine HCL [Cymbalta] 60 mg PO DAILY Magnesium Oxide [Mag-Ox] 200 mg PO DAILY Tamsulosin HCl [Flomax] 0.4 mg PO DAILY buPROPion XL [Wellbutrin XL] 150 mg PO DAILY Diazepam [Valium] 5 mg PO TID Lipase/Protease/Amylase [Rebel Belcher 24,000 Units Capsule] 2 cap PO TID-W/MEALS Discharge Medication List Folic Acid 1 mg PO DAILY #30 tablet 07/15/15 [Rx] Atorvastatin [Lipitor] 10 mg PO HS 09/27/15 [History] Albuterol Inhaler [Ventolin Hfa Inhaler] 2 puff INHALATION RT-Q4H PRN 03/01/17 [ History] traZODone HCL 50 mg PO HS 04/04/17 [History] Omeprazole [PriLOSEC] 40 mg PO BID #60 capsule. 05/16/17 [Rx] Gabapentin [Neurontin] 400 mg PO TID 07/18/17 [History] cloNIDine HCL [Catapres] 0.1 mg PO TID #30 tab 08/23/17 [Rx] Acetaminophen-Codeine 300-30mg [Tylenol w/codeine #3] 1 tab PO TID PRN 09/10/17 [History] DULoxetine HCL [Cymbalta] 60 mg PO DAILY 09/18/17 [History] Magnesium Oxide [Mag-Ox] 200 mg PO DAILY 09/18/17 [History] Tamsulosin HCl [Flomax] 0.4 mg PO DAILY 09/18/17 [History] Diazepam [Valium] 5 mg PO TID 10/20/17 [History] Lipase/Protease/Amylase [Rebel Belcher 24,000 Units Capsule] 2 cap PO TID-W/MEALS 07/08 [History] buPROPion XL [Wellbutrin XL] 150 mg PO DAILY 10/20/17 [History] Follow up Appointment(s)/Referral(s): None,Stated [Primary Care Provider] - 1-2 days
[2017-12-07 11:26] LABS: Appearance,Urine Clear (Clear); Bacteria,Urine Rare /hpf; Bilirubin,Urine Negative (Negative); Blood,Urine Negative (Negative); Budding Yeast,Urine Rare /hpf; Color,Urine Light Yellow; Glucose,Urine (UA) Negative (Negative); Hyphae Yeast, Urine Rare /hpf; Ketones,Urine Negative (Negative); Leukocyte Esterase,Urine Moderate (Negative); Mucus,Urine Rare /hpf; Nitrite,Urine Negative (Negative); Protein,Urine Negative (Negative); RBC,Urine 7 /hpf (0-5); Specific Gravity,Urine 1.008 (1.001-1.035); Squamous Epithelial Cell,Urine <1 /hpf (0-4); Urobilinogen,Urine <2.0 mg/dL (<2.0); WBC,Urine 13 /hpf (0-5)
[2017-12-07] MEDS ORDERED: ONDANSETRON 4 MG/2 ML VIAL IM STA (12:18)
[2017-12-07] MEDS ORDERED: ONDANSETRON 4 MG/2 ML VIAL IVP STA (12:29)
== END 2017-12-07 16:30 | disposition home or self-care (01) | DRG 392 ==
LOC: EC 11:10 → 5MS5E 13:38
PROVIDERS: ADMIT Internal Medicine; ATTEND Internal Medicine
DX: K29.20 Alcoholic gastritis without bleeding (principal); K86.1 Other chronic pancreatitis; N13.30 Unspecified hydronephrosis; E78.5 Hyperlipidemia, unspecified; F10.10 Alcohol abuse, uncomplicated; F32.9 Major depressive disorder, single episode, unspecified; F41.9 Anxiety disorder, unspecified; K21.9 Gastro-esophageal reflux disease without esophagitis; N40.0 Benign prostatic hyperplasia without lower urinary tract symptoms; G62.9 Polyneuropathy, unspecified; G89.29 Other chronic pain; M54.5 Low back pain; R33.9 Retention of urine, unspecified; F17.210 Nicotine dependence, cigarettes, uncomplicated; Z79.899 Other long term (current) drug therapy; Z87.01 Personal history of pneumonia (recurrent); Z87.442 Personal history of urinary calculi; Z90.49 Acquired absence of other specified parts of digestive tract; Z98.1 Arthrodesis status; Z71.6 Tobacco abuse counseling; Z82.49 Family history of ischemic heart disease and other diseases of the circulatory system; Z83.3 Family history of diabetes mellitus; Z82.0 Family history of epilepsy and other diseases of the nervous system; Z84.89 Family history of other specified conditions
CPT/HCPCS: 36415; 80053; 81001; 82150; 83605; 83690; 84484; 85025; 85610; 85730; 94640; 96361; 96374; 96375; 99284

== ENCOUNTER 2017-12-11 12:18 | Emergency (ER) | payer MEDICARE, OTHER ==
[2017-12-11 12:30] VITALS: RESP 18
[2017-12-11] MEDS ORDERED: SODIUM CHLORIDE 0.9% 2,000 ML IV STA (12:50)
[2017-12-11] MEDS ORDERED: ONDANSETRON 4 MG/2 ML VIAL IVP STA ×2 (12:50→13:51)
[2017-12-11 13:09] LABS: Anisocytosis Slight; Basophils % (A) 0 %; Eosinophils # (A) 0.2 k/uL (0-0.7); Eosinophils % (A) 2 %; HCT 38.7 % (39.0-53.0); HGB 12.4 gm/dL (13.0-17.5); Lymphocytes # (A) 1.4 k/uL (1.0-4.8); Lymphocytes % (A) 15 %; MCH 29.6 pg (25.0-35.0); MCHC 32.1 g/dL (31.0-37.0); Mean Platelet Volume 7.1; Monocytes # (A) 0.5 k/uL (0-1.0); Monocytes % (A) 6 %; Neutrophils # (A) 6.9 k/uL (1.3-7.7); Neutrophils % (A) 76 %; Platelet Count 359 k/uL (150-450)
[2017-12-11 13:26] LABS: ALT 30 U/L (21-72); AST 18 U/L (17-59); Albumin 3.4 g/dL (3.5-5.0); Alkaline Phosphatase 213 U/L (38-126); Amylase 141 U/L (30-110); Anion Gap 6 mmol/L; Blood Urea Nitrogen 14 mg/dL (9-20); Calcium 8.8 mg/dL (8.4-10.2); Carbon Dioxide 26 mmol/L (22-30); Chloride 104 mmol/L (98-107); Glucose 101 mg/dL (74-99); Lipase 1540 U/L (23-300); Potassium 3.9 mmol/L (3.5-5.1); Sodium 136 mmol/L (137-145); Total Bilirubin 0.4 mg/dL (0.2-1.3); Total Protein 6.3 g/dL (6.3-8.2)
--- NOTE | 2017-12-11 13:28 | ED ---
Abdominal Pain HPI - General Chief Complaint: Abdominal Pain Stated Complaint: Abd Pain Time Seen by Provider: 12/11/17 12:48 Source: patient, RN notes reviewed Mode of arrival: wheelchair Limitations: no limitations - History of Present Illness Initial Comments: This a 47-year-old male presents emergency Department with chief complaint of abdominal pain. Patient has chronic pancreatitis. Patient states pain started yesterday after eating dinner. He has had episodes of vomiting. He states that he has not drank since beginning of the month. Patient did state that he' s been discharged from his most recent primary care physician. Patient reports no fever no chills no current chest pain shortness of breath headache or dizziness. Patient states the pain seems similar to his prior pancreatitis episodes. - Related Data Home Medications Medication Instructions Recorded Confirmed traZODone HCL 50 mg PO HS 04/04/17 12/11/17 Gabapentin [Neurontin] 400 mg PO TID 07/18/17 12/11/17 Acetaminophen-Codeine 300-30mg 1 tab PO Q6H PRN 09/10/17 12/11/17 [Tylenol w/codeine #3] Magnesium Oxide [Mag-Ox] 200 mg PO DAILY 09/18/17 12/11/17 Tamsulosin HCl [Flomax] 0.4 mg PO DAILY 09/18/17 12/11/17 Lipase/Protease/Amylase [Rebel Belcher 2 cap PO TID-W/MEALS 10/20/17 12/11/17 24,000 Units Capsule] buPROPion XL [Wellbutrin XL] 150 mg PO DAILY 10/20/17 12/11/17 Betamethasone Valerate [Luxiq 1%] 1 applic TOPICAL BID 12/11/17 12/11/17 Diazepam [Valium] 2 mg PO TID PRN 12/11/17 12/11/17 Previous Rx's Medication Instructions Recorded Omeprazole [PriLOSEC] 40 mg PO BID #60 capsule. 05/16/17 Allergies Allergy/AdvReac Type Severity Reaction Status Date / Time No Known Allergies Allergy Verified 12/11/17 13:20 Review of Systems ROS Statement: Those systems with pertinent positive or pertinent negative responses have been documented in the HPI. ROS Other: All systems not noted in ROS Statement are negative. Past Medical History Past Medical History: GERD/Reflux, GI Bleed, Hyperlipidemia, Liver Disease, Pneumonia, Prostate Disorder Additional Past Medical History / Comment(s): ETOH ABUSE RECURRANT PANCREATITIS , ALCOHOLIC HEPATITIS, NEUROPATHY BILATERAL FEET SINCE BACK SURGERY, hx of CHRONIC URINARY RETENTION DUE TO BACK PROBLEMS-SELF CATHS, CHRONIC L HYDROURETERONEPHROSIS D/T REFLUX, CHRONIC LOW BACK PAIN (HAS STIMULATOR THAT PT STATES DOES NOT WORK), HEMATEMESIS, CHRONIC LOOSE STOOLS. History of Any Multi-Drug Resistant Organisms: None Reported Past Surgical History: Back Surgery, Cholecystectomy, Orthopedic Surgery Additional Past Surgical History / Comment(s): EGDS, colonoscopy, bronchoscopy, BACK surgeries with TITANIUM PLATES MILTON and CAGES, KIDNEY STONES removed per pt, SPINAL CORD STIMULATOR, ISMAEL KNEE ARTHROSCOPIES, PINKY FINGER RT HAND REATTATCHED Past Anesthesia/Blood Transfusion Reactions: No Reported Reaction Past Psychological History: Anxiety, Depression Smoking Status: Current every day smoker Past Alcohol Use History: None Reported, Abuse, Daily Past Drug Use History: None Reported - Past Family History Father Family Medical History: Diabetes Mellitus Additional Family Medical History / Comment(s): Mother Family Medical History: Dementia, Hyperlipidemia, Hypertension Additional Family Medical History / Comment(s): Mother is living. General Exam Limitations: no limitations General appearance: alert, in no apparent distress Head exam: Present: atraumatic, normocephalic, normal inspection Respiratory exam: Present: normal lung sounds bilaterally. Absent: respiratory distress, wheezes, rales, rhonchi, stridor Cardiovascular Exam: Present: regular rate, normal rhythm, normal heart sounds. Absent: systolic murmur, diastolic murmur, rubs, gallop, clicks GI/Abdominal exam: Present: soft, tenderness, normal bowel sounds. Absent: distended, guarding, rebound, rigid Back exam: Absent: CVA tenderness (R), CVA tenderness (L) Skin exam: Present: warm, dry, intact, normal color. Absent: rash Course Vital Signs 12/11/17 12/11/17 12:28 14:20 Temperature 98.2 F Pulse Rate 74 81 Respiratory 18 18 Rate Blood Pressure 130/82 164/94 O2 Sat by Pulse 99 98 Oximetry Medical Decision Making - Medical Decision Making 47-year-old male presented for chronic pancreatitis. Patient is improved after IV fluids and antiemetics. Patient will be discharged at this time advised to stick to fluids only and progress diet as tolerated. - Lab Data Result diagrams: 12/11/17 12:56 12/11/17 12:56 Lab Results 12/11/17 12/11/17 Range/Units 12:56 12:56 WBC 9.0 (3.8-10.6) k/uL RBC 4.20 L (4.30-5.90) m/uL Hgb 12.4 L (13.0-17.5) gm/dL Hct 38.7 L (39.0-53.0) % MCV 92.0 (80.0-100.0) fL MCH 29.6 (25.0-35.0) pg MCHC 32.1 (31.0-37.0) g/dL RDW 16.0 H (11.5-15.5) % Plt Count 359 (150-450) k/uL Neutrophils % 76 % Lymphocytes % 15 % Monocytes % 6 % Eosinophils % 2 % Basophils % 0 % Neutrophils # 6.9 (1.3-7.7) k/uL Lymphocytes # 1.4 (1.0-4.8) k/uL Monocytes # 0.5 (0-1.0) k/uL Eosinophils # 0.2 (0-0.7) k/uL Basophils # 0.0 (0-0.2) k/uL Anisocytosis Slight Sodium 136 L (137-145) mmol/L Potassium 3.9 (3.5-5.1) mmol/L Chloride 104 (98-107) mmol/L Carbon Dioxide 26 (22-30) mmol/L Anion Gap 6 mmol/L BUN 14 (9-20) mg/dL Creatinine 0.56 L (0.66-1.25) mg/dL Est GFR (CKD-EPI)AfAm >90 (>60 ml/min/1.73 sqM) Est GFR (CKD-EPI)NonAf >90 (>60 ml/min/1.73 sqM) Glucose 101 H (74-99) mg/dL Calcium 8.8 (8.4-10.2) mg/dL Total Bilirubin 0.4 (0.2-1.3) mg/dL AST 18 (17-59) U/L ALT 30 (21-72) U/L Alkaline Phosphatase 213 H (38-126) U/L Total Protein 6.3 (6.3-8.2) g/dL Albumin 3.4 L (3.5-5.0) g/dL Amylase 141 H (30-110) U/L Lipase 1540 H (23-300) U/L Disposition Clinical Impression: Chronic pancreatitis Disposition: HOME SELF-CARE Condition: Stable Instructions: Pancreatitis (ED) Additional Instructions: Please return to the Emergency Department if symptoms worsen or any other concerns. Is patient prescribed a controlled substance at d/c from ED?: No Referrals: Kayla Morel MD [STAFF PHYSICIAN] - 1-2 days Time of Disposition: 14:34
[2017-12-11] MEDS ORDERED: KETOROLAC 30 MG/ML 1 ML VIAL IVP STA (13:29)
[2017-12-11] MEDS ORDERED: PANTOPRAZOLE 40 MG/10 ML VIAL IVP STA (13:51)
[2017-12-11 14:55] VITALS: BP 158/94; PULSE 75; TEMP 98.5
== END 2017-12-11 14:52 | disposition home or self-care (01) ==
LOC: EC 12:18
DX: K86.1 Other chronic pancreatitis (principal); E78.5 Hyperlipidemia, unspecified; G62.9 Polyneuropathy, unspecified; N42.9 Disorder of prostate, unspecified; F32.9 Major depressive disorder, single episode, unspecified; F41.9 Anxiety disorder, unspecified; F17.200 Nicotine dependence, unspecified, uncomplicated; Z79.899 Other long term (current) drug therapy; Z90.49 Acquired absence of other specified parts of digestive tract
CPT/HCPCS: 36415; 80053; 82150; 83690; 85025; 80320; 99284; 96374; 96375 ×2; 96376; 96361; J2405; J1885; C9113

== ENCOUNTER 2017-12-12 00:14 | Inpatient (IN) | payer MEDICARE, OTHER ==
[2017-12-12] MEDS ORDERED: SODIUM CHLORIDE 0.9% 1,000 ML IV STA (01:09)
[2017-12-12] MEDS ORDERED: ONDANSETRON 4 MG/2 ML VIAL IVP STA (01:09)
[2017-12-12] MEDS: MORPHINE SULFATE 4 MG/ML SYRINGE IVP PRN ×6 (01:57→20:28)
[2017-12-12 01:59] LABS: Anisocytosis Slight; Basophils % (A) 0 %; Eosinophils # (A) 0.2 k/uL (0-0.7); Eosinophils % (A) 2 %; HCT 33.6 % (39.0-53.0); HGB 10.9 gm/dL (13.0-17.5); Lymphocytes # (A) 1.3 k/uL (1.0-4.8); Lymphocytes % (A) 14 %; MCH 29.5 pg (25.0-35.0); MCHC 32.4 g/dL (31.0-37.0); MCV 91.2 fL (80.0-100.0); Mean Platelet Volume 7.7; Monocytes # (A) 0.4 k/uL (0-1.0); Monocytes % (A) 5 %; Neutrophils # (A) 7.2 k/uL (1.3-7.7); Neutrophils % (A) 79 %; Platelet Count 316 k/uL (150-450); RBC 3.69 m/uL (4.30-5.90); RDW 16.2 % (11.5-15.5); WBC 9.1 k/uL (3.8-10.6)
[2017-12-12 02:01] LABS: ALT 28 U/L (21-72); AST 17 U/L (17-59); Albumin 2.7 g/dL (3.5-5.0); Alkaline Phosphatase 165 U/L (38-126); Anion Gap 6 mmol/L; Blood Urea Nitrogen 13 mg/dL (9-20); Calcium 8.5 mg/dL (8.4-10.2); Carbon Dioxide 24 mmol/L (22-30); Chloride 107 mmol/L (98-107); Glucose 98 mg/dL (74-99); Potassium 3.9 mmol/L (3.5-5.1); Sodium 137 mmol/L (137-145); Total Bilirubin 0.3 mg/dL (0.2-1.3); Total Protein 5.2 g/dL (6.3-8.2)
[2017-12-12 02:16] LABS: Lipase 2668 U/L (23-300)
[2017-12-12] MEDS ORDERED: NALOXONE 0.4 MG/ML 1 ML VIAL IV PRN (03:09)
--- NOTE | 2017-12-12 03:09 | ED ---
General Adult HPI - General Chief complaint: Nausea/Vomiting/Diarrhea Stated complaint: Abdominal Pain, vomiting Source: patient Mode of arrival: EMS Limitations: no limitations - History of Present Illness Initial comments: Dictation was produced using [employer] dictation software. please excuse any grammatical, word or spelling errors. Chief Complaint: 37-year-old male past medical history of chronic pancreatitis presents with abdominal pain, nausea vomiting History of Present Illness:. Patient is a 47-year-old male with extensive history of alcoholism, chronic pancreatitis presents with chief complaint of abdominal pain. Patient was seen here yesterday for the same complaint. He was discharged. Patient is well-known to the emergency department for multiple visitations. Patient states his history of pancreatitis. Denies any EtOH abuse today. He has history of cholecystectomy. Denies any constitutional symptoms. The ROS documented in this emergency department record has been reviewed and confirmed by me. Those systems with pertinent positive or negative responses have been documented in the HPI. All other systems are other negative and/or noncontributory. - Related Data Home Medications Medication Instructions Recorded Confirmed traZODone HCL 50 mg PO HS 04/04/17 12/12/17 Gabapentin [Neurontin] 400 mg PO TID 07/18/17 12/12/17 Acetaminophen-Codeine 300-30mg 1 tab PO Q6H PRN 09/10/17 12/12/17 [Tylenol w/codeine #3] Magnesium Oxide [Mag-Ox] 200 mg PO DAILY 09/18/17 12/12/17 Tamsulosin HCl [Flomax] 0.4 mg PO DAILY 09/18/17 12/12/17 Lipase/Protease/Amylase [Rebel Belcher 2 cap PO TID-W/MEALS 10/20/17 12/12/17 24,000 Units Capsule] buPROPion XL [Wellbutrin XL] 150 mg PO DAILY 10/20/17 12/12/17 Betamethasone Valerate [Luxiq 1%] 1 applic TOPICAL BID 12/11/17 12/12/17 Diazepam [Valium] 2 mg PO TID PRN 12/11/17 12/12/17 Previous Rx's Medication Instructions Recorded Omeprazole [PriLOSEC] 40 mg PO BID #60 capsule. 05/16/17 Ibuprofen [Motrin] 600 mg PO Q8HR PRN #30 tab 12/11/17 Ondansetron Odt [Zofran Odt] 4 mg PO Q8HR PRN #10 tab 12/11/17 Allergies Allergy/AdvReac Type Severity Reaction Status Date / Time No Known Allergies Allergy Verified 12/12/17 00:26 Review of Systems ROS Statement: Those systems with pertinent positive or pertinent negative responses have been documented in the HPI. ROS Other: All systems not noted in ROS Statement are negative. Past Medical History Past Medical History: GERD/Reflux, GI Bleed, Hyperlipidemia, Liver Disease, Pneumonia, Prostate Disorder Additional Past Medical History / Comment(s): ETOH ABUSE RECURRANT PANCREATITIS , ALCOHOLIC HEPATITIS, NEUROPATHY BILATERAL FEET SINCE BACK SURGERY, hx of CHRONIC URINARY RETENTION DUE TO BACK PROBLEMS-SELF CATHS, CHRONIC L HYDROURETERONEPHROSIS D/T REFLUX, CHRONIC LOW BACK PAIN (HAS STIMULATOR THAT PT STATES DOES NOT WORK), HEMATEMESIS, CHRONIC LOOSE STOOLS. History of Any Multi-Drug Resistant Organisms: None Reported Past Surgical History: Back Surgery, Cholecystectomy, Orthopedic Surgery Additional Past Surgical History / Comment(s): EGDS, colonoscopy, bronchoscopy, BACK surgeries with TITANIUM PLATES MILTON and CAGES, KIDNEY STONES removed per pt, SPINAL CORD STIMULATOR, ISMAEL KNEE ARTHROSCOPIES, PINKY FINGER RT HAND REATTATCHED Past Anesthesia/Blood Transfusion Reactions: No Reported Reaction Past Psychological History: Anxiety, Depression Smoking Status: Current every day smoker Past Alcohol Use History: None Reported, Abuse, Daily Past Drug Use History: None Reported - Past Family History Father Family Medical History: Diabetes Mellitus Additional Family Medical History / Comment(s): Mother Family Medical History: Dementia, Hyperlipidemia, Hypertension Additional Family Medical History / Comment(s): Mother is living. General Exam - General Exam Comments Initial Comments: PHYSICAL EXAM: General Impression: Alert and oriented x3, not in acute distress HEENT: Normocephalic atraumatic, extra-ocular movements intact, pupils equal and reactive to light bilaterally, mucous membranes moist. Cardiovascular: Heart regular rate and rhythm, S1&S2 audible, no murmurs, rubs or gallops Chest: Lungs clear to auscultation bilaterally, no rhonchi, no wheeze, no rales Abdomen: Soft, tender to the epigastric region, positive bowel sounds Musculoskeletal: Pulses present and equal in all extremities, no peripheral edema Motor: Power 5/5 bilaterally, no focal deficits noted Neurological: CN II-XII grossly intact, no focal motor or sensory deficits noted Skin: Intact with no visualized rashes Psych: Normal affect and mood Limitations: no limitations Course Vital Signs 12/12/17 00:23 Temperature 98.9 F Pulse Rate 70 Respiratory 16 Rate Blood Pressure 145/89 O2 Sat by Pulse 100 Oximetry Medical Decision Making - Medical Decision Making ED course: 47-year-old male with extensive history of chronic pancreatitis presents with abdominal pain. Physical examination shows well- appearing male in no acute distress until his abdomen is palpated eliciting severe epigastric tenderness to palpation. Vital signs upon arrival shows no abnormal values. Laboratory evaluation obtained. CBC unremarkable. Metabolic panel was obtained. Patient's lipase is 2668. This number is well-appearing patient's recent baseline. Patient given intravenous fluids. He is to be nothing by mouth at this time. Given acute elevation in lipase level we will have patient admitted for fluid hydration, pain control and nothing by mouth status. Clinical presentation consistent with acute on chronic pancreatitis. - Lab Data Result diagrams: 12/12/17 01:30 12/12/17 01:30 Lab Results 12/12/17 12/12/17 Range/Units 01:30 01:30 WBC 9.1 (3.8-10.6) k/uL RBC 3.69 L (4.30-5.90) m/uL Hgb 10.9 L (13.0-17.5) gm/dL Hct 33.6 L (39.0-53.0) % MCV 91.2 (80.0-100.0) fL MCH 29.5 (25.0-35.0) pg MCHC 32.4 (31.0-37.0) g/dL RDW 16.2 H (11.5-15.5) % Plt Count 316 (150-450) k/uL Neutrophils % 79 % Lymphocytes % 14 % Monocytes % 5 % Eosinophils % 2 % Basophils % 0 % Neutrophils # 7.2 (1.3-7.7) k/uL Lymphocytes # 1.3 (1.0-4.8) k/uL Monocytes # 0.4 (0-1.0) k/uL Eosinophils # 0.2 (0-0.7) k/uL Basophils # 0.0 (0-0.2) k/uL Anisocytosis Slight Sodium 137 (137-145) mmol/L Potassium 3.9 (3.5-5.1) mmol/L Chloride 107 (98-107) mmol/L Carbon Dioxide 24 (22-30) mmol/L Anion Gap 6 mmol/L BUN 13 (9-20) mg/dL Creatinine 0.50 L (0.66-1.25) mg/dL Est GFR (CKD-EPI)AfAm >90 (>60 ml/min/1.73 sqM) Est GFR (CKD-EPI)NonAf >90 (>60 ml/min/1.73 sqM) Glucose 98 (74-99) mg/dL Calcium 8.5 (8.4-10.2) mg/dL Total Bilirubin 0.3 (0.2-1.3) mg/dL AST 17 (17-59) U/L ALT 28 (21-72) U/L Alkaline Phosphatase 165 H (38-126) U/L Total Protein 5.2 L (6.3-8.2) g/dL Albumin 2.7 L (3.5-5.0) g/dL Lipase 2668 H (23-300) U/L Disposition Clinical Impression: Pancreatitis Disposition: ADMITTED IP TO THIS [facility] Condition: Fair Referrals: None,Stated [Primary Care Provider] - 1-2 days Time of Disposition: 03:08
[2017-12-12] MEDS ORDERED: MORPHINE SULFATE 4 MG/ML SYRINGE IVP PRN (03:10)
[2017-12-12] MEDS: ONDANSETRON 4 MG/2 ML VIAL IVP PRN ×2 (03:55→12:26)
[2017-12-12] MEDS ORDERED: Acetaminophen-Codeine 300-30mg TAB PO PRN (13:20)
--- NOTE | 2017-12-12 13:50 | XR ---
EXAMINATION TYPE: XR chest 2V DATE OF EXAM: 12/12/2017 COMPARISON: 11/07/2017 TECHNIQUE: PA and lateral views submitted. HISTORY: Pain FINDINGS: The lungs are clear and there is no pneumothorax, pleural effusion, or focal pneumonia. Stimulator device overlying the thoracic spine. No overt failure. Hypertrophic change of the spine. Surgical cli ps in the abdomen. IMPRESSION: 1. No acute process.
[2017-12-12] MEDS: PANTOPRAZOLE 40 MG/10 ML VIAL IVP SCH (14:20)
[2017-12-12] MEDS: ACETAMINOPHEN IV (For NPO) 1,000 MG in EMPTY BAG 1 BAG IVPB SCH ×2 (14:20→17:11)
[2017-12-12] MEDS: NICOTINE 21MG/24HR PATCH TRANSDERM SCH (14:20)
[2017-12-12] MEDS: SODIUM CHLORIDE 0.9% 1,000 ML IV SCH ×2 (14:37→20:24)
[2017-12-12] MEDS: GABAPENTIN 400 MG CAP PO SCH ×2 (15:48→20:24)
--- NOTE | 2017-12-12 15:59 | P.HPIM ---
History of Present Illness 47-year-old the was recently discharged couple days ago after he was treated for gastritis alcoholic and pancreatitis. Patient had history of recurrent pancreatitis in the past as well. We'll obtain ultrasound of the abdomen to rule out any pseudocyst of pancreas and patient started having nausea vomiting since yesterday severe abdominal pain. Patient denied using any alcohol after his discharge. Patient denied any fever chills. Patient will be admitted with gastroenterology consult for pancreatitis and possibility of pancreatic pseudocyst in the past patient never had any pseudocyst the patient is on pancreatic enzyme supplementation which may be contributing to his elevated lipase and amylase and patient mostly has gastritis Review of Systems REVIEW OF SYSTEMS: CONSTITUTIONAL: No fever, no malaise, no fatigue. HEENT: No recent visual problems or hearing problems. Denied any sore throat. CARDIOVASCULAR: No chest pain, orthopnea, PND, no palpitations, no syncope. PULMONARY: No shortness of breath, no cough, no hemoptysis. GASTROINTESTINAL: As mentioned in HPI NEUROLOGICAL: No headaches, no weakness, no numbness. HEMATOLOGICAL: Denies any bleeding or petechiae. GENITOURINARY: Denies any burning micturition, frequency, or urgency. MUSCULOSKELETAL/RHEUMATOLOGICAL: Denies any joint pain, swelling, or any muscle pain. ENDOCRINE: Denies any polyuria or polydipsia. The rest of the 14-point review of systems is negative. Past Medical History Past Medical History: GERD/Reflux, GI Bleed, Hyperlipidemia, Liver Disease, Pneumonia, Prostate Disorder Additional Past Medical History / Comment(s): ETOH ABUSE RECURRANT PANCREATITIS , ALCOHOLIC HEPATITIS, NEUROPATHY BILATERAL FEET SINCE BACK SURGERY, hx of CHRONIC URINARY RETENTION DUE TO BACK PROBLEMS-SELF CATHS, CHRONIC L HYDROURETERONEPHROSIS D/T REFLUX, CHRONIC LOW BACK PAIN (HAS STIMULATOR THAT PT STATES DOES NOT WORK), HEMATEMESIS, CHRONIC LOOSE STOOLS. History of Any Multi-Drug Resistant Organisms: None Reported Past Surgical History: Back Surgery, Cholecystectomy, Orthopedic Surgery Additional Past Surgical History / Comment(s): EGDS, colonoscopy, bronchoscopy, BACK surgeries with TITANIUM PLATES MILTON and CAGES, KIDNEY STONES removed per pt, SPINAL CORD STIMULATOR, ISMAEL KNEE ARTHROSCOPIES, PINKY FINGER RT HAND REATTATCHED Past Anesthesia/Blood Transfusion Reactions: No Reported Reaction Smoking Status: Current every day smoker - Past Family History Father Family Medical History: Diabetes Mellitus Additional Family Medical History / Comment(s): Mother Family Medical History: Dementia, Hyperlipidemia, Hypertension Additional Family Medical History / Comment(s): Mother is living. Medications and Allergies Home Medications Medication Instructions Recorded Confirmed Type traZODone HCL 50 mg PO HS 04/04/17 12/12/17 History Omeprazole [PriLOSEC] 40 mg PO BID #60 capsule. 05/16/17 12/12/17 Rx Gabapentin [Neurontin] 400 mg PO TID 07/18/17 12/12/17 History Acetaminophen-Codeine 300-30mg 1 tab PO Q6H PRN 09/10/17 12/12/17 History [Tylenol w/codeine #3] Magnesium Oxide [Mag-Ox] 200 mg PO DAILY 09/18/17 12/12/17 History Tamsulosin HCl [Flomax] 0.4 mg PO DAILY 09/18/17 12/12/17 History Lipase/Protease/Amylase [Creon Dr 2 cap PO TID-W/MEALS 10/20/17 12/12/17 History 24,000 Units Capsule] Betamethasone Valerate [Luxiq 1%] 1 applic TOPICAL BID 12/11/17 12/12/17 History Diazepam [Valium] 2 mg PO TID PRN 12/11/17 12/12/17 History Ibuprofen [Motrin] 600 mg PO Q8HR PRN #30 tab 12/11/17 12/12/17 Rx Ondansetron Odt [Zofran Odt] 4 mg PO Q8HR PRN #10 tab 12/11/17 12/12/17 Rx buPROPion HCL [Wellbutrin XL] 300 mg PO DAILY 12/12/17 12/12/17 History Allergies Allergy/AdvReac Type Severity Reaction Status Date / Time No Known Allergies Allergy Verified 12/12/17 09:25 Physical Exam Vitals: Vital Signs Temp Pulse Pulse Resp BP BP Pulse Ox 12/12/17 14:56 98.4 F 78 18 134/87 99 12/12/17 14:23 98.1 F 85 18 135/75 97 12/12/17 12:28 73 178 H 157/92 98 12/12/17 08:00 98.3 F 73 16 166/88 98 12/12/17 04:00 88 18 169/88 98 12/12/17 00:23 98.9 F 70 16 145/89 100 Intake and Output 12/12/17 12/12/17 12/12/17 06:59 14:59 22:59 Other: Weight 54.068 kg PHYSICAL EXAMINATION: GENERAL: The patient is alert and oriented x3, not in any acute distress. Well developed, well nourished. HEENT: Pupils are round and equally reacting to light. EOMI. No scleral icterus. No conjunctival pallor. Normocephalic, atraumatic. No pharyngeal erythema. No thyromegaly. CARDIOVASCULAR: S1 and S2 present. No murmurs, rubs, or gallops. PULMONARY: Chest is clear to auscultation, no wheezing or crackles. ABDOMEN: Soft, minimal epigastric abdominal tenderness no rebound or rigidity. MUSCULOSKELETAL: No joint swelling or deformity. EXTREMITIES: No cyanosis, clubbing, or pedal edema. NEUROLOGICAL: Gross neurological examination did not reveal any focal deficits. SKIN: No rashes. Results CBC & Chem 7: 12/12/17 01:30 12/12/17 01:30 Labs: Abnormal Lab Results - Last 24 Hours (Table) 12/12/17 12/12/17 Range/Units 01:30 01:30 RBC 3.69 L (4.30-5.90) m/uL Hgb 10.9 L (13.0-17.5) gm/dL Hct 33.6 L (39.0-53.0) % RDW 16.2 H (11.5-15.5) % Creatinine 0.50 L (0.66-1.25) mg/dL Alkaline Phosphatase 165 H (38-126) U/L Total Protein 5.2 L (6.3-8.2) g/dL Albumin 2.7 L (3.5-5.0) g/dL Lipase 2668 H (23-300) U/L Assessment and Plan Plan: -Abdominal pain: Secondary to mostly gastritis there is a elevation of amylase and lipase which can be secondary to the supplements he is taking. I cannot completely rule out acute pancreatitis either will obtain ultrasound to rule out any pseudocyst, gastroenterology will be consulted patient will remain nothing by mouth today. -Gastritis: For because her disease, alcohol related recent alcohol was just before his previous hospitalization -Hyperlipidemia -Benign prostatic hypertrophy Depression
[2017-12-12] MEDS: LUXIQ TOPICAL SCH (19:43)
[2017-12-13] MEDS ORDERED: MORPHINE SULFATE 4 MG/ML SYRINGE ONE (04:20)
[2017-12-13] MEDS: ACETAMINOPHEN IV (For NPO) 1,000 MG in EMPTY BAG 1 BAG IVPB SCH ×2 (04:57→06:10)
[2017-12-13 06:55] VITALS: BP 137/89; PULSE 74; RESP 16; TEMP 98.2
[2017-12-13 08:02] LABS: HCT 31.3 % (39.0-53.0); HGB 10.1 gm/dL (13.0-17.5); MCH 30.4 pg (25.0-35.0); MCHC 32.3 g/dL (31.0-37.0); MCV 94.3 fL (80.0-100.0); Platelet Count 227 k/uL (150-450); RBC 3.32 m/uL (4.30-5.90); WBC 7.1 k/uL (3.8-10.6)
[2017-12-13] MEDS: NICOTINE 21MG/24HR PATCH TRANSDERM SCH (08:21)
[2017-12-13] MEDS: MORPHINE SULFATE 4 MG/ML SYRINGE IVP PRN ×2 (08:22→12:09)
[2017-12-13] MEDS: PANTOPRAZOLE 40 MG/10 ML VIAL IVP SCH (08:22)
[2017-12-13] MEDS: GABAPENTIN 400 MG CAP PO SCH (08:22)
[2017-12-13] MEDS ORDERED: TAMSULOSIN 0.4 MG CAP.ER.24H PO SCH (09:00)
[2017-12-13] MEDS ORDERED: buPROPion XL 300 MG TAB.ER.24H PO SCH (09:00)
--- NOTE | 2017-12-13 09:16 | US ---
EXAMINATION TYPE: US gallbladder DATE OF EXAM: 12/13/2017 COMPARISON: US 10/05/2017, CT 10/25/2017 CLINICAL HISTORY: pancreatic pseudocyst. GB surgically absent. Abdominal pain EXAM MEASUREMENTS: Liver Length: 13.7 cm Gallbladder Wall: Surgically absent CBD: 0.5 cm Right Kidney: 10.6 x 5.3 x 5.0 cm Pancreas: Obscured by bowel gas, visualized portions of the head appear edematous. Possible fluid fi lled bowel visualized superior to the pancreas Liver: Free fluid visualized adjacent to the liver Gallbladder: Surgically absent Evidence for sonographic Deluca's sign: No CBD: wnl as visualized, distal portion obscured by bowel gas Right Kidney: No hydronephrosis or masses seen IMPRESSION: 1. The pancreas is limited in assessment but there appears to be an abnormality in the region of the pancreatic head. Free fluid adjacent to the liver and pancreas is suggested. Prominence of the pancre atic head may be related to edema and pancreatitis as noted by recent CT scan. Interval change could be more accurately assessed with repeat CT scan. Follow-up to resolution recommended to exclude under lying neoplasm. Correlate clinically.
[2017-12-13] MEDS: SODIUM CHLORIDE 0.9% 1,000 ML IV SCH (09:29)
[2017-12-13 11:25] VITALS: BMI 19.2
[2017-12-13] MEDS: ONDANSETRON 4 MG/2 ML VIAL IVP PRN (12:19)
--- NOTE | 2017-12-13 12:37 | P.CONS ---
History of Present Illness - Reason for Consult Consult date: 12/13/17 Pancreatitis Requesting physician: Daniele Pizano - History of Present Illness 47-year-old male with a history of alcohol abuse multiple hospitalizations secondary to chronic relapsing alcohol pancreatitis admitted with recurrent upper abdominal pain elevated pancreatic enzymes consistent with pancreatitis. Lipase 2668 presently 771. LFTs within normal limits with the exception of alkaline phosphatase 165. Afebrile. Last alcohol drink Memorial weekend. Reports persistent weight loss decreased appetite secondary to pain. Denies hematemesis hematochezia or melena. Ultrasound abdomen appears to be an abnormality in the region of the pancreatic head free fluid adjacent to the liver and pancreas is suggested. Prominence of the pancreatic head may be related to edema and pancreatitis. CA-19-26 Sep 2017 was within normal limits. Review of Systems Constitutional: Denies fever, chills, sweats, weight gain, or loss. HEENT: Negative for migraines, blurred vision or loss, earaches, drainage, tinnitus, oral mucosal lesions, dysphagia, or odynophagia. Cardiac: Negative for chest pain, arrhythmias, or palpitation. Respiratory: Negative for shortness of breath, hemoptysis, cough, or sputum production. Gastrointestinal: See HPI for pertinent findings. Genitourinary: Negative for hematuria, urgency, frequency, polyuria, dysuria, or penile discharge. Musculoskeletal: Negative for muscle aches, swelling, arthritis, and arthralgias. Neurologic: Negative for stroke or TIA. Endocrine: Negative for thyroid problems. Skin: Negative for rash or itching. Psychiatric: Negative history for depression and anxiety Past Medical History Past Medical History: GERD/Reflux, GI Bleed, Hyperlipidemia, Liver Disease, Pneumonia, Prostate Disorder Additional Past Medical History / Comment(s): ETOH ABUSE RECURRANT PANCREATITIS , ALCOHOLIC HEPATITIS, NEUROPATHY BILATERAL FEET SINCE BACK SURGERY, hx of CHRONIC URINARY RETENTION DUE TO BACK PROBLEMS-SELF CATHS, CHRONIC L HYDROURETERONEPHROSIS D/T REFLUX, CHRONIC LOW BACK PAIN (HAS STIMULATOR THAT PT STATES DOES NOT WORK), HEMATEMESIS, CHRONIC LOOSE STOOLS. History of Any Multi-Drug Resistant Organisms: None Reported Past Surgical History: Back Surgery, Cholecystectomy, Orthopedic Surgery Additional Past Surgical History / Comment(s): EGDS, colonoscopy, bronchoscopy, BACK surgeries with TITANIUM PLATES MILTON and CAGES, KIDNEY STONES removed per pt, SPINAL CORD STIMULATOR, ISMAEL KNEE ARTHROSCOPIES, PINKY FINGER RT HAND REATTATCHED Past Anesthesia/Blood Transfusion Reactions: No Reported Reaction Smoking Status: Current every day smoker - Past Family History Father Family Medical History: Diabetes Mellitus Additional Family Medical History / Comment(s): Mother Family Medical History: Dementia, Hyperlipidemia, Hypertension Additional Family Medical History / Comment(s): Mother is living. Medications and Allergies Home Medications Medication Instructions Recorded Confirmed Type traZODone HCL 50 mg PO HS 04/04/17 12/12/17 History Omeprazole [PriLOSEC] 40 mg PO BID #60 capsule.dr 05/16/17 12/12/17 Rx Gabapentin [Neurontin] 400 mg PO TID 07/18/17 12/12/17 History Acetaminophen-Codeine 300-30mg 1 tab PO Q6H PRN 09/10/17 12/12/17 History [Tylenol w/codeine #3] Magnesium Oxide [Mag-Ox] 200 mg PO DAILY 09/18/17 12/12/17 History Tamsulosin HCl [Flomax] 0.4 mg PO DAILY 09/18/17 12/12/17 History Lipase/Protease/Amylase [Creon Dr 2 cap PO TID-W/MEALS 10/20/17 12/12/17 History 24,000 Units Capsule] Betamethasone Valerate [Luxiq 1%] 1 applic TOPICAL BID 12/11/17 12/12/17 History Diazepam [Valium] 2 mg PO TID PRN 12/11/17 12/12/17 History Ibuprofen [Motrin] 600 mg PO Q8HR PRN #30 tab 12/11/17 12/12/17 Rx Ondansetron Odt [Zofran Odt] 4 mg PO Q8HR PRN #10 tab 12/11/17 12/12/17 Rx buPROPion HCL [Wellbutrin XL] 300 mg PO DAILY 12/12/17 12/12/17 History Allergies Allergy/AdvReac Type Severity Reaction Status Date / Time No Known Allergies Allergy Verified 12/12/17 09:25 Physical Exam Vitals: Vital Signs Temp Pulse Pulse Resp BP BP Pulse Ox 12/13/17 06:15 98.2 F 74 16 137/89 98 12/12/17 14:56 98.4 F 78 18 134/87 99 12/12/17 14:23 98.1 F 85 18 135/75 97 Intake and Output 12/12/17 12/13/17 12/13/17 22:59 06:59 14:59 Output Total 400 Balance -400 Output: Urine 400 Straight 400 Other: # Voids 0 0 Weight 54.068 kg General appearance: The patient is alert, oriented, in no acute distress. Thin cachectic appearance. HET: Head is normocephalic and atraumatic. Pupils are equal and reactive. Oropharynx is clear without lesions. Neck: Supple without lymphadenopathy. Trachea midline. Heart: S1 S2. Regular rate and rhythm. Lungs: No crackles or wheezes are heard. Abdomen: Soft, tenderness midepigastrium left upper quadrant, nondistended with bowel sounds. No peritoneal signs. No palpable organomegaly or masses. Extremities: Normal skin color and turgor. No cyanosis, rash, ulceration, clubbing, or edema. Radial and pedal pulses are 2/4 bilaterally. Neurological: No focal deficits. Strength and sensation are grossly intact. Results CBC & Chem 7: 12/13/17 07:16 12/12/17 01:30 Labs: Abnormal Lab Results - Last 24 Hours (Table) 12/13/17 12/13/17 Range/Units 07:16 07:16 RBC 3.32 L (4.30-5.90) m/uL Hgb 10.1 L (13.0-17.5) gm/dL Hct 31.3 L (39.0-53.0) % RDW 16.0 H (11.5-15.5) % Lipase 771 H (23-300) U/L US - abdomen: report reviewed (Dr. Kellogg) Assessment and Plan (1) Pancreatitis Current Visit: Yes Status: Acute Code(s): K85.90 - ACUTE PANCREATITIS WITHOUT NECROSIS OR INFECTION, UNSP SNOMED Code(s): 83763179 (2) History of ETOH abuse Current Visit: Yes Status: Acute Code(s): Z87.898 - PERSONAL HISTORY OF OTHER SPECIFIED CONDITIONS SNOMED Code(s): 635985817 Plan: 1. Clear liquid diet with ensure 3 times daily. Outpatient endoscopic ultrasound recommended GI office will assist with referral. [facility] Will notify patient in 2-5 business days with additional instructions and appointment time. Dietary consultation. Alcohol abstinence reinforced. Thank you for this kind referral and the opportunity to participate in the care of your patient. This consultation was discussed with Dr. Kellogg. The impression and plan of care have been directed as dictated.
[2017-12-13] MEDS: LUXIQ TOPICAL SCH (13:35)
--- NOTE | 2017-12-13 15:36 | P.DS ---
Providers Date of admission: 12/12/17 03:09 Attending physician: Socorro Barragan Consults: 12/12/17 13:18 Consult Physician Routine Consulting Provider: Consuelo Kellogg Consult Reason/Comments: Pancreatitis Do you want consulting provider notified?: Yes Primary care physician: Stated None Hospital Course: 47-year-old the was recently discharged couple days ago after he was treated for gastritis alcoholic and pancreatitis. Patient had history of recurrent pancreatitis in the past as well. We'll obtain ultrasound of the abdomen to rule out any pseudocyst of pancreas and patient started having nausea vomiting since yesterday severe abdominal pain. Patient denied using any alcohol after his discharge. Patient denied any fever chills. Patient will be admitted with gastroenterology consult for pancreatitis and possibility of pancreatic pseudocyst in the past patient never had any pseudocyst the patient is on pancreatic enzyme supplementation which may be contributing to his elevated lipase and amylase and patient mostly has gastritis 12/13/2017 Ultrasound did not show any pseudocyst but there is edema of the pancreatic head and mass cannot be ruled out because of which are gastroneurology is recommending endoscopic ultrasound as an outpatient and they will follow with the patient as an outpatient. Patient's abdominal pain improved able to tolerate full liquid diet cleared for discharge patient will be discharged today. PHYSICAL EXAMINATION: GENERAL: The patient is alert and oriented x3, not in any acute distress. Well developed, well nourished. HEENT: Pupils are round and equally reacting to light. EOMI. No scleral icterus. No conjunctival pallor. Normocephalic, atraumatic. No pharyngeal erythema. No thyromegaly. CARDIOVASCULAR: S1 and S2 present. No murmurs, rubs, or gallops. PULMONARY: Chest is clear to auscultation, no wheezing or crackles. ABDOMEN: Soft, minimal epigastric abdominal tenderness no rebound or rigidity. MUSCULOSKELETAL: No joint swelling or deformity. EXTREMITIES: No cyanosis, clubbing, or pedal edema. NEUROLOGICAL: Gross neurological examination did not reveal any focal deficits. SKIN: No rashes. Assessment and Plan Plan: -Abdominal pain: Secondary to mostly gastritis there is a elevation of amylase and lipase which can be secondary to the supplements he is taking. I cannot completely rule out acute pancreatitis -Gastritis: alcohol related recent alcohol was just before his previous hospitalization -Hyperlipidemia -Benign prostatic hypertrophy Depression Patient Condition at Discharge: Fair Plan - Discharge Summary Discharge Rx Participant: No New Discharge Prescriptions: Discontinued Ibuprofen [Motrin] 600 mg PO Q8HR PRN #30 tab PRN Reason: Pain No Action traZODone HCL 50 mg PO HS Omeprazole [PriLOSEC] 40 mg PO BID #60 capsule. Gabapentin [Neurontin] 400 mg PO TID Acetaminophen-Codeine 300-30mg [Tylenol w/codeine #3] 1 tab PO Q6H PRN PRN Reason: pain Magnesium Oxide [Mag-Ox] 200 mg PO DAILY Tamsulosin HCl [Flomax] 0.4 mg PO DAILY Lipase/Protease/Amylase [Rebel Belcher 24,000 Units Capsule] 2 cap PO TID-W/MEALS Diazepam [Valium] 2 mg PO TID PRN PRN Reason: Anxiety Betamethasone Valerate [Luxiq 1%] 1 applic TOPICAL BID Ondansetron Odt [Zofran Odt] 4 mg PO Q8HR PRN #10 tab PRN Reason: Nausea buPROPion HCL [Wellbutrin XL] 300 mg PO DAILY Discharge Medication List traZODone HCL 50 mg PO HS 04/04/17 [History] Omeprazole [PriLOSEC] 40 mg PO BID #60 capsule. 05/16/17 [Rx] Gabapentin [Neurontin] 400 mg PO TID 07/18/17 [History] Acetaminophen-Codeine 300-30mg [Tylenol w/codeine #3] 1 tab PO Q6H PRN 09/10/17 [History] Magnesium Oxide [Mag-Ox] 200 mg PO DAILY 09/18/17 [History] Tamsulosin HCl [Flomax] 0.4 mg PO DAILY 09/18/17 [History] Lipase/Protease/Amylase [Rebel Belcher 24,000 Units Capsule] 2 cap PO TID-W/MEALS 07/08 [History] Betamethasone Valerate [Luxiq 1%] 1 applic TOPICAL BID 12/11/17 [History] Diazepam [Valium] 2 mg PO TID PRN 12/11/17 [History] Ondansetron Odt [Zofran Odt] 4 mg PO Q8HR PRN #10 tab 12/11/17 [Rx] buPROPion HCL [Wellbutrin XL] 300 mg PO DAILY 12/12/17 [History] Follow up Appointment(s)/Referral(s): Kerri Quinones MD [STAFF PHYSICIAN] - 1 Week (new physician , client will call office for admitting information) None,Stated [Primary Care Provider] - 1-2 days Patient Instructions/Handouts: Pancreatic Pseudocyst (DC) Activity/Diet/Wound Care/Special Instructions: No smoking, cessation information given. Regular diet. NO alcohol. If problems persist, go to primary care doctor for eval. Keep appointments as scheduled. Discharge Disposition: HOME SELF-CARE
== END 2017-12-13 13:37 | disposition home or self-care (01) | DRG 391 ==
LOC: EC 00:14 → 4MS4W 03:09
PROVIDERS: ADMIT Hospitalist; ATTEND Hospitalist
DX: K29.20 Alcoholic gastritis without bleeding (principal); K85.20 Alcohol induced acute pancreatitis without necrosis or infection; K86.0 Alcohol-induced chronic pancreatitis; N13.30 Unspecified hydronephrosis; F10.20 Alcohol dependence, uncomplicated; E78.5 Hyperlipidemia, unspecified; F17.200 Nicotine dependence, unspecified, uncomplicated; F32.9 Major depressive disorder, single episode, unspecified; K21.9 Gastro-esophageal reflux disease without esophagitis; N40.1 Benign prostatic hyperplasia with lower urinary tract symptoms; R33.8 Other retention of urine; M54.5 Low back pain; G89.29 Other chronic pain; R19.7 Diarrhea, unspecified; Z71.41 Alcohol abuse counseling and surveillance of alcoholic; Z79.899 Other long term (current) drug therapy; Z82.49 Family history of ischemic heart disease and other diseases of the circulatory system; Z83.3 Family history of diabetes mellitus; Z87.442 Personal history of urinary calculi; Z90.49 Acquired absence of other specified parts of digestive tract; Z71.6 Tobacco abuse counseling
CPT/HCPCS: 36415; 71046; 76705; 80053; 80320; 82150; 82570; 83690; 84134; 85025; 85027; 96361; 96374; 96375; 96376; 99284; 99285

== ENCOUNTER 2017-12-18 21:01 | Inpatient (IN) | payer MEDICARE, OTHER ==
[2017-12-18] MEDS ORDERED: MORPHINE SULFATE 4 MG/ML SYRINGE IV STA (21:51)
[2017-12-18] MEDS ORDERED: SODIUM CHLORIDE 0.9% 500 ML IV STA (21:51)
[2017-12-18] MEDS ORDERED: PANTOPRAZOLE 40 MG/10 ML VIAL IVP STA (21:51)
[2017-12-18] MEDS ORDERED: ONDANSETRON 4 MG/2 ML VIAL IVP STA (21:51)
[2017-12-18] MEDS ORDERED: SODIUM CHLORIDE 0.9% 1,000 ML IV STA ×2 (21:51)
--- NOTE | 2017-12-18 22:01 | ED ---
General Adult HPI - General Chief complaint: Chest Pain Stated complaint: Chest Pain Time Seen by Provider: 12/18/17 21:47 Source: patient, RN notes reviewed, old records reviewed Mode of arrival: wheelchair Limitations: no limitations - History of Present Illness Initial comments: Unknown this is a 47-year-old male the ER for evaluation patient is ER for evasive severe abdominal pain severe nausea severe vomiting. History of chronic pancreatitis history of alcohol-induced pancreatitis, patient is multiple ER admissions and evaluations for same. Patient states he cannot he cannot drink he is losing significant amounts of weight - Related Data Home Medications Medication Instructions Recorded Confirmed traZODone HCL 50 mg PO HS 04/04/17 12/18/17 Gabapentin [Neurontin] 400 mg PO TID 07/18/17 12/18/17 Acetaminophen-Codeine 300-30mg 1 tab PO Q6H PRN 09/10/17 12/18/17 [Tylenol w/codeine #3] Magnesium Oxide [Mag-Ox] 200 mg PO DAILY 09/18/17 12/18/17 Tamsulosin HCl [Flomax] 0.4 mg PO DAILY 09/18/17 12/18/17 Lipase/Protease/Amylase [Creletha Belcher 2 cap PO TID-W/MEALS 10/20/17 12/18/17 24,000 Units Capsule] Betamethasone Valerate [Luxiq 1%] 1 applic TOPICAL BID 12/11/17 12/18/17 Diazepam [Valium] 2 mg PO TID PRN 12/11/17 12/18/17 buPROPion HCL [Wellbutrin XL] 300 mg PO DAILY 12/12/17 12/18/17 Previous Rx's Medication Instructions Recorded Omeprazole [PriLOSEC] 40 mg PO BID #60 capsule. 05/16/17 Ondansetron Odt [Zofran Odt] 4 mg PO Q8HR PRN #10 tab 12/11/17 Allergies Allergy/AdvReac Type Severity Reaction Status Date / Time No Known Allergies Allergy Verified 12/18/17 22:02 Review of Systems ROS Statement: Those systems with pertinent positive or pertinent negative responses have been documented in the HPI. ROS Other: All systems not noted in ROS Statement are negative. Past Medical History Past Medical History: GERD/Reflux, GI Bleed, Hyperlipidemia, Liver Disease, Pneumonia, Prostate Disorder Additional Past Medical History / Comment(s): ETOH ABUSE RECURRANT PANCREATITIS , ALCOHOLIC HEPATITIS, NEUROPATHY BILATERAL FEET SINCE BACK SURGERY, hx of CHRONIC URINARY RETENTION DUE TO BACK PROBLEMS-SELF CATHS, CHRONIC L HYDROURETERONEPHROSIS D/T REFLUX, CHRONIC LOW BACK PAIN (HAS STIMULATOR THAT PT STATES DOES NOT WORK), HEMATEMESIS, CHRONIC LOOSE STOOLS. History of Any Multi-Drug Resistant Organisms: None Reported Past Surgical History: Back Surgery, Cholecystectomy, Orthopedic Surgery Additional Past Surgical History / Comment(s): EGDS, colonoscopy, bronchoscopy, BACK surgeries with TITANIUM PLATES MILTON and CAGES, KIDNEY STONES removed per pt, SPINAL CORD STIMULATOR, ISMAEL KNEE ARTHROSCOPIES, PINKY FINGER RT HAND REATTATCHED Past Anesthesia/Blood Transfusion Reactions: No Reported Reaction Past Psychological History: Anxiety, Depression Smoking Status: Current every day smoker Past Alcohol Use History: None Reported Past Drug Use History: None Reported - Past Family History Father Family Medical History: Diabetes Mellitus Additional Family Medical History / Comment(s): Mother Family Medical History: Dementia, Hyperlipidemia, Hypertension Additional Family Medical History / Comment(s): Mother is living. General Exam Limitations: no limitations General appearance: alert, in no apparent distress, anxious Head exam: Present: atraumatic, normocephalic, normal inspection Eye exam: Present: normal appearance, PERRL, EOMI. Absent: scleral icterus, conjunctival injection, periorbital swelling ENT exam: Present: normal exam, mucous membranes moist Neck exam: Present: normal inspection. Absent: tenderness, meningismus, lymphadenopathy Respiratory exam: Present: normal lung sounds bilaterally. Absent: respiratory distress, wheezes, rales, rhonchi, stridor Cardiovascular Exam: Present: regular rate, normal rhythm, normal heart sounds. Absent: systolic murmur, diastolic murmur, rubs, gallop, clicks GI/Abdominal exam: Present: soft, normal bowel sounds. Absent: distended, tenderness, guarding, rebound, rigid Extremities exam: Present: normal inspection, full ROM, normal capillary refill. Absent: tenderness, pedal edema, joint swelling, calf tenderness Back exam: Present: normal inspection Neurological exam: Present: alert, oriented X3, CN II-XII intact Psychiatric exam: Present: normal affect, normal mood Skin exam: Present: warm, dry, intact, normal color. Absent: rash Course Vital Signs 12/18/17 12/18/1712/18/18 21:13 22:38 22:40 Temperature 98.5 F Pulse Rate 89 72 Respiratory 18 18 18 Rate Blood Pressure 125/80 174/98 O2 Sat by Pulse 100 100 Oximetry 12/18/17 23:31 Temperature Pulse Rate 76 Respiratory 15 Rate Blood Pressure 172/100 O2 Sat by Pulse 100 Oximetry - Reevaluation(s) Reevaluation #1: 12/18/17 23:52 Medical records thoroughly reviewed Reevaluation #2: 12/18/17 23:[address] Trejo, Anette Gabriel has been dropped from [facility] EKG Findings - EKG Comments: EKG Findings:: EKG shows normal sinus rhythm rate of 72, LA 150, QRS 76, QTc 440 Medical Decision Making - Medical Decision Making 47 male evaluation of abdominal pain positive pancreatitis acute on chronic pancreatitis will admit for IV resuscitation - Lab Data Result diagrams: 12/18/17 22:22 12/18/17 22:22 Lab Results 12/18/17 12/18/17 Range/Units 22:22 22:22 WBC 8.1 (3.8-10.6) k/uL RBC 3.81 L (4.30-5.90) m/uL Hgb 11.2 L (13.0-17.5) gm/dL Hct 34.9 L (39.0-53.0) % MCV 91.6 (80.0-100.0) fL MCH 29.3 (25.0-35.0) pg MCHC 32.0 (31.0-37.0) g/dL RDW 15.6 H (11.5-15.5) % Plt Count 303 (150-450) k/uL Neutrophils % 72 % Lymphocytes % 18 % Monocytes % 6 % Eosinophils % 3 % Basophils % 0 % Neutrophils # 5.8 (1.3-7.7) k/uL Lymphocytes # 1.4 (1.0-4.8) k/uL Monocytes # 0.5 (0-1.0) k/uL Eosinophils # 0.3 (0-0.7) k/uL Basophils # 0.0 (0-0.2) k/uL Sodium 136 L (137-145) mmol/L Potassium 5.0 (3.5-5.1) mmol/L Chloride 105 (98-107) mmol/L Carbon Dioxide 26 (22-30) mmol/L Anion Gap 5 mmol/L BUN 18 (9-20) mg/dL Creatinine 0.60 L (0.66-1.25) mg/dL Est GFR (CKD-EPI)AfAm >90 (>60 ml/min/1.73 sqM) Est GFR (CKD-EPI)NonAf >90 (>60 ml/min/1.73 sqM) Glucose 90 (74-99) mg/dL Calcium 8.9 (8.4-10.2) mg/dL Total Bilirubin 0.4 (0.2-1.3) mg/dL AST 25 (17-59) U/L ALT 36 (21-72) U/L Alkaline Phosphatase 174 H (38-126) U/L Total Protein 6.1 L (6.3-8.2) g/dL Albumin 3.2 L (3.5-5.0) g/dL Amylase 143 H (30-110) U/L Lipase 2385 H (23-300) U/L Disposition Clinical Impression: Nausea & vomiting, Acute on chronic pancreatitis, Transaminitis, Pancreatitis Disposition: ADMITTED IP TO THIS HOSP Condition: Fair Is patient prescribed a controlled substance at d/c from ED?: No Referrals: None,Stated [Primary Care Provider] - 1-2 days
[2017-12-18 22:31] LABS: Basophils % (A) 0 %; Eosinophils # (A) 0.3 k/uL (0-0.7); Eosinophils % (A) 3 %; HCT 34.9 % (39.0-53.0); HGB 11.2 gm/dL (13.0-17.5); Lymphocytes # (A) 1.4 k/uL (1.0-4.8); Lymphocytes % (A) 18 %; MCH 29.3 pg (25.0-35.0); MCV 91.6 fL (80.0-100.0); Mean Platelet Volume 7.6; Monocytes # (A) 0.5 k/uL (0-1.0); Monocytes % (A) 6 %; Neutrophils # (A) 5.8 k/uL (1.3-7.7); Neutrophils % (A) 72 %; Platelet Count 303 k/uL (150-450); RBC 3.81 m/uL (4.30-5.90); RDW 15.6 % (11.5-15.5); WBC 8.1 k/uL (3.8-10.6)
[2017-12-18 22:42] LABS: Albumin 3.2 g/dL (3.5-5.0); Anion Gap 5 mmol/L; Calcium 8.9 mg/dL (8.4-10.2); Carbon Dioxide 26 mmol/L (22-30); Chloride 105 mmol/L (98-107); Glucose 90 mg/dL (74-99); Sodium 136 mmol/L (137-145); Total Bilirubin 0.4 mg/dL (0.2-1.3); Total Protein 6.1 g/dL (6.3-8.2)
[2017-12-18 23:07] LABS: ALT 36 U/L (21-72); AST 25 U/L (17-59); Alkaline Phosphatase 174 U/L (38-126); Amylase 143 U/L (30-110); Blood Urea Nitrogen 18 mg/dL (9-20)
[2017-12-18 23:08] LABS: Lipase 2385 U/L (23-300)
[2017-12-18] MEDS ORDERED: diphenhydrAMINE 50 MG/ML 1 ML VIAL IVP STA (23:21)
[2017-12-18] MEDS ORDERED: LORazepam 2 MG/ML INJ IV STA (23:21)
[2017-12-19] MEDS: MORPHINE SULFATE 4 MG/ML SYRINGE IVP PRN ×5 (03:42→20:11)
[2017-12-19] MEDS: LORazepam 2 MG/ML INJ IV PRN ×3 (03:43→20:11)
[2017-12-19 04:37] VITALS: BMI 17.9
[2017-12-19] MEDS: ONDANSETRON 4 MG/2 ML VIAL IVP PRN ×3 (06:26→17:29)
--- NOTE | 2017-12-19 07:03 | HP ---
HISTORY AND PHYSICAL CHIEF COMPLAINT: This 47-year-old white male presents to ER for severe abdominal pain with nausea and vomiting, history of chronic pancreatitis, alcohol induced pancreatitis. He has had multiple admissions for the same thing. He is not sure what is causing it. He denies alcohol at this time. Denies taking any illicit drugs. HOME MEDICINES: 1. Trazodone 50 at bedtime. 2. Neurontin 400 t.i.d. 3. Tylenol No. 3 one q.6 hours p.r.n. 4. Mag oxide 200 mg daily. 5. Flomax 0.4 mg daily. 6. Creon 2 capsules t.i.d. with meals. 7. Valium 2 mg t.i.d. p.r.n. 8. Wellbutrin XR 300 mg daily. ALLERGIES: No known drug allergies. REVIEW OF SYSTEMS: Fourteen-point review of systems negative except for mentioned in HPI. PAST MEDICAL HISTORY: Past medical history is GERD, GI bleed, dyslipidemia, liver disease, pneumonia, prostate disorder, alcohol abuse, recurrent pancreatitis, alcohol hepatitis, neuropathy bilateral feet since back surgery, chronic urinary retention due to back problems, self- catheterizations, left hydroureteronephrosis, chronic lumbar disc disease, stimulator in the back, chronic loose stools, history of back surgery, cholecystectomy, orthopedic surgery, colonoscopy, bronchoscopy, titanium rods and cages in his back, renal stones, spinal cord stimulator, bilateral knee arthroscopies. Current everyday smoker. No alcohol. No illicit drugs. FAMILY HISTORY: Father diabetes mellitus. Mother dementia, dyslipidemia, hypertension. PHYSICAL EXAM: Temperature 98.5, pulse is 70s to 80s, respiratory 16 to 18, blood pressure 120 to 170s over 80s to 90s. He is alert in no acute distress. HEENT: No thyromegaly. Pupils equal, round, reactive to light and accommodation. CARDIOVASCULAR: S1, S2. LUNGS: Clear. GI is soft, normal bowel sounds. Distended abdomen, tender, diffuse with mild rebound, rigid abdomen a little bit. EXTREMITIES: Normal inspection. No pedal edema or swelling. Dorsalis pedis, posterior tibial and radial pulses normal. NEUROLOGIC: Alert and orient x3. PSYCH: Fair mood and affect. SKIN: Warm, dry, intact. Hemoglobin is 11.2. EKG sinus rhythm. Sodium 136, potassium 5.0, BUN 18, creatinine 0.6. Amylase 143, lipase 2385. ASSESSMENT: 1. Acute on chronic pancreatitis. 2. Acute abdominal pain secondary to pancreatitis. 3. Acute nausea and vomiting secondary to pancreatitis. 4. Elevated liver enzymes secondary to pancreatitis. PLAN: GI consult. Clear liquid diet. Home medicines will be reviewed. Continue current treatment. MMODL / IJN: [id number] /
[2017-12-19] MEDS: LIPASE 5,000/PROTEASE 17,000/AMYLASE 27,0000 PO SCH ×2 (08:59→12:18)
[2017-12-19] MEDS ORDERED: NON-FORMULARY DRUG (Omeprazole 40 MG) PO SCH (09:00)
[2017-12-19] MEDS: GABAPENTIN 400 MG CAP PO SCH ×3 (09:04→20:12)
[2017-12-19] MEDS: ENOXAPARIN 40 MG/0.4 ML SYRINGE SQ SCH (09:05)
[2017-12-19] MEDS: buPROPion XL 300 MG TAB.ER.24H PO SCH (09:05)
[2017-12-19] MEDS: PANTOPRAZOLE 40 MG/10 ML VIAL IVP SCH (09:05)
[2017-12-19] MEDS: TAMSULOSIN 0.4 MG CAP.ER.24H PO SCH (09:05)
[2017-12-19] MEDS: TRIAMCINOLONE 0.1% CREAM 80 GM TUBE TOPICAL SCH ×2 (09:11→20:13)
[2017-12-19 09:29] LABS: Amylase 129 U/L (30-110); Lipase 1344 U/L (23-300)
--- NOTE | 2017-12-19 11:26 | P.CONS ---
History of Present Illness - Reason for Consult Consult date: 12/19/17 Chronic relapsing pancreatitis Requesting physician: Brien Alba - History of Present Illness 47-year-old male history of alcohol abuse multiple hospital admissions over the last few months secondary to chronic relapsing alcohol pancreatitis. Admitted with another episode of pancreatitis, abdominal pain nausea vomiting. Denies consumption of alcohol. Lipase 2385 presently 1344. LFTs within normal limits. Amylase 129-143. Afebrile. Review of Systems Constitutional: Denies fever, chills, sweats, weight gain, or loss. HEENT: Negative for migraines, blurred vision or loss, earaches, drainage, tinnitus, oral mucosal lesions, dysphagia, or odynophagia. Cardiac: Negative for chest pain, arrhythmias, or palpitation. Respiratory: Negative for shortness of breath, hemoptysis, cough, or sputum production. Gastrointestinal: See HPI for pertinent findings. Genitourinary: Negative for hematuria, urgency, frequency, polyuria, dysuria, or penile discharge. Musculoskeletal: Negative for muscle aches, swelling, arthritis, and arthralgias. Neurologic: Negative for stroke or TIA. Endocrine: Negative for thyroid problems. Skin: Negative for rash or itching. Psychiatric: Negative history for depression and anxiety Past Medical History Past Medical History: GERD/Reflux, GI Bleed, Hyperlipidemia, Liver Disease, Pneumonia, Prostate Disorder Additional Past Medical History / Comment(s): ETOH ABUSE RECURRANT PANCREATITIS , ALCOHOLIC HEPATITIS, NEUROPATHY BILATERAL FEET SINCE BACK SURGERY, hx of CHRONIC URINARY RETENTION DUE TO BACK PROBLEMS-SELF CATHS, CHRONIC L HYDROURETERONEPHROSIS D/T REFLUX, CHRONIC LOW BACK PAIN (HAS STIMULATOR THAT PT STATES DOES NOT WORK), HEMATEMESIS, CHRONIC LOOSE STOOLS. History of Any Multi-Drug Resistant Organisms: None Reported Past Surgical History: Back Surgery, Cholecystectomy, Orthopedic Surgery Additional Past Surgical History / Comment(s): EGDS, colonoscopy, bronchoscopy, BACK surgeries with TITANIUM PLATES MILTON and CAGES, KIDNEY STONES removed per pt, SPINAL CORD STIMULATOR, ISMAEL KNEE ARTHROSCOPIES, PINKY FINGER RT HAND REATTATCHED Past Anesthesia/Blood Transfusion Reactions: No Reported Reaction Past Psychological History: Anxiety, Depression Additional Psychological History / Comment(s): PT LIVES AT HOME WITH in a 2 story home that has 3 porch steps/7 steps to 2nd floor.. IS DISABLED WORKED [employer] IN PAST. NO SERVICE.. occasionally uses either cane, walker or w/c also has shower chair and raised toilet seat. He does not drive, his can drive. Smoking Status: Current every day smoker Past Alcohol Use History: None Reported Additional Past Alcohol Use History / Comment(s): Smokes 2 packs per day; ETOH ABUSE-patient denies current etoh use. Past Drug Use History: None Reported Additional Drug Use History / Comment(s): Patient reports that he has not used Marijuana in over 13 months. - Past Family History Father Family Medical History: Diabetes Mellitus Additional Family Medical History / Comment(s): Mother Family Medical History: Dementia, Hyperlipidemia, Hypertension Additional Family Medical History / Comment(s): Mother is living. Medications and Allergies Home Medications Medication Instructions Recorded Confirmed Type traZODone HCL 50 mg PO HS 04/04/17 12/18/17 History Omeprazole [PriLOSEC] 40 mg PO BID #60 capsule. 05/16/17 12/18/17 Rx Gabapentin [Neurontin] 400 mg PO TID 07/18/17 12/18/17 History Acetaminophen-Codeine 300-30mg 1 tab PO Q6H PRN 09/10/17 12/18/17 History [Tylenol w/codeine #3] Magnesium Oxide [Mag-Ox] 200 mg PO DAILY 09/18/17 12/18/17 History Tamsulosin HCl [Flomax] 0.4 mg PO DAILY 09/18/17 12/18/17 History Lipase/Protease/Amylase [Rebel Belcher 2 cap PO TID-W/MEALS 10/20/17 12/18/17 History 24,000 Units Capsule] Betamethasone Valerate [Luxiq 1%] 1 applic TOPICAL BID 12/11/17 12/18/17 History Diazepam [Valium] 2 mg PO TID PRN 12/11/17 12/18/17 History Ondansetron Odt [Zofran Odt] 4 mg PO Q8HR PRN #10 tab 12/11/17 12/18/17 Rx buPROPion HCL [Wellbutrin XL] 300 mg PO DAILY 12/12/17 12/18/17 History Allergies Allergy/AdvReac Type Severity Reaction Status Date / Time No Known Allergies Allergy Verified 12/18/17 22:02 Physical Exam Vitals: Vital Signs Temp Pulse Pulse Resp BP BP Pulse Ox 12/19/17 06:20 97.4 F L 74 16 142/82 99 12/19/17 00:30 97.0 F L 75 16 144/94 100 12/19/17 00:20 97.7 F 74 15 154/99 100 12/18/17 23:31 76 15 172/100 100 12/18/17 22:40 18 12/18/17 22:38 72 18 174/98 100 12/18/17 21:13 98.5 F 89 18 125/80 100 Intake and Output 12/18/17 12/19/17 12/19/17 22:59 06:59 14:59 Other: Voiding Method Toilet Toilet # Voids 1 Weight 53.977 kg 50.5 kg General appearance: The patient is alert, oriented, in no acute distress. HET: Head is normocephalic and atraumatic. Pupils are equal and reactive. Oropharynx is clear without lesions. Neck: Supple without lymphadenopathy. Trachea midline. Heart: S1 S2. Regular rate and rhythm. Lungs: No crackles or wheezes are heard. Abdomen: Soft, the left upper quadrant tenderness, nondistended with bowel sounds. No peritoneal signs. No palpable organomegaly or masses. Extremities: Normal skin color and turgor. No cyanosis, rash, ulceration, clubbing, or edema. Radial and pedal pulses are 2/4 bilaterally. Neurological: No focal deficits. Strength and sensation are grossly intact. Results CBC & Chem 7: 12/18/17 22:22 12/18/17 22:22 Labs: Abnormal Lab Results - Last 24 Hours (Table) 12/18/17 12/18/17 12/19/17 Range/Units 22:22 22:22 08:54 RBC 3.81 L (4.30-5.90) m/uL Hgb 11.2 L (13.0-17.5) gm/dL Hct 34.9 L (39.0-53.0) % RDW 15.6 H (11.5-15.5) % Sodium 136 L (137-145) mmol/L Creatinine 0.60 L (0.66-1.25) mg/dL Alkaline Phosphatase 174 H (38-126) U/L Total Protein 6.1 L (6.3-8.2) g/dL Albumin 3.2 L (3.5-5.0) g/dL Amylase 143 H 129 H (30-110) U/L Lipase 2385 H 1344 H (23-300) U/L Assessment and Plan (1) Acute on chronic pancreatitis Current Visit: Yes Status: Acute Code(s): K85.90 - ACUTE PANCREATITIS WITHOUT NECROSIS OR INFECTION, UNSP; K86.1 - OTHER CHRONIC PANCREATITIS SNOMED Code(s): 885537174 (2) ETOH abuse Current Visit: No Status: Acute Code(s): F10.10 - ALCOHOL ABUSE, UNCOMPLICATED SNOMED Code(s): 53065084 Plan: 1. Patient was advised on previous admission a week ago to pursue outpatient EUS. GI office has arrange this referral. Aisha Nathan called earlier this week patient states he needs to call them back. Continue with IV hydration GI prophylaxis supportive measures. Nothing by mouth except medications ice chips for today. Repeat pancreatic enzymes in a.m. Thank you for this kind referral and the opportunity to participate in the care of your patient. This consultation was discussed with Dr. Kellogg. The impression and plan of care have been directed as dictated.
[2017-12-19] MEDS: MAGNESIUM OXIDE 400 MG TAB PO SCH (12:17)
[2017-12-19] MEDS: SODIUM CHLORIDE 0.9% 1,000 ML IV SCH ×2 (12:20→17:29)
[2017-12-19] MEDS: Acetaminophen-Codeine 300-30mg TAB PO PRN ×2 (13:10→20:12)
[2017-12-19] MEDS: CREON PO SCH ×2 (13:16→16:36)
[2017-12-19] MEDS: NICOTINE 14MG/24HR PATCH TRANSDERM SCH (20:54)
[2017-12-19] MEDS: IPRATROPIUM-ALBUTEROL 3 ML NEB INHALATION SCH (22:48)
[2017-12-20] MEDS: LORazepam 2 MG/ML INJ IV PRN ×3 (00:05→08:15)
[2017-12-20] MEDS: MORPHINE SULFATE 4 MG/ML SYRINGE IVP PRN ×3 (00:05→08:14)
[2017-12-20] MEDS: Acetaminophen-Codeine 300-30mg TAB PO PRN (04:02)
[2017-12-20] MEDS: SODIUM CHLORIDE 0.9% 1,000 ML IV SCH (06:12)
[2017-12-20 07:35] VITALS: BP 134/85; RESP 17; TEMP 97.3
--- NOTE | 2017-12-20 07:39 | P.PN ---
Subjective Progress Note Date: 12/20/17 Principal diagnosis: pancreatitis Feels better but abdominal pain still present. Afebrile. Requesting diet. Objective - Vital Signs Vital signs: Vital Signs Temp 97.3 F L 12/20/17 07:00 Pulse 86 12/20/17 07:00 Resp 17 12/20/17 07:00 BP 134/85 12/20/17 07:00 Pulse Ox 100 12/20/17 07:00 Intake & Output 12/19/17 12/20/17 12/20/17 18:59 06:59 18:59 Output Total 525 700 Balance -525 -700 Weight 50.5 kg Output: Urine 350 700 Emesis 175 Other: Voiding Method Urinal Toilet Urinal # Voids 1 1 - Constitutional General appearance: Present: average body habitus - EENT Eyes: Present: normal appearance - Respiratory Respiratory: bilateral: CTA - Cardiovascular Rhythm: regular - Gastrointestinal Gastrointestinal Comment(s): LUQ mild tenderness General gastrointestinal: Present: soft - Psychiatric Psychiatric: Present: A&O x's 3 - Labs CBC & Chem 7: 12/18/17 22:22 12/18/17 22:22 Labs: Abnormal Lab Results - Last 24 Hours (Table) 12/19/17 Range/Units 08:54 Amylase 129 H (30-110) U/L Lipase 1344 H (23-300) U/L Assessment and Plan (1) Acute on chronic pancreatitis Current Visit: Yes Status: Acute Code(s): K85.90 - ACUTE PANCREATITIS WITHOUT NECROSIS OR INFECTION, UNSP; K86.1 - OTHER CHRONIC PANCREATITIS SNOMED Code(s): 105860507 (2) ETOH abuse Current Visit: No Status: Acute Code(s): F10.10 - ALCOHOL ABUSE, UNCOMPLICATED SNOMED Code(s): 82113497 Plan: 1. Continue with IV hydration GI prophylaxis supportive measures. Low fat diet. Pancreatic enzymes requested. Assessment and plan of care discussed with Dr. Kellogg
[2017-12-20] MEDS: IPRATROPIUM-ALBUTEROL 3 ML NEB INHALATION SCH (07:40)
[2017-12-20 07:58] VITALS: PULSE 77
[2017-12-20 08:11] LABS: Basophils % (A) 0 %; Eosinophils # (A) 0.1 k/uL (0-0.7); Eosinophils % (A) 1 %; HCT 32.6 % (39.0-53.0); HGB 10.3 gm/dL (13.0-17.5); Lymphocytes # (A) 0.6 k/uL (1.0-4.8); Lymphocytes % (A) 11 %; MCH 29.4 pg (25.0-35.0); MCHC 31.6 g/dL (31.0-37.0); Mean Platelet Volume 7.5; Monocytes # (A) 0.3 k/uL (0-1.0); Monocytes % (A) 6 %; Neutrophils # (A) 4.2 k/uL (1.3-7.7); Neutrophils % (A) 81 %; Platelet Count 200 k/uL (150-450); RDW 15.2 % (11.5-15.5); WBC 5.1 k/uL (3.8-10.6)
[2017-12-20] MEDS: CREON PO SCH (08:15)
[2017-12-20] MEDS: TAMSULOSIN 0.4 MG CAP.ER.24H PO SCH (08:15)
[2017-12-20] MEDS: GABAPENTIN 400 MG CAP PO SCH (08:15)
[2017-12-20] MEDS: NICOTINE 14MG/24HR PATCH TRANSDERM SCH (08:15)
[2017-12-20] MEDS: ENOXAPARIN 40 MG/0.4 ML SYRINGE SQ SCH (08:15)
[2017-12-20] MEDS: buPROPion XL 300 MG TAB.ER.24H PO SCH (08:15)
[2017-12-20] MEDS: MAGNESIUM OXIDE 400 MG TAB PO SCH (08:15)
[2017-12-20] MEDS: TRIAMCINOLONE 0.1% CREAM 80 GM TUBE TOPICAL SCH (08:16)
[2017-12-20] MEDS: PANTOPRAZOLE 40 MG/10 ML VIAL IVP SCH (08:16)
[2017-12-20 08:23] LABS: ALT 30 U/L (21-72); AST 14 U/L (17-59); Albumin 2.6 g/dL (3.5-5.0); Alkaline Phosphatase 148 U/L (38-126); Amylase 194 U/L (30-110); Anion Gap 6 mmol/L; Blood Urea Nitrogen 9 mg/dL (9-20); Carbon Dioxide 23 mmol/L (22-30); Chloride 106 mmol/L (98-107); Glucose 75 mg/dL (74-99); Potassium 3.9 mmol/L (3.5-5.1); Sodium 135 mmol/L (137-145); Total Bilirubin 0.4 mg/dL (0.2-1.3); Total Protein 4.9 g/dL (6.3-8.2)
[2017-12-20 09:02] LABS: Lipase 1996 U/L (23-300)
--- NOTE | 2017-12-20 09:29 | XR ---
EXAMINATION TYPE: XR chest 2V DATE OF EXAM: 12/20/2017 COMPARISON: 12/12/2017 TECHNIQUE: PA and lateral views submitted. HISTORY: Shortness of breath FINDINGS: Patchy right lower lobe infiltrate noted. Left lung clear. There is a stimulator device overlying the thoracic spine. No pneumothorax or overt failure. IMPRESSION: 1. Patchy right lower lobe infiltrate.
== END 2017-12-20 11:33 | disposition left against medical advice (07) | DRG 440 ==
LOC: EC 21:01 → 4MS4W 23:51
PROVIDERS: ADMIT Family Medicine; ATTEND Family Medicine
DX: K86.0 Alcohol-induced chronic pancreatitis (principal); E78.5 Hyperlipidemia, unspecified; K85.20 Alcohol induced acute pancreatitis without necrosis or infection; F10.10 Alcohol abuse, uncomplicated; K21.9 Gastro-esophageal reflux disease without esophagitis; G62.9 Polyneuropathy, unspecified; R19.7 Diarrhea, unspecified; G89.29 Other chronic pain; M54.5 Low back pain; F17.210 Nicotine dependence, cigarettes, uncomplicated; Z79.899 Other long term (current) drug therapy; Z90.49 Acquired absence of other specified parts of digestive tract; Z82.49 Family history of ischemic heart disease and other diseases of the circulatory system; Z83.3 Family history of diabetes mellitus; Z87.442 Personal history of urinary calculi; Z98.1 Arthrodesis status
CPT/HCPCS: 36415; 71046; 80053; 82150; 83690; 85025; 93005; 94640; 94760; 96361; 96374; 96375; 99285

== ENCOUNTER 2017-12-20 21:44 | Emergency (ER) | payer MEDICARE, OTHER ==
[2017-12-20 22:35] VITALS: RESP 16; TEMP 99.1
[2017-12-20] MEDS ORDERED: SODIUM CHLORIDE 0.9% 500 ML IV STA (23:49)
[2017-12-20] MEDS ORDERED: ONDANSETRON 4 MG/2 ML VIAL IVP STA (23:49)
--- NOTE | 2017-12-21 00:05 | ED ---
Chest Pain HPI - General Chief Complaint: Chest Pain Stated Complaint: Vomiting/CP Time Seen by Provider: 12/20/17 23:08 Source: patient Mode of arrival: wheelchair Limitations: no limitations - History of Present Illness Initial Comments: 47-year-old male patient presented to the emergency department today for evaluation of chest pain, shortness of breath, and upper abdominal pain. States the pain radiates to his back. Patient does have a past medical history significant for chronic abdominal pain and chronic pancreatitis. Patient states he feels like he may have pancreatitis again. Patient states that really doesn't hurt to breathe, but that he feels short of breath. He denies any fevers or chills. States he has been vomiting all day. Denies any constipation or diarrhea. Last bowel movement was today. Denies any hematemesis, hematochezia, or melena. Denies any difficulty with urination. Patient denies any recent rash, numbness, tingling, dizziness, weakness, hematuria, dysuria, urinary urgency, urinary frequency, headache, visual changes , or any other complaints. - Related Data Home Medications Medication Instructions Recorded Confirmed traZODone HCL 50 mg PO HS 04/04/17 12/20/17 Gabapentin [Neurontin] 400 mg PO TID 07/18/17 12/20/17 Acetaminophen-Codeine 300-30mg 1 tab PO Q6H PRN 09/10/17 12/20/17 [Tylenol w/codeine #3] Magnesium Oxide [Mag-Ox] 200 mg PO DAILY 09/18/17 12/20/17 Tamsulosin HCl [Flomax] 0.4 mg PO DAILY 09/18/17 12/20/17 Lipase/Protease/Amylase [Rebel Belcher 2 cap PO TID-W/MEALS 10/20/17 12/20/17 24,000 Units Capsule] Betamethasone Valerate [Luxiq 1%] 1 applic TOPICAL BID 12/11/17 12/20/17 Diazepam [Valium] 2 mg PO TID PRN 12/11/17 12/20/17 buPROPion HCL [Wellbutrin XL] 300 mg PO DAILY 12/12/17 12/20/17 Previous Rx's Medication Instructions Recorded Omeprazole [PriLOSEC] 40 mg PO BID #60 capsule. 05/16/17 Ondansetron Odt [Zofran Odt] 4 mg PO Q8HR PRN #10 tab 12/11/17 Allergies Allergy/AdvReac Type Severity Reaction Status Date / Time No Known Allergies Allergy Verified 12/20/17 22:35 Review of Systems ROS Statement: Those systems with pertinent positive or pertinent negative responses have been documented in the HPI. ROS Other: All systems not noted in ROS Statement are negative. EKG Findings - EKG Comments: EKG Findings:: EKG obtained at 00 36 shows normal sinus rhythm with a ventricular rate of 86, IA interval 150, QRS duration 78, QT 400, QTC 478. No evidence of ST elevation or depression. Past Medical History Past Medical History: GERD/Reflux, GI Bleed, Hyperlipidemia, Liver Disease, Pneumonia, Prostate Disorder Additional Past Medical History / Comment(s): ETOH ABUSE RECURRANT PANCREATITIS , ALCOHOLIC HEPATITIS, NEUROPATHY BILATERAL FEET SINCE BACK SURGERY, hx of CHRONIC URINARY RETENTION DUE TO BACK PROBLEMS-SELF CATHS, CHRONIC L HYDROURETERONEPHROSIS D/T REFLUX, CHRONIC LOW BACK PAIN (HAS STIMULATOR THAT PT STATES DOES NOT WORK), HEMATEMESIS, CHRONIC LOOSE STOOLS. History of Any Multi-Drug Resistant Organisms: None Reported Past Surgical History: Back Surgery, Cholecystectomy, Orthopedic Surgery Additional Past Surgical History / Comment(s): EGDS, colonoscopy, bronchoscopy, BACK surgeries with TITANIUM PLATES MILTON and CAGES, KIDNEY STONES removed per pt, SPINAL CORD STIMULATOR, ISMAEL KNEE ARTHROSCOPIES, PINKY FINGER RT HAND REATTATCHED Past Anesthesia/Blood Transfusion Reactions: No Reported Reaction Past Psychological History: Anxiety, Depression Smoking Status: Current every day smoker Past Alcohol Use History: None Reported Past Drug Use History: None Reported - Past Family History Father Family Medical History: Diabetes Mellitus Additional Family Medical History / Comment(s): Mother Family Medical History: Dementia, Hyperlipidemia, Hypertension Additional Family Medical History / Comment(s): Mother is living. General Exam Limitations: no limitations General appearance: alert, in no apparent distress, other (This is a thin appearing adult male patient in no acute distress. Vital signs upon presentation are temperature 99.1F, pulse 89, respirations 16, blood pressure 131/83, pulse ox 100% on room air.) Eye exam: Present: normal appearance, PERRL, EOMI. Absent: scleral icterus, conjunctival injection, periorbital swelling ENT exam: Present: normal exam, normal oropharynx, mucous membranes moist Respiratory exam: Present: normal lung sounds bilaterally. Absent: respiratory distress, wheezes, rales, rhonchi, stridor Cardiovascular Exam: Present: normal rhythm, tachycardia, normal heart sounds. Absent: systolic murmur, diastolic murmur, rubs, gallop, clicks GI/Abdominal exam: Present: soft, tenderness (Midepigastric tenderness, guarding ), guarding, normal bowel sounds. Absent: distended, rebound, rigid Neurological exam: Present: alert, oriented X3, CN II-XII intact Psychiatric exam: Present: normal affect, normal mood Skin exam: Present: warm, dry, intact, normal color. Absent: rash Course Vital Signs 12/20/17 12/21/17 22:33 02:20 Temperature 99.1 F Pulse Rate 89 77 Respiratory 16 16 Rate Blood Pressure 131/83 154/85 O2 Sat by Pulse 100 99 Oximetry Chest Pain MDM - MDM RADIOLOGY:Two-view x-ray of the chest is obtained. Heart mediastinum are normal. Lungs are clear. Diaphragm is normal. There is neuro stimulator in the lower thoracic spine. There are chest leads. No active cardiopulmonary disease was noted. There is clearing of some minimal pneumonia in the right lower lobe compared to yesterday. Impression is by Dr. Garcia. 47-year-old male patient presented to the emergency department today for complaints of upper abdominal pain that radiated into his chest. Physical examination did reveal midepigastric tenderness. Labs reviewed and did reveal an elevated lipase at 1000. Patient does have chronic pancreatitis this number is not unusual for him. I did offer admission however patient wanted to try to go home and rest. We did discuss clear liquid diet. He is instructed to follow -up with his primary care physician for recheck as soon as possible. He does have pain medication at home. Return parameters discussed in detail. He verbalizes understanding and agrees with this plan. Disposition Clinical Impression: Chronic pancreatitis, Abdominal pain Disposition: HOME SELF-CARE Condition: Good Instructions: Pancreatitis (ED), Abdominal Pain (ED) Additional Instructions: Start with clear liquid diet and advance as tolerated. Increase clear fluids. Follow-up with your primary care physician for recheck as soon as possible. Return here immediately for any new, worsening, or concerning symptoms. Is patient prescribed a controlled substance at d/c from ED?: No Referrals: None,Stated [Primary Care Provider] - 1-2 days Time of Disposition: 02:06
[2017-12-21 00:33] LABS: Basophils % (A) 0 %; Eosinophils # (A) 0.1 k/uL (0-0.7); Eosinophils % (A) 1 %; HCT 33.9 % (39.0-53.0); Lymphocytes # (A) 0.8 k/uL (1.0-4.8); Lymphocytes % (A) 10 %; MCH 29.5 pg (25.0-35.0); MCHC 32.3 g/dL (31.0-37.0); MCV 91.1 fL (80.0-100.0); Mean Platelet Volume 8.3; Monocytes # (A) 0.4 k/uL (0-1.0); Monocytes % (A) 5 %; Neutrophils # (A) 7.1 k/uL (1.3-7.7); Neutrophils % (A) 84 %; Platelet Count 199 k/uL (150-450); RBC 3.72 m/uL (4.30-5.90); RDW 15.5 % (11.5-15.5); WBC 8.4 k/uL (3.8-10.6)
[2017-12-21 00:41] LABS: ALT 29 U/L (21-72); AST 16 U/L (17-59); Albumin 2.7 g/dL (3.5-5.0); Alkaline Phosphatase 154 U/L (38-126); Amylase 176 U/L (30-110); Anion Gap 5 mmol/L; Blood Urea Nitrogen 8 mg/dL (9-20); Calcium 8.4 mg/dL (8.4-10.2); Carbon Dioxide 27 mmol/L (22-30); Chloride 102 mmol/L (98-107); Glucose 93 mg/dL (74-99); INR 1.1 (<1.2); Lipase 1029 U/L (23-300); Magnesium 1.8 mg/dL (1.6-2.3); Partial Thromboplastin Time 26.4 sec (22.0-30.0); Potassium 4.3 mmol/L (3.5-5.1); Prothrombin Time 10.8 sec (9.0-12.0); Sodium 134 mmol/L (137-145); Total Bilirubin 0.3 mg/dL (0.2-1.3); Total Protein 5.3 g/dL (6.3-8.2)
[2017-12-21 00:52] LABS: Creatine Kinase 89 U/L (55-170)
[2017-12-21 01:05] LABS: Creatine Kinase MB 0.7 ng/mL (0.0-2.4); Troponin I <0.012 ng/mL (0.000-0.034)
--- NOTE | 2017-12-21 01:19 | XR ---
EXAMINATION TYPE: XR chest 2V DATE OF EXAM: 12/21/2017 COMPARISON: Yesterday HISTORY: Chest pain TECHNIQUE: Frontal and lateral views of the chest are obtained. FINDINGS: Heart and mediastinum are normal. Lungs are clear. Diaphragm is normal. There is neurostim ulator in the lower thoracic spine. There are chest leads. IMPRESSION: No active cardiopulmonary disease. There is clearing of some minimal pneumonia in the ri ght lower lobe compared to yesterday.
[2017-12-21] MEDS ORDERED: MORPHINE SULFATE 4 MG/ML SYRINGE IVP STA (02:05)
[2017-12-21 02:20] VITALS: BP 154/85; PULSE 77
== END 2017-12-21 02:22 | disposition home or self-care (01) ==
LOC: EC 21:44
DX: K86.1 Other chronic pancreatitis (principal); E78.5 Hyperlipidemia, unspecified; N42.9 Disorder of prostate, unspecified; G62.9 Polyneuropathy, unspecified; F41.9 Anxiety disorder, unspecified; F32.9 Major depressive disorder, single episode, unspecified; F17.200 Nicotine dependence, unspecified, uncomplicated; Z87.442 Personal history of urinary calculi; Z87.01 Personal history of pneumonia (recurrent); Z90.49 Acquired absence of other specified parts of digestive tract; Z98.890 Other specified postprocedural states; Z79.52 Long term (current) use of systemic steroids; Z79.899 Other long term (current) drug therapy
CPT/HCPCS: 99285; 96374; 96375; 36415; 93005; 80053; 82150; 82550; 82553; 83690; 83735; 84484; 85025; 85610; 85730; 71046; J2270; J2405

== ENCOUNTER 2017-12-21 15:30 | Emergency (ER) | payer MEDICARE, OTHER ==
[2017-12-21 15:40] VITALS: RESP 18; TEMP 98.6
[2017-12-21] MEDS ORDERED: SODIUM CHLORIDE 0.9% 2,000 ML IV STA (15:42)
[2017-12-21] MEDS ORDERED: ONDANSETRON 4 MG/2 ML VIAL IVP STA (15:42)
[2017-12-21 16:29] LABS: Basophils % (A) 0 %; Eosinophils # (A) 0.1 k/uL (0-0.7); Eosinophils % (A) 2 %; HCT 41.9 % (39.0-53.0); Lymphocytes # (A) 0.6 k/uL (1.0-4.8); Lymphocytes % (A) 11 %; MCV 93.6 fL (80.0-100.0); Mean Platelet Volume 7.7; Monocytes # (A) 0.2 k/uL (0-1.0); Monocytes % (A) 4 %; Neutrophils # (A) 4.3 k/uL (1.3-7.7); Neutrophils % (A) 83 %; Platelet Count 219 k/uL (150-450); RBC 4.47 m/uL (4.30-5.90); RDW 15.3 % (11.5-15.5); WBC 5.1 k/uL (3.8-10.6)
[2017-12-21 16:41] LABS: ALT 26 U/L (21-72); AST 17 U/L (17-59); Albumin 3.1 g/dL (3.5-5.0); Alcohol <10 mg/dL; Alkaline Phosphatase 164 U/L (38-126); Amylase 115 U/L (30-110); Anion Gap 10 mmol/L; Blood Urea Nitrogen 9 mg/dL (9-20); Calcium 8.3 mg/dL (8.4-10.2); Carbon Dioxide 23 mmol/L (22-30); Chloride 101 mmol/L (98-107); Glucose 97 mg/dL (74-99); Lipase 677 U/L (23-300); Potassium 4.2 mmol/L (3.5-5.1); Sodium 134 mmol/L (137-145); Total Bilirubin 0.3 mg/dL (0.2-1.3); Total Protein 5.8 g/dL (6.3-8.2)
[2017-12-21] MEDS ORDERED: KETOROLAC 30 MG/ML 1 ML VIAL IVP STA (17:27)
--- NOTE | 2017-12-21 17:28 | ED ---
Abdominal Pain HPI - General Chief Complaint: Abdominal Pain Stated Complaint: Chest Pain Time Seen by Provider: 12/21/17 15:42 Source: patient, RN notes reviewed Mode of arrival: wheelchair Limitations: no limitations - History of Present Illness Initial Comments: 47-year-old male presents emergency Department chief complaint of abdominal pain. Patient is chronic pancreatitis. This is related to alcohol use. Patient states that his pain has been worsening over the last 24 hours she was seen here last night states that the pain seemed to worsen. He is had some nausea vomiting. Denies any fevers or chills. - Related Data Home Medications Medication Instructions Recorded Confirmed traZODone HCL 50 mg PO HS 04/04/17 12/20/17 Gabapentin [Neurontin] 400 mg PO TID 07/18/17 12/20/17 Acetaminophen-Codeine 300-30mg 1 tab PO Q6H PRN 09/10/17 12/20/17 [Tylenol w/codeine #3] Magnesium Oxide [Mag-Ox] 200 mg PO DAILY 09/18/17 12/20/17 Tamsulosin HCl [Flomax] 0.4 mg PO DAILY 09/18/17 12/20/17 Lipase/Protease/Amylase [Rebel Belcher 2 cap PO TID-W/MEALS 10/20/17 12/20/17 24,000 Units Capsule] Betamethasone Valerate [Luxiq 1%] 1 applic TOPICAL BID 12/11/17 12/20/17 Diazepam [Valium] 2 mg PO TID PRN 12/11/17 12/20/17 buPROPion HCL [Wellbutrin XL] 300 mg PO DAILY 12/12/17 12/20/17 Previous Rx's Medication Instructions Recorded Omeprazole [PriLOSEC] 40 mg PO BID #60 capsule. 05/16/17 Ondansetron Odt [Zofran Odt] 4 mg PO Q8HR PRN #10 tab 12/11/17 Allergies Allergy/AdvReac Type Severity Reaction Status Date / Time No Known Allergies Allergy Verified 12/21/17 15:40 Review of Systems ROS Statement: Those systems with pertinent positive or pertinent negative responses have been documented in the HPI. ROS Other: All systems not noted in ROS Statement are negative. Past Medical History Past Medical History: GERD/Reflux, GI Bleed, Hyperlipidemia, Liver Disease, Pneumonia, Prostate Disorder Additional Past Medical History / Comment(s): ETOH ABUSE RECURRANT PANCREATITIS , ALCOHOLIC HEPATITIS, NEUROPATHY BILATERAL FEET SINCE BACK SURGERY, hx of CHRONIC URINARY RETENTION DUE TO BACK PROBLEMS-SELF CATHS, CHRONIC L HYDROURETERONEPHROSIS D/T REFLUX, CHRONIC LOW BACK PAIN (HAS STIMULATOR THAT PT STATES DOES NOT WORK), HEMATEMESIS, CHRONIC LOOSE STOOLS. History of Any Multi-Drug Resistant Organisms: None Reported Past Surgical History: Back Surgery, Cholecystectomy, Orthopedic Surgery Additional Past Surgical History / Comment(s): EGDS, colonoscopy, bronchoscopy, BACK surgeries with TITANIUM PLATES MILTON and CAGES, KIDNEY STONES removed per pt, SPINAL CORD STIMULATOR, ISMAEL KNEE ARTHROSCOPIES, PINKY FINGER RT HAND REATTATCHED Past Anesthesia/Blood Transfusion Reactions: No Reported Reaction Past Psychological History: Anxiety, Depression Smoking Status: Current every day smoker Past Alcohol Use History: None Reported Past Drug Use History: None Reported - Past Family History Father Family Medical History: Diabetes Mellitus Additional Family Medical History / Comment(s): Mother Family Medical History: Dementia, Hyperlipidemia, Hypertension Additional Family Medical History / Comment(s): Mother is living. General Exam Limitations: no limitations General appearance: alert, in no apparent distress Head exam: Present: atraumatic, normocephalic, normal inspection Respiratory exam: Present: normal lung sounds bilaterally. Absent: respiratory distress, wheezes, rales, rhonchi, stridor Cardiovascular Exam: Present: regular rate, normal rhythm, normal heart sounds. Absent: systolic murmur, diastolic murmur, rubs, gallop, clicks GI/Abdominal exam: Present: soft, tenderness (Mild epigastric), normal bowel sounds. Absent: distended, guarding, rebound, rigid Back exam: Absent: CVA tenderness (R), CVA tenderness (L) Course Vital Signs 12/21/17 15:38 Temperature 98.6 F Pulse Rate 102 H Respiratory 18 Rate Blood Pressure 114/76 O2 Sat by Pulse 99 Oximetry Medical Decision Making - Medical Decision Making 47-year-old male presented for abdominal pain. He has known chronic pancreatitis. Patient's lipase is only 677 at this time which is improved from last night. Patient will continue on nothing by mouth diet and progress to liquid diet as tolerated. - Lab Data Result diagrams: 12/21/17 16:15 12/21/17 16:15 Lab Results 12/21/17 12/21/17 Range/Units 16:15 16:15 WBC 5.1 (3.8-10.6) k/uL RBC 4.47 (4.30-5.90) m/uL Hgb 13.0 (13.0-17.5) gm/dL Hct 41.9 (39.0-53.0) % MCV 93.6 (80.0-100.0) fL MCH 29.0 (25.0-35.0) pg MCHC 31.0 (31.0-37.0) g/dL RDW 15.3 (11.5-15.5) % Plt Count 219 (150-450) k/uL Neutrophils % 83 % Lymphocytes % 11 % Monocytes % 4 % Eosinophils % 2 % Basophils % 0 % Neutrophils # 4.3 (1.3-7.7) k/uL Lymphocytes # 0.6 L (1.0-4.8) k/uL Monocytes # 0.2 (0-1.0) k/uL Eosinophils # 0.1 (0-0.7) k/uL Basophils # 0.0 (0-0.2) k/uL Sodium 134 L (137-145) mmol/L Potassium 4.2 (3.5-5.1) mmol/L Chloride 101 (98-107) mmol/L Carbon Dioxide 23 (22-30) mmol/L Anion Gap 10 mmol/L BUN 9 (9-20) mg/dL Creatinine 0.54 L (0.66-1.25) mg/dL Est GFR (CKD-EPI)AfAm >90 (>60 ml/min/1.73 sqM) Est GFR (CKD-EPI)NonAf >90 (>60 ml/min/1.73 sqM) Glucose 97 (74-99) mg/dL Calcium 8.3 L (8.4-10.2) mg/dL Total Bilirubin 0.3 (0.2-1.3) mg/dL AST 17 (17-59) U/L ALT 26 (21-72) U/L Alkaline Phosphatase 164 H (38-126) U/L Total Protein 5.8 L (6.3-8.2) g/dL Albumin 3.1 L (3.5-5.0) g/dL Amylase 115 H (30-110) U/L Lipase 677 H (23-300) U/L Serum Alcohol <10 mg/dL Disposition Clinical Impression: Chronic pancreatitis Disposition: HOME SELF-CARE Condition: Stable Instructions: Pancreatitis (ED) Additional Instructions: Please return to the Emergency Department if symptoms worsen or any other concerns. Is patient prescribed a controlled substance at d/c from ED?: No Referrals: Brien Alba MD [STAFF PHYSICIAN] - 1-2 days Time of Disposition: 17:27
[2017-12-21 18:05] VITALS: BP 162/87; PULSE 83
== END 2017-12-21 19:20 | disposition home or self-care (01) ==
LOC: EC 15:30
DX: K86.1 Other chronic pancreatitis (principal); K21.9 Gastro-esophageal reflux disease without esophagitis; N42.9 Disorder of prostate, unspecified; G62.9 Polyneuropathy, unspecified; F41.9 Anxiety disorder, unspecified; F32.9 Major depressive disorder, single episode, unspecified; F17.200 Nicotine dependence, unspecified, uncomplicated; Z90.49 Acquired absence of other specified parts of digestive tract; Z79.52 Long term (current) use of systemic steroids; Z79.899 Other long term (current) drug therapy
CPT/HCPCS: 99284 ×2; 96374 ×2; 96375 ×2; 96361 ×4; 36415; 93005; 80053; 82150; 82550; 82553; 83690; 83735; 84484; 85025; 85610; 85730; 80320; 71046; J2270; J2405; J1885

== ENCOUNTER 2017-12-31 04:49 | Inpatient (IN) | payer MEDICARE, OTHER ==
[2017-12-31] MEDS ORDERED: SODIUM CHLORIDE 0.9% 2,000 ML IV STA (05:36)
[2017-12-31] MEDS ORDERED: FAMOTIDINE 20 MG/2 ML VIAL IV STA (05:49)
[2017-12-31] MEDS ORDERED: ONDANSETRON 4 MG/2 ML VIAL IVP STA (05:49)
--- NOTE | 2017-12-31 05:49 | ED ---
General Adult HPI - General Chief complaint: Abdominal Pain Stated complaint: Abdominal Pain Time Seen by Provider: 12/31/17 05:36 Source: patient Mode of arrival: wheelchair Limitations: no limitations - History of Present Illness Initial comments: Nestor is a 47-year-old male with past medical history significant for alcohol abuse and chronic pancreatitis who returns to our emergency department today for reevaluation of epigastric abdominal pain consistent with previous episodes of pancreatitis flare. Patient admits that he was drinking rum yesterday throughout the night he developed progressively worsening epigastric abdominal pain which is sharp in nature and radiating to his back. Pain is associated with nausea, a few episodes of nonbloody nonbilious emesis. The patient denies any fever, Chills, chest pain, shortness of breath or change in bowel or bladder habits. - Related Data Home Medications Medication Instructions Recorded Confirmed traZODone HCL 50 mg PO HS 04/04/17 12/20/17 Gabapentin [Neurontin] 400 mg PO TID 07/18/17 12/20/17 Acetaminophen-Codeine 300-30mg 1 tab PO Q6H PRN 09/10/17 12/20/17 [Tylenol w/codeine #3] Magnesium Oxide [Mag-Ox] 200 mg PO DAILY 09/18/17 12/20/17 Tamsulosin HCl [Flomax] 0.4 mg PO DAILY 09/18/17 12/20/17 Lipase/Protease/Amylase [Rebel Belcher 2 cap PO TID-W/MEALS 10/20/17 12/20/17 24,000 Units Capsule] Betamethasone Valerate [Luxiq 1%] 1 applic TOPICAL BID 12/11/17 12/20/17 Diazepam [Valium] 2 mg PO TID PRN 12/11/17 12/20/17 buPROPion HCL [Wellbutrin XL] 300 mg PO DAILY 12/12/17 12/20/17 Previous Rx's Medication Instructions Recorded Omeprazole [PriLOSEC] 40 mg PO BID #60 capsule. 05/16/17 Ondansetron Odt [Zofran Odt] 4 mg PO Q8HR PRN #10 tab 12/11/17 Ibuprofen [Motrin] 600 mg PO Q8HR PRN #30 tab 12/21/17 Allergies Allergy/AdvReac Type Severity Reaction Status Date / Time No Known Allergies Allergy Verified 12/21/17 15:40 Review of Systems ROS Statement: Those systems with pertinent positive or pertinent negative responses have been documented in the HPI. ROS Other: All systems not noted in ROS Statement are negative. Past Medical History Past Medical History: GERD/Reflux, GI Bleed, Hyperlipidemia, Liver Disease, Pneumonia, Prostate Disorder Additional Past Medical History / Comment(s): ETOH ABUSE RECURRANT PANCREATITIS , ALCOHOLIC HEPATITIS, NEUROPATHY BILATERAL FEET SINCE BACK SURGERY, hx of CHRONIC URINARY RETENTION DUE TO BACK PROBLEMS-SELF CATHS, CHRONIC L HYDROURETERONEPHROSIS D/T REFLUX, CHRONIC LOW BACK PAIN (HAS STIMULATOR THAT PT STATES DOES NOT WORK), HEMATEMESIS, CHRONIC LOOSE STOOLS. History of Any Multi-Drug Resistant Organisms: None Reported Past Surgical History: Back Surgery, Cholecystectomy, Orthopedic Surgery Additional Past Surgical History / Comment(s): EGDS, colonoscopy, bronchoscopy, BACK surgeries with TITANIUM PLATES MILTON and CAGES, KIDNEY STONES removed per pt, SPINAL CORD STIMULATOR, ISMAEL KNEE ARTHROSCOPIES, PINKY FINGER RT HAND REATTATCHED Past Anesthesia/Blood Transfusion Reactions: No Reported Reaction Past Psychological History: Anxiety, Depression Smoking Status: Current every day smoker Past Alcohol Use History: Daily Past Drug Use History: None Reported - Past Family History Father Family Medical History: Diabetes Mellitus Additional Family Medical History / Comment(s): Mother Family Medical History: Dementia, Hyperlipidemia, Hypertension Additional Family Medical History / Comment(s): Mother is living. General Exam Limitations: no limitations General appearance: alert, other (Appears uncomfortable) Head exam: Present: atraumatic, normocephalic Eye exam: Present: normal appearance ENT exam: Present: mucous membranes dry Neck exam: Present: normal inspection Respiratory exam: Absent: respiratory distress Cardiovascular Exam: Present: regular rate, normal rhythm GI/Abdominal exam: Present: soft, tenderness, guarding, normal bowel sounds. Absent: distended, rebound (Voluntary guarding in the epigastrium), rigid Rectal exam: Present: deferred Extremities exam: Present: full ROM Neurological exam: Present: alert, oriented X3 Psychiatric exam: Present: normal affect, normal mood Skin exam: Present: warm, dry Course Vital Signs 12/31/17 04:58 Temperature 98.2 F Pulse Rate 83 Respiratory 18 Rate Blood Pressure 126/86 O2 Sat by Pulse 100 Oximetry Medical Decision Making - Medical Decision Making Patient was seen and evaluated, history was obtained from the patient and review of his medical record Alcoholic with chronic pancreatitis and alcoholic gastritis who presents the ED with epigastric abdominal pain after drinking rum throughout the day yesterday IV fluids, Zofran and Pepcid were ordered labs resulted with an elevated lipase as well as leukocytosis Patient with recurrent pancreatitis, with elevated lipase at this time I do feel the patient requires admission for fluid rehydration and pain management Patient care was discussed with Dr. Warren who accepts the admission - Lab Data Result diagrams: 12/31/17 05:42 12/31/17 05:42 Lab Results 12/31/17 12/31/17 Range/Units 05:42 05:42 WBC 12.8 H (3.8-10.6) k/uL RBC 4.30 (4.30-5.90) m/uL Hgb 12.6 L (13.0-17.5) gm/dL Hct 39.1 (39.0-53.0) % MCV 91.0 (80.0-100.0) fL MCH 29.3 (25.0-35.0) pg MCHC 32.2 (31.0-37.0) g/dL RDW 15.5 (11.5-15.5) % Plt Count 520 H D (150-450) k/uL Neutrophils % 83 % Lymphocytes % 9 % Monocytes % 6 % Eosinophils % 0 % Basophils % 0 % Neutrophils # 10.6 H (1.3-7.7) k/uL Lymphocytes # 1.2 (1.0-4.8) k/uL Monocytes # 0.8 (0-1.0) k/uL Eosinophils # 0.1 (0-0.7) k/uL Basophils # 0.0 (0-0.2) k/uL Sodium 135 L (137-145) mmol/L Potassium 4.3 (3.5-5.1) mmol/L Chloride 103 (98-107) mmol/L Carbon Dioxide 25 (22-30) mmol/L Anion Gap 7 mmol/L BUN 9 (9-20) mg/dL Creatinine 0.59 L (0.66-1.25) mg/dL Est GFR (CKD-EPI)AfAm >90 (>60 ml/min/1.73 sqM) Est GFR (CKD-EPI)NonAf >90 (>60 ml/min/1.73 sqM) Glucose 114 H (74-99) mg/dL Calcium 9.0 (8.4-10.2) mg/dL Total Bilirubin 0.5 (0.2-1.3) mg/dL AST 17 (17-59) U/L ALT 22 (21-72) U/L Alkaline Phosphatase 117 (38-126) U/L Total Protein 6.0 L (6.3-8.2) g/dL Albumin 3.3 L (3.5-5.0) g/dL Lipase 3402 H (23-300) U/L Disposition Clinical Impression: Chronic pancreatitis Disposition: ADMITTED IP TO THIS [facility] Condition: Good Referrals: None,Stated [Primary Care Provider] - 1-2 days Decision Time: 06:51
[2017-12-31 06:05] LABS: ALT 22 U/L (21-72); AST 17 U/L (17-59); Albumin 3.3 g/dL (3.5-5.0); Alkaline Phosphatase 117 U/L (38-126); Anion Gap 7 mmol/L; Basophils % (A) 0 %; Blood Urea Nitrogen 9 mg/dL (9-20); Carbon Dioxide 25 mmol/L (22-30); Chloride 103 mmol/L (98-107); Eosinophils # (A) 0.1 k/uL (0-0.7); Eosinophils % (A) 0 %; Glucose 114 mg/dL (74-99); HCT 39.1 % (39.0-53.0); HGB 12.6 gm/dL (13.0-17.5); Lymphocytes # (A) 1.2 k/uL (1.0-4.8); Lymphocytes % (A) 9 %; MCH 29.3 pg (25.0-35.0); MCHC 32.2 g/dL (31.0-37.0); Mean Platelet Volume 6.8; Monocytes # (A) 0.8 k/uL (0-1.0); Monocytes % (A) 6 %; Neutrophils # (A) 10.6 k/uL (1.3-7.7); Neutrophils % (A) 83 %; Potassium 4.3 mmol/L (3.5-5.1); RDW 15.5 % (11.5-15.5); Sodium 135 mmol/L (137-145); Total Bilirubin 0.5 mg/dL (0.2-1.3); WBC 12.8 k/uL (3.8-10.6)
[2017-12-31 06:07] LABS: Platelet Count 520 k/uL (150-450)
[2017-12-31 06:15] LABS: Lipase 3402 U/L (23-300)
[2017-12-31] MEDS ORDERED: MORPHINE SULFATE 5 MG/ML SYRINGE IVP STA (06:21)
[2017-12-31] MEDS ORDERED: MORPHINE SULFATE 4 MG/ML SYRINGE IVP STA (06:47)
[2017-12-31] MEDS ORDERED: SODIUM CHLORIDE 0.9% 1,000 ML IV ONE (08:49)
[2017-12-31] MEDS: HYDROmorphone 1 MG/ML 1 ML SYRINGE IVP PRN ×3 (11:06→20:34)
[2017-12-31] MEDS: FAMOTIDINE 20 MG/2 ML VIAL IV SCH ×2 (11:51→20:02)
[2017-12-31] MEDS ORDERED: LIPASE 5,000/PROTEASE 17,000/AMYLASE 24,0000 PO SCH (12:30)
[2017-12-31 15:25] VITALS: RESP 16
[2017-12-31] MEDS: NICOTINE 14MG/24HR PATCH TRANSDERM SCH (16:25)
[2017-12-31] MEDS: GABAPENTIN 400 MG CAP PO SCH ×2 (16:26→21:27)
[2017-12-31] MEDS: HEPARIN SODIUM,PORCINE 5,000 UNIT/ML 1 ML VIAL SQ SCH (16:26)
[2017-12-31] MEDS: CREON PO SCH (17:31)
[2017-12-31] MEDS: ACETAMINOPHEN TAB 325 MG TAB PO PRN (19:30)
[2017-12-31] MEDS: traZODone HCL 50 MG TAB PO SCH (20:02)
[2017-12-31] MEDS: ONDANSETRON 4 MG/2 ML VIAL IVP PRN (20:05)
[2017-12-31] MEDS: TRIAMCINOLONE 0.1% CREAM 80 GM TUBE TOPICAL SCH (20:09)
--- NOTE | 2017-12-31 22:11 | P.HPIM ---
History of Present Illness H&P Date: 12/31/17 Chief Complaint: Abdominal pain Patient is a 47-year-old male with past medical history significant for GERD, hyperlipidemia, alcoholic liver disease, BPH and alcohol abuse and chronic pancreatitis who returns to our emergency department today for reevaluation of epigastric abdominal pain consistent with previous episodes of pancreatitis flare. Abdominal pain is mainly in the epigastric region radiating to the back. Patient admits that he was drinking rum yesterday throughout the night he developed progressively worsening epigastric abdominal pain which is sharp in nature and radiating to his back. Pain is associated with nausea, a few episodes of nonbloody nonbilious emesis. The patient denies any fever, Chills, chest pain, shortness of breath or change in bowel or bladder habits. Lipase level 3402 WBC 12.8 Platelets 520k Review of Systems Constitutional: Patient denies any fever or chills . No generalized weakness or weight loss. Abdomen: Patient does have nausea vomiting and epigastric abdominal pain. No diarrhea. Cardiovascular: Patient denies any chest pain or short of breath no palpitations. Respiratory: patient denied any cough is from production. No shortness of breath Neurologic: Patient denied any numbness or tingling headache. Musculoskeletal: Patient denies any complaints of joint swelling or deformity. Skin: Negative Psychiatric: Negative Endocrine: No heat or cold intolerance. No recent weight gain. Genitourinary: No dysuria or hematuria. All other 14 point ROS negative except the above Past Medical History Past Medical History: GERD/Reflux, GI Bleed, Hyperlipidemia, Liver Disease, Pneumonia, Prostate Disorder Additional Past Medical History / Comment(s): ETOH ABUSE RECURRANT PANCREATITIS , ALCOHOLIC HEPATITIS, NEUROPATHY BILATERAL FEET SINCE BACK SURGERY, hx of CHRONIC URINARY RETENTION DUE TO BACK PROBLEMS-SELF CATHS, CHRONIC L HYDROURETERONEPHROSIS D/T REFLUX, CHRONIC LOW BACK PAIN (HAS STIMULATOR THAT PT STATES DOES NOT WORK), HEMATEMESIS, CHRONIC LOOSE STOOLS. History of Any Multi-Drug Resistant Organisms: None Reported Past Surgical History: Back Surgery, Cholecystectomy, Orthopedic Surgery Additional Past Surgical History / Comment(s): EGDS, colonoscopy, bronchoscopy, BACK surgeries with TITANIUM PLATES MILTON and CAGES, KIDNEY STONES removed per pt, SPINAL CORD STIMULATOR, ISMAEL KNEE ARTHROSCOPIES, PINKY FINGER RT HAND REATTATCHED Past Anesthesia/Blood Transfusion Reactions: No Reported Reaction Past Psychological History: Anxiety, Depression Smoking Status: Current every day smoker Past Alcohol Use History: Daily Past Drug Use History: None Reported - Past Family History Father Family Medical History: Diabetes Mellitus Additional Family Medical History / Comment(s): Mother Family Medical History: Dementia, Hyperlipidemia, Hypertension Additional Family Medical History / Comment(s): Mother is living. Medications and Allergies Home Medications Medication Instructions Recorded Confirmed Type traZODone HCL 50 mg PO HS 04/04/17 12/31/17 History Omeprazole [PriLOSEC] 40 mg PO BID #60 capsule. 05/16/17 12/31/17 Rx Gabapentin [Neurontin] 400 mg PO TID 07/18/17 12/31/17 History Magnesium Oxide [Mag-Ox] 200 mg PO DAILY 09/18/17 12/31/17 History Tamsulosin HCl [Flomax] 0.4 mg PO DAILY 09/18/17 12/31/17 History Lipase/Protease/Amylase [Creon Dr 2 cap PO TID-W/MEALS 10/20/17 12/31/17 History 24,000 Units Capsule] Betamethasone Valerate [Luxiq 1%] 1 applic TOPICAL BID 12/11/17 12/31/17 History Diazepam [Valium] 2 mg PO TID PRN 12/11/17 12/31/17 History Ondansetron Odt [Zofran Odt] 4 mg PO Q8HR PRN #10 tab 12/11/17 12/31/17 Rx buPROPion HCL [Wellbutrin XL] 300 mg PO DAILY 12/12/17 12/31/17 History Ibuprofen [Motrin] 600 mg PO Q8HR PRN #30 tab 12/21/17 12/31/17 Rx Allergies Allergy/AdvReac Type Severity Reaction Status Date / Time No Known Allergies Allergy Verified 12/31/17 07:25 Physical Exam Vitals: Vital Signs Temp Pulse Pulse Pulse Resp BP BP 12/31/17 10:44 97.7 F 85 85 18 150/88 12/31/17 09:23 82 18 132/87 12/31/17 07:23 86 18 161/91 12/31/17 04:58 98.2 F 83 18 126/86 Pulse Ox 12/31/17 10:44 100 12/31/17 09:23 100 12/31/17 07:23 100 12/31/17 04:58 100 Intake and Output 12/30/17 12/31/17 12/31/17 22:59 06:59 14:59 Other: Weight 53.977 kg PHYSICAL EXAMINATION: Patient is lying in the bed comfortably, no acute distress, awake alert and oriented.. HEENT: Normocephalic. Neck is supple. Pupils reactive. Nostrils clear. Oral cavity is moist. Ears reveal no drainage. Neck reveals no JVD, carotid bruits, or thyromegaly. CHEST EXAMINATION: Trachea is central. Symmetrical expansion. Lung cowan clear to auscultation and percussion. CARDIAC: Normal S1, S2 with no gallops. No murmurs ABDOMEN: Soft. Epigastric tenderness. Bowel sounds normal. No organomegaly. No abdominal bruits. Extremities: reveal no edema. No clubbing or cyanosis Neurologically awake, alert, oriented x3 with well-coordinated movements. No focal deficits noted Skin: No rash or skin lesions. Psychiatric: Coperative. Anxious. Nonsuicidal Musculoskeletal: No joint swelling or deformity. Normal range of motion. Results CBC & Chem 7: 12/31/17 05:42 12/31/17 05:42 Labs: Abnormal Lab Results - Last 24 Hours (Table) 12/31/17 12/31/17 Range/Units 05:42 05:42 WBC 12.8 H (3.8-10.6) k/uL Hgb 12.6 L (13.0-17.5) gm/dL Plt Count 520 H D (150-450) k/uL Neutrophils # 10.6 H (1.3-7.7) k/uL Sodium 135 L (137-145) mmol/L Creatinine 0.59 L (0.66-1.25) mg/dL Glucose 114 H (74-99) mg/dL Total Protein 6.0 L (6.3-8.2) g/dL Albumin 3.3 L (3.5-5.0) g/dL Lipase 3402 H (23-300) U/L Thrombosis Risk Factor Assmnt - DVT/VTE Prophylaxis DVT/VTE Prophylaxis: Pharmacologic Prophylaxis ordered Assessment and Plan Assessment: Acute on chronic alcoholic pancreatitis Alcohol abuse Alcoholic liver disease GERD History of GI bleed Anxiety and depression Currently everyday smoker Thrombocytosis DVT prophylaxis Plan: Patient will be continued on IV hydration with normal saline and nothing by mouth. Pain management with Dilaudid intravenously 0.5 mg every 4 hours as needed.. Continue the home medications. Thiamine and multivitamins. Counseled for alcohol abuse as well as smoking cessation. Further recommendations based on the clinical course. Time with Patient: Greater than 30
[2018-01-01] MEDS: HYDROmorphone 1 MG/ML 1 ML SYRINGE IVP PRN ×6 (00:32→20:53)
[2018-01-01] MEDS: HEPARIN SODIUM,PORCINE 5,000 UNIT/ML 1 ML VIAL SQ SCH ×4 (00:33→23:46)
[2018-01-01] MEDS: ONDANSETRON 4 MG/2 ML VIAL IVP PRN ×2 (04:39→20:05)
[2018-01-01 07:44] LABS: Basophils % (A) 0 %; Eosinophils # (A) 0.1 k/uL (0-0.7); Eosinophils % (A) 1 %; HCT 32.6 % (39.0-53.0); HGB 10.7 gm/dL (13.0-17.5); Lymphocytes # (A) 0.8 k/uL (1.0-4.8); Lymphocytes % (A) 8 %; MCHC 32.9 g/dL (31.0-37.0); MCV 91.4 fL (80.0-100.0); Mean Platelet Volume 6.9; Monocytes # (A) 0.5 k/uL (0-1.0); Monocytes % (A) 5 %; Neutrophils # (A) 8.5 k/uL (1.3-7.7); Neutrophils % (A) 86 %; Platelet Count 331 k/uL (150-450); RBC 3.57 m/uL (4.30-5.90); RDW 15.4 % (11.5-15.5)
[2018-01-01 07:59] LABS: Anion Gap 2 mmol/L; Blood Urea Nitrogen 7 mg/dL (9-20); Calcium 8.1 mg/dL (8.4-10.2); Carbon Dioxide 24 mmol/L (22-30); Chloride 106 mmol/L (98-107); Glucose 98 mg/dL (74-99); Potassium 4.2 mmol/L (3.5-5.1); Sodium 132 mmol/L (137-145)
[2018-01-01] MEDS: CREON PO SCH ×3 (08:45→17:35)
[2018-01-01] MEDS: GABAPENTIN 400 MG CAP PO SCH ×3 (08:46→20:53)
[2018-01-01] MEDS: MAGNESIUM OXIDE 400 MG TAB PO SCH (08:46)
[2018-01-01] MEDS: buPROPion XL 300 MG TAB.ER.24H PO SCH (08:46)
[2018-01-01] MEDS: NICOTINE 14MG/24HR PATCH TRANSDERM SCH (08:46)
[2018-01-01] MEDS: FAMOTIDINE 20 MG/2 ML VIAL IV SCH ×2 (08:49→20:03)
[2018-01-01] MEDS: TRIAMCINOLONE 0.1% CREAM 80 GM TUBE TOPICAL SCH ×2 (08:50→20:10)
[2018-01-01] MEDS: TAMSULOSIN 0.4 MG CAP.ER.24H PO SCH (08:50)
[2018-01-01 10:48] VITALS: BMI 19.2
[2018-01-01] MEDS: MULTIVITAMINS, THERA 1 EACH TAB PO SCH (12:37)
[2018-01-01] MEDS: THIAMINE 100 MG TAB PO SCH (12:37)
[2018-01-01] MEDS: ACETAMINOPHEN TAB 325 MG TAB PO PRN (19:24)
[2018-01-01] MEDS: traZODone HCL 50 MG TAB PO SCH (20:03)
[2018-01-02] MEDS: HYDROmorphone 1 MG/ML 1 ML SYRINGE IVP PRN ×3 (02:32→11:09)
[2018-01-02] MEDS: ACETAMINOPHEN TAB 325 MG TAB PO PRN ×2 (05:08→12:05)
[2018-01-02 06:01] VITALS: BP 128/83; PULSE 72; TEMP 97.6
[2018-01-02] MEDS: TRIAMCINOLONE 0.1% CREAM 80 GM TUBE TOPICAL SCH (07:26)
[2018-01-02] MEDS: FAMOTIDINE 20 MG/2 ML VIAL IV SCH (07:27)
[2018-01-02] MEDS: MAGNESIUM OXIDE 400 MG TAB PO SCH (07:27)
[2018-01-02] MEDS: TAMSULOSIN 0.4 MG CAP.ER.24H PO SCH (07:27)
[2018-01-02] MEDS: GABAPENTIN 400 MG CAP PO SCH (07:27)
[2018-01-02] MEDS: HEPARIN SODIUM,PORCINE 5,000 UNIT/ML 1 ML VIAL SQ SCH (07:28)
[2018-01-02] MEDS: NICOTINE 14MG/24HR PATCH TRANSDERM SCH (07:28)
[2018-01-02] MEDS: buPROPion XL 300 MG TAB.ER.24H PO SCH (07:28)
[2018-01-02] MEDS: CREON PO SCH ×2 (07:28→12:05)
[2018-01-02] MEDS: THIAMINE 100 MG TAB PO SCH (12:05)
[2018-01-02] MEDS: MULTIVITAMINS, THERA 1 EACH TAB PO SCH (12:05)
== END 2018-01-02 16:04 | disposition home or self-care (01) | DRG 440 ==
LOC: EC 04:49 → 5MS5E 08:37
PROVIDERS: ADMIT Internal Medicine; ATTEND Internal Medicine
DX: K85.20 Alcohol induced acute pancreatitis without necrosis or infection (principal); K86.0 Alcohol-induced chronic pancreatitis; E78.5 Hyperlipidemia, unspecified; F10.10 Alcohol abuse, uncomplicated; F17.200 Nicotine dependence, unspecified, uncomplicated; Z71.41 Alcohol abuse counseling and surveillance of alcoholic; Z71.6 Tobacco abuse counseling; F32.9 Major depressive disorder, single episode, unspecified; F41.9 Anxiety disorder, unspecified; K21.9 Gastro-esophageal reflux disease without esophagitis; K29.20 Alcoholic gastritis without bleeding; K70.9 Alcoholic liver disease, unspecified; N40.1 Benign prostatic hyperplasia with lower urinary tract symptoms; R33.8 Other retention of urine; Z79.899 Other long term (current) drug therapy; Z82.49 Family history of ischemic heart disease and other diseases of the circulatory system; Z83.3 Family history of diabetes mellitus; Z87.442 Personal history of urinary calculi; Z87.19 Personal history of other diseases of the digestive system; Z87.01 Personal history of pneumonia (recurrent); G89.29 Other chronic pain; G62.9 Polyneuropathy, unspecified; Z82.0 Family history of epilepsy and other diseases of the nervous system; M54.5 Low back pain
CPT/HCPCS: 36415; 80048; 80053; 83690; 85025; 96361; 96374; 96375; 99284

== ENCOUNTER 2018-01-04 04:13 | Emergency (ER) | payer MEDICARE, OTHER ==
[2018-01-04 04:23] VITALS: RESP 18; TEMP 98.2
[2018-01-04] MEDS ORDERED: ONDANSETRON 4 MG/2 ML VIAL IVP STA (04:35)
[2018-01-04] MEDS ORDERED: SODIUM CHLORIDE 0.9% 1,000 ML IV STA (04:35)
--- NOTE | 2018-01-04 04:49 | ED ---
General Adult HPI - General Chief complaint: Abdominal Pain Stated complaint: ABD PAIN,SOB Time Seen by Provider: 01/04/18 04:35 Source: patient Mode of arrival: wheelchair Limitations: no limitations - History of Present Illness Initial comments: Regarding 7-year-old alcoholic male with a history of chronic pancreatitis and chronic alcoholic gastritis presenting to the emergency department today for evaluation of epigastric abdominal pain. Patient was admitted earlier in the week for elevated lipase after drinking rum. Patient reports he was discharged he admits to drinking some rum and Coke and developing immediate pain and nausea and vomiting coming back to the ER. Patient reports the pain is sharp, epigastric associated with nausea and nonbloody nonbilious emesis. Pain is identical to previous episodes of alcoholic gastritis or pancreatitis. No medications home prior to coming to the ER for evaluation. - Related Data Home Medications Medication Instructions Recorded Confirmed traZODone HCL 50 mg PO HS 04/04/17 12/31/17 Gabapentin [Neurontin] 400 mg PO TID 07/18/17 12/31/17 Magnesium Oxide [Mag-Ox] 200 mg PO DAILY 09/18/17 12/31/17 Tamsulosin HCl [Flomax] 0.4 mg PO DAILY 09/18/17 12/31/17 Lipase/Protease/Amylase [Creletha Belcher 2 cap PO TID-W/MEALS 10/20/17 12/31/17 24,000 Units Capsule] Betamethasone Valerate [Luxiq 1%] 1 applic TOPICAL BID 12/11/17 12/31/17 Diazepam [Valium] 2 mg PO TID PRN 12/11/17 12/31/17 buPROPion HCL [Wellbutrin XL] 300 mg PO DAILY 12/12/17 12/31/17 Previous Rx's Medication Instructions Recorded Omeprazole [PriLOSEC] 40 mg PO BID #60 capsule. 05/16/17 Ondansetron Odt [Zofran ODT] 4 mg PO Q8HR PRN #10 tab 12/11/17 Ibuprofen [Motrin] 600 mg PO Q8HR PRN #30 tab 12/21/17 HYDROcodone/APAP 5-325MG [Welcome 1 tab PO Q6HR PRN 3 Days #12 tab 01/02/18 5-325] Multivitamins, Thera [Multivitamin 1 each PO DAILY@1200 #30 tab 01/02/18 (formulary)] Thiamine [Vitamin B-1] 100 mg PO DAILY@1200 #30 tab 01/02/18 Allergies Allergy/AdvReac Type Severity Reaction Status Date / Time No Known Allergies Allergy Verified 01/04/18 04:23 Review of Systems ROS Statement: Those systems with pertinent positive or pertinent negative responses have been documented in the HPI. ROS Other: All systems not noted in ROS Statement are negative. Past Medical History Past Medical History: GERD/Reflux, GI Bleed, Hyperlipidemia, Liver Disease, Pneumonia, Prostate Disorder Additional Past Medical History / Comment(s): ETOH ABUSE RECURRANT PANCREATITIS , ALCOHOLIC HEPATITIS, NEUROPATHY BILATERAL FEET SINCE BACK SURGERY, hx of CHRONIC URINARY RETENTION DUE TO BACK PROBLEMS-SELF CATHS, CHRONIC L HYDROURETERONEPHROSIS D/T REFLUX, CHRONIC LOW BACK PAIN (HAS STIMULATOR THAT PT STATES DOES NOT WORK), HEMATEMESIS, CHRONIC LOOSE STOOLS. History of Any Multi-Drug Resistant Organisms: None Reported Past Surgical History: Back Surgery, Cholecystectomy, Orthopedic Surgery Additional Past Surgical History / Comment(s): EGDS, colonoscopy, bronchoscopy, BACK surgeries with TITANIUM PLATES MILTON and CAGES, KIDNEY STONES removed per pt, SPINAL CORD STIMULATOR, ISMAEL KNEE ARTHROSCOPIES, PINKY FINGER RT HAND REATTATCHED Past Anesthesia/Blood Transfusion Reactions: No Reported Reaction Past Psychological History: Anxiety, Depression Smoking Status: Current every day smoker Past Alcohol Use History: Daily Past Drug Use History: None Reported - Past Family History Father Family Medical History: Diabetes Mellitus Additional Family Medical History / Comment(s): Mother Family Medical History: Dementia, Hyperlipidemia, Hypertension Additional Family Medical History / Comment(s): Mother is living. General Exam Limitations: no limitations General appearance: alert Head exam: Present: atraumatic, normocephalic Eye exam: Present: PERRL ENT exam: Present: mucous membranes moist, other (Poor dentition) Neck exam: Present: full ROM Respiratory exam: Absent: respiratory distress Cardiovascular Exam: Present: regular rate GI/Abdominal exam: Present: soft. Absent: distended Rectal exam: Present: deferred Extremities exam: Present: full ROM, normal capillary refill. Absent: pedal edema Neurological exam: Present: alert, oriented X3 Psychiatric exam: Present: flat affect Skin exam: Present: warm, dry Course Vital Signs 01/04/18 01/04/18 04:20 04:54 Temperature 98.2 F Pulse Rate 79 91 Respiratory 18 18 Rate Blood Pressure 132/91 137/81 O2 Sat by Pulse 100 96 Oximetry Medical Decision Making - Medical Decision Making The patient was seen and evaluated, history is obtained from the patient and review of medical record A very familiar to the emergency department, I evaluated and admitted him earlier in the week for acute on chronic pancreatitis Patient returns to ER with burning epigastric pain after drinking rum and Coke, patient's vital signs are normal, have a high suspicion for gastritis Patient repeatedly requesting narcotic pain medication, I advised that he will not receive any narcotic pain medication until we have a definitive diagnosis Offered the patient a GI cocktail for gastritis but he declined Labs with no elevation of lipase, otherwise at baseline Results were discussed with the patient, I again offered a GI cocktail for alcoholic gastritis he again declined and is agreeable to plan for discharge home. - Lab Data Result diagrams: 01/04/18 04:40 01/04/18 04:40 Lab Results 01/04/18 01/04/18 Range/Units 04:40 04:40 WBC 8.2 (3.8-10.6) k/uL RBC 3.82 L (4.30-5.90) m/uL Hgb 11.3 L (13.0-17.5) gm/dL Hct 34.4 L (39.0-53.0) % MCV 90.1 (80.0-100.0) fL MCH 29.7 (25.0-35.0) pg MCHC 32.9 (31.0-37.0) g/dL RDW 15.4 (11.5-15.5) % Plt Count 412 (150-450) k/uL Neutrophils % 72 % Lymphocytes % 17 % Monocytes % 7 % Eosinophils % 2 % Basophils % 0 % Neutrophils # 6.0 (1.3-7.7) k/uL Lymphocytes # 1.4 (1.0-4.8) k/uL Monocytes # 0.6 (0-1.0) k/uL Eosinophils # 0.2 (0-0.7) k/uL Basophils # 0.0 (0-0.2) k/uL Sodium 134 L (137-145) mmol/L Potassium 4.6 (3.5-5.1) mmol/L Chloride 100 (98-107) mmol/L Carbon Dioxide 28 (22-30) mmol/L Anion Gap 6 mmol/L BUN 6 L (9-20) mg/dL Creatinine 0.50 L (0.66-1.25) mg/dL Est GFR (CKD-EPI)AfAm >90 (>60 ml/min/1.73 sqM) Est GFR (CKD-EPI)NonAf >90 (>60 ml/min/1.73 sqM) Glucose 98 (74-99) mg/dL Calcium 9.3 (8.4-10.2) mg/dL Total Bilirubin 0.2 (0.2-1.3) mg/dL AST 15 L (17-59) U/L ALT 30 (21-72) U/L Alkaline Phosphatase 145 H (38-126) U/L Total Protein 5.9 L (6.3-8.2) g/dL Albumin 3.0 L (3.5-5.0) g/dL Lipase 83 (23-300) U/L Disposition Clinical Impression: Abdominal pain, Chronic pancreatitis, Alcohol abuse Disposition: HOME SELF-CARE Condition: Fair Instructions: Abdominal Pain (ED) Is patient prescribed a controlled substance at d/c from ED?: No Referrals: None,Stated [Primary Care Provider] - 1-2 days Time of Disposition: 05:35
[2018-01-04 04:54] VITALS: BP 137/81; PULSE 91
[2018-01-04 05:03] LABS: Basophils % (A) 0 %; Eosinophils # (A) 0.2 k/uL (0-0.7); Eosinophils % (A) 2 %; HCT 34.4 % (39.0-53.0); HGB 11.3 gm/dL (13.0-17.5); Lymphocytes # (A) 1.4 k/uL (1.0-4.8); Lymphocytes % (A) 17 %; MCH 29.7 pg (25.0-35.0); MCHC 32.9 g/dL (31.0-37.0); MCV 90.1 fL (80.0-100.0); Mean Platelet Volume 6.6; Monocytes # (A) 0.6 k/uL (0-1.0); Monocytes % (A) 7 %; Neutrophils % (A) 72 %; Platelet Count 412 k/uL (150-450); RBC 3.82 m/uL (4.30-5.90); RDW 15.4 % (11.5-15.5); WBC 8.2 k/uL (3.8-10.6)
[2018-01-04 05:12] LABS: ALT 30 U/L (21-72); AST 15 U/L (17-59); Alkaline Phosphatase 145 U/L (38-126); Anion Gap 6 mmol/L; Blood Urea Nitrogen 6 mg/dL (9-20); Calcium 9.3 mg/dL (8.4-10.2); Carbon Dioxide 28 mmol/L (22-30); Chloride 100 mmol/L (98-107); Glucose 98 mg/dL (74-99); Lipase 83 U/L (23-300); Potassium 4.6 mmol/L (3.5-5.1); Sodium 134 mmol/L (137-145); Total Bilirubin 0.2 mg/dL (0.2-1.3); Total Protein 5.9 g/dL (6.3-8.2)
[2018-01-04] MEDS ORDERED: MAG HYDROX/AL HYDROX/SIMETH 30 ML, HYOSCYAMINE ELIXIR 10 ML, CIMETIDINE HCL 300 MG, LID... PO STA ×4 (05:29)
== END 2018-01-04 05:40 | disposition home or self-care (01) ==
LOC: EC 04:13
DX: K86.1 Other chronic pancreatitis (principal); F10.10 Alcohol abuse, uncomplicated; E78.5 Hyperlipidemia, unspecified; G62.9 Polyneuropathy, unspecified; N42.9 Disorder of prostate, unspecified; F32.9 Major depressive disorder, single episode, unspecified; F41.9 Anxiety disorder, unspecified; F17.200 Nicotine dependence, unspecified, uncomplicated; Z79.899 Other long term (current) drug therapy; Z90.49 Acquired absence of other specified parts of digestive tract
CPT/HCPCS: 99284; 96374; 96361; 36415; 80053; 83690; 85025; J2405

== ENCOUNTER 2018-01-06 05:03 | Inpatient (IN) | payer MEDICARE, OTHER ==
[2018-01-06] MEDS ORDERED: SODIUM CHLORIDE 0.9% 1,000 ML IV STA (05:26)
[2018-01-06] MEDS ORDERED: MORPHINE SULFATE 4 MG/ML SYRINGE IVP STA (05:58)
[2018-01-06] MEDS ORDERED: ONDANSETRON 4 MG/2 ML VIAL IVP STA (05:58)
--- NOTE | 2018-01-06 06:02 | ED ---
General Adult HPI - General Chief complaint: Abdominal Pain Stated complaint: Abdominal Pain Time Seen by Provider: 01/06/18 05:26 Source: patient, RN notes reviewed, old records reviewed Mode of arrival: ambulatory Limitations: no limitations - History of Present Illness Initial comments: 47-year-old male presents for evaluation of epigastric abdominal pain. Patient has long standing history of pancreatitis and states his symptoms are identical to his typical abdominal pain associated with his pancreatitis. Denies fever or chills. Denies chest pain. Denies significant vomiting. Pain is upper abdominal only. No lower abdominal pain. No diarrhea. Patient does admit to drinking alcohol yesterday evening. - Related Data Home Medications Medication Instructions Recorded Confirmed traZODone HCL 50 mg PO HS 04/04/17 12/31/17 Gabapentin [Neurontin] 400 mg PO TID 07/18/17 12/31/17 Magnesium Oxide [Mag-Ox] 200 mg PO DAILY 09/18/17 12/31/17 Tamsulosin HCl [Flomax] 0.4 mg PO DAILY 09/18/17 12/31/17 Lipase/Protease/Amylase [Re[place] 2 cap PO TID-W/MEALS 10/20/17 12/31/17 24,000 Units Capsule] Betamethasone Valerate [Luxiq 1%] 1 applic TOPICAL BID 12/11/17 12/31/17 Diazepam [Valium] 2 mg PO TID PRN 12/11/17 12/31/17 buPROPion HCL [Wellbutrin XL] 300 mg PO DAILY 12/12/17 12/31/17 Previous Rx's Medication Instructions Recorded Omeprazole [PriLOSEC] 40 mg PO BID #60 capsule. 05/16/17 Ondansetron Odt [Zofran ODT] 4 mg PO Q8HR PRN #10 tab 12/11/17 Ibuprofen [Motrin] 600 mg PO Q8HR PRN #30 tab 12/21/17 HYDROcodone/APAP 5-325MG [[place] 1 tab PO Q6HR PRN 3 Days #12 tab 01/02/18 5-325] Multivitamins, Thera [Multivitamin 1 each PO DAILY@1200 #30 tab 01/02/18 (formulary)] Thiamine [Vitamin B-1] 100 mg PO DAILY@1200 #30 tab 01/02/18 Allergies Allergy/AdvReac Type Severity Reaction Status Date / Time No Known Allergies Allergy Verified 01/06/18 05:11 Review of Systems ROS Statement: Those systems with pertinent positive or pertinent negative responses have been documented in the HPI. ROS Other: All systems not noted in ROS Statement are negative. Past Medical History Past Medical History: GERD/Reflux, GI Bleed, Hyperlipidemia, Liver Disease, Pneumonia, Prostate Disorder Additional Past Medical History / Comment(s): ETOH ABUSE RECURRANT PANCREATITIS , ALCOHOLIC HEPATITIS, NEUROPATHY BILATERAL FEET SINCE BACK SURGERY, hx of CHRONIC URINARY RETENTION DUE TO BACK PROBLEMS-SELF CATHS, CHRONIC L HYDROURETERONEPHROSIS D/T REFLUX, CHRONIC LOW BACK PAIN (HAS STIMULATOR THAT PT STATES DOES NOT WORK), HEMATEMESIS, CHRONIC LOOSE STOOLS. History of Any Multi-Drug Resistant Organisms: None Reported Past Surgical History: Back Surgery, Cholecystectomy, Orthopedic Surgery Additional Past Surgical History / Comment(s): EGDS, colonoscopy, bronchoscopy, BACK surgeries with TITANIUM PLATES MILTON and CAGES, KIDNEY STONES removed per pt, SPINAL CORD STIMULATOR, ISMAEL KNEE ARTHROSCOPIES, PINKY FINGER RT HAND REATTATCHED Past Anesthesia/Blood Transfusion Reactions: No Reported Reaction Past Psychological History: Anxiety, Depression Smoking Status: Current every day smoker Past Alcohol Use History: Daily Past Drug Use History: None Reported - Past Family History Father Family Medical History: Diabetes Mellitus Additional Family Medical History / Comment(s): Mother Family Medical History: Dementia, Hyperlipidemia, Hypertension Additional Family Medical History / Comment(s): Mother is living. General Exam Limitations: no limitations General appearance: alert, in no apparent distress Head exam: Present: atraumatic, normocephalic Eye exam: Present: normal appearance, PERRL ENT exam: Present: normal exam Neck exam: Present: normal inspection. Absent: tenderness, meningismus Respiratory exam: Present: normal lung sounds bilaterally. Absent: respiratory distress, wheezes Cardiovascular Exam: Present: regular rate, normal rhythm GI/Abdominal exam: Present: soft, tenderness (Mild epigastric tenderness). Absent: distended, guarding, rebound Extremities exam: Present: normal inspection, normal capillary refill. Absent: pedal edema Neurological exam: Present: alert, oriented X3, CN II-XII intact. Absent: motor sensory deficit Psychiatric exam: Present: normal affect, normal mood Skin exam: Present: warm, dry, intact. Absent: cyanosis, diaphoretic Course Vital Signs 01/06/18 05:09 Temperature 98.3 F Pulse Rate 84 Respiratory 18 Rate Blood Pressure 109/70 O2 Sat by Pulse 100 Oximetry Medical Decision Making - Medical Decision Making 47-year-old male with acute on chronic pancreatitis. Patient has significant abdominal tenderness, he does appear somewhat dehydrated clinically. studies reveal mild leukocytosis, stable hemoglobin, lipase is significantly elevated at 3560. Patient will be kept in observation for symptomatic treatment of acute on chronic pancreatitis. - Lab Data Result diagrams: 01/06/18 05:40 01/06/18 05:40 Lab Results 01/06/18 01/06/18 Range/Units 05:40 05:40 WBC 13.2 H (3.8-10.6) k/uL RBC 4.22 L (4.30-5.90) m/uL Hgb 12.4 L (13.0-17.5) gm/dL Hct 37.7 L (39.0-53.0) % MCV 89.3 (80.0-100.0) fL MCH 29.5 (25.0-35.0) pg MCHC 33.0 (31.0-37.0) g/dL RDW 15.4 (11.5-15.5) % Plt Count 394 (150-450) k/uL Neutrophils % 79 % Lymphocytes % 11 % Monocytes % 9 % Eosinophils % 1 % Basophils % 0 % Neutrophils # 10.4 H (1.3-7.7) k/uL Lymphocytes # 1.4 (1.0-4.8) k/uL Monocytes # 1.2 H (0-1.0) k/uL Eosinophils # 0.2 (0-0.7) k/uL Basophils # 0.0 (0-0.2) k/uL Sodium 133 L (137-145) mmol/L Potassium 4.7 (3.5-5.1) mmol/L Chloride 100 (98-107) mmol/L Carbon Dioxide 23 (22-30) mmol/L Anion Gap 10 mmol/L BUN 5 L (9-20) mg/dL Creatinine 0.74 (0.66-1.25) mg/dL Est GFR (CKD-EPI)AfAm >90 (>60 ml/min/1.73 sqM) Est GFR (CKD-EPI)NonAf >90 (>60 ml/min/1.73 sqM) Glucose 99 (74-99) mg/dL Calcium 8.9 (8.4-10.2) mg/dL Total Bilirubin 0.6 (0.2-1.3) mg/dL AST 23 (17-59) U/L ALT 21 (21-72) U/L Alkaline Phosphatase 143 H (38-126) U/L Total Protein 6.6 (6.3-8.2) g/dL Albumin 3.4 L (3.5-5.0) g/dL Amylase 294 H (30-110) U/L Lipase 3561 H (23-300) U/L Serum Alcohol <10 mg/dL Disposition Clinical Impression: Chronic pancreatitis, Abdominal pain, Acute on chronic pancreatitis Disposition: ADMITTED IP TO THIS [facility] Condition: Stable Is patient prescribed a controlled substance at d/c from ED?: No Referrals: Kerri Quinones MD [Primary Care Provider] - 1-2 days Decision to Admit Reason: Admit from EC Decision Date: 01/06/18 Decision Time: 06:35
[2018-01-06 06:09] LABS: Basophils % (A) 0 %; Eosinophils # (A) 0.2 k/uL (0-0.7); Eosinophils % (A) 1 %; HCT 37.7 % (39.0-53.0); HGB 12.4 gm/dL (13.0-17.5); Lymphocytes # (A) 1.4 k/uL (1.0-4.8); Lymphocytes % (A) 11 %; MCH 29.5 pg (25.0-35.0); MCV 89.3 fL (80.0-100.0); Mean Platelet Volume 7.3; Monocytes # (A) 1.2 k/uL (0-1.0); Monocytes % (A) 9 %; Neutrophils # (A) 10.4 k/uL (1.3-7.7); Neutrophils % (A) 79 %; Platelet Count 394 k/uL (150-450); RBC 4.22 m/uL (4.30-5.90); RDW 15.4 % (11.5-15.5); WBC 13.2 k/uL (3.8-10.6)
[2018-01-06 06:13] LABS: ALT 21 U/L (21-72); AST 23 U/L (17-59); Albumin 3.4 g/dL (3.5-5.0); Alcohol <10 mg/dL; Alkaline Phosphatase 143 U/L (38-126); Amylase 294 U/L (30-110); Anion Gap 10 mmol/L; Blood Urea Nitrogen 5 mg/dL (9-20); Calcium 8.9 mg/dL (8.4-10.2); Carbon Dioxide 23 mmol/L (22-30); Chloride 100 mmol/L (98-107); Glucose 99 mg/dL (74-99); Potassium 4.7 mmol/L (3.5-5.1); Sodium 133 mmol/L (137-145); Total Bilirubin 0.6 mg/dL (0.2-1.3); Total Protein 6.6 g/dL (6.3-8.2)
[2018-01-06 06:22] LABS: Lipase 3561 U/L (23-300)
[2018-01-06] MEDS ORDERED: ONDANSETRON 4 MG/2 ML VIAL IVP PRN (06:32)
[2018-01-06] MEDS ORDERED: NALOXONE 0.4 MG/ML 1 ML VIAL IV PRN (06:32)
[2018-01-06] MEDS: SODIUM CHLORIDE 0.9% 1,000 ML IV SCH ×2 (07:16→18:36)
[2018-01-06 08:56] VITALS: BMI 19.2
[2018-01-06] MEDS: MORPHINE SULFATE 4 MG/ML SYRINGE IV PRN ×4 (10:30→21:57)
[2018-01-06] MEDS: NICOTINE 21MG/24HR PATCH TRANSDERM SCH (13:23)
--- NOTE | 2018-01-06 21:51 | P.HPIM ---
History of Present Illness H&P Date: 01/06/18 Chief Complaint: Abdominal pain Patient is a 47-year-old male with past medical history significant for GERD, hyperlipidemia, alcoholic liver disease, BPH and alcohol abuse and chronic pancreatitis who returns to our emergency department today for reevaluation of epigastric abdominal pain consistent with previous episodes of pancreatitis flare. Abdominal pain is mainly in the epigastric region radiating to the back. Patient went to his friend's birthday alliance party. Patient admits that he was drinking rum yesterday throughout the night he developed progressively worsening epigastric abdominal pain which is sharp in nature and radiating to his back. Pain is associated with nausea, a few episodes of nonbloody nonbilious emesis. The patient denies any fever, Chills, chest pain, shortness of breath or change in bowel or bladder habits. Lipase level 3560 WBC 13.1 Platelets 520k Review of Systems Constitutional: Patient denies any fever or chills . No generalized weakness or weight loss. Abdomen: Patient does have abdominal pain radiating to the back and nausea no vomiting. Cardiovascular: Patient denies any chest pain or short of breath no palpitations. Respiratory: patient denied any cough is from production. No shortness of breath Neurologic: Patient denied any numbness or tingling headache. Musculoskeletal: Patient denies any complaints of joint swelling or deformity. Skin: Negative Psychiatric: Negative Endocrine: No heat or cold intolerance. No recent weight gain. Genitourinary: No dysuria or hematuria. All other 14 point ROS negative except the above Past Medical History Past Medical History: GERD/Reflux, GI Bleed, Hyperlipidemia, Liver Disease, Pneumonia, Prostate Disorder Additional Past Medical History / Comment(s): ETOH ABUSE RECURRANT PANCREATITIS , ALCOHOLIC HEPATITIS, NEUROPATHY BILATERAL FEET SINCE BACK SURGERY, hx of CHRONIC URINARY RETENTION DUE TO BACK PROBLEMS-SELF CATHS, CHRONIC L HYDROURETERONEPHROSIS D/T REFLUX, CHRONIC LOW BACK PAIN (HAS STIMULATOR THAT PT STATES DOES NOT WORK), HEMATEMESIS, CHRONIC LOOSE STOOLS. History of Any Multi-Drug Resistant Organisms: None Reported Past Surgical History: Back Surgery, Cholecystectomy, Orthopedic Surgery Additional Past Surgical History / Comment(s): EGDS, colonoscopy, bronchoscopy, BACK surgeries with TITANIUM PLATES MILTON and CAGES, KIDNEY STONES removed per pt, SPINAL CORD STIMULATOR, ISMAEL KNEE ARTHROSCOPIES, PINKY FINGER RT HAND REATTATCHED Past Anesthesia/Blood Transfusion Reactions: No Reported Reaction Past Psychological History: Anxiety, Depression Additional Psychological History / Comment(s): PT LIVES AT HOME WITH in a 2 story home that has 3 porch steps/7 steps to 2nd floor.. 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 NO SERVICE.. occasionally uses either cane, walker or w/c also has shower chair and raised toilet seat. He does not drive, his can drive. Smoking Status: Current every day smoker Past Alcohol Use History: Daily Additional Past Alcohol Use History / Comment(s): Smokes 2 packs per day; ETOH ABUSE-patient states he has past hx of ETOH but now only drinks occasionally and last drank yesterday-1/2 glass of rum. Past Drug Use History: None Reported Additional Drug Use History / Comment(s): Patient reports that he has not used Marijuana in over 14 months. - Past Family History Father Family Medical History: Diabetes Mellitus Additional Family Medical History / Comment(s): Mother Family Medical History: Dementia, Hyperlipidemia, Hypertension Additional Family Medical History / Comment(s): Mother is living. Medications and Allergies Home Medications Medication Instructions Recorded Confirmed Type traZODone HCL 50 mg PO HS 04/04/17 01/06/18 History Omeprazole [PriLOSEC] 40 mg PO BID #60 capsule. 05/16/17 01/06/18 Rx Gabapentin [Neurontin] 400 mg PO TID 07/18/17 01/06/18 History Magnesium Oxide [Mag-Ox] 200 mg PO DAILY 09/18/17 01/06/18 History Tamsulosin HCl [Flomax] 0.4 mg PO DAILY 09/18/17 01/06/18 History Lipase/Protease/Amylase [[place] Dr 2 cap PO TID-W/MEALS 10/20/17 01/06/18 History 24,000 Units Capsule] Betamethasone Valerate [Luxiq 1%] 1 applic TOPICAL BID 12/11/17 01/06/18 History Diazepam [Valium] 2 mg PO TID PRN 12/11/17 01/06/18 History Ondansetron Odt [Zofran ODT] 4 mg PO Q8HR PRN #10 tab 12/11/17 01/06/18 Rx buPROPion HCL [Wellbutrin XL] 300 mg PO DAILY 12/12/17 01/06/18 History Ibuprofen [Motrin] 600 mg PO Q8HR PRN #30 tab 12/21/17 01/06/18 Rx HYDROcodone/APAP 5-325MG [[place] 1 tab PO Q6HR PRN 3 Days #12 tab 01/02/18 Rx 5-325] Multivitamins, Thera [Multivitamin 1 each PO DAILY@1200 #30 tab 01/02/18 Rx (formulary)] Thiamine [Vitamin B-1] 100 mg PO DAILY@1200 #30 tab 01/02/18 01/06/18 Rx Allergies Allergy/AdvReac Type Severity Reaction Status Date / Time No Known Allergies Allergy Verified 01/06/18 12:19 Physical Exam Vitals: Vital Signs Temp Pulse Pulse Resp BP BP Pulse Ox 01/06/18 08:33 98.0 F 86 18 126/69 100 01/06/18 07:23 99.3 F 56 L 16 130/76 100 01/06/18 05:09 98.3 F 84 18 109/70 100 Intake and Output 01/05/18 01/06/18 01/06/18 22:59 06:59 14:59 Other: Weight 53.977 kg 53.977 kg PHYSICAL EXAMINATION: Patient is lying in the bed comfortably, no acute distress, awake alert and oriented.. HEENT: Normocephalic. Neck is supple. Pupils reactive. Nostrils clear. Oral cavity is moist. Ears reveal no drainage. Neck reveals no JVD, carotid bruits, or thyromegaly. CHEST EXAMINATION: Trachea is central. Symmetrical expansion. Lung cowan clear to auscultation and percussion. CARDIAC: Normal S1, S2 with no gallops. No murmurs ABDOMEN: Soft. Epigastric tenderness. Bowel sounds normal. No organomegaly. No abdominal bruits. Extremities: reveal no edema. No clubbing or cyanosis Neurologically awake, alert, oriented x3 with well-coordinated movements. No focal deficits noted Skin: No rash or skin lesions. Psychiatric: Coperative. Nonsuicidal Musculoskeletal: No joint swelling or deformity. Normal range of motion. Results CBC & Chem 7: 01/06/18 05:40 01/06/18 05:40 Labs: Abnormal Lab Results - Last 24 Hours (Table) 01/06/18 01/06/18 Range/Units 05:40 05:40 WBC 13.2 H (3.8-10.6) k/uL RBC 4.22 L (4.30-5.90) m/uL Hgb 12.4 L (13.0-17.5) gm/dL Hct 37.7 L (39.0-53.0) % Neutrophils # 10.4 H (1.3-7.7) k/uL Monocytes # 1.2 H (0-1.0) k/uL Sodium 133 L (137-145) mmol/L BUN 5 L (9-20) mg/dL Alkaline Phosphatase 143 H (38-126) U/L Albumin 3.4 L (3.5-5.0) g/dL Amylase 294 H (30-110) U/L Lipase 3561 H (23-300) U/L Thrombosis Risk Factor Assmnt - DVT/VTE Prophylaxis DVT/VTE Prophylaxis: Pharmacologic Prophylaxis ordered Assessment and Plan Assessment: Acute on chronic alcoholic pancreatitis Alcohol abuse Alcoholic liver disease GERD History of GI bleed Anxiety and depression Currently everyday smoker Thrombocytosis DVT prophylaxis Plan: Patient will be continued on IV hydration with normal saline and nothing by mouth. Pain management with morphine 5 mg IV every 4 hours as needed.. Continue the home medications. Thiamine and multivitamins. Counseled for alcohol abuse as well as smoking cessation. Further recommendations based on the clinical course. Time with Patient: Greater than 30
[2018-01-07] MEDS: ACETAMINOPHEN TAB 325 MG TAB PO PRN ×2 (00:08→12:42)
[2018-01-07] MEDS: MORPHINE SULFATE 4 MG/ML SYRINGE IV PRN ×4 (02:01→13:57)
[2018-01-07] MEDS: SODIUM CHLORIDE 0.9% 1,000 ML IV SCH ×2 (06:30→12:42)
[2018-01-07 06:58] LABS: Basophils % (A) 0 %; Eosinophils # (A) 0.1 k/uL (0-0.7); Eosinophils % (A) 1 %; HCT 30.9 % (39.0-53.0); HGB 10.2 gm/dL (13.0-17.5); Lymphocytes # (A) 1.1 k/uL (1.0-4.8); Lymphocytes % (A) 16 %; MCH 30.3 pg (25.0-35.0); MCHC 32.9 g/dL (31.0-37.0); MCV 92.1 fL (80.0-100.0); Mean Platelet Volume 7.2; Monocytes # (A) 0.5 k/uL (0-1.0); Monocytes % (A) 7 %; Neutrophils # (A) 5.5 k/uL (1.3-7.7); Neutrophils % (A) 76 %; Platelet Count 300 k/uL (150-450); RBC 3.35 m/uL (4.30-5.90); RDW 15.3 % (11.5-15.5); WBC 7.3 k/uL (3.8-10.6)
[2018-01-07 07:09] LABS: ALT 59 U/L (21-72); AST 59 U/L (17-59); Albumin 2.5 g/dL (3.5-5.0); Alkaline Phosphatase 316 U/L (38-126); Amylase 105 U/L (30-110); Anion Gap 6 mmol/L; Blood Urea Nitrogen 5 mg/dL (9-20); Calcium 8.3 mg/dL (8.4-10.2); Carbon Dioxide 23 mmol/L (22-30); Chloride 104 mmol/L (98-107); Glucose 87 mg/dL (74-99); Lipase 613 U/L (23-300); Potassium 4.6 mmol/L (3.5-5.1); Sodium 133 mmol/L (137-145); Total Bilirubin 0.4 mg/dL (0.2-1.3); Total Protein 5.1 g/dL (6.3-8.2)
[2018-01-07] MEDS: NICOTINE 21MG/24HR PATCH TRANSDERM SCH (08:23)
[2018-01-07 08:33] VITALS: BP 145/88; PULSE 77; RESP 12; TEMP 98.1
[2018-01-07] MEDS ORDERED: THIAMINE 100 MG TAB PO SCH (12:00)
[2018-01-07] MEDS ORDERED: MULTIVITAMINS, THERA 1 EACH TAB PO SCH (12:00)
--- NOTE | 2018-01-07 15:36 | P.DS ---
Providers Date of admission: 01/06/18 06:32 Attending physician: Jamel Diallo Primary care physician: [facility] Course: 47-year-old with history of recurrent pancreatitis from alcohol is him in the past and chronic pancreatitis started having abdominal pain found to have pancreatitis again symptoms started after drinking alcohol this time. Lipase has come down patient is tolerating full liquid diet advance it to soft diet if patient is able to tolerate the diet patient will be discharged home. Ibuprofen will be discontinued as with the concerns of gastritis. PHYSICAL EXAMINATION: GENERAL: The patient is alert and oriented x3, not in any acute distress. Well developed, well nourished. HEENT: Pupils are round and equally reacting to light. EOMI. No scleral icterus. No conjunctival pallor. Normocephalic, atraumatic. No pharyngeal erythema. No thyromegaly. CARDIOVASCULAR: S1 and S2 present. No murmurs, rubs, or gallops. PULMONARY: Chest is clear to auscultation, no wheezing or crackles. ABDOMEN: Soft, nontender, nondistended, normoactive bowel sounds. No palpable organomegaly. MUSCULOSKELETAL: No joint swelling or deformity. EXTREMITIES: No cyanosis, clubbing, or pedal edema. NEUROLOGICAL: Gross neurological examination did not reveal any focal deficits. SKIN: No rashes. Acute on chronic alcoholic pancreatitis Alcohol abuse Alcoholic liver disease GERD History of GI bleed Anxiety and depression Currently everyday smoker Thrombocytosis DVT prophylaxis Patient Condition at Discharge: Stable Plan - Discharge Summary Discharge Rx Participant: No New Discharge Prescriptions: Discontinued Ibuprofen [Motrin] 600 mg PO Q8HR PRN #30 tab PRN Reason: Pain No Action traZODone HCL 50 mg PO HS Omeprazole [PriLOSEC] 40 mg PO BID #60 capsule. Gabapentin [Neurontin] 400 mg PO TID Magnesium Oxide [Mag-Ox] 200 mg PO DAILY Tamsulosin HCl [Flomax] 0.4 mg PO DAILY Lipase/Protease/Amylase [Rebel Belcher 24,000 Units Capsule] 2 cap PO TID-W/MEALS Diazepam [Valium] 2 mg PO TID PRN PRN Reason: Anxiety Betamethasone Valerate [Luxiq 1%] 1 applic TOPICAL BID Ondansetron Odt [Zofran ODT] 4 mg PO Q8HR PRN #10 tab PRN Reason: Nausea buPROPion HCL [Wellbutrin XL] 300 mg PO DAILY Multivitamins, Thera [Multivitamin (formulary)] 1 each PO DAILY@1200 #30 tab Thiamine [Vitamin B-1] 100 mg PO DAILY@1200 #30 tab HYDROcodone/APAP 5-325MG [[place] 5-325] 1 tab PO Q6HR PRN 3 Days #12 tab PRN Reason: Pain Discharge Medication List traZODone HCL 50 mg PO HS 04/04/17 [History] Omeprazole [PriLOSEC] 40 mg PO BID #60 capsule. 05/16/17 [Rx] Gabapentin [Neurontin] 400 mg PO TID 07/18/17 [History] Magnesium Oxide [Mag-Ox] 200 mg PO DAILY 09/18/17 [History] Tamsulosin HCl [Flomax] 0.4 mg PO DAILY 09/18/17 [History] Lipase/Protease/Amylase [Rebel [place] 24,000 Units Capsule] 2 cap PO TID-W/MEALS 07/08 [History] Betamethasone Valerate [Luxiq 1%] 1 applic TOPICAL BID 12/11/17 [History] Diazepam [Valium] 2 mg PO TID PRN 12/11/17 [History] Ondansetron Odt [Zofran ODT] 4 mg PO Q8HR PRN #10 tab 12/11/17 [Rx] buPROPion HCL [Wellbutrin XL] 300 mg PO DAILY 12/12/17 [History] HYDROcodone/APAP 5-325MG [[place] 5-325] 1 tab PO Q6HR PRN 3 Days #12 tab [Rx] Multivitamins, Thera [Multivitamin (formulary)] 1 each PO DAILY@1200 #30 tab [Rx] Thiamine [Vitamin B-1] 100 mg PO DAILY@1200 #30 tab 01/02/18 [Rx] Follow up Appointment(s)/Referral(s): Kerri Quinones MD [Primary Care Provider] - 01/11/18 2:00 pm () Patient Instructions/Handouts: Pancreatitis (DC) Discharge Disposition: HOME SELF-CARE
== END 2018-01-07 15:15 | disposition home or self-care (01) | DRG 439 ==
LOC: EC 05:03 → 5MS5E 06:32 → 3SUR 18:56
PROVIDERS: ADMIT Internal Medicine; ATTEND Internal Medicine
DX: K85.20 Alcohol induced acute pancreatitis without necrosis or infection (principal); N13.39 Other hydronephrosis; K86.0 Alcohol-induced chronic pancreatitis; G62.9 Polyneuropathy, unspecified; K70.9 Alcoholic liver disease, unspecified; F10.10 Alcohol abuse, uncomplicated; E86.0 Dehydration; E78.5 Hyperlipidemia, unspecified; K21.9 Gastro-esophageal reflux disease without esophagitis; F32.9 Major depressive disorder, single episode, unspecified; F41.9 Anxiety disorder, unspecified; N40.0 Benign prostatic hyperplasia without lower urinary tract symptoms; G89.29 Other chronic pain; M54.5 Low back pain; R33.9 Retention of urine, unspecified; Z71.41 Alcohol abuse counseling and surveillance of alcoholic; F17.210 Nicotine dependence, cigarettes, uncomplicated; Z71.6 Tobacco abuse counseling; Z79.899 Other long term (current) drug therapy; Z87.01 Personal history of pneumonia (recurrent); Z90.49 Acquired absence of other specified parts of digestive tract; Z87.442 Personal history of urinary calculi; Z83.3 Family history of diabetes mellitus; Z82.49 Family history of ischemic heart disease and other diseases of the circulatory system; Z82.0 Family history of epilepsy and other diseases of the nervous system; Z83.6 Family history of other diseases of the respiratory system
CPT/HCPCS: 36415; 80053; 80320; 82150; 83690; 85025; 96361; 96374; 96375; 99285

== ENCOUNTER 2018-01-13 09:03 | Emergency (ER) | payer MEDICARE, OTHER ==
[2018-01-13] MEDS ORDERED: SODIUM CHLORIDE 0.9% 2,000 ML IV STA (09:12)
[2018-01-13] MEDS ORDERED: ONDANSETRON 4 MG/2 ML VIAL IVP STA (09:12)
[2018-01-13] MEDS ORDERED: FAMOTIDINE 20 MG/2 ML VIAL IV STA (09:28)
--- NOTE | 2018-01-13 09:31 | ED ---
General Adult HPI - General Chief complaint: Abdominal Pain Stated complaint: Abdominal pain Time Seen by Provider: 01/13/18 09:12 Source: patient, RN notes reviewed Mode of arrival: wheelchair Limitations: no limitations - History of Present Illness Initial comments: Patient is a pleasant 47-year-old male presenting to the emergency Department with complaints of abdominal discomfort. Patient has chronic abdominal pain. Patient admits to continuing to drink alcohol. Patient states he did drink alcohol last night. Patient states his discomfort started acting up again this morning. Patient has had associated nausea and vomiting. patient diarrhea. No fevers. Symptoms are similar to his chronic pancreatitis. - Related Data Home Medications Medication Instructions Recorded Confirmed traZODone HCL 50 mg PO HS 04/04/17 01/06/18 Gabapentin [Neurontin] 400 mg PO TID 07/18/17 01/06/18 Magnesium Oxide [Mag-Ox] 200 mg PO DAILY 09/18/17 01/06/18 Tamsulosin HCl [Flomax] 0.4 mg PO DAILY 09/18/17 01/06/18 Lipase/Protease/Amylase [Rebel [place] 2 cap PO TID-W/MEALS 10/20/17 01/06/18 24,000 Units Capsule] Betamethasone Valerate [Luxiq 1%] 1 applic TOPICAL BID 12/11/17 01/06/18 Diazepam [Valium] 2 mg PO TID PRN 12/11/17 01/06/18 buPROPion HCL [Wellbutrin XL] 300 mg PO DAILY 12/12/17 01/06/18 Previous Rx's Medication Instructions Recorded Omeprazole [PriLOSEC] 40 mg PO BID #60 capsule. 05/16/17 Ondansetron Odt [Zofran ODT] 4 mg PO Q8HR PRN #10 tab 12/11/17 HYDROcodone/APAP 5-325MG [[place] 1 tab PO Q6HR PRN 3 Days #12 tab 01/02/18 5-325] Multivitamins, Thera [Multivitamin 1 each PO DAILY@1200 #30 tab 01/02/18 (formulary)] Thiamine [Vitamin B-1] 100 mg PO DAILY@1200 #30 tab 01/02/18 Allergies Allergy/AdvReac Type Severity Reaction Status Date / Time No Known Allergies Allergy Verified 01/13/18 09:09 Review of Systems ROS Statement: Those systems with pertinent positive or pertinent negative responses have been documented in the HPI. ROS Other: All systems not noted in ROS Statement are negative. Constitutional: Denies: fever Eyes: Denies: eye pain ENT: Denies: ear pain Respiratory: Denies: cough Cardiovascular: Denies: chest pain Endocrine: Denies: fatigue Gastrointestinal: Reports: abdominal pain, nausea, vomiting. Denies: diarrhea, constipation Genitourinary: Denies: dysuria Musculoskeletal: Denies: back pain Skin: Denies: rash Neurological: Denies: weakness Past Medical History Past Medical History: GERD/Reflux, GI Bleed, Hyperlipidemia, Liver Disease, Pneumonia, Prostate Disorder Additional Past Medical History / Comment(s): ETOH ABUSE RECURRANT PANCREATITIS , ALCOHOLIC HEPATITIS, NEUROPATHY BILATERAL FEET SINCE BACK SURGERY, hx of CHRONIC URINARY RETENTION DUE TO BACK PROBLEMS-SELF CATHS, CHRONIC L HYDROURETERONEPHROSIS D/T REFLUX, CHRONIC LOW BACK PAIN (HAS STIMULATOR THAT PT STATES DOES NOT WORK), HEMATEMESIS, CHRONIC LOOSE STOOLS. History of Any Multi-Drug Resistant Organisms: None Reported Past Surgical History: Back Surgery, Cholecystectomy, Orthopedic Surgery Additional Past Surgical History / Comment(s): EGDS, colonoscopy, bronchoscopy, BACK surgeries with TITANIUM PLATES MILTON and CAGES, KIDNEY STONES removed per pt, SPINAL CORD STIMULATOR, ISMAEL KNEE ARTHROSCOPIES, PINKY FINGER RT HAND REATTATCHED Past Anesthesia/Blood Transfusion Reactions: No Reported Reaction Past Psychological History: Anxiety, Depression Smoking Status: Current every day smoker Past Alcohol Use History: Daily Past Drug Use History: None Reported - Past Family History Father Family Medical History: Diabetes Mellitus Additional Family Medical History / Comment(s): Mother Family Medical History: Dementia, Hyperlipidemia, Hypertension Additional Family Medical History / Comment(s): Mother is living. General Exam Limitations: no limitations General appearance: alert, in no apparent distress Head exam: Present: atraumatic Eye exam: Present: normal appearance, PERRL ENT exam: Present: normal oropharynx Neck exam: Present: normal inspection Respiratory exam: Present: normal lung sounds bilaterally Cardiovascular Exam: Present: regular rate, normal rhythm Expanded Peripheral pulses: 2+: Dorsalis Pedis (R), Dorsalis Pedis (L) GI/Abdominal exam: Present: soft, tenderness (Mild epigastric tenderness), normal bowel sounds. Absent: distended, guarding, rebound, rigid, pulsatile mass Extremities exam: Present: normal inspection. Absent: pedal edema, calf tenderness Neurological exam: Present: alert Psychiatric exam: Present: normal affect, normal mood Skin exam: Present: normal color Course Vital Signs 01/13/18 09:07 Temperature 98.5 F Pulse Rate 82 Respiratory 16 Rate Blood Pressure 130/86 O2 Sat by Pulse 98 Oximetry Medical Decision Making - Medical Decision Making Patient reevaluated and resting comfortably in bed. No emesis in the emergency department. Patient does have chronic pancreatitis and elevation of lipase is fairly consistent per patient. Patient is again updated on need to discontinue drinking and is advised to go to rehab again. - Lab Data Result diagrams: 01/13/18 09:33 01/13/18 09:33 Lab Results 01/13/18 01/13/18 Range/Units 09:33 09:33 WBC 10.4 (3.8-10.6) k/uL RBC 3.81 L (4.30-5.90) m/uL Hgb 11.3 L (13.0-17.5) gm/dL Hct 35.1 L (39.0-53.0) % MCV 92.0 (80.0-100.0) fL MCH 29.8 (25.0-35.0) pg MCHC 32.3 (31.0-37.0) g/dL RDW 15.1 (11.5-15.5) % Plt Count 437 (150-450) k/uL Neutrophils % 84 % Lymphocytes % 9 % Monocytes % 5 % Eosinophils % 1 % Basophils % 0 % Neutrophils # 8.7 H (1.3-7.7) k/uL Lymphocytes # 1.0 (1.0-4.8) k/uL Monocytes # 0.5 (0-1.0) k/uL Eosinophils # 0.1 (0-0.7) k/uL Basophils # 0.0 (0-0.2) k/uL Sodium 136 L (137-145) mmol/L Potassium 4.6 (3.5-5.1) mmol/L Chloride 105 (98-107) mmol/L Carbon Dioxide 24 (22-30) mmol/L Anion Gap 7 mmol/L BUN 8 L (9-20) mg/dL Creatinine 0.55 L (0.66-1.25) mg/dL Est GFR (CKD-EPI)AfAm >90 (>60 ml/min/1.73 sqM) Est GFR (CKD-EPI)NonAf >90 (>60 ml/min/1.73 sqM) Glucose 97 (74-99) mg/dL Calcium 8.7 (8.4-10.2) mg/dL Total Bilirubin 0.2 (0.2-1.3) mg/dL AST 13 L (17-59) U/L ALT 24 (21-72) U/L Alkaline Phosphatase 162 H (38-126) U/L Total Protein 5.9 L (6.3-8.2) g/dL Albumin 3.0 L (3.5-5.0) g/dL Amylase 143 H (30-110) U/L Lipase 1857 H (23-300) U/L Serum Alcohol <10 mg/dL - Radiology Data Radiology results: image reviewed (Abdominal x-ray shows no acute abnormality. Postsurgical change.) Disposition Clinical Impression: Alcohol abuse, Chronic pancreatitis Disposition: HOME SELF-CARE Condition: Stable Instructions: Pancreatitis (ED), Chronic Pain (ED), Abuse of Alcohol (ED) Additional Instructions: Discontinue alcohol use. Please follow-up with rehab, list provided. Return for worsening symptoms, not tolerating fluids, or other concerns. Is patient prescribed a controlled substance at d/c from ED?: No Referrals: Kerri Quinones MD [Primary Care Provider] - 1-2 days Time of Disposition: 10:16
[2018-01-13 09:46] LABS: Basophils % (A) 0 %; Eosinophils # (A) 0.1 k/uL (0-0.7); Eosinophils % (A) 1 %; HCT 35.1 % (39.0-53.0); HGB 11.3 gm/dL (13.0-17.5); Lymphocytes % (A) 9 %; MCH 29.8 pg (25.0-35.0); MCHC 32.3 g/dL (31.0-37.0); Mean Platelet Volume 6.7; Monocytes # (A) 0.5 k/uL (0-1.0); Monocytes % (A) 5 %; Neutrophils # (A) 8.7 k/uL (1.3-7.7); Neutrophils % (A) 84 %; Platelet Count 437 k/uL (150-450); RBC 3.81 m/uL (4.30-5.90); RDW 15.1 % (11.5-15.5); WBC 10.4 k/uL (3.8-10.6)
[2018-01-13 09:57] LABS: ALT 24 U/L (21-72); AST 13 U/L (17-59); Alcohol <10 mg/dL; Alkaline Phosphatase 162 U/L (38-126); Amylase 143 U/L (30-110); Anion Gap 7 mmol/L; Blood Urea Nitrogen 8 mg/dL (9-20); Calcium 8.7 mg/dL (8.4-10.2); Carbon Dioxide 24 mmol/L (22-30); Chloride 105 mmol/L (98-107); Glucose 97 mg/dL (74-99); Lipase 1857 U/L (23-300); Potassium 4.6 mmol/L (3.5-5.1); Sodium 136 mmol/L (137-145); Total Bilirubin 0.2 mg/dL (0.2-1.3); Total Protein 5.9 g/dL (6.3-8.2)
--- NOTE | 2018-01-13 10:01 | XR ---
EXAMINATION TYPE: XR abdomen 1V , 2 VIEWS DATE OF EXAM ORDERED: 01/13/2018 HISTORY: Pain. COMPARISON: Previous study dated 11/22/2017. FINDINGS: There is a pain stimulator projecting over the thoracic spine. There has been an interpedi cular fusion at L4, L5 and S1. The lung bases are clear. Within the abdomen, the gallbladder is been removed. The abdominal gas pattern is within normal limit s. There is no evidence of obstruction or free air. No unusual calcifications are seen. IMPRESSION: 1. NO ACUTE INTRA-ABDOMINAL ABNORMALITY. 2. POSTSURGICAL CHANGE.
[2018-01-13] MEDS ORDERED: MORPHINE SULFATE 2 MG/ML SYRINGE IVP STA (10:13)
[2018-01-13] MEDS ORDERED: METOCLOPRAMIDE 5 MG/ML 2 ML VIAL IVP STA (10:13)
[2018-01-13 10:40] VITALS: BP 128/65; PULSE 69; RESP 17; TEMP 97.7
== END 2018-01-13 10:35 | disposition home or self-care (01) ==
LOC: EC 09:03
DX: K86.1 Other chronic pancreatitis (principal); F10.10 Alcohol abuse, uncomplicated; E78.5 Hyperlipidemia, unspecified; N42.9 Disorder of prostate, unspecified; F32.9 Major depressive disorder, single episode, unspecified; F41.9 Anxiety disorder, unspecified; F17.200 Nicotine dependence, unspecified, uncomplicated; Z79.899 Other long term (current) drug therapy; Z90.49 Acquired absence of other specified parts of digestive tract; Z96.653 Presence of artificial knee joint, bilateral
CPT/HCPCS: 36415; 80053; 82150; 83690; 85025; 80320; 74018; 99284; 96374; 96375 ×3; 96361; J2765; J2405; J2270

== ENCOUNTER → 2018-01-14 | Outpatient (CLI) | payer MEDICARE, OTHER ==
--- NOTE | 2018-01-14 11:13 | CT ---
EXAMINATION TYPE: CT abdomen w con DATE OF EXAM: 01/14/2018 COMPARISON: 10/25/2017 HISTORY: 47-year-old male follow-up pancreatic pseudocyst. TECHNIQUE: Contiguous axial scanning of the abdomen following administration of 100 ml Isovue 370 IV contrast. Arterial and portal venous phase imaging was performed. Coronal/sagittal reconstructions p erformed. CT DLP: 545 mGycm Automated exposure control for dose reduction was used. FINDINGS: Heart normal size without pericardial effusion. Lung bases clear without pleural effusion. Mild perihepatic ascites is new. No focal liver lesion seen. Gallbladder surgically absent. There is mass effect onto the lower main portal vein causing slitlike narrowing. Narrowing extends to the portal venous confluence and distal splenic vein. Moderate circumferential wall thickening of the gastroduodenal junction and second portion of the duo denum and peripancreatic fat stranding about the pancreatic head and neck increased from 10/25/2017. A focal fluid deep pancreatic neck measures 1.1 cm versus 6 mm, previously and in the inferior pancreat ic head measuring 9 mm versus 6 mm, previously. Some punctate calcifications posterior pancreatic hea d region are new/increased. No discrete pancreatic mass is identified. Tracking edema and fat stranding continues along the retro peritoneum just inferior to the pancreas. Few borderline to mildly enlarged retroperitoneal lymph nodes measure up to 8 mm aortocaval region an d 1.3 cm left periaortic region versus 1.2 cm, previously. A 9 mm enhancing nodule just below the pancreatic tail, axial image 22 follows enhancement of the spl een suggesting a splenule. Prominent fluid filled small bowel loops with a scattered full thickening. Moderate colonic wall thic kening is noted in the right hemicolon extending to the splenic flexure. No dilated small bowel or fr ee air. Adrenal glands within normal limits. Stable mild left-sided hydronephrosis and corresponding mild uro thelial thickening with a upper pole atresia and probable calyceal dilatation similar to prior. Bones: L4-S1 posterior and interbody fusion changes are demonstrated. IMPRESSION: 1. PERSISTENT INFLAMMATION ABOUT THE PANCREATIC HEAD AND NECK AND TO A LESSER DEGREE ALONG THE PANCRE ATIC BODY. INFLAMMATION SHOW SLIGHT INCREASE FROM 10/25/2017. CORRELATE FOR RESIDUAL OR RECURRENT ACUTE PANCREATITIS. 2. TINY HYPODENSITIES IN THE PANCREATIC HEAD AND NECK MEASURE 9 MM AND 1.1 CM, RESPECTIVELY, VERSUS 6 MM, PREVIOUSLY. SMALL PSEUDOCYSTS ARE CONSIDERED. 3. THE PANCREATIC INFLAMMATION CONTINUES TO HAVE MASS EFFECT CAUSING SLITLIKE NARROWING OF THE PORTAL VENOUS CONFLUENCE. 4. MODERATE WALL THICKENING AT THE GASTRODUODENAL JUNCTION EXTENDING TO THE SECOND PORTION OF THE DUO DENUM ALSO SHOWS INCREASE FROM 10/25/2017. THIS COULD BE REACTIVE INFLAMMATION OR DUODENITIS. 5. POSSIBLE GENERALIZED ILEUS. MODERATE CIRCUMFERENTIAL WALL THICKENING OF THE RIGHT HEMICOLON COULD REPRESENT A CONCURRENT COLITIS. 6. NEW MILD UPPER ABDOMINAL ASCITES. 7. CONTINUED MILD LEFT-SIDED HYDRONEPHROSIS AND UROTHELIAL THICKENING. CORRELATE WITH URINALYSIS AND URINE CYTOLOGY. ATTENTION ON FOLLOW-UP.
== END | disposition home or self-care (01) ==
LOC: RADCTMAIN 08:55
PROVIDERS: ATTEND Student in an Organized Health Care Education/Training Program
DX: K85.90 Acute pancreatitis without necrosis or infection, unspecified (principal); R18.8 Other ascites; K86.3 Pseudocyst of pancreas; K86.89 Other specified diseases of pancreas; K31.89 Other diseases of stomach and duodenum; K52.9 Noninfective gastroenteritis and colitis, unspecified; N13.30 Unspecified hydronephrosis; N36.8 Other specified disorders of urethra; I87.8 Other specified disorders of veins
CPT/HCPCS: 74160; Q9967

== ENCOUNTER 2018-01-16 21:39 | Inpatient (IN) | payer MEDICARE, OTHER ==
--- NOTE | 2018-01-16 22:18 | ED ---
Abdominal Pain HPI - General Chief Complaint: Abdominal Pain Stated Complaint: Chest Pain Time Seen by Provider: 01/16/18 22:02 Source: patient Mode of arrival: wheelchair Limitations: no limitations - History of Present Illness Initial Comments: This patient is a 47-year-old man who presents with abdominal pain, nausea and vomiting. The patient states the pain is diffuse, severe, and he has a hard time characterizing it. He has also had accompanying nausea and vomiting. The patient states that he has not noted any thing that helps the pain and it does seem to be worse if he presses on his abdomen. He notes that he had gone to [facility] today where he had an upper endoscopy and he states that also took a biopsy of his pancreas during the endoscopy. MD Complaint: abdominal pain -: hour(s) Location: diffuse Radiation: none Severity: severe Quality: aching Consistency: constant Improves With: nothing Worsens With: nothing Associated Symptoms: nausea, vomiting - Related Data Home Medications Medication Instructions Recorded Confirmed traZODone HCL 50 mg PO HS 04/04/17 01/17/18 Gabapentin [Neurontin] 400 mg PO TID 07/18/17 01/17/18 Magnesium Oxide [Mag-Ox] 200 mg PO DAILY 09/18/17 01/17/18 Tamsulosin HCl [Flomax] 0.4 mg PO DAILY 09/18/17 01/17/18 Lipase/Protease/Amylase [Rebel [place] 2 cap PO TID-W/MEALS 10/20/17 01/17/18 24,000 Units Capsule] Betamethasone Valerate [Luxiq 1%] 1 applic TOPICAL BID 12/11/17 01/17/18 Diazepam [Valium] 2 mg PO TID PRN 12/11/17 01/17/18 buPROPion HCL [Wellbutrin XL] 300 mg PO DAILY 12/12/17 01/17/18 Multivitamins, Thera [Multivitamin 1 tab PO DAILY@1200 01/17/18 01/17/18 (formulary)] Previous Rx's Medication Instructions Recorded Omeprazole [PriLOSEC] 40 mg PO BID #60 capsule. 05/16/17 Ondansetron Odt [Zofran ODT] 4 mg PO Q8HR PRN #10 tab 12/11/17 HYDROcodone/APAP 5-325MG [[place] 1 tab PO Q6HR PRN 3 Days #12 tab 01/02/18 5-325] Thiamine [Vitamin B-1] 100 mg PO DAILY@1200 #30 tab 01/02/18 Allergies Allergy/AdvReac Type Severity Reaction Status Date / Time No Known Allergies Allergy Verified 01/17/18 09:27 Review of Systems ROS Statement: Those systems with pertinent positive or pertinent negative responses have been documented in the HPI. ROS Other: All systems not noted in ROS Statement are negative. Constitutional: Denies: fever, chills Respiratory: Denies: cough, dyspnea Cardiovascular: Denies: chest pain, palpitations Gastrointestinal: Reports: abdominal pain, nausea, vomiting. Denies: diarrhea, melena, hematochezia Genitourinary: Denies: dysuria, hematuria Musculoskeletal: Denies: back pain Skin: Denies: rash Neurological: Denies: headache Past Medical History Past Medical History: GERD/Reflux, GI Bleed, Hyperlipidemia, Liver Disease, Pneumonia, Prostate Disorder Additional Past Medical History / Comment(s): ETOH ABUSE RECURRANT PANCREATITIS , ALCOHOLIC HEPATITIS, NEUROPATHY BILATERAL FEET SINCE BACK SURGERY, hx of CHRONIC URINARY RETENTION DUE TO BACK PROBLEMS-SELF CATHS, CHRONIC L HYDROURETERONEPHROSIS D/T REFLUX, CHRONIC LOW BACK PAIN (HAS STIMULATOR THAT PT STATES DOES NOT WORK), HEMATEMESIS, CHRONIC LOOSE STOOLS. History of Any Multi-Drug Resistant Organisms: None Reported Past Surgical History: Back Surgery, Cholecystectomy, Orthopedic Surgery Additional Past Surgical History / Comment(s): EGDS, colonoscopy, bronchoscopy, BACK surgeries with TITANIUM PLATES MILTON and CAGES, KIDNEY STONES removed per pt, SPINAL CORD STIMULATOR, ISMAEL KNEE ARTHROSCOPIES, PINKY FINGER RT HAND REATTATCHED Past Anesthesia/Blood Transfusion Reactions: No Reported Reaction Past Psychological History: Anxiety, Depression Smoking Status: Current every day smoker Past Alcohol Use History: Daily Past Drug Use History: None Reported - Past Family History Father Family Medical History: Diabetes Mellitus Additional Family Medical History / Comment(s): Mother Family Medical History: Dementia, Hyperlipidemia, Hypertension Additional Family Medical History / Comment(s): Mother is living. General Exam Limitations: no limitations General appearance: alert, in no apparent distress Head exam: Present: atraumatic, normocephalic Eye exam: Present: normal appearance. Absent: scleral icterus, conjunctival injection ENT exam: Present: normal oropharynx Neck exam: Present: normal inspection Respiratory exam: Present: normal lung sounds bilaterally. Absent: respiratory distress, wheezes, rales, rhonchi, stridor Cardiovascular Exam: Present: regular rate, normal rhythm, normal heart sounds. Absent: systolic murmur, diastolic murmur, rubs, gallop GI/Abdominal exam: Present: soft, tenderness (diffuse), normal bowel sounds. Absent: distended, guarding, rebound, rigid, mass, pulsatile mass, hernia Extremities exam: Present: normal inspection, normal capillary refill. Absent: pedal edema, calf tenderness Back exam: Present: normal inspection. Absent: CVA tenderness (R), CVA tenderness (L) Neurological exam: Present: alert Skin exam: Present: warm, dry, intact, normal color. Absent: rash Course Vital Signs 01/16/18 01/17/18 21:57 03:56 Temperature 98.8 F 98.7 F Pulse Rate 94 98 Respiratory 20 17 Rate Blood Pressure 137/88 142/86 O2 Sat by Pulse 100 97 Oximetry Medical Decision Making - Lab Data Result diagrams: 01/16/18 23:26 01/16/18 23:26 Lab Results 01/16/18 01/16/18 Range/Units 23:26 23:26 WBC 13.9 H (3.8-10.6) k/uL RBC 3.54 L (4.30-5.90) m/uL Hgb 10.6 L (13.0-17.5) gm/dL Hct 32.7 L (39.0-53.0) % MCV 92.6 (80.0-100.0) fL MCH 30.0 (25.0-35.0) pg MCHC 32.4 (31.0-37.0) g/dL RDW 14.9 (11.5-15.5) % Plt Count 335 (150-450) k/uL Neutrophils % 91 % Lymphocytes % 4 % Monocytes % 4 % Eosinophils % 1 % Basophils % 0 % Neutrophils # 12.6 H (1.3-7.7) k/uL Lymphocytes # 0.6 L (1.0-4.8) k/uL Monocytes # 0.6 (0-1.0) k/uL Eosinophils # 0.1 (0-0.7) k/uL Basophils # 0.0 (0-0.2) k/uL Sodium 134 L (137-145) mmol/L Potassium 4.1 (3.5-5.1) mmol/L Chloride 99 (98-107) mmol/L Carbon Dioxide 25 (22-30) mmol/L Anion Gap 10 mmol/L BUN 14 (9-20) mg/dL Creatinine 0.61 L (0.66-1.25) mg/dL Est GFR (CKD-EPI)AfAm >90 (>60 ml/min/1.73 sqM) Est GFR (CKD-EPI)NonAf >90 (>60 ml/min/1.73 sqM) Glucose 134 H (74-99) mg/dL Calcium 8.6 (8.4-10.2) mg/dL Total Bilirubin 0.3 (0.2-1.3) mg/dL AST 11 L (17-59) U/L ALT 20 L (21-72) U/L Alkaline Phosphatase 146 H (38-126) U/L Total Protein 6.0 L (6.3-8.2) g/dL Albumin 3.0 L (3.5-5.0) g/dL Amylase 248 H (30-110) U/L Lipase 2511 H (23-300) U/L - EKG Data -: EKG Interpreted by Or EKG shows normal: sinus rhythm, axis (Normal), intervals (Normal), QRS complexes (Normal), ST-T waves (Normal) Rate: normal (Rate 83 bpm) Interpretation: normal EKG Disposition Clinical Impression: Abdominal pain, Chronic pancreatitis Disposition: ADMITTED IP TO THIS [facility] Condition: Fair
--- NOTE | 2018-01-16 23:31 | XR ---
EXAMINATION TYPE: XR KUB DATE OF EXAM: 01/16/2018 COMPARISON: 01/13/2018 HISTORY: Abdominal pain TECHNIQUE: 2 views FINDINGS: There is no sign of intestinal obstruction or pneumoperitoneum. Fecal pattern is normal. Jo ng bases are clear. There is a neurostimulator over the left side of the pelvis. Lead tips over the l ower thoracic spine. There are no pathologic calcifications over the kidneys. IMPRESSION: Nonacute abdomen. No change.
[2018-01-16 23:35] LABS: Basophils % (A) 0 %; Eosinophils # (A) 0.1 k/uL (0-0.7); Eosinophils % (A) 1 %; HCT 32.7 % (39.0-53.0); HGB 10.6 gm/dL (13.0-17.5); Lymphocytes # (A) 0.6 k/uL (1.0-4.8); Lymphocytes % (A) 4 %; MCHC 32.4 g/dL (31.0-37.0); MCV 92.6 fL (80.0-100.0); Monocytes # (A) 0.6 k/uL (0-1.0); Monocytes % (A) 4 %; Neutrophils # (A) 12.6 k/uL (1.3-7.7); Neutrophils % (A) 91 %; Platelet Count 335 k/uL (150-450); RBC 3.54 m/uL (4.30-5.90); RDW 14.9 % (11.5-15.5); WBC 13.9 k/uL (3.8-10.6)
[2018-01-16 23:44] LABS: ALT 20 U/L (21-72); AST 11 U/L (17-59); Alkaline Phosphatase 146 U/L (38-126); Amylase 248 U/L (30-110); Anion Gap 10 mmol/L; Blood Urea Nitrogen 14 mg/dL (9-20); Calcium 8.6 mg/dL (8.4-10.2); Carbon Dioxide 25 mmol/L (22-30); Chloride 99 mmol/L (98-107); Glucose 134 mg/dL (74-99); Potassium 4.1 mmol/L (3.5-5.1); Sodium 134 mmol/L (137-145); Total Bilirubin 0.3 mg/dL (0.2-1.3)
[2018-01-16] MEDS ORDERED: ONDANSETRON 4 MG/2 ML VIAL IVP STA (23:47)
[2018-01-16 23:53] LABS: Lipase 2511 U/L (23-300)
[2018-01-17] MEDS ORDERED: MORPHINE SULFATE 4 MG/ML SYRINGE IV STA (00:29)
[2018-01-17] MEDS ORDERED: SODIUM CHLORIDE 0.9% 1,000 ML IV ONE (00:29)
[2018-01-17] MEDS ORDERED: NALOXONE 0.4 MG/ML 1 ML VIAL IV PRN (02:48)
[2018-01-17] MEDS ORDERED: DIAZEPAM 2 MG TAB PO PRN (02:50)
[2018-01-17] MEDS ORDERED: ONDANSETRON 4 MG/2 ML VIAL IVP STA (02:51)
[2018-01-17] MEDS: HYDROcodone/APAP 5-325MG 1 EACH TAB PO PRN ×2 (03:38→12:27)
[2018-01-17 04:02] VITALS: BMI 20.8
[2018-01-17] MEDS: SODIUM CHLORIDE 0.9% 1,000 ML IV SCH ×3 (04:07→20:05)
[2018-01-17] MEDS: LIPASE 5,000/PROTEASE 17,000/AMYLASE 24,000 PO SCH ×3 (08:29→14:43)
[2018-01-17] MEDS: THIAMINE 100 MG TAB PO SCH (08:30)
[2018-01-17] MEDS: PANTOPRAZOLE 40 MG TABLET PO SCH ×2 (08:30→16:51)
[2018-01-17] MEDS: TAMSULOSIN 0.4 MG CAP.ER.24H PO SCH (08:30)
[2018-01-17] MEDS: buPROPion XL 300 MG TAB.ER.24H PO SCH (08:30)
[2018-01-17] MEDS: MAGNESIUM OXIDE 400 MG TAB PO SCH (08:30)
[2018-01-17] MEDS: GABAPENTIN 400 MG CAP PO SCH ×3 (08:30→20:38)
[2018-01-17] MEDS ORDERED: PROCHLORPERAZINE 5 MG TAB PO PRN (11:07)
[2018-01-17] MEDS ORDERED: chlorproMAZINE 25 MG TAB PO PRN (11:17)
[2018-01-17] MEDS ORDERED: IOPAMIDOL-300 CONTRAST 30 ML VIAL (ORAL USE) PO PRN (11:20)
--- NOTE | 2018-01-17 11:24 | P.HPIM ---
History of Present Illness 47-year-old well-known patient to me had multiple hospital admission for pancreatitis came in with Complaints of diffuse abdominal pain sharp in nature about 8/10 in severity patient is found to have elevated pancreatic enzymes, patient had a biopsy of pancreas yesterday at [facility] after which patient started having nausea and vomiting. Diffuse abdominal pain. Patient had alcoholic pancreatitis multiple hospitalizations secondary to that. Review of Systems REVIEW OF SYSTEMS: CONSTITUTIONAL: No fever, no malaise, no fatigue. HEENT: No recent visual problems or hearing problems. Denied any sore throat. CARDIOVASCULAR: No chest pain, orthopnea, PND, no palpitations, no syncope. PULMONARY: No shortness of breath, no cough, no hemoptysis. GASTROINTESTINAL: As mentioned in HPI NEUROLOGICAL: No headaches, no weakness, no numbness. HEMATOLOGICAL: Denies any bleeding or petechiae. GENITOURINARY: Denies any burning micturition, frequency, or urgency. MUSCULOSKELETAL/RHEUMATOLOGICAL: Denies any joint pain, swelling, or any muscle pain. ENDOCRINE: Denies any polyuria or polydipsia. The rest of the 14-point review of systems is negative. Past Medical History Past Medical History: GERD/Reflux, GI Bleed, Hyperlipidemia, Liver Disease, Pneumonia, Prostate Disorder Additional Past Medical History / Comment(s): ETOH ABUSE RECURRANT PANCREATITIS , ALCOHOLIC HEPATITIS, NEUROPATHY BILATERAL FEET SINCE BACK SURGERY, hx of CHRONIC URINARY RETENTION DUE TO BACK PROBLEMS-SELF CATHS, CHRONIC L HYDROURETERONEPHROSIS D/T REFLUX, CHRONIC LOW BACK PAIN (HAS STIMULATOR THAT PT STATES DOES NOT WORK), HEMATEMESIS, CHRONIC LOOSE STOOLS. History of Any Multi-Drug Resistant Organisms: None Reported Past Surgical History: Back Surgery, Cholecystectomy, Orthopedic Surgery Additional Past Surgical History / Comment(s): EGDS, colonoscopy, bronchoscopy, BACK surgeries with TITANIUM PLATES MILTON and CAGES, KIDNEY STONES removed per pt, SPINAL CORD STIMULATOR, ISMAEL KNEE ARTHROSCOPIES, PINKY FINGER RT HAND REATTATCHED Past Anesthesia/Blood Transfusion Reactions: No Reported Reaction Past Psychological History: Anxiety, Depression Smoking Status: Current every day smoker Past Alcohol Use History: Daily Past Drug Use History: None Reported - Past Family History Father Family Medical History: Diabetes Mellitus Additional Family Medical History / Comment(s): Mother Family Medical History: Dementia, Hyperlipidemia, Hypertension Additional Family Medical History / Comment(s): Mother is living. Medications and Allergies Home Medications Medication Instructions Recorded Confirmed Type traZODone HCL 50 mg PO HS 04/04/17 01/17/18 History Omeprazole [PriLOSEC] 40 mg PO BID #60 capsule. 05/16/17 01/17/18 Rx Gabapentin [Neurontin] 400 mg PO TID 07/18/17 01/17/18 History Magnesium Oxide [Mag-Ox] 200 mg PO DAILY 09/18/17 01/17/18 History Tamsulosin HCl [Flomax] 0.4 mg PO DAILY 09/18/17 01/17/18 History Lipase/Protease/Amylase [Creon 2 cap PO TID-W/MEALS 10/20/17 01/17/18 History 24,000 Units Capsule] Betamethasone Valerate [Luxiq 1%] 1 applic TOPICAL BID 12/11/17 01/17/18 History Diazepam [Valium] 2 mg PO TID PRN 12/11/17 01/17/18 History Ondansetron Odt [Zofran ODT] 4 mg PO Q8HR PRN #10 tab 12/11/17 01/17/18 Rx buPROPion HCL [Wellbutrin XL] 300 mg PO DAILY 12/12/17 01/17/18 History HYDROcodone/APAP 5-325MG [[place] 1 tab PO Q6HR PRN 3 Days #12 tab 01/02/18 Rx 5-325] Thiamine [Vitamin B-1] 100 mg PO DAILY@1200 #30 tab 01/02/18 01/17/18 Rx Multivitamins, Thera [Multivitamin 1 tab PO DAILY@1200 01/17/18 01/17/18 History (formulary)] Allergies Allergy/AdvReac Type Severity Reaction Status Date / Time No Known Allergies Allergy Verified 01/17/18 09:27 Physical Exam Vitals: Vital Signs Temp Pulse Pulse Resp BP BP Pulse Ox 01/17/18 07:00 98.6 F 94 18 117/78 98 01/17/18 04:31 17 01/17/18 03:56 98.7 F 98 17 142/86 97 01/16/18 21:57 98.8 F 94 20 137/88 100 Intake and Output 01/16/18 01/17/18 01/17/18 22:59 06:59 14:59 Intake Total 0 Balance 0 Intake: Oral 0 Other: Voiding Method Urinal # Voids 0 Weight 50.802 kg 58.5 kg 58.5 kg PHYSICAL EXAMINATION: GENERAL: The patient is alert and oriented x3, not in any acute distress. Well developed, well nourished. HEENT: Pupils are round and equally reacting to light. EOMI. No scleral icterus. No conjunctival pallor. Normocephalic, atraumatic. No pharyngeal erythema. No thyromegaly. CARDIOVASCULAR: S1 and S2 present. No murmurs, rubs, or gallops. PULMONARY: Chest is clear to auscultation, no wheezing or crackles. ABDOMEN: Soft diffuse tenderness no rebound or rigidity. MUSCULOSKELETAL: No joint swelling or deformity. EXTREMITIES: No cyanosis, clubbing, or pedal edema. NEUROLOGICAL: Gross neurological examination did not reveal any focal deficits. SKIN: No rashes. Results CBC & Chem 7: 01/16/18 23:26 01/16/18 23:26 Labs: Abnormal Lab Results - Last 24 Hours (Table) 01/16/18 01/16/18 Range/Units 23:26 23:26 WBC 13.9 H (3.8-10.6) k/uL RBC 3.54 L (4.30-5.90) m/uL Hgb 10.6 L (13.0-17.5) gm/dL Hct 32.7 L (39.0-53.0) % Neutrophils # 12.6 H (1.3-7.7) k/uL Lymphocytes # 0.6 L (1.0-4.8) k/uL Sodium 134 L (137-145) mmol/L Creatinine 0.61 L (0.66-1.25) mg/dL Glucose 134 H (74-99) mg/dL AST 11 L (17-59) U/L ALT 20 L (21-72) U/L Alkaline Phosphatase 146 H (38-126) U/L Total Protein 6.0 L (6.3-8.2) g/dL Albumin 3.0 L (3.5-5.0) g/dL Amylase 248 H (30-110) U/L Lipase 2511 H (23-300) U/L Thrombosis Risk Factor Assmnt - Choose All That Apply Each Factor Represents 1 point: Age 41-60 years Thrombosis Risk Factor Assessment Total Risk Factor Score: 1 Thrombosis Risk Factor Assessment Level: Low Risk Assessment and Plan Plan: -Possible pancreatitis: Lipase elevation can be from his recent the biopsy anyways patient will be treated like pancreatitis with IV fluids because of the dysuria diffuse abdominal pain and recent pancreatic biopsy according to the CAT scan of the abdomen, gastroneurology will be consulted. Patient will remain nothing by mouth except medications. -Gastric esophageal reflux disease -Anxiety and depression -hyperlipidemia -Benign prostatic atrophy -Chronic pancreatitis for which patient is on pancreatic enzyme supplementation which will be continued
[2018-01-17 12:52] LABS: Amorphous Sediment,Urine Rare /hpf; Appearance,Urine Cloudy (Clear); Bacteria,Urine Occasional /hpf; Bilirubin,Urine Negative (Negative); Blood,Urine Negative (Negative); Budding Yeast,Urine Many /hpf; Color,Urine Yellow; Glucose,Urine (UA) Negative (Negative); Hyaline Casts,Urine 12 /lpf (0-2); Hyphae Yeast, Urine Rare /hpf; Ketones,Urine Negative (Negative); Leukocyte Esterase,Urine Small (Negative); Mucus,Urine Occasional /hpf; Nitrite,Urine Negative (Negative); PH, Urine 5.5 (5.0-8.0); Protein,Urine 1+ (Negative); RBC,Urine 19 /hpf (0-5); Specific Gravity,Urine 1.017 (1.001-1.035); Urobilinogen,Urine <2.0 mg/dL (<2.0); WBC,Urine 12 /hpf (0-5); White Blood Cell Casts,Urine 6 /lpf (0)
[2018-01-17] MEDS: ONDANSETRON 4 MG/2 ML VIAL IVP PRN ×2 (14:47→20:40)
[2018-01-17] MEDS: MORPHINE SULFATE 4 MG/ML SYRINGE IVP PRN ×2 (16:08→19:58)
--- NOTE | 2018-01-17 19:35 | P.CONS ---
History of Present Illness - Reason for Consult Consult date: 01/17/18 Pancreatitis Requesting physician: Jamel Diallo - Chief Complaint Abdominal pain - History of Present Illness The patient is a 47-year-old male with past medical history significant for alcohol abuse with multiple prior hospitalizations for pancreatitis and HEPATITIS who presents to the hospital with complaints of abdominal pain. Per the patient D pain was diffuse across his abdomen, sharp in nature and severe. The patient reports that the pain started after recent visit to [facility] yesterday where he was following up with the advanced endoscopy team for endoscopic ultrasound and fluid aspiration of pancreatic cysts. The patient subsequently developed the abdominal pain after discharge. He reports multiple episodes of nausea and vomiting with production of non-bilious and non-bloody vomitus. He denies any change in bowel habits, hematochezia or melena. He denies any fevers or chills. He reports that he was a heavy drinker for over 20 years has been sober over the past 2 months. On presentation he was found to have an amylase of 248 and a lipase of 2511. Total bilirubin 0.3, alkaline phosphatase 146, AST 11, ALT 20 on presentation. Currently he is lying in bed reporting that oral pain medications are not sufficient and asking for IV medications. Review of Systems Constitutional: No recent weight loss however patient reports being unable to put on weight, fevers, chills or fatigue Eyes: No change in vision, double vision, pain in her eyes Ears: No change in hearing or new onset tinnitus Nose: No congestion or discharge reported Mouth: No thrush or lesions reported Lungs: No cough, hemoptysis, wheezing or shortness of breath reported Gastrointestinal: As per history of present illness Cardiac: No shortness of breath, chest pain, orthopnea Extremities: No lower extremity edema reported excellent Skin: No new rashes or lesions Neuro: No new confusion, memory problems, focal deficits Past Medical History Past Medical History: GERD/Reflux, GI Bleed, Hyperlipidemia, Liver Disease, Pneumonia, Prostate Disorder Additional Past Medical History / Comment(s): ETOH ABUSE RECURRANT PANCREATITIS , ALCOHOLIC HEPATITIS, NEUROPATHY BILATERAL FEET SINCE BACK SURGERY, hx of CHRONIC URINARY RETENTION DUE TO BACK PROBLEMS-SELF CATHS, CHRONIC L HYDROURETERONEPHROSIS D/T REFLUX, CHRONIC LOW BACK PAIN (HAS STIMULATOR THAT PT STATES DOES NOT WORK), HEMATEMESIS, CHRONIC LOOSE STOOLS. History of Any Multi-Drug Resistant Organisms: None Reported Past Surgical History: Back Surgery, Cholecystectomy, Orthopedic Surgery Additional Past Surgical History / Comment(s): EGDS, colonoscopy, bronchoscopy, BACK surgeries with TITANIUM PLATES MILTON and CAGES, KIDNEY STONES removed per pt, SPINAL CORD STIMULATOR, ISMAEL KNEE ARTHROSCOPIES, PINKY FINGER RT HAND REATTATCHED Past Anesthesia/Blood Transfusion Reactions: No Reported Reaction Past Psychological History: Anxiety, Depression Smoking Status: Current every day smoker Past Alcohol Use History: Daily Past Drug Use History: None Reported - Past Family History Father Family Medical History: Diabetes Mellitus Additional Family Medical History / Comment(s): Mother Family Medical History: Dementia, Hyperlipidemia, Hypertension Additional Family Medical History / Comment(s): Mother is living. Medications and Allergies Home Medications Medication Instructions Recorded Confirmed Type traZODone HCL 50 mg PO HS 04/04/17 01/17/18 History Omeprazole [PriLOSEC] 40 mg PO BID #60 capsule. 05/16/17 01/17/18 Rx Gabapentin [Neurontin] 400 mg PO TID 07/18/17 01/17/18 History Magnesium Oxide [Mag-Ox] 200 mg PO DAILY 09/18/17 01/17/18 History Tamsulosin HCl [Flomax] 0.4 mg PO DAILY 09/18/17 01/17/18 History Lipase/Protease/Amylase [Creon 2 cap PO TID-W/MEALS 10/20/17 01/17/18 History 24,000 Units Capsule] Betamethasone Valerate [Luxiq 1%] 1 applic TOPICAL BID 12/11/17 01/17/18 History Diazepam [Valium] 2 mg PO TID PRN 12/11/17 01/17/18 History Ondansetron Odt [Zofran ODT] 4 mg PO Q8HR PRN #10 tab 12/11/17 01/17/18 Rx buPROPion HCL [Wellbutrin XL] 300 mg PO DAILY 12/12/17 01/17/18 History HYDROcodone/APAP 5-325MG [[place] 1 tab PO Q6HR PRN 3 Days #12 tab 01/02/18 Rx 5-325] Thiamine [Vitamin B-1] 100 mg PO DAILY@1200 #30 tab 01/02/18 01/17/18 Rx Multivitamins, Thera [Multivitamin 1 tab PO DAILY@1200 01/17/18 01/17/18 History (formulary)] Allergies Allergy/AdvReac Type Severity Reaction Status Date / Time No Known Allergies Allergy Verified 01/17/18 09:27 Physical Exam Vitals: Vital Signs Temp Pulse Pulse Resp BP BP BP 01/17/18 15:35 98.3 F 83 16 155/87 01/17/18 07:00 98.6 F 94 18 117/78 01/17/18 04:31 17 01/17/18 03:56 98.7 F 98 17 142/86 01/16/18 21:57 98.8 F 94 20 137/88 Pulse Ox 01/17/18 15:35 100 01/17/18 07:00 98 01/17/18 04:31 01/17/18 03:56 97 01/16/18 21:57 100 Intake and Output 01/17/18 01/17/18 01/17/18 06:59 14:59 22:59 Intake Total 0 1000 Output Total 750 Balance 0 250 Intake: IV 1000 Sodium Chloride 0.9% 1, 1000 000 ml @ 125 mls/hr IV . Q8H [facility] Rx#:[id number] Oral 0 Output: Urine 750 Straight 750 Other: Voiding Method Urinal # Voids 0 3 Weight 58.5 kg 58.5 kg Constitutional: Lying in bed, no apparent distress but reports abdominal pain Eyes: No scleral icterus, conjunctival injection Ears: Symmetric, no discharge Nose: No discharge noted Mouth: Moist mucous membranes, no oral lesions appreciated Lungs: Clear, no wheezing appreciated, no respiratory distress Gastrointestinal: Abdomen soft, nondistended, with no guarding or rigidity but diffusely tender Cardiac: Regular rate and rhythm Extremities: No lower extremity edema or rashes noted Skin: No new rashes or lesions, significant for multiple tattoos on arms and chest Neuro: Awake alert and oriented 3 with no focal deficits Results CBC & Chem 7: 01/16/18 23:26 01/16/18 23:26 Labs: Abnormal Lab Results - Last 24 Hours (Table) 01/16/18 01/16/18 01/17/18 Range/Units 23:26 23:26 12:20 WBC 13.9 H (3.8-10.6) k/uL RBC 3.54 L (4.30-5.90) m/uL Hgb 10.6 L (13.0-17.5) gm/dL Hct 32.7 L (39.0-53.0) % Neutrophils # 12.6 H (1.3-7.7) k/uL Lymphocytes # 0.6 L (1.0-4.8) k/uL Sodium 134 L (137-145) mmol/L Creatinine 0.61 L (0.66-1.25) mg/dL Glucose 134 H (74-99) mg/dL AST 11 L (17-59) U/L ALT 20 L (21-72) U/L Alkaline Phosphatase 146 H (38-126) U/L Total Protein 6.0 L (6.3-8.2) g/dL Albumin 3.0 L (3.5-5.0) g/dL Amylase 248 H (30-110) U/L Lipase 2511 H (23-300) U/L Urine Protein 1+ H (Negative) Ur Leukocyte Esterase Small H (Negative) Urine RBC 19 H (0-5) /hpf Urine WBC 12 H (0-5) /hpf Amorphous Sediment Rare H (None) /hpf Urine Bacteria Occasional H (None) /hpf Hyaline Casts 12 H (0-2) /lpf Urine Mucus Occasional H (None) /hpf Urine Yeast (Budding) Many H (None) /hpf Abdominal x-ray: report reviewed (Nonacute abdomen on x-ray) Assessment and Plan (1) Acute on chronic pancreatitis Narrative/Plan: Patient presenting with acute on chronic pancreatitis with typical abdominal pain and elevation in lipase of 2511 on presentation. The patient reports that this happened after endoscopic evaluation with EUS at [facility] for aspiration of pancreatic cysts and evaluation of pancreas. Current Visit: No Status: Acute Code(s): K85.90 - ACUTE PANCREATITIS WITHOUT NECROSIS OR INFECTION, UNSP; K86.1 - OTHER CHRONIC PANCREATITIS SNOMED Code(s): 025071677 (2) Abdominal pain Narrative/Plan: Secondary to above. Current Visit: Yes Status: Acute Code(s): R10.9 - UNSPECIFIED ABDOMINAL PAIN SNOMED Code(s): 30535482 (3) Chronic pancreatitis Narrative/Plan: Likely secondary to long-standing history of alcohol abuse. Currently the patient is reporting being sober for the past 2 months. Current Visit: Yes Status: Acute Code(s): K86.1 - OTHER CHRONIC PANCREATITIS SNOMED Code(s): 081446370 Plan: Supportive care Nothing by mouth, with plan to advance diet when patient reports the pain in his abdomen is improved and he is asking to be fed. The patient has gone 48 hours without eating would recommend nasogastric tube for feeding. Fluid hydration, will start lactated Ringer's at 200 mL per hour with plan to cut back after the first 24 hours. Monitor for signs of acute organ failure Continue alcohol abstinence Pain control Patient will need to follow up with [facility] for results of recent EUS guided biopsy Thank you for allowing us to participate in the care of this patient we will continue to follow
[2018-01-17] MEDS ORDERED: traZODone HCL 50 MG TAB PO SCH (21:00)
[2018-01-17] MEDS: LACTATED RINGERS 1,000 ML IV SCH (21:13)
[2018-01-18] MEDS: MORPHINE SULFATE 4 MG/ML SYRINGE IVP PRN ×4 (00:57→16:47)
[2018-01-18] MEDS: LACTATED RINGERS 1,000 ML IV SCH ×2 (02:58→08:17)
[2018-01-18] MEDS: ONDANSETRON 4 MG/2 ML VIAL IVP PRN (06:13)
[2018-01-18] MEDS: CREON 24000 UNIT PO SCH ×3 (08:18→15:40)
[2018-01-18] MEDS: THIAMINE 100 MG TAB PO SCH (08:20)
[2018-01-18] MEDS: MAGNESIUM OXIDE 400 MG TAB PO SCH (08:20)
[2018-01-18] MEDS: GABAPENTIN 400 MG CAP PO SCH ×2 (08:20→16:47)
[2018-01-18] MEDS: TAMSULOSIN 0.4 MG CAP.ER.24H PO SCH (08:20)
[2018-01-18] MEDS: buPROPion XL 300 MG TAB.ER.24H PO SCH (08:20)
[2018-01-18] MEDS: PANTOPRAZOLE 40 MG TABLET PO SCH ×2 (08:20→16:47)
[2018-01-18 08:23] LABS: ALT 35 U/L (21-72); AST 58 U/L (17-59); Albumin 2.1 g/dL (3.5-5.0); Alkaline Phosphatase 187 U/L (38-126); Anion Gap 4 mmol/L; Blood Urea Nitrogen 15 mg/dL (9-20); Calcium 7.8 mg/dL (8.4-10.2); Carbon Dioxide 27 mmol/L (22-30); Chloride 104 mmol/L (98-107); Glucose 77 mg/dL (74-99); Lipase 277 U/L (23-300); Potassium 3.4 mmol/L (3.5-5.1); Sodium 135 mmol/L (137-145); Total Bilirubin 0.3 mg/dL (0.2-1.3); Total Protein 4.5 g/dL (6.3-8.2)
[2018-01-18 08:40] LABS: Basophils % (A) 0 %; Eosinophils # (A) 0.1 k/uL (0-0.7); Eosinophils % (A) 1 %; HCT 27.8 % (39.0-53.0); Lymphocytes # (A) 0.6 k/uL (1.0-4.8); Lymphocytes % (A) 8 %; MCH 30.5 pg (25.0-35.0); MCHC 31.9 g/dL (31.0-37.0); MCV 95.5 fL (80.0-100.0); Mean Platelet Volume 7.3; Monocytes # (A) 0.4 k/uL (0-1.0); Monocytes % (A) 5 %; Neutrophils # (A) 6.5 k/uL (1.3-7.7); Neutrophils % (A) 85 %; Platelet Count 232 k/uL (150-450); RBC 2.92 m/uL (4.30-5.90); RDW 14.8 % (11.5-15.5); WBC 7.7 k/uL (3.8-10.6)
[2018-01-18 08:42] LABS: HGB 8.9 gm/dL (13.0-17.5)
[2018-01-18] MEDS ORDERED: LACTATED RINGERS 1,000 ML IV SCH (13:00)
[2018-01-18 15:50] VITALS: BP 100/56; PULSE 91; RESP 16; TEMP 98.3
--- NOTE | 2018-01-18 19:38 | P.PN ---
Subjective Progress Note Date: 01/18/18 Principal diagnosis: Acute on chronic pancreatitis Patient feeling much better today. No abdominal pain at this time. He tolerated diet and is asking for discharge. Objective - Vital Signs Vital signs: Vital Signs Temp 98.3 F 01/18/18 15:00 Pulse 91 01/18/18 15:00 Resp 16 01/18/18 15:00 BP 100/56 01/18/18 15:00 Pulse Ox 100 01/18/18 15:00 Intake & Output 01/18/18 01/18/18 01/19/18 06:59 18:59 06:59 Intake Total 1720 Balance 1720 Intake: IV 1400 Lactated Ringers 1,000 ml 1400 @ 175 mls/hr IV .[id number] [facility] Rx#:[id number] Oral 320 Other: # Voids 3 - Exam On physical examination, patient appears comfortable in no apparent distress. HEAD: Normocephalic, atraumatic. EYES: No scleral icterus. No conjunctival injection. MOUTH: No lesions, tongue midline. NECK: Trachea midline, no gross abnormalities. CHEST: Clear to auscultation with no wheezing or rhonchi appreciated. HEART: Regular rate and rhythm. ABDOMEN: Soft, obese. Bowel sounds are positive. No organomegaly. No guarding or rigidity. EXTREMITIES: No pedal edema with the patient having thin cachectic extremities. SKIN: No rashes, no jaundice. NEUROLOGIC: Alert and oriented x3. No focal deficits. - Labs CBC & Chem 7: 01/18/18 07:31 01/18/18 07:31 Labs: Abnormal Lab Results - Last 24 Hours (Table) 01/18/18 01/18/18 Range/Units 07:31 07:31 RBC 2.92 L (4.30-5.90) m/uL Hgb 8.9 L D (13.0-17.5) gm/dL Hct 27.8 L (39.0-53.0) % Lymphocytes # 0.6 L (1.0-4.8) k/uL Sodium 135 L (137-145) mmol/L Potassium 3.4 L (3.5-5.1) mmol/L Creatinine 0.47 L (0.66-1.25) mg/dL Calcium 7.8 L (8.4-10.2) mg/dL Alkaline Phosphatase 187 H (38-126) U/L Total Protein 4.5 L (6.3-8.2) g/dL Albumin 2.1 L (3.5-5.0) g/dL Assessment and Plan (1) Acute on chronic pancreatitis Narrative/Plan: Patient presenting with acute on chronic pancreatitis with typical abdominal pain and elevation in lipase of 2511 on presentation. The patient reports that this happened after endoscopic evaluation with EUS at [facility] for aspiration of pancreatic cysts and evaluation of pancreas. Currently much improved. Status: Acute Code(s): K85.90 - ACUTE PANCREATITIS WITHOUT NECROSIS OR INFECTION, UNSP; K86.1 - OTHER CHRONIC PANCREATITIS SNOMED Code(s): 870507414 (2) Abdominal pain Narrative/Plan: Secondary to above. Status: Acute Code(s): R10.9 - UNSPECIFIED ABDOMINAL PAIN SNOMED Code(s): 46048926 (3) Chronic pancreatitis Narrative/Plan: Likely secondary to long-standing history of alcohol abuse. Currently the patient is reporting being sober for the past 2 months. Status: Acute Code(s): K86.1 - OTHER CHRONIC PANCREATITIS SNOMED Code(s): 501702872 Plan: Supportive care Tolerate diet today. Rate of IV fluids cutback today. Monitor for signs of acute organ failure Continue alcohol abstinence Pain control Patient will need to follow up with [facility] for results of recent EUS guided biopsy Thank you for allowing us to participate in the care of this patient we will continue to follow
== END 2018-01-18 18:15 | disposition home or self-care (01) | DRG 439 ==
LOC: EC 21:39 → 4MS4W 01-17 02:48
PROVIDERS: ADMIT Internal Medicine; ATTEND Internal Medicine
DX: K85.20 Alcohol induced acute pancreatitis without necrosis or infection (principal); N13.39 Other hydronephrosis; K86.0 Alcohol-induced chronic pancreatitis; K21.9 Gastro-esophageal reflux disease without esophagitis; E78.5 Hyperlipidemia, unspecified; F32.9 Major depressive disorder, single episode, unspecified; F41.9 Anxiety disorder, unspecified; G62.9 Polyneuropathy, unspecified; R19.7 Diarrhea, unspecified; M54.5 Low back pain; G89.29 Other chronic pain; N40.1 Benign prostatic hyperplasia with lower urinary tract symptoms; R33.8 Other retention of urine; Z79.899 Other long term (current) drug therapy; Z87.01 Personal history of pneumonia (recurrent); Z90.49 Acquired absence of other specified parts of digestive tract; Z71.41 Alcohol abuse counseling and surveillance of alcoholic; Z82.49 Family history of ischemic heart disease and other diseases of the circulatory system; Z83.3 Family history of diabetes mellitus
CPT/HCPCS: 36415; 74018; 74160; 80053; 81001; 82150; 83690; 85025; 93005; 96361; 96374; 96375; 96376; 99285

== ENCOUNTER 2018-01-19 19:23 | Emergency (ER) | payer MEDICARE, OTHER ==
[2018-01-19] MEDS ORDERED: ONDANSETRON 4 MG/2 ML VIAL IVP STA (19:58)
[2018-01-19] MEDS ORDERED: SODIUM CHLORIDE 0.9% 1,000 ML IV STA (19:58)
[2018-01-19] MEDS ORDERED: MORPHINE SULFATE 4 MG/ML SYRINGE IV STA (19:58)
--- NOTE | 2018-01-19 20:00 | ED ---
Abdominal Pain HPI - General Chief Complaint: Abdominal Pain Stated Complaint: nausea Time Seen by Provider: 01/19/18 19:52 Source: patient Mode of arrival: wheelchair Limitations: no limitations - History of Present Illness Initial Comments: 47-year-old male patient presents to the emergency department today for evaluation of abdominal pain, vomiting, and dizziness. Patient states that symptoms are present when he woke this morning. Patient states he did have of biopsy of his pancreas at [facility] on 01/16/2018. Patient states that he was seen and evaluated here the next day for increased abdominal pain and vomiting was admitted for observation. Patient states he was discharged yesterday. Patient does have a history of chronic abdominal pain, chronic pancreatitis, and states that his symptoms are consistent with his usual pain patterns. Patient states he is unable to keep down any food or fluids. States he has diarrhea intermittently. Denies any hematochezia or melena. He denies any fevers or chills with this. Patient denies any recent rash, shortness breath , chest pain, numbness, tingling, hematuria, dysuria, urinary urgency, urinary frequency, headache, visual changes, or any other complaints. - Related Data Home Medications Medication Instructions Recorded Confirmed traZODone HCL 50 mg PO HS 04/04/17 01/17/18 Gabapentin [Neurontin] 400 mg PO TID 07/18/17 01/17/18 Magnesium Oxide [Mag-Ox] 200 mg PO DAILY 09/18/17 01/17/18 Tamsulosin HCl [Flomax] 0.4 mg PO DAILY 09/18/17 01/17/18 Lipase/Protease/Amylase [[place] 2 cap PO TID-W/MEALS 10/20/17 01/17/18 24,000 Units Capsule] Betamethasone Valerate [Luxiq 1%] 1 applic TOPICAL BID 12/11/17 01/17/18 Diazepam [Valium] 2 mg PO TID PRN 12/11/17 01/17/18 buPROPion HCL [Wellbutrin XL] 300 mg PO DAILY 12/12/17 01/17/18 Multivitamins, Thera [Multivitamin 1 tab PO DAILY@1200 01/17/18 01/17/18 (formulary)] Previous Rx's Medication Instructions Recorded Omeprazole [PriLOSEC] 40 mg PO BID #60 capsule. 05/16/17 Ondansetron Odt [Zofran ODT] 4 mg PO Q8HR PRN #10 tab 12/11/17 HYDROcodone/APAP 5-325MG [[place] 1 tab PO Q6HR PRN 3 Days #12 tab 01/02/18 5-325] Thiamine [Vitamin B-1] 100 mg PO DAILY@1200 #30 tab 01/02/18 Allergies Allergy/AdvReac Type Severity Reaction Status Date / Time No Known Allergies Allergy Verified 01/19/18 19:30 Review of Systems ROS Statement: Those systems with pertinent positive or pertinent negative responses have been documented in the HPI. ROS Other: All systems not noted in ROS Statement are negative. Past Medical History Past Medical History: GERD/Reflux, GI Bleed, Hyperlipidemia, Liver Disease, Pneumonia, Prostate Disorder Additional Past Medical History / Comment(s): ETOH ABUSE RECURRANT PANCREATITIS , ALCOHOLIC HEPATITIS, NEUROPATHY BILATERAL FEET SINCE BACK SURGERY, hx of CHRONIC URINARY RETENTION DUE TO BACK PROBLEMS-SELF CATHS, CHRONIC L HYDROURETERONEPHROSIS D/T REFLUX, CHRONIC LOW BACK PAIN (HAS STIMULATOR THAT PT STATES DOES NOT WORK), HEMATEMESIS, CHRONIC LOOSE STOOLS. History of Any Multi-Drug Resistant Organisms: None Reported Past Surgical History: Back Surgery, Cholecystectomy, Orthopedic Surgery Additional Past Surgical History / Comment(s): EGDS, colonoscopy, bronchoscopy, BACK surgeries with TITANIUM PLATES MILTON and CAGES, KIDNEY STONES removed per pt, SPINAL CORD STIMULATOR, ISMAEL KNEE ARTHROSCOPIES, PINKY FINGER RT HAND REATTATCHED Past Anesthesia/Blood Transfusion Reactions: No Reported Reaction Past Psychological History: Anxiety, Depression Smoking Status: Current every day smoker Past Alcohol Use History: Daily Past Drug Use History: None Reported - Past Family History Father Family Medical History: Diabetes Mellitus Additional Family Medical History / Comment(s): Mother Family Medical History: Dementia, Hyperlipidemia, Hypertension Additional Family Medical History / Comment(s): Mother is living. General Exam Limitations: no limitations General appearance: alert, in no apparent distress, other (This is a well- developed, well-nourished adult male patient in no acute distress. Vital signs upon presentation are temperature 98.7F, pulse 85, respirations 18, blood pressure 136/89, pulse ox 100% on room air.) Eye exam: Present: normal appearance, PERRL, EOMI. Absent: scleral icterus, conjunctival injection, periorbital swelling ENT exam: Present: normal exam, normal oropharynx, mucous membranes moist Respiratory exam: Present: normal lung sounds bilaterally. Absent: respiratory distress, wheezes, rales, rhonchi, stridor Cardiovascular Exam: Present: regular rate, normal rhythm, normal heart sounds. Absent: systolic murmur, diastolic murmur, rubs, gallop, clicks GI/Abdominal exam: Present: soft, tenderness (Upper abdominal tenderness), normal bowel sounds. Absent: distended, guarding, rebound, rigid Neurological exam: Present: alert, oriented X3, CN II-XII intact Psychiatric exam: Present: normal affect, normal mood Skin exam: Present: warm, dry, intact, normal color. Absent: rash Course Vital Signs 01/19/18 01/19/18 01/19/18 19:27 20:57 22:19 Temperature 98.7 F 98.6 F Pulse Rate 85 79 86 Respiratory 18 16 16 Rate Blood Pressure 136/89 150/86 144/94 O2 Sat by Pulse 100 100 97 Oximetry Medical Decision Making - Medical Decision Making 47-year-old male patient with past medical history significant for chronic pancreatitis and chronic abdominal pain presents to the emergency department today for evaluation of upper abdominal pain and vomiting. Physical examination did reveal some upper abdominal tenderness. Vital signs are stable. Labs reviewed and were unremarkable, lipase is normal today. Patient requested pain medications multiple times in the emergency department. He was given nausea medication and 1 dose of morphine. He will be discharged home to follow-up with his primary care physician for recheck as soon as possible. Return parameters were discussed in detail. He verbalizes understanding and agrees with this plan. - Lab Data Result diagrams: 01/19/18 19:45 01/19/18 19:45 Lab Results 01/19/18 01/19/18 01/19/18 Range/Units 19:45 19:45 19:45 WBC 8.1 (3.8-10.6) k/uL RBC 3.28 L (4.30-5.90) m/uL Hgb 9.9 L (13.0-17.5) gm/dL Hct 30.3 L (39.0-53.0) % MCV 92.2 (80.0-100.0) fL MCH 30.1 (25.0-35.0) pg MCHC 32.7 (31.0-37.0) g/dL RDW 14.8 (11.5-15.5) % Plt Count 296 (150-450) k/uL Neutrophils % 78 % Lymphocytes % 14 % Monocytes % 6 % Eosinophils % 1 % Basophils % 0 % Neutrophils # 6.3 (1.3-7.7) k/uL Lymphocytes # 1.1 (1.0-4.8) k/uL Monocytes # 0.5 (0-1.0) k/uL Eosinophils # 0.1 (0-0.7) k/uL Basophils # 0.0 (0-0.2) k/uL Sodium 133 L (137-145) mmol/L Potassium 3.6 (3.5-5.1) mmol/L Chloride 99 (98-107) mmol/L Carbon Dioxide 28 (22-30) mmol/L Anion Gap 6 mmol/L BUN 10 (9-20) mg/dL Creatinine 0.52 L (0.66-1.25) mg/dL Est GFR (CKD-EPI)AfAm >90 (>60 ml/min/1.73 sqM) Est GFR (CKD-EPI)NonAf >90 (>60 ml/min/1.73 sqM) Glucose 84 (74-99) mg/dL Calcium 8.5 (8.4-10.2) mg/dL Total Bilirubin 0.3 (0.2-1.3) mg/dL AST 16 L (17-59) U/L ALT 26 (21-72) U/L Alkaline Phosphatase 200 H (38-126) U/L Total Creatine Kinase 29 L (55-170) U/L CK-MB (CK-2) 0.3 (0.0-2.4) ng/mL CK-MB (CK-2) Rel Index 1.0 Troponin I <0.012 (0.000-0.034) ng/mL Total Protein 5.6 L (6.3-8.2) g/dL Albumin 2.7 L (3.5-5.0) g/dL Amylase 38 (30-110) U/L Lipase 280 (23-300) U/L Urine Color Urine Appearance (Clear) Urine pH (5.0-8.0) Ur Specific [place] (1.001-1.035) Urine Protein (Negative) Urine Glucose (UA) (Negative) Urine Ketones (Negative) Urine Blood (Negative) Urine Nitrite (Negative) Urine Bilirubin (Negative) Urine Urobilinogen (<2.0) mg/dL Ur Leukocyte Esterase (Negative) Urine RBC (0-5) /hpf Urine WBC (0-5) /hpf Amorphous Sediment (None) /hpf Urine Mucus (None) /hpf 01/19/18 Range/Units 21:59 WBC (3.8-10.6) k/uL RBC (4.30-5.90) m/uL Hgb (13.0-17.5) gm/dL Hct (39.0-53.0) % MCV (80.0-100.0) fL MCH (25.0-35.0) pg MCHC (31.0-37.0) g/dL RDW (11.5-15.5) % Plt Count (150-450) k/uL Neutrophils % % Lymphocytes % % Monocytes % % Eosinophils % % Basophils % % Neutrophils # (1.3-7.7) k/uL Lymphocytes # (1.0-4.8) k/uL Monocytes # (0-1.0) k/uL Eosinophils # (0-0.7) k/uL Basophils # (0-0.2) k/uL Sodium (137-145) mmol/L Potassium (3.5-5.1) mmol/L Chloride (98-107) mmol/L Carbon Dioxide (22-30) mmol/L Anion Gap mmol/L BUN (9-20) mg/dL Creatinine (0.66-1.25) mg/dL Est GFR (CKD-EPI)AfAm (>60 ml/min/1.73 sqM) Est GFR (CKD-EPI)NonAf (>60 ml/min/1.73 sqM) Glucose (74-99) mg/dL Calcium (8.4-10.2) mg/dL Total Bilirubin (0.2-1.3) mg/dL AST (17-59) U/L ALT (21-72) U/L Alkaline Phosphatase (38-126) U/L Total Creatine Kinase (55-170) U/L CK-MB (CK-2) (0.0-2.4) ng/mL CK-MB (CK-2) Rel Index Troponin I (0.000-0.034) ng/mL Total Protein (6.3-8.2) g/dL Albumin (3.5-5.0) g/dL Amylase (30-110) U/L Lipase (23-300) U/L Urine Color Yellow Urine Appearance Cloudy (Clear) Urine pH 8.0 (5.0-8.0) Ur Specific [place] 1.009 (1.001-1.035) Urine Protein Negative (Negative) Urine Glucose (UA) Negative (Negative) Urine Ketones Negative (Negative) Urine Blood Negative (Negative) Urine Nitrite Negative (Negative) Urine Bilirubin Negative (Negative) Urine Urobilinogen <2.0 (<2.0) mg/dL Ur Leukocyte Esterase Small H (Negative) Urine RBC 2 (0-5) /hpf Urine WBC 25 H (0-5) /hpf Amorphous Sediment Rare H (None) /hpf Urine Mucus Rare H (None) /hpf - EKG Data -: EKG Interpreted by Md EKG Comments: EKG obtained at 2040 shows normal sinus rhythm with a ventricular rate of 80, MI interval 154, QRS duration 84, QT 404, QTC 465. No evidence of ST elevation or depression. Disposition Clinical Impression: Abdominal pain Disposition: HOME SELF-CARE Condition: Good Instructions: Abdominal Pain (ED) Additional Instructions: Follow-up with your primary care physician for recheck in 1-2 days. Return here immediately for any new, worsening, or concerning symptoms. Is patient prescribed a controlled substance at d/c from ED?: No Referrals: Kerri Quinones MD [Primary Care Provider] - 1-2 days
[2018-01-19 20:11] LABS: Basophils % (A) 0 %; Eosinophils # (A) 0.1 k/uL (0-0.7); Eosinophils % (A) 1 %; HCT 30.3 % (39.0-53.0); HGB 9.9 gm/dL (13.0-17.5); Lymphocytes # (A) 1.1 k/uL (1.0-4.8); Lymphocytes % (A) 14 %; MCH 30.1 pg (25.0-35.0); MCHC 32.7 g/dL (31.0-37.0); MCV 92.2 fL (80.0-100.0); Mean Platelet Volume 7.1; Monocytes # (A) 0.5 k/uL (0-1.0); Monocytes % (A) 6 %; Neutrophils # (A) 6.3 k/uL (1.3-7.7); Neutrophils % (A) 78 %; Platelet Count 296 k/uL (150-450); RBC 3.28 m/uL (4.30-5.90); RDW 14.8 % (11.5-15.5); WBC 8.1 k/uL (3.8-10.6)
[2018-01-19 20:20] LABS: ALT 26 U/L (21-72); AST 16 U/L (17-59); Albumin 2.7 g/dL (3.5-5.0); Alkaline Phosphatase 200 U/L (38-126); Amylase 38 U/L (30-110); Anion Gap 6 mmol/L; Blood Urea Nitrogen 10 mg/dL (9-20); Calcium 8.5 mg/dL (8.4-10.2); Carbon Dioxide 28 mmol/L (22-30); Chloride 99 mmol/L (98-107); Glucose 84 mg/dL (74-99); Lipase 280 U/L (23-300); Potassium 3.6 mmol/L (3.5-5.1); Sodium 133 mmol/L (137-145); Total Bilirubin 0.3 mg/dL (0.2-1.3); Total Protein 5.6 g/dL (6.3-8.2)
[2018-01-19 20:42] LABS: Creatine Kinase 29 U/L (55-170)
[2018-01-19 20:55] LABS: Creatine Kinase MB 0.3 ng/mL (0.0-2.4); Troponin I <0.012 ng/mL (0.000-0.034)
[2018-01-19 20:59] VITALS: RESP 16
[2018-01-19] MEDS ORDERED: METOCLOPRAMIDE 5 MG/ML 2 ML VIAL IVP STA (22:11)
[2018-01-19] MEDS ORDERED: diphenhydrAMINE 50 MG/ML 1 ML VIAL IVP STA (22:11)
[2018-01-19 22:20] VITALS: BP 144/94; PULSE 86; TEMP 98.6
[2018-01-19 22:42] LABS: Amorphous Sediment,Urine Rare /hpf; Appearance,Urine Cloudy (Clear); Bilirubin,Urine Negative (Negative); Blood,Urine Negative (Negative); Color,Urine Yellow; Glucose,Urine (UA) Negative (Negative); Ketones,Urine Negative (Negative); Leukocyte Esterase,Urine Small (Negative); Mucus,Urine Rare /hpf; Nitrite,Urine Negative (Negative); Protein,Urine Negative (Negative); RBC,Urine 2 /hpf (0-5); Specific Gravity,Urine 1.009 (1.001-1.035); Urobilinogen,Urine <2.0 mg/dL (<2.0); WBC,Urine 25 /hpf (0-5)
== END 2018-01-19 22:23 | disposition home or self-care (01) ==
LOC: EC 19:23
DX: R10.10 Upper abdominal pain, unspecified (principal); R11.2 Nausea with vomiting, unspecified; R42 Dizziness and giddiness; R19.7 Diarrhea, unspecified; N42.9 Disorder of prostate, unspecified; G62.9 Polyneuropathy, unspecified; F41.9 Anxiety disorder, unspecified; F32.9 Major depressive disorder, single episode, unspecified; F17.200 Nicotine dependence, unspecified, uncomplicated; Z87.19 Personal history of other diseases of the digestive system; Z90.49 Acquired absence of other specified parts of digestive tract; Z98.890 Other specified postprocedural states; Z79.52 Long term (current) use of systemic steroids; Z79.899 Other long term (current) drug therapy
CPT/HCPCS: 36415; 93005; 80053; 82150; 82550; 82553; 83690; 84484; 85025; 81001; 99284; 96374; 96375 ×3; 96361; J2270; J1200; J2765; J2405

== ENCOUNTER 2018-01-24 13:00 | Inpatient (IN) | payer MEDICARE, OTHER ==
[2018-01-24 14:27] LABS: Basophils % (A) 1 %; Eosinophils # (A) 0.1 k/uL (0-0.7); Eosinophils % (A) 2 %; HCT 35.4 % (39.0-53.0); HGB 11.2 gm/dL (13.0-17.5); Lymphocytes # (A) 1.5 k/uL (1.0-4.8); Lymphocytes % (A) 17 %; MCH 29.1 pg (25.0-35.0); MCHC 31.8 g/dL (31.0-37.0); MCV 91.7 fL (80.0-100.0); Mean Platelet Volume 6.7; Monocytes # (A) 0.5 k/uL (0-1.0); Monocytes % (A) 6 %; Neutrophils # (A) 6.5 k/uL (1.3-7.7); Neutrophils % (A) 72 %; Platelet Count 622 k/uL (150-450); RBC 3.86 m/uL (4.30-5.90); WBC 9.1 k/uL (3.8-10.6)
[2018-01-24] MEDS ORDERED: ONDANSETRON ODT 4 MG TAB PO STA (14:30)
[2018-01-24 14:35] LABS: ALT 19 U/L (21-72); AST 12 U/L (17-59); Albumin 3.3 g/dL (3.5-5.0); Alkaline Phosphatase 159 U/L (38-126); Amylase 116 U/L (30-110); Anion Gap 7 mmol/L; Blood Urea Nitrogen 12 mg/dL (9-20); Calcium 9.2 mg/dL (8.4-10.2); Carbon Dioxide 25 mmol/L (22-30); Chloride 107 mmol/L (98-107); Glucose 110 mg/dL (74-99); Lipase 1798 U/L (23-300); Potassium 4.9 mmol/L (3.5-5.1); Sodium 139 mmol/L (137-145); Total Bilirubin 0.2 mg/dL (0.2-1.3); Total Protein 6.6 g/dL (6.3-8.2)
[2018-01-24] MEDS ORDERED: SODIUM CHLORIDE 0.9% 2,000 ML IV ONE (14:55)
[2018-01-24] MEDS ORDERED: KETOROLAC 30 MG/ML 1 ML VIAL IVP PRN (14:57)
[2018-01-24] MEDS ORDERED: KETOROLAC 30 MG/ML 1 ML VIAL IVP STA (14:57)
[2018-01-24] MEDS ORDERED: NALOXONE 0.4 MG/ML 1 ML VIAL IV PRN (14:57)
[2018-01-24] MEDS ORDERED: ONDANSETRON 4 MG/2 ML VIAL IVP STA (14:57)
--- NOTE | 2018-01-24 14:57 | ED ---
Abdominal Pain HPI - General Source: patient, RN notes reviewed Mode of arrival: wheelchair Limitations: no limitations <Ten Quigley - Last Filed: 01/24/18 14:55> <Herman Neal - Last Filed: 01/24/18 15:07> - General Chief Complaint: Abdominal Pain Stated Complaint: pancreatitis Time Seen by Provider: 01/24/18 14:29 - History of Present Illness Initial Comments: 47-year-old male presents emergency Department with chief complaint of abdominal pain. Patient states that it started last night early this morning with nausea vomiting. Patient has chronic pancreatitis has had recent biopsy at [facility] and shows concern for possible pancreatic cancer. denies any recent alcohol use. Denies fever or chills. No chest pain or shortness breath. (Ten Quigley) - Related Data Home Medications Medication Instructions Recorded Confirmed traZODone HCL 50 mg PO HS 04/04/17 01/24/18 Gabapentin [Neurontin] 400 mg PO TID 07/18/17 01/24/18 Magnesium Oxide [Mag-Ox] 200 mg PO DAILY 09/18/17 01/24/18 Tamsulosin HCl [Flomax] 0.4 mg PO DAILY 09/18/17 01/24/18 Lipase/Protease/Amylase [Creletha Belcher 2 cap PO TID-W/MEALS 10/20/17 01/24/18 24,000 Units Capsule] Betamethasone Valerate [Luxiq 1%] 1 applic TOPICAL BID 12/11/17 01/24/18 Diazepam [Valium] 2 mg PO TID PRN 12/11/17 01/24/18 buPROPion HCL [Wellbutrin XL] 300 mg PO DAILY 12/12/17 01/24/18 Multivitamins, Thera [Multivitamin 1 tab PO DAILY@1200 01/17/18 01/24/18 (formulary)] Previous Rx's Medication Instructions Recorded Omeprazole [PriLOSEC] 40 mg PO BID #60 capsule. 05/16/17 Ondansetron Odt [Zofran ODT] 4 mg PO Q8HR PRN #10 tab 12/11/17 HYDROcodone/APAP 5-325MG [[place] 1 tab PO Q6HR PRN 3 Days #12 tab 01/02/18 5-325] Thiamine [Vitamin B-1] 100 mg PO DAILY@1200 #30 tab 01/02/18 Allergies Allergy/AdvReac Type Severity Reaction Status Date / Time No Known Allergies Allergy Verified 01/24/18 14:40 Review of Systems ROS Other: All systems not noted in ROS Statement are negative. <Ten Quigley - Last Filed: 01/24/18 14:55> ROS Other: All systems not noted in ROS Statement are negative. <Herman Neal - Last Filed: 01/24/18 15:07> ROS Statement: Those systems with pertinent positive or pertinent negative responses have been documented in the HPI. Past Medical History Past Medical History: GERD/Reflux, GI Bleed, Hyperlipidemia, Liver Disease, Pneumonia, Prostate Disorder Additional Past Medical History / Comment(s): ETOH ABUSE RECURRANT PANCREATITIS , ALCOHOLIC HEPATITIS, NEUROPATHY BILATERAL FEET SINCE BACK SURGERY, hx of CHRONIC URINARY RETENTION DUE TO BACK PROBLEMS-SELF CATHS, CHRONIC L HYDROURETERONEPHROSIS D/T REFLUX, CHRONIC LOW BACK PAIN (HAS STIMULATOR THAT PT STATES DOES NOT WORK), HEMATEMESIS, CHRONIC LOOSE STOOLS. History of Any Multi-Drug Resistant Organisms: None Reported Past Surgical History: Back Surgery, Cholecystectomy, Orthopedic Surgery Additional Past Surgical History / Comment(s): EGDS, colonoscopy, bronchoscopy, BACK surgeries with TITANIUM PLATES MILTON and CAGES, KIDNEY STONES removed per pt, SPINAL CORD STIMULATOR, ISMAEL KNEE ARTHROSCOPIES, PINKY FINGER RT HAND REATTATCHED Past Anesthesia/Blood Transfusion Reactions: No Reported Reaction Past Psychological History: Anxiety, Depression Smoking Status: Current every day smoker Past Alcohol Use History: Daily Past Drug Use History: None Reported - Past Family History Father Family Medical History: Diabetes Mellitus Additional Family Medical History / Comment(s): Mother Family Medical History: Dementia, Hyperlipidemia, Hypertension Additional Family Medical History / Comment(s): Mother is living. <Ten Quigley - Last Filed: 01/24/18 14:55> General Exam Limitations: no limitations General appearance: alert, in no apparent distress Head exam: Present: atraumatic, normocephalic, normal inspection Neck exam: Present: normal inspection, full ROM. Absent: tenderness, meningismus, lymphadenopathy Respiratory exam: Present: normal lung sounds bilaterally. Absent: respiratory distress, wheezes, rales, rhonchi, stridor Cardiovascular Exam: Present: regular rate, normal rhythm, normal heart sounds. Absent: systolic murmur, diastolic murmur, rubs, gallop, clicks GI/Abdominal exam: Present: soft, tenderness, normal bowel sounds. Absent: distended, guarding, rebound, rigid Back exam: Absent: CVA tenderness (R), CVA tenderness (L) Skin exam: Present: warm, dry, intact, normal color. Absent: rash <Ten Quigley Gigi - Last Filed: 01/24/18 14:55> Course <Ten Quigley - Last Filed: 01/24/18 14:55> <Herman Neal - Last Filed: 01/24/18 15:07> Vital Signs 01/24/18 13:16 Temperature 98.2 F Pulse Rate 76 Respiratory 16 Rate Blood Pressure 148/76 O2 Sat by Pulse 99 Oximetry - Reevaluation(s) Reevaluation #1: 01/24/18 15:06 PA supervision: I did proceed a [id number] evaluation the patient and did discuss findings with the patient. Patient will be admitted for inpatient treatment and evaluation. I do agree with the assessment and plan. (Herman Neal) Medical Decision Making - Lab Data Result diagrams: 01/24/18 14:08 01/24/18 14:08 <SoraidaTen Yu - Last Filed: 01/24/18 14:55> - Lab Data Result diagrams: 01/24/18 14:08 01/24/18 14:08 <Herman Neal - Last Filed: 01/24/18 15:07> - Lab Data Lab Results 01/24/18 01/24/18 01/24/18 Range/Units 14:08 14:08 14:08 WBC 9.1 (3.8-10.6) k/uL RBC 3.86 L (4.30-5.90) m/uL Hgb 11.2 L (13.0-17.5) gm/dL Hct 35.4 L (39.0-53.0) % MCV 91.7 (80.0-100.0) fL MCH 29.1 (25.0-35.0) pg MCHC 31.8 (31.0-37.0) g/dL RDW 15.0 (11.5-15.5) % Plt Count 622 H (150-450) k/uL Neutrophils % 72 % Lymphocytes % 17 % Monocytes % 6 % Eosinophils % 2 % Basophils % 1 % Neutrophils # 6.5 (1.3-7.7) k/uL Lymphocytes # 1.5 (1.0-4.8) k/uL Monocytes # 0.5 (0-1.0) k/uL Eosinophils # 0.1 (0-0.7) k/uL Basophils # 0.0 (0-0.2) k/uL Sodium 139 (137-145) mmol/L Potassium 4.9 (3.5-5.1) mmol/L Chloride 107 (98-107) mmol/L Carbon Dioxide 25 (22-30) mmol/L Anion Gap 7 mmol/L BUN 12 (9-20) mg/dL Creatinine 0.69 (0.66-1.25) mg/dL Est GFR (CKD-EPI)AfAm >90 (>60 ml/min/1.73 sqM) Est GFR (CKD-EPI)NonAf >90 (>60 ml/min/1.73 sqM) Glucose 110 H (74-99) mg/dL Plasma Lactic Acid [place] 1.0 (0.7-2.0) mmol/L Calcium 9.2 (8.4-10.2) mg/dL Total Bilirubin 0.2 (0.2-1.3) mg/dL AST 12 L (17-59) U/L ALT 19 L (21-72) U/L Alkaline Phosphatase 159 H (38-126) U/L Total Protein 6.6 (6.3-8.2) g/dL Albumin 3.3 L (3.5-5.0) g/dL Amylase 116 H (30-110) U/L Lipase 1798 H (23-300) U/L Disposition <Ten Quigley - Last Filed: 01/24/18 14:55> <Herman Neal - Last Filed: 01/24/18 15:07> Clinical Impression: Acute on chronic pancreatitis, Nausea & vomiting Disposition: ADMITTED IP TO THIS [facility] Condition: Stable Referrals: Kerri Quinones MD [Primary Care Provider] - 1-2 days
[2018-01-24] MEDS: SODIUM CHLORIDE 0.9% 1,000 ML IV SCH (15:19)
[2018-01-24] MEDS: MORPHINE SULFATE 2 MG/ML SYRINGE IV PRN ×2 (17:15→21:39)
[2018-01-24] MEDS: ONDANSETRON 4 MG/2 ML VIAL IVP PRN (22:32)
[2018-01-25] MEDS: MORPHINE SULFATE 2 MG/ML SYRINGE IV PRN ×5 (00:49→20:08)
[2018-01-25] MEDS: SODIUM CHLORIDE 0.9% 1,000 ML IV SCH ×3 (00:49→20:07)
[2018-01-25] MEDS: ONDANSETRON 4 MG/2 ML VIAL IVP PRN ×2 (05:14→21:10)
[2018-01-25 05:45] LABS: Amorphous Sediment,Urine Moderate /hpf; Appearance,Urine Cloudy (Clear); Bacteria,Urine Occasional /hpf; Bilirubin,Urine Negative (Negative); Blood,Urine Negative (Negative); Color,Urine Yellow; Glucose,Urine (UA) Negative (Negative); Hyaline Casts,Urine 3 /lpf (0-2); Ketones,Urine Negative (Negative); Leukocyte Esterase,Urine Moderate (Negative); Mucus,Urine Few /hpf; Nitrite,Urine Negative (Negative); Protein,Urine Negative (Negative); RBC,Urine 5 /hpf (0-5); Specific Gravity,Urine 1.013 (1.001-1.035); Urobilinogen,Urine <2.0 mg/dL (<2.0); WBC,Urine 64 /hpf (0-5)
[2018-01-25] MEDS: NICOTINE 21MG/24HR PATCH TRANSDERM SCH (08:03)
[2018-01-25] MEDS: PANTOPRAZOLE 40 MG/10 ML VIAL IV SCH (09:24)
--- NOTE | 2018-01-25 11:39 | P.CONS ---
History of Present Illness - Reason for Consult Consult date: 01/25/18 Pancreatitis Requesting physician: Socorro Barragan - Chief Complaint Abdominal pain - History of Present Illness 47-year-old male with a history of long-standing alcohol abuse with recurrent episodes of acute on chronic pancreatitis requiring multiple hospitalizations. Admitted with acute epigastric upper abdominal pain with elevated pancreatic enzymes consistent with pancreatitis. No fever chills hematemesis hematochezia or melena. He was referred to [facility] and underwent EUS 01/16/2018 findings reported no obvious focal pancreatic mass. Duodenal deformity likely consistent with chronic pancreatitis with a normal second portion duodenum. Admission white count 9.1. Hemoglobin 11.2. Platelet 622. Lipase 1798. Amylase 116. Total bilirubin 0.2. AST 12. ALT 19. AP 159. Calcium 9.2. CO2 25. Lactic acid 1.0. Review of Systems Constitutional: Denies fever, chills, sweats, weight gain, or loss. HEENT: Negative for migraines, blurred vision or loss, earaches, drainage, tinnitus, oral mucosal lesions, dysphagia, or odynophagia. Cardiac: Negative for chest pain, arrhythmias, or palpitation. Respiratory: Negative for shortness of breath, hemoptysis, cough, or sputum production. Gastrointestinal: See HPI for pertinent findings. Genitourinary: Negative for hematuria, urgency, frequency, polyuria, dysuria, or penile discharge. Musculoskeletal: Negative for muscle aches, swelling, arthritis, and arthralgias. Neurologic: Negative for stroke or TIA. Endocrine: Negative for thyroid problems. Skin: Negative for rash or itching. Psychiatric: Negative history for depression and anxiety Past Medical History Past Medical History: GERD/Reflux, GI Bleed, Hyperlipidemia, Liver Disease, Pneumonia, Prostate Disorder Additional Past Medical History / Comment(s): ETOH ABUSE RECURRANT PANCREATITIS , ALCOHOLIC HEPATITIS, NEUROPATHY BILATERAL FEET SINCE BACK SURGERY, hx of CHRONIC URINARY RETENTION DUE TO BACK PROBLEMS-SELF CATHS, CHRONIC L HYDROURETERONEPHROSIS D/T REFLUX, CHRONIC LOW BACK PAIN (HAS STIMULATOR THAT PT STATES DOES NOT WORK), HEMATEMESIS, CHRONIC LOOSE STOOLS. History of Any Multi-Drug Resistant Organisms: None Reported Past Surgical History: Back Surgery, Cholecystectomy, Orthopedic Surgery Additional Past Surgical History / Comment(s): EGDS, colonoscopy, bronchoscopy, BACK surgeries with TITANIUM PLATES MILTON and CAGES, KIDNEY STONES removed per pt, SPINAL CORD STIMULATOR, ISMAEL KNEE ARTHROSCOPIES, PINKY FINGER RT HAND REATTATCHED. recent pancreatic bx at [facility]-pt waiting on results Past Anesthesia/Blood Transfusion Reactions: No Reported Reaction Smoking Status: Current every day smoker - Past Family History Father Family Medical History: Diabetes Mellitus Additional Family Medical History / Comment(s): Mother Family Medical History: Dementia, Hyperlipidemia, Hypertension Additional Family Medical History / Comment(s): Mother is living. Medications and Allergies Home Medications Medication Instructions Recorded Confirmed Type traZODone HCL 50 mg PO HS 04/04/17 01/24/18 History Omeprazole [PriLOSEC] 40 mg PO BID #60 capsule.dr 05/16/17 01/24/18 Rx Magnesium Oxide [Mag-Ox] 200 mg PO DAILY 09/18/17 01/24/18 History Tamsulosin HCl [Flomax] 0.4 mg PO DAILY 09/18/17 01/24/18 History Lipase/Protease/Amylase [[place] Dr 2 cap PO TID-W/MEALS 10/20/17 01/24/18 History 24,000 Units Capsule] Betamethasone Valerate [Luxiq 1%] 1 applic TOPICAL BID 12/11/17 01/24/18 History Diazepam [Valium] 2 mg PO TID PRN 12/11/17 01/24/18 History Ondansetron Odt [Zofran ODT] 4 mg PO Q8HR PRN #10 tab 12/11/17 01/24/18 Rx Thiamine [Vitamin B-1] 100 mg PO DAILY@1200 #30 tab 01/02/18 01/24/18 Rx Multivitamins, Thera [Multivitamin 1 tab PO DAILY@1200 01/17/18 01/24/18 History (formulary)] Allergies Allergy/AdvReac Type Severity Reaction Status Date / Time No Known Allergies Allergy Verified 01/24/18 14:40 Physical Exam Vitals: Vital Signs Temp Pulse Pulse Resp BP BP Pulse Ox 01/25/18 05:57 98.8 F 82 17 115/73 99 01/24/18 22:48 98.7 F 79 18 137/76 100 01/24/18 16:30 98.0 F 74 16 136/80 100 01/24/18 15:17 98.2 F 73 18 115/70 97 01/24/18 13:16 98.2 F 76 16 148/76 99 Intake and Output 01/24/18 01/25/18 01/25/18 22:59 06:59 14:59 Other: # Voids 1 2 General appearance: The patient is alert, oriented, in no acute distress. HET: Head is normocephalic and atraumatic. Pupils are equal and reactive. Oropharynx is clear without lesions. Neck: Supple without lymphadenopathy. Trachea midline. Heart: S1 S2. Regular rate and rhythm. Lungs: No crackles or wheezes are heard. Abdomen: Soft, mild tenderness midepigastrium, nondistended with bowel sounds. No peritoneal signs. No palpable organomegaly or masses. Extremities: Normal skin color and turgor. No cyanosis, rash, ulceration, clubbing, or edema. Radial and pedal pulses are 2/4 bilaterally. Neurological: No focal deficits. Strength and sensation are grossly intact. Results CBC & Chem 7: 01/24/18 14:08 01/24/18 14:08 Labs: Abnormal Lab Results - Last 24 Hours (Table) 01/24/18 01/24/18 01/25/18 Range/Units 14:08 14:08 00:01 RBC 3.86 L (4.30-5.90) m/uL Hgb 11.2 L (13.0-17.5) gm/dL Hct 35.4 L (39.0-53.0) % Plt Count 622 H (150-450) k/uL Glucose 110 H (74-99) mg/dL AST 12 L (17-59) U/L ALT 19 L (21-72) U/L Alkaline Phosphatase 159 H (38-126) U/L Albumin 3.3 L (3.5-5.0) g/dL Amylase 116 H (30-110) U/L Lipase 1798 H (23-300) U/L Ur Leukocyte Esterase Moderate H (Negative) Urine WBC 64 H (0-5) /hpf Amorphous Sediment Moderate H (None) /hpf Urine Bacteria Occasional H (None) /hpf Hyaline Casts 3 H (0-2) /lpf Urine Mucus Few H (None) /hpf Assessment and Plan (1) Acute on chronic pancreatitis Narrative/Plan: 47-year-old male with a history of acute on chronic pancreatitis with a history of long-standing alcoholism status post recent EUS reporting no evidence of focal pancreatic mass being followed by [facility]. Current Visit: Yes Status: Acute Code(s): K85.90 - ACUTE PANCREATITIS WITHOUT NECROSIS OR INFECTION, UNSP; K86.1 - OTHER CHRONIC PANCREATITIS SNOMED Code(s): 403539235 Plan: 1. Repeat pancreatic enzymes today. Patient is requesting initiation of diet. We'll start clear liquids and advance as tolerated. Discharge per medicine. Follow with [facility] as previously advised. Thank you for this kind referral and the opportunity to participate in the care of your patient. This consultation was discussed with Dr. Sams. The impression and plan of care have been directed as dictated.
--- NOTE | 2018-01-25 13:55 | P.HPIM ---
History of Present Illness H&P Date: 01/25/18 Chief Complaint: Abdominal pain Patient is a 47-year-old male with a known history of chronic pancreatitis EtOH related, GERD, hyperlipidemia, currently liver disease and BPH came back to the hospital with complaints of acute epigastric abdominal pain along with nausea. Patient says that he had a scope done at [facility] and came back home. Since then he's been having abdominal pain. Mainly in the epigastric region. No fever no chills. No diarrhea. No complains of dysuria or hematuria. Patient says that his last drink was about 4 days back. Patient underwent EUS at [facility] on 01/16/2018 and findings reported no obvious focal pancreatic mass. Duodenal deformity likely consistent with chronic pancreatitis with a normal second portion duodenum. Lipase level is 1798 on admission amylase 116 WBC 9.1 Review of Systems Constitutional: Patient denies any fever or chills . No generalized weakness or weight loss. Abdomen: Patient does have nausea and epigastric abdominal pain Cardiovascular: Patient denies any chest pain or short of breath no palpitations. Respiratory: patient denied any cough is from production. No shortness of breath Neurologic: Patient denied any numbness or tingling headache. Musculoskeletal: Patient denies any complaints of joint swelling or deformity. Skin: Negative Psychiatric: Negative Endocrine: No heat or cold intolerance. No recent weight gain. Genitourinary: No dysuria or hematuria. All other 14 point ROS negative except the above Past Medical History Past Medical History: GERD/Reflux, GI Bleed, Hyperlipidemia, Liver Disease, Pneumonia, Prostate Disorder Additional Past Medical History / Comment(s): ETOH ABUSE RECURRANT PANCREATITIS , ALCOHOLIC HEPATITIS, NEUROPATHY BILATERAL FEET SINCE BACK SURGERY, hx of CHRONIC URINARY RETENTION DUE TO BACK PROBLEMS-SELF CATHS, CHRONIC L HYDROURETERONEPHROSIS D/T REFLUX, CHRONIC LOW BACK PAIN (HAS STIMULATOR THAT PT STATES DOES NOT WORK), HEMATEMESIS, CHRONIC LOOSE STOOLS. History of Any Multi-Drug Resistant Organisms: None Reported Past Surgical History: Back Surgery, Cholecystectomy, Orthopedic Surgery Additional Past Surgical History / Comment(s): EGDS, colonoscopy, bronchoscopy, BACK surgeries with TITANIUM PLATES MILTON and CAGES, KIDNEY STONES removed per pt, SPINAL CORD STIMULATOR, ISMAEL KNEE ARTHROSCOPIES, PINKY FINGER RT HAND REATTATCHED. recent pancreatic bx at [facility]-pt waiting on results Past Anesthesia/Blood Transfusion Reactions: No Reported Reaction Smoking Status: Current every day smoker - Past Family History Father Family Medical History: Diabetes Mellitus Additional Family Medical History / Comment(s): Mother Family Medical History: Dementia, Hyperlipidemia, Hypertension Additional Family Medical History / Comment(s): Mother is living. Medications and Allergies Home Medications Medication Instructions Recorded Confirmed Type traZODone HCL 50 mg PO HS 04/04/17 01/24/18 History Omeprazole [PriLOSEC] 40 mg PO BID #60 capsule. 05/16/17 01/24/18 Rx Magnesium Oxide [Mag-Ox] 200 mg PO DAILY 09/18/17 01/24/18 History Tamsulosin HCl [Flomax] 0.4 mg PO DAILY 09/18/17 01/24/18 History Lipase/Protease/Amylase [Creon 2 cap PO TID-W/MEALS 10/20/17 01/24/18 History 24,000 Units Capsule] Betamethasone Valerate [Luxiq 1%] 1 applic TOPICAL BID 12/11/17 01/24/18 History Diazepam [Valium] 2 mg PO TID PRN 12/11/17 01/24/18 History Ondansetron Odt [Zofran ODT] 4 mg PO Q8HR PRN #10 tab 12/11/17 01/24/18 Rx Thiamine [Vitamin B-1] 100 mg PO DAILY@1200 #30 tab 01/02/18 01/24/18 Rx Multivitamins, Thera [Multivitamin 1 tab PO DAILY@1200 01/17/18 01/24/18 History (formulary)] Allergies Allergy/AdvReac Type Severity Reaction Status Date / Time No Known Allergies Allergy Verified 01/24/18 14:40 Physical Exam Vitals: Vital Signs Temp Pulse Pulse Resp BP BP Pulse Ox 01/25/18 05:57 98.8 F 82 17 115/73 99 01/24/18 22:48 98.7 F 79 18 137/76 100 01/24/18 16:30 98.0 F 74 16 136/80 100 01/24/18 15:17 98.2 F 73 18 115/70 97 Intake and Output 01/24/18 01/25/18 01/25/18 22:59 06:59 14:59 Other: # Voids 1 2 PHYSICAL EXAMINATION: Patient is lying in the bed comfortably, no acute distress, awake alert and oriented.. HEENT: Normocephalic. Neck is supple. Pupils reactive. Nostrils clear. Oral cavity is moist. Ears reveal no drainage. Neck reveals no JVD, carotid bruits, or thyromegaly. CHEST EXAMINATION: Trachea is central. Symmetrical expansion. Lung cowan clear to auscultation and percussion. CARDIAC: Normal S1, S2 with no gallops. No murmurs ABDOMEN: Soft. Bowel sounds normal. No organomegaly. No abdominal bruits. Extremities: reveal no edema. No clubbing or cyanosis Neurologically awake, alert, oriented x3 with well-coordinated movements. No focal deficits noted Skin: No rash or skin lesions. Psychiatric: Coperative. Nonsuicidal Musculoskeletal: No joint swelling or deformity. Normal range of motion. Results CBC & Chem 7: 01/24/18 14:08 01/24/18 14:08 Labs: Abnormal Lab Results - Last 24 Hours (Table) 01/24/18 01/24/18 01/25/18 Range/Units 14:08 14:08 00:01 RBC 3.86 L (4.30-5.90) m/uL Hgb 11.2 L (13.0-17.5) gm/dL Hct 35.4 L (39.0-53.0) % Plt Count 622 H (150-450) k/uL Glucose 110 H (74-99) mg/dL AST 12 L (17-59) U/L ALT 19 L (21-72) U/L Alkaline Phosphatase 159 H (38-126) U/L Albumin 3.3 L (3.5-5.0) g/dL Amylase 116 H (30-110) U/L Lipase 1798 H (23-300) U/L Ur Leukocyte Esterase Moderate H (Negative) Urine WBC 64 H (0-5) /hpf Amorphous Sediment Moderate H (None) /hpf Urine Bacteria Occasional H (None) /hpf Hyaline Casts 3 H (0-2) /lpf Urine Mucus Few H (None) /hpf 01/25/18 Range/Units 11:24 RBC (4.30-5.90) m/uL Hgb (13.0-17.5) gm/dL Hct (39.0-53.0) % Plt Count (150-450) k/uL Glucose (74-99) mg/dL AST (17-59) U/L ALT (21-72) U/L Alkaline Phosphatase (38-126) U/L Albumin (3.5-5.0) g/dL Amylase (30-110) U/L Lipase 440 H (23-300) U/L Ur Leukocyte Esterase (Negative) Urine WBC (0-5) /hpf Amorphous Sediment (None) /hpf Urine Bacteria (None) /hpf Hyaline Casts (0-2) /lpf Urine Mucus (None) /hpf Thrombosis Risk Factor Assmnt - DVT/VTE Prophylaxis DVT/VTE Prophylaxis: Pharmacologic Prophylaxis ordered Assessment and Plan Assessment: Acute on chronic EtOH related pancreatitis Alcohol abuse. Last drink 4 days back GERD LIVER disease Bilateral neuropathy feet Chronic urinary retention due to back problems and patient does self- catheterization. Chronic left hydroureteronephrosis due to reflex Chronic low back pain with stimulator placement Chronic loose stools Currently every day smoker DVT prophylaxis Plan: Patient be continued on IV fluids and pain management with morphine IV. We will continue the home medications and follow up closely. GI was consulted. Patient had recent EUS at [facility] and found no pancreatic mass. Patient was counseled extensively for alcohol abuse. Monitor for withdrawal symptoms. Further recommendations based on the clinical course. We'll advance diet once the pain is better and and anticipate discharge in next 24 hours. Time with Patient: Greater than 30
[2018-01-25 14:49] VITALS: BMI 19.3
[2018-01-25 15:02] VITALS: RESP 18
[2018-01-26] MEDS: MORPHINE SULFATE 2 MG/ML SYRINGE IV PRN ×5 (00:03→16:06)
[2018-01-26] MEDS ORDERED: DIAZEPAM 2 MG TAB PO PRN (01:00)
[2018-01-26] MEDS ORDERED: cefTRIAXone IN SWFI 1,000 MG/10 ML SYRINGE IVP SCH (01:00)
[2018-01-26] MEDS: ONDANSETRON 4 MG/2 ML VIAL IVP PRN ×2 (05:20→13:45)
[2018-01-26] MEDS: SODIUM CHLORIDE 0.9% 1,000 ML IV SCH ×2 (07:12→09:42)
[2018-01-26] MEDS: LIPASE 5,000/PROTEASE 17,000/AMYLASE 24,000 PO SCH ×2 (07:15→11:58)
[2018-01-26] MEDS: PANTOPRAZOLE 40 MG/10 ML VIAL IV SCH (07:16)
[2018-01-26] MEDS: NICOTINE 21MG/24HR PATCH TRANSDERM SCH (07:16)
[2018-01-26 08:00] LABS: ALT 25 U/L (21-72); AST 15 U/L (17-59); Albumin 2.7 g/dL (3.5-5.0); Alkaline Phosphatase 145 U/L (38-126); Amylase 72 U/L (30-110); Anion Gap 7 mmol/L; Blood Urea Nitrogen 4 mg/dL (9-20); Calcium 8.5 mg/dL (8.4-10.2); Carbon Dioxide 24 mmol/L (22-30); Chloride 102 mmol/L (98-107); Glucose 85 mg/dL (74-99); Lipase 368 U/L (23-300); Sodium 133 mmol/L (137-145); Total Bilirubin 0.4 mg/dL (0.2-1.3); Total Protein 5.6 g/dL (6.3-8.2)
[2018-01-26] MEDS ORDERED: PANTOPRAZOLE 40 MG TABLET PO SCH (09:00)
[2018-01-26] MEDS ORDERED: TAMSULOSIN 0.4 MG CAP.ER.24H PO SCH (09:00)
[2018-01-26] MEDS ORDERED: MAGNESIUM OXIDE 400 MG TAB PO SCH (09:00)
[2018-01-26] MEDS ORDERED: BETAMETHASONE DIPROPIONATE 0.05% CREAM 15 GM TUBE TOPICAL SCH (09:00)
[2018-01-26] MEDS ORDERED: MULTIVITAMINS, THERA 1 EACH TAB PO SCH (12:00)
[2018-01-26] MEDS ORDERED: THIAMINE 100 MG TAB PO SCH (12:00)
[2018-01-26] MEDS ORDERED: SIMETHICONE 80 MG CHEWABLE PO SCH (13:30)
[2018-01-26] MEDS ORDERED: cloNIDine HCL 0.1 MG TAB PO PRN (15:13)
[2018-01-26] MEDS ORDERED: hydrALAZINE HCL 20 MG/ML 1 ML VIAL IVP PRN (15:13)
[2018-01-26 15:24] VITALS: BP 120/70; PULSE 75; TEMP 98.4
[2018-01-26] MEDS ORDERED: traZODone HCL 50 MG TAB PO SCH (21:00)
--- NOTE | 2018-01-26 21:08 | PN ---
PROGRESS NOTE DATE OF SERVICE: 01/26/2018 INTERVAL HISTORY: This 47-year-old gentleman who was admitted with acute on chronic alcohol-related pancreatitis, improved significantly. No chest pain. No palpitations. No fever. PHYSICAL EXAM: Alert and oriented x3. Pulse 70, blood pressure 160/90, respiration 18, temperature 98.2, pulse ox 98% on room air. HEENT: Conjunctivae normal. Oral mucosa moist. Neck is no jugular venous distention. No carotid bruit. No lymph node enlargement. CARDIOVASCULAR: S1, S2. RESPIRATORY: Breath sounds diminished in the bases. No rhonchi, no crackles. ABDOMEN: Soft, mild diffuse discomfort in the in the epigastrium. Otherwise no guarding, no rigidity. No mass palpable. LEGS: No edema. NERVOUS SYSTEM: No focal deficits. LABS: WBC 9.1, hemoglobin 11.8, sodium 130, potassium 4. 1. Acute on chronic ETOH related to acute on chronic pancreatitis with severe abdominal pain. 2. History of ETOH, alcohol abuse. 3. Gastroesophageal reflux disease. 4. History of chronic liver disease. 5. History of bilateral neuropathy feet. 6. Chronic urinary tract infection. 7. Self catheterization. 8. Chronic left hydroureteronephrosis due to reflux. 9. Chronic low back pain with pain stimulator placement. 10.Chronic loose stools. 11.History of nicotine dependence. RECOMMENDATIONS AND DISCUSSION: I recommend to continue current medications, current symptomatic treatment. Otherwise I recommend to advance diet. Repeat labs in the morning. We will monitor closely. Repeat amylase and lipase. Increase ambulation. P.r.n. medications to control the blood pressure. See orders for details. Further recommendations to follow. MMODL / IJN: [id number] /
--- NOTE | 2018-01-27 05:08 | DS ---
DISCHARGE SUMMARY DATE OF SERVICE: 01/26/2018 FINAL DIAGNOSES: 1. Acute on chronic pancreatitis with abdominal pain. 2. History of alcohol abuse. 3. GERD. 4. Chronic kidney disease. 5. History of bilateral peripheral neuropathy. DISCHARGE DISPOSITION: The patient left the hospital AGAINST MEDICAL ADVICE. HISTORY OF PRESENT ILLNESS: This 47-year-old gentleman with a past medical history of multiple medical issues was admitted with acute on chronic pancreatitis. Patient being treated symptomatically but however the patient left the hospital AGAINST MEDICAL ADVICE. The prognosis remained guarded throughout the hospital stay. Please refer to the previous dictation for further details. MMODL / IJN: [id number] /
== END 2018-01-26 17:35 | disposition left against medical advice (07) | DRG 439 ==
LOC: EC 13:00 → 4MS4W 15:06
PROVIDERS: ADMIT Hospitalist; ATTEND Hospitalist
DX: K85.20 Alcohol induced acute pancreatitis without necrosis or infection (principal); N13.30 Unspecified hydronephrosis; K86.0 Alcohol-induced chronic pancreatitis; E78.5 Hyperlipidemia, unspecified; F10.10 Alcohol abuse, uncomplicated; F17.200 Nicotine dependence, unspecified, uncomplicated; G62.9 Polyneuropathy, unspecified; G89.29 Other chronic pain; K21.9 Gastro-esophageal reflux disease without esophagitis; K76.9 Liver disease, unspecified; F32.9 Major depressive disorder, single episode, unspecified; F41.9 Anxiety disorder, unspecified; M54.5 Low back pain; R33.9 Retention of urine, unspecified; N40.0 Benign prostatic hyperplasia without lower urinary tract symptoms; Z87.442 Personal history of urinary calculi; Z79.899 Other long term (current) drug therapy; Z87.01 Personal history of pneumonia (recurrent); Z82.49 Family history of ischemic heart disease and other diseases of the circulatory system; Z83.3 Family history of diabetes mellitus; Z82.0 Family history of epilepsy and other diseases of the nervous system; Z84.89 Family history of other specified conditions
CPT/HCPCS: 36415; 80053; 81001; 82150; 83605; 83690; 85025; 87040; 87086; 96361; 96374; 96375; 99284

== ENCOUNTER 2018-02-03 15:27 | Emergency (ER) | payer MEDICARE, OTHER ==
[2018-02-03 15:34] VITALS: TEMP 98.2
[2018-02-03] MEDS ORDERED: SODIUM CHLORIDE 0.9% 1,000 ML IV STA (15:43)
[2018-02-03] MEDS ORDERED: ONDANSETRON 4 MG/2 ML VIAL IVP STA (15:43)
[2018-02-03] MEDS ORDERED: MORPHINE SULFATE 4 MG/ML SYRINGE IV STA (15:43)
[2018-02-03] MEDS ORDERED: FAMOTIDINE 20 MG/2 ML VIAL IV STA (15:43)
--- NOTE | 2018-02-03 15:45 | ED ---
General Adult HPI - General Chief complaint: Abdominal Pain Stated complaint: Abd pain Time Seen by Provider: 02/03/18 15:36 Source: patient, RN notes reviewed, old records reviewed Mode of arrival: wheelchair Limitations: no limitations - History of Present Illness Initial comments: 47-year-old male significant past medical history for alcoholism, pancreatitis, presented to the emergency room today with chief complaint of upper abdominal pain with nausea vomiting that started early this morning. Patient does not that he's had similar symptoms in the past with pancreatitis. Patient states last drink was last night 7 PM. Patient states symptoms started earlier this morning and has had multiple episodes of nausea vomiting unable keep anything down. Patient denies any recent fever, chills, shortness of breath, chest pain, back pain, numbness or tingling, headaches or visual changes, or any other complaints. - Related Data Home Medications Medication Instructions Recorded Confirmed traZODone HCL 50 mg PO HS 04/04/17 02/03/18 Magnesium Oxide [Mag-Ox] 200 mg PO DAILY 09/18/17 02/03/18 Tamsulosin HCl [Flomax] 0.4 mg PO DAILY 09/18/17 02/03/18 Lipase/Protease/Amylase [Rebel Belcher 2 cap PO TID-W/MEALS 10/20/17 02/03/18 24,000 Units Capsule] Betamethasone Valerate [Luxiq 1%] 1 applic TOPICAL BID 12/11/17 02/03/18 Diazepam [Valium] 2 mg PO TID PRN 12/11/17 02/03/18 Multivitamins, Thera [Multivitamin 1 tab PO DAILY@1200 01/17/18 02/03/18 (formulary)] Previous Rx's Medication Instructions Recorded Omeprazole [PriLOSEC] 40 mg PO BID #60 capsule. 05/16/17 Ondansetron Odt [Zofran ODT] 4 mg PO Q8HR PRN #10 tab 12/11/17 Thiamine [Vitamin B-1] 100 mg PO DAILY@1200 #30 tab 01/02/18 Allergies Allergy/AdvReac Type Severity Reaction Status Date / Time No Known Allergies Allergy Verified 02/03/18 15:44 Review of Systems ROS Statement: Those systems with pertinent positive or pertinent negative responses have been documented in the HPI. ROS Other: All systems not noted in ROS Statement are negative. Past Medical History Past Medical History: GERD/Reflux, GI Bleed, Hyperlipidemia, Liver Disease, Pneumonia, Prostate Disorder Additional Past Medical History / Comment(s): ETOH ABUSE RECURRANT PANCREATITIS , ALCOHOLIC HEPATITIS, NEUROPATHY BILATERAL FEET SINCE BACK SURGERY, hx of CHRONIC URINARY RETENTION DUE TO BACK PROBLEMS-SELF CATHS, CHRONIC L HYDROURETERONEPHROSIS D/T REFLUX, CHRONIC LOW BACK PAIN (HAS STIMULATOR THAT PT STATES DOES NOT WORK), HEMATEMESIS, CHRONIC LOOSE STOOLS. History of Any Multi-Drug Resistant Organisms: None Reported Past Surgical History: Back Surgery, Cholecystectomy, Orthopedic Surgery Additional Past Surgical History / Comment(s): EGDS, colonoscopy, bronchoscopy, BACK surgeries with TITANIUM PLATES MILTON and CAGES, KIDNEY STONES removed per pt, SPINAL CORD STIMULATOR, ISMAEL KNEE ARTHROSCOPIES, PINKY FINGER RT HAND REATTATCHED. recent pancreatic bx at [facility]-pt waiting on results Past Anesthesia/Blood Transfusion Reactions: No Reported Reaction Past Psychological History: Anxiety, Depression Smoking Status: Current every day smoker Past Alcohol Use History: Occasional Past Drug Use History: None Reported - Past Family History Father Family Medical History: Diabetes Mellitus Additional Family Medical History / Comment(s): Mother Family Medical History: Dementia, Hyperlipidemia, Hypertension Additional Family Medical History / Comment(s): Mother is living. General Exam - General Exam Comments Initial Comments: General: The patient is awake and alert, in no distress, and does not appear acutely ill. Eye: Extra-ocular movements are intact. No nystagmus. There is normal conjunctiva bilaterally. No signs of icterus. Ears, nose, mouth and throat: There are moist mucous membranes and no oral lesions. Neck: The neck is supple, there is no tenderness or JVD. Cardiovascular: There is a regular rate and rhythm. No murmur, rub or gallop is appreciated. Respiratory: Lungs are clear to auscultation, respirations are non-labored, breath sounds are equal. No wheezes, stridor, rales, or rhonchi. Gastrointestinal: Abdomen soft on palpation. Patient does have tenderness upper quadrants. No rebound, guarding or CVA tenderness. Musculoskeletal: Normal ROM, no tenderness. Sensation intact. Neurological: A&O x 3. CN II-XII intact, There are no obvious motor or sensory deficits. Coordination appears grossly intact. Speech is normal. Skin: Skin is warm and dry and no rashes or lesions are noted. Psychiatric: Cooperative, appropriate mood & affect, normal judgment. Limitations: no limitations Course Vital Signs 02/03/18 15:32 Temperature 98.2 F Pulse Rate 95 Respiratory 16 Rate Blood Pressure 107/73 O2 Sat by Pulse 99 Oximetry Medical Decision Making - Medical Decision Making Patient reexamined at this time shows no signs of distress is resting comfortably. Patient's positive and reviewed. Lipase mildly elevated over 500. Patient updated of the results is feeling better will be discharged home with nausea medication advised follow-up with his family doctor tomorrow. - Lab Data Result diagrams: 02/03/18 16:00 02/03/18 16:00 Lab Results 02/03/18 02/03/18 Range/Units 16:00 16:00 WBC 11.3 H (3.8-10.6) k/uL RBC 3.57 L (4.30-5.90) m/uL Hgb 10.6 L (13.0-17.5) gm/dL Hct 32.8 L (39.0-53.0) % MCV 91.8 (80.0-100.0) fL MCH 29.8 (25.0-35.0) pg MCHC 32.4 (31.0-37.0) g/dL RDW 15.7 H (11.5-15.5) % Plt Count 503 H (150-450) k/uL Neutrophils % 84 % Lymphocytes % 10 % Monocytes % 4 % Eosinophils % 1 % Basophils % 0 % Neutrophils # 9.5 H (1.3-7.7) k/uL Lymphocytes # 1.1 (1.0-4.8) k/uL Monocytes # 0.5 (0-1.0) k/uL Eosinophils # 0.1 (0-0.7) k/uL Basophils # 0.0 (0-0.2) k/uL Sodium 139 (137-145) mmol/L Potassium 4.1 (3.5-5.1) mmol/L Chloride 108 H (98-107) mmol/L Carbon Dioxide 22 (22-30) mmol/L Anion Gap 9 mmol/L BUN 11 (9-20) mg/dL Creatinine 0.64 L (0.66-1.25) mg/dL Est GFR (CKD-EPI)AfAm >90 (>60 ml/min/1.73 sqM) Est GFR (CKD-EPI)NonAf >90 (>60 ml/min/1.73 sqM) Glucose 90 (74-99) mg/dL Calcium 8.7 (8.4-10.2) mg/dL Total Bilirubin 0.4 (0.2-1.3) mg/dL AST 14 L (17-59) U/L ALT 16 L (21-72) U/L Alkaline Phosphatase 113 (38-126) U/L Total Protein 6.2 L (6.3-8.2) g/dL Albumin 3.2 L (3.5-5.0) g/dL Amylase 88 (30-110) U/L Lipase 566 H (23-300) U/L Disposition Clinical Impression: Nausea & vomiting, Pancreatitis, Alcohol abuse Disposition: HOME SELF-CARE Condition: Good Instructions: Alcohol Use Disorder (ED) Additional Instructions: Please use medication as discussed. Please follow-up with family doctor in the next 2 days of symptoms have not improved. Please return to emergency room if the symptoms increase or worsen or for any other concerns. Is patient prescribed a controlled substance at d/c from ED?: No Referrals: Kerri Quinones MD [Primary Care Provider] - 1-2 days Time of Disposition: 16:52
[2018-02-03 16:11] LABS: Basophils % (A) 0 %; Eosinophils # (A) 0.1 k/uL (0-0.7); Eosinophils % (A) 1 %; HCT 32.8 % (39.0-53.0); HGB 10.6 gm/dL (13.0-17.5); Lymphocytes # (A) 1.1 k/uL (1.0-4.8); Lymphocytes % (A) 10 %; MCH 29.8 pg (25.0-35.0); MCHC 32.4 g/dL (31.0-37.0); MCV 91.8 fL (80.0-100.0); Mean Platelet Volume 6.6; Monocytes # (A) 0.5 k/uL (0-1.0); Monocytes % (A) 4 %; Neutrophils # (A) 9.5 k/uL (1.3-7.7); Neutrophils % (A) 84 %; Platelet Count 503 k/uL (150-450); RBC 3.57 m/uL (4.30-5.90); RDW 15.7 % (11.5-15.5); WBC 11.3 k/uL (3.8-10.6)
[2018-02-03 16:21] LABS: ALT 16 U/L (21-72); AST 14 U/L (17-59); Albumin 3.2 g/dL (3.5-5.0); Alkaline Phosphatase 113 U/L (38-126); Amylase 88 U/L (30-110); Anion Gap 9 mmol/L; Blood Urea Nitrogen 11 mg/dL (9-20); Calcium 8.7 mg/dL (8.4-10.2); Carbon Dioxide 22 mmol/L (22-30); Chloride 108 mmol/L (98-107); Glucose 90 mg/dL (74-99); Lipase 566 U/L (23-300); Potassium 4.1 mmol/L (3.5-5.1); Sodium 139 mmol/L (137-145); Total Bilirubin 0.4 mg/dL (0.2-1.3); Total Protein 6.2 g/dL (6.3-8.2)
[2018-02-03 17:17] VITALS: BP 149/86; PULSE 85; RESP 18
== END 2018-02-03 17:16 | disposition home or self-care (01) ==
LOC: EC 15:27
DX: K85.90 Acute pancreatitis without necrosis or infection, unspecified (principal); F10.10 Alcohol abuse, uncomplicated; K21.9 Gastro-esophageal reflux disease without esophagitis; N42.9 Disorder of prostate, unspecified; F41.9 Anxiety disorder, unspecified; F32.9 Major depressive disorder, single episode, unspecified; F17.200 Nicotine dependence, unspecified, uncomplicated; Z90.49 Acquired absence of other specified parts of digestive tract; Z79.52 Long term (current) use of systemic steroids; Z79.899 Other long term (current) drug therapy
CPT/HCPCS: 99284; 96374; 96375 ×2; 96361; 36415; 80053; 82150; 83690; 85025; J2270; J2405

== ENCOUNTER 2018-02-04 20:16 | Emergency (ER) | payer MEDICARE, OTHER ==
[2018-02-04] MEDS ORDERED: ONDANSETRON 4 MG/2 ML VIAL IVP STA (21:17)
[2018-02-04] MEDS ORDERED: SODIUM CHLORIDE 0.9% 2,000 ML IV STA (21:17)
[2018-02-04 22:04] LABS: Basophils # (A) 0.1 k/uL (0-0.2); Basophils % (A) 1 %; Eosinophils # (A) 0.1 k/uL (0-0.7); Eosinophils % (A) 1 %; HCT 30.7 % (39.0-53.0); HGB 10.2 gm/dL (13.0-17.5); Lymphocytes # (A) 1.2 k/uL (1.0-4.8); Lymphocytes % (A) 14 %; MCH 30.4 pg (25.0-35.0); MCHC 33.4 g/dL (31.0-37.0); MCV 91.1 fL (80.0-100.0); Mean Platelet Volume 6.9; Monocytes # (A) 0.4 k/uL (0-1.0); Monocytes % (A) 4 %; Neutrophils # (A) 7.3 k/uL (1.3-7.7); Neutrophils % (A) 80 %; Platelet Count 406 k/uL (150-450); RBC 3.37 m/uL (4.30-5.90); RDW 15.9 % (11.5-15.5); WBC 9.2 k/uL (3.8-10.6)
[2018-02-04 22:12] LABS: ALT 18 U/L (21-72); AST 16 U/L (17-59); Albumin 3.4 g/dL (3.5-5.0); Alkaline Phosphatase 127 U/L (38-126); Amylase 74 U/L (30-110); Anion Gap 10 mmol/L; Blood Urea Nitrogen 11 mg/dL (9-20); Calcium 8.8 mg/dL (8.4-10.2); Carbon Dioxide 23 mmol/L (22-30); Chloride 104 mmol/L (98-107); Glucose 85 mg/dL (74-99); Lipase 232 U/L (23-300); Potassium 3.8 mmol/L (3.5-5.1); Sodium 137 mmol/L (137-145); Total Bilirubin 0.4 mg/dL (0.2-1.3); Total Protein 6.6 g/dL (6.3-8.2)
[2018-02-04] MEDS ORDERED: KETOROLAC 30 MG/ML 1 ML VIAL IVP STA (22:20)
--- NOTE | 2018-02-04 22:21 | ED ---
Abdominal Pain HPI - General Source: patient, RN notes reviewed Mode of arrival: ambulatory Limitations: no limitations <Ten Quigley - Last Filed: 02/04/18 22:18> <Evita Boss - Last Filed: 02/05/18 22:48> - General Chief Complaint: Abdominal Pain Stated Complaint: abdominal pain Time Seen by Provider: 02/04/18 21:17 - History of Present Illness Initial Comments: 47-year-old male presents emergency Department chief complaint abdominal pain. Patient has chronic pancreatitis secondary to prior alcohol abuse. Patient is currently being seen at [facility] for possible pancreatic cancer. Patient states that he's been having pain last couple days was seen in emergency department yesterday. Patient denies any fever, chills, chest pain or shortness of breath. Patient has no dysuria no hematuria. (Ten Quigley) - Related Data Home Medications Medication Instructions Recorded Confirmed traZODone HCL 50 mg PO HS 04/04/17 02/04/18 Magnesium Oxide [Mag-Ox] 200 mg PO DAILY 09/18/17 02/04/18 Tamsulosin HCl [Flomax] 0.4 mg PO DAILY 09/18/17 02/04/18 Lipase/Protease/Amylase [Creon Dr 2 cap PO TID-W/MEALS 10/20/17 02/04/18 24,000 Units Capsule] Betamethasone Valerate [Luxiq 1%] 1 applic TOPICAL BID 12/11/17 02/04/18 Diazepam [Valium] 2 mg PO TID PRN 12/11/17 02/04/18 Multivitamins, Thera [Multivitamin 1 tab PO DAILY@1200 01/17/18 02/04/18 (formulary)] Previous Rx's Medication Instructions Recorded Omeprazole [PriLOSEC] 40 mg PO BID #60 capsule. 05/16/17 Ondansetron Odt [Zofran ODT] 4 mg PO Q8HR PRN #10 tab 12/11/17 Thiamine [Vitamin B-1] 100 mg PO DAILY@1200 #30 tab 01/02/18 Allergies Allergy/AdvReac Type Severity Reaction Status Date / Time No Known Allergies Allergy Verified 02/04/18 20:26 Review of Systems ROS Other: All systems not noted in ROS Statement are negative. <Ten Quigley - Last Filed: 02/04/18 22:18> ROS Other: All systems not noted in ROS Statement are negative. <Evita Boss P - Last Filed: 02/05/18 22:48> ROS Statement: Those systems with pertinent positive or pertinent negative responses have been documented in the HPI. Past Medical History Past Medical History: GERD/Reflux, GI Bleed, Hyperlipidemia, Liver Disease, Pneumonia, Prostate Disorder Additional Past Medical History / Comment(s): ETOH ABUSE RECURRANT PANCREATITIS , ALCOHOLIC HEPATITIS, NEUROPATHY BILATERAL FEET SINCE BACK SURGERY, hx of CHRONIC URINARY RETENTION DUE TO BACK PROBLEMS-SELF CATHS, CHRONIC L HYDROURETERONEPHROSIS D/T REFLUX, CHRONIC LOW BACK PAIN (HAS STIMULATOR THAT PT STATES DOES NOT WORK), HEMATEMESIS, CHRONIC LOOSE STOOLS. History of Any Multi-Drug Resistant Organisms: None Reported Past Surgical History: Back Surgery, Cholecystectomy, Orthopedic Surgery Additional Past Surgical History / Comment(s): EGDS, colonoscopy, bronchoscopy, BACK surgeries with TITANIUM PLATES MILTON and CAGES, KIDNEY STONES removed per pt, SPINAL CORD STIMULATOR, ISMAEL KNEE ARTHROSCOPIES, PINKY FINGER RT HAND REATTATCHED. recent pancreatic bx at [facility]-pt waiting on results Past Anesthesia/Blood Transfusion Reactions: No Reported Reaction Past Psychological History: Anxiety, Depression Smoking Status: Current every day smoker Past Alcohol Use History: Occasional Past Drug Use History: None Reported - Past Family History Father Family Medical History: Diabetes Mellitus Additional Family Medical History / Comment(s): Mother Family Medical History: Dementia, Hyperlipidemia, Hypertension Additional Family Medical History / Comment(s): Mother is living. <Ten Quigley M - Last Filed: 02/04/18 22:18> General Exam Limitations: no limitations General appearance: alert, in no apparent distress Head exam: Present: atraumatic, normocephalic, normal inspection Eye exam: Present: normal appearance, PERRL, EOMI. Absent: scleral icterus, conjunctival injection, periorbital swelling Respiratory exam: Present: normal lung sounds bilaterally. Absent: respiratory distress, wheezes, rales, rhonchi, stridor Cardiovascular Exam: Present: regular rate, normal rhythm, normal heart sounds. Absent: systolic murmur, diastolic murmur, rubs, gallop, clicks GI/Abdominal exam: Present: soft, tenderness (Moderate midabdominal), normal bowel sounds. Absent: distended, guarding, rebound, rigid Back exam: Absent: CVA tenderness (R), CVA tenderness (L) Skin exam: Present: warm, dry, intact, normal color. Absent: rash <Ten Quigley - Last Filed: 02/04/18 22:18> Vital Signs 02/04/18 02/04/18 20:24 22:50 Temperature 98.5 F 98.7 F Pulse Rate 89 77 Respiratory 18 16 Rate Blood Pressure 132/72 139/88 O2 Sat by Pulse 100 99 Oximetry Medical Decision Making - Lab Data Result diagrams: 02/04/18 21:40 02/04/18 21:40 <Ten Quigley - Last Filed: 02/04/18 22:18> - Lab Data Result diagrams: 02/04/18 21:40 02/04/18 21:40 <Evita Boss - Last Filed: 02/05/18 22:48> - Medical Decision Making 47-year-old male presents emergency department for abdominal pain concern for pancreatitis. Patient's labwork reviewed which is essentially unremarkable. Patient was given IV hydration, antiemetics and pain control. Patient will be discharged with close follow-up. (Ten Quigley) I was available for consultation in the emergency department. The history and physical exam were done by the midlevel provider. I was consulted for this patient's care. I reviewed the case with the midlevel provider and based on their presentation of the patient, I agree with the assessment, medical decision making and plan of care as documented. (Evita Boss) - Lab Data Lab Results 02/04/18 02/04/18 Range/Units 21:40 21:40 WBC 9.2 (3.8-10.6) k/uL RBC 3.37 L (4.30-5.90) m/uL Hgb 10.2 L (13.0-17.5) gm/dL Hct 30.7 L (39.0-53.0) % MCV 91.1 (80.0-100.0) fL MCH 30.4 (25.0-35.0) pg MCHC 33.4 (31.0-37.0) g/dL RDW 15.9 H (11.5-15.5) % Plt Count 406 (150-450) k/uL Neutrophils % 80 % Lymphocytes % 14 % Monocytes % 4 % Eosinophils % 1 % Basophils % 1 % Neutrophils # 7.3 (1.3-7.7) k/uL Lymphocytes # 1.2 (1.0-4.8) k/uL Monocytes # 0.4 (0-1.0) k/uL Eosinophils # 0.1 (0-0.7) k/uL Basophils # 0.1 (0-0.2) k/uL Sodium 137 (137-145) mmol/L Potassium 3.8 (3.5-5.1) mmol/L Chloride 104 (98-107) mmol/L Carbon Dioxide 23 (22-30) mmol/L Anion Gap 10 mmol/L BUN 11 (9-20) mg/dL Creatinine 0.55 L (0.66-1.25) mg/dL Est GFR (CKD-EPI)AfAm >90 (>60 ml/min/1.73 sqM) Est GFR (CKD-EPI)NonAf >90 (>60 ml/min/1.73 sqM) Glucose 85 (74-99) mg/dL Calcium 8.8 (8.4-10.2) mg/dL Total Bilirubin 0.4 (0.2-1.3) mg/dL AST 16 L (17-59) U/L ALT 18 L (21-72) U/L Alkaline Phosphatase 127 H (38-126) U/L Total Protein 6.6 (6.3-8.2) g/dL Albumin 3.4 L (3.5-5.0) g/dL Amylase 74 (30-110) U/L Lipase 232 (23-300) U/L Disposition Is patient prescribed a controlled substance at d/c from ED?: No Time of Disposition: 22:20 <Ten Quigley M - Last Filed: 02/04/18 22:18> <Evita Boss - Last Filed: 02/05/18 22:48> Clinical Impression: Chronic abdominal pain Disposition: HOME SELF-CARE Condition: Stable Instructions: Abdominal Pain (ED) Additional Instructions: Please return to the Emergency Department if symptoms worsen or any other concerns. Referrals: Kerri Quinones MD [Primary Care Provider] - 1-2 days
[2018-02-04 22:54] VITALS: PULSE 77; RESP 16; TEMP 98.7
[2018-02-04 22:56] VITALS: BP 139/88
== END 2018-02-04 22:57 | disposition home or self-care (01) ==
LOC: EC 20:16
DX: R10.9 Unspecified abdominal pain (principal); K21.9 Gastro-esophageal reflux disease without esophagitis; E78.5 Hyperlipidemia, unspecified; N42.9 Disorder of prostate, unspecified; F32.9 Major depressive disorder, single episode, unspecified; F41.9 Anxiety disorder, unspecified; F17.200 Nicotine dependence, unspecified, uncomplicated; Z79.899 Other long term (current) drug therapy; Z90.49 Acquired absence of other specified parts of digestive tract
CPT/HCPCS: 36415; 80053; 82150; 83690; 85025; 99284; 96374; 96375; 96361; J2405; J1885

== ENCOUNTER 2018-02-09 12:07 | Emergency (ER) | payer MEDICARE, OTHER ==
[2018-02-09 12:11] VITALS: BP 125/86; PULSE 88; RESP 20; TEMP 97.8
[2018-02-09] MEDS ORDERED: KETOROLAC 30 MG/ML 1 ML VIAL IM STA (12:36)
--- NOTE | 2018-02-09 12:40 | ED ---
Lower Extremity Injury HPI - General Chief Complaint: Extremity Injury, Lower Stated Complaint: Right Knee Injury Time Seen by Provider: 02/09/18 12:30 Source: patient Mode of arrival: wheelchair Limitations: no limitations - History of Present Illness Initial Comments: This a 47-year-old male with past medical history of previous stroke, alcoholic hepatitis and chronic pancreatitis presents today for chief complaint of right knee pain 2 days. Patient states that 2 days ago he misstepped off of a curb onto his right knee. Patient denies chest pain, dizziness, shortness of breath , visual changes prior to the fall. He states that this was mechanical nature. Patient states that he was able to immediately ambulate following the fall. He did have a small abrasion to the anterior right knee. Patient states his tetanus up-to-date. Since the fall the patient noticed increasing swelling along the lateral and pain with range motion. Patient denies any fever, chills , night sweats, pain out of proportion with range of motion, erythema of the right knee, numbness, tingling, loss sensation or muscle weakness of the right lower extremity. Remainder of ROS negative. Upon arrival patient spell signs stable. Patient has been taking ibuprofen for pain management. Last dose yesterday. - Related Data Home Medications Medication Instructions Recorded Confirmed traZODone HCL 50 mg PO HS 04/04/17 02/04/18 Magnesium Oxide [Mag-Ox] 200 mg PO DAILY 09/18/17 02/04/18 Tamsulosin HCl [Flomax] 0.4 mg PO DAILY 09/18/17 02/04/18 Lipase/Protease/Amylase [Rebel Belcher 2 cap PO TID-W/MEALS 10/20/17 02/04/18 24,000 Units Capsule] Betamethasone Valerate [Luxiq 1%] 1 applic TOPICAL BID 12/11/17 02/04/18 Diazepam [Valium] 2 mg PO TID PRN 12/11/17 02/04/18 Multivitamins, Thera [Multivitamin 1 tab PO DAILY@1200 01/17/18 02/04/18 (formulary)] Previous Rx's Medication Instructions Recorded Omeprazole [PriLOSEC] 40 mg PO BID #60 capsule. 05/16/17 Ondansetron Odt [Zofran ODT] 4 mg PO Q8HR PRN #10 tab 12/11/17 Thiamine [Vitamin B-1] 100 mg PO DAILY@1200 #30 tab 01/02/18 Allergies Allergy/AdvReac Type Severity Reaction Status Date / Time No Known Allergies Allergy Verified 02/09/18 12:11 Review of Systems ROS Statement: Those systems with pertinent positive or pertinent negative responses have been documented in the HPI. ROS Other: All systems not noted in ROS Statement are negative. Constitutional: Denies: fever, chills, night sweats ENT: Denies: ear pain, throat pain Respiratory: Denies: cough, dyspnea Cardiovascular: Denies: chest pain, palpitations Endocrine: Denies: fatigue Gastrointestinal: Denies: abdominal pain, nausea, vomiting, diarrhea, constipation, hematemesis, melena Genitourinary: Denies: urgency, dysuria Musculoskeletal: Reports: back pain (pt states this is chronic, no new changes) , joint swelling, arthralgia Skin: Reports: lesions (abrasion anterior right knee). Denies: rash Neurological: Denies: headache, weakness, numbness, paresthesias, confusion, abnormal gait Past Medical History Past Medical History: GERD/Reflux, GI Bleed, Hyperlipidemia, Liver Disease, Pneumonia, Prostate Disorder Additional Past Medical History / Comment(s): ETOH ABUSE RECURRANT PANCREATITIS , ALCOHOLIC HEPATITIS, NEUROPATHY BILATERAL FEET SINCE BACK SURGERY, hx of CHRONIC URINARY RETENTION DUE TO BACK PROBLEMS-SELF CATHS, CHRONIC L HYDROURETERONEPHROSIS D/T REFLUX, CHRONIC LOW BACK PAIN (HAS STIMULATOR THAT PT STATES DOES NOT WORK), HEMATEMESIS, CHRONIC LOOSE STOOLS. History of Any Multi-Drug Resistant Organisms: None Reported Past Surgical History: Back Surgery, Cholecystectomy, Orthopedic Surgery Additional Past Surgical History / Comment(s): EGDS, colonoscopy, bronchoscopy, BACK surgeries with TITANIUM PLATES MILTON and CAGES, KIDNEY STONES removed per pt, SPINAL CORD STIMULATOR, ISMAEL KNEE ARTHROSCOPIES, PINKY FINGER RT HAND REATTATCHED. recent pancreatic bx at [facility]-pt waiting on results Past Anesthesia/Blood Transfusion Reactions: No Reported Reaction Past Psychological History: Anxiety, Depression Smoking Status: Current every day smoker Past Alcohol Use History: Occasional Past Drug Use History: None Reported - Past Family History Father Family Medical History: Diabetes Mellitus Additional Family Medical History / Comment(s): Mother Family Medical History: Dementia, Hyperlipidemia, Hypertension Additional Family Medical History / Comment(s): Mother is living. General Exam - General Exam Comments Initial Comments: General: The patient is awake and alert, in no distress, and does not appear acutely ill. Eye: Pupils are equal, round and reactive to light, extra-ocular movements are intact. No nystagmus. There is normal conjunctiva bilaterally. No signs of icterus. Cardiovascular: There is a regular rate and rhythm. No murmur, rub or gallop is appreciated. Respiratory: Lungs are clear to auscultation, respirations are non-labored, breath sounds are equal. No wheezes, stridor, rales, or rhonchi. Musculoskeletal: Superficial abrasion to the right anterior knee. Mild soft tissue swelling along lateral aspect of right knee, no erythema b/l or warmth. Full ROM without difficulty both actively and passively at the knees b/l, very mild tenderness with range of motion of the right knee. Strength 5/5 with all motions of the hips, knees and ankles b/l. Sensation intact of the LE equally b/ l. DP pulses equal bilaterally 2+. No foot drop. Extensor mechanism intact. No laxity or creptius noted on exam. No pain with varus and valgus stress. Neurological: A&O x 3. CN II-XII intact, There are no obvious motor or sensory deficits. Coordination appears grossly intact. Speech is normal. Skin: Skin is warm and dry and no rashes or lesions are noted. Psychiatric: Cooperative, appropriate mood & affect, normal judgment. Limitations: no limitations Course Vital Signs 02/09/18 12:09 Temperature 97.8 F Pulse Rate 88 Respiratory 20 Rate Blood Pressure 125/86 O2 Sat by Pulse 98 Oximetry Medical Decision Making - Medical Decision Making Pt given IM toradol for pain mgmt. XR (-). Pt neurovascular intact. No signs of septic joint clinically at this time. Given lateral soft tissue swelling possible ligamentous injury, however I have low suspicion at this time give PE and hx. Pt placed in knee immobilizer and d/c in stable condition with orthopedic f/u and RICE instruction. Pt agreed with plan and d/c in stable condition after discussion with Dr. Huizar. Disposition Clinical Impression: Right knee pain, Swelling of right knee joint Disposition: HOME SELF-CARE Condition: Good Instructions: Knee Sprain (ED) Additional Instructions: Please use medication as discussed. Please follow-up with orthopedic surgery in the next 3-5 days. Please return to emergency room if the symptoms increase or worsen or for any other concerns. Is patient prescribed a controlled substance at d/c from ED?: No Referrals: Kerri Quinones MD [Primary Care Provider] - 1-2 days Terrence Fountain DO [Doctor of Osteopathic Medicine] - 1-2 days Time of Disposition: 13:16
--- NOTE | 2018-02-09 13:06 | XR ---
EXAMINATION TYPE: XR knee complete RT , 3 VIEWS DATE OF EXAM ORDERED: 02/09/2018 HISTORY: Pain. COMPARISON: None. FINDINGS: No fracture, dislocation or joint effusion is seen. IMPRESSION: NO ACUTE OSSEOUS LESION.
== END 2018-02-09 13:32 | disposition home or self-care (01) ==
LOC: EC 12:07
DX: M25.461 Effusion, right knee (principal); F41.9 Anxiety disorder, unspecified; F32.9 Major depressive disorder, single episode, unspecified; F17.200 Nicotine dependence, unspecified, uncomplicated; Z79.899 Other long term (current) drug therapy; Z86.73 Personal history of transient ischemic attack (TIA), and cerebral infarction without residual deficits
CPT/HCPCS: 73562; 99283; 96372; J1885

== ENCOUNTER 2018-02-13 11:25 | Emergency (ER) | payer MEDICARE, OTHER ==
[2018-02-13 11:30] VITALS: BP 140/85; PULSE 69; RESP 16; TEMP 98.2
[2018-02-13] MEDS ORDERED: SODIUM CHLORIDE 0.9% 2,000 ML IV STA (11:37)
[2018-02-13] MEDS ORDERED: ONDANSETRON 4 MG/2 ML VIAL IVP STA (11:37)
[2018-02-13 12:45] LABS: Anisocytosis Slight; Basophils % (A) 0 %; Eosinophils # (A) 0.1 k/uL (0-0.7); Eosinophils % (A) 1 %; HGB 11.9 gm/dL (13.0-17.5); Lymphocytes # (A) 1.3 k/uL (1.0-4.8); Lymphocytes % (A) 15 %; MCH 30.5 pg (25.0-35.0); MCV 92.2 fL (80.0-100.0); Mean Platelet Volume 6.8; Monocytes # (A) 0.5 k/uL (0-1.0); Monocytes % (A) 6 %; Neutrophils # (A) 6.7 k/uL (1.3-7.7); Neutrophils % (A) 77 %; Platelet Count 429 k/uL (150-450); RDW 16.5 % (11.5-15.5); WBC 8.8 k/uL (3.8-10.6)
[2018-02-13] MEDS ORDERED: KETOROLAC 30 MG/ML 1 ML VIAL IVP STA (12:52)
[2018-02-13 12:54] LABS: ALT 15 U/L (21-72); AST 16 U/L (17-59); Albumin 3.4 g/dL (3.5-5.0); Alcohol <10 mg/dL; Alkaline Phosphatase 122 U/L (38-126); Amylase 108 U/L (30-110); Anion Gap 6 mmol/L; Blood Urea Nitrogen 14 mg/dL (9-20); Carbon Dioxide 27 mmol/L (22-30); Chloride 105 mmol/L (98-107); Glucose 103 mg/dL (74-99); Lipase 1222 U/L (23-300); Potassium 4.8 mmol/L (3.5-5.1); Sodium 138 mmol/L (137-145); Total Bilirubin 0.3 mg/dL (0.2-1.3); Total Protein 6.6 g/dL (6.3-8.2)
--- NOTE | 2018-02-13 13:24 | ED ---
Abdominal Pain HPI - General Chief Complaint: Abdominal Pain Stated Complaint: Abd Pain Time Seen by Provider: 02/13/18 11:37 Source: patient, RN notes reviewed Mode of arrival: ambulatory Limitations: no limitations - History of Present Illness Initial Comments: This a 47-year-old male presents emergency Department chief complaint abdominal pain. Patient admits to drinking alcohol yesterday evening at dinner. Patient states that he's had increase abdominal pain, nausea. Patient states he has chronic pancreatitis. He is scheduled for follow-up and repeat biopsies at [facility] on the . Patient denies any chest pain or shortness of breath. Patient has no dysuria no hematuria no diarrhea no constipation. - Related Data Home Medications Medication Instructions Recorded Confirmed traZODone HCL 50 mg PO HS 04/04/17 02/04/18 Magnesium Oxide [Mag-Ox] 200 mg PO DAILY 09/18/17 02/04/18 Tamsulosin HCl [Flomax] 0.4 mg PO DAILY 09/18/17 02/04/18 Lipase/Protease/Amylase [Rebel Belcher 2 cap PO TID-W/MEALS 10/20/17 02/04/18 24,000 Units Capsule] Betamethasone Valerate [Luxiq 1%] 1 applic TOPICAL BID 12/11/17 02/04/18 Diazepam [Valium] 2 mg PO TID PRN 12/11/17 02/04/18 Multivitamins, Thera [Multivitamin 1 tab PO DAILY@1200 01/17/18 02/04/18 (formulary)] Previous Rx's Medication Instructions Recorded Omeprazole [PriLOSEC] 40 mg PO BID #60 capsule. 05/16/17 Ondansetron Odt [Zofran ODT] 4 mg PO Q8HR PRN #10 tab 12/11/17 Thiamine [Vitamin B-1] 100 mg PO DAILY@1200 #30 tab 01/02/18 Allergies Allergy/AdvReac Type Severity Reaction Status Date / Time No Known Allergies Allergy Verified 02/09/18 12:11 Review of Systems ROS Statement: Those systems with pertinent positive or pertinent negative responses have been documented in the HPI. ROS Other: All systems not noted in ROS Statement are negative. Past Medical History Past Medical History: GERD/Reflux, GI Bleed, Hyperlipidemia, Liver Disease, Pneumonia, Prostate Disorder Additional Past Medical History / Comment(s): ETOH ABUSE RECURRANT PANCREATITIS , ALCOHOLIC HEPATITIS, NEUROPATHY BILATERAL FEET SINCE BACK SURGERY, hx of CHRONIC URINARY RETENTION DUE TO BACK PROBLEMS-SELF CATHS, CHRONIC L HYDROURETERONEPHROSIS D/T REFLUX, CHRONIC LOW BACK PAIN (HAS STIMULATOR THAT PT STATES DOES NOT WORK), HEMATEMESIS, CHRONIC LOOSE STOOLS. History of Any Multi-Drug Resistant Organisms: None Reported Past Surgical History: Back Surgery, Cholecystectomy, Orthopedic Surgery Additional Past Surgical History / Comment(s): EGDS, colonoscopy, bronchoscopy, BACK surgeries with TITANIUM PLATES MILTON and CAGES, KIDNEY STONES removed per pt, SPINAL CORD STIMULATOR, ISMAEL KNEE ARTHROSCOPIES, PINKY FINGER RT HAND REATTATCHED. recent pancreatic bx at [facility]-pt waiting on results Past Anesthesia/Blood Transfusion Reactions: No Reported Reaction Past Psychological History: Anxiety, Depression Smoking Status: Current every day smoker Past Alcohol Use History: Occasional Past Drug Use History: None Reported - Past Family History Father Family Medical History: Diabetes Mellitus Additional Family Medical History / Comment(s): Mother Family Medical History: Dementia, Hyperlipidemia, Hypertension Additional Family Medical History / Comment(s): Mother is living. General Exam Limitations: no limitations General appearance: alert, in no apparent distress Head exam: Present: atraumatic, normocephalic, normal inspection Eye exam: Present: normal appearance, PERRL, EOMI. Absent: scleral icterus, conjunctival injection, periorbital swelling ENT exam: Present: normal exam, normal oropharynx, mucous membranes moist Neck exam: Present: normal inspection, full ROM. Absent: tenderness, meningismus, lymphadenopathy Respiratory exam: Present: normal lung sounds bilaterally. Absent: respiratory distress, wheezes, rales, rhonchi, stridor Cardiovascular Exam: Present: regular rate, normal rhythm, normal heart sounds. Absent: systolic murmur, diastolic murmur, rubs, gallop, clicks GI/Abdominal exam: Present: soft, tenderness (Midabdominal tenderness moderate) , normal bowel sounds. Absent: distended, guarding, rebound, rigid Back exam: Absent: CVA tenderness (R), CVA tenderness (L) Skin exam: Present: warm, dry, intact, normal color. Absent: rash Course Vital Signs 02/13/18 11:27 Temperature 98.2 F Pulse Rate 69 Respiratory 16 Rate Blood Pressure 140/85 O2 Sat by Pulse 100 Oximetry Medical Decision Making - Medical Decision Making 47-year-old male present emergency from for abdominal pain. Patient has mild elevation of his lipase secondary to alcohol drinking. Patient does have chronic pancreatitis. Patient is stable for discharge he was hydrated in the emergency department. He has follow-up at [facility] on Sunday. - Lab Data Result diagrams: 02/13/18 12:11 02/13/18 12:11 Lab Results 02/13/18 02/13/18 Range/Units 12:11 12:11 WBC 8.8 (3.8-10.6) k/uL RBC 3.90 L (4.30-5.90) m/uL Hgb 11.9 L (13.0-17.5) gm/dL Hct 36.0 L (39.0-53.0) % MCV 92.2 (80.0-100.0) fL MCH 30.5 (25.0-35.0) pg MCHC 33.0 (31.0-37.0) g/dL RDW 16.5 H (11.5-15.5) % Plt Count 429 (150-450) k/uL Neutrophils % 77 % Lymphocytes % 15 % Monocytes % 6 % Eosinophils % 1 % Basophils % 0 % Neutrophils # 6.7 (1.3-7.7) k/uL Lymphocytes # 1.3 (1.0-4.8) k/uL Monocytes # 0.5 (0-1.0) k/uL Eosinophils # 0.1 (0-0.7) k/uL Basophils # 0.0 (0-0.2) k/uL Anisocytosis Slight Sodium 138 (137-145) mmol/L Potassium 4.8 (3.5-5.1) mmol/L Chloride 105 (98-107) mmol/L Carbon Dioxide 27 (22-30) mmol/L Anion Gap 6 mmol/L BUN 14 (9-20) mg/dL Creatinine 0.64 L (0.66-1.25) mg/dL Est GFR (CKD-EPI)AfAm >90 (>60 ml/min/1.73 sqM) Est GFR (CKD-EPI)NonAf >90 (>60 ml/min/1.73 sqM) Glucose 103 H (74-99) mg/dL Calcium 9.0 (8.4-10.2) mg/dL Total Bilirubin 0.3 (0.2-1.3) mg/dL AST 16 L (17-59) U/L ALT 15 L (21-72) U/L Alkaline Phosphatase 122 (38-126) U/L Total Protein 6.6 (6.3-8.2) g/dL Albumin 3.4 L (3.5-5.0) g/dL Amylase 108 (30-110) U/L Lipase 1222 H (23-300) U/L Serum Alcohol <10 mg/dL Disposition Clinical Impression: Chronic pancreatitis, Abdominal pain, Alcohol abuse Disposition: HOME SELF-CARE Condition: Stable Instructions: Abdominal Pain (ED) Additional Instructions: Please return to the Emergency Department if symptoms worsen or any other concerns. Is patient prescribed a controlled substance at d/c from ED?: No Referrals: Kerri Quinones MD [Primary Care Provider] - 1-2 days Time of Disposition: 13:23
== END 2018-02-13 13:40 | disposition home or self-care (01) ==
LOC: EC 11:25
DX: K86.1 Other chronic pancreatitis (principal); F10.10 Alcohol abuse, uncomplicated; N42.9 Disorder of prostate, unspecified; F32.9 Major depressive disorder, single episode, unspecified; F41.9 Anxiety disorder, unspecified; F17.200 Nicotine dependence, unspecified, uncomplicated; Z79.52 Long term (current) use of systemic steroids; Z79.899 Other long term (current) drug therapy; Z90.49 Acquired absence of other specified parts of digestive tract
CPT/HCPCS: 36415; 80053; 80320; 82150; 83690; 85025; 96361; 96374; 96375; 99284

== ENCOUNTER 2018-02-18 02:02 | Emergency (ER) | payer MEDICARE, OTHER ==
[2018-02-18] MEDS ORDERED: SODIUM CHLORIDE 0.9% 1,000 ML IV STA (02:12)
[2018-02-18] MEDS ORDERED: KETOROLAC 30 MG/ML 1 ML VIAL IVP STA (02:13)
[2018-02-18] MEDS ORDERED: ONDANSETRON 4 MG/2 ML VIAL IVP STA (02:13)
[2018-02-18 02:14] VITALS: RESP 16
[2018-02-18 02:41] LABS: Anisocytosis Slight; Basophils % (A) 0 %; Eosinophils # (A) 0.1 k/uL (0-0.7); Eosinophils % (A) 1 %; HCT 36.1 % (39.0-53.0); HGB 11.2 gm/dL (13.0-17.5); Lymphocytes # (A) 1.2 k/uL (1.0-4.8); Lymphocytes % (A) 15 %; MCV 93.6 fL (80.0-100.0); Mean Platelet Volume 6.7; Monocytes # (A) 0.5 k/uL (0-1.0); Monocytes % (A) 6 %; Neutrophils # (A) 6.1 k/uL (1.3-7.7); Neutrophils % (A) 77 %; Platelet Count 312 k/uL (150-450); RBC 3.85 m/uL (4.30-5.90); RDW 16.4 % (11.5-15.5)
[2018-02-18 02:52] LABS: Albumin 3.2 g/dL (3.5-5.0); Amylase 100 U/L (30-110); Anion Gap 8 mmol/L; Blood Urea Nitrogen 9 mg/dL (9-20); Calcium 8.6 mg/dL (8.4-10.2); Carbon Dioxide 23 mmol/L (22-30); Chloride 110 mmol/L (98-107); Glucose 95 mg/dL (74-99); Lipase 1026 U/L (23-300); Sodium 141 mmol/L (137-145); Total Bilirubin 0.4 mg/dL (0.2-1.3); Total Protein 6.4 g/dL (6.3-8.2)
[2018-02-18 02:57] LABS: ALT 18 U/L (21-72); AST 17 U/L (17-59); Alkaline Phosphatase 118 U/L (38-126)
[2018-02-18] MEDS ORDERED: HYDROcodone/APAP 5-325MG 1 EACH TAB PO STA (03:32)
--- NOTE | 2018-02-18 03:40 | ED ---
Abdominal Pain HPI - General Chief Complaint: Abdominal Pain Stated Complaint: abd pain Time Seen by Provider: 02/18/18 03:04 Source: patient, RN notes reviewed Mode of arrival: ambulatory Limitations: no limitations - History of Present Illness Initial Comments: This is a 47 year old male with history of chronic pancreatitis who presents to the emergency department with chief complaint of abdominal pain. Patient reports worsening of his abdominal pain over the past 2 days. He also reports nausea and vomiting. Denies any fevers or chills, chest pain or shortness of breath, diarrhea. Patient is well-known to this emergency department. He sees Dr. Kellogg, gastroenterology. Patient states that he does have an upcoming appointment with a specialist on February 25. Patient states that he is out of his pain medications at home. - Related Data Home Medications Medication Instructions Recorded Confirmed traZODone HCL 50 mg PO HS 04/04/17 02/04/18 Magnesium Oxide [Mag-Ox] 200 mg PO DAILY 09/18/17 02/04/18 Tamsulosin HCl [Flomax] 0.4 mg PO DAILY 09/18/17 02/04/18 Lipase/Protease/Amylase [Creon Dr 2 cap PO TID-W/MEALS 10/20/17 02/04/18 24,000 Units Capsule] Betamethasone Valerate [Luxiq 1%] 1 applic TOPICAL BID 12/11/17 02/04/18 Diazepam [Valium] 2 mg PO TID PRN 12/11/17 02/04/18 Multivitamins, Thera [Multivitamin 1 tab PO DAILY@1200 01/17/18 02/04/18 (formulary)] Previous Rx's Medication Instructions Recorded Omeprazole [PriLOSEC] 40 mg PO BID #60 capsule. 05/16/17 Ondansetron Odt [Zofran ODT] 4 mg PO Q8HR PRN #10 tab 12/11/17 Thiamine [Vitamin B-1] 100 mg PO DAILY@1200 #30 tab 01/02/18 Allergies Allergy/AdvReac Type Severity Reaction Status Date / Time No Known Allergies Allergy Verified 02/18/18 02:13 Review of Systems ROS Statement: Those systems with pertinent positive or pertinent negative responses have been documented in the HPI. ROS Other: All systems not noted in ROS Statement are negative. Past Medical History Past Medical History: GERD/Reflux, GI Bleed, Hyperlipidemia, Liver Disease, Pneumonia, Prostate Disorder Additional Past Medical History / Comment(s): ETOH ABUSE RECURRANT PANCREATITIS , ALCOHOLIC HEPATITIS, NEUROPATHY BILATERAL FEET SINCE BACK SURGERY, hx of CHRONIC URINARY RETENTION DUE TO BACK PROBLEMS-SELF CATHS, CHRONIC L HYDROURETERONEPHROSIS D/T REFLUX, CHRONIC LOW BACK PAIN (HAS STIMULATOR THAT PT STATES DOES NOT WORK), HEMATEMESIS, CHRONIC LOOSE STOOLS. History of Any Multi-Drug Resistant Organisms: None Reported Past Surgical History: Back Surgery, Cholecystectomy, Orthopedic Surgery Additional Past Surgical History / Comment(s): EGDS, colonoscopy, bronchoscopy, BACK surgeries with TITANIUM PLATES MILTON and CAGES, KIDNEY STONES removed per pt, SPINAL CORD STIMULATOR, ISMAEL KNEE ARTHROSCOPIES, PINKY FINGER RT HAND REATTATCHED. recent pancreatic bx at [facility]-pt waiting on results Past Anesthesia/Blood Transfusion Reactions: No Reported Reaction Past Psychological History: Anxiety, Depression Smoking Status: Current every day smoker Past Alcohol Use History: Occasional Past Drug Use History: None Reported - Past Family History Father Family Medical History: Diabetes Mellitus Additional Family Medical History / Comment(s): Mother Family Medical History: Dementia, Hyperlipidemia, Hypertension Additional Family Medical History / Comment(s): Mother is living. General Exam - General Exam Comments Initial Comments: General: Awake and alert, well-developed; in no apparent distress. Lying on ED stretcher. HEENT: Head atraumatic, normocephalic. Pupils are equal, round and reactive to light. Extraocular movements intact. Oropharynx moist without erythema or exudate. Neck: Supple. Normal ROM. Cardiovascular: Regular rate and rhythm. No murmurs, rubs or gallops. Chest symmetrical. Respiratory: Lungs clear to auscultation bilaterally. No wheezes, rales or rhonchi. Normal respiratory effort with no use of accessory muscles. Abdomen: Soft, non-distended. Mild tenderness on palpation of right upper quadrant and epigastrium. No rigidity, rebound or guarding. Normal bowel sounds in all 4 quadrants. Musculoskeletal: Normal ROM, no tenderness bilateral upper and lower extremities. Ambulating normally. Skin: [place], warm and dry without rashes or lesions. Neurological: Alert and oriented x3. CN II-XII grossly intact. Speech is fluent and answers are appropriate. No focal neuro deficits. Psychiatric: Normal mood and affect. No overt signs of depression or anxiety noted. Limitations: no limitations Course Vital Signs 02/18/18 02:11 Temperature 98.9 F Pulse Rate 77 Respiratory 16 Rate Blood Pressure 157/89 O2 Sat by Pulse 100 Oximetry Medical Decision Making - Medical Decision Making This is a 47-year-old male with history of chronic pancreatitis who presents to the emergency department with chief complaint of abdominal pain. Patient states he feels like he is having a flare of his pancreatitis. He reports increasing abdominal pain over the last 2 days. Patient states he is out of his pain medication at home. On physical examination, there is mild tenderness to the right upper quadrant and epigastrium. Patient's vital signs are stable and he is in no acute distress. CBC is unremarkable. Lipase is at 1026. This is within range of patient's baseline. Patient given fluids, antiemetics and pain medication while in the emergency department. He is in no acute distress and will be discharged home at this time. He is in agreement and voices understanding. All questions were answered. - Lab Data Result diagrams: 02/18/18 02:25 02/18/18 02:25 Lab Results 02/18/18 02/18/18 Range/Units 02:25 02:25 WBC 8.0 (3.8-10.6) k/uL RBC 3.85 L (4.30-5.90) m/uL Hgb 11.2 L (13.0-17.5) gm/dL Hct 36.1 L (39.0-53.0) % MCV 93.6 (80.0-100.0) fL MCH 29.0 (25.0-35.0) pg MCHC 31.0 (31.0-37.0) g/dL RDW 16.4 H (11.5-15.5) % Plt Count 312 (150-450) k/uL Neutrophils % 77 % Lymphocytes % 15 % Monocytes % 6 % Eosinophils % 1 % Basophils % 0 % Neutrophils # 6.1 (1.3-7.7) k/uL Lymphocytes # 1.2 (1.0-4.8) k/uL Monocytes # 0.5 (0-1.0) k/uL Eosinophils # 0.1 (0-0.7) k/uL Basophils # 0.0 (0-0.2) k/uL Anisocytosis Slight Sodium 141 (137-145) mmol/L Potassium 4.0 (3.5-5.1) mmol/L Chloride 110 H (98-107) mmol/L Carbon Dioxide 23 (22-30) mmol/L Anion Gap 8 mmol/L BUN 9 (9-20) mg/dL Creatinine 0.60 L (0.66-1.25) mg/dL Est GFR (CKD-EPI)AfAm >90 (>60 ml/min/1.73 sqM) Est GFR (CKD-EPI)NonAf >90 (>60 ml/min/1.73 sqM) Glucose 95 (74-99) mg/dL Calcium 8.6 (8.4-10.2) mg/dL Total Bilirubin 0.4 (0.2-1.3) mg/dL AST 17 (17-59) U/L ALT 18 L (21-72) U/L Alkaline Phosphatase 118 (38-126) U/L Total Protein 6.4 (6.3-8.2) g/dL Albumin 3.2 L (3.5-5.0) g/dL Amylase 100 (30-110) U/L Lipase 1026 H (23-300) U/L Disposition Clinical Impression: Chronic pancreatitis, Abdominal pain Disposition: HOME SELF-CARE Condition: Good Instructions: Pancreatitis (ED) Additional Instructions: Please follow up with primary care provider within 1-2 days. Return to emergency department if symptoms should worsen or any concerns arise. Is patient prescribed a controlled substance at d/c from ED?: No Referrals: Kerri Quinones MD [Primary Care Provider] - 1-2 days Time of Disposition: 03:39
[2018-02-18 03:47] VITALS: BP 161/91; PULSE 72; TEMP 97.7
== END 2018-02-18 03:56 | disposition home or self-care (01) ==
LOC: EC 02:02
DX: K86.1 Other chronic pancreatitis (principal); F41.9 Anxiety disorder, unspecified; F32.9 Major depressive disorder, single episode, unspecified; F17.200 Nicotine dependence, unspecified, uncomplicated; Z87.442 Personal history of urinary calculi; Z90.49 Acquired absence of other specified parts of digestive tract; Z98.890 Other specified postprocedural states; Z79.52 Long term (current) use of systemic steroids; Z79.899 Other long term (current) drug therapy
CPT/HCPCS: 99284 ×2; 96374 ×2; 96375 ×2; 96361 ×2; 36415; 80053; 80048; 82150; 83690; 85025; G0480; J1200; J2765; J2405; J1885; 80320

== ENCOUNTER 2018-02-18 07:26 | Emergency (ER) | payer MEDICARE, OTHER ==
[2018-02-18 07:30] VITALS: TEMP 98.3
[2018-02-18] MEDS ORDERED: KETOROLAC 30 MG/ML 1 ML VIAL IVP STA (07:44)
[2018-02-18] MEDS ORDERED: SODIUM CHLORIDE 0.9% 1,000 ML IV STA (07:44)
[2018-02-18] MEDS ORDERED: diphenhydrAMINE 50 MG/ML 1 ML VIAL IVP STA (07:44)
[2018-02-18] MEDS ORDERED: METOCLOPRAMIDE 5 MG/ML 2 ML VIAL IVP STA (07:44)
--- NOTE | 2018-02-18 07:49 | ED ---
Abdominal Pain HPI - General Chief Complaint: Abdominal Pain Stated Complaint: Abdominal pain Time Seen by Provider: 02/18/18 07:36 Source: patient, RN notes reviewed, old records reviewed Mode of arrival: wheelchair Limitations: no limitations - History of Present Illness Initial Comments: Patient is a 47-year-old male well-known to this emergency department today with chief complaint of acute exacerbation of chronic abdominal pain. He has a history of chronic pancreatitis. Patient has had no fevers or chills. He was here 5 hours ago for evaluation. Patient states that he went home and continued having nausea and vomiting and worsening pain. Patient states he has an appointment with a specialist on February 25, at [facility]. - Related Data Home Medications Medication Instructions Recorded Confirmed traZODone HCL 50 mg PO HS 04/04/17 02/18/18 Magnesium Oxide [Mag-Ox] 200 mg PO DAILY 09/18/17 02/18/18 Tamsulosin HCl [Flomax] 0.4 mg PO DAILY 09/18/17 02/18/18 Lipase/Protease/Amylase [Creon 2 cap PO TID-W/MEALS 10/20/17 02/18/18 24,000 Units Capsule] Betamethasone Valerate [Luxiq 1%] 1 applic TOPICAL BID 12/11/17 02/18/18 Diazepam [Valium] 2 mg PO TID PRN 12/11/17 02/18/18 Multivitamins, Thera [Multivitamin 1 tab PO DAILY@1200 01/17/18 02/18/18 (formulary)] Previous Rx's Medication Instructions Recorded Omeprazole [PriLOSEC] 40 mg PO BID #60 capsule. 05/16/17 Ondansetron Odt [Zofran ODT] 4 mg PO Q8HR PRN #10 tab 12/11/17 Thiamine [Vitamin B-1] 100 mg PO DAILY@1200 #30 tab 01/02/18 Metoclopramide [Reglan] 10 mg PO TID #12 tab 02/18/18 Omeprazole [PriLOSEC] 40 mg PO DAILY #20 capsule. 02/18/18 Allergies Allergy/AdvReac Type Severity Reaction Status Date / Time No Known Allergies Allergy Verified 02/18/18 08:10 Review of Systems ROS Statement: Those systems with pertinent positive or pertinent negative responses have been documented in the HPI. ROS Other: All systems not noted in ROS Statement are negative. Past Medical History Past Medical History: GERD/Reflux, GI Bleed, Hyperlipidemia, Liver Disease, Pneumonia, Prostate Disorder Additional Past Medical History / Comment(s): ETOH ABUSE RECURRANT PANCREATITIS , ALCOHOLIC HEPATITIS, NEUROPATHY BILATERAL FEET SINCE BACK SURGERY, hx of CHRONIC URINARY RETENTION DUE TO BACK PROBLEMS-SELF CATHS, CHRONIC L HYDROURETERONEPHROSIS D/T REFLUX, CHRONIC LOW BACK PAIN (HAS STIMULATOR THAT PT STATES DOES NOT WORK), HEMATEMESIS, CHRONIC LOOSE STOOLS. History of Any Multi-Drug Resistant Organisms: None Reported Past Surgical History: Back Surgery, Cholecystectomy, Orthopedic Surgery Additional Past Surgical History / Comment(s): EGDS, colonoscopy, bronchoscopy, BACK surgeries with TITANIUM PLATES MILTON and CAGES, KIDNEY STONES removed per pt, SPINAL CORD STIMULATOR, ISMAEL KNEE ARTHROSCOPIES, PINKY FINGER RT HAND REATTATCHED. recent pancreatic bx at [facility]-pt waiting on results Past Anesthesia/Blood Transfusion Reactions: No Reported Reaction Past Psychological History: Anxiety, Depression Smoking Status: Current every day smoker Past Alcohol Use History: Occasional Past Drug Use History: None Reported - Past Family History Father Family Medical History: Diabetes Mellitus Additional Family Medical History / Comment(s): Mother Family Medical History: Dementia, Hyperlipidemia, Hypertension Additional Family Medical History / Comment(s): Mother is living. General Exam - General Exam Comments Initial Comments: 47-year-old male. Alert and oriented. No acute distress. Limitations: no limitations General appearance: alert, in no apparent distress Head exam: Present: atraumatic, normocephalic, normal inspection Eye exam: Present: normal appearance, PERRL, EOMI. Absent: scleral icterus, conjunctival injection, periorbital swelling ENT exam: Present: normal exam, mucous membranes moist Neck exam: Present: normal inspection. Absent: tenderness, meningismus, lymphadenopathy Respiratory exam: Present: normal lung sounds bilaterally. Absent: respiratory distress, wheezes, rales, rhonchi, stridor Cardiovascular Exam: Present: regular rate, normal rhythm, normal heart sounds. Absent: systolic murmur, diastolic murmur, rubs, gallop, clicks GI/Abdominal exam: Present: soft, tenderness (Right upper quadrant and left upper quadrant tenderness.), normal bowel sounds. Absent: distended, guarding, rebound, rigid Extremities exam: Present: normal inspection, full ROM, normal capillary refill. Absent: tenderness, pedal edema, joint swelling, calf tenderness Back exam: Present: normal inspection Neurological exam: Present: alert, oriented X3, CN II-XII intact Psychiatric exam: Present: normal affect, normal mood Skin exam: Present: warm, dry, intact, normal color. Absent: rash Course Vital Signs 02/18/18 07:27 Temperature 98.3 F Pulse Rate 64 Respiratory 18 Rate Blood Pressure 164/85 O2 Sat by Pulse 100 Oximetry Medical Decision Making - Medical Decision Making 47-year-old male wants emergency department today presents with chronic abdominal pain. He has had vomiting episodes. Patient denies any fluids, Toradol Reglan and Benadryl. This time patient's labwork was reviewed. He was here 3 hours ago. Lipase is slightly increased from that time. It is 1300. He does have a slight evidence of white blood cell count increase. He has no fever. Vital signs stable. He has had no active vomiting emergency department. I discussed that at this time Patient needs to up with his primary care provider this week. I discussed that we'll not give any further narcotic pain medications. Patient understands treatment plan will comply. Return parameters were discussed. - Lab Data Result diagrams: 02/18/18 07:50 02/18/18 07:50 Lab Results 02/18/18 02/18/18 Range/Units 07:50 07:50 WBC 11.5 H (3.8-10.6) k/uL RBC 3.79 L (4.30-5.90) m/uL Hgb 11.4 L (13.0-17.5) gm/dL Hct 35.1 L (39.0-53.0) % MCV 92.6 (80.0-100.0) fL MCH 30.0 (25.0-35.0) pg MCHC 32.3 (31.0-37.0) g/dL RDW 16.4 H (11.5-15.5) % Plt Count 319 (150-450) k/uL Neutrophils % 88 % Lymphocytes % 5 % Monocytes % 5 % Eosinophils % 1 % Basophils % 0 % Neutrophils # 10.1 H (1.3-7.7) k/uL Lymphocytes # 0.6 L (1.0-4.8) k/uL Monocytes # 0.6 (0-1.0) k/uL Eosinophils # 0.1 (0-0.7) k/uL Basophils # 0.0 (0-0.2) k/uL Anisocytosis Slight Sodium 142 (137-145) mmol/L Potassium 4.0 (3.5-5.1) mmol/L Chloride 110 H (98-107) mmol/L Carbon Dioxide 24 (22-30) mmol/L Anion Gap 8 mmol/L BUN 10 (9-20) mg/dL Creatinine 0.63 L (0.66-1.25) mg/dL Est GFR (CKD-EPI)AfAm >90 (>60 ml/min/1.73 sqM) Est GFR (CKD-EPI)NonAf >90 (>60 ml/min/1.73 sqM) Glucose 112 H (74-99) mg/dL Calcium 8.5 (8.4-10.2) mg/dL Amylase 160 H (30-110) U/L Lipase 1358 H (23-300) U/L Serum Alcohol <10 mg/dL Disposition Clinical Impression: Chronic pancreatitis Disposition: HOME SELF-CARE Condition: Good Instructions: Pancreatitis (ED) Additional Instructions: Patient advised to follow-up with primary care physician. Return to emergency department if any alarming signs or symptoms occur. Prescriptions: Metoclopramide [Reglan] 10 mg PO TID #12 tab Omeprazole [PriLOSEC] 40 mg PO DAILY #20 capsule.dr Is patient prescribed a controlled substance at d/c from ED?: No Referrals: Kerri Quinones MD [Primary Care Provider] - 1-2 days Time of Disposition: 09:28
[2018-02-18 08:43] LABS: Anisocytosis Slight; Basophils % (A) 0 %; Eosinophils # (A) 0.1 k/uL (0-0.7); Eosinophils % (A) 1 %; HCT 35.1 % (39.0-53.0); HGB 11.4 gm/dL (13.0-17.5); Lymphocytes # (A) 0.6 k/uL (1.0-4.8); Lymphocytes % (A) 5 %; MCHC 32.3 g/dL (31.0-37.0); MCV 92.6 fL (80.0-100.0); Mean Platelet Volume 7.5; Monocytes # (A) 0.6 k/uL (0-1.0); Monocytes % (A) 5 %; Neutrophils # (A) 10.1 k/uL (1.3-7.7); Neutrophils % (A) 88 %; Platelet Count 319 k/uL (150-450); RBC 3.79 m/uL (4.30-5.90); RDW 16.4 % (11.5-15.5); WBC 11.5 k/uL (3.8-10.6)
[2018-02-18 08:52] LABS: Alcohol <10 mg/dL; Amylase 160 U/L (30-110); Anion Gap 8 mmol/L; Blood Urea Nitrogen 10 mg/dL (9-20); Calcium 8.5 mg/dL (8.4-10.2); Carbon Dioxide 24 mmol/L (22-30); Chloride 110 mmol/L (98-107); Glucose 112 mg/dL (74-99); Lipase 1358 U/L (23-300); Sodium 142 mmol/L (137-145)
[2018-02-18 09:52] VITALS: BP 157/80; PULSE 68; RESP 16
== END 2018-02-18 09:50 | disposition home or self-care (01) ==
LOC: EC 07:26
DX: K86.1 Other chronic pancreatitis (principal); F41.9 Anxiety disorder, unspecified; F32.9 Major depressive disorder, single episode, unspecified; F17.200 Nicotine dependence, unspecified, uncomplicated; Z87.442 Personal history of urinary calculi; Z87.19 Personal history of other diseases of the digestive system; Z90.49 Acquired absence of other specified parts of digestive tract; Z98.890 Other specified postprocedural states; Z79.52 Long term (current) use of systemic steroids; Z79.899 Other long term (current) drug therapy
CPT/HCPCS: 36415; 80048; 80320; 82150; 83690; 85025; 96361; 96374; 96375; 99284

== ENCOUNTER 2018-02-21 22:59 | Inpatient (IN) | payer MEDICARE, OTHER ==
[2018-02-21] MEDS ORDERED: SODIUM CHLORIDE 0.9% 1,000 ML IV STA ×3 (23:54)
[2018-02-21] MEDS ORDERED: diphenhydrAMINE 50 MG/ML 1 ML VIAL IVP STA (23:54)
[2018-02-21] MEDS ORDERED: HYDROmorphone 1 MG/ML 1 ML SYRINGE IVP STA (23:54)
[2018-02-21] MEDS ORDERED: SODIUM CHLORIDE 0.9% 500 ML IV STA ×2 (23:54)
[2018-02-21] MEDS ORDERED: PANTOPRAZOLE 40 MG/10 ML VIAL IVP STA (23:54)
[2018-02-21] MEDS ORDERED: ONDANSETRON 4 MG/2 ML VIAL IVP STA ×2 (23:54)
--- NOTE | 2018-02-22 00:32 | ED ---
General Adult HPI - General Chief complaint: Nausea/Vomiting/Diarrhea Stated complaint: Abdominal Pain Time Seen by Provider: 02/21/18 23:20 Source: patient, RN notes reviewed, old records reviewed Mode of arrival: wheelchair Limitations: no limitations - History of Present Illness Initial comments: This is a 47-year-old male the ER for evasive Doppler pain severe abdominal pain , patient states feels just like prior pancreatitis epigastric abdominal pain with radiation to his back. Patient is well-known to this Hospital he does have history of hepatitis states he may have recent diagnosis of pancreatic CVA. Patient states pain is improved with pain medication but he is unable to control his pain at home. Positive nausea decreased appetite and dehydration with weight loss. Patient denies fevers no diarrhea MD Complaint: Abdominal pain -: days(s) Location: abdomen Radiation: back Severity scale (1-10): 10 Quality: stabbing, aching, constant Consistency: constant Improves with: none Worsens with: eating Associated Symptoms: loss of appetite, nausea/vomiting Treatments Prior to Arrival: none - Related Data Home Medications Medication Instructions Recorded Confirmed traZODone HCL 50 mg PO HS 04/04/17 02/21/18 Magnesium Oxide [Mag-Ox] 200 mg PO DAILY 09/18/17 02/21/18 Tamsulosin HCl [Flomax] 0.4 mg PO DAILY 09/18/17 02/21/18 Lipase/Protease/Amylase [Rebel Belcher 2 cap PO TID-W/MEALS 10/20/17 02/21/18 24,000 Units Capsule] Betamethasone Valerate [Luxiq 1%] 1 applic TOPICAL BID 12/11/17 02/21/18 Diazepam [Valium] 2 mg PO TID PRN 12/11/17 02/21/18 Multivitamins, Thera [Multivitamin 1 tab PO DAILY@1200 01/17/18 02/21/18 (formulary)] Previous Rx's Medication Instructions Recorded Omeprazole [PriLOSEC] 40 mg PO BID #60 capsule. 05/16/17 Ondansetron Odt [Zofran ODT] 4 mg PO Q8HR PRN #10 tab 12/11/17 Thiamine [Vitamin B-1] 100 mg PO DAILY@1200 #30 tab 01/02/18 Metoclopramide [Reglan] 10 mg PO TID #12 tab 02/18/18 Allergies Allergy/AdvReac Type Severity Reaction Status Date / Time No Known Allergies Allergy Verified 02/21/18 23:22 Review of Systems ROS Statement: Those systems with pertinent positive or pertinent negative responses have been documented in the HPI. ROS Other: All systems not noted in ROS Statement are negative. Past Medical History Past Medical History: GERD/Reflux, GI Bleed, Hyperlipidemia, Liver Disease, Pneumonia, Prostate Disorder Additional Past Medical History / Comment(s): ETOH ABUSE RECURRANT PANCREATITIS , ALCOHOLIC HEPATITIS, NEUROPATHY BILATERAL FEET SINCE BACK SURGERY, hx of CHRONIC URINARY RETENTION DUE TO BACK PROBLEMS-SELF CATHS, CHRONIC L HYDROURETERONEPHROSIS D/T REFLUX, CHRONIC LOW BACK PAIN (HAS STIMULATOR THAT PT STATES DOES NOT WORK), HEMATEMESIS, CHRONIC LOOSE STOOLS. History of Any Multi-Drug Resistant Organisms: None Reported Past Surgical History: Back Surgery, Cholecystectomy, Orthopedic Surgery Additional Past Surgical History / Comment(s): EGDS, colonoscopy, bronchoscopy, BACK surgeries with TITANIUM PLATES MILTON and CAGES, KIDNEY STONES removed per pt, SPINAL CORD STIMULATOR, ISMAEL KNEE ARTHROSCOPIES, PINKY FINGER RT HAND REATTATCHED. recent pancreatic bx at [facility]-pt waiting on results Past Anesthesia/Blood Transfusion Reactions: No Reported Reaction Past Psychological History: Anxiety, Depression Smoking Status: Current every day smoker Past Alcohol Use History: Occasional Past Drug Use History: None Reported - Past Family History Father Family Medical History: Diabetes Mellitus Additional Family Medical History / Comment(s): Mother Family Medical History: Dementia, Hyperlipidemia, Hypertension Additional Family Medical History / Comment(s): Mother is living. General Exam Limitations: no limitations General appearance: alert, in no apparent distress Head exam: Present: atraumatic, normocephalic, normal inspection Eye exam: Present: normal appearance, PERRL, EOMI. Absent: scleral icterus, conjunctival injection, periorbital swelling ENT exam: Present: normal exam, mucous membranes dry Neck exam: Present: normal inspection. Absent: tenderness, meningismus, lymphadenopathy Respiratory exam: Present: normal lung sounds bilaterally. Absent: respiratory distress, wheezes, rales, rhonchi, stridor Cardiovascular Exam: Present: regular rate, normal rhythm, normal heart sounds. Absent: systolic murmur, diastolic murmur, rubs, gallop, clicks GI/Abdominal exam: Present: soft, tenderness, guarding (Voluntary), normal bowel sounds. Absent: distended, rebound, rigid Extremities exam: Present: normal inspection, full ROM, normal capillary refill. Absent: tenderness, pedal edema, joint swelling, calf tenderness Back exam: Present: normal inspection Neurological exam: Present: alert, oriented X3, CN II-XII intact Psychiatric exam: Present: normal affect, normal mood Skin exam: Present: warm, dry, intact, normal color. Absent: rash Course Vital Signs 02/21/18 02/22/18 02/22/18 23:10 00:52 03:05 Temperature 98.3 F Pulse Rate 81 85 99 Respiratory 16 16 18 Rate Blood Pressure 146/85 162/98 157/97 O2 Sat by Pulse 100 100 100 Oximetry - Reevaluation(s) Reevaluation #1: 02/22/18 00:31 Medical records thoroughly reviewed EKG Findings - EKG Comments: EKG Findings:: EKG shows normal sinus rhythm rate of 89, CO 156, QRS 70, QTc 472 Medical Decision Making - Medical Decision Making 47-year-old male the ER for evaluation of bowel pain severe bowel pain positive pancreatitis increase in lipase. Patient will be admitted for IV hydration and by mouth and pain control - Lab Data Result diagrams: 02/22/18 00:25 02/22/18 00:25 Lab Results 02/22/18 02/22/18 02/22/18 Range/Units 00:25 00:25 00:25 WBC 16.0 H (3.8-10.6) k/uL RBC 3.82 L (4.30-5.90) m/uL Hgb 11.2 L (13.0-17.5) gm/dL Hct 35.4 L (39.0-53.0) % MCV 92.6 (80.0-100.0) fL MCH 29.2 (25.0-35.0) pg MCHC 31.5 (31.0-37.0) g/dL RDW 16.4 H (11.5-15.5) % Plt Count 436 (150-450) k/uL Neutrophils % 90 % Lymphocytes % 5 % Monocytes % 4 % Eosinophils % 1 % Basophils % 0 % Neutrophils # 14.3 H (1.3-7.7) k/uL Lymphocytes # 0.8 L (1.0-4.8) k/uL Monocytes # 0.7 (0-1.0) k/uL Eosinophils # 0.1 (0-0.7) k/uL Basophils # 0.0 (0-0.2) k/uL Anisocytosis Slight Sodium 142 (137-145) mmol/L Potassium 4.1 (3.5-5.1) mmol/L Chloride 111 H (98-107) mmol/L Carbon Dioxide 22 (22-30) mmol/L Anion Gap 9 mmol/L BUN 11 (9-20) mg/dL Creatinine 0.51 L (0.66-1.25) mg/dL Est GFR (CKD-EPI)AfAm >90 (>60 ml/min/1.73 sqM) Est GFR (CKD-EPI)NonAf >90 (>60 ml/min/1.73 sqM) Glucose 98 (74-99) mg/dL Plasma Lactic Acid Bandar (0.7-2.0) mmol/L Calcium 8.5 (8.4-10.2) mg/dL Phosphorus 3.6 (2.5-4.5) mg/dL Magnesium 1.8 (1.6-2.3) mg/dL Total Bilirubin 0.5 (0.2-1.3) mg/dL AST 25 (17-59) U/L ALT 11 L (21-72) U/L Alkaline Phosphatase 120 (38-126) U/L Total Creatine Kinase 122 (55-170) U/L CK-MB (CK-2) 2.0 (0.0-2.4) ng/mL CK-MB (CK-2) Rel Index 1.6 Total Protein 6.6 (6.3-8.2) g/dL Albumin 3.3 L (3.5-5.0) g/dL Lipase 1867 H (23-300) U/L 02/22/18 Range/Units 00:25 WBC (3.8-10.6) k/uL RBC (4.30-5.90) m/uL Hgb (13.0-17.5) gm/dL Hct (39.0-53.0) % MCV (80.0-100.0) fL MCH (25.0-35.0) pg MCHC (31.0-37.0) g/dL RDW (11.5-15.5) % Plt Count (150-450) k/uL Neutrophils % % Lymphocytes % % Monocytes % % Eosinophils % % Basophils % % Neutrophils # (1.3-7.7) k/uL Lymphocytes # (1.0-4.8) k/uL Monocytes # (0-1.0) k/uL Eosinophils # (0-0.7) k/uL Basophils # (0-0.2) k/uL Anisocytosis Sodium (137-145) mmol/L Potassium (3.5-5.1) mmol/L Chloride (98-107) mmol/L Carbon Dioxide (22-30) mmol/L Anion Gap mmol/L BUN (9-20) mg/dL Creatinine (0.66-1.25) mg/dL Est GFR (CKD-EPI)AfAm (>60 ml/min/1.73 sqM) Est GFR (CKD-EPI)NonAf (>60 ml/min/1.73 sqM) Glucose (74-99) mg/dL Plasma Lactic Acid Bandar 1.7 (0.7-2.0) mmol/L Calcium (8.4-10.2) mg/dL Phosphorus (2.5-4.5) mg/dL Magnesium (1.6-2.3) mg/dL Total Bilirubin (0.2-1.3) mg/dL AST (17-59) U/L ALT (21-72) U/L Alkaline Phosphatase (38-126) U/L Total Creatine Kinase (55-170) U/L CK-MB (CK-2) (0.0-2.4) ng/mL CK-MB (CK-2) Rel Index Total Protein (6.3-8.2) g/dL Albumin (3.5-5.0) g/dL Lipase (23-300) U/L Disposition Clinical Impression: Abdominal pain, Acute on chronic pancreatitis Disposition: ADMITTED IP TO THIS HOSP Condition: Fair Is patient prescribed a controlled substance at d/c from ED?: No
[2018-02-22 00:38] LABS: Anisocytosis Slight; Basophils % (A) 0 %; Eosinophils # (A) 0.1 k/uL (0-0.7); Eosinophils % (A) 1 %; HCT 35.4 % (39.0-53.0); HGB 11.2 gm/dL (13.0-17.5); Lymphocytes # (A) 0.8 k/uL (1.0-4.8); Lymphocytes % (A) 5 %; MCH 29.2 pg (25.0-35.0); MCHC 31.5 g/dL (31.0-37.0); MCV 92.6 fL (80.0-100.0); Mean Platelet Volume 6.8; Monocytes # (A) 0.7 k/uL (0-1.0); Monocytes % (A) 4 %; Neutrophils # (A) 14.3 k/uL (1.3-7.7); Neutrophils % (A) 90 %; Platelet Count 436 k/uL (150-450); RBC 3.82 m/uL (4.30-5.90); RDW 16.4 % (11.5-15.5)
[2018-02-22 00:52] LABS: ALT 11 U/L (21-72); AST 25 U/L (17-59); Albumin 3.3 g/dL (3.5-5.0); Alkaline Phosphatase 120 U/L (38-126); Anion Gap 9 mmol/L; Blood Urea Nitrogen 11 mg/dL (9-20); Calcium 8.5 mg/dL (8.4-10.2); Carbon Dioxide 22 mmol/L (22-30); Chloride 111 mmol/L (98-107); Glucose 98 mg/dL (74-99); Lipase 1867 U/L (23-300); Magnesium 1.8 mg/dL (1.6-2.3); Phosphorus 3.6 mg/dL (2.5-4.5); Sodium 142 mmol/L (137-145); Total Bilirubin 0.5 mg/dL (0.2-1.3); Total Protein 6.6 g/dL (6.3-8.2)
[2018-02-22 00:58] LABS: Potassium 4.1 mmol/L (3.5-5.1)
[2018-02-22] MEDS ORDERED: MORPHINE SULFATE 4 MG/ML SYRINGE IVP STA (01:02)
[2018-02-22] MEDS ORDERED: SODIUM CHLORIDE 0.9% 1,000 ML IV ONE (01:02)
[2018-02-22] MEDS: BUTALB/APAP/CAFF 50-325-40MG TAB PO PRN ×3 (05:35→15:34)
[2018-02-22] MEDS: ONDANSETRON 4 MG/2 ML VIAL IVP PRN ×3 (07:23→19:32)
[2018-02-22] MEDS: MORPHINE SULFATE 4 MG/ML SYRINGE IVP PRN ×3 (07:23→19:33)
[2018-02-22] MEDS: ENOXAPARIN 40 MG/0.4 ML SYRINGE SQ SCH (10:43)
[2018-02-22] MEDS: SODIUM CHLORIDE 0.9% 1,000 ML IV SCH ×2 (10:44→19:39)
[2018-02-22] MEDS ORDERED: TEMAZEPAM 15 MG CAP PO PRN (17:20)
[2018-02-22] MEDS ORDERED: HYDROcodone/APAP 5-325MG 1 EACH TAB PO PRN (17:20)
[2018-02-22] MEDS: LIPASE 5,000/PROTEASE 17,000/AMYLASE 24,000 PO SCH (17:32)
--- NOTE | 2018-02-22 18:38 | HP ---
HISTORY AND PHYSICAL DATE OF SERVICE: 02/22/2018 CHIEF COMPLAINT: Abdominal pain and vomiting. HISTORY OF PRESENT ILLNESS: This 47-year-old gentleman with a past medical history significant for ETOH, history of pancreatitis, history of GI bleed, hyperlipidemia, history of pneumonia, history of prostate disorder, history of back surgery, anxiety, depression, being followed by Dr. Kerri Quinones in the outpatient setting, was complaining of nausea, vomiting and abdominal pain situated in the epigastrium and radiated to the back, which is similar to pancreatitis episodes the patient previously had. The patient also had an appointment in [facility] for some evaluations early next week. There is no history of any fever, rigor or chills. No history of headache, loss of consciousness, seizures. The patient apparently was evaluated for pancreatic cancer also. The details are not available at this time. Currently lipase is 1867. PAST MEDICAL HISTORY: 1. History of GI bleed. 2. History of hypertension. 3. Hyperlipidemia. 4. History of pancreatitis. 5. History of significant ETOH. 6. Anxiety. 7. Depression. MEDICATIONS PRIOR TO ADMISSION: 1. Trazodone 50 mg p.o. at bedtime. 2. Vitamin B1 100 mg p.o. daily. 3. Flomax 0.4 daily. 4. Zofran 4 mg q.8 p.r.n. 5. Prilosec 40 mg p.o. b.i.d. 6. Multivitamins 1 p.o. daily. 7. Reglan 10 mg t.i.d. 8. Magnesium oxide 200 mg p.o. daily. 9. Creon 2 capsules with meals. 10.Valium 2 mg t.i.d. p.r.n. 11.Betamethasone 1 application b.i.d. ALLERGIES: NONE. FAMILY HISTORY: History of diabetes mellitus in the family. SOCIAL HISTORY: History of alcohol and history of smoking. REVIEW OF SYSTEMS: ENT: No diminished hearing. No diminished vision. CARDIOVASCULAR SYSTEM: No angina, palpitations. RESPIRATORY SYSTEM: As mentioned earlier. GI: As mentioned earlier. : No dysuria or retention. NERVOUS SYSTEM: No numbness, weakness. ALLERGY/IMMUNOLOGY: No asthma, hayfever. MUSCULOSKELETAL: As mentioned earlier. HEMATOLOGY/ONCOLOGY: No history of anemia. ENDOCRINE: No history of diabetes, hypothyroidism. CONSTITUTIONAL: As mentioned earlier. DERMATOLOGY: Negative. RHEUMATOLOGY: Negative. PSYCHIATRY: As mentioned earlier. PHYSICAL EXAMINATION: Patient is alert and oriented x3. Pulse is 79, blood pressure 148/91, respiration 17, temperature 98.8, pulse ox 100% on room air. HEENT: Conjunctivae normal. Oral mucosa moist. NECK: No jugular venous distention. No carotid bruit. No lymph node enlargement. CARDIOVASCULAR SYSTEM: S1, S2 muffled. RESPIRATORY SYSTEM: Breath sounds diminished at the bases. No rhonchi. No crackles. ABDOMEN: Soft. Mild diffuse tenderness in the epigastrium. No guarding. No mass palpable. LEGS: No edema. No swelling. NERVOUS SYSTEM: Higher functions as mentioned earlier. Moves all 4 limbs. No focal motor or sensory deficit. LYMPHATICS: No lymph node palpable in neck, axillae or groin. SKIN: No ulcer, rash, bleeding. LABS: WBC 16, hemoglobin 11.2, sodium 142, potassium 4.1. Lipase 1867. ASSESSMENT: 1. Acute pancreatitis with acute on chronic pancreatitis. 2. History of ethanol abuse. 3. Gastroesophageal reflux disease. 4. History of chronic liver disease. 5. History of bilateral peripheral neuropathy. 6. Chronic urinary tract infections. 7. Self-catheterization. 8. Chronic left hydronephrosis due to reflux. 9. Chronic low back pain with stimulator placement. 10.Chronic loose stools. 11.History of nicotine dependence. 12.Increased white count. RECOMMENDATIONS AND DISCUSSION: In this 47-year-old gentleman who presented with multiple complex medical issues, we will monitor the patient closely. Symptomatic treatment. Otherwise, we will keep the patient n.p.o., advance the diet once the patient is symptomatically better. Repeat labs. Guarded prognosis. Further recommendations to follow. See orders for further details. MMODL / IJN: [id number] /
[2018-02-22 19:09] LABS: INR 1.1 (<1.2); Prothrombin Time 11.1 sec (9.0-12.0)
[2018-02-22 19:25] LABS: Appearance,Urine Clear (Clear); Bilirubin,Urine Negative (Negative); Blood,Urine Negative (Negative); Budding Yeast,Urine Many /hpf; Color,Urine Yellow; Glucose,Urine (UA) Negative (Negative); Ketones,Urine Trace (Negative); Leukocyte Esterase,Urine Moderate (Negative); Mucus,Urine Rare /hpf; Nitrite,Urine Negative (Negative); Protein,Urine Negative (Negative); RBC,Urine 35 /hpf (0-5); Specific Gravity,Urine 1.013 (1.001-1.035); WBC,Urine 17 /hpf (0-5)
[2018-02-22] MEDS: BETAMETHASONE VALERATE TOPICAL SCH (20:39)
[2018-02-22] MEDS: traZODone HCL 50 MG TAB PO SCH (20:43)
[2018-02-22] MEDS: METOCLOPRAMIDE 10 MG TAB PO SCH (20:43)
[2018-02-22] MEDS: NICOTINE 21MG/24HR PATCH TRANSDERM SCH (20:43)
[2018-02-22] MEDS: PANTOPRAZOLE 40 MG/10 ML VIAL IVP SCH (20:45)
[2018-02-22] MEDS: DIAZEPAM 2 MG TAB PO PRN (20:45)
[2018-02-22] MEDS ORDERED: NON-FORMULARY DRUG (Omeprazole 40 MG) PO SCH (21:00)
[2018-02-23] MEDS: MORPHINE SULFATE 4 MG/ML SYRINGE IVP PRN ×5 (01:00→23:23)
[2018-02-23] MEDS: ONDANSETRON 4 MG/2 ML VIAL IVP PRN ×3 (01:00→12:08)
[2018-02-23] MEDS: BUTALB/APAP/CAFF 50-325-40MG TAB PO PRN ×2 (02:58→16:28)
[2018-02-23] MEDS: ENOXAPARIN 40 MG/0.4 ML SYRINGE SQ SCH (08:52)
[2018-02-23] MEDS: TAMSULOSIN 0.4 MG CAP.ER.24H PO SCH (08:52)
[2018-02-23] MEDS: NICOTINE 21MG/24HR PATCH TRANSDERM SCH (08:52)
[2018-02-23] MEDS: METOCLOPRAMIDE 10 MG TAB PO SCH ×3 (08:52→20:03)
[2018-02-23] MEDS: PANTOPRAZOLE 40 MG/10 ML VIAL IVP SCH ×2 (08:52→20:02)
[2018-02-23] MEDS: MAGNESIUM OXIDE 400 MG TAB PO SCH (08:53)
[2018-02-23] MEDS: BETAMETHASONE VALERATE TOPICAL SCH ×2 (08:53→20:01)
[2018-02-23] MEDS: DIAZEPAM 2 MG TAB PO PRN ×2 (08:54→20:06)
[2018-02-23] MEDS: LIPASE 5,000/PROTEASE 17,000/AMYLASE 24,000 PO SCH (08:59)
[2018-02-23 09:33] LABS: Anisocytosis Slight; Basophils % (A) 0 %; Eosinophils # (A) 0.1 k/uL (0-0.7); Eosinophils % (A) 1 %; HCT 30.7 % (39.0-53.0); HGB 10.5 gm/dL (13.0-17.5); Lymphocytes # (A) 0.7 k/uL (1.0-4.8); Lymphocytes % (A) 9 %; MCH 31.4 pg (25.0-35.0); MCHC 34.2 g/dL (31.0-37.0); MCV 91.8 fL (80.0-100.0); Mean Platelet Volume 6.9; Monocytes # (A) 0.3 k/uL (0-1.0); Monocytes % (A) 4 %; Neutrophils # (A) 6.5 k/uL (1.3-7.7); Neutrophils % (A) 86 %; Platelet Count 246 k/uL (150-450); RBC 3.34 m/uL (4.30-5.90); RDW 16.2 % (11.5-15.5); WBC 7.6 k/uL (3.8-10.6)
[2018-02-23 09:57] LABS: ALT 39 U/L (21-72); AST 69 U/L (17-59); Albumin 2.7 g/dL (3.5-5.0); Alkaline Phosphatase 347 U/L (38-126); Amylase 56 U/L (30-110); Anion Gap 8 mmol/L; Blood Urea Nitrogen 8 mg/dL (9-20); Calcium 8.1 mg/dL (8.4-10.2); Carbon Dioxide 24 mmol/L (22-30); Chloride 105 mmol/L (98-107); Cholesterol 122 mg/dL (<200); Glucose 90 mg/dL (74-99); HDL Cholesterol 87 mg/dL (40-60); LDL Cholesterol,Calculated 25 mg/dL (0-99); Lipase 319 U/L (23-300); Magnesium 1.4 mg/dL (1.6-2.3); Potassium 3.5 mmol/L (3.5-5.1); Sodium 137 mmol/L (137-145); Total Bilirubin 0.8 mg/dL (0.2-1.3); Total Protein 5.5 g/dL (6.3-8.2); Triglycerides 48 mg/dL (<150)
[2018-02-23] MEDS: CREON 24000 UNIT PO SCH ×2 (12:09→17:37)
[2018-02-23] MEDS: MULTIVITAMINS, THERA 1 EACH TAB PO SCH (12:10)
[2018-02-23] MEDS: THIAMINE 100 MG TAB PO SCH (12:10)
[2018-02-23] MEDS: SODIUM CHLORIDE 0.9% 1,000 ML IV SCH (14:03)
[2018-02-23] MEDS: traZODone HCL 50 MG TAB PO SCH (20:03)
[2018-02-23] MEDS: FLUCONAZOLE 100 MG TAB PO SCH (22:02)
--- NOTE | 2018-02-23 23:05 | PN ---
PROGRESS NOTE DATE OF SERVICE: 02/23/2018 This 47-year-old gentleman who was admitted with abdominal pain, vomiting, and recurrent acute pancreatitis. No chest pain. No palpitations. No fever. The lipase is improving. No chest pain. No palpitations. EXAM: Alert and oriented x3. Pulse 92. blood pressure 112/71, respirations 16, temperature 99.4, pulse ox 100 percent on room air. HEENT: Conjunctivae normal. NECK: No jugular venous distention. CARDIOVASCULAR: S1, S2. RESPIRATORY: Breath sounds diminished in the bases. No rhonchi, no crackles. ABDOMEN: Soft. Mild diffuse tenderness. LEGS: No edema. NERVOUS SYSTEM: No focal deficits. LABS: WBC 7.2, hemoglobin 10.5, sodium 137, potassium 3.5, calcium 8.1, lipase is 319. Amylase is normal. UA noted. ASSESSMENT: 1. Acute pancreatitis with acute on chronic pancreatitis. 2. History of EtOH abuse. 3. Gastroesophageal reflux disease. 4. History of chronic liver disease. 5. History of bilateral peripheral neuropathy. 6. Chronic urinary tract infection. 7. Self catheterization. 8. Chronic left hydronephrosis due to reflux. 9. Chronic low back pain. 10.Workup to rule out pancreatic cancer apparently at [facility]. 11.Chronic loose stools. 12.History of nicotine dependence. 13.Increased WBC. 14.Candidal urinary tract infection. RECOMMENDATIONS AND DISCUSSION: I recommend to continue current management and symptomatic treatment. Otherwise at this time the cultures continues to be negative. Otherwise some we will continue to monitor and prognosis guarded because of multiple complex medical issues and further recommendations to follow. I would recommend to add Diflucan also to the current regimen. Patient had Jolie UTI in the past. MMODL / IJN: [id number] /
[2018-02-23] MEDS: ONDANSETRON 4 MG TAB PO PRN (23:23)
[2018-02-24] MEDS: SODIUM CHLORIDE 0.9% 1,000 ML IV SCH (05:16)
[2018-02-24] MEDS: MORPHINE SULFATE 4 MG/ML SYRINGE IVP PRN ×2 (05:21→11:14)
[2018-02-24 06:06] VITALS: BP 130/81; PULSE 76; RESP 18; TEMP 98.3
[2018-02-24] MEDS: CREON 24000 UNIT PO SCH ×2 (08:04→11:16)
[2018-02-24] MEDS: MAGNESIUM OXIDE 400 MG TAB PO SCH (08:05)
[2018-02-24] MEDS: TAMSULOSIN 0.4 MG CAP.ER.24H PO SCH (08:05)
[2018-02-24] MEDS: FLUCONAZOLE 100 MG TAB PO SCH (08:05)
[2018-02-24] MEDS: PANTOPRAZOLE 40 MG/10 ML VIAL IVP SCH (08:05)
[2018-02-24] MEDS: BETAMETHASONE VALERATE TOPICAL SCH (08:05)
[2018-02-24] MEDS: NICOTINE 21MG/24HR PATCH TRANSDERM SCH (08:05)
[2018-02-24] MEDS: ENOXAPARIN 40 MG/0.4 ML SYRINGE SQ SCH (08:06)
[2018-02-24] MEDS: METOCLOPRAMIDE 10 MG TAB PO SCH ×2 (08:06→16:05)
[2018-02-24 09:56] LABS: Anisocytosis Slight; Basophils % (A) 0 %; Eosinophils % (A) 0 %; HCT 29.9 % (39.0-53.0); HGB 10.3 gm/dL (13.0-17.5); Lymphocytes # (A) 0.8 k/uL (1.0-4.8); Lymphocytes % (A) 10 %; MCH 31.5 pg (25.0-35.0); MCHC 34.4 g/dL (31.0-37.0); MCV 91.7 fL (80.0-100.0); Mean Platelet Volume 7.2; Monocytes # (A) 0.3 k/uL (0-1.0); Monocytes % (A) 4 %; Neutrophils # (A) 6.5 k/uL (1.3-7.7); Neutrophils % (A) 84 %; Platelet Count 233 k/uL (150-450); RBC 3.27 m/uL (4.30-5.90); RDW 16.1 % (11.5-15.5); WBC 7.7 k/uL (3.8-10.6)
[2018-02-24 10:07] LABS: ALT 30 U/L (21-72); AST 23 U/L (17-59); Albumin 2.5 g/dL (3.5-5.0); Alkaline Phosphatase 256 U/L (38-126); Amylase 33 U/L (30-110); Anion Gap 5 mmol/L; Blood Urea Nitrogen 7 mg/dL (9-20); Calcium 8.4 mg/dL (8.4-10.2); Carbon Dioxide 24 mmol/L (22-30); Chloride 108 mmol/L (98-107); Glucose 126 mg/dL (74-99); Lipase 124 U/L (23-300); Magnesium 1.5 mg/dL (1.6-2.3); Potassium 3.7 mmol/L (3.5-5.1); Sodium 137 mmol/L (137-145); Total Bilirubin 0.4 mg/dL (0.2-1.3); Total Protein 5.2 g/dL (6.3-8.2)
[2018-02-24] MEDS: MULTIVITAMINS, THERA 1 EACH TAB PO SCH (11:16)
[2018-02-24] MEDS: ONDANSETRON 4 MG TAB PO PRN (11:16)
[2018-02-24] MEDS: THIAMINE 100 MG TAB PO SCH (11:17)
[2018-02-24] MEDS: MAGNESIUM SULFATE-D5W PMX 1 GM in DEXTROSE/WATER 1 100ML.BAG IVPB SCH ×2 (14:56→16:05)
[2018-02-24] MEDS: DIAZEPAM 2 MG TAB PO PRN (14:57)
--- NOTE | 2018-02-25 06:08 | DS ---
DISCHARGE SUMMARY FINAL DIAGNOSES: 1. Acute pancreatitis with acute on chronic pancreatitis. 2. History of EtOH abuse. 3. Gastroesophageal reflux disease. 4. History of chronic liver disease. 5. History of bilateral peripheral neuropathy. 6. Chronic urinary tract infection. 7. Self catheterization. 8. Chronic left hydronephrosis due to reflux. 9. Chronic low back pain. 10.Workup to rule out pancreatic cancer apparently at [facility]. 11.Chronic loose stools. 12.History nicotine dependence. 13.Increased WBC. 14.Jolie urinary tract infection. DISCHARGE DISPOSITION: The patient will be discharged in stable condition with guarded prognosis. HISTORY OF PRESENT ILLNESS: This 47-year-old gentleman with a past medical history of multiple medical problems being followed Dr. Kerri Quinones in the outpatient setting was admitted with acute on chronic pancreatitis. The patient also history of EtOH. Patient treated symptomatically. Improved significantly. Lipase is normalized. The patient is keen on going home. On exam, vital signs are stable. Cardiovascular: S1, S2. Abdomen soft. Nervous system: No focal deficits. The patient is unable to tolerate diet at this time. DISCHARGE ADVICE AND MEDICATIONS: 1. Discharge diet is soft bland. 2. No EtOH, no smoking. 3. Follow up with Dr. Kerri Quinones in two days. 4. Followup with [facility] as advised. MEDICATIONS ARE: 1. Betamethasone valerate 15 g daily p.r.n. 2. Valium 2 mg t.i.d. p.r.n. 3. Creon 2 capsules p.o. t.i.d. 4. Magnesium oxide 200 mg p.o. 5. Multivitamins 1 p.o. daily. 6. Flomax 0.4. 7. Trazodone 50 mg q.h.s. 8. Diflucan 100 mg p.o. daily for 5 days. 9. Reglan 10 mg p.o. t.i.d. 10.Habitrol 21 daily. 11.Prilosec 40 mg b.i.d. 12.Zofran 4 mg q.8h p.r.n. 13.Vitamin B thiamine 100 mg p.o. daily. Once again, the patient is being discharged in stable with guarded prognosis. MMODL / IJN: [id number] / [facility]
== END 2018-02-24 18:01 | disposition home or self-care (01) | DRG 439 ==
LOC: EC 22:59 → 4MS4W 02-22 01:04
PROVIDERS: ADMIT Hospitalist; ATTEND Hospitalist
DX: K85.90 Acute pancreatitis without necrosis or infection, unspecified (principal); B37.49 Other urogenital candidiasis; N13.30 Unspecified hydronephrosis; K86.1 Other chronic pancreatitis; E78.5 Hyperlipidemia, unspecified; E86.0 Dehydration; F17.200 Nicotine dependence, unspecified, uncomplicated; G89.29 Other chronic pain; I10 Essential (primary) hypertension; K21.9 Gastro-esophageal reflux disease without esophagitis; Z82.49 Family history of ischemic heart disease and other diseases of the circulatory system; Z83.3 Family history of diabetes mellitus; Z86.73 Personal history of transient ischemic attack (TIA), and cerebral infarction without residual deficits; Z87.01 Personal history of pneumonia (recurrent); Z87.442 Personal history of urinary calculi; Z79.899 Other long term (current) drug therapy; N42.9 Disorder of prostate, unspecified; Z90.49 Acquired absence of other specified parts of digestive tract; Z98.1 Arthrodesis status; G62.9 Polyneuropathy, unspecified
CPT/HCPCS: 36415; 80053; 80061; 81001; 82150; 82550; 82553; 83605; 83690; 83735; 84100; 85025; 85610; 93005; 96361; 96374; 96375; 99285

== ENCOUNTER 2018-02-28 13:33 | Inpatient (IN) | payer MEDICARE, OTHER ==
[2018-02-28 14:40] LABS: Basophils % (A) 0 %; Eosinophils # (A) 0.1 k/uL (0-0.7); Eosinophils % (A) 1 %; HGB 11.6 gm/dL (13.0-17.5); Lymphocytes # (A) 1.2 k/uL (1.0-4.8); Lymphocytes % (A) 11 %; MCH 29.7 pg (25.0-35.0); MCHC 33.2 g/dL (31.0-37.0); MCV 89.5 fL (80.0-100.0); Mean Platelet Volume 7.4; Monocytes # (A) 0.6 k/uL (0-1.0); Monocytes % (A) 6 %; Neutrophils # (A) 8.3 k/uL (1.3-7.7); Neutrophils % (A) 81 %; Platelet Count 389 k/uL (150-450); RBC 3.91 m/uL (4.30-5.90); RDW 15.8 % (11.5-15.5); WBC 10.3 k/uL (3.8-10.6)
[2018-02-28 14:43] LABS: ALT 19 U/L (21-72); AST 15 U/L (17-59); Albumin 3.4 g/dL (3.5-5.0); Alkaline Phosphatase 224 U/L (38-126); Amylase 183 U/L (30-110); Anion Gap 8 mmol/L; Blood Urea Nitrogen 12 mg/dL (9-20); Calcium 9.3 mg/dL (8.4-10.2); Carbon Dioxide 26 mmol/L (22-30); Chloride 105 mmol/L (98-107); Glucose 124 mg/dL (74-99); Sodium 139 mmol/L (137-145); Total Bilirubin 0.3 mg/dL (0.2-1.3); Total Protein 6.7 g/dL (6.3-8.2)
[2018-02-28 14:50] LABS: Lipase 3976 U/L (23-300)
[2018-02-28] MEDS ORDERED: METOCLOPRAMIDE 5 MG/ML 2 ML VIAL IVP STA (15:53)
[2018-02-28] MEDS ORDERED: SODIUM CHLORIDE 0.9% 1,000 ML IV STA (16:17)
--- NOTE | 2018-02-28 16:17 | ED ---
General Adult HPI - General Chief complaint: Abdominal Pain Stated complaint: abd pain Source: patient Mode of arrival: wheelchair Limitations: no limitations - History of Present Illness Initial comments: Dictation was produced using [employer] dictation software. please excuse any grammatical, word or spelling errors. Chief Complaint: 47 year male with alcohol abuse, dyslipidemia, liver disease, chronic back otitis presents with abdominal pain. History of Present Illness: Patient is a 47-year-old male well-known to emergency department for chronic abdominal pain. Patient has a history of chronic pancreatitis. Presents today after drinking yesterday. Patient states his pain is to his entire abdomen worse in the epigastric region. Recently admitted to the hospital for a similar issue. Patient states she's been having progressive nausea and vomiting since onset of symptoms. Denies any constitutional symptoms. Patient states his emesis is nonbilious not bloody. The ROS documented in this emergency department record has been reviewed and confirmed by me. Those systems with pertinent positive or negative responses have been documented in the HPI. All other systems are other negative and/or noncontributory. - Related Data Home Medications Medication Instructions Recorded Confirmed traZODone HCL 50 mg PO HS 04/04/17 02/28/18 Magnesium Oxide [Mag-Ox] 200 mg PO DAILY 09/18/17 02/28/18 Tamsulosin HCl [Flomax] 0.4 mg PO DAILY 09/18/17 02/28/18 Lipase/Protease/Amylase [Rebel Belcher 2 cap PO TID-W/MEALS 10/20/17 02/28/18 24,000 Units Capsule] Betamethasone Valerate [Luxiq 1%] 1 applic TOPICAL BID 12/11/17 02/28/18 Diazepam [Valium] 2 mg PO TID PRN 12/11/17 02/28/18 Multivitamins, Thera [Multivitamin 1 tab PO DAILY 01/17/18 02/28/18 (formulary)] Thiamine [Vitamin B-1] 100 mg PO DAILY 02/28/18 02/28/18 Previous Rx's Medication Instructions Recorded Omeprazole [PriLOSEC] 40 mg PO BID #60 capsule. 05/16/17 Ondansetron Odt [Zofran ODT] 4 mg PO Q8HR PRN #10 tab 12/11/17 Metoclopramide [Reglan] 10 mg PO TID #12 tab 02/18/18 Fluconazole [Diflucan] 100 mg PO DAILY #7 tab 02/24/18 Nicotine 21Mg/24Hr Patch [Habitrol] 1 patch TRANSDERM DAILY #20 patch 02/24/18 Allergies Allergy/AdvReac Type Severity Reaction Status Date / Time No Known Allergies Allergy Verified 02/28/18 15:18 Review of Systems ROS Statement: Those systems with pertinent positive or pertinent negative responses have been documented in the HPI. ROS Other: All systems not noted in ROS Statement are negative. Past Medical History Past Medical History: GERD/Reflux, GI Bleed, Hyperlipidemia, Liver Disease, Pneumonia, Prostate Disorder Additional Past Medical History / Comment(s): ETOH ABUSE RECURRANT PANCREATITIS , ALCOHOLIC HEPATITIS, NEUROPATHY BILATERAL FEET SINCE BACK SURGERY, hx of CHRONIC URINARY RETENTION DUE TO BACK PROBLEMS-SELF CATHS, CHRONIC L HYDROURETERONEPHROSIS D/T REFLUX, CHRONIC LOW BACK PAIN (HAS STIMULATOR THAT PT STATES DOES NOT WORK), HEMATEMESIS, CHRONIC LOOSE STOOLS. History of Any Multi-Drug Resistant Organisms: None Reported Past Surgical History: Back Surgery, Cholecystectomy, Orthopedic Surgery Additional Past Surgical History / Comment(s): EGDS, colonoscopy, bronchoscopy, BACK surgeries with TITANIUM PLATES MILTON and CAGES, KIDNEY STONES removed per pt, SPINAL CORD STIMULATOR, ISMAEL KNEE ARTHROSCOPIES, PINKY FINGER RT HAND REATTATCHED. recent pancreatic bx at [facility]-pt waiting on results Past Anesthesia/Blood Transfusion Reactions: No Reported Reaction Past Psychological History: Anxiety, Depression Smoking Status: Current every day smoker Past Alcohol Use History: Abuse, Daily Past Drug Use History: None Reported - Past Family History Father Family Medical History: Diabetes Mellitus Additional Family Medical History / Comment(s): Mother Family Medical History: Dementia, Hyperlipidemia, Hypertension Additional Family Medical History / Comment(s): Mother is living. General Exam - General Exam Comments Initial Comments: PHYSICAL EXAM: General Impression: Alert and oriented x3, acute distress secondary to pain HEENT: Normocephalic atraumatic, extra-ocular movements intact, pupils equal and reactive to light bilaterally, mucous membranes moist. Cardiovascular: Heart regular rate and rhythm, S1&S2 audible, no murmurs, rubs or gallops Chest: Lungs clear to auscultation bilaterally, no rhonchi, no wheeze, no rales Abdomen: Diffuse abdominal tenderness Musculoskeletal: Pulses present and equal in all extremities, no peripheral edema Motor: Power 5/5 bilaterally, no focal deficits noted Neurological: CN II-XII grossly intact, no focal motor or sensory deficits noted Skin: Intact with no visualized rashes Psych: Normal affect and mood Limitations: no limitations Course Vital Signs 02/28/18 13:46 Temperature 98.5 F Pulse Rate 80 Respiratory 18 Rate Blood Pressure 142/78 O2 Sat by Pulse 100 Oximetry Medical Decision Making - Medical Decision Making ED course: 47 Old male presents with abdominal pain as his chief complaint. Patient's 1 month emergency department for chronic alcoholism and frequent visitations for abdominal pain. Patient has history of chronic pancreatitis. Signs upon arrival are within acceptable limits. Physical examination positive for tenderness to palpation of the entire abdomen. Patient states he was drinking yesterday. Laboratory evaluation obtained per it CBC unremarkable. Metabolic panel shows lipase of 3976. Patient clinical presentation consistent with acute on chronic pancreatitis. Patient's U normal pancreas levels usually in the thousands. Today his level is much higher than usual. We will plan have the patient admitted for acute on chronic pancreatitis. Patient started on intravenous fluids. He is to maintain nothing by mouth status. Patient be admitted. - Lab Data Result diagrams: 02/28/18 14:05 02/28/18 14:05 Lab Results 02/28/18 02/28/18 Range/Units 14:05 14:05 WBC 10.3 (3.8-10.6) k/uL RBC 3.91 L (4.30-5.90) m/uL Hgb 11.6 L (13.0-17.5) gm/dL Hct 35.0 L (39.0-53.0) % MCV 89.5 (80.0-100.0) fL MCH 29.7 (25.0-35.0) pg MCHC 33.2 (31.0-37.0) g/dL RDW 15.8 H (11.5-15.5) % Plt Count 389 (150-450) k/uL Neutrophils % 81 % Lymphocytes % 11 % Monocytes % 6 % Eosinophils % 1 % Basophils % 0 % Neutrophils # 8.3 H (1.3-7.7) k/uL Lymphocytes # 1.2 (1.0-4.8) k/uL Monocytes # 0.6 (0-1.0) k/uL Eosinophils # 0.1 (0-0.7) k/uL Basophils # 0.0 (0-0.2) k/uL Sodium 139 (137-145) mmol/L Potassium 4.0 (3.5-5.1) mmol/L Chloride 105 (98-107) mmol/L Carbon Dioxide 26 (22-30) mmol/L Anion Gap 8 mmol/L BUN 12 (9-20) mg/dL Creatinine 0.59 L (0.66-1.25) mg/dL Est GFR (CKD-EPI)AfAm >90 (>60 ml/min/1.73 sqM) Est GFR (CKD-EPI)NonAf >90 (>60 ml/min/1.73 sqM) Glucose 124 H (74-99) mg/dL Calcium 9.3 (8.4-10.2) mg/dL Total Bilirubin 0.3 (0.2-1.3) mg/dL AST 15 L (17-59) U/L ALT 19 L (21-72) U/L Alkaline Phosphatase 224 H (38-126) U/L Total Protein 6.7 (6.3-8.2) g/dL Albumin 3.4 L (3.5-5.0) g/dL Amylase 183 H (30-110) U/L Lipase 3976 H (23-300) U/L Disposition Clinical Impression: Pancreatitis Disposition: ADMITTED IP TO THIS HOSP Condition: Fair Is patient prescribed a controlled substance at d/c from ED?: No Referrals: Kerri Quinones MD [Primary Care Provider] - 1-2 days Decision Time: 16:33
[2018-02-28] MEDS ORDERED: KETOROLAC 30 MG/ML 1 ML VIAL IVP STA (16:32)
[2018-02-28] MEDS ORDERED: NALOXONE 0.4 MG/ML 1 ML VIAL IV PRN (16:33)
[2018-02-28] MEDS ORDERED: METOCLOPRAMIDE 5 MG/ML 2 ML VIAL IVP PRN (16:37)
[2018-02-28 16:47] LABS: Appearance,Urine Cloudy (Clear); Bacteria,Urine Rare /hpf; Bilirubin,Urine Negative (Negative); Blood,Urine Trace (Negative); Budding Yeast,Urine Rare /hpf; Color,Urine Yellow; Glucose,Urine (UA) Negative (Negative); Ketones,Urine Negative (Negative); Leukocyte Esterase,Urine Large (Negative); Mucus,Urine Few /hpf; Nitrite,Urine Positive (Negative); Protein,Urine Trace (Negative); RBC,Urine 4 /hpf (0-5); Specific Gravity,Urine 1.017 (1.001-1.035); Squamous Epithelial Cell,Urine <1 /hpf (0-4); Urobilinogen,Urine <2.0 mg/dL (<2.0); WBC,Urine 86 /hpf (0-5)
[2018-02-28] MEDS: MORPHINE SULFATE 4 MG/ML SYRINGE IVP PRN ×2 (17:12→21:13)
[2018-02-28 18:04] VITALS: BMI 20.5
[2018-02-28] MEDS ORDERED: LORazepam 2 MG/ML INJ IV PRN ×3 (21:54)
[2018-03-01] MEDS ORDERED: SODIUM CHLORIDE 0.9% 1,000 ML with MVI, ADULT NO.4 WITH VIT K 10 ML, THIAMINE 100 MG, F... IV SCH ×4 (01:15)
[2018-03-01] MEDS: MORPHINE SULFATE 4 MG/ML SYRINGE IVP PRN ×4 (01:16→14:39)
[2018-03-01 02:48] LABS: ALT 60 U/L (21-72); AST 154 U/L (17-59); Albumin 2.8 g/dL (3.5-5.0); Alkaline Phosphatase 333 U/L (38-126); Amylase 95 U/L (30-110); Anion Gap 5 mmol/L; Blood Urea Nitrogen 12 mg/dL (9-20); Calcium 8.4 mg/dL (8.4-10.2); Carbon Dioxide 24 mmol/L (22-30); Chloride 105 mmol/L (98-107); Glucose 108 mg/dL (74-99); Lipase 826 U/L (23-300); Potassium 3.6 mmol/L (3.5-5.1); Sodium 134 mmol/L (137-145); Total Protein 5.6 g/dL (6.3-8.2)
[2018-03-01] MEDS ORDERED: PANTOPRAZOLE 40 MG TABLET PO SCH (07:30)
[2018-03-01] MEDS ORDERED: MAGNESIUM OXIDE 400 MG TAB PO SCH (09:00)
[2018-03-01] MEDS ORDERED: THIAMINE 100 MG TAB PO SCH (09:00)
[2018-03-01] MEDS ORDERED: TAMSULOSIN 0.4 MG CAP.ER.24H PO SCH (09:00)
[2018-03-01] MEDS ORDERED: FLUCONAZOLE 100 MG TAB PO SCH (09:00)
[2018-03-01] MEDS ORDERED: NICOTINE 21MG/24HR PATCH TRANSDERM SCH (09:00)
[2018-03-01] MEDS ORDERED: MULTIVITAMINS, THERA 1 EACH TAB PO SCH (09:00)
[2018-03-01] MEDS ORDERED: BETAMETHASONE VALERATE TOPICAL SCH (09:00)
--- NOTE | 2018-03-01 09:24 | HP ---
HISTORY AND PHYSICAL DATE OF SERVICE: 02/28/2018 CHIEF COMPLAINT: Abdominal pain. HISTORY OF PRESENT ILLNESS: This 47-year-old gentleman with a past medical history of multiple medical problems including pancreatitis, history EtOH abuse, chronic liver disease, history of peripheral neuropathy being followed by Dr. Kerri Quinones in the outpatient setting was recently admitted with acute pancreatitis and acute on chronic pancreatitis. The patient apparently went to [facility] for evaluation for pancreatic cancer. Results are not available. The patient came back home. Patient apparently took some rum also and now the patient is complaining of severe abdominal pain, which is acute on chronic in nature, just in the epigastric area. There is no history of any fever or rigors. No history of headache, loss of consciousness or seizures at this time. The patient also nausea, vomiting also. After admission the patient was found to have amylase elevated 183 and lipase is 3976. Patient admitted for further evaluation. Patient also has features of UTI also. There is no history of fever, rigors or chills at this time. PAST MEDICAL HISTORY: History of pancreatitis, history of GERD, , hyperlipidemia, liver disease, EtOH abuse, recurrent pancreatitis, anxiety, depression. MEDICATIONS: Medications prior to admission include: 1. Trazodone 50 mg p.o. q.h.s. 2. Thiamine 100 mg p.o. daily. 3. Flomax 0.4 daily. 4. Zofran 4 mg q.8 p.r.n. 5. Prilosec 40 mg daily. 6. Habitrol 21 daily. 7. Multivitamins one p.o. daily. 8. Reglan 10 mg p.o. t.i.d. 9. Magnesium oxide 200 mg daily. 10.Creon 2 capsules t.i.d. with meals. 11.Diflucan 100 mg daily. 12.Valium 2 mg t.i.d. p.r.n. 13.Luxiq 1 application b.i.d. ALLERGIES: None. FAMILY HISTORY: Diabetes type 2. SOCIAL HISTORY: History of smoking and alcohol as mentioned. REVIEW OF SYSTEMS: ENT: No diminished hearing or diminished vision. CARDIOVASCULAR SYSTEM: No angina. RESPIRATORY SYSTEM: No cough. GI: As mentioned earlier. : No dysuria. NERVOUS SYSTEM: No numbness or weakness. ALLERGY/IMMUNOLOGY: No asthma. MUSCULOSKELETAL: As mentioned earlier. HEMATOLOGY/ONCOLOGY: No history of anemia. ENDOCRINE: No history of diabetes or hypothyroidism. CONSTITUTIONAL: As mentioned earlier. DERMATOLOGY: Negative. RHEUMATOLOGY: Negative. PSYCHIATRY: As mentioned earlier. PHYSICAL EXAMINATION: The patient is alert and oriented x3. Pulse is 77, blood pressure 142/81, respiration 16, temperature 97.6, pulse ox 98% on room air. HEENT: Conjunctivae normal. Oral mucosa moist. Neck is no jugular venous distention. No carotid bruit. No lymph node enlargement. CARDIOVASCULAR: S1 and S2 muffled. RESPIRATORY: Breath sounds diminished at the bases. A few scattered rhonchi. No crackles. ABDOMEN: Soft. Mild diffuse tenderness present, epigastric tenderness mainly. No guarding. No rigidity. No mass palpable. No hepatosplenomegaly. LEGS: No edema, no swelling. NERVOUS SYSTEM: Higher functions as mentioned earlier. Moves all 4 limbs. No focal motor deficits. LYMPHATICS: No lymphadenopathy of the neck, axillae or groin. SKIN: No ulcer, rash or bleeding. LABS: WBC 10.3, hemoglobin 11.6. Otherwise, alkaline phosphatase 224, amylase 183, lipase is 3976. UA noted. ASSESSMENT: 1. Acute on chronic pancreatitis, recurrent. 2. Possible urinary tract infection. 3. History of EtOH abuse. 4. Gastroesophageal reflux disease. 5. Chronic liver disease. 6. History of bilateral peripheral neuropathy. 7. Chronic urinary tract infection with self catheterization. 8. History of chronic left hydronephrosis due to reflux. 9. Chronic low back pain. 10.Workup to rule out pancreatic cancer at [facility] unknown. 11.Chronic loose stools. 12.History of nicotine dependence. 13.Increased WBC. 14.Jolie urinary tract infection. RECOMMENDATIONS AND DISCUSSION: This 47-year-old gentleman who presented with multiple complex medical issues, we will monitor the patient closely. Continue the current medications. Continue symptomatic treatment. Will initiate IV fluids and as well as symptomatic treatment of pain medications. I will repeat amylase, lipase levels and once the patient is symptomatically better we will initiate p.o. feeds. Prognosis guarded because of multiple complex medical issues. Further recommendations to follow. Please send a copy of dictation to Dr. Kerri Quinones who is the primary physician. MMODL / JALENN: [id number] /
[2018-03-01] MEDS: Lipase/Protease/Amylase [Creon Dr 24,000 Units Capsule] PO SCH ×2 (12:12→12:13)
[2018-03-01 12:23] VITALS: BP 120/76; PULSE 89; RESP 17; TEMP 96.1
--- NOTE | 2018-03-01 20:27 | DS ---
DISCHARGE SUMMARY FINAL DIAGNOSES: 1. Acute on chronic pancreatitis, recurrent. 2. Possible urinary tract infection. 3. History of EtOH abuse. 4. Gastroesophageal reflux disease. 5. Chronic liver disease. 6. History of bilateral peripheral neuropathy. 7. Chronic urinary tract infection with self catheterization. 8. History of chronic left hydronephrosis due to reflux. 9. Chronic back pain. 10.Workup related to pancreatic cancer at [facility]. 11.Chronic loose stools. 12.History of nicotine dependence. 13.Increased WBC. 14.Jolie urinary tract infection. DISCHARGE DISPOSITION: The patient is being discharged in stable condition with guarded prognosis. HISTORY OF PRESENT ILLNESS: This 47 -year-old gentleman with past medical history of multiple medical problems including acute on chronic pancreatitis, admitted with abdominal pain suggestive of acute on chronic pancreatitis. Treated symptomatically. The patient improved significantly. The patient is keen on going home at this time. Amylase and lipase improved. On exam, vital signs are stable. Cardiovascular: S1, S2. Abdomen soft. Nervous system: No focal deficits. DISCHARGE ADVICE AND MEDICATIONS: 1. Diet is cardiac diet. 2. Activity limited until follow up. 3. Follow up with Dr. Kerri Quinones in one or two days. MEDICATIONS ARE: 1. Betamethasone one application topically. 2. Valium 2 mg t.i.d. p.r.n. 3. Pancrelipase 2 tablets p.o. t.i.d. 4. Magnesium oxide 20 mg. 5. Multivitamins 1 p.o. daily. 6. Flomax 0.4 daily. 7. Vitamin B1 100 mg daily. 8. Trazodone 150 mg q.h.s. 9. Diflucan 100 mg. 10.Reglan 10 mg t.i.d. p.r.n. 11.Habitrol 21 daily. 12.Prilosec 40 mg b.i.d. 13.Zofran 4 mg q.8h p.r.n. Once again, the patient is being discharged in stable condition with guarded prognosis. MMODL / IJN: [id number] /
[2018-03-01] MEDS ORDERED: traZODone HCL 50 MG TAB PO SCH (21:00)
== END 2018-03-01 16:00 | disposition home or self-care (01) | DRG 439 ==
LOC: EC 13:33 → 5MS5E 16:34
PROVIDERS: ADMIT Hospitalist; ATTEND Hospitalist
DX: K85.90 Acute pancreatitis without necrosis or infection, unspecified (principal); B37.49 Other urogenital candidiasis; C25.9 Malignant neoplasm of pancreas, unspecified; K86.1 Other chronic pancreatitis; E78.5 Hyperlipidemia, unspecified; F10.20 Alcohol dependence, uncomplicated; F17.200 Nicotine dependence, unspecified, uncomplicated; G89.29 Other chronic pain; K21.9 Gastro-esophageal reflux disease without esophagitis; K76.9 Liver disease, unspecified; Z79.899 Other long term (current) drug therapy; Z82.49 Family history of ischemic heart disease and other diseases of the circulatory system; Z83.3 Family history of diabetes mellitus; Z87.442 Personal history of urinary calculi; G62.9 Polyneuropathy, unspecified; M54.5 Low back pain; Z98.1 Arthrodesis status; F41.9 Anxiety disorder, unspecified; F32.9 Major depressive disorder, single episode, unspecified
CPT/HCPCS: 36415; 80053; 81001; 82150; 83690; 85025; 87040; 87086; 93005; 96361; 96374; 96375; 99285

== ENCOUNTER 2018-03-09 12:09 | Inpatient (IN) | payer MEDICARE, OTHER ==
[2018-03-09] MEDS ORDERED: SODIUM CHLORIDE 0.9% 2,000 ML IV STA (12:33)
[2018-03-09 13:07] LABS: Basophils % (A) 0 %; Eosinophils # (A) 0.1 k/uL (0-0.7); Eosinophils % (A) 1 %; HCT 35.7 % (39.0-53.0); HGB 11.7 gm/dL (13.0-17.5); Lymphocytes % (A) 9 %; MCH 30.4 pg (25.0-35.0); MCHC 32.7 g/dL (31.0-37.0); MCV 92.8 fL (80.0-100.0); Mean Platelet Volume 6.9; Monocytes # (A) 0.4 k/uL (0-1.0); Monocytes % (A) 4 %; Neutrophils # (A) 9.7 k/uL (1.3-7.7); Neutrophils % (A) 86 %; Platelet Count 414 k/uL (150-450); RBC 3.84 m/uL (4.30-5.90); RDW 15.5 % (11.5-15.5); WBC 11.3 k/uL (3.8-10.6)
[2018-03-09] MEDS ORDERED: ONDANSETRON 4 MG/2 ML VIAL IVP STA (13:07)
[2018-03-09] MEDS ORDERED: MORPHINE SULFATE 2 MG/ML SYRINGE IVP ONE (13:12)
--- NOTE | 2018-03-09 13:14 | ED ---
Abdominal Pain HPI - General Chief Complaint: Abdominal Pain Stated Complaint: Abd Pain Time Seen by Provider: 03/09/18 12:32 Source: patient, RN notes reviewed Mode of arrival: ambulatory Limitations: no limitations - History of Present Illness Initial Comments: 47-year-old male presents emergency Department chief complaint of abdominal pain nausea vomiting. Patient has chronic pancreatitis does admit to drinking alcohol last 24 hours. Patient has mid abdominal pain states that he referred told that he does not his cancer that he says increased her secondary to alcohol abuse. denies any fevers or chills no chest pain or shortness breath no other symptoms. - Related Data Home Medications Medication Instructions Recorded Confirmed traZODone HCL 50 mg PO HS 04/04/17 02/28/18 Magnesium Oxide [Mag-Ox] 200 mg PO DAILY 09/18/17 02/28/18 Tamsulosin HCl [Flomax] 0.4 mg PO DAILY 09/18/17 02/28/18 Lipase/Protease/Amylase [Rebel Belcher 2 cap PO TID-W/MEALS 10/20/17 02/28/18 24,000 Units Capsule] Betamethasone Valerate [Luxiq 1%] 1 applic TOPICAL BID 12/11/17 02/28/18 Diazepam [Valium] 2 mg PO TID PRN 12/11/17 02/28/18 Multivitamins, Thera [Multivitamin 1 tab PO DAILY 01/17/18 02/28/18 (formulary)] Thiamine [Vitamin B-1] 100 mg PO DAILY 02/28/18 02/28/18 Previous Rx's Medication Instructions Recorded Omeprazole [PriLOSEC] 40 mg PO BID #60 capsule. 05/16/17 Ondansetron Odt [Zofran ODT] 4 mg PO Q8HR PRN #10 tab 12/11/17 Metoclopramide [Reglan] 10 mg PO TID #12 tab 02/18/18 Fluconazole [Diflucan] 100 mg PO DAILY #7 tab 02/24/18 Nicotine 21Mg/24Hr Patch [Habitrol] 1 patch TRANSDERM DAILY #20 patch 02/24/18 Allergies Allergy/AdvReac Type Severity Reaction Status Date / Time No Known Allergies Allergy Verified 03/09/18 12:28 Review of Systems ROS Statement: Those systems with pertinent positive or pertinent negative responses have been documented in the HPI. ROS Other: All systems not noted in ROS Statement are negative. Past Medical History Past Medical History: GERD/Reflux, GI Bleed, Hyperlipidemia, Liver Disease, Pneumonia, Prostate Disorder Additional Past Medical History / Comment(s): ETOH ABUSE RECURRANT PANCREATITIS , ALCOHOLIC HEPATITIS, NEUROPATHY BILATERAL FEET SINCE BACK SURGERY, hx of CHRONIC URINARY RETENTION DUE TO BACK PROBLEMS-SELF CATHS, CHRONIC L HYDROURETERONEPHROSIS D/T REFLUX, CHRONIC LOW BACK PAIN (HAS STIMULATOR THAT PT STATES DOES NOT WORK), HEMATEMESIS, CHRONIC LOOSE STOOLS. History of Any Multi-Drug Resistant Organisms: None Reported Past Surgical History: Back Surgery, Cholecystectomy, Orthopedic Surgery Additional Past Surgical History / Comment(s): EGDS, colonoscopy, bronchoscopy, BACK surgeries with TITANIUM PLATES MILTON and CAGES, KIDNEY STONES removed per pt, SPINAL CORD STIMULATOR, ISMAEL KNEE ARTHROSCOPIES, PINKY FINGER RT HAND REATTATCHED. recent pancreatic bx at [facility]-pt waiting on results Past Anesthesia/Blood Transfusion Reactions: No Reported Reaction Past Psychological History: Anxiety, Depression Smoking Status: Current every day smoker Past Alcohol Use History: Abuse, Daily Past Drug Use History: None Reported - Past Family History Father Family Medical History: Diabetes Mellitus Additional Family Medical History / Comment(s): Mother Family Medical History: Dementia, Hyperlipidemia, Hypertension Additional Family Medical History / Comment(s): Mother is living. General Exam Limitations: no limitations General appearance: alert, in no apparent distress Head exam: Present: atraumatic, normocephalic, normal inspection Respiratory exam: Present: normal lung sounds bilaterally. Absent: respiratory distress, wheezes, rales, rhonchi, stridor Cardiovascular Exam: Present: regular rate, normal rhythm, normal heart sounds. Absent: systolic murmur, diastolic murmur, rubs, gallop, clicks GI/Abdominal exam: Present: soft, tenderness, normal bowel sounds. Absent: distended, guarding, rebound, rigid Back exam: Absent: CVA tenderness (R), CVA tenderness (L) Skin exam: Present: warm, dry, intact, normal color. Absent: rash Course Vital Signs 03/09/18 03/09/18 12:25 13:45 Temperature 98.7 F Pulse Rate 71 84 Respiratory 16 Rate Blood Pressure 156/83 162/83 O2 Sat by Pulse 100 100 Oximetry Medical Decision Making - Lab Data Result diagrams: 03/09/18 12:48 03/09/18 12:48 Lab Results 03/09/18 03/09/18 Range/Units 12:48 12:48 WBC 11.3 H (3.8-10.6) k/uL RBC 3.84 L (4.30-5.90) m/uL Hgb 11.7 L (13.0-17.5) gm/dL Hct 35.7 L (39.0-53.0) % MCV 92.8 (80.0-100.0) fL MCH 30.4 (25.0-35.0) pg MCHC 32.7 (31.0-37.0) g/dL RDW 15.5 (11.5-15.5) % Plt Count 414 (150-450) k/uL Neutrophils % 86 % Lymphocytes % 9 % Monocytes % 4 % Eosinophils % 1 % Basophils % 0 % Neutrophils # 9.7 H (1.3-7.7) k/uL Lymphocytes # 1.0 (1.0-4.8) k/uL Monocytes # 0.4 (0-1.0) k/uL Eosinophils # 0.1 (0-0.7) k/uL Basophils # 0.0 (0-0.2) k/uL Sodium 138 (137-145) mmol/L Potassium 4.2 (3.5-5.1) mmol/L Chloride 106 (98-107) mmol/L Carbon Dioxide 25 (22-30) mmol/L Anion Gap 7 mmol/L BUN 11 (9-20) mg/dL Creatinine 0.61 L (0.66-1.25) mg/dL Est GFR (CKD-EPI)AfAm >90 (>60 ml/min/1.73 sqM) Est GFR (CKD-EPI)NonAf >90 (>60 ml/min/1.73 sqM) Glucose 101 H (74-99) mg/dL Calcium 9.1 (8.4-10.2) mg/dL Total Bilirubin 0.3 (0.2-1.3) mg/dL AST 14 L (17-59) U/L ALT 24 (21-72) U/L Alkaline Phosphatase 220 H (38-126) U/L Total Protein 6.7 (6.3-8.2) g/dL Albumin 3.5 (3.5-5.0) g/dL Amylase 158 H (30-110) U/L Lipase 2827 H (23-300) U/L Serum Alcohol <10 mg/dL Disposition Clinical Impression: Acute on chronic pancreatitis Disposition: ADMITTED IP TO THIS HOSP Condition: Fair Referrals: Kerri Quinones MD [Primary Care Provider] - 1-2 days
[2018-03-09 13:19] LABS: ALT 24 U/L (21-72); AST 14 U/L (17-59); Albumin 3.5 g/dL (3.5-5.0); Alcohol <10 mg/dL; Alkaline Phosphatase 220 U/L (38-126); Amylase 158 U/L (30-110); Anion Gap 7 mmol/L; Blood Urea Nitrogen 11 mg/dL (9-20); Calcium 9.1 mg/dL (8.4-10.2); Carbon Dioxide 25 mmol/L (22-30); Chloride 106 mmol/L (98-107); Glucose 101 mg/dL (74-99); Potassium 4.2 mmol/L (3.5-5.1); Sodium 138 mmol/L (137-145); Total Bilirubin 0.3 mg/dL (0.2-1.3); Total Protein 6.7 g/dL (6.3-8.2)
[2018-03-09 13:30] LABS: Lipase 2827 U/L (23-300)
[2018-03-09] MEDS ORDERED: NALOXONE 0.4 MG/ML 1 ML VIAL IV PRN (14:28)
[2018-03-09] MEDS ORDERED: KETOROLAC 30 MG/ML 1 ML VIAL IVP STA (14:33)
[2018-03-09] MEDS: MORPHINE SULFATE 2 MG/ML SYRINGE IV PRN ×3 (14:39→22:41)
[2018-03-09 16:20] LABS: Appearance,Urine Clear (Clear); Bilirubin,Urine Negative (Negative); Blood,Urine Negative (Negative); Color,Urine Light Yellow; Glucose,Urine (UA) Negative (Negative); Ketones,Urine Negative (Negative); Leukocyte Esterase,Urine Negative (Negative); Nitrite,Urine Positive (Negative); PH, Urine 7.5 (5.0-8.0); Protein,Urine Negative (Negative); RBC,Urine 1 /hpf (0-5); Specific Gravity,Urine 1.008 (1.001-1.035); Urobilinogen,Urine <2.0 mg/dL (<2.0); WBC,Urine 5 /hpf (0-5)
[2018-03-09] MEDS: SODIUM CHLORIDE 0.9% 1,000 ML IV SCH (17:18)
[2018-03-09] MEDS ORDERED: ACETAMINOPHEN TAB 325 MG TAB PO PRN (19:45)
[2018-03-09] MEDS ORDERED: ONDANSETRON 4 MG/2 ML VIAL IVP PRN (19:56)
[2018-03-09] MEDS: KETOROLAC 30 MG/ML 1 ML VIAL IVP PRN (20:24)
[2018-03-10] MEDS: SODIUM CHLORIDE 0.9% 1,000 ML IV SCH ×4 (00:40→19:57)
[2018-03-10] MEDS: MORPHINE SULFATE 2 MG/ML SYRINGE IV PRN ×6 (02:24→23:06)
[2018-03-10] MEDS: KETOROLAC 30 MG/ML 1 ML VIAL IVP PRN ×3 (04:52→19:57)
[2018-03-10] MEDS ORDERED: DIAZEPAM 2 MG TAB PO PRN (14:42)
[2018-03-10] MEDS: METOCLOPRAMIDE 10 MG TAB PO SCH ×2 (15:05→19:56)
[2018-03-10] MEDS: AMYLASE PO SCH (18:29)
[2018-03-10] MEDS: PROTEASE PO SCH (18:29)
[2018-03-10] MEDS: LIPASE PO SCH (18:29)
--- NOTE | 2018-03-10 19:27 | HP ---
HISTORY AND PHYSICAL CHIEF COMPLAINT: Abdominal pain. HISTORY OF PRESENT ILLNESS: This 47-year-old gentleman with a past medical history of multiple medical problems, acute on chronic pancreatitis, significant history of EtOH was admitted to [facility] on multiple occasions. Most recently, the patient was admitted with acute pancreatitis which was recurrent and urinary tract infection. Patient the patient went home. Patient apparently went to [place] with friends and drank alcohol. The patient complained of abdominal pain and the patient came to [facility]. Patient amylase and lipase elevated to 158 and 282 in this admission. The patient admitted for further evaluation and treatment. There is no history of fever, rigors or chills. No history of headache, loss of consciousness or seizures. No history of chest pain, palpation. PAST MEDICAL HISTORY: History of GI bleed, hypertension, hyperlipidemia, prostate disease, history EtOH abuse, accelerated DJD. MEDICATIONS ARE: 1. Trazodone 50 mg p.o. q.h.s. 2. Vitamin B1 100 mg daily. 3. Flomax 0.4 daily. 4. Zofran 4 mg q.8h p.r.n. 5. Prilosec 40 mg p.o. daily. 6. Multivitamins one p.o. daily. 7. Reglan 10 mg p.o. t.i.d. 8. Magnesium oxide 200 mg b.i.d. 9. Creon 2 capsules p.o. t.i.d. 10.Diflucan 100 mg. 11.Valium 2 mg p.o. t.i.d. p.r.n. 12.Betamethasone 1 application b.i.d. ALLERGIES: None. FAMILY HISTORY: History of diabetes mellitus in the family. SOCIAL HISTORY: History of alcohol as mentioned earlier, history of smoking. REVIEW OF SYSTEMS: ENT: No diminished vision. No diminished hearing. CARDIOVASCULAR: No angina or palpitations. RESPIRATORY: As mentioned earlier. GI: As mentioned earlier. : As mentioned earlier. NERVOUS SYSTEM: No numbness or weakness. ALLERGY: No asthma or hayfever. MUSCULOSKELETAL as mentioned earlier. HEMATOLOGY/ONCOLOGY: No history of anemia. ENDOCRINE: No history of diabetes or hypothyroidism. CONSTITUTIONAL: As mentioned earlier. Dermatology: Negative. Rheumatology: Negative. Psychiatry: As mentioned earlier. PHYSICAL EXAMINATION: GENERAL: The patient is alert and oriented times three. VITAL SIGNS: Pulse 61, blood pressure 158/82, respiration 18. Temperature 98.6, pulse ox 100 percent on room air. HEENT: Conjunctivae normal. Oral mucosa moist. NECK is no jugular venous distention. No carotid bruit. No lymph node enlargement. CARDIOVASCULAR: S1, S2. RESPIRATIONS: Breath sounds diminished in the bases. A few scattered rhonchi. No crackles. ABDOMEN: Soft, minimal diffuse tenderness in the epigastrium. LEGS: No edema. No swelling. CENTRAL NERVOUS SYSTEM: Higher functions as mentioned earlier. Moves all 4 limbs. No focal deficits. LYMPHATICS: No lymph nodes palpable in the neck, axilla or groin. SKIN was no ulcer, rash, bleeding. LABS: At this time shows WBC 11.2, hemoglobin 11.7, alkaline phosphatase is 220, amylase 158, lipase is 2827. ASSESSMENT: 1. Acute abdominal pain with acute pancreatitis with acute on chronic pancreatitis. History of recurrent acute pancreatitis. 2. History of ETOH. 3. Increased WBC. 4. Anemia. 5. History of gastroesophageal reflux disease. 6. Hyperlipidemia. 7. History of liver disease. 8. History of prostate disorder. 9. History of EtOH abuse. 10.History of peripheral neuropathy. 11.History of chronic left hydroureteral nephrosis. 12.History of back surgery, degenerative joint disease. 13.History of anxiety, depression. RECOMMENDATIONS AND DISCUSSION: Recommend to continue current medications, management and symptomatic treatment. Alcohol cessation. Social Work and Case Management to work towards arranging an outpatient program to increase compliance if possible. Otherwise, continue the rest of medication. Home medications. Prognosis guarded. Further recommendations to follow. See orders for details. A copy of this dictation being forwarded to Dr. Kerri Quinones who is the primary care physician. MMODL / JALENN: [id number] / MTDD
[2018-03-10] MEDS: TRIAMCINOLONE 0.1% CREAM 80 GM TUBE TOPICAL SCH (19:57)
[2018-03-10] MEDS ORDERED: traZODone HCL 50 MG TAB PO SCH (21:00)
[2018-03-11 00:30] VITALS: RESP 16
[2018-03-11] MEDS: KETOROLAC 30 MG/ML 1 ML VIAL IVP PRN ×2 (03:07→09:58)
[2018-03-11] MEDS: MORPHINE SULFATE 2 MG/ML SYRINGE IV PRN ×3 (03:08→11:18)
[2018-03-11 05:39] VITALS: BP 156/84; PULSE 63; TEMP 98.1
[2018-03-11] MEDS: SODIUM CHLORIDE 0.9% 1,000 ML IV SCH (06:42)
[2018-03-11] MEDS: METOCLOPRAMIDE 10 MG TAB PO SCH (08:08)
[2018-03-11] MEDS: PROTEASE PO SCH ×2 (08:09→11:15)
[2018-03-11] MEDS: LIPASE PO SCH ×2 (08:09→11:15)
[2018-03-11] MEDS: AMYLASE PO SCH ×2 (08:09→11:15)
[2018-03-11] MEDS: TRIAMCINOLONE 0.1% CREAM 80 GM TUBE TOPICAL SCH (08:10)
[2018-03-11] MEDS ORDERED: FLUCONAZOLE 100 MG TAB PO SCH (09:00)
[2018-03-11] MEDS ORDERED: TAMSULOSIN 0.4 MG CAP.ER.24H PO SCH (09:00)
[2018-03-11 09:31] LABS: Amylase 41 U/L (30-110); Lipase 117 U/L (23-300)
[2018-03-11] MEDS ORDERED: MULTIVITAMINS, THERA 1 EACH TAB PO SCH (12:00)
[2018-03-11] MEDS ORDERED: MAGNESIUM OXIDE 400 MG TAB PO SCH (12:00)
[2018-03-11] MEDS ORDERED: THIAMINE 100 MG TAB PO SCH (12:00)
--- NOTE | 2018-03-11 13:13 | CDI ---
Last Revision, April 2017 Documentation Clarification Form Date: 03/11/2018 12:57:34 PM From: Josee ChiangDANIEL, CCDS Admit Date: 03/09/2018 3:48:00 PM Patient Name: Nestor Pro Visit Number: [id number] Discharge Date: ATTENTION: The Clinical Documentation Specialists (CDI) and [facility] Coding Staff appreciate your assistance in clarifying documentation. Please respond to the clarification below the line at the bottom and electronically sign. The CDI & [facility] Coding staff will review the response and follow-up if needed. Please note: Queries are made part of the Legal Health Record. If you have any questions, please contact the author of this message via ITS. Socorro Allen MD: Patient is readmitted with acute abdominal pain with acute pancreatitis with acute on chronic pancreatitis. History of recurrent acute pancreatitis & history of alcohol abuse. Patient history/risk factors: GERD, Liver disease, Peripheral neuropathy, Chronic left hydroureteral nephrosis. Clinical Indicators: Patient was discharged day prior, treated for same. Labs: WBC 11.3^, Hgb 11.7*, Neut 9.7^, AST 14*, Alk Phos 220^, Amylase 158^, Lipase 2827^. Alcohol <10. Vital Signs: BP 156/83^ Treatment: IV fluid bolus, IV Zofran, IV Ms x2, IV toradol x2, IV fl 125. Consult: GI In your professional opinion, can the etiology of the pancreatitis be further specified as one of the following, if known? Acute on chronic pancreatitis related to alcohol Acute on chronic pancreatitis not related to alcohol Other, please specify: Undetermined Acute on chronic pancreatitis related to alcohol MTDD
--- NOTE | 2018-03-11 22:53 | P.CONS ---
History of Present Illness - Reason for Consult Consult date: 03/11/18 Pancreatitis Requesting physician: Socorro Barragan - Chief Complaint Abdominal pain - History of Present Illness 47-year-old male with a history of chronic pancreatitis and prior history of pneumonia who presented to the hospital with complaints of increasing abdominal pain and nausea. The patient has a known history of chronic pancreatitis and has been admitted on multiple occasions for acute exacerbation of chronic pancreatitis. He reports that this weekend he was playing baseball and subsequently celebrated winning by drinking with his friends. After this the abdominal pain that is typical for his pancreatitis continued to worsen and he had associated nausea. He presented to the hospital where he was found to have a negative serum alcohol with an elevated lipase of 2827. The patient was treated with IV fluid hydration and pain control and reports that his symptoms have greatly improved. He is asking for his diet to be advanced and for discharge home. Review of Systems REVIEW OF SYSTEMS: CARDIO: Denies any chest pain or palpitations. PULMONARY: Denies any shortness of breath or wheezing. GENITOURINARY: No dysuria or hematuria. MUSCULOSKELETAL: No weakness reported. SKIN: Denies any new rashes or lesions, jaundice or pallor. PSYCHIATRIC: Denies any depression or anxiety. NEUROLOGY: Denies headache, denies any new focal deficits. EARS: No tinnitus, discharge or new hearing loss. NOSE: No discharge or congestion. EYES: No pain in eyes or change in vision. CONSTITUTIONAL: No recent weight loss. No fever, chills, night sweats. Past Medical History Past Medical History: GERD/Reflux, GI Bleed, Hyperlipidemia, Liver Disease, Pneumonia, Prostate Disorder Additional Past Medical History / Comment(s): ETOH ABUSE RECURRANT PANCREATITIS , ALCOHOLIC HEPATITIS, NEUROPATHY BILATERAL FEET SINCE BACK SURGERY, hx of CHRONIC URINARY RETENTION DUE TO BACK PROBLEMS-SELF CATHS, CHRONIC L HYDROURETERONEPHROSIS D/T REFLUX, CHRONIC LOW BACK PAIN (HAS STIMULATOR THAT PT STATES DOES NOT WORK), HEMATEMESIS, CHRONIC LOOSE STOOLS. History of Any Multi-Drug Resistant Organisms: None Reported Past Surgical History: Back Surgery, Cholecystectomy, Orthopedic Surgery Additional Past Surgical History / Comment(s): EGDS, colonoscopy, bronchoscopy, BACK surgeries with TITANIUM PLATES MILTON and CAGES, KIDNEY STONES removed per pt, SPINAL CORD STIMULATOR, ISMAEL KNEE ARTHROSCOPIES, PINKY FINGER RT HAND REATTATCHED. recent pancreatic bx at [facility]-pt waiting on results Past Anesthesia/Blood Transfusion Reactions: No Reported Reaction Past Psychological History: Anxiety, Depression Additional Psychological History / Comment(s): PT LIVES AT HOME WITH in a 2 story home that has 3 porch steps/7 steps to 2nd floor.. IS DISABLED WORKED [employer] IN PAST. NO SERVICE.. occasionally uses either cane, walker or w/c also has shower chair and raised toilet seat. He does not drive, his can drive. Smoking Status: Current every day smoker Past Alcohol Use History: Abuse, Daily Additional Past Alcohol Use History / Comment(s): started smoking at age 14 Smokes 2 packs per day; ETOH ABUSE-patient states he has past hx of heavy drinking then went to [facility] but stated quit november 2017. Past Drug Use History: None Reported Additional Drug Use History / Comment(s): Patient reports that he has not used Marijuana in over 14 months. - Past Family History Father Family Medical History: Diabetes Mellitus Additional Family Medical History / Comment(s): Mother Family Medical History: Dementia, Hyperlipidemia, Hypertension Additional Family Medical History / Comment(s): Mother is living. Medications and Allergies Home Medications Medication Instructions Recorded Confirmed Type traZODone HCL 50 mg PO HS 04/04/17 03/09/18 History Omeprazole [PriLOSEC] 40 mg PO BID #60 capsule. 05/16/17 03/09/18 Rx Magnesium Oxide [Mag-Ox] 200 mg PO DAILY 09/18/17 03/09/18 History Tamsulosin HCl [Flomax] 0.4 mg PO DAILY 09/18/17 03/09/18 History Lipase/Protease/Amylase [Rebel Belcher 2 cap PO TID-W/MEALS 10/20/17 03/09/18 History 24,000 Units Capsule] Betamethasone Valerate [Luxiq 1%] 1 applic TOPICAL BID 12/11/17 03/09/18 History Diazepam [Valium] 2 mg PO TID PRN 12/11/17 03/09/18 History Ondansetron Odt [Zofran ODT] 4 mg PO Q8HR PRN #10 tab 12/11/17 03/09/18 Rx Multivitamins, Thera [Multivitamin 1 tab PO DAILY 01/17/18 03/09/18 History (formulary)] Metoclopramide [Reglan] 10 mg PO TID #12 tab 02/18/18 03/09/18 Rx Fluconazole [Diflucan] 100 mg PO DAILY #7 tab 02/24/18 03/09/18 Rx Thiamine [Vitamin B-1] 100 mg PO DAILY 02/28/18 03/09/18 History Acetaminophen Tab [Tylenol] 650 mg PO Q6HR PRN tab 03/11/18 Rx Allergies Allergy/AdvReac Type Severity Reaction Status Date / Time No Known Allergies Allergy Verified 03/09/18 15:05 Physical Exam Vitals: Vital Signs Temp Pulse Resp BP Pulse Ox 03/11/18 08:00 16 03/11/18 05:39 98.1 F 63 16 156/84 99 03/10/18 23:00 98.4 F 68 16 137/79 99 Intake and Output 03/11/18 03/11/18 03/11/18 06:59 14:59 22:59 Other: Voiding Method Toilet # Voids 1 5 On physical examination, patient appears comfortable in no apparent distress. HEAD: Normocephalic, atraumatic. EYES: No scleral icterus. No conjunctival injection. MOUTH: No lesions, tongue midline. NECK: Trachea midline, no gross abnormalities. CHEST: Clear to auscultation with no wheezing or rhonchi appreciated. HEART: Regular rate and rhythm. ABDOMEN: Soft. Bowel sounds are positive. No organomegaly. No guarding or rigidity. EXTREMITIES: No pedal edema. SKIN: No rashes, no jaundice. NEUROLOGIC: Alert and oriented x3. No focal deficits. Results CBC & Chem 7: 03/09/18 12:48 03/09/18 12:48 Assessment and Plan (1) Acute on chronic pancreatitis Narrative/Plan: Patient with a known history of chronic pancreatitis who presents after recent alcohol consumption with acute worsening of abdominal pain and associated nausea. The patient was found to have an elevated lipase of 2827. Serum alcohol was negative on presentation. The patient reports that the symptoms are consistent with his flares of pancreatitis. When the patient was seen at bedside today after treatment with fluid hydration and pain and nausea control he was reporting that symptoms will greatly improved. Status: Acute Code(s): K85.90 - ACUTE PANCREATITIS WITHOUT NECROSIS OR INFECTION, UNSP; K86.1 - OTHER CHRONIC PANCREATITIS SNOMED Code(s): 802069147 (2) Abdominal pain Narrative/Plan: Secondary to above. Status: Acute Code(s): R10.9 - UNSPECIFIED ABDOMINAL PAIN SNOMED Code(s): 29989495 (3) History of alcohol abuse Narrative/Plan: Patient had been abstinent from alcohol use but does report drinking this weekend. Status: Acute Code(s): Z87.898 - PERSONAL HISTORY OF OTHER SPECIFIED CONDITIONS SNOMED Code(s): 217861509 Plan: Supportive care Diet as tolerated Continue to abstain from alcohol use Pain control and hydration as needed Okay for discharge if patient is feeling better and able to tolerate a diet without any nausea or vomiting. Thank you for allowing us to participate in the care of this patient
--- NOTE | 2018-03-12 11:58 | DS ---
DISCHARGE SUMMARY FINAL DIAGNOSES: 1. Acute abdominal pain with acute pancreatitis with acute on chronic pancreatitis. 2. History of recurrent acute pancreatitis. 3. History of EtOH. 4. Increased WBC. 5. Anemia. 6. History of gastroesophageal reflux disease. 7. History of liver disease. 8. History of prostate cancer. 9. History EtOH abuse. 10.History of peripheral neuropathy. 11.History of chronic left hydronephrosis. 12.History of back surgery, degenerative joint disease. 13.History of anxiety, depression. DISCHARGE DISPOSITION: The patient will be discharged in a stable condition with guarded prognosis. HISTORY OF PRESENT ILLNESS: This is a 47-year-old gentleman with a past medial history of multiple medical problems, status post with Dr. Kerri Quinones in the outpatient setting. The patient admitted with abdominal pain which features of acute pancreatitis. Patient had recurrent acute pancreatitis, treated symptomatically, improved significantly. The importance of complaints also stressed. Patient had multiple admissions, also recommended follow up with the case monitor, manager social also for possible interventions, otherwise. On exam, vitals are stable. CARDIOVASCULAR SYSTEM: S1, S2. ABDOMEN: Soft. NERVOUS SYSTEM: No focal deficits. LABS: WBC 11.3 and amylase, lipase normalized. Discharge diet is cardiac. Please also note, patient apparently had an endoscopic ultrasound and other evaluation at [facility], these results are not available at this time. Follow up with [facility] for the same. Discharge diet is cardiac diet. Activity limited until followup. Otherwise, no alcohol. MEDICATIONS: 1. Betamethasone application topically. 2. Valium 2 mg t.i.d. p.r.n. 3. Lipase 2 mg t.i.d. 4. Magnesium oxide 200 mg daily. 5. Multivitamins 1 p.o. daily. 6. Flomax 0.4 daily. 7. Vitamin B1 one hundred mg p.o. daily. 8. Trazodone 50 mg q.h.s. 9. Tylenol p.r.n. 10.Diflucan 100 mg p.o. daily to complete the course. 11.Reglan 10 mg p.o. t.i.d. 12.Prilosec 40 mg p.o. b.i.d. 13.Zofran p.r.n.. Once again, the patient will be discharged in stable condition with guarded prognosis. MMODL / IJN: [id number] /
== END 2018-03-11 13:21 | disposition home or self-care (01) | DRG 439 ==
LOC: EC 12:09 → 4MS4W 15:48
PROVIDERS: ADMIT Hospitalist; ATTEND Hospitalist
DX: K85.20 Alcohol induced acute pancreatitis without necrosis or infection (principal); N13.30 Unspecified hydronephrosis; D64.9 Anemia, unspecified; K86.0 Alcohol-induced chronic pancreatitis; E78.5 Hyperlipidemia, unspecified; F10.10 Alcohol abuse, uncomplicated; F17.200 Nicotine dependence, unspecified, uncomplicated; I10 Essential (primary) hypertension; K21.9 Gastro-esophageal reflux disease without esophagitis; F32.9 Major depressive disorder, single episode, unspecified; F41.9 Anxiety disorder, unspecified; G62.9 Polyneuropathy, unspecified; G89.29 Other chronic pain; N42.9 Disorder of prostate, unspecified; M54.5 Low back pain; R33.9 Retention of urine, unspecified; D72.829 Elevated white blood cell count, unspecified; M19.90 Unspecified osteoarthritis, unspecified site; Z87.442 Personal history of urinary calculi; Z87.01 Personal history of pneumonia (recurrent); Z85.46 Personal history of malignant neoplasm of prostate; Z90.49 Acquired absence of other specified parts of digestive tract; Z79.899 Other long term (current) drug therapy; Z82.49 Family history of ischemic heart disease and other diseases of the circulatory system; Z83.3 Family history of diabetes mellitus; Z84.89 Family history of other specified conditions
CPT/HCPCS: 36415; 80053; 80320; 81001; 82150; 83690; 85025; 96361; 96374; 96375; 96376; 99284

== ENCOUNTER 2018-03-23 05:29 | Inpatient (IN) | payer MEDICARE, OTHER ==
[2018-03-23 06:19] LABS: Basophils % (A) 0 %; Eosinophils # (A) 0.2 k/uL (0-0.7); Eosinophils % (A) 2 %; HCT 37.6 % (39.0-53.0); Hypochromasia Slight; Lymphocytes # (A) 1.1 k/uL (1.0-4.8); Lymphocytes % (A) 13 %; MCH 28.8 pg (25.0-35.0); MCV 90.2 fL (80.0-100.0); Mean Platelet Volume 7.4; Monocytes # (A) 0.2 k/uL (0-1.0); Monocytes % (A) 3 %; Neutrophils # (A) 6.5 k/uL (1.3-7.7); Neutrophils % (A) 81 %; Platelet Count 345 k/uL (150-450); RBC 4.17 m/uL (4.30-5.90); RDW 15.4 % (11.5-15.5)
[2018-03-23] MEDS ORDERED: MORPHINE SULFATE 4 MG/ML SYRINGE IV STA (06:22)
[2018-03-23] MEDS ORDERED: ONDANSETRON 4 MG/2 ML VIAL IM STA (06:22)
[2018-03-23 06:30] LABS: ALT 18 U/L (21-72); AST 17 U/L (17-59); Albumin 3.6 g/dL (3.5-5.0); Alkaline Phosphatase 128 U/L (38-126); Amylase 150 U/L (30-110); Anion Gap 7 mmol/L; Blood Urea Nitrogen 13 mg/dL (9-20); Calcium 9.4 mg/dL (8.4-10.2); Carbon Dioxide 25 mmol/L (22-30); Chloride 106 mmol/L (98-107); Glucose 111 mg/dL (74-99); Sodium 138 mmol/L (137-145); Total Bilirubin 0.4 mg/dL (0.2-1.3); Total Protein 6.9 g/dL (6.3-8.2)
--- NOTE | 2018-03-23 06:52 | ED ---
Abdominal Pain HPI - General Source: patient Mode of arrival: wheelchair Limitations: no limitations - History of Present Illness Complaint: abdominal pain -: hour(s) Location: epigastric Radiation: back Migration to: no migration Severity: severe Quality: aching Consistency: constant Improves With: nothing Worsens With: nothing Associated Symptoms: nausea, vomiting <Carlos Parra - Last Filed: 03/23/18 06:50> <Grayson Marcelo - Last Filed: 03/23/18 08:05> - General Chief Complaint: Abdominal Pain Stated Complaint: Abdominal Pain Time Seen by Provider: 03/23/18 05:54 - Related Data Home Medications Medication Instructions Recorded Confirmed traZODone HCL 50 mg PO HS 04/04/17 03/23/18 Magnesium Oxide [Mag-Ox] 200 mg PO DAILY 09/18/17 03/23/18 Tamsulosin HCl [Flomax] 0.4 mg PO DAILY 09/18/17 03/23/18 Lipase/Protease/Amylase [Rebel Belcher 2 cap PO TID-W/MEALS 10/20/17 03/23/18 24,000 Units Capsule] Betamethasone Valerate [Luxiq 1%] 1 applic TOPICAL BID 12/11/17 03/23/18 Diazepam [Valium] 2 mg PO TID PRN 12/11/17 03/23/18 Multivitamins, Thera [Multivitamin 1 tab PO DAILY 01/17/18 03/23/18 (formulary)] Thiamine [Vitamin B-1] 100 mg PO DAILY 02/28/18 03/23/18 Previous Rx's Medication Instructions Recorded Omeprazole [PriLOSEC] 40 mg PO BID #60 capsule. 05/16/17 Ondansetron Odt [Zofran ODT] 4 mg PO Q8HR PRN #10 tab 12/11/17 Metoclopramide [Reglan] 10 mg PO TID #12 tab 02/18/18 Fluconazole [Diflucan] 100 mg PO DAILY #7 tab 02/24/18 Acetaminophen Tab [Tylenol] 650 mg PO Q6HR PRN tab 03/11/18 Allergies Allergy/AdvReac Type Severity Reaction Status Date / Time No Known Allergies Allergy Verified 03/09/18 15:05 Review of Systems ROS Other: All systems not noted in ROS Statement are negative. Constitutional: Denies: fever, chills Respiratory: Denies: cough, dyspnea Cardiovascular: Denies: chest pain, palpitations Gastrointestinal: Reports: as per HPI, abdominal pain, nausea, vomiting. Denies : diarrhea, constipation, hematemesis Genitourinary: Denies: dysuria, hematuria Musculoskeletal: Denies: back pain Skin: Denies: rash Neurological: Denies: headache <Carlos Parra - Last Filed: 03/23/18 06:50> ROS Other: All systems not noted in ROS Statement are negative. <Grayson Marcelo - Last Filed: 03/23/18 08:05> ROS Statement: Those systems with pertinent positive or pertinent negative responses have been documented in the HPI. Past Medical History Past Medical History: GERD/Reflux, GI Bleed, Hyperlipidemia, Liver Disease, Pneumonia, Prostate Disorder Additional Past Medical History / Comment(s): ETOH ABUSE RECURRANT PANCREATITIS , ALCOHOLIC HEPATITIS, NEUROPATHY BILATERAL FEET SINCE BACK SURGERY, hx of CHRONIC URINARY RETENTION DUE TO BACK PROBLEMS-SELF CATHS, CHRONIC L HYDROURETERONEPHROSIS D/T REFLUX, CHRONIC LOW BACK PAIN (HAS STIMULATOR THAT PT STATES DOES NOT WORK), HEMATEMESIS, CHRONIC LOOSE STOOLS. History of Any Multi-Drug Resistant Organisms: None Reported Past Surgical History: Back Surgery, Cholecystectomy, Orthopedic Surgery Additional Past Surgical History / Comment(s): EGDS, colonoscopy, bronchoscopy, BACK surgeries with TITANIUM PLATES MILTON and CAGES, KIDNEY STONES removed per pt, SPINAL CORD STIMULATOR, ISMAEL KNEE ARTHROSCOPIES, PINKY FINGER RT HAND REATTATCHED. recent pancreatic bx at [facility]-pt waiting on results Past Anesthesia/Blood Transfusion Reactions: No Reported Reaction Past Psychological History: Anxiety, Depression Smoking Status: Current every day smoker Past Alcohol Use History: Abuse, Daily Past Drug Use History: None Reported - Past Family History Father Family Medical History: Diabetes Mellitus Additional Family Medical History / Comment(s): Mother Family Medical History: Dementia, Hyperlipidemia, Hypertension Additional Family Medical History / Comment(s): Mother is living. <WinnieizaiahCarlos - Last Filed: 03/23/18 06:50> General Exam Limitations: no limitations General appearance: alert, in no apparent distress Head exam: Present: atraumatic, normocephalic Eye exam: Present: normal appearance. Absent: scleral icterus, conjunctival injection ENT exam: Present: normal oropharynx Respiratory exam: Present: normal lung sounds bilaterally. Absent: respiratory distress, wheezes, rales, rhonchi, stridor Cardiovascular Exam: Present: regular rate, normal rhythm, normal heart sounds. Absent: systolic murmur, diastolic murmur, rubs, gallop GI/Abdominal exam: Present: soft. Absent: distended, tenderness, guarding, rebound, rigid, mass Extremities exam: Present: normal inspection, normal capillary refill. Absent: pedal edema, calf tenderness Back exam: Present: normal inspection. Absent: CVA tenderness (R), CVA tenderness (L) Skin exam: Present: warm, dry, intact, normal color. Absent: rash <Carlos Parra - Last Filed: 03/23/18 06:50> Vital Signs 03/23/18 05:33 Temperature 98.5 F Pulse Rate 70 Respiratory 20 Rate Blood Pressure 169/93 O2 Sat by Pulse 100 Oximetry Medical Decision Making - Lab Data Result diagrams: 03/23/18 05:48 03/23/18 05:48 <Carlos Parra - Last Filed: 03/23/18 06:50> - Lab Data Result diagrams: 03/23/18 05:48 03/23/18 05:48 <Grayson Marcelo - Last Filed: 03/23/18 08:05> - Medical Decision Making This patient was signed out to me at 7:30 AM. Patient is pancreatitis spoke with the nurse practitioner for Dr. Barragan chief The patient I admitted the patient wrote admitting orders (Grayson Marcelo) - Lab Data Lab Results 03/23/18 03/23/18 03/23/18 Range/Units 05:48 05:48 06:25 WBC 8.0 (3.8-10.6) k/uL RBC 4.17 L (4.30-5.90) m/uL Hgb 12.0 L (13.0-17.5) gm/dL Hct 37.6 L (39.0-53.0) % MCV 90.2 (80.0-100.0) fL MCH 28.8 (25.0-35.0) pg MCHC 32.0 (31.0-37.0) g/dL RDW 15.4 (11.5-15.5) % Plt Count 345 (150-450) k/uL Neutrophils % 81 % Lymphocytes % 13 % Monocytes % 3 % Eosinophils % 2 % Basophils % 0 % Neutrophils # 6.5 (1.3-7.7) k/uL Lymphocytes # 1.1 (1.0-4.8) k/uL Monocytes # 0.2 (0-1.0) k/uL Eosinophils # 0.2 (0-0.7) k/uL Basophils # 0.0 (0-0.2) k/uL Hypochromasia Slight Sodium 138 (137-145) mmol/L Potassium 4.0 (3.5-5.1) mmol/L Chloride 106 (98-107) mmol/L Carbon Dioxide 25 (22-30) mmol/L Anion Gap 7 mmol/L BUN 13 (9-20) mg/dL Creatinine 0.68 (0.66-1.25) mg/dL Est GFR (CKD-EPI)AfAm >90 (>60 ml/min/1.73 sqM) Est GFR (CKD-EPI)NonAf >90 (>60 ml/min/1.73 sqM) Glucose 111 H (74-99) mg/dL Plasma Lactic Acid Bandar 0.9 (0.7-2.0) mmol/L Calcium 9.4 (8.4-10.2) mg/dL Total Bilirubin 0.4 (0.2-1.3) mg/dL AST 17 (17-59) U/L ALT 18 L (21-72) U/L Alkaline Phosphatase 128 H (38-126) U/L Total Protein 6.9 (6.3-8.2) g/dL Albumin 3.6 (3.5-5.0) g/dL Amylase 150 H (30-110) U/L Lipase 2996 H (23-300) U/L Disposition <Carlos Parra - Last Filed: 03/23/18 06:50> Time of Disposition: 08:05 <Grayson Marcelo - Last Filed: 03/23/18 08:05> Clinical Impression: Pancreatitis Disposition: ADMITTED IP TO THIS [facility] Referrals: Kerri Quinones MD [Primary Care Provider] - 1-2 days
[2018-03-23 07:00] LABS: Lipase 2996 U/L (23-300)
[2018-03-23] MEDS ORDERED: SODIUM CHLORIDE 0.9% 1,000 ML IV ONE (08:06)
[2018-03-23 11:10] VITALS: BMI 20.1
[2018-03-23] MEDS: HYDROcodone/APAP 10-325MG 1 EACH TAB PO PRN ×3 (11:49→19:52)
[2018-03-23] MEDS ORDERED: ONDANSETRON 4 MG/2 ML VIAL IVP PRN (13:50)
--- NOTE | 2018-03-23 16:06 | P.HPIM ---
History of Present Illness H&P Date: 03/23/18 Chief Complaint: Nausea and vomiting and abdominal pain Mr. Pro is a 47-year-old male with a past medical history of multiple medical problems including pancreatitis, alcohol abuse, chronic liver disease, peripheral neuropathy being followed by Dr. Kerri leon in the outpatient setting admitted to the hospital with a chief complaint of nausea vomiting and abdominal pain. Patient has at least 3 admissions in the past couple of months for acute on chronic pancreatitis. Patient states that he had alcohol at home and started to have severe abdominal pain that is acute and chronic in the epigastric region and so came to the hospital for further evaluation. The patient was also having nausea and vomiting. Patient denies having any fevers chills or rigors. No headaches or loss of consciousness. Patient was found to have elevated amylase and lipase at the time of admission and admitted for further management. Patient denies having any chest pain or palpitations. No cough or difficulty breathing. No dysuria or hematuria. Review of Systems REVIEW OF SYSTEMS: PSYCH: Has history of anxiety but no depression NEURO:No c/o weakness of the extremties, No facial droop, No speech abnormalities. VASCULAR: Peripheral nervous system within the normal limits no edema HEMATOLOGIC: No history of easy bleeding and bruising . No recent infections . RESPIRATORY: No cough, No SOB, No chest discomfort. IMMUNE: No infections INTEGUMENT: no rashes OPHTHALMOLOGIC: No blurry vision and no eye discharge : No dysuria or hematuria CARDIAC: No chest pain , shortness of breath , paroxysmal nocturnal dyspnea MUSCULOSKELETAL : No Aches or pains in the joints or muscles. Past Medical History Past Medical History: GERD/Reflux, GI Bleed, Hyperlipidemia, Liver Disease, Pneumonia, Prostate Disorder Additional Past Medical History / Comment(s): ETOH ABUSE RECURRANT PANCREATITIS , ALCOHOLIC HEPATITIS, NEUROPATHY BILATERAL FEET SINCE BACK SURGERY, hx of CHRONIC URINARY RETENTION DUE TO BACK PROBLEMS-SELF CATHS, CHRONIC L HYDROURETERONEPHROSIS D/T REFLUX, CHRONIC LOW BACK PAIN (HAS STIMULATOR THAT PT STATES DOES NOT WORK), HEMATEMESIS, CHRONIC LOOSE STOOLS. History of Any Multi-Drug Resistant Organisms: None Reported Past Surgical History: Back Surgery, Cholecystectomy, Orthopedic Surgery Additional Past Surgical History / Comment(s): EGDS, colonoscopy, bronchoscopy, BACK surgeries with TITANIUM PLATES MILTON and CAGES, KIDNEY STONES removed per pt, SPINAL CORD STIMULATOR, ISMAEL KNEE ARTHROSCOPIES, PINKY FINGER RT HAND REATTATCHED. recent pancreatic bx at [facility]-pt waiting on results Past Anesthesia/Blood Transfusion Reactions: No Reported Reaction Past Psychological History: Anxiety, Depression Additional Psychological History / Comment(s): PT LIVES AT HOME WITH in a 2 story home that has 3 porch steps/7 steps to 2nd floor.. IS DISABLED WORKED [employer] IN PAST. NO SERVICE.. occasionally uses either cane, walker or w/c also has shower chair and raised toilet seat. He does not drive, his can drive. Smoking Status: Current every day smoker Past Alcohol Use History: Abuse, Daily Additional Past Alcohol Use History / Comment(s): started smoking at age 14 Smokes 2 packs per day; ETOH ABUSE-patient states he has past hx of heavy drinking then went to [facility] but stated quit november 2017. Past Drug Use History: None Reported Additional Drug Use History / Comment(s): Patient reports that he has not used Marijuana in over 14 months. - Past Family History Father Family Medical History: Diabetes Mellitus Additional Family Medical History / Comment(s): Mother Family Medical History: Dementia, Hyperlipidemia, Hypertension Additional Family Medical History / Comment(s): Mother is living. Medications and Allergies Home Medications Medication Instructions Recorded Confirmed Type traZODone HCL 50 mg PO HS 04/04/17 03/23/18 History Omeprazole [PriLOSEC] 40 mg PO BID #60 capsule. 05/16/17 03/23/18 Rx Magnesium Oxide [Mag-Ox] 200 mg PO DAILY 09/18/17 03/23/18 History Tamsulosin HCl [Flomax] 0.4 mg PO DAILY 09/18/17 03/23/18 History Lipase/Protease/Amylase [Rebel Belcher 2 cap PO TID-W/MEALS 10/20/17 03/23/18 History 24,000 Units Capsule] Betamethasone Valerate [Luxiq 1%] 1 applic TOPICAL BID 12/11/17 03/23/18 History Diazepam [Valium] 2 mg PO TID PRN 12/11/17 03/23/18 History Ondansetron Odt [Zofran ODT] 4 mg PO Q8HR PRN #10 tab 12/11/17 03/23/18 Rx Multivitamins, Thera [Multivitamin 1 tab PO DAILY 01/17/18 03/23/18 History (formulary)] Metoclopramide [Reglan] 10 mg PO TID #12 tab 02/18/18 03/23/18 Rx Thiamine [Vitamin B-1] 100 mg PO DAILY 02/28/18 03/23/18 History Acetaminophen Tab [Tylenol] 650 mg PO Q6HR PRN tab 03/11/18 03/23/18 Rx Ibuprofen [Motrin Ib] 400 mg PO DAILY 03/23/18 03/23/18 History Nicotine 14Mg/24Hr Patch [Habitrol] 1 patch TOPICAL DAILY 03/23/18 03/23/18 History Allergies Allergy/AdvReac Type Severity Reaction Status Date / Time No Known Allergies Allergy Verified 03/23/18 12:06 Physical Exam Vitals: Vital Signs Temp Pulse Pulse Resp BP BP Pulse Ox 03/23/18 13:46 99.0 F 70 16 138/83 98 03/23/18 10:42 99.0 F 71 16 160/83 100 03/23/18 09:23 98.7 F 75 18 153/80 99 03/23/18 05:33 98.5 F 70 20 169/93 100 Intake and Output 03/23/18 03/23/18 03/23/18 06:59 14:59 22:59 Other: # Voids 1 Weight 56.699 kg 56.699 kg GENERAL EXAM GEN. APPEARANCE: alert, in no apparent distress HEAD EXAM: atraumatic, normocephalic, normal inspection EYE EXAM: normal appearance, PERRL, EOMI. Absent: scleral icterus, conjunctival injection, periorbital swelling ENT EXAM: normal exam, mucous membranes moist NECK EXAM: normal inspection. Absent: tenderness, meningismus, full ROM, lymphadenopathy RESPIRATORY EXAM: normal lung sounds bilaterally. Absent: respiratory distress , wheezes, rales, rhonchi, stridor CARDIOVASCULAR EXAM: regular rate, normal rhythm, normal heart sounds. Absent : systolic murmur, diastolic murmur, rubs, gallop, clicks GI/ABDOMINAL EXAM: Epigastric tenderness. Soft. No guarding or rigidity. Bowel sounds positive. EXTREMITIES EXAM: normal inspection, full ROM, normal capillary refill. Absent : tenderness, pedal edema, joint swelling, calf tenderness BACK EXAM: normal inspection NEUROLOGICAL EXAM: alert, oriented X3, CN II-XII intact, motor sensory deficit PSYCHIATRIC EXAM: normal affect, normal mood SKIN EXAM: warm, dry, intact, normal color. Absent: rash Results CBC & Chem 7: 03/23/18 05:48 03/23/18 05:48 Labs: Abnormal Lab Results - Last 24 Hours (Table) 03/23/18 03/23/18 Range/Units 05:48 05:48 RBC 4.17 L (4.30-5.90) m/uL Hgb 12.0 L (13.0-17.5) gm/dL Hct 37.6 L (39.0-53.0) % Glucose 111 H (74-99) mg/dL ALT 18 L (21-72) U/L Alkaline Phosphatase 128 H (38-126) U/L Amylase 150 H (30-110) U/L Lipase 2996 H (23-300) U/L Thrombosis Risk Factor Assmnt - Choose All That Apply Each Factor Represents 1 point: Age 41-60 years Thrombosis Risk Factor Assessment Total Risk Factor Score: 1 Thrombosis Risk Factor Assessment Level: Low Risk Assessment and Plan Assessment: Acute on chronic pancreatitis recurrent Alcohol abuse GERD Chronic liver disease History of bilateral peripheral neuropathy Chronic left hydronephrosis due to to flex Chronic low back pain Workup at [facility] to rule out pancreatic cancer Chronic diarrhea History of nicotine dependence Plan: Patient was kept nothing by mouth since last night. Patient states that his symptoms are getting better and he wants to try eating. We will continue with IV fluids and symptomatic management of his pain. Will repeat amylase and lipase. Further recommendations to follow depending on the progress of the patient. Patient has been restarted on his home medications.
[2018-03-23] MEDS: METOCLOPRAMIDE 10 MG TAB PO SCH ×2 (16:37→19:55)
[2018-03-23] MEDS: LIPASE 5,000/PROTEASE 17,000/AMYLASE 24,000 PO SCH (16:37)
[2018-03-23] MEDS: PANTOPRAZOLE 40 MG TABLET PO SCH (19:55)
[2018-03-23] MEDS ORDERED: traZODone HCL 50 MG TAB PO SCH (21:00)
[2018-03-24] MEDS: HYDROcodone/APAP 10-325MG 1 EACH TAB PO PRN ×3 (00:12→11:11)
[2018-03-24] MEDS: PANTOPRAZOLE 40 MG TABLET PO SCH (07:52)
[2018-03-24] MEDS: LIPASE 5,000/PROTEASE 17,000/AMYLASE 24,000 PO SCH (07:52)
[2018-03-24] MEDS: METOCLOPRAMIDE 10 MG TAB PO SCH (07:52)
[2018-03-24 08:50] LABS: Basophils % (A) 0 %; Eosinophils % (A) 1 %; HCT 37.5 % (39.0-53.0); HGB 11.6 gm/dL (13.0-17.5); Hypochromasia Moderate; Lymphocytes # (A) 0.6 k/uL (1.0-4.8); Lymphocytes % (A) 10 %; MCH 29.1 pg (25.0-35.0); MCHC 30.9 g/dL (31.0-37.0); MCV 94.2 fL (80.0-100.0); Mean Platelet Volume 7.6; Monocytes # (A) 0.3 k/uL (0-1.0); Monocytes % (A) 4 %; Neutrophils # (A) 5.7 k/uL (1.3-7.7); Neutrophils % (A) 85 %; Platelet Count 201 k/uL (150-450); RBC 3.98 m/uL (4.30-5.90); RDW 15.3 % (11.5-15.5); WBC 6.7 k/uL (3.8-10.6)
[2018-03-24] MEDS ORDERED: MAGNESIUM OXIDE 400 MG TAB PO SCH (09:00)
[2018-03-24] MEDS ORDERED: THIAMINE 100 MG TAB PO SCH (09:00)
[2018-03-24] MEDS ORDERED: TAMSULOSIN 0.4 MG CAP.ER.24H PO SCH (09:00)
[2018-03-24] MEDS ORDERED: NICOTINE 14MG/24HR PATCH TRANSDERM SCH (09:00)
[2018-03-24 09:02] LABS: ALT 72 U/L (21-72); AST 134 U/L (17-59); Albumin 3.2 g/dL (3.5-5.0); Alkaline Phosphatase 235 U/L (38-126); Anion Gap 8 mmol/L; Blood Urea Nitrogen 12 mg/dL (9-20); Calcium 8.9 mg/dL (8.4-10.2); Carbon Dioxide 22 mmol/L (22-30); Chloride 107 mmol/L (98-107); Glucose 110 mg/dL (74-99); Potassium 3.9 mmol/L (3.5-5.1); Sodium 137 mmol/L (137-145); Total Bilirubin 0.9 mg/dL (0.2-1.3); Total Protein 6.5 g/dL (6.3-8.2)
[2018-03-24 09:35] VITALS: BP 125/76; PULSE 79; RESP 16; TEMP 97.3
--- NOTE | 2018-03-24 11:22 | P.DS ---
Providers Date of admission: 03/23/18 08:06 Expected date of discharge: 03/24/18 Attending physician: Daniele Pizano Primary care physician: Kerri Quinones [facility] Hospital Course: HPI - Mr. Pro is a 47-year-old male with a past medical history of multiple medical problems including pancreatitis, alcohol abuse, chronic liver disease, peripheral neuropathy being followed by Dr. Kerri leon in the outpatient setting admitted to the hospital with a chief complaint of nausea vomiting and abdominal pain. Patient has at least 3 admissions in the past couple of months for acute on chronic pancreatitis. Patient states that he had alcohol at home and started to have severe abdominal pain that is acute and chronic in the epigastric region and so came to the hospital for further evaluation. The patient was also having nausea and vomiting. Patient denies having any fevers chills or rigors. No headaches or loss of consciousness. Patient was found to have elevated amylase and lipase at the time of admission and admitted for further management.Patient denies having any chest pain or palpitations. No cough or difficulty breathing. No dysuria or hematuria. Hospital course-patient was kept nothing by mouth. His symptoms of abdominal pain got better. Patient has been on clear liquids since last night and tolerating well. Patient states that his acute pain has resolved. On reviewing his labs there is a slight uptrend in his AST, AST and alkaline phosphatase levels. But the patient is completely asymptomatic and is able to tolerate diet only. Patient states that he wants to be discharged home today. Educated the patient about abstinence from alcohol. Vital Signs 03/23/18 03/23/18 03/23/18 05:33 09:23 10:42 Temperature 98.5 F 98.7 F 99.0 F Pulse Rate 70 75 Pulse Rate [ 71 Pulse Oximetery ] Respiratory 20 18 16 Rate Blood Pressure 169/93 153/80 Blood Pressure 160/83 [Right Arm] O2 Sat by Pulse 100 99 100 Oximetry 03/23/18 03/24/18 03/24/18 13:46 00:00 07:00 Temperature 99.0 F 98 F 97.3 F L Pulse Rate Pulse Rate [ 70 72 79 Pulse Oximetery ] Respiratory 16 20 16 Rate Blood Pressure Blood Pressure 138/83 112/69 125/76 [Right Arm] O2 Sat by Pulse 98 98 100 Oximetry GENERAL EXAM GEN. APPEARANCE: alert, in no apparent distress RESPIRATORY EXAM: normal lung sounds bilaterally. Absent: respiratory distress , wheezes, rales, rhonchi, stridor CARDIOVASCULAR EXAM: regular rate, normal rhythm, normal heart sounds. Absent : systolic murmur, diastolic murmur, rubs, gallop, clicks GI/ABDOMINAL EXAM: Epigastric tenderness. Soft. No guarding or rigidity. Bowel sounds positive. EXTREMITIES EXAM: no edema. DISCHARGE DIAGNOSIS Acute on chronic pancreatitis recurrent Alcohol abuse GERD Chronic liver disease History of bilateral peripheral neuropathy Chronic left hydronephrosis due to to flex Chronic low back pain Workup at [facility] to rule out pancreatic cancer Chronic diarrhea History of nicotine dependence Plan:patient is educated about alcohol abstinence as that is the primary cause for his pancreatitis. He is advised to follow-up with his primary care doctor Dr. Inocencia Leon in 2-3 days. Patient Condition at Discharge: Fair Plan - Discharge Summary Discharge Rx Participant: No New Discharge Prescriptions: Continue Ibuprofen [Motrin Ib] 400 mg PO DAILY Nicotine 14Mg/24Hr Patch [Habitrol] 1 patch TOPICAL DAILY No Action traZODone HCL 50 mg PO HS Omeprazole [PriLOSEC] 40 mg PO BID #60 capsule. Magnesium Oxide [Mag-Ox] 200 mg PO DAILY Tamsulosin HCl [Flomax] 0.4 mg PO DAILY Lipase/Protease/Amylase [Rebel Belcher 24,000 Units Capsule] 2 cap PO TID-W/MEALS Diazepam [Valium] 2 mg PO TID PRN PRN Reason: Anxiety Betamethasone Valerate [Luxiq 1%] 1 applic TOPICAL BID Ondansetron Odt [Zofran ODT] 4 mg PO Q8HR PRN #10 tab PRN Reason: Nausea Multivitamins, Thera [Multivitamin (formulary)] 1 tab PO DAILY Metoclopramide [Reglan] 10 mg PO TID #12 tab Thiamine [Vitamin B-1] 100 mg PO DAILY Acetaminophen Tab [Tylenol] 650 mg PO Q6HR PRN tab PRN Reason: Fever And/ Or Pain Discharge Medication List traZODone HCL 50 mg PO HS 04/04/17 [History] Omeprazole [PriLOSEC] 40 mg PO BID #60 capsule. 05/16/17 [Rx] Magnesium Oxide [Mag-Ox] 200 mg PO DAILY 09/18/17 [History] Tamsulosin HCl [Flomax] 0.4 mg PO DAILY 09/18/17 [History] Lipase/Protease/Amylase [Creon Dr 24,000 Units Capsule] 2 cap PO TID-W/MEALS 07/08 [History] Betamethasone Valerate [Luxiq 1%] 1 applic TOPICAL BID 12/11/17 [History] Diazepam [Valium] 2 mg PO TID PRN 12/11/17 [History] Ondansetron Odt [Zofran ODT] 4 mg PO Q8HR PRN #10 tab 12/11/17 [Rx] Multivitamins, Thera [Multivitamin (formulary)] 1 tab PO DAILY 01/17/18 [History ] Metoclopramide [Reglan] 10 mg PO TID #12 tab 02/18/18 [Rx] Thiamine [Vitamin B-1] 100 mg PO DAILY 02/28/18 [History] Acetaminophen Tab [Tylenol] 650 mg PO Q6HR PRN tab 03/11/18 [Rx] Ibuprofen [Motrin Ib] 400 mg PO DAILY 03/23/18 [History] Nicotine 14Mg/24Hr Patch [Habitrol] 1 patch TOPICAL DAILY 03/23/18 [History] Follow up Appointment(s)/Referral(s): Kerri Quionnes MD [Primary Care Provider] - 1-2 days
== END 2018-03-24 12:01 | disposition home or self-care (01) | DRG 439 ==
LOC: EC 05:29 → 4MS4W 08:06
PROVIDERS: ADMIT Internal Medicine; ATTEND Internal Medicine
DX: K85.90 Acute pancreatitis without necrosis or infection, unspecified (principal); N13.30 Unspecified hydronephrosis; E78.5 Hyperlipidemia, unspecified; F10.10 Alcohol abuse, uncomplicated; F17.210 Nicotine dependence, cigarettes, uncomplicated; F32.9 Major depressive disorder, single episode, unspecified; F41.9 Anxiety disorder, unspecified; G89.29 Other chronic pain; K21.9 Gastro-esophageal reflux disease without esophagitis; K76.9 Liver disease, unspecified; K86.1 Other chronic pancreatitis; Z82.49 Family history of ischemic heart disease and other diseases of the circulatory system; Z83.3 Family history of diabetes mellitus; Z87.442 Personal history of urinary calculi; Z87.01 Personal history of pneumonia (recurrent); G62.9 Polyneuropathy, unspecified; M54.5 Low back pain; R33.8 Other retention of urine; Z79.899 Other long term (current) drug therapy
CPT/HCPCS: 36415; 80053; 82150; 83605; 83690; 85025; 96361; 96372; 96374; 99284

== ENCOUNTER 2018-03-30 15:43 | Inpatient (IN) | payer MEDICARE, OTHER ==
[2018-03-30] MEDS ORDERED: PANTOPRAZOLE 40 MG/10 ML VIAL IVP STA (15:48)
[2018-03-30] MEDS ORDERED: KETOROLAC 30 MG/ML 1 ML VIAL IVP STA (15:48)
[2018-03-30] MEDS ORDERED: ONDANSETRON 4 MG/2 ML VIAL IVP STA (15:48)
[2018-03-30] MEDS ORDERED: SODIUM CHLORIDE 0.9% 1,000 ML IV STA (15:48)
[2018-03-30 16:15] LABS: Basophils % (A) 0 %; Eosinophils # (A) 0.1 k/uL (0-0.7); Eosinophils % (A) 1 %; HCT 32.4 % (39.0-53.0); HGB 10.4 gm/dL (13.0-17.5); Lymphocytes # (A) 0.7 k/uL (1.0-4.8); Lymphocytes % (A) 7 %; MCH 28.8 pg (25.0-35.0); MCHC 32.1 g/dL (31.0-37.0); MCV 89.6 fL (80.0-100.0); Mean Platelet Volume 7.2; Monocytes # (A) 0.4 k/uL (0-1.0); Monocytes % (A) 4 %; Neutrophils # (A) 9.9 k/uL (1.3-7.7); Neutrophils % (A) 88 %; Platelet Count 267 k/uL (150-450); RBC 3.62 m/uL (4.30-5.90); RDW 15.5 % (11.5-15.5); WBC 11.2 k/uL (3.8-10.6)
--- NOTE | 2018-03-30 16:25 | ED ---
Abdominal Pain HPI - General Chief Complaint: Abdominal Pain Stated Complaint: PANCREATITIS RELATED PAIN Time Seen by Provider: 03/30/18 15:45 Source: patient, RN notes reviewed, old records reviewed Mode of arrival: ambulatory Limitations: no limitations - History of Present Illness Initial Comments: Patient is a 47-year-old male well-known to emergency department today with history of chronic pancreatitis presents with recurring abdominal pain. He reports that he did drink last night, and had some marijuana. Patient states that he tries to stop drinking and was unable to. He states that his PCP had talked to him about the Vivitrol shots. He is interested in starting this. Patient states that he had some episodes of vomiting. He reports the pain radiates from his abdomen to his mid back. Patient reports that his pain is consistent with his chronic pancreatitis pain.Patient denies any recent fever, chills, shortness of breath, chest pain, back pain, abdominal pain, nausea vomiting, numbness or tingling, dysuria or hematuria, constipation or diarrhea, headaches or visual changes, or any other current symptoms - Related Data Home Medications Medication Instructions Recorded Confirmed traZODone HCL 50 mg PO HS 04/04/17 03/30/18 Magnesium Oxide [Mag-Ox] 200 mg PO DAILY 09/18/17 03/30/18 Tamsulosin HCl [Flomax] 0.4 mg PO DAILY 09/18/17 03/30/18 Lipase/Protease/Amylase [Creletha Belcher 2 cap PO TID-W/MEALS 10/20/17 03/30/18 24,000 Units Capsule] Betamethasone Valerate [Luxiq 1%] 1 applic TOPICAL BID 12/11/17 03/30/18 Diazepam [Valium] 2 mg PO TID PRN 12/11/17 03/30/18 Multivitamins, Thera [Multivitamin 1 tab PO DAILY 01/17/18 03/30/18 (formulary)] Thiamine [Vitamin B-1] 100 mg PO DAILY 02/28/18 03/30/18 Ibuprofen [Motrin Ib] 400 mg PO DAILY 03/23/18 03/30/18 Previous Rx's Medication Instructions Recorded Omeprazole [PriLOSEC] 40 mg PO BID #60 capsule. 05/16/17 Metoclopramide [Reglan] 10 mg PO TID #12 tab 10/01/18 Acetaminophen Tab [Tylenol] 650 mg PO Q6HR PRN tab 03/11/18 Allergies Allergy/AdvReac Type Severity Reaction Status Date / Time No Known Allergies Allergy Verified 03/30/18 16:01 Review of Systems ROS Statement: Those systems with pertinent positive or pertinent negative responses have been documented in the HPI. ROS Other: All systems not noted in ROS Statement are negative. Past Medical History Past Medical History: GERD/Reflux, GI Bleed, Hyperlipidemia, Liver Disease, Pneumonia, Prostate Disorder Additional Past Medical History / Comment(s): ETOH ABUSE RECURRANT PANCREATITIS , ALCOHOLIC HEPATITIS, NEUROPATHY BILATERAL FEET SINCE BACK SURGERY, hx of CHRONIC URINARY RETENTION DUE TO BACK PROBLEMS-SELF CATHS, CHRONIC L HYDROURETERONEPHROSIS D/T REFLUX, CHRONIC LOW BACK PAIN (HAS STIMULATOR THAT PT STATES DOES NOT WORK), HEMATEMESIS, CHRONIC LOOSE STOOLS. History of Any Multi-Drug Resistant Organisms: None Reported Past Surgical History: Back Surgery, Cholecystectomy, Orthopedic Surgery Additional Past Surgical History / Comment(s): EGDS, colonoscopy, bronchoscopy, BACK surgeries with TITANIUM PLATES MILTON and CAGES, KIDNEY STONES removed per pt, SPINAL CORD STIMULATOR, ISMAEL KNEE ARTHROSCOPIES, PINKY FINGER RT HAND REATTATCHED. recent pancreatic bx at [facility]-pt waiting on results Past Anesthesia/Blood Transfusion Reactions: No Reported Reaction Past Psychological History: Anxiety, Depression Smoking Status: Current every day smoker Past Alcohol Use History: Abuse, Daily Past Drug Use History: None Reported - Past Family History Father Family Medical History: Diabetes Mellitus Additional Family Medical History / Comment(s): Mother Family Medical History: Dementia, Hyperlipidemia, Hypertension Additional Family Medical History / Comment(s): Mother is living. General Exam - General Exam Comments Initial Comments: Patient is a 47-year-old male. Alert and oriented. Patient appears in no significant distress. Limitations: no limitations General appearance: alert, in no apparent distress Head exam: Present: atraumatic, normocephalic, normal inspection Eye exam: Present: normal appearance, PERRL, EOMI. Absent: scleral icterus, conjunctival injection, periorbital swelling ENT exam: Present: normal exam Neck exam: Present: normal inspection. Absent: tenderness, meningismus, lymphadenopathy Respiratory exam: Present: normal lung sounds bilaterally. Absent: respiratory distress, wheezes, rales, rhonchi, stridor Cardiovascular Exam: Present: regular rate, normal rhythm, normal heart sounds. Absent: systolic murmur, diastolic murmur, rubs, gallop, clicks GI/Abdominal exam: Present: soft, normal bowel sounds. Absent: distended, tenderness, guarding, rebound, rigid Course Vital Signs 03/30/18 03/30/18 15:47 18:08 Temperature 98.5 F Pulse Rate 91 85 Respiratory 18 18 Rate Blood Pressure 140/92 143/99 O2 Sat by Pulse 100 100 Oximetry Medical Decision Making - Medical Decision Making 47-year-old male well-known to the emergency department for chronic pancreatitis issues presents emergency department today for similar complaints. He stated them several been occurring for the past few days. He states he did drink yesterday. Denies any alcohol use today. However serum alcohol is 120 at this time. Patient lab work does show slightly elevated lipase of 3000. Patient's IV blew multiple times so Patient was unable to receive significant fluid bolus and emergency department. Discussed at this time to for continued hydration the Patient will be admitted. I will not give the Patient narcotic pain medication. Patient will be admitted for IV fluids, nothing by mouth and for further evaluation. - Lab Data Result diagrams: 03/30/18 16:05 03/30/18 16:05 Lab Results 03/30/18 03/30/18 03/30/18 Range/Units 16:05 16:05 16:30 WBC 11.2 H (3.8-10.6) k/uL RBC 3.62 L (4.30-5.90) m/uL Hgb 10.4 L (13.0-17.5) gm/dL Hct 32.4 L (39.0-53.0) % MCV 89.6 (80.0-100.0) fL MCH 28.8 (25.0-35.0) pg MCHC 32.1 (31.0-37.0) g/dL RDW 15.5 (11.5-15.5) % Plt Count 267 (150-450) k/uL Neutrophils % 88 % Lymphocytes % 7 % Monocytes % 4 % Eosinophils % 1 % Basophils % 0 % Neutrophils # 9.9 H (1.3-7.7) k/uL Lymphocytes # 0.7 L (1.0-4.8) k/uL Monocytes # 0.4 (0-1.0) k/uL Eosinophils # 0.1 (0-0.7) k/uL Basophils # 0.0 (0-0.2) k/uL PT 10.5 (9.0-12.0) sec INR 1.1 (<1.2) APTT 22.1 (22.0-30.0) sec Sodium 138 (137-145) mmol/L Potassium 4.1 (3.5-5.1) mmol/L Chloride 111 H (98-107) mmol/L Carbon Dioxide 20 L (22-30) mmol/L Anion Gap 7 mmol/L BUN 10 (9-20) mg/dL Creatinine 0.69 (0.66-1.25) mg/dL Est GFR (CKD-EPI)AfAm >90 (>60 ml/min/1.73 sqM) Est GFR (CKD-EPI)NonAf >90 (>60 ml/min/1.73 sqM) Glucose 91 (74-99) mg/dL Calcium 8.3 L (8.4-10.2) mg/dL Total Bilirubin 0.4 (0.2-1.3) mg/dL AST 17 (17-59) U/L ALT 16 L (21-72) U/L Alkaline Phosphatase 129 H (38-126) U/L Total Protein 6.0 L (6.3-8.2) g/dL Albumin 3.0 L (3.5-5.0) g/dL Amylase 139 H (30-110) U/L Lipase 3176 H (23-300) U/L Serum Alcohol 120 mg/dL - Radiology Data Radiology results: report reviewed KUB shows noninjected bowel gas pattern. Postsurgical change. Disposition Clinical Impression: Pancreatitis, ETOH abuse Disposition: ADMITTED IP TO THIS HOSP Condition: Good Is patient prescribed a controlled substance at d/c from ED?: No Referrals: Kerri Quinones MD [Primary Care Provider] - 1-2 days Time of Disposition: 18:25
[2018-03-30 16:30] LABS: ALT 16 U/L (21-72); AST 17 U/L (17-59); Alkaline Phosphatase 129 U/L (38-126); Amylase 139 U/L (30-110); Anion Gap 7 mmol/L; Blood Urea Nitrogen 10 mg/dL (9-20); Calcium 8.3 mg/dL (8.4-10.2); Carbon Dioxide 20 mmol/L (22-30); Chloride 111 mmol/L (98-107); Glucose 91 mg/dL (74-99); Potassium 4.1 mmol/L (3.5-5.1); Sodium 138 mmol/L (137-145); Total Bilirubin 0.4 mg/dL (0.2-1.3)
[2018-03-30 16:39] LABS: Alcohol 120 mg/dL; Lipase 3176 U/L (23-300)
[2018-03-30 17:00] LABS: INR 1.1 (<1.2); Partial Thromboplastin Time 22.1 sec (22.0-30.0); Prothrombin Time 10.5 sec (9.0-12.0)
--- NOTE | 2018-03-30 17:34 | XR ---
EXAMINATION TYPE: XR KUB DATE OF EXAM: 03/30/2018 5:16 PM CLINICAL HISTORY: Abdominal pain with history of pancreatitis TECHNIQUE: Single supine KUB image of the abdomen is obtained. COMPARISON: None. FINDINGS: Scattered gas is seen in non-distended small bowel loops. Gas and fecal material is seen in non-distended colon. There is no visceromegaly, pneumoperitoneum, or abnormal calcification apprecia tulio. The lung bases are clear. L4-S1 bilateral pedicle screws and fusion rods. Spinal stimulator maria isabel ce is present. Surgical clip is present in the right upper quadrant IMPRESSION: 1. Nonobstructive bowel gas pattern. 2. Postsurgical changes.
[2018-03-30] MEDS: SODIUM CHLORIDE 0.9% 1,000 ML IV STA ×2 (18:06→21:31)
[2018-03-30] MEDS ORDERED: IBUPROFEN 400 MG TAB PO PRN (18:52)
[2018-03-30] MEDS ORDERED: NALOXONE 0.4 MG/ML 1 ML VIAL IV PRN (18:52)
[2018-03-30] MEDS ORDERED: ACETAMINOPHEN TAB 325 MG TAB PO PRN ×2 (18:52→18:54)
[2018-03-30 19:18] LABS: Appearance,Urine Clear (Clear); Bilirubin,Urine Negative (Negative); Blood,Urine Negative (Negative); Budding Yeast,Urine Moderate /hpf; Color,Urine Yellow; Glucose,Urine (UA) Negative (Negative); Ketones,Urine Negative (Negative); Leukocyte Esterase,Urine Small (Negative); Nitrite,Urine Negative (Negative); Protein,Urine Negative (Negative); RBC,Urine 1 /hpf (0-5); Specific Gravity,Urine 1.009 (1.001-1.035); Urobilinogen,Urine <2.0 mg/dL (<2.0); WBC,Urine 2 /hpf (0-5)
[2018-03-30 20:30] VITALS: RESP 16
[2018-03-30] MEDS: KETOROLAC 30 MG/ML 1 ML VIAL IVP PRN (20:45)
[2018-03-30] MEDS ORDERED: traZODone HCL 50 MG TAB PO SCH (21:00)
[2018-03-30] MEDS ORDERED: NON-FORMULARY DRUG (Omeprazole 40 MG) PO SCH (21:00)
[2018-03-30 21:26] VITALS: BMI 22.5
[2018-03-30] MEDS: METOCLOPRAMIDE 10 MG TAB PO SCH (21:29)
[2018-03-30] MEDS: BETAMETHASONE DIPROPIONATE 0.05% CREAM 15 GM TUBE TOPICAL SCH (21:29)
[2018-03-30] MEDS: SODIUM CHLORIDE 0.9% 1,000 ML IV SCH (21:32)
[2018-03-30] MEDS: ONDANSETRON 4 MG/2 ML VIAL IVP PRN (21:49)
[2018-03-30] MEDS: DIAZEPAM 2 MG TAB PO PRN (23:27)
[2018-03-31] MEDS: traMADol 50 MG TAB PO PRN ×3 (02:35→14:59)
[2018-03-31] MEDS ORDERED: HYDROmorphone 1 MG/ML 1 ML SYRINGE IVP STA (03:14)
[2018-03-31] MEDS: SODIUM CHLORIDE 0.9% 1,000 ML IV SCH ×2 (04:51→15:36)
[2018-03-31] MEDS: ONDANSETRON 4 MG/2 ML VIAL IVP PRN ×2 (05:42→14:59)
[2018-03-31] MEDS: KETOROLAC 30 MG/ML 1 ML VIAL IVP PRN ×2 (05:43→12:19)
[2018-03-31] MEDS ORDERED: LIPASE 5,000/PROTEASE 17,000/AMYLASE 24,000 PO SCH (07:30)
[2018-03-31] MEDS ORDERED: MAGNESIUM OXIDE 400 MG TAB PO SCH (09:00)
[2018-03-31] MEDS ORDERED: IBUPROFEN 400 MG TAB PO SCH (09:00)
[2018-03-31] MEDS ORDERED: THIAMINE 100 MG TAB PO SCH (09:00)
[2018-03-31] MEDS ORDERED: TAMSULOSIN 0.4 MG CAP.ER.24H PO SCH (09:00)
[2018-03-31] MEDS ORDERED: PANTOPRAZOLE 40 MG/10 ML VIAL IV SCH (09:00)
[2018-03-31] MEDS: METOCLOPRAMIDE 10 MG TAB PO SCH (09:27)
[2018-03-31] MEDS: CREON 24000 UNIT PO SCH ×2 (09:55→12:20)
[2018-03-31] MEDS: BETAMETHASONE DIPROPIONATE 0.05% CREAM 15 GM TUBE TOPICAL SCH (10:16)
[2018-03-31] MEDS ORDERED: MULTIVITAMINS, THERA 1 EACH TAB PO SCH (12:00)
[2018-03-31] MEDS: DIAZEPAM 2 MG TAB PO PRN (12:19)
[2018-03-31 14:42] VITALS: BP 143/88; PULSE 73; TEMP 98
--- NOTE | 2018-03-31 15:54 | P.HPIM ---
History of Present Illness 47-year-old male well-known to emergency department today with history of chronic pancreatitis presents with recurring abdominal pain. He reports that he did drink last night, and had some marijuana. Patient states that he tries to stop drinking and was unable to. He states that his PCP had talked to him about the Vivitrol shots. He is interested in starting this. Patient states that he had some episodes of vomiting. He reports the pain radiates from his abdomen to his mid back. Patient reports that his pain is consistent with his chronic pancreatitis pain.Patient denies any recent fever, chills, shortness of breath, chest pain, back pain, abdominal pain, nausea vomiting, numbness or tingling, dysuria or hematuria, constipation or diarrhea, headaches or visual changes, or any other current symptoms. Patient is found to have elevated lipids of the thousand patient was on IV fluids and by mouth patient is feeling better now will advance her diet if he is able to tolerate the diet well patient will be discharged today to home. This time I did not even outreach counselor him about alcohol abstinence as it doesn't seem to benefit him anyway. Review of Systems REVIEW OF SYSTEMS: CONSTITUTIONAL: No fever, no malaise, no fatigue. HEENT: No recent visual problems or hearing problems. Denied any sore throat. CARDIOVASCULAR: No chest pain, orthopnea, PND, no palpitations, no syncope. PULMONARY: No shortness of breath, no cough, no hemoptysis. GASTROINTESTINAL: As mentioned in HPI NEUROLOGICAL: No headaches, no weakness, no numbness. HEMATOLOGICAL: Denies any bleeding or petechiae. GENITOURINARY: Denies any burning micturition, frequency, or urgency. MUSCULOSKELETAL/RHEUMATOLOGICAL: Denies any joint pain, swelling, or any muscle pain. ENDOCRINE: Denies any polyuria or polydipsia. The rest of the 14-point review of systems is negative. Past Medical History Past Medical History: GERD/Reflux, GI Bleed, Hyperlipidemia, Liver Disease, Pneumonia, Prostate Disorder Additional Past Medical History / Comment(s): ETOH ABUSE RECURRANT PANCREATITIS , ALCOHOLIC HEPATITIS, NEUROPATHY BILATERAL FEET SINCE BACK SURGERY, hx of CHRONIC URINARY RETENTION DUE TO BACK PROBLEMS-SELF CATHS, CHRONIC L HYDROURETERONEPHROSIS D/T REFLUX, CHRONIC LOW BACK PAIN (HAS STIMULATOR THAT PT STATES DOES NOT WORK), HEMATEMESIS, CHRONIC LOOSE STOOLS. History of Any Multi-Drug Resistant Organisms: None Reported Past Surgical History: Back Surgery, Cholecystectomy, Orthopedic Surgery Additional Past Surgical History / Comment(s): EGDS, colonoscopy, bronchoscopy, BACK surgeries with TITANIUM PLATES MILTON and CAGES, KIDNEY STONES removed per pt, SPINAL CORD STIMULATOR, ISMAEL KNEE ARTHROSCOPIES, PINKY FINGER RT HAND REATTATCHED. recent pancreatic bx at [facility]-pt waiting on results Past Anesthesia/Blood Transfusion Reactions: No Reported Reaction Past Psychological History: Anxiety, Depression Additional Psychological History / Comment(s): PT LIVES AT HOME WITH in a 2 story home that has 3 porch steps/7 steps to 2nd floor.. IS DISABLED WORKED [employer] IN PAST. NO SERVICE.. occasionally uses either cane, walker or w/c also has shower chair and raised toilet seat. He does not drive, his can drive. Smoking Status: Current every day smoker Past Alcohol Use History: Abuse, Daily Additional Past Alcohol Use History / Comment(s): started smoking at age 14 Smokes 2 packs per day; ETOH ABUSE-patient states he has past hx of heavy drinking then [facility] but stated quit november 2017. Past Drug Use History: None Reported Additional Drug Use History / Comment(s): Patient reports that he has not used Marijuana in over 14 months. - Past Family History Father Family Medical History: Diabetes Mellitus Additional Family Medical History / Comment(s): Mother Family Medical History: Dementia, Hyperlipidemia, Hypertension Additional Family Medical History / Comment(s): Mother is living. Medications and Allergies Home Medications Medication Instructions Recorded Confirmed Type traZODone HCL 50 mg PO HS 04/04/17 03/30/18 History Omeprazole [PriLOSEC] 40 mg PO BID #60 capsule. 05/16/17 03/30/18 Rx Magnesium Oxide [Mag-Ox] 200 mg PO DAILY 09/18/17 03/30/18 History Tamsulosin HCl [Flomax] 0.4 mg PO DAILY 09/18/17 03/30/18 History Lipase/Protease/Amylase [Rebel Belcher 2 cap PO TID-W/MEALS 10/20/17 03/30/18 History 24,000 Units Capsule] Betamethasone Valerate [Luxiq 1%] 1 applic TOPICAL BID 12/11/17 03/30/18 History Diazepam [Valium] 2 mg PO TID PRN 12/11/17 03/30/18 History Multivitamins, Thera [Multivitamin 1 tab PO DAILY 01/17/18 03/30/18 History (formulary)] Metoclopramide [Reglan] 10 mg PO TID #12 tab 02/18/18 03/30/18 Rx Thiamine [Vitamin B-1] 100 mg PO DAILY 02/28/18 03/30/18 History Acetaminophen Tab [Tylenol] 650 mg PO Q6HR PRN tab 03/11/18 03/30/18 Rx Ibuprofen [Motrin Ib] 400 mg PO DAILY 03/23/18 03/30/18 History Allergies Allergy/AdvReac Type Severity Reaction Status Date / Time No Known Allergies Allergy Verified 03/30/18 16:01 Physical Exam Vitals: Vital Signs Temp Pulse Pulse Resp BP BP Pulse Ox 03/31/18 14:15 98.0 F 73 16 143/88 99 03/31/18 05:49 97.1 F L 74 16 134/88 98 03/30/18 23:00 98.8 F 73 16 142/87 98 03/30/18 20:29 72 16 156/85 100 03/30/18 18:08 85 18 143/99 100 Intake and Output 03/31/18 03/31/18 03/31/18 06:59 14:59 22:59 Other: # Voids 1 PHYSICAL EXAMINATION: GENERAL: The patient is alert and oriented x3, not in any acute distress. Well developed, well nourished. HEENT: Pupils are round and equally reacting to light. EOMI. No scleral icterus. No conjunctival pallor. Normocephalic, atraumatic. No pharyngeal erythema. No thyromegaly. CARDIOVASCULAR: S1 and S2 present. No murmurs, rubs, or gallops. PULMONARY: Chest is clear to auscultation, no wheezing or crackles. ABDOMEN: Soft, tenderness in epigastric area, nondistended, normoactive bowel sounds. No palpable organomegaly. MUSCULOSKELETAL: No joint swelling or deformity. EXTREMITIES: No cyanosis, clubbing, or pedal edema. NEUROLOGICAL: Gross neurological examination did not reveal any focal deficits. SKIN: No rashes. Results CBC & Chem 7: 03/30/18 16:05 03/30/18 16:05 Labs: Abnormal Lab Results - Last 24 Hours (Table) 03/30/18 03/30/18 03/30/18 Range/Units 16:05 16:05 18:53 WBC 11.2 H (3.8-10.6) k/uL RBC 3.62 L (4.30-5.90) m/uL Hgb 10.4 L (13.0-17.5) gm/dL Hct 32.4 L (39.0-53.0) % Neutrophils # 9.9 H (1.3-7.7) k/uL Lymphocytes # 0.7 L (1.0-4.8) k/uL Chloride 111 H (98-107) mmol/L Carbon Dioxide 20 L (22-30) mmol/L Calcium 8.3 L (8.4-10.2) mg/dL ALT 16 L (21-72) U/L Alkaline Phosphatase 129 H (38-126) U/L Total Protein 6.0 L (6.3-8.2) g/dL Albumin 3.0 L (3.5-5.0) g/dL Amylase 139 H (30-110) U/L Lipase 3176 H (23-300) U/L Ur Leukocyte Esterase Small H (Negative) Urine Yeast (Budding) Moderate H (None) /hpf Thrombosis Risk Factor Assmnt - Choose All That Apply Each Factor Represents 1 point: Age 41-60 years Other Risk Factors: No Thrombosis Risk Factor Assessment Total Risk Factor Score: 1 Thrombosis Risk Factor Assessment Level: Low Risk Assessment and Plan Plan: -Acute on chronic pancreatitis: Patient has improved symptoms and let as a diet if he is able to tolerate will discharge the patient -Alcoholic gastritis patient will continue his Prilosec -Alcohol abuse -Benign prostatic hypertrophy -Hyperlipidemia We will advance the diet patient is able to tolerate that patient will be discharged today to follow with Dr. Kerri Quinones, as outpatient.
== END 2018-03-31 16:14 | disposition home or self-care (01) | DRG 440 ==
LOC: EC 15:43 → 4MS4W 18:49 → OBSVTOIN 03-31 15:43
PROVIDERS: ADMIT Internal Medicine; ATTEND Internal Medicine
DX: K85.90 Acute pancreatitis without necrosis or infection, unspecified (principal); K86.1 Other chronic pancreatitis; E78.5 Hyperlipidemia, unspecified; F10.10 Alcohol abuse, uncomplicated; F17.200 Nicotine dependence, unspecified, uncomplicated; F32.9 Major depressive disorder, single episode, unspecified; F41.9 Anxiety disorder, unspecified; K21.9 Gastro-esophageal reflux disease without esophagitis; K29.20 Alcoholic gastritis without bleeding; N40.0 Benign prostatic hyperplasia without lower urinary tract symptoms; Z82.49 Family history of ischemic heart disease and other diseases of the circulatory system; Z83.3 Family history of diabetes mellitus; Z87.442 Personal history of urinary calculi; Z79.1 Long term (current) use of non-steroidal anti-inflammatories (NSAID); Z79.899 Other long term (current) drug therapy; M54.5 Low back pain; G89.29 Other chronic pain; G62.9 Polyneuropathy, unspecified
CPT/HCPCS: 36415; 74018; 80053; 80320; 81001; 82150; 83690; 85025; 85610; 85730; 96361; 96374; 96375; 96376; 99285

== ENCOUNTER 2018-04-05 10:00 | Emergency (ER) | payer MEDICARE, OTHER ==
[2018-04-05 10:12] VITALS: BP 128/83; PULSE 84; RESP 16; TEMP 98.7
[2018-04-05] MEDS ORDERED: ONDANSETRON 4 MG/2 ML VIAL IVP STA (11:13)
[2018-04-05] MEDS ORDERED: SODIUM CHLORIDE 0.9% 1,000 ML IV STA (11:13)
--- NOTE | 2018-04-05 11:56 | ED ---
General Adult HPI - General Chief complaint: Abdominal Pain Stated complaint: Abd.pain Time Seen by Provider: 04/05/18 10:00 Source: patient, RN notes reviewed Mode of arrival: wheelchair - History of Present Illness Initial comments: This is a 47-year-old male who presents to the emergency department complaining of abdominal pain nausea and vomiting. Patient states she drinks occasionally and he has chronic pancreatitis and has acute on chronic quite regularly because of his drinking. Patient denies any chest pain difficulty breathing first breath per patient denies any lightheadedness dizziness or near syncopal episode. Patient denies any recent fever chills or cough per patient denies any diarrhea. Patient denies any recent injury or trauma. - Related Data Home Medications Medication Instructions Recorded Confirmed traZODone HCL 50 mg PO HS 04/04/17 04/05/18 Magnesium Oxide [Mag-Ox] 200 mg PO DAILY 09/18/17 04/05/18 Tamsulosin HCl [Flomax] 0.4 mg PO DAILY 09/18/17 04/05/18 Lipase/Protease/Amylase [Creletha Belcher 2 cap PO TID-W/MEALS 10/20/17 04/05/18 24,000 Units Capsule] Betamethasone Valerate [Luxiq 1%] 1 applic TOPICAL BID 12/11/17 04/05/18 Diazepam [Valium] 2 mg PO TID PRN 12/11/17 04/05/18 Multivitamins, Thera [Multivitamin 1 tab PO DAILY 01/17/18 04/05/18 (formulary)] Thiamine [Vitamin B-1] 100 mg PO DAILY 02/28/18 04/05/18 Ibuprofen [Motrin Ib] 400 mg PO DAILY 03/23/18 04/05/18 Previous Rx's Medication Instructions Recorded Omeprazole [PriLOSEC] 40 mg PO BID #60 capsule. 05/16/17 Metoclopramide [Reglan] 10 mg PO TID #12 tab 02/18/18 Acetaminophen Tab [Tylenol] 650 mg PO Q6HR PRN tab 03/11/18 Allergies Allergy/AdvReac Type Severity Reaction Status Date / Time No Known Allergies Allergy Verified 04/05/18 10:24 Review of Systems ROS Statement: Those systems with pertinent positive or pertinent negative responses have been documented in the HPI. ROS Other: All systems not noted in ROS Statement are negative. Past Medical History Past Medical History: GERD/Reflux, GI Bleed, Hyperlipidemia, Liver Disease, Pneumonia, Prostate Disorder Additional Past Medical History / Comment(s): ETOH ABUSE RECURRANT PANCREATITIS , ALCOHOLIC HEPATITIS, NEUROPATHY BILATERAL FEET SINCE BACK SURGERY, hx of CHRONIC URINARY RETENTION DUE TO BACK PROBLEMS-SELF CATHS, CHRONIC L HYDROURETERONEPHROSIS D/T REFLUX, CHRONIC LOW BACK PAIN (HAS STIMULATOR THAT PT STATES DOES NOT WORK), HEMATEMESIS, CHRONIC LOOSE STOOLS. History of Any Multi-Drug Resistant Organisms: None Reported Past Surgical History: Back Surgery, Cholecystectomy, Orthopedic Surgery Additional Past Surgical History / Comment(s): EGDS, colonoscopy, bronchoscopy, BACK surgeries with TITANIUM PLATES MILTON and CAGES, KIDNEY STONES removed per pt, SPINAL CORD STIMULATOR, ISMAEL KNEE ARTHROSCOPIES, PINKY FINGER RT HAND REATTATCHED. recent pancreatic bx at [facility]-pt waiting on results Past Anesthesia/Blood Transfusion Reactions: No Reported Reaction Past Psychological History: Anxiety, Depression Smoking Status: Current every day smoker Past Alcohol Use History: Abuse, Daily Past Drug Use History: None Reported - Past Family History Father Family Medical History: Diabetes Mellitus Additional Family Medical History / Comment(s): Mother Family Medical History: Dementia, Hyperlipidemia, Hypertension Additional Family Medical History / Comment(s): Mother is living. General Exam - General Exam Comments Initial Comments: GENERAL: Patient is well-developed and well-nourished. Patient is nontoxic and well- hydrated and is in mild distress. ENT: Neck is soft and supple. No significant lymphadenopathy is noted. Oropharynx is clear. Moist mucous membranes. Neck has full range of motion without eliciting any pain. EYES: The sclera were anicteric and conjunctiva were pink and moist. Extraocular movements were intact and pupils were equal round and reactive to light. Eyelids were unremarkable. PULMONARY: Unlabored respirations. Good breath sounds bilaterally. No audible rales rhonchi or wheezing was noted. CARDIOVASCULAR: There is a regular rate and rhythm without any murmurs gallops or rubs. Femoral pulses are equal bilaterally ABDOMEN: Mild epigastric tenderness. No palpable organomegaly was noted. There is no palpable pulsatile mass. SKIN: Skin is clear with no lesions or rashes and otherwise unremarkable. NEUROLOGIC: Patient is alert and oriented x3. Cranial nerves II through XII are grossly intact. Motor and sensory are also intact. Normal speech, volume and content. Symmetrical smile. MUSCULOSKELETAL: Normal extremities with adequate strength and full range of motion. No lower extremity swelling or edema. No calf tenderness. LYMPHATICS: No significant lymphadenopathy is noted PSYCHIATRIC: Normal psychiatric evaluation. Course Vital Signs 04/05/18 10:08 Temperature 98.7 F Pulse Rate 84 Respiratory 16 Rate Blood Pressure 128/83 O2 Sat by Pulse 100 Oximetry Medical Decision Making - Medical Decision Making EKG shows normal sinus rhythm at 71 bpm OR interval is 136 QRS is 80 QT interval is 4:30 QTC is 467. No ST segment elevation or depression. - Lab Data Result diagrams: 04/05/18 11:35 04/05/18 11:35 Lab Results 04/05/18 04/05/18 Range/Units 11:35 11:35 WBC 6.1 (3.8-10.6) k/uL RBC 5.59 (4.30-5.90) m/uL Hgb 15.6 D (13.0-17.5) gm/dL Hct 49.2 (39.0-53.0) % MCV 88.0 (80.0-100.0) fL MCH 27.9 (25.0-35.0) pg MCHC 31.7 (31.0-37.0) g/dL RDW 15.3 (11.5-15.5) % Plt Count 232 (150-450) k/uL Neutrophils % 86 % Lymphocytes % 8 % Monocytes % 4 % Eosinophils % 0 % Basophils % 0 % Neutrophils # 5.2 (1.3-7.7) k/uL Lymphocytes # 0.5 L (1.0-4.8) k/uL Monocytes # 0.3 (0-1.0) k/uL Eosinophils # 0.0 (0-0.7) k/uL Basophils # 0.0 (0-0.2) k/uL Sodium 135 L (137-145) mmol/L Potassium 4.3 (3.5-5.1) mmol/L Chloride 101 (98-107) mmol/L Carbon Dioxide 24 (22-30) mmol/L Anion Gap 10 mmol/L BUN 9 (9-20) mg/dL Creatinine 0.61 L (0.66-1.25) mg/dL Est GFR (CKD-EPI)AfAm >90 (>60 ml/min/1.73 sqM) Est GFR (CKD-EPI)NonAf >90 (>60 ml/min/1.73 sqM) Glucose 101 H (74-99) mg/dL Calcium 9.5 (8.4-10.2) mg/dL Total Bilirubin 0.6 (0.2-1.3) mg/dL AST 15 L (17-59) U/L ALT 22 (21-72) U/L Alkaline Phosphatase 191 H (38-126) U/L Total Protein 7.5 (6.3-8.2) g/dL Albumin 3.8 (3.5-5.0) g/dL Amylase 90 (30-110) U/L Lipase 984 H (23-300) U/L Serum Alcohol <10 mg/dL Disposition Clinical Impression: Abdominal pain Disposition: Left Against Medical Advice Referrals: Kerri Quinones MD [Primary Care Provider] - 1-2 days
[2018-04-05 12:06] LABS: Basophils % (A) 0 %; Eosinophils % (A) 0 %; HCT 49.2 % (39.0-53.0); Lymphocytes # (A) 0.5 k/uL (1.0-4.8); Lymphocytes % (A) 8 %; MCH 27.9 pg (25.0-35.0); MCHC 31.7 g/dL (31.0-37.0); Mean Platelet Volume 7.2; Monocytes # (A) 0.3 k/uL (0-1.0); Monocytes % (A) 4 %; Neutrophils # (A) 5.2 k/uL (1.3-7.7); Neutrophils % (A) 86 %; Platelet Count 232 k/uL (150-450); RBC 5.59 m/uL (4.30-5.90); RDW 15.3 % (11.5-15.5); WBC 6.1 k/uL (3.8-10.6)
[2018-04-05 12:19] LABS: HGB 15.6 gm/dL (13.0-17.5)
--- NOTE | 2018-04-05 12:22 | XR ---
EXAMINATION TYPE: XR KUB DATE OF EXAM: 04/05/2018 COMPARISON: NONE HISTORY: Pain TECHNIQUE: Single supine KUB image of the abdomen is obtained FINDINGS: Small bowel demonstrates no evidence for dilatation or air fluid levels. Gas and fecal material is seen in non-distended colon. No convincing evidence for pneumoperitoneum. No unusual calcifications. The lung bases are clear. The osseous structures are intact. Postoperative changes lumbar spine. Cholecystectomy clips noted. IMPRESSION: 1. Overall nonobstructive bowel gas pattern.
[2018-04-05 12:29] LABS: ALT 22 U/L (21-72); AST 15 U/L (17-59); Albumin 3.8 g/dL (3.5-5.0); Alcohol <10 mg/dL; Alkaline Phosphatase 191 U/L (38-126); Amylase 90 U/L (30-110); Anion Gap 10 mmol/L; Blood Urea Nitrogen 9 mg/dL (9-20); Calcium 9.5 mg/dL (8.4-10.2); Carbon Dioxide 24 mmol/L (22-30); Chloride 101 mmol/L (98-107); Glucose 101 mg/dL (74-99); Lipase 984 U/L (23-300); Potassium 4.3 mmol/L (3.5-5.1); Sodium 135 mmol/L (137-145); Total Bilirubin 0.6 mg/dL (0.2-1.3); Total Protein 7.5 g/dL (6.3-8.2)
== END 2018-04-05 14:33 | disposition left against medical advice (07) ==
LOC: EC 10:00
DX: R10.9 Unspecified abdominal pain (principal); R11.2 Nausea with vomiting, unspecified; K85.20 Alcohol induced acute pancreatitis without necrosis or infection; K86.0 Alcohol-induced chronic pancreatitis; G89.29 Other chronic pain; F32.9 Major depressive disorder, single episode, unspecified; F41.9 Anxiety disorder, unspecified; F17.200 Nicotine dependence, unspecified, uncomplicated; Z79.1 Long term (current) use of non-steroidal anti-inflammatories (NSAID); Z79.52 Long term (current) use of systemic steroids; Z79.899 Other long term (current) drug therapy; Z87.448 Personal history of other diseases of urinary system; Z90.49 Acquired absence of other specified parts of digestive tract; Z98.890 Other specified postprocedural states
CPT/HCPCS: 36415; 93005; 80053; 82150; 83690; 85025; 74018; 99284; 96374; 96361 ×3; G0480; J2405; 80320

== ENCOUNTER → 2018-04-29 | Outpatient (CLI) | payer MEDICARE, OTHER ==
--- NOTE | 2018-04-29 16:19 | CT ---
EXAMINATION TYPE: CT thor lumbar spine wo con DATE OF EXAM: 04/29/2018 COMPARISON: CT lumbar spine 04/25/2011 HISTORY: Back pain, history of multiple back surgeries CT DLP: 666.1 mGycm Automated exposure control for dose reduction was used. Helical acquisition through the thoracic and lumbar spine. FINDINGS: T9 shows laminectomy change, there are leads coursing into the spinal canal posteriorly at this level , stimulator causes metallic artifact at this level. This may limit sensitivity. There is no evident spinal stenosis within the thoracic spine. No foraminal encroachment. Minimal disc bulge present at T 11-T12 causes slight anterior mass effect on the thecal sac. There is a bony excrescence extending fr om the lamina of T10 posteriorly on the left causing some encroachment posterior laterally on the the rohit sac, local mass effect. 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 Lumbar spine shows posterior fusion at L4, L5-S1, transpedicular screws course anteriorly and breach the anterior cortices slightly. Artifact may obscure detail. Lumbar vertebral bodies show preserved h eight. There is anterolisthesis grade 1 L5-S1. Laminectomy change present on the left at L4-5. No freddy dent spinal stenosis. Abnormal soft tissue at the laminectomy sites may represent granulation tissue, similar finding on prior CT. Posterior disc bulge present at L2-3 causes mild anterior mass effect o n the thecal sac. Loss of disc height at the intervertebral levels. No evident foraminal encroachment . Punctate calcifications associated with the left kidney are nonobstructive, there is an extrarenal pe lvis present, left kidney somewhat atrophic compared to the right. Atheromatous change present within the aortoiliac distribution. IMPRESSION: POSTOP CHANGES. DEGENERATIVE DISC DISEASE DESCRIBED.
== END | disposition home or self-care (01) ==
LOC: RADCTMAIN 13:58
PROVIDERS: ATTEND Psychiatry & Neurology Neurology
DX: M51.36 Other intervertebral disc degeneration, lumbar region (principal); Z98.890 Other specified postprocedural states
CPT/HCPCS: 72128; 72131

== ENCOUNTER → 2019-11-26 | Outpatient (CLI) | payer MEDICARE, OTHER ==
[2019-11-26 14:23] LABS: Anisocytosis Slight; Basophils % (A) 0 %; Eosinophils # (A) 0.1 k/uL (0-0.7); Eosinophils % (A) 1 %; HCT 35.3 % (39.0-53.0); HGB 11.4 gm/dL (13.0-17.5); Lymphocytes % (A) 15 %; MCH 30.1 pg (25.0-35.0); MCHC 32.2 g/dL (31.0-37.0); MCV 93.6 fL (80.0-100.0); Mean Platelet Volume 7.4; Monocytes # (A) 0.5 k/uL (0-1.0); Monocytes % (A) 8 %; Neutrophils # (A) 4.7 k/uL (1.3-7.7); Neutrophils % (A) 74 %; Platelet Count 164 k/uL (150-450); RBC 3.77 m/uL (4.30-5.90); RDW 16.8 % (11.5-15.5); WBC 6.3 k/uL (3.8-10.6)
[2019-11-26 15:04] LABS: Potassium 6.2 mmol/L (3.5-5.1)
== END | disposition home or self-care (01) ==
LOC: LABPAT 13:44
PROVIDERS: ATTEND Orthopaedic Surgery
DX: Z01.818 Encounter for other preprocedural examination (principal); M75.42 Impingement syndrome of left shoulder
CPT/HCPCS: 36415; 80051; 85025

== ENCOUNTER → 2019-11-28 | Day surgery (SDC) | payer MEDICARE, OTHER ==
[2019-11-25 12:05] VITALS: BMI 28.0
--- NOTE | 2019-11-27 10:18 | HP ---
HISTORY AND PHYSICAL CHIEF COMPLAINT: Left shoulder pain. HISTORY OF PRESENT ILLNESS: The patient is a 49-year-old right-hand dominant male who presents with left shoulder pain for the past 6 months. It has worsened recently. He is having pain with overhead use and at night. He has tried previous injections and therapy with only temporary partial relief. He does have a his prior history of dislocation. He is unable to have an MRI because of an implanted pain pump. PAST MEDICAL HISTORY: Significant for arthritis. PAST SURGICAL HISTORY: Significant for previous spinal surgery and pain pump implantation. CURRENT MEDICATIONS: Morphine, morphine, meloxicam, Prilosec. He denies drug allergies. FAMILY HISTORY: Unknown. SOCIAL HISTORY: Significant for 2 pack per day tobacco use. 16 POINT REVIEW OF SYSTEMS: Otherwise reviewed and is noncontributory. PHYSICAL EXAMINATION: On examination, the patient is approximately 5 foot 6, 155 pounds of mesomorphic habitus. HEENT: Exam is nonfocal. NECK: Supple. Active right after he is tender about the anterior subacromial space, acromioclavicular joint, and anterior glenohumeral joint. He has moderate subacromial crepitus. Impingement test, NEER test are positive. He has pain with cross-body adduction. Active range of motion of the left shoulder. Forward elevation 135 degrees external rotation with arm at side 65 degrees, internal rotation to L1. Motor strength is 5-/5 for external rotation and abduction. His distal neurovascular exam appears intact in the left upper extremity. IMPRESSION: 1. Left shoulder impingement with possible rotator cuff tear. 2. Left acromioclavicular joint osteoarthritis. 3. History of left glenohumeral joint dislocation. RECOMMENDATIONS: I talked to the patient at length regarding his condition along with treatment options. At this point, he is having significant pain and limitation despite conservative measures. After a thorough discussion, he opts to proceed with surgery. We will plan to proceed with left shoulder arthroscopy with probable subacromial decompression, rotator cuff debridement versus repair, distal clavicular resection, possible biceps tenotomy. Risks and benefits were discussed at length in layman's terms. We will likely perform that as an outpatient procedure. MMODL / IJN: [id number] /
[~2019-11-28] MED LIST: DEXAMETHASONE SOD PHOSPHATE 10 MG/ML 1 ML VIAL IV ONE; LACTATED RINGERS 1,000 ML IV SCH; LIDOCAINE 1% (10MG/ML) FOR IV START INTRADERMA PRN; ONDANSETRON 4 MG/2 ML VIAL IVP ONE; SODIUM CHLORIDE 0.9% 1,000 ML IV ONE
[2019-11-28 10:20] LABS: Magnesium 1.6 mg/dL (1.6-2.3); Potassium 5.8 mmol/L (3.5-5.1)
[2019-11-28 10:46] VITALS: BP 146/82; PULSE 98; RESP 18; TEMP 97.9
== END ==
LOC: OR 09:09
PROVIDERS: ATTEND Orthopaedic Surgery
DX: M75.42 Impingement syndrome of left shoulder (principal); Z53.09 Procedure and treatment not carried out because of other contraindication; M19.012 Primary osteoarthritis, left shoulder; F17.210 Nicotine dependence, cigarettes, uncomplicated; Z98.890 Other specified postprocedural states; Z79.891 Long term (current) use of opiate analgesic; Z79.899 Other long term (current) drug therapy
CPT/HCPCS: 80051; 83735

== ENCOUNTER → 2020-02-13 | Outpatient (CLI) | payer MEDICARE, OTHER ==
--- NOTE | 2020-02-13 15:30 | US ---
EXAMINATION TYPE: US kidneys/renal and bladder DATE OF EXAM: 02/13/2020 COMPARISON: NONE CLINICAL HISTORY: E87.5 HYPERKALEMIA,E87.1 HYPONATREMIA. history of kidney stones EXAM MEASUREMENTS: Right Kidney: 10.4 x 6.2 x 4.8 cm Left Kidney: 9.1 x 3.3 x 3.7 cm Right Kidney: no evidence of hydronephrosis or mass Left Kidney: moderate hydronephrosis Bladder: left hydroureter noted Bilateral Jets seen: yes Normal Post Void Residual: patient not always able to urinate on his own, occasionally needs to carola f catheter IMPRESSION: Moderate left hydronephrosis
== END | disposition home or self-care (01) ==
LOC: RADUSWWP 14:45
PROVIDERS: ATTEND Family Medicine
DX: N13.30 Unspecified hydronephrosis (principal)
CPT/HCPCS: 76770

== ENCOUNTER 2020-03-19 03:17 | Inpatient (IN) | payer MEDICARE, OTHER ==
[2020-03-19] MEDS ORDERED: SODIUM CHLORIDE 0.9% 500 ML 500 ML IV STA ×2 (03:44→06:03)
[2020-03-19] MEDS ORDERED: ONDANSETRON 4 MG/2 ML VIAL IVP STA (03:44)
[2020-03-19] MEDS ORDERED: SODIUM CHLORIDE 0.9% 1,000 ML IV STA ×3 (03:44→06:03)
[2020-03-19] MEDS ORDERED: MORPHINE SULFATE 4 MG/ML SYRINGE IV STA (03:44)
[2020-03-19] MEDS ORDERED: PANTOPRAZOLE 40 MG/10 ML VIAL IVP STA (03:44)
--- NOTE | 2020-03-19 03:44 | ED ---
Abdominal Pain HPI - General Chief Complaint: Nausea/Vomiting/Diarrhea Stated Complaint: Vomiting Time Seen by Provider: 03/19/20 03:24 Source: patient, family, RN notes reviewed, old records reviewed Mode of arrival: wheelchair Limitations: no limitations - History of Present Illness MD Complaint: abdominal pain -: days(s) Location: diffuse, epigastric, suprapubic Radiation: epigastric, suprapubic Migration to: epigastric, suprapubic Severity: moderate Severity scale (1-10): 4 Quality: aching Consistency: constant Improves With: nothing Worsens With: nothing Associated Symptoms: nausea, vomiting - Related Data Home Medications Medication Instructions Recorded Confirmed Magnesium Oxide [Mag-Ox] 200 mg PO DAILY 09/18/17 03/19/20 Cyclobenzaprine HCl 10 mg PO BID 11/25/19 03/19/20 Folic Acid 1 mg PO DAILY 11/25/19 03/19/20 Gabapentin [Neurontin] 400 mg PO TID 11/25/19 03/19/20 HYDROcodone/APAP 5-325MG [[place] 1 tab PO DAILY 11/25/19 03/19/20 5-325] Lipase/Protease/Amylase [Creon Dr 2 tab PO TID 11/25/19 03/19/20 24,000 Units Capsule] Losartan [Cozaar] 50 mg PO DAILY 11/25/19 03/19/20 Meloxicam 15 mg PO DAILY 11/25/19 03/19/20 Metoprolol Tartrate [Lopressor] 25 mg PO BID 11/25/19 03/19/20 Morphine Pain Pump 1 dose SQ DIRECTED 11/25/19 03/19/20 Omeprazole [PriLOSEC] 40 mg PO DAILY 11/25/19 03/19/20 Furosemide [Lasix] 20 mg PO DAILY 03/19/20 03/19/20 Allergies Allergy/AdvReac Type Severity Reaction Status Date / Time No Known Allergies Allergy Verified 03/19/20 09:16 Review of Systems ROS Statement: Those systems with pertinent positive or pertinent negative responses have been documented in the HPI. ROS Other: All systems not noted in ROS Statement are negative. Past Medical History Past Medical History: COPD, GERD/Reflux, GI Bleed, Hyperlipidemia, Hypertension, Liver Disease, Pneumonia, Prostate Disorder Additional Past Medical History / Comment(s): ETOH ABUSE RECURRENT PANCREATITIS, ALCOHOLIC HEPATITIS, NEUROPATHY BILATERAL FEET SINCE BACK SURGERY, hx of CHRONIC URINARY RETENTION DUE TO BACK PROBLEMS-SELF CATHS, CHRONIC L HYDROURETERONEPHROSIS D/T REFLUX, CHRONIC LOW BACK PAIN, HAS MORPHINE PAIN PUMP, decreased etoh use History of Any Multi-Drug Resistant Organisms: None Reported Past Surgical History: Back Surgery, Cholecystectomy, Orthopedic Surgery Additional Past Surgical History / Comment(s): EGDS, colonoscopy, bronchoscopy, BACK surgeries with TITANIUM PLATES [place] and CAGES, KIDNEY STONES removed per pt, SPINAL CORD STIMULATOR PLACED AND REMOVED ANCHORS REMAIN, ISMAEL KNEE ARTHROSCOPIES, PINKY FINGER RT HAND REATTATCHED. Past Anesthesia/Blood Transfusion Reactions: No Reported Reaction Past Psychological History: Anxiety, Depression Smoking Status: Current every day smoker Past Alcohol Use History: Occasional Past Drug Use History: None Reported - Past Family History Father Family Medical History: Diabetes Mellitus Additional Family Medical History / Comment(s): Mother Family Medical History: Dementia, Hyperlipidemia, Hypertension Additional Family Medical History / Comment(s): Mother is living. General Exam Limitations: no limitations General appearance: alert, in no apparent distress Head exam: Present: atraumatic, normocephalic, normal inspection Eye exam: Present: normal appearance, PERRL, EOMI. Absent: scleral icterus, conjunctival injection, periorbital swelling ENT exam: Present: normal exam, mucous membranes moist Neck exam: Present: normal inspection. Absent: tenderness, meningismus, lymphadenopathy Respiratory exam: Present: normal lung sounds bilaterally. Absent: respiratory distress, wheezes, rales, rhonchi, stridor Cardiovascular Exam: Present: normal rhythm, tachycardia, normal heart sounds. Absent: systolic murmur, diastolic murmur, rubs, gallop, clicks GI/Abdominal exam: Present: soft, normal bowel sounds. Absent: distended, tenderness, guarding, rebound, rigid Extremities exam: Present: normal inspection, full ROM, normal capillary refill. Absent: tenderness, pedal edema, joint swelling, calf tenderness Back exam: Present: normal inspection Neurological exam: Present: alert, oriented X3, CN II-XII intact Psychiatric exam: Present: normal affect, normal mood Skin exam: Present: warm, dry, intact, normal color. Absent: rash Course Vital Signs 03/19/20 03/19/20 03/19/20 03:22 05:03 06:12 Temperature 99.2 F Pulse Rate 131 H 108 H 109 H Respiratory 20 18 16 Rate Blood Pressure 147/93 148/88 158/99 O2 Sat by Pulse 96 100 100 Oximetry Medical Decision Making - Lab Data Result diagrams: 03/19/20 03:57 03/19/20 03:57 Lab Results 03/19/20 03/19/20 03/19/20 Range/Units 03:57 03:57 03:57 WBC 7.7 (3.8-10.6) k/uL RBC 3.61 L (4.30-5.90) m/uL Hgb 11.9 L (13.0-17.5) gm/dL Hct 36.1 L (39.0-53.0) % MCV 100.2 H (80.0-100.0) fL MCH 33.1 (25.0-35.0) pg MCHC 33.0 (31.0-37.0) g/dL RDW 16.4 H (11.5-15.5) % Plt Count 188 (150-450) k/uL Neutrophils % 78 % Lymphocytes % 13 % Monocytes % 7 % Eosinophils % 1 % Basophils % 1 % Neutrophils # 6.0 (1.3-7.7) k/uL Lymphocytes # 1.0 (1.0-4.8) k/uL Monocytes # 0.5 (0-1.0) k/uL Eosinophils # 0.0 (0-0.7) k/uL Basophils # 0.1 (0-0.2) k/uL Anisocytosis Slight Macrocytosis Slight Sodium 131 L (137-145) mmol/L Potassium 3.8 (3.5-5.1) mmol/L Chloride 98 (98-107) mmol/L Carbon Dioxide 23 (22-30) mmol/L Anion Gap 10 mmol/L BUN 7 L (9-20) mg/dL Creatinine 0.80 (0.66-1.25) mg/dL Est GFR (CKD-EPI)AfAm >90 (>60 ml/min/1.73 sqM) Est GFR (CKD-EPI)NonAf >90 (>60 ml/min/1.73 sqM) Glucose 124 H (74-99) mg/dL Lactic Ac Sepsis Rflx Plasma Lactic Acid [place] (0.7-2.0) mmol/L Calcium 9.0 (8.4-10.2) mg/dL Total Bilirubin 1.1 (0.2-1.3) mg/dL AST 41 (17-59) U/L ALT 16 (4-49) U/L Alkaline Phosphatase 138 H (38-126) U/L Troponin I (0.000-0.034) ng/mL Total Protein 6.7 (6.3-8.2) g/dL Albumin 3.3 L (3.5-5.0) g/dL Amylase 52 (30-110) U/L Lipase 223 (23-300) U/L Urine Color Light [place] Urine Appearance Cloudy (Clear) Urine pH 6.5 (5.0-8.0) Ur Specific [place] 1.020 (1.001-1.035) Urine Protein 1+ H (Negative) Urine Glucose (UA) Negative (Negative) Urine Ketones Trace H (Negative) Urine Blood Trace H (Negative) Urine Nitrite Negative (Negative) Urine Bilirubin 1+ H (Negative) Urine Urobilinogen 2.0 (<2.0) mg/dL Ur Leukocyte Esterase Large H (Negative) Urine RBC 25 H (0-5) /hpf Urine WBC >182 H (0-5) /hpf Urine WBC Clumps Few H (None) /hpf Ur Squamous Epith Cells <1 (0-4) /hpf Urine Bacteria Occasional H (None) /hpf Hyaline Casts 6 H (0-2) /lpf Urine Mucus Few H (None) /hpf Urine Yeast (Budding) Many H (None) /hpf Serum Alcohol <10 mg/dL 03/19/20 03/19/20 03/19/20 Range/Units 03:57 03:57 04:52 WBC (3.8-10.6) k/uL RBC (4.30-5.90) m/uL Hgb (13.0-17.5) gm/dL Hct (39.0-53.0) % MCV (80.0-100.0) fL MCH (25.0-35.0) pg MCHC (31.0-37.0) g/dL RDW (11.5-15.5) % Plt Count (150-450) k/uL Neutrophils % % Lymphocytes % % Monocytes % % Eosinophils % % Basophils % % Neutrophils # (1.3-7.7) k/uL Lymphocytes # (1.0-4.8) k/uL Monocytes # (0-1.0) k/uL Eosinophils # (0-0.7) k/uL Basophils # (0-0.2) k/uL Anisocytosis Macrocytosis Sodium (137-145) mmol/L Potassium (3.5-5.1) mmol/L Chloride (98-107) mmol/L Carbon Dioxide (22-30) mmol/L Anion Gap mmol/L BUN (9-20) mg/dL Creatinine (0.66-1.25) mg/dL Est GFR (CKD-EPI)AfAm (>60 ml/min/1.73 sqM) Est GFR (CKD-EPI)NonAf (>60 ml/min/1.73 sqM) Glucose (74-99) mg/dL Lactic Ac Sepsis Rflx Y Plasma Lactic Acid [place] 2.7 H* (0.7-2.0) mmol/L Calcium (8.4-10.2) mg/dL Total Bilirubin (0.2-1.3) mg/dL AST (17-59) U/L ALT (4-49) U/L Alkaline Phosphatase (38-126) U/L Troponin I <0.012 (0.000-0.034) ng/mL Total Protein (6.3-8.2) g/dL Albumin (3.5-5.0) g/dL Amylase (30-110) U/L Lipase (23-300) U/L Urine Color Urine Appearance (Clear) Urine pH (5.0-8.0) Ur Specific [place] (1.001-1.035) Urine Protein (Negative) Urine Glucose (UA) (Negative) Urine Ketones (Negative) Urine Blood (Negative) Urine Nitrite (Negative) Urine Bilirubin (Negative) Urine Urobilinogen (<2.0) mg/dL Ur Leukocyte Esterase (Negative) Urine RBC (0-5) /hpf Urine WBC (0-5) /hpf Urine WBC Clumps (None) /hpf Ur Squamous Epith Cells (0-4) /hpf Urine Bacteria (None) /hpf Hyaline Casts (0-2) /lpf Urine Mucus (None) /hpf Urine Yeast (Budding) (None) /hpf Serum Alcohol mg/dL Disposition Clinical Impression: Abdominal pain, Acute on chronic pancreatitis, Chronic pancreatitis, UTI (urinary tract infection) Disposition: ADMITTED IP TO THIS HOSP Condition: Fair Is patient prescribed a controlled substance at d/c from ED?: No
[2020-03-19 04:09] LABS: Anisocytosis Slight; Basophils # (A) 0.1 k/uL (0-0.2); Basophils % (A) 1 %; Eosinophils % (A) 1 %; HCT 36.1 % (39.0-53.0); HGB 11.9 gm/dL (13.0-17.5); Lymphocytes % (A) 13 %; MCH 33.1 pg (25.0-35.0); MCV 100.2 fL (80.0-100.0); Macrocytosis Slight; Mean Platelet Volume 7.3; Monocytes # (A) 0.5 k/uL (0-1.0); Monocytes % (A) 7 %; Neutrophils % (A) 78 %; Platelet Count 188 k/uL (150-450); RBC 3.61 m/uL (4.30-5.90); RDW 16.4 % (11.5-15.5); WBC 7.7 k/uL (3.8-10.6)
[2020-03-19 04:24] LABS: ALT 16 U/L (4-49); AST 41 U/L (17-59); African American GFR (CKD) >90 (>60 ml/min/1.73 sqM); Albumin 3.3 g/dL (3.5-5.0); Alcohol <10 mg/dL; Alkaline Phosphatase 138 U/L (38-126); Amylase 52 U/L (30-110); Anion Gap 10 mmol/L; Blood Urea Nitrogen 7 mg/dL (9-20); Carbon Dioxide 23 mmol/L (22-30); Chloride 98 mmol/L (98-107); Glucose 124 mg/dL (74-99); Non-African American GFR(CKD) >90 (>60 ml/min/1.73 sqM); Potassium 3.8 mmol/L (3.5-5.1); Sodium 131 mmol/L (137-145); Total Bilirubin 1.1 mg/dL (0.2-1.3); Total Protein 6.7 g/dL (6.3-8.2)
[2020-03-19] MEDS ORDERED: HYDROmorphone 1 MG/ML 1 ML SYRINGE IVP STA (04:54)
[2020-03-19 05:38] LABS: Appearance,Urine Cloudy (Clear); Bacteria,Urine Occasional /hpf; Bilirubin,Urine 1+ (Negative); Blood,Urine Trace (Negative); Budding Yeast,Urine Many /hpf; Color,Urine Light Orange; Glucose,Urine (UA) Negative (Negative); Hyaline Casts,Urine 6 /lpf (0-2); Ketones,Urine Trace (Negative); Leukocyte Esterase,Urine Large (Negative); Mucus,Urine Few /hpf; Nitrite,Urine Negative (Negative); PH, Urine 6.5 (5.0-8.0); Protein,Urine 1+ (Negative); RBC,Urine 25 /hpf (0-5); Squamous Epithelial Cell,Urine <1 /hpf (0-4); WBC,Urine >182 /hpf (0-5)
[2020-03-19] MEDS ORDERED: MORPHINE SULFATE 4 MG/ML SYRINGE IVP STA (06:04)
[2020-03-19] MEDS ORDERED: diphenhydrAMINE 50 MG/ML 1 ML VIAL IVP PRN (06:04)
[2020-03-19] MEDS: SODIUM CHLORIDE 0.9% 1,000 ML IV SCH ×2 (07:44→19:25)
--- NOTE | 2020-03-19 07:48 | P.HPIM ---
History of Present Illness This is a pleasant 49 years old male with past medical history of moderate left hydronephrosis per ultrasound from 02/13/20. Other chronic medical problems including COPD, GERD, GI bleed, hypertension, hyperlipidemia, alcoholic hepa titis, bilateral lower extremity neuropathy, chronic back problems on morphine pump, and chronic urinary retention with self-catheterization chronic left hydronephrosis, also a cigarette smoker, he is a patient of Dr. stroud Patient presents because of nausea, vomiting and diarrhea. Days duration, [place] is vomiting about 3 times per day, he had 1 runny bowel movement yesterday, he complains from periumbilical abdominal pain redness on both sides, reactive to walk 10/10 in severity that lack sharp. patient self catheterizes himself about twice daily with the help of his , his been doing this for years, he is not sure why he has doing self- catheterization but states is due to stent placed for him in his left ureter secondary to irregular stone, currently patient states he has no stents. He is to follow up with urologist in [place], [place] however he is retired now and he does not follow up with urologist Also patient complaining of from cough with green phlegm. No chest pain or dyspnea. He smokes about 2 packs per day, he denies alcohol or illicit drugs Patient is tachycardic with heart rate 109-131, other vitals are stable. CBC is unremarkable except for mild anemia with hemoglobin 11.9, mild hyponatremia with 131, creatinine normal at 0.8, lactic acid is elevated at 2.7, liver enzymes are within normal limits. Urine analysis is suspicious for infection. Serum alcohol is negative In the emergency room received morphine, Protonix, 4 normal saline boluses, gi luiz 1 dose of Rocephin Review of Systems CONSTITUTIONAL: No fever, no malaise, no fatigue. HEENT: No recent visual problems or hearing problems. Denied any sore throat. CARDIOVASCULAR: No orthopnea, PND, no palpitations, no syncope. PULMONARY: No shortness of breath, no cough, no hemoptysis. GASTROINTESTINAL:. Normoactive bowel sounds. No hiccup NEUROLOGICAL: No headaches, no weakness, no numbness. HEMATOLOGICAL: Denies any bleeding or petechiae. GENITOURINARY: Denies any burning micturition, frequency, or urgency. MUSCULOSKELETAL/RHEUMATOLOGICAL: Denies any joint pain, swelling, or any muscle pain. ENDOCRINE: Denies any polyuria or polydipsia. Past Medical History Past Medical History: COPD, GERD/Reflux, GI Bleed, Hyperlipidemia, Hypertension, Liver Disease, Pneumonia, Prostate Disorder Additional Past Medical History / Comment(s): ETOH ABUSE RECURRENT PANCREATITIS, ALCOHOLIC HEPATITIS, NEUROPATHY BILATERAL FEET SINCE BACK SURGERY, hx of CHRONIC URINARY RETENTION DUE TO BACK PROBLEMS-SELF CATHS, CHRONIC L HYDROURETERONEPHROSIS D/T REFLUX, CHRONIC LOW BACK PAIN, HAS MORPHINE PAIN PUMP, decreased etoh use History of Any Multi-Drug Resistant Organisms: None Reported Past Surgical History: Back Surgery, Cholecystectomy, Orthopedic Surgery Additional Past Surgical History / Comment(s): EGDS, colonoscopy, bronchoscopy, BACK surgeries with TITANIUM PLATES [place] and CAGES, KIDNEY STONES removed per pt, SPINAL CORD STIMULATOR PLACED AND REMOVED ANCHORS REMAIN, ISMAEL KNEE ARTHROSCOPIES, PINKY FINGER RT HAND REATTATCHED. Past Anesthesia/Blood Transfusion Reactions: No Reported Reaction Past Psychological History: Anxiety, Depression Smoking Status: Current every day smoker Past Alcohol Use History: Occasional Past Drug Use History: None Reported - Past Family History Father Family Medical History: Diabetes Mellitus Additional Family Medical History / Comment(s): Mother Family Medical History: Dementia, Hyperlipidemia, Hypertension Additional Family Medical History / Comment(s): Mother is living. Medications and Allergies Home Medications Medication Instructions Recorded Confirmed Type Magnesium Oxide [Mag-Ox] 200 mg PO DAILY 09/18/17 11/28/19 History Betamethasone Valerate [Luxiq 1 applic TOPICAL BID 12/11/17 11/28/19 History 0.01%] Acetaminophen Tab [Tylenol] 650 mg PO Q6HR PRN tab 03/11/18 11/28/19 Rx Budesonide/Formoterol Fumarate 1 puff INHALATION DAILY 11/25/19 11/28/19 History [Symbicort 160-4.5 Mcg Inhaler] Cyclobenzaprine HCl 10 mg PO BID 11/25/19 11/28/19 History Folic Acid 1 mg PO DAILY 11/25/19 11/28/19 History Gabapentin [Neurontin] 400 mg PO TID 11/25/19 11/28/19 History HYDROcodone/APAP 5-325MG [[place] 1 tab PO BID 11/25/19 11/28/19 History 5-325] Lipase/Protease/Amylase [Creon Dr 2 tab PO TID 11/25/19 11/28/19 History 24,000 Units Capsule] Losartan [Cozaar] 50 mg PO DAILY 11/25/19 11/28/19 History Meloxicam 15 mg PO DAILY 11/25/19 11/28/19 History Metoprolol Tartrate [Lopressor] 25 mg PO BID 11/25/19 11/28/19 History Morphine Pain Pump 1 dose SQ DIRECTED 11/25/19 11/28/19 History Omeprazole [PriLOSEC] 40 mg PO TID 11/25/19 11/28/19 History hydrOXYzine HCL [Atarax] 25 mg PO HS 11/25/19 11/28/19 History Allergies Allergy/AdvReac Type Severity Reaction Status Date / Time No Known Allergies Allergy Verified 03/19/20 03:24 Physical Exam Vitals: Vital Signs Temp Pulse Resp BP Pulse Ox 03/19/20 06:12 109 H 16 158/99 100 03/19/20 05:03 108 H 18 148/88 100 03/19/20 03:22 99.2 F 131 H 20 147/93 96 Intake and Output 03/18/20 03/18/20 03/19/20 14:59 22:59 06:59 Other: Weight 74.843 kg GENERAL: The patient is alert and oriented x3, not in any acute distress. Well developed, well nourished. HEENT: Pupils are round and equally reacting to light. EOMI. No scleral icterus. No conjunctival pallor. Normocephalic, atraumatic. No pharyngeal erythema. No thyromegaly. CARDIOVASCULAR: S1 and S2 present. No murmurs, rubs, or gallops. PULMONARY: Chest is clear to auscultation, no wheezing or crackles. -ABDOMEN: Soft, nondistended, normoactive bowel sounds. No palpable organomegaly. Periumbilical tenderness, more on the right side, no rebound tenderness, he has morphine pump in the left lower quadrant MUSCULOSKELETAL: No joint swelling or deformity. EXTREMITIES: No cyanosis, clubbing, or pedal edema. NEUROLOGICAL: Gross neurological examination did not reveal any focal deficits. SKIN: No rashes. No petechiae Results CBC & Chem 7: 03/19/20 03:57 03/19/20 03:57 Labs: Abnormal Lab Results - Last 24 Hours (Table) 03/19/20 03/19/20 03/19/20 Range/Units 03:57 03:57 03:57 RBC 3.61 L (4.30-5.90) m/uL Hgb 11.9 L (13.0-17.5) gm/dL Hct 36.1 L (39.0-53.0) % MCV 100.2 H (80.0-100.0) fL RDW 16.4 H (11.5-15.5) % Sodium 131 L (137-145) mmol/L BUN 7 L (9-20) mg/dL Glucose 124 H (74-99) mg/dL Plasma Lactic Acid Luiz (0.7-2.0) mmol/L Alkaline Phosphatase 138 H (38-126) U/L Albumin 3.3 L (3.5-5.0) g/dL Urine Protein 1+ H (Negative) Urine Ketones Trace H (Negative) Urine Blood Trace H (Negative) Urine Bilirubin 1+ H (Negative) Ur Leukocyte Esterase Large H (Negative) Urine RBC 25 H (0-5) /hpf Urine WBC >182 H (0-5) /hpf Urine WBC Clumps Few H (None) /hpf Urine Bacteria Occasional H (None) /hpf Hyaline Casts 6 H (0-2) /lpf Urine Mucus Few H (None) /hpf Urine Yeast (Budding) Many H (None) /hpf 03/19/20 Range/Units 03:57 RBC (4.30-5.90) m/uL Hgb (13.0-17.5) gm/dL Hct (39.0-53.0) % MCV (80.0-100.0) fL RDW (11.5-15.5) % Sodium (137-145) mmol/L BUN (9-20) mg/dL Glucose (74-99) mg/dL Plasma Lactic Acid Luiz 2.7 H* (0.7-2.0) mmol/L Alkaline Phosphatase (38-126) U/L Albumin (3.5-5.0) g/dL Urine Protein (Negative) Urine Ketones (Negative) Urine Blood (Negative) Urine Bilirubin (Negative) Ur Leukocyte Esterase (Negative) Urine RBC (0-5) /hpf Urine WBC (0-5) /hpf Urine WBC Clumps (None) /hpf Urine Bacteria (None) /hpf Hyaline Casts (0-2) /lpf Urine Mucus (None) /hpf Urine Yeast (Budding) (None) /hpf Assessment and Plan Assessment: Acute urinary tract infection, Related to self-catheterization Reactive acute gastroenteritis Dehydration with elevated lactic acid Chronic left hydronephrosis Hypertension Hyperlipidemia Gastroesophageal reflux disease History of alcoholic hepatitis History of GI bleed Chronic back problem on morphine pump Chronic urinary retention with self-catheterization Nicotine dependence Lower extremity neuropathy line benign prostatic hypertrophy Anxiety, depression, not active issue, patient denies suicidal ideation Plan: This is a pleasant 49 years old male who presents with acute UTI and gastroenteritis clinical picture. Continue with Rocephin, follow-up urine culture. Follow-up lactic acid. Continue with IV hydration Check chest x-ray, call urology consult Labs and medication were reviewed.. Continue same treatment. Continue with symptomatic treatment. Resume home medication. Monitor lytes and vitals. DVT and GI prophylaxis. Further recommendations depends on the clinical course of the patient DVT prophylaxis: Subcutaneous heparin GI Prophylaxis: Pepcid PT/OT: Pending Prognosis is guarded
--- NOTE | 2020-03-19 08:14 | XR ---
EXAMINATION TYPE: XR chest 2V DATE OF EXAM: 03/19/2020 COMPARISON: Prior chest x-ray dated 12/21/2017 HISTORY: Cough TECHNIQUE: Frontal and lateral views of the chest are obtained. FINDINGS: Question some perihilar density. There is no pleural effusion or pneumothorax seen. The c ardiac silhouette size is within normal limits. Thoracic cord stimulator is present at the midthoraci c spine. The osseous structures are intact. IMPRESSION: Question some perihilar airspace disease, correlate for pneumonia, follow-up suggested.
[2020-03-19] MEDS: MORPHINE SULFATE 4 MG/ML SYRINGE IVP PRN ×4 (10:28→23:01)
[2020-03-19] MEDS: NICOTINE 21MG/24HR PATCH TRANSDERM SCH (10:28)
--- NOTE | 2020-03-19 10:56 | CT ---
EXAMINATION TYPE: CT abdomen pelvis wo con DATE OF EXAM: 03/19/2020 COMPARISON: CT abdomen 04/03/2018. Ultrasound kidneys 02/13/2020. HISTORY: Hydronephrosis. History of back surgery, cholecystectomy, renal stone removal, spinal cord s timulator placed and removed with anchors remaining. Automated exposure control for dose reduction was used. TECHNIQUE: Helical acquisition of images was performed from the lung bases through the pelvis. CONTRAST: Performed without oral or intravenous contrast. FINDINGS: LUNG BASES: Minimal atelectasis. No significant pericardial effusion. No pleural effusion. LIVER: Fatty liver. There is likely fatty infiltration near the falciform ligament. Hypodense area of the anterior right liver indeterminate. BILIARY SYSTEM: Status post cholecystectomy. No intrahepatic or extrahepatic biliary ductal dilatatio n. PANCREAS: There is atrophy of the pancreatic tail there are coarse calcifications of the pancreatic n gretel and uncinate process likely sequela of chronic pancreatitis. There is hazy appearance around the pancreatic head which is likely related to the mesenteric haziness, not definitively acute pancreatit is. SPLEEN: Not enlarged. Splenule. ADRENALS: Normal. KIDNEYS: Redemonstrated atrophy of the left kidney. There is left extrarenal pelvis redemonstrated wi th fullness of the renal collecting system, with no significant hydronephrosis. There is no right hyd ronephrosis. There is left mild diffuse hydroureter. There is urothelial thickening of the left renal collecting system and ureter redemonstrated. BOWEL: Small to moderate hiatal hernia. No obstruction or thickening. Normal appendix. PERITONEUM: No pneumoperitoneum. No free fluid. There is haziness of the mesenteric root prominent m esenteric lymph nodes. LYMPH NODES: Prominent nonenlarged mesenteric lymph nodes at the mesenteric root. PELVIS: Underdistended urinary bladder with significant thickening of the bladder wall particularly a t the anterior dome. VASCULATURE: No abdominal aortic aneurysm. MUSCULOSKELETAL: Degenerative changes of the spine. There is postsurgical posterior fixation of L4-S 1, with grade 1 anterolisthesis of L5 on S1. Spinal stimulator leads are seen within the spinal canal . Spinal stimulator device seen within the left lower quadrant anterior abdominal subcutaneous tissue IMPRESSION: 1. There is left extrarenal pelvis and mild fullness of the left renal collecting system. Redemonstra tulio urothelial thickening from the left renal collecting system to the left UVJ. There is also signif icant urinary bladder wall thickening. Recommend correlation with cystoscopy. 2. Haziness of the mesenteric root prominent enlarged mesenteric lymph nodes. 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 3. Fatty liver. Multifocal areas of hypodensity within the liver likely represents focal fatty infilt ration, however is indeterminate at the right anterior lobe. Short-term follow-up for additional imag ing evaluation.
[2020-03-19] MEDS: HYDROmorphone 1 MG/ML 1 ML SYRINGE IVP PRN (19:40)
[2020-03-19] MEDS: guaiFENesin 600 MG TABLET.ER PO PRN (23:19)
[2020-03-20] MEDS: HYDROmorphone 1 MG/ML 1 ML SYRINGE IVP PRN ×5 (02:48→20:18)
[2020-03-20] MEDS: NICOTINE 21MG/24HR PATCH TRANSDERM SCH (07:53)
--- NOTE | 2020-03-20 08:06 | XR ---
EXAMINATION TYPE: XR chest 1V DATE OF EXAM: 03/20/2020 CLINICAL HISTORY: Difficulty breathing progress study. TECHNIQUE: Single AP portable upright view of the chest is obtained. COMPARISON: Chest x-ray from one day earlier and older studies. FINDINGS: No new suspicious focal airspace opacity, pleural effusion, or pneumothorax seen bilateral ly. Improved aeration perihilar regions. Cardiac silhouette size stable and within normal limits. Spi nal stimulator device in the mid to lower thoracic spinal canal redemonstrated. Cholecystectomy clips noted. IMPRESSION: Improved aeration perihilar region. No new infiltrate.
[2020-03-20] MEDS: MAGNESIUM OXIDE 400 MG TAB PO SCH (11:08)
[2020-03-20] MEDS: METOPROLOL TARTRATE 25 MG TAB PO SCH ×2 (11:08→20:57)
[2020-03-20] MEDS: SODIUM CHLORIDE 0.9% 1,000 ML IV SCH ×2 (11:08→22:50)
[2020-03-20] MEDS: LOSARTAN 50 MG TAB PO SCH (11:08)
[2020-03-20] MEDS: LIPASE 5,000/PROTEASE 17,000/AMYLASE 24,000 PO SCH ×2 (11:52→17:15)
--- NOTE | 2020-03-20 13:30 | P.GSCN ---
History of Present Illness Consult date: 03/20/20 Reason for Consult: UTI, Hydronephrosis Requesting physician: Socorro Barragan History of present illness: The patient is a 49-year-old male admitted through the emergency room for evaluation of intractable vomiting and abdominal pain. He has a history of acute and chronic pancreatitis related to alcohol abuse. CT scan of the abdomen and pelvis showed evidence of left renal atrophy, fullness of the left intrarenal collecting system, and bladder wall thickening. I was asked to see the patient for further evaluation. This patient has been seen by our group in the past. He has a history of chronic urinary retention secondary to an atonic bladder treated with intermittent catheterization. He has chronic left hydroureteronephrosis secondary to reflux of urine from his bladder into his left ureter. The patient is able to void on his own only if he has over 700 cc in his bladder. He has been previously encouraged to catheterize frequently enough so that he did not have over 500 cc in his bladder to minimize any potential damage to the left kidney. Unfortunately, the patient says that he was previously catheterized 3 times daily but now only a couple times per month. This is usually performed by his . Review of Systems - Gastrointestinal Reports abdominal pain, Reports nausea, Reports vomiting - Genitourinary Reports dysuria, Denies hematuria Past Medical History Past Medical History: COPD, GERD/Reflux, GI Bleed, Hyperlipidemia, Hypertension, Liver Disease, Pneumonia, Prostate Disorder Additional Past Medical History / Comment(s): ETOH ABUSE RECURRENT PANCREATITIS, ALCOHOLIC HEPATITIS, NEUROPATHY BILATERAL FEET SINCE BACK SURGERY, hx of CHRONIC URINARY RETENTION DUE TO BACK PROBLEMS-SELF CATHS, CHRONIC L HYDROURETERONEPHROSIS D/T REFLUX, CHRONIC LOW BACK PAIN, HAS MORPHINE PAIN PUMP, decreased etoh use History of Any Multi-Drug Resistant Organisms: None Reported Past Surgical History: Back Surgery, Cholecystectomy, Orthopedic Surgery Additional Past Surgical History / Comment(s): EGDS, colonoscopy, bronchoscopy, BACK surgeries with TITANIUM PLATES [place] and CAGES, KIDNEY STONES removed per pt, SPINAL CORD STIMULATOR PLACED AND REMOVED ANCHORS REMAIN, ISMAEL KNEE A RTHROSCOPIES, PINKY FINGER RT HAND REATTATCHED. Past Anesthesia/Blood Transfusion Reactions: No Reported Reaction Past Psychological History: Anxiety, Depression Smoking Status: Current every day smoker Past Alcohol Use History: Occasional Past Drug Use History: None Reported - Past Family History Father Family Medical History: Diabetes Mellitus Additional Family Medical History / Comment(s): Mother Family Medical History: Dementia, Hyperlipidemia, Hypertension Additional Family Medical History / Comment(s): Mother is living. Medications and Allergies Home Medications Medication Instructions Recorded Confirmed Type Magnesium Oxide [Mag-Ox] 200 mg PO DAILY 09/18/17 03/19/20 History Cyclobenzaprine HCl 10 mg PO BID 11/25/19 03/19/20 History Folic Acid 1 mg PO DAILY 11/25/19 03/19/20 History Gabapentin [Neurontin] 400 mg PO TID 11/25/19 03/19/20 History HYDROcodone/APAP 5-325MG [[place] 1 tab PO DAILY 11/25/19 03/19/20 History 5-325] Lipase/Protease/Amylase [[place] [address] 2 tab PO TID 11/25/19 03/19/20 History 24,000 Units Capsule] Losartan [Cozaar] 50 mg PO DAILY 11/25/19 03/19/20 History Meloxicam 15 mg PO DAILY 11/25/19 03/19/20 History Metoprolol Tartrate [Lopressor] 25 mg PO BID 11/25/19 03/19/20 History Morphine Pain Pump 1 dose SQ DIRECTED 11/25/19 03/19/20 History Omeprazole [PriLOSEC] 40 mg PO DAILY 11/25/19 03/19/20 History Furosemide [Lasix] 20 mg PO DAILY 03/19/20 03/19/20 History Allergies Allergy/AdvReac Type Severity Reaction Status Date / Time No Known Allergies Allergy Verified 03/19/20 09:16 Surgical - Exam Vital Signs Temp Pulse Resp BP Pulse Ox 99.2 F 131 H 20 147/93 96 03/19/20 03:22 03/19/20 03:22 03/19/20 03:22 03/19/20 03:22 03/19/20 03:22 - General well developed, well nourished, no distress - Respiratory normal respiratory effort - Abdomen Soft, non-distended, with no palpable mass. Epigastric tenderness is noted, without guarding or rebound. A morphine pump is implanted subcutaneously in the left upper quadrant. - Genitourinary normal penis with no external lesions, testicles non-tender - Psychiatric oriented to time, oriented to person, oriented to place, speech is normal, memory intact Results - Labs 03/19/20 03:57 03/19/20 03:57 Microbiology - Last 24 Hours (Table) 03/19/20 03:57 Urine Culture - Preliminary Urine,Voided - Imaging CT scan - abdomen: report reviewed, image reviewed Assessment and Plan (1) Incomplete bladder emptying Current Visit: Yes Status: Acute Code(s): R33.9 - RETENTION OF URINE, UNSPE CIFIED SNOMED Code(s): 402701692 Plan: The patient is admitted with intractable hyperemesis, likely of viral etiology. A urine culture has shown Jolie species, which likely represents colonization and is unlikely to be the source of his current symptomatology. I am concerned that he is catheterizing himself so infrequently. Bladder Scan will be utilized to assess bladder emptying. Time with Patient: Greater than 30
[2020-03-20] MEDS: GABAPENTIN 400 MG CAP PO SCH ×2 (15:38→21:00)
[2020-03-20] MEDS: CYCLOBENZAPRINE 10 MG TAB PO SCH (20:57)
[2020-03-20] MEDS: ONDANSETRON 4 MG/2 ML VIAL IVP PRN (21:26)
--- NOTE | 2020-03-20 21:48 | P.PN ---
Subjective Progress Note Date: 03/20/20 Principal diagnosis: Gastroenteritis Mr. Pro is a 49-year-old male with a past medical history of COPD, GERD, hypertension, hyperlipidemia, alcoholic hepatitis, bilateral lower extremity neuropathy, chronic low back problems on morphine pump, chronic urinary retenti on with self-catheterization coming in with a chief complaint of nausea vomiting and diarrhea. At the time of admission patient was found to have a temperature and also tachycardic with elevated lactic acid. He also had urine analysis that was showing budding yeast with large leukocyte esterase. Patient has history of self-catheterization due to neurogenic bladder. He is currently being treated with ceftriaxone. On 03/20/2020-patient is comfortably lying in bed appears to be no acute distre ss. Patient states his nausea and vomiting has improved. He does not have diarrhea. Patient denies having any hematuria or dysuria. He denies having any fevers chills or rigors. No cough or difficulty in breathing. He still complains of loss of appetite. He denies having any chest pain or palpitations. On reviewing the vitals patient has a temperature of 97.9, heart rate of 81, respiratory rate of 18, saturating at 100% on room air. Repeat lactic acid level is 1.7. Patient's urine culture is positive for Jolie species, not albicans or glabrata. Active Medications Lipase/Protease/Amylase (Lipase 5,000/Protease 17,000/Amylase 24,000) 9 each PO TID-W/MEALS [facility] Last Admin: 03/20/20 17:15 Dose: 9 each Documented by: Cyclobenzaprine HCl (Cyclobenzaprine 10 Mg Tab) 10 mg PO BID [facility] Last Admin: 03/20/20 20:57 Dose: 10 mg Documented by: Diphenhydramine HCl (Diphenhydramine 50 Mg/Ml 1 Ml Vial) 25 mg IVP Q6HR PRN PRN Reason: Allergy Symptoms Last Admin: 03/19/20 19:39 Dose: 25 mg Documented by: Folic Acid (Folic Acid 1 Mg Tab) 1 mg PO DAILY [facility] Furosemide (Furosemide 20 Mg Tab) 20 mg PO DAILY [facility] Gabapentin (Gabapentin 400 Mg Cap) 400 mg PO TID [facility] Last Admin: 03/20/20 21:00 Dose: 400 mg Documented by: Guaifenesin (Guaifenesin 600 Mg Tablet.Er) 600 mg PO Q12HR PRN PRN Reason: Cough Last Admin: 03/19/20 23:19 Dose: 600 mg Documented by: Hydromorphone HCl (Hydromorphone 1 Mg/Ml 1 Ml Syringe) 1 mg IVP Q4HR PRN PRN Reason: Pain Last Admin: 03/20/20 20:18 Dose: 1 mg Documented by: Sodium Chloride (Saline 0.9%) 1,000 mls @ 75 mls/hr IV .[id number] [facility] Last Admin: 03/20/20 11:08 Dose: 75 mls/hr Documented by: Losartan Potassium (Losartan 50 Mg Tab) 50 mg PO DAILY [facility] Last Admin: 03/20/20 11:08 Dose: 50 mg Documented by: Magnesium Oxide (Magnesium Oxide 400 Mg Tab) 400 mg PO DAILY [facility] Last Admin: 03/20/20 11:08 Dose: 400 mg Documented by: Metoprolol Tartrate (Metoprolol Tartrate 25 Mg Tab) 25 mg PO BID [facility] Last Admin: 03/20/20 20:57 Dose: 25 mg Documented by: Morphine Sulfate (Morphine Sulfate 4 Mg/Ml Syringe) 4 mg IVP Q4HR PRN PRN Reason: Pain Last Admin: 03/19/20 23:01 Dose: 4 mg Documented by: Nicotine (Nicotine 21mg/24hr Patch) 1 patch TRANSDERM DAILY [facility] Last Admin: 03/20/20 07:53 Dose: 1 patch Documented by: Ondansetron HCl (Ondansetron 4 Mg/2 Ml Vial) 4 mg IVP Q6HR PRN PRN Reason: Nausea And Vomiting Last Admin: 03/20/20 21:26 Dose: 4 mg Documented by: Pantoprazole Sodium (Pantoprazole 40 Mg Tablet) 40 mg PO AC-BRKFST [facility] Objective - Vital Signs Vital signs: Vital Signs Temp 98.4 F 03/20/20 07:51 Pulse 100 03/20/20 07:51 Resp 18 03/20/20 07:51 BP 178/95 03/20/20 07:51 Pulse Ox 99 03/20/20 07:51 Intake & Output 03/19/20 03/20/20 03/20/20 18:59 06:59 18:59 Intake Total 300 2350 Balance 300 2350 Weight 74.843 kg Intake: Intake, IV Titration 900 Amount Sodium Chloride 0.9% 1, 900 000 ml @ 75 mls/hr IV . [id number] [facility] Rx#:[id number] Oral 300 1450 Other: Voiding Method Toilet Toilet Self-Catheterization Self-Catheterization # Voids 1 2 # Bowel Movements 2 - Exam GENERAL: The patient is alert and oriented x3, not in any acute distress. Well developed, well nourished. HEENT: Pupils are round and equally reacting to light. EOMI. No scleral icterus. No conjunctival pallor. Normocephalic, atraumatic. No pharyngeal erythema. No thyromegaly. CARDIOVASCULAR: S1 and S2 present. No murmurs, rubs, or gallops. PULMONARY: Chest is clear to auscultation, no wheezing or crackles. -ABDOMEN: Soft, nondistended, normoactive bowel sounds. No palpable organomegaly. Non-tender, he has morphine pump in the left lower quadrant MUSCULOSKELETAL: No joint swelling or deformity. EXTREMITIES: No cyanosis, clubbing, or pedal edema. NEUROLOGICAL: Gross neurological examination did not reveal any focal deficits. SKIN: No rashes. No petechiae - Labs CBC & Chem 7: 03/19/20 03:57 03/19/20 03:57 Labs: Microbiology - Last 24 Hours (Table) 03/19/20 03:57 Urine Culture - Final Urine,Voided Jolie sp,not albicans/galbr Assessment and Plan Assessment: Assessment: Acute gastroenteritis - possible viral in etiology Dehydration with elevated lactic acid Chronic left hydronephrosis Hypertension Hyperlipidemia Gastroesophageal reflux disease History of alcoholic hepatitis History of GI bleed Chronic back problem on morphine pump Chronic urinary retention with self-catheterization Nicotine dependence Lower extremity neuropathy line benign prostatic hypertrophy Anxiety, depression, not active issue, patient denies suicidal ideation Plan: Patient's urine culture came back positive for Jolie species not albicans or glabrata. It is possibly colonization as the patient has history of self- catheterization. Will discontinue ceftriaxone. Patient's lactic acidosis improved after IV fluids. COVID 19 -pending . We will repeat CBC and CMP for tomorrow morning. Continue with the current medication regimen. Further recommendations depending upon the progress of the patient.
[2020-03-21] MEDS: HYDROmorphone 1 MG/ML 1 ML SYRINGE IVP PRN (01:17)
--- NOTE | 2020-03-21 07:38 | P.PN ---
Progress Note - Text Progress Note Date: 03/21/20 Mr. Pro was straight catheterized yesterday for 210 mL. He denies voiding difficulty. The left ureteral changes seen on CT scan are felt to be chronic. Arrangements will be made for him to undergo outpatient cystoscopy in view of the finding of bladder wall thickening on CT scan. Please notify me if I can be of any further assistance.
[2020-03-21] MEDS: FUROSEMIDE 20 MG TAB PO SCH (08:24)
[2020-03-21] MEDS: NICOTINE 21MG/24HR PATCH TRANSDERM SCH (08:24)
[2020-03-21] MEDS: CYCLOBENZAPRINE 10 MG TAB PO SCH ×2 (08:24→21:27)
[2020-03-21] MEDS: METOPROLOL TARTRATE 25 MG TAB PO SCH ×2 (08:24→21:27)
[2020-03-21] MEDS: FOLIC ACID 1 MG TAB PO SCH (08:25)
[2020-03-21] MEDS: MORPHINE SULFATE 4 MG/ML SYRINGE IVP PRN ×4 (08:25→21:29)
[2020-03-21] MEDS: LOSARTAN 50 MG TAB PO SCH (08:25)
[2020-03-21] MEDS: LIPASE 5,000/PROTEASE 17,000/AMYLASE 24,000 PO SCH ×3 (08:25→17:07)
[2020-03-21] MEDS: PANTOPRAZOLE 40 MG TABLET PO SCH (08:25)
[2020-03-21] MEDS: GABAPENTIN 400 MG CAP PO SCH ×3 (08:25→21:27)
[2020-03-21] MEDS: MAGNESIUM OXIDE 400 MG TAB PO SCH (08:25)
[2020-03-21 08:45] LABS: Anisocytosis Slight; Basophils % (A) 0 %; Eosinophils # (A) 0.1 k/uL (0-0.7); Eosinophils % (A) 1 %; HCT 33.9 % (39.0-53.0); HGB 10.8 gm/dL (13.0-17.5); Lymphocytes # (A) 0.8 k/uL (1.0-4.8); Lymphocytes % (A) 15 %; MCH 32.9 pg (25.0-35.0); MCHC 31.9 g/dL (31.0-37.0); MCV 103.2 fL (80.0-100.0); Macrocytosis Moderate; Mean Platelet Volume 7.7; Monocytes # (A) 0.5 k/uL (0-1.0); Monocytes % (A) 8 %; Neutrophils # (A) 4.2 k/uL (1.3-7.7); Neutrophils % (A) 75 %; Platelet Count 149 k/uL (150-450); RBC 3.28 m/uL (4.30-5.90); RDW 16.8 % (11.5-15.5); WBC 5.6 k/uL (3.8-10.6)
[2020-03-21 08:57] LABS: ALT 24 U/L (4-49); AST 41 U/L (17-59); African American GFR (CKD) >90 (>60 ml/min/1.73 sqM); Albumin 2.5 g/dL (3.5-5.0); Alkaline Phosphatase 117 U/L (38-126); Anion Gap 3 mmol/L; Blood Urea Nitrogen 7 mg/dL (9-20); Calcium 7.7 mg/dL (8.4-10.2); Carbon Dioxide 22 mmol/L (22-30); Chloride 104 mmol/L (98-107); Glucose 109 mg/dL (74-99); Non-African American GFR(CKD) >90 (>60 ml/min/1.73 sqM); Potassium 3.5 mmol/L (3.5-5.1); Sodium 129 mmol/L (137-145); Total Protein 5.6 g/dL (6.3-8.2)
[2020-03-21] MEDS: SODIUM CHLORIDE 0.9% 1,000 ML IV SCH (12:35)
[2020-03-21] MEDS: ONDANSETRON 4 MG/2 ML VIAL IVP PRN (17:17)
--- NOTE | 2020-03-21 22:42 | P.PN ---
Subjective Progress Note Date: 03/21/20 Principal diagnosis: Gastroenteritis Mr. Pro is a 49-year-old male with a past medical history of COPD, GERD, hypertension, hyperlipidemia, alcoholic hepatitis, bilateral lower extremity neuropathy, chronic low back problems on morphine pump, chronic urinary retenti on with self-catheterization coming in with a chief complaint of nausea vomiting and diarrhea. At the time of admission patient was found to have a temperature and also tachycardic with elevated lactic acid. He also had urine analysis that was showing budding yeast with large leukocyte esterase. Patient has history of self-catheterization due to neurogenic bladder. He is currently being treated with ceftriaxone. On 03/20/2020-patient is comfortably lying in bed appears to be no acute distre ss. Patient states his nausea and vomiting has improved. He does not have diarrhea. Patient denies having any hematuria or dysuria. He denies having any fevers chills or rigors. No cough or difficulty in breathing. He still complains of loss of appetite. He denies having any chest pain or palpitations. On reviewing the vitals patient has a temperature of 97.9, heart rate of 81, respiratory rate of 18, saturating at 100% on room air. Repeat lactic acid level is 1.7. Patient's urine culture is positive for Jolie species, not albicans or glabrata. On 03/21/2020 - patient is comfortably sitting up in the drinking his juice. Patient states that his appetite improved. Denies having any nausea or vomiting. He does not have any diarrhea. As per the nursing staff report, patient had 800 MLS urine after catheterization. Patient denies having any fevers chills or rigors. No cough or difficulty in breathing. No chest pain or palpitations. No dysuria or hematuria. On reviewing the vitals Temperature of 98.3, heart rate of 92, respiratory 16, blood pressure 147 x 108, saturating at 98% on room air. On reviewing his labs white count of 5.6, hemoglobin 10.8, sodium of 129, potassium 3.5, chloride 104, BUN 7, creatinine 0.69. Active Medications Lipase/Protease/Amylase (Lipase 5,000/Protease 17,000/Amylase 24,000) 9 each PO TID-W/MEALS [facility] Last Admin: 03/21/20 17:07 Dose: Not Given Documented by: Cyclobenzaprine HCl (Cyclobenzaprine 10 Mg Tab) 10 mg PO BID [facility] Last Admin: 03/21/20 21:27 Dose: 10 mg Documented by: Diphenhydramine HCl (Diphenhydramine 50 Mg/Ml 1 Ml Vial) 25 mg IVP Q6HR PRN PRN Reason: Allergy Symptoms Last Admin: 03/19/20 19:39 Dose: 25 mg Documented by: Folic Acid (Folic Acid 1 Mg Tab) 1 mg PO DAILY [facility] Last Admin: 03/21/20 08:25 Dose: 1 mg Documented by: Furosemide (Furosemide 20 Mg Tab) 20 mg PO DAILY [facility] Last Admin: 03/21/20 08:24 Dose: 20 mg Documented by: Gabapentin (Gabapentin 400 Mg Cap) 400 mg PO TID [facility] Last Admin: 03/21/20 21:27 Dose: 400 mg Documented by: Guaifenesin (Guaifenesin 600 Mg Tablet.Er) 600 mg PO Q12HR PRN PRN Reason: Cough Last Admin: 03/19/20 23:19 Dose: 600 mg Documented by: Hydromorphone HCl (Hydromorphone 1 Mg/Ml 1 Ml Syringe) 1 mg IVP Q4HR PRN PRN Reason: Pain Last Admin: 03/21/20 01:17 EDT Dose: 1 mg Documented by: Losartan Potassium (Losartan 50 Mg Tab) 50 mg PO DAILY [facility] Last Admin: 03/21/20 08:25 Dose: 50 mg Documented by: Magnesium Oxide (Magnesium Oxide 400 Mg Tab) 400 mg PO DAILY [facility] Last Admin: 03/21/20 08:25 Dose: 400 mg Documented by: Metoprolol Tartrate (Metoprolol Tartrate 25 Mg Tab) 25 mg PO BID [facility] Last Admin: 03/21/20 21:27 Dose: 25 mg Documented by: Morphine Sulfate (Morphine Sulfate 4 Mg/Ml Syringe) 4 mg IVP Q4HR PRN PRN Reason: Pain Last Admin: 03/21/20 21:29 Dose: 4 mg Documented by: Nicotine (Nicotine 21mg/24hr Patch) 1 patch TRANSDERM DAILY [facility] Last Admin: 03/21/20 08:24 Dose: 1 patch Documented by: Ondansetron HCl (Ondansetron 4 Mg/2 Ml Vial) 4 mg IVP Q6HR PRN PRN Reason: Nausea And Vomiting Last Admin: 03/21/20 17:17 Dose: 4 mg Documented by: Pantoprazole Sodium (Pantoprazole 40 Mg Tablet) 40 mg PO AC-BRKFST [facility] Last Admin: 03/21/20 08:25 Dose: 40 mg Documented by: Objective - Vital Signs Vital signs: Vital Signs Temp 98.5 F 03/21/20 08:23 Pulse 81 03/21/20 08:23 Resp 16 03/21/20 14:47 BP 173/88 03/21/20 08:23 Pulse Ox 98 03/21/20 08:23 Intake & Output 03/20/20 03/21/20 03/21/20 19:59 06:59 18:59 Intake Total Output Total 900 Balance -900 Intake: Intake, IV Titration Amount Sodium Chloride 0.9% 1, 000 ml @ 75 mls/hr IV . [id number] [facility] Rx#:[id number] Oral Output: Urine 900 Straight Other: Voiding Method Toilet Self-Catheterization # Voids - Exam GENERAL: The patient is alert and oriented x3, not in any acute distress. Well developed, well nourished. HEENT: Pupils are round and equally reacting to light. EOMI. No scleral icterus. No conjunctival pallor. Normocephalic, atraumatic. No pharyngeal erythema. No thyromegaly. CARDIOVASCULAR: S1 and S2 present. No murmurs, rubs, or gallops. PULMONARY: Chest is clear to auscultation, no wheezing or crackles. -ABDOMEN: Soft, nondistended, normoactive bowel sounds. No palpable organomegaly. Non-tender, he has morphine pump in the left lower quadrant MUSCULOSKELETAL: No joint swelling or deformity. EXTREMITIES: No cyanosis, clubbing, or pedal edema. NEUROLOGICAL: Gross neurological examination did not reveal any focal deficits. - Labs CBC & Chem 7: 03/21/20 07:55 03/21/20 07:55 Labs: Abnormal Lab Results - Last 24 Hours (Table) 03/21/20 03/21/20 Range/Units 07:55 07:55 RBC 3.28 L (4.30-5.90) m/uL Hgb 10.8 L (13.0-17.5) gm/dL Hct 33.9 L (39.0-53.0) % MCV 103.2 H (80.0-100.0) fL RDW 16.8 H (11.5-15.5) % Plt Count 149 L (150-450) k/uL Lymphocytes # 0.8 L (1.0-4.8) k/uL Sodium 129 L (137-145) mmol/L BUN 7 L (9-20) mg/dL Glucose 109 H (74-99) mg/dL Calcium 7.7 L (8.4-10.2) mg/dL Total Protein 5.6 L (6.3-8.2) g/dL Albumin 2.5 L (3.5-5.0) g/dL Microbiology - Last 24 Hours (Table) 03/20/20 03:03 Gram Stain - Preliminary Sputum Sputum Culture - Preliminary Gram Neg Bacilli Assessment and Plan Assessment: Assessment: Acute gastroenteritis - possible viral in etiology Dehydration with elevated lactic acid Hyponatremia Chronic left hydronephrosis Hypertension Hyperlipidemia Gastroesophageal reflux disease History of alcoholic hepatitis History of GI bleed Chronic back problem on morphine pump Chronic urinary retention with self-catheterization Nicotine dependence Lower extremity neuropathy line benign prostatic hypertrophy Anxiety, depression, not active issue, patient denies suicidal ideation Moderate protein calorie malnutrition Plan: Patient's urine culture came back positive for Jolie species not albicans or glabrata. It is possibly colonization as the patient has history of self-catheterization. Discontinued ceftriaxone. Patient's lactic acidosis improved after IV fluids. COVID 19 still -pending . We will repeat CBC and CMP for tomorrow morning. As his Sodium is low , will check Urine lytes and osmo lality . Continue with the current medication regimen. His appetite is better today, so will advance diet as tolerated. Further recommendations depending upon the progress of the patient.
[2020-03-21] MEDS ORDERED: ENOXAPARIN 40 MG/0.4 ML SYRINGE SQ STA (22:49)
[2020-03-22] MEDS: PANTOPRAZOLE 40 MG TABLET PO SCH (00:16)
[2020-03-22] MEDS: MORPHINE SULFATE 4 MG/ML SYRINGE IVP PRN ×3 (05:04→13:57)
[2020-03-22 08:05] LABS: Anisocytosis Slight; Basophils % (A) 0 %; Eosinophils % (A) 1 %; HCT 30.6 % (39.0-53.0); Lymphocytes # (A) 0.6 k/uL (1.0-4.8); Lymphocytes % (A) 14 %; MCH 33.6 pg (25.0-35.0); MCHC 32.5 g/dL (31.0-37.0); MCV 103.3 fL (80.0-100.0); Macrocytosis Moderate; Monocytes # (A) 0.4 k/uL (0-1.0); Monocytes % (A) 10 %; Neutrophils # (A) 3.2 k/uL (1.3-7.7); Neutrophils % (A) 73 %; Platelet Count 119 k/uL (150-450); RBC 2.96 m/uL (4.30-5.90); RDW 16.1 % (11.5-15.5); WBC 4.3 k/uL (3.8-10.6)
[2020-03-22 08:42] LABS: African American GFR (CKD) >90 (>60 ml/min/1.73 sqM); Anion Gap 2 mmol/L; Blood Urea Nitrogen 7 mg/dL (9-20); Calcium 7.7 mg/dL (8.4-10.2); Carbon Dioxide 23 mmol/L (22-30); Chloride 101 mmol/L (98-107); Glucose 122 mg/dL (74-99); Non-African American GFR(CKD) >90 (>60 ml/min/1.73 sqM); Potassium 3.9 mmol/L (3.5-5.1); Sodium 126 mmol/L (137-145)
[2020-03-22] MEDS: LIPASE 5,000/PROTEASE 17,000/AMYLASE 24,000 PO SCH ×3 (08:45→16:58)
[2020-03-22] MEDS: CYCLOBENZAPRINE 10 MG TAB PO SCH ×2 (08:45→20:46)
[2020-03-22] MEDS: METOPROLOL TARTRATE 25 MG TAB PO SCH ×2 (08:45→20:46)
[2020-03-22] MEDS: LOSARTAN 50 MG TAB PO SCH (08:45)
[2020-03-22] MEDS: FOLIC ACID 1 MG TAB PO SCH (08:46)
[2020-03-22] MEDS: GABAPENTIN 400 MG CAP PO SCH ×3 (08:46→20:46)
[2020-03-22] MEDS: FUROSEMIDE 20 MG TAB PO SCH (08:46)
[2020-03-22] MEDS: MAGNESIUM OXIDE 400 MG TAB PO SCH (08:46)
[2020-03-22] MEDS: NICOTINE 21MG/24HR PATCH TRANSDERM SCH (08:46)
--- NOTE | 2020-03-22 13:22 | P.NPCON ---
History of Present Illness - Reason for Consult hyponatremia - History of Present Illness Reason for consultation: Hyponatremia History of present illness: Patient is a 49-year-old male seen in consultation for hyponatremia. Patient's sodium level on admission was 131 and is down to 126 today. He did receive IV fluids on admission and was also maintained on Lasix 20 mg once daily. Patient is not hypotensive. He came to the hospital with vomiting and poor intake for about 4-5 days duration. Patient states he has a chronic cough as he is a smoker. He denies any fever or chills. Denies any body aches. He was also having multiple episodes of vomiting prior to admission but none now. Patient s tates he just ate a hamburger and is now having milk for lunch. He denies any history of malignancy. Denies any personal or family history of kidney disease. No edema. No chest pain or shortness of breath. He is off IV fluids. Denies regular use of nonsteroidals. Denies use of thiazide diuretics. Vital signs are stable. General: The patient appeared well nourished and normally developed. HEENT: Head exam is unremarkable. Neck is without jugular venous distension. LUNGS: Lungs are clear to auscultation and percussion. Breath sounds decreased. HEART: Rate and Rhythm are regular. ABDOMEN: Soft, nontender. EXTREMITITES: No clubbing, cyanosis, or edema. Past Medical History Past Medical History: COPD, GERD/Reflux, GI Bleed, Hyperlipidemia, Hypertension, Liver Disease, Pneumonia, Prostate Disorder Additional Past Medical History / Comment(s): ETOH ABUSE RECURRENT PANCREATITIS, ALCOHOLIC HEPATITIS, NEUROPATHY BILATERAL FEET SINCE BACK SURGERY, hx of CHRONIC URINARY RETENTION DUE TO BACK PROBLEMS-SELF CATHS, CHRONIC L HYDROURETERONEPHROSIS D/T REFLUX, CHRONIC LOW BACK PAIN, HAS MORPHINE PAIN PUMP, decreased etoh use History of Any Multi-Drug Resistant Organisms: None Reported Past Surgical History: Back Surgery, Cholecystectomy, Orthopedic Surgery Additional Past Surgical History / Comment(s): EGDS, colonoscopy, bronchoscopy, BACK surgeries with TITANIUM PLATES MILTON and CAGES, KIDNEY STONES removed per pt, SPINAL CORD STIMULATOR PLACED AND REMOVED ANCHORS REMAIN, ISMAEL KNEE ARTHROSCOPIES, PINKY FINGER RT HAND REATTATCHED. Past Anesthesia/Blood Transfusion Reactions: No Reported Reaction Past Psychological History: Anxiety, Depression Smoking Status: Current every day smoker Past Alcohol Use History: Occasional Past Drug Use History: None Reported - Past Family History Father Family Medical History: Diabetes Mellitus Additional Family Medical History / Comment(s): Mother Family Medical History: Dementia, Hyperlipidemia, Hypertension Additional Family Medical History / Comment(s): Mother is living. Medications and Allergies Home Medications Medication Instructions Recorded Confirmed Type Magnesium Oxide [Mag-Ox] 200 mg PO DAILY 09/18/17 03/19/20 History Cyclobenzaprine HCl 10 mg PO BID 11/25/19 03/19/20 History Folic Acid 1 mg PO DAILY 11/25/19 03/19/20 History Gabapentin [Neurontin] 400 mg PO TID 11/25/19 03/19/20 History HYDROcodone/APAP 5-325MG [[place] 1 tab PO DAILY 11/25/19 03/19/20 History 5-325] Lipase/Protease/Amylase [[place] Dr 2 tab PO TID 11/25/19 03/19/20 History 24,000 Units Capsule] Losartan [Cozaar] 50 mg PO DAILY 11/25/19 03/19/20 History Meloxicam 15 mg PO DAILY 11/25/19 03/19/20 History Metoprolol Tartrate [Lopressor] 25 mg PO BID 11/25/19 03/19/20 History Morphine Pain Pump 1 dose SQ DIRECTED 11/25/19 03/19/20 History Omeprazole [PriLOSEC] 40 mg PO DAILY 11/25/19 03/19/20 History Furosemide [Lasix] 20 mg PO DAILY 03/19/20 03/19/20 History Allergies Allergy/AdvReac Type Severity Reaction Status Date / Time No Known Allergies Allergy Verified 03/19/20 09:16 Physical Exam Vitals: Vital Signs Temp Pulse Resp BP Pulse Ox 03/22/20 08:39 98.3 F 89 14 162/86 98 03/22/20 03:26 98.2 F 81 18 166/91 98 03/21/20 20:17 99.3 F 75 16 153/90 100 03/21/20 15:00 98.3 F 92 16 147/108 98 03/21/20 14:47 16 Intake and Output 03/21/20 03/22/20 03/22/20 22:59 06:59 14:59 Intake Total 300 300 100 Output Total 650 Balance 300 -350 100 Intake: Oral 300 300 Other 100 Output: Urine 650 Other: Voiding Method Toilet Toilet Self-Catheterization Self-Catheterization Self-Catheterization Results - Lab Results Most recent lab results Calcium 7.7 mg/dL (8.4-10.2) L 03/22/20 07:41 03/22/20 07:41 03/22/20 07:41 Assessment and Plan Plan: Assessment: 1. Hyponatremia, appears euvolemic. 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 Sodium level 131 on admission and is 126 today. Urine sodium 164 and urine osmolality 494. The urine was collected after he received normal saline. 2. Benign hypertension. 3. History of urinary retention. Urology following. Patient performs self catheterizations at home but was doing him less frequently then instructed. 4. Left renal atrophy With mild fullness of the left renal collecting system. Left-sided urothelial thickening as well as bladder wall thickening noted. 5. Nausea and vomiting. Possibly gastroenteritis. Seems to have improved. Plan: Remains off IV fluids. Check TSH and uric acid level. Hold off on diuretics. 1200 mL fluid restriction. Encourage oral intake, particularly protein. Continue with self catheterizations to avoid urinary retention. Add amlodipine 5 mg once daily. Repeat electrolytes in the morning. COVID-19 results pending. Thank you for the consultation. I will continue to follow the patient is due during his hospital stay.
[2020-03-22] MEDS: amLODIPine 5 MG TAB PO SCH ×2 (13:53→20:46)
[2020-03-22 14:32] LABS: % Iron Saturation 20.42 (15.00-50.00); Iron 49 ug/dL (65-175); Total Iron Binding Capacity 240 ug/dL (228-460)
[2020-03-22 14:42] LABS: Ferritin 104.1 ng/mL (22.0-322.0)
[2020-03-22 15:04] LABS: Folate, Serum 13.7 ng/mL
[2020-03-22] MEDS: HYDROmorphone 1 MG/ML 1 ML SYRINGE IVP PRN (20:46)
--- NOTE | 2020-03-22 23:50 | P.PN ---
Subjective Progress Note Date: 03/22/20 Principal diagnosis: Gastroenteritis Mr. Pro is a 49-year-old male with a past medical history of COPD, GERD, hypertension, hyperlipidemia, alcoholic hepatitis, bilateral lower extremity neuropathy, chronic low back problems on morphine pump, chronic urinary retenti on with self-catheterization coming in with a chief complaint of nausea vomiting and diarrhea. At the time of admission patient was found to have a temperature and also tachycardic with elevated lactic acid. He also had urine analysis that was showing budding yeast with large leukocyte esterase. Patient has history of self-catheterization due to neurogenic bladder. He is currently being treated with ceftriaxone. On 03/20/2020-patient is comfortably lying in bed appears to be no acute distre ss. Patient states his nausea and vomiting has improved. He does not have diarrhea. Patient denies having any hematuria or dysuria. He denies having any fevers chills or rigors. No cough or difficulty in breathing. He still complains of loss of appetite. He denies having any chest pain or palpitations. On reviewing the vitals patient has a temperature of 97.9, heart rate of 81, respiratory rate of 18, saturating at 100% on room air. Repeat lactic acid level is 1.7. Patient's urine culture is positive for Jolie species, not albicans or glabrata. On 03/21/2020 - patient is comfortably sitting up in the drinking his juice. Patient states that his appetite improved. Denies having any nausea or vomiting. He does not have any diarrhea. As per the nursing staff report, patient had 800 MLS urine after catheterization. Patient denies having any fevers chills or rigors. No cough or difficulty in breathing. No chest pain or palpitations. No dysuria or hematuria. On reviewing the vitals Temperature of 98.3, heart rate of 92, respiratory 16, blood pressure 147 x 108, saturating at 98% on room air. On reviewing his labs white count of 5.6, hemoglobin 10.8, sodium of 129, potassium 3.5, chloride 104, BUN 7, creatinine 0.69. On 2019 -patient is sitting up and eating his lunch this afternoon. Patient denies having any nausea vomiting or diarrhea. He is able to tolerate diet without nausea. He denies having any chest pain or palpitations. No cough or difficulty in breathing. Patient has been afebrile for the past 24 hours, heart rate in 70s to 80s, blood pressure 136/78, saturating at 93 9% on room air. On reviewing the patient's labs his sodium has decreased to 126. On reviewing his microbiology sputum showing Pseudomonas aeruginosa. Active Medications Amlodipine Besylate (Amlodipine 5 Mg Tab) 5 mg PO DAILY [facility] Last Admin: 03/22/20 20:46 Dose: 5 mg Documented by: Lipase/Protease/Amylase (Lipase 5,000/Protease 17,000/Amylase 24,000) 9 each PO TID-W/MEALS [facility] Last Admin: 03/22/20 16:58 Dose: 9 each Documented by: Cyclobenzaprine HCl (Cyclobenzaprine 10 Mg Tab) 10 mg PO BID [facility] Last Admin: 03/22/20 20:46 Dose: 10 mg Documented by: Diphenhydramine HCl (Diphenhydramine 50 Mg/Ml 1 Ml Vial) 25 mg IVP Q6HR PRN PRN Reason: Allergy Symptoms Last Admin: 03/19/20 19:39 Dose: 25 mg Documented by: Folic Acid (Folic Acid 1 Mg Tab) 1 mg PO DAILY [facility] Last Admin: 03/22/20 08:46 Dose: 1 mg Documented by: Gabapentin (Gabapentin 400 Mg Cap) 400 mg PO TID [facility] Last Admin: 03/22/20 20:46 Dose: 400 mg Documented by: Guaifenesin (Guaifenesin 600 Mg Tablet.Er) 600 mg PO Q12HR PRN PRN Reason: Cough Last Admin: 03/19/20 23:19 Dose: 600 mg Documented by: Hydromorphone HCl (Hydromorphone 1 Mg/Ml 1 Ml Syringe) 1 mg IVP Q4HR PRN PRN Reason: Pain Last Admin: 03/22/20 20:46 Dose: 1 mg Documented by: Losartan Potassium (Losartan 50 Mg Tab) 50 mg PO DAILY [facility] Last Admin: 03/22/20 08:45 Dose: 50 mg Documented by: Magnesium Oxide (Magnesium Oxide 400 Mg Tab) 400 mg PO DAILY [facility] Last Admin: 03/22/20 08:46 Dose: 400 mg Documented by: Metoprolol Tartrate (Metoprolol Tartrate 25 Mg Tab) 25 mg PO BID [facility] Last Admin: 03/22/20 20:46 Dose: 25 mg Documented by: Morphine Sulfate (Morphine Sulfate 4 Mg/Ml Syringe) 4 mg IVP Q4HR PRN PRN Reason: Pain Last Admin: 03/22/20 13:57 Dose: 4 mg Documented by: Nicotine (Nicotine 21mg/24hr Patch) 1 patch TRANSDERM DAILY [facility] Last Admin: 03/22/20 08:46 Dose: 1 patch Documented by: Ondansetron HCl (Ondansetron 4 Mg/2 Ml Vial) 4 mg IVP Q6HR PRN PRN Reason: Nausea And Vomiting Last Admin: 03/21/20 17:17 Dose: 4 mg Documented by: Pantoprazole Sodium (Pantoprazole 40 Mg Tablet) 40 mg PO AC-BRKFST [facility] Last Admin: 03/22/20 00:16 Dose: 40 mg Documented by: Objective - Vital Signs Vital signs: Vital Signs Temp 98.3 F 03/22/20 08:39 Pulse 89 03/22/20 08:39 Resp 14 03/22/20 08:39 BP 162/86 03/22/20 08:39 Pulse Ox 98 03/22/20 08:39 Intake & Output 03/21/20 03/22/20 03/22/20 18:59 06:59 18:59 Intake Total 600 Output Total 900 650 Balance -900 -50 Intake: Oral 600 Output: Urine 900 650 Other: Voiding Method Toilet Toilet Self-Catheterization Self-Catheterization Self-Catheterization - Exam PHYSICAL EXAM GENERAL: The patient is alert and oriented x3, not in any acute distress. Well developed, well nourished. HEENT: Pupils are round and equally reacting to light. EOMI. No scleral icterus. No conjunctival pallor. Normocephalic, atraumatic. No pharyngeal erythema. No thyromegaly. CARDIOVASCULAR: S1 and S2 present. No murmurs, rubs, or gallops. PULMONARY: Chest is clear to auscultation, no wheezing or crackles. -ABDOMEN: Soft, nondistended, normoactive bowel sounds. No palpable organomegaly. Non-tender, he has morphine pump in the left lower quadrant MUSCULOSKELETAL: No joint swelling or deformity. EXTREMITIES: No cyanosis, clubbing, or pedal edema. NEUROLOGICAL: Gross neurological examination did not reveal any focal deficits. - Labs CBC & Chem 7: 03/22/20 07:41 03/22/20 07:41 Labs: Abnormal Lab Results - Last 24 Hours (Table) 03/21/20 03/22/20 03/22/20 Range/Units 07:55 07:41 07:41 RBC 2.96 L (4.30-5.90) m/uL Hgb 10.0 L (13.0-17.5) gm/dL Hct 30.6 L (39.0-53.0) % MCV 103.3 H (80.0-100.0) fL RDW 16.1 H (11.5-15.5) % Plt Count 119 L (150-450) k/uL Lymphocytes # 0.6 L (1.0-4.8) k/uL Sodium 126 L (137-145) mmol/L BUN 7 L (9-20) mg/dL Glucose 122 H (74-99) mg/dL Osmolality 274 L (280-301) mosm/kg Calcium 7.7 L (8.4-10.2) mg/dL Microbiology - Last 24 Hours (Table) 03/20/20 03:03 Gram Stain - Final Sputum Sputum Culture - Final Pseudomonas aeruginosa Assessment and Plan Assessment: Assessment: Acute gastroenteritis - possible viral in etiology Dehydration with elevated lactic acid Hyponatremia Chronic left hydronephrosis Hypertension Hyperlipidemia Gastroesophageal reflux disease History of alcoholic hepatitis History of GI bleed Chronic back problem on morphine pump Chronic urinary retention with self-catheterization Nicotine dependence Lower extremity neuropathy line benign prostatic hypertrophy Anxiety, depression, not active issue, patient denies suicidal ideation Moderate protein calorie malnutrition Plan: Patient's urine culture came back positive for Jolie species not albicans or glabrata. It is possibly colonization as the patient has history of self-catheterization. Discontinued ceftriaxone. Patient's lactic acidosis improved after IV fluids. COVID 19 still -pending . Continue with the current medication regimen. Patient sodium dropped to 126 this morning, will consult nephrology. Will discontinue patient's Lasix. Patient sputum positive for Pseudomonas, but clinically patient does not have any symptoms suggestive of pneumonia, no need for antibiotics for now. Further recommendations depending upon the progress of the patient.
[2020-03-23] MEDS: HYDROmorphone 1 MG/ML 1 ML SYRINGE IVP PRN ×3 (01:33→11:48)
[2020-03-23] MEDS: guaiFENesin 600 MG TABLET.ER PO PRN (01:40)
[2020-03-23 08:49] LABS: African American GFR (CKD) >90 (>60 ml/min/1.73 sqM); Anion Gap 2 mmol/L; Blood Urea Nitrogen 7 mg/dL (9-20); Calcium 7.9 mg/dL (8.4-10.2); Carbon Dioxide 25 mmol/L (22-30); Chloride 102 mmol/L (98-107); Glucose 120 mg/dL (74-99); Magnesium 1.5 mg/dL (1.6-2.3); Non-African American GFR(CKD) >90 (>60 ml/min/1.73 sqM); Potassium 4.3 mmol/L (3.5-5.1); Sodium 129 mmol/L (137-145); Uric Acid 2.8 mg/dL (3.5-8.5)
[2020-03-23 09:02] VITALS: RESP 14
[2020-03-23] MEDS: METOPROLOL TARTRATE 25 MG TAB PO SCH (09:20)
[2020-03-23] MEDS: GABAPENTIN 400 MG CAP PO SCH ×2 (09:20→17:40)
[2020-03-23] MEDS: CYCLOBENZAPRINE 10 MG TAB PO SCH (09:20)
[2020-03-23] MEDS: PANTOPRAZOLE 40 MG TABLET PO SCH (09:20)
[2020-03-23] MEDS: MAGNESIUM OXIDE 400 MG TAB PO SCH (09:20)
[2020-03-23] MEDS: LOSARTAN 50 MG TAB PO SCH (09:20)
[2020-03-23] MEDS: NICOTINE 21MG/24HR PATCH TRANSDERM SCH (09:20)
[2020-03-23] MEDS: FOLIC ACID 1 MG TAB PO SCH (09:21)
[2020-03-23] MEDS: LIPASE 5,000/PROTEASE 17,000/AMYLASE 24,000 PO SCH ×3 (09:21→17:41)
[2020-03-23] MEDS: amLODIPine 5 MG TAB PO SCH (11:10)
[2020-03-23] MEDS: MAGNESIUM SULFATE-D5W PMX 1 GM in DEXTROSE/WATER 1 100ML.BAG IVPB SCH ×2 (11:48→13:02)
--- NOTE | 2020-03-23 11:59 | P.PN ---
Subjective Patient is seen in follow-up for hyponatremia. Sodium level better. He is maintained on fluid restriction. Oral intake is good. No vomiting or diarrhea. Blood pressure well controlled. Vital signs are stable. General: The patient appeared well nourished and normally developed. HEENT: Head exam is unremarkable. Neck is without jugular venous distension. LUNGS: Lungs are clear to auscultation and percussion. Breath sounds decreased. HEART: Rate and Rhythm are regular. ABDOMEN: Soft, nontender. EXTREMITITES: No clubbing, cyanosis, or edema. Objective - Vital Signs Vital signs: Vital Signs Temp 98.6 F 03/23/20 08:50 Pulse 88 03/23/20 08:50 Resp 14 03/23/20 08:50 BP 128/78 03/23/20 08:50 Pulse Ox 100 03/23/20 08:50 Intake & Output 03/22/20 03/23/20 03/23/20 18:59 06:59 18:59 Intake Total 100 350 100 Balance 100 350 100 Intake: Oral 350 Other 100 100 Other: Voiding Method Self-Catheterization Self-Catheterization Self-Catheterization # Voids 1 1 - Labs CBC & Chem 7: 03/22/20 07:41 03/23/20 07:47 Labs: Abnormal Lab Results - Last 24 Hours (Table) 03/22/20 03/23/20 Range/Units 07:41 07:47 Sodium 129 L (137-145) mmol/L BUN 7 L (9-20) mg/dL Glucose 120 H (74-99) mg/dL Uric Acid 2.8 L (3.5-8.5) mg/dL Calcium 7.9 L (8.4-10.2) mg/dL Magnesium 1.5 L (1.6-2.3) mg/dL Iron 49 L (65-175) ug/dL Microbiology - Last 24 Hours (Table) 03/20/20 03:03 Gram Stain - Final Sputum Sputum Culture - Final Pseudomonas aeruginosa Assessment and Plan Plan: Assessment: 1. Hyponatremia, appears euvolemic. 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 Sodium level 129. Urine sodium 164 and urine osmolality 494. The urine was collected after he received normal saline. TSH normal. 2. Benign hypertension. Controlled. 3. History of urinary retention. Urology following. Patient performs self catheterizations at home but was doing him less frequently then instructed. 4. Left renal atrophy With mild fullness of the left renal collecting system. Left-sided urothelial thickening as well as bladder wall thickening noted. 5. Nausea and vomiting. Possibly gastroenteritis. Seems to have improved. 6. Hypomagnesemia from poor intake. Plan: Hold off on diuretics. 1200 mL fluid restriction. Encourage oral intake, particularly protein. Continue with self catheterizations to avoid urinary retention. Repeat electrolytes in the morning. Replace magnesium. 2 g IV today. COVID-19 results pending.
--- NOTE | 2020-03-23 13:31 | XR ---
EXAMINATION TYPE: XR chest 2V DATE OF EXAM: 03/23/2020 COMPARISON: Prior chest x-ray 03/20/2020 HISTORY: Cough, abnormal chest x-ray TECHNIQUE: Frontal and lateral views of the chest are obtained. FINDINGS: Lung volumes are lower. Interstitium is mildly increased, patchy bilateral density is note d. No evident pneumothorax or pleural effusion. Dressing cord stimulator persists. Cardiac mediastina l silhouette, pulmonary vascularity and graham not significantly changed. Surgical clips in the right u pper quadrant. IMPRESSION: Lower lung volumes, there may be some interstitial edema, correlate for possible pneumon ia. Follow-up recommended.
[2020-03-23 14:53] VITALS: BP 128/75; PULSE 78; TEMP 98.9
--- NOTE | 2020-03-23 23:56 | P.DS ---
Providers Date of admission: 03/22/20 08:46 Attending physician: Socorro Barragan Consults: 03/19/20 07:45 Consult Physician Urgent Consulting Provider: Kuldip Belcher Consult Reason/Comments: uti and recent h/o hydronephrosis Do you want consulting provider notified?: Yes 03/22/20 12:24 Consult Physician Routine Consulting Provider: Moody Leigh Consult Reason/Comments: hyponatremia Do you want consulting provider notified?: Yes Primary care physician: [facility] Hospital Course: Diagnoses: Acute gastroenteritis - possible viral in etiology , improved on discharge Dehydration with elevated lactic acid. Improved and came back to normal Hyponatremia , secondary to SIADH, evaluated by manager product management, improved sodium and cleared for discharge with outpatient follow-up. Thought to be due to urinary retention and increased UB thickness Chronic left hydronephrosis, evaluated by urologist Urinary bladder wall thickening, need cystoscopy as an outpatient, appointments made for the patient with Dr. Hung on 04/12 Jolie in the urine-Colonization Self-catheterization for chronic urinary retention' Nonadherence to therapy Hypertension Hyperlipidemia Gastroesophageal reflux disease History of alcoholic hepatitis History of GI bleed Chronic back problem on morphine pump Chronic urinary retention with self-catheterization Nicotine dependence Lower extremity neuropathy line benign prostatic hypertrophy Anxiety, depression, not active issue, patient denies suicidal ideation Moderate protein calorie malnutrition Hospital course: This is a pleasant 49 years old male with past medical history of moderate left hydronephrosis per ultrasound from 02/13/20. Other chronic medical problems including COPD, GERD, GI bleed, hypertension, hyperlipidemia, alcoholic hepatitis, bilateral lower extremity neuropathy, chronic back problems on morphine pump, and chronic urinary retention with self-catheterization chronic left hydronephrosis, also a cigarette smoker, he is a patient of Dr. stroud Patient presents because of nausea, vomiting and diarrhea. Patient was treated symptomatically and with IV fluid and his symptoms improved significantly, his nausea vomiting and diarrhea are stopped, no acute abdominal pain, and patient was able to tolerate his diet prior to discharge, he ate 75-100% of his meals. CT of the abdomen and pelvis showing urinary bladder wall thickening and fatty liver. Patient has been evaluated by urologist who recommended outpatient follow-up for cystoscopy, patient agrees with the appointments made for him with Dr. Hung on 04/12 and states he will follow-up, risks including but not limited to cancer are explained to the patient and he verbalized understanding and acceptance Patient hospital course was complicated by hyponatremia his sodium went down to 126, manager product management evaluated the patient and he stopped his Lasix and put him on fluid restriction, next day his sodium improved to 129, patient remains asymptomatic, patient was cleared for discharge by neurologist as per staff and bedside nurse Andi Patient hyponatremia is Thought to be due to urinary retention and increased UB thickness by nephrology team after discontinuation of Lasix, repeat chest x-ray shows some pulmonary congestion however patient is asymptomatic and he is saturating high 90s percent on room air, no dyspnea or tachypnea and no respiratory symptoms, I discussed the case with Dr. stroud to repeat chest x-ray as an outpatient On the day of discharge patient to return to baseline with no chest pain or dyspnea, no new abdominal pain or nausea vomiting or change in urine or bowel habits. No fever Patient was cleared for discharge by all consultants including manager product management, and urologist Problems and management plan were discussed with the patient and he verbalized understanding and acceptance Patient was found stable and can be discharged home however he needs follow-up as an outpatient. Patient was instructed to follow up with PCP within one week and patient agrees with the appointments made for him with Dr. stroud on 03/31 and states he will follow-up, also I called Dr. stroud on and discussed the case with her with a recommendation for repeat chest x-ray and sodium level and she currently took note of these . Also patient was instructed to follow up with manager product management Dr. Leigh and 5-7 days and he agrees to call and make appointment Gen: patient is a AAOx3, no distress CVS: S1-S2, RRR, no murmur Lungs: B/L CTA, no wheezing Abdomen: soft, no distention, no tenderness, positive bowel sounds Extremity: no leg edema or induration Time spent more than 35 minutes Patient Condition at Discharge: Fair Plan - Discharge Summary Discharge Rx Participant: No New Discharge Prescriptions: Continue Magnesium Oxide [Mag-Ox] 200 mg PO DAILY Metoprolol Tartrate [Lopressor] 25 mg PO BID HYDROcodone/APAP 5-325MG [[place] 5-325] 1 tab PO DAILY Losartan [Cozaar] 50 mg PO DAILY Cyclobenzaprine HCl 10 mg PO BID Folic Acid 1 mg PO DAILY Lipase/Protease/Amylase [[place] 24,000 Units Capsule] 2 tab PO TID Gabapentin [Neurontin] 400 mg PO TID Omeprazole [PriLOSEC] 40 mg PO DAILY Morphine Pain Pump 1 dose SQ DIRECTED Discontinued Meloxicam 15 mg PO DAILY Furosemide [Lasix] 20 mg PO DAILY Discharge Medication List Magnesium Oxide [Mag-Ox] 200 mg PO DAILY 09/18/17 [History] Cyclobenzaprine HCl 10 mg PO BID 11/25/19 [History] Folic Acid 1 mg PO DAILY 11/25/19 [History] Gabapentin [Neurontin] 400 mg PO TID 11/25/19 [History] HYDROcodone/APAP 5-325MG [[place] 5-325] 1 tab PO DAILY 11/25/19 [History] Lipase/Protease/Amylase [[place] 24,000 Units Capsule] 2 tab PO TID 11/25/19 [History] Losartan [Cozaar] 50 mg PO DAILY 11/25/19 [History] Metoprolol Tartrate [Lopressor] 25 mg PO BID 11/25/19 [History] Morphine Pain Pump 1 dose SQ DIRECTED 11/25/19 [History] Omeprazole [PriLOSEC] 40 mg PO DAILY 11/25/19 [History] Follow up Appointment(s)/Referral(s): Sivakumar Velazquez MD [STAFF PHYSICIAN] - 04/12/20 11:20 am Kerri Quinones MD [Primary Care Provider] - 03/31/20 3:15 pm (check you sodium level with your doctor ) Moody Leigh DO [STAFF PHYSICIAN] - 1 Week (patient to call and schedule appointment check you sodium level with your doctor ) Patient Instructions/Handouts: How to Stop Smoking (DC), Pancreatitis (DC), Cystoscopy (DC) Activity/Diet/Wound Care/Special Instructions: Scheduled follow-up appointment with Dr. Velazquez in 3 weeks to schedule office cystoscopy ([phone]) April 12, 2020 activity as tolerated regular diet as tolerated fluid restriction 1200ML/DAY. Continue with self catheterizations to avoid urinary retention. Discharge Disposition: HOME SELF-CARE
== END 2020-03-23 21:04 | disposition home or self-care (01) | DRG 644 ==
LOC: EC 03:17 → 1SOBS 06:05 → OBSVTOIN 03-22 08:46
PROVIDERS: ADMIT Hospitalist; ATTEND Hospitalist
DX: E22.2 Syndrome of inappropriate secretion of antidiuretic hormone (principal); K86.0 Alcohol-induced chronic pancreatitis; N13.30 Unspecified hydronephrosis; E44.0 Moderate protein-calorie malnutrition; N31.2 Flaccid neuropathic bladder, not elsewhere classified; K76.0 Fatty (change of) liver, not elsewhere classified; Z20.828 Contact with and (suspected) exposure to other viral communicable diseases; A08.4 Viral intestinal infection, unspecified; E78.5 Hyperlipidemia, unspecified; E83.42 Hypomagnesemia; E86.0 Dehydration; F17.210 Nicotine dependence, cigarettes, uncomplicated; F32.9 Major depressive disorder, single episode, unspecified; F41.9 Anxiety disorder, unspecified; G62.9 Polyneuropathy, unspecified; I10 Essential (primary) hypertension; J44.9 Chronic obstructive pulmonary disease, unspecified; K21.9 Gastro-esophageal reflux disease without esophagitis; N40.0 Benign prostatic hyperplasia without lower urinary tract symptoms; F10.10 Alcohol abuse, uncomplicated; G89.29 Other chronic pain; M54.5 Low back pain; R33.8 Other retention of urine; R33.9 Retention of urine, unspecified; N32.89 Other specified disorders of bladder; Z68.25 Body mass index [BMI] 25.0-25.9, adult; Z79.1 Long term (current) use of non-steroidal anti-inflammatories (NSAID); Z79.51 Long term (current) use of inhaled steroids; Z79.899 Other long term (current) drug therapy; Z79.891 Long term (current) use of opiate analgesic; Z87.442 Personal history of urinary calculi; Z90.49 Acquired absence of other specified parts of digestive tract; Z87.19 Personal history of other diseases of the digestive system; Z98.890 Other specified postprocedural states; Z87.39 Personal history of other diseases of the musculoskeletal system and connective tissue; Z87.01 Personal history of pneumonia (recurrent); Z82.49 Family history of ischemic heart disease and other diseases of the circulatory system; Z83.3 Family history of diabetes mellitus; Z82.0 Family history of epilepsy and other diseases of the nervous system; Z84.89 Family history of other specified conditions
CPT/HCPCS: 36415; 71045; 71046; 74176; 80048; 80053; 80320; 81001; 82150; 82728; 82746; 83540; 83550; 83605; 83690; 83735; 83930; 83935; 84133; 84300; 84443; 84484; 84550; 85025; 87070; 87077; 87086; 87186; 87205; 96361; 96374; 96375; 96376; 99285

== ENCOUNTER 2020-03-31 16:54 | Inpatient (IN) | payer MEDICARE, OTHER ==
[2020-03-31] MEDS ORDERED: MORPHINE SULFATE 4 MG/ML SYRINGE IV STA (18:51)
[2020-03-31] MEDS ORDERED: VANCOMYCIN IV PER PHARMACY 1 EACH MISC MISCELLANE PRN (18:54)
--- NOTE | 2020-03-31 18:54 | ED ---
Extremity Problem HPI - General Chief complaint: Extremity Problem,Nontraumatic Stated complaint: bilat leg swelling/redness Time Seen by Provider: 03/31/20 18:27 Source: patient, family, RN notes reviewed, old records reviewed Mode of arrival: wheelchair Limitations: no limitations - History of Present Illness Initial comments: This is a 49-year-old male DF presents today for evaluation of bilateral looks repainted swelling redness severe over the next over the last few days. Patient denies fever at home no prior history of similar issue or complaint. No travel history no significant history of blood clots. MD Complaint: extremity pain, extremity swelling -: days(s) Location: bilateral lower extremity -: Yes myalgia Radiation: proximal Severity scale (1-10): 7 Quality: aching Consistency: constant Improves with: nothing Worsens with: nothing Associated Symptoms: denies other symptoms - Related Data Home Medications Medication Instructions Recorded Confirmed Magnesium Oxide [Mag-Ox] 400 mg PO DAILY 09/18/17 03/31/20 Cyclobenzaprine HCl 10 mg PO BID 11/25/19 03/31/20 Folic Acid 1 mg PO DAILY 11/25/19 03/31/20 Gabapentin [Neurontin] 400 mg PO TID 11/25/19 03/31/20 HYDROcodone/APAP 5-325MG [[place] 1 tab PO DAILY 11/25/19 03/31/20 5-325] Lipase/Protease/Amylase [Rebel Dr 48,000 units PO AC-TID 11/25/19 03/31/20 24,000 Units Capsule] Losartan [Cozaar] 50 mg PO DAILY 11/25/19 03/31/20 Metoprolol Tartrate [Lopressor] 25 mg PO BID 11/25/19 03/31/20 Morphine Pain Pump 1 dose INTRATHECA CONTINUOUS 11/25/19 03/31/20 Omeprazole [PriLOSEC] 40 mg PO DAILY 11/25/19 03/31/20 Allergies Allergy/AdvReac Type Severity Reaction Status Date / Time No Known Allergies Allergy Verified 03/31/20 20:19 Review of Systems ROS Statement: Those systems with pertinent positive or pertinent negative responses have been documented in the HPI. ROS Other: All systems not noted in ROS Statement are negative. Past Medical History Past Medical History: COPD, GERD/Reflux, GI Bleed, Hyperlipidemia, Hypertension, Liver Disease, Pneumonia, Prostate Disorder Additional Past Medical History / Comment(s): ETOH ABUSE RECURRENT PANCREATITIS, ALCOHOLIC HEPATITIS, NEUROPATHY BILATERAL FEET SINCE BACK SURGERY, hx of CHRONIC URINARY RETENTION DUE TO BACK PROBLEMS-SELF CATHS, CHRONIC L HYDROURETERONEPHROSIS D/T REFLUX, CHRONIC LOW BACK PAIN, HAS MORPHINE PAIN PUMP, History of Any Multi-Drug Resistant Organisms: None Reported Past Surgical History: Back Surgery, Cholecystectomy, Orthopedic Surgery Additional Past Surgical History / Comment(s): EGDS, colonoscopy, bronchoscopy, BACK surgeries with TITANIUM PLATES MILTON and CAGES, KIDNEY STONES removed per pt, SPINAL CORD STIMULATOR PLACED AND REMOVED ANCHORS REMAIN, ISMAEL KNEE ARTHROSCOPIES, PINKY FINGER RT HAND REATTATCHED. Past Anesthesia/Blood Transfusion Reactions: No Reported Reaction Past Psychological History: Anxiety, Depression Smoking Status: Current every day smoker Past Alcohol Use History: Occasional Past Drug Use History: None Reported - Past Family History Father Family Medical History: Diabetes Mellitus Additional Family Medical History / Comment(s): Mother Family Medical History: Dementia, Hyperlipidemia, Hypertension Additional Family Medical History / Comment(s): Mother is living. General Exam - General Exam Comments Initial Comments: Skin bilateral lower extremity edema, swelling and redness Limitations: no limitations General appearance: alert, in no apparent distress Head exam: Present: atraumatic, normocephalic, normal inspection Eye exam: Present: normal appearance, PERRL, EOMI. Absent: scleral icterus, conjunctival injection, periorbital swelling ENT exam: Present: normal exam, mucous membranes moist Neck exam: Present: normal inspection. Absent: tenderness, meningismus, lymphadenopathy Respiratory exam: Present: normal lung sounds bilaterally. Absent: respiratory distress, wheezes, rales, rhonchi, stridor Cardiovascular Exam: Present: regular rate, normal rhythm, normal heart sounds. Absent: systolic murmur, diastolic murmur, rubs, gallop, clicks GI/Abdominal exam: Present: soft, normal bowel sounds. Absent: distended, tenderness, guarding, rebound, rigid Extremities exam: Present: normal inspection, full ROM, normal capillary refill. Absent: tenderness, pedal edema, joint swelling, calf tenderness Back exam: Present: normal inspection Neurological exam: Present: alert, oriented X3, CN II-XII intact Psychiatric exam: Present: normal affect, normal mood Skin exam: Present: warm, dry, intact, normal color. Absent: rash Course Vital Signs 03/31/20 17:32 Temperature 98.3 F Pulse Rate 83 Respiratory 18 Rate Blood Pressure 153/81 O2 Sat by Pulse 99 Oximetry - Reevaluation(s) Reevaluation #1: 03/31/20 20:54 Medical records reviewed Reevaluation #2: 03/31/20 20:54 Patient has a chief pain control Reevaluation #3: 03/31/20 20:54 Spoke with patient regarding findings, questions answered Medical Decision Making - Medical Decision Making 49 male to the ER for evaluation patient presents today for evaluation of bilateral lower Shorty pain and. Patient will be admitted for lower extremity cellulitis and IV antibiotics - Lab Data Result diagrams: 03/31/20 18:54 03/31/20 18:54 Lab Results 03/31/20 03/31/20 03/31/20 Range/Units 18:54 18:54 18:54 WBC 7.8 (3.8-10.6) k/uL RBC 3.41 L (4.30-5.90) m/uL Hgb 11.0 L (13.0-17.5) gm/dL Hct 33.8 L (39.0-53.0) % MCV 99.1 (80.0-100.0) fL MCH 32.1 (25.0-35.0) pg MCHC 32.4 (31.0-37.0) g/dL RDW 15.7 H (11.5-15.5) % Plt Count 371 D (150-450) k/uL MPV 7.2 Neutrophils % 82 % Lymphocytes % 11 % Monocytes % 4 % Eosinophils % 1 % Basophils % 0 % Neutrophils # 6.4 (1.3-7.7) k/uL Lymphocytes # 0.9 L (1.0-4.8) k/uL Monocytes # 0.3 (0-1.0) k/uL Eosinophils # 0.1 (0-0.7) k/uL Basophils # 0.0 (0-0.2) k/uL Macrocytosis Slight D-Dimer 1.83 H (<0.60) mg/L FEU Sodium 133 L (137-145) mmol/L Potassium 5.3 H (3.5-5.1) mmol/L Chloride 106 (98-107) mmol/L Carbon Dioxide 21 L (22-30) mmol/L Anion Gap 6 mmol/L BUN 7 L (9-20) mg/dL Creatinine 0.75 (0.66-1.25) mg/dL Est GFR (CKD-EPI)AfAm >90 (>60 ml/min/1.73 sqM) Est GFR (CKD-EPI)NonAf >90 (>60 ml/min/1.73 sqM) Glucose 140 H (74-99) mg/dL Calcium 8.8 (8.4-10.2) mg/dL Phosphorus 4.4 (2.5-4.5) mg/dL Magnesium 1.8 (1.6-2.3) mg/dL Total Bilirubin 0.7 (0.2-1.3) mg/dL AST 25 (17-59) U/L ALT 15 (4-49) U/L Alkaline Phosphatase 154 H (38-126) U/L Troponin I (0.000-0.034) ng/mL Total Protein 6.3 (6.3-8.2) g/dL Albumin 3.0 L (3.5-5.0) g/dL 03/31/20 Range/Units 18:54 WBC (3.8-10.6) k/uL RBC (4.30-5.90) m/uL Hgb (13.0-17.5) gm/dL Hct (39.0-53.0) % MCV (80.0-100.0) fL MCH (25.0-35.0) pg MCHC (31.0-37.0) g/dL RDW (11.5-15.5) % Plt Count (150-450) k/uL MPV Neutrophils % % Lymphocytes % % Monocytes % % Eosinophils % % Basophils % % Neutrophils # (1.3-7.7) k/uL Lymphocytes # (1.0-4.8) k/uL Monocytes # (0-1.0) k/uL Eosinophils # (0-0.7) k/uL Basophils # (0-0.2) k/uL Macrocytosis D-Dimer (<0.60) mg/L FEU Sodium (137-145) mmol/L Potassium (3.5-5.1) mmol/L Chloride (98-107) mmol/L Carbon Dioxide (22-30) mmol/L Anion Gap mmol/L BUN (9-20) mg/dL Creatinine (0.66-1.25) mg/dL Est GFR (CKD-EPI)AfAm (>60 ml/min/1.73 sqM) Est GFR (CKD-EPI)NonAf (>60 ml/min/1.73 sqM) Glucose (74-99) mg/dL Calcium (8.4-10.2) mg/dL Phosphorus (2.5-4.5) mg/dL Magnesium (1.6-2.3) mg/dL Total Bilirubin (0.2-1.3) mg/dL AST (17-59) U/L ALT (4-49) U/L Alkaline Phosphatase (38-126) U/L Troponin I <0.012 (0.000-0.034) ng/mL Total Protein (6.3-8.2) g/dL Albumin (3.5-5.0) g/dL - Radiology Data Radiology results: report reviewed (Ultrasound bilateral lower extremity negative for DVT), image reviewed Disposition Clinical Impression: Bilateral lower leg cellulitis Disposition: ADMITTED IP TO THIS [facility] Condition: Fair Is patient prescribed a controlled substance at d/c from ED?: No Referrals: Kerri Quinones MD [Primary Care Provider] - 1-2 days
[2020-03-31 19:09] LABS: Basophils % (A) 0 %; Eosinophils # (A) 0.1 k/uL (0-0.7); Eosinophils % (A) 1 %; HCT 33.8 % (39.0-53.0); Lymphocytes # (A) 0.9 k/uL (1.0-4.8); Lymphocytes % (A) 11 %; MCH 32.1 pg (25.0-35.0); MCHC 32.4 g/dL (31.0-37.0); MCV 99.1 fL (80.0-100.0); Macrocytosis Slight; Mean Platelet Volume 7.2; Monocytes # (A) 0.3 k/uL (0-1.0); Monocytes % (A) 4 %; Neutrophils # (A) 6.4 k/uL (1.3-7.7); Neutrophils % (A) 82 %; RBC 3.41 m/uL (4.30-5.90); RDW 15.7 % (11.5-15.5); WBC 7.8 k/uL (3.8-10.6)
[2020-03-31] MEDS ORDERED: VANCOMYCIN 1,500 MG in SODIUM CHLORIDE 0.9% 250 ML IVPB ONE (19:15)
[2020-03-31 19:16] LABS: ALT 15 U/L (4-49); AST 25 U/L (17-59); African American GFR (CKD) >90 (>60 ml/min/1.73 sqM); Alkaline Phosphatase 154 U/L (38-126); Anion Gap 6 mmol/L; Blood Urea Nitrogen 7 mg/dL (9-20); Calcium 8.8 mg/dL (8.4-10.2); Carbon Dioxide 21 mmol/L (22-30); Chloride 106 mmol/L (98-107); Glucose 140 mg/dL (74-99); Magnesium 1.8 mg/dL (1.6-2.3); Non-African American GFR(CKD) >90 (>60 ml/min/1.73 sqM); Phosphorus 4.4 mg/dL (2.5-4.5); Potassium 5.3 mmol/L (3.5-5.1); Sodium 133 mmol/L (137-145); Total Bilirubin 0.7 mg/dL (0.2-1.3); Total Protein 6.3 g/dL (6.3-8.2)
[2020-03-31 19:32] LABS: Platelet Count 371 k/uL (150-450)
--- NOTE | 2020-03-31 20:14 | US ---
EXAMINATION TYPE: US venous doppler duplex LE DATE OF EXAM: 03/31/2020 7:55 PM COMPARISON: US CLINICAL HISTORY: pain. Pain x 1 day. No hx of DVT. Patient is unsure if he takes a blood thinner. SIDE PERFORMED: Bilateral TECHNIQUE: The lower extremity deep venous system is examined utilizing real time linear array sonog sheeba with graded compression, doppler sonography and color-flow sonography. VESSELS IMAGED: Common Femoral Vein Deep Femoral Vein Greater Saphenous Vein * Femoral Vein Popliteal Vein Small Saphenous Vein * Proximal Calf Veins (* superficial vessels) Right Leg: Limited due to edema. No evidence of DVT in veins imaged at this time from prox calf vei ns to CFV. Left Leg: Limited due to edema. No evidence of DVT in veins imaged at this time from prox calf vein s to CFV. IMPRESSION: No sign of deep vein thrombosis in both legs.
[2020-03-31] MEDS ORDERED: SODIUM CHLORIDE 0.9% 1,000 ML IV ONE (20:52)
[2020-03-31] MEDS ORDERED: MORPHINE SULFATE 4 MG/ML SYRINGE IVP STA (21:13)
[2020-03-31] MEDS ORDERED: MORPHINE SULFATE 4 MG/ML SYRINGE IVP PRN (21:13)
[2020-04-01] MEDS ORDERED: NON FORMULARY DRUG (Morphine Pain Pump 1 DOSE) INTRATHECA SCH (08:15)
[2020-04-01] MEDS: VANCOMYCIN 1,500 MG in SODIUM CHLORIDE 0.9% 250 ML IVPB SCH ×2 (08:52→20:46)
[2020-04-01] MEDS: HYDROcodone/APAP 5-325MG 1 EACH TAB PO PRN (08:55)
[2020-04-01] MEDS: METOPROLOL TARTRATE 25 MG TAB PO SCH ×2 (08:55→19:09)
[2020-04-01] MEDS: LOSARTAN 50 MG TAB PO SCH (08:56)
[2020-04-01] MEDS: CYCLOBENZAPRINE 10 MG TAB PO SCH ×2 (08:56→19:09)
[2020-04-01] MEDS: MAGNESIUM OXIDE 400 MG TAB PO SCH (08:56)
[2020-04-01] MEDS: FOLIC ACID 1 MG TAB PO SCH (08:56)
[2020-04-01] MEDS: ENOXAPARIN 40 MG/0.4 ML SYRINGE SQ SCH (09:07)
[2020-04-01] MEDS: GABAPENTIN 400 MG CAP PO SCH ×3 (09:07→19:09)
--- NOTE | 2020-04-01 09:16 | P.HPIM ---
History of Present Illness This is a pleasant 49 years old male with past medical history of moderate left hydronephrosis per ultrasound from 02/13/20. Other chronic medical problems including COPD, GERD, GI bleed, hypertension, hyperlipidemia, alcoholic hepa titis, bilateral lower extremity neuropathy, chronic back problems on morphine pump, and chronic urinary retention with self-catheterization chronic left hydronephrosis, also a cigarette smoker, he is a patient of Dr. stroud Patient presents because of nausea, vomiting and diarrhea. Days duration, rosa bolaños is vomiting about 3 times per day, he had 1 runny bowel movement yesterday, he complains from periumbilical abdominal pain redness on both sides, reactive to walk 10/10 in severity that lack sharp. patient self catheterizes himself about twice daily with the help of his , his been doing this for years, he is not sure why he has doing self- catheterization but states is due to stent placed for him in his left ureter secondary to irregular stone, currently patient states he has no stents. He is to follow up with urologist in [place], [place] however he is retired now and he does not follow up with urologist He presents because of bilateral lower extremity redness, warmth and tenderness of 2 days' duration, he went to see his PCP Dr. stroud who referred him to the hospital. He also complaining of from some often. He smokes about 2 packs per day, he denies alcohol or illicit drugs His vitals looks stable, showing unremarkable CBC with normal WBC at 7.8K, hemoglobin 11.0. D-dimer is elevated at 1.8. Sodium 133, potassium was slightly high at 5.3, creatinine is normal at 0.7. Magnesium 1.8, liver enzymes not elevated. Troponin is negative less than 0.012. Ultrasound of the lower extremity: Limited due to edema, no DVT In the emergency room was started on vancomycin and Rocephin. MAPS is checked and he was prescribed Amonate 5/325 on 02/1510 doses , Gabapentin 400 mg 90 pills over 30 days Review of Systems CONSTITUTIONAL: No fever, no malaise, no fatigue. HEENT: No recent visual problems or hearing problems. Denied any sore throat. CARDIOVASCULAR: No orthopnea, PND, no palpitations, no syncope. PULMONARY: No shortness of breath, no cough, no hemoptysis. GASTROINTESTINAL: No diarrhea, no nausea, no vomiting, no abdominal pain. Normoactive bowel sounds. NEUROLOGICAL: No headaches, no weakness, no numbness. HEMATOLOGICAL: Denies any bleeding or petechiae. GENITOURINARY: Denies any burning micturition, frequency, or urgency. MUSCULOSKELETAL/RHEUMATOLOGICAL: Denies any joint pain, swelling, or any muscle pain. ENDOCRINE: Denies any polyuria or polydipsia. Past Medical History Past Medical History: COPD, GERD/Reflux, GI Bleed, Hyperlipidemia, Hypertension, Liver Disease, Pneumonia, Prostate Disorder Additional Past Medical History / Comment(s): ETOH ABUSE RECURRENT PANCREATITIS, ALCOHOLIC HEPATITIS, NEUROPATHY BILATERAL FEET SINCE BACK SURGERY, hx of CHRONIC URINARY RETENTION DUE TO BACK PROBLEMS-SELF CATHS, CHRONIC L HYDROURETERONEPHROSIS D/T REFLUX, CHRONIC LOW BACK PAIN, HAS MORPHINE PAIN PUMP, History of Any Multi-Drug Resistant Organisms: None Reported Past Surgical History: Back Surgery, Cholecystectomy, Orthopedic Surgery Additional Past Surgical History / Comment(s): EGDS, colonoscopy, bronchoscopy, BACK surgeries with TITANIUM PLATES MILTON and CAGES, KIDNEY STONES removed per pt, SPINAL CORD STIMULATOR PLACED AND REMOVED ANCHORS REMAIN, ISMAEL KNEE AR THROSCOPIES, PINKY FINGER RT HAND REATTATCHED. Past Anesthesia/Blood Transfusion Reactions: No Reported Reaction Past Psychological History: Anxiety, Depression Smoking Status: Current every day smoker Past Alcohol Use History: Occasional Past Drug Use History: None Reported - Past Family History Father Family Medical History: Diabetes Mellitus Additional Family Medical History / Comment(s): Mother Family Medical History: Dementia, Hyperlipidemia, Hypertension Additional Family Medical History / Comment(s): Mother is living. Medications and Allergies Home Medications Medication Instructions Recorded Confirmed Type Magnesium Oxide [Mag-Ox] 400 mg PO DAILY 09/18/17 03/31/20 History Cyclobenzaprine HCl 10 mg PO BID 11/25/19 03/31/20 History Folic Acid 1 mg PO DAILY 11/25/19 03/31/20 History Gabapentin [Neurontin] 400 mg PO TID 11/25/19 03/31/20 History HYDROcodone/APAP 5-325MG [[place]ate 1 tab PO DAILY 11/25/19 03/31/20 History 5-325] Lipase/Protease/Amylase [Rebel [place] 48,000 units PO AC-TID 11/25/19 03/31/20 History 24,000 Units Capsule] Losartan [Cozaar] 50 mg PO DAILY 11/25/19 03/31/20 History Metoprolol Tartrate [Lopressor] 25 mg PO BID 11/25/19 03/31/20 History Morphine Pain Pump 1 dose INTRATHECA CONTINUOUS 11/25/19 03/31/20 History Omeprazole [PriLOSEC] 40 mg PO DAILY 11/25/19 03/31/20 History Allergies Allergy/AdvReac Type Severity Reaction Status Date / Time No Known Allergies Allergy Verified 03/31/20 20:19 Physical Exam Vitals: Vital Signs Temp Pulse Resp BP Pulse Ox 04/01/20 05:20 98.8 F 90 17 135/76 97 03/31/20 21:58 97.9 F 86 16 129/80 99 03/31/20 17:32 98.3 F 83 18 153/81 99 Intake and Output 03/31/20 04/01/20 04/01/20 22:59 06:59 14:59 Output Total 0 Balance 0 Output: Urine 0 Other: Weight 80.739 kg GENERAL: The patient is alert and oriented x3, not in any acute distress. Well developed, well nourished. HEENT: Pupils are round and equally reacting to light. EOMI. No scleral icterus. No conjunctival pallor. Normocephalic, atraumatic. No pharyngeal erythema. No thyromegaly. CARDIOVASCULAR: S1 and S2 present. No murmurs, rubs, or gallops. -PULMONARY: Chest is clear to auscultation, no wheezing or crackles. Mild crepitation ABDOMEN: Soft, nontender, nondistended, normoactive bowel sounds. No palpable organomegaly. MUSCULOSKELETAL: No joint swelling or deformity. -EXTREMITIES: No cyanosis, clubbing, or pedal edema. Both legs are red, warm and tender, there is multiple minimal and superficial vertical ulcers on both legs anteriorly. NEUROLOGICAL: Gross neurological examination did not reveal any focal deficits. SKIN: No rashes. No petechiae Results CBC & Chem 7: 03/31/20 18:54 03/31/20 18:54 Labs: Abnormal Lab Results - Last 24 Hours (Table) 03/31/20 03/31/20 03/31/20 Range/Units 18:54 18:54 18:54 RBC 3.41 L (4.30-5.90) m/uL Hgb 11.0 L (13.0-17.5) gm/dL Hct 33.8 L (39.0-53.0) % RDW 15.7 H (11.5-15.5) % Lymphocytes # 0.9 L (1.0-4.8) k/uL D-Dimer 1.83 H (<0.60) mg/L FEU Sodium 133 L (137-145) mmol/L Potassium 5.3 H (3.5-5.1) mmol/L Carbon Dioxide 21 L (22-30) mmol/L BUN 7 L (9-20) mg/dL Glucose 140 H (74-99) mg/dL Alkaline Phosphatase 154 H (38-126) U/L Albumin 3.0 L (3.5-5.0) g/dL Assessment and Plan Assessment: Bilateral lower extremity cellulitis Elevated d-dimer, no DVT in the lower extremities. Need to rule out pulmonary embolism Chronic left hydronephrosis Hypertension Hyperlipidemia Gastroesophageal reflux disease History of alcoholic hepatitis History of GI bleed Chronic back problem on morphine pump Chronic urinary retention with self-catheterization Nicotine dependence Lower extremity neuropathy line benign prostatic hypertrophy Anxiety, depression, not active issue, patient denies suicidal ideation Plan: This is a pleasant 49 years old male who presents with bilateral lower extremity cellulitis. Continue with antibiotics, with IV vancomycin and cefazolin.Continue with pain management. Continue with gentle hydration. Because of elevated d-dimer, I recommend we rule PULMONARY embolism, I explained to the patient the risks and benefits and alternatives, for his PE and further tests with CT angios with contrast, risk of ALLERGIC reaction and/or nephrotoxicity which can cause permanent damage and explained to the patient, also alternative V/Q scan however patient's wants to do the CT angiography of the chest. Labs and medication were reviewed.. Continue same treatment. Continue with symptomatic treatment. Resume home medication. Monitor lytes and vitals. DVT and GI prophylaxis. Further recommendations depends on the clinical course of the patient DVT prophylaxis: Subcutaneous Lovenox GI Prophylaxis: Pepcid Prognosis is guarded
--- NOTE | 2020-04-01 10:27 | CT ---
EXAMINATION TYPE: CT angio chest DATE OF EXAM: 04/01/2020 10:04 AM COMPARISON: CTA chest August 24, 2017 HISTORY: Shortness of breath. CT DLP: 336.3 mGycm Automated exposure control for dose reduction was used. CONTRAST: CTA scan of the thorax is performed with IV Contrast, patient injected with 100 mL of Isovue 370, pul monary embolism protocol. MIP images are created and reviewed. FINDINGS: LUNGS: New areas of groundglass opacity and reticular interstitial prominence. New small bilateral pl eural effusions with associated compressive atelectasis. No pneumothorax seen bilaterally. Mild to mo derate central peribronchial wall thickening bilaterally. No suspicious focal masses. Slight respirat ory motion artifact degradation. MEDIASTINUM: There is suboptimal bolus with near equal contrast the right and left heart systems but no CT evidence for acute pulmonary embolism. Prominent but subcentimeter bilateral hilar lymph nodes. No cardiomegaly or pericardial effusion is seen. No thoracic aortic aneurysm or dissection. Benitez ry artery calcification is present which is noted marked underlying coronary artery disease. New flui d filled dilated distal esophagus versus moderate size hiatal hernia. OTHER: Redemonstration of spinal stimulator device in the lower thoracic spinal canal. Cholecystecto my clips noted. Liver is low dense relative to spleen suggesting diffuse fatty infiltration. A 2.2 cm hypodense area anteriorly favors focal fatty infiltration on image 114 given location near interloba r fissure. Lesions stable from recent abdominal CT. IMPRESSION: 1. No CT evidence for acute pulmonary embolism. 2. Mild alveolar and interstitial edema along with small to tiny bilateral pleural effusions. Correla te for fluid overload state. Underlying infiltrates not entirely excluded though favor edema. 3. Suspect acute bronchitis with new moderate central peribronchial wall thickening bilaterally. Delmer elate clinically. 4. Dilated distal fluid filled esophagus versus new moderate size hiatal hernia. Latter is favored. T his was present on March 19, [address] and unchanged in appearance.
[2020-04-01] MEDS: LIPASE 5,000/PROTEASE 17,000/AMYLASE 24,000 PO SCH ×2 (12:08→17:06)
[2020-04-02] MEDS: HYDROcodone/APAP 5-325MG 1 EACH TAB PO PRN (05:35)
[2020-04-02] MEDS: VANCOMYCIN 1,500 MG in SODIUM CHLORIDE 0.9% 250 ML IVPB SCH (09:06)
[2020-04-02] MEDS: ENOXAPARIN 40 MG/0.4 ML SYRINGE SQ SCH (09:07)
[2020-04-02] MEDS: FOLIC ACID 1 MG TAB PO SCH (09:07)
[2020-04-02] MEDS: METOPROLOL TARTRATE 25 MG TAB PO SCH ×2 (09:07→21:15)
[2020-04-02] MEDS: LIPASE 5,000/PROTEASE 17,000/AMYLASE 24,000 PO SCH ×3 (09:07→17:29)
[2020-04-02] MEDS: MAGNESIUM OXIDE 400 MG TAB PO SCH (09:07)
[2020-04-02] MEDS: LOSARTAN 50 MG TAB PO SCH (09:07)
[2020-04-02] MEDS: CYCLOBENZAPRINE 10 MG TAB PO SCH ×2 (09:08→21:15)
[2020-04-02] MEDS: GABAPENTIN 400 MG CAP PO SCH ×3 (09:08→21:15)
[2020-04-02 11:03] LABS: African American GFR (CKD) 119.9 (60.0-200.0); Non-African American GFR(CKD) 103.4 (60.0-200.0)
[2020-04-02] MEDS ORDERED: VANCOMYCIN TROUGH DUE 1 EACH MISC MISCELLANE ONE (19:00)
[2020-04-02] MEDS: VANCOMYCIN 1,250 MG in SODIUM CHLORIDE 0.9% 250 ML IVPB SCH (21:16)
[2020-04-02] MEDS: NICOTINE 21MG/24HR PATCH TRANSDERM SCH (22:36)
[2020-04-03] MEDS: HYDROcodone/APAP 5-325MG 1 EACH TAB PO PRN ×3 (02:14→17:46)
[2020-04-03] MEDS: ENOXAPARIN 40 MG/0.4 ML SYRINGE SQ SCH (07:44)
[2020-04-03] MEDS: NICOTINE 21MG/24HR PATCH TRANSDERM SCH (07:44)
[2020-04-03] MEDS: MAGNESIUM OXIDE 400 MG TAB PO SCH (07:45)
[2020-04-03] MEDS: METOPROLOL TARTRATE 25 MG TAB PO SCH ×2 (07:45→21:24)
[2020-04-03] MEDS: LIPASE 5,000/PROTEASE 17,000/AMYLASE 24,000 PO SCH ×3 (07:45→17:47)
[2020-04-03] MEDS: GABAPENTIN 400 MG CAP PO SCH ×3 (07:45→21:24)
[2020-04-03] MEDS: CYCLOBENZAPRINE 10 MG TAB PO SCH ×2 (07:45→21:24)
[2020-04-03] MEDS: FOLIC ACID 1 MG TAB PO SCH (07:45)
[2020-04-03] MEDS: LOSARTAN 50 MG TAB PO SCH (07:45)
[2020-04-03] MEDS: VANCOMYCIN 1,250 MG in SODIUM CHLORIDE 0.9% 250 ML IVPB SCH ×2 (08:55→21:23)
[2020-04-03 11:49] LABS: African American GFR (CKD) 126.6 (60.0-200.0); Non-African American GFR(CKD) 109.3 (60.0-200.0)
[2020-04-03] MEDS ORDERED: FUROSEMIDE 10 MG/ML 4 ML VIAL IV STA (20:30)
[2020-04-03] MEDS ORDERED: IPRATROPIUM-ALBUTEROL 3 ML NEB INHALATION PRN (20:31)
[2020-04-04] MEDS: HYDROcodone/APAP 5-325MG 1 EACH TAB PO PRN ×3 (06:07→20:57)
[2020-04-04] MEDS: NICOTINE 21MG/24HR PATCH TRANSDERM SCH (08:22)
[2020-04-04] MEDS: ENOXAPARIN 40 MG/0.4 ML SYRINGE SQ SCH (08:22)
[2020-04-04] MEDS: LOSARTAN 50 MG TAB PO SCH (08:22)
[2020-04-04] MEDS: LIPASE 5,000/PROTEASE 17,000/AMYLASE 24,000 PO SCH ×3 (08:23→17:20)
[2020-04-04] MEDS: CYCLOBENZAPRINE 10 MG TAB PO SCH ×2 (08:23→20:57)
[2020-04-04] MEDS: FOLIC ACID 1 MG TAB PO SCH (08:23)
[2020-04-04] MEDS: GABAPENTIN 400 MG CAP PO SCH ×3 (08:23→20:57)
[2020-04-04] MEDS: METOPROLOL TARTRATE 25 MG TAB PO SCH ×2 (08:23→20:57)
[2020-04-04] MEDS: MAGNESIUM OXIDE 400 MG TAB PO SCH (08:23)
[2020-04-04] MEDS: VANCOMYCIN 1,250 MG in SODIUM CHLORIDE 0.9% 250 ML IVPB SCH ×2 (09:23→20:58)
[2020-04-04 09:56] LABS: African American GFR (CKD) 134.9 (60.0-200.0); Non-African American GFR(CKD) 116.4 (60.0-200.0)
--- NOTE | 2020-04-04 19:35 | P.PN ---
Subjective Progress Note Date: 04/02/20 Principal diagnosis: Bilateral lower extremity cellulitis 49 years old male with past medical history of moderate left hydronephrosis per ultrasound from 02/13/20. Other chronic medical problems including COPD, GERD, GI bleed, hypertension, hyperlipidemia, alcoholic hepatitis, bilateral lower extremity neuropathy, chronic back problems on morphine pump, and chronic urinary retention with self-catheterization chronic left hydronephrosis, also a cigarette smoker, he is a patient of Dr. stroud Patient presents because of nausea, vomiting and diarrhea. Days duration, patient is vomiting about 3 times per day, he had 1 runny bowel movement yesterday, he complains from periumbilical abdominal pain redness on both sides, reactive to walk 10/10 in severity that lack sharp. Objective - Vital Signs Vital signs: Vital Signs Temp 98.1 F 04/02/20 05:14 Pulse 102 H 04/02/20 05:14 Resp 16 04/02/20 05:14 BP 163/99 04/02/20 05:14 Pulse Ox 98 04/02/20 05:14 Intake & Output 04/01/20 04/02/20 04/02/20 18:59 06:59 18:59 Intake Total 600 2640 Balance 600 2640 Weight 80.739 kg Intake: Intake, IV Titration 2100 Amount Sodium Chloride 0.9% 1, 1800 000 ml @ 100 mls/hr IV . Q10H [facility] Rx#:[id number] Vancomycin 1,500 mg In 250 Sodium Chloride 0.9% 250 ml @ 125 mls/hr IVPB Q12H [facility] Rx#:[id number] ceFAZolin 1,000 mg In 50 Sodium Chloride 0.9% 50 ml @ 100 mls/hr IVPB Q8HR [facility] Rx#:[id number] Oral 600 540 Other: Voiding Method Toilet Toilet # Voids 1 - Exam GENERAL: The patient is alert and oriented x3, not in any acute distress. Well developed, well nourished. HEENT: Pupils are round and equally reacting to light. EOMI. No scleral icterus. No conjunctival pallor. Normocephalic, atraumatic. No pharyngeal erythema. No t hyromegaly. CARDIOVASCULAR: S1 and S2 present. No murmurs, rubs, or gallops. -PULMONARY: Chest is clear to auscultation, no wheezing or crackles. Mild crepitation ABDOMEN: Soft, nontender, nondistended, normoactive bowel sounds. No palpable organomegaly. MUSCULOSKELETAL: No joint swelling or deformity. -EXTREMITIES: No cyanosis, clubbing, or pedal edema. Both legs are red, warm and tender, there is multiple minimal and superficial vertical ulcers on both legs anteriorly. NEUROLOGICAL: Gross neurological examination did not reveal any focal deficits. SKIN: No rashes. No petechiae - Labs CBC & Chem 7: 03/31/20 18:54 04/04/20 05:03 Labs: Microbiology - Last 24 Hours (Table) 03/31/20 18:54 Blood Culture - Preliminary Blood No Growth after 24 hours Assessment and Plan Assessment: Bilateral lower extremity cellulitis Elevated d-dimer, no DVT in the lower extremities. Need to rule out pulmonary embolism Chronic left hydronephrosis Hypertension Hyperlipidemia Gastroesophageal reflux disease History of alcoholic hepatitis History of GI bleed Chronic back problem on morphine pump Chronic urinary retention with self-catheterization Nicotine dependence Lower extremity neuropathy line benign prostatic hypertrophy Anxiety, depression, not active issue, patient denies suicidal ideation Plan: This is a pleasant 49 years old male who presents with bilateral lower extremity cellulitis. Continue with antibiotics, with IV vancomycin and cefazolin.Continue with pain management. Continue with gentle hydration. Because of elevated d-dimer, I recommend we rule PULMONARY embolism, I explained to the patient the risks and benefits and alternatives, for his PE and further tests with CT angios with contrast, risk of ALLERGIC reaction and/or nephrotoxicity which can cause permanent damage and explained to the patient, also alternative V/Q scan however patient's wants to do the CT angiography of the chest. Labs and medication were reviewed.. Continue same treatment. Continue with symptomatic treatment. Resume home medication. Monitor lytes and vitals. DVT and GI prophylaxis. Further recommendations depends on the clinical course of the patient DVT prophylaxis: Subcutaneous Lovenox
--- NOTE | 2020-04-04 19:40 | P.PN ---
Subjective Progress Note Date: 04/03/20 Principal diagnosis: Bilateral lower extremity cellulitis 49 years old male with past medical history of moderate left hydronephrosis per ultrasound from 02/13/20. Other chronic medical problems including COPD, GERD, GI bleed, hypertension, hyperlipidemia, alcoholic hepatitis, bilateral lower extremity neuropathy, chronic back problems on morphine pump, and chronic urinary retention with self-catheterization chronic left hydronephrosis, also a cigarette smoker, he is a patient of Dr. stroud Patient presents because of nausea, vomiting and diarrhea. Days duration, patient is vomiting about 3 times per day, he had 1 runny bowel movement yesterday, he complains from periumbilical abdominal pain redness on both sides, reactive to walk 10/10 in severity that lack sharp. 04/03/2020 Patient is seen and evaluated in room at bedside; continues to complain of uncontrolled pain; vital signs are reviewed and stable Patient remains on IV cefazolin and vancomycin; we will increase twice a day dosing Objective - Vital Signs Vital signs: Vital Signs Temp 98.3 F 04/03/20 12:09 Pulse 78 04/03/20 12:09 Resp 16 04/03/20 12:09 BP 181/98 04/03/20 12:10 Pulse Ox 98 04/03/20 12:09 Intake & Output 04/02/20 04/03/20 04/03/20 18:59 06:59 18:59 Intake Total 1530 Balance 1530 Intake: Intake, IV Titration 350 Amount Vancomycin 1,250 mg In 250 Sodium Chloride 0.9% 250 ml @ 125 mls/hr IVPB Q12H JANE Rx#:[id number] ceFAZolin 1,000 mg In 100 Sodium Chloride 0.9% 50 ml @ 100 mls/hr IVPB Q8HR JANE Rx#:[id number] Oral 1180 Other: Voiding Method Toilet Toilet Toilet # Voids 2 2 - Exam GENERAL: The patient is alert and oriented x3, not in any acute distress. Well developed, well nourished. HEENT: Pupils are round and equally reacting to light. EOMI. No scleral icterus. No conjunctival pallor. Normocephalic, atraumatic. No pharyngeal erythema. No thyromegaly. CARDIOVASCULAR: S1 and S2 present. No murmurs, rubs, or gallops. -PULMONARY: Chest is clear to auscultation, no wheezing or crackles. Mild crepitation ABDOMEN: Soft, nontender, nondistended, normoactive bowel sounds. No palpable organomegaly. MUSCULOSKELETAL: No joint swelling or deformity. -EXTREMITIES: No cyanosis, clubbing, or pedal edema. Both legs are red, warm and tender, there is multiple minimal and superficial vertical ulcers on both legs anteriorly. NEUROLOGICAL: Gross neurological examination did not reveal any focal deficits. SKIN: No rashes. No petechiae - Labs CBC & Chem 7: 03/31/20 18:54 04/04/20 05:03 Labs: Microbiology - Last 24 Hours (Table) 03/31/20 18:54 Blood Culture - Preliminary Blood No Growth after 48 hours Assessment and Plan Assessment: Bilateral lower extremity cellulitis Elevated d-dimer, no DVT in the lower extremities. Need to rule out pulmonary embolism Chronic left hydronephrosis Hypertension Hyperlipidemia Gastroesophageal reflux disease History of alcoholic hepatitis History of GI bleed Chronic back problem on morphine pump Chronic urinary retention with self-catheterization Nicotine dependence Lower extremity neuropathy line benign prostatic hypertrophy Anxiety, depression, not active issue, patient denies suicidal ideation Plan: This is a pleasant 49 years old male who presents with bilateral lower extremity cellulitis. Continue with antibiotics, with IV vancomycin and cefazolin.Continue with pain management. Continue with gentle hydration. Because of elevated d-dimer, I recommend we rule PULMONARY embolism, I explained to the patient the risks and benefits and alternatives, for his PE and further tests with CT angios with contrast, risk of ALLERGIC reaction and/or nephrotoxicity which can cause permanent damage and explained to the patient, also alternative V/Q scan however patient's wants to do the CT angiography of the chest. Labs and medication were reviewed.. Continue same treatment. Continue with symptomatic treatment. Resume home medication. Monitor lytes and vitals. DVT and GI prophylaxis. Further recommendations depends on the clinical course of the patient DVT prophylaxis: Subcutaneous Lovenox
--- NOTE | 2020-04-04 19:42 | P.PN ---
Subjective Progress Note Date: 04/04/20 Principal diagnosis: Bilateral lower extremity cellulitis 49 years old male with past medical history of moderate left hydronephrosis per ultrasound from 02/13/20. Other chronic medical problems including COPD, GERD, GI bleed, hypertension, hyperlipidemia, alcoholic hepatitis, bilateral lower extremity neuropathy, chronic back problems on morphine pump, and chronic urinary retention with self-catheterization chronic left hydronephrosis, also a cigarette smoker, he is a patient of Dr. stroud Patient presents because of nausea, vomiting and diarrhea. Days duration, patient is vomiting about 3 times per day, he had 1 runny bowel movement yesterday, he complains from periumbilical abdominal pain redness on both sides, reactive to walk 10/10 in severity that lack sharp. 04/03/2020 Patient is seen and evaluated in room at bedside; continues to complain of uncontrolled pain; vital signs are reviewed and stable Patient remains on IV cefazolin and vancomycin; we will increase twice a day dosing 04/04/2020 Patient continues to complain of severe pain in both lower extremities; remains afebrile; patient remains on IV vancomycin and cefazolin for lower extremity cellulitis; we will monitor CBC, pro-calcitonin and CRP and tailor antibiotic therapy accordingly; recommend consult ID if cellulitis remains unchanged in nex t 24 hours Objective - Vital Signs Vital signs: Vital Signs Temp 98.1 F 04/04/20 12:58 Pulse 85 04/04/20 12:58 Resp 18 04/04/20 12:58 BP 163/93 04/04/20 12:58 Pulse Ox 97 04/04/20 12:58 Intake & Output 04/03/20 04/04/20 04/04/20 18:59 06:59 18:59 Intake Total 300 1730 Balance 300 1730 Intake: Intake, IV Titration 300 550 Amount Vancomycin 1,250 mg In 250 500 Sodium Chloride 0.9% 250 ml @ 125 mls/hr IVPB Q12H JANE Rx#:[id number] ceFAZolin 1,000 mg In 50 50 Sodium Chloride 0.9% 50 ml @ 100 mls/hr IVPB Q8HR JANE Rx#:[id number] Oral 1180 Other: Voiding Method Toilet Toilet # Voids 2 2 - Exam GENERAL: The patient is alert and oriented x3, not in any acute distress. Well developed, well nourished. HEENT: Pupils are round and equally reacting to light. EOMI. No scleral icterus. No conjunctival pallor. Normocephalic, atraumatic. No pharyngeal erythema. No thyromegaly. CARDIOVASCULAR: S1 and S2 present. No murmurs, rubs, or gallops. -PULMONARY: Chest is clear to auscultation, no wheezing or crackles. Mild crepitation ABDOMEN: Soft, nontender, nondistended, normoactive bowel sounds. No palpable organomegaly. MUSCULOSKELETAL: No joint swelling or deformity. -EXTREMITIES: No cyanosis, clubbing, or pedal edema. Both legs are red, warm and tender, there is multiple minimal and superficial vertical ulcers on both legs anteriorly. NEUROLOGICAL: Gross neurological examination did not reveal any focal deficits. SKIN: No rashes. No petechiae - Labs CBC & Chem 7: 03/31/20 18:54 04/04/20 05:03 Labs: Microbiology - Last 24 Hours (Table) 03/31/20 18:54 Blood Culture - Preliminary Blood No Growth after 72 hours Assessment and Plan Assessment: Bilateral lower extremity cellulitis Elevated d-dimer, no DVT in the lower extremities. Need to rule out pulmonary embolism Chronic left hydronephrosis Hypertension Hyperlipidemia Gastroesophageal reflux disease History of alcoholic hepatitis History of GI bleed Chronic back problem on morphine pump Chronic urinary retention with self-catheterization Nicotine dependence Lower extremity neuropathy line benign prostatic hypertrophy Anxiety, depression, not active issue, patient denies suicidal ideation Plan: This is a pleasant 49 years old male who presents with bilateral lower extremity cellulitis. Continue with antibiotics, with IV vancomycin and ce fazolin.Continue with pain management. Continue with gentle hydration. Because of elevated d-dimer, I recommend we rule PULMONARY embolism, I explained to the patient the risks and benefits and alternatives, for his PE and further tests with CT angios with contrast, risk of ALLERGIC reaction and/or nephrotoxicity which can cause permanent damage and explained to the patient, also alternative V/Q scan however patient's wants to do the CT angiography of the chest. Labs and medication were reviewed.. Continue same treatment. Continue with symptomatic treatment. Resume home medication. Monitor lytes and vitals. DVT and GI prophylaxis. Further recommendations depends on the clinical course of the patient DVT prophylaxis: Subcutaneous Lovenox
[2020-04-04] MEDS: PANTOPRAZOLE 40 MG TABLET PO SCH (23:44)
[2020-04-04] MEDS: ONDANSETRON 4 MG/2 ML VIAL IVP PRN (23:44)
[2020-04-05] MEDS: ONDANSETRON 4 MG/2 ML VIAL IVP PRN ×2 (06:02→11:03)
[2020-04-05] MEDS ORDERED: VANCOMYCIN TROUGH DUE 1 EACH MISC MISCELLANE ONE (07:00)
[2020-04-05 07:30] LABS: Basophils % (A) 0 %; Eosinophils % (A) 0 %; HCT 34.3 % (39.0-53.0); Lymphocytes # (A) 0.5 k/uL (1.0-4.8); Lymphocytes % (A) 9 %; MCH 31.7 pg (25.0-35.0); MCHC 32.1 g/dL (31.0-37.0); MCV 98.7 fL (80.0-100.0); Macrocytosis Slight; Mean Platelet Volume 6.9; Monocytes # (A) 0.3 k/uL (0-1.0); Monocytes % (A) 4 %; Neutrophils % (A) 86 %; Platelet Count 312 k/uL (150-450); RBC 3.47 m/uL (4.30-5.90); RDW 15.7 % (11.5-15.5); WBC 5.8 k/uL (3.8-10.6)
[2020-04-05] MEDS: PANTOPRAZOLE 40 MG TABLET PO SCH (08:03)
[2020-04-05 11:39] LABS: African American GFR (CKD) 119.9 (60.0-200.0); Anion Gap 11.7 mmol/L (4.00-12.00); BUN/Creat Ratio 6.25 Ratio (12.00-20.00); C Reactive Protein 2.9 mg/dL (0.0-0.8); Calcium 8.8 mg/dL (8.7-10.3); Carbon Dioxide 30.3 mmol/L (21.6-31.8); Non-African American GFR(CKD) 103.4 (60.0-200.0); Potassium 3.7 mmol/L (3.5-5.5)
[2020-04-05] MEDS: PANTOPRAZOLE 40 MG/10 ML VIAL IVP SCH ×2 (12:01→20:46)
[2020-04-05] MEDS: NICOTINE 21MG/24HR PATCH TRANSDERM SCH (12:04)
[2020-04-05] MEDS: FOLIC ACID 1 MG TAB PO SCH (12:06)
[2020-04-05] MEDS: MAGNESIUM OXIDE 400 MG TAB PO SCH (12:06)
[2020-04-05] MEDS: GABAPENTIN 400 MG CAP PO SCH ×3 (12:06→20:47)
[2020-04-05] MEDS: CYCLOBENZAPRINE 10 MG TAB PO SCH ×2 (12:06→20:47)
[2020-04-05] MEDS: LIPASE 5,000/PROTEASE 17,000/AMYLASE 24,000 PO SCH ×3 (12:06→17:46)
[2020-04-05] MEDS: ENOXAPARIN 40 MG/0.4 ML SYRINGE SQ SCH (12:06)
[2020-04-05] MEDS: METOPROLOL TARTRATE 25 MG TAB PO SCH ×3 (12:06→20:47)
[2020-04-05] MEDS: LOSARTAN 50 MG TAB PO SCH ×2 (12:06→12:57)
[2020-04-05] MEDS ORDERED: METOCLOPRAMIDE 5 MG/ML 2 ML VIAL IVP PRN (12:08)
[2020-04-05] MEDS: HYDROcodone/APAP 5-325MG 1 EACH TAB PO PRN ×2 (12:50→17:50)
[2020-04-05] MEDS ORDERED: hydrALAZINE HCL 20 MG/ML 1 ML VIAL IVP STA (13:59)
--- NOTE | 2020-04-05 15:15 | P.PN ---
Subjective Progress Note Date: 04/05/20 Bilateral lower extremity cellulitis 49 years old male with past medical history of moderate left hydronephrosis per ultrasound from 02/13/20. Other chronic medical problems including COPD, GERD, GI bleed, hypertension, hyperlipidemia, alcoholic hepatitis, bilateral lower extremity neuropathy, chronic back problems on morphine pump, and chronic urinary retention with self-catheterization chronic left hydronephrosis, also a cigarette smoker, he is a patient of Dr. stroud Patient presents because of nausea, vomiting and diarrhea. Days duration, patient is vomiting about 3 times per day, he had 1 runny bowel movement yesterday, he complains from periumbilical abdominal pain redness on both sides, reactive to walk 10/10 in severity that lack sharp. 04/03/2020 Patient is seen and evaluated in room at bedside; continues to complain of uncontrolled pain; vital signs are reviewed and stable Patient remains on IV cefazolin and vancomycin; we will increase twice a day dosing 04/04/2020 Patient continues to complain of severe pain in both lower extremities; remains afebrile; patient remains on IV vancomycin and cefazolin for lower extremity cellulitis; we will monitor CBC, pro-calcitonin and CRP and tailor antibiotic therapy accordingly; recommend consult ID if cellulitis remains unchanged in next 24 hours 04/05/2020 Patient is seen and evaluated and follow-up this morning and is stating he is having some chest pain along with an increase in nausea vomiting and acid reflux noted. Per nursing staff patient has been vomiting and appears to be coffee- ground emesis in nature. Patient is currently maintained on IV antibiotics in the form of cefazolin for bilateral lower extremity cellulitis. GI has been consulted and patient is been made nothing by mouth as he continues to vomit. Current hemoglobin is stable at 11.0. Patient is maintained on oral Protonix which we'll transition to IV Protonix at this time. Patient does have Zofran ordered although states is not helping and Reglan was added. EKG was done showing sinus tachycardia. Review of systems: Constitutional: No reports of fatigue, fever, or chills Cardiovascular: Reports intermittent chest pain no reports of palpitations Respiratory: No reports of shortness of breath or cough GI: Reports nausea and vomiting of coffee-ground emesis with no reports of diarrhea : No reports of dysuria or retention Neurovascular: Reports weakness with no reports of numbness All medications have been reviewed Objective - Vital Signs Vital signs: Vital Signs Temp 98.7 F 04/05/20 12:46 Pulse 99 04/05/20 13:56 Resp 20 04/05/20 12:46 BP 176/100 04/05/20 13:56 Pulse Ox 93 L 04/05/20 12:46 Intake & Output 04/04/20 04/05/20 04/05/20 18:59 06:59 18:59 Intake Total 1310 Output Total 400 800 Balance 910 -800 Intake: Oral 1310 Output: Urine 400 Emesis 800 Other: Voiding Method Toilet Toilet # Voids 2 - Exam GENERAL: The patient is alert and oriented x3, not in any acute distress. Well developed, well nourished. HEENT: Pupils are round and equally reacting to light. EOMI. No scleral icterus. No conjunctival pallor. Normocephalic, atraumatic. No pharyngeal erythema. No thyromegaly. CARDIOVASCULAR: S1 and S2 present. No murmurs, rubs, or gallops. PULMONARY: Chest is clear to auscultation, no wheezing or crackles. Mild crepitation ABDOMEN: Soft, nontender, nondistended, normoactive bowel sounds. No palpable organomegaly. MUSCULOSKELETAL: No joint swelling or deformity. EXTREMITIES: No cyanosis, clubbing, or pedal edema. Both legs are red, warm and tender, there is multiple minimal and superficial vertical ulcers on both legs anteriorly. Slightly improved NEUROLOGICAL: Gross neurological examination did not reveal any focal deficits. SKIN: No rashes. No petechiae - Labs CBC & Chem 7: 04/05/20 06:55 04/05/20 06:55 Labs: Abnormal Lab Results - Last 24 Hours (Table) 04/05/20 04/05/20 04/05/20 Range/Units 06:55 06:55 06:55 RBC 3.47 L (4.30-5.90) m/uL Hgb 11.0 L (13.0-17.5) gm/dL Hct 34.3 L (39.0-53.0) % RDW 15.7 H (11.5-15.5) % Lymphocytes # 0.5 L (1.0-4.8) k/uL BUN 5.0 L (9.0-27.0) mg/dL BUN/Creatinine Ratio 6.25 L (12.00-20.00) Ratio Glucose 137 H (70-110) mg/dL C-Reactive Protein 2.9 H (0.0-0.8) mg/dL Procalcitonin 0.12 H (0.02-0.09) ng/mL Microbiology - Last 24 Hours (Table) 03/31/20 18:54 Blood Culture - Preliminary Blood No Growth after 96 hours Assessment and Plan Assessment: Bilateral lower extremity cellulitis Elevated d-dimer, no DVT in the lower extremities. Ruled out pulmonary embolism Chronic left hydronephrosis Hypertension Hyperlipidemia Gastroesophageal reflux disease History of alcoholic hepatitis History of GI bleed Chronic back problem on morphine pump Chronic urinary retention with self-catheterization Nicotine dependence Lower extremity neuropathy benign prostatic hypertrophy Anxiety, depression, not active issue, patient denies suicidal ideation GI prophylaxis: Protonix DVT prophylaxis: Subcutaneous heparin Plan: Continue current medications, management, and symptomatic treatment. Patient is maintained on IV antibiotics and will continue at this time for bilateral lower extremity cellulitis. Patient experiencing some nausea and vomiting with possible coffee-ground emesis noted and GI was consulted and currently pending at this time. He does have a history of a dilated distal fluid filled esophagus with a moderate sized hiatal hernia. Patient will be made nothing by mouth until GI evaluation. Patient maintained on Zofran along with Reglan as needed. CT of the chest yesterday showed no acute evidence for pulmonary embolism.
--- NOTE | 2020-04-05 17:19 | CONS ---
CONSULTATION DATE OF DICTATION: 04/05/2020. REASON FOR CONSULTATION: Acute upper GI bleed. HISTORY OF PRESENT ILLNESS: The patient is a 49-year-old white male admitted to the hospital with acute bilateral lower extremity cellulitis. Since yesterday, he has been complaining of severe epigastric pain associated with nausea, vomiting, and he threw up at least 20 times and apparently had bright red emesis on 2 different occasions. Hence, we are consulted for further evaluation. The patient complains of severe sore throat, severe heartburn, epigastric pain, nausea, vomiting. His hemoglobin was 11.3 g/dL. PAST MEDICAL HISTORY: Significant for GERD, high COPD, hypertension, hyperlipidemia, chronic recurring pancreatitis, secondary to alcohol abuse in the past. PAST SURGICAL HISTORY: Back surgery, cholecystectomy, multiple EGDs, colonoscopies in the past, bronchoscopy, bilateral knee arthroscopies. MEDICATIONS: At home include magnesium oxide, cyclobenzaprine, [place], Neurontin, Creon, Cozaar, Lopressor, Prilosec, morphine pain pump. ALLERGIES: None. SOCIAL HISTORY: Chronic smoker, heavy alcohol abuse in the past and now drinks occasionally. FAMILY HISTORY: Father diabetes mellitus and mother hypertension, hyperlipidemia. REVIEW OF SYSTEMS: CARDIOPULMONARY: No chest pain or shortness of breath. GENITOURINARY: No dysuria or hematuria. MUSCULOSKELETAL: Chronic back pain. NEUROLOGY: Unremarkable. PSYCHIATRIC: Unremarkable. ENT: Vision unremarkable. GI: As mentioned above. ENDOCRINE: Unremarkable. PSYCHIATRIC: Unremarkable. CONSTITUTIONAL: No recent weight loss. No fever, chills, night sweats. PHYSICAL EXAMINATION: Blood pressure 176/100, pulse rate 99, temperature 98.6. HEENT: Examination unremarkable, conjunctivae are pink, sclerae nonicteric, oral cavity no lesions. NECK: No JVD or lymph node encouragement. CHEST: Clear to auscultation. HEART: Regular rate and rhythm. ABDOMEN: Soft, mild tenderness in the epigastric area. Bowel sounds are positive, no organomegaly. EXTREMITIES: No pedal edema. SKIN: No rashes. NEUROLOGIC: Alert and oriented x3. No focal deficits. LABS: WBC 5.8, hemoglobin 11, platelets 312. BUN and creatinine normal. IMPRESSION: 1. Severe epigastric pain associated with nausea, vomiting, dry heaves, heartburn and hematemesis since yesterday morning. He threw up 3 times, bright red blood per rectum, bright red blood in the emesis. Hemoglobin 11 g/dL most likely dealing with severe gastroesophageal reflux symptoms. 2. Bilateral lower extremity cellulitis. Presently on broad-spectrum antibiotics. 3. History of chronic recurrent pancreatitis in the past, which is stable. RECOMMENDATIONS: 1. Continue Protonix 40 mg daily. 2. Will start him on Carafate 1 gram 4 times daily. 3. Scheduled for EGD tomorrow. 4. Repeat CBC in the morning. 5. Will follow with you closely. Thank you for this consultation. MMODL / IJN: [id number] /
[2020-04-05] MEDS: SUCRALFATE 1 GM TAB PO SCH ×2 (17:46→20:47)
[2020-04-05] MEDS: BENZOCAINE/MENTHOL LOZENG 1 EACH LOZENGE MUCOUS MEM PRN (17:54)
[2020-04-05] MEDS: VANCOMYCIN 1,250 MG in SODIUM CHLORIDE 0.9% 250 ML IVPB SCH (19:06)
[2020-04-05] MEDS ORDERED: VANCOMYCIN 1,000 MG in SODIUM CHLORIDE 0.9% 250 ML IVPB SCH (21:00)
[2020-04-06] MEDS: BENZOCAINE/MENTHOL LOZENG 1 EACH LOZENGE MUCOUS MEM PRN ×3 (00:01→22:33)
[2020-04-06] MEDS: HYDROcodone/APAP 5-325MG 1 EACH TAB PO PRN ×4 (00:03→21:08)
[2020-04-06 07:06] LABS: African American GFR (CKD) >90 (>60 ml/min/1.73 sqM); Anion Gap 4 mmol/L; Blood Urea Nitrogen 6 mg/dL (9-20); Calcium 8.2 mg/dL (8.4-10.2); Carbon Dioxide 24 mmol/L (22-30); Chloride 106 mmol/L (98-107); Glucose 102 mg/dL (74-99); Non-African American GFR(CKD) >90 (>60 ml/min/1.73 sqM); Potassium 4.1 mmol/L (3.5-5.1); Sodium 134 mmol/L (137-145)
[2020-04-06 07:23] LABS: Basophils % (A) 0 %; Eosinophils # (A) 0.1 k/uL (0-0.7); Eosinophils % (A) 1 %; HCT 32.4 % (39.0-53.0); HGB 10.7 gm/dL (13.0-17.5); Lymphocytes % (A) 8 %; MCH 32.1 pg (25.0-35.0); MCHC 32.9 g/dL (31.0-37.0); MCV 97.4 fL (80.0-100.0); Mean Platelet Volume 7.7; Monocytes # (A) 0.9 k/uL (0-1.0); Monocytes % (A) 7 %; Neutrophils # (A) 10.6 k/uL (1.3-7.7); Neutrophils % (A) 84 %; Platelet Count 260 k/uL (150-450); RBC 3.33 m/uL (4.30-5.90); RDW 15.7 % (11.5-15.5); WBC 12.6 k/uL (3.8-10.6)
[2020-04-06] MEDS: LIPASE 5,000/PROTEASE 17,000/AMYLASE 24,000 PO SCH ×3 (07:34→16:50)
[2020-04-06] MEDS: MAGNESIUM OXIDE 400 MG TAB PO SCH (07:36)
[2020-04-06] MEDS: METOPROLOL TARTRATE 25 MG TAB PO SCH ×2 (07:36→20:28)
[2020-04-06] MEDS: LOSARTAN 50 MG TAB PO SCH (07:36)
[2020-04-06] MEDS: GABAPENTIN 400 MG CAP PO SCH ×3 (07:36→20:28)
[2020-04-06] MEDS: FOLIC ACID 1 MG TAB PO SCH (07:37)
[2020-04-06] MEDS: PANTOPRAZOLE 40 MG/10 ML VIAL IVP SCH ×2 (07:37→20:28)
[2020-04-06] MEDS: CYCLOBENZAPRINE 10 MG TAB PO SCH ×2 (07:37→20:29)
[2020-04-06] MEDS: SUCRALFATE 1 GM TAB PO SCH ×4 (07:37→20:28)
[2020-04-06] MEDS: NICOTINE 21MG/24HR PATCH TRANSDERM SCH (07:37)
[2020-04-06] MEDS: ENOXAPARIN 40 MG/0.4 ML SYRINGE SQ SCH (07:38)
[2020-04-06] MEDS ORDERED: diphenhydrAMINE 25 MG CAP PO PRN (11:49)
[2020-04-06] MEDS ORDERED: LIDOCAINE 2% SYG (PF) 100 MG/5 ML ONE (14:36)
[2020-04-06] MEDS ORDERED: PROPOFOL 10 MG/ML 20 ML VIAL IV ONE (14:36)
[2020-04-06] MEDS ORDERED: IV FLUID CONTINUATION 1,000 ML IV ONE ×2 (14:36)
--- NOTE | 2020-04-06 14:48 | P.PCN ---
Date of Procedure: 04/06/20 Procedure(s) Performed: BRIEF HISTORY: Patient is a 49-year-old, pleasant, white male admitted hospital with bilateral lower lip severe cellulitis. While in the hospital he developed severe heartburn multiple episodes of nausea vomiting as well as hematemesis. Hence scheduled for an upper endoscopy to evaluate further.. PROCEDURE PERFORMED: Esophagogastroduodenoscopy. PREOPERATIVE DIAGNOSIS: Severe heartburn, dysphagia or odynophagia in hematemesis. IV sedation per anesthesia. PROCEDURE: After informed consent was obtained, the patient was brought into the endoscopy unit. IV sedation was administered by Anesthesia under continuous monitoring. Initially the Olympus GIF-140 video endoscope was inserted into the mouth. Esophagus intubated without any difficulty. It was gradually advanced into the stomach and duodenum and carefully examined. The bulb and the second part of the duodenum appeared normal. The scope at this time was withdrawn to the stomach, adequately insufflated with air, and upon careful examination, mucosa of the antrum, body, cardia and the fundus appeared normal. The scope was then withdrawn into the esophagus. Swallow hiatal hernia noted. The GE junction was located at 38 cm from the incisors. There was severe reflux esophagitis extending from 20-38 cm from the incisors with ulcerations and exudates consistent with LA grade D reflux esophagitis. The proximal esophagus appeared normal. The patient tolerated the procedure well. IMPRESSION: 1. Severe ulcerative esophagitis involving the mid and distal esophagus extending from 25-38 cm from the incisors consistent with LA grade D reflux esophagitis. 2. Small hiatal hernia. RECOMMENDATIONS: The findings of this examination were discussed with the patient . He'll be started on a soft diet. Continue with Protonix 40 mg twice daily as well as Carafate 1 g 4 times daily..
--- NOTE | 2020-04-06 15:06 | P.PN ---
Subjective Progress Note Date: 04/06/20 Bilateral lower extremity cellulitis 49 years old male with past medical history of moderate left hydronephrosis per ultrasound from 02/13/20. Other chronic medical problems including COPD, GERD, GI bleed, hypertension, hyperlipidemia, alcoholic hepatitis, bilateral lower extremity neuropathy, chronic back problems on morphine pump, and chronic urinary retention with self-catheterization chronic left hydronephrosis, also a cigarette smoker, he is a patient of Dr. stroud Patient presents because of nausea, vomiting and diarrhea. Days duration, patient is vomiting about 3 times per day, he had 1 runny bowel movement yesterday, he complains from periumbilical abdominal pain redness on both sides, reactive to walk 10/10 in severity that lack sharp. 04/03/2020 Patient is seen and evaluated in room at bedside; continues to complain of uncontrolled pain; vital signs are reviewed and stable Patient remains on IV cefazolin and vancomycin; we will increase twice a day dosing 04/04/2020 Patient continues to complain of severe pain in both lower extremities; remains afebrile; patient remains on IV vancomycin and cefazolin for lower extremity cellulitis; we will monitor CBC, pro-calcitonin and CRP and tailor antibiotic therapy accordingly; recommend consult ID if cellulitis remains unchanged in next 24 hours 04/05/2020 Patient is seen and evaluated and follow-up this morning and is stating he is having some chest pain along with an increase in nausea vomiting and acid reflux noted. Per nursing staff patient has been vomiting and appears to be coffee- ground emesis in nature. Patient is currently maintained on IV antibiotics in the form of cefazolin for bilateral lower extremity cellulitis. GI has been consulted and patient is been made nothing by mouth as he continues to vomit. Current hemoglobin is stable at 11.0. Patient is maintained on oral Protonix which we'll transition to IV Protonix at this time. Patient does have Zofran ordered although states is not helping and Reglan was added. EKG was done showing sinus tachycardia. Review of systems: Constitutional: No reports of fatigue, fever, or chills Cardiovascular: Reports intermittent chest pain no reports of palpitations Respiratory: No reports of shortness of breath or cough GI: Reports nausea and vomiting of coffee-ground emesis with no reports of diarrhea : No reports of dysuria or retention Neurovascular: Reports weakness with no reports of numbness All medications have been reviewed 04/06/2020 Patient is seen and evaluated in follow-up currently nothing by mouth as he is scheduled to undergo EGD with GI today. Patient states he is feeling much b mahesh and denies any nausea or vomiting today. Patient denies any coffee-ground emesis and also denies any blood noted in the stool. Patient's bilateral lower extremity cellulitis has improved although patient states it is itchy with scabs noted. Benadryl as needed along with some local wound care added. Patient is currently maintained on cefazolin and will likely transition to oral antibiotics upon discharge. Patient patient denies any chest pain, shortness of breath, or palpitations. Patient is afebrile. No reports of nausea or vomiting and patient is currently nothing by mouth. Objective - Vital Signs Vital signs: Vital Signs Temp 98.5 F 04/06/20 07:18 Pulse 93 04/06/20 07:18 Resp 17 04/06/20 07:18 BP 163/93 04/06/20 07:18 Pulse Ox 98 04/06/20 04:59 Intake & Output 04/05/20 04/06/20 04/06/20 18:59 06:59 18:59 Intake Total 1180 Output Total 800 Balance -800 1180 Intake: Oral 1180 Output: Emesis 800 Other: Voiding Method Toilet Toilet # Voids 4 - Exam GENERAL: The patient is alert and oriented x3, not in any acute distress. Well developed, well nourished. HEENT: Pupils are round and equally reacting to light. EOMI. No scleral icterus. No conjunctival pallor. Normocephalic, atraumatic. No pharyngeal erythema. No thyromegaly. CARDIOVASCULAR: S1 and S2 present. No murmurs, rubs, or gallops. PULMONARY: Chest is clear to auscultation, no wheezing or crackles. ABDOMEN: Soft, nontender, nondistended, normoactive bowel sounds. No palpable organomegaly. MUSCULOSKELETAL: No joint swelling or deformity. EXTREMITIES: No cyanosis, clubbing, or pedal edema. Bilateral lower extremities with improvement in redness with multiple scabs noted. Slightly improved NEUROLOGICAL: Gross neurological examination did not reveal any focal deficits. SKIN: No rashes. No petechiae - Labs CBC & Chem 7: 04/06/20 06:25 04/06/20 06:25 Labs: Abnormal Lab Results - Last 24 Hours (Table) 04/05/20 04/06/20 04/06/20 Range/Units 06:55 06:25 06:25 WBC 12.6 H (3.8-10.6) k/uL RBC 3.33 L (4.30-5.90) m/uL Hgb 10.7 L (13.0-17.5) gm/dL Hct 32.4 L (39.0-53.0) % RDW 15.7 H (11.5-15.5) % Neutrophils # 10.6 H (1.3-7.7) k/uL Sodium 134 L (137-145) mmol/L BUN 6 L (9-20) mg/dL Glucose 102 H (74-99) mg/dL Calcium 8.2 L (8.4-10.2) mg/dL Procalcitonin 0.12 H (0.02-0.09) ng/mL Microbiology - Last 24 Hours (Table) 03/31/20 18:54 Blood Culture - Preliminary Blood No Growth after 120 hours Assessment and Plan Assessment: Bilateral lower extremity cellulitis Elevated d-dimer, no DVT in the lower extremities. Ruled out pulmonary embolism Chronic left hydronephrosis Hypertension Hyperlipidemia Gastroesophageal reflux disease History of alcoholic hepatitis History of GI bleed Chronic back problem on morphine pump Chronic urinary retention with history of self-catheterization Nicotine dependence Lower extremity neuropathy benign prostatic hypertrophy Anxiety, depression, not active issue, patient denies suicidal ideation GI prophylaxis: Protonix DVT prophylaxis: Subcutaneous heparin Plan: Continue current medications, management, and symptomatic treatment. Patient is maintained on IV antibiotics and will continue at this time for bilateral lower extremity cellulitis. Will likely transition to oral antibiotics upon discharge. Patient underwent EGD with GI showing severe ulcerative esophagitis involving the mid and distal esophagus extending from 25-38 cm from the incisors consistent with a grade D reflux esophagitis, and a small hiatal hernia. Patient will be started on a soft diet and will continue with Protonix 40 mg twice daily and Carafate has been added. Will repeat a.m. labs. Further recommendations to follow. Anticipate discharge in 24 hours.
[2020-04-07] MEDS: BENZOCAINE/MENTHOL LOZENG 1 EACH LOZENGE MUCOUS MEM PRN ×2 (03:26→08:20)
[2020-04-07] MEDS: HYDROcodone/APAP 5-325MG 1 EACH TAB PO PRN ×3 (03:27→13:33)
[2020-04-07 06:23] LABS: Basophils % (A) 0 %; Eosinophils % (A) 1 %; HCT 26.8 % (39.0-53.0); Lymphocytes % (A) 13 %; MCH 32.8 pg (25.0-35.0); MCHC 33.2 g/dL (31.0-37.0); MCV 98.9 fL (80.0-100.0); Macrocytosis Slight; Mean Platelet Volume 7.7; Monocytes # (A) 0.5 k/uL (0-1.0); Monocytes % (A) 7 %; Neutrophils # (A) 5.7 k/uL (1.3-7.7); Neutrophils % (A) 78 %; Platelet Count 239 k/uL (150-450); RBC 2.71 m/uL (4.30-5.90); RDW 15.3 % (11.5-15.5); WBC 7.4 k/uL (3.8-10.6)
[2020-04-07 06:57] LABS: HGB 8.9 gm/dL (13.0-17.5)
[2020-04-07] MEDS: FOLIC ACID 1 MG TAB PO SCH (08:20)
[2020-04-07] MEDS: SUCRALFATE 1 GM TAB PO SCH ×2 (08:20→13:10)
[2020-04-07] MEDS: MAGNESIUM OXIDE 400 MG TAB PO SCH (08:20)
[2020-04-07] MEDS: LIPASE 5,000/PROTEASE 17,000/AMYLASE 24,000 PO SCH ×2 (08:21→13:09)
[2020-04-07] MEDS: PANTOPRAZOLE 40 MG/10 ML VIAL IVP SCH (08:21)
[2020-04-07] MEDS: METOPROLOL TARTRATE 25 MG TAB PO SCH (08:21)
[2020-04-07] MEDS: LOSARTAN 50 MG TAB PO SCH (08:21)
[2020-04-07] MEDS: CYCLOBENZAPRINE 10 MG TAB PO SCH (08:21)
[2020-04-07] MEDS: NICOTINE 21MG/24HR PATCH TRANSDERM SCH (08:21)
[2020-04-07] MEDS: ENOXAPARIN 40 MG/0.4 ML SYRINGE SQ SCH (08:22)
[2020-04-07] MEDS: GABAPENTIN 400 MG CAP PO SCH (08:22)
[2020-04-07 09:26] LABS: African American GFR (CKD) 126.6 (60.0-200.0); Anion Gap 5.7 mmol/L (4.00-12.00); BUN/Creat Ratio 12.86 Ratio (12.00-20.00); Calcium 7.9 mg/dL (8.7-10.3); Carbon Dioxide 26.3 mmol/L (21.6-31.8); Non-African American GFR(CKD) 109.3 (60.0-200.0); Potassium 3.6 mmol/L (3.5-5.5)
--- NOTE | 2020-04-07 12:12 | P.PN ---
Subjective Progress Note Date: 04/07/20 Principal diagnosis: GI Bleed, anemia This is a 49-year-old pleasant male who was admitted to the hospital with bilateral lower extremity cellulitis. While he was in the hospital he developed severe heartburn and epigastric pain with multiple episodes of nausea vomiting with hematemesis. He is status post upper endoscopy yesterday which revealed severe ulcerated esophagitis and small hiatal hernia. The patient was started on Carafate 1 g 4 times daily. Today he states he is feeling much better. He has had no further episodes of nausea or vomiting. He denies any abdominal pain. He states he wants to be discharged home. Objective - Vital Signs Vital signs: Vital Signs Temp 98.4 F 04/07/20 04:54 Pulse 80 04/07/20 04:54 Resp 16 04/07/20 04:54 BP 137/85 04/07/20 04:54 Pulse Ox 96 04/07/20 04:54 Intake & Output 04/06/20 04/07/20 04/07/20 18:59 06:59 18:59 Intake Total 100 720 240 Balance 100 720 240 Intake: IV 50 Intake, IV Titration 50 Amount ceFAZolin 1,000 mg In 50 Sodium Chloride 0.9% 50 ml @ 100 mls/hr IVPB Q8HR [facility] Rx#:[id number] Oral 720 240 Other: Voiding Method Toilet Toilet # Voids 1 - Exam General appearance: The patient is alert, oriented, in no acute distress. HET: Head is normocephalic and atraumatic. Conjunctiva pink. Sclera and icteric. Neck: Supple without lymphadenopathy. Abdomen: Soft, nontender, nondistended with bowel sounds. No guarding or rigidity. Extremities: Normal skin color and turgor. No pedal edema Neurological: No focal deficits. Alert and oriented 3. - Labs CBC & Chem 7: 04/07/20 05:48 04/07/20 05:48 Labs: Abnormal Lab Results - Last 24 Hours (Table) 04/07/20 04/07/20 Range/Units 05:48 05:48 RBC 2.71 L (4.30-5.90) m/uL Hgb 8.9 L D (13.0-17.5) gm/dL Hct 26.8 L (39.0-53.0) % Calcium 7.9 L (8.7-10.3) mg/dL Microbiology - Last 24 Hours (Table) 03/31/20 18:54 Blood Culture - Final Blood No Growth after 144 hours Assessment and Plan Assessment: 1.Severe epigastric pain associated with nausea, vomiting, heartburn and hematemesis he is status post upper endoscopy which revealed severe ulcerative esophagitis involving the mid and distal esophagus extending from 25-38 cm from the incisors consistent with probably grade D reflux esophagitis, and a small hiatal hernia. He will continue with Protonix 40 mg twice daily and Carafate 1 g 4 times daily. 2. Bilateral lower extremity cellulitis. Presently on broad-spectrum antibiotics 3. History of chronic recurrent pancreatitis in the past which is stable Plan: 1. Continue Protonix 40 mg twice daily 2. Started on Carafate 1 g 4 times daily 3. Repeat CBC reviewed 4. Agree patient may be discharged home with close follow-up. The impression and plan of care has been dictated as directed. Dr. Tonio Kellogg I performed a history and examination of this patient, discussed the same with the dictator. I agree with the dictator's note ,documented as a scribe. Any additional findings or plans will be noted.
[2020-04-07 12:39] VITALS: BP 137/85; PULSE 80; RESP 16; TEMP 98.4
[2020-04-07 13:02] VITALS: BMI 28.7
--- NOTE | 2020-04-08 09:17 | P.DS ---
Providers Date of admission: 03/31/20 20:52 Expected date of discharge: 04/07/20 Attending physician: Socorro Barragan Consults: 04/05/20 08:34 Consult Physician Routine Consulting Provider: Consuelo Kellogg Consult Reason/Comments: possibleGI bleed Do you want consulting provider notified?: Yes Primary care physician: [facility] Course: Final diagnosis Bilateral lower extremity cellulitis Elevated d-dimer, no DVT in the lower extremities. Ruled out pulmonary embolism Chronic left hydronephrosis Hypertension Hyperlipidemia Gastroesophageal reflux disease History of alcoholic hepatitis History of GI bleed Chronic back problem on morphine pump Chronic urinary retention with history of self-catheterization Nicotine dependence Lower extremity neuropathy benign prostatic hypertrophy Anxiety, depression, not active issue, patient denies suicidal ideation GI prophylaxis: Protonix DVT prophylaxis Discharge disposition Patient is being discharged in a stable condition with guarded prognosis to home. Patient will follow-up with Dr. Quinones in the outpatient setting upon discharge. Patient will also be following up with GI along with painter drum in the outpatient setting. Patient will continue on Protonix 40 mg twice daily along with Carafate 1 g 4 times daily until GI follow-up. Total time taken is greater than 35 minutes. History of present illness This is a 49-year-old male who was recently admitted with nausea, vomiting, diarrhea along with perimbilical abdominal pain and was being closely monitored. Patient was seen and evaluated by GI as patient continued to have vomiting and coffee-ground emesis was noted. Patient did undergo EGD showing severe ulcerative colitis involving the mid and distal esophagus extending from 25-38 cm from the teeth consistent with grade D reflux esophagitis and a small hiatal hernia. Nausea and vomiting has resolved and patient feels much better. Patient will continue on Protonix 40 mg twice daily along with Carafate 1 g 4 times daily in the outpatient setting and will be following up with GI as discussed and scheduled. Patient was also being treated for bilateral lower extremity cellulitis on cefazolin which showed improvement and will continue on oral Keflex 500 mg 3 times daily for the next one week to complete the course. Currently no reports of chest pain, shortness of breath, or palpitations. Patient is afebrile. No reports of nausea or vomiting and patient is tolerating diet. Patient instructed to continue with soft diet and advance slowly on diet as tolerated. Patient verbalized understanding. Patient will be discharged home today. On exam vital signs are stable. Temp is 98.4F, pulse is 80, respirations are 16, blood pressure is 137/85, oxygen saturation is 96% on room air. Cardio S1, S2 are muffled. Respiratory system shows diminished breath sounds at the bases with no wheezing or rhonchi noted. Abdomen is soft and nontender. Nervous system shows no focal deficits. Please refer to medication reconciliation sheet for a list of medications. Patient Condition at Discharge: Stable Plan - Discharge Summary Discharge Rx Participant: No New Discharge Prescriptions: New Sucralfate [Carafate] 1 gm PO QID 30 Days #120 tab Benzocaine/Menthol Lozeng [Cepacol lozenge] 1 each MUCOUS MEM Q4HR PRN #12 lozenge PRN Reason: Sore Throat Cephalexin [Keflex] 500 mg PO Q8HR 7 Days #21 cap Pantoprazole Sodium [Protonix] 40 mg PO BID 30 Days #60 tablet.dr Drake Magnesium Oxide [Mag-Ox] 400 mg PO DAILY Metoprolol Tartrate [Lopressor] 25 mg PO BID HYDROcodone/APAP 5-325MG [[place] 5-325] 1 tab PO DAILY Losartan [Cozaar] 50 mg PO DAILY Cyclobenzaprine HCl 10 mg PO BID Folic Acid 1 mg PO DAILY Lipase/Protease/Amylase [[place] 24,000 Units Capsule] 48,000 units PO AC- TID Gabapentin [Neurontin] 400 mg PO TID Omeprazole [PriLOSEC] 40 mg PO DAILY Morphine Pain Pump 1 dose INTRATHECA CONTINUOUS Discharge Medication List Magnesium Oxide [Mag-Ox] 400 mg PO DAILY 09/18/17 [History] Cyclobenzaprine HCl 10 mg PO BID 11/25/19 [History] Folic Acid 1 mg PO DAILY 11/25/19 [History] Gabapentin [Neurontin] 400 mg PO TID 11/25/19 [History] HYDROcodone/APAP 5-325MG [[place] 5-325] 1 tab PO DAILY 11/25/19 [History] Lipase/Protease/Amylase [[place] 24,000 Units Capsule] 48,000 units PO AC-TID 11/25/19 [History] Losartan [Cozaar] 50 mg PO DAILY 11/25/19 [History] Metoprolol Tartrate [Lopressor] 25 mg PO BID 11/25/19 [History] Morphine Pain Pump 1 dose INTRATHECA CONTINUOUS 11/25/19 [History] Omeprazole [PriLOSEC] 40 mg PO DAILY 11/25/19 [History] Benzocaine/Menthol Lozeng [Cepacol lozenge] 1 each MUCOUS MEM Q4HR PRN #12 lozenge 04/07/20 [Rx] Cephalexin [Keflex] 500 mg PO Q8HR 7 Days #21 cap 04/07/20 [Rx] Pantoprazole Sodium [Protonix] 40 mg PO BID 30 Days #60 tablet.dr 04/07/20 [Rx] Sucralfate [Carafate] 1 gm PO QID 30 Days #120 tab 04/07/20 [Rx] Follow up Appointment(s)/Referral(s): Consuelo Kellogg MD [STAFF PHYSICIAN] - 04/14/20 2:00 pm () Kerri Quinones MD [Primary Care Provider] - 04/09/20 2:30 pm (This will be a [facility] visit via phone please call the office and they will help you set it up.) Patient Instructions/Handouts: Cephalexin (By mouth), Sucralfate (By mouth), Pantoprazole (By mouth), Benzocaine/Menthol (By mouth), Cellulitis (GEN) Activity/Diet/Wound Care/Special Instructions: Activity Limited until follow-up Follow-up with primary care provider upon discharge Follow up with painter drum in the outpatient setting Continue current diet of soft chopped diet until GI follow-up Continue with Protonix and Carafate until GI follow-up Follow-up with GI in the outpatient setting Continue with antibiotics for the next 7 days until finished Discharge Disposition: HOME SELF-CARE
== END 2020-04-07 14:47 | disposition home or self-care (01) | DRG 602 ==
LOC: EC 16:54 → 6NMEDSUR 20:52
PROVIDERS: ADMIT Hospitalist; ATTEND Hospitalist
PROC: 0DJ08ZZ Inspection of Upper Intestinal Tract, Via Natural or Artificial Opening Endoscopic (ICD-10-PCS; principal; 2020-04-06 08:35)
DX: L03.115 Cellulitis of right lower limb (principal); K22.11 Ulcer of esophagus with bleeding; K21.01 Gastro-esophageal reflux disease with esophagitis, with bleeding; K86.1 Other chronic pancreatitis; N13.30 Unspecified hydronephrosis; L03.116 Cellulitis of left lower limb; N40.1 Benign prostatic hyperplasia with lower urinary tract symptoms; Z79.899 Other long term (current) drug therapy; D64.9 Anemia, unspecified; Z20.828 Contact with and (suspected) exposure to other viral communicable diseases; E78.5 Hyperlipidemia, unspecified; F17.210 Nicotine dependence, cigarettes, uncomplicated; F32.9 Major depressive disorder, single episode, unspecified; F41.9 Anxiety disorder, unspecified; G62.9 Polyneuropathy, unspecified; I10 Essential (primary) hypertension; J44.9 Chronic obstructive pulmonary disease, unspecified; K44.9 Diaphragmatic hernia without obstruction or gangrene; R33.8 Other retention of urine; Z82.49 Family history of ischemic heart disease and other diseases of the circulatory system; Z83.3 Family history of diabetes mellitus; Z87.19 Personal history of other diseases of the digestive system; Z87.442 Personal history of urinary calculi; F10.11 Alcohol abuse, in remission; Z90.49 Acquired absence of other specified parts of digestive tract; Z82.0 Family history of epilepsy and other diseases of the nervous system; R79.1 Abnormal coagulation profile
CPT/HCPCS: 36415; 43235; 71275; 80048; 80053; 80202; 82565; 83735; 84100; 84145; 84484; 85025; 85379; 86140; 87040; 87635; 93970; 96361; 96365; 96366; 96367; 96375; 96376; 99285

== ENCOUNTER → 2020-05-31 | Outpatient (CLI) | payer MEDICARE, OTHER ==
--- NOTE | 2020-05-31 13:31 | US ---
EXAMINATION TYPE: US venous doppler duplex LE DATE OF EXAM: 05/31/2020 1:07 PM COMPARISON: NONE CLINICAL HISTORY: 49-year-old male R22.43 Localized swelling, mass and lump, lower li. Bilateral calf redness and pain. Not on blood thinners. SIDE PERFORMED: Bilateral TECHNIQUE: The lower extremity deep venous system is examined utilizing real time linear array sonog sheeba with graded compression, doppler sonography and color-flow sonography. FINDINGS: VESSELS IMAGED: Common Femoral Vein Deep Femoral Vein Greater Saphenous Vein * Femoral Vein Popliteal Vein Small Saphenous Vein * Proximal Calf Veins (* superficial vessels) Right Leg: Negative for DVT Left Leg: Negative for DVT IMPRESSION: No evidence for DVT within the bilateral lower extremities imaged from the groin to the upper calves.
== END | disposition home or self-care (01) ==
LOC: RADUSWWP 12:46
PROVIDERS: ATTEND Family Medicine
DX: R22.43 Localized swelling, mass and lump, lower limb, bilateral (principal); G89.29 Other chronic pain; M79.605 Pain in left leg; M79.604 Pain in right leg
CPT/HCPCS: 93970

== ENCOUNTER → 2020-06-04 | Outpatient (CLI) | payer MEDICARE, OTHER ==
--- NOTE | 2020-06-09 10:41 | P.ARTDOP ---
Arterial Doppler LOWER EXTREMITY ARTERIAL DOPPLER: DATE OF SERVICE: 06/04/2020 Reason for study: Bilateral chronic leg pain. Doppler waveforms: Multiphasic bilaterally throughout. Pulse volume recording: []. Pressure gradients: None. Ankle-brachial indices: Greater than 1 bilaterally. Toe brachial indices: 0.76 on the right, 0.67 on the left Impression: Normal study.
== END | disposition home or self-care (01) ==
LOC: RADUSWWP 12:51
PROVIDERS: ATTEND Family Medicine
DX: R22.43 Localized swelling, mass and lump, lower limb, bilateral (principal); G89.29 Other chronic pain; M79.604 Pain in right leg; M79.605 Pain in left leg
CPT/HCPCS: 93922

== ENCOUNTER 2020-06-14 16:33 | Emergency (ER) | payer MEDICARE, OTHER ==
[2020-06-14 16:45] VITALS: RESP 18; TEMP 98.6
[2020-06-14] MEDS ORDERED: SODIUM CHLORIDE 0.9% 1,000 ML IV STA (17:43)
[2020-06-14] MEDS ORDERED: cefTRIAXone IN SWFI 1,000 MG/10 ML SYRINGE IVP STA (17:44)
--- NOTE | 2020-06-14 18:39 | ED ---
General Adult HPI - General Chief complaint: Extremity Problem,Nontraumatic Stated complaint: Cellulitius in legs Time Seen by Provider: 06/14/20 16:52 Source: patient Mode of arrival: wheelchair Limitations: no limitations - History of Present Illness Initial comments: 49-year-old male with a complicated past medical history including COPD, GERD, hyperlipidemia, hypertension, chronic alcohol abuse presents to the emergency room for bilateral lower extremity cellulitis. Reports this has been ongoing on and off for the past 4 months. States he was seen in the hospital and given IV antibiotics and it did improve. It looks like patient was seen at that time for GI bleed as well. Patient reports that it has been relatively persistent since that time. She was started on Keflex 3 weeks ago and it did not seem to help. Patient states his legs are tender and painful and a little swollen. He denies fevers. Patient was worked up for DVT in the past.Patient has no other complaints at this time including shortness of breath, chest pain, abdominal pain, nausea or vomiting, headache, or visual changes. - Related Data Home Medications Medication Instructions Recorded Confirmed Magnesium Oxide [Mag-Ox] 400 mg PO DAILY 09/18/17 06/14/20 Cyclobenzaprine HCl 10 mg PO BID 11/25/19 06/14/20 Gabapentin [Neurontin] 400 mg PO TID 11/25/19 06/14/20 HYDROcodone/APAP 5-325MG [[place] 1 tab PO BID 11/25/19 06/14/20 5-325] Lipase/Protease/Amylase [[place] 48,000 units PO AC-TID 11/25/19 06/14/20 24,000 Units Capsule] Losartan [Cozaar] 50 mg PO DAILY 11/25/19 06/14/20 Metoprolol Tartrate [Lopressor] 25 mg PO BID 11/25/19 06/14/20 Morphine Pain Pump 1 dose INTRATHECA CONTINUOUS 11/25/19 06/14/20 Omeprazole [PriLOSEC] 40 mg PO DAILY 11/25/19 06/14/20 Budesonide/Formoterol Fumarate 2 puff INHALATION RT-BID 06/14/20 06/14/20 [Symbicort 160-4.5 Mcg Inhaler] Ergocalciferol (Vitamin D2) 1,250 mcg PO MO 06/14/20 06/14/20 [Drisdol (50,000 Iu)] Furosemide [Lasix] 20 mg PO BID 06/14/20 06/14/20 Latanoprost/Pf [Latanoprost 0.005% 1 drop BOTH EYES HS 06/14/20 06/14/20 Eye Drop] Previous Rx's Medication Instructions Recorded Pantoprazole Sodium [Protonix] 40 mg PO BID 30 Days #60 tablet. 04/07/20 Clindamycin [Cleocin] 450 mg PO Q8H 7 Days #63 cap 06/14/20 Allergies Allergy/AdvReac Type Severity Reaction Status Date / Time No Known Allergies Allergy Verified 06/14/20 17:24 Review of Systems ROS Statement: Those systems with pertinent positive or pertinent negative responses have been documented in the HPI. ROS Other: All systems not noted in ROS Statement are negative. Past Medical History Past Medical History: COPD, GERD/Reflux, GI Bleed, Hyperlipidemia, Hypertension, Liver Disease, Pneumonia, Prostate Disorder Additional Past Medical History / Comment(s): ETOH ABUSE RECURRENT PANCREATITIS, ALCOHOLIC HEPATITIS, NEUROPATHY BILATERAL FEET SINCE BACK SURGERY, hx of CHRONIC URINARY RETENTION DUE TO BACK PROBLEMS-SELF CATHS, CHRONIC L HYDROURETERONEPHROSIS D/T REFLUX, CHRONIC LOW BACK PAIN, HAS MORPHINE PAIN PUMP, History of Any Multi-Drug Resistant Organisms: None Reported Past Surgical History: Back Surgery, Cholecystectomy, Orthopedic Surgery Additional Past Surgical History / Comment(s): EGDS, colonoscopy, bronchoscopy, BACK surgeries with TITANIUM PLATES [place] and CAGES, KIDNEY STONES removed per pt, SPINAL CORD STIMULATOR PLACED AND REMOVED ANCHORS REMAIN, ISMAEL KNEE ARTHROSCOPIES, PINKY FINGER RT HAND REATTATCHED. Past Anesthesia/Blood Transfusion Reactions: No Reported Reaction Past Psychological History: Anxiety, Depression Smoking Status: Current every day smoker Past Alcohol Use History: Occasional Past Drug Use History: None Reported - Past Family History Father Family Medical History: Diabetes Mellitus Additional Family Medical History / Comment(s): Mother Family Medical History: Dementia, Hyperlipidemia, Hypertension Additional Family Medical History / Comment(s): Mother is living. General Exam Limitations: no limitations General appearance: alert Head exam: Present: atraumatic, normal inspection Eye exam: Present: normal appearance, PERRL, EOMI. Absent: scleral icterus ENT exam: Present: normal exam, mucous membranes moist Neck exam: Present: normal inspection, full ROM. Absent: tenderness Respiratory exam: Present: normal lung sounds bilaterally. Absent: respiratory distress, wheezes Cardiovascular Exam: Present: regular rate, normal rhythm, normal heart sounds GI/Abdominal exam: Present: soft, normal bowel sounds. Absent: distended, tenderness Extremities exam: Present: other (minimal erythema and tenderness noted to bilar lower extremities. dp pulse 2+ bilat) Course Vital Signs 06/14/20 06/14/20 16:41 18:43 Temperature 98.6 F Pulse Rate 101 H 95 Respiratory 18 18 Rate Blood Pressure 146/95 154/100 O2 Sat by Pulse 100 98 Oximetry Medical Decision Making - Medical Decision Making Vitals are stable. Patient is well-appearing. He does have some minimal erythema of the bilateral lower extremities are no significant warmth or edema. Hemoglobin stable at 12.9. CMP does show mild hyponatremia however patient is a chronic alcoholic which is likely the cause. At this time patient is afebrile with a normal white blood cell count. He has had this ongoing for 4 months. We will try patient on outpatient on clindamycin. This will cover MRSA. He will return here for any worsening symptoms. Review: Patient had a negative DVT ultrasound on May 31. Bilateral arterial Doppler 5 years ago showed a normal study. I discussed this case with attending Dr. Quispe who agrees with this assessment and treatment plan. - Lab Data Result diagrams: 06/14/20 18:41 06/14/20 18:41 Lab Results 06/14/20 06/14/20 06/14/20 Range/Units 18:41 18:41 18:41 WBC 8.4 (3.8-10.6) k/uL RBC 4.23 L (4.30-5.90) m/uL Hgb 12.9 L (13.0-17.5) gm/dL Hct 39.9 (39.0-53.0) % MCV 94.3 (80.0-100.0) fL MCH 30.5 (25.0-35.0) pg MCHC 32.4 (31.0-37.0) g/dL RDW 16.5 H (11.5-15.5) % Plt Count 348 (150-450) k/uL MPV 6.8 Neutrophils % 86 % Lymphocytes % 8 % Monocytes % 4 % Eosinophils % 1 % Basophils % 0 % Neutrophils # 7.2 (1.3-7.7) k/uL Lymphocytes # 0.7 L (1.0-4.8) k/uL Monocytes # 0.4 (0-1.0) k/uL Eosinophils # 0.1 (0-0.7) k/uL Basophils # 0.0 (0-0.2) k/uL Anisocytosis Slight Sodium 127 L (137-145) mmol/L Potassium 4.9 (3.5-5.1) mmol/L Chloride 93 L (98-107) mmol/L Carbon Dioxide 28 (22-30) mmol/L Anion Gap 6 mmol/L BUN 10 (9-20) mg/dL Creatinine 1.05 (0.66-1.25) mg/dL Est GFR (CKD-EPI)AfAm >90 (>60 ml/min/1.73 sqM) Est GFR (CKD-EPI)NonAf 82 (>60 ml/min/1.73 sqM) Glucose 124 H (74-99) mg/dL Plasma Lactic Acid [place] 1.6 (0.7-2.0) mmol/L Calcium 8.5 (8.4-10.2) mg/dL Total Bilirubin 0.9 (0.2-1.3) mg/dL AST 65 H (17-59) U/L ALT 27 (4-49) U/L Alkaline Phosphatase 293 H (38-126) U/L Total Protein 7.5 (6.3-8.2) g/dL Albumin 3.4 L (3.5-5.0) g/dL Disposition Clinical Impression: Cellulitis Disposition: HOME SELF-CARE Condition: Good Instructions (If sedation given, give patient instructions): Cellulitis (ED) Additional Instructions: Please take antibiotic as directed. Follow-up with your doctor. If you develop any worsening symptoms such as fevers return to the emergency room. Prescriptions: Clindamycin [Cleocin] 450 mg PO Q8H 7 Days #63 cap Is patient prescribed a controlled substance at d/c from ED?: No Referrals: Kerri Quinones MD [Primary Care Provider] - 1-2 days Time of Disposition: 19:50
[2020-06-14 18:44] VITALS: PULSE 95
[2020-06-14] MEDS ORDERED: HYDROmorphone 1 MG/ML 1 ML SYRINGE IVP STA (18:47)
[2020-06-14] MEDS ORDERED: ONDANSETRON 4 MG/2 ML VIAL IVP STA (18:47)
[2020-06-14 18:55] LABS: Anisocytosis Slight; Basophils % (A) 0 %; Eosinophils # (A) 0.1 k/uL (0-0.7); Eosinophils % (A) 1 %; HCT 39.9 % (39.0-53.0); HGB 12.9 gm/dL (13.0-17.5); Lymphocytes # (A) 0.7 k/uL (1.0-4.8); Lymphocytes % (A) 8 %; MCH 30.5 pg (25.0-35.0); MCHC 32.4 g/dL (31.0-37.0); MCV 94.3 fL (80.0-100.0); Mean Platelet Volume 6.8; Monocytes # (A) 0.4 k/uL (0-1.0); Monocytes % (A) 4 %; Neutrophils # (A) 7.2 k/uL (1.3-7.7); Neutrophils % (A) 86 %; Platelet Count 348 k/uL (150-450); RBC 4.23 m/uL (4.30-5.90); RDW 16.5 % (11.5-15.5); WBC 8.4 k/uL (3.8-10.6)
[2020-06-14 19:06] LABS: ALT 27 U/L (4-49); AST 65 U/L (17-59); African American GFR (CKD) >90 (>60 ml/min/1.73 sqM); Albumin 3.4 g/dL (3.5-5.0); Alkaline Phosphatase 293 U/L (38-126); Anion Gap 6 mmol/L; Blood Urea Nitrogen 10 mg/dL (9-20); Calcium 8.5 mg/dL (8.4-10.2); Carbon Dioxide 28 mmol/L (22-30); Chloride 93 mmol/L (98-107); Glucose 124 mg/dL (74-99); Non-African American GFR(CKD) 82 (>60 ml/min/1.73 sqM); Sodium 127 mmol/L (137-145); Total Bilirubin 0.9 mg/dL (0.2-1.3); Total Protein 7.5 g/dL (6.3-8.2)
[2020-06-14 19:07] LABS: Potassium 4.9 mmol/L (3.5-5.1)
[2020-06-14 21:21] VITALS: BP 150/98
== END 2020-06-14 20:50 | disposition home or self-care (01) ==
LOC: EC 16:33
DX: L03.116 Cellulitis of left lower limb (principal); L03.115 Cellulitis of right lower limb; E87.1 Hypo-osmolality and hyponatremia; F10.20 Alcohol dependence, uncomplicated; F17.200 Nicotine dependence, unspecified, uncomplicated; J44.9 Chronic obstructive pulmonary disease, unspecified; K21.9 Gastro-esophageal reflux disease without esophagitis; E78.5 Hyperlipidemia, unspecified; I10 Essential (primary) hypertension; G89.29 Other chronic pain; M54.5 Low back pain; K70.10 Alcoholic hepatitis without ascites; G62.1 Alcoholic polyneuropathy; F41.9 Anxiety disorder, unspecified; F32.9 Major depressive disorder, single episode, unspecified; Z79.51 Long term (current) use of inhaled steroids; Z79.899 Other long term (current) drug therapy; Z79.891 Long term (current) use of opiate analgesic; Z87.19 Personal history of other diseases of the digestive system
CPT/HCPCS: 36415; 80053; 83605; 85025; 87040; 99283; 96374; 96375 ×2; 96361; J2405; J0696; J1170

== ENCOUNTER 2020-07-19 13:45 | Observation (INO) | payer MEDICARE, OTHER ==
[2020-07-19] MEDS ORDERED: NITROGLYCERIN OINT 1 INCH/GM PACKET TOPICAL STA (14:18)
[2020-07-19] MEDS ORDERED: ASPIRIN 81 MG PO STA (14:18)
[2020-07-19 14:32] LABS: Anisocytosis Slight; Basophils % (A) 1 %; Eosinophils % (A) 1 %; HCT 38.5 % (39.0-53.0); Lymphocytes # (A) 0.5 k/uL (1.0-4.8); Lymphocytes % (A) 8 %; MCH 32.5 pg (25.0-35.0); MCHC 33.7 g/dL (31.0-37.0); MCV 96.4 fL (80.0-100.0); Mean Platelet Volume 7.5; Monocytes # (A) 0.4 k/uL (0-1.0); Monocytes % (A) 6 %; Neutrophils # (A) 5.5 k/uL (1.3-7.7); Neutrophils % (A) 85 %; Platelet Count 267 k/uL (150-450); RBC 3.99 m/uL (4.30-5.90); RDW 16.1 % (11.5-15.5); WBC 6.4 k/uL (3.8-10.6)
[2020-07-19 14:41] LABS: AST 38 U/L (17-59); African American GFR (CKD) >90 (>60 ml/min/1.73 sqM); Alkaline Phosphatase 220 U/L (38-126); Anion Gap 10 mmol/L; Blood Urea Nitrogen 7 mg/dL (9-20); Calcium 8.4 mg/dL (8.4-10.2); Carbon Dioxide 27 mmol/L (22-30); Chloride 91 mmol/L (98-107); Glucose 136 mg/dL (74-99); Magnesium 1.3 mg/dL (1.6-2.3); Non-African American GFR(CKD) >90 (>60 ml/min/1.73 sqM); Potassium 3.9 mmol/L (3.5-5.1); Sodium 128 mmol/L (137-145); Total Bilirubin 0.7 mg/dL (0.2-1.3); Total Protein 6.5 g/dL (6.3-8.2)
[2020-07-19 14:45] LABS: Partial Thromboplastin Time 25.2 sec (22.0-30.0); Prothrombin Time 11.1 sec (9.0-12.0)
--- NOTE | 2020-07-19 14:47 | XR ---
EXAMINATION TYPE: XR chest 2V DATE OF EXAM: 07/19/2020 COMPARISON: 03/23/2020 HISTORY: 49-year-old male with chest pain TECHNIQUE: AP and lateral views FINDINGS: The cardiomediastinal silhouette, aorta, and pulmonary vasculature are within normal limits. Hazy fabrizio g densities are noted to portable technique and patient body habitus. No randy consolidation or pleur al effusion seen. Spinal stimulator resected along the lower third thoracic spinal canal. IMPRESSION: No acute process seen.
[2020-07-19 14:50] LABS: ALT 22 U/L (4-49)
--- NOTE | 2020-07-19 15:15 | ED ---
General Adult HPI - General Chief complaint: Chest Pain Stated complaint: Chest pain Time Seen by Provider: 07/19/20 13:50 Source: patient, RN notes reviewed, old records reviewed Mode of arrival: wheelchair Limitations: no limitations - History of Present Illness Initial comments: This is a 49-year-old male who presents to the emergency department complaining of chest pain and shortness of breath. Patient states the shortness of breath this occurring when he has chest pain. Patient states been ongoing since last night and it hasn't really let up much. Patient denies any radiation of the pain to the back arm or neck. Patient denies any recent fever chills or cough. Patient denies any abdominal pain. Patient denies nausea vomiting diarrhea. He denies any diaphoretic episodes. Patient states he does smoke and has high blood pressure. - Related Data Home Medications Medication Instructions Recorded Confirmed Magnesium Oxide [Mag-Ox] 400 mg PO DAILY 09/18/17 06/14/20 Cyclobenzaprine HCl 10 mg PO BID 11/25/19 06/14/20 Gabapentin [Neurontin] 400 mg PO TID 11/25/19 06/14/20 HYDROcodone/APAP 5-325MG [Sharon 1 tab PO BID 11/25/19 06/14/20 5-325] Lipase/Protease/Amylase [Rebel Belcher 48,000 units PO AC-TID 11/25/19 06/14/20 24,000 Units Capsule] Losartan [Cozaar] 50 mg PO DAILY 11/25/19 06/14/20 Metoprolol Tartrate [Lopressor] 25 mg PO BID 11/25/19 06/14/20 Morphine Pain Pump 1 dose INTRATHECA CONTINUOUS 11/25/19 06/14/20 Omeprazole [PriLOSEC] 40 mg PO DAILY 11/25/19 06/14/20 Budesonide/Formoterol Fumarate 2 puff INHALATION RT-BID 06/14/20 06/14/20 [Symbicort 160-4.5 Mcg Inhaler] Ergocalciferol (Vitamin D2) 1,250 mcg PO MO 06/14/20 06/14/20 [Drisdol (50,000 Iu)] Furosemide [Lasix] 20 mg PO BID 06/14/20 06/14/20 Latanoprost/Pf [Latanoprost 0.005% 1 drop BOTH EYES HS 06/14/20 06/14/20 Eye Drop] Previous Rx's Medication Instructions Recorded Pantoprazole Sodium [Protonix] 40 mg PO BID 30 Days #60 tablet. 04/07/20 Clindamycin [Cleocin] 450 mg PO Q8H 7 Days #63 cap 06/14/20 Allergies Allergy/AdvReac Type Severity Reaction Status Date / Time No Known Allergies Allergy Verified 06/14/20 17:24 Review of Systems ROS Statement: Those systems with pertinent positive or pertinent negative responses have been documented in the HPI. ROS Other: All systems not noted in ROS Statement are negative. Past Medical History Past Medical History: COPD, GERD/Reflux, GI Bleed, Hyperlipidemia, Hypertension, Liver Disease, Pneumonia, Prostate Disorder Additional Past Medical History / Comment(s): ETOH ABUSE RECURRENT PANCREATITIS, ALCOHOLIC HEPATITIS, NEUROPATHY BILATERAL FEET SINCE BACK SURGERY, hx of CHRONIC URINARY RETENTION DUE TO BACK PROBLEMS-SELF CATHS, CHRONIC L HYDROURETERONEPHROSIS D/T REFLUX, CHRONIC LOW BACK PAIN, HAS MORPHINE PAIN PUMP, History of Any Multi-Drug Resistant Organisms: None Reported Past Surgical History: Back Surgery, Cholecystectomy, Orthopedic Surgery Additional Past Surgical History / Comment(s): EGDS, colonoscopy, bronchoscopy, BACK surgeries with TITANIUM PLATES MILTON and CAGES, KIDNEY STONES removed per pt, SPINAL CORD STIMULATOR PLACED AND REMOVED ANCHORS REMAIN, ISMAEL KNEE ARTHROSCOPIES, PINKY FINGER RT HAND REATTATCHED. Past Anesthesia/Blood Transfusion Reactions: No Reported Reaction Past Psychological History: Anxiety, Depression Smoking Status: Current every day smoker Past Alcohol Use History: Occasional Past Drug Use History: None Reported - Past Family History Father Family Medical History: Diabetes Mellitus Additional Family Medical History / Comment(s): Mother Family Medical History: Dementia, Hyperlipidemia, Hypertension Additional Family Medical History / Comment(s): Mother is living. General Exam - General Exam Comments Initial Comments: GENERAL: Patient is well-developed and well-nourished. Patient is nontoxic and well- hydrated and is in mild distress. ENT: Neck is soft and supple. No significant lymphadenopathy is noted. Oropharynx is clear. Moist mucous membranes. Neck has full range of motion without eliciting any pain. EYES: The sclera were anicteric and conjunctiva were pink and moist. Extraocular movements were intact and pupils were equal round and reactive to light. Eyelids were unremarkable. PULMONARY: Unlabored respirations. Good breath sounds bilaterally. No audible rales rhonchi or wheezing was noted. CARDIOVASCULAR: There is a regular rate and rhythm without any murmurs gallops or rubs. ABDOMEN: Soft and nontender with normal bowel sounds. SKIN: Skin is clear with no lesions or rashes and otherwise unremarkable. NEUROLOGIC: Patient is alert and oriented x3. Cranial nerves II through XII are grossly intact. Motor and sensory are also intact. Normal speech, volume and content. Symmetrical smile. MUSCULOSKELETAL: Normal extremities with adequate strength and full range of motion. No lower extremity swelling or edema. No calf tenderness. LYMPHATICS: No significant lymphadenopathy is noted PSYCHIATRIC: Normal psychiatric evaluation. Limitations: no limitations Course Vital Signs 07/19/20 07/19/20 13:51 15:05 Temperature 99.0 F Pulse Rate 112 H 97 Respiratory 18 18 Rate Blood Pressure 151/97 134/93 O2 Sat by Pulse 98 99 Oximetry Medical Decision Making - Medical Decision Making EKG shows sinus tachycardia at 106 bpm MI interval 170 QRS 78 QT interval is 366 QTC is 46 per patient's EKG shows no ST segment elevation or depression. Chest x-ray shows no acute abnormality. I spoke with Dr. garcia and he agreed to admit the patient admitted the patient consult cardiology. - Lab Data Result diagrams: 07/19/20 14:20 07/19/20 14:20 Lab Results 07/19/20 07/19/20 07/19/20 Range/Units 14:20 14:20 14:20 WBC 6.4 (3.8-10.6) k/uL RBC 3.99 L (4.30-5.90) m/uL Hgb 13.0 (13.0-17.5) gm/dL Hct 38.5 L (39.0-53.0) % MCV 96.4 (80.0-100.0) fL MCH 32.5 (25.0-35.0) pg MCHC 33.7 (31.0-37.0) g/dL RDW 16.1 H (11.5-15.5) % Plt Count 267 (150-450) k/uL MPV 7.5 Neutrophils % 85 % Lymphocytes % 8 % Monocytes % 6 % Eosinophils % 1 % Basophils % 1 % Neutrophils # 5.5 (1.3-7.7) k/uL Lymphocytes # 0.5 L (1.0-4.8) k/uL Monocytes # 0.4 (0-1.0) k/uL Eosinophils # 0.0 (0-0.7) k/uL Basophils # 0.0 (0-0.2) k/uL Anisocytosis Slight PT 11.1 (9.0-12.0) sec INR 1.0 (<1.2) APTT 25.2 (22.0-30.0) sec Sodium 128 L (137-145) mmol/L Potassium 3.9 (3.5-5.1) mmol/L Chloride 91 L (98-107) mmol/L Carbon Dioxide 27 (22-30) mmol/L Anion Gap 10 mmol/L BUN 7 L (9-20) mg/dL Creatinine 0.96 (0.66-1.25) mg/dL Est GFR (CKD-EPI)AfAm >90 (>60 ml/min/1.73 sqM) Est GFR (CKD-EPI)NonAf >90 (>60 ml/min/1.73 sqM) Glucose 136 H (74-99) mg/dL Calcium 8.4 (8.4-10.2) mg/dL Magnesium 1.3 L (1.6-2.3) mg/dL Total Bilirubin 0.7 (0.2-1.3) mg/dL AST 38 (17-59) U/L ALT 22 (4-49) U/L Alkaline Phosphatase 220 H (38-126) U/L Troponin I (0.000-0.034) ng/mL NT-Pro-B Natriuret Pep pg/mL Total Protein 6.5 (6.3-8.2) g/dL Albumin 3.0 L (3.5-5.0) g/dL 07/19/20 07/19/20 Range/Units 14:20 14:20 WBC (3.8-10.6) k/uL RBC (4.30-5.90) m/uL Hgb (13.0-17.5) gm/dL Hct (39.0-53.0) % MCV (80.0-100.0) fL MCH (25.0-35.0) pg MCHC (31.0-37.0) g/dL RDW (11.5-15.5) % Plt Count (150-450) k/uL MPV Neutrophils % % Lymphocytes % % Monocytes % % Eosinophils % % Basophils % % Neutrophils # (1.3-7.7) k/uL Lymphocytes # (1.0-4.8) k/uL Monocytes # (0-1.0) k/uL Eosinophils # (0-0.7) k/uL Basophils # (0-0.2) k/uL Anisocytosis PT (9.0-12.0) sec INR (<1.2) APTT (22.0-30.0) sec Sodium (137-145) mmol/L Potassium (3.5-5.1) mmol/L Chloride (98-107) mmol/L Carbon Dioxide (22-30) mmol/L Anion Gap mmol/L BUN (9-20) mg/dL Creatinine (0.66-1.25) mg/dL Est GFR (CKD-EPI)AfAm (>60 ml/min/1.73 sqM) Est GFR (CKD-EPI)NonAf (>60 ml/min/1.73 sqM) Glucose (74-99) mg/dL Calcium (8.4-10.2) mg/dL Magnesium (1.6-2.3) mg/dL Total Bilirubin (0.2-1.3) mg/dL AST (17-59) U/L ALT (4-49) U/L Alkaline Phosphatase (38-126) U/L Troponin I <0.012 (0.000-0.034) ng/mL NT-Pro-B Natriuret Pep 278 pg/mL Total Protein (6.3-8.2) g/dL Albumin (3.5-5.0) g/dL Disposition Clinical Impression: Unstable angina pectoris Disposition: ADMITTED IP TO THIS HOSP Referrals: Kerri Quinones MD [Primary Care Provider] - 1-2 days Time of Disposition: 15:51
[2020-07-19] MEDS: MAGNESIUM SULFATE-D5W PMX 1 GM in DEXTROSE/WATER 1 100ML.BAG IVPB SCH ×2 (15:59→17:17)
[2020-07-19] MEDS ORDERED: NITROGLYCERIN SL TABS 0.4 MG TAB SUBLINGUAL PRN (16:49)
[2020-07-19] MEDS ORDERED: HEPARIN SODIUM,PORCINE 5,000 UNIT/ML 1 ML VIAL IV ONE (16:49)
[2020-07-19] MEDS ORDERED: HEPARIN SOD,PORK IN 0.45% NACL 25,000 UNIT in 0.45% NACL 1 250ML.BAG IV SCH (17:00)
--- NOTE | 2020-07-19 17:33 | CT ---
EXAMINATION TYPE: CT chest angio for PE DATE OF EXAM: 07/19/2020 COMPARISON: 04/01/2020 HISTORY: Mid to left sided chest pain. CT DLP: 277.2 mGycm Automated exposure control for dose reduction was used. CONTRAST: Performed with IV Contrast, patient injected with 100 mL of Isovue 370. There are 3-D post processed images. There is some mild interstitial infiltrate in the right lower lobe. Heart size is normal. There is no pericardial effusion. There are no hilar masses. There is no mediastinal adenopathy. There are a few paratracheal lymph nodes that measure less than 1 cm. Thoracic aorta shows no aneurysm or dissection . There is normal contrast opacification of the pulmonary arteries. There are no filling defects. Thoracic vertebra have normal alignment. Sternum is intact. Disc spaces are fairly normal. There is n o compression fracture. There is neural stimulator in the thoracic spine. There is cortical thinning in the visualized upper pole left kidney consistent with atrophy. There is a 6 cm low-density mass that is posterior to the distal esophagus at the gastroesophageal junction. This is not clearly a hiatal hernia. IMPRESSION: No evidence of pulmonary embolism. Mild pulmonary interstitial density consistent with fibrosis. There is clearing of the bilateral pleu ral effusions and basilar atelectasis compared to old exam. There is 6 cm low-density mass at the diaphragmatic hiatus that could relate to a large hiatal hernia . This however does not have typical appearance of hiatal hernia. This appears increased in size comp ared to 03/19/2020. This should be confirmed with esophagram. Tumor mass not excluded.
[2020-07-19] MEDS ORDERED: CYCLOBENZAPRINE 10 MG TAB PO PRN (20:49)
--- NOTE | 2020-07-19 21:01 | HP ---
HISTORY AND PHYSICAL DATE OF SERVICE: 07/19/2020 CHIEF COMPLAINT: Chest pain. HISTORY OF PRESENT ILLNESS: This 49-year-old gentleman with a past medical history of multiple medical problems, including COPD, GERD, hypertension, hyperlipidemia, history of EtOH abuse, history of anxiety, depression, being followed by Dr. Kerri Quinones in the outpatient setting, was complaining of chest pain. The pain was mostly retrosternal as well as in the left side of the chest. The patient complains of leg pain and right knee pain also. Patient also had some shortness of breath. The pain was ongoing since last night. The patient apparently had a recent stress test. Because of increasing difficulty, the patient came to [facility] and was admitted for further evaluation and treatment. The patient has elevated D-dimer. The previous D-dimer was also elevated. COVID-19 was negative. Patient also has hypomagnesemia. Sodium is 128. There is no history of any fever, rigor or chills. No history of headache, loss of consciousness, seizures at this time. PAST MEDICAL HISTORY: COPD, GERD, GI bleed, hypertension, hyperlipidemia, history of chronic liver disease, history of pneumonia, history of ETOH abuse. HOME MEDICATIONS: Hydrocodone, cyclobenzaprine, Symbicort, Protonix, omeprazole, morphine pain pump, metoprolol, magnesium oxide, amylase, lipase, Neurontin, Lasix, ALLERGIES: NONE. FAMILY HISTORY: History of diabetes mellitus. SOCIAL HISTORY: History of alcohol and history of smoking. REVIEW OF SYSTEMS: ENT: No diminished hearing. No diminished vision. CARDIOVASCULAR SYSTEM: As mentioned earlier. RESPIRATORY SYSTEM: As mentioned earlier. GI: As mentioned earlier. : No dysuria or retention. NERVOUS SYSTEM: No numbness, weakness. ALLERGY/IMMUNOLOGY: No asthma, hayfever. MUSCULOSKELETAL: As mentioned earlier. HEMATOLOGY/ONCOLOGY: No history of anemia. ENDOCRINE: No history of diabetes, hypothyroidism. CONSTITUTIONAL: As mentioned earlier. DERMATOLOGY: Negative. RHEUMATOLOGY: Negative. PSYCHIATRY: As mentioned earlier. PHYSICAL EXAMINATION: Patient alert and oriented x3. Pulse 89, blood pressure 117/89, respiration 18, temperature 98.2, pulse ox 100% on room air. HEENT: Conjunctivae normal. Oral mucosa moist. NECK: No jugular venous distention. No carotid bruit. No lymph node enlargement. CARDIOVASCULAR SYSTEM: S1, S2 muffled. No S3. No S4. RESPIRATORY SYSTEM: Breath sounds diminished at the bases. No rhonchi. No crackles. ABDOMEN: Soft, non-tender. No mass palpable. LEGS: No edema. No swelling. NERVOUS SYSTEM: Higher functions as mentioned earlier. Moves all 4 limbs. No focal motor or sensory deficit. LYMPHATICS: No lymph node palpable in neck, axillae or groin. SKIN: No ulcer, rash, bleeding. JOINTS: No active deforming arthropathy. LABS: WBC 6.3, hemoglobin is 13. D-dimer is 1.8. Sodium 128. ASSESSMENT: 1. Chest pain; rule out unstable angina. 2. Elevated D-dimer; rule out pulmonary embolism. 3. Hyponatremia. 4. Hypomagnesemia. 5. Hypoalbuminemia. 6. History of chronic obstructive pulmonary disease. 7. Gastroesophageal reflux disease. 8. History of gastrointestinal bleed. 9. Hypertension. 10.Hyperlipidemia. 11.History of chronic liver disease, possibly alcoholic liver disease. 12.History of prostate disorder. 13.History of EtOH abuse. 14.History of chronic pancreatitis. 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 16.History of chronic back pain, degenerative joint disease, chronic pain syndrome and morphine pump. 17.History of cholecystectomy. 18.History of anxiety, depression. 19.History of nicotine dependence. 20.History of EtOH. 21.FULL CODE. RECOMMENDATIONS AND DISCUSSION: In this 49-year-old gentleman who presented with multiple complex medical issues, we will monitor the patient closely, continue the current medications, continue symptomatic treatment. Will obtain a cardiology consultation. We will resume the home medications. I would also perform repeat labs. I would also recommend a CT angio of the chest to rule out the possibility of pulmonary embolism. Overall prognosis guarded because of multiple complex medical issues. Further recommendations to follow. A copy of this dictation is being forwarded to Dr. Kerri Quinones, who is the primary physician. PENNY / DIO: [id number] / SAMARA
[2020-07-19] MEDS: NITROGLYCERIN OINT 1 INCH/GM PACKET TOPICAL SCH ×2 (21:54→23:28)
[2020-07-19] MEDS: METOPROLOL TARTRATE 25 MG TAB PO SCH (22:50)
[2020-07-19] MEDS: PANTOPRAZOLE 40 MG TABLET PO SCH (22:50)
[2020-07-19] MEDS: HYDROcodone/APAP 5-325MG 1 EACH TAB PO SCH (22:51)
[2020-07-19] MEDS: GABAPENTIN 400 MG CAP PO SCH (22:51)
[2020-07-20 03:43] VITALS: TEMP 98
[2020-07-20] MEDS: NITROGLYCERIN OINT 1 INCH/GM PACKET TOPICAL SCH (04:14)
[2020-07-20] MEDS ORDERED: SYMBICORT 160-4.5 MCG INHALER INHALATION SCH (08:00)
[2020-07-20 08:03] VITALS: BP 120/86; PULSE 82; RESP 16
[2020-07-20] MEDS: LIPASE PO SCH ×2 (08:42→14:03)
[2020-07-20] MEDS: AMYLASE PO SCH ×2 (08:42→14:03)
[2020-07-20] MEDS: [UNRECOGNIZED DRUG - OTHER] PO SCH ×2 (08:42→14:03)
[2020-07-20] MEDS: PROTEASE PO SCH ×2 (08:42→14:03)
[2020-07-20] MEDS: HYDROcodone/APAP 5-325MG 1 EACH TAB PO SCH (08:44)
[2020-07-20] MEDS: GABAPENTIN 400 MG CAP PO SCH (08:45)
[2020-07-20] MEDS: PANTOPRAZOLE 40 MG TABLET PO SCH (08:45)
[2020-07-20] MEDS: METOPROLOL TARTRATE 25 MG TAB PO SCH (08:45)
[2020-07-20] MEDS ORDERED: ASPIRIN 325 MG TAB PO SCH (09:00)
[2020-07-20] MEDS ORDERED: NICOTINE 21MG/24HR PATCH TRANSDERM SCH (09:00)
[2020-07-20] MEDS ORDERED: MAGNESIUM OXIDE 400 MG TAB PO SCH (09:00)
[2020-07-20] MEDS ORDERED: PANTOPRAZOLE 40 MG TABLET PO SCH (09:00)
[2020-07-20 09:17] LABS: Basophils # (A) 0.03 X 10*3/uL (0.00-0.10); Basophils % (A) 0.8 %; Eosinophils # (A) 0.02 X 10*3/uL (0.04-0.35); Eosinophils % (A) 0.5 %; HCT 32.7 % (39.6-50.0); HGB 11.3 g/dL (13.0-17.0); Lymphocytes # (A) 0.84 X 10*3/uL (0.90-5.00); Lymphocytes % (A) 21.1 %; MCH 32.3 pg (27.0-32.0); MCHC 34.6 g/dL (32.0-37.0); MCV 93.4 fL (80.0-97.0); Mean Platelet Volume 10.5 fL (9.5-12.2); Monocytes # (A) 0.47 X 10*3/uL (0.20-1.00); Monocytes % (A) 11.8 %; Neutrophils # (A) 2.58 X 10*3/uL (1.80-7.70); Neutrophils % (A) 64.8 %; Platelet Count 223 X 10*3/uL (140-440); RDW 16.9 % (11.5-14.5); WBC 3.98 X 10*3/uL (4.50-10.00)
[2020-07-20 09:46] LABS: African American GFR (CKD) 114.2 (60.0-200.0); Anion Gap 5.6 mmol/L (4.00-12.00); Calcium 8.3 mg/dL (8.7-10.3); Carbon Dioxide 30.4 mmol/L (21.6-31.8); Chol/HDL Ratio 2.58; Non-African American GFR(CKD) 98.5 (60.0-200.0); Potassium 3.2 mmol/L (3.5-5.5)
[2020-07-20] MEDS ORDERED: DOBUTamine DRIP for NUC MED 500 MG in DEXTROSE/WATER 1 250ML.BAG IV PRN (09:57)
[2020-07-20] MEDS ORDERED: POTASSIUM CHLORIDE ER 20 MEQ TAB.ER PO STA (10:15)
--- NOTE | 2020-07-20 10:22 | P.CRDCN ---
History of Present Illness Consult date: 07/20/20 History of present illness: CHIEF COMPLAINT: Chest pain HISTORY OF PRESENT ILLNESS: This is a 49-year-old male with a past medical history significant for hypertension, GERD, COPD, nicotine dependence, and alcohol abuse. Patient follows in the office with Dr. Almodovar. We have been asked to see the patient in consultation for chest pain. Patient examined this morning at the bedside. Patient states on Sunday he began having chest pain. He states it felt like a sharp pain in the middle of his chest. He was also diaphoretic. He denied any radiation of the pain. Denied any shortness of breath. Denied nausea or vomiting. He states the pain lasted for a couple hours and then went away. He states the next day he had similar symptoms again so he came to the emergency room for further evaluation. At the time of exam ination, the patient denies any chest pain or pressure. Patient had a Lexiscan stress test performed in October 2019 which was negative for stress-induced ischemia. Echocardiogram completed in August 2019 revealed ejection fraction 55%. DIAGNOSTICS: EKG reveals sinus tachycardia with ST depression in anterior leads, unchanged from previous EKG Chest xray negative for acute process Chest CTA: Negative for pulmonary embolism Laboratory data: WBC 3.98. Hemoglobin 11.3. Platelet count 223. Sodium 133. Potassium 3.2. Magnesium 1.3. BUN 9. Creatinine 0.9. Troponin negative 3. Current home cardiac medications include metoprolol 25 mg twice a day, losartan 50 mg daily REVIEW OF SYSTEMS: At the time of my exam: CONSTITUTIONAL: Denies fever or chills. HEENT: Denies blurred vision, vision changes, or eye pain. Denies hemoptysis CARDIOVASCULAR: Denies chest pain, orthopnea, PND or palpitations RESPIRATORY: No shortness of breath. GASTROINTESTINAL: Denies abdominal pain. Denies nausea or vomiting. HEMATOLOGIC: Denies bleeding disorders. GENITOURINARY: Denies any blood in urine. SKIN: Denies pruitis. Denies rash. PHYSICAL EXAM: VITAL SIGNS: Reviewed. GENERAL: Well-developed in no acute distress. HEENT: Head is normocephalic. Pupils are equal, round. Sclerae anicteric. Mucous membranes of the mouth are moist. Neck supple. No JVD or thyromegaly LUNGS: Respirations even and unlabored. Lungs essentially clear to auscultation bilaterally. HEART: Regular rate and rhythm. S1 and S2 heard. ABDOMEN: Soft. Nondistended. Nontender. EXTREMITIES: Normal range of motion. No clubbing or cyanosis. Peripheral pulses intact. No lower extremity edema NEUROLOGIC: Awake and alert. Oriented x 3. ASSESSMENT: Chest pain Hypertension COPD GERD Nicotine dependence, patient smokes 2 packs per day Alcohol abuse Recurrent pancreatitis Hypokalemia Hypomagnesemia PLAN: An acute coronary event has been ruled out Obtain 2-D echo to assess cardiac structure and function Patient to undergo dobutamine stress test today Replace potassium Replace magnesium Smoking cessation encouraged Recommend abstinence from alcohol Further recommendations pending patient's course Nurse practitioner note has been reviewed by physician. Signing provider agrees with the documented findings, assessment, and plan of care. Past Medical History Past Medical History: COPD, GERD/Reflux, GI Bleed, Hyperlipidemia, Hypertension, Liver Disease, Pneumonia, Prostate Disorder Additional Past Medical History / Comment(s): ETOH ABUSE RECURRENT PANCREATITIS, ALCOHOLIC HEPATITIS, NEUROPATHY BILATERAL FEET SINCE BACK SURGERY, hx of CHRONIC URINARY RETENTION DUE TO BACK PROBLEMS-SELF CATHS, CHRONIC L HYDROURETERONEPH ROSIS D/T REFLUX, CHRONIC LOW BACK PAIN, HAS MORPHINE PAIN PUMP, History of Any Multi-Drug Resistant Organisms: None Reported Past Surgical History: Back Surgery, Cholecystectomy, Orthopedic Surgery Additional Past Surgical History / Comment(s): EGDS, colonoscopy, bronchoscopy, BACK surgeries with TITANIUM PLATES MIL[place] and CAGES, KIDNEY STONES removed per pt, SPINAL CORD STIMULATOR PLACED AND REMOVED ANCHORS REMAIN, ISMAEL KNEE ARTHROSCOPIES, PINKY FINGER RT HAND REATTATCHED. Past Anesthesia/Blood Transfusion Reactions: No Reported Reaction Past Psychological History: Anxiety, Depression Additional Psychological History / Comment(s): PT LIVES AT HOME WITH in a 2 story home that has 3 porch steps/7 steps to 2nd floor.. 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 NO SERVICE.. occasionally uses either cane, walker or w/c also has shower chair and raised toilet seat. He does drive, Smoking Status: Current every day smoker Past Alcohol Use History: Occasional Additional Past Alcohol Use History / Comment(s): started smoking at age 14 Smokes 2 packs per day; ETOH ABUSE-patient states he has past hx of heavy drinking but states he now drinks way less Past Drug Use History: None Reported Additional Drug Use History / Comment(s): Pt denies marijuana/street drug use. - Past Family History Father Family Medical History: Diabetes Mellitus Additional Family Medical History / Comment(s): Mother Family Medical History: Dementia, Hyperlipidemia, Hypertension Additional Family Medical History / Comment(s): Mother is living. Medications and Allergies Home Medications Medication Instructions Recorded Confirmed Type Magnesium Oxide [Mag-Ox] 400 mg PO DAILY 09/18/17 07/19/20 History Cyclobenzaprine HCl 10 mg PO BID PRN 11/25/19 07/19/20 History Gabapentin [Neurontin] 400 mg PO TID 11/25/19 07/19/20 History HYDROcodone/APAP 5-325MG [[place] 1 tab PO BID 11/25/19 07/19/20 History 5-325] Lipase/Protease/Amylase [Rebel Belcher 48,000 units PO AC-TID 11/25/19 07/19/20 History 24,000 Units Capsule] Losartan [Cozaar] 50 mg PO DAILY 11/25/19 07/19/20 History Metoprolol Tartrate [Lopressor] 25 mg PO BID 11/25/19 07/19/20 History Morphine Pain Pump 1 dose INTRATHECA CONTINUOUS 11/25/19 07/19/20 History Omeprazole [PriLOSEC] 40 mg PO DAILY 11/25/19 07/19/20 History Pantoprazole Sodium [Protonix] 40 mg PO BID 30 Days #60 tablet. 04/07/20 07/19/20 Rx Budesonide/Formoterol Fumarate 2 puff INHALATION RT-BID 06/14/20 07/19/20 History [Symbicort 160-4.5 Mcg Inhaler] Ergocalciferol (Vitamin D2) 1,250 mcg PO MO 06/14/20 07/19/20 History [Drisdol (50,000 Iu)] Furosemide [Lasix] 20 mg PO BID 06/14/20 07/19/20 History Allergies Allergy/AdvReac Type Severity Reaction Status Date / Time No Known Allergies Allergy Verified 06/14/20 17:24 Physical Exam Vitals: Vital Signs Temp Pulse Pulse Resp BP BP Pulse Ox 07/20/20 08:00 82 16 07/20/20 07:30 99 07/20/20 07:00 98.0 F 82 16 120/86 99 07/20/20 02:05 98.0 F 65 101/64 99 03/01/21 21:00 98.7 F 88 128/88 100 07/19/20 19:16 89 18 117/89 100 07/19/20 18:00 98.2 F 93 18 122/87 97 07/19/20 17:24 93 18 141/92 99 07/19/20 16:02 93 18 138/96 99 07/19/20 15:05 97 18 134/93 99 07/19/20 13:51 99.0 F 112 H 18 151/97 98 Intake and Output 07/19/20 07/20/20 07/20/20 22:59 06:59 14:59 Intake Total 60 Balance 60 Intake: Oral 60 Other: Voiding Method Toilet Toilet Toilet # Voids 0 0 Weight 77.111 kg Results 07/20/20 04:18 07/20/20 04:18 Cardiac Enzymes 07/19/20 07/19/20 07/19/20 Range/Units 14:20 14:20 17:16 AST 38 (17-59) U/L Troponin I <0.012 <0.012 (0.000-0.034) ng/mL 07/19/20 Range/Units 20:13 AST (17-59) U/L Troponin I <0.012 (0.000-0.034) ng/mL Coagulation 07/19/20 07/19/20 Range/Units 14:20 23:32 PT 11.1 (9.0-12.0) sec APTT 25.2 50.8 H (22.0-30.0) sec Lipids 07/20/20 Range/Units 04:18 Triglycerides 80.0 (0.0-149.0) mg/dL Cholesterol 103 (0-200) mg/dL HDL Cholesterol 40.0 (40.0-60.0) mg/dL Cholesterol/HDL Ratio 2.58 CBC 07/19/20 07/20/20 Range/Units 14:20 04:18 WBC 6.4 3.98 L (3.8-10.6) k/uL RBC 3.99 L 3.50 L (4.30-5.90) m/uL Hgb 13.0 11.3 L (13.0-17.5) gm/dL Hct 38.5 L 32.7 L (39.0-53.0) % Plt Count 267 223 (150-450) k/uL Comprehensive Metabolic Panel 07/19/20 07/20/20 Range/Units 14:20 04:18 Sodium 128 L 133 L (137-145) mmol/L Potassium 3.9 3.2 L (3.5-5.1) mmol/L Chloride 91 L 97 (98-107) mmol/L Carbon Dioxide 27 30.4 (22-30) mmol/L BUN 7 L 9.0 (9-20) mg/dL Creatinine 0.96 0.9 (0.66-1.25) mg/dL Glucose 136 H 107 (74-99) mg/dL Calcium 8.4 8.3 L (8.4-10.2) mg/dL AST 38 (17-59) U/L ALT 22 (4-49) U/L Alkaline Phosphatase 220 H (38-126) U/L Total Protein 6.5 (6.3-8.2) g/dL Albumin 3.0 L (3.5-5.0) g/dL Current Medications Generic Name Dose Route Start Last Admin Trade Name Freq PRN Reason Stop Dose Admin Hydrocodone Bitart/Acetaminophen 1 each 07/19/20 21:00 07/20/20 08:44 Hydrocodone/Apap 5-325mg 1 Each Tab PO 1 each BID JANE Administration Aspirin 325 mg 07/20/20 09:00 07/20/20 08:45 Aspirin 325 Mg Tab PO 325 mg DAILY JANE Administration Budesonide/Formoterol Fumarate 2 puff 07/20/20 08:00 07/20/20 07:26 Symbicort 160-4.5 Mcg Inhaler INHALATION 2 puff RT-BID JANE Administration Cyclobenzaprine HCl 10 mg 07/19/20 20:49 Cyclobenzaprine 10 Mg Tab PO BID PRN Pain Gabapentin 400 mg 07/19/20 22:00 07/20/20 08:45 Gabapentin 400 Mg Cap PO 400 mg TID JANE Administration Heparin Sodium/Sodium Chloride 250 mls @ 9.253 mls/hr 07/19/20 17:00 07/19/20 17:23 25,000 unit/ Sodium Chloride IV 12 units/kg/hr .Q24H JANE 9.253 mls/hr Administration Protocol 12 UNITS/KG/HR Magnesium Oxide 400 mg 07/20/20 09:00 07/20/20 08:45 Magnesium Oxide 400 Mg Tab PO 400 mg DAILY [facility] Administration Metoprolol Tartrate 25 mg 07/19/20 21:00 07/20/20 08:45 Metoprolol Tartrate 25 Mg Tab PO 25 mg BID [facility] Administration Nicotine 1 patch 07/20/20 09:00 07/20/20 08:45 Nicotine 21mg/24hr Patch TRANSDERM 1 patch DAILY [facility] Administration Nitroglycerin 0.4 mg 07/19/20 16:49 Nitroglycerin Sl Tabs 0.4 Mg Tab SUBLINGUAL Q5M PRN Chest Pain Nitroglycerin 1 inch 07/19/20 19:00 07/20/20 04:14 Nitroglycerin Oint 1 Inch/Gm Packet TOPICAL Not Given Q6HR [facility] Non-Formulary Medication 48,000 units 07/20/20 07:30 07/20/20 08:42 Lipase/Protease/Amylase [eRbel Belcher 24,000 Units Capsule] PO Not Given AC-TID [facility] Pantoprazole Sodium 40 mg 07/20/20 09:00 07/20/20 08:44 Pantoprazole 40 Mg Tablet PO Not Given DAILY [facility] Pantoprazole Sodium 40 mg 07/19/20 21:00 07/20/20 08:45 Pantoprazole 40 Mg Tablet PO 40 mg BID [facility] Administration Intake and Output 07/19/20 07/20/20 07/20/20 22:59 06:59 14:59 Intake Total 60 Balance 60 Intake: Oral 60 Other: Voiding Method Toilet Toilet Toilet # Voids 0 0 Weight 77.111 kg 07/20/20 04:18 07/20/20 04:18
--- NOTE | 2020-07-20 12:31 | ECHOF ---
Referral Reason:LV function, chest pain MEASUREMENTS -------- HEIGHT: 167.6 cm WEIGHT: 77.1 kg BP: RVIDd: 2.5 cm (< 3.3) IVSd: 0.9 cm (0.6 - 1.1) LVIDd: 3.9 cm (3.9 - 5.3) LVPWd: 1.4 cm (0.6 - 1.1) IVSs: 1.3 cm LVIDs: 2.0 cm LVPWs: 1.5 cm LAESV Index (A-L): 12.57 ml/m Ao Diam: 2.5 cm (2.0 - 3.7) LA Diam: 2.5 cm (2.7 - 3.8) MV EXCURSION: 21.171 mm (> 18.000) MV EF SLOPE: 122 mm/s (70 - 150) EPSS: 1.1 cm MV E [place]: 1.02 m/s MV DecT: 219 ms MV A [place]: 0.92 m/s MV E/A Ratio: 1.10 AR PHT: 435 ms RAP: 5.00 mmHg RVSP: 9.49 mmHg FINDINGS -------- This was a technically adequate study. The left ventricular size is normal. Left ventricular wall thickness is normal. Overall left vent ricular systolic function is normal with, an EF between 55 - 60 %. Normal LAP Grade 1 Diastolic Dys function. The right ventricle is normal in size. The left atrial size is normal. Normal LA size by volume 22+/-6 ml/m2. The right atrial size is normal. The aortic valve is trileaflet and appears structurally normal. Trace amount of aortic regurgitatio n. The mitral valve is normal. There is trace mitral regurgitation. The tricuspid valve appears structurally normal. Trace tricuspid regurgitation present. Right luiz tricular systolic pressure is normal at < 35 mmHg. There is no pulmonic regurgitation present. The aortic root size is normal. Normal inferior vena cava with normal inspiratory collapse consistent with estimated right atrial pre ssure of 5 mmHg. There is no pericardial effusion. CONCLUSIONS -------- 1. The left ventricular size is normal. 2. Left ventricular wall thickness is normal. 3. Overall left ventricular systolic function is normal with, an EF between 55 - 60 %. 4. Normal LAP Grade 1 Diastolic Dysfunction. 5. Trace amount of aortic regurgitation. 6. There is trace mitral regurgitation. 7. Trace tricuspid regurgitation present. 8. There is no pericardial effusion. [employer] TECHNICAL DIRECTOR: Sara Segura RDCS
[2020-07-20] MEDS: MAGNESIUM SULFATE-D5W PMX 1 GM in DEXTROSE/WATER 1 100ML.BAG IVPB SCH ×2 (12:51→14:06)
--- NOTE | 2020-07-20 13:34 | ECHOS ---
STRESS ECHOCARDIOGRAM DOBUTAMINE STRESS ECHOCARDIOGRAM: LUMASON: N/A Vial INDICATIONS: Chest pain. MEDICATIONS: BASELINE HEART RATE: 71 BASELINE BLOOD PRESSURE: 169/73 MAXIMUM HEART RATE: 144 MAXIMUM BLOOD PRESSURE: 166/60 85% MPHR: 144 100% MPHR: 169 METS: MAXIMUM STAGE REACHED: 40 mcg TOTAL EXERCISE TIME: 13:10 CLINICAL INFORMATION: STRESS DATA: Heart rate 71, pressure is 169/73 mmHg. Baseline EKG showed sinus mechanism. Dobutamine infusion at a dose of 10 mcg/kg per minute was initiated and increased to 40 mcg/kg per minute per protocol. Max heart rate was 144, which is about 85% of maximum predicted heart rate with maximum blood pressure of wall 166/60 mmHg. Clinically, the patient did not have any symptoms. The EKG did not show any significant ST or T-wave abnormalities concerning for ischemia. ECHOCARDIOGRAM IMAGES: On echocardiogram images from parasternal long axis view, parasternal short axis view, apical 4 chamber and apical 2 chambers were obtained as the baseline images, at low dose dobutamine infusion, at the peak of the heart rate as well as on recovery. The echocardiogram images did not show any evidence of wall motion abnormalities concerning for ischemia. CONCLUSION: 1. Normal EKG in response to dobutamine. 2. Normal echocardiogram in response to dobutamine. 3. Essentially normal dobutamine stress echocardiogram for the patient. MMODL / IJN: [id number] /
[2020-07-20 13:35] VITALS: BMI 27.4
--- NOTE | 2020-07-21 09:07 | P.DS ---
Providers Date of admission: 07/19/20 16:49 Expected date of discharge: 07/20/20 Attending physician: Ananda Chatman MD Consults: 07/19/20 16:49 Consult Physician Urgent Consulting Provider: [facility] Consult Reason/Comments: Unstable angina Do you want consulting provider notified?: Yes Primary care physician: Kerri Quinones Hospital Course: Final diagnosis Chest pain, rule out unstable angina Elevated d-dimer, ruled out pulmonary embolism Hyponatremia Hypomagnesemia Hypoalbuminemia History of chronic obstructive pulmonary disease Gastroesophageal reflux disease history of gastrointestinal bleed Hypertension Hyperlipidemia History of chronic liver disease, possibly alcoholic liver disease history of prostate disorder history of EtOH abuse history of chronic pancreatitis 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 Patient will follow-up with Dr. Kerri Quinones in the outpatient setting upon discharge. Total time taken is greater than 35 minutes. Hospital course This is a 49-year-old male who was recently admitted with chest pain that is mostly retrosternal as well as left side and was being closely monitored. Patient is being closely monitored and evaluated by cardiology and undergoing a stress echo. Stress echo was negative and LV function is normal with an EF of 55-60% with normal LEEP grade 1 diastolic dysfunction with trace of mitral regurgitation and trace of tricuspid regurgitation present. Patient will follow-up with cardiology outpatient. Patient's magnesium was slightly on the lower side and being replaced. Patient instructed to follow-up with primary care provider and recommended repeat labs to monitor electrolytes. Patient also had a CT of the chest showing no evidence of pulmonary embolism with mild pulmonary interstitial densities consistent with fibrosis. Patient also inst ructed to refrain from any alcohol intake. Currently no reports of chest pain, shortness of breath, or palpitations. Patient is afebrile. No reports of nausea or vomiting and patient is tolerating diet. Patient will be discharged home today. Guarded prognosis. On exam vital signs are stable. Cardio S1, S2 are muffled. Respiratory system shows diminished breath sounds at the bases with no wheezing or rhonchi noted. Abdomen is soft and nontender. Nervous system shows no focal deficits. Please refer to medication reconciliation sheet for a list of medications. Patient Condition at Discharge: Stable Plan - Discharge Summary New Discharge Prescriptions: Continue Magnesium Oxide [Mag-Ox] 400 mg PO DAILY Metoprolol Tartrate [Lopressor] 25 mg PO BID HYDROcodone/APAP 5-325MG [[place] 5-325] 1 tab PO BID Cyclobenzaprine HCl 10 mg PO BID PRN PRN Reason: Pain Lipase/Protease/Amylase [Rebel [place] 24,000 Units Capsule] 48,000 units PO AC- TID Gabapentin [Neurontin] 400 mg PO TID Omeprazole [PriLOSEC] 40 mg PO DAILY Morphine Pain Pump 1 dose INTRATHECA CONTINUOUS Pantoprazole Sodium [Protonix] 40 mg PO BID 30 Days #60 tablet. Ergocalciferol (Vitamin D2) [Drisdol (50,000 Iu)] 1,250 mcg PO MO Budesonide/Formoterol Fumarate [Symbicort 160-4.5 Mcg Inhaler] 2 puff INHALATION RT-BID Discontinued Losartan [Cozaar] 50 mg PO DAILY Furosemide [Lasix] 20 mg PO BID Discharge Medication List Magnesium Oxide [Mag-Ox] 400 mg PO DAILY 09/18/17 [History] Cyclobenzaprine HCl 10 mg PO BID PRN 11/25/19 [History] Gabapentin [Neurontin] 400 mg PO TID 11/25/19 [History] HYDROcodone/APAP 5-325MG [[place] 5-325] 1 tab PO BID 11/25/19 [History] Lipase/Protease/Amylase [Rebel [place] 24,000 Units Capsule] 48,000 units PO AC-TID 11/25/19 [History] Metoprolol Tartrate [Lopressor] 25 mg PO BID 11/25/19 [History] Morphine Pain Pump 1 dose INTRATHECA CONTINUOUS 11/25/19 [History] Omeprazole [PriLOSEC] 40 mg PO DAILY 11/25/19 [History] Pantoprazole Sodium [Protonix] 40 mg PO BID 30 Days #60 tablet. 04/07/20 [Rx] Budesonide/Formoterol Fumarate [Symbicort 160-4.5 Mcg Inhaler] 2 puff INHALATION RT-BID 06/14/20 [History] Ergocalciferol (Vitamin D2) [Drisdol (50,000 Iu)] 1,250 mcg PO MO 06/14/20 [History] Follow up Appointment(s)/Referral(s): Kerri Quinones MD [Primary Care Provider] - 1-2 days (Patient is to call office or Sunday morning at 8:30 to make a same day appointment ) Patient Instructions/Handouts: Angina (DC) Activity/Diet/Wound Care/Special Instructions: Activity Limited until follow-up Follow-up with primary care provider upon discharge Follow-up cardiology outpatient Continue to hold losartan and Lasix until follow-up Continue heart healthy diet Continue to avoid alcohol intake Discharge Disposition: HOME SELF-CARE
== END 2020-07-20 15:25 | disposition home or self-care (01) ==
LOC: EC 13:45 → 6NMEDSUR 16:49
PROVIDERS: ADMIT Internal Medicine; ATTEND Internal Medicine
DX: R07.9 Chest pain, unspecified (principal); R79.89 Other specified abnormal findings of blood chemistry; E87.1 Hypo-osmolality and hyponatremia; E83.42 Hypomagnesemia; J44.9 Chronic obstructive pulmonary disease, unspecified; K21.9 Gastro-esophageal reflux disease without esophagitis; I10 Essential (primary) hypertension; E88.09 Other disorders of plasma-protein metabolism, not elsewhere classified; F10.10 Alcohol abuse, uncomplicated; F17.210 Nicotine dependence, cigarettes, uncomplicated; N42.9 Disorder of prostate, unspecified; K76.9 Liver disease, unspecified; M25.561 Pain in right knee; K86.1 Other chronic pancreatitis; E78.5 Hyperlipidemia, unspecified; E87.6 Hypokalemia; F32.9 Major depressive disorder, single episode, unspecified; F41.9 Anxiety disorder, unspecified; G89.4 Chronic pain syndrome; Z79.899 Other long term (current) drug therapy; Z79.51 Long term (current) use of inhaled steroids; Z83.3 Family history of diabetes mellitus; Z87.01 Personal history of pneumonia (recurrent); Z87.442 Personal history of urinary calculi; Z20.822 Contact with and (suspected) exposure to COVID-19; Z90.49 Acquired absence of other specified parts of digestive tract; Z87.19 Personal history of other diseases of the digestive system; Z82.49 Family history of ischemic heart disease and other diseases of the circulatory system
CPT/HCPCS: 96366 ×3; 93005 ×2; 96376; 96365; 96367; 99285; 36415; 94640; 94760; 93306; 93351; 85379; 83880; 80061; 80053; 80048; 83735 ×2; 84484; 85025 ×2; 85610; 85730; 87635; 71046; 71275; G0378 ×2; S4990; J1250; J1644 ×2; J3475 ×2; Q9967

== ENCOUNTER 2020-08-24 17:26 | Emergency (ER) | payer MEDICARE, OTHER | END 2020-08-24 18:28 | disposition left against medical advice (07) | LOC: EC 17:26 | DX: Z53.21 Procedure and treatment not carried out due to patient leaving prior to being seen by health care provider (principal) | CPT/HCPCS: 93005; 99499 ==

== ENCOUNTER 2020-09-15 15:15 | Observation (INO) | payer MEDICARE, OTHER ==
[2020-09-15] MEDS ORDERED: SODIUM CHLORIDE 0.9% 1,000 ML IV STA (16:27)
[2020-09-15] MEDS ORDERED: ONDANSETRON 4 MG/2 ML VIAL IVP STA (16:27)
[2020-09-15] MEDS ORDERED: PANTOPRAZOLE 40 MG/10 ML VIAL IVP STA (16:27)
[2020-09-15] MEDS ORDERED: SODIUM CHLORIDE 0.9% 500 ML 500 ML IV STA (16:27)
--- NOTE | 2020-09-15 16:33 | ED ---
General Adult HPI - General Chief complaint: Abdominal Pain Stated complaint: Abdominal pain Time Seen by Provider: 09/15/20 15:50 Source: patient, RN notes reviewed Mode of arrival: wheelchair Limitations: no limitations - History of Present Illness Initial comments: Patient is a pleasant 50-year-old male presenting to the emergency Department with abdominal discomfort. Onset of symptoms was several days ago. Patient septic alcohol several days ago when symptoms started. Symptoms do continue and have progressively worsened. Patient has nausea, no vomiting. Decreased oral intake. Abdominal discomfort is mostly epigastric and goes the back, similar to pancreatitis problems in the past. Patient did get morphine pump however states that does not help much. - Related Data Home Medications Medication Instructions Recorded Confirmed Magnesium Oxide [Mag-Ox] 400 mg PO DAILY 09/18/17 09/15/20 Cyclobenzaprine HCl 10 mg PO BID PRN 11/25/19 09/15/20 Gabapentin [Neurontin] 400 mg PO TID 11/25/19 09/15/20 HYDROcodone/APAP 5-325MG [[place] 1 tab PO BID 11/25/19 09/15/20 5-325] Lipase/Protease/Amylase [Rebel Belcher 48,000 units PO AC-TID 11/25/19 09/15/20 24,000 Units Capsule] Metoprolol Tartrate [Lopressor] 25 mg PO BID 11/25/19 09/15/20 Morphine Pain Pump 1 dose INTRATHECA CONTINUOUS 11/25/19 09/15/20 Omeprazole [PriLOSEC] 40 mg PO DAILY 11/25/19 09/15/20 Budesonide/Formoterol Fumarate 2 puff INHALATION RT-BID 06/14/20 09/15/20 [Symbicort 160-4.5 Mcg Inhaler] Ergocalciferol (Vitamin D2) 1,250 mcg PO MO 06/14/20 09/15/20 [Drisdol (50,000 Iu)] Furosemide [Lasix] 20 mg PO BID 09/15/20 09/15/20 Previous Rx's Medication Instructions Recorded Pantoprazole Sodium [Protonix] 40 mg PO BID 30 Days #60 tablet. 04/07/20 Allergies Allergy/AdvReac Type Severity Reaction Status Date / Time No Known Allergies Allergy Verified 09/15/20 17:27 Review of Systems ROS Statement: Those systems with pertinent positive or pertinent negative responses have been documented in the HPI. ROS Other: All systems not noted in ROS Statement are negative. Constitutional: Denies: fever Eyes: Denies: eye pain ENT: Denies: ear pain Respiratory: Denies: cough Cardiovascular: Denies: chest pain Endocrine: Reports: fatigue Gastrointestinal: Reports: as per HPI, abdominal pain, nausea. Denies: vomiting Genitourinary: Denies: dysuria Musculoskeletal: Reports: as per HPI Skin: Denies: rash Neurological: Denies: headache Past Medical History Past Medical History: COPD, GERD/Reflux, GI Bleed, Hyperlipidemia, Hypertension, Liver Disease, Pneumonia, Prostate Disorder Additional Past Medical History / Comment(s): ETOH ABUSE RECURRENT PANCREATITIS, ALCOHOLIC HEPATITIS, NEUROPATHY BILATERAL FEET SINCE BACK SURGERY, hx of CHRONIC URINARY RETENTION DUE TO BACK PROBLEMS-SELF CATHS, CHRONIC L HYDROURETERONEPHROSIS D/T REFLUX, CHRONIC LOW BACK PAIN, HAS MORPHINE PAIN PUMP, History of Any Multi-Drug Resistant Organisms: None Reported Past Surgical History: Back Surgery, Cholecystectomy, Orthopedic Surgery Additional Past Surgical History / Comment(s): EGDS, colonoscopy, bronchoscopy, BACK surgeries with TITANIUM PLATES MILTON and CAGES, KIDNEY STONES removed per pt, SPINAL CORD STIMULATOR PLACED AND REMOVED ANCHORS REMAIN, ISMAEL KNEE A RTHROSCOPIES, PINKY FINGER RT HAND REATTATCHED. Past Anesthesia/Blood Transfusion Reactions: No Reported Reaction Past Psychological History: Anxiety, Depression Smoking Status: Current every day smoker Past Alcohol Use History: Occasional Past Drug Use History: None Reported - Past Family History Father Family Medical History: Diabetes Mellitus Additional Family Medical History / Comment(s): Mother Family Medical History: Dementia, Hyperlipidemia, Hypertension Additional Family Medical History / Comment(s): Mother is living. General Exam Limitations: no limitations General appearance: alert, in no apparent distress Head exam: Present: atraumatic Eye exam: Present: normal appearance, PERRL ENT exam: Present: normal oropharynx Neck exam: Present: normal inspection Respiratory exam: Present: normal lung sounds bilaterally Cardiovascular Exam: Present: regular rate, normal rhythm GI/Abdominal exam: Present: soft, tenderness (Moderate epigastric tenderness), normal bowel sounds, other (Subcutaneous pain pump left upper abdomen). Absent: distended, guarding, rebound, rigid, pulsatile mass Extremities exam: Present: normal inspection Neurological exam: Present: alert Psychiatric exam: Present: normal affect, normal mood Skin exam: Present: normal color Course Vital Signs 09/15/20 15:44 Temperature 98.7 F Pulse Rate 92 Respiratory 17 Rate Blood Pressure 111/80 O2 Sat by Pulse 100 Oximetry Medical Decision Making - Medical Decision Making Patient reevaluated and having similar symptoms. Patient updated on results and plan. Case discussed with practitioner Evita Romero, covering with Dr. Barragan, who will admit for Dr. Yaquelin Barragan. - Lab Data Result diagrams: 09/15/20 17:03 09/15/20 17:03 Lab Results 09/15/20 09/15/20 09/15/20 Range/Units 17:03 17:03 17:03 WBC 11.3 H (3.8-10.6) k/uL RBC 4.17 L (4.30-5.90) m/uL Hgb 14.3 (13.0-17.5) gm/dL Hct 41.7 (39.0-53.0) % MCV 100.0 (80.0-100.0) fL MCH 34.4 (25.0-35.0) pg MCHC 34.4 (31.0-37.0) g/dL RDW 15.0 (11.5-15.5) % Plt Count 231 (150-450) k/uL MPV 8.1 Neutrophils % 84 % Lymphocytes % 9 % Monocytes % 5 % Eosinophils % 1 % Basophils % 1 % Neutrophils # 9.5 H (1.3-7.7) k/uL Lymphocytes # 1.0 (1.0-4.8) k/uL Monocytes # 0.6 (0-1.0) k/uL Eosinophils # 0.1 (0-0.7) k/uL Basophils # 0.1 (0-0.2) k/uL Macrocytosis Slight PT 10.0 (9.0-12.0) sec INR 0.9 (<1.2) APTT 20.7 L (22.0-30.0) sec Sodium 132 L (137-145) mmol/L Potassium 4.1 (3.5-5.1) mmol/L Chloride 94 L (98-107) mmol/L Carbon Dioxide 30 (22-30) mmol/L Anion Gap 8 mmol/L BUN 18 (9-20) mg/dL Creatinine 1.01 (0.66-1.25) mg/dL Est GFR (CKD-EPI)AfAm >90 (>60 ml/min/1.73 sqM) Est GFR (CKD-EPI)NonAf 85 (>60 ml/min/1.73 sqM) Glucose 119 H (74-99) mg/dL Calcium 9.7 (8.4-10.2) mg/dL Total Bilirubin 0.8 (0.2-1.3) mg/dL AST 27 (17-59) U/L ALT 13 (4-49) U/L Alkaline Phosphatase 141 H (38-126) U/L Total Protein 7.6 (6.3-8.2) g/dL Albumin 4.0 (3.5-5.0) g/dL Amylase 47 (30-110) U/L Lipase 168 (23-300) U/L Serum Alcohol <10 mg/dL - Radiology Data Radiology results: report reviewed (Computed tomography scan the abdomen pelvis shows possible stressors versus other.) Disposition Clinical Impression: Abdominal pain, Chronic pancreatitis, Pancreatic pseudocyst Disposition: ADMITTED IP TO THIS [facility] Is patient prescribed a controlled substance at d/c from ED?: No Referrals: Kerri Quinones MD [Primary Care Provider] - 1-2 days Decision Time: 19:31
[2020-09-15 17:36] LABS: Basophils # (A) 0.1 k/uL (0-0.2); Basophils % (A) 1 %; Eosinophils # (A) 0.1 k/uL (0-0.7); Eosinophils % (A) 1 %; HCT 41.7 % (39.0-53.0); HGB 14.3 gm/dL (13.0-17.5); Lymphocytes % (A) 9 %; MCH 34.4 pg (25.0-35.0); MCHC 34.4 g/dL (31.0-37.0); Macrocytosis Slight; Mean Platelet Volume 8.1; Monocytes # (A) 0.6 k/uL (0-1.0); Monocytes % (A) 5 %; Neutrophils # (A) 9.5 k/uL (1.3-7.7); Neutrophils % (A) 84 %; Platelet Count 231 k/uL (150-450); RBC 4.17 m/uL (4.30-5.90); WBC 11.3 k/uL (3.8-10.6)
[2020-09-15 17:47] LABS: ALT 13 U/L (4-49); AST 27 U/L (17-59); African American GFR (CKD) >90 (>60 ml/min/1.73 sqM); Alcohol <10 mg/dL; Alkaline Phosphatase 141 U/L (38-126); Amylase 47 U/L (30-110); Anion Gap 8 mmol/L; Blood Urea Nitrogen 18 mg/dL (9-20); Calcium 9.7 mg/dL (8.4-10.2); Carbon Dioxide 30 mmol/L (22-30); Chloride 94 mmol/L (98-107); Glucose 119 mg/dL (74-99); Lipase 168 U/L (23-300); Non-African American GFR(CKD) 85 (>60 ml/min/1.73 sqM); Potassium 4.1 mmol/L (3.5-5.1); Sodium 132 mmol/L (137-145); Total Bilirubin 0.8 mg/dL (0.2-1.3); Total Protein 7.6 g/dL (6.3-8.2)
[2020-09-15 18:09] LABS: INR 0.9 (<1.2); Partial Thromboplastin Time 20.7 sec (22.0-30.0)
--- NOTE | 2020-09-15 18:45 | CT ---
EXAMINATION TYPE: CT abdomen pelvis w con DATE OF EXAM: 09/15/2020 COMPARISON: 03/19/2020 HISTORY: Abdominal, left flank pain. CT DLP: 764.5 mGycm Automated exposure control for dose reduction was used. CONTRAST: Performed with IV Contrast, patient injected with 100 mL of Isovue 300. Images were obtained from the diaphragm to the floor the pelvis with IV contrast. Lung bases are clear. There is no pleural effusion. Heart size is normal. There is no pericardial eff usion. There is hiatal hernia. There is fluid collection posterior to the heart. The esophagus and th e gastroesophageal junction appeared be in normal position. Fluid collection is 9 x 7 cm. This appear s to point towards the body of the pancreas. There are clips from cholecystectomy. The bile ducts are not dilated. I see no evidence of pancreatic mass. Spleen is intact. There is no adrenal mass. Left kidney is small with cortical thinning. There is decreased excretion o f the left kidney on the delayed images. There is mild left-sided hydronephrosis. Right kidney shows normal contrast opacification. There is no retroperitoneal adenopathy. There is ectasia of the left u reter. Bladder distends smoothly. I see no evidence of bladder mass. There is no inguinal hernia. The re is no free fluid in the pelvis. Appendix is posterior and appears normal. There is no mesenteric e wang. There is no ascites or free air. There is no bowel obstruction. There is posterior fusion surge ry in the lower lumbar spine. There is neural stimulator in the thoracic and lumbar spine. The bony p kevon is intact. IMPRESSION: . Cystic fluid collection at the esophageal hiatus that could be a large pancreatic pseudocyst. This co uld be also an unusual paraesophageal hiatal hernia. This appears increased compared to old exam. Left renal atrophy and left side mild hydronephrosis and hydroureter that is probably postobstructive atrophy. Unchanged.
[2020-09-15] MEDS ORDERED: MORPHINE SULFATE 4 MG/ML SYRINGE IVP STA (19:31)
[2020-09-15] MEDS ORDERED: ONDANSETRON 4 MG/2 ML VIAL IVP PRN (19:32)
[2020-09-15] MEDS ORDERED: NALOXONE 0.4 MG/ML 1 ML VIAL IV PRN (19:32)
[2020-09-15] MEDS ORDERED: CYCLOBENZAPRINE 10 MG TAB PO PRN (21:33)
[2020-09-15] MEDS ORDERED: NON FORMULARY DRUG (Morphine Pain Pump 1 DOSE) INTRATHECA SCH (21:45)
[2020-09-15] MEDS: GABAPENTIN 400 MG CAP PO SCH (22:43)
[2020-09-15] MEDS: SODIUM CHLORIDE 0.9% 1,000 ML IV SCH (22:44)
[2020-09-16] MEDS: ACETAMINOPHEN TAB 325 MG TAB PO PRN ×2 (00:06→05:14)
[2020-09-16 03:37] VITALS: RESP 18
[2020-09-16] MEDS: SODIUM CHLORIDE 0.9% 1,000 ML IV SCH ×2 (04:02→12:30)
[2020-09-16 05:50] LABS: Appearance,Urine Cloudy (Clear); Bilirubin,Urine Negative (Negative); Blood,Urine Trace (Negative); Budding Yeast,Urine Few /hpf; Color,Urine Yellow; Glucose,Urine (UA) Negative (Negative); Hyaline Casts,Urine 5 /lpf (0-2); Hyphae Yeast, Urine Rare /hpf; Ketones,Urine 1+ (Negative); Leukocyte Esterase,Urine Large (Negative); Mucus,Urine Rare /hpf; Nitrite,Urine Negative (Negative); PH, Urine 5.5 (5.0-8.0); Protein,Urine Trace (Negative); RBC,Urine 10 /hpf (0-5); Specific Gravity,Urine 1.034 (1.001-1.035); Squamous Epithelial Cell,Urine <1 /hpf (0-4); Urobilinogen,Urine <2.0 mg/dL (<2.0); WBC,Urine 164 /hpf (0-5)
[2020-09-16] MEDS: GABAPENTIN 400 MG CAP PO SCH (07:57)
[2020-09-16] MEDS: LIPASE 5,000/PROTEASE 17,000/AMYLASE 24,000 PO SCH ×2 (07:59→14:23)
[2020-09-16] MEDS ORDERED: SYMBICORT 160-4.5 MCG INHALER INHALATION SCH (08:00)
[2020-09-16] MEDS ORDERED: PANTOPRAZOLE 40 MG/10 ML VIAL IV SCH (09:00)
[2020-09-16] MEDS ORDERED: NON FORMULARY DRUG (Omeprazole 40 MG Capsule.Dr) PO SCH (09:00)
[2020-09-16] MEDS ORDERED: PANTOPRAZOLE 40 MG TABLET PO SCH (09:00)
[2020-09-16] MEDS ORDERED: HYDROcodone/APAP 5-325MG 1 EACH TAB PO SCH (09:00)
[2020-09-16] MEDS ORDERED: METOPROLOL TARTRATE 25 MG TAB PO SCH (09:00)
[2020-09-16] MEDS ORDERED: MAGNESIUM OXIDE 400 MG TAB PO SCH (09:00)
--- NOTE | 2020-09-16 13:09 | P.GSCN ---
History of Present Illness Consult date: 09/16/20 History of present illness: CHIEF COMPLAINT: Abdominal pain HISTORY OF PRESENT ILLNESS: This is a 50-year-old male with a known history of alcohol abuse, recurrent pancreatitis and known chronic back pain with prior back surgery and morphine pain pump. Prior surgical history includes cholecystectomy. Patient presented to the emergency room with complaints of epigastric abdominal pain that radiates to his back for the last 2 days. It's been associated with nausea. He did have a formed stool yesterday. The last alcoholic drink was about 4 days ago. He does report a prior history of EGD with Dr. Kellogg in March 2020 that did reveal severe ulcerative esophagitis involving the mid and distal esophagus and a small hiatal hernia. Patient had computed tomography scan of the abdomen and pelvis showing cystic fluid collection at the esophageal hiatus that could be a large pancreatic pseudocyst. This could be also an unusual paraesophageal hiatal hernia. This appears increased compared to old exam. Surgical service was consulted in regards to patient's possible pancreatic pseudocyst. Patient does report being told that he's had a pancreatic pseudocyst in the past. PAST MEDICAL HISTORY: See list. PAST SURGICAL HISTORY: See list. MEDICATIONS: See list. ALLERGIES: See list. SOCIAL HISTORY: No illicit drug use. REVIEW OF SYSTEMS: CONSTITUTIONAL: Denies fever or chills. HEENT: Denies blurred vision, vision changes, or eye pain. Denies hemoptysis ENDOCRINE: Denies heat or cold intolerance. CARDIOVASCULAR: Denies chest pain or pressure. RESPIRATORY: No shortness of breath. GASTROINTESTINAL: Please refer to HPI NEURO: Denies history of seizures. PSYCH: No depression or suicidal ideation HEMATOLOGIC: Denies bleeding disorders. LYMPHATIC: The patient denies any lumps and bumps around the neck. GENITOURINARY: Denies any blood in urine or increased urinary frequency. MUSCULOSKELETAL: Denies myalgias. Denies joint swelling. Denies decreased range of motion beyond patients baseline. SKIN: Denies pruitis. Denies rash. PHYSICAL EXAM: VITAL SIGNS: Reviewed GENERAL: Well-developed in no acute distress. HEENT: No sclera icterus. Extraocular movements grossly intact. Moist buccal mucosa. Head is atraumatic, normocephalic. Hears conversational speech. No nasal drainage. NECK: Supple without lymphadenopathy. CHEST: Non-labored respirations and equal bilateral excursions. CARDIOVASCULAR: Palpable 2+ radial pulses. ABDOMEN: Soft. Nondistended. Tenderness with palpation of the epigastric area. Palpable morphine pain pump on the left lower abdomen MUSCULOSKELETAL: No clubbing or cyanosis. NEUROLOGIC: No focal or lateralizing signs. Cranial nerves II through XII grossly intact. PSYCH: Appropriate affect. Alert and oriented to person, place and time. SKIN: Well perfused. Good skin turgor. LABORATORY DATA: WBC 11.3 hemoglobin 14.3 platelets 231 sodium 132 potassium 4.1 BUN 18 creatinine 1.01 Lipase 168 amylase 47 AST 27 ALT 13 Alk phos 141 Alcohol level less than 10 Covid, RSV and influenza screen negative IMAGING: computed tomography scan of the abdomen and pelvis showing cystic fluid collecti on at the esophageal hiatus that could be a large pancreatic pseudocyst. This could be also an unusual paraesophageal hiatal hernia. This appears increased compared to old exam. Left renal atrophy and left side mild hydronephrosis and hydroureter that is probably postobstructive atrophy. Unchanged. ASSESSMENT: 1. Epigastric abdominal pain with computed tomography scan findings showing cystic fluid collection at the esophageal hiatus that could be a large pancreatic pseudocyst or an unusual paraesophageal hiatal hernia. 2. Prior EGD with severe ulcerative esophagitis and small hiatal hernia 3. History of alcohol abuse 4. History of chronic pancreatitis 5. History of chronic back pain with prior back surgery and morphine pain pump PLAN: -Esophagram has been ordered for further evaluation of possible paraesophageal hiatal hernia -Further recommendations forthcoming per surgeon -No surgical intervention planned Thank you for this consultation Physician [employer] Coordinator note has been reviewed by physician. Signing provider agrees with the documented findings, assessment, and plan of care. Past Medical History Past Medical History: COPD, GERD/Reflux, GI Bleed, Hyperlipidemia, Hypertension, Liver Disease, Pneumonia, Prostate Disorder Additional Past Medical History / Comment(s): ETOH ABUSE RECURRENT PANCREATITIS, ALCOHOLIC HEPATITIS, NEUROPATHY BILATERAL FEET SINCE BACK SURGERY, hx of CHRONIC URINARY RETENTION DUE TO BACK PROBLEMS-SELF CATHS, CHRONIC L HYDROURETERONEPHROSIS D/T REFLUX, CHRONIC LOW BACK PAIN, HAS MORPHINE PAIN PUMP, History of Any Multi-Drug Resistant Organisms: None Reported Past Surgical History: Back Surgery, Cholecystectomy, Orthopedic Surgery Additional Past Surgical History / Comment(s): EGDS, colonoscopy, bronchoscopy, BACK surgeries with TITANIUM PLATES MILTON and CAGES, KIDNEY STONES removed per pt, SPINAL CORD STIMULATOR PLACED AND REMOVED ANCHORS REMAIN, ISMAEL KNEE ARTHROSCOPIES, PINKY FINGER RT HAND REATTATCHED. Past Anesthesia/Blood Transfusion Reactions: No Reported Reaction Past Psychological History: Anxiety, Depression Additional Psychological History / Comment(s): PT LIVES AT HOME WITH in a 2 story home that has 3 porch steps/7 steps to 2nd floor.. 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 NO SERVICE.. occasionally uses either cane, walker or w/c also has shower chair and raised toilet seat. He does drive, Smoking Status: Current every day smoker Past Alcohol Use History: Occasional Additional Past Alcohol Use History / Comment(s): started smoking at age 14 Smokes 2 packs per day; ETOH ABUSE-patient states he has past hx of heavy drinking but states he now drinks way less Past Drug Use History: None Reported Additional Drug Use History / Comment(s): Pt denies marijuana/street drug use. - Past Family History Father Family Medical History: Diabetes Mellitus Additional Family Medical History / Comment(s): Mother Family Medical History: Dementia, Hyperlipidemia, Hypertension Additional Family Medical History / Comment(s): Mother is living. Medications and Allergies Home Medications Medication Instructions Recorded Confirmed Type Magnesium Oxide [Mag-Ox] 400 mg PO DAILY 09/18/17 09/15/20 History Cyclobenzaprine HCl 10 mg PO BID PRN 11/25/19 09/15/20 History Gabapentin [Neurontin] 400 mg PO TID 11/25/19 09/15/20 History HYDROcodone/APAP 5-325MG [[place] 1 tab PO BID 11/25/19 09/15/20 History 5-325] Lipase/Protease/Amylase [Rebel Belcher 48,000 units PO AC-TID 11/25/19 09/15/20 History 24,000 Units Capsule] Metoprolol Tartrate [Lopressor] 25 mg PO BID 11/25/19 09/15/20 History Morphine Pain Pump 1 dose INTRATHECA CONTINUOUS 11/25/19 09/15/20 History Omeprazole [PriLOSEC] 40 mg PO DAILY 11/25/19 09/15/20 History Pantoprazole Sodium [Protonix] 40 mg PO BID 30 Days #60 tablet. 04/07/20 09/15/20 Rx Budesonide/Formoterol Fumarate 2 puff INHALATION RT-BID 06/14/20 09/15/20 History [Symbicort 160-4.5 Mcg Inhaler] Ergocalciferol (Vitamin D2) 1,250 mcg PO MO 06/14/20 09/15/20 History [Drisdol (50,000 Iu)] Furosemide [Lasix] 20 mg PO BID 09/15/20 09/15/20 History Allergies Allergy/AdvReac Type Severity Reaction Status Date / Time No Known Allergies Allergy Verified 09/15/20 17:27 Surgical - Exam Vital Signs Temp Pulse Resp BP Pulse Ox 98.7 F 92 17 111/80 100 09/15/20 15:44 09/15/20 15:44 09/15/20 15:44 09/15/20 15:44 09/15/20 15:44 Results - Labs 09/15/20 17:03 09/15/20 17:03 Abnormal Lab Results - Last 24 Hours (Table) 09/15/20 09/15/20 09/15/20 Range/Units 17:03 17:03 17:03 WBC 11.3 H (3.8-10.6) k/uL RBC 4.17 L (4.30-5.90) m/uL Neutrophils # 9.5 H (1.3-7.7) k/uL APTT 20.7 L (22.0-30.0) sec Sodium 132 L (137-145) mmol/L Chloride 94 L (98-107) mmol/L Glucose 119 H (74-99) mg/dL Alkaline Phosphatase 141 H (38-126) U/L Urine Protein (Negative) Urine Ketones (Negative) Urine Blood (Negative) Ur Leukocyte Esterase (Negative) Urine RBC (0-5) /hpf Urine WBC (0-5) /hpf Hyaline Casts (0-2) /lpf Urine Mucus (None) /hpf Urine Yeast (Budding) (None) /hpf 09/16/20 Range/Units 05:30 WBC (3.8-10.6) k/uL RBC (4.30-5.90) m/uL Neutrophils # (1.3-7.7) k/uL APTT (22.0-30.0) sec Sodium (137-145) mmol/L Chloride (98-107) mmol/L Glucose (74-99) mg/dL Alkaline Phosphatase (38-126) U/L Urine Protein Trace H (Negative) Urine Ketones 1+ H (Negative) Urine Blood Trace H (Negative) Ur Leukocyte Esterase Large H (Negative) Urine RBC 10 H (0-5) /hpf Urine WBC 164 H (0-5) /hpf Hyaline Casts 5 H (0-2) /lpf Urine Mucus Rare H (None) /hpf Urine Yeast (Budding) Few H (None) /hpf Microbiology - Last 24 Hours (Table) 09/16/20 05:30 Urine Culture - Preliminary Urine,Voided Diabetes panel 09/15/20 Range/Units 17:03 Sodium 132 L (137-145) mmol/L Potassium 4.1 (3.5-5.1) mmol/L Chloride 94 L (98-107) mmol/L Carbon Dioxide 30 (22-30) mmol/L BUN 18 (9-20) mg/dL Creatinine 1.01 (0.66-1.25) mg/dL Glucose 119 H (74-99) mg/dL Calcium 9.7 (8.4-10.2) mg/dL AST 27 (17-59) U/L ALT 13 (4-49) U/L Alkaline Phosphatase 141 H (38-126) U/L Total Protein 7.6 (6.3-8.2) g/dL Albumin 4.0 (3.5-5.0) g/dL Calcium panel 09/15/20 Range/Units 17:03 Calcium 9.7 (8.4-10.2) mg/dL Albumin 4.0 (3.5-5.0) g/dL Pituitary panel 09/15/20 Range/Units 17:03 Sodium 132 L (137-145) mmol/L Potassium 4.1 (3.5-5.1) mmol/L Chloride 94 L (98-107) mmol/L Carbon Dioxide 30 (22-30) mmol/L BUN 18 (9-20) mg/dL Creatinine 1.01 (0.66-1.25) mg/dL Glucose 119 H (74-99) mg/dL Calcium 9.7 (8.4-10.2) mg/dL Adrenal panel 09/15/20 Range/Units 17:03 Sodium 132 L (137-145) mmol/L Potassium 4.1 (3.5-5.1) mmol/L Chloride 94 L (98-107) mmol/L Carbon Dioxide 30 (22-30) mmol/L BUN 18 (9-20) mg/dL Creatinine 1.01 (0.66-1.25) mg/dL Glucose 119 H (74-99) mg/dL Calcium 9.7 (8.4-10.2) mg/dL Total Bilirubin 0.8 (0.2-1.3) mg/dL AST 27 (17-59) U/L ALT 13 (4-49) U/L Alkaline Phosphatase 141 H (38-126) U/L Total Protein 7.6 (6.3-8.2) g/dL Albumin 4.0 (3.5-5.0) g/dL
--- NOTE | 2020-09-16 13:32 | P.DS ---
Providers Date of admission: 09/15/20 19:32 Attending physician: Socorro Barragan Consults: 09/15/20 19:33 Consult Physician Routine Consulting Provider: Aby Lord Consult Reason/Comments: Evaluate for pseudocyst Do you want consulting provider notified?: Yes 09/16/20 10:42 Consult Physician Routine Consulting Provider: Consuelo Kellogg Consult Reason/Comments: pancreatic pseudocyst Do you want consulting provider notified?: Yes Primary care physician: [facility] Course: Please refer to my history of present illness for further details Plan - Discharge Summary Discharge Rx Participant: No New Discharge Prescriptions: New Simethicone 80 mg PO TID #30 tab.chew Continue Magnesium Oxide [Mag-Ox] 400 mg PO DAILY Metoprolol Tartrate [Lopressor] 25 mg PO BID HYDROcodone/APAP 5-325MG [[place] 5-325] 1 tab PO BID Cyclobenzaprine HCl 10 mg PO BID PRN PRN Reason: Pain Lipase/Protease/Amylase [Rebel Belcher 24,000 Units Capsule] 48,000 units PO AC- TID Gabapentin [Neurontin] 400 mg PO TID Omeprazole [PriLOSEC] 40 mg PO DAILY Morphine Pain Pump 1 dose INTRATHECA CONTINUOUS Ergocalciferol (Vitamin D2) [Drisdol (50,000 Iu)] 1,250 mcg PO MO Budesonide/Formoterol Fumarate [Symbicort 160-4.5 Mcg Inhaler] 2 puff INHALATION RT-BID Pantoprazole Sodium [Protonix] 40 mg PO BID 30 Days #60 tablet.dr Discontinued Furosemide [Lasix] 20 mg PO BID Discharge Medication List Magnesium Oxide [Mag-Ox] 400 mg PO DAILY 09/18/17 [History] Cyclobenzaprine HCl 10 mg PO BID PRN 11/25/19 [History] Gabapentin [Neurontin] 400 mg PO TID 11/25/19 [History] HYDROcodone/APAP 5-325MG [[place] 5-325] 1 tab PO BID 11/25/19 [History] Lipase/Protease/Amylase [Rebel Belcher 24,000 Units Capsule] 48,000 units PO AC-TID 11/25/19 [History] Metoprolol Tartrate [Lopressor] 25 mg PO BID 11/25/19 [History] Morphine Pain Pump 1 dose INTRATHECA CONTINUOUS 11/25/19 [History] Omeprazole [PriLOSEC] 40 mg PO DAILY 11/25/19 [History] Budesonide/Formoterol Fumarate [Symbicort 160-4.5 Mcg Inhaler] 2 puff INHALATION RT-BID 06/14/20 [History] Ergocalciferol (Vitamin D2) [Drisdol (50,000 Iu)] 1,250 mcg PO MO 06/14/20 [History] Pantoprazole Sodium [Protonix] 40 mg PO BID 30 Days #60 tablet.dr 09/16/20 [Rx] Simethicone 80 mg PO TID #30 tab.chew 09/16/20 [Rx] Follow up Appointment(s)/Referral(s): Aby Lord MD [STAFF PHYSICIAN] - 1 Week Consuelo Kellogg MD [STAFF PHYSICIAN] - 1 Week Kerri Quinones MD [Primary Care Provider] - 3 Days
--- NOTE | 2020-09-16 13:32 | P.HPIM ---
History of Present Illness 50-year-old male well-known to me from his previous hospital physician for recurrent pancreatitis and alcohol abuse does have chronic back pain and has a morphine pump came in With complaints of her severe epigastric abdominal pain w ith nausea did not vomit. Patient had a CT of the abdomen which showed paraesophageal hernia or a pancreatic pseudocyst. These findings are new. Pedal hernia appears to be bit worse. Gen. surgery evaluated the patient. Gastroenterology evaluated the patient. Patient will be started on diet and if he can tolerate full liquid diet patient will be discharged and will undergo further workup for paraesophageal hernia as an outpatient. Patient lipase is within normal limits. Patient does take pancreatic enzymes supplementations at home. Review of Systems REVIEW OF SYSTEMS: CONSTITUTIONAL: No fever, no malaise, no fatigue. HEENT: No recent visual problems or hearing problems. Denied any sore throat. CARDIOVASCULAR: No chest pain, orthopnea, PND, no palpitations, no syncope. PULMONARY: No shortness of breath, no cough, no hemoptysis. GASTROINTESTINAL: No diarrhea. NEUROLOGICAL: No headaches, no weakness, no numbness. HEMATOLOGICAL: Denies any bleeding or petechiae. GENITOURINARY: Denies any burning micturition, frequency, or urgency. MUSCULOSKELETAL/RHEUMATOLOGICAL: Denies any joint pain, swelling, or any muscle pain. ENDOCRINE: Denies any polyuria or polydipsia. The rest of the 14-point review of systems is negative. Past Medical History Past Medical History: COPD, GERD/Reflux, GI Bleed, Hyperlipidemia, Hypertension, Liver Disease, Pneumonia, Prostate Disorder Additional Past Medical History / Comment(s): ETOH ABUSE RECURRENT PANCREATITIS, ALCOHOLIC HEPATITIS, NEUROPATHY BILATERAL FEET SINCE BACK SURGERY, hx of CHRONIC URINARY RETENTION DUE TO BACK PROBLEMS-SELF CATHS, CHRONIC L HYDROURETERONEPHROSIS D/T REFLUX, CHRONIC LOW BACK PAIN, HAS MORPHINE PAIN PUMP, History of Any Multi-Drug Resistant Organisms: None Reported Past Surgical History: Back Surgery, Cholecystectomy, Orthopedic Surgery Additional Past Surgical History / Comment(s): EGDS, colonoscopy, bronchoscopy, BACK surgeries with TITANIUM PLATES MILTON and CAGES, KIDNEY STONES removed per pt, SPINAL CORD STIMULATOR PLACED AND REMOVED ANCHORS REMAIN, ISMAEL KNEE ARTHROSCOPIES, PINKY FINGER RT HAND REATTATCHED. Past Anesthesia/Blood Transfusion Reactions: No Reported Reaction Past Psychological History: Anxiety, Depression Additional Psychological History / Comment(s): PT LIVES AT HOME WITH in a 2 story home that has 3 porch steps/7 steps to 2nd floor.. IS DISABLED WORKED [employer] IN PAST. NO SERVICE.. occasionally uses either cane, walker or w/c also has shower chair and raised toilet seat. He does drive, Smoking Status: Current every day smoker Past Alcohol Use History: Occasional Additional Past Alcohol Use History / Comment(s): started smoking at age 14 Smokes 2 packs per day; ETOH ABUSE-patient states he has past hx of heavy drinking but states he now drinks way less Past Drug Use History: None Reported Additional Drug Use History / Comment(s): Pt denies marijuana/street drug use. - Past Family History Father Family Medical History: Diabetes Mellitus Additional Family Medical History / Comment(s): Mother Family Medical History: Dementia, Hyperlipidemia, Hypertension Additional Family Medical History / Comment(s): Mother is living. Medications and Allergies Home Medications Medication Instructions Recorded Confirmed Type Magnesium Oxide [Mag-Ox] 400 mg PO DAILY 09/18/17 09/15/20 History Cyclobenzaprine HCl 10 mg PO BID PRN 11/25/19 09/15/20 History Gabapentin [Neurontin] 400 mg PO TID 11/25/19 09/15/20 History HYDROcodone/APAP 5-325MG [[place] 1 tab PO BID 11/25/19 09/15/20 History 5-325] Lipase/Protease/Amylase [Rebel Belcher 48,000 units PO AC-TID 11/25/19 09/15/20 History 24,000 Units Capsule] Metoprolol Tartrate [Lopressor] 25 mg PO BID 11/25/19 09/15/20 History Morphine Pain Pump 1 dose INTRATHECA CONTINUOUS 11/25/19 09/15/20 History Omeprazole [PriLOSEC] 40 mg PO DAILY 11/25/19 09/15/20 History Budesonide/Formoterol Fumarate 2 puff INHALATION RT-BID 06/14/20 09/15/20 History [Symbicort 160-4.5 Mcg Inhaler] Ergocalciferol (Vitamin D2) 1,250 mcg PO MO 06/14/20 09/15/20 History [Drisdol (50,000 Iu)] Pantoprazole Sodium [Protonix] 40 mg PO BID 30 Days #60 tablet. 09/16/20 Rx Allergies Allergy/AdvReac Type Severity Reaction Status Date / Time No Known Allergies Allergy Verified 09/15/20 17:27 Physical Exam Vitals: Vital Signs Temp Pulse Pulse Resp BP BP Pulse Ox 09/16/20 08:00 89 18 09/16/20 07:55 98.2 F 89 18 148/84 100 09/16/20 01:43 98.7 F 91 18 150/92 100 09/16/20 00:56 88 20 09/15/20 20:57 98.6 F 88 20 131/90 98 09/15/20 19:51 82 18 100/77 96 09/15/20 15:44 98.7 F 92 17 111/80 100 Intake and Output 09/15/20 09/16/20 09/16/20 22:59 06:59 14:59 Output Total 700 Balance -700 Output: Urine 700 Other: Voiding Method Urinal Urinal # Voids 0 1 Weight 70.76 kg PHYSICAL EXAMINATION: GENERAL: The patient is alert and oriented x3, not in any acute distress. Well developed, well nourished. HEENT: Pupils are round and equally reacting to light. EOMI. No scleral icterus. No conjunctival pallor. Normocephalic, atraumatic. No pharyngeal erythema. No thyromegaly. CARDIOVASCULAR: S1 and S2 present. No murmurs, rubs, or gallops. PULMONARY: Chest is clear to auscultation, no wheezing or crackles. ABDOMEN: Soft, subjective tenderness in the epigastric area, nondistended, normoactive bowel sounds. No palpable organomegaly. MUSCULOSKELETAL: No joint swelling or deformity. EXTREMITIES: No cyanosis, clubbing, or pedal edema. NEUROLOGICAL: Gross neurological examination did not reveal any focal deficits. SKIN: No rashes. Results CBC & Chem 7: 09/15/20 17:03 09/15/20 17:03 Labs: Abnormal Lab Results - Last 24 Hours (Table) 09/15/20 09/15/20 09/15/20 Range/Units 17:03 17:03 17:03 WBC 11.3 H (3.8-10.6) k/uL RBC 4.17 L (4.30-5.90) m/uL Neutrophils # 9.5 H (1.3-7.7) k/uL APTT 20.7 L (22.0-30.0) sec Sodium 132 L (137-145) mmol/L Chloride 94 L (98-107) mmol/L Glucose 119 H (74-99) mg/dL Alkaline Phosphatase 141 H (38-126) U/L Urine Protein (Negative) Urine Ketones (Negative) Urine Blood (Negative) Ur Leukocyte Esterase (Negative) Urine RBC (0-5) /hpf Urine WBC (0-5) /hpf Hyaline Casts (0-2) /lpf Urine Mucus (None) /hpf Urine Yeast (Budding) (None) /hpf 09/16/20 Range/Units 05:30 WBC (3.8-10.6) k/uL RBC (4.30-5.90) m/uL Neutrophils # (1.3-7.7) k/uL APTT (22.0-30.0) sec Sodium (137-145) mmol/L Chloride (98-107) mmol/L Glucose (74-99) mg/dL Alkaline Phosphatase (38-126) U/L Urine Protein Trace H (Negative) Urine Ketones 1+ H (Negative) Urine Blood Trace H (Negative) Ur Leukocyte Esterase Large H (Negative) Urine RBC 10 H (0-5) /hpf Urine WBC 164 H (0-5) /hpf Hyaline Casts 5 H (0-2) /lpf Urine Mucus Rare H (None) /hpf Urine Yeast (Budding) Few H (None) /hpf Microbiology - Last 24 Hours (Table) 09/16/20 05:30 Urine Culture - Preliminary Urine,Voided Thrombosis Risk Factor Assmnt - Choose All That Apply Each Factor Represents 1 point: Abnormal pulmonary function (COPD), Age 41-60 years Thrombosis Risk Factor Assessment Total Risk Factor Score: 2 Thrombosis Risk Factor Assessment Level: Low Risk Assessment and Plan Plan: -Abdominal pain: Probably secondary to peptic ulcer disease or gastroesophageal reflux disease from hiatal hernia. Patient the will be discharged on Protonix twice a day along with simethicone. Patient will be started on diet if he can tolerate the diet patient will be discharged today further workup for the paraesophageal hernia can be done as an outpatient. Patient will not require any pain medications upon discharge as he already has no current pain pump. -COPD without any acute exacerbation next and hyperlipidemia -Hypertension -Benign prostatic hypertrophy -History of chronic alcoholism, he he says he cut down on alcohol but continues to drink -Depression -Continued nicotine use: Counseling was provided
[2020-09-16 14:22] VITALS: BP 135/90; PULSE 92; TEMP 98.1
--- NOTE | 2020-09-16 14:36 | FL ---
EXAMINATION TYPE: FL UGI w esophagus DATE OF EXAM: 09/16/2020 COMPARISON: CT from yesterday and older studies HISTORY: Epigastric pain, possible hiatal hernia. TECHNIQUE: A double contrast UGI study is attempted. A total of 1 minute 51 seconds of fluoroscopic time utilized. 62 spot images saved. FINDINGS: [employer] Representative image of the abdomen not performed. CT was performed one day earlier. Evaluation is suboptimal as patient has difficulty swallowing and spills contrast, only few episodes of upright AP drinking could be obtained. Patient had Limited toleration of air crystals. Limited sips of contrast showed some debris there is some dilatation in the mid to distal esophagus. Note is made of multiple lower thoracic spinal canal stimulator device. There is delay in flow in the lower thorax with small caliber channel eventually flowing into stomach below diaphragm. When correl ating with recent CTs there is beginning evidence of pancreatitis and peripancreatic fluid collection on April 03, 2018 CT with developing formed fluid collection extending from the pancreas superior ly on March 19, 2020 CT into hiatal hernia. Enlarging fluid collection at this level is noted. When correlating this study with serial CT studies, there is mass effect from enlarging cystic lesion ext ending from the pancreatic proximal body causing anterior distal esophageal displacement. There is ma intenance of normal esophageal mucosal folds. Delay in passage below diaphragm noted. Cholecystectomy clips are appreciated. Stomach below diaphragm and duodenal sweep are not assessed on this limited study. IMPRESSION: As suspected on recent CT there is enlarging lobulated encapsulated fluid collection or s uspected pseudocyst extending into hiatal hernia causing significant mass effect on the distal esopha celine and causing fairly moderate obstruction and delayed passage of ingested material distal thoracic level to the stomach below the diaphragm. Consider endoscopy with ultrasound-guided needle drainage to help relieve symptoms.
--- NOTE | 2020-09-16 15:12 | CONS ---
CONSULTATION DATE OF DICTATION: September 16, 2020. REASON FOR CONSULTATION: Epigastric pain and pancreatic pseudocyst. HISTORY OF PRESENT ILLNESS: The patient is a 50-year-old white male with history of heavy alcohol abuse and prior history of chronic relapsing pancreatitis with multiple hospitalizations in the past, admitted to the hospital with severe epigastric pain for the last 3 days duration. The pain has been progressively getting worse associated with some nausea and vomiting. He came to the emergency room and he had a CT of the abdomen and pelvis done that showed a 9 cm cystic fluid collection consistent with a pancreatic pseudocyst. The patient has been actively drinking alcohol. His last alcohol intake was about a week ago. PAST MEDICAL HISTORY: Significant for hypertension, chronic relapsing pancreatitis, gastroesophageal reflux disease, chronic pain syndrome, and COPD. PAST SURGICAL HISTORY: Cholecystectomy, bronchoscopy, multiple EGDs, colonoscopies, back surgery, and spinal cord stimulator placement. MEDICATIONS AT HOME: Prilosec, morphine pain pump placed two years ago, Lopressor, magnesium oxide, Creon, [place], Neurontin, Drisdol, cyclobenzaprine, Symbicort, Protonix, simethicone. ALLERGIES: None. SOCIAL HISTORY: Chronic smoker. Heavy alcohol abuse as mentioned above. FAMILY HISTORY: Unremarkable. REVIEW OF SYSTEMS: CARDIOPULMONARY: No chest pain or shortness of breath. GENITOURINARY: No dysuria or hematuria. MUSCULOSKELETAL: Unremarkable. SKIN: Unremarkable. ENDOCRINE: Unremarkable. PSYCHIATRIC: Anxiety and depression. ENT/VISION: Unremarkable. CONSTITUTIONAL: No recent weight loss. No fever, chills, night sweats. PHYSICAL EXAMINATION: He appears comfortable. No apparent distress. Vital signs are stable. Blood pressure is 133/82, pulse rate 85 per minute and afebrile. HEENT EXAMINATION: Unremarkable. Conjunctivae pink. Sclerae anicteric. Oral cavity no lesions. NECK: No JVD or lymph node enlargement. CHEST: Was clear to auscultation. HEART: Regular rate and rhythm. ABDOMEN: Soft. There was a pain pump in the left lower quadrant area. There was tenderness in the epigastric area. Bowel sounds are positive. No organomegaly. EXTREMITIES: No pedal edema. NEURO: He is alert and oriented x3. No focal deficits. LABS: Labs done at the time of admission to the hospital, WBC 11.3, hemoglobin 14.3, platelets normal. Amylase and lipase are within normal limits at 47 and 168. AST, ALT, T-bilirubin and alkaline phosphatase are normal. PT, INR is within normal limits. Coronavirus PCR is negative. Serum alcohol level less than 10. IMPRESSION: 1. This is a patient with heavy alcohol abuse and chronic relapsing pancreatitis, admitted to the hospital with severe epigastric pain for the last 3-4 days duration associated with nausea, vomiting. CT of the abdomen showed a 9 x 7 cm cyst in the head of the pancreas, consistent with pancreatic pseudocyst, which appears to be symptomatic. Amylase and lipase are normal. 2. History of heavy alcohol abuse. 3. History of gastroesophageal reflux disease. 4. Chronic back pain, status post pain pump implanted 2 years ago. RECOMMENDATION: 1. Start him on a clear liquid diet. 2. Continue pain medications as needed. 3. Advised to remain abstinent from alcohol. 4. In regards to the pancreatic pseudocyst, at this time we can continue to manage it conservatively. We will plan a repeat CT of the abdomen in 4 weeks to see the size of the pseudocyst. He was advised to follow up in the office following discharge from the hospital. Thank you for this consultation. MMODL / IJN: [id number] /
[2020-09-16 20:29] LABS: African American GFR (CKD) 125.8 (60.0-200.0); Albumin 3.3 g/dL (3.80-4.90); Albumin/Globulin Ratio 1.38 (1.60-3.17); Anion Gap 10.4 mmol/L (4.00-12.00); BUN/Creat Ratio 18.57 Ratio (12.00-20.00); Calcium 8.6 mg/dL (8.7-10.3); Carbon Dioxide 23.6 mmol/L (21.6-31.8); Globulin 2.4 g/dL (1.6-3.3); Non-African American GFR(CKD) 108.5 (60.0-200.0); Potassium 3.9 mmol/L (3.5-5.5); Total Bilirubin 0.4 mg/dL (0.2-1.2); Total Protein 5.7 g/dL (6.2-8.2)
[2020-09-20] MEDS ORDERED: ERGOCALCIFEROL 1,250 MCG (50,000 IU) CAPSULE PO SCH (09:00)
== END 2020-09-16 15:50 | disposition home or self-care (01) ==
LOC: EC 15:15 → 6NMEDSUR 19:32
PROVIDERS: ADMIT Hospitalist; ATTEND Hospitalist
DX: R10.13 Epigastric pain (principal); K86.3 Pseudocyst of pancreas; K86.1 Other chronic pancreatitis; F10.20 Alcohol dependence, uncomplicated; K70.10 Alcoholic hepatitis without ascites; E78.5 Hyperlipidemia, unspecified; I10 Essential (primary) hypertension; J44.9 Chronic obstructive pulmonary disease, unspecified; K21.9 Gastro-esophageal reflux disease without esophagitis; N26.1 Atrophy of kidney (terminal); G62.9 Polyneuropathy, unspecified; F17.210 Nicotine dependence, cigarettes, uncomplicated; N13.30 Unspecified hydronephrosis; N40.1 Benign prostatic hyperplasia with lower urinary tract symptoms; R33.8 Other retention of urine; F41.9 Anxiety disorder, unspecified; F32.9 Major depressive disorder, single episode, unspecified; G89.4 Chronic pain syndrome; K44.9 Diaphragmatic hernia without obstruction or gangrene; M54.5 Low back pain; Z79.51 Long term (current) use of inhaled steroids; Z79.899 Other long term (current) drug therapy; Z79.891 Long term (current) use of opiate analgesic; Z97.8 Presence of other specified devices; Z87.01 Personal history of pneumonia (recurrent); Z87.19 Personal history of other diseases of the digestive system; Z90.49 Acquired absence of other specified parts of digestive tract; Z98.890 Other specified postprocedural states; Z87.442 Personal history of urinary calculi; Z83.3 Family history of diabetes mellitus; Z82.49 Family history of ischemic heart disease and other diseases of the circulatory system; Z81.8 Family history of other mental and behavioral disorders
CPT/HCPCS: 96376; 96361 ×3; 96374; 96375; 99285; 36415; 94640; 80053 ×2; 82150 ×2; 83690 ×2; 85025; 85610; 85730; 81001; 87086; 87636; 74240; 74177; G0378 ×2; G0480; J2270; J2405 ×2; C9113 ×2; Q9967; 80320

== ENCOUNTER 2020-09-21 23:56 | Observation (INO) | payer MEDICARE, OTHER ==
[2020-09-22] MEDS ORDERED: SODIUM CHLORIDE 0.9% 1,000 ML IV STA (00:24)
[2020-09-22] MEDS ORDERED: MORPHINE SULFATE 4 MG/ML SYRINGE IVP STA (00:24)
[2020-09-22] MEDS ORDERED: ONDANSETRON 4 MG/2 ML VIAL IVP STA ×2 (00:24→02:11)
[2020-09-22 00:50] LABS: Basophils # (A) 0.1 k/uL (0-0.2); Basophils % (A) 0 %; Eosinophils # (A) 0.1 k/uL (0-0.7); Eosinophils % (A) 1 %; HCT 41.7 % (39.0-53.0); HGB 13.7 gm/dL (13.0-17.5); Lymphocytes # (A) 1.4 k/uL (1.0-4.8); Lymphocytes % (A) 13 %; MCH 33.5 pg (25.0-35.0); MCHC 32.9 g/dL (31.0-37.0); MCV 101.7 fL (80.0-100.0); Macrocytosis Slight; Monocytes # (A) 0.6 k/uL (0-1.0); Monocytes % (A) 6 %; Neutrophils # (A) 8.2 k/uL (1.3-7.7); Neutrophils % (A) 79 %; Platelet Count 397 k/uL (150-450); RDW 15.3 % (11.5-15.5); WBC 10.4 k/uL (3.8-10.6)
[2020-09-22 01:02] LABS: AST 29 U/L (17-59); African American GFR (CKD) >90 (>60 ml/min/1.73 sqM); Albumin 4.2 g/dL (3.5-5.0); Alkaline Phosphatase 227 U/L (38-126); Amylase 39 U/L (30-110); Anion Gap 13 mmol/L; Blood Urea Nitrogen 8 mg/dL (9-20); Calcium 9.9 mg/dL (8.4-10.2); Carbon Dioxide 30 mmol/L (22-30); Chloride 92 mmol/L (98-107); Glucose 126 mg/dL (74-99); Lipase 103 U/L (23-300); Non-African American GFR(CKD) >90 (>60 ml/min/1.73 sqM); Potassium 3.2 mmol/L (3.5-5.1); Sodium 135 mmol/L (137-145); Total Bilirubin 0.8 mg/dL (0.2-1.3); Total Protein 7.6 g/dL (6.3-8.2)
--- NOTE | 2020-09-22 01:04 | ED ---
Abdominal Pain HPI - General Source: patient Mode of arrival: ambulatory Limitations: no limitations <Sanket Bangura - Last Filed: 09/22/20 03:32> <Carlos Parra - Last Filed: 09/22/20 06:54> - General Chief Complaint: Abdominal Pain Stated Complaint: Abdominal Pain Time Seen by Provider: 09/22/20 00:04 - History of Present Illness Initial Comments: 50-year-old male with history of alcohol abuse and pancreatitis presents to emergency Department with a chief complaint of abdominal pain. Patient reports started about 5 days ago and is located in the epigastric abdominal region without any radiation. He reports nausea and multiple episodes of nonbilious and nonbloody vomiting. Pain is not postprandial. He does have a morphine pump in the left abdominal region. Patient also reports decreased oral intake over the last several days since the onset of pain. Patient has chronic history of alcohol abuse but has been sober for the past several months. Denies any chest pain shortness of breath. Does have history of chronic back pain. Denies any infectious or obstructive urinary symptoms. Denies mature, hematochezia or melena. Denies any fevers or chills. (Sanket Bangura) - Related Data Home Medications Medication Instructions Recorded Confirmed Magnesium Oxide [Mag-Ox] 400 mg PO DAILY 09/18/17 09/15/20 Cyclobenzaprine HCl 10 mg PO BID PRN 11/25/19 09/15/20 Gabapentin [Neurontin] 400 mg PO TID 11/25/19 09/15/20 HYDROcodone/APAP 5-325MG [[place] 1 tab PO BID 11/25/19 09/15/20 5-325] Lipase/Protease/Amylase [Rebel Belcher 48,000 units PO AC-TID 11/25/19 09/15/20 24,000 Units Capsule] Metoprolol Tartrate [Lopressor] 25 mg PO BID 11/25/19 09/15/20 Morphine Pain Pump 1 dose INTRATHECA CONTINUOUS 11/25/19 09/15/20 Omeprazole [PriLOSEC] 40 mg PO DAILY 11/25/19 09/15/20 Budesonide/Formoterol Fumarate 2 puff INHALATION RT-BID 06/14/20 09/15/20 [Symbicort 160-4.5 Mcg Inhaler] Ergocalciferol (Vitamin D2) 1,250 mcg PO MO 06/14/20 09/15/20 [Drisdol (50,000 Iu)] Previous Rx's Medication Instructions Recorded Pantoprazole Sodium [Protonix] 40 mg PO BID 30 Days #60 tablet. 09/16/20 Simethicone 80 mg PO TID #30 tab.chew 09/16/20 Allergies Allergy/AdvReac Type Severity Reaction Status Date / Time No Known Allergies Allergy Verified 09/22/20 00:00 Review of Systems ROS Other: All systems not noted in ROS Statement are negative. <Sanket Bangura - Last Filed: 09/22/20 03:32> ROS Other: All systems not noted in ROS Statement are negative. <Carlos Parra - Last Filed: 09/22/20 06:54> ROS Statement: Those systems with pertinent positive or pertinent negative responses have been documented in the HPI. Past Medical History Past Medical History: COPD, GERD/Reflux, GI Bleed, Hyperlipidemia, Hypertension, Liver Disease, Pneumonia, Prostate Disorder Additional Past Medical History / Comment(s): ETOH ABUSE RECURRENT PANCREATITIS, ALCOHOLIC HEPATITIS, NEUROPATHY BILATERAL FEET SINCE BACK SURGERY, hx of CHRONIC URINARY RETENTION DUE TO BACK PROBLEMS-SELF CATHS, CHRONIC L HYDROURETERONEPHROSIS D/T REFLUX, CHRONIC LOW BACK PAIN, HAS MORPHINE PAIN PUMP, History of Any Multi-Drug Resistant Organisms: None Reported Past Surgical History: Back Surgery, Cholecystectomy, Orthopedic Surgery Additional Past Surgical History / Comment(s): EGDS, colonoscopy, bronchoscopy, BACK surgeries with TITANIUM PLATES MILTON and CAGES, KIDNEY STONES removed per pt, SPINAL CORD STIMULATOR PLACED AND REMOVED ANCHORS REMAIN, ISMAEL KNEE ARTHROSCOPIES, PINKY FINGER RT HAND REATTATCHED. Past Anesthesia/Blood Transfusion Reactions: No Reported Reaction Past Psychological History: Anxiety, Depression Smoking Status: Current every day smoker Past Alcohol Use History: Occasional Past Drug Use History: None Reported - Past Family History Father Family Medical History: Diabetes Mellitus Additional Family Medical History / Comment(s): Mother Family Medical History: Dementia, Hyperlipidemia, Hypertension Additional Family Medical History / Comment(s): Mother is living. <Sanket Bangura - Last Filed: 09/22/20 03:32> General Exam Limitations: no limitations General appearance: alert, in no apparent distress Head exam: Present: atraumatic, normocephalic, normal inspection Eye exam: Present: normal appearance, PERRL, EOMI Pupils: Present: normal accommodation ENT exam: Present: normal exam, normal oropharynx, mucous membranes moist, TM's normal bilaterally, normal external ear exam Neck exam: Present: normal inspection, full ROM. Absent: tenderness Respiratory exam: Present: normal lung sounds bilaterally. Absent: respiratory distress, wheezes, rales, rhonchi, stridor, chest wall tenderness, accessory muscle use Cardiovascular Exam: Present: regular rate, normal rhythm, normal heart sounds. Absent: systolic murmur GI/Abdominal exam: Present: soft (Pump noted on the left side of the abdomen), tenderness (Epigastric tenderness). Absent: guarding, rebound Extremities exam: Present: normal inspection, full ROM, normal capillary refill. Absent: tenderness, pedal edema, joint swelling Back exam: Present: normal inspection, full ROM. Absent: tenderness, CVA tenderness (R), CVA tenderness (L) Neurological exam: Present: alert, oriented X3 Psychiatric exam: Present: normal affect, normal mood Skin exam: Present: warm, dry, intact, normal color <Sanket Bangura - Last Filed: 09/22/20 03:32> Course Vital Signs 09/21/20 09/22/20 23:58 05:59 Temperature 98 F Pulse Rate 72 110 H Respiratory 18 20 Rate Blood Pressure 118/80 149/97 O2 Sat by Pulse 98 98 Oximetry Medical Decision Making - Lab Data Result diagrams: 09/22/20 00:41 09/22/20 00:41 <Sanket Bangura - Last Filed: 09/22/20 03:32> - Lab Data Result diagrams: 09/22/20 00:41 09/22/20 00:41 <Carlos Parra - Last Filed: 09/22/20 06:54> - Medical Decision Making 50-year-old male with history of alcohol abuse and pancreatitis presents to emergency Department with a chief complaint of abdominal pain. On physical exam ination, patient has epigastric abdominal tenderness. He was vomiting in the ED. Patient was given IV fluids and 2 doses of Zofran and morphine. CMP shows hypokalemia of 3.2. given 40 k-debora. BUN of 8 and creatinine of 0.65. On reevaluation, patient has continuous nausea and is vomiting again. He was given Reglan and Benadryl. At this time, patient care is signed off to [email or web address] - Lab Data Lab Results 09/22/20 09/22/20 Range/Units 00:41 00:41 WBC 10.4 (3.8-10.6) k/uL RBC 4.10 L (4.30-5.90) m/uL Hgb 13.7 (13.0-17.5) gm/dL Hct 41.7 (39.0-53.0) % MCV 101.7 H (80.0-100.0) fL MCH 33.5 (25.0-35.0) pg MCHC 32.9 (31.0-37.0) g/dL RDW 15.3 (11.5-15.5) % Plt Count 397 (150-450) k/uL MPV 8.0 Neutrophils % 79 % Lymphocytes % 13 % Monocytes % 6 % Eosinophils % 1 % Basophils % 0 % Neutrophils # 8.2 H (1.3-7.7) k/uL Lymphocytes # 1.4 (1.0-4.8) k/uL Monocytes # 0.6 (0-1.0) k/uL Eosinophils # 0.1 (0-0.7) k/uL Basophils # 0.1 (0-0.2) k/uL Macrocytosis Slight Sodium 135 L (137-145) mmol/L Potassium 3.2 L (3.5-5.1) mmol/L Chloride 92 L (98-107) mmol/L Carbon Dioxide 30 (22-30) mmol/L Anion Gap 13 mmol/L BUN 8 L (9-20) mg/dL Creatinine 0.65 L (0.66-1.25) mg/dL Est GFR (CKD-EPI)AfAm >90 (>60 ml/min/1.73 sqM) Est GFR (CKD-EPI)NonAf >90 (>60 ml/min/1.73 sqM) Glucose 126 H (74-99) mg/dL Calcium 9.9 (8.4-10.2) mg/dL Total Bilirubin 0.8 (0.2-1.3) mg/dL AST 29 (17-59) U/L ALT 26 (4-49) U/L Alkaline Phosphatase 227 H (38-126) U/L Total Protein 7.6 (6.3-8.2) g/dL Albumin 4.2 (3.5-5.0) g/dL Amylase 39 (30-110) U/L Lipase 103 (23-300) U/L - EKG Data EKG Comments: Sinus tachycardia, inverted T waves in lead 3. Ventricular rate 115, LA 150, QRS 76, QTC 467. (Sanket Bangura) Disposition <Sanket Bangura - Last Filed: 09/22/20 03:32> <Carlos Parra - Last Filed: 09/22/20 06:54> Clinical Impression: Intractable vomiting, Abdominal pain Disposition: ADMITTED IP TO THIS HOSP Condition: Fair Referrals: Kerri Quinones MD [Primary Care Provider] - 1-2 days
[2020-09-22 01:09] LABS: ALT 26 U/L (4-49)
[2020-09-22] MEDS ORDERED: diphenhydrAMINE 50 MG/ML 1 ML VIAL IVP STA (03:06)
[2020-09-22] MEDS ORDERED: METOCLOPRAMIDE 5 MG/ML 2 ML VIAL IVP STA ×2 (03:06→05:24)
[2020-09-22] MEDS ORDERED: HYDROmorphone 0.5 MG/0.5 ML SYRINGE IVP STA (03:11)
[2020-09-22] MEDS ORDERED: POTASSIUM CHLORIDE ER 20 MEQ TAB.ER PO STA (03:16)
[2020-09-22] MEDS ORDERED: SODIUM CHLORIDE 0.9% 1,000 ML IV ONE (05:45)
[2020-09-22] MEDS ORDERED: NALOXONE 0.4 MG/ML 1 ML VIAL IV PRN (06:51)
[2020-09-22] MEDS ORDERED: ONDANSETRON 4 MG/2 ML VIAL IVP PRN (06:51)
[2020-09-22] MEDS ORDERED: LORazepam 2 MG/ML INJ IV PRN ×3 (06:53)
[2020-09-22] MEDS: THIAMINE 100 MG TAB PO SCH ×2 (08:29→17:25)
[2020-09-22] MEDS: FAMOTIDINE 20 MG TAB PO SCH ×2 (08:30→21:43)
[2020-09-22] MEDS: SODIUM CHLORIDE 0.9% 1,000 ML IV SCH ×2 (08:34→17:26)
[2020-09-22] MEDS: MORPHINE SULFATE 4 MG/ML SYRINGE IV PRN (09:44)
[2020-09-22] MEDS ORDERED: Potassium Replacement Protocol 1 EACH MISC MISCELLANE PRN (13:21)
--- NOTE | 2020-09-22 21:32 | P.HPIM ---
History of Present Illness H&P Date: 09/22/20 Chief Complaint: Nausea and vomiting Patient is a 50-year-old male with a known history of chronic pancreatitis, pancreatic pseudocyst, EtOH abuse, currently everyday smoker, hypertension, hyperlipidemia, history of GI bleed, GERD and GERD and COPD and osteoarthritis and chronic back pain on morphine pain pump presents to ER with the complaints of abdominal pain. Pain is made in the epigastric region for the past 5 days. Denied any radiation to the back. Patient is also having intractable nausea and vomiting mainly nonbilious. Denied any hematemesis or melena. Patient has been having decreased oral intake for the past several days since onset of pain. Patient was admitted to the hospital recently on 09/15/2020 with similar complaints. Denied any chest pain or shortness of breath. No fever no chills. No cough or sputum production. CT of the abdomen pelvis done on 09/15/2020 showed cystic fluid collection in the esophageal hiatus that could be enlarged pancreatic pseudocyst this could also an unusual paraesophageal hiatal hernia. Appears increased compared to old exam. Left renal atrophy and left-sided mild hydronephrosis and hydroureter but is probably postobstructive uropathy. Unchanged. Lab data showed WBC 10.4, hemoglobin 13.7 and MCV 101.7 Sodium 135 potassium 3.2 chloride 92 BUN 18 creatinine 0.65 alk phos 227 bilirubin 0.8. Lipase level 103 Urinalysis showed large leukocyte esterase increase WBC count and RBCs. Otherwise patient denied any dysuria. Urine culture during previous admission showed normal genital paxton. Review of Systems Constitutional: Patient denies any fever or chills . No generalized weakness or weight loss. Abdomen: Patient does have nausea vomiting abdominal pain. No diarrhea.. Cardiovascular: Patient denies any chest pain or short of breath no palpitations. Respiratory: patient denied any cough or sputum production. No shortness of breath Neurologic: Patient denied any numbness or tingling headache. Musculoskeletal: Patient denies any complaints of joint swelling or deformity. Skin: Negative Psychiatric: Negative Endocrine: No heat or cold intolerance. No recent weight gain. Genitourinary: No dysuria or hematuria. All other 14 point ROS negative except the above Past Medical History Past Medical History: COPD, GERD/Reflux, GI Bleed, Hyperlipidemia, Hypertension, Liver Disease, Osteoarthritis (OA), Pneumonia, Prostate Disorder Additional Past Medical History / Comment(s): Pt recently admitted to [facility] on 09/15/20 with abdominal pain/paraesophageal hernia or pancreatic pseudocyst-pt states he f/u at Dr. Kellogg's office and was told it is a pancreatic mass-waiting for further instructions. Other hx: ETOH abuse, recurrent pancreatitis, alcoholic hepatitis, chronic back pain, neuropathy bilateral feet and chronic urinary retention since back surgery, self caths prn, chronic L hydroureterone phrosis d/t reflux, MORPHINE PAIN PUMP L ABDOMIN, L shoulder pain/dislocation, hiatal hernia, PUD, upper and lower GI bleeds, BPH, pt states surgery to remove kidney stones. History of Any Multi-Drug Resistant Organisms: None Reported Past Surgical History: Back Surgery, Cholecystectomy, Orthopedic Surgery Additional Past Surgical History / Comment(s): EGDs, colonoscopy, low back titanium plate/rods/cages, spinal stimulator since removed, MORPHINE PAIN PUMP, bronchoscopy, surgery for kidney stones, bilateral knee arthroscopies, R 5th finger reattachment. Past Anesthesia/Blood Transfusion Reactions: No Reported Reaction Smoking Status: Current every day smoker - Past Family History Father Family Medical History: Diabetes Mellitus Additional Family Medical History / Comment(s): Mother Family Medical History: Dementia, Hyperlipidemia, Hypertension Additional Family Medical History / Comment(s): Mother is living. Medications and Allergies Home Medications Medication Instructions Recorded Confirmed Type Magnesium Oxide [Mag-Ox] 400 mg PO DAILY 09/18/17 09/22/20 History Cyclobenzaprine HCl 10 mg PO BID PRN 11/25/19 09/22/20 History Gabapentin [Neurontin] 400 mg PO DAILY 11/25/19 09/22/20 History HYDROcodone/APAP 5-325MG [Donnellson 1 tab PO BID 11/25/19 09/22/20 History 5-325] Lipase/Protease/Amylase [Rebel Belcher 48,000 units PO AC-TID 11/25/19 09/22/20 His simona 24,000 Units Capsule] Metoprolol Tartrate [Lopressor] 25 mg PO BID 11/25/19 09/22/20 History Morphine Pain Pump 1 dose INTRATHECA CONTINUOUS 11/25/19 09/22/20 History Omeprazole [PriLOSEC] 40 mg PO DAILY 11/25/19 09/22/20 History Budesonide/Formoterol Fumarate 2 puff INHALATION RT-BID 06/14/20 09/22/20 History [Symbicort 160-4.5 Mcg Inhaler] Ergocalciferol (Vitamin D2) 1,250 mcg PO MO 06/14/20 09/22/20 History [Drisdol (50,000 Iu)] Pantoprazole Sodium [Protonix] 40 mg PO BID 30 Days #60 tablet.dr 09/16/20 09/22/20 Rx Simethicone 80 mg PO TID #30 tab.chew 09/16/20 09/22/20 Rx Furosemide [Lasix] 20 mg PO BID 09/22/20 09/22/20 History Allergies Allergy/AdvReac Type Severity Reaction Status Date / Time No Known Allergies Allergy Verified 09/22/20 00:00 Physical Exam Vitals: Vital Signs Temp Pulse Resp BP Pulse Ox 09/22/20 09:13 98 18 138/84 99 09/22/20 05:59 110 H 20 149/97 98 09/21/20 23:58 98 F 72 18 118/80 98 Intake and Output 09/21/20 09/22/20 09/22/20 22:59 06:59 14:59 Other: Weight 71.214 kg 71.214 kg PHYSICAL EXAMINATION: Patient is lying in the bed comfortably, no acute distress, awake alert and oriented.. HEENT: Normocephalic. Neck is supple. Pupils reactive. Nostrils clear. Oral c avity is moist. Ears reveal no drainage. Neck reveals no JVD, carotid bruits, or thyromegaly. CHEST EXAMINATION: Trachea is central. Symmetrical expansion. Lung cowan clear to auscultation and percussion. CARDIAC: Normal S1, S2 with no gallops. No murmurs ABDOMEN: Soft.Mild epigastric tenderness. Bowel sounds normal. No organomegaly. No abdominal bruits. Extremities: reveal no edema. No clubbing or cyanosis Neurologically awake, alert, oriented x3 with well-coordinated movements. No focal deficits noted Skin: No rash or skin lesions. Psychiatric: Coperative. Nonsuicidal Musculoskeletal: No joint swelling or deformity. Normal range of motion. Results CBC & Chem 7: 09/22/20 00:41 09/22/20 00:41 Labs: Abnormal Lab Results - Last 24 Hours (Table) 09/22/20 09/22/20 Range/Units 00:41 00:41 RBC 4.10 L (4.30-5.90) m/uL MCV 101.7 H (80.0-100.0) fL Neutrophils # 8.2 H (1.3-7.7) k/uL Sodium 135 L (137-145) mmol/L Potassium 3.2 L (3.5-5.1) mmol/L Chloride 92 L (98-107) mmol/L BUN 8 L (9-20) mg/dL Creatinine 0.65 L (0.66-1.25) mg/dL Glucose 126 H (74-99) mg/dL Alkaline Phosphatase 227 H (38-126) U/L Thrombosis Risk Factor Assmnt - DVT/VTE Prophylaxis DVT/VTE Prophylaxis: Pharmacologic Prophylaxis ordered - Choose All That Apply Any of the Below Risk Factors Present?: Yes Each Factor Represents 1 point: Age 41-60 years Other Risk Factors: No Other congenital or acquired thrombophilia - If yes, enter type in comment: No Thrombosis Risk Factor Assessment Total Risk Factor Score: 1 Thrombosis Risk Factor Assessment Level: Low Risk Assessment and Plan Assessment: Intractable nausea and vomiting Abdominal pain likely due to acute on chronic recurrent pancreatitis Pancreatic pseudocyst Sinus tachycardia Hypovolemic hyponatremia Chronic back pain currently morphine pain pump Alcohol abuse Recurrent admissions with similar complaints/pancreatitis Peptic ulcer disease hiatal hernia GERD Hypertension Hyperlipidemia Osteoarthritis History of alcohol hepatitis Bilateral lower extremity peripheral neuropathy nondiabetic. L hydroureteronephrosis d/t reflux Currently everyday smoker DVT prophylaxis Heparin subcu Plan: Patient will be continued on IV hydration with normal saline and clear liquid diet. Continue with pain management with IV Dilaudid and patient is also having morphine pump. Continue with GI and DVT prophylaxis. Symptomatic management for nausea and vomiting. Continue to monitor closely. Prognosis is guarded at this time. Time with Patient: Greater than 30
[2020-09-23] MEDS: MORPHINE SULFATE 4 MG/ML SYRINGE IV PRN ×4 (00:19→18:10)
[2020-09-23] MEDS: HEPARIN SODIUM,PORCINE/PF 5,000 UNIT/0.5 ML SYRINGE SQ SCH ×3 (00:47→16:03)
[2020-09-23] MEDS: SODIUM CHLORIDE 0.9% 1,000 ML IV SCH ×3 (05:56→18:11)
[2020-09-23 06:13] LABS: Basophils % (A) 0 %; Eosinophils # (A) 0.1 k/uL (0-0.7); Eosinophils % (A) 1 %; HCT 34.2 % (39.0-53.0); HGB 12.1 gm/dL (13.0-17.5); Lymphocytes # (A) 0.5 k/uL (1.0-4.8); Lymphocytes % (A) 7 %; MCH 35.5 pg (25.0-35.0); MCHC 35.3 g/dL (31.0-37.0); MCV 100.5 fL (80.0-100.0); Macrocytosis Slight; Mean Platelet Volume 7.5; Monocytes # (A) 0.5 k/uL (0-1.0); Monocytes % (A) 8 %; Neutrophils # (A) 5.5 k/uL (1.3-7.7); Neutrophils % (A) 83 %; Platelet Count 280 k/uL (150-450); RBC 3.41 m/uL (4.30-5.90); RDW 14.8 % (11.5-15.5); WBC 6.7 k/uL (3.8-10.6)
[2020-09-23] MEDS: FAMOTIDINE 20 MG TAB PO SCH ×2 (07:14→21:19)
[2020-09-23] MEDS: THIAMINE 100 MG TAB PO SCH ×2 (07:14→18:10)
[2020-09-23 08:29] LABS: Appearance,Urine Clear (Clear); Bacteria,Urine Rare /hpf; Bilirubin,Urine Negative (Negative); Blood,Urine Small (Negative); Color,Urine Yellow; Glucose,Urine (UA) Negative (Negative); Ketones,Urine Negative (Negative); Leukocyte Esterase,Urine Large (Negative); Mucus,Urine Rare /hpf; Nitrite,Urine Negative (Negative); PH, Urine 8.5 (5.0-8.0); Protein,Urine 1+ (Negative); RBC,Urine 10 /hpf (0-5); Specific Gravity,Urine 1.014 (1.001-1.035); Squamous Epithelial Cell,Urine <1 /hpf (0-4); Urobilinogen,Urine <2.0 mg/dL (<2.0); WBC,Urine 52 /hpf (0-5)
[2020-09-23 09:47] LABS: African American GFR (CKD) 125.8 (60.0-200.0); Anion Gap 10.7 mmol/L (4.00-12.00); BUN/Creat Ratio 8.57 Ratio (12.00-20.00); Calcium 8.2 mg/dL (8.7-10.3); Carbon Dioxide 27.3 mmol/L (21.6-31.8); Non-African American GFR(CKD) 108.5 (60.0-200.0); Potassium 3.4 mmol/L (3.5-5.5)
[2020-09-23] MEDS ORDERED: hydrALAZINE HCL 20 MG/ML 1 ML VIAL IVP PRN (13:40)
[2020-09-23 15:24] VITALS: BMI 25.3
[2020-09-23] MEDS: LABETALOL 100 MG TAB PO SCH ×2 (18:10→21:19)
[2020-09-23 20:37] VITALS: RESP 14
[2020-09-24] MEDS: HEPARIN SODIUM,PORCINE/PF 5,000 UNIT/0.5 ML SYRINGE SQ SCH ×2 (00:03→07:43)
[2020-09-24] MEDS: MORPHINE SULFATE 4 MG/ML SYRINGE IV PRN ×3 (00:04→11:31)
[2020-09-24] MEDS: SODIUM CHLORIDE 0.9% 1,000 ML IV SCH ×3 (00:46→15:22)
[2020-09-24] MEDS: FAMOTIDINE 20 MG TAB PO SCH (07:43)
[2020-09-24] MEDS: THIAMINE 100 MG TAB PO SCH (07:43)
[2020-09-24] MEDS: LABETALOL 100 MG TAB PO SCH (07:46)
[2020-09-24 11:49] VITALS: BP 122/84; PULSE 99; TEMP 98.2
== END 2020-09-24 15:50 | disposition home or self-care (01) ==
LOC: EC 23:56 → 5NMEDONC 09-22 06:51
PROVIDERS: ADMIT Hospitalist; ATTEND Hospitalist
DX: R11.2 Nausea with vomiting, unspecified (principal); R10.9 Unspecified abdominal pain; R10.13 Epigastric pain; K86.1 Other chronic pancreatitis; E87.1 Hypo-osmolality and hyponatremia; F10.10 Alcohol abuse, uncomplicated; K86.9 Disease of pancreas, unspecified; Z20.822 Contact with and (suspected) exposure to COVID-19; E86.1 Hypovolemia; E87.6 Hypokalemia; K46.9 Unspecified abdominal hernia without obstruction or gangrene; I10 Essential (primary) hypertension; E78.5 Hyperlipidemia, unspecified; M19.90 Unspecified osteoarthritis, unspecified site; J44.9 Chronic obstructive pulmonary disease, unspecified; K21.9 Gastro-esophageal reflux disease without esophagitis; K70.10 Alcoholic hepatitis without ascites; G62.9 Polyneuropathy, unspecified; N13.30 Unspecified hydronephrosis; F17.200 Nicotine dependence, unspecified, uncomplicated; R00.0 Tachycardia, unspecified; G89.29 Other chronic pain; M54.5 Low back pain; M25.512 Pain in left shoulder; N40.1 Benign prostatic hyperplasia with lower urinary tract symptoms; N42.9 Disorder of prostate, unspecified; R33.8 Other retention of urine; F32.9 Major depressive disorder, single episode, unspecified; F41.9 Anxiety disorder, unspecified; Z79.51 Long term (current) use of inhaled steroids; Z79.899 Other long term (current) drug therapy; Z79.891 Long term (current) use of opiate analgesic; Z97.8 Presence of other specified devices; Z90.49 Acquired absence of other specified parts of digestive tract; Z87.11 Personal history of peptic ulcer disease; Z87.442 Personal history of urinary calculi; Z87.01 Personal history of pneumonia (recurrent); Z98.890 Other specified postprocedural states; Z83.3 Family history of diabetes mellitus; Z82.49 Family history of ischemic heart disease and other diseases of the circulatory system; Z81.8 Family history of other mental and behavioral disorders; Z83.42 Family history of familial hypercholesterolemia
CPT/HCPCS: 96376 ×4; 96361 ×3; 96372 ×2; 96375 ×3; 96374; 99285; 36415; 93005 ×2; 80053; 80048; 82150; 83690; 85025 ×2; 81001; 87086; 87636; G0378 ×3; J2060; J2270 ×3; J0360; J1200; J2765; J2405; J1170; J1644 ×2

== ENCOUNTER 2020-09-24 18:48 | Emergency (ER) | payer MEDICARE, OTHER ==
[2020-09-24 19:11] VITALS: TEMP 98.3
[2020-09-24] MEDS ORDERED: ONDANSETRON 4 MG/2 ML VIAL IVP STA (19:26)
[2020-09-24] MEDS ORDERED: HYDROmorphone 1 MG/ML 1 ML SYRINGE IVP STA ×2 (19:26→21:16)
[2020-09-24] MEDS ORDERED: TRIMETHOBENZAMIDE 100 MG/ML 2 ML VIAL IM STA (19:44)
--- NOTE | 2020-09-24 19:45 | ED ---
SOB HPI - General Chief Complaint: Shortness of Breath Stated Complaint: sob Time Seen by Provider: 09/24/20 18:58 Source: EMS Mode of arrival: EMS Limitations: no limitations - History of Present Illness Initial Comments: 50-year-old male patient with past medical history significant for EtOH abuse, pancreatitis, pancreatic pseudocyst, discharged from the hospital today presents to the emergency department for evaluation of shortness of breath and increased pain. Patient states that he got home was lying on the couch. States he started to have difficulty breathing states she was breathing heavier. States his pain returned and he feels quite nauseated so he presented back here for further evaluation. Patient does have an implanted morphine pump but does not have any other pain medications at home. Has not taken anything for nausea. Denies fever or chills but denies any cough. Denies any chest pain or tightness. Patient denies any recent rash, abdominal pain, vomiting, diarrhea, constipation, back pain, numbness, tingling, dizziness, weakness, hematuria, dysuria, urinary urgency, urinary frequency, headache, visual changes, or any ot her complaints. - Related Data Home Medications Medication Instructions Recorded Confirmed Magnesium Oxide [Mag-Ox] 400 mg PO DAILY 09/18/17 09/22/20 Cyclobenzaprine HCl 10 mg PO BID PRN 11/25/19 09/22/20 Gabapentin [Neurontin] 400 mg PO DAILY 11/25/19 09/22/20 HYDROcodone/APAP 5-325MG [Iva 1 tab PO BID 11/25/19 09/22/20 5-325] Lipase/Protease/Amylase [Rebel Belcher 48,000 units PO AC-TID 11/25/19 09/22/20 24,000 Units Capsule] Metoprolol Tartrate [Lopressor] 25 mg PO BID 11/25/19 09/22/20 Morphine Pain Pump 1 dose INTRATHECA CONTINUOUS 11/25/19 09/22/20 Omeprazole [PriLOSEC] 40 mg PO DAILY 11/25/19 09/22/20 Budesonide/Formoterol Fumarate 2 puff INHALATION RT-BID 06/14/20 09/22/20 [Symbicort 160-4.5 Mcg Inhaler] Ergocalciferol (Vitamin D2) 1,250 mcg PO MO 06/14/20 09/22/20 [Drisdol (50,000 Iu)] Furosemide [Lasix] 20 mg PO BID 09/22/20 09/22/20 Previous Rx's Medication Instructions Recorded Pantoprazole Sodium [Protonix] 40 mg PO BID 30 Days #60 tablet. 09/16/20 Simethicone 80 mg PO TID #30 tab.chew 09/16/20 Amoxic-Pot Clav 875-125Mg 1 tab PO Q12HR #20 tablet 09/24/20 [Augmentin 875-125] Azithromycin [Zithromax Z-pack (6 0 mg PO DIRECTED #6 tab 09/24/20 tabs)] Allergies Allergy/AdvReac Type Severity Reaction Status Date / Time No Known Allergies Allergy Verified 09/22/20 00:00 Review of Systems ROS Statement: Those systems with pertinent positive or pertinent negative responses have been documented in the HPI. ROS Other: All systems not noted in ROS Statement are negative. Past Medical History Past Medical History: COPD, GERD/Reflux, GI Bleed, Hyperlipidemia, Hypertension, Liver Disease, Osteoarthritis (OA), Pneumonia, Prostate Disorder Additional Past Medical History / Comment(s): Pt recently admitted to [facility] on 09/15/20 with abdominal pain/paraesophageal hernia or pancreatic pseudocyst-pt states he f/u at Dr. Kellogg's office and was told it is a pancreatic mass-waiting for further instructions. Other hx: ETOH abuse, recurrent pancreatitis, alcoholic hepatitis, chronic back pain, neuropathy bilateral feet and chronic urinary retention since back surgery, self caths prn, chronic L hydroureteronephrosis d/t reflux, MORPHINE PAIN PUMP L ABDOMIN, L shoulder pain/dislocation, hiatal hernia, PUD, upper and lower GI bleeds, BPH, pt states surgery to remove kidney stones. History of Any Multi-Drug Resistant Organisms: None Reported Past Surgical History: Back Surgery, Cholecystectomy, Orthopedic Surgery Additional Past Surgical History / Comment(s): EGDs, colonoscopy, low back titanium plate/rods/cages, spinal stimulator since removed, MORPHINE PAIN PUMP, bronchoscopy, surgery for kidney stones, bilateral knee arthroscopies, R 5th finger reattachment. Past Anesthesia/Blood Transfusion Reactions: No Reported Reaction Past Psychological History: Anxiety, Depression Smoking Status: Current every day smoker Past Alcohol Use History: None Reported Past Drug Use History: None Reported - Past Family History Father Family Medical History: Diabetes Mellitus Additional Family Medical History / Comment(s): Mother Family Medical History: Dementia, Hyperlipidemia, Hypertension Additional Family Medical History / Comment(s): Mother is living. General Exam Limitations: no limitations General appearance: alert, in no apparent distress Eye exam: Present: normal appearance, PERRL, EOMI. Absent: scleral icterus, conjunctival injection, periorbital swelling Respiratory exam: Present: normal lung sounds bilaterally. Absent: respiratory distress, wheezes, rales, rhonchi, stridor Cardiovascular Exam: Present: regular rate, normal rhythm, normal heart sounds. Absent: systolic murmur, diastolic murmur, rubs, gallop, clicks GI/Abdominal exam: Present: soft, distended, tenderness (midepigastric), normal bowel sounds, other (pain pump left abdomen). Absent: guarding, rebound, rigid Neurological exam: Present: alert, oriented X3, CN II-XII intact Psychiatric exam: Present: normal affect, normal mood Skin exam: Present: warm, dry, intact, normal color. Absent: rash Course Vital Signs 09/24/20 09/24/20 09/24/20 19:07 19:11 19:47 Temperature 98.3 F Pulse Rate 89 Respiratory 24 24 Rate Blood Pressure 149/98 143/99 O2 Sat by Pulse 99 Oximetry 09/24/20 09/24/20 21:10 21:47 Temperature Pulse Rate 92 Respiratory 16 Rate Blood Pressure 110/83 O2 Sat by Pulse 98 97 Oximetry Medical Decision Making - Medical Decision Making 50 year-old male patient presents to the emergency department for evaluation of shortness of breath. Also reporting abdominal pain which is usual for him due to chronic pancreatitis. Was discharged from inpatient yesterday for the same. Physical examination did reveal some rhonchi to the right posterior lung cowan. Oxygen saturation 97% on room air. No cough. No fever. Labs reviewed and not significantly changed. Chest xray showed right lower lobe pneumonia. Small bilateral pleural effusions. He is comfortable being discharged home to start azithromycin and Augmentin due to multiple comorbidities. He is instructed to follow-up with his primary care physician for recheck in 1-2 days. Return parameters were discussed in detail. He verbalizes understanding and agrees with this plan. Case discussed with my attending Dr. Boss. - Lab Data Result diagrams: 09/24/20 19:47 09/24/20 19:47 Lab Results 09/24/20 09/24/20 09/24/20 Range/Units 19:47 19:47 19:47 WBC 8.6 (3.8-10.6) k/uL RBC 3.49 L (4.30-5.90) m/uL Hgb 12.0 L (13.0-17.5) gm/dL Hct 35.3 L (39.0-53.0) % MCV 101.2 H (80.0-100.0) fL MCH 34.4 (25.0-35.0) pg MCHC 34.0 (31.0-37.0) g/dL RDW 14.7 (11.5-15.5) % Plt Count 295 (150-450) k/uL MPV 7.8 Neutrophils % 86 % Lymphocytes % 8 % Monocytes % 5 % Eosinophils % 1 % Basophils % 0 % Neutrophils # 7.4 (1.3-7.7) k/uL Lymphocytes # 0.7 L (1.0-4.8) k/uL Monocytes # 0.5 (0-1.0) k/uL Eosinophils # 0.0 (0-0.7) k/uL Basophils # 0.0 (0-0.2) k/uL Macrocytosis Slight PT 10.5 (9.0-12.0) sec INR 1.0 (<1.2) APTT 22.9 (22.0-30.0) sec Sodium 136 L (137-145) mmol/L Potassium 3.5 (3.5-5.1) mmol/L Chloride 107 (98-107) mmol/L Carbon Dioxide 23 (22-30) mmol/L Anion Gap 6 mmol/L BUN 3 L (9-20) mg/dL Creatinine 0.57 L (0.66-1.25) mg/dL Est GFR (CKD-EPI)AfAm >90 (>60 ml/min/1.73 sqM) Est GFR (CKD-EPI)NonAf >90 (>60 ml/min/1.73 sqM) Glucose 121 H (74-99) mg/dL Plasma Lactic Acid Bandar (0.7-2.0) mmol/L Calcium 8.9 (8.4-10.2) mg/dL Magnesium 1.7 (1.6-2.3) mg/dL Total Bilirubin 1.5 H (0.2-1.3) mg/dL AST 86 H (17-59) U/L ALT 182 H (4-49) U/L Alkaline Phosphatase 294 H (38-126) U/L Troponin I (0.000-0.034) ng/mL Total Protein 5.8 L (6.3-8.2) g/dL Albumin 3.0 L (3.5-5.0) g/dL Coronavirus (PCR) (Not Detectd) 09/24/20 09/24/20 09/24/20 Range/Units 19:47 19:47 21:18 WBC (3.8-10.6) k/uL RBC (4.30-5.90) m/uL Hgb (13.0-17.5) gm/dL Hct (39.0-53.0) % MCV (80.0-100.0) fL MCH (25.0-35.0) pg MCHC (31.0-37.0) g/dL RDW (11.5-15.5) % Plt Count (150-450) k/uL MPV Neutrophils % % Lymphocytes % % Monocytes % % Eosinophils % % Basophils % % Neutrophils # (1.3-7.7) k/uL Lymphocytes # (1.0-4.8) k/uL Monocytes # (0-1.0) k/uL Eosinophils # (0-0.7) k/uL Basophils # (0-0.2) k/uL Macrocytosis PT (9.0-12.0) sec INR (<1.2) APTT (22.0-30.0) sec Sodium (137-145) mmol/L Potassium (3.5-5.1) mmol/L Chloride (98-107) mmol/L Carbon Dioxide (22-30) mmol/L Anion Gap mmol/L BUN (9-20) mg/dL Creatinine (0.66-1.25) mg/dL Est GFR (CKD-EPI)AfAm (>60 ml/min/1.73 sqM) Est GFR (CKD-EPI)NonAf (>60 ml/min/1.73 sqM) Glucose (74-99) mg/dL Plasma Lactic Acid Bandar 1.2 (0.7-2.0) mmol/L Calcium (8.4-10.2) mg/dL Magnesium (1.6-2.3) mg/dL Total Bilirubin (0.2-1.3) mg/dL AST (17-59) U/L ALT (4-49) U/L Alkaline Phosphatase (38-126) U/L Troponin I <0.012 (0.000-0.034) ng/mL Total Protein (6.3-8.2) g/dL Albumin (3.5-5.0) g/dL Coronavirus (PCR) Not Detected (Not Detectd) - EKG Data -: EKG Interpreted by [facility] EKG Comments: EKG obtained in 1935 shows normal sinus rhythm with a prolonged QT interval. Ventricular rate 97, SC interval 148, QRS duration 76, QT 378, QTC 480. No evidence of ST elevation or depression. - Radiology Data Radiology results: report reviewed, image reviewed Two-view x-ray of the chest is obtained. Report was reviewed in its entirety. Impression by Dr. Garcia shows new bilateral pleural effusions and right lower lobe pneumonia compared to old exam. No heart failure. Disposition Clinical Impression: Right lower lobe pneumonia, Small pleural effusion Disposition: HOME SELF-CARE Condition: Good Instructions (If sedation given, give patient instructions): Pleural Effusion (ED), Pneumonia (ED) Additional Instructions: Complete antibiotic prescriptions in full. Follow-up with the primary care physician for recheck in 1-2 days. Return for any new, worsening, or concerning symptoms. Prescriptions: Amoxic-Pot Clav 875-125Mg [Augmentin 875-125] 1 tab PO Q12HR #20 tablet Azithromycin [Zithromax Z-pack (6 tabs)] 0 mg PO DIRECTED #6 tab Is patient prescribed a controlled substance at d/c from ED?: No Referrals: Kerri Qiunones MD [Primary Care Provider] - 1-2 days Time of Disposition: 21:49
[2020-09-24 19:55] LABS: Basophils % (A) 0 %; Eosinophils % (A) 1 %; HCT 35.3 % (39.0-53.0); Lymphocytes # (A) 0.7 k/uL (1.0-4.8); Lymphocytes % (A) 8 %; MCH 34.4 pg (25.0-35.0); MCV 101.2 fL (80.0-100.0); Macrocytosis Slight; Mean Platelet Volume 7.8; Monocytes # (A) 0.5 k/uL (0-1.0); Monocytes % (A) 5 %; Neutrophils # (A) 7.4 k/uL (1.3-7.7); Neutrophils % (A) 86 %; Platelet Count 295 k/uL (150-450); RBC 3.49 m/uL (4.30-5.90); RDW 14.7 % (11.5-15.5); WBC 8.6 k/uL (3.8-10.6)
[2020-09-24 20:04] LABS: ALT 182 U/L (4-49); AST 86 U/L (17-59); African American GFR (CKD) >90 (>60 ml/min/1.73 sqM); Alkaline Phosphatase 294 U/L (38-126); Anion Gap 6 mmol/L; Blood Urea Nitrogen 3 mg/dL (9-20); Calcium 8.9 mg/dL (8.4-10.2); Carbon Dioxide 23 mmol/L (22-30); Chloride 107 mmol/L (98-107); Glucose 121 mg/dL (74-99); Magnesium 1.7 mg/dL (1.6-2.3); Non-African American GFR(CKD) >90 (>60 ml/min/1.73 sqM); Potassium 3.5 mmol/L (3.5-5.1); Sodium 136 mmol/L (137-145); Total Bilirubin 1.5 mg/dL (0.2-1.3); Total Protein 5.8 g/dL (6.3-8.2)
[2020-09-24 20:11] LABS: Partial Thromboplastin Time 22.9 sec (22.0-30.0); Prothrombin Time 10.5 sec (9.0-12.0)
--- NOTE | 2020-09-24 20:36 | XR ---
EXAMINATION TYPE: XR chest 2V DATE OF EXAM: 09/24/2020 COMPARISON: 07/19/2020 HISTORY: Short of breath TECHNIQUE: FINDINGS: There is bilateral blunting of the costophrenic angles. There is neural stimulator in the t horacic spine. There is no heart failure. There is some airspace infiltrate in the right lower lobe. There are no hilar masses. Mediastinum is normal. IMPRESSION: There are new bilateral pleural effusions and right lower lobe pneumonia compared to old exam. No heart failure.
[2020-09-24] MEDS ORDERED: AZITHROMYCIN 500 MG in SODIUM CHLORIDE 0.9% 250 ML IVPB STA (20:56)
[2020-09-24] MEDS ORDERED: AMOXIC-POT CLAV 875MG STARTER PACK 2 TAB BTL PO STA (21:17)
[2020-09-24] MEDS ORDERED: AZITHROMYCIN 500 MG TAB PO STA (21:17)
[2020-09-24 21:28] VITALS: BP 110/83; PULSE 92; RESP 16
[2020-09-25] MEDS ORDERED: AZITHROMYCIN 500 MG in SODIUM CHLORIDE 0.9% 250 ML IVPB SCH (09:00)
== END 2020-09-24 22:04 | disposition home or self-care (01) ==
LOC: EC 18:48
DX: J18.1 Lobar pneumonia, unspecified organism (principal); J90 Pleural effusion, not elsewhere classified; R10.13 Epigastric pain; R11.0 Nausea; J44.0 Chronic obstructive pulmonary disease with (acute) lower respiratory infection; N40.0 Benign prostatic hyperplasia without lower urinary tract symptoms; K21.9 Gastro-esophageal reflux disease without esophagitis; I10 Essential (primary) hypertension; M19.90 Unspecified osteoarthritis, unspecified site; F41.9 Anxiety disorder, unspecified; F32.9 Major depressive disorder, single episode, unspecified; E78.5 Hyperlipidemia, unspecified; G62.9 Polyneuropathy, unspecified; F17.200 Nicotine dependence, unspecified, uncomplicated; Z87.442 Personal history of urinary calculi; Z87.11 Personal history of peptic ulcer disease; Z87.19 Personal history of other diseases of the digestive system; Z20.822 Contact with and (suspected) exposure to COVID-19; Z79.51 Long term (current) use of inhaled steroids; Z79.899 Other long term (current) drug therapy; Z90.49 Acquired absence of other specified parts of digestive tract
CPT/HCPCS: 36415; 93005; 80053; 83605; 83735; 84484; 85025; 85610; 85730; 87635; 71046; 99285; 96374; 96376; 96372; J3250; J1170

== ENCOUNTER 2020-10-30 16:38 | Inpatient (IN) | payer MEDICARE, OTHER ==
[2020-10-30] MEDS ORDERED: SODIUM CHLORIDE 0.9% 1,000 ML IV STA (17:08)
[2020-10-30] MEDS ORDERED: ONDANSETRON 4 MG/2 ML VIAL IVP STA (17:08)
[2020-10-30] MEDS ORDERED: PANTOPRAZOLE 40 MG/10 ML VIAL IVP STA (17:09)
--- NOTE | 2020-10-30 17:11 | ED ---
General Adult HPI - General Chief complaint: Nausea/Vomiting/Diarrhea Stated complaint: Vomiting Time Seen by Provider: 10/30/20 17:08 Source: patient Mode of arrival: wheelchair Limitations: no limitations - History of Present Illness Initial comments: Patient presents to the ED complaining of having epigastric abdominal pain, nausea and vomiting since about midnight last night. Patient states that he has noticed streaks of blood in his emesis. Patient also states that he has a known pancreatic "cyst". Patient has a history of alcoholism, and he states that he has cut back on his alcohol consumption over the past 3 months, although he admits to drinking a glass of wine last night. Patient denies trauma or injury, fever or chills, headache, focal neuro deficit, chest pain, dyspnea, cough or cold symptoms, palpitations, dizziness, back or flank pain, diarrhea or constipation, bloody or melanotic stool, dysuria/hematuria/urinary frequency/ urinary symptoms, or any other symptoms or complaints. Patient denies illicit drug use. - Related Data Home Medications Medication Instructions Recorded Confirmed RX: Magnesium Oxide [Mag-Ox] 400 mg PO DAILY 09/18/17 09/22/20 Morphine Pain Pump 1 dose INTRATHECA CONTINUOUS 11/25/19 09/22/20 RX: Cyclobenzaprine HCl 10 mg PO BID PRN 11/25/19 09/22/20 RX: Gabapentin [Neurontin] 400 mg PO DAILY 11/25/19 09/22/20 RX: HYDROcodone/APAP 5-325MG 1 tab PO BID 11/25/19 09/22/20 [Onset 5-325] RX: Lipase/Protease/Amylase [Creon 48,000 units PO AC-TID 11/25/19 09/22/20 Dr 24,000 Units Capsule] RX: Metoprolol Tartrate [Lopressor] 25 mg PO BID 11/25/19 09/22/20 RX: Omeprazole [PriLOSEC] 40 mg PO DAILY 11/25/19 09/22/20 RX: Budesonide/Formoterol Fumarate 2 puff INHALATION RT-BID 06/14/20 09/22/20 [Symbicort 160-4.5 Mcg Inhaler] RX: Ergocalciferol (Vitamin D2) 1,250 mcg PO MO 06/14/20 09/22/20 [Drisdol (50,000 Iu)] RX: Furosemide [Lasix] 20 mg PO BID 09/22/20 09/22/20 Previous Rx's Medication Instructions Recorded RX: Pantoprazole Sodium [Protonix] 40 mg PO BID 30 Days #60 tablet. 09/16/20 RX: Simethicone 80 mg PO TID #30 tab.chew 09/16/20 Amoxic-Pot Clav 875-125Mg 1 tab PO Q12HR #20 tablet 09/24/20 [Augmentin 875-125] RX: Azithromycin [Zithromax Z-pack 0 mg PO DIRECTED #6 tab 09/24/20 (6 tabs)] Allergies Allergy/AdvReac Type Severity Reaction Status Date / Time No Known Allergies Allergy Verified 10/30/20 16:52 Review of Systems ROS Statement: Those systems with pertinent positive or pertinent negative responses have been documented in the HPI. ROS Other: All systems not noted in ROS Statement are negative. Past Medical History Past Medical History: COPD, GERD/Reflux, GI Bleed, Hyperlipidemia, Hypertension, Liver Disease, Osteoarthritis (OA), Pneumonia, Prostate Disorder Additional Past Medical History / Comment(s): Pt recently admitted to [facility] on 09/15/20 with abdominal pain/paraesophageal hernia or pancreatic pseudocyst-pt states he f/u at Dr. Kellogg's office and was told it is a pancreatic mass-waiting for further instructions. Other hx: ETOH abuse, recurrent pancreatitis, alcoholic hepatitis, chronic back pain, neuropathy bilateral feet and chronic urinary retention since back surgery, self caths prn, chronic L hydroureteronephrosis d/t reflux, MORPHINE PAIN PUMP L ABDOMIN, L shoulder pain/dislocation, hiatal hernia, PUD, upper and lower GI bleeds, BPH, pt states surgery to remove kidney stones. History of Any Multi-Drug Resistant Organisms: None Reported Past Surgical History: Back Surgery, Cholecystectomy, Orthopedic Surgery Additional Past Surgical History / Comment(s): EGDs, colonoscopy, low back titanium plate/rods/cages, spinal stimulator since removed, MORPHINE PAIN PUMP, bronchoscopy, surgery for kidney stones, bilateral knee arthroscopies, R 5th finger reattachment. Past Anesthesia/Blood Transfusion Reactions: No Reported Reaction Past Psychological History: Anxiety, Depression Smoking Status: Current every day smoker Past Alcohol Use History: None Reported Past Drug Use History: None Reported - Past Family History Father Family Medical History: Diabetes Mellitus Additional Family Medical History / Comment(s): Mother Family Medical History: Dementia, Hyperlipidemia, Hypertension Additional Family Medical History / Comment(s): Mother is living. General Exam Limitations: no limitations General appearance: alert, in no apparent distress Head exam: Present: atraumatic, normocephalic Eye exam: Present: normal appearance, EOMI ENT exam: Present: mucous membranes moist Neck exam: Present: other (Trachea is in midline) Respiratory exam: Present: normal lung sounds bilaterally. Absent: respiratory distress, wheezes, rales, rhonchi, stridor Cardiovascular Exam: Present: normal rhythm, tachycardia, normal heart sounds, other (Normal radial pulses bilaterally) GI/Abdominal exam: Present: soft, diminished bowel sounds, other (Moderate epigastric abdominal tenderness). Absent: guarding, rebound Extremities exam: Absent: tenderness, pedal edema, calf tenderness Back exam: Absent: CVA tenderness (R), CVA tenderness (L) Neurological exam: Present: alert, oriented X3. Absent: motor sensory deficit Psychiatric exam: Present: normal affect, normal mood Skin exam: Present: warm, dry, intact Course Vital Signs 10/30/20 10/30/20 10/30/20 16:50 17:08 18:44 Temperature 98.6 F Pulse Rate 125 H 115 H 116 H Respiratory 20 18 18 Rate Blood Pressure 92/63 121/80 109/76 O2 Sat by Pulse 92 L 93 L 95 Oximetry - Reevaluation(s) Reevaluation #1: 10/30/20 19:22 Patient denies development of any new symptoms while in the ED. Patient has not had any vomiting while in the ED. Patient remains alert and breathing comfortably. Patient's abdomen remains soft and without any surgical signs on examination. Patient is afebrile and without leukocytosis. Patient is aware of his test results, and he agrees with hospital admission at this time. 10/30/20 19:35 Case, H&P, test results and ED management were discussed with Dr. Regan. She accepts hospital admission. She agrees with GI consultation. She has no further recommendations at this time. EKG Findings - EKG Comments: EKG Findings:: Sinus tachycardia, ventricular rate of 118 bpm, no ectopy, normal AR and QRS intervals, normal QT interval, nonspecific ST and T-wave abnormality Medical Decision Making - Medical Decision Making Patient is afebrile and without leukocytosis. Patient has a nonsurgical abdominal exam. Patient is breathing comfortably in the ED. I do not suspect an emergent surgical condition at this time. Given the patient's CT finding of a right lower lobe pneumonia and reported vomiting, patient was given a dose of IV Zosyn in the ED for treatment of possible aspiration pneumonia. Given the patient's reported symptoms/hematemesis and CT findings, will admit the patient the hospital for further evaluation, GI consultation and observation. Dr. Regan has accepted hospital admission. - Lab Data Result diagrams: 10/30/20 17:29 10/30/20 17:29 Lab Results 10/30/20 10/30/20 10/30/20 Range/Units 17:29 17:29 17:29 WBC 8.6 (3.8-10.6) k/uL RBC 3.24 L (4.30-5.90) m/uL Hgb 11.0 L (13.0-17.5) gm/dL Hct 32.6 L (39.0-53.0) % MCV 100.7 H (80.0-100.0) fL MCH 34.0 (25.0-35.0) pg MCHC 33.8 (31.0-37.0) g/dL RDW 14.8 (11.5-15.5) % Plt Count 358 (150-450) k/uL MPV 7.7 Neutrophils % 84 % Lymphocytes % 9 % Monocytes % 6 % Eosinophils % 0 % Basophils % 0 % Neutrophils # 7.2 (1.3-7.7) k/uL Lymphocytes # 0.8 L (1.0-4.8) k/uL Monocytes # 0.5 (0-1.0) k/uL Eosinophils # 0.0 (0-0.7) k/uL Basophils # 0.0 (0-0.2) k/uL Macrocytosis Slight PT 11.6 (9.0-12.0) sec INR 1.1 (<1.2) APTT 23.2 (22.0-30.0) sec Sodium 136 L (137-145) mmol/L Potassium 3.4 L (3.5-5.1) mmol/L Chloride 96 L (98-107) mmol/L Carbon Dioxide 33 H (22-30) mmol/L Anion Gap 7 mmol/L BUN 8 L (9-20) mg/dL Creatinine 0.59 L (0.66-1.25) mg/dL Est GFR (CKD-EPI)AfAm >90 (>60 ml/min/1.73 sqM) Est GFR (CKD-EPI)NonAf >90 (>60 ml/min/1.73 sqM) Glucose 113 H (74-99) mg/dL Plasma Lactic Acid Bandar (0.7-2.0) mmol/L Calcium 8.3 L (8.4-10.2) mg/dL Magnesium 1.9 (1.6-2.3) mg/dL Total Bilirubin 0.4 (0.2-1.3) mg/dL AST 22 (17-59) U/L ALT 13 (4-49) U/L Alkaline Phosphatase 119 (38-126) U/L Total Protein 5.1 L (6.3-8.2) g/dL Albumin 2.4 L (3.5-5.0) g/dL Amylase 32 (30-110) U/L Lipase 50 (23-300) U/L Serum Alcohol <10 mg/dL 10/30/20 Range/Units 19:13 WBC (3.8-10.6) k/uL RBC (4.30-5.90) m/uL Hgb (13.0-17.5) gm/dL Hct (39.0-53.0) % MCV (80.0-100.0) fL MCH (25.0-35.0) pg MCHC (31.0-37.0) g/dL RDW (11.5-15.5) % Plt Count (150-450) k/uL MPV Neutrophils % % Lymphocytes % % Monocytes % % Eosinophils % % Basophils % % Neutrophils # (1.3-7.7) k/uL Lymphocytes # (1.0-4.8) k/uL Monocytes # (0-1.0) k/uL Eosinophils # (0-0.7) k/uL Basophils # (0-0.2) k/uL Macrocytosis PT (9.0-12.0) sec INR (<1.2) APTT (22.0-30.0) sec Sodium (137-145) mmol/L Potassium (3.5-5.1) mmol/L Chloride (98-107) mmol/L Carbon Dioxide (22-30) mmol/L Anion Gap mmol/L BUN (9-20) mg/dL Creatinine (0.66-1.25) mg/dL Est GFR (CKD-EPI)AfAm (>60 ml/min/1.73 sqM) Est GFR (CKD-EPI)NonAf (>60 ml/min/1.73 sqM) Glucose (74-99) mg/dL Plasma Lactic Acid Bandar 1.0 (0.7-2.0) mmol/L Calcium (8.4-10.2) mg/dL Magnesium (1.6-2.3) mg/dL Total Bilirubin (0.2-1.3) mg/dL AST (17-59) U/L ALT (4-49) U/L Alkaline Phosphatase (38-126) U/L Total Protein (6.3-8.2) g/dL Albumin (3.5-5.0) g/dL Amylase (30-110) U/L Lipase (23-300) U/L Serum Alcohol mg/dL - Radiology Data CT abdomen/pelvis with IV contrast: There is significant fatty infiltration of the liver which appears new compared to recent exam. Dilated stomach with fluid that could relate to gastroparesis or gastric outlet obstruction. Large cystic fluid collection at the esophageal hiatus could be large pseudocyst that is slightly smaller than old exam. Left renal cortical atrophy and mild left-sided hydronephrosis and hydroureter could relate to chronic obstruction. There is a new small right pleural effusion and right lower lobe interstitial pneumonia compared to old exam. Disposition Clinical Impression: Abdominal pain, Nausea and vomiting, Anemia, Pneumonia, Pancreatic pseudocyst Narrative: Reported hematemesis Disposition: ADMITTED IP TO THIS HOSP Condition: Stable Is patient prescribed a controlled substance at d/c from ED?: No Referrals: Kerri Quinones MD [Primary Care Provider] - 1-2 days Time of Disposition: 19:37
[2020-10-30 17:34] LABS: Basophils % (A) 0 %; Eosinophils % (A) 0 %; HCT 32.6 % (39.0-53.0); Lymphocytes # (A) 0.8 k/uL (1.0-4.8); Lymphocytes % (A) 9 %; MCHC 33.8 g/dL (31.0-37.0); MCV 100.7 fL (80.0-100.0); Macrocytosis Slight; Mean Platelet Volume 7.7; Monocytes # (A) 0.5 k/uL (0-1.0); Monocytes % (A) 6 %; Neutrophils # (A) 7.2 k/uL (1.3-7.7); Neutrophils % (A) 84 %; Platelet Count 358 k/uL (150-450); RBC 3.24 m/uL (4.30-5.90); RDW 14.8 % (11.5-15.5); WBC 8.6 k/uL (3.8-10.6)
[2020-10-30 17:43] LABS: ALT 13 U/L (4-49); AST 22 U/L (17-59); African American GFR (CKD) >90 (>60 ml/min/1.73 sqM); Albumin 2.4 g/dL (3.5-5.0); Alcohol <10 mg/dL; Alkaline Phosphatase 119 U/L (38-126); Amylase 32 U/L (30-110); Anion Gap 7 mmol/L; Blood Urea Nitrogen 8 mg/dL (9-20); Calcium 8.3 mg/dL (8.4-10.2); Carbon Dioxide 33 mmol/L (22-30); Chloride 96 mmol/L (98-107); Glucose 113 mg/dL (74-99); Lipase 50 U/L (23-300); Magnesium 1.9 mg/dL (1.6-2.3); Non-African American GFR(CKD) >90 (>60 ml/min/1.73 sqM); Potassium 3.4 mmol/L (3.5-5.1); Sodium 136 mmol/L (137-145); Total Bilirubin 0.4 mg/dL (0.2-1.3); Total Protein 5.1 g/dL (6.3-8.2)
[2020-10-30 17:50] LABS: INR 1.1 (<1.2); Partial Thromboplastin Time 23.2 sec (22.0-30.0); Prothrombin Time 11.6 sec (9.0-12.0)
[2020-10-30] MEDS ORDERED: MORPHINE SULFATE 4 MG/ML SYRINGE IVP STA ×2 (17:52→19:12)
--- NOTE | 2020-10-30 18:54 | CT ---
EXAMINATION TYPE: CT abdomen pelvis w con DATE OF EXAM: 10/30/2020 COMPARISON: 09/15/2020 HISTORY: Upper abdominal pain and vomiting. CT DLP: 811.8 mGycm Automated exposure control for dose reduction was used. CONTRAST: Performed with IV Contrast, patient injected with 100ml mL of Isovue 300. Images obtained from the diaphragm to the floor the pelvis with IV contrast. There is small right pleural effusion. Lung bases show no pulmonary consolidation. There is mild subs egmental atelectasis and interstitial density right lower lobe. There is fatty infiltration of the liver. There are clips from cholecystectomy. There is 6 cm area of increased density in the liver at the sharon hepatis that is probably region of sparing of the fatty liver infiltration. The spleen is intact. There is dilated fluid-filled stomach. There is a fluid col lection adjacent to the distal esophagus posteriorly that appears to extend into the abdomen to the b linden of the pancreas. This could be unusual large pseudocyst. There is some pancreatic atrophy. The bile ducts are not dilated. There are clips from cholecystectomy. There is no adrenal mass. There is significant cortical thinning left kidney. Right kidney show satisfactory contrast opacification. There is mildly dilated left ureter. No ureteral calculus definitely seen. The bladder distends smoo thly. There is no inguinal hernia. There is device implanted over the left anterior abdomen. There is multilevel posterior fusion surger y in the lower lumbar spine. There is neural stimulator in the thoracic and lumbar spine. There is no mesenteric edema. There is no ascites or free air. There is no bowel obstruction.. Lumbar vertebra show fairly normal alignment. There is 4 mm L5-S1 spondylolisthesis. The bony pelvis is int act. The hip joints are intact. IMPRESSION: There is significant fatty infiltration of the liver which appears new compared to recent exam. Dilat ed stomach with fluid that could relate to gastroparesis or gastric outlet obstruction. Large cystic fluid collection at the esophageal hiatus could be a large pseudocyst that is slightly s maller than old exam. Left renal cortical atrophy and mild left-sided hydronephrosis and hydroureter could relate to chroni c obstruction. There is a new small right pleural effusion and right lower lobe interstitial pneumoni a compared to old exam.
[2020-10-30] MEDS ORDERED: PIPERACILLIN-TAZOBACTAM 3.375 GM in SODIUM CHLORIDE 0.9% 100 ML IVPB STA (19:02)
[2020-10-30] MEDS ORDERED: NALOXONE 0.4 MG/ML 1 ML VIAL IV PRN (19:37)
[2020-10-30] MEDS ORDERED: ONDANSETRON 4 MG/2 ML VIAL IVP PRN (19:37)
[2020-10-30] MEDS: SODIUM CHLORIDE 0.9% 1,000 ML IV SCH (19:48)
[2020-10-30] MEDS ORDERED: CYCLOBENZAPRINE 10 MG TAB PO PRN (22:46)
[2020-10-31] MEDS: HYDROmorphone 0.5 MG/0.5 ML SYRINGE IVP PRN ×3 (00:54→06:04)
[2020-10-31 01:55] LABS: Glucose,Whole Blood 102 mg/dL (75-99)
[2020-10-31] MEDS ORDERED: PANTOPRAZOLE 40 MG/10 ML VIAL IVP ONE (02:39)
[2020-10-31] MEDS ORDERED: LORazepam 2 MG/ML INJ IV STA (02:39)
[2020-10-31] MEDS ORDERED: METOCLOPRAMIDE 5 MG/ML 2 ML VIAL IVP STA (02:39)
[2020-10-31] MEDS ORDERED: LORazepam 2 MG/ML INJ IV PRN ×2 (02:48)
--- NOTE | 2020-10-31 03:05 | P.EN ---
A team note RN called A team for acute hypoxemia and increase oxygen requirement patient has history of alcohol abuse , claims that last drink was 3 days ago, presented with nausea , vomiting, and abd pain , CT abd showed pseudocyst in pancrease that was seen before, lipase was unremarkable . patient vomited suddenly large amount and soiled himself and bed, and was brownish dark in color, then immediately had increase in oxygen requirement and tachycardia worsening and feeling cold. patient was placed on higher oxygen delivery , currently on nasal canula and non rebrether. satting in low 90s. lungs , decrease breath sounds right lower lung heart tachycardia abd soft, with tenderness in epigastric region BP 130s/75s, hr 130s, patient feeling cold . CXR showed right lower lobe infilterate, suspected aspiration assessment acute hypoxemic respiratory failure , suspected acute aspiration secondary to vomiting acute recurrent pancreatitis , rule out GI bleed, hemoglobin stable alcohol abuse with possible withdrawal syndrome plan increase supplemental oxygen , on non rebreather, currently oxygen sat 92% CXR reviewed ATIVAN per CIWA 1 L normal saline bolus , then continue with normal saline continue with zosyn protonix 80 mg IV once , then continue with PO daily monitor hemoglobin , to rule out GI bleed replace K check lactic acid 35 minutes were spent in critical care time in the care of this patient
[2020-10-31 03:21] LABS: Basophils % (A) 0 %; Eosinophils % (A) 1 %; HCT 31.9 % (39.0-53.0); Lymphocytes # (A) 0.4 k/uL (1.0-4.8); Lymphocytes % (A) 7 %; MCHC 31.5 g/dL (31.0-37.0); MCV 104.9 fL (80.0-100.0); Macrocytosis Moderate; Mean Platelet Volume 7.7; Monocytes # (A) 0.4 k/uL (0-1.0); Monocytes % (A) 6 %; Neutrophils # (A) 5.9 k/uL (1.3-7.7); Neutrophils % (A) 86 %; Platelet Count 326 k/uL (150-450); RBC 3.05 m/uL (4.30-5.90); RDW 15.3 % (11.5-15.5); WBC 6.9 k/uL (3.8-10.6)
[2020-10-31] MEDS: POTASSIUM CHLORIDE 10 MEQ in WATER FOR INJECTION 1 100ML.BAG IVPB SCH ×4 (03:43→11:13)
[2020-10-31] MEDS: PIPERACILLIN-TAZOBACTAM 3.375 GM in SODIUM CHLORIDE 0.9% 100 ML IVPB SCH ×3 (03:44→20:35)
[2020-10-31] MEDS: LORazepam 2 MG/ML INJ IV PRN ×2 (04:14→04:55)
--- NOTE | 2020-10-31 04:34 | XR ---
EXAM: XR Chest, 1 View CLINICAL HISTORY: ITS.REASON XR Reason: Aspiration TECHNIQUE: Frontal view of the chest. COMPARISON: Prior chest x-ray and CT from 07/19/2020 FINDINGS: Lungs: Patchy airspace disease in the right lower lung, new since the prior. Pleural space: Small right pleural effusion. No pneumothorax. Heart: Unremarkable. No cardiomegaly. Mediastinum: Unremarkable. Bones/joints: Unremarkable. Tubes, lines and devices: Spinal stimulator as on the prior. IMPRESSION: Patchy airspace disease in the right lower lung, new since the prior. Correlates with aspiration or other pneumonia. Consider follow-up to ensure clearing.
[2020-10-31 05:04] LABS: ABG Base Excess 4.4 mmol/L; ABG HCO3 28 mmol/L (21-25); ABG Oxygen Saturation 78.8 % (94-97); ABG PCO2 39 mmHg (35-45); ABG PH 7.47 (7.35-7.45); ABG TCO2 29 mmol/L (19-24); Allen Test Performed? Yes
[2020-10-31 05:27] LABS: Glucose,Whole Blood 96 mg/dL (75-99)
[2020-10-31 05:32] LABS: ABG PO2 45 mmHg (83-108)
--- NOTE | 2020-10-31 06:17 | XR ---
EXAM: XR Chest, 1 View CLINICAL HISTORY: ITS.REASON XR Reason: NG tube placement TECHNIQUE: Frontal view of the chest. COMPARISON: 10/31/2020, earlier study. FINDINGS: Lungs: Consolidative change of the right lung base most suggestive of pneumonia. Pleural space: Unremarkable. No pneumothorax. Heart: Unremarkable. No cardiomegaly. Mediastinum: Unremarkable. Bones/joints: Osteopenia. Tubes, lines and devices: NG tube is coiled upon itself within the esophagus with its tip at the thoracic inlet. NG tube should be removed and reinserted. Other findings: Hypoaeration. IMPRESSION: 1. NG tube is coiled upon itself within the esophagus with its tip located at the thoracic inlet. 2. The NG tube should be withdrawn and reinserted. 3. Hypoaeration. 4. Consolidative change of the right lung base is again noted suggestive of pneumonia. 5. Osteopenia. <MYCVCSECTION> Communications: 10/31/20 06:44 Call Doctor Regarding Above results, called Dr. Murray on 10/31 06:44 (-04:00)
[2020-10-31] MEDS ORDERED: propofoL 100 ML IV ONE (06:37)
[2020-10-31 06:57] LABS: Appearance,Urine Cloudy (Clear); Bacteria,Urine Occasional /hpf; Bilirubin,Urine Negative (Negative); Blood,Urine Negative (Negative); Budding Yeast,Urine Many /hpf; Color,Urine Yellow; Glucose,Urine (UA) Negative (Negative); Hyaline Casts,Urine 27 /lpf (0-2); Ketones,Urine 1+ (Negative); Leukocyte Esterase,Urine Large (Negative); Mucus,Urine Rare /hpf; Nitrite,Urine Negative (Negative); Protein,Urine Trace (Negative); RBC,Urine 1 /hpf (0-5); Specific Gravity,Urine 1.042 (1.001-1.035); Urobilinogen,Urine <2.0 mg/dL (<2.0); WBC,Urine 118 /hpf (0-5)
[2020-10-31 07:00] LABS: Glucose,Whole Blood 118 mg/dL (75-99)
[2020-10-31] MEDS ORDERED: PANTOPRAZOLE 40 MG TABLET PO SCH (07:30)
--- NOTE | 2020-10-31 07:33 | XR ---
EXAMINATION TYPE: XR chest 1V portable at 0715 hours DATE OF EXAM: 10/31/2020 Comparison: Exam earlier today at 0548 hours Clinical History: 50-year-old male Tube placement Findings: ET tube satisfactory. NG tube has been readjusted and is now satisfactory. Spinal stimulator array ce ntered along the mid to lower thoracic spinal canal. Cholecystectomy clips. There is suggestion of tr rachael effusions. Some septal lines at the periphery of the right base. Consolidation throughout the rig ht lung and left infrahilar region. Impression: 1. Satisfactory interval repositioning of the NG tube. 2. Trace effusions and bilateral perihilar and basilar opacities, right greater than left. Consider C HF versus aspiration versus pneumonia.
[2020-10-31] MEDS: SODIUM CHLORIDE 0.9% 1,000 ML IV SCH ×2 (07:57→15:54)
[2020-10-31] MEDS ORDERED: SYMBICORT 160-4.5 MCG INHALER INHALATION SCH (08:00)
[2020-10-31] MEDS: FORMOTEROL FUMARATE 20 MCG/2 ML NEBU INHALATION SCH ×2 (08:07→19:34)
[2020-10-31] MEDS: IPRATROPIUM-ALBUTEROL 3 ML NEB INHALATION SCH ×5 (08:07→23:13)
[2020-10-31] MEDS: BUDESONIDE 1 MG/2 ML NEBU INHALATION SCH ×2 (08:07→19:34)
[2020-10-31] MEDS ORDERED: METOPROLOL TARTRATE 25 MG TAB PO SCH (09:00)
[2020-10-31] MEDS ORDERED: SIMETHICONE 80 MG CHEWABLE PO SCH (09:00)
[2020-10-31] MEDS ORDERED: FUROSEMIDE 20 MG TAB PO SCH (09:00)
[2020-10-31] MEDS ORDERED: HYDROcodone/APAP 5-325MG 1 EACH TAB PO SCH (09:00)
[2020-10-31] MEDS ORDERED: NON FORMULARY DRUG (Omeprazole 40 MG Capsule.Dr) PO SCH (09:00)
[2020-10-31] MEDS: SODIUM CHLORIDE 0.9% 1,000 ML IV ONE ×3 (09:04→09:22)
[2020-10-31] MEDS ORDERED: SODIUM CHLORIDE 0.9% 1,000 ML IV ONE ×2 (09:04→10:11)
[2020-10-31] MEDS ORDERED: CISATRACURIUM 2 MG/ML 5 ML VIAL IV ONE (09:05)
[2020-10-31 09:07] LABS: Basophils # (A) 0.01 X 10*3/uL (0.00-0.10); Basophils % (A) 0.1 %; Eosinophils # (A) 0 X 10*3/uL (0.04-0.35); Eosinophils % (A) 0 %; HCT 28.9 % (39.6-50.0); HGB 9.2 g/dL (13.0-17.0); Lymphocytes # (A) 0.39 X 10*3/uL (0.90-5.00); Lymphocytes % (A) 4.8 %; MCH 33.3 pg (27.0-32.0); MCHC 31.8 g/dL (32.0-37.0); MCV 104.7 fL (80.0-97.0); Mean Platelet Volume 10.6 fL (9.5-12.2); Monocytes # (A) 0.72 X 10*3/uL (0.20-1.00); Monocytes % (A) 8.9 %; Neutrophils # (A) 6.96 X 10*3/uL (1.80-7.70); Neutrophils % (A) 85.7 %; Platelet Count 385 X 10*3/uL (140-440); RBC 2.76 X 10*6/uL (4.40-5.60); RDW 15.4 % (11.5-14.5); WBC 8.12 X 10*3/uL (4.50-10.00)
--- NOTE | 2020-10-31 10:07 | XR ---
EXAMINATION TYPE: XR chest 1V portable DATE OF EXAM: 10/31/2020 Comparison: 10/31/2020 Clinical History: 50-year-old male confirm line placement Findings: ET tube is satisfactory. NG tube courses below the diaphragm. Heart normal size. There is hazy densit y at the left base that could represent a layering small left effusion. Retrocardiac and prominent ri ght lung opacities persist. Left subclavian CVC tip in the upper right atrium. Spinal stimulator arra y along the mid to lower thoracic spinal canal. Impression: Supine exam. There may be a small layering left pleural effusion. Interval left subclavian CVC tip in the upper right atrium. Consolidation throughout the right lung and retrocardiac region persists.
[2020-10-31] MEDS: PANTOPRAZOLE 40 MG/10 ML VIAL IVP SCH ×2 (10:08→20:36)
[2020-10-31] MEDS: CHLORHEXIDINE GLUCONATE 15 ML CUP MUCOUS MEM SCH ×2 (10:08→20:35)
[2020-10-31 10:10] LABS: Albumin 2.3 g/dL (3.80-4.90); Albumin/Globulin Ratio 0.96 (1.60-3.17); Anion Gap 10.5 mmol/L (4.00-12.00); BUN/Creat Ratio 13.33 Ratio (12.00-20.00); Calcium 7.3 mg/dL (8.7-10.3); Carbon Dioxide 27.5 mmol/L (21.6-31.8); Globulin 2.4 g/dL (1.6-3.3); Non-African American GFR(CKD) 115.6 (60.0-200.0); Potassium 3.5 mmol/L (3.5-5.5); Total Bilirubin 0.8 mg/dL (0.2-1.2); Total Protein 4.7 g/dL (6.2-8.2)
[2020-10-31] MEDS: GABAPENTIN 400 MG CAP PO SCH ×3 (10:10→20:36)
[2020-10-31] MEDS: MAGNESIUM OXIDE 400 MG TAB PO SCH (10:10)
[2020-10-31] MEDS: NOREPINEPHRINE 8 MG in SODIUM CHLORIDE 0.9% 250 ML IV SCH (10:39)
[2020-10-31 11:03] LABS: ABG Base Excess -1.6 mmol/L; ABG HCO3 23 mmol/L (21-25); ABG Oxygen Saturation 99.6 % (94-97); ABG PCO2 35 mmHg (35-45); ABG PH 7.42 (7.35-7.45); ABG PO2 232 mmHg (83-108); ABG TCO2 24 mmol/L (19-24)
[2020-10-31 11:05] LABS: Allen Test Performed? no
[2020-10-31] MEDS: LIPASE 5,000/PROTEASE 17,000/AMYLASE 24,000 PO SCH ×3 (11:13→19:04)
--- NOTE | 2020-10-31 11:28 | PCN ---
PROCEDURE NOTE OPERATORS: Dr. Samuel and Dr. Dalal. PROCEDURE PERFORMED: Right radial art line. PREOP DIAGNOSIS: Frequent blood draws and blood gas monitoring. POSTOP DIAGNOSIS: Frequent blood draws and blood gas monitoring. ARTERIAL LINE PLACEMENT: Indications: Hemodynamic monitoring. A time-out was completed verifying correct patient, procedure, site, positioning, and implant(s) or special equipment if applicable. Javi's test was performed to ensure adequate perfusion. The patient's right wrist was prepped and draped in sterile fashion. 1% Lidocaine was used to anesthetize the area. An 18G Arrow arterial line was introduced into the radial artery. The catheter was threaded over the guide wire and the needle was removed with appropriate pulsatile blood return. Blood loss was minimal. The catheter was then sutured in place to the skin and a sterile dressing applied. Perfusion to the extremity distal to the point of catheter insertion was checked and found to be adequate. The patient tolerated the procedure well and there were no complications. We used the right radial artery. There was no immediate complication. The patient tolerated the procedure well. The catheter was sutured in place. A sterile dressing was applied by the nurse. There was good blood pressure reading and waveform. MMODL / IJN: [id number] /
--- NOTE | 2020-10-31 11:28 | PCN ---
PROCEDURE NOTE FINISHER [employer]S: Dr. Samuel and Dr. Dalal. LEFT SUBCLAVIAN TRIPLE-LUMEN CATHETER: PREOP DIAGNOSIS: Administration of fluids and pressors. POSTOP DIAGNOSIS: Administration of fluids and pressors. TRIPLE LUMEN CATHETER PLACEMENT: Indication: Hemodynamic monitoring/Intravenous access. A time-out was completed verifying correct patient, procedure, site, positioning, and implant(s) or special equipment if applicable. The patient was placed in a dependent position appropriate for triple lumen catheter placement based on the vein to be cannulated. The patient's left shoulder was prepped and draped in sterile fashion. 1% Lidocaine was used to anesthetize the surrounding skin area. A triple lumen 9F Cordis catheter was introduced into the subclavian using Seldinger technique. The catheter was threaded smoothly over the guide wire and appropriate blood return was obtained. Each lumen of the catheter was evacuated of air and flushed with sterile saline. The catheter was then sutured in place to the skin and a sterile dressing applied. Perfusion to the extremity distal to the point of catheter insertion was checked and found to be adequate. We used the left subclavian vein. There was no immediate complication. There was good blood return from all 3 ports. The tip of catheter was seen in the area of the right atrium. There was no pneumothorax. The catheter was sutured in place. Sterile dressing applied by the nurse. There was no immediate complication. The patient tolerated the procedure well. MMODL / IJN: [id number] /
--- NOTE | 2020-10-31 11:38 | P.CNPUL ---
History of Present Illness Consult date: 10/31/20 Requesting physician: Celestina Regan Reason for consult: hypoxemia Chief complaint: Respiratory failure, aspiration pneumonia. History of present illness: Pulmonary consult dated 10/31/2020. 50-year-old male, who was evaluated in the emergency department, on October 30. He came into the emergency department, complaining of epigastric and abdominal discomfort, nausea, and vomiting. It began the night before. He apparently had some blood in his emesis. The patient does have a history of chronic alcohol abuse, and apparently has cut way back on his alcohol consumption over the last number of months. He did admit to drinking a glass a wine the night he came into the emergency room. The patient was admitted to the hospital. Early this morning, I was notified by the hospitalist, and the patient had likely aspirated, and developed hypoxemic respiratory failure. We decided to have the patient intubated by anesthesia, and transferred to the intensive care unit. He was seen by me this morning in the intensive care unit along with my nurse practitioner, Dr. Dalal. The patient was on the ventilator. Ventilator settings include the volume assist control mode, rate of 20, tidal volume 450, FiO2 100%, PEEP of 5. Prior to intubation, his blood gases showed a pO2 45, pCO2 39, and pH 7.47. Patient's on saline in the form of a bolus, and propofol at 70 mcg/kg/m. We placed a right radial art line in the patient, along with a left subclavian triple-lumen catheter. Current laboratory data includes a white count of 8.12, hemoglobin 9.2, hematocrit 28.9, and platelet count 385,000. Blood gases after placement of lines show a PaO2 of 232, pCO2 35, and a pH 7.42. The FiO2 was dropped down to 50%. Sodium potassium chloride CO2 all normal. Anion gap is 11. BUN 8, creatinine 0.6. Lactic acid was initially 2.1, and repeat was 2.7. Urine was suspicious for a urinary tract infection. Recent chest x-ray shows a left subclavian triple-lumen catheter. There was no complication or pneumothorax. In addition, there was consolidation throughout the right lung, consistent with the aspiration pneumonia. Review of Systems Review of systems cannot be obtained. When I saw the patient he was ready intubated. He apparently came in with nausea, vomiting, and abdominal pain. He likely aspirated on the floor. This is why he is in the ICU on the ventilator. Past Medical History Past Medical History: COPD, GERD/Reflux, GI Bleed, Hyperlipidemia, Hypertension, Liver Disease, Osteoarthritis (OA), Pneumonia, Prostate Disorder Additional Past Medical History / Comment(s): Pt recently admitted to [facility] on 09/15/20 with abdominal pain/paraesophageal hernia or pancreatic pseudocyst-pt st ates he f/u at Dr. Kellogg's office and was told it is a pancreatic mass-waiting for further instructions. Other hx: ETOH abuse, recurrent pancreatitis, alcoholic hepatitis, chronic back pain, neuropathy bilateral feet and chronic urinary retention since back surgery, self caths prn, chronic L hyd roureteronephrosis d/t reflux, MORPHINE PAIN PUMP L ABDOMIN, L shoulder pain/dislocation, hiatal hernia, PUD, upper and lower GI bleeds, BPH, pt states surgery to remove kidney stones. History of Any Multi-Drug Resistant Organisms: None Reported Past Surgical History: Back Surgery, Cholecystectomy, Orthopedic Surgery Additional Past Surgical History / Comment(s): EGDs, colonoscopy, low back titanium plate/rods/cages, spinal stimulator since removed, MORPHINE PAIN PUMP, bronchoscopy, surgery for kidney stones, bilateral knee arthroscopies, R 5th finger reattachment. Past Anesthesia/Blood Transfusion Reactions: No Reported Reaction Past Psychological History: Anxiety, Depression Additional Psychological History / Comment(s): PT LIVES AT HOME WITH in a 2 story home that has 3 porch steps/7 steps to 2nd floor.. 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 NO SERVICE.. occasionally uses either cane, walker or w/c also has shower chair and raised toilet seat. He does drive. Smoking Status: Current every day smoker Past Alcohol Use History: Abuse Additional Past Alcohol Use History / Comment(s): started smoking at age 14 Smokes 2 packs per day; ETOH ABUSE-patient states he has past hx of heavy drinking but states he has not drank any alcohol in past 4 weeks. 10/30/20 Pt states does not drink anymore, last drink 2 days ago. "Used to drink 3-30 packs" of beer daily Past Drug Use History: None Reported Additional Drug Use History / Comment(s): Pt denies marijuana/street drug use. - Past Family History Father Family Medical History: Diabetes Mellitus Additional Family Medical History / Comment(s): Mother Family Medical History: Dementia, Hyperlipidemia, Hypertension Additional Family Medical History / Comment(s): Mother is living. Medications and Allergies Home Medications Medication Instructions Recorded Confirmed Type Magnesium Oxide [Mag-Ox] 400 mg PO DAILY 09/18/17 10/30/20 History Cyclobenzaprine HCl 10 mg PO BID PRN 11/25/19 10/30/20 History Gabapentin [Neurontin] 400 mg PO TID 11/25/19 10/30/20 History HYDROcodone/APAP 5-325MG [[place] 1 tab PO BID 11/25/19 10/30/20 History 5-325] Lipase/Protease/Amylase [[place] 48,000 units PO AC-TID 11/25/19 10/30/20 History 24,000 Units Capsule] Metoprolol Tartrate [Lopressor] 25 mg PO BID 11/25/19 10/30/20 History Morphine Pain Pump 1 dose INTRATHECA CONTINUOUS 11/25/19 10/30/20 History Omeprazole [PriLOSEC] 40 mg PO DAILY 11/25/19 10/30/20 History Budesonide/Formoterol Fumarate 2 puff INHALATION RT-BID 06/14/20 10/30/20 History [Symbicort 160-4.5 Mcg Inhaler] Ergocalciferol (Vitamin D2) 1,250 mcg PO MO 06/14/20 10/30/20 History [Drisdol (50,000 Iu)] Pantoprazole Sodium [Protonix] 40 mg PO BID 30 Days #60 tablet.dr 09/16/20 10/30/20 Rx Simethicone 80 mg PO TID #30 tab.chew 09/16/20 10/30/20 Rx Furosemide [Lasix] 20 mg PO BID 09/22/20 10/30/20 History Allergies Allergy/AdvReac Type Severity Reaction Status Date / Time No Known Allergies Allergy Verified 10/30/20 20:21 Physical Exam Osteopathic Statement: *. No significant issues noted on an osteopathic structural exam other than those noted in the History and Physical/Consult. Vitals: Vital Signs Temp Pulse Pulse Pulse Resp BP BP 10/31/20 08:37 118 H 10/31/20 08:25 117 H 10/31/20 08:24 117 H 10/31/20 08:10 118 H 10/31/20 07:15 99.5 F 140 H 43 H 132/91 10/31/20 05:20 10/31/20 04:50 10/31/20 02:50 10/31/20 01:35 97.5 F L 133 H 42 H 143/84 10/30/20 20:47 99.2 F 125 H 17 96/62 10/30/20 18:44 116 H 18 109/76 10/30/20 17:08 115 H 18 121/80 10/30/20 16:50 98.6 F 125 H 20 92/63 Pulse Ox 10/31/20 08:37 10/31/20 08:25 10/31/20 08:24 10/31/20 08:10 10/31/20 07:15 93 L 10/31/20 05:20 94 L 10/31/20 04:50 86 L 10/31/20 02:50 93 L 10/31/20 01:35 93 L 10/30/20 20:47 92 L 10/30/20 18:44 95 10/30/20 17:08 93 L 10/30/20 16:50 92 L Intake and Output 10/30/20 10/31/20 10/31/20 22:59 06:59 14:59 Intake Total 2.136 64.592 Balance 2.136 64.592 Intake: Intake, IV Titration 2.136 64.592 Amount propofoL 1,000 mg In 2.136 64.592 Empty Bag 1 bag @ Titrate IV .Q0M [facility] Rx#: [id number] Other: Weight 71.214 kg No acute distress, sedated on propofol, with an orally placed endotracheal tube. HEENT examination is grossly unremarkable. Neck supple. Full range of motion. No adenopathy thyromegaly or neck vein distention. Cardiovascular examination reveals regular rhythm rate. S1-S2 normal. No S3 or S4. No discernible murmur noted. Heart sounds are distant. Heart rate 118 bpm. Lungs reveal coarse bilateral breath sounds. There is diffuse coarse rhonchi. No wheezes or crackles. Breath sounds equal. Abdomen soft bowel sounds are heard. No masses or tenderness. Extremities are intact. No cyanosis clubbing or edema. Skin is without rash or lesion. Neurologic examination could not be assessed because of patient's currently heavily sedated. Results - Laboratory Findings CBC and BMP: 10/31/20 05:21 10/31/20 05:21 ABG ABG pH 7.42 (7.35-7.45) 10/31/20 10:59 ABG pCO2 35 mmHg (35-45) 10/31/20 10:59 ABG pO2 232 mmHg (83-108) H 10/31/20 10:59 ABG O2 Saturation 99.6 % (94-97) H 10/31/20 10:59 PT/INR, D-dimer PT 11.6 sec (9.0-12.0) 10/30/20 17:29 INR 1.1 (<1.2) 10/30/20 17:29 Abnormal lab findings: Abnormal Labs 10/30/20 10/30/20 10/31/20 17:29 17:29 01:52 RBC 3.24 L Hgb 11.0 L Hct 32.6 L MCV 100.7 H MCH MCHC RDW Lymphocytes # 0.8 L Eosinophils # ABG pH ABG pO2 ABG HCO3 ABG Total CO2 ABG O2 Saturation Sodium 136 L Potassium 3.4 L Chloride 96 L Carbon Dioxide 33 H BUN 8 L Creatinine 0.59 L Glucose 113 H POC Glucose (mg/dL) 102 H Plasma Lactic Acid [place] Calcium 8.3 L AST Alkaline Phosphatase Total Protein 5.1 L Albumin 2.4 L Albumin/Globulin Ratio Ur Specific [place] Urine Protein Urine Ketones Ur Leukocyte Esterase Urine WBC Urine WBC Clumps Urine Bacteria Hyaline Casts Urine Mucus Urine Yeast (Budding) 10/31/20 10/31/20 10/31/20 03:01 05:00 05:21 RBC 3.05 L 2.76 L Hgb 10.0 L 9.2 L Hct 31.9 L 28.9 L MCV 104.9 H 104.7 H MCH 33.3 H MCHC 31.8 L RDW 15.4 H Lymphocytes # 0.4 L 0.39 L Eosinophils # 0 L ABG pH 7.47 H ABG pO2 45 L* ABG HCO3 28 H ABG Total CO2 29 H ABG O2 Saturation 78.8 L Sodium Potassium Chloride Carbon Dioxide BUN Creatinine Glucose POC Glucose (mg/dL) Plasma Lactic Acid [place] Calcium AST Alkaline Phosphatase Total Protein Albumin Albumin/Globulin Ratio Ur Specific [place] Urine Protein Urine Ketones Ur Leukocyte Esterase Urine WBC Urine WBC Clumps Urine Bacteria Hyaline Casts Urine Mucus Urine Yeast (Budding) 10/31/20 10/31/20 10/31/20 05:21 05:21 06:15 RBC Hgb Hct MCV MCH MCHC RDW Lymphocytes # Eosinophils # ABG pH ABG pO2 ABG HCO3 ABG Total CO2 ABG O2 Saturation Sodium Potassium Chloride Carbon Dioxide BUN 8.0 L Creatinine Glucose 115 H POC Glucose (mg/dL) Plasma Lactic Acid [place] 2.1 H* Calcium 7.3 L AST 57 H Alkaline Phosphatase 142 H Total Protein 4.7 L Albumin 2.30 L Albumin/Globulin Ratio 0.96 L Ur Specific [place] 1.042 H Urine Protein Trace H Urine Ketones 1+ H Ur Leukocyte Esterase Large H Urine WBC 118 H Urine WBC Clumps Occasional H Urine Bacteria Occasional H Hyaline Casts 27 H Urine Mucus Rare H Urine Yeast (Budding) Many H 10/31/20 10/31/20 10/31/20 06:59 09:04 10:59 RBC Hgb Hct MCV MCH MCHC RDW Lymphocytes # Eosinophils # ABG pH ABG pO2 232 H ABG HCO3 ABG Total CO2 ABG O2 Saturation 99.6 H Sodium Potassium Chloride Carbon Dioxide BUN Creatinine Glucose POC Glucose (mg/dL) 118 H Plasma Lactic Acid [place] 2.7 H* Calcium AST Alkaline Phosphatase Total Protein Albumin Albumin/Globulin Ratio Ur Specific [place] Urine Protein Urine Ketones Ur Leukocyte Esterase Urine WBC Urine WBC Clumps Urine Bacteria Hyaline Casts Urine Mucus Urine Yeast (Budding) - Diagnostic Findings Chest x-ray: image reviewed Assessment and Plan Assessment: Acute hypoxemic respiratory failure secondary to aspiration pneumonia, requiring intubation mechanical ventilation on 10/31/2020. Initial admission to the hospital for nausea, vomiting, and abdominal pain. History of COPD. History of GERD. History of GI bleed. History of hyperlipidemia. History of chronic liver disease secondary to chronic alcohol abuse. History of osteoarthritis. History of pancreatic pseudocyst. History of BPH. Plan: Plan dated 10/31/2020. The patient was placed on Zosyn for antibiotic. In addition, the patient's getting updrafts, as well as formoterol and Pulmicort. We'll start tube feeds. A right radial art line was placed. A left subclavian triple-lumen catheter was placed as well. He is getting Ativan for possible alcohol withdrawal syndrome. No additional recommendations are made. Morning labs x-rays and blood gases will be ordered. Time with Patient: Greater than 30
[2020-10-31 13:11] LABS: Basophils % (A) 0 %; Eosinophils % (A) 0 %; HCT 27.7 % (39.0-53.0); HGB 8.8 gm/dL (13.0-17.5); Lymphocytes # (A) 0.4 k/uL (1.0-4.8); Lymphocytes % (A) 5 %; MCH 32.7 pg (25.0-35.0); MCHC 31.9 g/dL (31.0-37.0); MCV 102.5 fL (80.0-100.0); Macrocytosis Slight; Mean Platelet Volume 8.2; Monocytes # (A) 0.4 k/uL (0-1.0); Monocytes % (A) 5 %; Neutrophils # (A) 7.3 k/uL (1.3-7.7); Neutrophils % (A) 90 %; Platelet Count 309 k/uL (150-450); RDW 15.4 % (11.5-15.5); WBC 8.2 k/uL (3.8-10.6)
[2020-10-31] MEDS ORDERED: HYDROmorphone 1 MG/ML 1 ML SYRINGE IVP PRN (16:00)
--- NOTE | 2020-10-31 16:06 | P.HPIM ---
History of Present Illness H&P Date: 10/31/20 Chief Complaint: epigastric and abdominal discomfort 50-year-old male, with past medical history of COPD, hypertension, hyperlipidemia, EtOH induced liver disease, came into the emergency department, complaining of epigastric and abdominal discomfort, nausea, and vomiting with some blood in his emesis. The patient has cut back on his alcohol consumption over the last number of months. He did admit to drinking a glass a wine the night he came into the emergency room. The patient was admitted to the hospital when he had a couple episodes of coffee-ground emesis after which patient went into acute respiratory failure with hypoxemia. A team was called and decided to have the patient intubated by anesthesia, and transferred to the intensive care unit. Current laboratory data includes a white count of 8.12, hemoglobin 9.2, hematocrit 28.9, and platelet count 385,000. Blood gases after placement of lines show a PaO2 of 232, pCO2 35, and a pH 7.42. The FiO2 was dropped down to 50%. Sodium potassium chloride CO2 all normal. Anion gap is 11. BUN 8, creat inine 0.6. Lactic acid was initially 2.1, and repeat was 2.7. Urine was suspicious for a urinary tract infection. Recent chest x-ray shows a left subclavian triple-lumen catheter. There was no complication or pneumothorax. In addition, there was consolidation throughout the right lung, consistent with the aspiration pneumonia. Review of Systems ROS unobtainable: due to endotracheal tube Past Medical History Past Medical History: COPD, GERD/Reflux, GI Bleed, Hyperlipidemia, Hypertension, Liver Disease, Osteoarthritis (OA), Pneumonia, Prostate Disorder Additional Past Medical History / Comment(s): Pt recently admitted to [facility] on 09/15/20 with abdominal pain/paraesophageal hernia or pancreatic pseudocyst-pt states he f/u at Dr. Kellogg's office and was told it is a pancreatic mass-waiting for further instructions. Other hx: ETOH abuse, recurrent pancreatitis, alcoholic hepatitis, chronic back pain, neuropathy bilateral feet and chronic urinary retention since back surgery, self caths prn, chronic L hydroureteronephrosis d/t reflux, MORPHINE PAIN PUMP L ABDOMIN, L shoulder zack n/dislocation, hiatal hernia, PUD, upper and lower GI bleeds, BPH, pt states surgery to remove kidney stones. History of Any Multi-Drug Resistant Organisms: None Reported Past Surgical History: Back Surgery, Cholecystectomy, Orthopedic Surgery Additional Past Surgical History / Comment(s): EGDs, colonoscopy, low back titanium plate/rods/cages, spinal stimulator since removed, MORPHINE PAIN PUMP, bronchoscopy, surgery for kidney stones, bilateral knee arthroscopies, R 5th finger reattachment. Past Anesthesia/Blood Transfusion Reactions: No Reported Reaction Past Psychological History: Anxiety, Depression Additional Psychological History / Comment(s): PT LIVES AT HOME WITH in a 2 story home that has 3 porch steps/7 steps to 2nd floor.. 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 NO SERVICE.. occasionally uses either cane, walker or w/c also has shower chair and raised toilet seat. He does drive. Smoking Status: Current every day smoker Past Alcohol Use History: Abuse Additional Past Alcohol Use History / Comment(s): started smoking at age 14 Smokes 2 packs per day; ETOH ABUSE-patient states he has past hx of heavy drinking but states he has not drank any alcohol in past 4 weeks. 10/30/20 Pt states does not drink anymore, last drink 2 days ago. "Used to drink 3-30 packs" of beer daily Past Drug Use History: None Reported Additional Drug Use History / Comment(s): Pt denies marijuana/street drug use. - Past Family History Father Family Medical History: Diabetes Mellitus Additional Family Medical History / Comment(s): Mother Family Medical History: Dementia, Hyperlipidemia, Hypertension Additional Family Medical History / Comment(s): Mother is living. Medications and Allergies Home Medications Medication Instructions Recorded Confirmed Type Magnesium Oxide [Mag-Ox] 400 mg PO DAILY 09/18/17 10/30/20 History Cyclobenzaprine HCl 10 mg PO BID PRN 11/25/19 10/30/20 History Gabapentin [Neurontin] 400 mg PO TID 11/25/19 10/30/20 History HYDROcodone/APAP 5-325MG [[place] 1 tab PO BID 11/25/19 10/30/20 History 5-325] Lipase/Protease/Amylase [[place] 48,000 units PO AC-TID 11/25/19 10/30/20 History 24,000 Units Capsule] Metoprolol Tartrate [Lopressor] 25 mg PO BID 11/25/19 10/30/20 History Morphine Pain Pump 1 dose INTRATHECA CONTINUOUS 11/25/19 10/30/20 History Omeprazole [PriLOSEC] 40 mg PO DAILY 11/25/19 10/30/20 History Budesonide/Formoterol Fumarate 2 puff INHALATION RT-BID 06/14/20 10/30/20 History [Symbicort 160-4.5 Mcg Inhaler] Ergocalciferol (Vitamin D2) 1,250 mcg PO MO 06/14/20 10/30/20 History [Drisdol (50,000 Iu)] Pantoprazole Sodium [Protonix] 40 mg PO BID 30 Days #60 tablet.dr 09/16/20 10/30/20 Rx Simethicone 80 mg PO TID #30 tab.chew 09/16/20 10/30/20 Rx Furosemide [Lasix] 20 mg PO BID 09/22/20 10/30/20 History Allergies Allergy/AdvReac Type Severity Reaction Status Date / Time No Known Allergies Allergy Verified 10/30/20 20:21 Physical Exam Vitals: Vital Signs Temp Pulse Pulse Pulse Resp BP BP 10/31/20 08:37 118 H 10/31/20 08:25 117 H 10/31/20 08:24 117 H 10/31/20 08:10 118 H 10/31/20 07:15 99.5 F 140 H 43 H 132/91 10/31/20 05:20 10/31/20 04:50 10/31/20 02:50 10/31/20 01:35 97.5 F L 133 H 42 H 143/84 10/30/20 20:47 99.2 F 125 H 17 96/62 10/30/20 18:44 116 H 18 109/76 10/30/20 17:08 115 H 18 121/80 10/30/20 16:50 98.6 F 125 H 20 92/63 Pulse Ox 10/31/20 08:37 10/31/20 08:25 10/31/20 08:24 10/31/20 08:10 10/31/20 07:15 93 L 10/31/20 05:20 94 L 10/31/20 04:50 86 L 10/31/20 02:50 93 L 10/31/20 01:35 93 L 10/30/20 20:47 92 L 10/30/20 18:44 95 10/30/20 17:08 93 L 10/30/20 16:50 92 L Intake and Output 10/30/20 10/31/20 10/31/20 22:59 06:59 14:59 Intake Total 2.136 64.592 Balance 2.136 64.592 Intake: Intake, IV Titration 2.136 64.592 Amount propofoL 1,000 mg In 2.136 64.592 Empty Bag 1 bag @ Titrate IV .Q0M [facility] Rx#: [id number] Other: Weight 71.214 kg Patient is sedated and intubated. HEENT examination is grossly unremarkable. Neck supple. Full range of motion. No adenopathy thyromegaly or neck vein distention. Cardiovascular examination reveals regular rhythm rate. S1-S2 normal. No S3 or S4. No discernible murmur noted. Heart sounds are distant. Heart rate 118 bpm. Lungs reveal coarse bilateral breath sounds. There is diffuse coarse rhonchi. No wheezes or crackles. Breath sounds equal. Abdomen soft bowel sounds are heard. No masses or tenderness. Extremities are intact. No cyanosis clubbing or edema. Skin is without rash or lesion. Neurologic examination could not be assessed because of patient's currently heavily sedated. Results CBC & Chem 7: 10/31/20 13:03 10/31/20 05:21 Labs: Abnormal Lab Results - Last 24 Hours (Table) 10/30/20 10/30/20 10/31/20 Range/Units 17:29 17:29 01:52 RBC 3.24 L (4.30-5.90) m/uL Hgb 11.0 L (13.0-17.5) gm/dL Hct 32.6 L (39.0-53.0) % MCV 100.7 H (80.0-100.0) fL MCH (27.0-32.0) pg MCHC (32.0-37.0) g/dL RDW (11.5-14.5) % Lymphocytes # 0.8 L (1.0-4.8) k/uL Eosinophils # (0.04-0.35) X 10*3/uL ABG pH (7.35-7.45) ABG pO2 (83-108) mmHg ABG HCO3 (21-25) mmol/L ABG Total CO2 (19-24) mmol/L ABG O2 Saturation (94-97) % Sodium 136 L (137-145) mmol/L Potassium 3.4 L (3.5-5.1) mmol/L Chloride 96 L (98-107) mmol/L Carbon Dioxide 33 H (22-30) mmol/L BUN 8 L (9-20) mg/dL Creatinine 0.59 L (0.66-1.25) mg/dL Glucose 113 H (74-99) mg/dL POC Glucose (mg/dL) 102 H (75-99) mg/dL Plasma Lactic Acid [place] (0.7-2.0) mmol/L Calcium 8.3 L (8.4-10.2) mg/dL Total Protein 5.1 L (6.3-8.2) g/dL Albumin 2.4 L (3.5-5.0) g/dL Ur Specific [place] (1.001-1.035) Urine Protein (Negative) Urine Ketones (Negative) Ur Leukocyte Esterase (Negative) Urine WBC (0-5) /hpf Urine WBC Clumps (None) /hpf Urine Bacteria (None) /hpf Hyaline Casts (0-2) /lpf Urine Mucus (None) /hpf Urine Yeast (Budding) (None) /hpf 10/31/20 10/31/20 10/31/20 Range/Units 03:01 05:00 05:21 RBC 3.05 L 2.76 L (4.30-5.90) m/uL Hgb 10.0 L 9.2 L (13.0-17.5) gm/dL Hct 31.9 L 28.9 L (39.0-53.0) % MCV 104.9 H 104.7 H (80.0-100.0) fL MCH 33.3 H (27.0-32.0) pg MCHC 31.8 L (32.0-37.0) g/dL RDW 15.4 H (11.5-14.5) % Lymphocytes # 0.4 L 0.39 L (1.0-4.8) k/uL Eosinophils # 0 L (0.04-0.35) X 10*3/uL ABG pH 7.47 H (7.35-7.45) ABG pO2 45 L* (83-108) mmHg ABG HCO3 28 H (21-25) mmol/L ABG Total CO2 29 H (19-24) mmol/L ABG O2 Saturation 78.8 L (94-97) % Sodium (137-145) mmol/L Potassium (3.5-5.1) mmol/L Chloride (98-107) mmol/L Carbon Dioxide (22-30) mmol/L BUN (9-20) mg/dL Creatinine (0.66-1.25) mg/dL Glucose (74-99) mg/dL POC Glucose (mg/dL) (75-99) mg/dL Plasma Lactic Acid [place] (0.7-2.0) mmol/L Calcium (8.4-10.2) mg/dL Total Protein (6.3-8.2) g/dL Albumin (3.5-5.0) g/dL Ur Specific [place] (1.001-1.035) Urine Protein (Negative) Urine Ketones (Negative) Ur Leukocyte Esterase (Negative) Urine WBC (0-5) /hpf Urine WBC Clumps (None) /hpf Urine Bacteria (None) /hpf Hyaline Casts (0-2) /lpf Urine Mucus (None) /hpf Urine Yeast (Budding) (None) /hpf 10/31/20 10/31/20 10/31/20 Range/Units 05:21 06:15 06:59 RBC (4.30-5.90) m/uL Hgb (13.0-17.5) gm/dL Hct (39.0-53.0) % MCV (80.0-100.0) fL MCH (27.0-32.0) pg MCHC (32.0-37.0) g/dL RDW (11.5-14.5) % Lymphocytes # (1.0-4.8) k/uL Eosinophils # (0.04-0.35) X 10*3/uL ABG pH (7.35-7.45) ABG pO2 (83-108) mmHg ABG HCO3 (21-25) mmol/L ABG Total CO2 (19-24) mmol/L ABG O2 Saturation (94-97) % Sodium (137-145) mmol/L Potassium (3.5-5.1) mmol/L Chloride (98-107) mmol/L Carbon Dioxide (22-30) mmol/L BUN (9-20) mg/dL Creatinine (0.66-1.25) mg/dL Glucose (74-99) mg/dL POC Glucose (mg/dL) 118 H (75-99) mg/dL Plasma Lactic Acid [place] 2.1 H* (0.7-2.0) mmol/L Calcium (8.4-10.2) mg/dL Total Protein (6.3-8.2) g/dL Albumin (3.5-5.0) g/dL Ur Specific [place] 1.042 H (1.001-1.035) Urine Protein Trace H (Negative) Urine Ketones 1+ H (Negative) Ur Leukocyte Esterase Large H (Negative) Urine WBC 118 H (0-5) /hpf Urine WBC Clumps Occasional H (None) /hpf Urine Bacteria Occasional H (None) /hpf Hyaline Casts 27 H (0-2) /lpf Urine Mucus Rare H (None) /hpf Urine Yeast (Budding) Many H (None) /hpf 10/31/20 Range/Units 09:04 RBC (4.30-5.90) m/uL Hgb (13.0-17.5) gm/dL Hct (39.0-53.0) % MCV (80.0-100.0) fL MCH (27.0-32.0) pg MCHC (32.0-37.0) g/dL RDW (11.5-14.5) % Lymphocytes # (1.0-4.8) k/uL Eosinophils # (0.04-0.35) X 10*3/uL ABG pH (7.35-7.45) ABG pO2 (83-108) mmHg ABG HCO3 (21-25) mmol/L ABG Total CO2 (19-24) mmol/L ABG O2 Saturation (94-97) % Sodium (137-145) mmol/L Potassium (3.5-5.1) mmol/L Chloride (98-107) mmol/L Carbon Dioxide (22-30) mmol/L BUN (9-20) mg/dL Creatinine (0.66-1.25) mg/dL Glucose (74-99) mg/dL POC Glucose (mg/dL) (75-99) mg/dL Plasma Lactic Acid [place] 2.7 H* (0.7-2.0) mmol/L Calcium (8.4-10.2) mg/dL Total Protein (6.3-8.2) g/dL Albumin (3.5-5.0) g/dL Ur Specific [place] (1.001-1.035) Urine Protein (Negative) Urine Ketones (Negative) Ur Leukocyte Esterase (Negative) Urine WBC (0-5) /hpf Urine WBC Clumps (None) /hpf Urine Bacteria (None) /hpf Hyaline Casts (0-2) /lpf Urine Mucus (None) /hpf Urine Yeast (Budding) (None) /hpf Assessment and Plan Assessment: 1. Acute hypoxemic respiratory failure secondary to aspiration pneumonia - Intubation and mechanical ventilation; remains sedated - Patient is getting Ativan for possible EtOH withdrawal; has been started on tube feeding - Drama Therapist service on board for ventilatory management - Patient remains on IV antibiotics in form of Zosyn 3.375 g IV every 8 hours 2. GI bleed; - Patient admitted to the hospital for nausea, vomiting, and abdominal pain with episodes of coffee-ground emesis while inpatient. - Patient will need evaluation by GI; no check coverage this weekend; recommend monitoring H&H closely and continue with PPI, Protonix 40 mg IV every 12 hours, with plans to transfuse if hemoglobin is less than 8.0; GI consult when available 3. COPD; not in exacerbation; patient has been placed on nebulizer treatments with Pulmicort and formoterol. 4. GERD; continue with PPI as indicated above. 5. Hyperlipidemia; patient currently not on any statin therapy. 6. Chronic liver disease secondary to chronic alcohol abuse; patient is currently on [facility] protocol with Ativan for possible withdrawal. DVT prophylaxis; SCDs only due to GI bleed CODE STATUS; full code
[2020-10-31 21:53] LABS: Glucose,Whole Blood 183 mg/dL (75-99)
[2020-10-31 22:26] LABS: Basophils % (A) 0 %; Eosinophils % (A) 0 %; HCT 25.9 % (39.0-53.0); HGB 8.2 gm/dL (13.0-17.5); Lymphocytes # (A) 0.5 k/uL (1.0-4.8); Lymphocytes % (A) 7 %; MCH 32.6 pg (25.0-35.0); MCHC 31.8 g/dL (31.0-37.0); MCV 102.6 fL (80.0-100.0); Macrocytosis Slight; Mean Platelet Volume 7.9; Monocytes # (A) 0.3 k/uL (0-1.0); Monocytes % (A) 5 %; Neutrophils # (A) 6.2 k/uL (1.3-7.7); Neutrophils % (A) 87 %; Platelet Count 271 k/uL (150-450); RBC 2.52 m/uL (4.30-5.90); RDW 15.5 % (11.5-15.5); WBC 7.2 k/uL (3.8-10.6)
[2020-11-01] MEDS: IPRATROPIUM-ALBUTEROL 3 ML NEB INHALATION SCH ×5 (03:27→19:34)
[2020-11-01] MEDS: SODIUM CHLORIDE 0.9% 1,000 ML IV SCH ×2 (04:04→17:59)
[2020-11-01] MEDS: PIPERACILLIN-TAZOBACTAM 3.375 GM in SODIUM CHLORIDE 0.9% 100 ML IVPB SCH ×3 (04:06→19:48)
[2020-11-01 04:08] LABS: Basophils % (A) 0 %; Eosinophils % (A) 0 %; HCT 24.7 % (39.0-53.0); HGB 8.4 gm/dL (13.0-17.5); Lymphocytes # (A) 0.5 k/uL (1.0-4.8); Lymphocytes % (A) 7 %; MCH 34.5 pg (25.0-35.0); MCHC 33.8 g/dL (31.0-37.0); MCV 102.1 fL (80.0-100.0); Macrocytosis Slight; Mean Platelet Volume 8.3; Monocytes # (A) 0.4 k/uL (0-1.0); Monocytes % (A) 5 %; Neutrophils # (A) 6.2 k/uL (1.3-7.7); Neutrophils % (A) 87 %; Platelet Count 289 k/uL (150-450); RBC 2.42 m/uL (4.30-5.90); RDW 15.1 % (11.5-15.5); WBC 7.2 k/uL (3.8-10.6)
[2020-11-01 04:31] LABS: ALT 13 U/L (4-49); AST 22 U/L (17-59); African American GFR (CKD) >90 (>60 ml/min/1.73 sqM); Albumin 1.6 g/dL (3.5-5.0); Alkaline Phosphatase 86 U/L (38-126); Anion Gap 5 mmol/L; Blood Urea Nitrogen 6 mg/dL (9-20); Calcium 6.7 mg/dL (8.4-10.2); Carbon Dioxide 23 mmol/L (22-30); Chloride 110 mmol/L (98-107); Glucose 154 mg/dL (74-99); Non-African American GFR(CKD) >90 (>60 ml/min/1.73 sqM); Sodium 138 mmol/L (137-145); Total Bilirubin 0.2 mg/dL (0.2-1.3); Total Protein 3.8 g/dL (6.3-8.2)
[2020-11-01 04:57] LABS: Potassium 2.5 mmol/L (3.5-5.1)
[2020-11-01] MEDS: POTASSIUM CHLORIDE 20 MEQ in WATER FOR INJECTION 1 100ML.BAG IVPB SCH ×5 (05:17→16:46)
[2020-11-01 05:25] LABS: ABG Base Excess 1.3 mmol/L; ABG HCO3 25 mmol/L (21-25); ABG Oxygen Saturation 99.6 % (94-97); ABG PCO2 32 mmHg (35-45); ABG PH 7.49 (7.35-7.45); ABG PO2 185 mmHg (83-108); ABG TCO2 26 mmol/L (19-24); Allen Test Performed? Yes
[2020-11-01] MEDS: BUDESONIDE 1 MG/2 ML NEBU INHALATION SCH ×2 (07:30→19:34)
[2020-11-01] MEDS: FORMOTEROL FUMARATE 20 MCG/2 ML NEBU INHALATION SCH ×2 (07:33→19:34)
--- NOTE | 2020-11-01 08:26 | P.PN ---
Subjective Progress Note Date: 11/01/20 Today's evaluation of 11/01/2020, the patient is in the intensive care unit and the patient is being seen for a follow-up. Events from yesterday was noted. The patient had massive gastric distention followed by an aspiration. He is a 50-year-old male patient with known history of alcoholism. He was brought into the intensive care unit because of hypoxic respiratory failure and aspiration. He was intubated and placed on a mechanical ventilator. CAT scan of the abdomen on 10/30/2020 showed significant fatty infiltration of the liver consistent with alcoholism. At the same time, there was dilated small stomach with fluid could be related to gastroparesis or gastric outlet obstruction. This is possible knowing that the patient also has a chronically inserted morphine pump over the left anterior abdomen as was inserted for chronic back pain. Note that after insertion of the injury, the output was brown, foul-smelling, possibly fecal. Note that the abdominal CAT scan showed no small bowel or large bowel obstruction. In any rate, similar material was also suctioned from his lungs. This morning, the patient is on assist control mode at the rate of 20 with a tidal volume of 450 and FiO2 of 50% with a PEEP of 5. The blood gas showed a pH of 7.49 with a pCO2 of 32 and pO2 of 185. The chest x-ray from this morning is showing adequate positioning of the ET tube. NG tube is also in the stomach. There is development of extensive bilateral pulmonary infiltrates worse on the right. The patient has a subclavian triple-lumen catheter on the left. Orogastric tube and also is in good location. The patient is currently on IV Zosyn. He received IV fluids in order of 0.9 at the rate of 100 mL an hour and he is on norepinephrine infusion at the rate of 0.01 g /kg/Per minute. Ove rnight, he received a total of 7 L of IV fluids for hypotension. Antibiotic coverage is with Zosyn. Heart is sedated with propofol running at 50 mcg/kg per minute. Note that during his last admission, the patient was further investigated. He was found to have a lobulated and Encapsulated fluid c ollection extending into hiatal hernia causing significant mass effect on his distal esophagus and causing fairly moderate obstruction and delay and passage of gastric material into the stomach below the diaphragm. Objective - Vital Signs Vital signs: Vital Signs Temp 98 F 11/01/20 04:00 Pulse 104 H 11/01/20 08:01 Resp 20 11/01/20 08:01 BP 96/68 11/01/20 05:00 Pulse Ox 100 11/01/20 07:00 Intake & Output 10/31/20 11/01/20 11/01/20 18:59 06:59 18:59 Intake Total 4168.441 1324.379 170.156 Output Total 345 451 25 Balance 3823.441 873.379 145.156 Weight 72.7 kg Intake: IV 3900 1100 100 Piperacillin-Tazobactam 3 100 .375 gm In Sodium Chloride 0.9% 100 ml @ 25 mls/hr IVPB Q8H [facility] Rx#: [id number] Potassium Chloride 20 meq 100 In Water For Injection 1 100ml.bag @ 50 mls/hr IVPB Q2H [facility] Rx#: [id number] Sodium Chloride 0.9% 1, 800 1000 100 000 ml @ 100 mls/hr IV . Q10H [facility] Rx#:[id number] Sodium Chloride 0.9% 1, 3000 000 ml @ 999 mls/hr IV . Q1H1M [facility] Rx#:[id number] Intake, IV Titration 268.441 224.379 70.156 Amount Norepinephrine 8 mg In 17.11 86.813 Sodium Chloride 0.9% 250 ml @ 0.05 MCG/KG/MIN 6.89 mls/hr IV .Q24H [facility] Rx#: [id number] propofoL 1,000 mg In 251.331 137.566 70.156 Empty Bag 1 bag @ Titrate IV .Q0M [facility] Rx#: [id number] Output: Urine 345 301 25 Oral Regurgitation 150 Other: Voiding Method Indwelling Catheter Indwelling Catheter ABP, PAP, CO, CI - Last Documented Arterial Blood Pressure 133/64 - Exam Gen. appearance, calm and comfortable, nonacute distress orogastric and orotracheal tube are both in place. Was sedated with propofol. Head exam was generally normal. There was no scleral icterus or corneal arcus. M ucous membranes were moist. Neck was supple and without jugular venous distension, thyromegaly, or carotid bruits. Carotids were easily palpable bilaterally. There was no adenopathy. Lungs sounds are diminished in lung bases worse on the right Cardiac exam revealed the PMI to be normally situated and sized. The rhythm was regular and no extrasystoles were noted during several minutes of auscultation. The first and second heart sounds were normal and physiologic splitting of the second heart sound was noted. There were no murmurs, rubs, clicks, or gallops. Cardiac exam revealed the PMI to be normally situated and sized. The rhythm was regular and no extrasystoles were noted during several minutes of auscultation. The first and second heart sounds were normal and physiologic splitting of the second heart sound was noted. There were no murmurs, rubs, clicks, or gallops. Abdomen is slightly distended. Bowel sounds are hypoactive. No direct tenderness. No rebound tenderness. No guarding. Examination of the extremities revealed easily palpable radial, femoral and pedal pulses. There was no cyanosis, clubbing or edema. Examination of the skin revealed no evidence of significant rashes, suspicious appearing nevi or other concerning lesions. Neurologically the patient is quite sedated, comfortable. - Labs CBC & Chem 7: 11/01/20 03:45 11/01/20 03:45 Labs: Abnormal Lab Results - Last 24 Hours (Table) 10/31/20 10/31/20 10/31/20 Range/Units 05:21 05:21 09:04 RBC 2.76 L (4.40-5.60) X 10*6/uL Hgb 9.2 L (13.0-17.0) g/dL Hct 28.9 L (39.6-50.0) % MCV 104.7 H (80.0-97.0) fL MCH 33.3 H (27.0-32.0) pg MCHC 31.8 L (32.0-37.0) g/dL RDW 15.4 H (11.5-14.5) % Lymphocytes # 0.39 L (0.90-5.00) X 10*3/uL Eosinophils # 0 L (0.04-0.35) X 10*3/uL ABG pH (7.35-7.45) ABG pCO2 (35-45) mmHg ABG pO2 (83-108) mmHg ABG Total CO2 (19-24) mmol/L ABG O2 Saturation (94-97) % Potassium (3.5-5.1) mmol/L Chloride (98-107) mmol/L BUN 8.0 L (9.0-27.0) mg/dL Creatinine (0.66-1.25) mg/dL Glucose 115 H (70-110) mg/dL POC Glucose (mg/dL) (75-99) mg/dL Plasma Lactic Acid Bandar 2.7 H* (0.7-2.0) mmol/L Calcium 7.3 L (8.7-10.3) mg/dL AST 57 H (14-35) U/L Alkaline Phosphatase 142 H (41-126) U/L Total Protein 4.7 L (6.2-8.2) g/dL Albumin 2.30 L (3.80-4.90) g/dL Albumin/Globulin Ratio 0.96 L (1.60-3.17) g/dL 10/31/20 10/31/20 10/31/20 Range/Units 10:59 13:03 13:03 RBC 2.70 L (4.40-5.60) X 10*6/uL Hgb 8.8 L (13.0-17.0) g/dL Hct 27.7 L (39.6-50.0) % MCV 102.5 H (80.0-97.0) fL MCH (27.0-32.0) pg MCHC (32.0-37.0) g/dL RDW (11.5-14.5) % Lymphocytes # 0.4 L (0.90-5.00) X 10*3/uL Eosinophils # (0.04-0.35) X 10*3/uL ABG pH (7.35-7.45) ABG pCO2 (35-45) mmHg ABG pO2 232 H (83-108) mmHg ABG Total CO2 (19-24) mmol/L ABG O2 Saturation 99.6 H (94-97) % Potassium (3.5-5.1) mmol/L Chloride (98-107) mmol/L BUN (9.0-27.0) mg/dL Creatinine (0.66-1.25) mg/dL Glucose (70-110) mg/dL POC Glucose (mg/dL) (75-99) mg/dL Plasma Lactic Acid Bandar 2.2 H* (0.7-2.0) mmol/L Calcium (8.7-10.3) mg/dL AST (14-35) U/L Alkaline Phosphatase (41-126) U/L Total Protein (6.2-8.2) g/dL Albumin (3.80-4.90) g/dL Albumin/Globulin Ratio (1.60-3.17) g/dL 10/31/20 10/31/20 10/31/20 Range/Units 15:35 21:52 21:54 RBC 2.52 L (4.40-5.60) X 10*6/uL Hgb 8.2 L (13.0-17.0) g/dL Hct 25.9 L (39.6-50.0) % MCV 102.6 H (80.0-97.0) fL MCH (27.0-32.0) pg MCHC (32.0-37.0) g/dL RDW (11.5-14.5) % Lymphocytes # 0.5 L (0.90-5.00) X 10*3/uL Eosinophils # (0.04-0.35) X 10*3/uL ABG pH (7.35-7.45) ABG pCO2 (35-45) mmHg ABG pO2 (83-108) mmHg ABG Total CO2 (19-24) mmol/L ABG O2 Saturation (94-97) % Potassium (3.5-5.1) mmol/L Chloride (98-107) mmol/L BUN (9.0-27.0) mg/dL Creatinine (0.66-1.25) mg/dL Glucose (70-110) mg/dL POC Glucose (mg/dL) 183 H (75-99) mg/dL Plasma Lactic Acid Bandar 2.1 H* (0.7-2.0) mmol/L Calcium (8.7-10.3) mg/dL AST (14-35) U/L Alkaline Phosphatase (41-126) U/L Total Protein (6.2-8.2) g/dL Albumin (3.80-4.90) g/dL Albumin/Globulin Ratio (1.60-3.17) g/dL 10/31/20 11/01/20 11/01/20 Range/Units 21:54 00:52 03:45 RBC 2.42 L (4.40-5.60) X 10*6/uL Hgb 8.4 L (13.0-17.0) g/dL Hct 24.7 L (39.6-50.0) % MCV 102.1 H (80.0-97.0) fL MCH (27.0-32.0) pg MCHC (32.0-37.0) g/dL RDW (11.5-14.5) % Lymphocytes # 0.5 L (0.90-5.00) X 10*3/uL Eosinophils # (0.04-0.35) X 10*3/uL ABG pH (7.35-7.45) ABG pCO2 (35-45) mmHg ABG pO2 (83-108) mmHg ABG Total CO2 (19-24) mmol/L ABG O2 Saturation (94-97) % Potassium (3.5-5.1) mmol/L Chloride (98-107) mmol/L BUN (9.0-27.0) mg/dL Creatinine (0.66-1.25) mg/dL Glucose (70-110) mg/dL POC Glucose (mg/dL) (75-99) mg/dL Plasma Lactic Acid Bandar 2.2 H* 2.3 H* (0.7-2.0) mmol/L Calcium (8.7-10.3) mg/dL AST (14-35) U/L Alkaline Phosphatase (41-126) U/L Total Protein (6.2-8.2) g/dL Albumin (3.80-4.90) g/dL Albumin/Globulin Ratio (1.60-3.17) g/dL 11/01/20 11/01/20 Range/Units 03:45 05:23 RBC (4.40-5.60) X 10*6/uL Hgb (13.0-17.0) g/dL Hct (39.6-50.0) % MCV (80.0-97.0) fL MCH (27.0-32.0) pg MCHC (32.0-37.0) g/dL RDW (11.5-14.5) % Lymphocytes # (0.90-5.00) X 10*3/uL Eosinophils # (0.04-0.35) X 10*3/uL ABG pH 7.49 H (7.35-7.45) ABG pCO2 32 L (35-45) mmHg ABG pO2 185 H (83-108) mmHg ABG Total CO2 26 H (19-24) mmol/L ABG O2 Saturation 99.6 H (94-97) % Potassium 2.5 L* (3.5-5.1) mmol/L Chloride 110 H (98-107) mmol/L BUN 6 L (9.0-27.0) mg/dL Creatinine 0.55 L (0.66-1.25) mg/dL Glucose 154 H (70-110) mg/dL POC Glucose (mg/dL) (75-99) mg/dL Plasma Lactic Acid Bandar (0.7-2.0) mmol/L Calcium 6.7 L (8.7-10.3) mg/dL AST (14-35) U/L Alkaline Phosphatase (41-126) U/L Total Protein 3.8 L (6.2-8.2) g/dL Albumin 1.6 L (3.80-4.90) g/dL Albumin/Globulin Ratio (1.60-3.17) g/dL Microbiology - Last 24 Hours (Table) 10/31/20 05:21 Blood Culture - Preliminary Blood No Growth after 24 hours 10/31/20 08:44 Gram Stain - Preliminary Sputum Sputum Culture - Preliminary 10/30/20 19:13 Blood Culture - Preliminary Blood No Growth after 24 hours 10/31/20 06:15 Urine Culture - Preliminary Urine,Voided Assessment and Plan Plan: 1 Acute hypoxemic respiratory failure secondary to aspiration pneumonia, requiring intubation mechanical ventilation on 10/31/2020. Recurrent intubated on a mechanical ventilator. He estimates he was aspirated from his orotracheal tube. Chest x-ray showing worsening of bilateral pulmonary infiltrates and extensive consolidation on the right. The patient is currently on IV Zosyn. 2 gastric obstruction probably related to a hiatal hernia. Please refer to the most recent upper GI series that was done on this patient. There is a concern of the patient has a pocket of hiatal hernia that is causing anatomic obstruction in the distal esophagus and the patient may need another EGD to visualize the area. Currently is nothing by mouth. Orogastric tube and also is in place. He was EGD has shown esophagitis and this was involving the mid and the distal esophagus. I suspect there is an anatomic obstruction rather than a functional obstruction from a morphine pump or chronic narcotic use. 3 History of COPD. 4 History of GERD. 5 History of GI bleed. 6 History of hyperlipidemia. 7 History of chronic liver disease secondary to chronic alcohol abuse. 8 History of osteoarthritis. 9 History of pancreatic pseudocyst. 10 History of BPH. 11 hypotension, related to sepsis/aspiration pneumonia, received a total of 7 L of IV fluids currently on minimal dose of norepinephrine infusion. 12 secondary to morphine pump for chronic back pain 13 anemia of chronic illness, possibly a component of dilution as the patient received a total of 7 L. Plan: Keep nothing by mouth for now Not FiO2 down to 40% Will drop the FiO2 down to 40% and the rate down to 14. IV fluids at the rate of 100 mL an hour of normal saline Assessment pain services to, and evaluated morphine pump. This may be also contributing for gastroparesis and we'll may need to consider slowing down the infusion rate if the pump is active The patient will ever the need another EGD and a surgical consultation and a GI consultation and the priority for now is to rule out any anatomic obstruction. Meanwhile the patient will be kept nothing by mouth Continue IV Protonix Wean off pressors and discontinued today Condition is critical. We'll continue to follow and make further recommendations based on his progress. Critically care evaluation, more than 30 minutes. Time with Patient: Greater than 30
--- NOTE | 2020-11-01 08:55 | XR ---
EXAMINATION TYPE: XR chest 1V portable DATE OF EXAM: 11/01/2020 COMPARISON: 10/31/2020 HISTORY: Line placement TECHNIQUE: Single frontal view of the chest is obtained. FINDINGS: ET and NG tube and central line stable. Stimulator device overlying the vertebral column. Suggestion possible epicardial lead. Surgical clips right upper quadrant. I lateral infiltrate and sm all effusion stable. No sizable pneumothorax. IMPRESSION: 1. Diffuse bilateral infiltrate and pleural effusion stable correlate for diffuse pneumonia versus pu lmonary edema.
[2020-11-01] MEDS ORDERED: ERGOCALCIFEROL 1,250 MCG (50,000 IU) CAPSULE PO SCH (09:00)
[2020-11-01] MEDS: CHLORHEXIDINE GLUCONATE 15 ML CUP MUCOUS MEM SCH ×2 (10:05→19:48)
[2020-11-01] MEDS: LIPASE 5,000/PROTEASE 17,000/AMYLASE 24,000 PO SCH ×3 (10:05→18:03)
[2020-11-01] MEDS: GABAPENTIN 400 MG CAP PO SCH ×3 (10:05→19:34)
[2020-11-01] MEDS: PANTOPRAZOLE 40 MG/10 ML VIAL IVP SCH ×2 (10:05→21:56)
[2020-11-01] MEDS: MAGNESIUM OXIDE 400 MG TAB PO SCH (10:06)
[2020-11-01 10:36] VITALS: BMI 25.8
[2020-11-01 11:34] LABS: Glucose,Whole Blood 149 mg/dL (75-99)
--- NOTE | 2020-11-01 11:36 | P.GSCN ---
<CelinachandraShari rm - Last Filed: 11/01/20 11:37> History of Present Illness Consult date: 11/01/20 History of present illness: CHIEF COMPLAINT: Abdominal pain with nausea and vomiting HISTORY OF PRESENT ILLNESS: This is a 50-year-old male with a known past medical history of alcohol abuse, recurrent pancreatitis, pancreatic pseudocyst, chronic back pain with prior back surgery and morphine pain pump. He has a prior surgical history of cholecystectomy. Patient presented to the hospital with complaints of epigastric abdominal pain nausea and vomiting. Symptoms had started on the day before he was admitted to the hospital. Patient was admitted to the hospital on 10/30/2020. Patient had reported that he had cut back on his alcohol intake but had a glass of wine the night before he was admitted. There have been reports of some blood in his emesis. Yesterday patient had gone into respiratory failure due to aspiration pneumonia. They're concerned that he may have aspirated fecal material. He required to be transferred to the ICU and to be intubated and on mechanical ventilation and he is sedated. He had been on vasopressors and is currently off of them now. He did require 7 L of fluid due to his hypotension. Patient had a computed tomography scan of the abdomen and pelvis on admission showing significant fatty infiltration of the liver which appears new compared to recent exam. Dilated stomach with fluid that could relate to gastroparesis or gastric outlet obstruction. Large cystic fluid collection at the esophageal hiatus could be a large pseudocyst that is slightly smaller than old exam. NG tube output is brownish in color. Surgical service consulted for abdominal pain, distention and gastroparesis. Please note that patient is intubated and sedated all of the information was obtained from patient's chart and nursing staff. PAST MEDICAL HISTORY: See list. PAST SURGICAL HISTORY: See list. MEDICATIONS: See list. ALLERGIES: See list. SOCIAL HISTORY: No illicit drug use. REVIEW OF SYSTEMS: Unable to obtain patient intubated and sedated PHYSICAL EXAM: VITAL SIGNS: Reviewed GENERAL: Well-developed in no acute distress. HEENT: No sclera icterus. Extraocular movements grossly intact. Moist buccal mucosa. Head is atraumatic, normocephalic. No nasal drainage. ABDOMEN: Soft. Mildly distended. Hypoactive bowel sounds NEUROLOGIC: Intubated and sedated LABORATORY DATA: WBC 7.2 hemoglobin 8.4 platelets 289 Sodium 138 potassium 2.5 BUN 6 creatinine 0.55 lactic 2.3 albumin 1.6 LFTs currently normal Lipase 50 IMAGING: Chest x-ray diffuse bilateral infiltrate and pleural effusion computed tomography scan of the abdomen and pelvis on admission showing significant fatty infiltration of the liver which appears new compared to recent exam. Dilated stomach with fluid that could relate to gastroparesis or gastric outlet obstruction. Large cystic fluid collection at the esophageal hiatus could be a large pseudocyst that is slightly smaller than old exam. Left renal cortical atrophy and mild left-sided hydronephrosis and hydroureter could lead to chronic obstruction. There is a new small right pleural effusion and right lower lobe interstitial pneumonia ASSESSMENT: 1. Epigastric abdominal pain with nausea and vomiting. Computed tomography scan of the abdomen and pelvis showing Dilated stomach with fluid that could re late to gastroparesis or gastric outlet obstruction. Large cystic fluid collection at the esophageal hiatus could be a large pseudocyst that is slightly smaller than old exam. 2. History of pancreatic pseudocyst 3. Daily alcohol use 4. Acute hypoxic respiratory failure secondary to aspiration pneumonia. Patient intubated and on mechanical ventilation 5. Hypokalemia. Potassium being replaced PLAN: -Further recommendations forthcoming per surgeon -Continue supportive care -continue ICU management Thank you for this consultation Physician Bridge Operator note has been reviewed by physician. Signing provider agrees with the documented findings, assessment, and plan of care. Past Medical History Past Medical History: COPD, GERD/Reflux, GI Bleed, Hyperlipidemia, Hypertension, Liver Disease, Osteoarthritis (OA), Pneumonia, Prostate Disorder Additional Past Medical History / Comment(s): Pt recently admitted to [facility] on with abdominal pain/paraesophageal hernia or pancreatic pseudocyst-pt states he f/u at Dr. Kellogg's office and was told it is a pancreatic mass-waiting for further instructions. Other hx: ETOH abuse, recurrent pancreatitis, alcoholic hepatitis, chronic back pain, neuropathy bilateral feet and chronic urinary retention since back surgery, self caths prn, chronic L hydroureteronephrosis d/t reflux, MORPHINE PAIN PUMP L ABDOMIN, L shoulder pain/dislocation, hiatal hernia, PUD, upper and lower GI bleeds, BPH, pt states surgery to remove kidney stones. History of Any Multi-Drug Resistant Organisms: None Reported Past Surgical History: Back Surgery, Cholecystectomy, Orthopedic Surgery Additional Past Surgical History / Comment(s): EGDs, colonoscopy, low back titanium plate/rods/cages, spinal stimulator since removed, MORPHINE PAIN PUMP, bronchoscopy, surgery for kidney stones, bilateral knee arthroscopies, R 5th finger reattachment. Past Anesthesia/Blood Transfusion Reactions: No Reported Reaction Past Psychological History: Anxiety, Depression Additional Psychological History / Comment(s): PT LIVES AT HOME WITH in a 2 story home that has 3 porch steps/7 steps to 2nd floor.. IS DISABLED WORKED [employer] IN PAST. NO SERVICE.. occasionally uses either cane, walker or w/c also has shower chair and raised toilet seat. He does drive. Smoking Status: Current every day smoker Past Alcohol Use History: Abuse Additional Past Alcohol Use History / Comment(s): started smoking at age 14 Smokes 2 packs per day; ETOH ABUSE-patient states he has past hx of heavy drinking but states he has not drank any alcohol in past 4 weeks. 10/30/20 Pt states does not drink anymore, last drink 2 days ago. "Used to drink 3-30 packs" of beer daily Past Drug Use History: None Reported Additional Drug Use History / Comment(s): Pt denies marijuana/street drug use. - Past Family History Father Family Medical History: Diabetes Mellitus Additional Family Medical History / Comment(s): Mother Family Medical History: Dementia, Hyperlipidemia, Hypertension Additional Family Medical History / Comment(s): Mother is living. Medications and Allergies Home Medications Medication Instructions Recorded Confirmed Type Magnesium Oxide [Mag-Ox] 400 mg PO DAILY 09/18/17 10/30/20 History Cyclobenzaprine HCl 10 mg PO BID PRN 11/25/19 10/30/20 History Gabapentin [Neurontin] 400 mg PO TID 11/25/19 10/30/20 History HYDROcodone/APAP 5-325MG [Ethel 1 tab PO BID 11/25/19 10/30/20 History 5-325] Lipase/Protease/Amylase [Rebel Belcher 48,000 units PO AC-TID 11/25/19 10/30/20 History 24,000 Units Capsule] Metoprolol Tartrate [Lopressor] 25 mg PO BID 11/25/19 10/30/20 History Morphine Pain Pump 1 dose INTRATHECA CONTINUOUS 11/25/19 10/30/20 History Omeprazole [PriLOSEC] 40 mg PO DAILY 11/25/19 10/30/20 History Budesonide/Formoterol Fumarate 2 puff INHALATION RT-BID 06/14/20 10/30/20 History [Symbicort 160-4.5 Mcg Inhaler] Ergocalciferol (Vitamin D2) 1,250 mcg PO MO 06/14/20 10/30/20 History [Drisdol (50,000 Iu)] Pantoprazole Sodium [Protonix] 40 mg PO BID 30 Days #60 tablet.dr 09/16/20 10/30/20 Rx Simethicone 80 mg PO TID #30 tab.chew 09/16/20 10/30/20 Rx Furosemide [Lasix] 20 mg PO BID 09/22/20 10/30/20 History Allergies Allergy/AdvReac Type Severity Reaction Status Date / Time No Known Allergies Allergy Verified 10/30/20 20:21 Surgical - Exam Vital Signs Temp Pulse Resp BP Pulse Ox 98.6 F 125 H 20 92/63 92 L 10/30/20 16:50 10/30/20 16:50 10/30/20 16:50 10/30/20 16:50 10/30/20 16:50 Results - Labs 11/01/20 03:45 11/01/20 03:45 Abnormal Lab Results - Last 24 Hours (Table) 10/31/20 10/31/20 10/31/20 Range/Units 13:03 13:03 15:35 RBC 2.70 L (4.30-5.90) m/uL Hgb 8.8 L (13.0-17.5) gm/dL Hct 27.7 L (39.0-53.0) % MCV 102.5 H (80.0-100.0) fL Lymphocytes # 0.4 L (1.0-4.8) k/uL ABG pH (7.35-7.45) ABG pCO2 (35-45) mmHg ABG pO2 (83-108) mmHg ABG Total CO2 (19-24) mmol/L ABG O2 Saturation (94-97) % Potassium (3.5-5.1) mmol/L Chloride (98-107) mmol/L BUN (9-20) mg/dL Creatinine (0.66-1.25) mg/dL Glucose (74-99) mg/dL POC Glucose (mg/dL) (75-99) mg/dL Plasma Lactic Acid Bandar 2.2 H* 2.1 H* (0.7-2.0) mmol/L Calcium (8.4-10.2) mg/dL Total Protein (6.3-8.2) g/dL Albumin (3.5-5.0) g/dL 10/31/20 10/31/20 10/31/20 Range/Units 21:52 21:54 21:54 RBC 2.52 L (4.30-5.90) m/uL Hgb 8.2 L (13.0-17.5) gm/dL Hct 25.9 L (39.0-53.0) % MCV 102.6 H (80.0-100.0) fL Lymphocytes # 0.5 L (1.0-4.8) k/uL ABG pH (7.35-7.45) ABG pCO2 (35-45) mmHg ABG pO2 (83-108) mmHg ABG Total CO2 (19-24) mmol/L ABG O2 Saturation (94-97) % Potassium (3.5-5.1) mmol/L Chloride (98-107) mmol/L BUN (9-20) mg/dL Creatinine (0.66-1.25) mg/dL Glucose (74-99) mg/dL POC Glucose (mg/dL) 183 H (75-99) mg/dL Plasma Lactic Acid Bandar 2.2 H* (0.7-2.0) mmol/L Calcium (8.4-10.2) mg/dL Total Protein (6.3-8.2) g/dL Albumin (3.5-5.0) g/dL 11/01/20 11/01/20 11/01/20 Range/Units 00:52 03:45 03:45 RBC 2.42 L (4.30-5.90) m/uL Hgb 8.4 L (13.0-17.5) gm/dL Hct 24.7 L (39.0-53.0) % MCV 102.1 H (80.0-100.0) fL Lymphocytes # 0.5 L (1.0-4.8) k/uL ABG pH (7.35-7.45) ABG pCO2 (35-45) mmHg ABG pO2 (83-108) mmHg ABG Total CO2 (19-24) mmol/L ABG O2 Saturation (94-97) % Potassium 2.5 L* (3.5-5.1) mmol/L Chloride 110 H (98-107) mmol/L BUN 6 L (9-20) mg/dL Creatinine 0.55 L (0.66-1.25) mg/dL Glucose 154 H (74-99) mg/dL POC Glucose (mg/dL) (75-99) mg/dL Plasma Lactic Acid Bandar 2.3 H* (0.7-2.0) mmol/L Calcium 6.7 L (8.4-10.2) mg/dL Total Protein 3.8 L (6.3-8.2) g/dL Albumin 1.6 L (3.5-5.0) g/dL 11/01/20 Range/Units 05:23 RBC (4.30-5.90) m/uL Hgb (13.0-17.5) gm/dL Hct (39.0-53.0) % MCV (80.0-100.0) fL Lymphocytes # (1.0-4.8) k/uL ABG pH 7.49 H (7.35-7.45) ABG pCO2 32 L (35-45) mmHg ABG pO2 185 H (83-108) mmHg ABG Total CO2 26 H (19-24) mmol/L ABG O2 Saturation 99.6 H (94-97) % Potassium (3.5-5.1) mmol/L Chloride (98-107) mmol/L BUN (9-20) mg/dL Creatinine (0.66-1.25) mg/dL Glucose (74-99) mg/dL POC Glucose (mg/dL) (75-99) mg/dL Plasma Lactic Acid Bandar (0.7-2.0) mmol/L Calcium (8.4-10.2) mg/dL Total Protein (6.3-8.2) g/dL Albumin (3.5-5.0) g/dL Microbiology - Last 24 Hours (Table) 10/31/20 05:21 Blood Culture - Preliminary Blood No Growth after 24 hours 10/31/20 08:44 Gram Stain - Preliminary Sputum Sputum Culture - Preliminary 10/30/20 19:13 Blood Culture - Preliminary Blood No Growth after 24 hours 10/31/20 06:15 Urine Culture - Preliminary Urine,Voided Diabetes panel 11/01/20 Range/Units 03:45 Sodium 138 (137-145) mmol/L Potassium 2.5 L* (3.5-5.1) mmol/L Chloride 110 H (98-107) mmol/L Carbon Dioxide 23 (22-30) mmol/L BUN 6 L (9-20) mg/dL Creatinine 0.55 L (0.66-1.25) mg/dL Glucose 154 H (74-99) mg/dL Calcium 6.7 L (8.4-10.2) mg/dL AST 22 (17-59) U/L ALT 13 (4-49) U/L Alkaline Phosphatase 86 (38-126) U/L Total Protein 3.8 L (6.3-8.2) g/dL Albumin 1.6 L (3.5-5.0) g/dL Calcium panel 11/01/20 Range/Units 03:45 Calcium 6.7 L (8.4-10.2) mg/dL Albumin 1.6 L (3.5-5.0) g/dL Pituitary panel 11/01/20 Range/Units 03:45 Sodium 138 (137-145) mmol/L Potassium 2.5 L* (3.5-5.1) mmol/L Chloride 110 H (98-107) mmol/L Carbon Dioxide 23 (22-30) mmol/L BUN 6 L (9-20) mg/dL Creatinine 0.55 L (0.66-1.25) mg/dL Glucose 154 H (74-99) mg/dL Calcium 6.7 L (8.4-10.2) mg/dL Adrenal panel 11/01/20 Range/Units 03:45 Sodium 138 (137-145) mmol/L Potassium 2.5 L* (3.5-5.1) mmol/L Chloride 110 H (98-107) mmol/L Carbon Dioxide 23 (22-30) mmol/L BUN 6 L (9-20) mg/dL Creatinine 0.55 L (0.66-1.25) mg/dL Glucose 154 H (74-99) mg/dL Calcium 6.7 L (8.4-10.2) mg/dL Total Bilirubin 0.2 (0.2-1.3) mg/dL AST 22 (17-59) U/L ALT 13 (4-49) U/L Alkaline Phosphatase 86 (38-126) U/L Total Protein 3.8 L (6.3-8.2) g/dL Albumin 1.6 L (3.5-5.0) g/dL <Grayson Fox - Last Filed: 11/01/20 14:38> History of Present Illness History of present illness: As above. Patient was CAT scan demonstrating significant gastric distention. Pseudocyst posterior to the stomach extending into the mediastinum is somewhat smaller than previous study in August. Patient will require upper endoscopy or upper GI to evaluate patency of the gastric outlet. Continue nasogastric tube suction. Continue supportive care for now. Will follow. Surgical - Exam Vital Signs Temp Pulse Resp BP Pulse Ox 98.6 F 125 H 20 92/63 92 L 10/30/20 16:50 10/30/20 16:50 10/30/20 16:50 10/30/20 16:50 10/30/20 16:50 Results - Labs 11/01/20 03:45 11/01/20 12:58 Abnormal Lab Results - Last 24 Hours (Table) 10/31/20 10/31/20 10/31/20 Range/Units 15:35 21:52 21:54 RBC 2.52 L (4.30-5.90) m/uL Hgb 8.2 L (13.0-17.5) gm/dL Hct 25.9 L (39.0-53.0) % MCV 102.6 H (80.0-100.0) fL Lymphocytes # 0.5 L (1.0-4.8) k/uL ABG pH (7.35-7.45) ABG pCO2 (35-45) mmHg ABG pO2 (83-108) mmHg ABG Total CO2 (19-24) mmol/L ABG O2 Saturation (94-97) % Potassium (3.5-5.1) mmol/L Chloride (98-107) mmol/L BUN (9-20) mg/dL Creatinine (0.66-1.25) mg/dL Glucose (74-99) mg/dL POC Glucose (mg/dL) 183 H (75-99) mg/dL Plasma Lactic Acid Bandar 2.1 H* (0.7-2.0) mmol/L Calcium (8.4-10.2) mg/dL Total Protein (6.3-8.2) g/dL Albumin (3.5-5.0) g/dL 10/31/20 11/01/20 11/01/20 Range/Units 21:54 00:52 03:45 RBC 2.42 L (4.30-5.90) m/uL Hgb 8.4 L (13.0-17.5) gm/dL Hct 24.7 L (39.0-53.0) % MCV 102.1 H (80.0-100.0) fL Lymphocytes # 0.5 L (1.0-4.8) k/uL ABG pH (7.35-7.45) ABG pCO2 (35-45) mmHg ABG pO2 (83-108) mmHg ABG Total CO2 (19-24) mmol/L ABG O2 Saturation (94-97) % Potassium (3.5-5.1) mmol/L Chloride (98-107) mmol/L BUN (9-20) mg/dL Creatinine (0.66-1.25) mg/dL Glucose (74-99) mg/dL POC Glucose (mg/dL) (75-99) mg/dL Plasma Lactic Acid Bandar 2.2 H* 2.3 H* (0.7-2.0) mmol/L Calcium (8.4-10.2) mg/dL Total Protein (6.3-8.2) g/dL Albumin (3.5-5.0) g/dL 11/01/20 11/01/20 11/01/20 Range/Units 03:45 05:23 11:32 RBC (4.30-5.90) m/uL Hgb (13.0-17.5) gm/dL Hct (39.0-53.0) % MCV (80.0-100.0) fL Lymphocytes # (1.0-4.8) k/uL ABG pH 7.49 H (7.35-7.45) ABG pCO2 32 L (35-45) mmHg ABG pO2 185 H (83-108) mmHg ABG Total CO2 26 H (19-24) mmol/L ABG O2 Saturation 99.6 H (94-97) % Potassium 2.5 L* (3.5-5.1) mmol/L Chloride 110 H (98-107) mmol/L BUN 6 L (9-20) mg/dL Creatinine 0.55 L (0.66-1.25) mg/dL Glucose 154 H (74-99) mg/dL POC Glucose (mg/dL) 149 H (75-99) mg/dL Plasma Lactic Acid Bandar (0.7-2.0) mmol/L Calcium 6.7 L (8.4-10.2) mg/dL Total Protein 3.8 L (6.3-8.2) g/dL Albumin 1.6 L (3.5-5.0) g/dL 11/01/20 Range/Units 12:58 RBC (4.30-5.90) m/uL Hgb (13.0-17.5) gm/dL Hct (39.0-53.0) % MCV (80.0-100.0) fL Lymphocytes # (1.0-4.8) k/uL ABG pH (7.35-7.45) ABG pCO2 (35-45) mmHg ABG pO2 (83-108) mmHg ABG Total CO2 (19-24) mmol/L ABG O2 Saturation (94-97) % Potassium 3.1 L (3.5-5.1) mmol/L Chloride (98-107) mmol/L BUN (9-20) mg/dL Creatinine (0.66-1.25) mg/dL Glucose (74-99) mg/dL POC Glucose (mg/dL) (75-99) mg/dL Plasma Lactic Acid Bandar (0.7-2.0) mmol/L Calcium (8.4-10.2) mg/dL Total Protein (6.3-8.2) g/dL Albumin (3.5-5.0) g/dL Microbiology - Last 24 Hours (Table) 10/31/20 05:21 Blood Culture - Preliminary Blood No Growth after 24 hours 10/31/20 08:44 Gram Stain - Preliminary Sputum Sputum Culture - Preliminary 10/30/20 19:13 Blood Culture - Preliminary Blood No Growth after 24 hours 10/31/20 06:15 Urine Culture - Preliminary Urine,Voided Diabetes panel 11/01/20 11/01/20 Range/Units 03:45 12:58 Sodium 138 (137-145) mmol/L Potassium 2.5 L* 3.1 L (3.5-5.1) mmol/L Chloride 110 H (98-107) mmol/L Carbon Dioxide 23 (22-30) mmol/L BUN 6 L (9-20) mg/dL Creatinine 0.55 L (0.66-1.25) mg/dL Glucose 154 H (74-99) mg/dL Calcium 6.7 L (8.4-10.2) mg/dL AST 22 (17-59) U/L ALT 13 (4-49) U/L Alkaline Phosphatase 86 (38-126) U/L Total Protein 3.8 L (6.3-8.2) g/dL Albumin 1.6 L (3.5-5.0) g/dL Calcium panel 11/01/20 Range/Units 03:45 Calcium 6.7 L (8.4-10.2) mg/dL Albumin 1.6 L (3.5-5.0) g/dL Pituitary panel 11/01/20 11/01/20 Range/Units 03:45 12:58 Sodium 138 (137-145) mmol/L Potassium 2.5 L* 3.1 L (3.5-5.1) mmol/L Chloride 110 H (98-107) mmol/L Carbon Dioxide 23 (22-30) mmol/L BUN 6 L (9-20) mg/dL Creatinine 0.55 L (0.66-1.25) mg/dL Glucose 154 H (74-99) mg/dL Calcium 6.7 L (8.4-10.2) mg/dL Adrenal panel 11/01/20 11/01/20 Range/Units 03:45 12:58 Sodium 138 (137-145) mmol/L Potassium 2.5 L* 3.1 L (3.5-5.1) mmol/L Chloride 110 H (98-107) mmol/L Carbon Dioxide 23 (22-30) mmol/L BUN 6 L (9-20) mg/dL Creatinine 0.55 L (0.66-1.25) mg/dL Glucose 154 H (74-99) mg/dL Calcium 6.7 L (8.4-10.2) mg/dL Total Bilirubin 0.2 (0.2-1.3) mg/dL AST 22 (17-59) U/L ALT 13 (4-49) U/L Alkaline Phosphatase 86 (38-126) U/L Total Protein 3.8 L (6.3-8.2) g/dL Albumin 1.6 L (3.5-5.0) g/dL
--- NOTE | 2020-11-01 12:16 | P.PCN ---
Date of Procedure: 11/01/20 Procedure(s) Performed: OPERATION: Intrathecal pain pump analysis, programming and reprogramming. PREOPERATIVE DIAGNOSES: 1. Respiratory failure 2. Chronic pain syndrome POSTOPERATIVE DIAGNOSES: Same as preoperative diagnosis. ANESTHESIA: None. CONDITION: critical. Description of the procedure; This is 50 years old male who was admitted to [facility] intensive care unit, secondary to respiratory failure and patient was intubated, ICU team consulted pain service to decrease the intrathecal pain pump infusion, to help in the weaning process of the mechanical ventilator, the intrathecal pain pump analysis short patient currently on intrathecal morphine infusion, the concentration is 25 mg per mL, the patient had residual volume of 18.5 ML, and patient receiving a daily dose of morphine sulfate 7.90 mg per day, I was able to decrease the intrathecal pain pump infusion to 5.93 mg per day which is equal to 25% decrease in the daily dose, we'll monitor the patient condition and will adjust accordingly
[2020-11-01 13:01] VITALS: BP 89/58
[2020-11-01] MEDS ORDERED: Potassium Replacement Protocol 1 EACH MISC MISCELLANE PRN (14:11)
--- NOTE | 2020-11-01 15:36 | CONS ---
CONSULTATION DATE OF SERVICE: November 01, 2020. REQUESTING PHYSICIAN: Dr. Quinones. REASON FOR CONSULTATION: Abdominal distention/pancreatic pseudocyst. HISTORY OF PRESENT ILLNESS: The patient is a 50-year-old white male who is known to me from his prior hospitalization for history of chronic pancreatitis complicated with pancreatic pseudocyst requiring previous hospitalization in August of this year. He was admitted to the hospital with nausea, vomiting that started 3 days ago. Apparently he was complaining of worsening epigastric pain and threw up a few times and subsequently turned coffee colored. He came to the emergency room and subsequently he developed severe hypoxemia secondary to possible aspiration and was intubated and transferred to the intensive care unit. The patient currently remains on the vent and the NG tube in place and there was approximately 500 mL of thick gastric aspirate noted. The patient's is at the bedside who gave most of the history. Apparently the patient was doing reasonably well except for pain related to pancreatic pseudocyst but he was able to eat and maintain nutrition. His prior hospitalization was in August of this year and CT of the abdomen and pelvis showed a pancreatic pseudocyst measuring approximately 9 cm in size. In the ER, he did have a CT of the abdomen and pelvis done during this hospitalization on October 30 that revealed a dilated fluid-filled stomach, large cystic fluid collection, possibly large pancreatic pseudocyst causing extrinsic compression in the distal esophagus. Also there was evidence of significant fatty infiltration of the liver and dilated stomach with fluid secondary to gastroparesis or gastric outlet obstruction. PAST MEDICAL HISTORY: Significant for heavy alcohol abuse and multiple hospitalizations with chronic pancreatitis, chronic relapsing pancreatitis complicated with pseudocyst formation, history of hypertension, hyperlipidemia, gastroesophageal reflux disease. Last EGD was done a year ago that showed severe LA grade C reflux esophagitis and small hiatal hernia. PAST SURGICAL HISTORY: Back surgery, cholecystectomy, multiple EGD and colonoscopies, morphine pain pump, bilateral knee arthroscopies, surgery for kidney stones. MEDICATIONS: Medications at home include: Magnesium oxide, cyclobenzaprine, Neurontin, [place], Creon, Lopressor, morphine pain pump, Prilosec, Symbicort, vitamin D2, Protonix, simethicone, Lasix. ALLERGIES: None. SOCIAL HISTORY: Chronic smoker, heavy alcohol use and the last drink was about 2 days ago. FAMILY HISTORY: Father diabetes mellitus. Mother has hypertension, hyperlipidemia, and dementia. REVIEW OF SYSTEMS: Review of systems could not be obtained as patient is currently sedated on the vent. PHYSICAL EXAMINATION: He appears comfortable. VITAL SIGNS: Stable. Blood pressure 101/55, pulse rate 89, temperature 98.1. He remains on the vent sedated. HEENT examination unremarkable. Conjunctivae pink. Sclerae anicteric. Oral cavity no lesions. CHEST: Decreased breath sounds bilaterally. HEART: Regular rate and rhythm. ABDOMEN was slightly distended. There was some fullness in the epigastric area. It was soft. No ascites noted. EXTREMITIES: Trace pedal edema. SKIN: No rashes. NEURO: He is sedated on the vent. LABS: Labs done at the time of admission to the hospital: WBC 8.6, hemoglobin 11, platelets 358. AST, ALT, T-bilirubin and alkaline phosphatase are within normal limits. BUN is 8, creatinine 0.59. Serum alcohol less than 10 and Benitez virus PCR is negative. Plasma lactic acid 2.3. IMPRESSION: 1. Acute respiratory failure secondary to aspiration pneumonia. Presently remains on the vent, sedated, on broad-spectrum antibiotics. 2. Chronic relapsing pancreatitis complicated with a large pseudocyst formation that was initially diagnosed in 2 months ago. The patient presented with abdominal pain, nausea, vomiting, coffee-ground emesis and CT scan showing enlarging pancreatic pseudocyst with extrinsic compression in the distal esophagus. 3. History of heavy alcohol abuse. 4. Coffee-grounds emesis probably related to severe gastroesophageal reflux disease. Last upper endoscopy was done a year ago that showed LA grade D reflux esophagitis. RECOMMENDATIONS: 1. Continue with broad-spectrum antibiotics. 2. NG tube for decompression. 3. I had a lengthy discussion with the patient's is at the bedside and because of the large pancreatic pseudocyst that is causing some extrinsic compression on the distal esophagus, recommend transfer to a tertiary institute to [facility] for consideration for endoscopic ultrasound with drainage of the pancreatic pseudocyst. 4. Continue with symptomatic and supportive care. 5. We will follow with you closely. Thank you for this consultation. MMODL / IJN: [id number] /
[2020-11-01] MEDS: NOREPINEPHRINE 8 MG in SODIUM CHLORIDE 0.9% 250 ML IV SCH (15:46)
--- NOTE | 2020-11-01 16:23 | P.PN ---
Subjective 50-year-old male with known and extensive history of alcoholism and alcoholic pancreatitis multiple times in the past with history of pseudocyst came in with complaints of nausea vomiting found to have bowel obstruction or ileus. Computed tomography scan on admission was read as there may be a mechanical bowel obstruction by the pseudocyst at the gastric outlet are gastroparesis . She does have history of chronic pain does have a pain pump dose of for delivery of morphine from this pain pump was increased about 2-3 days before hospitalization. During the course of aspiration patient aspirated stool and went into respiratory failure requiring intubation patient is distress presently on pressor support is in septic shock with still stool coming out of the endotracheal tube. Patient is presently on Zosyn. Patient hasn't elevated lactic acid recent one being 2.5. Patient received total of 7 L of IV fluids secondary to hypotension. Patient is presently sedated on propofol patient is on ventilatory support with FiO2 of 50% PEEP of 5 Tidal volume of 450 respiratory of 20 with ABGs with pH of 7.47 pCO2 of 32 and pO2 of 185 patient has a subclavian triple-lumen candidate after chest x-ray showing extensive bilateral infiltrates. CT of the abdomen as mentioned above showed no small bowel or large bowel obstruction but distended stomach consistent with possible gastric outlet obstruction by pseudocyst. Review of systems: Unable to obtain due to his clinical condition. All inpatient medications were reviewed and appropriate changes in these medications as dictated in the interval history and assessment and plan. Objective - Vital Signs Vital signs: Vital Signs Temp 97.1 F L 11/01/20 16:00 Pulse 100 11/01/20 16:03 Resp 15 11/01/20 16:03 BP 89/58 11/01/20 13:00 Pulse Ox 100 11/01/20 16:00 Intake & Output 10/31/20 11/01/20 11/01/20 18:59 06:59 18:59 Intake Total 4168.441 0858.048 9665.721 Output Total 345 451 230 Balance 3823.441 768.032 5423.721 Weight 72.7 kg 72.7 kg Intake: IV 3900 1100 1400 Piperacillin-Tazobactam 3 100 .375 gm In Sodium Chloride 0.9% 100 ml @ 25 mls/hr IVPB Q8H [facility] Rx#: [id number] Potassium Chloride 20 meq 100 400 In Water For Injection 1 100ml.bag @ 50 mls/hr IVPB Q2H [facility] Rx#: [id number] Sodium Chloride 0.9% 1, 800 1000 1000 000 ml @ 100 mls/hr IV . Q10H [facility] Rx#:[id number] Sodium Chloride 0.9% 1, 3000 000 ml @ 999 mls/hr IV . Q1H1M [facility] Rx#:[id number] Intake, IV Titration 268.441 224.379 228.721 Amount Norepinephrine 8 mg In 17.11 86.813 58.565 Sodium Chloride 0.9% 250 ml @ 0.05 MCG/KG/MIN 6.89 mls/hr IV .Q24H [facility] Rx#: [id number] propofoL 1,000 mg In 251.331 137.566 170.156 Empty Bag 1 bag @ Titrate IV .Q0M [facility] Rx#: [id number] Output: Urine 345 301 230 Oral Regurgitation 150 Other: Voiding Method Indwelling Catheter Indwelling Catheter Indwelling Catheter ABP, PAP, CO, CI - Last Documented Arterial Blood Pressure 121/54 - Exam PHYSICAL EXAMINATION: GENERAL: Intubated sedated HEENT: Pupils are round and equally reacting to light. EOMI. No scleral icterus. No conjunctival pallor. Normocephalic, atraumatic. No pharyngeal erythema. No thyromegaly. CARDIOVASCULAR: S1 and S2 present. No murmurs, rubs, or gallops. PULMONARY: Chest is clear to auscultation, no wheezing or crackles. ABDOMEN: Distended tympanic absent or really sluggish bowel sounds MUSCULOSKELETAL: No joint swelling or deformity. EXTREMITIES: No cyanosis, clubbing, or pedal edema. NEUROLOGICAL: Sedated on Propofol SKIN: No rashes. - Labs CBC & Chem 7: 11/01/20 03:45 11/01/20 12:58 Labs: Abnormal Lab Results - Last 24 Hours (Table) 10/31/20 10/31/20 10/31/20 Range/Units 21:52 21:54 21:54 RBC 2.52 L (4.30-5.90) m/uL Hgb 8.2 L (13.0-17.5) gm/dL Hct 25.9 L (39.0-53.0) % MCV 102.6 H (80.0-100.0) fL Lymphocytes # 0.5 L (1.0-4.8) k/uL ABG pH (7.35-7.45) ABG pCO2 (35-45) mmHg ABG pO2 (83-108) mmHg ABG Total CO2 (19-24) mmol/L ABG O2 Saturation (94-97) % Potassium (3.5-5.1) mmol/L Chloride (98-107) mmol/L BUN (9-20) mg/dL Creatinine (0.66-1.25) mg/dL Glucose (74-99) mg/dL POC Glucose (mg/dL) 183 H (75-99) mg/dL Plasma Lactic Acid Bandar 2.2 H* (0.7-2.0) mmol/L Calcium (8.4-10.2) mg/dL Total Protein (6.3-8.2) g/dL Albumin (3.5-5.0) g/dL 11/01/20 11/01/20 11/01/20 Range/Units 00:52 03:45 03:45 RBC 2.42 L (4.30-5.90) m/uL Hgb 8.4 L (13.0-17.5) gm/dL Hct 24.7 L (39.0-53.0) % MCV 102.1 H (80.0-100.0) fL Lymphocytes # 0.5 L (1.0-4.8) k/uL ABG pH (7.35-7.45) ABG pCO2 (35-45) mmHg ABG pO2 (83-108) mmHg ABG Total CO2 (19-24) mmol/L ABG O2 Saturation (94-97) % Potassium 2.5 L* (3.5-5.1) mmol/L Chloride 110 H (98-107) mmol/L BUN 6 L (9-20) mg/dL Creatinine 0.55 L (0.66-1.25) mg/dL Glucose 154 H (74-99) mg/dL POC Glucose (mg/dL) (75-99) mg/dL Plasma Lactic Acid Bandar 2.3 H* (0.7-2.0) mmol/L Calcium 6.7 L (8.4-10.2) mg/dL Total Protein 3.8 L (6.3-8.2) g/dL Albumin 1.6 L (3.5-5.0) g/dL 11/01/20 11/01/20 11/01/20 Range/Units 05:23 11:32 12:58 RBC (4.30-5.90) m/uL Hgb (13.0-17.5) gm/dL Hct (39.0-53.0) % MCV (80.0-100.0) fL Lymphocytes # (1.0-4.8) k/uL ABG pH 7.49 H (7.35-7.45) ABG pCO2 32 L (35-45) mmHg ABG pO2 185 H (83-108) mmHg ABG Total CO2 26 H (19-24) mmol/L ABG O2 Saturation 99.6 H (94-97) % Potassium 3.1 L (3.5-5.1) mmol/L Chloride (98-107) mmol/L BUN (9-20) mg/dL Creatinine (0.66-1.25) mg/dL Glucose (74-99) mg/dL POC Glucose (mg/dL) 149 H (75-99) mg/dL Plasma Lactic Acid Bandar (0.7-2.0) mmol/L Calcium (8.4-10.2) mg/dL Total Protein (6.3-8.2) g/dL Albumin (3.5-5.0) g/dL Microbiology - Last 24 Hours (Table) 10/31/20 05:21 Blood Culture - Preliminary Blood No Growth after 24 hours 10/31/20 08:44 Gram Stain - Preliminary Sputum Sputum Culture - Preliminary 10/30/20 19:13 Blood Culture - Preliminary Blood No Growth after 24 hours 10/31/20 06:15 Urine Culture - Preliminary Urine,Voided Assessment and Plan Plan: -Acute hypoxic respiratory failure requiring mechanical ventilation patient was intubated On 10/31/2020. Hypoxic respiratory failure is secondary to aspiration pneumonia and patient is presently on IV Zosyn which will be continued -septic shock secondary to aspiration pneumonia and patient is presently on pressor support. -Gastric outlet obstruction probably secondary to large pancreatic pseudocyst did -Chronic pain syndrome patient has a morphine pump and patient does have history of chronic narcotic use -COPD -Gastro esophageal reflux disease -Hyperlipidemia -f benign prostatic hypertrophy
--- NOTE | 2020-11-01 16:25 | P.DS ---
Providers Date of admission: 10/31/20 06:33 Attending physician: Celestina Regan Consults: 10/30/20 19:38 Consult Physician Urgent Consulting Provider: Consuelo Kellogg Consult Reason/Comments: GI Do you want consulting provider notified?: Yes 10/31/20 06:27 Consult Physician Routine Consulting Provider: Herman Samuel Consult Reason/Comments: aspiration pneumonia, hypoxemia Do you want consulting provider notified?: Already Contacted 11/01/20 08:21 Consult Physician Routine Consulting Provider: Grayson Fox Consult Reason/Comments: abdominal pain, distention, gastroparesis Do you want consulting provider notified?: Yes 11/01/20 08:23 Consult Physician Routine Consulting Provider: Casey Gibbons Consult Reason/Comments: pain pump, decrease the rate please Do you want consulting provider notified?: Yes Primary care physician: [facility] Course: 50-year-old male with known and extensive history of alcoholism and alcoholic pancreatitis multiple times in the past with history of pseudocyst came in with complaints of nausea vomiting found to have bowel obstruction or ileus. Computed tomography scan on admission was read as there may be a mechanical bowel obstruction by the pseudocyst at the gastric outlet are gastroparesis . She does have history of chronic pain does have a pain pump dose of for delivery of morphine from this pain pump was increased about 2-3 days before hospitalization. During the course of aspiration patient aspirated stool and went into respiratory failure requiring intubation patient is distress presently on pressor support is in septic shock with still stool coming out of the endotracheal tube. Patient is presently on Zosyn. Patient hasn't elevated lactic acid recent one being 2.5. Patient received total of 7 L of IV fluids secondary to hypotension. Patient is presently sedated on propofol patient is on ventilatory support with FiO2 of 50% PEEP of 5 Tidal volume of 450 respiratory of 20 with ABGs with pH of 7.47 pCO2 of 32 and pO2 of 185 patient has a subclavian triple-lumen candidate after chest x-ray showing extensive bilateral infiltrates. CT of the abdomen as mentioned above showed no small bowel or large bowel obstruction but distended stomach consistent with possible gastric outlet obstruction by pseudocyst. PHYSICAL EXAMINATION: GENERAL: Intubated sedated HEENT: Pupils are round and equally reacting to light. EOMI. No scleral icterus. No conjunctival pallor. Normocephalic, atraumatic. No pharyngeal erythema. No thyromegaly. CARDIOVASCULAR: S1 and S2 present. No murmurs, rubs, or gallops. PULMONARY: Chest is clear to auscultation, no wheezing or crackles. ABDOMEN: Distended tympanic absent or really sluggish bowel sounds MUSCULOSKELETAL: No joint swelling or deformity. EXTREMITIES: No cyanosis, clubbing, or pedal edema. NEUROLOGICAL: Sedated on Propofol SKIN: No rashes. Assessment and Plan Plan: -Acute hypoxic respiratory failure requiring mechanical ventilation patient was intubated On 10/31/2020. Hypoxic respiratory failure is secondary to aspiration pneumonia and patient is presently on IV Zosyn which will be continued -septic shock secondary to aspiration pneumonia and patient is presently on pressor support. -Gastric outlet obstruction probably secondary to large pancreatic pseudocyst did -Chronic pain syndrome patient has a morphine pump and patient does have history of chronic narcotic use, rate of morphine delivery through this pump was decreased by 25% by pain and bladder management services here. -COPD -Gastro esophageal reflux disease -Hyperlipidemia -benign prostatic hypertrophy Patient was a valid by gastroneurology and they recommended transfer to tertiary care facility for possible cystogastrostomy discussed with the surgical intensive care physician at [facility] who accepted the patient. Patient Condition at Discharge: Stable Plan - Discharge Summary Discharge Rx Participant: No New Discharge Prescriptions: No Action Magnesium Oxide [Mag-Ox] 400 mg PO DAILY Metoprolol Tartrate [Lopressor] 25 mg PO BID HYDROcodone/APAP 5-325MG [[place] 5-325] 1 tab PO BID Cyclobenzaprine HCl 10 mg PO BID PRN PRN Reason: Pain Lipase/Protease/Amylase [[place] 24,000 Units Capsule] 48,000 units PO AC- TID Gabapentin [Neurontin] 400 mg PO TID Omeprazole [PriLOSEC] 40 mg PO DAILY Morphine Pain Pump 1 dose INTRATHECA CONTINUOUS Ergocalciferol (Vitamin D2) [Drisdol (50,000 Iu)] 1,250 mcg PO MO Budesonide/Formoterol Fumarate [Symbicort 160-4.5 Mcg Inhaler] 2 puff INHALATION RT-BID Simethicone 80 mg PO TID #30 tab.chew Furosemide [Lasix] 20 mg PO BID Pantoprazole Sodium [Protonix] 40 mg PO BID 30 Days #60 tablet.dr Discharge Medication List Magnesium Oxide [Mag-Ox] 400 mg PO DAILY 09/18/17 [History] Cyclobenzaprine HCl 10 mg PO BID PRN 11/25/19 [History] Gabapentin [Neurontin] 400 mg PO TID 11/25/19 [History] HYDROcodone/APAP 5-325MG [[place] 5-325] 1 tab PO BID 11/25/19 [History] Lipase/Protease/Amylase [[place] 24,000 Units Capsule] 48,000 units PO AC-TID 11/25/19 [History] Metoprolol Tartrate [Lopressor] 25 mg PO BID 11/25/19 [History] Morphine Pain Pump 1 dose INTRATHECA CONTINUOUS 11/25/19 [History] Omeprazole [PriLOSEC] 40 mg PO DAILY 11/25/19 [History] Budesonide/Formoterol Fumarate [Symbicort 160-4.5 Mcg Inhaler] 2 puff INHALATION RT-BID 06/14/20 [History] Ergocalciferol (Vitamin D2) [Drisdol (50,000 Iu)] 1,250 mcg PO MO 06/14/20 [History] Pantoprazole Sodium [Protonix] 40 mg PO BID 30 Days #60 tablet. 09/16/20 [Rx] Simethicone 80 mg PO TID #30 tab.chew 09/16/20 [Rx] Furosemide [Lasix] 20 mg PO BID 09/22/20 [History] Follow up Appointment(s)/Referral(s): Kerri Quinones MD [Primary Care Provider] - 1-2 days
[2020-11-01 17:22] LABS: Glucose,Whole Blood 117 mg/dL (75-99)
[2020-11-01 20:31] LABS: Glucose,Whole Blood 114 mg/dL (75-99)
[2020-11-01 20:38] VITALS: TEMP 98.4
[2020-11-01] MEDS ORDERED: POTASSIUM CHLORIDE 20 MEQ in WATER FOR INJECTION 1 100ML.BAG IVPB SCH (22:00)
[2020-11-01 22:19] VITALS: PULSE 90; RESP 14
== END 2020-11-01 22:20 | disposition short-term general hospital, planned readmission (82) | DRG 380 ==
LOC: EC 16:38 → 4SSUR 19:37 → 2SICU 10-31 06:32 → OBSVTOIN 10-31 06:33
PROVIDERS: ADMIT Internal Medicine; ATTEND Internal Medicine
PROC: 5A1945Z Respiratory Ventilation, 24-96 Consecutive Hours (ICD-10-PCS; principal; 2020-10-31)
PROC: 3E043XZ Introduction of Vasopressor into Central Vein, Percutaneous Approach (ICD-10-PCS; 2020-10-31)
PROC: 0BH17EZ Insertion of Endotracheal Airway into Trachea, Via Natural or Artificial Opening (ICD-10-PCS; 2020-10-31)
PROC: 02HV33Z Insertion of Infusion Device into Superior Vena Cava, Percutaneous Approach (ICD-10-PCS; 2020-10-31)
PROC: B5181ZA Fluoroscopy of Superior Vena Cava using Low Osmolar Contrast, Guidance (ICD-10-PCS; 2020-10-31)
PROC: B548ZZA Ultrasonography of Superior Vena Cava, Guidance (ICD-10-PCS; 2020-10-31)
PROC: 0D9770Z Drainage of Stomach, Pylorus with Drainage Device, Via Natural or Artificial Opening (ICD-10-PCS; 2020-10-31)
PROC: 4A133B1 Monitoring of Arterial Pressure, Peripheral, Percutaneous Approach (ICD-10-PCS; 2020-10-31)
PROC: 4A133J1 Monitoring of Arterial Pulse, Peripheral, Percutaneous Approach (ICD-10-PCS; 2020-10-31)
DX: K31.1 Adult hypertrophic pyloric stenosis (principal); J69.0 Pneumonitis due to inhalation of food and vomit; J96.01 Acute respiratory failure with hypoxia; A41.9 Sepsis, unspecified organism; R65.21 Severe sepsis with septic shock; K86.1 Other chronic pancreatitis; K86.2 Cyst of pancreas; K86.3 Pseudocyst of pancreas; K92.0 Hematemesis; N13.30 Unspecified hydronephrosis; Z20.822 Contact with and (suspected) exposure to COVID-19; D64.9 Anemia, unspecified; K70.9 Alcoholic liver disease, unspecified; E78.5 Hyperlipidemia, unspecified; I95.9 Hypotension, unspecified; E87.6 Hypokalemia; F10.20 Alcohol dependence, uncomplicated; K21.00 Gastro-esophageal reflux disease with esophagitis, without bleeding; F32.9 Major depressive disorder, single episode, unspecified; D63.8 Anemia in other chronic diseases classified elsewhere; F41.9 Anxiety disorder, unspecified; N40.1 Benign prostatic hyperplasia with lower urinary tract symptoms; R33.8 Other retention of urine; G89.4 Chronic pain syndrome; I10 Essential (primary) hypertension; J44.9 Chronic obstructive pulmonary disease, unspecified; K31.84 Gastroparesis; K44.9 Diaphragmatic hernia without obstruction or gangrene; K76.0 Fatty (change of) liver, not elsewhere classified; Z79.51 Long term (current) use of inhaled steroids; Z79.891 Long term (current) use of opiate analgesic; Z79.899 Other long term (current) drug therapy; Z87.11 Personal history of peptic ulcer disease; Z87.442 Personal history of urinary calculi; Z90.49 Acquired absence of other specified parts of digestive tract; Z87.19 Personal history of other diseases of the digestive system
CPT/HCPCS: 36415; 36600; 71045; 74177; 80053; 80320; 81001; 82150; 82805; 83605; 83690; 83735; 84132; 84484; 85025; 85610; 85730; 86850; 86900; 86901; 87040; 87070; 87086; 87205; 87635; 93005; 94002; 94003; 94640; 94760; 96361; 96374; 96375; 99285

== ENCOUNTER → 2023-01-09 | Outpatient (CLI) | payer MEDICARE, OTHER ==
--- NOTE | 2023-01-10 10:03 | NM ---
EXAMINATION TYPE: NM DatScan Brain SPECT DATE OF EXAM: 01/09/2023 COMPARISON: NONE HISTORY: Tremor TECHNIQUE: 10 drops of Lugol's solution was administered 1 hour prior to injection as a thyroid bloc ace agent. After the administration of 4.5 mCi I-123 Ioflupane DaTscan. Images obtained [address] injection. SPECT images of the brain were acquired with axial and coronal reconstructions. FINDINGS: The axial SPECT images demonstrate normal background activity. Accounting for head tilt, t here appears to be slight asymmetrically blunted comma-shaped appearance of the right corpus striatum . IMPRESSION: Slightly blunted striatal activity on the left may indicate early changes of idiopathic P arkinson's disease or Parkinsonian syndrome.
== END | disposition home or self-care (01) ==
LOC: RADNMMAIN 10:24
PROVIDERS: ATTEND Psychiatry & Neurology Neurology
DX: R25.1 Tremor, unspecified (principal)
CPT/HCPCS: 78803; A9584

== ENCOUNTER → 2023-07-16 | Outpatient (CLI) | payer MEDICARE ==
[2023-07-16 15:38] LABS: BUN/Creat Ratio 5.29 Ratio (12.00-20.00); Blood Urea Nitrogen 3.7 mg/dL (9.0-27.0); Calcium 8.1 mg/dL (8.7-10.3); Carbon Dioxide 25.2 mmol/L (21.6-31.8); Chloride 102 mmol/L (96-109); Glucose 120 mg/dL (70-110); Potassium 4.4 mmol/L (3.5-5.5); Sodium 139 mmol/L (135-145)
[2023-07-16 15:59] LABS: Basophils # (A) 0.05 X 10*3/uL (0.00-0.10); Basophils % (A) 0.7 %; Eosinophils # (A) 0.08 X 10*3/uL (0.04-0.35); HCT 33.8 % (39.6-50.0); HGB 11.1 g/dL (13.0-17.0); Lymphocytes # (A) 2.05 X 10*3/uL (0.90-5.00); Lymphocytes % (A) 26.8 %; MCH 33.6 pg (27.0-32.0); MCHC 32.8 g/dL (32.0-37.0); MCV 102.4 FL (80.0-97.0); Mean Platelet Volume 10.6 FL (9.5-12.2); Monocytes # (A) 0.66 X 10*3/uL (0.20-1.00); Monocytes % (A) 8.6 %; NRBC Per 100 WBC 0 X 10*3/uL (0.00-0.01); Neutrophils # (A) 4.76 X 10*3/uL (1.80-7.70); Neutrophils % (A) 62.2 %; Platelet Count 419 X 10*3/uL (140-440); WBC 7.65 X 10*3/uL (4.50-10.00)
== END | disposition home or self-care (01) ==
LOC: LABPAT 11:09
PROVIDERS: ATTEND Urology
DX: Z01.812 Encounter for preprocedural laboratory examination (principal); R33.9 Retention of urine, unspecified
CPT/HCPCS: 36415; 80048; 85025

== ENCOUNTER 2023-07-19 11:22 | Day surgery (SDC) | payer MEDICARE, OTHER ==
--- NOTE | 2023-07-19 10:41 | P.GSHP ---
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 He previously performed intermittent self- catheterization, but states that he is now unable to do so. His urinary retention has been managed with an indwelling Friedman catheter. This has become uncomfortable and he thus desires placement of a suprapubic cystostomy tube. - Cardiovascular Cardiovascular: Reports high blood pressure - Genitourinary (Male) Genitourinary: Reports as per HPI Past Medical History Past Medical History: COPD, CVA/TIA, GERD/Reflux, GI Bleed, Hyperlipidemia, Hypertension, Liver Disease, Osteoarthritis (OA), Pneumonia, Prostate Disorder, Renal Disease, Skin Disorder Additional Past Medical History / Comment(s): HX abdominal pain/paraesophageal hernia or pancreatic pseudocyst-pt states he f/u at Dr. Kellogg's office and was told it is a pancreatic mass-waiting for further instructions. Other hx: ETOH abuse, recurrent pancreatitis, alcoholic hepatitis, chronic back pain, neuropathy bilateral feet and chronic urinary retention since back surgery, self caths prn, chronic L hydroureteronephrosis d/t reflux, MORPHINE PAIN PUMP L ABDOMIN, hiatal hernia, PUD, upper and lower GI bleeds, BPH, pt states surgery to remove kidney stones. 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 cellulitits to lower legs- weeping. dressings at night. 02 at 2 liters at night. History of Any Multi-Drug Resistant Organisms: None Reported Past Surgical History: Back Surgery, Bowel Resection, Cholecystectomy, Orthopedic Surgery Additional Past Surgical History / Comment(s): EGDs, colonoscopy, low back titanium plate/rods/cages, spinal stimulator since removed, MORPHINE PAIN PUMP, bronchoscopy, surgery for kidney stones, bilateral knee arthroscopies, R 5th finger reattachment. Past Anesthesia/Blood Transfusion Reactions: No Reported Reaction Smoking Status: Current every day smoker - Past Family History Father Family Medical History: Diabetes Mellitus Additional Family Medical History / Comment(s): Mother Family Medical History: Dementia, Hyperlipidemia, Hypertension Additional Family Medical History / Comment(s): Mother Medications and Allergies Home Medications Medication Instructions Recorded Confirmed Type Cyclobenzaprine HCl 10 mg PO BID 11/25/19 07/16/23 History Gabapentin [Neurontin] 400 mg PO TID 11/25/19 07/16/23 History HYDROcodone/APAP 5-325MG [[place] 1 tab PO BID 11/25/19 07/16/23 History 5-325] Metoprolol Tartrate [Lopressor] 25 mg PO BID 11/25/19 07/16/23 History Morphine Pain Pump 1 dose INTRATHECA CONTINUOUS 11/25/19 07/16/23 History Omeprazole [PriLOSEC] 40 mg PO DAILY 11/25/19 07/16/23 History Budesonide/Formoterol Fumarate 2 puff INHALATION RT-BID PRN 06/14/20 07/16/23 Hi story [Symbicort 160-4.5 Mcg Inhaler] Furosemide [Lasix] 20 mg PO BID 09/22/20 07/16/23 History Aspirin 81 mg PO DAILY 07/16/23 07/16/23 History Atorvastatin Calcium [Lipitor] 40 mg PO HS 07/16/23 07/16/23 History Simethicone [Simethicone Chew] 80 mg PO TID 07/16/23 07/16/23 History Tamsulosin HCl [Flomax] 0.4 mg PO DAILY 07/16/23 07/16/23 History Unk Amantadine 1 tab PO DAILY 07/16/23 07/16/23 History Unk Folic Acid 1 tab PO DAILY 07/16/23 07/16/23 History Allergies Allergy/AdvReac Type Severity Reaction Status Date / Time No Known Allergies Allergy Verified 07/16/23 10:55 Surgical - Exam - General well developed, well nourished, no distress - Respiratory normal respiratory effort - Abdomen Abdomen: soft, non tender, no guarding, no rigid, no rebound - Genitourinary normal penis with no external lesions, testicles non-tender - Psychiatric oriented to time, oriented to person, oriented to place, speech is normal, memory intact Assessment and Plan (1) Urinary retention Status: Acute Code(s): R33.9 - RETENTION OF URINE, UNSPECIFIED SNOMED Code(s): 099872964 Plan: Cystoscopy with insertion of suprapubic cystostomy tube. The patient has undergone upper abdominal surgery but has no infraumbilical surgical scars. In view of this, I am hopeful that the suprapubic cystostomy tube can be placed via a percutaneous approach. However, the patient is aware that it may require an open approach in order to safely place the tube. The pros and cons of a suprapubic cystostomy tube versus an indwelling Friedman catheter have been reviewed with the patient and his in detail. He has also been made aware of potential risks associated with placement of a suprapubic cystostomy tube, which include anesthesia, bleeding, infection, bladder laceration with urinary leak, and injury to adjacent organs.
[~2023-07-19 11:22] MED LIST changes: -DEXAMETHASONE SOD PHOSPHATE 10 MG/ML 1 ML VIAL IV ONE; +MIDAZOLAM 2 MG/2 ML VIAL IV PRN; -ONDANSETRON 4 MG/2 ML VIAL IVP ONE; -SODIUM CHLORIDE 0.9% 1,000 ML IV ONE
[2023-07-19] MEDS: LACTATED RINGERS 1,000 ML IV ONE (12:10)
[2023-07-19] MEDS: DEXAMETHASONE SOD PHOSPHATE 4 MG/ML 1 ML VIAL IV ONE (12:59)
[2023-07-19] MEDS: ONDANSETRON 4 MG/2 ML VIAL IVP ONE (13:00)
[2023-07-19] MEDS: GENTAMICIN 100 MG in SODIUM CHLORIDE 0.9% 100 ML IVPB PRN (13:08)
[2023-07-19] MEDS ORDERED: MIDAZOLAM 2 MG/2 ML VIAL ONE (13:11)
[2023-07-19] MEDS ORDERED: LIDOCAINE 1% INJ 10MG/ML (20 ML MDV) ONE (13:11)
[2023-07-19] MEDS ORDERED: fentaNYL (PF) 50 MCG/ML 2 ML AMP ONE (13:11)
[2023-07-19] MEDS ORDERED: PROPOFOL 10 MG/ML 20 ML VIAL IV ONE (13:11)
--- NOTE | 2023-07-19 14:08 | P.OP ---
Date of Procedure: 07/19/23 Preoperative Diagnosis: Chronic urinary retention Postoperative Diagnosis: Same Procedure(s) Performed: Cystoscopy, insertion of suprapubic cystostomy tube Anesthesia: PATRICIO Surgeon: Sivakumar Velazquez Estimated Blood Loss (ml): 5 IV fluids (ml): 200 Pathology: none sent Condition: stable Disposition: PACU Indications for Procedure: The patient is a 52-year-old white male with chronic urinary retention secondary to an atonic bladder. He previously performed intermittent self- catheterization, but states that he is now unable to do so. His urinary retention has been managed with an indwelling Friedman catheter. This has become uncomfortable and he thus desires placement of a suprapubic cystostomy tube. Operative Findings: Normal bladder, other than obvious left vesicoureteral reflux. Successful placement of suprapubic cystostomy tube. Description of Procedure: The patient was taken to the operating room and placed in the dorsolithotomy position, with his legs supported in Javi stirrups. The abdomen and external genitalia were prepped and draped sterilely. The 30 degree lens was used to introduce the 19 Japanese start cystoscopic sheath through the urethra and into the bladder under direct vision. The anterior urethra appeared normal. The prostatic urethra was unremarkable, showing no evidence of obstruction. The bladder was examined in its entirety. The right ureteral orifice appeared normal. The left ureteral orifice was gaping and obviously reflexed. It was actually possible to advance the cystoscope into the left distal ureter. The visualized portion of the ureter appeared normal. There was evidence of mild catheter cystitis at the bladder dome. The bladder was otherwise unremarkable. The bladder was filled to capacity, and suprapubic distention was palpable. The scalpel was used to make a small transverse midline incision 2 fingerbreadths above the pubis. A Joss sound was advanced into the bladder. The tip of the sound was directed anteriorly through that incision. A silk suture was passed through a hole drilled in the tip of the sound, and that suture was utilized to tie an 18 Japanese Friedman catheter to the tip of the [place] sound. The sound was then withdrawn, pulling the catheter through the bladder and urethra. The catheter was then detached from the sound, and slowly withdrawn as the cystoscope followed the catheter. Once it was evident that the catheter tip was within the urinary bladder, the Friedman catheter balloon was inflated and the cystoscope was removed. The catheter was then sutured to the skin using 2-0 silk suture. A drain sponge was placed around the catheter incision site, and the catheter was left to gravity drainage. The patient tolerated the procedure well and was taken to the recovery in stable condition.
[2023-07-19 14:25] VITALS: TEMP 97.2
[2023-07-19] MEDS: HYDROmorphone 0.5 MG/0.5 ML SYRINGE IVP PRN (14:38)
[2023-07-19] MEDS ORDERED: KETOROLAC 15 MG/ML 1 ML VIAL ONE (15:34)
[2023-07-19] MEDS ORDERED: HYDROcodone/APAP 5-325MG 1 EACH TAB ONE (15:34)
[2023-07-19] MEDS: KETOROLAC 15 MG/ML 1 ML VIAL IVP ONE ×2 (15:37→15:38)
[2023-07-19] MEDS: HYDROcodone/APAP 5-325MG 1 EACH TAB PO ONE ×2 (15:37)
[2023-07-19 16:02] VITALS: BP 131/85; PULSE 78; RESP 20
== END 2023-07-19 16:45 | disposition home or self-care (01) ==
LOC: OR 11:22
PROVIDERS: ATTEND Urology
DX: N40.1 Benign prostatic hyperplasia with lower urinary tract symptoms (principal); J44.9 Chronic obstructive pulmonary disease, unspecified; K21.9 Gastro-esophageal reflux disease without esophagitis; E78.5 Hyperlipidemia, unspecified; I10 Essential (primary) hypertension; F17.200 Nicotine dependence, unspecified, uncomplicated; Z87.442 Personal history of urinary calculi; Z86.73 Personal history of transient ischemic attack (TIA), and cerebral infarction without residual deficits; Z90.49 Acquired absence of other specified parts of digestive tract; Z83.3 Family history of diabetes mellitus; Z83.49 Family history of other endocrine, nutritional and metabolic diseases; Z79.51 Long term (current) use of inhaled steroids; Z79.82 Long term (current) use of aspirin; Z79.899 Other long term (current) drug therapy
CPT/HCPCS: 52005; C2627; J2250; J1100; J0690; J2405; J2001; J3010; J1580; J1885; J2704; J1170

== ENCOUNTER 2024-01-22 13:48 | Inpatient (IN) | payer MEDICARE ==
--- NOTE | 2024-01-22 14:52 | ED ---
Abdominal Pain HPI - General Source: patient, RN notes reviewed Mode of arrival: EMS Limitations: no limitations <RolandjasonTen - Last Filed: 01/22/24 14:51> - General Source: patient Mode of arrival: EMS Limitations: no limitations - History of Present Illness MD Complaint: abdominal pain <Catalina Aviles - Last Filed: 01/22/24 23:08> - General Chief Complaint: Abdominal Pain Stated Complaint: Abd Pain Time Seen by Provider: 01/22/24 14:06 - History of Present Illness Initial Comments: Quick note 53-year-old male presents emergency room chief complaint of abdominal pain. Patient states that his suprapubic catheter is not draining and is exchanged today at [facility]. Patient states that this was placed by Dr. Marcus delgado bladder. He states he is to self cath. Patient states he had increasing pain, pressure and states he had urine leak out of his penis. Patient denies any fevers. (Ten Quigley) This is a 53-year-old male who presents to the emergency department for abdominal pain. Patient has a suprapubic catheter due to neurogenic bladder. He is concerned that his catheter has not been draining, causing him to retain urine, which has been very painful. He had his catheter replaced at [facility] today, however it is still not working. He is also having very little output. Denies any fevers or chills. States that he would like the suprapubic catheter removed, as he is able to urinate on his own and he keeps having problems with it. He is currently receiving antibiotics via PICC line for an infection in his right foot, but has not been diagnosed with a urinary tract infection recently. (Catalina Aviles) - Related Data Home Medications Medication Instructions Recorded Confirmed HYDROcodone/APAP 5-325MG [Sebring 1 tab PO Q6H PRN 11/25/19 01/22/24 5-325] Tamsulosin HCl [Flomax] 0.4 mg PO HS@2100 07/16/23 01/22/24 0.9 % Sodium Chloride [Sodium 10 ml IV Q12H 01/22/24 01/22/24 Chloride Flush] Acetaminophen Tab [Tylenol] 650 mg PO Q6H PRN 01/22/24 01/22/24 Cefepime [Maxipime] 2 gm IVPB Q12H 01/22/24 01/22/24 Glucerna Shake 1 can PO HS@209901/22/24 01/22/24 Lipase/Protease/Amylase [Rebel Belcher 1 cap PO TID-W/MEALS 01/22/24 01/22/24 24,000 Units Capsule] Omeprazole [PriLOSEC] 20 mg PO BID@0900,209901/22/24 01/22/24 Ondansetron [Zofran] 4 mg PO TID PRN 01/22/24 01/22/24 Patient Own Pump 0 bag 01/22/24 amantadine HCL [Amantadine] 100 mg PO BID@0900,209901/22/24 01/22/24 Allergies Allergy/AdvReac Type Severity Reaction Status Date / Time No Known Allergies Allergy Verified 01/22/24 19:52 Review of Systems ROS Other: All systems not noted in ROS Statement are negative. <Ten Quigley - Last Filed: 01/22/24 14:51> ROS Other: All systems not noted in ROS Statement are negative. <Catalina Aviles - Last Filed: 01/22/24 23:08> ROS Statement: Those systems with pertinent positive or pertinent negative responses have been documented in the HPI. Past Medical History Past Medical History: COPD, GERD/Reflux, GI Bleed, Hyperlipidemia, Hypertension, Liver Disease, Osteoarthritis (OA), Pneumonia, Prostate Disorder Additional Past Medical History / Comment(s): Pt recently admitted to [facility] on 09/15/20 with abdominal pain/paraesophageal hernia or pancreatic pseudocyst-pt states he f/u at Dr. Kellogg's office and was told it is a pancreatic mass-waiting for further instructions. Other hx: ETOH abuse, recurrent pancreatitis, alcoholic hepatitis, chronic back pain, neuropathy bilateral feet and chronic urinary retention since back surgery, self caths prn, chronic L hydroureterone phrosis d/t reflux, MORPHINE PAIN PUMP L ABDOMIN, L shoulder pain/dislocation, hiatal hernia, PUD, upper and lower GI bleeds, BPH, pt states surgery to remove kidney stones. History of Any Multi-Drug Resistant Organisms: None Reported Past Surgical History: Back Surgery, Cholecystectomy, Orthopedic Surgery Additional Past Surgical History / Comment(s): EGDs, colonoscopy, low back titanium plate/rods/cages, spinal stimulator since removed, MORPHINE PAIN PUMP, bronchoscopy, surgery for kidney stones, bilateral knee arthroscopies, R 5th finger reattachment. Past Anesthesia/Blood Transfusion Reactions: No Reported Reaction Past Psychological History: Anxiety, Depression Smoking Status: Current every day smoker Past Alcohol Use History: Heavy Past Drug Use History: None Reported - Past Family History Father Family Medical History: Diabetes Mellitus Additional Family Medical History / Comment(s): Mother Family Medical History: Dementia, Hyperlipidemia, Hypertension Additional Family Medical History / Comment(s): Mother <Ten Quigley - Last Filed: 01/22/24 14:51> General Exam Limitations: no limitations <Ten Quigley - Last Filed: 01/22/24 14:51> Limitations: no limitations General appearance: alert, in no apparent distress Head exam: Present: atraumatic, normocephalic, normal inspection Respiratory exam: Present: normal lung sounds bilaterally. Absent: respiratory distress, wheezes, rales, rhonchi, stridor Cardiovascular Exam: Present: regular rate, normal rhythm, normal heart sounds. Absent: systolic murmur, diastolic murmur, rubs, gallop, clicks GI/Abdominal exam: Present: soft, distended, tenderness, normal bowel sounds Neurological exam: Present: alert, oriented X3, CN II-XII intact Psychiatric exam: Present: normal affect, normal mood <Catalina Aviles - Last Filed: 01/22/24 23:08> - General Exam Comments Initial Comments: Visual Physical Exam Vital signs reviewed General: Well-appearing, nontoxic, no acute distress. Head: Normocephalic, atraumatic Eyes: PERRLA, EOMI ENT: Airway patent Chest: Nonlabored breathing Skin: No visual rash, normal skin tone Neuro: Alert and oriented 3 Musculoskeletal: No gross abnormalities (Ten Quigley) Course Vital Signs 01/22/24 01/22/24 01/22/24 14:00 16:58 20:00 Temperature 98.9 F 98.3 F Pulse Rate 106 H 94 97 Respiratory 20 16 16 Rate Blood Pressure 120/75 135/80 141/95 O2 Sat by Pulse 99 100 99 Oximetry Medical Decision Making <Ten Quigley - Last Filed: 01/22/24 14:51> - Lab Data Result diagrams: 01/22/24 16:24 01/22/24 16:24 - Radiology Data Radiology results: report reviewed, image reviewed <Catalina Aviles - Last Filed: 01/22/24 23:08> - Medical Decision Making I completed the quick note portion of this chart signed Ten Quigley PA-C (Ten Quigley) This is a 53 year old male who presents to the emergency department for abdominal pain. Was pt. sent in by a medical professional or institution? @ -No Did you speak to anyone other than the patient for history? @ -No Did you review nursing and triage notes? @ -Yes, and I agree, it is accurate with regards to the patient's symptoms. Were old charts reviewed? @ -No Differential Diagnosis? @ -Differential Abdominal Pain Men: Appendicitis, cholecystitis, diverticulosis, ischemic bowel, pancreatitis, hepatitis, UTI, gastroenteritis, AAA, incarcerated hernia, bowel obstruction, constipation, inflammatory bowel, hepatitis, peptic ulcer disease, splenic infarction, perforated viscus, testicular torsion, this is not meant to be an all-inclusive list EKG interpreted by me (3pts min.)? @ -Not obtained X-rays interpreted by me (1pt min.)? @ -KUB x-ray obtained. My interpretation identifies no dilation of the bowel loops. X-ray of the right foot obtained. My interpretation identifies no acute fractures. CT interpreted by me (1pt min.)? @ -CT scan of the abdomen and pelvis obtained. My interpretation identifies bladder wall thickening. U/S interpreted by me (1pt. min.)? @ -Not obtained What testing was considered but not performed? (CT, X-rays, U/S, labs)? Why? @ -None What meds were considered but not given? Why? @ -None Did you discuss the management of the patient with other professionals? @ -Yes, Aleyda Christiansen with [facility], who accepts the patient for admission. Did you reconcile home meds? @ -Yes Was smoking cessation discussed for >3mins.? @ -No Was critical care preformed (if so, how long)? @ -No Were there social determinants of health that impacted care today? How? (Homelessness, low income, unemployed, alcoholism, drug addiction, transportation, low edu. Level, literacy, decrease access to med. care, custodial, rehab)? @ -No Was there de-escalation of care discussed even if they declined? (Discuss DNR or withdrawal of care, Hospice)? @ -No What co-morbidities impacted this encounter? (DM, HTN, Smoking, COPD, CAD, Cancer, CVA, Hep., AIDS, mental health diagnosis, sleep apnea, morbid obesity)? @ -Neurogenic bladder Was patient admitted / discharged? @ -Admitted. Lab work demonstrates leukocytosis with a white blood cell count o f 12.9. He is also hyponatremic with a sodium of 124. Nursing staff attempted to flush his catheter, and it flushed easily, however it did not drain back out after being flushed. The patient was changed as well and they noticed that his brief contained urine. States that he is still able to urinate in the traditional way to some extent. KUB x-ray obtained demonstrating a nonspecific abdomen and advised correlation for constipation. Given the patient's pain, leukocytosis, and palpable distention on exam, we proceeded with a CT scan of the abdomen and pelvis. This demonstrates that the suprapubic Friedman catheter has a tip inflated in the left ureter. There is also hyperemia and urothelial thickening of the left collecting system and superimposed infection is not excluded. He also has circumferential wall thickening of the urinary bladder. Urine did have irregularities, which may be result of having the Friedman itself versus infection. Urine was sent for culture. Patient is already on cefepime via PICC line and we did not add any additional antibiotics at this time. Patient was adamant with the nursing staff that they remove the suprapubic catheter, as it was causing pain and he did not want to continue with it, even if it was placed correctly. Nursing staff advised that the site would likely close up and this is not advised. However, he was adamant on this having this removed and nursing staff subsequently removed it. Patient is agreeable to a Friedman catheter if needed, but does not want a suprapubic catheter again. Patient admitted to medicine for hyponatremia with consult for urology regarding catheter difficulties. Case discussed with ED attending, Dr. Huizar. Undiagnosed new problem with uncertain prognosis? @ -None Drug Therapy requiring intensive monitoring for toxicity (Heparin, Nitro, Insulin, Cardizem)? @ -None Were any procedures done? @ -None Diagnosis/symptom? @ -Hyponatremia, suprapubic catheter misplacement Acute, or Chronic, or Acute on Chronic? @ -Acute Uncomplicated (without systemic symptoms) or Complicated (systemic symptoms)? @ -Uncomplicated Side effects of treatment? @ -None Exacerbation, Progression, or Severe Exacerbation] @ -Not applicable Poses a threat to life or bodily function? @ -Yes, if the hyponatremia gets worse it can become life-threatening. (Catalina Aviles) - Lab Data Lab Results 01/22/24 01/22/24 01/22/24 Range/Units 16:24 16:24 18:29 WBC 12.9 H (3.8-10.6) k/uL RBC 3.41 L (4.30-5.90) m/uL Hgb 11.5 L (13.0-17.5) gm/dL Hct 33.6 L (39.0-53.0) % MCV 98.7 (80.0-100.0) fL MCH 33.6 (25.0-35.0) pg MCHC 34.0 (31.0-37.0) g/dL RDW 13.8 (11.5-15.5) % Plt Count 182 (150-450) k/uL MPV 9.2 Neutrophils % 85 % Lymphocytes % 7 % Monocytes % 7 % Eosinophils % 0 % Basophils % 0 % Neutrophils # 10.9 H (1.3-7.7) k/uL Lymphocytes # 0.9 L (1.0-4.8) k/uL Monocytes # 0.9 (0-1.0) k/uL Eosinophils # 0.0 (0-0.7) k/uL Basophils # 0.0 (0-0.2) k/uL Sodium 124 L (137-145) mmol/L Potassium 4.5 (3.5-5.1) mmol/L Chloride 99 (98-107) mmol/L Carbon Dioxide 25 (22-30) mmol/L Anion Gap 0 mmol/L BUN 9 (9-20) mg/dL Creatinine 0.55 L (0.66-1.25) mg/dL Est GFR (CKD-EPI)AfAm >90 (>60 ml/min/1.73 sqM) Est GFR (CKD-EPI)NonAf >90 (>60 ml/min/1.73 sqM) Glucose 161 H (74-99) mg/dL Calcium 9.1 (8.4-10.2) mg/dL Total Bilirubin 1.0 (0.2-1.3) mg/dL AST 77 H (17-59) U/L ALT 80 H (4-49) U/L Alkaline Phosphatase 159 H (38-126) U/L Total Protein 6.3 (6.3-8.2) g/dL Albumin 3.1 L (3.5-5.0) g/dL Urine Color Colorless Urine Appearance Clear (Clear) Urine pH 6.5 (5.0-8.0) Ur Specific Webster 1.017 (1.001-1.035) Urine Protein 1+ H (Negative) Urine Glucose (UA) Negative (Negative) Urine Ketones Negative (Negative) Urine Blood Moderate H (Negative) Urine Nitrite Negative (Negative) Urine Bilirubin Negative (Negative) Urine Urobilinogen <2.0 (<2.0) mg/dL Ur Leukocyte Esterase Large H (Negative) Urine RBC 25 H (0-5) /hpf Urine WBC 43 H (0-5) /hpf Urine Bacteria Rare H (None) /hpf Urine Mucus Rare H (None) /hpf Disposition <Ten Quigley - Last Filed: 01/22/24 14:51> <Catalina Aviles - Last Filed: 01/22/24 23:08> Clinical Impression: Hyponatremia, Migration of suprapubic catheter Disposition: ADMITTED IP TO THIS HOSP
--- NOTE | 2024-01-22 15:07 | XR ---
EXAMINATION TYPE: XR foot complete RT DATE OF EXAM: 01/22/2024 COMPARISON: NONE HISTORY: Pain TECHNIQUE: Three views are submitted. FINDINGS: Severe osteopenia with hallux valgus deformity first digit DIP joint. There are remote fractures of t he distal third and fourth tarsal with hammertoe second digits. IMPRESSION: 1. Deformity involving the third and fourth distal metatarsals most likely in the basis of remote fra ctures. Correlation. 2. Moderate first MTP joint arthropathy with hallux valgus deformity. 3. Diffuse generalized demineralization
--- NOTE | 2024-01-22 15:08 | XR ---
EXAMINATION TYPE: XR KUB DATE OF EXAM: 01/22/2024 COMPARISON: NONE HISTORY: Pain TECHNIQUE: One view abdominal series FINDINGS: The osseous structures are intact. Postsurgical changes lower lumbar spine. A metallic stimulator dev ice. Bilateral hip arthropathy and diffuse osteopenia. Surgical clips in the gallbladder fossa. Moder ate retained stool burden. Circular radiopaque densities overlying the pelvis are nonspecific correla te clinically. IMPRESSION: 1. Nonspecific abdomen with no obstruction. Correlate for constipation.
[2024-01-22 16:32] LABS: Basophils % (A) 0 %; Eosinophils % (A) 0 %; HCT 33.6 % (39.0-53.0); HGB 11.5 gm/dL (13.0-17.5); Lymphocytes # (A) 0.9 k/uL (1.0-4.8); Lymphocytes % (A) 7 %; MCH 33.6 pg (25.0-35.0); MCV 98.7 fL (80.0-100.0); Mean Platelet Volume 9.2; Monocytes # (A) 0.9 k/uL (0-1.0); Monocytes % (A) 7 %; Neutrophils # (A) 10.9 k/uL (1.3-7.7); Neutrophils % (A) 85 %; Platelet Count 182 k/uL (150-450); RBC 3.41 m/uL (4.30-5.90); RDW 13.8 % (11.5-15.5); WBC 12.9 k/uL (3.8-10.6)
[2024-01-22] MEDS: MORPHINE SULFATE 2 MG/ML SYRINGE IM STA (17:07)
[2024-01-22 17:08] LABS: ALT 80 U/L (4-49); AST 77 U/L (17-59); African American GFR (CKD) >90 (>60 ml/min/1.73 sqM); Albumin 3.1 g/dL (3.5-5.0); Alkaline Phosphatase 159 U/L (38-126); Anion Gap 0 mmol/L; Blood Urea Nitrogen 9 mg/dL (9-20); Calcium 9.1 mg/dL (8.4-10.2); Carbon Dioxide 25 mmol/L (22-30); Chloride 99 mmol/L (98-107); Glucose 161 mg/dL (74-99); Non-African American GFR(CKD) >90 (>60 ml/min/1.73 sqM); Potassium 4.5 mmol/L (3.5-5.1); Sodium 124 mmol/L (137-145); Total Protein 6.3 g/dL (6.3-8.2)
[2024-01-22] MEDS: ONDANSETRON 4 MG/2 ML VIAL IVP STA ×2 (17:12→20:05)
[2024-01-22] MEDS: MORPHINE SULFATE 4 MG/ML SYRINGE IVP STA ×2 (17:13→20:05)
[2024-01-22] MEDS: SODIUM CHLORIDE 0.9% 1,000 ML IV STA (18:59)
--- NOTE | 2024-01-22 19:00 | CT ---
EXAMINATION TYPE: CT abdomen pelvis w con CT DLP: 751.1 mGycm, Automated exposure control for dose reduction was used. DATE OF EXAM: 01/22/2024 6:19 PM COMPARISON: 10/30/2020 CLINICAL INDICATION: Male, 53 years old with history of Abdominal pain and distention; Abdominal pain and distention. TECHNIQUE: Axial CT abdomen pelvis w con;Sagittal and coronal reformats were created on a separate w orkstation. Contrast used:100ml mL of Isovue 300 with IV Contrast, (none if empty) Oral contrast used: without Oral Contrast (none if empty) FINDINGS: LOWER CHEST: Unremarkable ABDOMEN LIVER: Unremarkable GALLBLADDER AND BILE DUCTS: Gallbladder is surgically absent with mild intrahepatic and extra hepatic biliary dilatation likely physiologic and a postcholecystectomy change. No evidence of choledocholit hiasis. PANCREAS: And pancreatic body cystic structure measuring 24 x 20 mm with upstream dilation of the bing n pancreatic duct. Scattered calcifications are seen in the pancreatic head neck region. SPLEEN: Unre markable. ADRENAL GLANDS: Unremarkable. KIDNEYS AND URETERS: The left distal ureter didn't state a Friedman catheter with balloon inflated in th e ureter. There is hyperemia and urothelial thickening of the left collecting system. Gas is also see n within the left collecting system likely due to Friedman catheter placement. No obstructive uropathy o n the right or renal calculus. PELVIS BLADDER: Circumferential wall thickening. REPRODUCTIVE: Suprapubic Friedman catheter enters and is just dilated within the left proximal ureter. ABDOMEN & PELVIS STOMACH AND BOWEL: No evidence of bowel obstruction. Appendix is normal. PERITONEUM/RETROPERITONEUM: No evidence of pneumoperitoneum or free fluid. VASCULATURE: No evidence of aortic aneurysm. MUSCULOSKELETAL: No acute osseous abnormalities, fixation hardware at T12 for L5 and S1 appears intac t. Severe degeneration changes at L3-L4 noted. Neurostimulator the upper spine present. LYMPH NODES: No gross evidence for lymphadenopathy. SOFT TISSUE/ABDOMINAL WALL: Fat-containing ventral hernia the upper abdomen. IMPRESSION: 1. Suprapubic Friedman catheter with tip inflated in the left ureter correlate for proper placement of Friedman catheter. Hyperemia and urothelial thickening of the left collecting system. Superimposed infec tion not excluded. 2. Pancreatic body cystic structure with upstream dilation of the pancreatic duct in the pancreatic tail. Further evaluation recommended to exclude malignancy. Finding may represent sequela prior pancr eatitis on 10/30/2020. 3. Circumferential wall thickening of the urinary bladder correlate for cystitis with emesis. 4. No evidence for bowel obstruction.
[2024-01-22 19:06] LABS: Appearance,Urine Clear (Clear); Bacteria,Urine Rare /hpf; Bilirubin,Urine Negative (Negative); Blood,Urine Moderate (Negative); Color,Urine Colorless; Glucose,Urine (UA) Negative (Negative); Ketones,Urine Negative (Negative); Leukocyte Esterase,Urine Large (Negative); Mucus,Urine Rare /hpf; Nitrite,Urine Negative (Negative); PH, Urine 6.5 (5.0-8.0); Protein,Urine 1+ (Negative); RBC,Urine 25 /hpf (0-5); Specific Gravity,Urine 1.017 (1.001-1.035); Urobilinogen,Urine <2.0 mg/dL (<2.0); WBC,Urine 43 /hpf (0-5)
[2024-01-22] MEDS ORDERED: KETOROLAC 15 MG/ML 1 ML VIAL IVP PRN (21:23)
[2024-01-22] MEDS ORDERED: NALOXONE 0.4 MG/ML 1 ML VIAL IV PRN (21:23)
[2024-01-22] MEDS ORDERED: ACETAMINOPHEN TAB 325 MG TAB PO PRN ×2 (21:23→21:25)
[2024-01-22] MEDS ORDERED: IBUPROFEN 400 MG TAB PO PRN (21:23)
[2024-01-22] MEDS ORDERED: HYDROcodone/APAP 5-325MG 1 EACH TAB PO PRN (21:25)
[2024-01-22 23:52] LABS: Glucose,Whole Blood 122 mg/dL (70-110)
[2024-01-23] MEDS: CEFEPIME 2 GM in SODIUM CHLORIDE 0.9% 100 ML IVPB ONE (00:15)
[2024-01-23] MEDS: MORPHINE SULFATE 4 MG/ML SYRINGE IV PRN (00:16)
[2024-01-23] MEDS: CEFEPIME 2 GM VIAL IVPB SCH (00:40)
[2024-01-23] MEDS: HYDROcodone/APAP 5-325MG 1 EACH TAB PO PRN (02:32)
[2024-01-23 07:34] LABS: Glucose,Whole Blood 113 mg/dL (70-110)
[2024-01-23] MEDS: PANTOPRAZOLE 40 MG/10 ML VIAL IV SCH (08:30)
[2024-01-23] MEDS: LIPASE 20,000/PROTEASE 63,000/AMYLASE 84,000 PO SCH (08:30)
[2024-01-23] MEDS: CEFEPIME 2 GM in SODIUM CHLORIDE 0.9% 100 ML IVPB SCH (08:31)
[2024-01-23] MEDS ORDERED: NON FORMULARY DRUG (Omeprazole 20 MG Capsule.Dr) PO SCH (09:00)
[2024-01-23 12:07] LABS: Glucose,Whole Blood 164 mg/dL (70-110)
[2024-01-23] MEDS: SODIUM CHLORIDE 0.9% 500 ML 500 ML IV ONE (12:55)
[2024-01-23 13:18] LABS: African American GFR (CKD) >90 (>60 ml/min/1.73 sqM); Anion Gap 2 mmol/L; Blood Urea Nitrogen 7 mg/dL (9-20); Calcium 8.8 mg/dL (8.4-10.2); Carbon Dioxide 25 mmol/L (22-30); Chloride 106 mmol/L (98-107); Glucose 139 mg/dL (74-99); Non-African American GFR(CKD) >90 (>60 ml/min/1.73 sqM); Potassium 4.1 mmol/L (3.5-5.1); Sodium 133 mmol/L (137-145)
[2024-01-23] MEDS: SODIUM CHLORIDE 0.9% 1,000 ML IV SCH (15:00)
[2024-01-23 17:00] LABS: Glucose,Whole Blood 173 mg/dL (70-110)
--- NOTE | 2024-01-23 17:08 | P.HPIM ---
History of Present Illness H&P Date: 01/23/24 Patient is a 53-year-old male with a history of chronic back pain with morphine pump, neurogenic bladder, BPH and pancreatic cyst (being evaluated by Dr. Valenzuela) who came in for abdominal pain via EMS from [facility]. Last Sunday patient had suprapubic catheter replaced at [facility]. Since then, he notes that he began to have sensation of fullness in the suprapubic area and leaking of urine through h is penis. On 01/21, patient began to have abdominal pain at the suprapubic area that was sharp 10 out of 10 in intensity at maximum, radiating laterally to lower quadrants. He denies hematuria, dysuria, fevers, chills, or chest pain. Patient is also currently being treated for a right foot infection via PICC line. KUB x-ray shows no abdominal obstruction. CT abdomen shows bladder wall thicken ing and Friedman catheter balloon inflated in left ureter also noted is a pancreatic cyst. Foot x-ray shows remote fractures of the 3 and fourth metatarsals and diffuse demineralization w/ no acute fractures. WBC 12.9 hemoglobin 11.5 platelet 192. Sodium 124 potassium 4.5 BUN 9 creatinine 0.55 glucose 161 calcium 9.1 total protein 6.3 albumin 3.1. Urinalysis shows positive WBC positive RBC negative for nitrites negative for glucose negative for ketones. Patient was afebrile at 98.9 pulse rate at 106 respiratory rate 20 blood pressure 120/75 O2 saturation 99% on room air ED documentation reviewed. Review of systems: Pertinent positives and negatives as discussed in HPI, a complete review of systems was performed and all other systems are negative. Physical examination: Vital signs reviewed General: non toxic, no distress, appears at stated age, normal weight Derm: no unusual rashes/lesions, warm Head: atraumatic, normocephalic, symmetric Eyes: EOMI, no lid lag, anicteric sclera, pupils equal round reactive to light ENT: Nose and ears atraumatic Neck: No cervical lymphadenopathy, trachea midline, supple Mouth: no lip lesion, mucus membranes moist Cardiovascular: S1S2 reg, no murmur Lungs: CTA bilateral, no rhonchi, no rales, no accessory muscle use Abdominal: soft, nondistended, suprapubic area tenderness on light palpation, no guarding Ext: muscle strength 5 out of 5 in all 4 extremities grossly, no gross muscle atrophy, no contractures, positive dorsalis pedis pulse bilateral, no edema, right foot covered with wound dressing seen dry and clean Neuro: CN II-XI grossly intact, no gross focal neuro deficits Psych: Alert, oriented, appropriate affect and mood Assessment/Plan: #. Abdominal pain secondary to s/p urinary catheter insertion r/o infection, obstruction KUB show no obstruction. CT abd shows Friedman cath balloon inflated at left ureter. Urinalysis does not show signs of infection. Patient able to urinate without catheter at this time. -Continue with pain control -Catheter removal for now -Monitor kidney function via BMP #. Right foot infection #. Leukocytosis Patient is being treated with antibiotics via PICC line. Patient is currently stable and asymptomatic. -Continue with cefepime 2 g every 12 IVPB -Will monitor via CBC #. Hyponatremia Sodium 124. Patient is stable and asymptomatic. -500 mL 0.9% NaCl bolus -Check BMP after bolus administration -Transition to NaCl 0.9% IV fluid 100 cc/h DVT prophylaxis: Routine Chronic conditions: chronic back pain, BPH, hypertension, hyperlipidemia, COPD The patient is admitted with an anticipated less than than 2 midnight stay for evaluation of abdominal pain and hyponatremia CODE STATUS: Full Discussed with: Patient Anticipated discharge place: [facility]) Past Medical History Past Medical History: COPD, CVA/TIA, Diabetes Mellitus, GERD/Reflux, GI Bleed, Hyperlipidemia, Hypertension, Neurologic Disorder, Osteoarthritis (OA), Pneumoni a, Prostate Disorder, Rheumatoid Arthritis (RA) Additional Past Medical History / Comment(s): Pt recently admitted to [facility] on 09/15/20 with abdominal pain/paraesophageal hernia or pancreatic pseudocyst-pt states he f/u at Dr. Kellogg's office and was told it is a pancreatic mass. Other hx: ETOH abuse, recurrent pancreatitis, chronic back pain, neuropathy bilateral feet and chronic urinary retention since back surgery, self caths prn, chronic L hydroureteronephrosis d/t reflux, MORPHINE PAIN PUMP L ABDOMIN, L shoulder pain/dislocation, hiatal hernia, PUD, upper and lower GI bleeds, BPH, pt states surgery to remove kidney stones. occasional weakness right side, parkinsons. Slurred speech. CVA about 5-6 years ago per patient. History of Any Multi-Drug Resistant Organisms: None Reported Past Surgical History: Back Surgery, Cholecystectomy, Orthopedic Surgery Additional Past Surgical History / Comment(s): EGDs, colonoscopy, low back titanium plate/rods/cages, spinal stimulator since removed, MORPHINE PAIN PUMP, bronchoscopy, surgery for kidney stones, bilateral knee arthroscopies, R 5th f marsha reattachment. bowel resection. feeding tube. Past Anesthesia/Blood Transfusion Reactions: No Reported Reaction Past Psychological History: Anxiety, Depression Additional Psychological History / Comment(s): PT LIVES AT HOME WITH in a 2 story home that has 3 porch steps/7 steps to 2nd floor.. 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 NO SERVICE.. occasionally uses either cane, walker or w/c also has shower chair and raised toilet seat. He does drive if he needs too. Smoking Status: Current every day smoker Past Alcohol Use History: Heavy Additional Past Alcohol Use History / Comment(s): started smoking at age 14 Smokes 2 packs per day; ETOH ABUSE-patient states he has past hx of heavy drinking but states he has not drank any alcohol in two months 01/22/24. last drink "Used to drink 3-30 packs" of beer daily. Past Drug Use History: None Reported Additional Drug Use History / Comment(s): Pt denies marijuana/street drug use. - Past Family History Father Family Medical History: Diabetes Mellitus Additional Family Medical History / Comment(s): Mother Family Medical History: Dementia, Hyperlipidemia, Hypertension Additional Family Medical History / Comment(s): Mother Medications and Allergies Home Medications Medication Instructions Recorded Confirmed Type HYDROcodone/APAP 5-325MG [[place] 1 tab PO Q6H PRN 11/25/19 01/22/24 History 5-325] Tamsulosin HCl [Flomax] 0.4 mg PO HS@209907/16/23 01/22/24 History 0.9 % Sodium Chloride [Sodium 10 ml IV Q12H 01/22/24 01/22/24 History Chloride Flush] Acetaminophen Tab [Tylenol] 650 mg PO Q6H PRN 01/22/24 01/22/24 History Cefepime [Maxipime] 2 gm IVPB Q12H 01/22/24 01/22/24 History Glucerna Shake 1 can PO HS@209901/22/24 01/22/24 History Lipase/Protease/Amylase [Rebel [place] cap PO TID-W/MEALS 01/22/24 01/22/24 History 24,000 Units Capsule] Omeprazole [PriLOSEC] 20 mg PO BID@899,209901/22/24 01/22/24 History Ondansetron [Zofran] 4 mg PO TID PRN 01/22/24 01/22/24 History Patient Own Pump 0 bag 01/22/24 History amantadine HCL [Amantadine] 100 mg PO BID@00,209901/22/24 01/22/24 History Allergies Allergy/AdvReac Type Severity Reaction Status Date / Time No Known Allergies Allergy Verified 01/22/24 19:52 Physical Exam Vitals: Vital Signs Temp Pulse Pulse Resp BP BP Pulse Ox 01/23/24 07:22 98.5 F 74 16 116/72 100 01/23/24 00:05 98.7 F 96 16 127/81 98 01/22/24 23:22 99.2 F 98 16 107/80 98 01/22/24 20:00 97 16 141/95 99 01/22/24 16:58 98.3 F 94 16 135/80 100 01/22/24 14:00 98.9 F 106 H 20 120/75 99 Intake and Output 01/22/24 01/23/24 01/23/24 22:59 06:59 14:59 Output Total 150 Balance -150 Output: Urine 150 Other: Voiding Method Self-Catheterization Weight 63.503 kg Results CBC & Chem 7: 01/22/24 16:24 01/23/24 12:28 Labs: Abnormal Lab Results - Last 24 Hours (Table) 01/22/24 01/22/24 01/22/24 Range/Units 16:24 16:24 18:29 WBC 12.9 H (3.8-10.6) k/uL RBC 3.41 L (4.30-5.90) m/uL Hgb 11.5 L (13.0-17.5) gm/dL Hct 33.6 L (39.0-53.0) % Neutrophils # 10.9 H (1.3-7.7) k/uL Lymphocytes # 0.9 L (1.0-4.8) k/uL Sodium 124 L (137-145) mmol/L Creatinine 0.55 L (0.66-1.25) mg/dL Glucose 161 H (74-99) mg/dL POC Glucose (mg/dL) (70-110) mg/dL AST 77 H (17-59) U/L ALT 80 H (4-49) U/L Alkaline Phosphatase 159 H (38-126) U/L Albumin 3.1 L (3.5-5.0) g/dL Urine Protein 1+ H (Negative) Urine Blood Moderate H (Negative) Ur Leukocyte Esterase Large H (Negative) Urine RBC 25 H (0-5) /hpf Urine WBC 43 H (0-5) /hpf Urine Bacteria Rare H (None) /hpf Urine Mucus Rare H (None) /hpf 01/22/24 01/23/24 Range/Units 23:51 07:25 WBC (3.8-10.6) k/uL RBC (4.30-5.90) m/uL Hgb (13.0-17.5) gm/dL Hct (39.0-53.0) % Neutrophils # (1.3-7.7) k/uL Lymphocytes # (1.0-4.8) k/uL Sodium (137-145) mmol/L Creatinine (0.66-1.25) mg/dL Glucose (74-99) mg/dL POC Glucose (mg/dL) 122 H 113 H (70-110) mg/dL AST (17-59) U/L ALT (4-49) U/L Alkaline Phosphatase (38-126) U/L Albumin (3.5-5.0) g/dL Urine Protein (Negative) Urine Blood (Negative) Ur Leukocyte Esterase (Negative) Urine RBC (0-5) /hpf Urine WBC (0-5) /hpf Urine Bacteria (None) /hpf Urine Mucus (None) /hpf Thrombosis Risk Factor Assmnt - Choose All That Apply Each Factor Represents 1 point: Abnormal pulmonary function (COPD), Age 41-60 years Thrombosis Risk Factor Assessment Total Risk Factor Score: 2 Thrombosis Risk Factor Assessment Level: Low Risk
--- NOTE | 2024-01-23 17:33 | P.DS ---
Providers Date of admission: 01/22/24 22:27 Attending physician: Socorro Barragan Consults: 01/22/24 21:23 Consult Physician Urgent Consulting Provider: Kyle Barboza Consult Reason/Comments: Suprapubic catheter problems Do you want consulting provider notified?: Yes Primary care physician: [facility] Hospital Course: Hospital Course: Patient is a 53-year-old male with a history of chronic back pain with morphine pump, neurogenic bladder, BPH and pancreatic cyst (being evaluated by Dr. Valenzuela) who came in for abdominal pain via EMS from [facility]. Last Sunday (01/15) patient had suprapubic catheter replaced at [facility]. Since then, he notes that he began to have sensation of fullness in the suprapubic area and leaking of urine through his penis. On 01/21, patient began to have abdominal pain at the suprapubic area that was sharp 10 out of 10 in intensity at maximum, radiating laterally to lower quadrants. He denies hematuria, dysuria, fevers, chills, or chest pain. Patient is also currently being treated for a right foot infection via PICC line. Patient was afebrile and other VS were unremarkable on admission. Imaging done to rule out obstruction and any infections and fractures of the right foot. CT abd showed mullins cathether balloon inserted in left ureter. KUB x-ray shows no abdominal obstruction. Remarkable labs were elevated WBC 12.9 and low Sodium 124. Urinalysis showed positive WBC positive RBC negative for nitrites negative for glucose negative for ketones. Patient was admitted for hyponatremia and urology is consulted for further evaluation of suprapubic catheter. Patient cleared from urology standpoint. Patient's sodium was corrected with 500 mL 0.9% saline bolus to 133. Patient remained stable and asymptomatic during stay and is cleared to be discharged. Final Diagnosis: #. Abdominal pain secondary to s/p urinary catheter insertion #. Hyponatremia, corrected #. Right foot infection, improving Chronic conditions: chronic back pain, BPH, hypertension, hyperlipidemia, COPD Physical examination: Vital signs reviewed General: non toxic, no distress, appears at stated age, normal weight Derm: no unusual rashes/lesions, warm Head: atraumatic, normocephalic, symmetric Eyes: EOMI, no lid lag, anicteric sclera, pupils equal round reactive to light ENT: Nose and ears atraumatic Neck: No cervical lymphadenopathy, trachea midline, supple Mouth: no lip lesion, mucus membranes moist Cardiovascular: S1S2 reg, no murmur, Lungs: CTA bilateral, no rhonchi, no rales, no accessory muscle use Abdominal: soft, nontender to palpation, no guarding Ext: muscle strength 5 out of 5 in all 4 extremities grossly, no gross muscle atrophy, no contractures, positive dorsalis pedis pulse bilateral, no edema, right foot covered with wound dressing seen dry and clean Neuro: CN II-XI grossly intact, no gross focal neuro deficits Psych: Alert, oriented, appropriate affect and mood Patient Condition at Discharge: Stable Plan - Discharge Summary Discharge Rx Participant: No New Discharge Prescriptions: Continue HYDROcodone/APAP 5-325MG [[place] 5-325] 1 tab PO Q6H PRN PRN Reason: Pain Tamsulosin HCl [Flomax] 0.4 mg PO HS@2100 Omeprazole [PriLOSEC] 20 mg PO BID@0900,2100 amantadine HCL [Amantadine] 100 mg PO BID@0900,2100 Cefepime [Maxipime] 2 gm IVPB Q12H Glucerna Shake 1 can PO HS@2100 Patient Own Pump 0 bag Ondansetron [Zofran] 4 mg PO TID PRN PRN Reason: Nausea And Vomiting Acetaminophen Tab [Tylenol] 650 mg PO Q6H PRN PRN Reason: Pain Lipase/Protease/Amylase [Rebel [place] 24,000 Unit Capsule] 1 cap PO TID-W/MEALS 0.9 % Sodium Chloride [Sodium Chloride Flush] 10 ml IV Q12H Discharge Medication List HYDROcodone/APAP 5-325MG [[place] 5-325] 1 tab PO Q6H PRN 11/25/19 [History] Tamsulosin HCl [Flomax] 0.4 mg PO HS@2100 07/16/23 [History] 0.9 % Sodium Chloride [Sodium Chloride Flush] 10 ml IV Q12H 01/22/24 [History] Acetaminophen Tab [Tylenol] 650 mg PO Q6H PRN 01/22/24 [History] Cefepime [Maxipime] 2 gm IVPB Q12H 01/22/24 [History] Glucerna Shake 1 can PO HS@2100 01/22/24 [History] Lipase/Protease/Amylase [Rebel [place] 24,000 Unit Capsule] 1 cap PO TID-W/MEALS 01/22/24 [History] Omeprazole [PriLOSEC] 20 mg PO BID@899,209901/22/24 [History] Ondansetron [Zofran] 4 mg PO TID PRN 01/22/24 [History] Patient Own Pump 0 bag 01/22/24 [History] amantadine HCL [Amantadine] 100 mg PO BID@899,209901/22/24 [History] Follow up Appointment(s)/Referral(s): Kerri Quinones MD [Primary Care Provider] - 1-2 days Discharge Disposition: TRANSFER TO SNF/ECF
--- NOTE | 2024-01-23 19:33 | P.GSCN ---
History of Present Illness Consult date: 01/23/24 Reason for Consult: This is a 53-year-old male known patient to Dr. Velazquez with history of neurogenic bladder, he underwent a suprapubic tube placement in June 2023. Of note cystoscopy at that time showed a fairly dilated left ureteral orifice. Suprapubic tube and placement was uncomplicated. He indicated he had his suprapubic tube exchanged by the [facility] and since that exchange has been not having any urine output, and is having leakage per penis. Underwent a CT abdomen and pelvis that showed evidence that the suprapubic tube is into the left ureter with the balloon at the level of the mid ureter with hydronephrosis. Of note the hydronephrosis that is chronic in nature. The patient was unhappy with the suprapubic tube and would like to return to intermittent voiding with intermittent catheterization as needed. He denies any flank pain, gross hematuria, he is able to void per urethra. Review of Systems - Constitutional Denies fever, Denies weight loss - EENT Ears, nose, mouth and throat: Denies dysphagia - Cardiovascular Denies chest pain, Denies shortness of breath - Respiratory Denies cough, Denies 7 - Genitourinary Denies dysuria, Denies hematuria - Neurological Denies headaches, Denies syncope Past Medical History Past Medical History: COPD, CVA/TIA, Diabetes Mellitus, GERD/Reflux, GI Bleed, Hyperlipidemia, Hypertension, Neurologic Disorder, Osteoarthritis (OA), Pneumonia, Prostate Disorder, Rheumatoid Arthritis (RA) Additional Past Medical History / Comment(s): Pt recently admitted to [facility] on 09/15/20 with abdominal pain/paraesophageal hernia or pancreatic pseudocyst-pt states he f/u at Dr. Kellogg's office and was told it is a pancreatic mass. Other hx: ETOH abuse, recurrent pancreatitis, chronic back pain, neuropathy bilateral feet and chronic urinary retention since back surgery, self caths prn, chronic L hydroureteronephrosis d/t reflux, MORPHINE PAIN PUMP L ABDOMIN, L shoulder pain/dislocation, hiatal hernia, PUD, upper and lower GI bleeds, BPH, p t states surgery to remove kidney stones. occasional weakness right side, parkinsons. Slurred speech. CVA about 5-6 years ago per patient. History of Any Multi-Drug Resistant Organisms: None Reported Past Surgical History: Back Surgery, Cholecystectomy, Orthopedic Surgery Additional Past Surgical History / Comment(s): EGDs, colonoscopy, low back titanium plate/rods/cages, spinal stimulator since removed, MORPHINE PAIN PUMP, bronchoscopy, surgery for kidney stones, bilateral knee arthroscopies, R 5th finger reattachment. bowel resection. feeding tube. Past Anesthesia/Blood Transfusion Reactions: No Reported Reaction Past Psychological History: Anxiety, Depression Additional Psychological History / Comment(s): PT LIVES AT HOME WITH in a 2 story home that has 3 porch steps/7 steps to 2nd floor.. 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 NO SERVICE.. occasionally uses either cane, walker or w/c also has shower chair and raised toilet seat. He does drive if he needs too. Smoking Status: Current every day smoker Past Alcohol Use History: Heavy Additional Past Alcohol Use History / Comment(s): started smoking at age 14 Smokes 2 packs per day; ETOH ABUSE-patient states he has past hx of heavy drinking but states he has not drank any alcohol in two months 01/22/24. last drink "Used to drink 3-30 packs" of beer daily. Past Drug Use History: None Reported Additional Drug Use History / Comment(s): Pt denies marijuana/street drug use. - Past Family History Father Family Medical History: Diabetes Mellitus Additional Family Medical History / Comment(s): Mother Family Medical History: Dementia, Hyperlipidemia, Hypertension Additional Family Medical History / Comment(s): Mother Medications and Allergies Home Medications Medication Instructions Recorded Confirmed Type HYDROcodone/APAP 5-325MG [[place] 1 tab PO Q6H PRN 11/25/19 01/22/24 History 5-325] Tamsulosin HCl [Flomax] 0.4 mg PO HS@209907/16/23 01/22/24 History 0.9 % Sodium Chloride [Sodium 10 ml IV Q12H 01/22/24 01/22/24 History Chloride Flush] Acetaminophen Tab [Tylenol] 650 mg PO Q6H PRN 01/22/24 01/22/24 History Cefepime [Maxipime] 2 gm IVPB Q12H 01/22/24 01/22/24 History Glucerna Shake 1 can PO HS@209901/22/24 01/22/24 History Lipase/Protease/Amylase [[place] Dr 1 cap PO TID-W/MEALS 01/22/24 01/22/24 History 24,000 Unit Capsule] Omeprazole [PriLOSEC] 20 mg PO BID@899,209901/22/24 01/22/24 History Ondansetron [Zofran] 4 mg PO TID PRN 01/22/24 01/22/24 History Patient Own Pump 0 bag 01/22/24 History amantadine HCL [Amantadine] 100 mg PO BID@899,209901/22/24 01/22/24 History Allergies Allergy/AdvReac Type Severity Reaction Status Date / Time No Known Allergies Allergy Verified 01/22/24 19:52 Surgical - Exam Vital Signs Temp Pulse Resp BP Pulse Ox 98.9 F 106 H 20 120/75 99 01/22/24 14:00 01/22/24 14:00 01/22/24 14:00 01/22/24 14:00 01/22/24 14:00 - General no distress, no pain - Eyes normal ocular movement, no pale - ENT normal nares, normal mucosa - Abdomen Abdomen: soft, non tender, no distended - Psychiatric oriented to time, oriented to person, oriented to place Results - Labs 01/22/24 16:24 01/23/24 12:28 Abnormal Lab Results - Last 24 Hours (Table) 01/22/24 01/23/24 01/23/24 Range/Units 23:51 07:25 12:06 Sodium (137-145) mmol/L BUN (9-20) mg/dL Creatinine (0.66-1.25) mg/dL Glucose (74-99) mg/dL POC Glucose (mg/dL) 122 H 113 H 164 H (70-110) mg/dL 01/23/24 01/23/24 Range/Units 12:28 16:59 Sodium 133 L (137-145) mmol/L BUN 7 L (9-20) mg/dL Creatinine 0.53 L (0.66-1.25) mg/dL Glucose 139 H (74-99) mg/dL POC Glucose (mg/dL) 173 H (70-110) mg/dL Microbiology - Last 24 Hours (Table) 01/22/24 18:29 Urine Culture - Final Urine,Voided Diabetes panel 01/23/24 Range/Units 12:28 Sodium 133 L (137-145) mmol/L Potassium 4.1 (3.5-5.1) mmol/L Chloride 106 (98-107) mmol/L Carbon Dioxide 25 (22-30) mmol/L BUN 7 L (9-20) mg/dL Creatinine 0.53 L (0.66-1.25) mg/dL Glucose 139 H (74-99) mg/dL Calcium 8.8 (8.4-10.2) mg/dL Calcium panel 01/23/24 Range/Units 12:28 Calcium 8.8 (8.4-10.2) mg/dL Pituitary panel 01/23/24 Range/Units 12:28 Sodium 133 L (137-145) mmol/L Potassium 4.1 (3.5-5.1) mmol/L Chloride 106 (98-107) mmol/L Carbon Dioxide 25 (22-30) mmol/L BUN 7 L (9-20) mg/dL Creatinine 0.53 L (0.66-1.25) mg/dL Glucose 139 H (74-99) mg/dL Calcium 8.8 (8.4-10.2) mg/dL Adrenal panel 01/23/24 Range/Units 12:28 Sodium 133 L (137-145) mmol/L Potassium 4.1 (3.5-5.1) mmol/L Chloride 106 (98-107) mmol/L Carbon Dioxide 25 (22-30) mmol/L BUN 7 L (9-20) mg/dL Creatinine 0.53 L (0.66-1.25) mg/dL Glucose 139 H (74-99) mg/dL Calcium 8.8 (8.4-10.2) mg/dL Assessment and Plan Assessment: 53-year-old male with history of neurogenic bladder being managed with a suprapubic tube, [facility] and appears to be in the left ureter, subsequently the suprapubic tube was removed by the emergency room department, patient does not want to continue with the suprapubic tube and he wants to continue with intermittent voiding and catheterization as needed. From urology standpoint recommend obtaining a bladder scan, if greater than 300 mL then he should go undergo intermittent catheterization, given his unsatisfactory results with a suprapubic tube no reason to insert the tube at this time. ok for discharge from urology standpoint Follow-up with Dr. eVlazquez an outpatient
[2024-01-23 20:21] LABS: Glucose,Whole Blood 107 mg/dL (70-110)
[2024-01-23] MEDS ORDERED: NON FORMULARY DRUG (Glucerna Shake 1 CAN Ml) PO SCH (21:00)
[2024-01-23] MEDS: TAMSULOSIN 0.4 MG CAP.ER.24H PO SCH (21:46)
[2024-01-23] MEDS: ONDANSETRON 4 MG TAB PO PRN (21:51)
[2024-01-23] MEDS: ALTEPLASE 2 MG VIAL (CATHFLO) IV STA (23:20)
[2024-01-24 07:45] LABS: Glucose,Whole Blood 119 mg/dL (70-110)
[2024-01-24] MEDS: ONDANSETRON 4 MG/2 ML VIAL IVP PRN (08:35)
[2024-01-24 08:46] VITALS: TEMP 97.6
--- NOTE | 2024-01-24 12:04 | P.PN ---
Subjective Progress Note Date: 01/24/24 Patient is able to void spontaneously, PVR is less than 10 mL, having minimal leakage at the site of the SP tube Objective - Vital Signs Vital signs: Vital Signs Temp 97.6 F 01/24/24 07:40 Pulse 72 01/24/24 07:40 Resp 17 01/24/24 07:40 BP 146/82 01/24/24 07:40 Pulse Ox 100 01/24/24 07:40 FiO2 Intake & Output 01/23/24 01/24/24 01/24/24 18:59 06:59 18:59 Intake Total 1200 2340 Output Total 1100 825 Balance 1200 1240 -825 Intake: Intake, IV Titration 1200 2100 Amount Cefepime 2 gm In Sodium 200 Chloride 0.9% 100 ml @ 200 mls/hr IVPB Q12HR JANE Rx#:[id number] Sodium Chloride 0.9% 1, 1200 1900 000 ml @ 100 mls/hr IV . Q10H JANE Rx#:[id number] Oral 240 Output: Urine 1100 825 Other: Voiding Method Self-Catheterization # Voids 1 # Bowel Movements 1 - Constitutional General appearance: Present: no acute distress - Gastrointestinal General gastrointestinal: Present: soft. Absent: distended, tenderness - Labs CBC & Chem 7: 01/22/24 16:24 01/23/24 12:28 Labs: Abnormal Lab Results - Last 24 Hours (Table) 01/23/24 01/23/24 01/23/24 Range/Units 12:06 12:28 16:59 Sodium 133 L (137-145) mmol/L BUN 7 L (9-20) mg/dL Creatinine 0.53 L (0.66-1.25) mg/dL Glucose 139 H (74-99) mg/dL POC Glucose (mg/dL) 164 H 173 H (70-110) mg/dL 01/24/24 Range/Units 07:44 Sodium (137-145) mmol/L BUN (9-20) mg/dL Creatinine (0.66-1.25) mg/dL Glucose (74-99) mg/dL POC Glucose (mg/dL) 119 H (70-110) mg/dL Microbiology - Last 24 Hours (Table) 01/22/24 18:29 Urine Culture - Final Urine,Voided Assessment and Plan Assessment: 53-year-old male with history of neurogenic bladder being managed with a suprapubic tube, tube was exchanged at the [facility] and appears to be in the left ureter, subsequently the suprapubic tube was removed by the emergency room department, patient does not want to continue with the suprapubic tube and he wants to continue with intermittent voiding and catheterization as needed. His PVRs have been fairly low, at this point he is okay for discharge from urology standpoint, no need for SP tube or intermittent catheterization at this time
[2024-01-24 12:24] LABS: Glucose,Whole Blood 189 mg/dL (70-110)
[2024-01-24 14:42] VITALS: BP 154/89; PULSE 80; RESP 16
[2024-01-25] MEDS ORDERED: PANTOPRAZOLE 40 MG TABLET PO SCH (07:30)
== END 2024-01-24 16:26 | DRG 699 ==
LOC: EC 13:48 → 5NMEDONC 22:27
PROVIDERS: ADMIT Hospitalist; ATTEND Hospitalist
DX: T83.84XA Pain due to genitourinary prosthetic devices, implants and grafts, initial encounter (principal); E87.1 Hypo-osmolality and hyponatremia; K86.1 Other chronic pancreatitis; K86.2 Cyst of pancreas; N13.30 Unspecified hydronephrosis; L08.9 Local infection of the skin and subcutaneous tissue, unspecified; E11.40 Type 2 diabetes mellitus with diabetic neuropathy, unspecified; Z96.89 Presence of other specified functional implants; E78.5 Hyperlipidemia, unspecified; F17.200 Nicotine dependence, unspecified, uncomplicated; F32.A Depression, unspecified; F10.11 Alcohol abuse, in remission; J44.9 Chronic obstructive pulmonary disease, unspecified; M06.9 Rheumatoid arthritis, unspecified; F41.9 Anxiety disorder, unspecified; G20.A1 Parkinson's disease without dyskinesia, without mention of fluctuations; G89.29 Other chronic pain; I10 Essential (primary) hypertension; M19.90 Unspecified osteoarthritis, unspecified site; R47.81 Slurred speech; K44.9 Diaphragmatic hernia without obstruction or gangrene; M54.9 Dorsalgia, unspecified; N31.9 Neuromuscular dysfunction of bladder, unspecified; N40.1 Benign prostatic hyperplasia with lower urinary tract symptoms; R33.8 Other retention of urine; Z86.73 Personal history of transient ischemic attack (TIA), and cerebral infarction without residual deficits; Z87.11 Personal history of peptic ulcer disease; Z87.442 Personal history of urinary calculi; K21.9 Gastro-esophageal reflux disease without esophagitis; Z90.49 Acquired absence of other specified parts of digestive tract; Z87.01 Personal history of pneumonia (recurrent); Z79.891 Long term (current) use of opiate analgesic; Z28.310 Unvaccinated for COVID-19; Z79.899 Other long term (current) drug therapy
CPT/HCPCS: 36415; 51798; 74018; 74177; 80048; 80053; 81001; 85025; 87086; 96361; 96374; 96375; 99285

== ENCOUNTER 2024-01-25 05:25 | Emergency (ER) | payer MEDICARE ==
[2024-01-25 05:31] VITALS: TEMP 98.5
--- NOTE | 2024-01-25 05:35 | ED ---
Chest Pain HPI <Jonathan Huizar - Last Filed: 01/25/24 11:44> - General Source: patient, RN notes reviewed, old records reviewed Mode of arrival: wheelchair Limitations: no limitations - History of Present Illness MD Complaint: chest pain -: hour(s) Onset: during rest, during exertion Pain Location: substernal Severity: moderate Severity scale (1-10): 6 Consistency: constant Improves With: nothing <Grayson Cervantes - Last Filed: 01/27/24 23:03> - General Chief Complaint: Chest Pain Stated Complaint: Difficulty Breathing, Upper Back Pain Time Seen by Provider: 01/25/24 05:34 - History of Present Illness Initial Comments: This is a 53-year-old male well-known to this emergency department today. Patient presents today for evaluation of chest pain and significant anterior chest pain with recent hospital admission for removal of suprapubic catheter, patient is having chest pain today, denies significant alcohol intoxication (Grayson Cervantes) - Related Data Home Medications Medication Instructions Recorded Confirmed Tamsulosin HCl [Flomax] 0.4 mg PO HS@209907/16/23 01/22/24 0.9 % Sodium Chloride [Sodium 10 ml IV Q12H 01/22/24 01/22/24 Chloride Flush] Acetaminophen Tab [Tylenol] 650 mg PO Q6H PRN 01/22/24 01/22/24 Cefepime [Maxipime] 2 gm IVPB Q12H 01/22/24 01/22/24 Glucerna Shake 1 can PO HS@209901/22/24 01/22/24 Lipase/Protease/Amylase [Rebel Belcher 1 cap PO TID-W/MEALS 01/22/24 01/22/24 24,000 Unit Capsule] Omeprazole [PriLOSEC] 20 mg PO BID@00,209901/22/24 01/22/24 Ondansetron [Zofran] 4 mg PO TID PRN 01/22/24 01/22/24 Patient Own Pump 0 bag 01/22/24 amantadine HCL [Amantadine] 100 mg PO BID@0900,209901/22/24 01/22/24 Previous Rx's Medication Instructions Recorded HYDROcodone/APAP 5-325MG [Poth 1 tab PO Q6H PRN 5 Days tab 01/24/24 5-325] Allergies Allergy/AdvReac Type Severity Reaction Status Date / Time No Known Allergies Allergy Verified 01/22/24 19:52 Review of Systems ROS Other: All systems not noted in ROS Statement are negative. <Jonathan Huizar - Last Filed: 01/25/24 11:44> ROS Other: All systems not noted in ROS Statement are negative. <Grayson Cervantes - Last Filed: 01/27/24 23:03> ROS Statement: Those systems with pertinent positive or pertinent negative responses have been documented in the HPI. EKG Findings - EKG Comments: EKG Findings:: EKG is sinus 89 WV 141 QRS 89 QTc 401 - EKG Results: EKG: interpreted by ERMD <Grayson Cervantes - Last Filed: 01/27/24 23:03> Past Medical History Past Medical History: COPD, CVA/TIA, Diabetes Mellitus, GERD/Reflux, GI Bleed, Hyperlipidemia, Hypertension, Neurologic Disorder, Osteoarthritis (OA), Pneumonia, Prostate Disorder, Rheumatoid Arthritis (RA) Additional Past Medical History / Comment(s): Pt recently admitted to [facility] on 09/15/20 with abdominal pain/paraesophageal hernia or pancreatic pseudocyst-pt states he f/u at Dr. Kellogg's office and was told it is a pancreatic mass. Other hx: ETOH abuse, recurrent pancreatitis, chronic back pain, neuropathy bilateral feet and chronic urinary retention since back surgery, self caths prn, chronic L hydroureteronephrosis d/t reflux, MORPHINE PAIN PUMP L ABDOMIN, L shoulder pain/dislocation, hiatal hernia, PUD, upper and lower GI bleeds, BPH, pt states surgery to remove kidney stones. occasional weakness right side, parkinsons. Slurred speech. CVA about 5-6 years ago per patient. History of Any Multi-Drug Resistant Organisms: None Reported Past Surgical History: Back Surgery, Cholecystectomy, Orthopedic Surgery Additional Past Surgical History / Comment(s): EGDs, colonoscopy, low back titanium plate/rods/cages, spinal stimulator since removed, MORPHINE PAIN PUMP, bronchoscopy, surgery for kidney stones, bilateral knee arthroscopies, R 5th finger reattachment. bowel resection. feeding tube. Past Anesthesia/Blood Transfusion Reactions: No Reported Reaction Past Psychological History: Anxiety, Depression Smoking Status: Current every day smoker Past Alcohol Use History: Heavy Past Drug Use History: None Reported - Past Family History Father Family Medical History: Diabetes Mellitus Additional Family Medical History / Comment(s): Mother Family Medical History: Dementia, Hyperlipidemia, Hypertension Additional Family Medical History / Comment(s): Mother <Grayson Cervantes Last Filed: 01/27/24 23:03> General Exam Limitations: no limitations General appearance: alert, in no apparent distress, anxious Head exam: Present: atraumatic, normocephalic, normal inspection Eye exam: Present: normal appearance, PERRL, EOMI. Absent: scleral icterus, conjunctival injection, periorbital swelling ENT exam: Present: normal exam, mucous membranes moist Neck exam: Present: normal inspection. Absent: tenderness, meningismus, lymphadenopathy Respiratory exam: Present: normal lung sounds bilaterally. Absent: respiratory distress, wheezes, rales, rhonchi, stridor Cardiovascular Exam: Present: regular rate, normal rhythm, normal heart sounds. Absent: systolic murmur, diastolic murmur, rubs, gallop, clicks GI/Abdominal exam: Present: soft, normal bowel sounds. Absent: distended, tenderness, guarding, rebound, rigid Extremities exam: Present: normal inspection, full ROM, normal capillary refill. Absent: tenderness, pedal edema, joint swelling, calf tenderness Back exam: Present: normal inspection Neurological exam: Present: alert, oriented X3, CN II-XII intact Psychiatric exam: Present: normal affect, normal mood Skin exam: Present: warm, dry, intact, normal color. Absent: rash <Grayson Cervantes - Last Filed: 01/27/24 23:03> Course <Grayson Cervantes Filed: 01/27/24 23:03> Vital Signs 01/25/24 01/25/24 01/25/24 05:26 07:27 08:00 Temperature 98.5 F Pulse Rate 105 H 96 98 Respiratory 22 18 18 Rate Blood Pressure 152/91 141/87 149/94 O2 Sat by Pulse 100 100 100 Oximetry 01/25/24 01/25/24 09:45 12:06 Temperature Pulse Rate 75 65 Respiratory 16 18 Rate Blood Pressure 140/87 132/88 O2 Sat by Pulse 97 97 Oximetry - Reevaluation(s) Reevaluation #1: 01/25/24 06:40 Medical records reviewed (Grayson Cervantes) Reevaluation #2: Patient symptoms improved (Grayson Cervantes) Reevaluation #3: Patient informed of results and questions answered (Grayson Cervantes) Reevaluation #4: Was pt. sent in by a medical professional or institution (KULWINDER Padilla, [employer], urgent care, hospital, or alf...) When possible be specific @ -no Did you speak to anyone other than the patient for history (EMS, parent, family, police, friend...)? What history was obtained from this source @ -no Did you review nursing and triage notes (agree or disagree)? Why? @ -agree Are old charts reviewed (outside hosp., previous admission, EMS record, old EKG, old radiological studies, urgent care reports/EKG's, alf records)? Report findings @ -yes Differential Diagnosis (chest pain, altered mental status, abdominal pain women, abdominal pain men, vaginal bleeding, weakness, fever, dyspnea, syncope, headache, dizziness, GI bleed, back pain, seizure, CVA, palpatations, mental health, musculoskeletal)? @ -prior EKG interpreted by me (3pts min.). @ -yes X-rays interpreted by me (1pt min.). @ -yes negative for acute disease CT interpreted by me (1pt min.). @ -Yes negative for acute disease U/S interpreted by me (1pt. min.). @ -no What testing was considered but not performed or refused? (CT, X-rays, U/S, labs)? Why? @ -none What meds were considered but not given or refused? Why? @ -none Did you discuss the management of the patient with other professionals (professionals i.e. KULWINDER Padilla, [employer], lab, RT, psych nurse, social service liaison, primary care nurse practitioner, teacher, security police officer, manager of case management)? Give summary @ -no Was smoking cessation discussed for >3mins.? @ -no Was critical care preformed (if so, how long)? @ -no Were there social determinants of health that impacted care today? How? (Homelessness, low income, unemployed, alcoholism, drug addiction, transportation, low edu. Level, literacy, decrease access to med. care, detention, rehab)? @ -none Was there de-escalation of care discussed even if they declined (Discuss DNR or withdrawal of care, Hospice)? DNR status @ -no What co-morbidities impacted this encounter? (DM, HTN, Smoking, COPD, CAD, Ca ncer, CVA, ARF, Chemo, Hep., AIDS, mental health diagnosis, sleep apnea, morbid obesity)? @ -none Was patient admitted / discharged? Hospital course, mention meds given and route, prescriptions, significant lab abnormalities, going to OR and other pertinent info. @ - 53 male with recent hospital discharge coming in for chest pain, patient having persistent chest pain here in the ER no acute findings patient can be discharged home Discharge Undiagnosed new problem with uncertain prognosis? @ -no Drug Therapy requiring intensive monitoring for toxicity (Heparin, Nitro, Insulin, Cardizem)? @ -no Were any procedures done? @ -no Diagnosis/symptom? @ -Chest pain Acute, or Chronic, or Acute on Chronic? @ -Acute Uncomplicated (without systemic symptoms) or Complicated (systemic symptoms)? @ -Complicated Side effects of treatment? @ -no Exacerbation, Progression, or Severe Exacerbation? @ -exacerbation Poses a threat to life or bodily function? How? (Chest pain, [place], [place], pneumonia, PE, COPD, DKA, ARF, appy, cholecystitis, CVA, Diverticulitis, Homicidal, Suicidal, threat to staff... and all critical care pts) @ -yes chest pain (Grayson Cervantes) Reevaluation #5: Differential Chest Pain: Stable Angina, Unstable Angina, STEMI, NSTEMI Aortic Dissection, Pneumothorax, Musculoskeletal, Esophageal Spasm GERD, Cholecystitis, Pancreatitis, Zoster, this is not meant to be an all-inclusive list. (Grayson Cervantes) Chest Pain [facility] <Jonathan Huizar - Last Filed: 01/25/24 11:44> <Grayson Cervantes - Last Filed: 01/27/24 23:03> - [facility] Patient care signed out to me by previous shift physician, Dr. Surya Kowalski. Briefly patient is a 53-year-old male well-known to the emergency department for alcoholism. States that he is here today for chest pain. Patient reevaluated bedside 11:45 AM found to be in stable condition. Patient denies any chest pain at the bedside. Labs are unremarkable including 2 negative troponins. Patient has no shortness of breath. He did had an elevated D-dimer of 0.85. No PEs noted on CT angiography. Patient will be discharged advised follow-up with primary care doctor. (Jonathan Huizar) 53 male with recent hospital discharge coming in for chest pain, patient having persistent chest pain here in the ER no acute findings patient can be discharged home (Grayson Cervantes) Disposition <Jonathan Huizar - Last Filed: 01/25/24 11:44> Is patient prescribed a controlled substance at d/c from ED?: No <Grayson Cervantes - Last Filed: 01/27/24 23:03> Clinical Impression: History of alcohol use, Chest pain, Abdominal pain, Nausea & vomiting, Dyspnea Disposition: HOME SELF-CARE Condition: Fair Instructions (If sedation given, give patient instructions): Chest Pain (ED) Referrals: Kerri Quinones MD [Primary Care Provider] - 1-2 days
[2024-01-25] MEDS: diphenhydrAMINE 50 MG/ML 1 ML VIAL IVP STA (07:50)
[2024-01-25] MEDS: PROCHLORPERAZINE INJ 10 MG/2 ML VIAL IVP STA (07:51)
[2024-01-25] MEDS: HYDROmorphone 1 MG/ML 1 ML SYRINGE IVP STA (07:52)
[2024-01-25] MEDS: SODIUM CHLORIDE 0.9% 1,000 ML IV STA (07:55)
--- NOTE | 2024-01-25 08:16 | XR ---
EXAMINATION TYPE: XR chest 2V DATE OF EXAM: 01/25/2024 COMPARISON: 11/01/2020 HISTORY: 53-year-old male with chest pain TECHNIQUE: PA and lateral views FINDINGS: Spinal stimulator is centered along the lower thoracic spinal canal. Heart normal size. Minimal ather osclerotic arch calcifications. Left PICC tip lower SVC. No consolidation or pleural effusion. IMPRESSION: Left PICC tip at the lower SVC. Spinal stimulator array. No acute cardiopulmonary process.
[2024-01-25 08:30] LABS: Basophils % (A) 0 %; Eosinophils # (A) 0.1 k/uL (0-0.7); Eosinophils % (A) 1 %; HCT 31.3 % (39.0-53.0); HGB 10.6 gm/dL (13.0-17.5); Lymphocytes # (A) 0.9 k/uL (1.0-4.8); Lymphocytes % (A) 12 %; MCH 33.1 pg (25.0-35.0); MCHC 33.8 g/dL (31.0-37.0); MCV 97.8 fL (80.0-100.0); Mean Platelet Volume 9.1; Monocytes # (A) 0.4 k/uL (0-1.0); Monocytes % (A) 6 %; Neutrophils # (A) 5.9 k/uL (1.3-7.7); Neutrophils % (A) 79 %; Platelet Count 208 k/uL (150-450); RDW 13.3 % (11.5-15.5); WBC 7.5 k/uL (3.8-10.6)
[2024-01-25 08:43] LABS: ALT 56 U/L (4-49); African American GFR (CKD) >90 (>60 ml/min/1.73 sqM); Anion Gap 4 mmol/L; Blood Urea Nitrogen 6 mg/dL (9-20); Calcium 8.7 mg/dL (8.4-10.2); Carbon Dioxide 23 mmol/L (22-30); Chloride 104 mmol/L (98-107); Glucose 118 mg/dL (74-99); Lipase 40 U/L (23-300); Non-African American GFR(CKD) >90 (>60 ml/min/1.73 sqM); Sodium 131 mmol/L (137-145); Total Bilirubin 0.7 mg/dL (0.2-1.3)
[2024-01-25 08:45] LABS: AST 39 U/L (17-59); Albumin 2.9 g/dL (3.5-5.0); Potassium 4.8 mmol/L (3.5-5.1); Total Protein 6.1 g/dL (6.3-8.2)
[2024-01-25 08:46] LABS: Alkaline Phosphatase 136 U/L (38-126); Magnesium 1.4 mg/dL (1.6-2.3)
[2024-01-25 08:48] LABS: INR 0.9 (<1.2); Partial Thromboplastin Time 25.4 sec (22.0-30.0); Prothrombin Time 10.1 sec (10.0-12.5)
[2024-01-25 08:52] LABS: NT-Pro-B-Type Natriuretic Pept 1900 pg/mL
[2024-01-25] MEDS: LORazepam 2 MG/ML INJ IV STA (09:12)
--- NOTE | 2024-01-25 09:56 | CT ---
EXAMINATION TYPE: CT angio chest DATE OF EXAM: 01/25/2024 COMPARISON: 04/01/2020 HISTORY: 53-year-old male shortness of breath, positive d-dimer, rule out PE TECHNIQUE: Contiguous axial scanning of the chest after the administration of 50 mL of Isovue 370. C oronal/sagittal MIP reconstructions performed. CT DLP: 255.4mGycm. Automatic exposure control utilized for a dose reduction. FINDINGS: Heart is normal size without pericardial effusion. No flattening of the interventricular septum reflu x of contrast into hepatic veins. Aorta normal caliber with conventional branching anatomy. Some prominent anterior mediastinal lymph nodes measuring up tor 7 mm remain unchanged or measure sma ller. Right hilar lymph node measures borderline at 1.1 cm but remains unchanged. Otherwise, no thora cic lymphadenopathy by CT size criteria. There is borderline suboptimal opacification of the pulmonary arterial system. No definite pulmonary embolus. Minimal emphysematous. Scattered [id number] diffuse bronchial wall thickening without consolida tion or pleural effusion. Tiny hiatal hernia. Some mild periesophageal stranding/fluid noted here. Visualized upper abdomen shows a cystic lesion of the pancreatic head/body junction measuring and ronda e calcifications in the pancreatic head region. Cholecystectomy clips. Ongoing moderate stenosis. Foc i of air within the left renal collecting system. A trace there is splenic ascites. Bones: Spinal stimulator is lower thoracic spinal canal. Mild degenerative disc disease mid to lower thoracic spine. IMPRESSION: 1. Borderline suboptimal contrast bolus. No definite pulmonary embolus. 2. Ebeo-nh-qemtkinj diffuse bronchial wall thickening could be due to bronchitis, chronic asthma, or mild pulmonary vascular congestion. Clinically correlate. 3. Visualized upper abdomen shows trace perisplenic ascites. Ongoing 2.3 cm cyst of the pancreatic yamilex dy/neck junction which could be sequela of pancreatitis. There is also upstream dilatation of the bing n pancreatic duct up to 6 mm. 4. Continued moderate left hydronephrosis. See report of CT abdomen 01/22/2024. 5. Tiny hiatal hernia. Either some mild edema tracking up into the hiatal hernia versus mild local in flammation. Correlate for any symptoms that would suggest esophagitis.
[2024-01-25 12:07] VITALS: BP 132/88; PULSE 65; RESP 18
== END 2024-01-25 12:07 | disposition home or self-care (01) ==
LOC: EC 05:25
CPT/HCPCS: 36415; 71046; 71275; 80053; 83690; 83735; 83880; 84484; 85025; 85379; 85610; 85730; 93005; 96361; 96374; 96375; 99285

== ENCOUNTER 2024-09-29 08:25 | Inpatient (IN) | payer MEDICARE ==
[2024-09-29 09:02] LABS: ABG HCO3 20 mmol/L (21-25); ABG Oxygen Saturation 90.7 % (94-97); ABG PCO2 32 mmHg (35-45); ABG PH 7.41 (7.35-7.45); ABG TCO2 21 mmol/L (19-24); Allen Test Performed? Yes
[2024-09-29 09:02] LABS: Basophils # (A) 0.08 10*3/uL (0.00-0.10); Basophils % (A) 0.5 %; Eosinophils # (A) 0.17 10*3/uL (0.04-0.35); Eosinophils % (A) 1.1 %; HCT 25.5 % (39.6-50.0); HGB 8.4 g/dL (13.0-17.0); Lymphocytes # (A) 1.05 10*3/uL (0.90-5.00); Lymphocytes % (A) 6.9 %; MCH 28.9 pg (27.0-32.0); MCHC 32.9 g/dL (32.0-37.0); MCV 87.6 fL (80.0-97.0); Mean Platelet Volume 9.8 fL (9.5-12.2); Monocytes # (A) 0.95 10*3/uL (0.20-1.00); Monocytes % (A) 6.3 %; Neutrophils # (A) 12.66 10*3/uL (1.80-7.70); Neutrophils % (A) 83.5 %; Platelet Count 374 10*3/uL (140-440); RBC 2.91 10*6/uL (4.40-5.60); RDW 23.2 % (11.5-14.5); WBC 15.17 10*3/uL (4.50-10.00)
[2024-09-29 09:05] LABS: INR 1.3 (<1.2); Partial Thromboplastin Time 26.1 sec (22.0-30.0); Prothrombin Time 13.8 sec (10.0-12.5)
[2024-09-29 09:13] LABS: ALT 18 U/L (4-49); AST 42 U/L (17-59); African American GFR (CKD) 26 (>60 ml/min/1.73 sqM); Albumin 1.9 g/dL (3.5-5.0); Alkaline Phosphatase 269 U/L (38-126); Anion Gap 6 mmol/L; Blood Urea Nitrogen 22 mg/dL (9-20); Calcium 7.8 mg/dL (8.4-10.2); Carbon Dioxide 20 mmol/L (22-30); Chloride 113 mmol/L (98-107); Glucose 123 mg/dL (74-99); Magnesium 1.9 mg/dL (1.6-2.3); Non-African American GFR(CKD) 23 (>60 ml/min/1.73 sqM); Potassium 4.2 mmol/L (3.5-5.1); Sodium 139 mmol/L (137-145); Total Bilirubin 0.7 mg/dL (0.2-1.3); Total Protein 4.7 g/dL (6.3-8.2)
--- NOTE | 2024-09-29 09:21 | ED ---
General Adult HPI - General Chief complaint: Shortness of Breath Stated complaint: SOB Time Seen by Provider: 09/29/24 08:35 Source: patient, EMS, RN notes reviewed, old records reviewed Mode of arrival: EMS - History of Present Illness Initial comments: This is a 54-year-old male who is at her shelter recovering from a cellulitis and amputation of the toe. Patient was found to be oxygenating at 66% in the shelter so they sent him to the emergency department. Patient was put on BiPAP and route and was oxygenating at 98% on arrival. Patient states he did feel short of breath yesterday and has gotten progressively worse throughout the night. Patient denies chest pain or palpitation. Patient has abdominal pain patient has nausea vomiting diarrhea. Patient denies any new symptoms. - Related Data Home Medications Medication Instructions Recorded Confirmed Tamsulosin HCl [Flomax] 0.4 mg PO HS@209907/16/23 01/22/24 0.9 % Sodium Chloride [Sodium 10 ml IV Q12H 01/22/24 01/22/24 Chloride Flush] Acetaminophen Tab [Tylenol] 650 mg PO Q6H PRN 01/22/24 01/22/24 Cefepime [Maxipime] 2 gm IVPB Q12H 01/22/24 01/22/24 Glucerna Shake 1 can PO HS@209901/22/24 01/22/24 Lipase/Protease/Amylase [Rebel Dr 1 cap PO TID-W/MEALS 01/22/24 01/22/24 24,000 Unit Capsule] Omeprazole [PriLOSEC] 20 mg PO BID@0900,209901/22/24 01/22/24 Ondansetron [Zofran] 4 mg PO TID PRN 01/22/24 01/22/24 Patient Own Pump 0 bag 01/22/24 amantadine HCL [Amantadine] 100 mg PO BID@0900,209901/22/24 01/22/24 Previous Rx's Medication Instructions Recorded HYDROcodone/APAP 5-325MG [[place] 1 tab PO Q6H PRN 5 Days tab 01/24/24 5-325] Allergies Allergy/AdvReac Type Severity Reaction Status Date / Time No Known Allergies Allergy Verified 09/29/24 11:17 Review of Systems ROS Statement: Those systems with pertinent positive or pertinent negative responses have been documented in the HPI. ROS Other: All systems not noted in ROS Statement are negative. Past Medical History Past Medical History: COPD, CVA/TIA, Diabetes Mellitus, GERD/Reflux, GI Bleed, Hyperlipidemia, Hypertension, Neurologic Disorder, Osteoarthritis (OA), Pneumonia, Prostate Disorder, Rheumatoid Arthritis (RA) Additional Past Medical History / Comment(s): Pt recently admitted to [facility] on 09/15/20 with abdominal pain/paraesophageal hernia or pancreatic pseudocyst-pt states he f/u at Dr. Kellogg's office and was told it is a pancreatic mass. Other hx: ETOH abuse, recurrent pancreatitis, chronic back pain, neuropathy bilateral feet and chronic urinary retention since back surgery, self caths prn, chronic L hydroureteronephrosis d/t reflux, MORPHINE PAIN PUMP L ABDOMIN, L shoulder pain/dislocation, hiatal hernia, PUD, upper and lower GI bleeds, BPH, pt states surgery to remove kidney stones. occasional weakness right side, parkinsons. Slurred speech. CVA about 5-6 years ago per patient. History of Any Multi-Drug Resistant Organisms: None Reported Past Surgical History: Back Surgery, Cholecystectomy, Orthopedic Surgery Additional Past Surgical History / Comment(s): EGDs, colonoscopy, low back titanium plate/rods/cages, spinal stimulator since removed, MORPHINE PAIN PUMP, bronchoscopy, surgery for kidney stones, bilateral knee arthroscopies, R 5th finger reattachment. bowel resection. feeding tube. Past Anesthesia/Blood Transfusion Reactions: No Reported Reaction Past Psychological History: Anxiety, Depression Smoking Status: Current every day smoker Past Alcohol Use History: Heavy Past Drug Use History: None Reported - Past Family History Father Family Medical History: Diabetes Mellitus Additional Family Medical History / Comment(s): Mother Family Medical History: Dementia, Hyperlipidemia, Hypertension Additional Family Medical History / Comment(s): Mother General Exam - General Exam Comments Initial Comments: GENERAL: Patient is well-developed and well-nourished. Patient is nontoxic and well-hy drated and is in mild distress. ENT: Neck is soft and supple. No significant lymphadenopathy is noted. Oropharynx is clear. Moist mucous membranes. Neck has full range of motion without eliciting any pain. EYES: The sclera were anicteric and conjunctiva were pink and moist. Extraocular move ments were intact and pupils were equal round and reactive to light. Eyelids were unremarkable. PULMONARY: Unlabored respirations. Good breath sounds bilaterally. Occasional expiratory wheeze CARDIOVASCULAR: There is a regular rate and rhythm without any murmurs gallops or rubs. ABDOMEN: Soft and nontender with normal bowel sounds. SKIN: Skin is clear with no lesions or rashes and otherwise unremarkable. NEUROLOGIC: Patient is alert and oriented x3. Cranial nerves II through XII are grossly intact. Motor and sensory are also intact. Normal speech, volume and content. Symmetrical smile. MUSCULOSKELETAL: Normal extremities with adequate strength and full range of motion. LYMPHATICS: No significant lymphadenopathy is noted PSYCHIATRIC: Normal psychiatric evaluation. Course Vital Signs 09/29/24 09/29/24 09/29/24 08:26 08:33 09:13 Temperature 97.9 F Pulse Rate 122 H Respiratory 43 H Rate Blood Pressure 107/72 O2 Sat by Pulse 97 94 L Oximetry Fraction of 50 Inspired Oxygen (FIO2) 09/29/24 09/29/24 09/29/24 09:30 09:34 09:53 Temperature Pulse Rate 120 H 116 H 120 H Respiratory 32 H Rate Blood Pressure 91/64 O2 Sat by Pulse 95 Oximetry Fraction of Inspired Oxygen (FIO2) 09/29/24 09/29/24 09/29/24 10:10 10:16 10:20 Temperature Pulse Rate 118 H Respiratory 34 H 40 H Rate Blood Pressure 102/64 O2 Sat by Pulse 91 L 96 Oximetry Fraction of 40 Inspired Oxygen (FIO2) Medical Decision Making - Medical Decision Making EKG is interpreted by myself. EKG shows sinus tachycardia at 117 bpm MN 154 QRS is 84 QT interval 308 QTc is 377. Patient's EKG shows slight ST segment depression in leads V1 and V2. Was pt. sent in by a medical professional or institution (, PA, [employer], urgent care, hospital, or shelter...) When possible be specific @ -No Did you speak to anyone other than the patient for history (EMS, parent, family, police, friend...)? What history was obtained from this source @ -No Did you review nursing and triage notes (agree or disagree)? Why? @ -I reviewed and agree with nursing and triage notes Were old charts reviewed (outside hosp., previous admission, EMS record, old EKG, old radiological studies, urgent care reports/EKG's, shelter records)? Report findings @ -No old charts were reviewed Differential Diagnosis? @ -Differential Dyspnea: Coronary syndrome, arrhythmia, tamponade, asthma, COPD, pulmonary embolism, pneumonia, pneumothorax, pulmonary effusion, anaphylaxis, diabetic ketoacidosis, flailed chest, pulmonary contusion, diaphragmatic rupture, anemia, neuromuscular, this is not meant to be an all-inclusive list. EKG interpreted by me (3pts min.). @ -As above X-rays interpreted by me (1pt min.). @ -Chest x-ray shows acute pulmonary edema CT interpreted by me (1pt min.). @ -None done U/S interpreted by me (1pt. min.). @ -None done What testing was considered but not performed or refused? (CT, X-rays, U/S, labs)? Why? @ -None What meds were considered but not given or refused? Why? @ -None Did you discuss the management of the patient with other professionals (nile dumont i.e. , PA, [employer], lab, RT, psych nurse, manager social, bowling ball grader and marker, teacher, public health officer, registered nurse hh case manager)? Give summary @ -I spoke with Dr. Diallo and he agreed to admit the patient Was smoking cessation discussed for >3mins.? @ -No Was critical care preformed (if so, how long)? @ -35 minutes Were there social determinants of health that impacted care today? How? (Homelessness, low income, unemployed, alcoholism, drug addiction, transportation, low edu. Level, literacy, decrease access to med. care, retirement, rehab)? @ -No Was there de-escalation of care discussed even if they declined (Discuss DNR or withdrawal of care, Hospice)? DNR status @ -No What co-morbidities impacted this encounter? (DM, HTN, Smoking, COPD, CAD, Cancer, CVA, ARF, Chemo, Hep., AIDS, mental health diagnosis, sleep apnea, morbid obesity)? @ -None Was patient admitted / discharged? Hospital course, mention meds given and route, prescriptions, significant lab abnormalities, going to OR and other pertinent info. @ -I spoke with Dr. Diallo he agreed to admit the patient. Patient was on BiPAP for pulmonary edema x-ray was read by radiology as possible pneumonia so the patient was also started on antibiotics. Patient was given Lasix patient will be admitted and have Lasix [id number] as an inpatient. Undiagnosed new problem with uncertain prognosis? @ -No Drug Therapy requiring intensive monitoring for toxicity (Heparin, Nitro, Insulin, Cardizem)? @ -No Were any procedures done? @ -No Diagnosis/symptom? @ -Acute pulmonary edema Acute, or Chronic, or Acute on Chronic? @ -Acute Uncomplicated (without systemic symptoms) or Complicated (systemic symptoms)? @ -Complicated Side effects of treatment? @ -No Exacerbation, Progression, or Severe Exacerbation? @ -No Poses a threat to life or bodily function? How? (Chest pain, [place], AR, pneumonia, PE, COPD, DKA, ARF, appy, cholecystitis, CVA, Diverticulitis, Homicidal, Suicidal, threat to staff... and all critical care pts) @ -Yes this could lead to hypoxia and endorgan dysfunction Diagnosis/symptom? @ -Acute renal failure Acute, or Chronic, or Acute on Chronic? @ -Acute Uncomplicated (without systemic symptoms) or Complicated (systemic symptoms)? @ -Comp located Side effects of treatment? @ -None Exacerbation, Progression, or Severe Exacerbation] @ -No Poses a threat to life or bodily function? @ -Yes this can lead to electrolyte abnormalities and cardiac arrhythmias and - Lab Data Result diagrams: 09/29/24 08:45 09/29/24 08:45 Lab Results 09/29/24 09/29/24 09/29/24 Range/Units 08:45 08:45 08:45 WBC 15.17 H (4.50-10.00) 10*3/uL RBC 2.91 L (4.40-5.60) 10*6/uL Hgb 8.4 L (13.0-17.0) g/dL Hct 25.5 L (39.6-50.0) % MCV 87.6 (80.0-97.0) fL MCH 28.9 (27.0-32.0) pg MCHC 32.9 (32.0-37.0) g/dL Plt Count 374 (140-440) 10*3/uL MPV 9.8 (9.5-12.2) fL Immature Gran % (Auto) 1.7 % Neutrophils % 83.5 % Lymphocytes % 6.9 % Monocytes % 6.3 % Eosinophils % 1.1 % Basophils % 0.5 % Immature Gran # 0.26 H (0.00-0.04) 10*3/uL Neutrophils # 12.66 H (1.80-7.70) 10*3/uL Lymphocytes # 1.05 (0.90-5.00) 10*3/uL Monocytes # 0.95 (0.20-1.00) 10*3/uL Eosinophils # 0.17 (0.04-0.35) 10*3/uL Basophils # 0.08 (0.00-0.10) 10*3/uL Manual Slide Review Performed PT 13.8 H (10.0-12.5) sec INR 1.3 H (<1.2) APTT 26.1 (22.0-30.0) sec Sample Site ABG pH (7.35-7.45) ABG pCO2 (35-45) mmHg ABG pO2 (83-108) mmHg ABG HCO3 (21-25) mmol/L ABG Total CO2 (19-24) mmol/L ABG O2 Saturation (94-97) % ABG Base Excess mmol/L Javi Test Hemoglobin (13.0-17.5) gm/dL FiO2 % Sodium 139 (137-145) mmol/L Potassium 4.2 (3.5-5.1) mmol/L Chloride 113 H (98-107) mmol/L Carbon Dioxide 20 L (22-30) mmol/L Anion Gap 6 mmol/L BUN 22 H (9-20) mg/dL Creatinine 2.95 H (0.66-1.25) mg/dL Est GFR (CKD-EPI)AfAm 26 (>60 ml/min/1.73 sqM) Est GFR (CKD-EPI)NonAf 23 (>60 ml/min/1.73 sqM) Glucose 123 H (74-99) mg/dL Plasma Lactic Acid Bandar (0.7-2.0) mmol/L Calcium 7.8 L (8.4-10.2) mg/dL Magnesium 1.9 (1.6-2.3) mg/dL Total Bilirubin 0.7 (0.2-1.3) mg/dL AST 42 (17-59) U/L ALT 18 (4-49) U/L Alkaline Phosphatase 269 H (38-126) U/L Troponin I (0.000-0.034) ng/mL NT-Pro-B Natriuret Pep 02107 pg/mL Total Protein 4.7 L (6.3-8.2) g/dL Albumin 1.9 L (3.5-5.0) g/dL 09/29/24 09/29/24 09/29/24 Range/Units 08:45 08:45 08:58 WBC (4.50-10.00) 10*3/uL RBC (4.40-5.60) 10*6/uL Hgb (13.0-17.0) g/dL Hct (39.6-50.0) % MCV (80.0-97.0) fL MCH (27.0-32.0) pg MCHC (32.0-37.0) g/dL Plt Count (140-440) 10*3/uL MPV (9.5-12.2) fL Immature Gran % (Auto) % Neutrophils % % Lymphocytes % % Monocytes % % Eosinophils % % Basophils % % Immature Gran # (0.00-0.04) 10*3/uL Neutrophils # (1.80-7.70) 10*3/uL Lymphocytes # (0.90-5.00) 10*3/uL Monocytes # (0.20-1.00) 10*3/uL Eosinophils # (0.04-0.35) 10*3/uL Basophils # (0.00-0.10) 10*3/uL Manual Slide Review PT (10.0-12.5) sec INR (<1.2) APTT (22.0-30.0) sec Sample Site Left Radial ABG pH 7.41 (7.35-7.45) ABG pCO2 32 L (35-45) mmHg ABG pO2 59 L* (83-108) mmHg ABG HCO3 20 L (21-25) mmol/L ABG Total CO2 21 (19-24) mmol/L ABG O2 Saturation 90.7 L (94-97) % ABG Base Excess -4.0 mmol/L Javi Test Yes Hemoglobin 8.3 L (13.0-17.5) gm/dL FiO2 40 % Sodium (137-145) mmol/L Potassium (3.5-5.1) mmol/L Chloride (98-107) mmol/L Carbon Dioxide (22-30) mmol/L Anion Gap mmol/L BUN (9-20) mg/dL Creatinine (0.66-1.25) mg/dL Est GFR (CKD-EPI)AfAm (>60 ml/min/1.73 sqM) Est GFR (CKD-EPI)NonAf (>60 ml/min/1.73 sqM) Glucose (74-99) mg/dL Plasma Lactic Acid Bandar 1.3 (0.7-2.0) mmol/L Calcium (8.4-10.2) mg/dL Magnesium (1.6-2.3) mg/dL Total Bilirubin (0.2-1.3) mg/dL AST (17-59) U/L ALT (4-49) U/L Alkaline Phosphatase (38-126) U/L Troponin I <0.012 (0.000-0.034) ng/mL NT-Pro-B Natriuret Pep pg/mL Total Protein (6.3-8.2) g/dL Albumin (3.5-5.0) g/dL Disposition Clinical Impression: Acute pulmonary edema, Pneumonia, Acute renal failure Disposition: ADMITTED IP TO THIS HOSP Referrals: Kerri Quinones MD [Primary Care Provider] - 1-2 days Time of Disposition: 11:06
[2024-09-29 09:22] LABS: NT-Pro-B-Type Natriuretic Pept 10100 pg/mL
[2024-09-29 09:26] LABS: ABG PO2 59 mmHg (83-108)
[2024-09-29] MEDS ORDERED: VANCOMYCIN IV PER PHARMACY 1 EACH MISC MISCELLANE PRN (09:30)
--- NOTE | 2024-09-29 09:32 | XR ---
EXAMINATION TYPE: XR chest 2V DATE OF EXAM: 09/29/2024 9:24 AM COMPARISON: Chest radiographs from 01/25/2024. CLINICAL INDICATION: Male, 54 years old with history of difficulty breathing; [facility] TECHNIQUE: XR chest 2V Frontal and lateral views of the chest. FINDINGS: Lungs/Pleura: Multifocal airspace opacities. No evidence of pneumothorax or pleural effusion. Pulmonary vascularity: Unremarkable. Heart/mediastinum: Cardiomediastinal silhouette is unremarkable. Musculoskeletal: No acute osseous pathology. IMPRESSION: Multifocal airspace opacities concerning for pneumonia. [facility], , 09/29/2024 9:30 AM
[2024-09-29] MEDS: ALBUTEROL NEBULIZED 2.5 MG/3 ML INHALATION STA (09:34)
[2024-09-29] MEDS: IPRATROPIUM 0.5 MG/2.5 ML NEBU INHALATION STA (09:34)
[2024-09-29] MEDS: methylPREDNISolone SOD SUCCI 125 MG/2 ML VIAL IV STA (09:37)
[2024-09-29] MEDS: NITROGLYCERIN OINT 1 INCH/GM PACKET TOPICAL STA (10:20)
[2024-09-29] MEDS: FUROSEMIDE 10 MG/ML 4 ML VIAL IV STA (10:46)
[2024-09-29] MEDS: LORazepam 1 MG/0.5 ML VIAL IV STA ×2 (10:47→18:19)
[2024-09-29] MEDS: cefTRIAXone IN SWFI 1,000 MG/10 ML SYRINGE IVP STA (10:49)
[2024-09-29] MEDS: VANCOMYCIN 1,250 MG in SODIUM CHLORIDE 0.9% 250 ML IVPB ONE (11:15)
[2024-09-29] MEDS: AZITHROMYCIN 500 MG in SODIUM CHLORIDE 0.9% 250 ML IVPB SCH (14:54)
[2024-09-29] MEDS: FUROSEMIDE 10 MG/ML 4 ML VIAL IV SCH ×2 (18:06→21:25)
--- NOTE | 2024-09-29 18:53 | P.HPIM ---
History of Present Illness H&P Date: 09/29/24 Chief Complaint: Shortness of breath Patient is a 54-year-old male with a known history of alcoholic liver disease, pancreatic pseudocyst, recurrent pancreatitis, hypertension, hyperlipidemia, diabetes type 2, COPD, history of CVA/TIA with slurred speech, bilateral peripheral neuropathy, chronic low back pain, BPH, morphine pain pump, history of GI bleed, anxiety/depression and current everyday smoker and history of heavy alcohol abuse. Patient was sent from long-term where he is currently recovering from a cellulitis and amputation of the left toe. Apparently was found to be hypoxic with pulse ox 66% at the long-term and was sent to ER. Patient was placed on BiPAP en route to the hospital. Patient states that he has been having shortness of breath since yesterday and progressively worse throughout the night. Denied any complaints of chest pain. No headache or dizziness. No complaints of worsening abdominal pain. No nausea vomiting or diarrhea. Patient is currently on vancomycin IV for osteomyelitis. Chest x-ray showed multifocal airspace opacities concerning for pneumonia. EKG showed sinus tachycardia. Laboratory data showed WBCs 15.1 hemoglobin 8.4 and platelets 374 ABG showed pH 7.4 pCO2 32 PO259 and Sodium 139 potassium 4.2 chloride 113 bicarb is 20 BUN 2020 creatinine 2.95 and blood sugar 123, lactic acid 1.3, alk phos 269 troponin 0.012 and proBNP 10,100 and albumin 1.9 Patient was tachycardic with heart rate 122 and tachypneic with respiratory rate 43 on admission. Review of Systems Constitutional: Patient denies any fever or chills . No generalized weakness or weight loss. Abdomen: Patient denied nausea vomiting and diarrhea and abdominal pain. Cardiovascular: Patient denies any chest pain. Positive for short of breath no palpitations. Respiratory: patient denied any cough or sputum production. Positive for shortness of breath Neurologic: Patient denied any numbness or tingling. no headache. Musculoskeletal: Patient denies any complaints of joint swelling or deformity. Complete review of systems could not be obtained from the patient. Patient is currently on BiPAP. Past Medical History Past Medical History: COPD, CVA/TIA, Diabetes Mellitus, GERD/Reflux, GI Bleed, Hyperlipidemia, Hypertension, Neurologic Disorder, Osteoarthritis (OA), Pneu monia, Prostate Disorder, Rheumatoid Arthritis (RA) Additional Past Medical History / Comment(s): Pt recently admitted to [facility] on 09/15/20 with abdominal pain/paraesophageal hernia or pancreatic pseudocyst-pt states he f/u at Dr. Kellogg's office and was told it is a pancreatic mass. Other hx: ETOH abuse, recurrent pancreatitis, chronic back pain, neuropathy bilateral feet and chronic urinary retention since back surgery, self caths prn, chronic L hydroureteronephrosis d/t reflux, MORPHINE PAIN PUMP L ABDOMIN, L shoulder pain/dislocation, hiatal hernia, PUD, upper and lower GI bleeds, BPH, pt states surgery to remove kidney stones. occasional weakness right side, par kinsons. Slurred speech. CVA about 5-6 years ago per patient. History of Any Multi-Drug Resistant Organisms: None Reported Past Surgical History: Back Surgery, Cholecystectomy, Orthopedic Surgery Additional Past Surgical History / Comment(s): EGDs, colonoscopy, low back titanium plate/rods/cages, spinal stimulator since removed, MORPHINE PAIN PUMP, bronchoscopy, surgery for kidney stones, bilateral knee arthroscopies, R 5th finger reattachment. bowel resection. feeding tube. Past Anesthesia/Blood Transfusion Reactions: No Reported Reaction Past Psychological History: Anxiety, Depression Smoking Status: Current every day smoker Past Alcohol Use History: Heavy Past Drug Use History: None Reported - Past Family History Father Family Medical History: Diabetes Mellitus Additional Family Medical History / Comment(s): Mother Family Medical History: Dementia, Hyperlipidemia, Hypertension Additional Family Medical History / Comment(s): Mother Medications and Allergies Home Medications Medication Instructions Recorded Confirmed Type Tamsulosin HCl [Flomax] 0.4 mg PO DAILY 07/16/23 09/29/24 History 0.9 % Sodium Chloride [Sodium 10 ml IV Q12H 01/22/24 09/29/24 History Chloride Flush] Acetaminophen Tab [Tylenol] 650 mg PO Q6H PRN 01/22/24 09/29/24 History Glucerna Shake 1 can PO HS@209901/22/24 09/29/24 History Lipase/Protease/Amylase [Rebel [place] 1 cap PO TID-W/MEALS 01/22/24 09/29/24 History 24,000 Unit Capsule] Omeprazole [PriLOSEC] 20 mg PO BID@0900,2100 01/22/24 09/29/24 History Ondansetron [Zofran] 4 mg PO TID PRN 01/22/24 09/29/24 History Patient Own Pump 0 bag 01/22/24 History amantadine HCL [Amantadine] 100 mg PO BID@0900,2100 01/22/24 09/29/24 History HYDROcodone/APAP 5-325MG [[place] 1 tab PO Q6H PRN 5 Days tab 01/24/24 09/29/24 Rx 5-325] 0.9 % Sodium Chloride [Sodium 10 ml IV DIRECTED PRN 09/29/24 09/29/24 History Chloride Flush] Budesonide-Formot 160-4.5 Mcg 2 puff INHALATION RT-BID 09/29/24 09/29/24 History [Symbicort 160-4.5 Mcg Inhaler] Folic Acid 1 mg PO DAILY 09/29/24 09/29/24 History Ipratropium-Albuterol Nebulize 3 ml INHALATION RT-Q4H PRN 09/29/24 09/29/24 History [Duoneb 0.5 mg-3 mg/3 ml Soln] Ipratropium-Albuterol Nebulize 3 ml INHALATION RT-TID 09/29/24 09/29/24 History [Duoneb 0.5 mg-3 mg/3 ml Soln] Lactulose [Cephulac] 20 gm PO BID PRN 09/29/24 09/29/24 History Vancomycin 1,000 mg IV Q12H 09/29/24 09/29/24 History Allergies Allergy/AdvReac Type Severity Reaction Status Date / Time No Known Allergies Allergy Verified 09/29/24 11:17 Physical Exam Vitals: Vital Signs Temp Pulse Resp BP Pulse Ox FiO2 09/29/24 18:00 105 H 34 H 106/69 98 09/29/24 17:00 108 H 34 H 111/79 94 L 09/29/24 16:30 111 H 45 H 86/68 97 09/29/24 16:29 40 09/29/24 16:00 109 H 30 H 104/72 93 L 09/29/24 15:18 96 09/29/24 15:04 94 L 09/29/24 15:00 111 H 28 H 108/70 96 09/29/24 14:00 108 H 30 H 100/63 97 09/29/24 13:00 106 H 30 H 97/64 97 09/29/24 12:33 40 09/29/24 12:00 111 H 32 H 101/67 98 09/29/24 11:00 116 H 31 H 97/63 96 09/29/24 10:20 118 H 40 H 102/64 96 09/29/24 10:16 40 09/29/24 10:10 34 H 91 L 09/29/24 09:53 120 H 09/29/24 09:34 116 H 09/29/24 09:30 120 H 32 H 91/64 95 09/29/24 09:13 94 L 09/29/24 08:33 50 09/29/24 08:26 97.9 F 122 H 43 H 107/72 97 Intake and Output 09/29/24 09/29/24 09/29/24 06:59 14:59 22:59 Output Total 500 Balance -500 Output: Urine 500 Straight 500 Other: # Voids 1 # Bowel Movements 1 Weight 70.307 kg PHYSICAL EXAMINATION: Patient is lying in the bed, mild distress, awake alert and oriented. On BiPAP. HEENT: Normocephalic. Neck is supple. Pupils reactive. Nostrils clear. Oral cav ity is moist. Neck reveals no JVD, carotid bruits, or thyromegaly. CHEST EXAMINATION: Trachea is central. Symmetrical expansion. Bibasilar coarse breath sounds and scattered rhonchi. Nonlabored breathing. CARDIAC: Normal S1, S2 with no gallops. No murmurs ABDOMEN: Soft. Bowel sounds normal. No organomegaly. No abdominal bruits. Extremities: Bilateral lower extremity trace edema. No clubbing or cyanosis Neurologically awake, alert, oriented x3 able to move all extremities. No gross focal deficits noted Skin: No rash or skin lesions. Psychiatric: Coperative. Nonsuicidal Musculoskeletal: No joint swelling or deformity. Results CBC & Chem 7: 09/29/24 08:45 09/29/24 08:45 Labs: Abnormal Lab Results - Last 24 Hours (Table) 09/29/24 09/29/24 09/29/24 Range/Units 08:45 08:45 08:45 WBC 15.17 H (4.50-10.00) 10*3/uL RBC 2.91 L (4.40-5.60) 10*6/uL Hgb 8.4 L (13.0-17.0) g/dL Hct 25.5 L (39.6-50.0) % Immature Gran # 0.26 H (0.00-0.04) 10*3/uL Neutrophils # 12.66 H (1.80-7.70) 10*3/uL PT 13.8 H (10.0-12.5) sec INR 1.3 H (<1.2) ABG pCO2 (35-45) mmHg ABG pO2 (83-108) mmHg ABG HCO3 (21-25) mmol/L ABG O2 Saturation (94-97) % Hemoglobin (13.0-17.5) gm/dL Chloride 113 H (98-107) mmol/L Carbon Dioxide 20 L (22-30) mmol/L BUN 22 H (9-20) mg/dL Creatinine 2.95 H (0.66-1.25) mg/dL Glucose 123 H (74-99) mg/dL Calcium 7.8 L (8.4-10.2) mg/dL Alkaline Phosphatase 269 H (38-126) U/L Total Protein 4.7 L (6.3-8.2) g/dL Albumin 1.9 L (3.5-5.0) g/dL Procalcitonin (0.02-0.50) ng/mL 09/29/24 09/29/24 Range/Units 08:45 08:58 WBC (4.50-10.00) 10*3/uL RBC (4.40-5.60) 10*6/uL Hgb (13.0-17.0) g/dL Hct (39.6-50.0) % Immature Gran # (0.00-0.04) 10*3/uL Neutrophils # (1.80-7.70) 10*3/uL PT (10.0-12.5) sec INR (<1.2) ABG pCO2 32 L (35-45) mmHg ABG pO2 59 L* (83-108) mmHg ABG HCO3 20 L (21-25) mmol/L ABG O2 Saturation 90.7 L (94-97) % Hemoglobin 8.3 L (13.0-17.5) gm/dL Chloride (98-107) mmol/L Carbon Dioxide (22-30) mmol/L BUN (9-20) mg/dL Creatinine (0.66-1.25) mg/dL Glucose (74-99) mg/dL Calcium (8.4-10.2) mg/dL Alkaline Phosphatase (38-126) U/L Total Protein (6.3-8.2) g/dL Albumin (3.5-5.0) g/dL Procalcitonin 6.62 H (0.02-0.50) ng/mL Thrombosis Risk Factor Assmnt - DVT/VTE Prophylaxis DVT/VTE Prophylaxis: Pharmacologic Prophylaxis ordered Assessment and Plan Assessment: Acute hypoxemic respiratory failure requiring BiPAP due to fluid load versus multifocal pneumonia Acute kidney injury possibly ATN and patient is also on vancomycin Acute on chronic CHF with preserved ejection fraction Recent left lower extremity toe ambulation and cellulitis. Currently on vancomycin Previous history of moderate left hydronephrosis Hypertension Diabetes type 2 COPD History of CVA/TIA with slurred speech Bilateral peripheral neuropathy Recurrent pancreatitis and pancreatic pseudocyst Chronic alcoholic liver disease Morphine pain pump Anxiety/depression History of heavy alcohol abuse Current everyday smoker DVT prophylaxis with heparin subcu Plan: Patient is currently on BiPAP. Continue with antibiotics ceftriaxone, azithromycin and vancomycin pharmacy dose. Continue with IV Lasix and monitor renal function closely. Follow-up repeat chest x-ray. Procalcitonin level was ordered. Started on insulin sliding scale. Pain management and follow-up closely. ID, nephrology and pulmonary team will be consulted. Prognosis is guarded with multiple medical problems and comorbid conditions. Time with Patient: Greater than 30
[2024-09-29] MEDS ORDERED: LACTULOSE 20 GM/30 ML CUP PO PRN (18:59)
[2024-09-29] MEDS: SYMBICORT 160-4.5 MCG INHALER INHALATION SCH (19:53)
[2024-09-29] MEDS ORDERED: DEXTROSE 50% SYRINGE 50 ML IVP PRN (19:57)
--- NOTE | 2024-09-29 20:57 | US ---
EXAMINATION TYPE: US renals and bladder DATE OF EXAM: 09/29/2024 COMPARISON: CT 01/22/24 CLINICAL INDICATION: Male, 54 years old with history of ANUM; ANUM. Patient has respiratory mask on fac e and cannot hold breaths for imaging TECHNIQUE: Grayscale imaging of the bilateral kidneys and urinary bladder: FINDINGS: EXAM MEASUREMENTS: Right Kidney: 11.0 x 6.7 x 4.4 cm Left Kidney: 11.5 x 5.5 x 5.7 cm limited due to overlying gas, rib shadows, and pt unable to hold breaths for imaging at this time Right Kidney: wnl as best seen Left Kidney: Dilated left collecting system as seen on prior CT. Evaluation limited by gas. Bladder: Debris surrounding mullins catheter Bilateral Jets seen: not visualized due to mullins IMPRESSION: Limited exam due to overlying bowel gas. No evidence for acute obstructive uropathy. Atrophic left kidney with dilated collecting system as seen on prior CT 01/21/2024. Mullins catheter in place with debris. Correlate for with urinalysis for cystitis. [facility], , 09/29/2024 8:54 PM
[2024-09-29] MEDS ORDERED: NON FORMULARY DRUG (Glucerna Shake 1 CAN Ml) PO SCH (21:00)
[2024-09-29] MEDS: LORazepam 1 MG/0.5 ML VIAL IV PRN (21:25)
[2024-09-29 21:52] LABS: Glucose,Whole Blood 220 mg/dL (70-110)
[2024-09-29] MEDS: INSULIN LISPRO (HumaLOG) 100 UNIT/ML 10 mL VL SQ SCH (22:10)
[2024-09-29] MEDS: ZINC OXIDE PASTE (Z-GUARD) 1 APPLIC TOPICAL PRN (22:10)
[2024-09-29] MEDS: HYDROmorphone 0.5 MG/0.5 ML SYRINGE IVP STA (22:44)
[2024-09-29] MEDS: HEPARIN SODIUM,PORCINE 5,000 UNIT/ML 1 ML VIAL SQ SCH (22:45)
[2024-09-30 02:39] LABS: ABG Base Excess -1.9 mmol/L; ABG HCO3 23 mmol/L (21-25); ABG Oxygen Saturation 36.6 % (94-97); ABG PCO2 40 mmHg (35-45); ABG PH 7.37 (7.35-7.45); ABG TCO2 25 mmol/L (19-24); Allen Test Performed? Yes
[2024-09-30 02:50] LABS: ABG PO2 <30 mmHg (83-108)
--- NOTE | 2024-09-30 04:34 | P.CNPUL ---
History of Present Illness Consult date: 09/30/24 Requesting physician: Jamel Diallo Reason for consult: pneumonia Chief complaint: Respiratory distress History of present illness: Patient is a 54-year-old male with complex past medical history including COPD, nicotine dependence, CVA/TIA, alcohol abuse, recurrent pancreatitis with pancrea tic pseudocyst, urinary retention with previous suprapubic catheter, chronic pain with morphine pump. He is currently in some respiratory distress on BiPAP, unable to answer questioning. Reportedly, sent in from [facility] on the bird in hand. Recently, underwent right fifth toe amputation for osteomyelitis, and was receiving IV antibiotics. Noted to be hypoxic at the outside facility, with an SpO2 of 66%. He was placed on BiPAP on arrival to the emergency department. Workup in the emergency department including a chest x-ray showing diffuse infiltrates bilaterally concerning for pulmonary edema versus multifocal pneumonia. CBC: WBC count 15.2, hemoglobin 8.4, platelets 374. CMP: Sodium 139, potassium 4.2, chloride 113, serum bicarb 20, BUN 22, creatinine 2.95, glucose 123. Appears patient is sustained acute kidney injury. He did have a indwelling urinary catheter placed. Ultrasound of kidneys and bladder showing atrophic left kidney with dilated collecting system, chronic. In place mullins catheter with debris. NT proBNP was elevated at 10,100. Procalcitonin 6.62. Placed on empiric antibiotics in the ED in the form of azithromycin and Rocephin. Also, started on Lasix 40 mg twice daily. Most recent available echocardiogram from 2020 estimating preserved left ventricular ejection fraction of 55 to 60% with grade 1 diastolic dysfunction. Patient currently being evaluated on the cardiac stepdown unit. Appears to be anxious in some respiratory distress. He is on BiPAP with settings 12/5 and FiO2 40%. Previous ABGs done on the settings include a PaO2 of 59, pCO2 of 32, pH of 7.41. He is pulling at the mask, we are going to try and transition him over to Airvo. Review of Systems Unable to obtain due to respiratory distress Past Medical History Past Medical History: COPD, CVA/TIA, Diabetes Mellitus, GERD/Reflux, GI Bleed, Hyperlipidemia, Hypertension, Neurologic Disorder, Osteoarthritis (OA), Pneum onia, Prostate Disorder, Rheumatoid Arthritis (RA) Additional Past Medical History / Comment(s): Pt recently admitted to [facility] [place] on 09/15/20 with abdominal pain/paraesophageal hernia or pancreatic pseudocyst-pt states he f/u at Dr. Kellogg's office and was told it is a pancreatic mass. Other hx: ETOH abuse, recurrent pancreatitis, chronic back pain, neuropathy bilateral feet and chronic urinary retention since back surgery, self caths prn, chronic L hydroureteronephrosis d/t reflux, MORPHINE PAIN PUMP L ABDOMIN, L shoulder pain/dislocation, hiatal hernia, PUD, upper and lower GI bleeds, BPH, pt states surgery to remove kidney stones. occasional weakness right side, park insons. Slurred speech. CVA about 5-6 years ago per patient. History of Any Multi-Drug Resistant Organisms: None Reported Past Surgical History: Back Surgery, Cholecystectomy, Orthopedic Surgery Additional Past Surgical History / Comment(s): EGDs, colonoscopy, low back titanium plate/rods/cages, spinal stimulator since removed, MORPHINE PAIN PUMP, bronchoscopy, surgery for kidney stones, bilateral knee arthroscopies, R 5th finger reattachment. bowel resection. feeding tube. Past Anesthesia/Blood Transfusion Reactions: No Reported Reaction Past Psychological History: Anxiety, Depression Additional Psychological History / Comment(s): PT LIVES AT HOME WITH in a 2 story home that has 3 porch steps/7 steps to 2nd floor.. IS DISABLED WORKED RE [employer] IN PAST. NO SERVICE.. occasionally uses either cane, walker or w/c also has shower chair and raised toilet seat. He does drive if he needs too. Smoking Status: Former smoker Past Alcohol Use History: Heavy Additional Past Alcohol Use History / Comment(s): started smoking at age 14 Smokes 2 packs per day; ETOH ABUSE-patient states he has past hx of heavy drinking but states he has not drank any alcohol in two months 01/22/24. last drink "Used to drink 3-30 packs" of beer daily. Past Drug Use History: None Reported Additional Drug Use History / Comment(s): Pt denies marijuana/street drug use. - Past Family History Father Family Medical History: Diabetes Mellitus Additional Family Medical History / Comment(s): Mother Family Medical History: Dementia, Hyperlipidemia, Hypertension Additional Family Medical History / Comment(s): Mother Medications and Allergies Home Medications Medication Instructions Recorded Confirmed Type Tamsulosin HCl [Flomax] 0.4 mg PO DAILY 07/16/23 09/29/24 History 0.9 % Sodium Chloride [Sodium 10 ml IV Q12H 01/22/24 09/29/24 History Chloride Flush] Acetaminophen Tab [Tylenol] 650 mg PO Q6H PRN 01/22/24 09/29/24 History Glucerna Shake 1 can PO HS@209901/22/24 09/29/24 History Lipase/Protease/Amylase [Rebel Belcher 1 cap PO TID-W/MEALS 01/22/24 09/29/24 History 24,000 Unit Capsule] Omeprazole [PriLOSEC] 20 mg PO BID@0900,209901/22/24 09/29/24 History Ondansetron [Zofran] 4 mg PO TID PRN 01/22/24 09/29/24 History Patient Own Pump 0 bag 01/22/24 History amantadine HCL [Amantadine] 100 mg PO BID@0900,209901/22/24 09/29/24 History HYDROcodone/APAP 5-325MG [Aiken 1 tab PO Q6H PRN 5 Days tab 01/24/24 09/29/24 Rx 5-325] 0.9 % Sodium Chloride [Sodium 10 ml IV DIRECTED PRN 09/29/24 09/29/24 History Chloride Flush] Budesonide-Formot 160-4.5 Mcg 2 puff INHALATION RT-BID 09/29/24 09/29/24 History [Symbicort 160-4.5 Mcg Inhaler] Folic Acid 1 mg PO DAILY 09/29/24 09/29/24 History Ipratropium-Albuterol Nebulize 3 ml INHALATION RT-Q4H PRN 09/29/24 09/29/24 H istory [Duoneb 0.5 mg-3 mg/3 ml Soln] Ipratropium-Albuterol Nebulize 3 ml INHALATION RT-TID 09/29/24 09/29/24 History [Duoneb 0.5 mg-3 mg/3 ml Soln] Lactulose [Cephulac] 20 gm PO BID PRN 09/29/24 09/29/24 History Vancomycin 1,000 mg IV Q12H 09/29/24 09/29/24 History Allergies Allergy/AdvReac Type Severity Reaction Status Date / Time No Known Allergies Allergy Verified 09/29/24 11:17 Physical Exam Vitals: Vital Signs Temp Pulse Pulse Resp BP BP Pulse Ox 09/30/24 02:00 09/30/24 01:00 94 L 09/30/24 00:41 09/30/24 00:00 98.5 F 99 26 H 115/79 93 L 09/29/24 20:29 98.4 F 102 H 24 122/82 99 09/29/24 20:12 102 H 30 H 105/67 93 L 09/29/24 19:49 09/29/24 18:00 105 H 34 H 106/69 98 09/29/24 17:00 108 H 34 H 111/79 94 L 09/29/24 16:30 111 H 45 H 86/68 97 09/29/24 16:29 09/29/24 16:00 109 H 30 H 104/72 93 L 09/29/24 15:18 96 09/29/24 15:04 94 L 09/29/24 15:00 111 H 28 H 108/70 96 09/29/24 14:00 108 H 30 H 100/63 97 09/29/24 13:00 106 H 30 H 97/64 97 09/29/24 12:33 09/29/24 12:00 111 H 32 H 101/67 98 09/29/24 11:00 116 H 31 H 97/63 96 09/29/24 10:20 118 H 40 H 102/64 96 09/29/24 10:16 09/29/24 10:10 34 H 91 L 09/29/24 09:53 120 H 09/29/24 09:34 116 H 09/29/24 09:30 120 H 32 H 91/64 95 09/29/24 09:13 94 L 09/29/24 08:33 09/29/24 08:26 97.9 F 122 H 43 H 107/72 97 FiO2 09/30/24 02:00 80 09/30/24 01:00 50 09/30/24 00:41 40 09/30/24 00:00 09/29/24 20:29 09/29/24 20:12 09/29/24 19:49 40 09/29/24 18:00 09/29/24 17:00 09/29/24 16:30 09/29/24 16:29 40 09/29/24 16:00 05/12/25 15:18 09/29/24 15:04 09/29/24 15:00 09/29/24 14:00 09/29/24 13:00 09/29/24 12:33 40 09/29/24 12:00 09/29/24 11:00 09/29/24 10:20 09/29/24 10:16 40 09/29/24 10:10 09/29/24 09:53 09/29/24 09:34 09/29/24 09:30 09/29/24 09:13 09/29/24 08:33 50 09/29/24 08:26 Intake and Output 09/29/24 09/29/24 09/30/24 14:59 22:59 06:59 Intake Total 480 Output Total 500 250 Balance -500 230 Intake: Oral 480 Output: Urine 500 250 Straight 500 Other: Voiding Method Indwelling Catheter # Voids 1 # Bowel Movements 1 Weight 70.307 kg 70.307 kg GENERAL EXAM: Anxious, 54-year-old male on BiPAP, tachypneic and pulling at BiPAP mask, he does follow commands appropriately. HEAD: Normocephalic and atraumatic EYES: Normal reaction of pupils, equal size. NOSE: Clear with pink turbinates. THROAT: No erythema or exudates. NECK: No masses, no JVD. CHEST: No chest wall deformity. LUNGS: Equal air entry with diffuse coarse rhonchi heard bilaterally and throughout. On BiPAP with settings 12/5 and FiO2 40%. SpO2 recorded at 93%. Tachypneic breathing in the mid 30s and tidal volumes around 600 to 800 mL. Unable to hold continued conversation. CVS: S1 and S2 normal with no audible murmur, regular rhythm. No extra heart sounds ABDOMEN: No hepatosplenomegaly, active bowel sounds, no guarding or rigidity. SPINE: No scoliosis or deformity SKIN: No rashes CENTRAL NERVOUS SYSTEM: No focal deficits, tone is normal in all 4 extremities. EXTREMITIES: There is no peripheral edema, clubbing, or cyanosis. Peripheral pulses are intact. Previous right fifth great toe amputation. Adherent slough, no significant undermining or tunneling. Results - Laboratory Findings CBC and BMP: 09/30/24 06:34 09/30/24 06:34 ABG ABG pH 7.37 (7.35-7.45) 09/30/24 02:24 ABG pCO2 40 mmHg (35-45) 09/30/24 02:24 ABG pO2 <30 mmHg (83-108) L* 09/30/24 02:24 ABG O2 Saturation 36.6 % (94-97) L 09/30/24 02:24 PT/INR, D-dimer PT 13.8 sec (10.0-12.5) H 09/29/24 08:45 INR 1.3 (<1.2) H 09/29/24 08:45 Abnormal lab findings: Abnormal Labs 09/29/24 09/29/24 09/29/24 08:45 08:45 08:45 WBC 15.17 H RBC 2.91 L Hgb 8.4 L Hct 25.5 L Immature Gran # 0.26 H Neutrophils # 12.66 H PT 13.8 H INR 1.3 H ABG pCO2 ABG pO2 ABG HCO3 ABG Total CO2 ABG O2 Saturation Hemoglobin Chloride 113 H Carbon Dioxide 20 L BUN 22 H Creatinine 2.95 H Glucose 123 H POC Glucose (mg/dL) Calcium 7.8 L Alkaline Phosphatase 269 H Total Protein 4.7 L Albumin 1.9 L Procalcitonin 09/29/24 09/29/24 09/29/24 08:45 08:58 21:50 WBC RBC Hgb Hct Immature Gran # Neutrophils # PT INR ABG pCO2 32 L ABG pO2 59 L* ABG HCO3 20 L ABG Total CO2 ABG O2 Saturation 90.7 L Hemoglobin 8.3 L Chloride Carbon Dioxide BUN Creatinine Glucose POC Glucose (mg/dL) 220 H Calcium Alkaline Phosphatase Total Protein Albumin Procalcitonin 6.62 H 09/30/24 02:24 WBC RBC Hgb Hct Immature Gran # Neutrophils # PT INR ABG pCO2 ABG pO2 <30 L* ABG HCO3 ABG Total CO2 25 H ABG O2 Saturation 36.6 L Hemoglobin 7.6 L Chloride Carbon Dioxide BUN Creatinine Glucose POC Glucose (mg/dL) Calcium Alkaline Phosphatase Total Protein Albumin Procalcitonin - Diagnostic Findings Chest x-ray: image reviewed Assessment and Plan Assessment: Acute hypoxemic respiratory failure, initially placed on BiPAP, chest x-ray showing diffuse bilateral infiltrates concerning for pulmonary edema versus multifocal pneumonia. Chronic obstructive pulmonary disease Acute kidney injury, ultrasound of kidneys and bladder showing atrophic left kidney with dilated collecting system, chronic. Mullins catheter was in place with debris. Chronic urinary retention with previous suprapubic catheter. This was reversed and patient intermittently straight caths History osteomyelitis and right fifth toe amputation Acute leukocytosis Chronic anemia, hemoglobin 8.4 g/dL History of chronic pancreatitis with pancreatic pseudocyst History of alcohol abuse History of CVA/TIA Chronic pain with morphine pump Tobacco dependence Plan: Chest x-ray showing diffuse bilateral infiltrates concerning for pulmonary edema, multifocal pneumonia could not be excluded Patient transitioned over to Airvo and appears more comfortable currently 60 L and 80%. Follow-up ABG was reportedly venous. Continue Lasix 40 mg twice daily Repeat chest x-ray in the morning Also, placed on empiric antibiotics in the ED in the form of azithromycin and Rocephin Previously receiving IV vancomycin at outside facility. Infectious disease consulted Nephrology is consulted Consult wound care Prognosis is guarded secondary to above-mentioned comorbidities. Case to be reviewed with my supervising physician I have personally seen and examined the patient, performed the documentation and the assessment and plan as written. Number of minutes spent on the visit:20 This is a joint evaluation is being done along with the nurse practitioner. This evaluation was done more than 30 minutes. In summary, the patient presents with increased shortness of breath, pulmonary edema, UTI with obstructive uropathy and an acute kidney injury. Mullins catheter has been inserted and the patient was given IV Lasix. UA is abnormal, findings are suspicious for underlying urine tract infection the patient is currently on IV Rocephin. The patient was initially was placed on a BiPAP and the patient is currently on Airvo at 50 L with an FiO2 of 60%. Feeling better. Creatinine is to be monitored. The patient has acute kidney injury. Creatinine was at 3.16 with a BUN of 27 and the rest of the electrolytes are stable with serum bicarb of 20. The white cell count of 16.4, hemoglobin is at 7.5. Awake and alert and communicating. He is currently on Lasix 40 mg every 12 hours. Numerical Control Machine Machinist on the case. Will continue to follow. Comorbidities were all noted. Time with Patient: Greater than 30
[2024-09-30 06:19] LABS: Glucose,Whole Blood 169 mg/dL (70-110)
[2024-09-30] MEDS: LIPASE 20,000/PROTEASE 63,000/AMYLASE 84,000 PO SCH (06:27)
[2024-09-30 06:41] LABS: Appearance,Urine Cloudy (Clear); Bacteria,Urine Many /hpf; Bilirubin,Urine Negative (Negative); Blood,Urine Small (Negative); Color,Urine Colorless; Glucose,Urine (UA) Negative (Negative); Hyaline Casts,Urine 13 /lpf (0-2); Ketones,Urine Negative (Negative); Leukocyte Esterase,Urine Large (Negative); Mucus,Urine Rare /hpf; Nitrite,Urine Negative (Negative); Protein,Urine Negative (Negative); RBC,Urine 6 /hpf (0-5); Specific Gravity,Urine 1.009 (1.001-1.035); Urobilinogen,Urine <2.0 mg/dL (<2.0); WBC,Urine 175 /hpf (0-5)
--- NOTE | 2024-09-30 07:17 | XR ---
EXAMINATION TYPE: XR chest 1V DATE OF EXAM: 09/30/2024 6:44 AM COMPARISON: Chest radiograph from one day prior. CLINICAL INDICATION: Male, 54 years old with history of CHF; H TECHNIQUE: XR chest 1V Frontal view of the chest. FINDINGS: Lungs/Pleura: There is no evidence of pleural effusion, focal consolidation, or pneumothorax. Pulmonary vascularity: Pulmonary vascular congestion. Heart/mediastinum: Cardiomediastinal silhouette is unremarkable. Musculoskeletal: No acute osseous pathology. Stimulator leads project over the spine. Other findings: None Lines/Tubes: Right-sided PICC line with distal tip at the cavoatrial junction. IMPRESSION: Similar Pulmonary edema [facility], , 09/30/2024 7:15 AM
[2024-09-30 07:36] LABS: Basophils # (A) 0.04 10*3/uL (0.00-0.10); Basophils % (A) 0.2 %; HCT 23.1 % (39.6-50.0); HGB 7.5 g/dL (13.0-17.0); Lymphocytes # (A) 0.97 10*3/uL (0.90-5.00); Lymphocytes % (A) 5.9 %; MCH 29.9 pg (27.0-32.0); MCHC 32.5 g/dL (32.0-37.0); Mean Platelet Volume 10.6 fL (9.5-12.2); Monocytes # (A) 1.06 10*3/uL (0.20-1.00); Monocytes % (A) 6.4 %; Neutrophils % (A) 85.6 %; Platelet Count 376 10*3/uL (140-440); RBC 2.51 10*6/uL (4.40-5.60); RDW 23.4 % (11.5-14.5); WBC 16.49 10*3/uL (4.50-10.00)
[2024-09-30 07:58] LABS: African American GFR (CKD) 24 (>60 ml/min/1.73 sqM); Anion Gap 5 mmol/L; Blood Urea Nitrogen 27 mg/dL (9-20); Carbon Dioxide 20 mmol/L (22-30); Chloride 113 mmol/L (98-107); Glucose 147 mg/dL (74-99); Non-African American GFR(CKD) 21 (>60 ml/min/1.73 sqM); Potassium 4.6 mmol/L (3.5-5.1); Sodium 138 mmol/L (137-145)
[2024-09-30] MEDS: IPRATROPIUM-ALBUTEROL 3 ML NEB INHALATION PRN (08:10)
[2024-09-30] MEDS: TAMSULOSIN 0.4 MG CAP.ER.24H PO SCH (08:48)
[2024-09-30] MEDS: FOLIC ACID 1 MG TAB PO SCH (08:48)
[2024-09-30] MEDS: PANTOPRAZOLE 40 MG TABLET PO SCH (08:48)
--- NOTE | 2024-09-30 10:29 | P.CONS ---
History of Present Illness - Reason for Consult Consult date: 09/30/24 wound care - History of Present Illness This is a 54-year-old patient who has a open ulceration to the right fifth metatarsal. Family states that he underwent a amputation with Dr. Vergara approximately 1 week ago. The ulceration shows significant amount of slough and nonviable tissue the wound edges do not attached to the wound base no granulation seen throughout. Patient is a poor historian unsure of what is being utilized to the wound. Patient's past medical history significant for COPD CVA diabetes GERD hyperlipidemia hypertension Parkinson's. Review Of Systems: Constitutional: No fever, no chills, no night sweats. No weight change. No weakness, fatigue or lethargy. No daytime sleepiness. Integumentary:reports wounds, no lesions. No rash or pruritus. No unusual bruising. No change in hair or nails. Physical exam: General Appearance: Alert, cooperative, no distress, appears stated age. Skin: See HPI all other Skin color, texture, tugor normal, no rashes or lesions. Neurologic: Alert oriented x2 Assessment: 1. Nonhealing ulceration with necrosis of bone other part of right foot 2. Diabetic foot ulcer Plan: 1. Consult Dr. Vergara related to status post right fifth digit amputation 2. Apply Santyl, saline moist gauze, dry gauze, rolled gauze secured with paper tape change daily. Thank you for the consultation any questions please contact the wound care center DNP note has been reviewed and discussed with Dr. Nieto and the impression and plan of care has been directed as dictated. Past Medical History Past Medical History: COPD, CVA/TIA, Diabetes Mellitus, GERD/Reflux, GI Bleed, Hyperlipidemia, Hypertension, Neurologic Disorder, Osteoarthritis (OA), Pneumonia, Prostate Disorder, Rheumatoid Arthritis (RA) Additional Past Medical History / Comment(s): Pt recently admitted to [facility] on 09/15/20 with abdominal pain/paraesophageal hernia or pancreatic pseudocyst-pt states he f/u at Dr. Kellogg's office and was told it is a pancreatic mass. Other hx: ETOH abuse, recurrent pancreatitis, chronic back pain, neuropathy bilateral feet and chronic urinary retention since back surgery, self caths prn, chronic L hydroureteronephrosis d/t reflux, MORPHINE PAIN PUMP L ABDOMIN, L shoulder pain/dislocation, hiatal hernia, PUD, upper and lower GI bleeds, BPH, pt states surgery to remove kidney stones. occasional weakness right side, parkinsons. Slurred speech. CVA about 5-6 years ago per patient. History of Any Multi-Drug Resistant Organisms: None Reported Past Surgical History: Back Surgery, Cholecystectomy, Orthopedic Surgery Additional Past Surgical History / Comment(s): EGDs, colonoscopy, low back titanium plate/rods/cages, spinal stimulator since removed, MORPHINE PAIN PUMP, bronchoscopy, surgery for kidney stones, bilateral knee arthroscopies, R 5th finger reattachment. bowel resection. feeding tube. Past Anesthesia/Blood Transfusion Reactions: No Reported Reaction Past Psychological History: Anxiety, Depression Additional Psychological History / Comment(s): PT LIVES AT HOME WITH in a 2 story home that has 3 porch steps/7 steps to 2nd floor.. 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 NO SERVICE.. occasionally uses either cane, walker or w/c also has shower chair and raised toilet seat. He does drive if he needs too. Smoking Status: Former smoker Past Alcohol Use History: Heavy Additional Past Alcohol Use History / Comment(s): started smoking at age 14 Smokes 2 packs per day; ETOH ABUSE-patient states he has past hx of heavy drinking but states he has not drank any alcohol in two months 01/22/24. last drink "Used to drink 3-30 packs" of beer daily. Past Drug Use History: None Reported Additional Drug Use History / Comment(s): Pt denies marijuana/street drug use. - Past Family History Father Family Medical History: Diabetes Mellitus Additional Family Medical History / Comment(s): Mother Family Medical History: Dementia, Hyperlipidemia, Hypertension Additional Family Medical History / Comment(s): Mother Medications and Allergies Home Medications Medication Instructions Recorded Confirmed Type Tamsulosin HCl [Flomax] 0.4 mg PO DAILY 07/16/23 09/29/24 History 0.9 % Sodium Chloride [Sodium 10 ml IV Q12H 01/22/24 09/29/24 History Chloride Flush] Acetaminophen Tab [Tylenol] 650 mg PO Q6H PRN 01/22/24 09/29/24 History Glucerna Shake 1 can PO HS@2100 01/22/24 09/29/24 History Lipase/Protease/Amylase [[place] Dr 1 cap PO TID-W/MEALS 01/22/24 09/29/24 History 24,000 Unit Capsule] Omeprazole [PriLOSEC] 20 mg PO BID@899,209901/22/24 09/29/24 History Ondansetron [Zofran] 4 mg PO TID PRN 01/22/24 09/29/24 History Patient Own Pump 0 bag 01/22/24 History amantadine HCL [Amantadine] 100 mg PO BID@899,209901/22/24 09/29/24 History HYDROcodone/APAP 5-325MG [[place] 1 tab PO Q6H PRN 5 Days tab 01/24/24 09/29/24 Rx 5-325] 0.9 % Sodium Chloride [Sodium 10 ml IV DIRECTED PRN 09/29/24 09/29/24 History Chloride Flush] Budesonide-Formot 160-4.5 Mcg 2 puff INHALATION RT-BID 09/29/24 09/29/24 History [Symbicort 160-4.5 Mcg Inhaler] Folic Acid 1 mg PO DAILY 09/29/24 09/29/24 History Ipratropium-Albuterol Nebulize 3 ml INHALATION RT-Q4H PRN 09/29/24 09/29/24 History [Duoneb 0.5 mg-3 mg/3 ml Soln] Ipratropium-Albuterol Nebulize 3 ml INHALATION RT-TID 09/29/24 09/29/24 History [Duoneb 0.5 mg-3 mg/3 ml Soln] Lactulose [Cephulac] 20 gm PO BID PRN 09/29/24 09/29/24 History Vancomycin 1,000 mg IV Q12H 09/29/24 09/29/24 History Allergies Allergy/AdvReac Type Severity Reaction Status Date / Time No Known Allergies Allergy Verified 09/29/24 11:17 Physical Exam Vitals: Vital Signs Temp Pulse Pulse Resp BP BP Pulse Ox 09/30/24 08:20 90 09/30/24 08:10 84 09/30/24 06:05 100 09/30/24 04:00 98.3 F 96 24 110/67 100 09/30/24 02:00 09/30/24 01:00 94 L 09/30/24 00:41 09/30/24 00:00 98.5 F 99 26 H 115/79 93 L 09/29/24 20:29 98.4 F 102 H 24 122/82 99 09/29/24 20:12 102 H 30 H 105/67 93 L 09/29/24 19:49 09/29/24 18:00 105 H 34 H 106/69 98 09/29/24 17:00 108 H 34 H 111/79 94 L 09/29/24 16:30 111 H 45 H 86/68 97 09/29/24 16:29 09/29/24 16:00 109 H 30 H 104/72 93 L 09/29/24 15:18 96 09/29/24 15:04 94 L 09/29/24 15:00 111 H 28 H 108/70 96 09/29/24 14:00 108 H 30 H 100/63 97 09/29/24 13:00 106 H 30 H 97/64 97 09/29/24 12:33 09/29/24 12:00 111 H 32 H 101/67 98 09/29/24 11:00 116 H 31 H 97/63 96 FiO2 09/30/24 08:20 09/30/24 08:10 60 09/30/24 06:05 80 09/30/24 04:00 09/30/24 02:00 80 09/30/24 01:00 50 09/30/24 00:41 40 09/30/24 00:00 09/29/24 20:29 09/29/24 20:12 09/29/24 19:49 40 09/29/24 18:00 09/29/24 17:00 09/29/24 16:30 09/29/24 16:29 40 09/29/24 16:00 09/29/24 15:18 09/29/24 15:04 09/29/24 15:00 09/29/24 14:00 09/29/24 13:00 09/29/24 12:33 40 09/29/24 12:00 09/29/24 11:00 Intake and Output 09/29/24 09/30/24 09/30/24 22:59 06:59 14:59 Intake Total 480 Output Total 500 250 Balance -500 230 Intake: Oral 480 Output: Urine 500 250 Straight 500 Other: Voiding Method Indwelling Catheter Weight 70.307 kg 71.2 kg Results CBC & Chem 7: 09/30/24 06:34 09/30/24 06:34 Labs: Abnormal Lab Results - Last 24 Hours (Table) 09/29/24 09/29/24 09/30/24 Range/Units 08:45 21:50 02:24 WBC (4.50-10.00) 10*3/uL RBC (4.40-5.60) 10*6/uL Hgb (13.0-17.0) g/dL Hct (39.6-50.0) % Immature Gran # (0.00-0.04) 10*3/uL Neutrophils # (1.80-7.70) 10*3/uL Monocytes # (0.20-1.00) 10*3/uL Eosinophils # (0.04-0.35) 10*3/uL ABG pO2 <30 L* (83-108) mmHg ABG Total CO2 25 H (19-24) mmol/L ABG O2 Saturation 36.6 L (94-97) % Hemoglobin 7.6 L (13.0-17.5) gm/dL Chloride (98-107) mmol/L Carbon Dioxide (22-30) mmol/L BUN (9-20) mg/dL Creatinine (0.66-1.25) mg/dL Glucose (74-99) mg/dL POC Glucose (mg/dL) 220 H (70-110) mg/dL Calcium (8.4-10.2) mg/dL Procalcitonin 6.62 H (0.02-0.50) ng/mL Urine Blood (Negative) Ur Leukocyte Esterase (Negative) Urine RBC (0-5) /hpf Urine WBC (0-5) /hpf Urine WBC Clumps (None) /hpf Urine Bacteria (None) /hpf Hyaline Casts (0-2) /lpf Urine Mucus (None) /hpf Random Vancomycin ug/mL 09/30/24 09/30/24 09/30/24 Range/Units 05:00 06:18 06:34 WBC (4.50-10.00) 10*3/uL RBC (4.40-5.60) 10*6/uL Hgb (13.0-17.0) g/dL Hct (39.6-50.0) % Immature Gran # (0.00-0.04) 10*3/uL Neutrophils # (1.80-7.70) 10*3/uL Monocytes # (0.20-1.00) 10*3/uL Eosinophils # (0.04-0.35) 10*3/uL ABG pO2 (83-108) mmHg ABG Total CO2 (19-24) mmol/L ABG O2 Saturation (94-97) % Hemoglobin (13.0-17.5) gm/dL Chloride 113 H (98-107) mmol/L Carbon Dioxide 20 L (22-30) mmol/L BUN 27 H (9-20) mg/dL Creatinine 3.16 H (0.66-1.25) mg/dL Glucose 147 H (74-99) mg/dL POC Glucose (mg/dL) 169 H (70-110) mg/dL Calcium 8.0 L (8.4-10.2) mg/dL Procalcitonin (0.02-0.50) ng/mL Urine Blood Small H (Negative) Ur Leukocyte Esterase Large H (Negative) Urine RBC 6 H (0-5) /hpf Urine WBC 175 H (0-5) /hpf Urine WBC Clumps Few H (None) /hpf Urine Bacteria Many H (None) /hpf Hyaline Casts 13 H (0-2) /lpf Urine Mucus Rare H (None) /hpf Random Vancomycin ug/mL 09/30/24 09/30/24 Range/Units 06:34 06:34 WBC 16.49 H (4.50-10.00) 10*3/uL RBC 2.51 L (4.40-5.60) 10*6/uL Hgb 7.5 L (13.0-17.0) g/dL Hct 23.1 L (39.6-50.0) % Immature Gran # 0.32 H (0.00-0.04) 10*3/uL Neutrophils # 14.10 H (1.80-7.70) 10*3/uL Monocytes # 1.06 H (0.20-1.00) 10*3/uL Eosinophils # 0.00 L (0.04-0.35) 10*3/uL ABG pO2 (83-108) mmHg ABG Total CO2 (19-24) mmol/L ABG O2 Saturation (94-97) % Hemoglobin (13.0-17.5) gm/dL Chloride (98-107) mmol/L Carbon Dioxide (22-30) mmol/L BUN (9-20) mg/dL Creatinine (0.66-1.25) mg/dL Glucose (74-99) mg/dL POC Glucose (mg/dL) (70-110) mg/dL Calcium (8.4-10.2) mg/dL Procalcitonin (0.02-0.50) ng/mL Urine Blood (Negative) Ur Leukocyte Esterase (Negative) Urine RBC (0-5) /hpf Urine WBC (0-5) /hpf Urine WBC Clumps (None) /hpf Urine Bacteria (None) /hpf Hyaline Casts (0-2) /lpf Urine Mucus (None) /hpf Random Vancomycin 68.6 H* ug/mL Assessment and Plan (1) Non-pressure chronic ulcer of other part of right foot with necrosis of bone Current Visit: Yes Status: Acute Code(s): L97.514 - NON-PRS CHRONIC ULCER OTH PRT RIGHT FOOT W NECROSIS OF BONE SNOMED Code(s): 86701838552218599 (2) Type 2 diabetes mellitus with foot ulcer Current Visit: Yes Status: Acute Code(s): E11.621 - TYPE 2 DIABETES MELLITUS WITH FOOT ULCER; L97.509 - NON-PRESSURE CHRONIC ULCER OTH PRT UNSP FOOT W UNSP SEVERITY SNOMED Code(s): 9507897600593
[2024-09-30 10:53] LABS: Glucose,Whole Blood 149 mg/dL (70-110)
--- NOTE | 2024-09-30 11:19 | P.NPCON ---
History of Present Illness - Reason for Consult acute renal failure - History of Present Illness Patient is a 54-year-old male with history of alcoholic liver disease and pancreatitis, type 2 diabetes, BPH who is [facility] with shortness of breath and mental status changes. History of recent right fifth toe osteomyelitis status post amputation. Patient was prior to admission. Maintained on vancomycin Patient is confused and agitated He has an indwelling Friedman catheter Patient was maintained on vancomycin and his random Vanco level was elevated at 68.6 today. Blood pressure was low with systolic in the 90s and 80s No diarrhea reported Serum creatinine 2.9 on admission and is 3.1 today. Previous creatinine 1.0 on 09/25/2024 Past Medical History Past Medical History: COPD, CVA/TIA, Diabetes Mellitus, GERD/Reflux, GI Bleed, Hyperlipidemia, Hypertension, Neurologic Disorder, Osteoarthritis (OA), Pneumonia, Prostate Disorder, Rheumatoid Arthritis (RA) Additional Past Medical History / Comment(s): Pt recently admitted to [facility] on 09/15/20 with abdominal pain/paraesophageal hernia or pancreatic pseudocyst-pt states he f/u at Dr. Kellogg's office and was told it is a pancreatic mass. Other hx: ETOH abuse, recurrent pancreatitis, chronic back pain, neuropathy bilateral feet and chronic urinary retention since back surgery, self caths prn, chronic L hydroureteronephrosis d/t reflux, MORPHINE PAIN PUMP L ABDOMIN, L shoulder pain/dislocation, hiatal hernia, PUD, upper and lower GI bleeds, BPH, pt states surgery to remove kidney stones. occasional weakness right side, parkinsons. Slurred speech. CVA about 5-6 years ago per patient. History of Any Multi-Drug Resistant Organisms: None Reported Past Surgical History: Back Surgery, Cholecystectomy, Orthopedic Surgery Additional Past Surgical History / Comment(s): EGDs, colonoscopy, low back titanium plate/rods/cages, spinal stimulator since removed, MORPHINE PAIN PUMP, bronchoscopy, surgery for kidney stones, bilateral knee arthroscopies, R 5th finger reattachment. bowel resection. feeding tube. Past Anesthesia/Blood Transfusion Reactions: No Reported Reaction Past Psychological History: Anxiety, Depression Additional Psychological History / Comment(s): PT LIVES AT HOME WITH in a 2 story home that has 3 porch steps/7 steps to 2nd floor.. 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 NO SERVICE.. occasionally uses either cane, walker or w/c also has shower chair and raised toilet seat. He does drive if he needs too. Smoking Status: Former smoker Past Alcohol Use History: Heavy Additional Past Alcohol Use History / Comment(s): started smoking at age 14 Smokes 2 packs per day; ETOH ABUSE-patient states he has past hx of heavy drinking but states he has not drank any alcohol in two months 01/22/24. last drink "Used to drink 3-30 packs" of beer daily. Past Drug Use History: None Reported Additional Drug Use History / Comment(s): Pt denies marijuana/street drug use. - Past Family History Father Family Medical History: Diabetes Mellitus Additional Family Medical History / Comment(s): Mother Family Medical History: Dementia, Hyperlipidemia, Hypertension Additional Family Medical History / Comment(s): Mother Medications and Allergies Home Medications Medication Instructions Recorded Confirmed Type Tamsulosin HCl [Flomax] 0.4 mg PO DAILY 07/16/23 09/29/24 History 0.9 % Sodium Chloride [Sodium 10 ml IV Q12H 01/22/24 09/29/24 History Chloride Flush] Acetaminophen Tab [Tylenol] 650 mg PO Q6H PRN 01/22/24 09/29/24 History Glucerna Shake 1 can PO HS@209901/22/24 09/29/24 History Lipase/Protease/Amylase [[place] 1 cap PO TID-W/MEALS 01/22/24 09/29/24 History 24,000 Unit Capsule] Omeprazole [PriLOSEC] 20 mg PO BID@899,209901/22/24 09/29/24 History Ondansetron [Zofran] 4 mg PO TID PRN 01/22/24 09/29/24 History Patient Own Pump 0 bag 01/22/24 History amantadine HCL [Amantadine] 100 mg PO BID@00,209901/22/24 09/29/24 History HYDROcodone/APAP 5-325MG [[place] 1 tab PO Q6H PRN 5 Days tab 01/24/24 09/29/24 Rx 5-325] 0.9 % Sodium Chloride [Sodium 10 ml IV DIRECTED PRN 09/29/24 09/29/24 History Chloride Flush] Budesonide-Formot 160-4.5 Mcg 2 puff INHALATION RT-BID 09/29/24 09/29/24 History [Symbicort 160-4.5 Mcg Inhaler] Folic Acid 1 mg PO DAILY 09/29/24 09/29/24 History Ipratropium-Albuterol Nebulize 3 ml INHALATION RT-Q4H PRN 09/29/24 09/29/24 History [Duoneb 0.5 mg-3 mg/3 ml Soln] Ipratropium-Albuterol Nebulize 3 ml INHALATION RT-TID 09/29/24 09/29/24 History [Duoneb 0.5 mg-3 mg/3 ml Soln] Lactulose [Cephulac] 20 gm PO BID PRN 09/29/24 09/29/24 History Vancomycin 1,000 mg IV Q12H 09/29/24 09/29/24 History Allergies Allergy/AdvReac Type Severity Reaction Status Date / Time No Known Allergies Allergy Verified 09/29/24 11:17 Physical Exam Vitals: Vital Signs Temp Pulse Pulse Resp BP BP Pulse Ox 09/30/24 11:01 33 H 125/74 91 L 09/30/24 08:20 90 09/30/24 08:10 84 09/30/24 06:05 100 09/30/24 04:00 98.3 F 96 24 110/67 100 09/30/24 02:00 09/30/24 01:00 94 L 09/30/24 00:41 09/30/24 00:00 98.5 F 99 26 H 115/79 93 L 09/29/24 20:29 98.4 F 102 H 24 122/82 99 09/29/24 20:12 102 H 30 H 105/67 93 L 09/29/24 19:49 09/29/24 18:00 105 H 34 H 106/69 98 09/29/24 17:00 108 H 34 H 111/79 94 L 09/29/24 16:30 111 H 45 H 86/68 97 09/29/24 16:29 09/29/24 16:00 109 H 30 H 104/72 93 L 09/29/24 15:18 96 09/29/24 15:04 94 L 09/29/24 15:00 111 H 28 H 108/70 96 09/29/24 14:00 108 H 30 H 100/63 97 09/29/24 13:00 106 H 30 H 97/64 97 09/29/24 12:33 09/29/24 12:00 111 H 32 H 101/67 98 FiO2 09/30/24 11:01 60 09/30/24 08:20 09/30/24 08:10 60 09/30/24 06:05 80 09/30/24 04:00 09/30/24 02:00 80 09/30/24 01:00 50 09/30/24 00:41 40 09/30/24 00:00 09/29/24 20:29 09/29/24 20:12 09/29/24 19:49 40 09/29/24 18:00 09/29/24 17:00 09/29/24 16:30 09/29/24 16:29 40 09/29/24 16:00 09/29/24 15:18 09/29/24 15:04 09/29/24 15:00 09/29/24 14:00 09/29/24 13:00 09/29/24 12:33 40 09/29/24 12:00 Intake and Output 09/29/24 09/30/24 09/30/24 22:59 06:59 14:59 Intake Total 480 Output Total 500 250 450 Balance -500 230 -450 Intake: Oral 480 Output: Urine 500 250 450 Straight 500 Other: Voiding Method Indwelling Catheter Weight 70.307 kg 71.2 kg Patient is awake, comfortable, no acute distress Confused Examination of the heart S1 and S2 Examination of the lungs bilateral breath sounds are heard, decreased breath sounds at the bases Abdomen is soft nontender Examination lower extremity shows no edema right foot wound near the fifth toe has minimal drainage Results - Lab Results Most recent lab results ABG pH 7.37 (7.35-7.45) 09/30/24 02:24 ABG pCO2 40 mmHg (35-45) 09/30/24 02:24 ABG pO2 <30 mmHg (83-108) L* 09/30/24 02:24 ABG HCO3 23 mmol/L (21-25) 09/30/24 02:24 ABG O2 Saturation 36.6 % (94-97) L 09/30/24 02:24 Calcium 8.0 mg/dL (8.4-10.2) L 09/30/24 06:34 Magnesium 1.9 mg/dL (1.6-2.3) 09/29/24 08:45 09/30/24 06:34 09/30/24 06:34 Assessment and Plan Assessment: 1. Acute kidney injury secondary to vancomycin toxicity with vancomycin level at 68.6 today, nonoliguric. Component of ischemic ATN also present from hypotension. UA shows WBCs 175, small blood no protein. Ultrasound of the kidneys did not show any obstructive uropathy. 2. Acute hypoxic respiratory failure secondary to CHF exacerbation, maintained on IV Lasix and improved. Possible underlying pneumonia for which patient is maintained on antibiotics 3. History of urinary retention with previous history of suprapubic catheter which was removed. Patient had 500 mL of urine on straight catheterization and indwelling Friedman catheter has been placed. 4. History of EtOH abuse 5. History of osteomyelitis of the right fifth toe status post amputation 6. Pyuria in the patient who self catheterizes Plan: Continue off of vancomycin Continue with current dose of Lasix Continue antibiotics for possible pneumonia Repeat chest x-ray Check iron profile Avoid any nephrotoxic agents Thank you for the consultation. We will continue to follow the patient with you during his hospitalization.
[2024-09-30 11:46] LABS: Glucose,Whole Blood 150 mg/dL (70-110)
--- NOTE | 2024-09-30 15:48 | P.GSCN ---
History of Present Illness History of present illness: 54-year-old gentleman patient was seen by me last week [facility] of wet gangrene of the right foot involving the fifth toe and there was infected callus which was excised patient was on IV antibiotic under care of infectious disease. Patient was sent to [facility] to follow-up in the wound clinic patient came with shortness of breath patient is on BiPAP Neck examination no appreciated bruit Chest few crackles at lung bases. Second sound present abdomen soft nontender Vascular femorals are 1+ bilateral no open wound right foot some progression tissue noted no evidence of any charges Plan is we will use Santyl cream which should be changed on daily basis patient is under care of infectious disease for IV antibiotic follow-up with you Past Medical History Past Medical History: COPD, CVA/TIA, Diabetes Mellitus, GERD/Reflux, GI Bleed, Hyperlipidemia, Hypertension, Neurologic Disorder, Osteoarthritis (OA), Pneumonia, Prostate Disorder, Rheumatoid Arthritis (RA) Additional Past Medical History / Comment(s): Pt recently admitted to [facility] on 09/15/20 with abdominal pain/paraesophageal hernia or pancreatic pseudocyst-pt states he f/u at Dr. Kellogg's office and was told it is a pancreatic mass. Other hx: ETOH abuse, recurrent pancreatitis, chronic back pain, neuropathy bilateral feet and chronic urinary retention since back surgery, self caths prn, chronic L hydroureteronephrosis d/t reflux, MORPHINE PAIN PUMP L ABDOMIN, L shoulder pain/dislocation, hiatal hernia, PUD, upper and lower GI bleeds, BPH, pt states surgery to remove kidney stones. occasional weakness right side, parkinsons. Slurred speech. CVA about 5-6 years ago per patient. History of Any Multi-Drug Resistant Organisms: None Reported Past Surgical History: Back Surgery, Cholecystectomy, Orthopedic Surgery Additional Past Surgical History / Comment(s): EGDs, colonoscopy, low back titanium plate/rods/cages, spinal stimulator since removed, MORPHINE PAIN PUMP, bronchoscopy, surgery for kidney stones, bilateral knee arthroscopies, R 5th finger reattachment. bowel resection. feeding tube. Past Anesthesia/Blood Transfusion Reactions: No Reported Reaction Past Psychological History: Anxiety, Depression Additional Psychological History / Comment(s): PT LIVES AT HOME WITH in a 2 story home that has 3 porch steps/7 steps to 2nd floor.. 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 NO SERVICE.. occasionally uses either cane, walker or w/c also has shower chair and raised toilet seat. He does drive if he needs too. Smoking Status: Former smoker Past Alcohol Use History: Heavy Additional Past Alcohol Use History / Comment(s): started smoking at age 14 Smokes 2 packs per day; ETOH ABUSE-patient states he has past hx of heavy drinking but states he has not drank any alcohol in two months 01/22/24. last drink "Used to drink 3-30 packs" of beer daily. Past Drug Use History: None Reported Additional Drug Use History / Comment(s): Pt denies marijuana/street drug use. - Past Family History Father Family Medical History: Diabetes Mellitus Additional Family Medical History / Comment(s): Mother Family Medical History: Dementia, Hyperlipidemia, Hypertension Additional Family Medical History / Comment(s): Mother Medications and Allergies Home Medications Medication Instructions Recorded Confirmed Type Tamsulosin HCl [Flomax] 0.4 mg PO DAILY 07/16/23 09/29/24 History 0.9 % Sodium Chloride [Sodium 10 ml IV Q12H 01/22/24 09/29/24 History Chloride Flush] Acetaminophen Tab [Tylenol] 650 mg PO Q6H PRN 01/22/24 09/29/24 History Glucerna Shake 1 can PO HS@209901/22/24 09/29/24 History Lipase/Protease/Amylase [Rebel [place] 1 cap PO TID-W/MEALS 01/22/24 09/29/24 History 24,000 Unit Capsule] Omeprazole [PriLOSEC] 20 mg PO BID@899,209901/22/24 09/29/24 History Ondansetron [Zofran] 4 mg PO TID PRN 01/22/24 09/29/24 History Patient Own Pump 0 bag 01/22/24 History amantadine HCL [Amantadine] 100 mg PO BID@00,209901/22/24 09/29/24 History HYDROcodone/APAP 5-325MG [[place] 1 tab PO Q6H PRN 5 Days tab 01/24/24 09/29/24 Rx 5-325] 0.9 % Sodium Chloride [Sodium 10 ml IV DIRECTED PRN 09/29/24 09/29/24 History Chloride Flush] Budesonide-Formot 160-4.5 Mcg 2 puff INHALATION RT-BID 09/29/24 09/29/24 History [Symbicort 160-4.5 Mcg Inhaler] Folic Acid 1 mg PO DAILY 09/29/24 09/29/24 History Ipratropium-Albuterol Nebulize 3 ml INHALATION RT-Q4H PRN 09/29/24 09/29/24 History [Duoneb 0.5 mg-3 mg/3 ml Soln] Ipratropium-Albuterol Nebulize 3 ml INHALATION RT-TID 09/29/24 09/29/24 History [Duoneb 0.5 mg-3 mg/3 ml Soln] Lactulose [Cephulac] 20 gm PO BID PRN 09/29/24 09/29/24 History Vancomycin 1,000 mg IV Q12H 09/29/24 09/29/24 History Allergies Allergy/AdvReac Type Severity Reaction Status Date / Time No Known Allergies Allergy Verified 09/29/24 11:17 Surgical - Exam Vital Signs Temp Pulse Resp BP Pulse Ox 97.9 F 122 H 43 H 107/72 97 09/29/24 08:26 09/29/24 08:26 09/29/24 08:26 09/29/24 08:26 09/29/24 08:26 Results - Labs 09/30/24 06:34 09/30/24 06:34 Abnormal Lab Results - Last 24 Hours (Table) 09/29/24 09/29/24 09/30/24 Range/Units 08:45 21:50 02:24 WBC (4.50-10.00) 10*3/uL RBC (4.40-5.60) 10*6/uL Hgb (13.0-17.0) g/dL Hct (39.6-50.0) % Immature Gran # (0.00-0.04) 10*3/uL Neutrophils # (1.80-7.70) 10*3/uL Monocytes # (0.20-1.00) 10*3/uL Eosinophils # (0.04-0.35) 10*3/uL ABG pO2 <30 L* (83-108) mmHg ABG Total CO2 25 H (19-24) mmol/L ABG O2 Saturation 36.6 L (94-97) % Hemoglobin 7.6 L (13.0-17.5) gm/dL Chloride (98-107) mmol/L Carbon Dioxide (22-30) mmol/L BUN (9-20) mg/dL Creatinine (0.66-1.25) mg/dL Glucose (74-99) mg/dL POC Glucose (mg/dL) 220 H (70-110) mg/dL Calcium (8.4-10.2) mg/dL Procalcitonin 6.62 H (0.02-0.50) ng/mL Urine Blood (Negative) Ur Leukocyte Esterase (Negative) Urine RBC (0-5) /hpf Urine WBC (0-5) /hpf Urine WBC Clumps (None) /hpf Urine Bacteria (None) /hpf Hyaline Casts (0-2) /lpf Urine Mucus (None) /hpf Random Vancomycin ug/mL 09/30/24 09/30/24 09/30/24 Range/Units 05:00 06:18 06:34 WBC (4.50-10.00) 10*3/uL RBC (4.40-5.60) 10*6/uL Hgb (13.0-17.0) g/dL Hct (39.6-50.0) % Immature Gran # (0.00-0.04) 10*3/uL Neutrophils # (1.80-7.70) 10*3/uL Monocytes # (0.20-1.00) 10*3/uL Eosinophils # (0.04-0.35) 10*3/uL ABG pO2 (83-108) mmHg ABG Total CO2 (19-24) mmol/L ABG O2 Saturation (94-97) % Hemoglobin (13.0-17.5) gm/dL Chloride 113 H (98-107) mmol/L Carbon Dioxide 20 L (22-30) mmol/L BUN 27 H (9-20) mg/dL Creatinine 3.16 H (0.66-1.25) mg/dL Glucose 147 H (74-99) mg/dL POC Glucose (mg/dL) 169 H (70-110) mg/dL Calcium 8.0 L (8.4-10.2) mg/dL Procalcitonin (0.02-0.50) ng/mL Urine Blood Small H (Negative) Ur Leukocyte Esterase Large H (Negative) Urine RBC 6 H (0-5) /hpf Urine WBC 175 H (0-5) /hpf Urine WBC Clumps Few H (None) /hpf Urine Bacteria Many H (None) /hpf Hyaline Casts 13 H (0-2) /lpf Urine Mucus Rare H (None) /hpf Random Vancomycin ug/mL 09/30/24 09/30/24 09/30/24 Range/Units 06:34 06:34 10:52 WBC 16.49 H (4.50-10.00) 10*3/uL RBC 2.51 L (4.40-5.60) 10*6/uL Hgb 7.5 L (13.0-17.0) g/dL Hct 23.1 L (39.6-50.0) % Immature Gran # 0.32 H (0.00-0.04) 10*3/uL Neutrophils # 14.10 H (1.80-7.70) 10*3/uL Monocytes # 1.06 H (0.20-1.00) 10*3/uL Eosinophils # 0.00 L (0.04-0.35) 10*3/uL ABG pO2 (83-108) mmHg ABG Total CO2 (19-24) mmol/L ABG O2 Saturation (94-97) % Hemoglobin (13.0-17.5) gm/dL Chloride (98-107) mmol/L Carbon Dioxide (22-30) mmol/L BUN (9-20) mg/dL Creatinine (0.66-1.25) mg/dL Glucose (74-99) mg/dL POC Glucose (mg/dL) 149 H (70-110) mg/dL Calcium (8.4-10.2) mg/dL Procalcitonin (0.02-0.50) ng/mL Urine Blood (Negative) Ur Leukocyte Esterase (Negative) Urine RBC (0-5) /hpf Urine WBC (0-5) /hpf Urine WBC Clumps (None) /hpf Urine Bacteria (None) /hpf Hyaline Casts (0-2) /lpf Urine Mucus (None) /hpf Random Vancomycin 68.6 H* ug/mL 09/30/24 Range/Units 11:44 WBC (4.50-10.00) 10*3/uL RBC (4.40-5.60) 10*6/uL Hgb (13.0-17.0) g/dL Hct (39.6-50.0) % Immature Gran # (0.00-0.04) 10*3/uL Neutrophils # (1.80-7.70) 10*3/uL Monocytes # (0.20-1.00) 10*3/uL Eosinophils # (0.04-0.35) 10*3/uL ABG pO2 (83-108) mmHg ABG Total CO2 (19-24) mmol/L ABG O2 Saturation (94-97) % Hemoglobin (13.0-17.5) gm/dL Chloride (98-107) mmol/L Carbon Dioxide (22-30) mmol/L BUN (9-20) mg/dL Creatinine (0.66-1.25) mg/dL Glucose (74-99) mg/dL POC Glucose (mg/dL) 150 H (70-110) mg/dL Calcium (8.4-10.2) mg/dL Procalcitonin (0.02-0.50) ng/mL Urine Blood (Negative) Ur Leukocyte Esterase (Negative) Urine RBC (0-5) /hpf Urine WBC (0-5) /hpf Urine WBC Clumps (None) /hpf Urine Bacteria (None) /hpf Hyaline Casts (0-2) /lpf Urine Mucus (None) /hpf Random Vancomycin ug/mL Diabetes panel 09/30/24 09/30/24 Range/Units 06:34 06:34 Sodium 138 (137-145) mmol/L Potassium 4.6 (3.5-5.1) mmol/L Chloride 113 H (98-107) mmol/L Carbon Dioxide 20 L (22-30) mmol/L BUN 27 H (9-20) mg/dL Creatinine 3.16 H (0.66-1.25) mg/dL Glucose 147 H (74-99) mg/dL Hemoglobin A1c 5.3 (<=6.0) % Calcium 8.0 L (8.4-10.2) mg/dL Calcium panel 09/30/24 Range/Units 06:34 Calcium 8.0 L (8.4-10.2) mg/dL Pituitary panel 09/30/24 Range/Units 06:34 Sodium 138 (137-145) mmol/L Potassium 4.6 (3.5-5.1) mmol/L Chloride 113 H (98-107) mmol/L Carbon Dioxide 20 L (22-30) mmol/L BUN 27 H (9-20) mg/dL Creatinine 3.16 H (0.66-1.25) mg/dL Glucose 147 H (74-99) mg/dL Calcium 8.0 L (8.4-10.2) mg/dL Adrenal panel 09/30/24 Range/Units 06:34 Sodium 138 (137-145) mmol/L Potassium 4.6 (3.5-5.1) mmol/L Chloride 113 H (98-107) mmol/L Carbon Dioxide 20 L (22-30) mmol/L BUN 27 H (9-20) mg/dL Creatinine 3.16 H (0.66-1.25) mg/dL Glucose 147 H (74-99) mg/dL Calcium 8.0 L (8.4-10.2) mg/dL
[2024-09-30] MEDS: COLLAGENASE 250 UNIT/GM OINTMENT 30 GM TUBE TOPICAL SCH (15:59)
[2024-09-30 16:24] LABS: Glucose,Whole Blood 152 mg/dL (70-110)
[2024-09-30 20:11] LABS: Glucose,Whole Blood 146 mg/dL (70-110)
--- NOTE | 2024-09-30 22:09 | P.CONS ---
History of Present Illness - Reason for Consult Consult date: 09/30/24 Pneumonia, recent osteomyelitis ANUM on Vanco Requesting physician: Jamel Diallo - Chief Complaint Shortness of breath x few days - History of Present Illness Patient is a 54-year-old male with a past medical history significant for COPD diabetes mellitus hypertension hyperlipidemia rheumatoid arthritis in this patient who is status post right fifth toe amputation for a right gangrene done at [facility] patient did have a PICC line and was sent to the assisted on IV vancomycin patient has been brought to [facility] ER yesterday morning after the patient did have increasing shortness of breath and the patient was noticed to becoming hypoxic with O2 sats in 60s patient denies high-grade fever or any chills and no fever have recorded here has been complaining of shortness of breath currently getting worse over the last few days denies any chest pain or significant cough no nausea no vomiting no abdominal pain or diarrhea on presentation to the hospital the patient was afebrile no fever have been called subsequently patient was tachycardic mildly hypertensive and hypoxic currently on a BiPAP patient did have a white count of 16.49 with a left shift noticed to have a significant worsening of his kidney function with a BUN of 27 creatinine is 3.16 protein is a 6.6 to and vancomycin random was 68.6 patient did have a chest x-ray multifocal airspace opacity concerning for pneumonia patient will be started on Rocephin and Zithromax infectious disease was consulted for further management of antibiotic therapy Review of Systems Positive point and negatives has been mentioned in the HPI, complete review of systems was performed and all other systems are negative Past Medical History Past Medical History: COPD, CVA/TIA, Diabetes Mellitus, GERD/Reflux, GI Bleed, Hyperlipidemia, Hypertension, Neurologic Disorder, Osteoarthritis (OA), Pneumonia, Prostate Disorder, Rheumatoid Arthritis (RA) Additional Past Medical History / Comment(s): Pt recently admitted to [facility] on 09/15/20 with abdominal pain/paraesophageal hernia or pancreatic pseudocyst-pt states he f/u at Dr. Kellogg's office and was told it is a pancreatic mass. Other hx: ETOH abuse, recurrent pancreatitis, chronic back pain, neuropathy bilateral feet and chronic urinary retention since back surgery, self caths prn, chronic L hydroureteronephrosis d/t reflux, MORPHINE PAIN PUMP L ABDOMIN, L shoulder pain/dislocation, hiatal hernia, PUD, upper and lower GI bleeds, BPH, pt states surgery to remove kidney stones. occasional weakness right side, parkinsons. Slurred speech. CVA about 5-6 years ago per patient. History of Any Multi-Drug Resistant Organisms: None Reported Past Surgical History: Back Surgery, Cholecystectomy, Orthopedic Surgery Additional Past Surgical History / Comment(s): EGDs, colonoscopy, low back titanium plate/rods/cages, spinal stimulator since removed, MORPHINE PAIN PUMP, bronchoscopy, surgery for kidney stones, bilateral knee arthroscopies, R 5th finger reattachment. bowel resection. feeding tube. Past Anesthesia/Blood Transfusion Reactions: No Reported Reaction Past Psychological History: Anxiety, Depression Additional Psychological History / Comment(s): PT LIVES AT HOME WITH in a 2 story home that has 3 porch steps/7 steps to 2nd floor.. 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 NO SERVICE.. occasionally uses either cane, walker or w/c also has shower chair and raised toilet seat. He does drive if he needs too. Smoking Status: Former smoker Past Alcohol Use History: Heavy Additional Past Alcohol Use History / Comment(s): started smoking at age 14 Smokes 2 packs per day; ETOH ABUSE-patient states he has past hx of heavy drinking but states he has not drank any alcohol in two months 01/22/24. last drink "Used to drink 3-30 packs" of beer daily. Past Drug Use History: None Reported Additional Drug Use History / Comment(s): Pt denies marijuana/street drug use. - Past Family History Father Family Medical History: Diabetes Mellitus Additional Family Medical History / Comment(s): Mother Family Medical History: Dementia, Hyperlipidemia, Hypertension Additional Family Medical History / Comment(s): Mother Medications and Allergies Home Medications Medication Instructions Recorded Confirmed Type Tamsulosin HCl [Flomax] 0.4 mg PO DAILY 07/16/23 09/29/24 History 0.9 % Sodium Chloride [Sodium 10 ml IV Q12H 01/22/24 09/29/24 History Chloride Flush] Acetaminophen Tab [Tylenol] 650 mg PO Q6H PRN 01/22/24 09/29/24 History Glucerna Shake 1 can PO HS@2100 01/22/24 09/29/24 History Lipase/Protease/Amylase [Rebel [place] cap PO TID-W/MEALS 01/22/24 09/29/24 History 24,000 Unit Capsule] Omeprazole [PriLOSEC] 20 mg PO BID@0900,209901/22/24 09/29/24 History Ondansetron [Zofran] 4 mg PO TID PRN 01/22/24 09/29/24 History Patient Own Pump 0 bag 01/22/24 History amantadine HCL [Amantadine] 100 mg PO BID@0900,209901/22/24 09/29/24 History HYDROcodone/APAP 5-325MG [[place] 1 tab PO Q6H PRN 5 Days tab 01/24/24 09/29/24 Rx 5-325] 0.9 % Sodium Chloride [Sodium 10 ml IV DIRECTED PRN 09/29/24 09/29/24 History Chloride Flush] Budesonide-Formot 160-4.5 Mcg 2 puff INHALATION RT-BID 09/29/24 09/29/24 History [Symbicort 160-4.5 Mcg Inhaler] Folic Acid 1 mg PO DAILY 09/29/24 09/29/24 History Ipratropium-Albuterol Nebulize 3 ml INHALATION RT-Q4H PRN 09/29/24 09/29/24 History [Duoneb 0.5 mg-3 mg/3 ml Soln] Ipratropium-Albuterol Nebulize 3 ml INHALATION RT-TID 09/29/24 09/29/24 History [Duoneb 0.5 mg-3 mg/3 ml Soln] Lactulose [Cephulac] 20 gm PO BID PRN 09/29/24 09/29/24 History Vancomycin 1,000 mg IV Q12H 09/29/24 09/29/24 History Allergies Allergy/AdvReac Type Severity Reaction Status Date / Time No Known Allergies Allergy Verified 09/29/24 11:17 Physical Exam Vitals: Vital Signs Temp Pulse Pulse Resp BP BP Pulse Ox 09/30/24 11:01 33 H 125/74 91 L 09/30/24 08:20 90 09/30/24 08:10 84 09/30/24 06:05 100 09/30/24 04:00 98.3 F 96 24 110/67 100 09/30/24 02:00 09/30/24 01:00 94 L 09/30/24 00:41 09/30/24 00:00 98.5 F 99 26 H 115/79 93 L 09/29/24 20:29 98.4 F 102 H 24 122/82 99 09/29/24 20:12 102 H 30 H 105/67 93 L 09/29/24 19:49 09/29/24 18:00 105 H 34 H 106/69 98 09/29/24 17:00 108 H 34 H 111/79 94 L 09/29/24 16:30 111 H 45 H 86/68 97 09/29/24 16:29 09/29/24 16:00 109 H 30 H 104/72 93 L 09/29/24 15:18 96 09/29/24 15:04 94 L 09/29/24 15:00 111 H 28 H 108/70 96 09/29/24 14:00 108 H 30 H 100/63 97 09/29/24 13:00 106 H 30 H 97/64 97 09/29/24 12:33 09/29/24 12:00 111 H 32 H 101/67 98 FiO2 09/30/24 11:01 60 09/30/24 08:20 09/30/24 08:10 60 09/30/24 06:05 80 09/30/24 04:00 09/30/24 02:00 80 09/30/24 01:00 50 09/30/24 00:41 40 09/30/24 00:00 09/29/24 20:29 09/29/24 20:12 09/29/24 19:49 40 09/29/24 18:00 09/29/24 17:00 09/29/24 16:30 09/29/24 16:29 40 09/29/24 16:00 09/29/24 15:18 09/29/24 15:04 09/29/24 15:00 09/29/24 14:00 09/29/24 13:00 09/29/24 12:33 40 09/29/24 12:00 Intake and Output 09/29/24 09/30/24 09/30/24 22:59 06:59 14:59 Intake Total 480 Output Total 500 250 450 Balance -500 230 -450 Intake: Oral 480 Output: Urine 500 250 450 Straight 500 Other: Voiding Method Indwelling Catheter Weight 70.307 kg 71.2 kg GENERAL DESCRIPTION: Middle-age male lying in bed, no distress. No tachypnea or accessory muscle of respiration use. HEENT: Shows Pallor , no scleral icterus. Oral mucous membrane is dry. NECK: Trachea central, no thyromegaly. LUNGS: Unlabored breathing. Coarse breath sounds bilaterally HEART: S1, S2, regular rate and rhythm. No loud murmur ABDOMEN: Soft, no tenderness , guarding or rigidity, no organomegaly EXTREMITIES: Right fifth toe amputation site wound deep with no surrounding redness or foul-smelling drainage SKIN: No rash, no masses palpable. NEUROLOGICAL: The patient is awake, mood and affect normal. Results CBC & Chem 7: 09/30/24 06:34 09/30/24 06:34 Labs: Abnormal Lab Results - Last 24 Hours (Table) 09/29/24 09/29/24 09/30/24 Range/Units 08:45 21:50 02:24 WBC (4.50-10.00) 10*3/uL RBC (4.40-5.60) 10*6/uL Hgb (13.0-17.0) g/dL Hct (39.6-50.0) % Immature Gran # (0.00-0.04) 10*3/uL Neutrophils # (1.80-7.70) 10*3/uL Monocytes # (0.20-1.00) 10*3/uL Eosinophils # (0.04-0.35) 10*3/uL ABG pO2 <30 L* (83-108) mmHg ABG Total CO2 25 H (19-24) mmol/L ABG O2 Saturation 36.6 L (94-97) % Hemoglobin 7.6 L (13.0-17.5) gm/dL Chloride (98-107) mmol/L Carbon Dioxide (22-30) mmol/L BUN (9-20) mg/dL Creatinine (0.66-1.25) mg/dL Glucose (74-99) mg/dL POC Glucose (mg/dL) 220 H (70-110) mg/dL Calcium (8.4-10.2) mg/dL Procalcitonin 6.62 H (0.02-0.50) ng/mL Urine Blood (Negative) Ur Leukocyte Esterase (Negative) Urine RBC (0-5) /hpf Urine WBC (0-5) /hpf Urine WBC Clumps (None) /hpf Urine Bacteria (None) /hpf Hyaline Casts (0-2) /lpf Urine Mucus (None) /hpf Random Vancomycin ug/mL 09/30/24 09/30/24 09/30/24 Range/Units 05:00 06:18 06:34 WBC (4.50-10.00) 10*3/uL RBC (4.40-5.60) 10*6/uL Hgb (13.0-17.0) g/dL Hct (39.6-50.0) % Immature Gran # (0.00-0.04) 10*3/uL Neutrophils # (1.80-7.70) 10*3/uL Monocytes # (0.20-1.00) 10*3/uL Eosinophils # (0.04-0.35) 10*3/uL ABG pO2 (83-108) mmHg ABG Total CO2 (19-24) mmol/L ABG O2 Saturation (94-97) % Hemoglobin (13.0-17.5) gm/dL Chloride 113 H (98-107) mmol/L Carbon Dioxide 20 L (22-30) mmol/L BUN 27 H (9-20) mg/dL Creatinine 3.16 H (0.66-1.25) mg/dL Glucose 147 H (74-99) mg/dL POC Glucose (mg/dL) 169 H (70-110) mg/dL Calcium 8.0 L (8.4-10.2) mg/dL Procalcitonin (0.02-0.50) ng/mL Urine Blood Small H (Negative) Ur Leukocyte Esterase Large H (Negative) Urine RBC 6 H (0-5) /hpf Urine WBC 175 H (0-5) /hpf Urine WBC Clumps Few H (None) /hpf Urine Bacteria Many H (None) /hpf Hyaline Casts 13 H (0-2) /lpf Urine Mucus Rare H (None) /hpf Random Vancomycin ug/mL 09/30/24 09/30/24 09/30/24 Range/Units 06:34 06:34 10:52 WBC 16.49 H (4.50-10.00) 10*3/uL RBC 2.51 L (4.40-5.60) 10*6/uL Hgb 7.5 L (13.0-17.0) g/dL Hct 23.1 L (39.6-50.0) % Immature Gran # 0.32 H (0.00-0.04) 10*3/uL Neutrophils # 14.10 H (1.80-7.70) 10*3/uL Monocytes # 1.06 H (0.20-1.00) 10*3/uL Eosinophils # 0.00 L (0.04-0.35) 10*3/uL ABG pO2 (83-108) mmHg ABG Total CO2 (19-24) mmol/L ABG O2 Saturation (94-97) % Hemoglobin (13.0-17.5) gm/dL Chloride (98-107) mmol/L Carbon Dioxide (22-30) mmol/L BUN (9-20) mg/dL Creatinine (0.66-1.25) mg/dL Glucose (74-99) mg/dL POC Glucose (mg/dL) 149 H (70-110) mg/dL Calcium (8.4-10.2) mg/dL Procalcitonin (0.02-0.50) ng/mL Urine Blood (Negative) Ur Leukocyte Esterase (Negative) Urine RBC (0-5) /hpf Urine WBC (0-5) /hpf Urine WBC Clumps (None) /hpf Urine Bacteria (None) /hpf Hyaline Casts (0-2) /lpf Urine Mucus (None) /hpf Random Vancomycin 68.6 H* ug/mL Assessment and Plan (1) Foot osteomyelitis, right Current Visit: Yes Status: Acute Code(s): M86.9 - OSTEOMYELITIS, UNSPECIFIED SNOMED Code(s): 8450486159463377 (2) Pneumonia Current Visit: Yes Status: Acute Code(s): J18.9 - PNEUMONIA, UNSPECIFIED ORGANISM SNOMED Code(s): 462006004 (3) Type 2 diabetes mellitus with foot ulcer Current Visit: Yes Status: Acute Code(s): E11.621 - TYPE 2 DIABETES MELLITUS WITH FOOT ULCER; L97.509 - NON-PRESSURE CHRONIC ULCER OTH PRT UNSP FOOT W UNSP SEVERITY SNOMED Code(s): 8862522649581 Plan: 1patient with right fifth toe wet gangrene and diabetic foot infection status post right fifth toe amputation at the outside facility with the patient was getting vancomycin outpatient setting up with the acute kidney injury on vanco mycin significantly with level at this point we will hold on the vancomycin try to get the culture data from the [facility] to determine further antibiotic therapy 2-patient with shortness of breath and hypoxemia which is likely multifactorial concern for possible component of pneumonia he did have elevated procalcitonin try to obtain a sputum continue with Rocephin and Zithromax 3local wound care per the surgery which has been consulted We will follow on clinical condition and cultures to further adjust medication if needed Thank you for this consultation we will follow the patient along with you Dictation was produced using [employer] dictation software. please excuse any gramm atical, word or spelling errors. Time with Patient: Greater than 30
[2024-10-01 06:14] LABS: Glucose,Whole Blood 105 mg/dL (70-110)
[2024-10-01 07:20] LABS: African American GFR (CKD) 24 (>60 ml/min/1.73 sqM); Non-African American GFR(CKD) 21 (>60 ml/min/1.73 sqM)
--- NOTE | 2024-10-01 08:16 | CA ---
Transthoracic Echo Report Name: Nestor Pro Age: 54 Gender: M : 1970 Exam Date: 09/30/2024 09:46 Exam Location: [facility] Ht (in): 66 Wt (lb): 155 Ordering Physician: Eyad Nj Attending/Referring Phys: [employer] Milka Cobian, TYLER Procedure CPT: Indications: Pulmonary edema; evaluate LV function Cardiac Hx: COPD, CVA/TIA, HTN, Diabetes Technical Quality: Poor Contrast 1: Total Dose (mL): Contrast 2: Total Dose (mL): MEASUREMENTS (Male / Female) Normal Values 2D ECHO LV Diastolic Diameter PLAX 4.6 cm 4.2 - 5.9 / 3.9 - 5.3 cm LV Systolic Diameter PLAX 2.5 cm IVS Diastolic Thickness 0.7 cm 0.6 - 1.0 / 0.6 - 0.9 cm LVPW Diastolic Thickness 0.7 cm 0.6 - 1.0 / 0.6 - 0.9 cm LV Relative Wall Thickness 0.3 RV Internal Dim ED PLAX 2.2 cm LVOT Diameter 1.8 cm LA Systolic Diameter LX 3.5 cm 3.0 - 4.0 / 2.7 - 3.8 cm LV Diastolic Volume MOD 4C 116.1 cm??? LV Systolic Volume MOD 4C 37.1 cm??? LV Ejection Fraction MOD 4C 68.0 % LV Cardiac Index MOD 4C 4208.1 cm???/min???m??? LV Diastolic Length 4C 9.0 cm LV Systolic Length 4C 6.8 cm DOPPLER MV Area PHT 4.5 cm??? Mitral E Point Velocity 110.9 cm/s Mitral A Point Velocity 116.8 cm/s Mitral E to A Ratio 0.9 MV Deceleration Time 169.1 ms TR Peak Velocity 324.5 cm/s TR Peak Gradient 42.1 mmHg FINDINGS Left Ventricle Left ventricular ejection fraction is estimated at 55-60 %. Normal left ventricular systolic function with no obvious regional wall motion abnormalities. Left ventricular cavity size normal. Left ventricular wall thickness normal. Right Ventricle Normal right ventricular size and function.unable to estimate the right ventricular systolic pressure. Right Atrium Normal right atrial size. Left Atrium Normal left atrial size. Mitral Valve Structurally normal mitral valve. No mitral stenosis. No mitral regurgitation. Aortic Valve Trileaflet aortic valve. No aortic stenosis. No aortic regurgitation. Tricuspid Valve Structurally normal tricuspid valve. No tricuspid stenosis. Mild tricuspid regurgitation. Pulmonic Valve Structurally normal pulmonic valve. No pulmonic stenosis. No pulmonic regurgitation. Pericardium No pericardial effusion. Aorta Aortic annulus normal. CONCLUSIONS Normal LV size and systolic function. No significant abnormality on the Doppler exam. No pericardial effusion. Right-sided pressures were not well quantified Previewed by: Dr. Little Almodovar MD (Electronically Signed) Final Date: 01 Oct 2024 08:16
[2024-10-01] MEDS: HYDROcodone/APAP 5-325MG 1 EACH TAB PO PRN (09:16)
--- NOTE | 2024-10-01 11:00 | XR ---
EXAMINATION TYPE: XR chest 1V DATE OF EXAM: 10/01/2024 10:45 AM COMPARISON: Chest radiographs from by [id number] CLINICAL INDICATION: Male, 54 years old with history of chf; [facility] TECHNIQUE: XR chest 1V Frontal view of the chest. FINDINGS: Lungs/Pleura: There is no evidence of pleural effusion, focal consolidation, or pneumothorax. Pulmonary vascularity: Worsening Pulmonary vascular congestion. Heart/mediastinum: Cardiomediastinal silhouette is unremarkable. Musculoskeletal: No acute osseous pathology. Stimulator leads project over the spine. Other findings: None Lines/Tubes: Right-sided PICC line with distal tip at the cavoatrial junction. IMPRESSION: Slightly worsened Pulmonary edema [facility], , 10/01/2024 10:58 AM
[2024-10-01] MEDS: ACETAMINOPHEN TAB 325 MG TAB PO PRN (11:13)
--- NOTE | 2024-10-01 11:15 | P.PN ---
Subjective Patient is seen for follow-up for acute kidney injury secondary to vancomycin toxicity and hypotension. Good urine output noted at 1900 mL for 24 hours Patient is currently being diuresed for volume overload. He remains on high flow oxygen at 50 Serum creatinine staying at about 3.1 mg/dL Objective - Vital Signs Vital signs: Vital Signs Temp 99.3 F 10/01/24 09:31 Pulse 96 10/01/24 10:09 Resp 22 10/01/24 09:35 BP 113/72 10/01/24 09:31 Pulse Ox 100 10/01/24 09:31 FiO2 80 10/01/24 09:52 Intake & Output 09/30/24 10/01/24 10/01/24 18:59 06:59 18:59 Intake Total 350 20 Output Total 850 1050 Balance -850 -700 20 Weight 71.2 kg 71.5 kg Intake: IV 350 20 Azithromycin 500 mg In 250 Sodium Chloride 0.9% 250 ml @ 250 mls/hr IVPB DAILY JANE Rx#:[id number] Invasive Line 1 10 Invasive Line 2 10 cefTRIAXone 1 gm In 100 Sodium Chloride 0.9% 50 ml @ 100 mls/hr IVPB Q24HR JANE Rx#:[id number] Output: Urine 850 1050 Straight 650 Other: Voiding Method Indwelling Catheter Indwelling Catheter Indwelling Catheter - Exam Patient is awake, comfortable, no acute distress Confused Examination of the heart S1 and S2 Examination of the lungs bilateral breath sounds are heard, decreased breath s ounds at the bases Abdomen is soft nontender Examination lower extremity shows no edema, right foot is wrapped. - Labs CBC & Chem 7: 09/30/24 06:34 10/01/24 05:56 Labs: Abnormal Lab Results - Last 24 Hours (Table) 09/30/24 09/30/24 09/30/24 Range/Units 11:44 16:23 20:06 Creatinine (0.66-1.25) mg/dL POC Glucose (mg/dL) 150 H 152 H 146 H (70-110) mg/dL 10/01/24 Range/Units 05:56 Creatinine 3.13 H (0.66-1.25) mg/dL POC Glucose (mg/dL) (70-110) mg/dL Microbiology - Last 24 Hours (Table) 09/29/24 10:37 Blood Culture - Preliminary Blood Assessment and Plan Assessment: 1. Acute kidney injury secondary to vancomycin toxicity with vancomycin level at 68.6 , nonoliguric. Component of ischemic ATN also present from hypotension. UA shows WBCs 175, small blood no protein. Ultrasound of the kidneys did not show any obstructive uropathy. 2. Acute hypoxic respiratory failure secondary to CHF exacerbation, maintained on IV Lasix and improved. Possible underlying pneumonia for which patient is maintained on antibiotics 3. History of urinary retention with previous history of suprapubic catheter which was removed. Patient had 500 mL of urine on straight catheterization and indwelling Friedman catheter has been placed. 4. History of EtOH abuse 5. History of osteomyelitis of the right fifth toe status post amputation 6. Pyuria in the patient who self catheterizes Plan: Continue off of vancomycin Continue with current dose of Lasix Continue antibiotics for possible pneumonia Repeat chest x-ray Repeat labs in a.m. Continue with Friedman catheter
[2024-10-01 11:32] LABS: Glucose,Whole Blood 137 mg/dL (70-110)
--- NOTE | 2024-10-01 15:10 | P.PN ---
Subjective Progress Note Date: 10/01/24 Patient is a 54-year-old male with complex past medical history including COPD, nicotine dependence, CVA/TIA, alcohol abuse, recurrent pancreatitis with pancreatic pseudocyst, urinary retention with previous suprapubic catheter, chronic pain with morphine pump. He is currently in some respiratory distress on BiPAP, unable to answer questioning. Reportedly, sent in from [facility] on the [facility]. Recently, underwent right fifth toe amputation for osteomyelitis, and was receiving IV antibiotics. Noted to be hypoxic at the outside facility, with an SpO2 of 66%. He was placed on BiPAP on arrival to the emergency department. Workup in the emergency department including a chest x-ray showing diffuse inf iltrates bilaterally concerning for pulmonary edema versus multifocal pneumonia. CBC: WBC count 15.2, hemoglobin 8.4, platelets 374. CMP: Sodium 139, potassium 4.2, chloride 113, serum bicarb 20, BUN 22, creatinine 2.95, glucose 123. Appears patient is sustained acute kidney injury. He did have a indwelling urinary catheter placed. Ultrasound of kidneys and bladder showing atrophic left kidney with dilated collecting system, chronic. In place mullins catheter with debris. NT proBNP was elevated at 10,100. Procalcitonin 6.62. Placed on empiric antibiotics in the ED in the form of azithromycin and Rocephin. Also, started on Lasix 40 mg twice daily. Most recent available echocardiogram from 2020 estimating preserved left ventricular ejection fraction of 55 to 60% with grade 1 diastolic dysfunction. Patient currently being evaluated on the cardiac stepdown unit. Appears to be anxious in some respiratory distress. He is on BiPAP with settings 12/5 and FiO2 40%. Previous ABGs done on the settings include a PaO2 of 59, pCO2 of 32, pH of 7.41. He is pulling at the mask, we are going to try and transition him over to Airvo. On 10/01/2024, the patient is being seen for a follow-up. The patient remains on Airvo and the patient is currently on 50 L with an FiO2 of 80%. Repeat chest x- ray from today still showing evidence of interstitial edema with pulm vascular congestion, probably slightly worse compared to yesterday. Nevertheless, his respiratory status is stable and the patient denies having any worsening shortness of breath. The patient is being treated for underlying urine tract infection. Urine cultures and blood culture still pending. Meanwhile, he still has a Mullins catheter in place. Repeat creatinine from today is at 3.13, essentially unchanged compared to yesterday. The white cell count remains stable at 16.5 with a hemoglobin 7.5. The patient remains on IV Rocephin. He is also receiving Lasix 40 mg IV every 8 hours. He is producing adequate amount of urine output and the patient has been negative fluid balance of 1.5 L over the past 24 hours. No other new complaints otherwise for now. [employer] Project [employer] on the case. The patient has been taken off vancomycin. Follow-up chest x-ray in AM. Echocardiogram was also completed and the patient was found to have a preserved LV function with an EF of around 55 to 60% with normal LV function, normal RV function without any significant valvular abnormalities. Objective - Vital Signs Vital signs: Vital Signs Temp 99.3 F 10/01/24 09:31 Pulse 96 10/01/24 10:09 Resp 22 10/01/24 09:35 BP 113/72 10/01/24 09:31 Pulse Ox 100 10/01/24 09:31 FiO2 80 10/01/24 09:52 Intake & Output 09/30/24 10/01/24 10/01/24 18:59 06:59 18:59 Intake Total 350 20 Output Total 850 1050 Balance -850 -700 20 Weight 71.2 kg 71.5 kg Intake: IV 350 20 Azithromycin 500 mg In 250 Sodium Chloride 0.9% 250 ml @ 250 mls/hr IVPB DAILY JANE Rx#:[id number] Invasive Line 1 10 Invasive Line 2 10 cefTRIAXone 1 gm In 100 Sodium Chloride 0.9% 50 ml @ 100 mls/hr IVPB Q24HR JANE Rx#:[id number] Output: Urine 850 1050 Straight 650 Other: Voiding Method Indwelling Catheter Indwelling Catheter Indwelling Catheter - Exam GENERAL EXAM: Anxious, 54-year-old male on BiPAP, tachypneic and pulling at BiPAP mask, he does follow commands appropriately. HEAD: Normocephalic and atraumatic EYES: Normal reaction of pupils, equal size. NOSE: Clear with pink turbinates. THROAT: No erythema or exudates. NECK: No masses, no JVD. CHEST: No chest wall deformity. LUNGS: Equal air entry with diffuse coarse rhonchi heard bilaterally and throughout. On BiPAP with settings 12/5 and FiO2 40%. SpO2 recorded at 93%. Tachypneic breathing in the mid 30s and tidal volumes around 600 to 800 mL. Unable to hold continued conversation. CVS: S1 and S2 normal with no audible murmur, regular rhythm. No extra heart sounds ABDOMEN: No hepatosplenomegaly, active bowel sounds, no guarding or rigidity. SPINE: No scoliosis or deformity SKIN: No rashes CENTRAL NERVOUS SYSTEM: No focal deficits, tone is normal in all 4 extremities. EXTREMITIES: There is no peripheral edema, clubbing, or cyanosis. Peripheral pulses are intact. Previous right fifth great toe amputation. Adherent slough, no significant undermining or tunneling. - Labs CBC & Chem 7: 09/30/24 06:34 10/01/24 05:56 Labs: Abnormal Lab Results - Last 24 Hours (Table) 09/30/24 09/30/24 09/30/24 Range/Units 11:44 16:23 20:06 Creatinine (0.66-1.25) mg/dL POC Glucose (mg/dL) 150 H 152 H 146 H (70-110) mg/dL 10/01/24 Range/Units 05:56 Creatinine 3.13 H (0.66-1.25) mg/dL POC Glucose (mg/dL) (70-110) mg/dL Microbiology - Last 24 Hours (Table) 09/29/24 10:37 Blood Culture - Preliminary Blood Assessment and Plan Assessment: Acute hypoxemic respiratory failure, initially placed on BiPAP, chest x-ray showing diffuse bilateral infiltrates concerning for pulmonary edema versus multifocal pneumonia. The patient remains on Airvo at 50 L and FiO2 of 80%. Chest x-ray is showing persistent interstitial edema. Dyspnea secondary to above, currently stable Chronic obstructive pulmonary disease Acute kidney injury, ultrasound of kidneys and bladder showing atrophic left kidney with dilated collecting system, chronic. Mullins catheter was in place with debris. Chronic urinary retention with previous suprapubic catheter. This was reversed and patient intermittently straight caths. Ruled underlying urine tract infection the patient remains on IV Rocephin History osteomyelitis and right fifth toe amputation Acute leukocytosis Chronic anemia, hemoglobin 8.4 g/dL, awaiting follow-up labs from today History of chronic pancreatitis with pancreatic pseudocyst History of alcohol abuse History of CVA/TIA Chronic pain with morphine pump Tobacco dependence Plan: Keep the patient on Airvo and appears more comfortable currently 60 L and 80%. Continue IV Rocephin Continue IV Lasix 40 mg every 8 hours Repeat chest x-ray in the morning Vancomycin is discontinued Infectious disease consulted Nephrology is consulted Consult wound care Echo was noted and the patient has a preserved LV function Prognosis is guarded secondary to above-mentioned comorbidities. Time with Patient: Greater than 30
[2024-10-01] MEDS: FUROSEMIDE 10 MG/ML 4 ML VIAL IV SCH (15:47)
--- NOTE | 2024-10-01 16:09 | P.PN ---
Progress Note - Text 54-year-old gentleman patient came to the emergency room with history of shortness of breath from the correction. Patient had a right foot fifth toe amputation and infected callus excised at [facility] about 2 weeks ago by me patient was under care of infectious disease and patient was sent to correction then he became short of breath has been admitted to hospital and consulted for wound care. On examination on examination patient is still short of breath femorals are 2+ bilateral P 1+ today will change dressing of the right foot we have been using Santyl cream dressing should be changed on daily basis at this point no surgical intervention needed. Under care of infectious disease when when patient goes home follow-up with the wound clinic
[2024-10-01 16:42] LABS: Glucose,Whole Blood 128 mg/dL (70-110)
[2024-10-01 20:39] LABS: Glucose,Whole Blood 195 mg/dL (70-110)
[2024-10-01] MEDS: LORazepam 0.5 MG TAB PO PRN (21:18)
[2024-10-02] MEDS: DEXTROSE 50% SYRINGE 50 ML IVP PRN (06:28)
[2024-10-02 06:31] LABS: Glucose,Whole Blood 45 mg/dL (70-110)
[2024-10-02 06:38] LABS: Glucose,Whole Blood 297 mg/dL (70-110)
--- NOTE | 2024-10-02 07:24 | XR ---
EXAMINATION TYPE: XR chest 1V DATE OF EXAM: 10/02/2024 7:12 AM COMPARISON: Chest radiograph from one day prior. CLINICAL INDICATION: Male, 54 years old with history of CHF; [facility] TECHNIQUE: XR chest 1V Frontal view of the chest. FINDINGS: Lungs/Pleura: There is no evidence of pleural effusion, focal consolidation, or pneumothorax. Pulmonary vascularity: Pulmonary vascular congestion. Heart/mediastinum: Cardiomediastinal silhouette is unremarkable. Musculoskeletal: No acute osseous pathology. Stimulator leads project over the spine. Other findings: None Lines/Tubes: Right-sided PICC line with distal tip at the cavoatrial junction. IMPRESSION: Stable Pulmonary edema [facility], , 10/02/2024 7:22 AM
[2024-10-02 07:34] LABS: Basophils # (A) 0.03 10*3/uL (0.00-0.10); Basophils % (A) 0.4 %; Eosinophils # (A) 0.24 10*3/uL (0.04-0.35); HCT 21.2 % (39.6-50.0); Lymphocytes # (A) 0.79 10*3/uL (0.90-5.00); MCH 29.1 pg (27.0-32.0); MCHC 31.1 g/dL (32.0-37.0); MCV 93.4 fL (80.0-97.0); Mean Platelet Volume 10.7 fL (9.5-12.2); Monocytes % (A) 5.1 %; Neutrophils # (A) 6.26 10*3/uL (1.80-7.70); Neutrophils % (A) 79.2 %; Platelet Count 290 10*3/uL (140-440); RBC 2.27 10*6/uL (4.40-5.60); RDW 22.9 % (11.5-14.5)
[2024-10-02 07:59] LABS: HGB 6.6 g/dL (13.0-17.0)
[2024-10-02 08:52] LABS: African American GFR (CKD) 24 (>60 ml/min/1.73 sqM); Anion Gap 5 mmol/L; Blood Urea Nitrogen 32 mg/dL (9-20); Calcium 7.6 mg/dL (8.4-10.2); Carbon Dioxide 24 mmol/L (22-30); Chloride 110 mmol/L (98-107); Glucose 270 mg/dL (74-99); Non-African American GFR(CKD) 21 (>60 ml/min/1.73 sqM); Potassium 3.6 mmol/L (3.5-5.1); Sodium 139 mmol/L (137-145)
[2024-10-02 09:15] LABS: Anisocytosis (M) Present; RBC Fragments Present; Spherocytes Present
[2024-10-02 11:25] LABS: Glucose,Whole Blood 245 mg/dL (70-110)
--- NOTE | 2024-10-02 12:35 | P.PN ---
Subjective Patient is seen for follow-up for acute kidney injury secondary to vancomycin toxicity and hypotension. Urine output at 1800 mL for 24 hours Patient is currently being diuresed for volume overload. He remains on high flow oxygen at 40 Serum creatinine staying at about 3.1 mg/dL. Lasix was increased yesterday. Objective - Vital Signs Vital signs: Vital Signs Temp 98.3 F 10/02/24 11:46 Pulse 86 10/02/24 11:46 Resp 20 10/02/24 11:46 BP 104/71 10/02/24 11:46 Pulse Ox 99 10/02/24 11:54 FiO2 40 10/02/24 11:54 Intake & Output 10/01/24 10/02/24 10/02/24 18:59 06:59 18:59 Intake Total 394 10 482 Output Total 550 1250 Balance -156 -1240 482 Weight 71 kg Intake: IV 40 10 10 Invasive Line 1 20 10 10 Invasive Line 2 20 Oral 354 472 Blood Product 0 Unit 0 Output: Urine 550 1250 Other: Voiding Method Indwelling Catheter Indwelling Catheter Indwelling Catheter # Bowel Movements 1 1 - Exam Patient is awake, comfortable, no acute distress Confused Examination of the heart S1 and S2 Examination of the lungs bilateral breath sounds are heard, decreased breath sounds at the bases Abdomen is soft nontender Examination lower extremity shows no edema, right foot is wrapped. - Labs CBC & Chem 7: 10/02/24 06:26 10/02/24 06:26 Labs: Abnormal Lab Results - Last 24 Hours (Table) 10/01/24 10/01/24 10/02/24 Range/Units 16:40 20:38 06:26 RBC (4.40-5.60) 10*6/uL Hgb (13.0-17.0) g/dL Hct (39.6-50.0) % MCHC (32.0-37.0) g/dL Immature Gran # (0.00-0.04) 10*3/uL Lymphocytes # (0.90-5.00) 10*3/uL Chloride (98-107) mmol/L BUN (9-20) mg/dL Creatinine (0.66-1.25) mg/dL Glucose (74-99) mg/dL POC Glucose (mg/dL) 128 H 195 H (70-110) mg/dL Calcium (8.4-10.2) mg/dL Random Vancomycin 47.1 H* ug/mL Crossmatch 10/02/24 10/02/24 10/02/24 Range/Units 06:26 06:26 06:26 RBC 2.27 L (4.40-5.60) 10*6/uL Hgb 6.6 L* (13.0-17.0) g/dL Hct 21.2 L (39.6-50.0) % MCHC 31.1 L (32.0-37.0) g/dL Immature Gran # 0.18 H (0.00-0.04) 10*3/uL Lymphocytes # 0.79 L (0.90-5.00) 10*3/uL Chloride 110 H (98-107) mmol/L BUN 32 H (9-20) mg/dL Creatinine 3.14 H (0.66-1.25) mg/dL Glucose 270 H (74-99) mg/dL POC Glucose (mg/dL) 45 L* (70-110) mg/dL Calcium 7.6 L (8.4-10.2) mg/dL Random Vancomycin ug/mL Crossmatch 10/02/24 10/02/24 10/02/24 Range/Units 06:37 08:08 11:23 RBC (4.40-5.60) 10*6/uL Hgb (13.0-17.0) g/dL Hct (39.6-50.0) % MCHC (32.0-37.0) g/dL Immature Gran # (0.00-0.04) 10*3/uL Lymphocytes # (0.90-5.00) 10*3/uL Chloride (98-107) mmol/L BUN (9-20) mg/dL Creatinine (0.66-1.25) mg/dL Glucose (74-99) mg/dL POC Glucose (mg/dL) 297 H 245 H (70-110) mg/dL Calcium (8.4-10.2) mg/dL Random Vancomycin ug/mL Crossmatch See Detail Microbiology - Last 24 Hours (Table) 09/29/24 10:37 Blood Culture - Preliminary Blood Assessment and Plan Assessment: 1. Acute kidney injury secondary to vancomycin toxicity with vancomycin level at 68.6 , nonoliguric. Component of ischemic ATN also present from hypotension. UA shows WBCs 175, small blood no protein. Ultrasound of the kidneys did not show any obstructive uropathy on the right kidney. Patient has had chronic dilated left collecting system. This appears to be stable from January of last year. 2. Acute hypoxic respiratory failure secondary to CHF exacerbation, maintained on IV Lasix and improved. Possible underlying pneumonia for which patient is maintained on antibiotics 3. History of urinary retention with previous history of suprapubic catheter which was removed. Patient had 500 mL of urine on straight catheterization and indwelling Friedman catheter has been placed. 4. History of EtOH abuse 5. History of osteomyelitis of the right fifth toe status post amputation 6. Pyuria in the patient who self catheterizes Plan: Continue to avoid nephrotoxic agents Continue with current dose of Lasix Continue antibiotics for possible pneumonia Repeat labs in a.m. Continue with Friedman catheter
[2024-10-02 12:41] VITALS: BMI 25.2
--- NOTE | 2024-10-02 12:52 | P.PN ---
Subjective Progress Note Date: 10/02/24 Patient is a 54-year-old male with complex past medical history including COPD, nicotine dependence, CVA/TIA, alcohol abuse, recurrent pancreatitis with pancreatic pseudocyst, urinary retention with previous suprapubic catheter, chronic pain with morphine pump. He is currently in some respiratory distress on BiPAP, unable to answer questioning. Reportedly, sent in from [facility] on the [facility]. Recently, underwent right fifth toe amputation for osteomyelitis, and was receiving IV antibiotics. Noted to be hypoxic at the outside facility, with an SpO2 of 66%. He was placed on BiPAP on arrival to the emergency department. Workup in the emergency department including a chest x-ray showing diffuse inf iltrates bilaterally concerning for pulmonary edema versus multifocal pneumonia. CBC: WBC count 15.2, hemoglobin 8.4, platelets 374. CMP: Sodium 139, potassium 4.2, chloride 113, serum bicarb 20, BUN 22, creatinine 2.95, glucose 123. Appears patient is sustained acute kidney injury. He did have a indwelling urinary catheter placed. Ultrasound of kidneys and bladder showing atrophic left kidney with dilated collecting system, chronic. In place mullins catheter with debris. NT proBNP was elevated at 10,100. Procalcitonin 6.62. Placed on empiric antibiotics in the ED in the form of azithromycin and Rocephin. Also, started on Lasix 40 mg twice daily. Most recent available echocardiogram from 2020 estimating preserved left ventricular ejection fraction of 55 to 60% with grade 1 diastolic dysfunction. Patient currently being evaluated on the cardiac stepdown unit. Appears to be anxious in some respiratory distress. He is on BiPAP with settings 12/5 and FiO2 40%. Previous ABGs done on the settings include a PaO2 of 59, pCO2 of 32, pH of 7.41. He is pulling at the mask, we are going to try and transition him over to Airvo. On 10/01/2024, the patient is being seen for a follow-up. The patient remains on Airvo and the patient is currently on 50 L with an FiO2 of 80%. Repeat chest x- ray from today still showing evidence of interstitial edema with pulm vascular congestion, probably slightly worse compared to yesterday. Nevertheless, his respiratory status is stable and the patient denies having any worsening shortness of breath. The patient is being treated for underlying urine tract infection. Urine cultures and blood culture still pending. Meanwhile, he still has a Mullins catheter in place. Repeat creatinine from today is at 3.13, essentially unchanged compared to yesterday. The white cell count remains stable at 16.5 with a hemoglobin 7.5. The patient remains on IV Rocephin. He is also receiving Lasix 40 mg IV every 8 hours. He is producing adequate amount of urine output and the patient has been negative fluid balance of 1.5 L over the past 24 hours. No other new complaints otherwise for now. [employer] on the case. The patient has been taken off vancomycin. Follow-up chest x-ray in AM. Echocardiogram was also completed and the patient was found to have a preserved LV function with an EF of around 55 to 60% with normal LV function, normal RV function without any significant valvular abnormalities. On 10/02/2024, the patient is being seen for a follow-up. The patient remains on Airvo. The patient has a nonoliguric acute kidney injury. The patient continues to develop a good urine output while being on IV Lasix 40 mg every 8 hours. Fluid balance is -1.3 L over the past 24 hours. Slight improvement in oxygenation and the patient remains on Airvo at 40 L with an FiO2 of 40%. Chest x-ray shows interstitial edema/fluid overload. Cultures are still pending. The blood cultures are negative. The white cell count is at 7.9 with a hemoglobin of 6.6 and a platelet count of 290. BUN is 32 with a creatinine of 3.1 and a sodium levels at 139. Vancomycin level was toxic initially at 68 and currently at 47. Meanwhile, the patient remains on IV Rocephin. Able to communicate. No significant complaints. Vascular surgery and infectious disease are also on the case regarding right lower extremity osteomyelitis of the right fifth toe for which the patient had undergone amputation. Mullins catheter is still in place. No evidence of any exogenous bleeding. No evidence of any GI bleeding. Objective - Vital Signs Vital signs: Vital Signs Temp 98.3 F 10/02/24 08:21 Pulse 93 10/02/24 08:21 Resp 20 10/02/24 08:21 BP 102/66 10/02/24 08:21 Pulse Ox 100 10/02/24 08:43 FiO2 50 10/02/24 08:43 Intake & Output 10/01/24 10/02/24 10/02/24 18:59 06:59 18:59 Intake Total 394 10 472 Output Total 550 1250 Balance -156 -1240 472 Weight 71 kg Intake: IV 40 10 Invasive Line 1 20 10 Invasive Line 2 20 Oral 354 472 Output: Urine 550 1250 Other: Voiding Method Indwelling Catheter Indwelling Catheter # Bowel Movements 1 1 - Exam GENERAL EXAM: Anxious, 54-year-old male on Airvo at 40 L with an FiO2 of 45% HEAD: Normocephalic and atraumatic EYES: Normal reaction of pupils, equal size. NOSE: Clear with pink turbinates. THROAT: No erythema or exudates. NECK: No masses, no JVD. CHEST: No chest wall deformity. LUNGS: Equal air entry with diffuse coarse rhonchi heard bilaterally and throughout. On Airvo, bilateral crackles are still present CVS: S1 and S2 normal with no audible murmur, regular rhythm. No extra heart sounds ABDOMEN: No hepatosplenomegaly, active bowel sounds, no guarding or rigidity. SPINE: No scoliosis or deformity SKIN: No rashes CENTRAL NERVOUS SYSTEM: No focal deficits, tone is normal in all 4 extremities. EXTREMITIES: There is no peripheral edema, clubbing, or cyanosis. Peripheral pulses are intact. Previous right fifth great toe amputation. Adherent slough, no significant undermining or tunneling. - Labs CBC & Chem 7: 10/02/24 06:26 10/02/24 06:26 Labs: Abnormal Lab Results - Last 24 Hours (Table) 10/01/24 10/01/24 10/01/24 Range/Units 11:31 16:40 20:38 RBC (4.40-5.60) 10*6/uL Hgb (13.0-17.0) g/dL Hct (39.6-50.0) % MCHC (32.0-37.0) g/dL Immature Gran # (0.00-0.04) 10*3/uL Lymphocytes # (0.90-5.00) 10*3/uL Chloride (98-107) mmol/L BUN (9-20) mg/dL Creatinine (0.66-1.25) mg/dL Glucose (74-99) mg/dL POC Glucose (mg/dL) 137 H 128 H 195 H (70-110) mg/dL Calcium (8.4-10.2) mg/dL Crossmatch 10/02/24 10/02/24 10/02/24 Range/Units 06:26 06:26 06:26 RBC 2.27 L (4.40-5.60) 10*6/uL Hgb 6.6 L* (13.0-17.0) g/dL Hct 21.2 L (39.6-50.0) % MCHC 31.1 L (32.0-37.0) g/dL Immature Gran # 0.18 H (0.00-0.04) 10*3/uL Lymphocytes # 0.79 L (0.90-5.00) 10*3/uL Chloride 110 H (98-107) mmol/L BUN 32 H (9-20) mg/dL Creatinine 3.14 H (0.66-1.25) mg/dL Glucose 270 H (74-99) mg/dL POC Glucose (mg/dL) 45 L* (70-110) mg/dL Calcium 7.6 L (8.4-10.2) mg/dL Crossmatch 10/02/24 10/02/24 Range/Units 06:37 08:08 RBC (4.40-5.60) 10*6/uL Hgb (13.0-17.0) g/dL Hct (39.6-50.0) % MCHC (32.0-37.0) g/dL Immature Gran # (0.00-0.04) 10*3/uL Lymphocytes # (0.90-5.00) 10*3/uL Chloride (98-107) mmol/L BUN (9-20) mg/dL Creatinine (0.66-1.25) mg/dL Glucose (74-99) mg/dL POC Glucose (mg/dL) 297 H (70-110) mg/dL Calcium (8.4-10.2) mg/dL Crossmatch See Detail Microbiology - Last 24 Hours (Table) 09/29/24 10:37 Blood Culture - Preliminary Blood Assessment and Plan Assessment: Acute hypoxemic respiratory failure, initially placed on BiPAP, chest x-ray showing diffuse bilateral infiltrates concerning for pulmonary edema versus multifocal pneumonia. The patient remains on Airvo at 40 L with an FiO2 of 45% %. Chest x-ray is showing persistent interstitial edema. Modest improvement in oxygenation over the past 24 hours. Tolerating the Airvo reasonably well. Dyspnea secondary to above, currently stable Chronic obstructive pulmonary disease Acute kidney injury, nonoliguric acute kidney injury due to vancomycin induced nephrotoxicity and the ultrasound of kidneys and bladder showing atrophic left kidney with dilated collecting system, chronic. Mullins catheter was in place with debris. Chronic urinary retention with previous suprapubic catheter. This was reversed and patient intermittently straight caths. The patient currently has a Mullins catheter in place. Ruled underlying urine tract infection the patient remains on IV Rocephin History osteomyelitis and right fifth toe amputation, vascular surgery and ID are both on the case Acute leukocytosis Chronic anemia, hemoglobin has dropped down to 6.6 History of chronic pancreatitis with pancreatic pseudocyst History of alcohol abuse History of CVA/TIA Chronic pain with morphine pump Tobacco dependence Plan: Repeat hemoglobin and if hemoglobin remains low, give the patient a unit of packed RBC. Keep the patient on Airvo and appears more comfortable currently 40 L and 45%. Continue IV Rocephin Vancomycin level is on the decline Continue IV Lasix 40 mg every 8 hours Repeat chest x-ray in the morning still showing interstitial edema and fluid overload Vancomycin is discontinued Infectious disease consulted Nephrology is consulted Consult wound care Echo was noted and the patient has a preserved LV function Prognosis is guarded secondary to above-mentioned comorbidities. Time with Patient: Greater than 30
[2024-10-02 16:18] LABS: Glucose,Whole Blood 231 mg/dL (70-110)
[2024-10-02 16:18] LABS: Basophils # (A) 0.04 10*3/uL (0.00-0.10); Basophils % (A) 0.3 %; Eosinophils # (A) 0.32 10*3/uL (0.04-0.35); Eosinophils % (A) 2.8 %; HCT 27.5 % (39.6-50.0); Lymphocytes # (A) 0.89 10*3/uL (0.90-5.00); Lymphocytes % (A) 7.8 %; MCH 29.2 pg (27.0-32.0); MCV 91.4 fL (80.0-97.0); Mean Platelet Volume 10.5 fL (9.5-12.2); Monocytes # (A) 0.64 10*3/uL (0.20-1.00); Monocytes % (A) 5.6 %; Neutrophils # (A) 9.34 10*3/uL (1.80-7.70); Neutrophils % (A) 81.8 %; Platelet Count 286 10*3/uL (140-440); RBC 3.01 10*6/uL (4.40-5.60); WBC 11.43 10*3/uL (4.50-10.00)
--- NOTE | 2024-10-02 16:21 | P.PN ---
Subjective Progress Note Date: 10/01/24 Principal diagnosis: Reason for follow-up is right diabetic foot infection/osteo and pneumonia Patient is a 54-year-old male with a past medical history significant for COPD diabetes mellitus hypertension hyperlipidemia rheumatoid arthritis in this patient who is status post right fifth toe amputation for a right gangrene done at [facility] patient local culture positive for coagulase- negative staph blood culture negative and the patient was getting vancomycin IV at the senior living not being admitted to hospital with worsening shortness of breath concerning for pneumonia and also have evidence of acute kidney injury. On today's evaluation that is 10/01/2024, Patient is afebrile patient is currently on high flow nasal cannula oxygen requiring 60% FiO2 the patient denies any chest pain or worsening cough no abdominal pain or diarrhea Patient did have a creatinine 3.13 no other labs were done today Objective - Vital Signs Vital signs: Vital Signs Temp 99.3 F 10/01/24 09:31 Pulse 96 10/01/24 11:15 Resp 20 10/01/24 11:15 BP 104/68 10/01/24 11:15 Pulse Ox 100 10/01/24 11:15 FiO2 80 10/01/24 11:15 Intake & Output 09/30/24 10/01/24 10/01/24 18:59 06:59 18:59 Intake Total 350 20 Output Total 850 1050 Balance -850 -700 20 Weight 71.2 kg 71.5 kg Intake: IV 350 20 Azithromycin 500 mg In 250 Sodium Chloride 0.9% 250 ml @ 250 mls/hr IVPB DAILY [facility] Rx#:[id number] Invasive Line 1 10 Invasive Line 2 10 cefTRIAXone 1 gm In 100 Sodium Chloride 0.9% 50 ml @ 100 mls/hr IVPB Q24HR [facility] Rx#:[id number] Output: Urine 850 1050 Straight 650 Other: Voiding Method Indwelling Catheter Indwelling Catheter Indwelling Catheter - Exam GENERAL DESCRIPTION: Middle-age male lying in bed in no distress RESPIRATORY SYSTEM: Unlabored breathing , decreased breath sounds at bases HEART: S1 S2 regular rate and rhythm , ABDOMEN: Soft , no tenderness EXTREMITIES: Wounds currently dressed - Labs CBC & Chem 7: 10/02/24 06:26 10/02/24 06:26 Labs: Abnormal Lab Results - Last 24 Hours (Table) 09/30/24 09/30/24 10/01/24 Range/Units 16:23 20:06 05:56 Creatinine 3.13 H (0.66-1.25) mg/dL POC Glucose (mg/dL) 152 H 146 H (70-110) mg/dL 10/01/24 Range/Units 11:31 Creatinine (0.66-1.25) mg/dL POC Glucose (mg/dL) 137 H (70-110) mg/dL Microbiology - Last 24 Hours (Table) 09/29/24 10:37 Blood Culture - Preliminary Blood Assessment and Plan (1) Foot osteomyelitis, right Current Visit: Yes Status: Acute Code(s): M86.9 - OSTEOMYELITIS, UNSPECIFIED SNOMED Code(s): 5364341099544540 (2) Pneumonia Current Visit: Yes Status: Acute Code(s): J18.9 - PNEUMONIA, UNSPECIFIED ORGANISM SNOMED Code(s): 707448123 (3) Type 2 diabetes mellitus with foot ulcer Current Visit: Yes Status: Acute Code(s): E11.621 - TYPE 2 DIABETES MELLITUS WITH FOOT ULCER; L97.509 - NON-PRESSURE CHRONIC ULCER OTH PRT UNSP FOOT W UNSP SEVERITY SNOMED Code(s): 6577798572893 Plan: 1patient with right fifth toe wet gangrene and diabetic foot infection status post right fifth toe amputation at the outside facility with the patient was getting vancomycin outpatient setting up with the acute kidney injury secondary to vancomycin culture with coagulase-negative staph blood culture negative. 2-patient with shortness of breath and hypoxemia which is likely multifactorial concern for possible component of pneumonia. 3vancomycin level is currently monitored once the level is below 15 we will start daptomycin for his right diabetic foot infection 4-Patient to continue with Rocephin and Zithromax monitor glucose closely Dictation was produced using [facility] dictation software. please excuse any grammatical, word or spelling errors.
--- NOTE | 2024-10-02 16:22 | P.PN ---
Subjective Progress Note Date: 10/02/24 Principal diagnosis: Reason for follow-up is right diabetic foot infection/osteo and pneumonia Patient is a 54-year-old male with a past medical history significant for COPD diabetes mellitus hypertension hyperlipidemia rheumatoid arthritis in this patient who is status post right fifth toe amputation for a right gangrene done at [facility] patient local culture positive for coagulase- negative staph blood culture negative and the patient was getting [facility]com[facility] IV at the [facility] not being admitted to hospital with worsening shortness of breath concerning for pneumonia and also have evidence of acute kidney injury. On today's evaluation that is 10/02/2024, patient has been afebrile, patient is breathing slightly comfortably still requiring high flow nasal cannula oxygen though FiO2 is down to 40%. Denies any chest pain or worsening cough no abdominal pain and no diarrhea. Patient white count has normalized 7.90 Vanco level is 47.1 Objective - Vital Signs Vital signs: Vital Signs Temp 98.4 F 10/02/24 13:49 Pulse 93 10/02/24 13:49 Resp 20 10/02/24 13:49 BP 111/72 10/02/24 13:49 Pulse Ox 96 10/02/24 13:49 FiO2 40 10/02/24 11:54 Intake & Output 10/01/24 10/02/24 10/02/24 18:59 06:59 18:59 Intake Total 702 59 5100 Output Total 550 1250 500 Balance -156 -1240 764 Weight 71 kg 71 kg Intake: IV 40 10 10 Invasive Line 1 20 10 10 Invasive Line 2 20 Oral 354 944 Blood Product 310 Rc As-1 Unit 310 [id number] Output: Urine 550 1250 500 Other: Voiding Method Indwelling Catheter Indwelling Catheter Indwelling Catheter # Bowel Movements 1 1 1 - Exam GENERAL DESCRIPTION: Middle-age male lying in bed in no distress RESPIRATORY SYSTEM: Unlabored breathing , decreased breath sounds at bases HEART: S1 S2 regular rate and rhythm , ABDOMEN: Soft , no tenderness EXTREMITIES: Wounds currently dressed - Labs CBC & Chem 7: 10/02/24 06:26 10/02/24 06:26 Labs: Abnormal Lab Results - Last 24 Hours (Table) 10/01/24 10/01/24 10/02/24 Range/Units 16:40 20:38 06:26 RBC (4.40-5.60) 10*6/uL Hgb (13.0-17.0) g/dL Hct (39.6-50.0) % MCHC (32.0-37.0) g/dL Immature Gran # (0.00-0.04) 10*3/uL Lymphocytes # (0.90-5.00) 10*3/uL Chloride (98-107) mmol/L BUN (9-20) mg/dL Creatinine (0.66-1.25) mg/dL Glucose (74-99) mg/dL POC Glucose (mg/dL) 128 H 195 H (70-110) mg/dL Calcium (8.4-10.2) mg/dL Random Vancomycin 47.1 H* ug/mL Crossmatch 10/02/24 10/02/24 10/02/24 Range/Units 06:26 06:26 06:26 RBC 2.27 L (4.40-5.60) 10*6/uL Hgb 6.6 L* (13.0-17.0) g/dL Hct 21.2 L (39.6-50.0) % MCHC 31.1 L (32.0-37.0) g/dL Immature Gran # 0.18 H (0.00-0.04) 10*3/uL Lymphocytes # 0.79 L (0.90-5.00) 10*3/uL Chloride 110 H (98-107) mmol/L BUN 32 H (9-20) mg/dL Creatinine 3.14 H (0.66-1.25) mg/dL Glucose 270 H (74-99) mg/dL POC Glucose (mg/dL) 45 L* (70-110) mg/dL Calcium 7.6 L (8.4-10.2) mg/dL Random Vancomycin ug/mL Crossmatch 10/02/24 10/02/24 10/02/24 Range/Units 06:37 08:08 11:23 RBC (4.40-5.60) 10*6/uL Hgb (13.0-17.0) g/dL Hct (39.6-50.0) % MCHC (32.0-37.0) g/dL Immature Gran # (0.00-0.04) 10*3/uL Lymphocytes # (0.90-5.00) 10*3/uL Chloride (98-107) mmol/L BUN (9-20) mg/dL Creatinine (0.66-1.25) mg/dL Glucose (74-99) mg/dL POC Glucose (mg/dL) 297 H 245 H (70-110) mg/dL Calcium (8.4-10.2) mg/dL Random Vancomycin ug/mL Crossmatch See Detail Microbiology - Last 24 Hours (Table) 09/29/24 10:37 Blood Culture - Preliminary Blood Assessment and Plan (1) Foot osteomyelitis, right Current Visit: Yes Status: Acute Code(s): M86.9 - OSTEOMYELITIS, UNSPECIFIED SNOMED Code(s): 9330070399574811 (2) Pneumonia Current Visit: Yes Status: Acute Code(s): J18.9 - PNEUMONIA, UNSPECIFIED O RGANISM SNOMED Code(s): 135524026 (3) Type 2 diabetes mellitus with foot ulcer Current Visit: Yes Status: Acute Code(s): E11.621 - TYPE 2 DIABETES MELLITUS WITH FOOT ULCER; L97.509 - NON-PRESSURE CHRONIC ULCER OTH PRT UNSP FOOT W UNSP SEVERITY SNOMED Code(s): 5042483259648 Plan: 1patient with right fifth toe wet gangrene and diabetic foot infection status post right fifth toe amputation at the outside facility with the patient was getting vancomycin outpatient setting up with the acute kidney injury secondary to vancomycin culture with coagulase-negative staph blood culture negative. 2-patient with shortness of breath and hypoxemia which is likely multifactorial concern for possible component of pneumonia. 3Patient to continue with Rocephin concern for pneumonia 4continue to monitor his vancomycin level once vancomycin random is below 15 we will start daptomycin discussed with the pharmacist Dictation was produced using [employer] dictation software. please excuse any grammatical, word or spelling errors. Time with Patient: Less than 30
[2024-10-02 16:29] LABS: HGB 8.8 g/dL (13.0-17.0)
[2024-10-02 20:04] LABS: Glucose,Whole Blood 221 mg/dL (70-110)
[2024-10-03 06:23] LABS: Glucose,Whole Blood 242 mg/dL (70-110)
[2024-10-03 07:51] LABS: Basophils # (A) 0.06 10*3/uL (0.00-0.10); Basophils % (A) 0.6 %; Eosinophils # (A) 0.32 10*3/uL (0.04-0.35); Eosinophils % (A) 3.1 %; HCT 29.8 % (39.6-50.0); HGB 9.7 g/dL (13.0-17.0); Lymphocytes # (A) 1.16 10*3/uL (0.90-5.00); Lymphocytes % (A) 11.3 %; MCH 29.7 pg (27.0-32.0); MCHC 32.6 g/dL (32.0-37.0); MCV 91.1 fL (80.0-97.0); Mean Platelet Volume 11.1 fL (9.5-12.2); Monocytes # (A) 0.46 10*3/uL (0.20-1.00); Monocytes % (A) 4.5 %; Neutrophils # (A) 8.04 10*3/uL (1.80-7.70); Neutrophils % (A) 78.5 %; Platelet Count 268 10*3/uL (140-440); RBC 3.27 10*6/uL (4.40-5.60); RDW 21.7 % (11.5-14.5); WBC 10.25 10*3/uL (4.50-10.00)
[2024-10-03 08:06] LABS: African American GFR (CKD) 26 (>60 ml/min/1.73 sqM); Anion Gap 7 mmol/L; Blood Urea Nitrogen 32 mg/dL (9-20); Carbon Dioxide 25 mmol/L (22-30); Chloride 105 mmol/L (98-107); Glucose 150 mg/dL (74-99); Non-African American GFR(CKD) 23 (>60 ml/min/1.73 sqM); Potassium 4.1 mmol/L (3.5-5.1); Sodium 137 mmol/L (137-145)
[2024-10-03 11:34] LABS: Glucose,Whole Blood 232 mg/dL (70-110)
--- NOTE | 2024-10-03 14:57 | P.PN ---
Subjective Progress Note Date: 10/03/24 Principal diagnosis: Reason for follow-up is right diabetic foot infection/osteo and pneumonia Patient is a 54-year-old male with a past medical history significant for COPD diabetes mellitus hypertension hyperlipidemia rheumatoid arthritis in this patient who is status post right fifth toe amputation for a right gangrene done at [facility] patient local culture positive for coagulase- negative staph blood culture negative and the patient was getting vancomycin IV at the long term not being admitted to hospital with worsening shortness of breath concerning for pneumonia and also have evidence of acute kidney injury. On today's evaluation that is 10/03/2024, Patient is afebrile this morning patient denies having any chest pain and breathing more comfortably occasional cough patient is out of 5 L nasal cannula oxygen no nausea vomiting no diarrhea. Patient white count is down to 10.25 creatinine is 2.93 blood culture have been negative so far Objective - Vital Signs Vital signs: Vital Signs Temp 98.8 F 10/03/24 12:20 Pulse 96 10/03/24 12:20 Resp 18 10/03/24 12:20 BP 95/62 10/03/24 12:20 Pulse Ox 98 10/03/24 12:20 FiO2 40 10/02/24 20:33 Intake & Output 10/02/24 10/03/24 10/03/24 18:59 06:59 18:59 Intake Total 1728 1160 570 Output Total 1000 750 Balance 728 410 570 Weight 71 kg 70 kg Intake: IV 20 20 20 Invasive Line 1 20 20 20 Intake, IV Titration 50 Amount cefTRIAXone 1 gm In 50 Sodium Chloride 0.9% 50 ml @ 100 mls/hr IVPB Q24HR [facility] Rx#:[id number] Oral 1398 1140 500 Blood Product 310 Rc As-1 Unit 310 [id number] Output: Urine 1000 750 Other: Voiding Method Indwelling Catheter Indwelling Catheter Indwelling Catheter # Bowel Movements 1 - Exam GENERAL DESCRIPTION: Middle-age male lying in bed in no distress RESPIRATORY SYSTEM: Unlabored breathing , decreased breath sounds at bases HEART: S1 S2 regular rate and rhythm , ABDOMEN: Soft , no tenderness EXTREMITIES: Wounds currently dressed - Labs CBC & Chem 7: 10/03/24 06:43 10/03/24 06:43 Labs: Abnormal Lab Results - Last 24 Hours (Table) 10/02/24 10/02/2410/02/25 Range/Units 15:41 16:16 20:03 WBC 11.43 H (4.50-10.00) 10*3/uL RBC 3.01 L (4.40-5.60) 10*6/uL Hgb 8.8 L D (13.0-17.0) g/dL Hct 27.5 L (39.6-50.0) % Immature Gran # 0.20 H (0.00-0.04) 10*3/uL Neutrophils # 9.34 H (1.80-7.70) 10*3/uL Lymphocytes # 0.89 L (0.90-5.00) 10*3/uL BUN (9-20) mg/dL Creatinine (0.66-1.25) mg/dL Glucose (74-99) mg/dL POC Glucose (mg/dL) 231 H 221 H (70-110) mg/dL Calcium (8.4-10.2) mg/dL 10/03/24 10/03/24 10/03/24 Range/Units 06:22 06:43 06:43 WBC 10.25 H (4.50-10.00) 10*3/uL RBC 3.27 L (4.40-5.60) 10*6/uL Hgb 9.7 L (13.0-17.0) g/dL Hct 29.8 L (39.6-50.0) % Immature Gran # 0.21 H (0.00-0.04) 10*3/uL Neutrophils # 8.04 H (1.80-7.70) 10*3/uL Lymphocytes # (0.90-5.00) 10*3/uL BUN 32 H (9-20) mg/dL Creatinine 2.93 H (0.66-1.25) mg/dL Glucose 150 H (74-99) mg/dL POC Glucose (mg/dL) 242 H (70-110) mg/dL Calcium 8.0 L (8.4-10.2) mg/dL 10/03/24 Range/Units 11:32 WBC (4.50-10.00) 10*3/uL RBC (4.40-5.60) 10*6/uL Hgb (13.0-17.0) g/dL Hct (39.6-50.0) % Immature Gran # (0.00-0.04) 10*3/uL Neutrophils # (1.80-7.70) 10*3/uL Lymphocytes # (0.90-5.00) 10*3/uL BUN (9-20) mg/dL Creatinine (0.66-1.25) mg/dL Glucose (74-99) mg/dL POC Glucose (mg/dL) 232 H (70-110) mg/dL Calcium (8.4-10.2) mg/dL Microbiology - Last 24 Hours (Table) 09/29/24 10:37 Blood Culture - Preliminary Blood Assessment and Plan (1) Foot osteomyelitis, right Current Visit: Yes Status: Acute Code(s): M86.9 - OSTEOMYELITIS, UNSPECIFIED SNOMED Code(s): 3997874618753161 (2) Pneumonia Current Visit: Yes Status: Acute Code(s): J18.9 - PNEUMONIA, UNSPECIFIED ORGANISM SNOMED Code(s): 772687625 (3) Type 2 diabetes mellitus with foot ulcer Current Visit: Yes Status: Acute Code(s): E11.621 - TYPE 2 DIABETES MELLITUS WITH FOOT ULCER; L97.509 - NON-PRESSURE CHRONIC ULCER OTH PRT UNSP FOOT W UNSP SEVERITY SNOMED Code(s): 1591204677561 Plan: 1patient with right fifth toe wet gangrene and diabetic foot infection status post right fifth toe amputation at the outside facility with the patient was getting vancomycin outpatient setting up with the acute kidney injury secondary to vancomycin culture with coagulase-negative staph blood culture negative. 2-patient with shortness of breath and hypoxemia which is likely multifactorial concern for possible component of pneumonia. 3 patient is afebrile and her improvement in his respiratory status white count has improved continue Rocephin we will keep him on today's Vanco random level to determine the timing of starting daptomycin for his right foot osteomyelitis Dictation was produced using [employer] dictation software. please excuse any grammatical, word or spelling errors. Time with Patient: Less than 30
--- NOTE | 2024-10-03 16:21 | P.PN ---
Subjective Progress Note Date: 10/03/24 Patient is a 54-year-old male with complex past medical history including COPD, nicotine dependence, CVA/TIA, alcohol abuse, recurrent pancreatitis with pancreatic pseudocyst, urinary retention with previous suprapubic catheter, chronic pain with morphine pump. He is currently in some respiratory distress on BiPAP, unable to answer questioning. Reportedly, sent in from [facility] on the [facility]. Recently, underwent right fifth toe amputation for osteomyelitis, and was receiving IV antibiotics. Noted to be hypoxic at the outside facility, with an SpO2 of 66%. He was placed on BiPAP on arrival to the emergency department. Workup in the emergency department including a chest x-ray showing diffuse inf iltrates bilaterally concerning for pulmonary edema versus multifocal pneumonia. CBC: WBC count 15.2, hemoglobin 8.4, platelets 374. CMP: Sodium 139, potassium 4.2, chloride 113, serum bicarb 20, BUN 22, creatinine 2.95, glucose 123. Appears patient is sustained acute kidney injury. He did have a indwelling urinary catheter placed. Ultrasound of kidneys and bladder showing atrophic left kidney with dilated collecting system, chronic. In place mullins catheter with debris. NT proBNP was elevated at 10,100. Procalcitonin 6.62. Placed on empiric antibiotics in the ED in the form of azithromycin and Rocephin. Also, started on Lasix 40 mg twice daily. Most recent available echocardiogram from 2020 estimating preserved left ventricular ejection fraction of 55 to 60% with grade 1 diastolic dysfunction. Patient currently being evaluated on the cardiac stepdown unit. Appears to be anxious in some respiratory distress. He is on BiPAP with settings 12/5 and FiO2 40%. Previous ABGs done on the settings include a PaO2 of 59, pCO2 of 32, pH of 7.41. He is pulling at the mask, we are going to try and transition him over to Airvo. On 10/01/2024, the patient is being seen for a follow-up. The patient remains on Airvo and the patient is currently on 50 L with an FiO2 of 80%. Repeat chest x- ray from today still showing evidence of interstitial edema with pulm vascular congestion, probably slightly worse compared to yesterday. Nevertheless, his respiratory status is stable and the patient denies having any worsening shortness of breath. The patient is being treated for underlying urine tract infection. Urine cultures and blood culture still pending. Meanwhile, he still has a Mullins catheter in place. Repeat creatinine from today is at 3.13, essentially unchanged compared to yesterday. The white cell count remains stable at 16.5 with a hemoglobin 7.5. The patient remains on IV Rocephin. He is also receiving Lasix 40 mg IV every 8 hours. He is producing adequate amount of urine output and the patient has been negative fluid balance of 1.5 L over the past 24 hours. No other new complaints otherwise for now. Appliance Repair Technician on the case. The patient has been taken off vancomycin. Follow-up chest x-ray in AM. Echocardiogram was also completed and the patient was found to have a preserved LV function with an EF of around 55 to 60% with normal LV function, normal RV function without any significant valvular abnormalities. On 10/02/2024, the patient is being seen for a follow-up. The patient remains on Airvo. The patient has a nonoliguric acute kidney injury. The patient continues to develop a good urine output while being on IV Lasix 40 mg every 8 hours. Fluid balance is -1.3 L over the past 24 hours. Slight improvement in oxygenation and the patient remains on Airvo at 40 L with an FiO2 of 40%. Chest x-ray shows interstitial edema/fluid overload. Cultures are still pending. The blood cultures are negative. The white cell count is at 7.9 with a hemoglobin of 6.6 and a platelet count of 290. BUN is 32 with a creatinine of 3.1 and a sodium levels at 139. Vancomycin level was toxic initially at 68 and currently at 47. Meanwhile, the patient remains on IV Rocephin. Able to communicate. No significant complaints. Vascular surgery and infectious disease are also on the case regarding right lower extremity osteomyelitis of the right fifth toe for which the patient had undergone amputation. Mullins catheter is still in place. No evidence of any exogenous bleeding. No evidence of any GI bleeding. On 10/03/2024, the patient is being seen for a follow-up. Since yesterday, the patient is improved and the patient was taken off Airvo and the patient is currently on oxygen which is being delivered at 2 L/min nasal cannula with a pu lse ox of 98%. The patient is also producing adequate amount of urine output. Fluid balance is negative and the patient's renal function is improved compared to yesterday. The creatinine is down to 2.9 with a BUN of 32 and sodium is at 137. The white cell count is at 10.2 with a hemoglobin of 9.7. Blood cultures are negative. The patient remains on Lasix 40 mg IV every 8 hours. The patient remains on Symbicort and empiric antibiotic coverage with IV Rocephin. He is also on DuoNeb nebulizer treatments [id number]. No other significant events otherwise for now. The patient is feeling better. No significant shortness of breath on today's evaluation. Objective - Vital Signs Vital signs: Vital Signs Temp 98.1 F 10/03/24 08:40 Pulse 88 10/03/24 10:39 Resp 20 10/03/24 08:40 BP 103/67 10/03/24 08:40 Pulse Ox 100 10/03/24 08:42 FiO2 40 10/02/24 20:33 Intake & Output 10/02/24 10/03/24 10/03/24 18:59 06:59 18:59 Intake Total 1728 1160 10 Output Total 1000 750 Balance 728 410 10 Weight 71 kg 70 kg Intake: IV 20 20 10 Invasive Line 1 20 20 10 Oral 1398 1140 Blood Product 310 Rc As-1 Unit 310 [id number] Output: Urine 1000 750 Other: Voiding Method Indwelling Catheter Indwelling Catheter Indwelling Catheter # Bowel Movements 1 - Exam GENERAL EXAM: Anxious, 54-year-old male on 2 L of oxygen by nasal cannula HEAD: Normocephalic and atraumatic EYES: Normal reaction of pupils, equal size. NOSE: Clear with pink turbinates. THROAT: No erythema or exudates. NECK: No masses, no JVD. CHEST: No chest wall deformity. LUNGS: Equal air entry with diffuse coarse rhonchi heard bilaterally and throughout. Improved aeration bilaterally CVS: S1 and S2 normal with no audible murmur, regular rhythm. No extra heart sounds ABDOMEN: No hepatosplenomegaly, active bowel sounds, no guarding or rigidity. SPINE: No scoliosis or deformity SKIN: No rashes CENTRAL NERVOUS SYSTEM: No focal deficits, tone is normal in all 4 extremities. EXTREMITIES: There is no peripheral edema, clubbing, or cyanosis. Peripheral pulses are intact. Previous right fifth great toe amputation. Adherent slough, no significant undermining or tunneling. - Labs CBC & Chem 7: 10/03/24 06:43 10/03/24 06:43 Labs: Abnormal Lab Results - Last 24 Hours (Table) 10/02/24 10/02/24 10/02/24 Range/Units 08:08 11:23 15:41 WBC 11.43 H (4.50-10.00) 10*3/uL RBC 3.01 L (4.40-5.60) 10*6/uL Hgb 8.8 L D (13.0-17.0) g/dL Hct 27.5 L (39.6-50.0) % Immature Gran # 0.20 H (0.00-0.04) 10*3/uL Neutrophils # 9.34 H (1.80-7.70) 10*3/uL Lymphocytes # 0.89 L (0.90-5.00) 10*3/uL BUN (9-20) mg/dL Creatinine (0.66-1.25) mg/dL Glucose (74-99) mg/dL POC Glucose (mg/dL) 245 H (70-110) mg/dL Calcium (8.4-10.2) mg/dL Crossmatch See Detail 10/02/24 10/02/24 10/03/24 Range/Units 16:16 20:03 06:22 WBC (4.50-10.00) 10*3/uL RBC (4.40-5.60) 10*6/uL Hgb (13.0-17.0) g/dL Hct (39.6-50.0) % Immature Gran # (0.00-0.04) 10*3/uL Neutrophils # (1.80-7.70) 10*3/uL Lymphocytes # (0.90-5.00) 10*3/uL BUN (9-20) mg/dL Creatinine (0.66-1.25) mg/dL Glucose (74-99) mg/dL POC Glucose (mg/dL) 231 H 221 H 242 H (70-110) mg/dL Calcium (8.4-10.2) mg/dL Crossmatch 10/03/24 10/03/24 Range/Units 06:43 06:43 WBC 10.25 H (4.50-10.00) 10*3/uL RBC 3.27 L (4.40-5.60) 10*6/uL Hgb 9.7 L (13.0-17.0) g/dL Hct 29.8 L (39.6-50.0) % Immature Gran # 0.21 H (0.00-0.04) 10*3/uL Neutrophils # 8.04 H (1.80-7.70) 10*3/uL Lymphocytes # (0.90-5.00) 10*3/uL BUN 32 H (9-20) mg/dL Creatinine 2.93 H (0.66-1.25) mg/dL Glucose 150 H (74-99) mg/dL POC Glucose (mg/dL) (70-110) mg/dL Calcium 8.0 L (8.4-10.2) mg/dL Crossmatch Microbiology - Last 24 Hours (Table) 09/29/24 10:37 Blood Culture - Preliminary Blood Assessment and Plan Assessment: Acute hypoxemic respiratory failure, initially on BiPAP later on on Airvo and currently weaned down to 2 L of oxygen by nasal cannula. Clinically improving. No significant shortness of breath at rest. Dyspnea secondary to above, currently stable, improved Chronic obstructive pulmonary disease Acute kidney injury, nonoliguric acute kidney injury due to vancomycin induced nephrotoxicity and the ultrasound of kidneys and bladder showing atrophic left kidney with dilated collecting system, chronic. Mullins catheter was in place with debris. The patient remains on empiric antibiotic coverage with IV Rocephin. Blood cultures negative. Urine culture has not been performed. Renal function is improved compared to yesterday. Chronic urinary retention with previous suprapubic catheter. This was reversed and patient intermittently straight caths. The patient currently has a Mullins catheter in place. Ruled underlying urine tract infection the patient remains on IV Rocephin History osteomyelitis and right fifth toe amputation, vascular surgery and ID are both on the case Acute leukocytosis Chronic anemia, hemoglobin has dropped down to 6.6 and the patient was given a unit of packed RBC. History of chronic pancreatitis with pancreatic pseudocyst History of alcohol abuse History of CVA/TIA Chronic pain with morphine pump Tobacco dependence Plan: Keep the patient on 2 L of oxygen by nasal cannula Continue IV Rocephin Continue IV Lasix 40 mg every 8 hours Hemoglobin is stable and the patient received a unit of packed RBC Infectious disease consulted Nephrology is consulted Consult wound care Echo was noted and the patient has a preserved LV function Prognosis is guarded secondary to above-mentioned comorbidities.
[2024-10-03 16:50] LABS: Glucose,Whole Blood 180 mg/dL (70-110)
--- NOTE | 2024-10-03 17:18 | P.PN ---
Subjective Patient is seen for follow-up for acute kidney injury secondary to vancomycin toxicity and hypotension. Urine output at 1750 mL for 24 hours Patient is currently being diuresed for volume overload. Oxygen requirements have improved and patient is down to 5 L nasal cannula. Serum creatinine at 2.9 mg/dL. Lasix was increased yesterday. Objective - Vital Signs Vital signs: Vital Signs Temp 98.8 F 10/03/24 12:20 Pulse 96 10/03/24 12:20 Resp 18 10/03/24 12:20 BP 95/62 10/03/24 12:20 Pulse Ox 98 10/03/24 15:22 FiO2 40 10/02/24 20:33 Intake & Output 10/02/24 10/03/24 10/03/24 18:59 06:59 18:59 Intake Total 1728 1160 570 Output Total 1000 750 450 Balance 728 410 120 Weight 71 kg 70 kg Intake: IV 20 20 20 Invasive Line 1 20 20 20 Intake, IV Titration 50 Amount cefTRIAXone 1 gm In 50 Sodium Chloride 0.9% 50 ml @ 100 mls/hr IVPB Q24HR [facility] Rx#:[id number] Oral 1398 1140 500 Blood Product 310 Rc As-1 Unit 310 [id number] Output: Urine 1000 750 450 Other: Voiding Method Indwelling Catheter Indwelling Catheter Indwelling Catheter # Bowel Movements 1 - Exam Patient is awake, comfortable, no acute distress Confused Examination of the heart S1 and S2 Examination of the lungs bilateral breath sounds are heard, decreased breath sounds at the bases Abdomen is soft nontender Examination lower extremity shows no edema, right foot is wrapped. - Labs CBC & Chem 7: 10/03/24 06:43 10/03/24 06:43 Labs: Abnormal Lab Results - Last 24 Hours (Table) 10/02/24 10/03/24 10/03/24 Range/Units 20:03 06:22 06:43 WBC 10.25 H (4.50-10.00) 10*3/uL RBC 3.27 L (4.40-5.60) 10*6/uL Hgb 9.7 L (13.0-17.0) g/dL Hct 29.8 L (39.6-50.0) % Immature Gran # 0.21 H (0.00-0.04) 10*3/uL Neutrophils # 8.04 H (1.80-7.70) 10*3/uL BUN (9-20) mg/dL Creatinine (0.66-1.25) mg/dL Glucose (74-99) mg/dL POC Glucose (mg/dL) 221 H 242 H (70-110) mg/dL Calcium (8.4-10.2) mg/dL 10/03/24 10/03/24 10/03/24 Range/Units 06:43 11:32 16:49 WBC (4.50-10.00) 10*3/uL RBC (4.40-5.60) 10*6/uL Hgb (13.0-17.0) g/dL Hct (39.6-50.0) % Immature Gran # (0.00-0.04) 10*3/uL Neutrophils # (1.80-7.70) 10*3/uL BUN 32 H (9-20) mg/dL Creatinine 2.93 H (0.66-1.25) mg/dL Glucose 150 H (74-99) mg/dL POC Glucose (mg/dL) 232 H 180 H (70-110) mg/dL Calcium 8.0 L (8.4-10.2) mg/dL Microbiology - Last 24 Hours (Table) 09/29/24 10:37 Blood Culture - Preliminary Blood Assessment and Plan Assessment: 1. Acute kidney injury secondary to vancomycin toxicity with vancomycin level at 68.6 , nonoliguric. Component of ischemic ATN also present from hypotension. Previous creatinine 1.0 on 09/25/2024. UA shows WBCs 175, small blood no protein. Ultrasound of the kidneys did not show any obstructive uropathy on the right kidney. Patient has had chronic dilated left collecting system. This appears to be stable from January of last year. 2. Acute hypoxic respiratory failure secondary to CHF exacerbation, maintained on IV Lasix and improved. Possible underlying pneumonia for which patient is maintained on antibiotics 3. History of urinary retention with previous history of suprapubic catheter which was removed. Patient had 500 mL of urine on straight catheterization and indwelling Friedman catheter has been placed. 4. History of EtOH abuse 5. History of osteomyelitis of the right fifth toe status post amputation 6. Pyuria in the patient who self catheterizes Plan: Continue to avoid nephrotoxic agents Continue with current dose of Lasix Continue antibiotics for possible pneumonia Repeat labs in a.m. Continue with Friedman catheter
[2024-10-03 20:09] LABS: Glucose,Whole Blood 169 mg/dL (70-110)
[2024-10-04 06:05] LABS: Glucose,Whole Blood 175 mg/dL (70-110)
[2024-10-04 08:05] LABS: African American GFR (CKD) 27 (>60 ml/min/1.73 sqM); Anion Gap 4 mmol/L; Blood Urea Nitrogen 33 mg/dL (9-20); Carbon Dioxide 28 mmol/L (22-30); Chloride 106 mmol/L (98-107); Glucose 140 mg/dL (74-99); Non-African American GFR(CKD) 24 (>60 ml/min/1.73 sqM); Potassium 4.2 mmol/L (3.5-5.1); Sodium 138 mmol/L (137-145)
[2024-10-04 08:28] LABS: Vancomycin,Random 40.8 ug/mL
[2024-10-04 11:42] LABS: Glucose,Whole Blood 180 mg/dL (70-110)
--- NOTE | 2024-10-04 13:43 | P.PN ---
Subjective Progress Note Date: 10/04/24 Patient is seen for follow-up for acute kidney injury secondary to vancomycin toxicity and hypotension. No acute events over night. Patient is awake, comfortable, no acute distress Confused Examination of the heart S1 and S2 Examination of the lungs bilateral breath sounds are heard, decreased breath arturo nds at the bases Abdomen is soft nontender Examination lower extremity shows no edema, right foot is wrapped. Objective - Vital Signs Vital signs: Vital Signs Temp 98.3 F 10/04/24 08:41 Pulse 89 10/04/24 08:41 Resp 18 10/04/24 08:41 BP 99/64 10/04/24 08:41 Pulse Ox 97 10/04/24 08:49 FiO2 40 10/02/24 20:33 Intake & Output 10/03/24 10/04/24 10/04/24 18:59 06:59 18:59 Intake Total 570 40 20 Output Total 450 900 Balance 120 -860 20 Weight 64.5 kg Intake: IV 20 40 20 Invasive Line 1 20 20 10 Invasive Line 2 20 10 Intake, IV Titration 50 Amount cefTRIAXone 1 gm In 50 Sodium Chloride 0.9% 50 ml @ 100 mls/hr IVPB Q24HR [facility] Rx#:[id number] Oral 500 Output: Urine 450 900 Other: Voiding Method Indwelling Catheter Indwelling Catheter # Bowel Movements 1 - Labs CBC & Chem 7: 10/03/24 06:43 10/04/24 06:15 Labs: Abnormal Lab Results - Last 24 Hours (Table) 10/03/24 10/03/24 10/03/24 Range/Units 11:32 16:49 20:08 BUN (9-20) mg/dL Creatinine (0.66-1.25) mg/dL Glucose (74-99) mg/dL POC Glucose (mg/dL) 232 H 180 H 169 H (70-110) mg/dL Calcium (8.4-10.2) mg/dL Random Vancomycin ug/mL 10/04/24 10/04/24 Range/Units 06:04 06:15 BUN 33 H (9-20) mg/dL Creatinine 2.86 H (0.66-1.25) mg/dL Glucose 140 H (74-99) mg/dL POC Glucose (mg/dL) 175 H (70-110) mg/dL Calcium 8.0 L (8.4-10.2) mg/dL Random Vancomycin 40.8 H* ug/mL Assessment and Plan Assessment: 1. Acute kidney injury secondary to vancomycin toxicity with vancomycin level at 68.6 , nonoliguric. Component of ischemic ATN also present from hypotension. Previous creatinine 1.0 on 09/25/2024. UA shows WBCs 175, small blood no protein. Ultrasound of the kidneys did not show any obstructive uropathy on the right kidney. Patient has had chronic dilated left collecting system. This appears to be stable from January of last year. 2. Acute hypoxic respiratory failure secondary to CHF exacerbation, maintained on IV Lasix and improved. Possible underlying pneumonia for which patient is maintained on antibiotics 3. History of urinary retention with previous history of suprapubic catheter which was removed. Patient had 500 mL of urine on straight catheterization and indwelling Friedman catheter has been placed. 4. History of EtOH abuse 5. History of osteomyelitis of the right fifth toe status post amputation 6. Pyuria in the patient who self catheterizes Plan: Continue to avoid nephrotoxic agents Continue with current dose of Lasix, renal function stable Continue antibiotics for possible pneumonia Repeat labs in a.m. Continue with Friedman catheter
[2024-10-04 16:36] LABS: Glucose,Whole Blood 231 mg/dL (70-110)
--- NOTE | 2024-10-04 16:41 | P.PN ---
Subjective Progress Note Date: 10/04/24 Principal diagnosis: Reason for follow-up is right diabetic foot infection/osteo and pneumonia Patient is a 54-year-old male with a past medical history significant for COPD diabetes mellitus hypertension hyperlipidemia rheumatoid arthritis in this patient who is status post right fifth toe amputation for a right gangrene done at [facility] patient local culture positive for coagulase- negative staph blood culture negative and the patient was getting vancomycin IV at the custodial not being admitted to hospital with worsening shortness of breath concerning for pneumonia and also have evidence of acute kidney injury. On today's evaluation that is 10/04/2024,the patient denies any fever or any chills, patient is breathing comfortably on 2 L nasal oxygen, the patient denies chest pain shortness of breath and no significant cough, patient denies abdominal pain, no nausea vomiting or diarrhea. Patient creatinine is down to 0.86 on Vanco random is 40.8 Objective - Vital Signs Vital signs: Vital Signs Temp 98.1 F 10/04/24 16:00 Pulse 85 10/04/24 16:00 Resp 18 10/04/24 16:00 BP 105/70 10/04/24 16:00 Pulse Ox 99 10/04/24 16:00 FiO2 40 10/02/24 20:33 Intake & Output 10/03/24 10/04/24 10/04/24 18:59 06:59 18:59 Intake Total 570 40 40 Output Total 450 900 500 Balance 120 -290 -460 Weight 64.5 kg Intake: IV 20 40 40 Invasive Line 1 20 20 20 Invasive Line 2 20 20 Intake, IV Titration 50 Amount cefTRIAXone 1 gm In 50 Sodium Chloride 0.9% 50 ml @ 100 mls/hr IVPB Q24HR [facility] Rx#:[id number] Oral 500 Output: Urine 450 900 500 Other: Voiding Method Indwelling Catheter Indwelling Catheter Urinal # Bowel Movements 1 - Exam GENERAL DESCRIPTION: Middle-age male lying in bed in no distress RESPIRATORY SYSTEM: Unlabored breathing , decreased breath sounds at bases HEART: S1 S2 regular rate and rhythm , ABDOMEN: Soft , no tenderness EXTREMITIES: Wounds currently dressed - Labs CBC & Chem 7: 10/03/24 06:43 10/04/24 06:15 Labs: Abnormal Lab Results - Last 24 Hours (Table) 10/03/24 10/03/24 10/04/24 Range/Units 16:49 20:08 06:04 BUN (9-20) mg/dL Creatinine (0.66-1.25) mg/dL Glucose (74-99) mg/dL POC Glucose (mg/dL) 180 H 169 H 175 H (70-110) mg/dL Calcium (8.4-10.2) mg/dL Random Vancomycin ug/mL 10/04/24 10/04/24 10/04/24 Range/Units 06:15 11:39 16:31 BUN 33 H (9-20) mg/dL Creatinine 2.86 H (0.66-1.25) mg/dL Glucose 140 H (74-99) mg/dL POC Glucose (mg/dL) 180 H 231 H (70-110) mg/dL Calcium 8.0 L (8.4-10.2) mg/dL Random Vancomycin 40.8 H* ug/mL Assessment and Plan (1) Foot osteomyelitis, right Current Visit: Yes Status: Acute Code(s): M86.9 - OSTEOMYELITIS, UNSPECIFIED SNOMED Code(s): 3204800056345424 (2) Pneumonia Current Visit: Yes Status: Acute Code(s): J18.9 - PNEUMONIA, UNSPECIFIED ORGANISM SNOMED Code(s): 132218802 (3) Type 2 diabetes mellitus with foot ulcer Current Visit: Yes Status: Acute Code(s): E11.621 - TYPE 2 DIABETES MELLITUS WITH FOOT ULCER; L97.509 - NON-PRESSURE CHRONIC ULCER OTH PRT UNSP FOOT W UNSP SEVERITY SNOMED Code(s): 1306379559837 Plan: 1patient with right fifth toe wet gangrene and diabetic foot infection status post right fifth toe amputation at the outside facility with the patient was getting vancomycin outpatient setting up with the acute kidney injury secondary to vancomycin culture with coagulase-negative staph blood culture negative. 2-patient with shortness of breath and hypoxemia which is likely multifactorial concern for possible component of pneumonia. 3 patient is afebrile and improving his kidney function however the vancomycin random remains to be elevated 40.8 will continue monitor and no need for daptomycin at this point Dictation was produced using [employer] dictation software. please excuse any grammatical, word or spelling errors. Time with Patient: Less than 30
--- NOTE | 2024-10-04 18:46 | P.PN ---
Subjective Progress Note Date: 10/04/24 Patient is a 54-year-old male with complex past medical history including COPD, nicotine dependence, CVA/TIA, alcohol abuse, recurrent pancreatitis with pancreatic pseudocyst, urinary retention with previous suprapubic catheter, chronic pain with morphine pump. He is currently in some respiratory distress on BiPAP, unable to answer questioning. Reportedly, sent in from [facility] on the [facility]. Recently, underwent right fifth toe amputation for osteomyelitis, and was receiving IV antibiotics. Noted to be hypoxic at the outside facility, with an SpO2 of 66%. He was placed on BiPAP on arrival to the emergency department. Workup in the emergency department including a chest x-ray showing diffuse inf iltrates bilaterally concerning for pulmonary edema versus multifocal pneumonia. CBC: WBC count 15.2, hemoglobin 8.4, platelets 374. CMP: Sodium 139, potassium 4.2, chloride 113, serum bicarb 20, BUN 22, creatinine 2.95, glucose 123. Appears patient is sustained acute kidney injury. He did have a indwelling urinary catheter placed. Ultrasound of kidneys and bladder showing atrophic left kidney with dilated collecting system, chronic. In place mullins catheter with debris. NT proBNP was elevated at 10,100. Procalcitonin 6.62. Placed on empiric antibiotics in the ED in the form of azithromycin and Rocephin. Also, started on Lasix 40 mg twice daily. Most recent available echocardiogram from 2020 estimating preserved left ventricular ejection fraction of 55 to 60% with grade 1 diastolic dysfunction. Patient currently being evaluated on the cardiac stepdown unit. Appears to be anxious in some respiratory distress. He is on BiPAP with settings 12/5 and FiO2 40%. Previous ABGs done on the settings include a PaO2 of 59, pCO2 of 32, pH of 7.41. He is pulling at the mask, we are going to try and transition him over to Airvo. On 10/01/2024, the patient is being seen for a follow-up. The patient remains on Airvo and the patient is currently on 50 L with an FiO2 of 80%. Repeat chest x- ray from today still showing evidence of interstitial edema with pulm vascular congestion, probably slightly worse compared to yesterday. Nevertheless, his respiratory status is stable and the patient denies having any worsening shortness of breath. The patient is being treated for underlying urine tract infection. Urine cultures and blood culture still pending. Meanwhile, he still has a Mullins catheter in place. Repeat creatinine from today is at 3.13, essentially unchanged compared to yesterday. The white cell count remains stable at 16.5 with a hemoglobin 7.5. The patient remains on IV Rocephin. He is also receiving Lasix 40 mg IV every 8 hours. He is producing adequate amount of urine output and the patient has been negative fluid balance of 1.5 L over the past 24 hours. No other new complaints otherwise for now. [facility] [employer]igger on the case. The patient has been taken off vancomycin. Follow-up chest x-ray in AM. Echocardiogram was also completed and the patient was found to have a preserved LV function with an EF of around 55 to 60% with normal LV function, normal RV function without any significant valvular abnormalities. On 10/02/2024, the patient is being seen for a follow-up. The patient remains on Airvo. The patient has a nonoliguric acute kidney injury. The patient continues to develop a good urine output while being on IV Lasix 40 mg every 8 hours. Fluid balance is -1.3 L over the past 24 hours. Slight improvement in oxygenation and the patient remains on Airvo at 40 L with an FiO2 of 40%. Chest x-ray shows interstitial edema/fluid overload. Cultures are still pending. The blood cultures are negative. The white cell count is at 7.9 with a hemoglobin of 6.6 and a platelet count of 290. BUN is 32 with a creatinine of 3.1 and a sodium levels at 139. Vancomycin level was toxic initially at 68 and currently at 47. Meanwhile, the patient remains on IV Rocephin. Able to communicate. No significant complaints. Vascular surgery and infectious disease are also on the case regarding right lower extremity osteomyelitis of the right fifth toe for which the patient had undergone amputation. Mullins catheter is still in place. No evidence of any exogenous bleeding. No evidence of any GI bleeding. On 10/03/2024, the patient is being seen for a follow-up. Since yesterday, the patient is improved and the patient was taken off Airvo and the patient is currently on oxygen which is being delivered at 2 L/min nasal cannula with a pu lse ox of 98%. The patient is also producing adequate amount of urine output. Fluid balance is negative and the patient's renal function is improved compared to yesterday. The creatinine is down to 2.9 with a BUN of 32 and sodium is at 137. The white cell count is at 10.2 with a hemoglobin of 9.7. Blood cultures are negative. The patient remains on Lasix 40 mg IV every 8 hours. The patient remains on Symbicort and empiric antibiotic coverage with IV Rocephin. He is also on DuoNeb nebulizer treatments [id number]. No other significant events otherwise for now. The patient is feeling better. No significant shortness of breath on today's evaluation. On 10/04/2024, the patient is being seen for a follow-up. The patient is stable, off Airvo and the patient remains on nasal cannula currently on 2 L. Resting comfortably in bed. And the patient is currently on 2 L of oxygen by nasal cannula. The patient remains on IV Lasix 40 mg every 8 hours. Fluid balance remains negative. Creatinine is improving slowly and the BUN is at 33 with a creatinine of 2.8. Random vancomycin level is still elevated at 40.8. Electrolytes are within normal limits. The patient is afebrile. Blood cultures turned out to be completely negative. Remains on IV Rocephin as an empiric antibiotic coverage. Rest of the medications remain essentially unchanged. Resting comfortably in bed. Denies having any chest pain or shortness of breath. No altered mentation. Chronically debilitated and there is ongoing generalized weakness Objective - Vital Signs Vital signs: Vital Signs Temp 98.3 F 10/04/24 08:41 Pulse 89 10/04/24 08:41 Resp 18 10/04/24 08:41 BP 99/64 10/04/24 08:41 Pulse Ox 97 10/04/24 08:49 FiO2 40 10/02/24 20:33 Intake & Output 10/03/24 10/04/24 10/04/24 18:59 06:59 18:59 Intake Total 570 40 20 Output Total 450 900 Balance 120 -860 20 Weight 64.5 kg Intake: IV 20 40 20 Invasive Line 1 20 20 10 Invasive Line 2 20 10 Intake, IV Titration 50 Amount cefTRIAXone 1 gm In 50 Sodium Chloride 0.9% 50 ml @ 100 mls/hr IVPB Q24HR [facility] Rx#:[id number] Oral 500 Output: Urine 450 900 Other: Voiding Method Indwelling Catheter Indwelling Catheter # Bowel Movements 1 - Exam GENERAL EXAM: Anxious, 54-year-old male on 2 L of oxygen by nasal cannula HEAD: Normocephalic and atraumatic EYES: Normal reaction of pupils, equal size. NOSE: Clear with pink turbinates. THROAT: No erythema or exudates. NECK: No masses, no JVD. CHEST: No chest wall deformity. LUNGS: Equal air entry with diffuse coarse rhonchi heard bilaterally and throughout. Improved aeration bilaterally CVS: S1 and S2 normal with no audible murmur, regular rhythm. No extra heart sounds ABDOMEN: No hepatosplenomegaly, active bowel sounds, no guarding or rigidity. SPINE: No scoliosis or deformity SKIN: No rashes CENTRAL NERVOUS SYSTEM: No focal deficits, tone is normal in all 4 extremities. EXTREMITIES: There is no peripheral edema, clubbing, or cyanosis. Peripheral pulses are intact. Previous right fifth great toe amputation. Adherent slough, no significant undermining or tunneling. - Labs CBC & Chem 7: 10/03/24 06:43 10/04/24 06:15 Labs: Abnormal Lab Results - Last 24 Hours (Table) 10/03/24 10/03/24 10/03/24 Range/Units 11:32 16:49 20:08 BUN (9-20) mg/dL Creatinine (0.66-1.25) mg/dL Glucose (74-99) mg/dL POC Glucose (mg/dL) 232 H 180 H 169 H (70-110) mg/dL Calcium (8.4-10.2) mg/dL Random Vancomycin ug/mL 10/04/24 10/04/24 Range/Units 06:04 06:15 BUN 33 H (9-20) mg/dL Creatinine 2.86 H (0.66-1.25) mg/dL Glucose 140 H (74-99) mg/dL POC Glucose (mg/dL) 175 H (70-110) mg/dL Calcium 8.0 L (8.4-10.2) mg/dL Random Vancomycin 40.8 H* ug/mL Assessment and Plan Assessment: Acute hypoxemic respiratory failure, initially on BiPAP later on on Airvo and currently weaned down to 2 L of oxygen by nasal cannula. Clinically improving. No significant shortness of breath at rest. Dyspnea secondary to above, currently stable, improved Chronic obstructive pulmonary disease, stable Acute kidney injury, nonoliguric acute kidney injury due to vancomycin induced nephrotoxicity and the ultrasound of kidneys and bladder showing atrophic left kidney with dilated collecting system, chronic. Mullins catheter was in place with debris. The patient remains on empiric antibiotic coverage with IV Rocephin. Blood cultures negative. Urine culture has not been performed. Renal function is improved compared to yesterday. Vancomycin level remains elevated, random draw and the patient continues to produce adequate amount of urine output while being on IV Lasix. Chronic urinary retention with previous suprapubic catheter. This was reversed and patient intermittently straight caths. The patient currently has a Mullins catheter in place. Ruled underlying urine tract infection the patient remains on IV Rocephin History osteomyelitis and right fifth toe amputation, vascular surgery and ID are both on the case Acute leukocytosis Chronic anemia, hemoglobin has dropped down to 6.6 and the patient was given a unit of packed RBC. History of chronic pancreatitis with pancreatic pseudocyst History of alcohol abuse History of CVA/TIA Chronic pain with morphine pump Tobacco dependence Plan: Keep the patient on 2 L of oxygen by nasal cannula Continue IV Rocephin Continue IV Lasix 40 mg every 8 hours Monitor urine output Vancomycin level remains quite elevated Hemoglobin is stable and the patient received a unit of packed RBC Infectious disease consulted Nephrology is consulted Consult wound care Echo was noted and the patient has a preserved LV function Prognosis is guarded secondary to above-mentioned comorbidities. Time with Patient: Greater than 30
[2024-10-04 20:02] LABS: Glucose,Whole Blood 203 mg/dL (70-110)
--- NOTE | 2024-10-04 20:50 | P.PN ---
Subjective Progress Note Date: 09/30/24 Patient is a 54-year-old male with a known history of alcoholic liver disease, pancreatic pseudocyst, recurrent pancreatitis, hypertension, hyperlipidemia, diabetes type 2, COPD, history of CVA/TIA with slurred speech, bilateral peripheral neuropathy, chronic low back pain, BPH, morphine pain pump, history of GI bleed, anxiety/depression and current everyday smoker and history of heavy alcohol abuse. [facility] where he is currently recovering from a cellulitis and amputation of the left toe. Apparently was found to be hypoxic with pulse ox 66% at the [facility] and was sent to ER. Patient was placed on BiPAP en route to the hospital. Patient states that he has been having shortness of breath since yesterday and progressively worse throughout the night. Denied any complaints of chest pain. No headache or dizziness. No complaints of worsening abdominal pain. No nausea vomiting or diarrhea. Patient is currently on vancomycin IV for osteomyelitis. Chest x-ray showed multifocal airspace opacities concerning for pneumonia. EKG showed sinus tachycardia. Laboratory data showed WBCs 15.1 hemoglobin 8.4 and platelets 374 ABG showed pH 7.4 pCO2 32 PO259 and Sodium 139 potassium 4.2 chloride 113 bicarb is 20 BUN 2020 creatinine 2.95 and blood sugar 123, lactic acid 1.3, alk phos 269 troponin 0.012 and proBNP 10,100 and albumin 1.9 Patient was tachycardic with heart rate 122 and tachypneic with respiratory rate 43 on admission. 09/30/2024 Patient is on Airvo at 50 L oxygen 80% FiO2. Awake alert and oriented. No complaints of chest pain. Shortness of breath is better. Patient is able to communicate. Chest x-ray showed similar pulmonary edema. 2D echocardiogram showed normal LV size and systolic function. Renal ultrasound showed no evidence of acute obstructive uropathy. Atrophic left kidney with dilated collecting system as seen on prior CT. Friedman catheter in place with debris's. Patient is on antibiotics in the form of of ceftriaxone, azithromycin. Vancomycin has been discontinued due to ANUM.. Continued on IV Lasix 40 mg every 12. Laboratory data showed WBC 16.4 hemoglobin 7.5 and platelets 376 sodium 138 potassium 4.6 chloride 113 bicarb is 20 BUN 27 creatinine 3.16 and blood sugar 147 Urinalysis showed small blood nitrite negative large leukocyte esterase with RBCs 6 and WBCs 175. Patient does have indwelling Friedman catheter. Procalcitonin level 6.62 Current medications reviewed. Objective - Vital Signs Vital signs: Vital Signs Temp 98.2 F 09/30/24 20:00 Pulse 98 09/30/24 20:00 Resp 22 09/30/24 20:00 BP 111/72 09/30/24 20:00 Pulse Ox 100 09/30/24 21:39 FiO2 80 09/30/24 21:39 Intake & Output 09/30/24 09/30/24 10/01/24 06:59 18:59 06:59 Intake Total 480 350 Output Total 250 850 Balance 230 -850 350 Weight 71.2 kg 71.2 kg Intake: IV 350 Azithromycin 500 mg In 250 Sodium Chloride 0.9% 250 ml @ 250 mls/hr IVPB DAILY [facility] Rx#:[id number] cefTRIAXone 1 gm In 100 Sodium Chloride 0.9% 50 ml @ 100 mls/hr IVPB Q24HR [facility] Rx#:[id number] Oral 480 Output: Urine 250 850 Other: Voiding Method Indwelling Catheter Indwelling Catheter Indwelling Catheter - Exam PHYSICAL EXAMINATION: Patient is lying in the bed,, no acute distress, awake alert and oriented. on Airvo. HEENT: Normocephalic. Neck is supple. Pupils reactive. Nostrils clear. Oral cavity is moist. Neck reveals no JVD, carotid bruits, or thyromegaly. CHEST EXAMINATION: Trachea is central. Symmetrical expansion. Bibasilar diminished sounds. No wheezing. No crackles. CARDIAC: Normal S1, S2 with no gallops. No murmurs ABDOMEN: Soft. Bowel sounds present, no organomegaly. No abdominal bruits. Extremities: reveal no edema. No clubbing or cyanosis Neurologically awake, alert, oriented x3. Able to move all extremities. No gross focal deficits noted Skin: No rash or skin lesions. Psychiatric: Coperative. Nonsuicidal Musculoskeletal: No joint swelling or deformity. Normal range of motion. - Labs CBC & Chem 7: 10/03/24 06:43 10/04/24 06:15 Labs: Abnormal Lab Results - Last 24 Hours (Table) 09/30/24 09/30/24 09/30/24 Range/Units 02:24 05:00 06:18 WBC (4.50-10.00) 10*3/uL RBC (4.40-5.60) 10*6/uL Hgb (13.0-17.0) g/dL Hct (39.6-50.0) % Immature Gran # (0.00-0.04) 10*3/uL Neutrophils # (1.80-7.70) 10*3/uL Monocytes # (0.20-1.00) 10*3/uL Eosinophils # (0.04-0.35) 10*3/uL ABG pO2 <30 L* (83-108) mmHg ABG Total CO2 25 H (19-24) mmol/L ABG O2 Saturation 36.6 L (94-97) % Hemoglobin 7.6 L (13.0-17.5) gm/dL Chloride (98-107) mmol/L Carbon Dioxide (22-30) mmol/L BUN (9-20) mg/dL Creatinine (0.66-1.25) mg/dL Glucose (74-99) mg/dL POC Glucose (mg/dL) 169 H (70-110) mg/dL Calcium (8.4-10.2) mg/dL Urine Blood Small H (Negative) Ur Leukocyte Esterase Large H (Negative) Urine RBC 6 H (0-5) /hpf Urine WBC 175 H (0-5) /hpf Urine WBC Clumps Few H (None) /hpf Urine Bacteria Many H (None) /hpf Hyaline Casts 13 H (0-2) /lpf Urine Mucus Rare H (None) /hpf Random Vancomycin ug/mL 09/30/24 09/30/24 09/30/24 Range/Units 06:34 06:34 06:34 WBC 16.49 H (4.50-10.00) 10*3/uL RBC 2.51 L (4.40-5.60) 10*6/uL Hgb 7.5 L (13.0-17.0) g/dL Hct 23.1 L (39.6-50.0) % Immature Gran # 0.32 H (0.00-0.04) 10*3/uL Neutrophils # 14.10 H (1.80-7.70) 10*3/uL Monocytes # 1.06 H (0.20-1.00) 10*3/uL Eosinophils # 0.00 L (0.04-0.35) 10*3/uL ABG pO2 (83-108) mmHg ABG Total CO2 (19-24) mmol/L ABG O2 Saturation (94-97) % Hemoglobin (13.0-17.5) gm/dL Chloride 113 H (98-107) mmol/L Carbon Dioxide 20 L (22-30) mmol/L BUN 27 H (9-20) mg/dL Creatinine 3.16 H (0.66-1.25) mg/dL Glucose 147 H (74-99) mg/dL POC Glucose (mg/dL) (70-110) mg/dL Calcium 8.0 L (8.4-10.2) mg/dL Urine Blood (Negative) Ur Leukocyte Esterase (Negative) Urine RBC (0-5) /hpf Urine WBC (0-5) /hpf Urine WBC Clumps (None) /hpf Urine Bacteria (None) /hpf Hyaline Casts (0-2) /lpf Urine Mucus (None) /hpf Random Vancomycin 68.6 H* ug/mL 09/30/24 09/30/24 09/30/24 Range/Units 10:52 11:44 16:23 WBC (4.50-10.00) 10*3/uL RBC (4.40-5.60) 10*6/uL Hgb (13.0-17.0) g/dL Hct (39.6-50.0) % Immature Gran # (0.00-0.04) 10*3/uL Neutrophils # (1.80-7.70) 10*3/uL Monocytes # (0.20-1.00) 10*3/uL Eosinophils # (0.04-0.35) 10*3/uL ABG pO2 (83-108) mmHg ABG Total CO2 (19-24) mmol/L ABG O2 Saturation (94-97) % Hemoglobin (13.0-17.5) gm/dL Chloride (98-107) mmol/L Carbon Dioxide (22-30) mmol/L BUN (9-20) mg/dL Creatinine (0.66-1.25) mg/dL Glucose (74-99) mg/dL POC Glucose (mg/dL) 149 H 150 H 152 H (70-110) mg/dL Calcium (8.4-10.2) mg/dL Urine Blood (Negative) Ur Leukocyte Esterase (Negative) Urine RBC (0-5) /hpf Urine WBC (0-5) /hpf Urine WBC Clumps (None) /hpf Urine Bacteria (None) /hpf Hyaline Casts (0-2) /lpf Urine Mucus (None) /hpf Random Vancomycin ug/mL 09/30/24 Range/Units 20:06 WBC (4.50-10.00) 10*3/uL RBC (4.40-5.60) 10*6/uL Hgb (13.0-17.0) g/dL Hct (39.6-50.0) % Immature Gran # (0.00-0.04) 10*3/uL Neutrophils # (1.80-7.70) 10*3/uL Monocytes # (0.20-1.00) 10*3/uL Eosinophils # (0.04-0.35) 10*3/uL ABG pO2 (83-108) mmHg ABG Total CO2 (19-24) mmol/L ABG O2 Saturation (94-97) % Hemoglobin (13.0-17.5) gm/dL Chloride (98-107) mmol/L Carbon Dioxide (22-30) mmol/L BUN (9-20) mg/dL Creatinine (0.66-1.25) mg/dL Glucose (74-99) mg/dL POC Glucose (mg/dL) 146 H (70-110) mg/dL Calcium (8.4-10.2) mg/dL Urine Blood (Negative) Ur Leukocyte Esterase (Negative) Urine RBC (0-5) /hpf Urine WBC (0-5) /hpf Urine WBC Clumps (None) /hpf Urine Bacteria (None) /hpf Hyaline Casts (0-2) /lpf Urine Mucus (None) /hpf Random Vancomycin ug/mL Microbiology - Last 24 Hours (Table) 09/29/24 10:37 Blood Culture - Preliminary Blood Assessment and Plan Assessment: Acute hypoxemic respiratory failure requiring BiPAP due to fluid load and multifocal pneumonia Acute kidney injury possibly ATN and patient is also on vancomycin Acute on chronic CHF with preserved ejection fraction Recent left lower extremity toe ambulation and osteomyelitis. Currently hold vancomycin Previous history of moderate left hydronephrosis Hypertension Diabetes type 2 COPD History of CVA/TIA with slurred speech Bilateral peripheral neuropathy Recurrent pancreatitis and pancreatic pseudocyst Chronic alcoholic liver disease Morphine pain pump Anxiety/depression History of heavy alcohol abuse Current everyday smoker DVT prophylaxis with heparin subcu Plan: Patient is Airvo. Continue with antibiotics ceftriaxone, azithromycin. Vancomycin has been discontinued due to ANUM. Continue with IV Lasix and monitor renal function closely. Follow-up repeat chest x-ray. Continue with insulin sliding scale. Pain management and follow-up closely. ID, nephrology and pulmonary team is on board.. Prognosis is guarded with multiple medical problems and comorbid conditions. Time with Patient: Greater than 30
--- NOTE | 2024-10-04 20:53 | P.PN ---
Subjective Progress Note Date: 10/01/24 Patient is a 54-year-old male with a known history of alcoholic liver disease, pancreatic pseudocyst, recurrent pancreatitis, hypertension, hyperlipidemia, diabetes type 2, COPD, history of CVA/TIA with slurred speech, bilateral peripheral neuropathy, chronic low back pain, BPH, morphine pain pump, history of GI bleed, anxiety/depression and current everyday smoker and history of heavy alcohol abuse. Patient was sent from custodial where he is currently recovering from a cellulitis and amputation of the left toe. Apparently was found to be hypoxic with pulse ox 66% at the custodial and was sent to ER. Patient was placed on BiPAP en route to the hospital. Patient states that he has been having shortness of breath since yesterday and progressively worse throughout the night. Denied any complaints of chest pain. No headache or dizziness. No complaints of worsening abdominal pain. No nausea vomiting or diarrhea. Patient is currently on vancomycin IV for osteomyelitis. Chest x-ray showed multifocal airspace opacities concerning for pneumonia. EKG showed sinus tachycardia. Laboratory data showed WBCs 15.1 hemoglobin 8.4 and platelets 374 ABG showed pH 7.4 pCO2 32 PO259 and Sodium 139 potassium 4.2 chloride 113 bicarb is 20 BUN 2020 creatinine 2.95 and blood sugar 123, lactic acid 1.3, alk phos 269 troponin 0.012 and proBNP 10,100 and albumin 1.9 Patient was tachycardic with heart rate 122 and tachypneic with respiratory rate 43 on admission. 09/30/2024 Patient is on Airvo at 50 L oxygen 80% FiO2. Awake alert and oriented. No complaints of chest pain. Shortness of breath is better. Patient is able to communicate. Chest x-ray showed similar pulmonary edema. 2D echocardiogram showed normal LV size and systolic function. Renal ultrasound showed no evidence of acute obstructive uropathy. Atrophic left kidney with dilated collecting system as seen on prior CT. Friedman catheter in place with debris's. Patient is on antibiotics in the form of of ceftriaxone, azithromycin. Vancomycin has been discontinued due to ANUM.. Continued on IV Lasix 40 mg every 12. Laboratory data showed WBC 16.4 hemoglobin 7.5 and platelets 376 sodium 138 potassium 4.6 chloride 113 bicarb is 20 BUN 27 creatinine 3.16 and blood sugar 147 Urinalysis showed small blood nitrite negative large leukocyte esterase with RBCs 6 and WBCs 175. Patient does have indwelling Friedman catheter. Procalcitonin level 6.62 10/01/2024 Patient is in the medical floor. Awake alert and oriented. Currently on Airvo 50 L with 80% FiO2. Afebrile. Denies any complaints of chest pain. No nausea vomiting or diarrhea. Repeat chest x-ray today showed slightly worsened pulmonary edema. Patient is being continued on IV Lasix 40 mg Q8 hourly. Also antibiotics in the form of ceftriaxone and azithromycin. Laboratory data reviewed. Current medications reviewed. Objective - Vital Signs Vital signs: Vital Signs Temp 98.2 F 10/01/24 20:00 Pulse 98 10/01/24 21:39 Resp 20 10/01/24 20:00 BP 100/64 10/01/24 20:00 Pulse Ox 96 10/01/24 21:26 FiO2 80 10/01/24 21:26 Intake & Output 10/01/24 10/01/24 10/02/24 06:59 18:59 06:59 Intake Total 350 394 Output Total 1050 550 400 Balance -700 -156 -400 Weight 71.5 kg Intake: IV 350 40 Azithromycin 500 mg In 250 Sodium Chloride 0.9% 250 ml @ 250 mls/hr IVPB DAILY [facility] Rx#:[id number] Invasive Line 1 20 Invasive Line 2 20 cefTRIAXone 1 gm In 100 Sodium Chloride 0.9% 50 ml @ 100 mls/hr IVPB Q24HR [facility] Rx#:[id number] Oral 354 Output: Urine 1050 550 400 Straight 650 Other: Voiding Method Indwelling Catheter Indwelling Catheter Indwelling Catheter # Bowel Movements 1 1 - Exam PHYSICAL EXAMINATION: Patient is lying in the bed,, no acute distress, awake alert and oriented. on Airvo. HEENT: Normocephalic. Neck is supple. Pupils reactive. Nostrils clear. Oral cavity is moist. Neck reveals no JVD, carotid bruits, or thyromegaly. CHEST EXAMINATION: Trachea is central. Symmetrical expansion. Bibasilar diminished sounds. No wheezing. No crackles. CARDIAC: Normal S1, S2 with no gallops. No murmurs ABDOMEN: Soft. Bowel sounds present, no organomegaly. No abdominal bruits. Extremities: reveal no edema. No clubbing or cyanosis Neurologically awake, alert, oriented x3. Able to move all extremities. No gross focal deficits noted Skin: No rash or skin lesions. Psychiatric: Coperative. Nonsuicidal Musculoskeletal: No joint swelling or deformity. Normal range of motion. - Labs CBC & Chem 7: 10/03/24 06:43 10/04/24 06:15 Labs: Abnormal Lab Results - Last 24 Hours (Table) 10/01/24 10/01/24 10/01/24 Range/Units 05:56 11:31 16:40 Creatinine 3.13 H (0.66-1.25) mg/dL POC Glucose (mg/dL) 137 H 128 H (70-110) mg/dL 10/01/24 Range/Units 20:38 Creatinine (0.66-1.25) mg/dL POC Glucose (mg/dL) 195 H (70-110) mg/dL Microbiology - Last 24 Hours (Table) 09/29/24 10:37 Blood Culture - Preliminary Blood Assessment and Plan Assessment: Acute hypoxemic respiratory failure requiring BiPAP due to fluid load and multifocal pneumonia Acute kidney injury possibly ATN and toxicity due to vancomycin Acute on chronic CHF with preserved ejection fraction Recent left lower extremity toe ambulation and osteomyelitis. Currently hold vancomycin Previous history of moderate left hydronephrosis Hypertension Diabetes type 2 COPD History of CVA/TIA with slurred speech Bilateral peripheral neuropathy Recurrent pancreatitis and pancreatic pseudocyst Chronic alcoholic liver disease Morphine pain pump Anxiety/depression History of heavy alcohol abuse Current everyday smoker DVT prophylaxis with heparin subcu Plan: Patient is Airvo Continue with antibiotics ceftriaxone, azithromycin. Vancomycin has been discontinued due to ANUM. Follow-up cultures from the [facility]. Continue with IV Lasix Q8 hourly and monitor renal function closely. Follow-up repeat chest x-ray. Continue with insulin sliding scale. Pain management and follow-up closely. ID, nephrology and pulmonary team is on board.. Prognosis is guarded with multiple medical problems and comorbid conditions. Time with Patient: Greater than 30
--- NOTE | 2024-10-04 20:58 | P.PN ---
Subjective Progress Note Date: 10/02/24 Patient is a 54-year-old male with a known history of alcoholic liver disease, pancreatic pseudocyst, recurrent pancreatitis, hypertension, hyperlipidemia, diabetes type 2, COPD, history of CVA/TIA with slurred speech, bilateral peripheral neuropathy, chronic low back pain, BPH, morphine pain pump, history of GI bleed, anxiety/depression and current everyday smoker and history of heavy alcohol abuse. Patient was sent from senior care where he is currently recovering from a cellulitis and amputation of the left toe. Apparently was found to be hypoxic with pulse ox 66% at the senior care and was sent to ER. Patient was placed on BiPAP en route to the hospital. Patient states that he has been having shortness of breath since yesterday and progressively worse throughout the night. Denied any complaints of chest pain. No headache or dizziness. No complaints of worsening abdominal pain. No nausea vomiting or diarrhea. Patient is currently on vancomycin IV for osteomyelitis. Chest x-ray showed multifocal airspace opacities concerning for pneumonia. EKG showed sinus tachycardia. Laboratory data showed WBCs 15.1 hemoglobin 8.4 and platelets 374 ABG showed pH 7.4 pCO2 32 PO259 and Sodium 139 potassium 4.2 chloride 113 bicarb is 20 BUN 2020 creatinine 2.95 and blood sugar 123, lactic acid 1.3, alk phos 269 troponin 0.012 and proBNP 10,100 and albumin 1.9 Patient was tachycardic with heart rate 122 and tachypneic with respiratory rate 43 on admission. 09/30/2024 Patient is on Airvo at 50 L oxygen 80% FiO2. Awake alert and oriented. No complaints of chest pain. Shortness of breath is better. Patient is able to communicate. Chest x-ray showed similar pulmonary edema. 2D echocardiogram showed normal LV size and systolic function. Renal ultrasound showed no evidence of acute obstructive uropathy. Atrophic left kidney with dilated collecting system as seen on prior CT. Friedman catheter in place with debris's. Patient is on antibiotics in the form of of ceftriaxone, azithromycin. Vancomycin has been discontinued due to ANUM.. Continued on IV Lasix 40 mg every 12. Laboratory data showed WBC 16.4 hemoglobin 7.5 and platelets 376 sodium 138 potassium 4.6 chloride 113 bicarb is 20 BUN 27 creatinine 3.16 and blood sugar 147 Urinalysis showed small blood nitrite negative large leukocyte esterase with RBCs 6 and WBCs 175. Patient does have indwelling Friedman catheter. Procalcitonin level 6.62 10/01/2024 Patient is in the medical floor. Awake alert and oriented. Currently on Airvo 50 L with 80% FiO2. Afebrile. Denies any complaints of chest pain. No nausea vomiting or diarrhea. Repeat chest x-ray today showed slightly worsened pulmonary edema. Patient is being continued on IV Lasix 40 mg Q8 hourly. Also antibiotics in the form of ceftriaxone and azithromycin. Laboratory data reviewed. 10/02/2024 Patient is awake alert and oriented. Remains on high flow oxygen 40 L at 45% FiO2.. No cough or sputum production. Afebrile. No chest pain or worsening shortness of breath.. Continues on IV Lasix 40 mg every 8 hourly. Also on antibiotics and follow-up ceftriaxone. Patient was seen by vascular surgery, recommends to continue wound care and IV antibiotics. Chest x-ray showed stable pulmonary edema. Laboratory data showed WBC 7.9 hemoglobin 6.6 and platelets 290 sodium 139 potassium 3.6 chloride 110 bicarb is 24 BUN 32 and creatinine 3.14 and blood sugar 270 and CBC was 45. Patient is being transfused with 1 unit of PRBC. Current medications reviewed. Objective - Vital Signs Vital signs: Vital Signs Temp 98.4 F 10/02/24 13:49 Pulse 93 10/02/24 13:49 Resp 18 10/02/24 17:04 BP 113/74 10/02/24 17:04 Pulse Ox 96 10/02/24 17:04 FiO2 40 10/02/24 15:49 Intake & Output 10/02/24 10/02/24 10/03/24 06:59 18:59 06:59 Intake Total 10 1728 Output Total 1250 1000 Balance -1240 728 Weight 71 kg 71 kg Intake: IV 10 20 Invasive Line 1 10 20 Oral 1398 Blood Product 310 Rc As-1 Unit 310 [id number] Output: Urine 1250 1000 Other: Voiding Method Indwelling Catheter Indwelling Catheter # Bowel Movements 1 1 - Exam PHYSICAL EXAMINATION: Patient is lying in the bed,, no acute distress, awake alert and oriented. on Airvo. HEENT: Normocephalic. Neck is supple. Pupils reactive. Nostrils clear. Oral cavity is moist. Neck reveals no JVD, carotid bruits, or thyromegaly. CHEST EXAMINATION: Trachea is central. Symmetrical expansion. Bibasilar diminished sounds. No wheezing. No crackles. CARDIAC: Normal S1, S2 with no gallops. No murmurs ABDOMEN: Soft. Bowel sounds present, no organomegaly. No abdominal bruits. Extremities: reveal no edema. No clubbing or cyanosis Neurologically awake, alert, oriented x3. Able to move all extremities. No gross focal deficits noted Skin: No rash or skin lesions. Psychiatric: Coperative. Nonsuicidal Musculoskeletal: No joint swelling or deformity. Normal range of motion. - Labs CBC & Chem 7: 10/03/24 06:43 10/04/24 06:15 Labs: Abnormal Lab Results - Last 24 Hours (Table) 10/01/24 10/02/24 10/02/24 Range/Units 20:38 06:26 06:26 WBC (4.50-10.00) 10*3/uL RBC (4.40-5.60) 10*6/uL Hgb (13.0-17.0) g/dL Hct (39.6-50.0) % MCHC (32.0-37.0) g/dL Immature Gran # (0.00-0.04) 10*3/uL Neutrophils # (1.80-7.70) 10*3/uL Lymphocytes # (0.90-5.00) 10*3/uL Chloride 110 H (98-107) mmol/L BUN 32 H (9-20) mg/dL Creatinine 3.14 H (0.66-1.25) mg/dL Glucose 270 H (74-99) mg/dL POC Glucose (mg/dL) 195 H (70-110) mg/dL Calcium 7.6 L (8.4-10.2) mg/dL Random Vancomycin 47.1 H* ug/mL Crossmatch 10/02/24 10/02/24 10/02/24 Range/Units 06:26 06:26 06:37 WBC (4.50-10.00) 10*3/uL RBC 2.27 L (4.40-5.60) 10*6/uL Hgb 6.6 L* (13.0-17.0) g/dL Hct 21.2 L (39.6-50.0) % MCHC 31.1 L (32.0-37.0) g/dL Immature Gran # 0.18 H (0.00-0.04) 10*3/uL Neutrophils # (1.80-7.70) 10*3/uL Lymphocytes # 0.79 L (0.90-5.00) 10*3/uL Chloride (98-107) mmol/L BUN (9-20) mg/dL Creatinine (0.66-1.25) mg/dL Glucose (74-99) mg/dL POC Glucose (mg/dL) 45 L* 297 H (70-110) mg/dL Calcium (8.4-10.2) mg/dL Random Vancomycin ug/mL Crossmatch 10/02/24 10/02/24 10/02/24 Range/Units 08:08 11:23 15:41 WBC 11.43 H (4.50-10.00) 10*3/uL RBC 3.01 L (4.40-5.60) 10*6/uL Hgb 8.8 L D (13.0-17.0) g/dL Hct 27.5 L (39.6-50.0) % MCHC (32.0-37.0) g/dL Immature Gran # 0.20 H (0.00-0.04) 10*3/uL Neutrophils # 9.34 H (1.80-7.70) 10*3/uL Lymphocytes # 0.89 L (0.90-5.00) 10*3/uL Chloride (98-107) mmol/L BUN (9-20) mg/dL Creatinine (0.66-1.25) mg/dL Glucose (74-99) mg/dL POC Glucose (mg/dL) 245 H (70-110) mg/dL Calcium (8.4-10.2) mg/dL Random Vancomycin ug/mL Crossmatch See Detail 10/02/24 10/02/24 Range/Units 16:16 20:03 WBC (4.50-10.00) 10*3/uL RBC (4.40-5.60) 10*6/uL Hgb (13.0-17.0) g/dL Hct (39.6-50.0) % MCHC (32.0-37.0) g/dL Immature Gran # (0.00-0.04) 10*3/uL Neutrophils # (1.80-7.70) 10*3/uL Lymphocytes # (0.90-5.00) 10*3/uL Chloride (98-107) mmol/L BUN (9-20) mg/dL Creatinine (0.66-1.25) mg/dL Glucose (74-99) mg/dL POC Glucose (mg/dL) 231 H 221 H (70-110) mg/dL Calcium (8.4-10.2) mg/dL Random Vancomycin ug/mL Crossmatch Microbiology - Last 24 Hours (Table) 09/29/24 10:37 Blood Culture - Preliminary Blood Assessment and Plan Assessment: Acute hypoxemic respiratory failure requiring BiPAP due to fluid load and multif ocal pneumonia. Chest x-ray showed pulmonary edema. Procalcitonin level is elevated. Acute kidney injury possibly ATN and toxicity due to vancomycin Acute on chronic CHF with preserved ejection fraction Recent left lower extremity toe ambulation and osteomyelitis. Currently hold vancomycin Previous history of moderate left hydronephrosis Hypertension Diabetes type 2 COPD History of CVA/TIA with slurred speech Bilateral peripheral neuropathy Recurrent pancreatitis and pancreatic pseudocyst Chronic alcoholic liver disease Morphine pain pump Anxiety/depression History of heavy alcohol abuse Current everyday smoker DVT prophylaxis with heparin subcu Plan: Patient is Airvo. Continue with antibiotics ceftriaxone, azithromycin. Vancomycin has been discontinued due to ANUM. Vancomycin toxicity improving. Follow-up cultures from the [facility]. Continue with IV Lasix Q8 hourly and monitor renal function closely. Follow-up repeat chest x-ray. Continue with insulin sliding scale. Pain management and follow-up closely. Continue with wound care. Follow-up repeat cultures. ID, nephrology and pulmonary team is on board.. Prognosis is guarded with multiple medical problems and comorbid conditions. Time with Patient: Greater than 30
--- NOTE | 2024-10-04 21:02 | P.PN ---
Subjective Progress Note Date: 10/03/24 Patient is a 54-year-old male with a known history of alcoholic liver disease, pancreatic pseudocyst, recurrent pancreatitis, hypertension, hyperlipidemia, diabetes type 2, COPD, history of CVA/TIA with slurred speech, bilateral peripheral neuropathy, chronic low back pain, BPH, morphine pain pump, history of GI bleed, anxiety/depression and current everyday smoker and history of heavy alcohol abuse. Patient was sent from custodial where he is currently recovering from a cellulitis and amputation of the left toe. Apparently was found to be hypoxic with pulse ox 66% at the custodial and was sent to ER. Patient was placed on BiPAP en route to the hospital. Patient states that he has been having shortness of breath since yesterday and progressively worse throughout the night. Denied any complaints of chest pain. No headache or dizziness. No complaints of worsening abdominal pain. No nausea vomiting or diarrhea. Patient is currently on vancomycin IV for osteomyelitis. Chest x-ray showed multifocal airspace opacities concerning for pneumonia. EKG showed sinus tachycardia. Laboratory data showed WBCs 15.1 hemoglobin 8.4 and platelets 374 ABG showed pH 7.4 pCO2 32 PO259 and Sodium 139 potassium 4.2 chloride 113 bicarb is 20 BUN 2020 creatinine 2.95 and blood sugar 123, lactic acid 1.3, alk phos 269 troponin 0.012 and proBNP 10,100 and albumin 1.9 Patient was tachycardic with heart rate 122 and tachypneic with respiratory rate 43 on admission. 09/30/2024 Patient is on Airvo at 50 L oxygen 80% FiO2. Awake alert and oriented. No complaints of chest pain. Shortness of breath is better. Patient is able to communicate. Chest x-ray showed similar pulmonary edema. 2D echocardiogram showed normal LV size and systolic function. Renal ultrasound showed no evidence of acute obstructive uropathy. Atrophic left kidney with dilated collecting system as seen on prior CT. Friedman catheter in place with debris's. Patient is on antibiotics in the form of of ceftriaxone, azithromycin. Vancomycin has been discontinued due to ANUM.. Continued on IV Lasix 40 mg every 12. Laboratory data showed WBC 16.4 hemoglobin 7.5 and platelets 376 sodium 138 potassium 4.6 chloride 113 bicarb is 20 BUN 27 creatinine 3.16 and blood sugar 147 Urinalysis showed small blood nitrite negative large leukocyte esterase with RBCs 6 and WBCs 175. Patient does have indwelling Friedman catheter. Procalcitonin level 6.62 10/01/2024 Patient is in the medical floor. Awake alert and oriented. Currently on Airvo 50 L with 80% FiO2. Afebrile. Denies any complaints of chest pain. No nausea vomiting or diarrhea. Repeat chest x-ray today showed slightly worsened pulmonary edema. Patient is being continued on IV Lasix 40 mg Q8 hourly. Also antibiotics in the form of ceftriaxone and azithromycin. Laboratory data reviewed. 10/02/2024 Patient is awake alert and oriented. Remains on high flow oxygen 40 L at 45% FiO2.. No cough or sputum production. Afebrile. No chest pain or worsening shortness of breath.. Continues on IV Lasix 40 mg every 8 hourly. Also on antibiotics and follow-up ceftriaxone. Patient was seen by vascular surgery, recommends to continue wound care and IV antibiotics. Chest x-ray showed stable pulmonary edema. Laboratory data showed WBC 7.9 hemoglobin 6.6 and platelets 290 sodium 139 potassium 3.6 chloride 110 bicarb is 24 BUN 32 and creatinine 3.14 and blood sugar 270 and CBC was 45. Patient is being transfused with 1 unit of PRBC. 10/03/2024 Patient is lying in the bed. Awake alert and oriented x 3. No complaints of chest pain or worsening shortness of breath. High flow oxygen transition to 4 L via nasal cannula. No complaints of chest pain or worsening shortness of breath. Patient has been afebrile. Remains on antibiotics with home ceftriaxone. Also on IV Lasix 40 mg Q8 hourly. Blood cultures negative so far. Laboratory data showed WBC 10.2 hemoglobin 9.7 and platelets 268 sodium 137 potassium 4.1 chloride 105 bicarbonate 25 BUN 32 and creatinine 2.93 and blood sugar 150 and calcium 8.0. Current medications reviewed. Objective - Vital Signs Vital signs: Vital Signs Temp 98.3 F 10/03/24 20:00 Pulse 89 10/03/24 20:00 Resp 15 10/03/24 20:00 BP 97/69 10/03/24 20:00 Pulse Ox 98 10/03/24 20:00 FiO2 40 10/02/24 20:33 Intake & Output 10/03/24 10/03/24 10/04/24 06:59 18:59 06:59 Intake Total 1160 570 20 Output Total 750 450 500 Balance 410 120 -480 Weight 70 kg Intake: IV 20 20 20 Invasive Line 1 20 20 10 Invasive Line 2 10 Intake, IV Titration 50 Amount cefTRIAXone 1 gm In 50 Sodium Chloride 0.9% 50 ml @ 100 mls/hr IVPB Q24HR [facility] Rx#:[id number] Oral 1140 500 Output: Urine 750 450 500 Other: Voiding Method Indwelling Catheter Indwelling Catheter Indwelling Catheter # Bowel Movements 1 - Exam PHYSICAL EXAMINATION: Patient is lying in the bed,, no acute distress, awake alert and oriented. on Airvo. HEENT: Normocephalic. Neck is supple. Pupils reactive. Nostrils clear. Oral cavity is moist. Neck reveals no JVD, carotid bruits, or thyromegaly. CHEST EXAMINATION: Trachea is central. Symmetrical expansion. Bibasilar diminished sounds. No wheezing. No crackles. CARDIAC: Normal S1, S2 with no gallops. No murmurs ABDOMEN: Soft. Bowel sounds present, no organomegaly. No abdominal bruits. Extremities: reveal no edema. No clubbing or cyanosis Neurologically awake, alert, oriented x3. Able to move all extremities. No gross focal deficits noted Skin: No rash or skin lesions. Psychiatric: Coperative. Nonsuicidal Musculoskeletal: No joint swelling or deformity. Normal range of motion. - Labs CBC & Chem 7: 10/03/24 06:43 10/04/24 06:15 Labs: Abnormal Lab Results - Last 24 Hours (Table) 10/03/24 10/03/24 10/03/24 Range/Units 06:22 06:43 06:43 WBC 10.25 H (4.50-10.00) 10*3/uL RBC 3.27 L (4.40-5.60) 10*6/uL Hgb 9.7 L (13.0-17.0) g/dL Hct 29.8 L (39.6-50.0) % Immature Gran # 0.21 H (0.00-0.04) 10*3/uL Neutrophils # 8.04 H (1.80-7.70) 10*3/uL BUN 32 H (9-20) mg/dL Creatinine 2.93 H (0.66-1.25) mg/dL Glucose 150 H (74-99) mg/dL POC Glucose (mg/dL) 242 H (70-110) mg/dL Calcium 8.0 L (8.4-10.2) mg/dL 10/03/24 10/03/24 10/03/24 Range/Units 11:32 16:49 20:08 WBC (4.50-10.00) 10*3/uL RBC (4.40-5.60) 10*6/uL Hgb (13.0-17.0) g/dL Hct (39.6-50.0) % Immature Gran # (0.00-0.04) 10*3/uL Neutrophils # (1.80-7.70) 10*3/uL BUN (9-20) mg/dL Creatinine (0.66-1.25) mg/dL Glucose (74-99) mg/dL POC Glucose (mg/dL) 232 H 180 H 169 H (70-110) mg/dL Calcium (8.4-10.2) mg/dL Assessment and Plan Assessment: Acute hypoxemic respiratory failure requiring BiPAP due to fluid load and possible multifocal pneumonia. Chest x-ray showed pulmonary edema. Procalcitonin level is elevated on admission. Acute kidney injury possibly ATN and toxicity due to vancomycin Acute on chronic CHF with preserved ejection fraction Recent left lower extremity toe ambulation and osteomyelitis. Currently hold vancomycin Previous history of moderate left hydronephrosis Hypertension Diabetes type 2 COPD History of CVA/TIA with slurred speech Bilateral peripheral neuropathy Recurrent pancreatitis and pancreatic pseudocyst Chronic alcoholic liver disease Morphine pain pump Anxiety/depression History of heavy alcohol abuse Current everyday smoker DVT prophylaxis with heparin subcu Plan: Patient is transition to oxygen via nasal cannula.. Continue with antibiotics ceftriaxone, azithromycin. Vancomycin has been discontinued due to ANUM. Vancomycin toxicity improving. Follow-up cultures from the [facility]. Continue with IV Lasix Q8 hourly and monitor renal function closely. Follow-up repeat chest x-ray. Continue with insulin sliding scale. Pain management and follow-up closely. Continue with wound care. ID, nephrology and pulmonary team is on board.. Prognosis is guarded with multiple medical problems and comorbid conditions. Time with Patient: Greater than 30
--- NOTE | 2024-10-04 21:03 | P.PN ---
Subjective Progress Note Date: 10/04/24 Patient is a 54-year-old male with a known history of alcoholic liver disease, pancreatic pseudocyst, recurrent pancreatitis, hypertension, hyperlipidemia, diabetes type 2, COPD, history of CVA/TIA with slurred speech, bilateral peripheral neuropathy, chronic low back pain, BPH, morphine pain pump, history of GI bleed, anxiety/depression and current everyday smoker and history of heavy alcohol abuse. Patient was sent from alf where he is currently recovering from a cellulitis and amputation of the left toe. Apparently was found to be hypoxic with pulse ox 66% at the alf and was sent to ER. Patient was placed on BiPAP en route to the hospital. Patient states that he has been having shortness of breath since yesterday and progressively worse throughout the night. Denied any complaints of chest pain. No headache or dizziness. No complaints of worsening abdominal pain. No nausea vomiting or diarrhea. Patient is currently on vancomycin IV for osteomyelitis. Chest x-ray showed multifocal airspace opacities concerning for pneumonia. EKG showed sinus tachycardia. Laboratory data showed WBCs 15.1 hemoglobin 8.4 and platelets 374 ABG showed pH 7.4 pCO2 32 PO259 and Sodium 139 potassium 4.2 chloride 113 bicarb is 20 BUN 2020 creatinine 2.95 and blood sugar 123, lactic acid 1.3, alk phos 269 troponin 0.012 and proBNP 10,100 and albumin 1.9 Patient was tachycardic with heart rate 122 and tachypneic with respiratory rate 43 on admission. 09/30/2024 Patient is on Airvo at 50 L oxygen 80% FiO2. Awake alert and oriented. No complaints of chest pain. Shortness of breath is better. Patient is able to communicate. Chest x-ray showed similar pulmonary edema. 2D echocardiogram showed normal LV size and systolic function. Renal ultrasound showed no evidence of acute obstructive uropathy. Atrophic left kidney with dilated collecting system as seen on prior CT. Friedman catheter in place with debris's. Patient is on antibiotics in the form of of ceftriaxone, azithromycin. Vancomycin has been discontinued due to ANUM.. Continued on IV Lasix 40 mg every 12. Laboratory data showed WBC 16.4 hemoglobin 7.5 and platelets 376 sodium 138 potassium 4.6 chloride 113 bicarb is 20 BUN 27 creatinine 3.16 and blood sugar 147 Urinalysis showed small blood nitrite negative large leukocyte esterase with RBCs 6 and WBCs 175. Patient does have indwelling Friedman catheter. Procalcitonin level 6.62 10/01/2024 Patient is in the medical floor. Awake alert and oriented. Currently on Airvo 50 L with 80% FiO2. Afebrile. Denies any complaints of chest pain. No nausea vomiting or diarrhea. Repeat chest x-ray today showed slightly worsened pulmonary edema. Patient is being continued on IV Lasix 40 mg Q8 hourly. Also antibiotics in the form of ceftriaxone and azithromycin. Laboratory data reviewed. 10/02/2024 Patient is awake alert and oriented. Remains on high flow oxygen 40 L at 45% FiO2.. No cough or sputum production. Afebrile. No chest pain or worsening shortness of breath.. Continues on IV Lasix 40 mg every 8 hourly. Also on antibiotics and follow-up ceftriaxone. Patient was seen by vascular surgery, recommends to continue wound care and IV antibiotics. Chest x-ray showed stable pulmonary edema. Laboratory data showed WBC 7.9 hemoglobin 6.6 and platelets 290 sodium 139 potassium 3.6 chloride 110 bicarb is 24 BUN 32 and creatinine 3.14 and blood sugar 270 and CBC was 45. Patient is being transfused with 1 unit of PRBC. 10/04/2024 Patient is lying in the bed. Awake alert and oriented x 3. Currently requiring 2 L oxygen via nasal cannula. No complaints of chest pain or shortness of breath. Feels better. No headache or dizziness or lightheadedness. Vancomycin level came down to 40.8 Laboratory data showed sodium 138 potassium 4.2 chloride 106 bicarb is 28 BUN 33 and creatinine 2.86. Patient is on antibiotics at home ceftriaxone. Please also on IV Lasix 40 mg every 8 hourly. ID nephrology and pulmonary is on board. Current medications reviewed. Objective - Vital Signs Vital signs: Vital Signs Temp 98.6 F 10/04/24 19:40 Pulse 90 10/04/24 19:40 Resp 18 10/04/24 19:40 BP 105/70 10/04/24 19:40 Pulse Ox 97 10/04/24 19:40 FiO2 40 10/02/24 20:33 Intake & Output 10/04/24 10/04/24 10/05/24 06:59 18:59 06:59 Intake Total 40 40 Output Total 900 550 Balance -860 -510 Weight 64.5 kg Intake: IV 40 40 Invasive Line 1 20 20 Invasive Line 2 20 20 Output: Urine 900 550 Other: Voiding Method Indwelling Catheter Urinal - Exam PHYSICAL EXAMINATION: Patient is lying in the bed,, no acute distress, awake alert and oriented. on Airvo. HEENT: Normocephalic. Neck is supple. Pupils reactive. Nostrils clear. Oral cavity is moist. Neck reveals no JVD, carotid bruits, or thyromegaly. CHEST EXAMINATION: Trachea is central. Symmetrical expansion. Bibasilar diminished sounds. No wheezing. No crackles. CARDIAC: Normal S1, S2 with no gallops. No murmurs ABDOMEN: Soft. Bowel sounds present, no organomegaly. No abdominal bruits. Extremities: reveal no edema. No clubbing or cyanosis Neurologically awake, alert, oriented x3. Able to move all extremities. No gross focal deficits noted Skin: No rash or skin lesions. Psychiatric: Coperative. Nonsuicidal Musculoskeletal: No joint swelling or deformity. Normal range of motion. - Labs CBC & Chem 7: 10/03/24 06:43 10/04/24 06:15 Labs: Abnormal Lab Results - Last 24 Hours (Table) 10/04/24 10/04/24 10/04/24 Range/Units 06:04 06:15 11:39 BUN 33 H (9-20) mg/dL Creatinine 2.86 H (0.66-1.25) mg/dL Glucose 140 H (74-99) mg/dL POC Glucose (mg/dL) 175 H 180 H (70-110) mg/dL Calcium 8.0 L (8.4-10.2) mg/dL Random Vancomycin 40.8 H* ug/mL 10/04/24 10/04/24 Range/Units 16:31 20:01 BUN (9-20) mg/dL Creatinine (0.66-1.25) mg/dL Glucose (74-99) mg/dL POC Glucose (mg/dL) 231 H 203 H (70-110) mg/dL Calcium (8.4-10.2) mg/dL Random Vancomycin ug/mL Microbiology - Last 24 Hours (Table) 09/29/24 10:37 Blood Culture - Final Blood Assessment and Plan Assessment: Acute hypoxemic respiratory failure requiring BiPAP due to fluid load and multifocal pneumonia. Chest x-ray showed pulmonary edema. Procalcitonin level is elevated. Patient was Airvo, currently transition to oxygen via nasal cannula. Acute kidney injury possibly ATN and toxicity due to vancomycin Acute on chronic CHF with preserved ejection fraction Recent left lower extremity toe ambulation and osteomyelitis. Currently hold vancomycin Previous history of moderate left hydronephrosis Hypertension Diabetes type 2 COPD History of CVA/TIA with slurred speech Bilateral peripheral neuropathy Recurrent pancreatitis and pancreatic pseudocyst Chronic alcoholic liver disease Morphine pain pump Anxiety/depression History of heavy alcohol abuse Current everyday smoker DVT prophylaxis with heparin subcu Plan: Patient is oxygen via nasal cannula.. Continue with antibiotics ceftriaxone, azithromycin. Vancomycin has been discontinued due to ANUM. Vancomycin toxicity improving. Continue with IV Lasix Q8 hourly and monitor renal function closely. Continue with insulin sliding scale. Pain management and follow-up closely. Continue with wound care. Follow-up cultures from the [facility]. ID, nephrology and pulmonary team is on board.. Prognosis is guarded with multiple medical problems and comorbid conditions. Time with Patient: Greater than 30
[2024-10-04] MEDS: NYSTATIN 100,000 UNIT/ML SUSP 500,000 UNIT/5 ML CUP PO SCH (21:36)
[2024-10-05 06:11] LABS: Glucose,Whole Blood 148 mg/dL (70-110)
[2024-10-05 07:22] LABS: Basophils # (A) 0.05 10*3/uL (0.00-0.10); Basophils % (A) 0.5 %; Eosinophils # (A) 0.28 10*3/uL (0.04-0.35); Eosinophils % (A) 2.8 %; HCT 28.5 % (39.6-50.0); Lymphocytes % (A) 13.8 %; MCH 29.4 pg (27.0-32.0); MCHC 31.6 g/dL (32.0-37.0); MCV 93.1 fL (80.0-97.0); Mean Platelet Volume 11.1 fL (9.5-12.2); Monocytes # (A) 0.62 10*3/uL (0.20-1.00); Monocytes % (A) 6.1 %; Neutrophils # (A) 7.57 10*3/uL (1.80-7.70); Neutrophils % (A) 74.2 %; Platelet Count 315 10*3/uL (140-440); RBC 3.06 10*6/uL (4.40-5.60); RDW 21.2 % (11.5-14.5); WBC 10.18 10*3/uL (4.50-10.00)
[2024-10-05 07:38] LABS: African American GFR (CKD) 28 (>60 ml/min/1.73 sqM); Anion Gap 3 mmol/L; Blood Urea Nitrogen 34 mg/dL (9-20); Carbon Dioxide 28 mmol/L (22-30); Chloride 104 mmol/L (98-107); Glucose 129 mg/dL (74-99); Non-African American GFR(CKD) 25 (>60 ml/min/1.73 sqM); Sodium 135 mmol/L (137-145)
[2024-10-05 11:25] LABS: Glucose,Whole Blood 209 mg/dL (70-110)
--- NOTE | 2024-10-05 12:14 | P.PN ---
Subjective Progress Note Date: 10/05/24 Patient is seen for follow-up for acute kidney injury secondary to vancomycin toxicity and hypotension. No new complaints, feeling better overall. Patient is awake, comfortable, no acute distress Examination of the heart S1 and S2 Examination of the lungs bilateral breath sounds are heard, decreased breath sounds at the bases Abdomen is soft nontender Examination lower extremity shows no edema, right foot is wrapped. Objective - Vital Signs Vital signs: Vital Signs Temp 98.2 F 10/05/24 09:06 Pulse 90 10/05/24 09:32 Resp 16 10/05/24 09:32 BP 114/74 10/05/24 09:06 Pulse Ox 100 10/05/24 09:06 FiO2 40 10/02/24 20:33 Intake & Output 10/04/24 10/05/24 10/05/24 18:59 06:59 18:59 Intake Total 40 40 10 Output Total 550 900 Balance -510 40 -890 Weight 66.5 kg Intake: IV 40 40 10 Invasive Line 1 20 20 Invasive Line 2 20 20 10 Output: Urine 550 900 Other: Voiding Method Urinal Urinal Indwelling Catheter Indwelling Catheter - Labs CBC & Chem 7: 10/05/24 07:04 10/05/24 07:04 Labs: Abnormal Lab Results - Last 24 Hours (Table) 10/04/24 10/04/24 10/04/24 Range/Units 11:39 16:31 20:01 WBC (4.50-10.00) 10*3/uL RBC (4.40-5.60) 10*6/uL Hgb (13.0-17.0) g/dL Hct (39.6-50.0) % MCHC (32.0-37.0) g/dL Immature Gran # (0.00-0.04) 10*3/uL Sodium (137-145) mmol/L BUN (9-20) mg/dL Creatinine (0.66-1.25) mg/dL Glucose (74-99) mg/dL POC Glucose (mg/dL) 180 H 231 H 203 H (70-110) mg/dL Calcium (8.4-10.2) mg/dL 10/05/24 10/05/24 10/05/24 Range/Units 06:08 07:04 07:04 WBC 10.18 H (4.50-10.00) 10*3/uL RBC 3.06 L (4.40-5.60) 10*6/uL Hgb 9.0 L (13.0-17.0) g/dL Hct 28.5 L (39.6-50.0) % MCHC 31.6 L (32.0-37.0) g/dL Immature Gran # 0.26 H (0.00-0.04) 10*3/uL Sodium 135 L (137-145) mmol/L BUN 34 H (9-20) mg/dL Creatinine 2.76 H (0.66-1.25) mg/dL Glucose 129 H (74-99) mg/dL POC Glucose (mg/dL) 148 H (70-110) mg/dL Calcium 8.0 L (8.4-10.2) mg/dL Microbiology - Last 24 Hours (Table) 09/29/24 10:37 Blood Culture - Final Blood Assessment and Plan Assessment: 1. Acute kidney injury secondary to vancomycin toxicity with vancomycin level at 68.6 , nonoliguric. Component of ischemic ATN also present from hypotension. Previous creatinine 1.0 on 09/25/2024. UA shows WBCs 175, small blood no protein. Ultrasound of the kidneys did not show any obstructive uropathy on the right kidney. Patient has had chronic dilated left collecting system. This appears to be stable from January of last year. 2. Acute hypoxic respiratory failure secondary to CHF exacerbation, maintained on IV Lasix and improved. Possible underlying pneumonia for which patient is maintained on antibiotics 3. History of urinary retention with previous history of suprapubic catheter which was removed. Patient had 500 mL of urine on straight catheterization and indwelling Friedman catheter has been placed. 4. History of EtOH abuse 5. History of osteomyelitis of the right fifth toe status post amputation 6. Pyuria in the patient who self catheterizes Plan: Continue to avoid nephrotoxic agents Goal vancomycin level <20, yesterday down to 41 from 47 Decrease IV Lasix to 40mg BID Continue antibiotics for possible pneumonia Repeat labs in a.m. Continue with Friedman catheter
--- NOTE | 2024-10-05 14:08 | P.PN ---
Subjective Progress Note Date: 10/05/24 Patient is a 54-year-old male with complex past medical history including COPD, nicotine dependence, CVA/TIA, alcohol abuse, recurrent pancreatitis with pancreatic pseudocyst, urinary retention with previous suprapubic catheter, chronic pain with morphine pump. He is currently in some respiratory distress on BiPAP, unable to answer questioning. Reportedly, sent in from [facility] on the [facility]. Recently, underwent right fifth toe amputation for osteomyelitis, and was receiving IV antibiotics. Noted to be hypoxic at the outside facility, with an SpO2 of 66%. He was placed on BiPAP on arrival to the emergency department. Workup in the emergency department including a chest x-ray showing diffuse inf iltrates bilaterally concerning for pulmonary edema versus multifocal pneumonia. CBC: WBC count 15.2, hemoglobin 8.4, platelets 374. CMP: Sodium 139, potassium 4.2, chloride 113, serum bicarb 20, BUN 22, creatinine 2.95, glucose 123. Appears patient is sustained acute kidney injury. He did have a indwelling urinary catheter placed. Ultrasound of kidneys and bladder showing atrophic left kidney with dilated collecting system, chronic. In place mullins catheter with debris. NT proBNP was elevated at 10,100. Procalcitonin 6.62. Placed on empiric antibiotics in the ED in the form of azithromycin and Rocephin. Also, started on Lasix 40 mg twice daily. Most recent available echocardiogram from 2020 estimating preserved left ventricular ejection fraction of 55 to 60% with grade 1 diastolic dysfunction. Patient currently being evaluated on the cardiac stepdown unit. Appears to be anxious in some respiratory distress. He is on BiPAP with settings 12/5 and FiO2 40%. Previous ABGs done on the settings include a PaO2 of 59, pCO2 of 32, pH of 7.41. He is pulling at the mask, we are going to try and transition him over to Airvo. On 10/01/2024, the patient is being seen for a follow-up. The patient remains on Airvo and the patient is currently on 50 L with an FiO2 of 80%. Repeat chest x- ray from today still showing evidence of interstitial edema with pulm vascular congestion, probably slightly worse compared to yesterday. Nevertheless, his respiratory status is stable and the patient denies having any worsening shortness of breath. The patient is being treated for underlying urine tract infection. Urine cultures and blood culture still pending. Meanwhile, he still has a Mullins catheter in place. Repeat creatinine from today is at 3.13, essentially unchanged compared to yesterday. The white cell count remains stable at 16.5 with a hemoglobin 7.5. The patient remains on IV Rocephin. He is also receiving Lasix 40 mg IV every 8 hours. He is producing adequate amount of urine output and the patient has been negative fluid balance of 1.5 L over the past 24 hours. No other new complaints otherwise for now. Early Intervention Specialist on the case. The patient has been taken off vancomycin. Follow-up chest x-ray in AM. Echocardiogram was also completed and the patient was found to have a preserved LV function with an EF of around 55 to 60% with normal LV function, normal RV function without any significant valvular abnormalities. On 10/02/2024, the patient is being seen for a follow-up. The patient remains on Airvo. The patient has a nonoliguric acute kidney injury. The patient continues to develop a good urine output while being on IV Lasix 40 mg every 8 hours. Fluid balance is -1.3 L over the past 24 hours. Slight improvement in oxygenation and the patient remains on Airvo at 40 L with an FiO2 of 40%. Chest x-ray shows interstitial edema/fluid overload. Cultures are still pending. The blood cultures are negative. The white cell count is at 7.9 with a hemoglobin of 6.6 and a platelet count of 290. BUN is 32 with a creatinine of 3.1 and a sodium levels at 139. Vancomycin level was toxic initially at 68 and currently at 47. Meanwhile, the patient remains on IV Rocephin. Able to communicate. No significant complaints. Vascular surgery and infectious disease are also on the case regarding right lower extremity osteomyelitis of the right fifth toe for which the patient had undergone amputation. Mullins catheter is still in place. No evidence of any exogenous bleeding. No evidence of any GI bleeding. On 10/03/2024, the patient is being seen for a follow-up. Since yesterday, the patient is improved and the patient was taken off Airvo and the patient is currently on oxygen which is being delivered at 2 L/min nasal cannula with a pu lse ox of 98%. The patient is also producing adequate amount of urine output. Fluid balance is negative and the patient's renal function is improved compared to yesterday. The creatinine is down to 2.9 with a BUN of 32 and sodium is at 137. The white cell count is at 10.2 with a hemoglobin of 9.7. Blood cultures are negative. The patient remains on Lasix 40 mg IV every 8 hours. The patient remains on Symbicort and empiric antibiotic coverage with IV Rocephin. He is also on DuoNeb nebulizer treatments [id number]. No other significant events otherwise for now. The patient is feeling better. No significant shortness of breath on today's evaluation. On 10/04/2024, the patient is being seen for a follow-up. The patient is stable, off Airvo and the patient remains on nasal cannula currently on 2 L. Resting comfortably in bed. And the patient is currently on 2 L of oxygen by nasal cannula. The patient remains on IV Lasix 40 mg every 8 hours. Fluid balance remains negative. Creatinine is improving slowly and the BUN is at 33 with a creatinine of 2.8. Random vancomycin level is still elevated at 40.8. Electrolytes are within normal limits. The patient is afebrile. Blood cultures turned out to be completely negative. Remains on IV Rocephin as an empiric antibiotic coverage. Rest of the medications remain essentially unchanged. Resting comfortably in bed. Denies having any chest pain or shortness of breath. No altered mentation. Chronically debilitated and there is ongoing generalized weakness On 10/05/2024, the patient remained stable on 2 L of oxygen by nasal cannula. The patient was further transition to room air oxygen. Doing well. No specific complaints. No respiratory distress. Creatinine continues to improve slowly and the creatinine is down to 2.7 with a BUN of 34. Sodium is at 135. The white cell count is at 10.12 with a hemoglobin of 9. The fluid balance is negative and the patient has a Mullins catheter in place. Remains on IV Rocephin. Remains on Lasix 40 mg IV every 12 hours. Rest of the medications remain essentially unchanged. Objective - Vital Signs Vital signs: Vital Signs Temp 98.2 F 10/05/24 09:06 Pulse 90 10/05/24 09:32 Resp 16 10/05/24 09:32 BP 114/74 10/05/24 09:06 Pulse Ox 100 10/05/24 09:06 FiO2 40 10/02/24 20:33 Intake & Output 10/04/24 10/05/24 10/05/24 18:59 06:59 18:59 Intake Total 40 40 10 Output Total 550 900 Balance -510 40 -890 Weight 66.5 kg Intake: IV 40 40 10 Invasive Line 1 20 20 Invasive Line 2 20 20 10 Output: Urine 550 900 Other: Voiding Method Urinal Urinal Indwelling Catheter Indwelling Catheter - Exam GENERAL EXAM: Anxious, 54-year-old male on 2 L of oxygen by nasal cannula HEAD: Normocephalic and atraumatic EYES: Normal reaction of pupils, equal size. NOSE: Clear with pink turbinates. THROAT: No erythema or exudates. NECK: No masses, no JVD. CHEST: No chest wall deformity. LUNGS: Equal air entry with diffuse coarse rhonchi heard bilaterally and throughout. Improved aeration bilaterally CVS: S1 and S2 normal with no audible murmur, regular rhythm. No extra heart sounds ABDOMEN: No hepatosplenomegaly, active bowel sounds, no guarding or rigidity. SPINE: No scoliosis or deformity SKIN: No rashes CENTRAL NERVOUS SYSTEM: No focal deficits, tone is normal in all 4 extremities. EXTREMITIES: There is no peripheral edema, clubbing, or cyanosis. Peripheral pulses are intact. Previous right fifth great toe amputation. Adherent slough, no significant undermining or tunneling. - Labs CBC & Chem 7: 10/05/24 07:04 10/05/24 07:04 Labs: Abnormal Lab Results - Last 24 Hours (Table) 10/04/24 10/04/24 10/04/24 Range/Units 11:39 16:31 20:01 WBC (4.50-10.00) 10*3/uL RBC (4.40-5.60) 10*6/uL Hgb (13.0-17.0) g/dL Hct (39.6-50.0) % MCHC (32.0-37.0) g/dL Immature Gran # (0.00-0.04) 10*3/uL Sodium (137-145) mmol/L BUN (9-20) mg/dL Creatinine (0.66-1.25) mg/dL Glucose (74-99) mg/dL POC Glucose (mg/dL) 180 H 231 H 203 H (70-110) mg/dL Calcium (8.4-10.2) mg/dL 10/05/24 10/05/24 10/05/24 Range/Units 06:08 07:04 07:04 WBC 10.18 H (4.50-10.00) 10*3/uL RBC 3.06 L (4.40-5.60) 10*6/uL Hgb 9.0 L (13.0-17.0) g/dL Hct 28.5 L (39.6-50.0) % MCHC 31.6 L (32.0-37.0) g/dL Immature Gran # 0.26 H (0.00-0.04) 10*3/uL Sodium 135 L (137-145) mmol/L BUN 34 H (9-20) mg/dL Creatinine 2.76 H (0.66-1.25) mg/dL Glucose 129 H (74-99) mg/dL POC Glucose (mg/dL) 148 H (70-110) mg/dL Calcium 8.0 L (8.4-10.2) mg/dL Microbiology - Last 24 Hours (Table) 09/29/24 10:37 Blood Culture - Final Blood Assessment and Plan Assessment: Acute hypoxemic respiratory failure, initially on BiPAP later on on Airvo and currently weaned down to 2 L of oxygen by nasal cannula. Clinically improving. No significant shortness of breath at rest. Dyspnea secondary to above, currently stable, improved Chronic obstructive pulmonary disease, stable Acute kidney injury, nonoliguric acute kidney injury due to vancomycin induced nephrotoxicity and the ultrasound of kidneys and bladder showing atrophic left kidney with dilated collecting system, chronic. Mullins catheter was in place with debris. The patient remains on empiric antibiotic coverage with IV Rocephin. Blood cultures negative. Urine culture has not been performed. Renal function is improved compared to yesterday. Vancomycin level remains elevated, random draw and the patient continues to produce adequate amount of urine output while being on IV Lasix. Chronic urinary retention with previous suprapubic catheter. This was reversed and patient intermittently straight caths. The patient currently has a Mullins catheter in place. Ruled underlying urine tract infection the patient remains on IV Rocephin History osteomyelitis and right fifth toe amputation, vascular surgery and ID are both on the case Acute leukocytosis, improved Chronic anemia, hemoglobin has dropped down to 6.6 and the patient was given a unit of packed RBC. Hemoglobin remained stable History of chronic pancreatitis with pancreatic pseudocyst History of alcohol abuse History of CVA/TIA Chronic pain with morphine pump Tobacco dependence Plan: Wean down the FiO2 further and try the patient on room air oxygen Continue IV Rocephin Continue IV Lasix 40 mg every 12 hours Monitor urine output, continues to produce adequate urine output and the patient remains in a negative fluid balance Vancomycin level remains quite elevated, vancomycin has been discontinued Remains on IV Rocephin, empiric Hemoglobin is stable and the patient received a unit of packed RBC during this current hospitalization Infectious disease consulted Nephrology is consulted Consult wound care Echo was noted and the patient has a preserved LV function Prognosis is guarded secondary to above-mentioned comorbidities. Time with Patient: Greater than 30
--- NOTE | 2024-10-05 15:43 | P.PN ---
Subjective Progress Note Date: 10/05/24 Principal diagnosis: Reason for follow-up is right diabetic foot infection/osteo and pneumonia Patient is a 54-year-old male with a past medical history significant for COPD diabetes mellitus hypertension hyperlipidemia rheumatoid arthritis in this patient who is status post right fifth toe amputation for a right gangrene done at [facility] patient local culture positive for coagulase- negative staph blood culture negative and the patient was getting vancomycin IV at the group home not being admitted to hospital with worsening shortness of breath concerning for pneumonia and also have evidence of acute kidney injury. On today's evaluation that is 10/05/2024,the patient remains to be afebrile, patient is on room air not requiring supplemental oxygen and denies any shortness of breath no chest pain or cough.Patient denies having any nausea or vomiting, no abdominal pain and no diarrhea has been reported. Patient white count is 10.18 creatinine is 2.76 Objective - Vital Signs Vital signs: Vital Signs Temp 98.2 F 10/05/24 15:40 Pulse 94 10/05/24 15:40 Resp 16 10/05/24 15:40 BP 109/67 10/05/24 15:40 Pulse Ox 95 10/05/24 15:40 FiO2 40 10/02/24 20:33 Intake & Output 10/04/24 10/05/24 10/05/24 18:59 06:59 18:59 Intake Total 40 40 20 Output Total 550 900 Balance -510 40 -880 Weight 66.5 kg Intake: IV 40 40 20 Invasive Line 1 20 20 Invasive Line 2 20 20 20 Output: Urine 550 900 Other: Voiding Method Urinal Urinal Indwelling Catheter Indwelling Catheter - Exam GENERAL DESCRIPTION: Middle-age male lying in bed in no distress RESPIRATORY SYSTEM: Unlabored breathing , decreased breath sounds at bases HEART: S1 S2 regular rate and rhythm , ABDOMEN: Soft , no tenderness EXTREMITIES: Wounds currently dressed - Labs CBC & Chem 7: 10/05/24 07:04 10/05/24 07:04 Labs: Abnormal Lab Results - Last 24 Hours (Table) 10/04/24 10/04/24 10/05/24 Range/Units 16:31 20:01 06:08 WBC (4.50-10.00) 10*3/uL RBC (4.40-5.60) 10*6/uL Hgb (13.0-17.0) g/dL Hct (39.6-50.0) % MCHC (32.0-37.0) g/dL Immature Gran # (0.00-0.04) 10*3/uL Sodium (137-145) mmol/L BUN (9-20) mg/dL Creatinine (0.66-1.25) mg/dL Glucose (74-99) mg/dL POC Glucose (mg/dL) 231 H 203 H 148 H (70-110) mg/dL Calcium (8.4-10.2) mg/dL 10/05/24 10/05/24 10/05/24 Range/Units 07:04 07:04 11:24 WBC 10.18 H (4.50-10.00) 10*3/uL RBC 3.06 L (4.40-5.60) 10*6/uL Hgb 9.0 L (13.0-17.0) g/dL Hct 28.5 L (39.6-50.0) % MCHC 31.6 L (32.0-37.0) g/dL Immature Gran # 0.26 H (0.00-0.04) 10*3/uL Sodium 135 L (137-145) mmol/L BUN 34 H (9-20) mg/dL Creatinine 2.76 H (0.66-1.25) mg/dL Glucose 129 H (74-99) mg/dL POC Glucose (mg/dL) 209 H (70-110) mg/dL Calcium 8.0 L (8.4-10.2) mg/dL Microbiology - Last 24 Hours (Table) 09/29/24 10:37 Blood Culture - Final Blood Assessment and Plan (1) Foot osteomyelitis, right Current Visit: Yes Status: Acute Code(s): M86.9 - OSTEOMYELITIS, UNSPECIFIED SNOMED Code(s): 2081877383419331 (2) Pneumonia Current Visit: Yes Status: Acute Code(s): J18.9 - PNEUMONIA, UNSPECIFIED ORGANISM SNOMED Code(s): 746159540 (3) Type 2 diabetes mellitus with foot ulcer Current Visit: Yes Status: Acute Code(s): E11.621 - TYPE 2 DIABETES MELLITUS WITH FOOT ULCER; L97.509 - NON-PRESSURE CHRONIC ULCER OTH PRT UNSP FOOT W UNSP SEVERITY SNOMED Code(s): 8746593920277 Plan: 1patient with right fifth toe wet gangrene and diabetic foot infection status post right fifth toe amputation at the outside facility with the patient was getting vancomycin outpatient setting up with the acute kidney injury secondary to vancomycin culture with coagulase-negative staph blood culture negative. 2-patient with shortness of breath and hypoxemia which is likely multifactorial concern for possible component of pneumonia. 3 patient is afebrile patient kidney function slowly improving vancomycin random still significantly elevated as of yesterday will repeat level tomorrow for now monitor closely off vancomycin Dictation was produced using [employer] dictation software. please excuse any grammatical, word or spelling errors. Time with Patient: Less than 30
[2024-10-05 16:09] LABS: Glucose,Whole Blood 214 mg/dL (70-110)
[2024-10-05 20:00] LABS: Glucose,Whole Blood 217 mg/dL (70-110)
[2024-10-05] MEDS: FUROSEMIDE 10 MG/ML 4 ML VIAL IV SCH (20:59)
--- NOTE | 2024-10-05 23:01 | P.PN ---
Subjective Progress Note Date: 10/05/24 Patient is a 54-year-old male with a known history of alcoholic liver disease, pancreatic pseudocyst, recurrent pancreatitis, hypertension, hyperlipidemia, diabetes type 2, COPD, history of CVA/TIA with slurred speech, bilateral peripheral neuropathy, chronic low back pain, BPH, morphine pain pump, history of GI bleed, anxiety/depression and current everyday smoker and history of heavy alcohol abuse. Patient was sent from [facility] where he is currently recovering from a cellulitis and amputation of the left toe. Apparently was found to be hypoxic with pulse ox 66% at the [facility] and was sent to ER. Patient was placed on BiPAP en route to the hospital. Patient states that he has been having shortness of breath since yesterday and progressively worse throughout the night. Denied any complaints of chest pain. No headache or dizziness. No complaints of worsening abdominal pain. No nausea vomiting or diarrhea. Patient is currently on vancomycin IV for osteomyelitis. Chest x-ray showed multifocal airspace opacities concerning for pneumonia. EKG showed sinus tachycardia. Laboratory data showed WBCs 15.1 hemoglobin 8.4 and platelets 374 ABG showed pH 7.4 pCO2 32 PO259 and Sodium 139 potassium 4.2 chloride 113 bicarb is 20 BUN 2020 creatinine 2.95 and blood sugar 123, lactic acid 1.3, alk phos 269 troponin 0.012 and proBNP 10,100 and albumin 1.9 Patient was tachycardic with heart rate 122 and tachypneic with respiratory rate 43 on admission. 09/30/2024 Patient is on Airvo at 50 L oxygen 80% FiO2. Awake alert and oriented. No complaints of chest pain. Shortness of breath is better. Patient is able to communicate. Chest x-ray showed similar pulmonary edema. 2D echocardiogram showed normal LV size and systolic function. Renal ultrasound showed no evidence of acute obstructive uropathy. Atrophic left kidney with dilated collecting system as seen on prior CT. Friedman catheter in place with debris's. Patient is on antibiotics in the form of of ceftriaxone, azithromycin. Vancomycin has been discontinued due to ANUM.. Continued on IV Lasix 40 mg every 12. Laboratory data showed WBC 16.4 hemoglobin 7.5 and platelets 376 sodium 138 potassium 4.6 chloride 113 bicarb is 20 BUN 27 creatinine 3.16 and blood sugar 147 Urinalysis showed small blood nitrite negative large leukocyte esterase with RBCs 6 and WBCs 175. Patient does have indwelling Friedman catheter. Procalcitonin level 6.62 10/01/2024 Patient is in the medical floor. Awake alert and oriented. Currently on Airvo 50 L with 80% FiO2. Afebrile. Denies any complaints of chest pain. No nausea vomiting or diarrhea. Repeat chest x-ray today showed slightly worsened pulmonary edema. Patient is being continued on IV Lasix 40 mg Q8 hourly. Also antibiotics in the form of ceftriaxone and azithromycin. Laboratory data reviewed. 10/02/2024 Patient is awake alert and oriented. Remains on high flow oxygen 40 L at 45% FiO2.. No cough or sputum production. Afebrile. No chest pain or worsening shortness of breath.. Continues on IV Lasix 40 mg every 8 hourly. Also on antibiotics and follow-up ceftriaxone. Patient was seen by vascular surgery, recommends to continue wound care and IV antibiotics. Chest x-ray showed stable pulmonary edema. Laboratory data showed WBC 7.9 hemoglobin 6.6 and platelets 290 sodium 139 potassium 3.6 chloride 110 bicarb is 24 BUN 32 and creatinine 3.14 and blood sugar 270 and CBC was 45. Patient is being transfused with 1 unit of PRBC. 10/04/2024 Patient is lying in the bed. Awake alert and oriented x 3. Currently requiring 2 L oxygen via nasal cannula. No complaints of chest pain or shortness of breath. Feels better. No headache or dizziness or lightheadedness. Vancomycin level came down to 40.8 Laboratory data showed sodium 138 potassium 4.2 chloride 106 bicarb is 28 BUN 33 and creatinine 2.86. Patient is on antibiotics at home ceftriaxone. Please also on IV Lasix 40 mg every 8 hourly. ID nephrology and pulmonary is on board. 10/05/2024 Patient is resting in bed. Awake alert and oriented. No complaints of chest pain or shortness of breath. No fever no chills. No cough or sputum production. Patient was on 2 L oxygen via nasal cannula, transitioning to room air and is saturating at 94%. No other acute overnight issues. Patient is bein g continued on antibiotics normal ceftriaxone and IV diuresis with Lasix 40 mg every 12. Pain is controlled. Patient has morphine pain pump, [place] 5 every 6 as needed and Ativan 0.5 every 4 as needed anxiety. Laboratory data showed WBC 10.1 hemoglobin 9.0 and platelets 315 BUN 34 and creatinine 2.76 and blood sugar 129 and calcium 8.0. Current medications reviewed. Objective - Vital Signs Vital signs: Vital Signs Temp 98.2 F 10/05/24 15:40 Pulse 94 10/05/24 15:40 Resp 16 10/05/24 15:40 BP 109/67 10/05/24 15:40 Pulse Ox 95 10/05/24 15:40 FiO2 40 10/02/24 20:33 Intake & Output 10/05/24 10/05/24 10/06/24 06:59 18:59 06:59 Intake Total 40 257 Output Total 1400 Balance 40 -1143 Weight 66.5 kg Intake: IV 40 20 Invasive Line 1 20 Invasive Line 2 20 20 Oral 237 Output: Urine 1400 Other: Voiding Method Urinal Indwelling Catheter Indwelling Catheter - Exam PHYSICAL EXAMINATION: Patient is lying in the bed,, no acute distress, awake alert and oriented. on Airvo. HEENT: Normocephalic. Neck is supple. Pupils reactive. Nostrils clear. Oral cavity is moist. Neck reveals no JVD, carotid bruits, or thyromegaly. CHEST EXAMINATION: Trachea is central. Symmetrical expansion. Bibasilar d iminished sounds. No wheezing. No crackles. CARDIAC: Normal S1, S2 with no gallops. No murmurs ABDOMEN: Soft. Bowel sounds present, no organomegaly. No abdominal bruits. Extremities: reveal no edema. No clubbing or cyanosis Neurologically awake, alert, oriented x3. Able to move all extremities. No gross focal deficits noted Skin: No rash or skin lesions. Psychiatric: Coperative. Nonsuicidal Musculoskeletal: No joint swelling or deformity. Normal range of motion. - Labs CBC & Chem 7: 10/05/24 07:04 10/05/24 07:04 Labs: Abnormal Lab Results - Last 24 Hours (Table) 10/05/24 10/05/24 10/05/24 Range/Units 06:08 07:04 07:04 WBC 10.18 H (4.50-10.00) 10*3/uL RBC 3.06 L (4.40-5.60) 10*6/uL Hgb 9.0 L (13.0-17.0) g/dL Hct 28.5 L (39.6-50.0) % MCHC 31.6 L (32.0-37.0) g/dL Immature Gran # 0.26 H (0.00-0.04) 10*3/uL Sodium 135 L (137-145) mmol/L BUN 34 H (9-20) mg/dL Creatinine 2.76 H (0.66-1.25) mg/dL Glucose 129 H (74-99) mg/dL POC Glucose (mg/dL) 148 H (70-110) mg/dL Calcium 8.0 L (8.4-10.2) mg/dL 10/05/24 10/05/24 10/05/24 Range/Units 11:24 16:08 19:57 WBC (4.50-10.00) 10*3/uL RBC (4.40-5.60) 10*6/uL Hgb (13.0-17.0) g/dL Hct (39.6-50.0) % MCHC (32.0-37.0) g/dL Immature Gran # (0.00-0.04) 10*3/uL Sodium (137-145) mmol/L BUN (9-20) mg/dL Creatinine (0.66-1.25) mg/dL Glucose (74-99) mg/dL POC Glucose (mg/dL) 209 H 214 H 217 H (70-110) mg/dL Calcium (8.4-10.2) mg/dL Microbiology - Last 24 Hours (Table) 09/29/24 10:37 Blood Culture - Final Blood Assessment and Plan Assessment: Acute hypoxemic respiratory failure requiring BiPAP due to fluid load and multifocal pneumonia. Chest x-ray showed pulmonary edema. Procalcitonin level is elevated. Patient was Airvo, currently transition to oxygen via nasal cannula. Acute kidney injury possibly ATN and toxicity due to vancomycin Acute on chronic CHF with preserved ejection fraction Recent left lower extremity toe ambulation and osteomyelitis. Currently hold vancomycin Previous history of moderate left hydronephrosis Hypertension Diabetes type 2 COPD History of CVA/TIA with slurred speech Bilateral peripheral neuropathy Recurrent pancreatitis and pancreatic pseudocyst Chronic alcoholic liver disease Morphine pain pump Anxiety/depression History of heavy alcohol abuse Current everyday smoker DVT prophylaxis with heparin subcu Plan: Patient is oxygen via nasal cannula.. Continue with antibiotics ceftriaxone, azithromycin. Vancomycin has been discontinued due to ANUM. Vancomycin toxicity improving. Continue with IV Lasix Q8 hourly and monitor renal function closely. Continue with insulin sliding scale. Pain management and follow-up closely. Continue with wound care. ID, nephrology and pulmonary team is on board.. Prognosis is guarded with multiple medical problems and comorbid conditions. Anticipate discharge to rehab in the next 24 hours. Time with Patient: Greater than 30
[2024-10-06 06:08] LABS: Glucose,Whole Blood 163 mg/dL (70-110)
[2024-10-06 06:57] LABS: Basophils # (A) 0.06 10*3/uL (0.00-0.10); Basophils % (A) 0.6 %; Eosinophils # (A) 0.24 10*3/uL (0.04-0.35); Eosinophils % (A) 2.5 %; HCT 26.5 % (39.6-50.0); HGB 8.4 g/dL (13.0-17.0); Lymphocytes # (A) 1.66 10*3/uL (0.90-5.00); Lymphocytes % (A) 17.2 %; MCH 29.4 pg (27.0-32.0); MCHC 31.7 g/dL (32.0-37.0); MCV 92.7 fL (80.0-97.0); Mean Platelet Volume 10.2 fL (9.5-12.2); Monocytes # (A) 0.74 10*3/uL (0.20-1.00); Monocytes % (A) 7.7 %; Neutrophils # (A) 6.73 10*3/uL (1.80-7.70); Neutrophils % (A) 69.8 %; Platelet Count 325 10*3/uL (140-440); RBC 2.86 10*6/uL (4.40-5.60); RDW 21.2 % (11.5-14.5); WBC 9.64 10*3/uL (4.50-10.00)
[2024-10-06 07:10] LABS: African American GFR (CKD) 29 (>60 ml/min/1.73 sqM); Anion Gap 6 mmol/L; Blood Urea Nitrogen 35 mg/dL (9-20); Calcium 8.2 mg/dL (8.4-10.2); Carbon Dioxide 27 mmol/L (22-30); Chloride 103 mmol/L (98-107); Glucose 130 mg/dL (74-99); Non-African American GFR(CKD) 25 (>60 ml/min/1.73 sqM); Potassium 4.2 mmol/L (3.5-5.1); Sodium 136 mmol/L (137-145)
[2024-10-06 08:51] VITALS: RESP 16; TEMP 98.2
[2024-10-06 11:47] LABS: Glucose,Whole Blood 185 mg/dL (70-110)
--- NOTE | 2024-10-06 12:48 | P.PN ---
Subjective Progress Note Date: 10/06/24 Patient is seen for follow-up for acute kidney injury secondary to vancomycin and ATN secondary to hypotension. No new complaints, feeling better overall. Objective - Vital Signs Vital signs: Vital Signs Temp 98.4 F 10/06/24 04:00 Pulse 73 10/06/24 04:00 Resp 17 10/06/24 04:00 BP 118/73 10/06/24 04:00 Pulse Ox 93 L 10/06/24 04:00 FiO2 40 10/02/24 20:33 Intake & Output 10/05/24 10/06/24 10/06/24 18:59 06:59 18:59 Intake Total 257 20 Output Total 1400 380 Balance -1143 -360 Weight 68.5 kg Intake: IV 20 20 Invasive Line 2 20 20 Oral 237 Output: Urine 1400 380 Other: Voiding Method Indwelling Catheter Indwelling Catheter # Voids 1 - Exam Patient is awake, comfortable, no acute distress Examination of the heart S1 and S2 Examination of the lungs bilateral breath sounds are heard, decreased breath sounds at the bases Abdomen is soft nontender Examination lower extremity shows no edema, right foot is wrapped. Friedman catheter in place with clear urine - Labs CBC & Chem 7: 10/06/24 06:24 10/06/24 06:24 Labs: Abnormal Lab Results - Last 24 Hours (Table) 10/05/24 10/05/24 10/05/24 Range/Units 11:24 16:08 19:57 RBC (4.40-5.60) 10*6/uL Hgb (13.0-17.0) g/dL Hct (39.6-50.0) % MCHC (32.0-37.0) g/dL Immature Gran # (0.00-0.04) 10*3/uL Sodium (137-145) mmol/L BUN (9-20) mg/dL Creatinine (0.66-1.25) mg/dL Glucose (74-99) mg/dL POC Glucose (mg/dL) 209 H 214 H 217 H (70-110) mg/dL Calcium (8.4-10.2) mg/dL 10/06/24 10/06/24 10/06/24 Range/Units 06:05 06:24 06:24 RBC 2.86 L (4.40-5.60) 10*6/uL Hgb 8.4 L (13.0-17.0) g/dL Hct 26.5 L (39.6-50.0) % MCHC 31.7 L (32.0-37.0) g/dL Immature Gran # 0.21 H (0.00-0.04) 10*3/uL Sodium 136 L (137-145) mmol/L BUN 35 H (9-20) mg/dL Creatinine 2.70 H (0.66-1.25) mg/dL Glucose 130 H (74-99) mg/dL POC Glucose (mg/dL) 163 H (70-110) mg/dL Calcium 8.2 L (8.4-10.2) mg/dL Assessment and Plan Assessment: 1. Nonoliguric acute kidney injury secondary to vancomycin toxicity, baseline c reatinine of 1 on 09/25/2024. UA shows WBCs 175, small blood no protein. Ultrasound of the kidneys did not show any obstructive uropathy on the right kidney. Patient has had chronic dilated left collecting system. This appears to be stable from January of last year. 2. ATN secondary to hypotension 3. Acute hypoxic respiratory failure secondary to CHF exacerbation(EF 55-60%), maintained on loop diuretics. Patient on antibiotics for possible underlying pneumonia. 4. History of urinary retention with previous use of suprapubic catheter which was removed, currently indwelling Friedman is placed 5. History of EtOH abuse 5. History of osteomyelitis of the right fifth toe status post amputation Plan: Avoid nephrotoxic agents including ACEs or ARB's Continue to monitor vancomycin level until less than 20, currently 31 Continue antibiotics Maintain Friedman catheter Repeat labs in a.m. I have seen and examined the patient with resident and agree with A&P as writ ten. Transition to po diuretics in the next 24 hours.
--- NOTE | 2024-10-06 14:46 | XR ---
EXAMINATION TYPE: XR chest 1V portable DATE OF EXAM: 10/06/2024 1:58 PM COMPARISON: 10/02/2024 CLINICAL INDICATION: Male, 54 years old with history of pulmonary edema, shortness of breath FINDINGS: Heart mildly enlarged. Spinal stimulator over a centimeter along the lower thoracic spinal canal. Rig ht PICC tip within the upper right atrium. Diffuse interstitial opacities. Patchy opacity right mid a nd lower lung. Overall aeration is improving from prior. IMPRESSION: CHF with residual mild interstitial pulmonary edema, considerable improvement from 10/02/2024. [facility], , 10/06/2024 2:44 PM
--- NOTE | 2024-10-06 15:53 | P.DS ---
Providers Date of admission: 09/29/24 11:08 Expected date of discharge: 10/06/24 Attending physician: Jamel Diallo Consults: 09/29/24 19:02 Consult Physician Routine Consulting Provider: Moody Leigh Consult Reason/Comments: ANUM Do you want consulting provider notified?: Yes 09/29/24 19:09 Consult Physician Routine Consulting Provider: Prabhakar Larios Consult Reason/Comments: Pneumonia, recent OM, ANUM on vanco Do you want consulting provider notified?: Yes 09/29/24 20:19 Consult Physician Routine Consulting Provider: Chandler Mendez Consult Reason/Comments: Respiratory failure, multifocal pneumonia, CHF Do you want consulting provider notified?: Yes 09/30/24 10:23 Consult Physician Routine Consulting Provider: Hamilton Vergara Consult Reason/Comments: Non-pressure ulcer with bone necrosis Do you want consulting provider notified?: Yes [facility] Course: Final diagnosis Acute hypoxemic respiratory failure requiring BiPAP due to fluid load and multifocal pneumonia. Chest x-ray showed pulmonary edema. Procalcitonin level is elevated. Patient was Airvo, currently transition to oxygen via nasal cannula. Acute kidney injury possibly ATN and toxicity due to vancomycin Acute on chronic CHF with preserved ejection fraction Recent left lower extremity toe ambulation and osteomyelitis. Vancomycin discontinued and patient will continue daptomycin for 4 more weeks per ID recommendations with outpatient follow-up with Dr. Vergara vascular surgery Previous history of moderate left hydronephrosis Hypertension Diabetes type 2 COPD History of CVA/TIA with slurred speech Bilateral peripheral neuropathy Recurrent pancreatitis and pancreatic pseudocyst Chronic alcoholic liver disease Morphine pain pump Anxiety/depression History of heavy alcohol abuse Current everyday smoker DVT prophylaxis with heparin subcu Discharge disposition Patient is being discharged in a stable condition with guarded prognosis to [facility]. Patient will follow-up with Dr. Mac Barragan in the outpatient setting upon discharge. Patient is to continue with IV daptomycin daily per ID recommendations for another 4 weeks with close outpatient follow-up with vascular surgery Dr. Vergara at the wound care center along with infectious disease outpatient. As scheduled. Total time taken is greater than 35 minutes. Hospital course Patient is a 54-year-old male with a known history of alcoholic liver disease, pancreatic pseudocyst, recurrent pancreatitis, hypertension, hyperlipidemia, diabetes type 2, COPD, history of CVA/TIA with slurred speech, bilateral peripheral neuropathy, chronic low back pain, BPH, morphine pain pump, history of GI bleed, anxiety/depression and current everyday smoker and history of heavy alcohol abuse. Patient was sent from retirement where he is currently recovering from a cellulitis and amputation of the left toe. Apparently was found to be hypoxic with pulse ox 66% at the retirement and was sent to ER. Patient was placed on BiPAP en route to the hospital. Patient states that he has been having shortness of breath since yesterday and progressively worse throughout the night. Denied any complaints of chest pain. No headache or dizziness. No complaints of worsening abdominal pain. No nausea vomiting or diarrhea. Patient is currently on vancomycin IV for osteomyelitis. Chest x-ray showed multifocal airspace opacities concerning for pneumonia. EKG showed sinus tachycardia. Laboratory data showed WBCs 15.1 hemoglobin 8.4 and platelets 374 ABG showed pH 7.4 pCO2 32 PO259 and Sodium 139 potassium 4.2 chloride 113 bicarb is 20 BUN 2020 creatinine 2.95 and blood sugar 123, lactic acid 1.3, alk phos 269 troponin 0.012 and proBNP 10,100 and albumin 1.9 Patient was tachycardic with heart rate 122 and tachypneic with respiratory rate 43 on admission. 09/30/2024 Patient is on Airvo at 50 L oxygen 80% FiO2. Awake alert and oriented. No complaints of chest pain. Shortness of breath is better. Patient is able to communicate. Chest x-ray showed similar pulmonary edema. 2D echocardiogram showed normal LV size and systolic function. Renal ultrasound showed no evidence of acute obstructive uropathy. Atrophic left kidney with dilated collecting system as seen on prior CT. Friedman catheter in place with debris's. Patient is on antibiotics in the form of of ceftriaxone, azithromycin. Vancomycin has been discontinued due to ANUM.. Continued on IV Lasix 40 mg every 12. Laboratory data showed WBC 16.4 hemoglobin 7.5 and platelets 376 sodium 138 potassium 4.6 chloride 113 bicarb is 20 BUN 27 creatinine 3.16 and blood sugar 147 Urinalysis showed small blood nitrite negative large leukocyte esterase with RBCs 6 and WBCs 175. Patient does have indwelling Friedman catheter. Procalcitonin level 6.62 10/01/2024 Patient is in the medical floor. Awake alert and oriented. Currently on Airvo 50 L with 80% FiO2. Afebrile. Denies any complaints of chest pain. No nausea vomiting or diarrhea. Repeat chest x-ray today showed slightly worsened pulmonary edema. Patient is being continued on IV Lasix 40 mg Q8 hourly. Also antibiotics in the form of ceftriaxone and azithromycin. Laboratory data reviewed. 10/02/2024 Patient is awake alert and oriented. Remains on high flow oxygen 40 L at 45% FiO2.. No cough or sputum production. Afebrile. No chest pain or worsening shortness of breath.. Continues on IV Lasix 40 mg every 8 hourly. Also on antibiotics and follow-up ceftriaxone. Patient was seen by vascular surgery, recommends to continue wound care and IV antibiotics. Chest x-ray showed stable pulmonary edema. Laboratory data showed WBC 7.9 hemoglobin 6.6 and platelets 290 sodium 139 potassium 3.6 chloride 110 bicarb is 24 BUN 32 and creatinine 3.14 and blood sugar 270 and CBC was 45. Patient is being transfused with 1 unit of PRBC. 10/04/2024 Patient is lying in the bed. Awake alert and oriented x 3. Currently requiring 2 L oxygen via nasal cannula. No complaints of chest pain or shortness of breath. Feels better. No headache or dizziness or lightheadedness. Vancomycin level came down to 40.8 Laboratory data showed sodium 138 potassium 4.2 chloride 106 bicarb is 28 BUN 33 and creatinine 2.86. Patient is on antibiotics at home ceftriaxone. Please also on IV Lasix 40 mg every 8 hourly. ID nephrology and pulmonary is on board. 10/05/2024 Patient is resting in bed. Awake alert and oriented. No complaints of chest pain or shortness of breath. No fever no chills. No cough or sputum production. Patient was on 2 L oxygen via nasal cannula, transitioning to room air and is saturating at 94%. No other acute overnight issues. Patient is being continued on antibiotics normal ceftriaxone and IV diuresis with Lasix 40 mg every 12. Pain is controlled. Patient has morphine pain pump, [place] 5 every 6 as needed and Ativan 0.5 every 4 as needed anxiety. Laboratory data showed WBC 10.1 hemoglobin 9.0 and platelets 315 BUN 34 and creatinine 2.76 and blood sugar 129 and calcium 8.0. 10/06/2024 Patient is seen in follow-up today currently sitting up in the chair continues with weakness being followed by infectious disease along with vascular surgery. Dressing was changed and patient will continue with current wound care recommendations with close outpatient follow-up with Jai in the outpatient setting. Patient has a PICC line and will receive IV daptomycin for 4 more weeks per ID recommendations and close outpatient follow-up. Recommend repeat labs in the next 1 to 2 days to monitor Vanco trough that was previously elevated at 31 and also monitor kidney functions with CBC, CMP, CRP, sed rate. As mentioned previously patient is to continue with wound care recommendations to the right foot ulcer wound by applying Santyl, saline moistened gauze, dry gauze and roll gauze secured with paper tape and change daily or more frequently if becoming soiled. Currently no reports of chest pain, shortness of breath, or palpitations. Patient is afebrile. No reports of nausea or vomiting and patient is tolerating diet. [facility] be [facility]. PHYSICAL EXAMINATION: Patient is lying in the bed,, no acute distress, awake alert and oriented. on Airvo. HEENT: Normocephalic. Neck is supple. Pupils reactive. Nostrils clear. Oral cavity is moist. Neck reveals no JVD, carotid bruits, or thyromegaly. CHEST EXAMINATION: Trachea is central. Symmetrical expansion. Bibasilar diminished sounds. No wheezing. No crackles. CARDIAC: Normal S1, S2 with no gallops. No murmurs ABDOMEN: Soft. Bowel sounds present, no organomegaly. No abdominal bruits. Extremities: reveal no edema. No clubbing or cyanosis Neurologically awake, alert, oriented x3. Able to move all extremities. No gross focal deficits noted Skin: No rash or skin lesions. Psychiatric: Coperative. Nonsuicidal Musculoskeletal: No joint swelling or deformity. Normal range of motion. Please refer to medication reconciliation sheet for a list of medications. The impression and plan of care has been dictated by Evita Huang, Nurse Practitioner as directed. Dr. Yung MD I have performed a history and examination and MDM of this patient, discussed the same with the dictator, and agree with the dictator's assessment and plan as written ,documented as a scribe. Based on total visit time, I have performed more than 50% of the visit. Patient Condition at Discharge: Fair Plan - Discharge Summary Discharge Rx Participant: No New Discharge Prescriptions: New Furosemide [Lasix] 40 mg PO DAILY #30 tablet Nystatin 100,000 Unit/ml Susp [Mycostatin Oral Susp] 500,000 unit PO QID ml HYDROcodone/APAP 5-325MG [[place] 5-325] 1 each PO Q6H PRN #4 tab PRN Reason: Pain cefTRIAXone [Rocephin] 1 gm IVPB Q24HR each DAPTOmycin [Cubicin] 411 mg IVPB Q24HR #35 each LORazepam [Ativan] 0.5 mg PO Q4H PRN #4 tab PRN Reason: Anxiety Heparin Sodium,Porcine (1 ml) [Heparin Sodium] 5,000 unit SQ Q8HR each INSULIN LISPRO (HumaLOG) [HumaLOG] 0 unit SQ ACHS each Collagenase [Santyl Ointment] 1 applic TOPICAL DAILY each Continue Tamsulosin HCl [Flomax] 0.4 mg PO DAILY Omeprazole [PriLOSEC] 20 mg PO BID@0900,2100 amantadine HCL [Amantadine] 100 mg PO BID@0900,2100 Glucerna Shake 1 can PO HS@2100 Patient Own Pump 0 bag 0.9 % Sodium Chloride [Sodium Chloride Flush] 10 ml IV DIRECTED PRN PRN Reason: IV MAINTENANCE Folic Acid 1 mg PO DAILY Ondansetron [Zofran] 4 mg PO TID PRN PRN Reason: Nausea And Vomiting Acetaminophen Tab [Tylenol] 650 mg PO Q6H PRN PRN Reason: Pain Lipase/Protease/Amylase [Creon Dr 24,000 Unit Capsule] 1 cap PO TID-W/MEALS 0.9 % Sodium Chloride [Sodium Chloride Flush] 10 ml IV Q12H Ipratropium-Albuterol Nebulize [Duoneb 0.5 mg-3 mg/3 ml Soln] 3 ml INHALATION RT-Q4H PRN PRN Reason: Shortness Of Breath Lactulose [Cephulac] 20 gm PO BID PRN PRN Reason: Constipation Ipratropium-Albuterol Nebulize [Duoneb 0.5 mg-3 mg/3 ml Soln] 3 ml INHALATION RT-TID Budesonide-Formot 160-4.5 Mcg [Symbicort 160-4.5 Mcg Inhaler] 2 puff INHALATION RT-BID Discontinued HYDROcodone/APAP 5-325MG [[place] 5-325] 1 tab PO Q6H PRN 5 Days tab PRN Reason: Pain Vancomycin 1,000 mg IV Q12H Discharge Medication List Tamsulosin HCl [Flomax] 0.4 mg PO DAILY 07/16/23 [History] 0.9 % Sodium Chloride [Sodium Chloride Flush] 10 ml IV Q12H 01/22/24 [History] Acetaminophen Tab [Tylenol] 650 mg PO Q6H PRN 01/22/24 [History] Glucerna Shake 1 can PO HS@209901/22/24 [History] Lipase/Protease/Amylase [[place] 24,000 Unit Capsule] 1 cap PO TID-W/MEALS 01/22/24 [History] Omeprazole [PriLOSEC] 20 mg PO BID@899,209901/22/24 [History] Ondansetron [Zofran] 4 mg PO TID PRN 01/22/24 [History] Patient Own Pump 0 bag 01/22/24 [History] amantadine HCL [Amantadine] 100 mg PO BID@899,209901/22/24 [History] 0.9 % Sodium Chloride [Sodium Chloride Flush] 10 ml IV DIRECTED PRN 09/29/24 [History] Budesonide-Formot 160-4.5 Mcg [Symbicort 160-4.5 Mcg Inhaler] 2 puff INHALATION RT-BID 09/29/24 [History] Folic Acid 1 mg PO DAILY 09/29/24 [History] Ipratropium-Albuterol Nebulize [Duoneb 0.5 mg-3 mg/3 ml Soln] 3 ml INHALATION RT-Q4H PRN 09/29/24 [History] Ipratropium-Albuterol Nebulize [Duoneb 0.5 mg-3 mg/3 ml Soln] 3 ml INHALATION RT-TID 09/29/24 [History] Lactulose [Cephulac] 20 gm PO BID PRN 09/29/24 [History] Collagenase [Santyl Ointment] 1 applic TOPICAL DAILY each 10/06/24 [Rx] DAPTOmycin [Cubicin] 411 mg IVPB Q24HR #35 each 10/06/24 [Rx] Furosemide [Lasix] 40 mg PO DAILY #30 tablet 10/06/24 [Rx] HYDROcodone/APAP 5-325MG [[place] 5-325] 1 each PO Q6H PRN #4 tab 10/06/24 [Rx] Heparin Sodium,Porcine (1 ml) [Heparin Sodium] 5,000 unit SQ Q8HR each 10/06/24 [Rx] INSULIN LISPRO (HumaLOG) [HumaLOG] 0 unit SQ ACHS each 10/06/24 [Rx] LORazepam [Ativan] 0.5 mg PO Q4H PRN #4 tab 10/06/24 [Rx] Nystatin 100,000 Unit/ml Susp [Mycostatin Oral Susp] 500,000 unit PO QID ml 10/06/24 [Rx] cefTRIAXone [Rocephin] 1 gm IVPB Q24HR each 10/06/24 [Rx] Follow up Appointment(s)/Referral(s): Kerri Quinones MD [Primary Care Provider] - 1-2 days [facility] [NON-STAFF] - 1 Week
[2024-10-06 16:16] VITALS: BP 120/78; PULSE 85
--- NOTE | 2024-10-06 16:56 | P.PN ---
Subjective Progress Note Date: 10/06/24 Patient is a 54-year-old male with complex past medical history including COPD, nicotine dependence, CVA/TIA, alcohol abuse, recurrent pancreatitis with pancreatic pseudocyst, urinary retention with previous suprapubic catheter, chronic pain with morphine pump. He is currently in some respiratory distress on BiPAP, unable to answer questioning. Reportedly, sent in from [facility] on the [facility]. Recently, underwent right fifth toe amputation for osteomyelitis, and was receiving IV antibiotics. Noted to be hypoxic at the outside facility, with an SpO2 of 66%. He was placed on BiPAP on arrival to the emergency department. Workup in the emergency department including a chest x-ray showing diffuse infi ltrates bilaterally concerning for pulmonary edema versus multifocal pneumonia. CBC: WBC count 15.2, hemoglobin 8.4, platelets 374. CMP: Sodium 139, potassium 4.2, chloride 113, serum bicarb 20, BUN 22, creatinine 2.95, glucose 123. Appears patient is sustained acute kidney injury. He did have a indwelling urinary catheter placed. Ultrasound of kidneys and bladder showing atrophic left kidney with dilated collecting system, chronic. In place mullins catheter with debris. NT proBNP was elevated at 10,100. Procalcitonin 6.62. Placed on empiric antibiotics in the ED in the form of azithromycin and Rocephin. Also, started on Lasix 40 mg twice daily. Most recent available echocardiogram from 2020 estimating preserved left ventricular ejection fraction of 55 to 60% with grade 1 diastolic dysfunction. Patient currently being evaluated on the cardiac stepdown unit. Appears to be anxious in some respiratory distress. He is on BiPAP with settings 12/5 and FiO2 40%. Previous ABGs done on the settings include a PaO2 of 59, pCO2 of 32, pH of 7.41. He is pulling at the mask, we are going to try and transition him over to Airvo. On 10/01/2024, the patient is being seen for a follow-up. The patient remains on Airvo and the patient is currently on 50 L with an FiO2 of 80%. Repeat chest x- ray from today still showing evidence of interstitial edema with pulm vascular congestion, probably slightly worse compared to yesterday. Nevertheless, his respiratory status is stable and the patient denies having any worsening shortness of breath. The patient is being treated for underlying urine tract infection. Urine cultures and blood culture still pending. Meanwhile, he still has a Mullins catheter in place. Repeat creatinine from today is at 3.13, essentially unchanged compared to yesterday. The white cell count remains stable at 16.5 with a hemoglobin 7.5. The patient remains on IV Rocephin. He is also receiving Lasix 40 mg IV every 8 hours. He is producing adequate amount of urine output and the patient has been negative fluid balance of 1.5 L over the past 24 hours. No other new complaints otherwise for now. Manager Business Management on the case. The patient has been taken off vancomycin. Follow-up chest x-ray in AM. Echocardiogram was also completed and the patient was found to have a preserved LV function with an EF of around 55 to 60% with normal LV function, normal RV function without any significant valvular abnormalities. On 10/02/2024, the patient is being seen for a follow-up. The patient remains on Airvo. The patient has a nonoliguric acute kidney injury. The patient continues to develop a good urine output while being on IV Lasix 40 mg every 8 hours. Fluid balance is -1.3 L over the past 24 hours. Slight improvement in oxygenation and the patient remains on Airvo at 40 L with an FiO2 of 40%. Chest x-ray shows interstitial edema/fluid overload. Cultures are still pending. The blood cultures are negative. The white cell count is at 7.9 with a hemoglobin of 6.6 and a platelet count of 290. BUN is 32 with a creatinine of 3.1 and a sodium levels at 139. Vancomycin level was toxic initially at 68 and currently at 47. Meanwhile, the patient remains on IV Rocephin. Able to communicate. No significant complaints. Vascular surgery and infectious disease are also on the case regarding right lower extremity osteomyelitis of the right fifth toe for which the patient had undergone amputation. Mullins catheter is still in place. No evidence of any exogenous bleeding. No evidence of any GI bleeding. On 10/03/2024, the patient is being seen for a follow-up. Since yesterday, the patient is improved and the patient was taken off Airvo and the patient is currently on oxygen which is being delivered at 2 L/min nasal cannula with a pul se ox of 98%. The patient is also producing adequate amount of urine output. Fluid balance is negative and the patient's renal function is improved compared to yesterday. The creatinine is down to 2.9 with a BUN of 32 and sodium is at 137. The white cell count is at 10.2 with a hemoglobin of 9.7. Blood cultures are negative. The patient remains on Lasix 40 mg IV every 8 hours. The patient remains on Symbicort and empiric antibiotic coverage with IV Rocephin. He is also on DuoNeb nebulizer treatments [id number]. No other significant events otherwise for now. The patient is feeling better. No significant shortness of breath on today's evaluation. On 10/04/2024, the patient is being seen for a follow-up. The patient is stable, off Airvo and the patient remains on nasal cannula currently on 2 L. Resting comfortably in bed. And the patient is currently on 2 L of oxygen by nasal cannula. The patient remains on IV Lasix 40 mg every 8 hours. Fluid balance remains negative. Creatinine is improving slowly and the BUN is at 33 with a creatinine of 2.8. Random vancomycin level is still elevated at 40.8. Electrolytes are within normal limits. The patient is afebrile. Blood cultures turned out to be completely negative. Remains on IV Rocephin as an empiric antibiotic coverage. Rest of the medications remain essentially unchanged. Resting comfortably in bed. Denies having any chest pain or shortness of breath. No altered mentation. Chronically debilitated and there is ongoing generalized weakness On 10/05/2024, the patient remained stable on 2 L of oxygen by nasal cannula. The patient was further transition to room air oxygen. Doing well. No specific complaints. No respiratory distress. Creatinine continues to improve slowly and the creatinine is down to 2.7 with a BUN of 34. Sodium is at 135. The white cell count is at 10.12 with a hemoglobin of 9. The fluid balance is negative and the patient has a Mullins catheter in place. Remains on IV Rocephin. Remains on Lasix 40 mg IV every 12 hours. Rest of the medications remain essentially unchanged. The patient is seen today October 06, 2024 in follow-up on the selective care unit. He is currently sitting up in a chair at the bedside. Awake and alert in no acute distress. Maintaining good O2 saturations in the 90s on room air. Chest x-ray showing improvement. Blood culture revealed no growth. White count 9.6. Hemoglobin 8.4. Platelets 325. Sodium 136. Potassium 4.2. Bicarb 27. BUN 35. Creatinine 2.70. Glucose 130. He remains on DuoNeb inhalations, Symbicort. Remains on IV diuretics. Remains on daptomycin and ceftriaxone. Heparin for DVT prophylaxis. Objective - Vital Signs Vital signs: Vital Signs Temp 98.2 F 10/06/24 08:51 Pulse 85 10/06/24 16:15 Resp 16 10/06/24 16:15 BP 120/78 10/06/24 16:15 Pulse Ox 97 10/06/24 16:15 FiO2 40 10/02/24 20:33 Intake & Output 10/05/24 10/06/24 10/06/24 18:59 06:59 18:59 Intake Total 257 20 240 Output Total 1400 380 700 Balance -8996 -360 460 Weight 68.5 kg Intake: IV 20 20 Invasive Line 2 20 20 Oral 237 240 Output: Urine 1400 380 700 Other: Voiding Method Indwelling Catheter Indwelling Catheter Indwelling Catheter # Voids 1 - Exam GENERAL EXAM: Alert, 54-year-old male, up in a chair, on room air, in no acute distress HEAD: Normocephalic and atraumatic EYES: Normal reaction of pupils, equal size. NOSE: Clear with pink turbinates. THROAT: No erythema or exudates. NECK: No masses, no JVD. CHEST: No chest wall deformity. LUNGS: Equal air entry with diffuse coarse rhonchi heard bilaterally and throughout. Improved aeration bilaterally CVS: S1 and S2 normal with no audible murmur, regular rhythm. No extra heart sounds ABDOMEN: No hepatosplenomegaly, active bowel sounds, no guarding or rigidity. SPINE: No scoliosis or deformity SKIN: No rashes CENTRAL NERVOUS SYSTEM: No focal deficits, tone is normal in all 4 extremities. EXTREMITIES: There is no peripheral edema, clubbing, or cyanosis. Peripheral pulses are intact. Previous right fifth great toe amputation. Adherent slough, no significant undermining or tunneling. - Labs CBC & Chem 7: 10/06/24 06:24 10/06/24 06:24 Labs: Abnormal Lab Results - Last 24 Hours (Table) 10/05/24 10/06/24 10/06/24 Range/Units 19:57 06:05 06:24 RBC (4.40-5.60) 10*6/uL Hgb (13.0-17.0) g/dL Hct (39.6-50.0) % MCHC (32.0-37.0) g/dL Immature Gran # (0.00-0.04) 10*3/uL Sodium 136 L (137-145) mmol/L BUN 35 H (9-20) mg/dL Creatinine 2.70 H (0.66-1.25) mg/dL Glucose 130 H (74-99) mg/dL POC Glucose (mg/dL) 217 H 163 H (70-110) mg/dL Calcium 8.2 L (8.4-10.2) mg/dL 10/06/24 10/06/24 Range/Units 06:24 11:31 RBC 2.86 L (4.40-5.60) 10*6/uL Hgb 8.4 L (13.0-17.0) g/dL Hct 26.5 L (39.6-50.0) % MCHC 31.7 L (32.0-37.0) g/dL Immature Gran # 0.21 H (0.00-0.04) 10*3/uL Sodium (137-145) mmol/L BUN (9-20) mg/dL Creatinine (0.66-1.25) mg/dL Glucose (74-99) mg/dL POC Glucose (mg/dL) 185 H (70-110) mg/dL Calcium (8.4-10.2) mg/dL Assessment and Plan Assessment: Acute hypoxemic respiratory failure, initially on BiPAP later on on Airvo and currently weaned back down to room air oxygen. Clinically improving. Chest x- ray improved Dyspnea secondary to above, currently stable, improved Chronic obstructive pulmonary disease, stable Acute kidney injury, nonoliguric acute kidney injury due to vancomycin induced nephrotoxicity and the ultrasound of kidneys and bladder showing atrophic left kidney with dilated collecting system, chronic. Mullins catheter was in place with debris. The patient remains on empiric antibiotic coverage with IV Rocephin. Blood cultures negative. Urine culture has not been performed. Renal function is improved compared to yesterday. Vancomycin level remains elevated, random draw and the patient continues to produce adequate amount of urine output while being on IV Lasix. Chronic urinary retention with previous suprapubic catheter. This was reversed and patient intermittently straight caths. The patient currently has a Mullins catheter in place. Ruled underlying urine tract infection the patient remains on IV Rocephin History osteomyelitis and right fifth toe amputation, vascular surgery and ID are both on the case Acute leukocytosis, improved Chronic anemia, hemoglobin has dropped down to 6.6 and the patient was given a unit of packed RBC. Hemoglobin remained stable History of chronic pancreatitis with pancreatic pseudocyst History of alcohol abuse History of CVA/TIA Chronic pain with morphine pump Tobacco dependence Plan: The patient was seen and evaluated Chest x-ray, labs and medications reviewed Chest x-ray showing improvement Stable and on room air oxygen Currently on ceftriaxone and daptomycin Transition to oral diuretics Plan is to return to [facility] with IV antibiotics I have personally seen and examined the patient, performed the documentation and the assessment and plan as written. Number of minutes spent on the visit: 10 Dictation was produced using [employer] dictation software. Please excuse any grammatical, word or spelling errors.
[2024-10-06 17:03] LABS: Glucose,Whole Blood 176 mg/dL (70-110)
--- NOTE | 2024-10-06 17:07 | P.PN ---
Subjective Progress Note Date: 10/06/24 Principal diagnosis: Reason for follow-up is right diabetic foot infection/osteo and pneumonia Patient is a 54-year-old male with a past medical history significant for COPD diabetes mellitus hypertension hyperlipidemia rheumatoid arthritis in this patient who is status post right fifth toe amputation for a right gangrene done at [facility] patient local culture positive for coagulase- negative staph blood culture negative and the patient [facility] being [facility] to hospital with worsening shortness of breath concerning for pneumonia and also have evidence of acute kidney injury. On today's evaluation that is 10/06/2024, the patient continues to be afebrile, the patient is on room air and breathing comfortably, the Pt denies having any chest pain or cough, the patient denies having any abdominal pain no vomiting or any diarrhea has been reported by the nursing staff. Patient white count is 9.64, creatinine is 2.70 blood culture negative Objective - Vital Signs Vital signs: Vital Signs Temp 98.2 F 10/06/24 08:51 Pulse 85 10/06/24 16:15 Resp 16 10/06/24 16:15 BP 120/78 10/06/24 16:15 Pulse Ox 97 10/06/24 16:15 FiO2 40 10/02/24 20:33 Intake & Output 10/05/24 10/06/24 10/06/24 18:59 06:59 18:59 Intake Total 257 20 240 Output Total 1400 380 700 Balance -3576 -818 -477 Weight 68.5 kg Intake: IV 20 20 Invasive Line 2 20 20 Oral 237 240 Output: Urine 1400 380 700 Other: Voiding Method Indwelling Catheter Indwelling Catheter Indwelling Catheter # Voids 1 - Exam GENERAL DESCRIPTION: Middle-age male lying in bed in no distress RESPIRATORY SYSTEM: Unlabored breathing , decreased breath sounds at bases HEART: S1 S2 regular rate and rhythm , ABDOMEN: Soft , no tenderness EXTREMITIES: Wounds currently dressed - Labs CBC & Chem 7: 10/06/24 06:24 10/06/24 06:24 Labs: Abnormal Lab Results - Last 24 Hours (Table) 10/05/24 10/06/24 10/06/24 Range/Units 19:57 06:05 06:24 RBC (4.40-5.60) 10*6/uL Hgb (13.0-17.0) g/dL Hct (39.6-50.0) % MCHC (32.0-37.0) g/dL Immature Gran # (0.00-0.04) 10*3/uL Sodium 136 L (137-145) mmol/L BUN 35 H (9-20) mg/dL Creatinine 2.70 H (0.66-1.25) mg/dL Glucose 130 H (74-99) mg/dL POC Glucose (mg/dL) 217 H 163 H (70-110) mg/dL Calcium 8.2 L (8.4-10.2) mg/dL 10/06/24 10/06/24 10/06/24 Range/Units 06:24 11:31 16:44 RBC 2.86 L (4.40-5.60) 10*6/uL Hgb 8.4 L (13.0-17.0) g/dL Hct 26.5 L (39.6-50.0) % MCHC 31.7 L (32.0-37.0) g/dL Immature Gran # 0.21 H (0.00-0.04) 10*3/uL Sodium (137-145) mmol/L BUN (9-20) mg/dL Creatinine (0.66-1.25) mg/dL Glucose (74-99) mg/dL POC Glucose (mg/dL) 185 H 176 H (70-110) mg/dL Calcium (8.4-10.2) mg/dL Assessment and Plan (1) Foot osteomyelitis, right Current Visit: Yes Status: Acute Code(s): M86.9 - OSTEOMYELITIS, UNSPECIFIED SNOMED Code(s): 1990722798665440 (2) Pneumonia Current Visit: Yes Status: Acute Code(s): J18.9 - PNEUMONIA, UNSPECIFIED ORGANISM SNOMED Code(s): 456990697 (3) Type 2 diabetes mellitus with foot ulcer Current Visit: Yes Status: Acute Code(s): E11.621 - TYPE 2 DIABETES MELLITUS WITH FOOT ULCER; L97.509 - NON-PRESSURE CHRONIC ULCER OTH PRT UNSP FOOT W UNSP SEVERITY SNOMED Code(s): 4182968677844 Plan: 1patient with right fifth toe wet gangrene and diabetic foot infection status post right fifth toe amputation at the outside facility with the patient was getting vancomycin outpatient setting up with the acute kidney injury secondary to vancomycin culture with coagulase-negative staph blood culture negative. 2-patient with shortness of breath and hypoxemia which is likely multifactorial concern for possible component of pneumonia. 3 patient is afebrile patient kidney function slowly improving, patient to be high risk of continuation of vancomycin on discharge recommending daptomycin 6 mg/kg every 24 to 48hr depending upon his creatinine clearance to finish his course of therapy and end date should be the same as it was for vancomycin initially this has been discussed in detail with the MICROARRAY ANALYST for admitting team working on discharge Dictation was produced using [employer] dictation software. please excuse any grammatical, word or spelling errors. Time with Patient: Less than 30
--- NOTE | 2024-10-10 12:15 | CDI ---
Documentation Clarification Form Date: 10/10/2024 11:34:20 AM From: Racheal Gates RN, CCDS Email: [email or web address] Admit Date: 09/29/2024 11:08:00 AM Patient Name: Nestor Pro Visit Number: [id number] Discharge Date: 10/06/2024 06:03:00 PM ATTENTION: The Clinical Documentation Specialists (CDI) and [facility] Coding Staff appreciate your assistance in clarifying documentation. Please respond to the clarification below the line at the bottom and electronically sign. The CDI & [facility] Coding staff will review the response and follow-up if needed. Please note: Queries are made part of the Legal Health Record. If you have any questions, please contact the author of this message via ITS. Doctor Jamel Diallo The patient had tachycardia, leukocytosis and elevated procalcitonin level. Based on this information and the findings below, is there an additional diagnosis that is clinically appropriate for this patient? History/Risk Factors: alcoholic liver disease, recurrent pancreatitis, HTN, HLD, DM, COPD, CVA with slurred speech and current smoker. Presented from half-way where he is currently recovering from cellulitis and amputation of left toe with antibiotics. Found to be hypoxic and admitted with acute respiratory failure, fluid overload and pneumonia. Clinical Indicators: 09/29-10/06 WBC: 15.17-16.49-7.90-11.43-9.64 09/29-10/06 Neutrophils: 12.66-14.10-6.26-6.73 09/29 Vital signs: HR 122 RR 43 BP low of 86/68 pox 91% 09/29 ABG: pH 7.41 pCO2 32 pO2 59 HCO3 20 09/29 Labs: Cr 2.95 Procalcitonin 6.62 09/29 CXR: Multifocal airspace opacities concerning for pneumonia Discharge summary: "Acute hypoxic respiratory failure requiring BiPAP due to fluid load and multifocal pneumonia." Treatment: IV Azithromycin 500mg daily 09/29-10/01; IVP Rocephin 1000mg x1 on 09/29; IV Rocephin 1gm Q24H 09/29-10/06; IV Vancomycin 1250mg x1 on 09/29 09/30 ID Consult: "patient was tachycardic, mildly hypertensive and hypoxic currently on a BiPAP. Patient did have a white count of 16.49 with a left shift noticed to have a significant worsening of his kidney function with a BUN of 27 creatinine is 3.16. Protein is a 6.6 and Vancomycin random was 68.6. Patient did have a chest x-ray showing multifocal airspace opacity concerning for pneumonia." Is there an additional diagnosis that is clinically appropriate for this patient? [ x ] Sepsis, present on admission [ ] No additional diagnosis/not clinically significant [ ] Other, please specify [ ] Unable to determine SIRS Criteria: 2 or more of the following may indicate SIRS Temperature < 96.8F (36C) or > 101.0F (38.3C) Heart Rate > 90 bpm Respiratory Rate > 20 breaths/min or PaCO2 < 32 mmHg White Blood Cell Count > 12,000 or < 4,000 cells/mm3 or > 10% bands MTDD
== END 2024-10-06 18:03 | DRG 871 ==
LOC: EC 08:25 → 3SCARD 11:08
PROVIDERS: ADMIT Internal Medicine; ATTEND Internal Medicine
PROC: 5A09457 Assistance with Respiratory Ventilation, 24-96 Consecutive Hours, Continuous Positive Airway Pressure (ICD-10-PCS; principal; 2024-09-29)
PROC: 30243P1 Transfusion of Nonautologous Frozen Red Cells into Central Vein, Percutaneous Approach (ICD-10-PCS; 2024-10-02)
DX: A41.9 Sepsis, unspecified organism (principal); I50.33 Acute on chronic diastolic (congestive) heart failure; J18.9 Pneumonia, unspecified organism; J96.01 Acute respiratory failure with hypoxia; N17.0 Acute kidney failure with tubular necrosis; K86.3 Pseudocyst of pancreas; J44.0 Chronic obstructive pulmonary disease with (acute) lower respiratory infection; G20.A1 Parkinson's disease without dyskinesia, without mention of fluctuations; I11.0 Hypertensive heart disease with heart failure; M06.9 Rheumatoid arthritis, unspecified; E11.42 Type 2 diabetes mellitus with diabetic polyneuropathy; F10.10 Alcohol abuse, uncomplicated; F32.A Depression, unspecified; K70.9 Alcoholic liver disease, unspecified; D64.9 Anemia, unspecified; T87.43 Infection of amputation stump, right lower extremity; J44.1 Chronic obstructive pulmonary disease with (acute) exacerbation; K86.1 Other chronic pancreatitis; M86.9 Osteomyelitis, unspecified; N39.0 Urinary tract infection, site not specified; N13.30 Unspecified hydronephrosis; E11.69 Type 2 diabetes mellitus with other specified complication; E11.628 Type 2 diabetes mellitus with other skin complications; E11.621 Type 2 diabetes mellitus with foot ulcer; T36.8X5A Adverse effect of other systemic antibiotics, initial encounter; L03.031 Cellulitis of right toe; G89.29 Other chronic pain; E78.5 Hyperlipidemia, unspecified; K21.9 Gastro-esophageal reflux disease without esophagitis; K44.9 Diaphragmatic hernia without obstruction or gangrene; M54.50 Low back pain, unspecified; R47.81 Slurred speech; I95.9 Hypotension, unspecified; N26.1 Atrophy of kidney (terminal); F41.9 Anxiety disorder, unspecified; N40.1 Benign prostatic hyperplasia with lower urinary tract symptoms; R33.8 Other retention of urine; Z79.51 Long term (current) use of inhaled steroids; Z79.891 Long term (current) use of opiate analgesic; Z79.899 Other long term (current) drug therapy; Z87.891 Personal history of nicotine dependence; Z86.73 Personal history of transient ischemic attack (TIA), and cerebral infarction without residual deficits; Z96.89 Presence of other specified functional implants
CPT/HCPCS: 36415; 36600; 71045; 71046; 76770; 80048; 80053; 80202; 81001; 82565; 82805; 83036; 83605; 83735; 83880; 84145; 84484; 85025; 85610; 85730; 86850; 86900; 86901; 86920; 87040; 93005; 93306; 94640; 94660; 94760; 96365; 96366; 96367; 96375; 96376; 99291